=== PATIENT | male | born 1945 | race African-American/Black ===

== ENCOUNTER → 2017-11-24 12:41 | Outpatient (CLI) | payer MEDICARE, OTHER, SELFPAY ==
[2017-11-24 13:53] LABS: PSA,Total - Annual Screen 0.66 ng/mL (0.00-4.00)
== END ==
PROVIDERS: Family Provider Internal Medicine; PCP Internal Medicine; Visit Provider Urology
DX: Z12.5 Encounter for screening for malignant neoplasm of prostate (principal)
CPT/HCPCS: 36415; 84153; G0103

== ENCOUNTER → 2018-09-14 08:36 | Outpatient (CLI) | payer MEDICARE, OTHER, SELFPAY | PROVIDERS: Family Provider Internal Medicine; PCP Internal Medicine | DX: I12.9 Hypertensive chronic kidney disease with stage 1 through stage 4 chronic kidney disease, or unspecified chronic kidney disease (principal); N18.3 Chronic kidney disease, stage 3 (moderate); D63.1 Anemia in chronic kidney disease; R03.0 Elevated blood-pressure reading, without diagnosis of hypertension | CPT/HCPCS: 93788 ==

== ENCOUNTER → 2018-11-27 | Outpatient (CLI) | payer MEDICARE, OTHER, SELFPAY ==
[2018-04-05 08:04] VITALS: BMI 27.2
[2018-11-27 15:30] LABS: PSA,Total - Annual Screen 1.58 ng/mL (0.00-4.00)
== END | disposition home or self-care (01) ==
LOC: LAB 13:29
PROVIDERS: Family Provider Internal Medicine; PCP Internal Medicine; Referring Provider Urology; Visit Provider Urology
DX: Z12.5 Encounter for screening for malignant neoplasm of prostate (principal)
CPT/HCPCS: 36415; 84153; G0103

== ENCOUNTER → 2019-05-11 09:34 | Outpatient (CLI) | payer MEDICARE, OTHER, SELFPAY ==
[2019-04-26 16:10] VITALS: BMI 28.4
--- NOTE | 2019-05-11 09:36 | ECHOD_ITS ---
Reason For Study: THORACIC AORTIC ANEURYSM Procedure This was a 2D Doppler, Color Flow transthoracic echocardiogram. The study was technically difficult. Exam performed in department. Left Ventricle Normal LV size. Left ventricular systolic function is normal. The estimated ejection fraction is 65 %. No evidence for diastolic dysfunction. No regional wall motion abnormalities noted. Right Ventricle Normal RV size. Normal systolic function. Atria Normal left atrium. Normal right atrium. No doppler evidence for ASD. Mitral Valve There is no mitral annular calcification. Normal mitral valve. Trivial mitral valve insufficiency. Tricuspid Valve Normal tricuspid valve. Trivial tricuspid valve insufficiency. Unable to estimate RV systolic pressure/pulmonary artery pressure due to technically difficult study. Aortic Valve Trisinus/trileaflet aortic valve. Mild diffuse aortic valve thickening. Mild focal aortic valve calcification. Pulmonic Valve The pulmonic valve is not well visualized. Trivial pulmonic valve insufficiency. Great Vessels Normal sized aortic root. Pericardium/Pleural No pericardial effusion. MMode/2D Measurements & Calculations LVIDd: 4.7 cm IVSd: 0.93 cm Ao root diam: 3.6 cm LVIDs: 3.4 cm LVPWd: 0.98 cm RVDd: 2.7 cm FS: 26.9 % LAV(MOD-bp): 52.9 ml LA A4 area: 16.6 cm2 LA dimension(2D): 2.9 cm LAV(MOD-bp) Indexed: 25.4 ml/m2 LAV(MOD-sp2): 46.2 ml LAV(MOD-sp4): 47.5 ml RA A4 area: 14.1 cm2 Time Measurements MV dec time: 0.31 sec Doppler Measurements & Calculations MV E max satish: 60.4 cm/sec Lat Peak E' Satish: 9.6 cm/sec Med Peak E' Satish: 6.6 cm/sec MV A max satish: 88.7 cm/sec E/E' lat: 6.3 E/E' med: 9.1 MV E/A: 0.68 Ao V2 max: 112.5 cm/sec LV V1 max: 88.3 cm/sec PA V2 max: 91.8 cm/sec Ao max P.1 mmHg LV V1 max P.1 mmHg Interpretation Summary The study was technically difficult. Left ventricular systolic function is normal. The estimated ejection fraction is 65 %. Trivial mitral valve insufficiency. Mild diffuse aortic valve thickening. Mild focal aortic valve calcification. Trivial pulmonic valve insufficiency. Unable to estimate RV systolic pressure/pulmonary artery pressure due to technically difficult study. No evidence for diastolic dysfunction. Ordering Physician: Justin Bauman Referring Physician: Jesse Glover Performed By: Alee Almeida, AMBROSIOCS, RVT
--- NOTE | 2019-05-11 09:36 | ART_ITS ---
Reason For Study: Lower extremity numbness Procedure A bilateral lower extremity continuous wave Doppler with analog waveform analysis,segmental pressures,and ankle brachial indexes without exercise. Left Segmental Pressures Left brachial= 173mmHg. Left posterior tibial artery = 219mmHg. Left dorsalis pedis artery = 215mmHg. Left digit = 168 mmHg. The left dorsalis pedis waveforms are triphasic. The left posterior tibial artery waveforms are triphasic. Right Segmental Pressures Right brachial= 168mmHg. Right posterior tibial artery = 222mmHg. Right dorsalis pedis artery = 218mmHg. Right digit = 162 mmHg. The right dorsalis pedis waveforms are triphasic. The right posterior tibial artery waveforms are triphasic. Indices The right ankle brachial index by the dorsalis pedis is 1.26. The right ankle brachial index by the posterior tibial artery is 1.28. The right digital-brachial index is 0.94. The left ankle brachial index by the dorsalis pedis is 1.24. The left ankle brachial index by the posterior tibial artery is 1.27. The left digital-brachial index is 0.97. Interpretation Summary Resting ankle-brachial indices appear bilaterally normal. Normal bilateral lower extremity Doppler waveforms Normal bilateral lower extremity digital brachial indices Ordering Physician: Justin Bauman Referring Physician: Jesse Glover M.D. Performed By: Loly Reeves RVT
== END ==
PROVIDERS: Family Provider Internal Medicine; PCP Internal Medicine; Referring Provider Internal Medicine Cardiovascular Disease; Visit Provider Internal Medicine Cardiovascular Disease
DX: I71.2 Thoracic aortic aneurysm, without rupture (principal); R20.0 Anesthesia of skin; I08.3 Combined rheumatic disorders of mitral, aortic and tricuspid valves; I73.9 Peripheral vascular disease, unspecified
CPT/HCPCS: 93306; 93923

== ENCOUNTER → 2019-05-31 07:21 | Outpatient (CLI) | payer MEDICARE, OTHER, SELFPAY ==
[2019-04-26 16:10] VITALS: BMI 28.4
[2019-05-31 08:35] LABS: Anion Gap 3 (5-15); BUN 42 mg/dL (7-18); BUN/Creat Ratio 18.9 RATIO (10-20); Calcium,Total 9.2 mg/dL (8.5-10.1); Chloride 101 mmol/L (98-107); Creatinine, Serum 2.22 mg/dL (0.70-1.30); EST Glomerular Filtration Rate 31 mL/min (>60); Est Glom Filt Rate - Afr Amer 38 mL/min (>60); Glucose 417 mg/dL (74-106); Potassium 5.1 mmol/L (3.5-5.1); Sodium Level 134 mmol/L (136-145)
== END ==
PROVIDERS: Family Provider Internal Medicine; PCP Internal Medicine; Referring Provider Internal Medicine Cardiovascular Disease; Visit Provider Internal Medicine Cardiovascular Disease
DX: N18.3 Chronic kidney disease, stage 3 (moderate) (principal); I12.9 Hypertensive chronic kidney disease with stage 1 through stage 4 chronic kidney disease, or unspecified chronic kidney disease; I71.2 Thoracic aortic aneurysm, without rupture
CPT/HCPCS: 36415; 80048

== ENCOUNTER 2019-06-15 13:27 | Emergency (ER) | payer MEDICARE, OTHER, SELFPAY ==
[2019-04-26 16:10] VITALS: BMI 28.4
[2019-06-15 13:28] VITALS: BP 160/79; PULSE 66; RESP 17; TEMP 36.6; O2SAT 100; BMI 26.6
[2019-06-15 13:49] VITALS: BP 178/84; PULSE 64
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
--- NOTE | 2019-06-15 14:09 | EKG12_ITS ---
Test Reason : Blood Pressure : / mmHG Vent. Rate : 069 BPM Atrial Rate : 069 BPM P-R Int : 188 ms QRS Dur : 092 ms QT Int : 386 ms P-R-T Axes : 055 -38 019 degrees QTc Int : 413 ms Sinus rhythm with Premature atrial complexes Left axis deviation Minimal voltage criteria for LVH, may be normal variant Abnormal ECG Confirmed by MARIE VOSS, JIM ([id number]), videotape editor PA DODD ([id number]) on 06/18/2019 1:33:33 PM Referred By: FIFI Confirmed By:JIM SALAZAR MD
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
[2019-06-15] MEDS: Losartan Potassium 100 MG Tablet PO (14:51)
[2019-06-15 15:33] VITALS: BP 141/75; RESP 19
== END 2019-06-15 15:34 | disposition home or self-care (01) ==
PROVIDERS: Emergency Provider Emergency Medicine; Family Provider Internal Medicine; PCP Internal Medicine
DX: S44.92XA Injury of unspecified nerve at shoulder and upper arm level, left arm, initial encounter (principal); I12.9 Hypertensive chronic kidney disease with stage 1 through stage 4 chronic kidney disease, or unspecified chronic kidney disease; E11.22 Type 2 diabetes mellitus with diabetic chronic kidney disease; N18.3 Chronic kidney disease, stage 3 (moderate); K21.9 Gastro-esophageal reflux disease without esophagitis; V43.62XA Car passenger injured in collision with other type car in traffic accident, initial encounter; Y93.I9 Activity, other involving external motion; Y92.410 Unspecified street and highway as the place of occurrence of the external cause; Y99.8 Other external cause status
CPT/HCPCS: 71046; 72040; 93005; 99283

== ENCOUNTER → 2019-12-03 07:50 | Outpatient (CLI) | payer MEDICARE, OTHER, SELFPAY ==
[2019-11-08 13:14] VITALS: BMI 28.4
[2019-12-03 08:46] LABS: PSA,Total - Annual Screen 0.58 ng/mL (0.00-4.00)
--- OUTSIDE RECORDS SUMMARY | 2020-04-08 18:30 | XMS RPT_ITS | CCD ---
:1945 External Reference #:[id number] [facility] Care Team Providers Name Role Phone Jesse Glover Primary Care Provider JUAREZ, E Unavailable Unavailable JUAREZ, E Unavailable Unavailable JUAREZ Unavailable Unavailable JUAREZ Unavailable Unavailable Glover Unavailable Unavailable JUAREZ Unavailable Unavailable JUAREZ Unavailable Unavailable Adalberto Unavailable Unavailable Allergies Reported Allergen Reaction(s) Severity Date of Onset Location Cortisone Other: See Comments 05-09-2009 - [facility] CORTISONE, CORTISONE] ([id number] ) Lisinopril Intolerance 01-29-2009 - [facility] Transl[facility]: [facility] LISINOPRIL, ([id number]) LISINOPRIL] Medications Medication Name Sig Date Prescriber Location Aspirin aspirin(ECOTRIN LOW 03-07-2009 Jesse Glover [facility] STRENGTH 81 MG TAB) (15073) Indications: Type II or unspecified type diabetes mellitus without mention of complication, uncontrolled Take one(1) tablet daily. 0 03/07/2009 Active Comment: Take one(1) tablet daily. Blood-Glucose Meter Blood-Glucose Meter 12-25-2019 Jesse Vasquez [facility] monitoring kit monitoring kit Adalberto (26446) Indications: Type 2 DM with CKD stage 3 and hypertension (HCC) Glucose Meter of Choice - Kit - Dx: Type 2 DM - Uncontrolled E11.65 1 Each 0 12/25/2019 Active Blood-Glucose Meter monitoring 12-25-2019 Jesse velasco [facility] (44065) kit Indications: Type 2 DM with CKD stage 3 and hypertension (HCC) Glucose Meter of Choice - Kit - Dx: Type 2 DM - Uncontrolled E11.65 1 Each 0 12/25/2019 Active Blood-Glucose Meter monitoring 12-25-2019 Jesse velasco [facility] (32075) kit Indications: Type 2 DM with CKD stage 3 and hypertension (HCC) Glucose Meter of Choice - Kit - Dx: Type 2 DM - Uncontrolled E11.65 1 Each 0 12/25/2019 Active Blood-Glucose Meter monitoring 12-25-2019 Jesse Evanshomar [facility] (22459) kit Indications: Type 2 DM with CKD stage 3 and hypertension (HCC) Glucose Meter of Choice - Kit - Dx: Type 2 DM - Uncontrolled E11.65 1 Each 0 12/25/2019 Active Blood-Glucose Meter monitoring 12-25-2019 Jesse Evanshomar [facility] (58959) kit Indications: Type 2 DM with CKD stage 3 and hypertension (HCC) Glucose Meter of Choice - Kit - Dx: Type 2 DM - Uncontrolled E11.65 1 Each 0 12/25/2019 Active Blood-Glucose Meter monitoring 12-25-2019 Jesse Lara Rebecca [facility] (81733) kit Indications: Type 2 DM with CKD stage 3 and hypertension ([facility]) Glucose Meter of Choice - Kit - Dx: Type 2 DM - Uncontrolled E11.65 1 Each 0 12/25/2019 Active Blood-Glucose Meter monitoring 12-25-2019 Jesse Evanshomar [facility] (65696) kit Indications: Type 2 DM with CKD stage 3 and hypertension (HCC) Glucose Meter of Choice - Kit - Dx: Type 2 DM - Uncontrolled E11.65 1 Each 0 12/25/2019 Active Blood-Glucose Meter monitoring 12-25-2019 Jesse Fernandez [facility] (47970) kit Indications: Type 2 DM with CKD stage 3 and hypertension (HCC) Glucose Meter of Choice - Kit - Dx: Type 2 DM - Uncontrolled E11.65 1 Each 0 12/25/2019 Active Comment: Glucose Meter of Choice - Ki t - Dx: Type 2 DM - Uncontrolled E11.65 carvedilol carvedilol (COREG) 25 09-20-2019 - [facility] mg tablet Indications: 03-18-2020 Adalberto (4419 5) Screening for genitourinary condition , Hypertension goal BP (blood pressure) , CKD (chronic kidney disease) stage 3, GFR 30-59 ml/min Take 1.5 tablets by mouth twice daily with meals. 270 tablet 3 09/20/2019 Active Comment: Take 1.5 tablets by mouth tw ice daily with meals. Chlorthalidone chlorthalidone 09-20-2019 Jesse Glover [facility] (HYGROTON) 25 mg tablet (441 95) Indications: Screening for genitourinary condition , Hypertension goal BP (blood pressure) , CKD (chronic kidney disease) stage 3, GFR 30-59 ml/min Take 1 tablet by mouth once daily. 90 tablet 3 09/20/2019 Active Comment: Take 1 tablet by mouth once daily. Cholecalciferol cholecalciferol (VITAMIN 07-31-2018 Jaleesa (Fel) [facility] D) 1,000 unit tab tablet Kris (44 195) Indications: Screening for genitourinary condition , CKD (chronic kidney disease) stage 3, GFR 30-59 ml/min , Type 2 DM with CKD stage 3 and hypertension (HCC) , Hypertension goal BP (blood pressure) , Mixed hyperlipidemia , Type 2 diabetes, uncontrolled, with retinopathy (HCC) , Vitreous hemorrhage, unspecified laterality (HCC) , Other proteinuria , BPH with obstruction/lower urinary tract symptoms Take 1 tablet by mouth once daily. 30 tablet 3 07/31/2018 Active Comment: Take 1 tablet by mouth once daily. cloNIDine cloNIDine HCl 09-20-2019 - Jesse Lara [facility] (CATAPRES) 0.2 mg 03-18-2020 Adalberto (13396) tablet Indications: Hypertension goal BP (blood pressure) , Screening for genitourinary condition , CKD (chronic kidney disease) stage 3, GFR 30-59 ml/min Take 1 tablet by mouth twice daily. 180 tablet 3 09/20/2019 Active Comment: Take 1 tablet by mouth twice daily. Diclofenac diclofenac sodium 07-17-2019 Martinez (Pa) [facility] (VOLTAREN) 1 % topical Vetovitz (4419 5) gel Indications: Olecranon bursitis of left elbow Apply 2 g to affected area four times daily. 200 g 1 01/14/2020 Active Comment: Apply 2 g to affected area f our times daily. fluorescein-benoxinate fluorescein-benoxinate 03-06-2020 - Adia [facility] 0.25-0.4 % 1 Drop 0.25-0.4 % 1 Drop 03-06-2020 [facility] (FLURESS) (FLURESS) (96753) Furosemide furosemide (LASIX) 40 mg 12-27-2019 [place] (Phonograph Mechanic) [facility] tablet Take 1 tablet by [facility] mouth once daily. 90 (54870) tablet 3 12/27/2019 Active Comment: Take 1 tablet by mouth once daily. gabapentin gabapentin (NEURONTIN) 09-20-2019 Jesse Glover [facility] 100 mg capsule (39601) Indications: Diabetic polyneuropathy associated with diabetes mellitus due to underlying condition (HCC) Take 2 capsules by mouth daily at bedtime. From podiatry (Dr. Cordon) 0 09/20/2019 Active Comment: Take 2 capsules by mouth tamika ly at bedtime. From podiatry (Dr. Cordon) Insulin Lispro / insulin 75/25 lispro 10-12-2019 Chanda (Regulatory Analyst) [facility] Insulin, protamine/lispro [facility] (07516) Protamine Lispro, units/mL (HUMALOG MIX Human 75-25 KWIKPEN) 100 unit/mL (75-25) inpn Inject 20 units breakfast and 20 units dinner 15 mL 5 10/12/2019 Active Comment: Inject 20 units breakfast an d 20 units dinner latanoprost latanoprost (XALATAN) 05-29-2019 Trudy Wilson [facility] 0.005 % ophthalmic (81070) solution Use 1 Drop in both eyes daily at bedtime. 1 Bottle 1 05/29/2019 Active Comment: Use 1 Drop in both eyes trevin y at bedtime. Linagliptin linaGLIPtin 03-31-2017 - Chanda (Regulatory Analyst) [facility] (TRADJENTA) 5 mg tab 02-05-2020 [facility] (71119) Take 1 tablet by mouth once daily. 30 tablet 5 02/05/2020 Active Comment: Take 1 tablet by mouth once daily. Take 5 mg by mouth once trevin y. Losartan losartan (COZAAR) 100 mg 03-10-2020 Jesse Woodson [facility] tablet TAKE 1 TABLET (56931) EVERY DAY BY MOUTH 30 tablet 03/10/2020 Active losartan (COZAAR) 100 mg tablet 12-04-2018 [place] (Phonograph Mechanic) [facility] (41655) TAKE 1 TABLET EVERY DAY BY MOUTH 30 tablet 11 12/04/2018 Active Comment: TAKE 1 TABLET EVERY DAY BY M OUTH metFORMIN metFORMIN ER 10-12-2019 Chanda (Regulatory Analyst) [facility]UC[facility] 500 mg (4419 5) 24 hr tablet Take 1 tablet by mouth daily with breakfast. 90 tablet 1 10/12/2019 Active Comment: Take 1 tablet by mouth daily with breakfast. NIFEdipine NIFEdipine ER (PROCARDIA 09-20-2019 Jesse rodriguez [facility] XL) 90 mg 24 hr tablet (4419 5) Indications: Screening for genitourinary condition , CKD (chronic kidney disease) stage 3, GFR 30-59 ml/min , Type 2 DM with CKD stage 3 and hypertension (HCC) , Secondary hypertension due to renal disease , Mixed hyperlipidemia Take 1 tablet by mouth once daily. 90 tablet 3 09/20/2019 Active Comment: Take 1 tablet by mouth once daily. Phenylephrine PHENYLephrine 2.5 % 1 03-06-2020 - Adia Yip [facility] Drop (AK-DILATE, 03-06-2020 (23154) PATI-SYNEPHRINE) Pravastatin pravastatin (PRAVACHOL) 07-31-2019 [place] (Phonograph Mechanic) [facility] 80 mg tablet Take 1 Older (66512) tablet by mouth once daily. For cholesterol. 90 tablet 3 07/31/2019 Active Comment: Take 1 tablet by mouth once daily. For cholesterol. proparacaine proparacaine 0.5 % 1 03-06-2020 - Adia Yip [facility] Drop (ALCAINE) 03-06-2020 (54359) Timolol timoloL maleate 05-29-2019 - [facility] (TIMOPTIC) 0.5 % 03-05-2020 (84418) ophthalmic solution INSTILL 1 DROP IN BOTH EYES TWICE A DAY (USE AT 6 A.M. AND 6 P.M.) 25 mL 2 03/05/2020 Active Comment: Use 1 Drop in both eyes twic e daily. Use at 6 AM and 6 PM INSTILL 1 DROP IN BOTH EYES TWICE A DAY (USE AT 6 A.M. AND 6 P.M.) Tropicamide tropicamide 1 % 1 Drop 03-06-2020 - dAia Yip [facility] (MYDRIACYL) 03-06-2020 (22197) Vitamin B 12 cyanocobalamin 01-06-2018 [facility] (VITAMIN B-12) 1,000 [facility] (10607) mcg tab Indications: Diabetic polyneuropathy associated with diabetes mellitus due to underlying condition (HCC) Take 1 tablet by mouth once daily. 0 01/06/2018 Active Comment: Take 1 tablet by mouth once daily. Problems Active Problems Category Problem Name Status Date Location Cataract Bilateral pseudophakia Active 06-22-2019 - [facility] (80382) Deficiency and other Anemia of chronic disease Active [facility] anemia (26920) Diabetes mellitus with Diabetic polyneuropathy Active - [facility] complications (53660) Diabetes mellitus Type 2 diabetes mellitus Active 04-18-2017 - [facility] without complication (15369) Disorders of lipid Hyperlipidemia Active [facility] metabolism (65586) Essential hypertension Hypertensive disorder Active [facility] (40886) 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 - [facility] glaucoma, right eye, severe (63358) stage Hyperplasia of Benign prostatic Active 02-12-2009 - [facility] prostate hypertrophy with outflow (44 195) obstruction Hypertension with Renal hypertension Active 03-28-2018 - [facility] complications and (64190) secondary hypertension Inflammation; Punctate keratitis, Active 06-22-2019 - [facility] infection of eye bilateral (21418) (except that caused by tuberculosis or sexually transmitteddisease) Open wounds of Laceration without foreign Active [facility] extremities body, left lower leg, (95406 ) subsequent encounter Other connective Bursitis of olecranon of Active [facility] tissue disease left elbow (38772) Other diseases of 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 disorders (69037) Other and unspecified Tubular adenoma of Completed 08-10-2016 - [facility] benign neoplasm colon (49510) Unclassified Recheck 08-08-2017 - [facility] (57134) Results Result Name Value Range Unit Interpretation Flag Date Location No panel information on null [facility] (22069) progress on 2020-03 PROGRESS HNO ID: [id number] Normal 04-07-2020 [facility] Author: Michelle William ([place]) [place] Service: ? ([id number]) Author Type: Physician Cattle Sticker Type: Progress Notes Filed: 04/07/2020 10:10 AM Note Text: Michelle William PA-C Department of Orthopaedics Orthopaedics [address] [facility] [address] Dept: [phone] Dept April 07, 2020 CHIEF COMPLAINT: Follow Up of the Left Elbow and 8 weeks 6 d ays post visit olecranon bursitis left elbow Mr. Shirin West Sr. is a 75 year old male he presents with resolved left elbow swelling. Patient states that a few months ago his lef t elbow became very swollen, it was not painful but the swelling was bothersome to him. We had him try some topical tear and an apply a keyla melo sleeve to the elbow. We also discussed having him avoid resting the elbow on hard surfaces. Patient cannot tolerate NSAIDs secondary to c hronic kidney disease. He is a diabetic, his last hemoglobin A1c was 7.0 i n November. He is retired and enjoys being active. ASSESSMENT: M70.22 Olecranon bursitis of left elbow (primary encounter d iagnosis) PLAN: The swelling did resolve with conservative treatment. We discussed only trying the topical if he feels the swelling has returne d. We also discussed signs and symptoms of infection. Follow-up as need ed. Mr. Shirin West Sr. was advised as to contrast therapies an d/or to take analgesics/anti-inflammatories as needed and all contraindic ations were reviewed. OBJECTIVE: Mr. Shirin West Sr. is a pleasant 75 year old in no apparen t distress. Gen:There were no vitals taken for this visit. nl development, non obese, no deformities ENT: Normocephalic, normal hearing, moist mucosa CV: Pulses:Radial= 2+ and symmetric, capillary refill < 2 se cs, no peripheral edema/varicosities Skin: no rash, bruising or lesions. Good turgor. Psych: cooperative and appropriate, alert and oriented x 3, good mood and affect. Musculoskeletal: Left elbow with no swelling in the olecranon bursa. Elbow is nontender to the touch. Patient has full and active range of motion of th e elbow. Sensation is intact. Imaging: Deferred today Supporting Subjective Information Below: Past Surgical History: PAST SURGICAL HISTORY Procedure Laterality Date - AVASTIN (BEVACIZUMAB) 1.25MG INTRAVITREAL INJECTION OD (RI GHT EYE) Right 04/19/2018 LAST - COLONOS W/REM POLYP SNARE 08/04/2016 Repeat 07/2019 - COLONOSCOP W/ OR W/O BRSH SPEC Colonoscopy - COLONOSCOPY W/BX 07/25/13 Repeat due 2016 - EGD W/O OR W/BRUSH/WASH 2002 EGD - EYE SURGERY HX Right 05/02/2018 Pars plana vitrectomy, membrane peel, endolaser, and air flu id exchange right eye. - LAPAROSCOPIC CHOLEYCYSTECTOMY Cholecystectomy, lap - PANRETINAL PHOTOCOAGULATION (PRP) OD (RIGHT EYE) Right 10/2014 LAST ; PRP (Panretinal Photocoagulation) OD - PANRETINAL PHOTOCOAGULATION (PRP) OS (LEFT EYE) Left 07/12 #2 ; PRP (Panretinal Photocoagulation) OS - PROSTATECTOMY SUPRAPUBIC SUBTOTAL for BPH - REMV CATARACT EXTRACAP,INSERT LENS 02/07/2007 Cataract Removal right - REMV CATARACT EXTRACAP,INSERT LENS Left 11/16/2016 Cataract Extraction with PC IOL OS - REPAIR ROTATOR CUFF,ACUTE 2008 Rotator cuff repair, Right - VITRECTOMY,MECHANICAL Left 11/16/2016 PPV/MP/EL/AFX OS Medications: Current Outpatient Medications Medication Sig - losartan (COZAAR) 100 mg tablet TAKE 1 TABLET EVERY DAY BY MOUTH - timoloL maleate (TIMOPTIC) 0.5 % ophthalmic solution INSTI LL 1 DROP IN BOTH EYES TWICE A DAY (USE AT 6 A.M. AND 6 P.M.) - linaGLIPtin (TRADJENTA) 5 mg tab Take 1 tablet by mouth on ce daily. - diclofenac sodium (VOLTAREN) 1 % topical gel Apply 2 g to affected area four times daily. - furosemide (LASIX) 40 mg tablet Take 1 tablet by mouth onc e daily. - blood sugar diagnostic (BLOOD GLUCOSE TEST) test strip Mayela t blood sugar(s) 4 times daily. Dx: Type 2 DM - Uncontrolled Insulin: Yes - Lancets lancets Test blood sugar(s) 4 times daily. Dx: Typ e 2 DM - Uncontrolled Insulin: Yes - insulin 75/25 lispro protamine/lispro units/mL (HUMALOG GA X 75-25 KWIKPEN) 100 unit/mL (75-25) inpn Inject 20 units breakfast and 20 units dinner - metFORMIN ER (GLUCOPHAGE XR) 500 mg 24 hr tablet Take 1 ta blet by mouth daily with breakfast. - NIFEdipine ER (PROCARDIA XL) 90 mg 24 hr tablet Take 1 tab let by mouth once daily. - chlorthalidone (HYGROTON) 25 mg tablet Take 1 tablet by mo uth once daily. - carvedilol (COREG) 25 mg tablet Take 1.5 tablets by mouth twice daily with meals. - cloNIDine HCl (CATAPRES) 0.2 mg tablet Take 1 tablet by mo uth twice daily. - gabapentin (NEURONTIN) 100 mg capsule Take 2 capsules by m outh daily at bedtime. From podiatry (Dr. Cordon) - pravastatin (PRAVACHOL) 80 mg tablet Take 1 tablet by mout h once daily. For cholesterol. - diclofenac sodium (VOLTAREN) 1 % topical gel Apply 2 g to affected area four times daily. - latanoprost (XALATAN) 0.005 % ophthalmic solution Use 1 Dr op in both eyes daily at bedtime. - Insulin Broad Top, Disposable, (1ST TIER UNIFINE PENTIPS) 31 gauge x 3/16 ndle Use as directed 4 times a day. Dx: - cholecalciferol (VITAMIN D) 1,000 unit tab tablet Take 1 t ablet by mouth once daily. - BD INSULIN PEN NEEDLE UF 31 gauge x 5/16 ndle 1 Applicato r as directed. - cyanocobalamin (VITAMIN B-12) 1,000 mcg tab Take 1 tablet by mouth once daily. - aspirin(ECOTRIN LOW STRENGTH 81 MG TAB) Take one(1) tablet daily. - Blood-Glucose Meter monitoring kit Glucose Meter of Choice - Kit - Dx: Type 2 DM - Uncontrolled E11.65 No current facility-administered medications for this visit. Allergies: Cortisone and Zestril [Lisinopril] ROS: General (negative for fatigue, malaise, weight loss/gain) HEENT (negative for headache, earache, recent vision changes , sinus pain, sore throat) Respiratory (no recent shortness of breath, hem optysis) CV (negative for chest tightness, palpitations) Musculoskeletal (see HPI) Psych (no depression, anxiety) This note was partially generated using Virtual Call Center system, and there may be some incorrect words, spellings, and punctu ation that were not noted in checking the note before saving. Michelle William PA-C PROGRESS HNO ID: [id number] Normal 04-07-2020 [facility] Author: Rehana Gaona Ma [place] Service: ? ([id number]) Author Type: ? Type: Progress Notes Filed: 04/07/2020 10:10 AM Note Text: Patient presents with: Left Elbow - Follow Up 8 weeks 6 days post visit olecranon bursitis left elbow AMB ROOMING INTAKE FLOWSHEET DATA Risk Screening Do you have concerns about personal safety or safety in the home?: No Patient states his swelling is down. Has an dallin wrap to wrap his elbow. Has been applying Voltaren gel as needed. cnov on 2020-04-07 CNOV Office Visit (ORTHWS) Normal 04-07-[address] [place] [address] SHIRIN Whipple SR. ([id number]) 1945 M [place] Date Time Provider Department ([id number]) 04/07/20 9:30 AM MICHELLE WILLIAM) SARY During your visit today, we recorded the following informati on about you: Rehana Gaona Ma 04/07/2020 10:10 AM Signed Patient presents with: Left Elbow - Follow Up 8 weeks 6 days post visit olecranon bursitis left elbow AMB ROOMING INTAKE FLOWSHEET DATA Risk Screening Do you have concerns about personal safety or safety in the home?: No Patient states his swelling is down. Has an dallin wrap to wr ap his elbow. Has been applying Voltaren gel as needed. Michelle William PA-C 04/07/2020 10:10 AM Signed Michelle William PA-C Department of Orthopaedics Orthopaedics [address] [facility] [address] Dept: [phone] Dept April 07, 2020 CHIEF COMPLAINT: Follow Up of the Left Elbow and 8 weeks 6 d ays post visit olecranon bursitis left elbow Mr. Shirin West Sr. is a 75 year old male he presents with resolved left elbow swelling. Patient states that a few months ago his left elbo w became very swollen, it was not painful but the swel ling was bothersome to him. We had him try some topical tear and an apply a compression sleeve to the elbow. We also discussed having him avoid resting the elbow on hard surfaces. Patient cannot tolerate NSAIDs secondary to chronic kidney disease. He is a diabetic, his last hemoglobin A1c was 7.0 in November. He is retired and enj oys being active. ASSESSMENT: M70.22 Olecranon bursitis of left elbow (primary encounter d iagnosis) PLAN: The swelling did resolve with conservative treatment. We discussed only trying the topical if he feels the swelling has returned. We also discussed signs and symptoms of infection. Follow-up as needed. Mr. Shirin West Sr. was advised as to contrast therapies an d/or to take analgesics/anti-inflammatories as needed and all contraindic ations were reviewed. OBJECTIVE: Mr. Shirin West Sr. is a pleasant 75 year old in no apparen t distress. Gen:There were no vitals taken for this visit. nl development, non obese, no deformities ENT: Normocephalic, normal hearing, moist mucosa CV: Pulses:Radial= 2+ and symmetric, capillary r efill < 2 secs, no peripheral edema/varicosities Skin: no rash, bruising or lesions. Good turgor. Psych: cooperative and appropriate, alert and oriented x 3, good mood and affect. Musculoskeletal: Left elbow with no swelling in the olecranon bur sa. Elbow is nontender to the touch. Patient has full and active range of luis on of the elbow. Sensation is intact. Imaging: Deferred today Supporting Subjective Information Below: Past Surgical History: PAST SURGICAL HISTORY Procedure Laterality Date - AVASTIN (BEVACIZUMAB) 1.25MG INTRAVITREAL INJECTION OD (RI GHT EYE) Right 04/19/2018 LAST - COLONOS W/REM POLYP SNARE 08/04/2016 Repeat 07/2019 - COLONOSCOP W/ OR W/O BRSH SPEC Colonoscopy - COLONOSCOPY W/BX 07/25/13 Repeat due 2016 - EGD W/O OR W/BRUSH/WASH 2002 EGD - EYE SURGERY HX Right 05/02/2018 Pars plana vitrectomy, membrane peel, endolaser, and air fluid exchange right eye. - LAPAROSCOPIC CHOLEYCYSTECTOMY Cholecystectomy, lap - PANRETINAL PHOTOCOAGULATION (PRP) OD (RIGHT EYE) Right 10/2014 LAST ; PRP (Panretinal Photocoagulation) OD - PANRETINAL PHOTOCOAGULATION (PRP) OS (LEFT EYE) Left 07/12 #2 ; PRP (Panretinal Photocoagulation) OS - PROSTATECTOMY SUPRAPUBIC SUBTOTAL for BPH - REMV CATARACT EXTRACAP,INSERT LENS 02/07/2007 Cataract Removal right - REMV CATARACT EXTRACAP,INSERT LENS Left 11/16/2016 Cataract Extraction with PC IOL OS - REPAIR ROTATOR CUFF,ACUTE 2008 Rotator cuff repair, Right - VITRECTOMY,MECHANICAL Left 11/16/2016 PPV/MP/EL/AFX OS Medications: Current Outpatient Medications Medication Sig - losartan (COZAAR) 100 mg tablet TAKE 1 TABLET EVERY DAY BY MOUTH - timoloL maleate (TIMOPTIC) 0.5 % ophthalmic so lution INSTILL 1 DROP IN BOTH EYES TWICE A DAY (USE AT 6 A.M. AND 6 P.M.) - linaGLIPtin (TRADJENTA) 5 mg tab Take 1 tablet by mouth on ce daily. - diclofenac sodium (VOLTAREN) 1 % topic al gel Apply 2 g to affected area four times daily. - furosemide (LASIX) 40 mg tablet Take 1 tablet by mouth onc e daily. - blood sugar diagnostic (BLOOD GLUCOSE TEST) test strip Test blood sugar(s) 4 times daily. Dx: Type 2 DM - Uncontrolled Insulin: Ye s - Lancets lancets Test blood sugar(s) 4 times daily. Dx: Typ e 2 DM - Uncontrolled Insulin: Yes - insulin 75/25 lispro protamine/lispro units/mL (CRISTINA LOG MIX 75-25 KWIKPEN) 100 unit/mL (75-25) inpn Inject 20 units breakfast and 20 un its dinner - metFORMIN ER (GLUCOPHAGE X R) 500 mg 24 hr tablet Take 1 tablet by mouth daily with breakfast. - NIFEdipine ER (PROCARDIA XL) 90 mg 24 hr table t Take 1 tablet by mouth once daily. - chlorthalidone (HYGROTON) 25 mg tablet Take 1 tablet by mouth once daily. - carvedilol (COREG) 25 mg tablet Take 1.5 tablets by mouth twice daily with meals. - cloNIDine HCl (CATAPRES) 0.2 mg tablet Take 1 tablet by mouth twice daily. - gabapentin (NEURONTIN) 100 mg capsule Take 2 capsules by m outh daily at bedtime. From podiatry (Dr. Cordon) - pravastatin (PRAVACHOL) 80 mg tablet Take 1 ta blet by mouth once daily. For cholesterol. - diclofenac sodium (VOLTAREN) 1 % topic al gel Apply 2 g to affected area four times daily. - latanoprost (XALATAN) 0.005 % ophthalmic solution Use 1 Drop in both eyes daily at bedtime. - Insulin Broad Top, Disposabl e, (1ST TIER UNIFINE PENTIPS) 31 gauge x 3/16 ndle Use as directed 4 times a day. Dx: - cholecalciferol (VITAMIN D ) 1,000 unit tab tablet Take 1 tablet by mouth once daily. - BD INSULIN PEN NEEDLE UF 31 gauge x 5/16 ndle 1 Applicato r as directed. - cyanocobalamin (VITAMIN B-12) 1,000 mcg tab Take 1 tablet by mouth once daily. - aspirin(ECOTRIN LOW STRENGTH 81 MG TAB) Take one(1) tablet daily. - Blood-Glucose Meter monitoring kit Glucose Met er of Choice - Kit - Dx: Type 2 DM - Uncontrolled No current facility-administered medications for this visit. Allergies: Cortisone and Zestril [Lisinopril] ROS: General (negative for fatigue, malaise, weight loss/gain) HEENT (negative for headache, earache, r ecent vision changes, sinus pain, sore throat) Respiratory (no recent shortness of breath, hemoptys is) CV (negative for chest tightness, palpitations) Musculoskeletal (see HPI) Psych (no depression, anxiety) This note was partially generated using GenePeeksnition system, and there may be some incorrect words, spellings, and punctuat ion that were not noted in checking the note before saving. Michelle William PA-C Referring Provider: SELF [[id number]] Allergies As of Date: 04/07/2020 Noted Allergy Reaction CORTISONE 05/09/2009 14 - Other: See Comments Comments: [place] real hot, as if someone threw boiling water o n him ZESTRIL (LISINOPRIL) 01/29/2009 5 - Intolerance Comments: ARF, hypokalemia Date Reviewed: 04/07/2020 Reviewed by: Michelle William (Pa) - Fully Assessed Reason for Visit: 8 weeks 6 days post visit olecranon bursitis left elbow [Oth er] Follow Up [171] Primary Visit Diagnosis:Olecranon bursitis of left elbow [M7 0.22] Prescriptions as of 04/07/2020 Sig: LOSARTAN 100 MG TABLET TAKE 1 TABLET EVERY DAY BY MO* TIMOLOL MALEATE 0.5 % EYE PA* INSTILL 1 DROP IN BOTH EYES T * LINAGLIPTIN 5 MG TABLET Take 1 tablet by mouth once d* DICLOFENAC 1 % TOPICAL GEL Apply 2 g to affected area fo* FUROSEMIDE 40 MG TABLET Take 1 tablet by mouth once d* BLOOD GLUCOSE TEST STRIPS Test blood sugar(s) 4 times d* LANCETS Test blood sugar(s) 4 times d* HUMALOG MIX 75-25 KWIKPEN U-1* Inject 20 units breakfast and * METFORMIN ER 500 MG TABLET,EX* Take 1 tablet by mouth daily * NIFEDIPINE ER 90 MG TABLET,EX* Take 1 tablet by mouth once d * CHLORTHALIDONE 25 MG TABLET Take 1 tablet by mouth once d* CARVEDILOL 25 MG TABLET Take 1.5 tablets by mouth twi* CLONIDINE HCL 0.2 MG TABLET Take 1 tablet by mouth twice * GABAPENTIN 100 MG CAPSULE Take 2 capsules by mouth trevin* PRAVASTATIN 80 MG TABLET Take 1 tablet by mouth once d* DICLOFENAC 1 % TOPICAL GEL Apply 2 g to affected area fo* LATANOPROST 0.005 % EYE DROPS Use 1 Drop in both eyes daily* PEN NEEDLE, DIABETIC 31 GAUGE* Use as directed 4 times a day * CHOLECALCIFEROL (VITAMIN D3) * Take 1 tablet by mouth once d * BD ULTRA-FINE SHORT PEN NEEDL* 1 Applicator as directed. CYANOCOBALAMIN (VIT B-12) 1,0* Take 1 tablet by mouth once d * ECOTRIN LOW STRENGTH 81 MG TA* Take one(1) tablet daily. BLOOD-GLUCOSE METER KIT Glucose Meter of Choice - Kit* Problem List As Of Date 04/07/2020 Noted Resolved Asthma [J45.909] 07/07/2015 Anemia in stage 3 chronic kidney disease (HCC) * Hypertension goal BP (blood pressure) < 140/90 * Hyperlipidemia [E78.5] Polyneuropathy in diabetes ([facility]) [E11.42] 07/27/2005 DIABETES MELLITUS TYPE II UNCONTR UNCOMPL [IMO0*07/27/2005 0 08/09/2008 More... Erectile dysfunction associated with type 2 diaz*07/09/2008 Overweight [E66.3] 07/09/2008 Other specified gastritis without mention of he*09/18/2008 0 07/07/2015 BPH w/o urinary obs/LUTS [N40.0] 09/18/2008 09/08/2011 Background diabetic retinopathy(362.01) ([facility]) [*09/18/2008 0 06/30/2015 Shoulder pain [M25.519] 09/25/2008 03/09/2011 More... 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] 06/22/2019 Pseudophakia of both eyes [Z96.1] 06/22/2019 Type 2 diabetes mellitus with diabetic polyneur*10/11/2019 Type 2 diabetes mellitus with stage 3 chronic k*10/11/2019 Encounter Status:Closed by MICHELLE WILLIAM PA-C on 04/07/20 progress on 2020-03 PROGRESS HNO ID: [id number] Normal 04-01-2020 [facility] Author: Marisa (Network Navigator) Ele Vincent ([id number]) Service: ? Author Type: Insole Lip Turner Type: Progress Notes Filed: 04/01/2020 1:56 PM Note Text: POPULATION HEALTH NAVIGATION OUTREACH Action/FYI ACO Care Gap Outreach LMOVM Care Gaps needed are listed in below note. Encounter closed. Contact made with patient? NO Pt identified by name and : NO Outreach Outcome/Action Unable to reach patient: Left message Reason for Outreach Care Gap Payer: Payor: MEDICARE / Plan: MEDICARE A AND B / Product Type: Med icare / Care Gap Addressed: Controlling Blood Pressure Colorectal Cancer Screening HBA1C Reminder: Please only focus on orders for the HEDIS items ab ove Health Maintenance items due: ADVANCE DIRECTIVE DISCUSSION due on 02/07/2012 SHINGRIX VACCINE(2 of 3) due on 06/10/2014 COLONOSCOPY due on 08/04/2019 INFLUENZA(1) due on 02/26/2020 DIABETIC FOOT EXAM due on 04/28/2020 Referrals: N/A Message Sent to Practice: NO Navigation Signature: SIDNEY Schumacher April 01, 2020 1:53 PM progress on 2020-03 PROGRESS HNO ID: [id number] Normal 03-28-2020 [facility] Author: Marisa ByrneNetwork oRmaine) Ele [place] ([id number]) Service: ? Author Type: Insole Lip Turner Type: Progress Notes Filed: 04/01/2020 1:56 PM Note Text: POPULATION HEALTH NAVIGATION OUTREACH Action/ ACO Care Gap Outreach LMOVM Last PCP visit: 10/04/2019 BP: 156/69 Return visit recommended: 4 mos Next Scheduled PCP visit: 04/22/2020 Care Gaps needed are listed in below note. Contact made with patient? NO Pt identified by name and : NO Outreach Outcome/Action Unable to reach patient: Left message Reason for Outreach Care Gap Payer: Payor: MEDICARE / Plan: MEDICARE A AND B / Product Type: Med icare / Care Gap Addressed: Controlling Blood Pressure Colorectal Cancer Screening HBA1C Reminder: Please only focus on orders for the HEDIS items ab ove Health Maintenance items due: ADVANCE DIRECTIVE DISCUSSION due on 02/07/2012 SHINGRIX VACCINE(2 of 3) due on 06/10/2014 COLONOSCOPY due on 08/04/2019 INFLUENZA(1) due on 02/26/2020 DIABETIC FOOT EXAM due on 04/28/2020 Referrals: N/A Message Sent to Practice: NO Navigation Signature: SIDNEY Schumacher March 28, 2020 3:34 PM cnptoutreach on CNPTOUTREACH Patient Outreach (NETNAV) Normal 1 [place] SHIRIN Whipple SR. ([id number]) 1945 [facility] Date Time Provider Department ([id number]) 03/28/20 MARISA MARLOW)NETTYREL During your visit today, we recorded the following informati on about you: SIDNEY Schumacher 04/01/2020 1:56 PM Nicole d POPULATION HEALTH NAVIGATION OUTREACH Action/I ACO Care Gap Outreach LMOVM Last PCP visit: 10/04/2019 BP: 156/69 Return visit recommended: 4 mos Next Scheduled PCP visit: 04/22/2020 Care Gaps needed are listed in below note. Contact made with patient? NO Pt identified by name and : NO Outreach Outcome/Action Unable to reach patient: Left message Reason for Outreach Care Gap Payer: Payor: MEDICARE / Plan: MEDICARE A AND B / Product Type: Med icare / Care Gap Addressed: Controlling Blood Pressure Colorectal Cancer Screening HBA1C Reminder: Please only focus on orders for the HEDIS items ab ove Health Maintenance items due: ADVANCE DIRECTIVE DISCUSSION due on 02/07/2012 SHINGRIX VACCINE(2 of 3) due on 06/10/2014 COLONOSCOPY due on 08/04/2019 INFLUENZA(1) due on 02/26/2020 DIABETIC FOOT EXAM due on 04/28/2020 Referrals: N/A Message Sent to Practice: NO Navigation Signature: SIDNEY Schumacher March 28, 2020 3:34 PM SIDNEY Schumacher 04/01/2020 1:56 PM Nicole hart POPULATION HEALTH NAVIGATION OUTREACH Action/FYI ACO Care Gap Outreach LMOVM Care Gaps needed are listed in below note. Encounter closed. Contact made with patient? NO Pt identified by name and : NO Outreach Outcome/Action Unable to reach patient: Left message Reason for Outreach Care Gap Payer: Payor: MEDICARE / Plan: MEDICARE A AND B / Product Type: Med icare / Care Gap Addressed: Controlling Blood Pressure Colorectal Cancer Screening HBA1C Reminder: Please only focus on orders for the HEDIS items ab ove Health Maintenance items due: ADVANCE DIRECTIVE DISCUSSION due on 02/07/2012 SHINGRIX VACCINE(2 of 3) due on 06/10/2014 COLONOSCOPY due on 08/04/2019 INFLUENZA(1) due on 02/26/2020 DIABETIC FOOT EXAM due on 04/28/2020 Referrals: N/A Message Sent to Practice: NO Navigation Signature: SIDNEY Schumacher April 01, 2020 1:53 PM Allergies As of Date: 03/28/2020 Noted Allergy Reaction CORTISONE 05/09/2009 14 - Other: See Comments Comments: [place] real hot, as if someone threw boiling water o n him ZESTRIL (LISINOPRIL) 01/29/2009 5 - Intolerance Comments: ARF, hypokalemia Date Reviewed: 03/13/2020 Reviewed by: Semaj Benton Ma - Fully Assessed Reason for Visit: Population Health Navigation Outreach [[id number]] Cmt: VIVEK [place] Prescriptions as of 03/28/2020 Sig: LOSARTAN 100 MG TABLET TAKE 1 TABLET EVERY DAY BY MO* TIMOLOL MALEATE 0.5 % EYE PA* INSTILL 1 DROP IN BOTH EYES T * LINAGLIPTIN 5 MG TABLET Take 1 tablet by mouth once d* DICLOFENAC 1 % TOPICAL GEL Apply 2 g to affected area fo* FUROSEMIDE 40 MG TABLET Take 1 tablet by mouth once d* BLOOD GLUCOSE TEST STRIPS Test blood sugar(s) 4 times d* LANCETS Test blood sugar(s) 4 times d* HUMALOG MIX 75-25 KWIKPEN U-1* Inject 20 units breakfast and * METFORMIN ER 500 MG TABLET,EX* Take 1 tablet by mouth daily * NIFEDIPINE ER 90 MG TABLET,EX* Take 1 tablet by mouth once d * CHLORTHALIDONE 25 MG TABLET Take 1 tablet by mouth once d* GABAPENTIN 100 MG CAPSULE Take 2 capsules by mouth trevin* PRAVASTATIN 80 MG TABLET Take 1 tablet by mouth once d* DICLOFENAC 1 % TOPICAL GEL Apply 2 g to affected area fo* LATANOPROST 0.005 % EYE DROPS Use 1 Drop in both eyes daily* PEN NEEDLE, DIABETIC 31 GAUGE* Use as directed 4 times a day * CHOLECALCIFEROL (VITAMIN D3) * Take 1 tablet by mouth once d * BD ULTRA-FINE SHORT PEN NEEDL* 1 Applicator as directed. CYANOCOBALAMIN (VIT B-12) 1,0* Take 1 tablet by mouth once d * ECOTRIN LOW STRENGTH 81 MG TA* Take one(1) tablet daily. Problem List As Of Date 03/28/2020 Noted Resolved Asthma [J45.909] 07/07/2015 Anemia in stage 3 chronic kidney disease (HCC) * Hypertension goal BP (blood pressure) < 140/90 * Hyperlipidemia [E78.5] Polyneuropathy in diabetes (HCC) [E11.42] 07/27/2005 DIABETES MELLITUS TYPE II UNCONTR UNCOMPL [IMO0*07/27/2005 0 08/09/2008 More... Erectile dysfunction associated with type 2 diaz*07/09/2008 Overweight [E66.3] 07/09/2008 Other specified gastritis without mention of he*09/18/2008 0 07/07/2015 BPH w/o urinary obs/LUTS [N40.0] 09/18/2008 09/08/2011 Background diabetic retinopathy(362.01) (HCC) [*09/18/2008 0 06/30/2015 Shoulder pain [M25.519] 09/25/2008 03/09/2011 More... 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] 06/22/2019 Pseudophakia of both eyes [Z96.1] 06/22/2019 Type 2 diabetes mellitus with diabetic polyneur*10/11/2019 Type 2 diabetes mellitus with stage 3 chronic k*10/11/2019 Encounter Status:Closed by ELE NETWORK NAVIGATORLACIE on 04/01/20 trangn on [facility] Normal 03-17-2020 [place] SHIRIN Whipple SR. ([id number]) 1945 [facility] Date Time Provider Department ([id number]) 03/17/20 JESSE GLOVER During your visit today, we recorded the following informati on about you: Markus Chapito 03/17/2020 8:29 AM Signed Patient called regarding 03/18 appointment with [place]. Donna palma stated he had no knowledge of appointment being moved fro 03/26 with PCP. Patient stated he has an appointment conflict and needed to reschedule 03/18 office visit. This PSS scheduled patient next available with Rosalinda velasco for 04/22. Patient asked if there is any way he could be seen sooner by PCP as he was not informe d of original appointment change. Please advise patient. Roma Hawkins LPN 03/17/2020 3:20 PM Signed Left message for Patient to call office re: appt. Scheduled Patient for 04/12/2020. Roma Hawkins LPN 03/20/2020 4:00 PM Signed Patient has conflict and is not able to come , he has agreed to keep his appt. 04/22/2020. Roma Hawkins LPN Allergies As of Date: 03/17/2020 Noted Allergy Reaction CORTISONE 05/09/2009 14 - Other: See Comments Comments: [place] real hot, as if someone threw boiling water o n him ZESTRIL (LISINOPRIL) 01/29/2009 5 - Intolerance Comments: ARF, hypokalemia Date Reviewed: 03/13/2020 Reviewed by: Semaj Benton Ma - Fully Assessed Reason for Visit: Appointment [186] Prescriptions as of 03/17/2020 Sig: LOSARTAN 100 MG TABLET TAKE 1 TABLET EVERY DAY BY MO* TIMOLOL MALEATE 0.5 % EYE PA* INSTILL 1 DROP IN BOTH EYES T * LINAGLIPTIN 5 MG TABLET Take 1 tablet by mouth once d* DICLOFENAC 1 % TOPICAL GEL Apply 2 g to affected area fo* FUROSEMIDE 40 MG TABLET Take 1 tablet by mouth once d* BLOOD GLUCOSE TEST STRIPS Test blood sugar(s) 4 times d* LANCETS Test blood sugar(s) 4 times d* HUMALOG MIX 75-25 KWIKPEN U-1* Inject 20 units breakfast and * METFORMIN ER 500 MG TABLET,EX* Take 1 tablet by mouth daily * NIFEDIPINE ER 90 MG TABLET,EX* Take 1 tablet by mouth once d * CHLORTHALIDONE 25 MG TABLET Take 1 tablet by mouth once d* CARVEDILOL 25 MG TABLET Take 1.5 tablets by mouth twi* CLONIDINE HCL 0.2 MG TABLET Take 1 tablet by mouth twice * GABAPENTIN 100 MG CAPSULE Take 2 capsules by mouth trevin* PRAVASTATIN 80 MG TABLET Take 1 tablet by mouth once d* DICLOFENAC 1 % TOPICAL GEL Apply 2 g to affected area fo* LATANOPROST 0.005 % EYE DROPS Use 1 Drop in both eyes daily* PEN NEEDLE, DIABETIC 31 GAUGE* Use as directed 4 times a day * CHOLECALCIFEROL (VITAMIN D3) * Take 1 tablet by mouth once d * BD ULTRA-FINE SHORT PEN NEEDL* 1 Applicator as directed. CYANOCOBALAMIN (VIT B-12) 1,0* Take 1 tablet by mouth once d * ECOTRIN LOW STRENGTH 81 MG TA* Take one(1) tablet daily. Problem List As Of Date 03/17/2020 Noted Resolved Asthma [J45.909] 07/07/2015 Anemia in stage 3 chronic kidney disease ([facility]) * Hypertension goal BP (blood pressure) < 140/90 * Hyperlipidemia [E78.5] Polyneuropathy in diabetes ([facility]) [E11.42] 07/27/2005 DIABETES MELLITUS TYPE II UNCONTR UNCOMPL [IMO0*07/27/2005 0 08/09/2008 More... Erectile dysfunction associated with type 2 diaz*07/09/2008 Overweight [E66.3] 07/09/2008 Other specified gastritis without mention of he*09/18/2008 0 07/07/2015 BPH w/o urinary obs/LUTS [N40.0] 09/18/2008 09/08/2011 Background diabetic retinopathy(362.01) ([facility]) [*09/18/2008 0 06/30/2015 Shoulder pain [M25.519] 09/25/2008 03/09/2011 More... 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] 06/22/2019 Pseudophakia of both eyes [Z96.1] 06/22/2019 Type 2 diabetes mellitus with diabetic polyneur*10/11/2019 Type 2 diabetes mellitus with stage 3 chronic k*10/11/2019 Encounter Status:Closed by ROMA HAWKINS LPN on 03/20/20 progress on 2020-02 PROGRESS HNO ID: [id number] Normal 03-13-2020 [place] Author: Brigitte Parks [facility] Service: ? [place] Author Type: Nurse Practitioner ([id number]) Type: Progress Notes Filed: 03/14/2020 4:34 PM Note Text: VASCULAR SURGERY WOUND OSTOMY CONTINENCE CONSULTATION CHIEF COMPLAINT: Wound check and evaluation HISTORY OF PRESENT ILLNESS: LLE laceration PAST MEDICAL HISTORY Diagnosis Date - Anemia in stage 3 chronic kidney disease (HCC) - Background diabetic retinopathy(362.01) 09/18/2008 [facility] eye. - Cataract of left eye - Chronic kidney disease, unspecified - CKD (chronic kidney disease) stage 3, GFR 30-59 ml/min (HC C) 05/26/2017 - Coloboma of iris OD - Depressive disorder, not elsewhere classified - Erectile dysfunction associated with type 2 diabetes isai garcia ([facility]) 07/09/2008 - Esophageal reflux - Essential hypertension, benign - Hyperplasia of prostate - Macular edema dme od - Other and unspecified hyperlipidemia - Other specified anemias - Other specified gastritis without mention of hemorrhage - Personal history of colonic polyps 08/04/2016 - Primary open angle glaucoma OU - Proliferative diabetic retinopathy(362.02) - Pseudophakia of right eye - Shoulder pain 09/25/2008 Right. - Tubular adenoma of colon 08/10/2016 - Type II or unspecified type diabetes mellitus with ophthal bj manifestations, uncontrolled(250.52) 09/18/2008 iddm - Unspecified asthma(493.90) - Vitreous hemorrhage of left eye ([facility]) PAST SURGICAL HISTORY Procedure Laterality Date - AVASTIN (BEVACIZUMAB) 1.25MG INTRAVITREAL INJECTION OD (RI GHT EYE) Right 04/19/2018 LAST - COLONOS W/REM POLYP SNARE 08/04/2016 Repeat 07/2019 - COLONOSCOP W/ OR W/O BRSH SPEC Colonoscopy - COLONOSCOPY W/BX 07/25/13 Repeat due 2016 - EGD W/O OR W/BRUSH/WASH 2002 EGD - EYE SURGERY HX Right 05/02/2018 Pars plana vitrectomy, membrane peel, endolaser, and air flu id exchange right eye. - LAPAROSCOPIC CHOLEYCYSTECTOMY Cholecystectomy, lap - PANRETINAL PHOTOCOAGULATION (PRP) OD (RIGHT EYE) Right 10/2014 LAST ; PRP (Panretinal Photocoagulation) OD - PANRETINAL PHOTOCOAGULATION (PRP) OS (LEFT EYE) Left 07/12 #2 ; PRP (Panretinal Photocoagulation) OS - PROSTATECTOMY SUPRAPUBIC SUBTOTAL for BPH - REMV CATARACT EXTRACAP,INSERT LENS 02/07/2007 Cataract Removal right - REMV CATARACT EXTRACAP,INSERT LENS Left 11/16/2016 Cataract Extraction with PC IOL OS - REPAIR ROTATOR CUFF,ACUTE 2008 Rotator cuff repair, Right - VITRECTOMY,MECHANICAL Left 11/16/2016 PPV/MP/EL/AFX OS ALLERGIES Allergen Reactions - Cortisone Other: See Comments [place] real hot, as if someone threw boiling water on him - Zestril [Lisinopril] Intolerance ARF, hypokalemia Social History Tobacco Use - Smoking status: Former Smoker Types: Cigars - Smokeless tobacco: Never Used - Tobacco comment: quit 40 + years ago Substance Use Topics - Alcohol use: Yes Comment: rarely, 2-3 glasses red wine per month - Drug use: No FAMILY HISTORY Problem Relation Age of Onset - Breast Cancer Mother at age 55 - COPD Father Black lung - Breast Cancer Sister at age 54 - Diabetes Brother - No Ocular Disease No Family History nothing known of MEDICATIONS: losartan (COZAAR) 100 mg tablet TAKE 1 TABLET EVERY DAY BY M OUTH timoloL maleate (TIMOPTIC) 0.5 % ophthalmic solution INSTILL 1 DROP IN BOTH EYES TWICE A DAY (USE AT 6 A.M. AND 6 P.M.) linaGLIPtin (TRADJENTA) 5 mg tab Take 1 tablet by mouth once daily. diclofenac sodium (VOLTAREN) 1 % topical gel Apply 2 g to af fected area four times daily. furosemide (LASIX) 40 mg tablet Take 1 tablet by mouth once daily. blood sugar diagnostic (BLOOD GLUCOSE TEST) test strip Test blood sugar(s) 4 times daily. Dx: Type 2 DM - Uncontrolled E11.65 Insulin: Yes Lancets lancets Test blood sugar(s) 4 times daily. Dx: Type 2 DM - Uncontrolled E11.65 Insulin: Yes insulin 75/25 lispro protamine/lispro units/mL (HUMALOG MIX 75-25 KWIKPEN) 100 unit/mL (75-25) inpn Inject 20 units breakfast and 20 un its dinner metFORMIN ER (GLUCOPHAGE XR) 500 mg 24 hr tablet Take 1 tabl et by mouth daily with breakfast. NIFEdipine ER (PROCARDIA XL) 90 mg 24 hr tablet Take 1 table t by mouth once daily. chlorthalidone (HYGROTON) 25 mg tablet Take 1 tablet by mout h once daily. carvedilol (COREG) 25 mg tablet Take 1.5 tablets by mouth tw ice daily with meals. cloNIDine HCl (CATAPRES) 0.2 mg tablet Take 1 tablet by mout h twice daily. gabapentin (NEURONTIN) 100 mg capsule Take 2 capsules by laura th daily at bedtime. From podiatry (Dr. Cordon) pravastatin (PRAVACHOL) 80 mg tablet Take 1 tablet by mouth once daily. For cholesterol. diclofenac sodium (VOLTAREN) 1 % topical gel Apply 2 g to af fected area four times daily. latanoprost (XALATAN) 0.005 % ophthalmic solution Use 1 Drop in both eyes daily at bedtime. Insulin Broad Top, Disposable, (1ST TIER UNIFINE PENTIPS) 31 g auge x 3/16 ndle Use as directed 4 times a day. Dx: E11.65 cholecalciferol (VITAMIN D) 1,000 unit tab tablet Take 1 tab let by mouth once daily. BD INSULIN PEN NEEDLE UF 31 gauge x 16 ndle 1 Applicator as directed. cyanocobalamin (VITAMIN B-12) 1,000 mcg tab Take 1 tablet by mouth once daily. aspirin(ECOTRIN LOW STRENGTH 81 MG TAB) Take one(1) tablet d aily. Blood-Glucose Meter monitoring kit Glucose Meter of Choice - Kit - Dx: Type 2 DM - Uncontrolled REVIEW OF SYSTEMS 12 organ system review was performed with these findings: No change from prior assessment Exceptions: Integumentary: See below Nutritional Status Appetite: good Diet: Regular Albumin/Prealbumin levels: Lab Results Component Value Date ALB 3.8 (L) 12/19/2019 PHYSICAL EXAMINATION Constitutional: Appears about stated age, well nourished, no weight loss, no fevers and no chills. Psych: Alert and oriented to person, place and time. Intact memory. Normal limit affect, judgement and insight. Respiratory: Symmetrical expansion and effort. No cough, no shortness of breath. Cardiovascular: No chest pain. No edema. Neuro: Normal limit cranial nerves. Musculoskeletal: Normal limit gait. Normal limit symmetry. N ormal limit range of motion. Normal limit muscle strength. Normal limit tone of all extremities. Integumentary: Normal skin color, texture and turgor. No dry , scaly or cracked skin. No ecchymotic areas. No friable skin. No rash, lesions, excoriations or black. No diaphoresis. No jaundice, no ruddi ness, no skin pallor. LLE laceration - healed Eyes: Pupils are equal, round and reactive to light. Ears: Normal limit hearing. Nose/Mouth/Throat: Normal limit external ear canals and TM. Normal limit teeth, lips and gums. Neck: Normal limit appearance and movements. Trachea midline . Breast: Not assessed. Lymphatic: Not assessed. Abdominal: Not assessed. WOUND PAIN: No pain or discomfort DATA REVIEWED: Chart reviewed. ASSESSMENT/PLAN/TREATMENT RECOMMENDATIONS Apply AANDD ointment to scar tissue for protection daily Education provided Treatment demonstrated Questions answered I have spent 15 minutes with the patient for physical and wo und assessment, wound cleaning, dressing demonstration and answe ring questions. More than 50% of the time spent with the patient included education/counselling/coordination of care. Brigitte Parks, PhD, WOCN, CLINICAL NURSE MANAGER cnov on 2020-03-13 CNOV Office Visit (VASSWS) Normal 03-13-20 [place] SHIRIN Whipple SR. ([id number]) 1945 [facility] Date Time Provider Department ([id number]) 03/13/20 11:00 AM BRIGITTE PARKS VASSWS During your visit today, we recorded the following informati on about you: Brigitte Parks, PhD, C[employer]ER [employer]UTIONS SUPERVISOR.CLINICAL NURSE MANAGER 03/14/2020 4:34 PM Signed VASCULAR SURGERY WOUND OSTOMY CONTINENCE CONSULTATION CHIEF COMPLAINT: Wound check and evaluation HISTORY OF PRESENT ILLNESS: LLE laceration PAST MEDICAL HISTORY Diagnosis Date - Anemia in stage 3 chronic kidney disease (HCC) - Background diabetic retinopathy(362.01) 09/18/2008 [facility]. - Cataract of left eye - Chronic kidney disease, unspecified - CKD (chronic kidney disease) stage 3, GFR 30-59 ml/min (HC C) 05/26/2017 - Coloboma of iris OD - Depressive disorder, not elsewhere classified - Erectile dysfunction assoc iated with type 2 diabetes mellitus (HCC) 07/09/2008 - Esophageal reflux - Essential hypertension, benign - Hyperplasia of prostate - Macular edema dme od - Other and unspecified hyperlipidemia - Other specified anemias - Other specified gastritis without mention of hemorrhage - Personal history of colonic polyps 08/04/2016 - Primary open angle glaucoma OU - Proliferative diabetic retinopathy(362.02) - Pseudophakia of right eye - Shoulder pain 09/25/2008 Right. - Tubular adenoma of colon 08/10/2016 - Type II or unspecified typ e diabetes mellitus with ophthalmic manifestations, uncontrolled(250.52) 09/18/2008 [facility] - Unspecified asthma(493.90) - Vitreous hemorrhage of left eye (HCC) PAST SURGICAL HISTORY Procedure Laterality Date - AVASTIN (BEVACIZUMAB) 1.25MG INTRAVITREAL INJECTION OD (RI GHT EYE) Right 04/19/2018 LAST - COLONOS W/REM POLYP SNARE 08/04/2016 Repeat 07/2019 - COLONOSCOP W/ OR W/O BRSH SPEC Colonoscopy - COLONOSCOPY W/BX 07/25/13 Repeat due 2016 - EGD W/O OR W/BRUSH/WASH 2002 EGD - EYE SURGERY HX Right 05/02/2018 Pars plana vitrectomy, membrane peel, endolaser, and air fluid exchange right eye. - LAPAROSCOPIC CHOLEYCYSTECTOMY Cholecystectomy, lap - PANRETINAL PHOTOCOAGULATION (PRP) OD (RIGHT EYE) Right 10/2014 LAST ; PRP (Panretinal Photocoagulation) OD - PANRETINAL PHOTOCOAGULATION (PRP) OS (LEFT EYE) Left 07/12 #2 ; PRP (Panretinal Photocoagulation) OS - PROSTATECTOMY SUPRAPUBIC SUBTOTAL for BPH - REMV CATARACT EXTRACAP,INSERT LENS 02/07/2007 Cataract Removal right - REMV CATARACT EXTRACAP,INSERT LENS Left 11/16/2016 Cataract Extraction with PC IOL OS - REPAIR ROTATOR CUFF,ACUTE 2008 Rotator cuff repair, Right - VITRECTOMY,MECHANICAL Left 11/16/2016 PPV/MP/EL/AFX OS ALLERGIES Allergen Reactions - Cortisone Other: See Comments [place] real hot, as if someone threw boiling water on him - Zestril [Lisinopril] Intolerance ARF, hypokalemia Social History Tobacco Use - Smoking status: Former Smoker Types: Cigars - Smokeless tobacco: Never Used - Tobacco comment: quit 40 + years ago Substance Use Topics - Alcohol use: Yes Comment: rarely, 2-3 glasses red wine per month - Drug use: No FAMILY HISTORY Problem Relation Age of Onset - Breast Cancer Mother at age 55 - COPD Father Black lung - Breast Cancer Sister at age 54 - Diabetes Brother - No Ocular Disease No Family History nothing known of MEDICATIONS: losartan (COZAAR) 100 mg tablet TAKE 1 TABLET EVERY DAY BY M OUTH timoloL maleate (TIMOPTIC) 0.5 % ophthalmic solution INSTI LL 1 DROP IN BOTH EYES TWICE A DAY (USE AT 6 A.M. AND 6 P.M.) linaGLIPtin (TRADJENTA) 5 mg tab Take 1 tablet by mouth once daily. diclofenac sodium (VOLTAREN) 1 % topical gel Apply 2 g to affected area four times daily. furosemide (LASIX) 40 mg tablet Take 1 tablet by mouth once daily. blood sugar diagnostic (BLOOD GLUCOSE TEST) test strip Test blood sugar(s) 4 times daily. Dx: Type 2 DM - Uncontrolled E11.65 Insulin: Ye s Lancets lancets Test blood sugar(s) 4 times daily. Dx: Type 2 DM - Uncontrolled E11.65 Insulin: Yes insulin 75/25 lispro protamine/lispro un its/mL (HUMALOG MIX 75-25 KWIKPEN) 100 unit/mL (75-25) inpn Inject 20 units breakfast and 20 units dinner metFORMIN ER (GLUCOPHAGE XR) 500 mg 24 hr tablet Take 1 tablet by mouth daily with breakfast. NIFEdipine ER (PROCARDIA XL) 90 mg 24 hr tablet Take 1 tab let by mouth once daily. chlorthalidone (HYGROTON) 25 mg tablet Take 1 tablet by mout h once daily. carvedilol (COREG) 25 mg tablet Take 1.5 tablets by mouth tw ice daily with meals. cloNIDine HCl (CATAPRES) 0.2 mg tablet Take 1 tablet by mout h twice daily. gabapentin (NEURONTIN) 100 mg capsule Take 2 capsules by laura th daily at bedtime. From podiatry (Dr. Cordon) pravastatin (PRAVACHOL) 80 mg tablet Take 1 tablet by mout h once daily. For cholesterol. diclofenac sodium (VOLTAREN) 1 % topical gel Apply 2 g to affected area four times daily. latanoprost (XALATAN) 0.005 % ophthalmic solution Use 1 Drop in both eyes daily at bedtime. Insulin Broad Top, Disposable, (1ST TIER UNIFINE P ENTIPS) 31 gauge x 3/16 ndle Use as directed 4 times a day. Dx: E11.65 cholecalciferol (VITAMIN D) 1,000 unit tab table t Take 1 tablet by mouth once daily. BD INSULIN PEN NEEDLE UF 31 gauge x 5/16 ndle 1 Applicator as directed. cyanocobalamin (VITAMIN B-12) 1,000 mcg tab Take 1 tablet by mouth once daily. aspirin(ECOTRIN LOW STRENGTH 81 MG TAB) Take one(1) tablet d aily. Blood-Glucose Meter monitoring kit Glucose Meter of Choice - Kit - Dx: Type 2 DM - Uncontrolled E11.65 REVIEW OF SYSTEMS 12 organ system review was performed with these findings: No change from prior assessment Exceptions: Integumentary: See below Nutritional Status Appetite: good Diet: Regular Albumin/Prealbumin levels: Lab Results Component Value Date ALB 3.8 (L) 12/19/2019 PHYSICAL EXAMINATION Constitutional: Appears about stated age, well nourish ed, no weight loss, no fevers and no chills. Psych: Alert and oriented to person, place and time. Intact memory. Normal limit affect, judgement and insight. Respiratory: Symmetrical exp ansion and effort. No cough, no shortness of breath. Cardiovascular: No chest pain. No edema. Neuro: Normal limit cranial nerves. Musculoskeletal: Normal limit gait. Normal limit symmetry. Normal limit range of motion. Normal limit muscle strength. Normal limit tone of all extremities. Integumentary: Normal skin color, textur e and turgor. No dry, scaly or cracked skin. No ecchymotic areas. No friable skin. No r jesus, lesions, excoriations or black. No diaphoresis. No jaundice, no ruddiness, no skin pa llor. LLE laceration - healed Eyes: Pupils are equal, round and reactive to light. Ears: Normal limit hearing. Nose/Mouth/Throat: Normal li cyrus external ear canals and TM. Normal limit teeth, lips and gums. Neck: Normal limit appearance and movements. Trachea midline . Breast: Not assessed. Lymphatic: Not assessed. Abdominal: Not assessed. WOUND PAIN: No pain or discomfort DATA REVIEWED: Chart reviewed. ASSESSMENT/PLAN/TREATMENT RECOMMENDATIONS Apply AANDD ointment to scar tissue for protection daily Education provided Treatment demonstrated Questions answered I have spent 15 minutes with the patient for physical and wound assessment, wound cleaning, dressing demonstration and answe ring questions. More than 50% of the time spent with the patient inclu ded education/counselling/coordination of care. Brigitte Parks, PhD, WOCN, CLINICAL NURSE MANAGER Referring Provider: BRIGITTE PARKS [[id number]] Allergies As of Date: 03/13/2020 Noted Allergy Reaction CORTISONE 05/09/2009 14 - Other: See Comments Comments: [place] real hot, as if someone threw boiling water o n him ZESTRIL (LISINOPRIL) 01/29/2009 5 - Intolerance Comments: ARF, hypokalemia Date Reviewed: 03/13/2020 Reviewed by: Semaj Benton Ma - Fully Assessed Reason for Visit: Established Patient [175] Primary Visit Diagnosis:Laceration of left lower leg, subseq uent encounter [S81.812D] Prescriptions as of 03/13/2020 Sig: LOSARTAN 100 MG TABLET TAKE 1 TABLET EVERY DAY BY MO* TIMOLOL MALEATE 0.5 % EYE PA* INSTILL 1 DROP IN BOTH EYES T * LINAGLIPTIN 5 MG TABLET Take 1 tablet by mouth once d* DICLOFENAC 1 % TOPICAL GEL Apply 2 g to affected area fo* FUROSEMIDE 40 MG TABLET Take 1 tablet by mouth once d* BLOOD GLUCOSE TEST STRIPS Test blood sugar(s) 4 times d* LANCETS Test blood sugar(s) 4 times d* HUMALOG MIX 75-25 KWIKPEN U-1* Inject 20 units breakfast and * METFORMIN ER 500 MG TABLET,EX* Take 1 tablet by mouth daily * NIFEDIPINE ER 90 MG TABLET,EX* Take 1 tablet by mouth once d * CHLORTHALIDONE 25 MG TABLET Take 1 tablet by mouth once d* CARVEDILOL 25 MG TABLET Take 1.5 tablets by mouth twi* CLONIDINE HCL 0.2 MG TABLET Take 1 tablet by mouth twice * GABAPENTIN 100 MG CAPSULE Take 2 capsules by mouth trevin* PRAVASTATIN 80 MG TABLET Take 1 tablet by mouth once d* DICLOFENAC 1 % TOPICAL GEL Apply 2 g to affected area fo* LATANOPROST 0.005 % EYE DROPS Use 1 Drop in both eyes daily* PEN NEEDLE, DIABETIC 31 GAUGE* Use as directed 4 times a day * CHOLECALCIFEROL (VITAMIN D3) * Take 1 tablet by mouth once d * BD ULTRA-FINE SHORT PEN NEEDL* 1 Applicator as directed. CYANOCOBALAMIN (VIT B-12) 1,0* Take 1 tablet by mouth once d * ECOTRIN LOW STRENGTH 81 MG TA* Take one(1) tablet daily. BLOOD-GLUCOSE METER KIT Glucose Meter of Choice - Kit* Problem List As Of Date 03/13/2020 Noted Resolved Asthma [J45.909] 07/07/2015 Anemia in stage 3 chronic kidney disease (HCC) * Hypertension goal BP (blood pressure) < 140/90 * Hyperlipidemia [E78.5] Polyneuropathy in diabetes (HCC) [E11.42] 07/27/2005 DIABETES MELLITUS TYPE II UNCONTR UNCOMPL [IMO0*07/27/2005 0 08/09/2008 More... Erectile dysfunction associated with type 2 diaz*07/09/2008 Overweight [E66.3] 07/09/2008 Other specified gastritis without mention of he*09/18/2008 0 07/07/2015 BPH w/o urinary obs/LUTS [N40.0] 09/18/2008 09/08/2011 Background diabetic retinopathy(362.01) ([facility]) [*09/18/2008 0 06/30/2015 Shoulder pain [M25.519] 09/25/2008 03/09/2011 More... 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] 06/22/2019 Pseudophakia of both eyes [Z96.1] 06/22/2019 Type 2 diabetes mellitus with diabetic polyneur*10/11/2019 Type 2 diabetes mellitus with stage 3 chronic k*10/11/2019 Encounter Status:Closed by BRIGITTE PARKS CNP on 03/14/20 progress on 2020-02 PROGRESS HNO ID: [id number] Normal 03-06-2020 [place] Author: Adia Yip [facility] Service: ? [place] Author Type: Physician ([id number]) Type: Progress Notes Filed: 03/06/2020 11:37 AM Note Text: 1. Insulin dependent Diabetes Mellitus - Hba1c = Hemoglobin A1C (%) Date Value 12/19/2019 7.0 - Stressed blood pressure and blood sugar control and close follow-up with PCP/pointer helper 2. Q Proliferative diabetic retinopathy Both Eyes - RIGHT: - s/p Panretinal laser photocoagulation #5 (last 08/29/14, 06/10, 10/04/13, 07/05/13, 04/05/13) - s/p Avastin #3?(last 04/19/18, 03/23/18,?02/17/17) - s/p Pars plana vitrectomy/EL (05/02/18) - OCT: atrophy, non foveal edema - Observe - LEFT: - s/p Panretinal laser photocoagulation #2 (07/12/13, 03/29/13 ) - s/p?Phaco/PCIOL/PPV/MP/EL/FAx (11/16/16) - OCT with extrafoveal IRF and ERM - Plan = Observe 4. 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 Wilson, continue timolol and la de souza ------ I have confirmed and edited as necessary the relevant ophtha lmic history, ROS, and the clinical/neuro exam findings as obtained by oth ers. I have seen and examined this patient. I have discussed the case an d the management of this patient's care with the Resident/Fellow, if applicable. I also have reviewed and agree with the assessment and plan as stated above and agree with all of its relevant components on 2019 MD Aditya ByrdHarrington [facility] Hospitaled Chair of Ophthalmology Research Professor of Ophthalmology, [facility] Vitreoretinal Staff, [facility] obsolete on 2020-02 OBSOLETE Refill (OPHTSA) Normal 03-05-2020 Sb burroughs [facility] SHIRIN WEST SR. ([id number]) 1945 [facility] Time Provider Department ([id number]) 03/05/20 XIOMARA LEONARD During your visit today, we recorded the following informati on about you: Allergies As of Date: 03/05/2020 Noted Allergy Reaction CORTISONE 05/09/2009 14 - Other: See Comments Comments: [place] real hot, as if someone threw boiling water o n him ZESTRIL (LISINOPRIL) 01/29/2009 5 - Intolerance Comments: ARF, hypokalemia Date Reviewed: 02/28/2020 Reviewed by: Semaj Benton Ma - Fully Assessed Reason for Visit: Refill Request [94] Order(s):timoloL maleate (TIMOPTIC) 0.5 % ophthalmic solutionINSTILL 1 DROP IN BOTH EYES TWICE A DAY (USE AT 6 A.M. AND 6 P.M.)Disp: 25 mLR fl: 2 Prescriptions as of 03/05/2020 Sig: TIMOLOL MALEATE 0.5 % EYE PA* INSTILL 1 DROP IN BOTH EYES T * LINAGLIPTIN 5 MG TABLET Take 1 tablet by mouth once d* DICLOFENAC 1 % TOPICAL GEL Apply 2 g to affected area fo* FUROSEMIDE 40 MG TABLET Take 1 tablet by mouth once d* BLOOD-GLUCOSE METER KIT Glucose Meter of Choice - Kit* BLOOD GLUCOSE TEST STRIPS Test blood sugar(s) 4 times d* LANCETS Test blood sugar(s) 4 times d* HUMALOG MIX 75-25 KWIKPEN U-1* Inject 20 units breakfast and * METFORMIN ER 500 MG TABLET,EX* Take 1 tablet by mouth daily * NIFEDIPINE ER 90 MG TABLET,EX* Take 1 tablet by mouth once d * CHLORTHALIDONE 25 MG TABLET Take 1 tablet by mouth once d* CARVEDILOL 25 MG TABLET Take 1.5 tablets by mouth twi* CLONIDINE HCL 0.2 MG TABLET Take 1 tablet by mouth twice * GABAPENTIN 100 MG CAPSULE Take 2 capsules by mouth trevin* PRAVASTATIN 80 MG TABLET Take 1 tablet by mouth once d* DICLOFENAC 1 % TOPICAL GEL Apply 2 g to affected area fo* LATANOPROST 0.005 % EYE DROPS Use 1 Drop in both eyes daily* PEN NEEDLE, DIABETIC 31 GAUGE* Use as directed 4 times a day * LOSARTAN 100 MG TABLET TAKE 1 TABLET EVERY DAY BY MO* CHOLECALCIFEROL (VITAMIN D3) * Take 1 tablet by mouth once d * BD ULTRA-FINE SHORT PEN NEEDL* 1 Applicator as directed. CYANOCOBALAMIN (VIT B-12) 1,0* Take 1 tablet by mouth once d * ECOTRIN LOW STRENGTH 81 MG TA* Take one(1) tablet daily. Problem List As Of Date 03/05/2020 Noted Resolved Asthma [J45.909] 07/07/2015 Anemia in stage 3 chronic kidney disease ([facility]) * Hypertension goal BP (blood pressure) < 140/90 * Hyperlipidemia [E78.5] Polyneuropathy in diabetes ([facility]) [E11.42] 07/27/2005 DIABETES MELLITUS TYPE II UNCONTR UNCOMPL [IMO0*07/27/2005 0 08/09/2008 More... Erectile dysfunction associated with type 2 diaz*07/09/2008 Overweight [E66.3] 07/09/2008 Other specified gastritis without mention of he*09/18/2008 0 07/07/2015 BPH w/o urinary obs/LUTS [N40.0] 09/18/2008 09/08/2011 Background diabetic retinopathy(362.01) ([facility]) [*09/18/2008 0 06/30/2015 Shoulder pain [M25.519] 09/25/2008 03/09/2011 More... 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] 06/22/2019 Pseudophakia of both eyes [Z96.1] 06/22/2019 Type 2 diabetes mellitus with diabetic polyneur*10/11/2019 Type 2 diabetes mellitus with stage 3 chronic k*10/11/2019 Prescriptions ordered this encounter Disp Refills Start End TIMOLOL MALEATE 0.5 % EYE DROPS 25 mL 2 03/05/2020 Sig: INSTILL 1 DROP IN BOTH EYES TWICE A DAY (USE AT 6 A.M. AND 6 P.M.) Medications Discontinued During This Encounter Prescriptions - timolol maleate (TIMOPTIC) 0.5 % ophthalmic solution (Disc ontinued) Use 1 Drop in both eyes twice daily. Use at 6 AM and 6 PM Encounter Status:Closed by TRUDY WILSON MD on 03/05/20 progress on 2020-02 PROGRESS HNO ID: [id number] Normal 02-28-2020 [place] Author: Brigitte Parks [facility] Service: ? [place] Author Type: Nurse Practitioner ([id number]) Type: Progress Notes Filed: 02/29/2020 9:58 AM Note Text: VASCULAR SURGERY WOUND OSTOMY CONTINENCE CONSULTATION CHIEF COMPLAINT: Wound check and evaluation HISTORY OF PRESENT ILLNESS: LLE abrasion PAST MEDICAL HISTORY Diagnosis Date - Anemia in stage 3 chronic kidney disease (HCC) - Background diabetic retinopathy(362.01) 09/18/2008 [facility] eye. - Cataract of left eye - Chronic kidney disease, unspecified - CKD (chronic kidney disease) stage 3, GFR 30-59 ml/min (HC C) 05/26/2017 - Coloboma of iris OD - Depressive disorder, not elsewhere classified - Erectile dysfunction associated with type 2 diabetes isai garcia ([facility]) 07/09/2008 - Esophageal reflux - Essential hypertension, benign - Hyperplasia of prostate - Macular edema dme od - Other and unspecified hyperlipidemia - Other specified anemias - Other specified gastritis without mention of hemorrhage - Personal history of colonic polyps 08/04/2016 - Primary open angle glaucoma OU - Proliferative diabetic retinopathy(362.02) - Pseudophakia of right eye - Shoulder pain 09/25/2008 Right. - Tubular adenoma of colon 08/10/2016 - Type II or unspecified type diabetes mellitus with ophthal bj manifestations, uncontrolled(250.52) 09/18/2008 [facility] - Unspecified asthma(493.90) - Vitreous hemorrhage of left eye ([facility]) PAST SURGICAL HISTORY Procedure Laterality Date - AVASTIN (BEVACIZUMAB) 1.25MG INTRAVITREAL INJECTION OD (RI GHT EYE) Right 04/19/2018 LAST - COLONOS W/REM POLYP SNARE 08/04/2016 Repeat 07/2019 - COLONOSCOP W/ OR W/O BRSH SPEC Colonoscopy - COLONOSCOPY W/BX 07/25/13 Repeat due 2016 - EGD W/O OR W/BRUSH/WASH 2002 EGD - EYE SURGERY HX Right 05/02/2018 Pars plana vitrectomy, membrane peel, endolaser, and air flu id exchange right eye. - LAPAROSCOPIC CHOLEYCYSTECTOMY Oct.2002 Cholecystectomy, lap - PANRETINAL PHOTOCOAGULATION (PRP) OD (RIGHT EYE) Right 10/2014 LAST ; PRP (Panretinal Photocoagulation) OD - PANRETINAL PHOTOCOAGULATION (PRP) OS (LEFT EYE) Left 07/12 #2 ; PRP (Panretinal Photocoagulation) OS - PROSTATECTOMY SUPRAPUBIC SUBTOTAL for BPH - REMV CATARACT EXTRACAP,INSERT LENS 02/07/2007 Cataract Removal right - REMV CATARACT EXTRACAP,INSERT LENS Left 11/16/2016 Cataract Extraction with PC IOL OS - REPAIR ROTATOR CUFF,ACUTE 2008 Rotator cuff repair, Right - VITRECTOMY,MECHANICAL Left 11/16/2016 PPV/MP/EL/AFX OS ALLERGIES Allergen Reactions - Cortisone Other: See Comments [place] real hot, as if someone threw boiling water on him - Zestril [Lisinopril] Intolerance ARF, hypokalemia Social History Tobacco Use - Smoking status: Former Smoker Types: Cigars - Smokeless tobacco: Never Used - Tobacco comment: quit 40 + years ago Substance Use Topics - Alcohol use: Yes Comment: rarely, 2-3 glasses red wine per month - Drug use: No FAMILY HISTORY Problem Relation Age of Onset - Breast Cancer Mother at age 55 - COPD Father Black lung - Breast Cancer Sister at age 54 - Diabetes Brother - No Ocular Disease No Family History nothing known of MEDICATIONS: linaGLIPtin (TRADJENTA) 5 mg tab Take 1 tablet by mouth once daily. diclofenac sodium (VOLTAREN) 1 % topical gel Apply 2 g to af fected area four times daily. furosemide (LASIX) 40 mg tablet Take 1 tablet by mouth once daily. Blood-Glucose Meter monitoring kit Glucose Meter of Choice - Kit - Dx: Type 2 DM - Uncontrolled E11.65 blood sugar diagnostic (BLOOD GLUCOSE TEST) test strip Test blood sugar(s) 4 times daily. Dx: Type 2 DM - Uncontrolled E11.65 Insulin: Yes Lancets lancets Test blood sugar(s) 4 times daily. Dx: Type 2 DM - Uncontrolled E11.65 Insulin: Yes insulin 75/25 lispro protamine/lispro units/mL (HUMALOG MIX 75-25 KWIKPEN) 100 unit/mL (75-25) inpn Inject 20 units breakfast and 20 un its dinner metFORMIN ER (GLUCOPHAGE XR) 500 mg 24 hr tablet Take 1 tabl et by mouth daily with breakfast. NIFEdipine ER (PROCARDIA XL) 90 mg 24 hr tablet Take 1 table t by mouth once daily. chlorthalidone (HYGROTON) 25 mg tablet Take 1 tablet by mout h once daily. carvedilol (COREG) 25 mg tablet Take 1.5 tablets by mouth tw ice daily with meals. cloNIDine HCl (CATAPRES) 0.2 mg tablet Take 1 tablet by mout h twice daily. gabapentin (NEURONTIN) 100 mg capsule Take 2 capsules by laura th daily at bedtime. From podiatry (Dr. Cordon) pravastatin (PRAVACHOL) 80 mg tablet Take 1 tablet by mouth once daily. For cholesterol. diclofenac sodium (VOLTAREN) 1 % topical gel Apply 2 g to af fected area four times daily. timolol maleate (TIMOPTIC) 0.5 % ophthalmic solution Use 1 D rop in both eyes twice daily. Use at 6 AM and 6 PM latanoprost (XALATAN) 0.005 % ophthalmic solution Use 1 Drop in both eyes daily at bedtime. Insulin Broad Top, Disposable, (1ST TIER UNIFINE PENTIPS) 31 g auge x 3/16 ndle Use as directed 4 times a day. Dx: E11.65 losartan (COZAAR) 100 mg tablet TAKE 1 TABLET EVERY DAY BY M OUTH cholecalciferol (VITAMIN D) 1,000 unit tab tablet Take 1 tab let by mouth once daily. BD INSULIN PEN NEEDLE UF 31 gauge x 5/16 ndle 1 Applicator as directed. cyanocobalamin (VITAMIN B-12) 1,000 mcg tab Take 1 tablet by mouth once daily. aspirin(ECOTRIN LOW STRENGTH 81 MG TAB) Take one(1) tablet d aily. REVIEW OF SYSTEMS 12 organ system review was performed with these findings: No change from prior assessment Exceptions: Integumentary: See below Nutritional Status Appetite: fair Diet: Regular Albumin/Prealbumin levels: Lab Results Component Value Date ALB 3.8 (L) 12/19/2019 PHYSICAL EXAMINATION Constitutional: Appears about stated age, well nourished, no weight loss, no fevers and no chills. Psych: Alert and oriented to person, place and time. Intact memory. Normal limit affect, judgement and insight. Respiratory: Symmetrical expansion and effort. No cough, no shortness of breath. Cardiovascular: No chest pain. No edema. Neuro: Normal limit cranial nerves. Musculoskeletal: Normal limit gait. Normal limit symmetry. N ormal limit range of motion. Normal limit muscle strength. Normal limit tone of all extremities. Integumentary: Normal skin color, texture and turgor. No dry , scaly or cracked skin. No ecchymotic areas. No friable skin. No rash, lesions, excoriations or black. No diaphoresis. No jaundice, no ruddi ness, no skin pallor. LLE laceration; scar tissue except proximal = 0.2 cm x 0.2 c m x <0.25 cm yellow dry tissue, no odor or drainage, no s/s of infection Eyes: Pupils are equal, round and reactive to light. Ears: Normal limit hearing. Nose/Mouth/Throat: Normal limit external ear canals and TM. Normal limit teeth, lips and gums. Neck: Normal limit appearance and movements. Trachea midline . Breast: Not assessed. Lymphatic: Not assessed. Abdominal: Not assessed. WOUND PAIN: No pain or discomfort DATA REVIEWED: Chart reviewed. ASSESSMENT/PLAN/TREATMENT RECOMMENDATIONS Apply foam dressing to wound base. Change every 3-5 days. Education provided Treatment demonstrated Questions answered I have spent 15 minutes with the patient for physical and wo und assessment, wound cleaning, dressing demonstration and answe ring questions. More than 50% of the time spent with the patient included education/counselling/coordination of care. Brigitte Parks, PhD, WOCN, CLINICAL NURSE MANAGER cnov on 2020-02-28 CNOV Office Visit (VASSWS) Normal 02-28-[address] [place] [address] SHIRIN Whipple SR. ([id number]) 1945 [facility] Date Time Provider Department ([id number]) 02/28/20 8:30 AM BRIGITTE PARKS VASSWS During your visit today, we recorded the following informati on about you: Brigitte Parks, PhD, CUST[employer]ER [employer]UTIONS SUPERVISOR.CLINICAL NURSE MANAGER 02/29/2020 9:58 AM Signed VASCULAR SURGERY WOUND OSTOMY CONTINENCE CONSULTATION CHIEF COMPLAINT: Wound check and evaluation HISTORY OF PRESENT ILLNESS: LLE abrasion PAST MEDICAL HISTORY Diagnosis Date - Anemia in stage 3 chronic kidney disease (HCC) - Background diabetic retinopathy(362.01) 09/18/2008 [facility]. - Cataract of left eye - Chronic kidney disease, unspecified - CKD (chronic kidney disease) stage 3, GFR 30-59 ml/min (HC C) 05/26/2017 - Coloboma of iris OD - Depressive disorder, not elsewhere classified - Erectile dysfunction assoc iated with type 2 diabetes mellitus (HCC) 07/09/2008 - Esophageal reflux - Essential hypertension, benign - Hyperplasia of prostate - Macular edema dme od - Other and unspecified hyperlipidemia - Other specified anemias - Other specified gastritis without mention of hemorrhage - Personal history of colonic polyps 08/04/2016 - Primary open angle glaucoma OU - Proliferative diabetic retinopathy(362.02) - Pseudophakia of right eye - Shoulder pain 09/25/2008 Right. - Tubular adenoma of colon 08/10/2016 - Type II or unspecified typ e diabetes mellitus with ophthalmic manifestations, uncontrolled(250.52) 09/18/2008 [facility] - Unspecified asthma(493.90) - Vitreous hemorrhage of left eye ([facility]) PAST SURGICAL HISTORY Procedure Laterality Date - AVASTIN (BEVACIZUMAB) 1.25MG INTRAVITREAL INJECTION OD (RI GHT EYE) Right 04/19/2018 LAST - COLONOS W/REM POLYP SNARE 08/04/2016 Repeat 07/2019 - COLONOSCOP W/ OR W/O [facility] SPEC Colonoscopy - COLONOSCOPY W/BX 07/25/13 Repeat due 2016 - EGD W/O OR W/BRUSH/WASH 2002 EGD - EYE SURGERY HX Right 05/02/2018 Pars plana vitrectomy, membrane peel, endolaser, and air fluid exchange right eye. - LAPAROSCOPIC CHOLEYCYSTECTOMY Oct.2002 Cholecystectomy, lap - PANRETINAL PHOTOCOAGULATION (PRP) OD (RIGHT EYE) Right 10/2014 LAST ; PRP (Panretinal Photocoagulation) OD - PANRETINAL PHOTOCOAGULATION (PRP) OS (LEFT EYE) Left 07/12 #2 ; PRP (Panretinal Photocoagulation) OS - PROSTATECTOMY SUPRAPUBIC SUBTOTAL for BPH - REMV CATARACT EXTRACAP,INSERT LENS 02/07/2007 Cataract Removal right - REMV CATARACT EXTRACAP,INSERT LENS Left 11/16/2016 Cataract Extraction with PC IOL OS - REPAIR ROTATOR CUFF,ACUTE 2008 Rotator cuff repair, Right - VITRECTOMY,MECHANICAL Left 11/16/2016 PPV/MP/EL/AFX OS ALLERGIES Allergen Reactions - Cortisone Other: See Comments [place] real hot, as if someone threw boiling water on him - Zestril [Lisinopril] Intolerance ARF, hypokalemia Social History Tobacco Use - Smoking status: Former Smoker Types: Cigars - Smokeless tobacco: Never Used - Tobacco comment: quit 40 + years ago Substance Use Topics - Alcohol use: Yes Comment: rarely, 2-3 glasses red wine per month - Drug use: No FAMILY HISTORY Problem Relation Age of Onset - Breast Cancer Mother at age 55 - COPD Father Black lung - Breast Cancer Sister at age 54 - Diabetes Brother - No Ocular Disease No Family History nothing known of MEDICATIONS: linaGLIPtin (TRADJENTA) 5 mg tab Take 1 tablet by mouth once daily. diclofenac sodium (VOLTAREN) 1 % topical gel Apply 2 g to affected area four times daily. furosemide (LASIX) 40 mg tablet Take 1 tablet by mouth once daily. Blood-Glucose Meter monitoring kit Glucose Meter of Choice - Kit - Dx: Type 2 DM - Uncontrolled E11.65 blood sugar diagnostic (BLOOD GLUCOSE TEST) test strip Test blood sugar(s) 4 times daily. Dx: Type 2 DM - Uncontrolled E11.65 Insulin: Ye s Lancets lancets Test blood sugar(s) 4 times daily. Dx: Type 2 DM - Uncontrolled E11.65 Insulin: Yes insulin 75/25 lispro protamine/lispro un its/mL (HUMALOG MIX 75-25 KWIKPEN) 100 unit/mL (75-25) inpn Inject 20 units breakfast and 20 units dinner metFORMIN ER (GLUCOPHAGE XR) 500 mg 24 hr tablet Take 1 tablet by mouth daily with breakfast. NIFEdipine ER (PROCARDIA XL) 90 mg 24 hr tablet Take 1 tab let by mouth once daily. chlorthalidone (HYGROTON) 25 mg tablet Take 1 tablet by mout h once daily. carvedilol (COREG) 25 mg tablet Take 1.5 tablets by mouth tw ice daily with meals. cloNIDine HCl (CATAPRES) 0.2 mg tablet Take 1 tablet by mout h twice daily. gabapentin (NEURONTIN) 100 mg capsule Take 2 capsules by daily at bedtime. From podiatry (Dr. Cordon) pravastatin (PRAVACHOL) 80 mg tablet Take 1 tablet by mout h once daily. For cholesterol. diclofenac sodium (VOLTAREN) 1 % topical gel Apply 2 g to affected area four times daily. timolol maleate (TIMOPTIC) 0.5 % ophthalmic solution U se 1 Drop in both eyes twice daily. Use at 6 AM and 6 PM latanoprost (XALATAN) 0.005 % ophthalmic solution Use 1 Drop in both eyes daily at bedtime. Insulin Broad Top, Disposable, (1ST TIER UNIFINE P ENTIPS) 31 gauge x 3/16 ndle Use as directed 4 times a day. Dx: E11.65 losartan (COZAAR) 100 mg tablet TAKE 1 TABLET EVERY DAY BY M OUTH cholecalciferol (VITAMIN D) 1,000 unit tab table t Take 1 tablet by mouth once daily. BD INSULIN PEN NEEDLE UF 31 gauge x 5/16 ndle 1 Applicator as directed. cyanocobalamin (VITAMIN B-12) 1,000 mcg tab Take 1 tablet by mouth once daily. aspirin(ECOTRIN LOW STRENGTH 81 MG TAB) Take one(1) tablet d aily. REVIEW OF SYSTEMS 12 organ system review was performed with these findings: No change from prior assessment Exceptions: Integumentary: See below Nutritional Status Appetite: fair Diet: Regular Albumin/Prealbumin levels: Lab Results Component Value Date ALB 3.8 (L) 12/19/2019 PHYSICAL EXAMINATION Constitutional: Appears about stated age, well nourish ed, no weight loss, no fevers and no chills. Psych: Alert and oriented to person, place and time. Intact memory. Normal limit affect, judgement and insight. Respiratory: Symmetrical exp ansion and effort. No cough, no shortness of breath. Cardiovascular: No chest pain. No edema. Neuro: Normal limit cranial nerves. Musculoskeletal: Normal limit gait. Normal limit symmetry. Normal limit range of motion. Normal limit muscle strength. Normal limit tone of all extremities. Integumentary: Normal skin color, textur e and turgor. No dry, scaly or cracked skin. No ecchymotic areas. No friable skin. No r jesus, lesions, excoriations or black. No diaphoresis. No jaundice, no ruddiness, no skin pa llor. LLE laceration; scar tissue except proximal = 0.2 cm x 0.2 cm x <0.25 cm yellow dry tissue, no odor or drainage, no s/s of infection Eyes: Pupils are equal, round and reactive to light. Ears: Normal limit hearing. Nose/Mouth/Throat: Normal li cyrus external ear canals and TM. Normal limit teeth, lips and gums. Neck: Normal limit appearance and movements. Trachea midline . Breast: Not assessed. Lymphatic: Not assessed. Abdominal: Not assessed. WOUND PAIN: No pain or discomfort DATA REVIEWED: Chart reviewed. ASSESSMENT/PLAN/TREATMENT RECOMMENDATIONS Apply foam dressing to wound base. Change every 3-5 days. Education provided Treatment demonstrated Questions answered I have spent 15 minutes with the patient for physical and wound assessment, wound cleaning, dressing demonstration and answe ring questions. More than 50% of the time spent with the patient inclu ded education/counselling/coordination of care. Brigitte Parks, PhD, WOCN, CLINICAL NURSE MANAGER Referring Provider: BRIGITTE PARKS [[id number]] Allergies As of Date: 02/28/2020 Noted Allergy Reaction CORTISONE 05/09/2009 14 - Other: See Comments Comments: [place] real hot, as if someone threw boiling water o n him ZESTRIL (LISINOPRIL) 01/29/2009 5 - Intolerance Comments: ARF, hypokalemia Date Reviewed: 02/28/2020 Reviewed by: Semaj Benton Ma - Fully Assessed Reason for Visit: Established Patient [[id number]] Primary Visit Diagnosis:Laceration of left lower leg, subseq uent encounter [S85.761M] Prescriptions as of 02/28/2020 Sig: LINAGLIPTIN 5 MG TABLET Take 1 tablet by mouth once d* DICLOFENAC 1 % TOPICAL GEL Apply 2 g to affected area fo* FUROSEMIDE 40 MG TABLET Take 1 tablet by mouth once d* BLOOD-GLUCOSE METER KIT Glucose Meter of Choice - Kit* BLOOD GLUCOSE TEST STRIPS Test blood sugar(s) 4 times d* LANCETS Test blood sugar(s) 4 times d* HUMALOG MIX 75-25 KWIKPEN U-1* Inject 20 units breakfast and * METFORMIN ER 500 MG TABLET,EX* Take 1 tablet by mouth daily * NIFEDIPINE ER 90 MG TABLET,EX* Take 1 tablet by mouth once d * CHLORTHALIDONE 25 MG TABLET Take 1 tablet by mouth once d* CARVEDILOL 25 MG TABLET Take 1.5 tablets by mouth twi* CLONIDINE HCL 0.2 MG TABLET Take 1 tablet by mouth twice * GABAPENTIN 100 MG CAPSULE Take 2 capsules by mouth trevin* PRAVASTATIN 80 MG TABLET Take 1 tablet by mouth once d* DICLOFENAC 1 % TOPICAL GEL Apply 2 g to affected area fo* TIMOLOL MALEATE 0.5 % EYE PA* Use 1 Drop in both eyes twice * LATANOPROST 0.005 % EYE DROPS Use 1 Drop in both eyes daily* PEN NEEDLE, DIABETIC 31 GAUGE* Use as directed 4 times a day * LOSARTAN 100 MG TABLET TAKE 1 TABLET EVERY DAY BY MO* CHOLECALCIFEROL (VITAMIN D3) * Take 1 tablet by mouth once d * BD ULTRA-FINE SHORT PEN NEEDL* 1 Applicator as directed. CYANOCOBALAMIN (VIT B-12) 1,0* Take 1 tablet by mouth once d * ECOTRIN LOW STRENGTH 81 MG TA* Take one(1) tablet daily. Problem List As Of Date 02/28/2020 Noted Resolved Asthma [J45.909] 07/07/2015 Anemia in stage 3 chronic kidney disease ([facility]) * Hypertension goal BP (blood pressure) < 140/90 * Hyperlipidemia [E78.5] Polyneuropathy in diabetes ([facility]) [E11.42] 07/27/2005 DIABETES MELLITUS TYPE II UNCONTR UNCOMPL [IMO0*07/27/2005 0 08/09/2008 More... Erectile dysfunction associated with type 2 diaz*07/09/2008 Overweight [E66.3] 07/09/2008 Other specified gastritis without mention of he*09/18/2008 0 07/07/2015 BPH w/o urinary obs/LUTS [N40.0] 09/18/2008 09/08/2011 Background diabetic retinopathy(362.01) ([facility]) [*09/18/2008 0 06/30/2015 Shoulder pain [M25.519] 09/25/2008 03/09/2011 More... 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 [place] Author Type: Nurse Practitioner ([id number]) Type: Progress Notes Filed: 02/18/2020 5:50 AM Note Text: VASCULAR SURGERY WOUND OSTOMY CONTINENCE CONSULTATION CHIEF COMPLAINT: Wound check and evaluation HISTORY OF PRESENT ILLNESS: LLE laceration re evaluation PAST MEDICAL HISTORY Diagnosis Date - Anemia in stage 3 chronic kidney disease (HCC) - Background diabetic retinopathy(362.01) 09/18/2008 [facility] eye. - Cataract of left eye - Chronic kidney disease, unspecified - CKD (chronic kidney disease) stage 3, GFR 30-59 ml/min ( C) 05/26/2017 - [place]ob[place] of [place] OD - Depressive disorder, not elsewhere classified - Erectile dysfunction associated with type 2 diabetes isai garcia ([facility]) 07/09/2008 - Esophageal reflux - Essential hypertension, benign - Hyperplasia of prostate - Macular edema dme od - Other and unspecified hyperlipidemia - Other specified anemias - Other specified gastritis without mention of hemorrhage - Personal history of colonic polyps 08/04/2016 - Primary open angle glaucoma OU - Proliferative diabetic retinopathy(362.02) - Pseudophakia of right eye - Shoulder pain 09/25/2008 Right. - Tubular adenoma of colon 08/10/2016 - Type II or unspecified type diabetes mellitus with ophthal bj manifestations, uncontrolled(250.52) 09/18/2008 [facility] - Unspecified asthma(493.90) - Vitreous hemorrhage of left eye (HCC) PAST SURGICAL HISTORY Procedure Laterality Date - AVASTIN (BEVACIZUMAB) 1.25MG INTRAVITREAL INJECTION OD (RI GHT EYE) Right 04/19/2018 LAST - COLONOS W/REM POLYP SNARE 08/04/2016 Repeat 07/2019 - COLONOSCOP W/ OR W/O [facility] SPEC Colonoscopy - COLONOSCOPY W/BX 07/25/13 Repeat due 2016 - EGD W/O OR W/BRUSH/WASH 2002 EGD - EYE SURGERY HX Right 05/02/2018 Pars plana vitrectomy, membrane peel, endolaser, and air flu id exchange right eye. - LAPAROSCOPIC CHOLEYCYSTECTOMY Cholecystectomy, lap - PANRETINAL PHOTOCOAGULATION (PRP) OD (RIGHT EYE) Right 10/2014 LAST ; PRP (Panretinal Photocoagulation) OD - PANRETINAL PHOTOCOAGULATION (PRP) OS (LEFT EYE) Left 07/12 #2 ; PRP (Panretinal Photocoagulation) OS - PROSTATECTOMY SUPRAPUBIC SUBTOTAL for BPH - REMV CATARACT EXTRACAP,INSERT LENS 02/07/2007 Cataract Removal right - REMV CATARACT EXTRACAP,INSERT LENS Left 11/16/2016 Cataract Extraction with PC IOL OS - REPAIR ROTATOR CUFF,ACUTE 2008 Rotator cuff repair, Right - VITRECTOMY,MECHANICAL Left 11/16/2016 PPV/MP/EL/AFX OS ALLERGIES Allergen Reactions - Cortisone Other: See Comments [place] real hot, as if someone threw boiling water on him - Zestril [Lisinopril] Intolerance ARF, hypokalemia Social History Tobacco Use - Smoking status: Former Smoker Types: Cigars - Smokeless tobacco: Never Used - Tobacco comment: quit 40 + years ago Substance Use Topics - Alcohol use: Yes Comment: rarely, 2-3 glasses red wine per month - Drug use: No FAMILY HISTORY Problem Relation Age of Onset - Breast Cancer Mother at age 55 - COPD Father Black lung - Breast Cancer Sister at age 54 - Diabetes Brother - No Ocular Disease No Family History nothing known of MEDICATIONS: linaGLIPtin (TRADJENTA) 5 mg tab Take 1 tablet by mouth once daily. furosemide (LASIX) 40 mg tablet Take 1 tablet by mouth once daily. Blood-Glucose Meter monitoring kit Glucose Meter of Choice - Kit - Dx: Type 2 DM - Uncontrolled E11.65 blood sugar diagnostic (BLOOD GLUCOSE TEST) test strip Test blood sugar(s) 4 times daily. Dx: Type 2 DM - Uncontrolled E11.65 Insulin: Yes Lancets lancets Test blood sugar(s) 4 times daily. Dx: Type 2 DM - Uncontrolled E11. Insulin: Yes insulin 75/25 lispro protamine/lispro units/mL (HUMALOG MIX 75-25 KWIKPEN) 100 unit/mL (75-25) inpn Inject 20 units breakfast and 20 un its dinner metFORMIN ER (GLUCOPHAGE XR) 500 mg 24 hr tablet Take 1 tabl et by mouth daily with breakfast. NIFEdipine ER (PROCARDIA XL) 90 mg 24 hr tablet Take 1 table t by mouth once daily. chlorthalidone (HYGROTON) 25 mg tablet Take 1 tablet by mout h once daily. carvedilol (COREG) 25 mg tablet Take 1.5 tablets by mouth tw ice daily with meals. cloNIDine HCl (CATAPRES) 0.2 mg tablet Take 1 tablet by mout h twice daily. gabapentin (NEURONTIN) 100 mg capsule Take 2 capsules by laura th daily at bedtime. From podiatry (Dr. Cordon) pravastatin (PRAVACHOL) 80 mg tablet Take 1 tablet by mouth once daily. For cholesterol. diclofenac sodium (VOLTAREN) 1 % topical gel Apply 2 g to af fected area four times daily. timolol maleate (TIMOPTIC) 0.5 % ophthalmic solution Use 1 D rop in both eyes twice daily. Use at 6 AM and 6 PM latanoprost (XALATAN) 0.005 % ophthalmic solution Use 1 Drop in both eyes daily at bedtime. Insulin Broad Top, Disposable, (1ST TIER UNIFINE PENTIPS) 31 g auge x 3/16 ndle Use as directed 4 times a day. Dx: E11.65 losartan (COZAAR) 100 mg tablet TAKE 1 TABLET EVERY DAY BY M OUTH cholecalciferol (VITAMIN D) 1,000 unit tab tablet Take 1 tab let by mouth once daily. BD INSULIN PEN NEEDLE UF 31 gauge x 16 ndle 1 Applicator as directed. cyanocobalamin (VITAMIN B-12) 1,000 mcg tab Take 1 tablet by mouth once daily. aspirin(ECOTRIN LOW STRENGTH 81 MG TAB) Take one(1) tablet d aily. diclofenac sodium (VOLTAREN) 1 % topical gel Apply 2 g to af fected area four times daily. REVIEW OF SYSTEMS 12 organ system review was performed with these findings: No change from prior assessment Exceptions: Integumentary: See below Nutritional Status Appetite: good Diet: Regular Albumin/Prealbumin levels: Lab Results Component Value Date ALB 3.8 (L) 12/19/2019 PHYSICAL EXAMINATION Constitutional: Appears about stated age, well nourished, no weight loss, no fevers and no chills. Psych: Alert and oriented to person, place and time. Intact memory. Normal limit affect, judgement and insight. Respiratory: Symmetrical expansion and effort. No cough, no shortness of breath. Cardiovascular: No chest pain. No edema. Neuro: Normal limit cranial nerves. Musculoskeletal: Normal limit gait. Normal limit symmetry. N ormal limit range of motion. Normal limit muscle strength. Normal limit tone of all extremities. Integumentary: Normal skin color, texture and turgor. No dry , scaly or cracked skin. No ecchymotic areas. No friable skin. No rash, lesions, excoriations or black. No diaphoresis. No jaundice, no ruddi ness, no skin pallor. LLE laceration; scar tissue through center proximal = 0.2 cm x 0.3 cm x <0.25 cm yellow dry tissue and distal 0.2 cm x 0.1 cm x 0 cm red dry scab, no odor or drainage, no s/s of infection Eyes: Pupils are equal, round and reactive to light. Ears: Normal limit hearing. Nose/Mouth/Throat: Normal limit external ear canals and TM. Normal limit teeth, lips and gums. Neck: Normal limit appearance and movements. Trachea midline . Breast: Not assessed. Lymphatic: Not assessed. Abdominal: Not assessed. WOUND PAIN: No pain or discomfort DATA REVIEWED: Chart reviewed. ASSESSMENT/PLAN/TREATMENT RECOMMENDATIONS Apply foam dressing to wound base. Change every 3-5 days. Education provided Treatment demonstrated Questions answered I have spent 15 minutes with the patient for physical and wo und assessment, wound cleaning, dressing demonstration and answe ring questions. More than 50% of the time spent with the patient included education/counselling/coordination of care. Brigitte Parks, PhD, WOCN, CLINICAL NURSE MANAGER cnov on 2020-02-14 CNOV Office Visit (VASSWS) Normal 02-14-20 [place] SHIRIN Whipple SR. ([id number]) 1945 M [place] Date Time Provider Department ([id number]) 02/14/20 8:30 AM BRIGITTE PARKS VASSWS During your visit today, we recorded the following informati on about you: Brigitte Parks, PhD, CUSTOMER [employer]UTIONS SUPERVISOR.CLINICAL NURSE MANAGER 02/18/2020 5:50 AM Signed VASCULAR SURGERY WOUND OSTOMY CONTINENCE CONSULTATION CHIEF COMPLAINT: Wound check and evaluation HISTORY OF PRESENT ILLNESS: LLE laceration re evaluation PAST MEDICAL HISTORY Diagnosis Date - Anemia in stage 3 chronic kidney disease (HCC) - Background diabetic retinopathy(362.01) 09/18/2008 [facility] eye. - Cataract of left eye - Chronic kidney disease, unspecified - CKD (chronic kidney disease) stage 3, GFR 30-59 ml/min (HC C) 05/26/2017 - [place]oboma of [place] OD - Depressive disorder, not elsewhere classified - Erectile dysfunction assoc iated with type 2 diabetes mellitus (HCC) 07/09/2008 - Esophageal reflux - Essential hypertension, benign - Hyperplasia of prostate - Macular edema dme od - Other and unspecified hyperlipidemia - Other specified anemias - Other specified gastritis without mention of hemorrhage - Personal history of colonic polyps 08/04/2016 - Primary open angle glaucoma OU - Proliferative diabetic retinopathy(362.02) - Pseudophakia of right eye - Shoulder pain 09/25/2008 Right. - Tubular adenoma of colon 08/10/2016 - Type II or unspecified typ e diabetes mellitus with ophthalmic manifestations, uncontrolled(250.52) 09/18/2008 [facility] - Unspecified asthma(493.90) - Vitreous hemorrhage of left eye (HCC) PAST SURGICAL HISTORY Procedure Laterality Date - AVASTIN (BEVACIZUMAB) 1.25MG INTRAVITREAL INJECTION OD (RI GHT EYE) Right 04/19/2018 LAST - COLONOS W/REM POLYP SNARE 08/04/2016 Repeat 07/2019 - COLONOSCOP W/ OR W/O [facility] SPEC Colonoscopy - COLONOSCOPY W/BX 07/25/13 Repeat due 2016 - EGD W/O OR W/BRUSH/WASH 2002 EGD - EYE SURGERY HX Right 05/02/2018 Pars plana vitrectomy, membrane peel, endolaser, and air fluid exchange right eye. - LAPAROSCOPIC CHOLEYCYSTECTOMY Cholecystectomy, lap - PANRETINAL PHOTOCOAGULATION (PRP) OD (RIGHT EYE) Right 10/2014 LAST ; PRP (Panretinal Photocoagulation) OD - PANRETINAL PHOTOCOAGULATION (PRP) OS (LEFT EYE) Left 07/12 #2 ; PRP (Panretinal Photocoagulation) OS - PROSTATECTOMY SUPRAPUBIC SUBTOTAL for BPH - REMV CATARACT EXTRACAP,INSERT LENS 02/07/2007 Cataract Removal right - REMV CATARACT EXTRACAP,INSERT LENS Left 11/16/2016 Cataract Extraction with PC IOL OS - REPAIR ROTATOR CUFF,ACUTE 2008 Rotator cuff repair, Right - VITRECTOMY,MECHANICAL Left 11/16/2016 PPV/MP/EL/AFX OS ALLERGIES Allergen Reactions - Cortisone Other: See Comments [place] real hot, as if someone threw boiling water on him - Zestril [Lisinopril] Intolerance ARF, hypokalemia Social History Tobacco Use - Smoking status: Former Smoker Types: Cigars - Smokeless tobacco: Never Used - Tobacco comment: quit 40 + years ago Substance Use Topics - Alcohol use: Yes Comment: rarely, 2-3 glasses red wine per month - Drug use: No FAMILY HISTORY Problem Relation Age of Onset - Breast Cancer Mother at age 55 - COPD Father Black lung - Breast Cancer Sister at age 54 - Diabetes Brother - No Ocular Disease No Family History nothing known of MEDICATIONS: linaGLIPtin (TRADJENTA) 5 mg tab Take 1 tablet by mouth once daily. furosemide (LASIX) 40 mg tablet Take 1 tablet by mouth once daily. Blood-Glucose Meter monitoring kit Glucose Meter of Choice - Kit - Dx: Type 2 DM - Uncontrolled E11.65 blood sugar diagnostic (BLOOD GLUCOSE TEST) test strip Test blood sugar(s) 4 times daily. Dx: Type 2 DM - Uncontrolled E11.65 Insulin: Ye s Lancets lancets Test blood sugar(s) 4 times daily. Dx: Type 2 DM - Uncontrolled E11.65 Insulin: Yes insulin 75/25 lispro protamine/lispro un its/mL (HUMALOG MIX 75-25 KWIKPEN) 100 unit/mL (75-25) inpn Inject 20 units breakfast and 20 units dinner metFORMIN ER (GLUCOPHAGE XR) 500 mg 24 hr tablet Take 1 tablet by mouth daily with breakfast. NIFEdipine ER (PROCARDIA XL) 90 mg 24 hr tablet Take 1 tab let by mouth once daily. chlorthalidone (HYGROTON) 25 mg tablet Take 1 tablet by mout h once daily. carvedilol (COREG) 25 mg tablet Take 1.5 tablets by mouth tw ice daily with meals. cloNIDine HCl (CATAPRES) 0.2 mg tablet Take 1 tablet by mout h twice daily. gabapentin (NEURONTIN) 100 mg capsule Take 2 capsules by laura th daily at bedtime. From podiatry (Dr. Cordon) pravastatin (PRAVACHOL) 80 mg tablet Take 1 tablet by mout h once daily. For cholesterol. diclofenac sodium (VOLTAREN) 1 % topical gel Apply 2 g to affected area four times daily. timolol maleate (TIMOPTIC) 0.5 % ophthalmic solution U se 1 Drop in both eyes twice daily. Use at 6 AM and 6 PM latanoprost (XALATAN) 0.005 % ophthalmic solution Use 1 Drop in both eyes daily at bedtime. Insulin Broad Top, Disposable, (1ST TIER UNIFINE P ENTIPS) 31 gauge x 3/16 ndle Use as directed 4 times a day. Dx: E11.65 losartan (COZAAR) 100 mg tablet TAKE 1 TABLET EVERY DAY BY M OUTH cholecalciferol (VITAMIN D) 1,000 unit tab table t Take 1 tablet by mouth once daily. BD INSULIN PEN NEEDLE UF 31 gauge x 5/16 ndle 1 Applicator as directed. cyanocobalamin (VITAMIN B-12) 1,000 mcg tab Take 1 tablet by mouth once daily. aspirin(ECOTRIN LOW STRENGTH 81 MG TAB) Take one(1) tablet d aily. diclofenac sodium (VOLTAREN) 1 % topical gel Apply 2 g to affected area four times daily. REVIEW OF SYSTEMS 12 organ system review was performed with these findings: No change from prior assessment Exceptions: Integumentary: See below Nutritional Status Appetite: good Diet: Regular Albumin/Prealbumin levels: Lab Results Component Value Date ALB 3.8 (L) 12/19/2019 PHYSICAL EXAMINATION Constitutional: Appears about stated age, well nourish ed, no weight loss, no fevers and no chills. Psych: Alert and oriented to person, place and time. Intact memory. Normal limit affect, judgement and insight. Respiratory: Symmetrical exp ansion and effort. No cough, no shortness of breath. Cardiovascular: No chest pain. No edema. Neuro: Normal limit cranial nerves. Musculoskeletal: Normal limit gait. Normal limit symmetry. Normal limit range of motion. Normal limit muscle strength. Normal limit tone of all extremities. Integumentary: Normal skin color, textur e and turgor. No dry, scaly or cracked skin. No ecchymotic areas. No friable skin. No r jesus, lesions, excoriations or black. No diaphoresis. No jaundice, no ruddiness, no skin pa llor. LLE laceration; scar tissue through center proxi mal = 0.2 cm x 0.3 cm x <0.25 cm yellow dry tissue and dis jagjit 0.2 cm x 0.1 cm x 0 cm red dry scab, no odor or drainage, no s/s of infection Eyes: Pupils are equal, round and reactive to light. Ears: Normal limit hearing. Nose/Mouth/Throat: Normal li cyrus external ear canals and TM. Normal limit teeth, lips and gums. Neck: Normal limit appearance and movements. Trachea midline . Breast: Not assessed. Lymphatic: Not assessed. Abdominal: Not assessed. WOUND PAIN: No pain or discomfort DATA REVIEWED: Chart reviewed. ASSESSMENT/PLAN/TREATMENT RECOMMENDATIONS Apply foam dressing to wound base. Change every 3-5 days. Education provided Treatment demonstrated Questions answered I have spent 15 minutes with the patient for physical and wound assessment, wound cleaning, dressing demonstration and answe ring questions. More than 50% of the time spent with the patient inclu ded education/counselling/coordination of care. Brigitte Parks, PhD, WOCN, CLINICAL NURSE MANAGER Referring Provider: BRIGITTE PARKS [[id number]] Allergies As of Date: 02/14/2020 Noted Allergy Reaction CORTISONE 05/09/2009 14 - Other: See Comments Comments: [place] real hot, as if someone threw boiling water o n him ZESTRIL (LISINOPRIL) 01/29/2009 5 - Intolerance Comments: ARF, hypokalemia Date Reviewed: 02/14/2020 Reviewed by: Semaj Benton Ma - Fully Assessed Reason for Visit: Established Patient [175] Primary Visit Diagnosis:Laceration of left lower leg, subseq uent encounter [S82.753D] Prescriptions as of 02/14/2020 Sig: LINAGLIPTIN 5 MG TABLET Take 1 tablet by mouth once d* FUROSEMIDE 40 MG TABLET Take 1 tablet by mouth once d* BLOOD-GLUCOSE METER KIT Glucose Meter of Choice - Kit* BLOOD GLUCOSE TEST STRIPS Test blood sugar(s) 4 times d* LANCETS Test blood sugar(s) 4 times d* HUMALOG MIX 75-25 KWIKPEN U-1* Inject 20 units breakfast and * METFORMIN ER 500 MG TABLET,EX* Take 1 tablet by mouth daily * NIFEDIPINE ER 90 MG TABLET,EX* Take 1 tablet by mouth once d * CHLORTHALIDONE 25 MG TABLET Take 1 tablet by mouth once d* CARVEDILOL 25 MG TABLET Take 1.5 tablets by mouth twi* CLONIDINE HCL 0.2 MG TABLET Take 1 tablet by mouth twice * GABAPENTIN 100 MG CAPSULE Take 2 capsules by mouth trevin* PRAVASTATIN 80 MG TABLET Take 1 tablet by mouth once d* DICLOFENAC 1 % TOPICAL GEL Apply 2 g to affected area fo* TIMOLOL MALEATE 0.5 % EYE PA* Use 1 Drop in both eyes twice * LATANOPROST 0.005 % EYE DROPS Use 1 Drop in both eyes daily* PEN NEEDLE, DIABETIC 31 GAUGE* Use as directed 4 times a day * LOSARTAN 100 MG TABLET TAKE 1 TABLET EVERY DAY BY MO* CHOLECALCIFEROL (VITAMIN D3) * Take 1 tablet by mouth once d * BD ULTRA-FINE SHORT PEN NEEDL* 1 Applicator as directed. CYANOCOBALAMIN (VIT B-12) 1,0* Take 1 tablet by mouth once d * ECOTRIN LOW STRENGTH 81 MG TA* Take one(1) tablet daily. DICLOFENAC 1 % TOPICAL GEL Apply 2 g to affected area fo* Problem List As Of Date 02/14/2020 Noted Resolved Asthma [J45.909] 07/07/2015 Anemia in stage 3 chronic kidney disease (HCC) * Hypertension goal BP (blood pressure) < 140/90 * Hyperlipidemia [E78.5] Polyneuropathy in diabetes (HCC) [E11.42] 07/27/2005 DIABETES MELLITUS TYPE II UNCONTR UNCOMPL [IMO0*07/27/2005 0 08/09/2008 More... Erectile dysfunction associated with type 2 diaz*07/09/2008 Overweight [E66.3] 07/09/2008 Other specified gastritis without mention of he*09/18/2008 0 07/07/2015 BPH w/o urinary obs/LUTS [N40.0] 09/18/2008 09/08/2011 Background diabetic retinopathy(362.01) ([facility]) [*09/18/2008 0 06/30/2015 Shoulder pain [M25.519] 09/25/2008 03/09/2011 More... 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 [place] Author Type: Nurse Practitioner ([id number]) Type: Progress Notes Filed: 02/10/2020 9:08 PM Note Text: VASCULAR SURGERY WOUND OSTOMY CONTINENCE CONSULTATION CHIEF COMPLAINT: Wound check and evaluation HISTORY OF PRESENT ILLNESS: LLE laceration PAST MEDICAL HISTORY Diagnosis Date - Anemia in stage 3 chronic kidney disease (HCC) - Background diabetic retinopathy(362.01) 09/18/2008 [facility] eye. - Cataract of left eye - Chronic kidney disease, unspecified - CKD (chronic kidney disease) stage 3, GFR 30-59 ml/min (HC C) 05/26/2017 - Coloboma of iris OD - Depressive disorder, not elsewhere classified - Erectile dysfunction associated with type 2 diabetes isai garcia ([facility]) 07/09/2008 - Esophageal reflux - Essential hypertension, benign - Hyperplasia of prostate - Macular edema dme od - Other and unspecified hyperlipidemia - Other specified anemias - Other specified gastritis without mention of hemorrhage - Personal history of colonic polyps 08/04/2016 - Primary open angle glaucoma OU - Proliferative diabetic retinopathy(362.02) - Pseudophakia of right eye - Shoulder pain 09/25/2008 Right. - Tubular adenoma of colon 08/10/2016 - Type II or unspecified type diabetes mellitus with ophthal bj manifestations, uncontrolled(250.52) 09/18/2008 [facility] - Unspecified asthma(493.90) - Vitreous hemorrhage of left eye ([facility]) PAST SURGICAL HISTORY Procedure Laterality Date - AVASTIN (BEVACIZUMAB) 1.25MG INTRAVITREAL INJECTION OD (RI GHT EYE) Right 04/19/2018 LAST - COLONOS W/REM POLYP SNARE 08/04/2016 Repeat 07/2019 - COLONOSCOP W/ OR W/O BRSH SPEC Colonoscopy - COLONOSCOPY W/BX 07/25/13 Repeat due 2017 - EGD W/O OR W/BRUSH/WASH 2002 EGD - EYE SURGERY HX Right 05/02/2018 Pars plana vitrectomy, membrane peel, endolaser, and air flu id exchange right eye. - LAPAROSCOPIC CHOLEYCYSTECTOMY Cholecystectomy, lap - PANRETINAL PHOTOCOAGULATION (PRP) OD (RIGHT EYE) Right 10/2014 LAST ; PRP (Panretinal Photocoagulation) OD - PANRETINAL PHOTOCOAGULATION (PRP) OS (LEFT EYE) Left 07/12 #2 ; PRP (Panretinal Photocoagulation) OS - PROSTATECTOMY SUPRAPUBIC SUBTOTAL for BPH - REMV CATARACT EXTRACAP,INSERT LENS 02/07/2007 Cataract Removal right - REMV CATARACT EXTRACAP,INSERT LENS Left 11/16/2016 Cataract Extraction with PC IOL OS - REPAIR ROTATOR CUFF,ACUTE 2008 Rotator cuff repair, Right - VITRECTOMY,MECHANICAL Left 11/16/2016 PPV/MP/EL/AFX OS ALLERGIES Allergen Reactions - Cortisone Other: See Comments [place] real hot, as if someone threw boiling water on him - Zestril [Lisinopril] Intolerance ARF, hypokalemia Social History Tobacco Use - Smoking status: Former Smoker Types: Cigars - Smokeless tobacco: Never Used - Tobacco comment: quit 40 + years ago Substance Use Topics - Alcohol use: Yes Comment: rarely, 2-3 glasses red wine per month - Drug use: No FAMILY HISTORY Problem Relation Age of Onset - Breast Cancer Mother at age 55 - COPD Father Black lung - Breast Cancer Sister at age 54 - Diabetes Brother - No Ocular Disease No Family History nothing known of MEDICATIONS: linaGLIPtin (TRADJENTA) 5 mg tab Take 1 tablet by mouth once daily. diclofenac sodium (VOLTAREN) 1 % topical gel Apply 2 g to af fected area four times daily. furosemide (LASIX) 40 mg tablet Take 1 tablet by mouth once daily. Blood-Glucose Meter monitoring kit Glucose Meter of Choice - Kit - Dx: Type 2 DM - Uncontrolled E11.65 blood sugar diagnostic (BLOOD GLUCOSE TEST) test strip Test blood sugar(s) 4 times daily. Dx: Type 2 DM - Uncontrolled E11.65 Insulin: Yes Lancets lancets Test blood sugar(s) 4 times daily. Dx: Type 2 DM - Uncontrolled E11.65 Insulin: Yes insulin 75/25 lispro protamine/lispro units/mL (HUMALOG MIX 75-25 KWIKPEN) 100 unit/mL (75-25) inpn Inject 20 units breakfast and 20 un its dinner metFORMIN ER (GLUCOPHAGE XR) 500 mg 24 hr tablet Take 1 tabl et by mouth daily with breakfast. NIFEdipine ER (PROCARDIA XL) 90 mg 24 hr tablet Take 1 table t by mouth once daily. chlorthalidone (HYGROTON) 25 mg tablet Take 1 tablet by mout h once daily. carvedilol (COREG) 25 mg tablet Take 1.5 tablets by mouth tw ice daily with meals. cloNIDine HCl (CATAPRES) 0.2 mg tablet Take 1 tablet by mout h twice daily. gabapentin (NEURONTIN) 100 mg capsule Take 2 capsules by laura th daily at bedtime. From podiatry (Dr. Cordon) pravastatin (PRAVACHOL) 80 mg tablet Take 1 tablet by mouth once daily. For cholesterol. diclofenac sodium (VOLTAREN) 1 % topical gel Apply 2 g to af fected area four times daily. timolol maleate (TIMOPTIC) 0.5 % ophthalmic solution Use 1 D rop in both eyes twice daily. Use at 6 AM and 6 PM latanoprost (XALATAN) 0.005 % ophthalmic solution Use 1 Drop in both eyes daily at bedtime. Insulin Broad Top, Disposable, (1ST TIER UNIFINE PENTIPS) 31 g auge x 09/09 ndle Use as directed 4 times a day. Dx: E11.65 losartan (COZAAR) 100 mg tablet TAKE 1 TABLET EVERY DAY BY M OUTH cholecalciferol (VITAMIN D) 1,000 unit tab tablet Take 1 tab let by mouth once daily. BD INSULIN PEN NEEDLE UF 31 gauge x 11/09 ndle 1 Applicator as directed. cyanocobalamin (VITAMIN B-12) 1,000 mcg tab Take 1 tablet by mouth once daily. aspirin(ECOTRIN LOW STRENGTH 81 MG TAB) Take one(1) tablet d aily. REVIEW OF SYSTEMS 12 organ system review was performed with these findings: No change from prior assessment Exceptions: Integumentary: See below Nutritional Status Appetite: good Diet: Regular Albumin/Prealbumin levels: Lab Results Component Value Date ALB 3.8 (L) 12/19/2019 PHYSICAL EXAMINATION Constitutional: Appears about stated age, well nourished, no weight loss, no fevers and no chills. Psych: Alert and oriented to person, place and time. Intact memory. Normal limit affect, judgement and insight. Respiratory: Symmetrical expansion and effort. No cough, no shortness of breath. Cardiovascular: No chest pain. No edema. Neuro: Normal limit cranial nerves. Musculoskeletal: Normal limit gait. Normal limit symmetry. N ormal limit range of motion. Normal limit muscle strength. Normal limit tone of all extremities. Integumentary: Normal skin color, texture and turgor. No dry , scaly or cracked skin. No ecchymotic areas. No friable skin. No rash, lesions, excoriations or black. No diaphoresis. No jaundice, no ruddi ness, no skin pallor. LLE laceration now two due to scar tissue through center pro ximal = 0.4 cm x 0.4 cm x <0.25 cm pink shallow base no odor or drainage, n o s/s of infection Eyes: Pupils are equal, round and reactive to light. Ears: Normal limit hearing. Nose/Mouth/Throat: Normal limit external ear canals and TM. Normal limit teeth, lips and gums. Neck: Normal limit appearance and movements. Trachea midline . Breast: Not assessed. Lymphatic: Not assessed. Abdominal: Not assessed. WOUND PAIN: No pain or discomfort DATA REVIEWED: Chart reviewed. ASSESSMENT/PLAN/TREATMENT RECOMMENDATIONS Apply foam dressing to wound base. Change every 3-5 days. Education provided Treatment demonstrated Questions answered I have spent 15 minutes with the patient for physical and wo und assessment, wound cleaning, dressing demonstration and answe ring questions. More than 50% of the time spent with the patient included education/counselling/coordination of care. Brigitte Parks, PhD, WOCN, CLINICAL NURSE MANAGER cnov on 2020-02-07 CNOV Office Visit (VASSWS) Normal 02-07-20 20 [place] SHIRIN Whipple SR. ([id number]) 1945 M [place] Date Time Provider Department ([id number]) 02/07/20 8:30 AM BRIGITTE PARKS During your visit today, we recorded the following informati on about you: Brigitte Parks, PhD, [employer] SUPERVISOR.CLINICAL NURSE MANAGER 02/10/2020 9:08 PM Signed VASCULAR SURGERY WOUND OSTOMY CONTINENCE CONSULTATION CHIEF COMPLAINT: Wound check and evaluation HISTORY OF PRESENT ILLNESS: LLE laceration PAST MEDICAL HISTORY Diagnosis Date - Anemia in stage 3 chronic kidney disease (HCC) - Background diabetic retinopathy(362.01) 09/18/2008 [facility] eye. - Cataract of left eye - Chronic kidney disease, unspecified - CKD (chronic kidney disease) stage 3, GFR 30-59 ml/min (HC C) 05/26/2017 - [place]ob[place] of [place] OD - Depressive disorder, not elsewhere classified - Erectile dysfunction assoc iated with type 2 diabetes mellitus (HCC) 07/09/2008 - Esophageal reflux - Essential hypertension, benign - Hyperplasia of prostate - Macular edema dme od - Other and unspecified hyperlipidemia - Other specified anemias - Other specified gastritis without mention of hemorrhage - Personal history of colonic polyps 08/04/2016 - Primary open angle glaucoma OU - Proliferative diabetic retinopathy(362.02) - Pseudophakia of right eye - Shoulder pain 09/25/2008 Right. - Tubular adenoma of colon 08/10/2016 - Type II or unspecified typ e diabetes mellitus with ophthalmic manifestations, uncontrolled(250.52) 09/18/2008 [facility] - Unspecified asthma(493.90) - Vitreous hemorrhage of left eye ([facility]) PAST SURGICAL HISTORY Procedure Laterality Date - AVASTIN (BEVACIZUMAB) 1.25MG INTRAVITREAL INJECTION OD (RI GHT EYE) Right 04/19/2018 LAST - COLONOS W/REM POLYP SNARE 08/04/2016 Repeat 07/2019 - COLONOSCOP W/ OR W/O BRSH SPEC Colonoscopy - COLONOSCOPY W/BX 07/25/13 Repeat due 2016 - EGD W/O OR W/BRUSH/WASH 2002 EGD - EYE SURGERY HX Right 05/02/2018 Pars plana vitrectomy, membrane peel, endolaser, and air fluid exchange right eye. - LAPAROSCOPIC CHOLEYCYSTECTOMY Oct.2002 Cholecystectomy, lap - PANRETINAL PHOTOCOAGULATION (PRP) OD (RIGHT EYE) Right 10/2014 LAST ; PRP (Panretinal Photocoagulation) OD - PANRETINAL PHOTOCOAGULATION (PRP) OS (LEFT EYE) Left 07/12 #2 ; PRP (Panretinal Photocoagulation) OS - PROSTATECTOMY SUPRAPUBIC SUBTOTAL for BPH - REMV CATARACT EXTRACAP,INSERT LENS 02/07/2007 Cataract Removal right - REMV CATARACT EXTRACAP,INSERT LENS Left 11/16/2016 Cataract Extraction with PC IOL OS - REPAIR ROTATOR CUFF,ACUTE 2008 Rotator cuff repair, Right - VITRECTOMY,MECHANICAL Left 11/16/2016 PPV/MP/EL/AFX OS ALLERGIES Allergen Reactions - Cortisone Other: See Comments [place] real hot, as if someone threw boiling water on him - Zestril [Lisinopril] Intolerance ARF, hypokalemia Social History Tobacco Use - Smoking status: Former Smoker Types: Cigars - Smokeless tobacco: Never Used - Tobacco comment: quit 40 + years ago Substance Use Topics - Alcohol use: Yes Comment: rarely, 2-3 glasses red wine per month - Drug use: No FAMILY HISTORY Problem Relation Age of Onset - Breast Cancer Mother at age 55 - COPD Father Black lung - Breast Cancer Sister at age 54 - Diabetes Brother - No Ocular Disease No Family History nothing known of MEDICATIONS: linaGLIPtin (TRADJENTA) 5 mg tab Take 1 tablet by mouth once daily. diclofenac sodium (VOLTAREN) 1 % topical gel Apply 2 g to affected area four times daily. furosemide (LASIX) 40 mg tablet Take 1 tablet by mouth once daily. Blood-Glucose Meter monitoring kit Glucose Meter of Choice - Kit - Dx: Type 2 DM - Uncontrolled E11.65 blood sugar diagnostic (BLOOD GLUCOSE TEST) test strip Test blood sugar(s) 4 times daily. Dx: Type 2 DM - Uncontrolled E11.65 Insulin: Ye s Lancets lancets Test blood sugar(s) 4 times daily. Dx: Type 2 DM - Uncontrolled E11.65 Insulin: Yes insulin 75/25 lispro protamine/lispro un its/mL (HUMALOG MIX 75-25 KWIKPEN) 100 unit/mL (75-25) inpn Inject 20 units breakfast and 20 units dinner metFORMIN ER (GLUCOPHAGE XR) 500 mg 24 hr tablet Take 1 tablet by mouth daily with breakfast. NIFEdipine ER (PROCARDIA XL) 90 mg 24 hr tablet Take 1 tab let by mouth once daily. chlorthalidone (HYGROTON) 25 mg tablet Take 1 tablet by mout h once daily. carvedilol (COREG) 25 mg tablet Take 1.5 tablets by mouth tw ice daily with meals. cloNIDine HCl (CATAPRES) 0.2 mg tablet Take 1 tablet by mout h twice daily. gabapentin (NEURONTIN) 100 mg capsule Take 2 capsules by laura th daily at bedtime. From podiatry (Dr. Cordon) pravastatin (PRAVACHOL) 80 mg tablet Take 1 tablet by mout h once daily. For cholesterol. diclofenac sodium (VOLTAREN) 1 % topical gel Apply 2 g to affected area four times daily. timolol maleate (TIMOPTIC) 0.5 % ophthalmic solution U se 1 Drop in both eyes twice daily. Use at 6 AM and 6 PM latanoprost (XALATAN) 0.005 % ophthalmic solution Use 1 Drop in both eyes daily at bedtime. Insulin Broad Top, Disposable, (1ST TIER UNIFINE P ENTIPS) 31 gauge x 3/16 ndle Use as directed 4 times a day. Dx: E11.65 losartan (COZAAR) 100 mg tablet TAKE 1 TABLET EVERY DAY BY M OUTH cholecalciferol (VITAMIN D) 1,000 unit tab table t Take 1 tablet by mouth once daily. BD INSULIN PEN NEEDLE UF 31 gauge x 5/16 ndle 1 Applicator as directed. cyanocobalamin (VITAMIN B-12) 1,000 mcg tab Take 1 tablet by mouth once daily. aspirin(ECOTRIN LOW STRENGTH 81 MG TAB) Take one(1) tablet d aily. REVIEW OF SYSTEMS 12 organ system review was performed with these findings: No change from prior assessment Exceptions: Integumentary: See below Nutritional Status Appetite: good Diet: Regular Albumin/Prealbumin levels: Lab Results Component Value Date ALB 3.8 (L) 12/19/2019 PHYSICAL EXAMINATION Constitutional: Appears about stated age, well nourish ed, no weight loss, no fevers and no chills. Psych: Alert and oriented to person, place and time. Intact memory. Normal limit affect, judgement and insight. Respiratory: Symmetrical exp ansion and effort. No cough, no shortness of breath. Cardiovascular: No chest pain. No edema. Neuro: Normal limit cranial nerves. Musculoskeletal: Normal limit gait. Normal limit symmetry. Normal limit range of motion. Normal limit muscle strength. Normal limit tone of all extremities. Integumentary: Normal skin color, textur e and turgor. No dry, scaly or cracked skin. No ecchymotic areas. No friable skin. No r jesus, lesions, excoriations or black. No diaphoresis. No jaundice, no ruddiness, no skin pa llor. LLE laceration now two due to scar tissue through cent er proximal = 0.4 cm x 0.4 cm x <0.25 cm pink shallow base no odor or drainag e, no s/s of infection Eyes: Pupils are equal, round and reactive to light. Ears: Normal limit hearing. Nose/Mouth/Throat: Normal li cyrus external ear canals and TM. Normal limit teeth, lips and gums. Neck: Normal limit appearance and movements. Trachea midline . Breast: Not assessed. Lymphatic: Not assessed. Abdominal: Not assessed. WOUND PAIN: No pain or discomfort DATA REVIEWED: Chart reviewed. ASSESSMENT/PLAN/TREATMENT RECOMMENDATIONS Apply foam dressing to wound base. Change every 3-5 days. Education provided Treatment demonstrated Questions answered I have spent 15 minutes with the patient for physical and wound assessment, wound cleaning, dressing demonstration and answe ring questions. More than 50% of the time spent with the patient inclu ded education/counselling/coordination of care. Brigitte Parks, PhD, WOCN, CLINICAL NURSE MANAGER Referring Provider: BRIGITTE PARKS [[id number]] Allergies As of Date: 02/07/2020 Noted Allergy Reaction CORTISONE 05/09/2009 14 - Other: See Comments Comments: [place] real hot, as if someone threw boiling water o n him ZESTRIL (LISINOPRIL) 01/29/2009 5 - Intolerance Comments: ARF, hypokalemia Date Reviewed: 02/07/2020 Reviewed by: Semaj Benton Ma - Fully Assessed Reason for Visit: Established Patient [175] Primary Visit Diagnosis:Laceration of left lower leg, initia l encounter [S81.812A] Prescriptions as of 02/07/2020 Sig: LINAGLIPTIN 5 MG TABLET Take 1 tablet by mouth once d* DICLOFENAC 1 % TOPICAL GEL Apply 2 g to affected area fo* FUROSEMIDE 40 MG TABLET Take 1 tablet by mouth once d* BLOOD-GLUCOSE METER KIT Glucose Meter of Choice - Kit* BLOOD GLUCOSE TEST STRIPS Test blood sugar(s) 4 times d* LANCETS Test blood sugar(s) 4 times d* HUMALOG MIX 75-25 KWIKPEN U-1* Inject 20 units breakfast and * METFORMIN ER 500 MG TABLET,EX* Take 1 tablet by mouth daily * NIFEDIPINE ER 90 MG TABLET,EX* Take 1 tablet by mouth once d * CHLORTHALIDONE 25 MG TABLET Take 1 tablet by mouth once d* CARVEDILOL 25 MG TABLET Take 1.5 tablets by mouth twi* CLONIDINE HCL 0.2 MG TABLET Take 1 tablet by mouth twice * GABAPENTIN 100 MG CAPSULE Take 2 capsules by mouth trevin* PRAVASTATIN 80 MG TABLET Take 1 tablet by mouth once d* DICLOFENAC 1 % TOPICAL GEL Apply 2 g to affected area fo* TIMOLOL MALEATE 0.5 % EYE PA* Use 1 Drop in both eyes twice * LATANOPROST 0.005 % EYE DROPS Use 1 Drop in both eyes daily* PEN NEEDLE, DIABETIC 31 GAUGE* Use as directed 4 times a day * LOSARTAN 100 MG TABLET TAKE 1 TABLET EVERY DAY BY MO* CHOLECALCIFEROL (VITAMIN D3) * Take 1 tablet by mouth once d * BD ULTRA-FINE SHORT PEN NEEDL* 1 Applicator as directed. CYANOCOBALAMIN (VIT B-12) 1,0* Take 1 tablet by mouth once d * ECOTRIN LOW STRENGTH 81 MG TA* Take one(1) tablet daily. Problem List As Of Date 02/07/2020 Noted Resolved Asthma [J45.909] 07/07/2015 Anemia in stage 3 chronic kidney disease ([facility]) * Hypertension goal BP (blood pressure) < 140/90 * Hyperlipidemia [E78.5] Polyneuropathy in diabetes ([facility]) [E11.42] 07/27/2005 DIABETES MELLITUS TYPE II UNCONTR UNCOMPL [IMO0*07/27/2005 0 08/09/2008 More... Erectile dysfunction associated with type 2 diaz*07/09/2008 Overweight [E66.3] 07/09/2008 Other specified gastritis without mention of he*09/18/2008 0 07/07/2015 BPH w/o urinary obs/LUTS [N40.0] 09/18/2008 09/08/2011 Background diabetic retinopathy(362.01) ([facility]) [*09/18/2008 0 06/30/2015 Shoulder pain [M25.519] 09/25/2008 03/09/2011 More... 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] 06/22/2019 Pseudophakia of both eyes [Z96.1] 06/22/2019 Type 2 diabetes mellitus with diabetic polyneur*10/11/2019 Type 2 diabetes mellitus with stage 3 chronic k*10/11/2019 Encounter Status:Closed by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] 06/22/2019 Pseudophakia of both eyes [Z96.1] 06/22/2019 Type 2 diabetes mellitus with diabetic polyneur*10/11/2019 Type 2 diabetes mellitus with stage 3 chronic k*10/11/2019 Encounter Status:Closed by PIERRE RILEY MD on 02/05/20 CNOV Office Visit (ENDMED) Normal 02-05-20 [place] Leonid SHIRIN WEST ([id number]) 1945 M [place] Date Time Provider Department ([id number]) 02/05/20 1:00 PM CHANDA PHILLIPS (BECKIE) ENDMED During your visit today, we recorded the following informati on about you: Pulse Blood pressure Weight Height 66/minute 142/70 89.4 kg 1.778 m Chanda Phillips, [employer] SUPERVISOR.CLINICAL NURSE MANAGER 02/05/2020 1:25 PM Signed Reason for Consultation: DM Type 2 Referring Physician: Jesse Glover MD [id number] [facility] [id number] HISTORY OF PRESENT ILLNESS Mr. West is a 74 year old male presenting here today for a follow up of DM Type 2. As I recall, he was initially di agnosed with diabetes 1989.He has been on insulin since 2008 A1C 7.0 on 12/19/2019. Down from 8.9 in September 10/12/19--virtually Fhx of DM in mother, siblings, Maternal Aunt. Under the care of podiatry, nephrology LV with nephrology 12/20/19: mild anemia, secondary hyperpara thyroidism Seeing cardiology in [place].Denies hx of GA, CVA, stents, C ABG/CAD Feeling sluggish about noon. Concerned about taking in sulin and metformin at the same time and that it is contributing Seeing ortho for bursitis after our appointment ? Known complications include: hypertension, hyperlipidemia, retinopathy, peripheral neuropathy and CKD ? Exacerbating factors include: none ? Current diabetes regimen is as follows: 1. Humalog 75/25: 20 units breakfast and 20 units dinner 2. Metformin ER 500 mg at breakfast--reduced dos e secondary to renal function 3. linagliptin 5mg daily Previous DM medications: Glimepiride lantus he is checking his blood glucose 2 times daily. he does not bring a log book today for review. No meter or l og book today ? LDE Blood Sugar Frequency: FBS 110-130 acS 165-170 ? Hypoglycemia frequency: as low as 60 with yard work. ? Hypoglycemia awareness: Yes Regarding symptoms of hypogl ycemia, he is not experiencing any symptoms such as polyuria, polydipsia, nocturia or rapid weight loss or blurry vision, Overall, the patient has no acute complaints at this time. PAST MEDICAL HISTORY Diagnosis Date - Anemia in stage 3 chronic kidney disease (HCC) - Background diabetic retinopathy(362.01) 09/18/2008 [facility] eye. - Cataract of left eye - Chronic kidney disease, unspecified - CKD (chronic kidney disease) stage 3, GFR 30-59 ml/min (HC C) 05/26/2017 - Coloboma of iris OD - Depressive disorder, not elsewhere classified - Erectile dysfunction assoc iated with type 2 diabetes mellitus (HCC) 07/09/2008 - Esophageal reflux - Essential hypertension, benign - Hyperplasia of prostate - Macular edema dme od - Other and unspecified hyperlipidemia - Other specified anemias - Other specified gastritis without mention of hemorrhage - Personal history of colonic polyps 08/04/2016 - Primary open angle glaucoma OU - Proliferative diabetic retinopathy(362.02) - Pseudophakia of right eye - Shoulder pain 09/25/2008 Right. - Tubular adenoma of colon 08/10/2016 - Type II or unspecified typ e diabetes mellitus with ophthalmic manifestations, uncontrolled(250.52) 09/18/2008 iddm - Unspecified asthma(493.90) - Vitreous hemorrhage of left eye ([facility]) PAST SURGICAL HISTORY Procedure Laterality Date - AVASTIN (BEVACIZUMAB) 1.25MG INTRAVITREAL INJECTION OD (RI GHT EYE) Right 04/19/2018 LAST - COLONOS W/REM POLYP SNARE 08/04/2016 Repeat 07/2019 - COLONOSCOP W/ OR W/O BRSH SPEC Colonoscopy - COLONOSCOPY W/BX 07/25/13 Repeat due 2016 - EGD W/O OR W/BRUSH/WASH 2002 EGD - EYE SURGERY HX Right 05/02/2018 Pars plana vitrectomy, membrane peel, endolaser, and air fluid exchange right eye. - LAPAROSCOPIC CHOLEYCYSTECTOMY Oct.2002 Cholecystectomy, lap - PANRETINAL PHOTOCOAGULATION (PRP) OD (RIGHT EYE) Right 10/2014 LAST ; PRP (Panretinal Photocoagulation) OD - PANRETINAL PHOTOCOAGULATION (PRP) OS (LEFT EYE) Left 07/12 #2 ; PRP (Panretinal Photocoagulation) OS - PROSTATECTOMY SUPRAPUBIC SUBTOTAL for BPH - REMV CATARACT EXTRACAP,INSERT LENS 02/07/2007 Cataract Removal right - REMV CATARACT EXTRACAP,INSERT LENS Left 11/16/2016 Cataract Extraction with PC IOL OS - REPAIR ROTATOR CUFF,ACUTE 2008 Rotator cuff repair, Right - VITRECTOMY,MECHANICAL Left 11/16/2016 PPV/MP/EL/AFX OS FAMILY HISTORY Problem Relation Age of Onset - Breast Cancer Mother at age 55 - COPD Father Black lung - Breast Cancer Sister at age 54 - Diabetes Brother - No Ocular Disease No Family History nothing known of Social History Tobacco Use - Smoking status: Former Smoker Types: Cigars - Smokeless tobacco: Never Used - Tobacco comment: quit 40 + years ago Substance Use Topics - Alcohol use: Yes Comment: rarely, 2-3 glasses red wine per month - Drug use: No Allergies As of Date: 02/05/2020 Allergen Noted Reaction CORTISONE 05/09/2009 Other: See Comments ZESTRIL [LISINOPRIL] 01/29/2009 Intolerance Fully Assessed 02/05/2020 Current Outpatient Medications Medication Sig Dispense Refill - linaGLIPtin (TRADJENTA) 5 mg tab Take 1 tablet by mouth once daily. 30 tablet 5 - diclofenac sodium (VOLTAREN) 1 % topic al gel Apply 2 g to affected area four times daily. 200 g 1 - furosemide (LASIX) 40 mg tablet Take 1 tablet by mouth once daily. 90 tablet 3 - blood sugar diagnostic (BLOOD GLUCOSE TEST) test strip Test blood sugar(s) 4 times daily. Dx: Type 2 DM - Uncontrolled E11.65 Insulin: Ye s 200 Strip 11 - Lancets lancets Test blood sugar(s) 4 times daily. Dx: Typ e 2 DM - Uncontrolled E11.65 Insulin: Yes 400 Each 11 - insulin 75/25 lispro protamine/lispro units/mL (CRISTINA LOG MIX 75-25 KWIKPEN) 100 unit/mL (75-25) inpn Inject 20 units breakfast and 20 units dinner 15 mL 5 - metFORMIN ER (GLUCOPHAGE X R) 500 mg 24 hr tablet Take 1 tablet by mouth daily with breakfast. 90 tablet 1 - NIFEdipine ER (PROCARDIA XL) 90 mg 24 hr table t Take 1 tablet by mouth once daily. 90 tablet 3 - chlorthalidone (HYGROTON) 25 mg tablet Take 1 tablet by mouth once daily. 90 tablet 3 - carvedilol (COREG) 25 mg tablet Take 1.5 tablets by mouth twice daily with meals. 270 tablet 3 - cloNIDine HCl (CATAPRES) 0.2 mg tablet Take 1 tablet by mouth twice daily. 180 tablet 3 - gabapentin (NEURONTIN) 100 mg capsule Take 2 capsules by m outh daily at bedtime. From podiatry (Dr. Cordon) - pravastatin (PRAVACHOL) 80 mg tablet Take 1 ta blet by mouth once daily. For cholesterol. 90 tablet 3 - diclofenac sodium (VOLTAREN) 1 % topic al gel Apply 2 g to affected area four times daily. 100 g 0 - timolol maleate (TIMOPTIC) 0.5 % ophth almic solution Use 1 Drop in both eyes twice daily. Use at 6 AM and 6 PM 1 Bottle 1 - latanoprost (XALATAN) 0.005 % ophthalmic solution Use 1 Drop in both eyes daily at bedtime. 1 Bottle 1 - Insulin Broad Top, Disposabl e, (1ST TIER UNIFINE PENTIPS) 31 gauge x 3/16 ndle Use as directed 4 times a day. Dx: E11.65 400 Each 3 - losartan (COZAAR) 100 mg t ablet TAKE 1 TABLET EVERY DAY BY MOUTH 30 tablet 11 - cholecalciferol (VITAMIN D ) 1,000 unit tab tablet Take 1 tablet by mouth once daily. 30 tablet 3 - BD INSULIN PEN NEEDLE UF 31 gauge x 5/16 ndle 1 Berto licator as directed. 3 - cyanocobalamin (VITAMIN B-12) 1,000 mcg tab Take 1 tablet by mouth once daily. - aspirin(ECOTRIN LOW STRENGTH 81 MG TAB) Take one(1) tablet daily. 0 - Blood-Glucose Meter monitoring kit Glucose Met er of Choice - Kit - Dx: Type 2 DM - Uncontrolled E11.65 1 Each 0 No current facility-administered medications for this visit. REVIEW OF SYSTEMS Review of Systems Constitutional: Negative for fever and chills. Respiratory: Negative for cough and difficulty breathing. Cardiovascular: Negative for chest pain and palpitations. Gastrointestinal: Negative for nausea, vomiting, diarrhea and constipation. PHYSICAL EXAMINATION BP 142/70 (BP Site: Left Arm, BP Positio n: Sitting, BP Cuff Size: Large Adult) Pulse 66 Ht 177.8 cm (5' 10) Wt 89.4 kg (197 lb 3.2 oz) SpO 2 96% BMI 28.3 kg/m2 Physical Exam Constitutional: Appearance: Normal appearance. HENT: Head: Normocephalic and atraumatic. Cardiovascular: Rate and Rhythm: Normal rate and regular rhythm. Pulmonary: Effort: Pulmonary effort is normal. Breath sounds: Normal breath sounds. Skin: General: Skin is warm and dry. Neurological: Mental Status: He is alert and oriented to person, place, an d time. Psychiatric: Mood and Affect: Mood normal. Behavior: Behavior normal. DATA Creatinine Date Value Ref Range Status 12/19/2019 1.47 (H) 0.73 - 1.22 mg/dL Final Hemoglobin A1C (%) Date Value 12/19/2019 7.0 ) No components found for: URINEALBUMIN Cholesterol, Total (mg/dL) Date Value 12/19/2019 162 HDL Cholesterol (mg/dL) Date Value 12/19/2019 49 LDL Cholesterol (mg/dL) Date Value 12/19/2019 94 Triglyceride (mg/dL) Date Value 12/19/2019 95 IMPRESSION: Mr. West is a 74 year old m juju here for evaluation of DM Type 2 complicated by hypertension, hyperlipidemia, retinopathy, peripheral neurop athy and CKD RECOMMENDATIONS: (E11.3593, Z79.4) Type 2 diabetes mellitus with both eyes af fected by proliferative retinopathy without macula r edema, with long-term current use of insulin (HCC) (primary encounter diagnosis) Comment: Glycemic control has improved. I do not think the insulin along with metformin is causing him to feel sluggish. I sug gest checking his blood sugar at that time to ensure it is not low in which case the insul in dose can be modified. Plan: Continue the same diabetes medication. Follow up in 6 months with labs a week prior (E11.42, Z79.4) Type 2 diabetes mellitus with diabetic neel yneuropathy, with long-term current use of insulin (HCC) Comment: Glycemic control is improved Plan: Continue the same (E11.22, N18.3, Z79.4) Type 2 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 disease, with long-term current use of insulin (HCC) Comment: Glycemic control is improved. Plan: continue same Follow up with nephrology as planned (I10) Hypertension goal BP (blood pressure) < 140/90 Comment/Plan: Managed per PCP (E78.5) Hyperlipidemia, unspecified hyperlipidemia type Comment: taking pravastatin Plan: Lipid panel at follow up Chanda Phillips APRN, DEJON, [place] Endocrinology [facility]/[place] [id number] Fax: Chanda Phillips APRN.CLINICAL NURSE MANAGER 02/05/2020 1:17 PM Addendum 1. Continue the same diabetes medication. 2. Follow up in 6 months with labs a week prior Chanda Phillips APRN, DEJON, [place] Endocrinology [facility]/[place] [address] Fax: Referring Provider: JESSE GLOVER [[id number]] Allergies As of Date: 02/05/2020 Noted Allergy Reaction CORTISONE 05/09/2009 14 - Other: See Comments Comments: [place] real hot, as if someone threw boiling water o n him ZESTRIL (LISINOPRIL) 01/29/2009 5 - Intolerance Comments: ARF, hypokalemia Date Reviewed: 02/05/2020 Reviewed by: Chanda Phillips - Fully Assessed Reason for Visit: Diabetes [34] Primary Visit Diagnosis: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, with long-term current use of insulin ([facility]) [E11.3593, Z79.4] Other Visit Diagnoses:Type 2 diabetes mellitus with di abetic polyneuropathy, with long-term current use of insulin ([facility]) [E11.42, Z79.4] Type 2 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 disease, with long-term current use of insulin ([facility]) [E11.22, N18.3, Z79.4] Hypertension goal BP (blood pressure) < 140/90 [I10] Hyperlipidemia, unspecified hyperlipidemia type [E78.5] Order(s):linaGLIPtin (TRADJENTA) 5 mg tabTake 1 tablet by [facility] once daily.Disp: 30 tabletRfl: 5 COMP METABOLIC PANEL [SQCMP] Order #: [id number] FUTURE HGB A1C [ZNDIM2O] Order #: [id number] FUTURE LIPID PANEL BASIC [SQLIPB] Order #: [id number] FUTURE ALBUMIN/CREAT RATIO RND UR [SQUACR] Order #: [id number] FUTU RE Prescriptions as of 02/05/2020 Sig: LINAGLIPTIN 5 MG TABLET Take 1 tablet by mouth once d* DICLOFENAC 1 % TOPICAL GEL Apply 2 g to affected area fo* FUROSEMIDE 40 MG TABLET Take 1 tablet by mouth once d* BLOOD GLUCOSE TEST STRIPS Test blood sugar(s) 4 times d* LANCETS Test blood sugar(s) 4 times d* HUMALOG MIX 75-25 KWIKPEN U-1* Inject 20 units breakfast and * METFORMIN ER 500 MG TABLET,EX* Take 1 tablet by mouth daily * NIFEDIPINE ER 90 MG TABLET,EX* Take 1 tablet by mouth once d * CHLORTHALIDONE 25 MG TABLET Take 1 tablet by mouth once d* CARVEDILOL 25 MG TABLET Take 1.5 tablets by mouth twi* CLONIDINE HCL 0.2 MG TABLET Take 1 tablet by mouth twice * GABAPENTIN 100 MG CAPSULE Take 2 capsules by mouth trevin* PRAVASTATIN 80 MG TABLET Take 1 tablet by mouth once d* DICLOFENAC 1 % TOPICAL GEL Apply 2 g to affected area fo* TIMOLOL MALEATE 0.5 % EYE PA* Use 1 Drop in both eyes twice * LATANOPROST 0.005 % EYE DROPS Use 1 Drop in both eyes daily* PEN NEEDLE, DIABETIC 31 GAUGE* Use as directed 4 times a day * LOSARTAN 100 MG TABLET TAKE 1 TABLET EVERY DAY BY MO* CHOLECALCIFEROL (VITAMIN D3) * Take 1 tablet by mouth once d * BD ULTRA-FINE SHORT PEN NEEDL* 1 Applicator as directed. CYANOCOBALAMIN (VIT B-12) 1,0* Take 1 tablet by mouth once d * ECOTRIN LOW STRENGTH 81 MG TA* Take one(1) tablet daily. BLOOD-GLUCOSE METER KIT Glucose Meter of Choice - Kit* Problem List As Of Date 02/05/2020 Noted Resolved Asthma [J45.909] 07/07/2015 Anemia in stage 3 chronic kidney disease (HCC) * Hypertension goal BP (blood pressure) < 140/90 * Hyperlipidemia [E78.5] Polyneuropathy in diabetes (HCC) [E11.42] 07/27/2005 DIABETES MELLITUS TYPE II UNCONTR UNCOMPL [IMO0*07/27/2005 0 08/09/2008 More... Erectile dysfunction associated with type 2 diaz*07/09/2008 Overweight [E66.3] 07/09/2008 Other specified gastritis without mention of he*09/18/2008 0 07/07/2015 BPH w/o urinary obs/LUTS [N40.0] 09/18/2008 09/08/2011 Background diabetic retinopathy(362.01) (HCC) [*09/18/2008 0 06/30/2015 Shoulder pain [M25.519] 09/25/2008 03/09/2011 More... 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] 06/22/2019 Pseudophakia of both eyes [Z96.1] 06/22/2019 Type 2 diabetes mellitus with diabetic polyneur*10/11/2019 Type 2 diabetes mellitus with stage 3 chronic k*10/11/2019 Other instructions from your clinician: 1. Continue the same diabetes medication. 2. Follow up in 6 months with labs a week prior Chanda Phillips APRN, PATRICKC, CDE Endocrinology [facility] Medical Office [facility]/[address], [address] [place], [place] [address] Fax: Prescriptions ordered this encounter Disp Refills Start End LINAGLIPTIN 5 MG TABLET 30 t* 5 02/05/2020 Route: ORAL Sig: Take 1 tablet by mouth once daily. Medications Discontinued During This Encounter Prescriptions - linagliptin 5 mg tab (Discontinued) Take 5 mg by mouth once daily. Follow-up and Disposition History Recorded Encounter Status:Closed by CHANDA PHILLIPS on 02/05/20 progress on 2020-01 PROGRESS HNO ID: [id number] Normal 02-01-2020 [place] Author: Brigitte Parks [facility] Service: ? [place] Author Type: Nurse Practitioner ([id number]) Type: Progress Notes Filed: 02/04/2020 5:50 PM Note Text: VASCULAR SURGERY WOUND OSTOMY CONTINENCE CONSULTATION CHIEF COMPLAINT: Wound check and evaluation HISTORY OF PRESENT ILLNESS: LLE laceration from hitting leg against frame of bed PAST MEDICAL HISTORY Diagnosis Date - Anemia in stage 3 chronic kidney disease (HCC) - Background diabetic retinopathy(362.01) 09/18/2008 [facility] eye. - Cataract of left eye - Chronic kidney disease, unspecified - CKD (chronic kidney disease) stage 3, GFR 30-59 ml/min (HC C) 05/26/2017 - Coloboma of iris OD - Depressive disorder, not elsewhere classified - Erectile dysfunction associated with type 2 diabetes isai garcia ([facility]) 07/09/2008 - Esophageal reflux - Essential hypertension, benign - Hyperplasia of prostate - Macular edema dme od - Other and unspecified hyperlipidemia - Other specified anemias - Other specified gastritis without mention of hemorrhage - Personal history of colonic polyps 08/04/2016 - Primary open angle glaucoma OU - Proliferative diabetic retinopathy(362.02) - Pseudophakia of right eye - Shoulder pain 09/25/2008 Right. - Tubular adenoma of colon 08/10/2016 - Type II or unspecified type diabetes mellitus with ophthal bj manifestations, uncontrolled(250.52) 09/18/2008 iddm - Unspecified asthma(493.90) - Vitreous hemorrhage of left eye (HCC) PAST SURGICAL HISTORY Procedure Laterality Date - AVASTIN (BEVACIZUMAB) 1.25MG INTRAVITREAL INJECTION OD (RI GHT EYE) Right 04/19/2018 LAST - COLONOS W/REM POLYP SNARE 08/04/2016 Repeat 07/2019 - COLONOSCOP W/ OR W/O BRSH SPEC Colonoscopy - COLONOSCOPY W/BX 07/25/13 Repeat due 2016 - EGD W/O OR W/BRUSH/WASH 2002 EGD - EYE SURGERY HX Right 05/02/2018 Pars plana vitrectomy, membrane peel, endolaser, and air flu id exchange right eye. - LAPAROSCOPIC CHOLEYCYSTECTOMY Cholecystectomy, lap - PANRETINAL PHOTOCOAGULATION (PRP) OD (RIGHT EYE) Right 10/2014 LAST ; PRP (Panretinal Photocoagulation) OD - PANRETINAL PHOTOCOAGULATION (PRP) OS (LEFT EYE) Left 07/12 #2 ; PRP (Panretinal Photocoagulation) OS - PROSTATECTOMY SUPRAPUBIC SUBTOTAL for BPH - REMV CATARACT EXTRACAP,INSERT LENS 02/07/2007 Cataract Removal right - REMV CATARACT EXTRACAP,INSERT LENS Left 11/16/2016 Cataract Extraction with PC IOL OS - REPAIR ROTATOR CUFF,ACUTE 2008 Rotator cuff repair, Right - VITRECTOMY,MECHANICAL Left 11/16/2016 PPV/MP/EL/AFX OS ALLERGIES Allergen Reactions - Cortisone Other: See Comments [place] real hot, as if someone threw boiling water on him - Zestril [Lisinopril] Intolerance ARF, hypokalemia Social History Tobacco Use - Smoking status: Former Smoker Types: Cigars - Smokeless tobacco: Never Used - Tobacco comment: quit 40 + years ago Substance Use Topics - Alcohol use: Yes Comment: rarely, 2-3 glasses red wine per month - Drug use: No FAMILY HISTORY Problem Relation Age of Onset - Breast Cancer Mother at age 55 - COPD Father Black lung - Breast Cancer Sister at age 54 - Diabetes Brother - No Ocular Disease No Family History nothing known of MEDICATIONS: diclofenac sodium (VOLTAREN) 1 % topical gel Apply 2 g to af fected area four times daily. furosemide (LASIX) 40 mg tablet Take 1 tablet by mouth once daily. Blood-Glucose Meter monitoring kit Glucose Meter of Choice - Kit - Dx: Type 2 DM - Uncontrolled E11.65 blood sugar diagnostic (BLOOD GLUCOSE TEST) test strip Test blood sugar(s) 4 times daily. Dx: Type 2 DM - Uncontrolled E11. Insulin: Yes Lancets lancets Test blood sugar(s) 4 times daily. Dx: Type 2 DM - Uncontrolled E11.65 Insulin: Yes insulin 75/25 lispro protamine/lispro units/mL (HUMALOG MIX 75-25 KWIKPEN) 100 unit/mL (75-25) inpn Inject 20 units breakfast and 20 un its dinner metFORMIN ER (GLUCOPHAGE XR) 500 mg 24 hr tablet Take 1 tabl et by mouth daily with breakfast. NIFEdipine ER (PROCARDIA XL) 90 mg 24 hr tablet Take 1 table t by mouth once daily. chlorthalidone (HYGROTON) 25 mg tablet Take 1 tablet by mout h once daily. carvedilol (COREG) 25 mg tablet Take 1.5 tablets by mouth tw ice daily with meals. cloNIDine HCl (CATAPRES) 0.2 mg tablet Take 1 tablet by mout h twice daily. gabapentin (NEURONTIN) 100 mg capsule Take 2 capsules by laura th daily at bedtime. From podiatry (Dr. Cordon) pravastatin (PRAVACHOL) 80 mg tablet Take 1 tablet by mouth once daily. For cholesterol. diclofenac sodium (VOLTAREN) 1 % topical gel Apply 2 g to af fected area four times daily. timolol maleate (TIMOPTIC) 0.5 % ophthalmic solution Use 1 D rop in both eyes twice daily. Use at 6 AM and 6 PM latanoprost (XALATAN) 0.005 % ophthalmic solution Use 1 Drop in both eyes daily at bedtime. Insulin Broad Top, Disposable, (1ST TIER UNIFINE PENTIPS) 31 g auge x 09/09 ndle Use as directed 4 times a day. Dx: E11.65 losartan (COZAAR) 100 mg tablet TAKE 1 TABLET EVERY DAY BY M OUTH cholecalciferol (VITAMIN D) 1,000 unit tab tablet Take 1 tab let by mouth once daily. BD INSULIN PEN NEEDLE UF 31 gauge x 11/09 ndle 1 Applicator as directed. cyanocobalamin (VITAMIN B-12) 1,000 mcg tab Take 1 tablet by mouth once daily. linagliptin 5 mg tab Take 5 mg by mouth once daily. aspirin(ECOTRIN LOW STRENGTH 81 MG TAB) Take one(1) tablet d aily. REVIEW OF SYSTEMS 12 organ system review was performed with these findings: Constitutional: Within Normal Limits Eyes: Within Normal Limits Ears/Nose/Mouth/Throat: Within Normal Limits Respiratory: Within Normal Limits Cardiovascular: Within Normal Limits Gastrointestinal: Within Normal Limits Genitourinary: Within Normal Limits Musculoskeletal: Within Normal Limits Neurologic: Within Normal Limits Psychiatric: Within Normal Limits Endocrinological: Within Normal Limits Hematologic: Within Normal Limits Immunologic: Within Normal Limits Integumentary: See below Nutritional Status Appetite: fair Diet: Regular Albumin/Prealbumin levels: Lab Results Component Value Date ALB 3.8 (L) 12/19/2019 PHYSICAL EXAMINATION Constitutional: Appears about stated age, well nourished, no weight loss, no fevers and no chills. Psych: Alert and oriented to person, place and time. Intact memory. Normal limit affect, judgement and insight. Respiratory: Symmetrical expansion and effort. No cough, no shortness of breath. Cardiovascular: No chest pain. No edema. Neuro: Normal limit cranial nerves. Musculoskeletal: Normal limit gait. Normal limit symmetry. N ormal limit range of motion. Normal limit muscle strength. Normal limit tone of all extremities. Integumentary: Normal skin color, texture and turgor. No dry , scaly or cracked skin. No ecchymotic areas. No friable skin. No rash, lesions, excoriations or black. No diaphoresis. No jaundice, no ruddi ness, no skin pallor. LLE laceration with skin flap over most of wound base, pink shallow base no odor or drainage, no s/s of infection Eyes: Pupils are equal, round and reactive to light. Ears: Normal limit hearing. Nose/Mouth/Throat: Normal limit external ear canals and TM. Normal limit teeth, lips and gums. Neck: Normal limit appearance and movements. Trachea midline . Breast: Not assessed. Lymphatic: Not assessed. Abdominal: Not assessed. WOUND PAIN: No pain or discomfort DATA REVIEWED: Chart reviewed. ASSESSMENT/PLAN/TREATMENT RECOMMENDATIONS Apply Skin prep to wound base. Cover with gauze 4x4. Secure with paper tape. Change daily. Education provided Treatment demonstrated Questions answered I have spent 30 minutes with the patient for physical and wo und assessment, wound cleaning, dressing demonstration and answe ring questions. More than 50% of the time spent with the patient included education/counselling/coordination of care. Brigitte Parks, PhD, WOCN, CLINICAL NURSE MANAGER cnov on 2020-02-01 CNOV Office Visit (VASSWS) Normal 02-01-20 [place] SHIRIN Whipple SR. ([id number]) 1945 M [place] Date Time Provider Department ([id number]) 02/01/20 8:00 AM BRIGITTE PARKS VASSWS During your visit today, we recorded the following informati on about you: Brigitte Parks, PhD, C[employer]UT[employer] SUPERVISOR.CLINICAL NURSE MANAGER 02/04/2020 5:50 PM Signed VASCULAR SURGERY WOUND OSTOMY CONTINENCE CONSULTATION CHIEF COMPLAINT: Wound check and evaluation HISTORY OF PRESENT ILLNESS: LLE laceration from hitting leg against frame of bed PAST MEDICAL HISTORY Diagnosis Date - Anemia in stage 3 chronic kidney disease (HCC) - Background diabetic retinopathy(362.01) 09/18/2008 [facility] eye. - Cataract of left eye - Chronic kidney disease, unspecified - CKD (chronic kidney disease) stage 3, GFR 30-59 ml/min (HC C) 05/26/2017 - [place] of [place] OD - Depressive disorder, not elsewhere classified - Erectile dysfunction assoc iated with type 2 diabetes mellitus (HCC) 07/09/2008 - Esophageal reflux - Essential hypertension, benign - Hyperplasia of prostate - Macular edema dme od - Other and unspecified hyperlipidemia - Other specified anemias - Other specified gastritis without mention of hemorrhage - Personal history of colonic polyps 08/04/2016 - Primary open angle glaucoma OU - Proliferative diabetic retinopathy(362.02) - Pseudophakia of right eye - Shoulder pain 09/25/2008 Right. - Tubular adenoma of colon 08/10/2016 - Type II or unspecified typ e diabetes mellitus with ophthalmic manifestations, uncontrolled(250.52) 09/18/2008 [facility] - Unspecified asthma(493.90) - Vitreous hemorrhage of left eye (HCC) PAST SURGICAL HISTORY Procedure Laterality Date - AVASTIN (BEVACIZUMAB) 1.25MG INTRAVITREAL INJECTION OD (RI GHT EYE) Right 04/19/2018 LAST - COLONOS W/REM POLYP SNARE 08/04/2016 Repeat 07/2019 - COLONOSCOP W/ OR W/O BRSH SPEC Colonoscopy - COLONOSCOPY W/BX 07/25/13 Repeat due 2016 - EGD W/O OR W/BRUSH/WASH 2002 EGD - EYE SURGERY HX Right 05/02/2018 Pars plana vitrectomy, membrane peel, endolaser, and air fluid exchange right eye. - LAPAROSCOPIC CHOLEYCYSTECTOMY Cholecystectomy, lap - PANRETINAL PHOTOCOAGULATION (PRP) OD (RIGHT EYE) Right 10/2014 LAST ; PRP (Panretinal Photocoagulation) OD - PANRETINAL PHOTOCOAGULATION (PRP) OS (LEFT EYE) Left 07/12 #2 ; PRP (Panretinal Photocoagulation) OS - PROSTATECTOMY SUPRAPUBIC SUBTOTAL for BPH - REMV CATARACT EXTRACAP,INSERT LENS 02/07/2007 Cataract Removal right - REMV CATARACT EXTRACAP,INSERT LENS Left 11/16/2016 Cataract Extraction with PC IOL OS - REPAIR ROTATOR CUFF,ACUTE 2008 Rotator cuff repair, Right - VITRECTOMY,MECHANICAL Left 11/16/2016 PPV/MP/EL/AFX OS ALLERGIES Allergen Reactions - Cortisone Other: See Comments [place] real hot, as if someone threw boiling water on him - Zestril [Lisinopril] Intolerance ARF, hypokalemia Social History Tobacco Use - Smoking status: Former Smoker Types: Cigars - Smokeless tobacco: Never Used - Tobacco comment: quit 40 + years ago Substance Use Topics - Alcohol use: Yes Comment: rarely, 2-3 glasses red wine per month - Drug use: No FAMILY HISTORY Problem Relation Age of Onset - Breast Cancer Mother at age 55 - COPD Father Black lung - Breast Cancer Sister at age 54 - Diabetes Brother - No Ocular Disease No Family History nothing known of MEDICATIONS: diclofenac sodium (VOLTAREN) 1 % topical gel Apply 2 g to affected area four times daily. furosemide (LASIX) 40 mg tablet Take 1 tablet by mouth once daily. Blood-Glucose Meter monitoring kit Glucose Meter of Choice - Kit - Dx: Type 2 DM - Uncontrolled E11.65 blood sugar diagnostic (BLOOD GLUCOSE TEST) test strip Test blood sugar(s) 4 times daily. Dx: Type 2 DM - Uncontrolled E11.65 Insulin: Ye s Lancets lancets Test blood sugar(s) 4 times daily. Dx: Type 2 DM - Uncontrolled E11.65 Insulin: Yes insulin 75/25 lispro protamine/lispro un its/mL (HUMALOG MIX 75-25 KWIKPEN) 100 unit/mL (75-25) inpn Inject 20 units breakfast and 20 units dinner metFORMIN ER (GLUCOPHAGE XR) 500 mg 24 hr tablet Take 1 tablet by mouth daily with breakfast. NIFEdipine ER (PROCARDIA XL) 90 mg 24 hr tablet Take 1 tab let by mouth once daily. chlorthalidone (HYGROTON) 25 mg tablet Take 1 tablet by mout h once daily. carvedilol (COREG) 25 mg tablet Take 1.5 tablets by mouth tw ice daily with meals. cloNIDine HCl (CATAPRES) 0.2 mg tablet Take 1 tablet by mout h twice daily. gabapentin (NEURONTIN) 100 mg capsule Take 2 capsules by laura th daily at bedtime. From podiatry (Dr. Cordon) pravastatin (PRAVACHOL) 80 mg tablet Take 1 tablet by mout h once daily. For cholesterol. diclofenac sodium (VOLTAREN) 1 % topical gel Apply 2 g to affected area four times daily. timolol maleate (TIMOPTIC) 0.5 % ophthalmic solution U se 1 Drop in both eyes twice daily. Use at 6 AM and 6 PM latanoprost (XALATAN) 0.005 % ophthalmic solution Use 1 Drop in both eyes daily at bedtime. Insulin Broad Top, Disposable, (1ST TIER UNIFINE P ENTIPS) 31 gauge x 3/16 ndle Use as directed 4 times a day. Dx: E11.65 losartan (COZAAR) 100 mg tablet TAKE 1 TABLET EVERY DAY BY M OUTH cholecalciferol (VITAMIN D) 1,000 unit tab table t Take 1 tablet by mouth once daily. BD INSULIN PEN NEEDLE UF 31 gauge x 5/16 ndle 1 Applicator as directed. cyanocobalamin (VITAMIN B-12) 1,000 mcg tab Take 1 tablet by mouth once daily. linagliptin 5 mg tab Take 5 mg by mouth once daily. aspirin(ECOTRIN LOW STRENGTH 81 MG TAB) Take one(1) tablet d aily. REVIEW OF SYSTEMS 12 organ system review was performed with these findings: Constitutional: Within Normal Limits Eyes: Within Normal Limits Ears/Nose/Mouth/Throat: Within Normal Limits Respiratory: Within Normal Limits Cardiovascular: Within Normal Limits Gastrointestinal: Within Normal Limits Genitourinary: Within Normal Limits Musculoskeletal: Within Normal Limits Neurologic: Within Normal Limits Psychiatric: Within Normal Limits Endocrinological: Within Normal Limits Hematologic: Within Normal Limits Immunologic: Within Normal Limits Integumentary: See below Nutritional Status Appetite: fair Diet: Regular Albumin/Prealbumin levels: Lab Results Component Value Date ALB 3.8 (L) 12/19/2019 PHYSICAL EXAMINATION Constitutional: Appears about stated age, well nourish ed, no weight loss, no fevers and no chills. Psych: Alert and oriented to person, place and time. Intact memory. Normal limit affect, judgement and insight. Respiratory: Symmetrical exp ansion and effort. No cough, no shortness of breath. Cardiovascular: No chest pain. No edema. Neuro: Normal limit cranial nerves. Musculoskeletal: Normal limit gait. Normal limit symmetry. Normal limit range of motion. Normal limit muscle strength. Normal limit tone of all extremities. Integumentary: Normal skin color, textur e and turgor. No dry, scaly or cracked skin. No ecchymotic areas. No friable skin. No r jesus, lesions, excoriations or black. No diaphoresis. No jaundice, no ruddiness, no skin pa llor. LLE laceration with skin flap over most of wound base, pin k shallow base no odor or drainage, no s/s of infection Eyes: Pupils are equal, round and reactive to light. Ears: Normal limit hearing. Nose/Mouth/Throat: Normal li cyrus external ear canals and TM. Normal limit teeth, lips and gums. Neck: Normal limit appearance and movements. Trachea midline . Breast: Not assessed. Lymphatic: Not assessed. Abdominal: Not assessed. WOUND PAIN: No pain or discomfort DATA REVIEWED: Chart reviewed. ASSESSMENT/PLAN/TREATMENT RECOMMENDATIONS Apply Skin prep to wound base. Cover with gauze 4x4. S ecure with paper tape. Change daily. Education provided Treatment demonstrated Questions answered I have spent 30 minutes with the patient for physical and wound assessment, wound cleaning, dressing demonstration and answe ring questions. More than 50% of the time spent with the patient inclu ded education/counselling/coordination of care. Brigitte Parks, PhD, WOCN, CLINICAL NURSE MANAGER Referring Provider: JESSE GLOVER [[id number]] Allergies As of Date: 02/01/2020 Noted Allergy Reaction CORTISONE 05/09/2009 14 - Other: See Comments Comments: [place] real hot, as if someone threw boiling water o n him ZESTRIL (LISINOPRIL) 01/29/2009 5 - Intolerance Comments: ARF, hypokalemia Date Reviewed: 02/01/2020 Reviewed by: Semaj Benton Ma - Fully Assessed Reason for Visit: New Patient [172] Primary Visit Diagnosis:Laceration of left lower leg, initia l encounter [S81.812A] Prescriptions as of 02/01/2020 Sig: DICLOFENAC 1 % TOPICAL GEL Apply 2 g to affected area fo* FUROSEMIDE 40 MG TABLET Take 1 tablet by mouth once d* BLOOD-GLUCOSE METER KIT Glucose Meter of Choice - Kit* BLOOD GLUCOSE TEST STRIPS Test blood sugar(s) 4 times d* LANCETS Test blood sugar(s) 4 times d* HUMALOG MIX 75-25 KWIKPEN U-1* Inject 20 units breakfast and * METFORMIN ER 500 MG TABLET,EX* Take 1 tablet by mouth daily * NIFEDIPINE ER 90 MG TABLET,EX* Take 1 tablet by mouth once d * CHLORTHALIDONE 25 MG TABLET Take 1 tablet by mouth once d* CARVEDILOL 25 MG TABLET Take 1.5 tablets by mouth twi* CLONIDINE HCL 0.2 MG TABLET Take 1 tablet by mouth twice * GABAPENTIN 100 MG CAPSULE Take 2 capsules by mouth trevin* PRAVASTATIN 80 MG TABLET Take 1 tablet by mouth once d* DICLOFENAC 1 % TOPICAL GEL Apply 2 g to affected area fo* TIMOLOL MALEATE 0.5 % EYE PA* Use 1 Drop in both eyes twice * LATANOPROST 0.005 % EYE DROPS Use 1 Drop in both eyes daily* PEN NEEDLE, DIABETIC 31 GAUGE* Use as directed 4 times a day * LOSARTAN 100 MG TABLET TAKE 1 TABLET EVERY DAY BY MO* CHOLECALCIFEROL (VITAMIN D3) * Take 1 tablet by mouth once d * BD ULTRA-FINE SHORT PEN NEEDL* 1 Applicator as directed. CYANOCOBALAMIN (VIT B-12) 1,0* Take 1 tablet by mouth once d * LINAGLIPTIN 5 MG TABLET Take 5 mg by mouth once daily. ECOTRIN LOW STRENGTH 81 MG TA* Take one(1) tablet daily. Problem List As Of Date 02/01/2020 Noted Resolved Asthma [J45.909] 07/07/2015 Anemia in stage 3 chronic kidney disease (HCC) * Hypertension goal BP (blood pressure) < 140/90 * Hyperlipidemia [E78.5] Polyneuropathy in diabetes (HCC) [E11.42] 07/27/2005 DIABETES MELLITUS TYPE II UNCONTR UNCOMPL [IMO0*07/27/2005 0 08/09/2008 More... Erectile dysfunction associated with type 2 diaz*07/09/2008 Overweight [E66.3] 07/09/2008 Other specified gastritis without mention of he*09/18/2008 0 07/07/2015 BPH w/o urinary obs/LUTS [N40.0] 09/18/2008 09/08/2011 Background diabetic retinopathy(362.01) ([facility]) [*09/18/2008 0 06/30/2015 Shoulder pain [M25.519] 09/25/2008 03/09/2011 More... 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 Author Type: Physician Type: Progress Notes Filed: 01/30/2020 12:48 PM Note Text: This note was created using [employer]. Subjective Shirin Brett Olvera. is a 74 year old male here for a wound chec k. He vaguely recalled bumping his left leg 2 weeks ago. He went to [facility] ER January 19 where there was a history of a blister on his lef t leg that he popped open and obtained serous fluid. He was advised to berto ly bacitracin ointment. He went to [facility] ER January 22, where he w as advised to continue with wound care. He felt his wound was slow in heal ing over 2 weeks. He also had an olecranon effusion that was no improving with compression recommended by orthopedics. His hypertension continued to be resistant, and was managed by nephrology. Colonoscopy was due and Dr. Xiong was collaboration with h is raise driller of optimizing the prep for his Chronic kidney d isease. Review of Systems Constitutional: Negative. Respiratory: Negative. Cardiovascular: Negative. Gastrointestinal: Negative. Skin: Positive for wound. Objective BP (P) 156/69 (BP Site: Right Arm, BP Position: Sitting, BP Cuff Size: Large Adult) Pulse (P) 62 Temp 36.8 ?C (98.2 ?F) (Tempor al Artery) Resp 20 Wt 88.5 kg (195 lb) BMI 27.98 kg/m? Physical Exam Constitutional: General: He is not in acute distress. Musculoskeletal: Left elbow: He exhibits effusion. No tenderness found. Comments: Left olecranon bursa effusion. Skin: Comments: V shaped laceration of the left walter 1.5 x 1 cm, s kin flap of questionable viability, no discharge, no signs of infection. Neurological: Mental Status: He is alert. Assessment and Plan 1. Laceration of left lower extremity, initial encounter - I CD9: 894.0, ICD10: S81.812A (primary diagnosis) Delayed healing. Refer to Kenrick Parks CNP, wound care, vascula r surgery. - CONSULT TO SKIN CARE TEAM 2. Olecranon bursitis of left elbow - ICD9: 726.33, ICD10: M 70.22 He had orthopedic follow up. He was advised to discuss aspir ation of this bursa. Jesse Glover MD cnov on 2020-01-30 CNOV Office Visit (INTMWS) Normal 01-30-20 20 [place] SHIR[place] Whipple SR. ([id number]) 1945 [facility] Date Time Provider Department ([id number]) 01/30/20 11:40 AM JESSE GLOVER INTMWS During your visit today, we recorded the following informati on about you: Temperature Pulse Respiration Blood pressure 98.2 degrees 68/minute 20/minute 160/68 Weight 88.5 kg Jesse Glover MD 01/30/2020 12:48 PM Signed This note was created using [employer]. Subjective Shirin West Sr. is a 74 year old male here for a wound chec k. He vaguely recalled bumping his left leg 2 weeks ago. He went to [facility] ER January 19 where there was a history of a blister o n his left leg that he popped open and obtained serous fluid. He was advised to appl y bacitracin ointment. He went to [facility] ER January 22, where he was advised to continue with wound care. He felt his wound was slow in healing over 2 wee ks. He also had an olecranon effusion that was no improving with compression recommended by orthopedics. His hypertension continued to be resistant, and was managed by nephrology. Colonoscopy was due and Dr. Xiong was collaboration with his raise driller of optimizing the prep for his Chronic kidney disease. Review of Systems Constitutional: Negative. Respiratory: Negative. Cardiovascular: Negative. Gastrointestinal: Negative. Skin: Positive for wound. Objective BP (P) 156/69 (BP Site: Right Arm, BP Position: Sittin g, BP Cuff Size: Large Adult) Pulse (P) 62 Temp 36.8 ?C (98.2 ?F) (Temporal Art mari) Resp 20 Wt 88.5 kg (195 lb) BMI 27.98 kg/m? Physical Exam Constitutional: General: He is not in acute distress. Musculoskeletal: Left elbow: He exhibits effusion. No tenderness found. Comments: Left olecranon bursa effusion. Skin: Comments: V shaped laceration of the left walter 1.5 x 1 cm, s kin flap of questionable viability, no discharge, no signs of infection. Neurological: Mental Status: He is alert. Assessment and Plan 1. Laceration of left lower extremity, i nitial encounter - ICD9: 894.0, ICD10: S81.812A (primary diagnosis) Delayed healing. Refer to Kenrick Parks CNP, wound care, vascula r surgery. - CONSULT TO SKIN CARE TEAM 2. Olecranon bursitis of left elbow - ICD9: 726.33, ICD10: M 70.22 He had orthopedic follow up. He was advised to discuss aspir ation of this bursa. Jesse Glover MD Referring Provider: JESSE GLOVER [[id number]] Allergies As of Date: 01/30/2020 Noted Allergy Reaction CORTISONE 05/09/2009 14 - Other: See Comments Comments: [place] real hot, as if someone threw boiling water o n him ZESTRIL (LISINOPRIL) 01/29/2009 5 - Intolerance Comments: ARF, hypokalemia Date Reviewed: 01/30/2020 Reviewed by: Roma Hawkins LPN - Fully Assessed Reason for Visit: Wound Check [133] Primary Visit Diagnosis:Laceration of left lower extremity, initial encounter [S81.812A] Other Visit Diagnosis:Olecranon bursitis of left elbow [M70. 22] Order(s):CONSULT TO SKIN CARE TEAM [[id number]] Order #: [id number]: 1 Prescriptions as of 01/30/2020 Sig: DICLOFENAC 1 % TOPICAL GEL Apply 2 g to affected area fo* FUROSEMIDE 40 MG TABLET Take 1 tablet by mouth once d* BLOOD-GLUCOSE METER KIT Glucose Meter of Choice - Kit* BLOOD GLUCOSE TEST STRIPS Test blood sugar(s) 4 times d* LANCETS Test blood sugar(s) 4 times d* HUMALOG MIX 75-25 KWIKPEN U-1* Inject 20 units breakfast and * METFORMIN ER 500 MG TABLET,EX* Take 1 tablet by mouth daily * NIFEDIPINE ER 90 MG TABLET,EX* Take 1 tablet by mouth once d * CHLORTHALIDONE 25 MG TABLET Take 1 tablet by mouth once d* CARVEDILOL 25 MG TABLET Take 1.5 tablets by mouth twi* CLONIDINE HCL 0.2 MG TABLET Take 1 tablet by mouth twice * GABAPENTIN 100 MG CAPSULE Take 2 capsules by mouth trevin* PRAVASTATIN 80 MG TABLET Take 1 tablet by mouth once d* DICLOFENAC 1 % TOPICAL GEL Apply 2 g to affected area fo* TIMOLOL MALEATE 0.5 % EYE PA* Use 1 Drop in both eyes twice * LATANOPROST 0.005 % EYE DROPS Use 1 Drop in both eyes daily* PEN NEEDLE, DIABETIC 31 GAUGE* Use as directed 4 times a day * LOSARTAN 100 MG TABLET TAKE 1 TABLET EVERY DAY BY MO* CHOLECALCIFEROL (VITAMIN D3) * Take 1 tablet by mouth once d * BD ULTRA-FINE SHORT PEN NEEDL* 1 Applicator as directed. CYANOCOBALAMIN (VIT B-12) 1,0* Take 1 tablet by mouth once d * LINAGLIPTIN 5 MG TABLET Take 5 mg by mouth once daily. ECOTRIN LOW STRENGTH 81 MG TA* Take one(1) tablet daily. Problem List As Of Date 01/30/2020 Noted Resolved Asthma [J45.909] 07/07/2015 Anemia in stage 3 chronic kidney disease (HCC) * Hypertension goal BP (blood pressure) < 140/90 * Hyperlipidemia [E78.5] Polyneuropathy in diabetes (HCC) [E11.42] 07/27/2005 DIABETES MELLITUS TYPE II UNCONTR UNCOMPL [IMO0*07/27/2005 0 08/09/2008 More... Erectile dysfunction associated with type 2 diaz*07/09/2008 Overweight [E66.3] 07/09/2008 Other specified gastritis without mention of he*09/18/2008 0 07/07/2015 BPH w/o urinary obs/LUTS [N40.0] 09/18/2008 09/08/2011 Background diabetic retinopathy(362.01) (HCC) [*09/18/2008 0 06/30/2015 Shoulder pain [M25.519] 09/25/2008 03/09/2011 More... 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 Follow-up and Disposition History Recorded Encounter Status:Closed by JESSE GLOVER MD on 01/30/20 coding summary on Coding Summary CODING DATE: 01/25/2020 FINAL Gin arash 01-25-2020 [facility] (0 0000) DSCH STATUS: Home PAYOR: Medicare APC DESCRIPTION 5022 Level 2 Type A ED Visits ADMIT DX: REASON FOR VISIT DX: S81.812A Laceration without foreign body, left lower leg, initial encounter FINAL DX: PRINCIPAL: S81.812A Laceration without foreign body, left lower leg, initial encounter SECONDARY: E11.9 Type 2 diabetes mellitus without complications Z79.4 manager long term care (current) use of insulin PYMT PROC APC STAT DESCRIPTION DOCTOR NAME DATE NOTE: The code number assigned matches the documented diagno sis and / or procedure in the patient's chart. However, the narrati ve phrase printed from the coding software may appear abbreviated, or result in s lightly different terminology. Coded By: Breanna Sarkar Date Saved: 01/25/2020 03:23 pm Coding Summary CODING DATE: 01/25/2020 FINAL Gin l 01-25-2020 [facility] (0 0000) DSC STATUS: Home PAYOR: Medicare ADMIT DX: REASON FOR VISIT DX: S81.812A Laceration without foreign body, left lower leg, initial encounter FINAL DX: PRINCIPAL: S81.812A Laceration without foreign body, left lower leg, initial encounter SECONDARY: E11.9 Type 2 diabetes mellitus without complications Z79.4 manager long term care (current) use of insulin PYMT PROC APC STAT DESCRIPTION DOCTOR NAME DATE NOTE: The code number assigned matches the documented diagno sis and / or procedure in the patient's chart. However, the narrati ve phrase printed from the coding software may appear abbreviated, or result in s lightly different terminology. Coded By: Breanna Sarkar Date Saved: 01/25/2020 03:23 pm ed patient summary on 2020-01-20 ED Patient [facility] - Emergency Department Normal 01-20-2020 [facility] Summary [address] [place] [address] ([id number]) PATIENT DISCHARGE INSTRUCTIONS Patient Information Name: SHIRIN WEST Sr Age: 74 Years Date of : 1945 Reason For Visit: Wound repair; LOWER L LEG WOUND CHECK Arrival Time: 01/20/2020 08:07:00 Primary Care Physician: Provider, None Attending Physician: Brenton Echevarria MD Comment: Visit Diagnosis: Diagnoses This Visit Noninfected skin tear of left leg (S81.812A) Wound repair ([id number]) Prescription Information: If you have been given a prescription for narcotics, seek immediate medical attention if you have any difficulty breathing or any sudden status changes such as confusion and sleepiness. If you or anyone you know is experiencing suicidal thoughts, mental health, alcohol and/or drug addiction problems; contact the [facility] 17/01 Crisis Hotline -Text 4HBDG to 740731. If you received any narcotic s, sedation, or any other medication that causes drowsiness for the next 24 hours, unless otherwise directed: ? Do not drive a car. ? Do not operate machinery s uch as power tools, lawn mowers, drills, sewing machines, or stoves ? Avoid alcoholic beverages and drugs for allergies, nerves, or sleep ? Do not make important pers onal or business decisions or sign any legal documents With: Address: When: Follow up with primary care provider Within 10 to 12 days, o nly if needed Comments: Wash the skin area of the wo und and around the wound once a day with soap and water. Avoid using any chemicals nguyễn ch as hydroperoxide iodine or Betadine that might irritate the wound. After washing your wound, pat it dry. Apply bacitracin antibiotic ointment to the wound 2 times a day. Apply a clean dressing to th e area 2 or 3 times a day or as often to keep it clean and dry. Followup with your doctor or PCP for follow-up within the recommended time for a wound reevaluation. Return to ER if there is any worse problems such as increased swelling, redness, significant pain or purulent drainage from the wound. Medication Information: The exam and treatment you r eceived today in the [facility] Emergency Department were for an urgent problem and are not intended as complete care. It is important for you to follow up with a doctor, nurse practitioner, or physician? s librarian assistant for ongoing care. If your symptoms become worse or you do not improve as expected and you are unable to reach your usual health care provider, you should return t o the Emergency Department, we are available 24 hours a day. For those patients who have received Radiology results, the interpretation of your X-ray as given to you by our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 However, the narrati ve phrase printed from the coding software may appear abbreviated, or result in s lightly different terminology. Coded By: Дмитрий Sarkar' Date Saved: 01/05/2020 04:27 pm Coding Summary CODING DATE: 01/05/2020 FINAL Gin antoine 01-05-2020 [facility] (0 0000) [facility] STATUS: Home PAYOR: Medicare ADMIT DX: REASON FOR VISIT DX: M25.422 Effusion, left elbow FINAL DX: PRINCIPAL: M70.22 Olecranon bursitis, left elbow SECONDARY: E11.9 Type 2 diabetes mellitus without complications PYMT PROC APC STAT DESCRIPTION DOCTOR NAME DATE NOTE: The code number assigned matches the documented diagno sis and / or procedure in the patient's chart. However, the narrati ve phrase printed from the coding software may appear abbreviated, or result in s lightly different terminology. Coded By: Дмитрий Sarkar' Date Saved: 01/05/2020 04:27 pm ed patient summary on 2019-12-28 ED Patient [facility] - Emergency Department Normal 12-28-2019 [facility] Summary [address] [place] [address] ([id number]) PATIENT DISCHARGE INSTRUCTIONS Patient Information Name: SHIRIN WEST Sr Age: 74 Years Date of : 1945 Reason For Visit: Elbow pain-swelling; LUMP ON ELBOW Arrival Time: 12/28/2019 13:32:51 Primary Care Physician: Provider, None Attending Physician: Brenton Echevarria MD Comment: Visit Diagnosis: Diagnoses This Visit Elbow pain-swelling ([id number]) Olecranon bursitis, left elbow (M70.22) Prescription Information: If you have been given a prescription for narcotics, seek immediate medical attention if you have any difficulty breathing or any sudden status changes such as confusion and sleepiness. If you or anyone you know is experiencing suicidal thoughts, mental health, alcohol and/or drug addiction problems; contact the [facility] 17/01 Crisis Hotline -Text 4HOPE bh 232226. If you received any narcotic s, sedation, or any other medication that causes drowsiness for the next 24 hours, unless otherwise directed: ? Do not drive a car. ? Do not operate machinery s uch as power tools, lawn mowers, drills, sewing machines, or stoves ? Avoid alcoholic beverages and drugs for allergies, nerves, or sleep ? Do not make important pers onal or business decisions or sign any legal documents With: Address: When: Juan Aguilera [address] [facility], [address] [place], [place] Business (2) Within 3 to 5 days Comments: Diagnosis is left elbow righ t olecranon bursitis. From history, you have some swelling in the area the elbow, and is discussed the bursa itself is inflamed. This can come from trauma, or hitting it, elisabeth etimes it happens spontaneou sly. There is no sign of obvious infection, there is no area of redness in the forearm, or the olecranon process/elbow area. It is not painful. You can follow-up with your ow n primary care provider, or you may follow-up with the orthopedic surgeon promotion writer, Dr. Aguilera In the next 3 to 5 days. Return to the emergency department for worsening symptoms or concerns, area the elbow turns red, redness go ing up or down the arm, fevers, pain out of proportion, inability to flex elbow, any questions. With: Address: When: None Provider Within 3 to 5 days Medication Information: The exam and treatment you r eceived today in the [facility] Emergency Department were for an urgent problem and are not intended as complete care. It is important for you to follow up with a doctor, nurse practitioner, or physician? s librarian assistant for ongoing care. If your symptoms become worse or you do not improve as expected and you are unable to reach your usual health care provider, you should return t o the Emergency Department, we are available 24 hours a day. For those patients who have received Radiology results, the interpretation of your X-ray as given to you by our Emergency Department physician is only a preliminary report. The Radiologist will review y our films and if there is a change in the diagnosis you will be notified by phone. Please make sure you have provided a working phone number so we can reach you if necessary. In the event that you had a lab culture while you were a patient in the Emergency Department, you will be notified by phone if there is a need to change your antibiotic. Please make sure you have provid ed a working phone number so we can reach you if necessary. [facility] Emergency Department has provided you with a complete list of medications post discharge. Please inform your sizer hand/provider of your visit and for further instruction on these medications. Any specific q uestions regarding your chronic medications and dosages should be discussed with your primary care physician(s) and/or pharmacist. Visit Information Allergies: Substance Reaction Symptoms Type Comments cortisone Drug Vital Signs: Vitals and Measurements this Visit (last charted value for your 12/28/2019 visit) Vital Signs This Visit Temperature Oral: 36.8 DegC Peripheral Pulse Rate: 69 bpm Respiratory Rate: 17 br/min Systolic Blood Pressure: 174 mmHg Diastolic Blood Pressure: 74 mmHg SpO2: 95 % Oxygen Therapy: Room air Measurements This Visit Height/Length Dosin.340 cm Height/Length Estimated: 180.340 cm Weight Dosin.900 kg Weight Estimated: 88.900 kg Problems List: Problem Onset Comments No Problems found Patient Education Elbow Bursitis Bursitis is swelling and veronika n at the tip of the elbow. This happens when fluid builds up in a sac under the skin (bursa). This may also be called olecranon bursitis. What are the causes? Elbow bursitis may be caused by: ? Elbow injury, such as falling onto the elbow. ? Leaning on hard surfaces for long periods of time. ? Infection from an injury that breaks the skin near the elb ow. ? A bone growth (spur) that forms at the tip of the elbow. ? A medical condition that c auses inflammation, such as gout or rheumatoid arthritis. Sometimes the cause is not known. What are the signs or symptoms? The first sign of elbow burs itis is usually swelling at the tip of the elbow. This can grow to be about the size of a golf ball. Swelling may start suddenly or develop gradually. Other symptoms may include: ? Pain when bending or leaning on the elbow. ? Not being able to move the elbow normally. If bursitis is caused by an infection, you may have: ? Redness, warmth, and tenderness of the elbow. ? Drainage of pus from the s wollen area over the elbow, if the skin breaks open. How is this diagnosed? This condition may be diagnosed based on: ? Your symptoms and medical history. ? Any recent injuries you have had. ? A physical exam. ? X-rays to check for a bone spur or fracture. ? Draining fluid from the bursa to test it for infection. ? Blood tests to rule out gout or rheumatoid arthritis. How is this treated? Treatment for elbow bursitis depends on the cause. Treatment may include: ? Medicines. These may include: ? Yipr-dyh-cqeyizk medicines to relieve pain and inflammatio n. ? Antibiotic medicines. ? Injections of anti-inflammatory medicines (steroids). ? Draining fluid from the bursa. ? Wrapping your elbow with a bandage. ? Wearing elbow pads. If these treatments do not help, you may need surgery to rem ove the bursa. Follow these instructions at home: Medicines ? Take jfgv-sxj-hinqins and prescription medicines only as told by your health care provider. ? If you were prescribed an antibiotic medicine, take it as told by your health care provider. Do not stop taking the antibiotic even if you start to feel better. Managing pain, stiffness, and swelling ? If directed, put ice on your elbow: ? Put ice in a plastic bag. ? Place a towel between your skin and the bag. ? Leave the ice on for 20 minutes, 2?3 times a day. ? If your bursitis is caused by an injury, rest your elbow and wear your bandage as told by your health care provider. ? Use elbow pads or elbow wraps to cushion your elbow as nee ded. General instructions ? Avoid any activities that cause elbow pain. Ask your health care provider what activities are safe for you. ? Keep all follow-up visits as told by your health care provider. This is important. Contact a health care provider if you have: ? A fever. ? Symptoms that do not get better with treatment. ? Pain or swelling that: ? Gets worse. ? Goes away and then comes back. ? Pus draining from your elbow. Get help right away if you have: ? Trouble moving your arm, hand, or fingers. Summary ? Elbow bursitis is inflamma tion of the fluid-filled sac (bursa) between the tip of your elbow bone (olecranon) and your skin. ? Treatment for elbow bursit is depends on the cause. It may include medicines to relieve pain and inflammation, antibiotic medicines, and draining fluid from your elbow. ? Contact a health care prov ider if your symptoms do not get better with treatment, or if your symptoms go away and then come back. This information is not inte nded to replace advice given to you by your health care provider. Make sure you discuss any questions you have with your health care provider. Document Released: 8 Document Revised: 05/23/2018 Document Reviewed: 05/23/2018 [email or web address] Interactive Patient Education ? 2019 [email or web address] Viruses or Bacteria What?s got you sick? Antibiotics only treat bacte rial infections. Viral illnesses cannot be treated with antibiotics. When an antibiotic is not prescribed, ask your healthcare professional for tips on how to relieve symptoms and feel better. Usual Cause Illness Viruses Bacteria Antibiotic Needed Cold/Runny Nose NO Bronchitis/Chest Cold (in otherwise healthy children and lisa lts) NO Whooping Cough Yes Flu NO Strep Throat Yes Sore Throat (except strep) NO Fluid in the middle ear (otitis media with effusion) NO Urinary Tract Infection Yes Antibiotics Aren?t Always the Answer www.cdc.gov/getsmart GET SMART Know When Antibiotics Work U.S. Department of Health and Human Services Centers for Disease Control and Prevention February 2014 ed patient education note on 2019-12-28 ED Patient Education Materials Normal 0 [facility] Education Note Orthopedics (00 000) Elbow Bursitis Bursitis is swelling and veronika n at the tip of the elbow. This happens when fluid builds up in a sac under the skin (bursa). This may also be called olecranon bursitis. What are the causes? Elbow bursitis may be caused by: ? Elbow injury, such as falling onto the elbow. ? Leaning on hard surfaces for long periods of time. ? Infection from an injury that breaks the skin near the elb ow. ? A bone growth (spur) that forms at the tip of the elbow. ? A medical condition that c auses inflammation, such as gout or rheumatoid arthritis. Sometimes the cause is not known. What are the signs or symptoms? The first sign of elbow burs itis is usually swelling at the tip of the elbow. This can grow to be about the size of a golf ball. Swelling may start suddenly or develop gradually. Other symptoms may include: ? Pain when bending or leaning on the elbow. ? Not being able to move the elbow normally. If bursitis is caused by an infection, you may have: ? Redness, warmth, and tenderness of the elbow. ? Drainage of pus from the s wollen area over the elbow, if the skin breaks open. How is this diagnosed? This condition may be diagnosed based on: ? Your symptoms and medical history. ? Any recent injuries you have had. ? A physical exam. ? X-rays to check for a bone spur or fracture. ? Draining fluid from the bursa to test it for infection. ? Blood tests to rule out gout or rheumatoid arthritis. How is this treated? Treatment for elbow bursitis depends on the cause. Treatment may include: ? Medicines. These may include: ? Utvc-jnu-zjutbau medicines to relieve pain and inflammatio n. ? Antibiotic medicines. ? Injections of anti-inflammatory medicines (steroids). ? Draining fluid from the bursa. ? Wrapping your elbow with a bandage. ? Wearing elbow pads. If these treatments do not help, you may need surgery to rem ove the bursa. Follow these instructions at home: Medicines ? Take eztp-bqn-gwjfcek and prescription medicines only as told by your health care provider. ? If you were prescribed an antibiotic medicine, take it as told by your health care provider. Do not stop taking the antibiotic even if you start to feel better. Managing pain, stiffness, and swelling ? If directed, put ice on your elbow: ? Put ice in a plastic bag. ? Place a towel between your skin and the bag. ? Leave the ice on for 20 minutes, 2?3 times a day. ? If your bursitis is caused by an injury, rest your elbow and wear your bandage as told by your health care provider. ? Use elbow pads or elbow wraps to cushion your elbow as nee ded. General instructions ? Avoid any activities that cause elbow pain. Ask your health care provider what activities are safe for you. ? Keep all follow-up visits as told by your health care provider. This is important. Contact a health care provider if you have: ? A fever. ? Symptoms that do not get better with treatment. ? Pain or swelling that: ? Gets worse. ? Goes away and then comes back. ? Pus draining from your elbow. Get help right away if you have: ? Trouble moving your arm, hand, or fingers. Summary ? Elbow bursitis is inflamma tion of the fluid-filled sac (bursa) between the tip of your elbow bone (olecranon) and your skin. ? Treatment for elbow bursit is depends on the cause. It may include medicines to relieve pain and inflammation, antibiotic medicines, and draining fluid from your elbow. ? Contact a health care prov ider if your symptoms do not get better with treatment, or if your symptoms go away and then come back. This information is not inte nded to replace advice given to you by your health care provider. Make sure you discuss any questions you have with your health care provider. Document Released: 8 Document Revised: 05/23/2018 Document Reviewed: 05/23/2018 [email or web address] Interactive Patient Education ? 2019 [employer]. ed note-nursing on 2019-12-28 ED Note-Nursing Pt arrives to ED with Normal [facility] left elbow swelling. Pt ([id number]) states there is a bump on his left elbow and he is unsure what it is. Pt is able to move arm full ROM. Pt denies pain at this time ed note - physician on 2019-12-28 ED Note - Patient: BRETT CARPIO Normal 12-28-2019 [facility] Physician Age: 74 years Sex: MALE : 1945 Hospital Associated Diagnoses: Olecranon bursitis, left elbow ([id number]) Author: Marilee THOMPSON, Anuj Douglas Basic Information Time seen: Date & time 12/28/2019 13:38:00. History source: Patient. Arrival mode: Private vehicle. History limitation: None. History of Present Illness Patient is a 74-year-old rig ht-handed -[place] diabetic male who presents to the emergency department for evaluation of swelling of the left elbow without history of trauma, patient seen in room 8. Patient states that he n oticed the left elbow was started to get swollen, over the last couple of days. He is not sure if he hit it, as he does not really remember, but his noticed that is a li ttle bit bigger than the rig ht side. He got a mosquito bite on the left forearm, and just was concerned that these are related, and to make sure he does not have an infection. It does not hurt, he can m ove his arm through normal r june of motion, and he denies any fevers or chills. Patient denies any trauma, any redness in the forearm, shortness of breath, chest pain, abdominal pain, nausea or vomiting.. Review of Systems Constitutional symptoms: No fever, no chills. Skin symptoms: No rash, no abrasions. Eye symptoms: No discharge, no diplopia, no blurred vision. ENMT symptoms: Negative except as documented in HPI. Respiratory symptoms: No shortness of breath, Cardiovascular symptoms: No chest pain, Gastrointestinal symptoms: No abdominal pain, no nausea, no vomiting. Genitourinary symptoms: Negative except as documented in HPI . Musculoskeletal symptoms: Negative except as documented in H PI. Neurologic symptoms: Negative except as documented in HPI. Health Status Allergies: No allergies have been recorded.. Past Medical/ Family/ Social History Medical history: No active or resolved past m edical history items have been selected or recorded.. Surgical history: No active procedure history items have been selected or minoo rded.. Family history: No family history items have been selected or recorded.. Social history: Social & Psychosocial Habits No Data Available . Problem list: No qualifying data available . Physical Examination General: Alert, no acute distress. Vital Signs Skin: Warm, dry. Head: Normocephalic, atraumatic. Neck: Supple, trachea midline. Eye: Extraocular movements are intact, normal conjunctiva. Cardiovascular: +S1, S2 Regular. Respiratory: Lungs are clear to auscultation, respirations are non-labored, breath sounds are equal. Musculoskeletal: Patient's l eft elbow is examined, and the area of the left round process, the bursa itself is mildly swollen, there is no redness in any aspect of the left upper extremity, there is no pain with palpation of the b ursa itself, it is very supple. He can move his arm through range of motion without any inhibition. On the forearm, there is an area which could be an insect bite, it is like about 1 mm in diameter, the re is no redness associated with it, no excoriation, no signs of cellulitis.. Neurological: Alert and orie nted to person, place, time, and situation, No focal neurological deficit observed. Psychiatric: Cooperative. Medical Decision Making Differential Diagnosis: Insect bite, olecranon bursitis,. Reexamination/ Reevaluation Patient is a 74-year-old mal e who presents to the emergency department for evaluation of left elbow swelling consistent with olecranon bursitis. From history, patient denies any history of trauma or fal l, redness or swelling, or f derian. He reports he got bit by a mosquito he thinks are some insect on the forearm, couple days ago, but it can barely be seen, there is no redness associated with the insec t bite, there is no sign of infection. The area of the olecranon process has some slight swelling of the bursa, but is not appear septic, there is no pain with palpation. I do not feel x-ray would be be neficial at this time. We wi ll give him information to follow-up with orthopedic surgeon locally, he does live out of town but does come in on the weekends, he can follow-up at home with his primary car e provider when he returns. We discussed about reasons return he indicated verbal understanding agreement. Impression and Plan Diagnosis Olecranon bursitis, left elbow ([id number] M70.22, Discharge, Medical) Plan Condition: Improved, Stable. Disposition: Discharged: Time 12/28/2019 14:13:00, to home. Patient was given the follow ing educational materials: Elbow Bursitis, Elbow Bursitis. Follow up with: None Darline estrada Within 3 to 5 days; Juan Aguilera Within 3 to 5 days Diagnosis is left elbow right olecranon bursitis. From history, you have some swelling in the area the elbow, and is discussed the bursa itself is inflamed. This can come from trauma, or hitting it, sometimes it happens spontaneously. There is no sign of obvious infection, there is no area of redness in the forearm, or the olecranon process/elb ow area. It is not painful. You can follow-up with your own primary care provider, or you may follow-up with the orthopedic surgeon promotion writer, Dr. Aguilera In the next 3 to 5 days. Return to the emergen cy department for worsening symptoms or concerns, area the elbow turns red, redness going up or down the arm, fevers, pain out of proportion, inability to flex elbow, any questions.. Counseled: Patient, Family, Regarding diagnosis, Regarding diagnostic results, Regarding treatment plan, Regarding prescription, Patient indicated understanding of instructions. [Electronically Signed on: 12/28/2019 14:44 EDT] Anuj Evans [Verified on: 12/28/2019 14:44 EDT] Anuj Evans ed clinical summary on 2019-12-28 ED Clinical [facility] - Emergency Department Normal 12-28-2019 [facility] Summary [address] [place] [address] ([phone]) ED Clinical Summary PERSON INFORMATION Name: SHIRIN WEST Sr Age: 74 Years Sex: MALE : 1945 MRN: Acct#: Visit Reason: Elbow pain-swe lling; LUMP ON ELBOW Arrival: 12/28/2019 13:32:51 Discharge: 12/28/2019 14:20:00 LOS: 000 00:48 Check In: 12/28/2019 13:32:51 Checkout:12/28/2019 14:20:00 Address: [address] [place] [id number] PCP: Provider, None PROVIDER INFORMATION Provider Role Assigned Unassigned Anuj Evans ED PA 12/28/2019 13:35:44 Maritza RN, Kristina ED Nurse 12/28/2019 13:38:18 VITALS INFORMATION Vital Sign Triage Latest Temperature Tympanic Temperature Temporal Artery Pulse Rate 69 bpm 69 bpm O2 Sat 95 % 95 % Respiratory Rate 17 br/min 17 br/min Blood Pressure /74 mmHg /74 mmHg MEDICAL INFORMATION Medications Given: Allergy Information: cortisone PHYSICIAN DOCUMENTATION DISCHARGE INFORMATION: Discharge Disposition: Home Discharge Location: Home PATIENT EDUCATION INFORMATION Instructions: Elbow Bursitis Follow-Up: With: Address: When: Juan Aguilera [address] [place] [address], Suite [place], [place] Business (2) Within 3 to 5 days Comments: Diagnosis is left elbow righ t olecranon bursitis. From history, you have some swelling in the area the elbow, and is discussed the bursa itself is inflamed. This can come from trauma, or hitting it, elisabeth etimes it happens spontaneou sly. There is no sign of obvious infection, there is no area of redness in the forearm, or the olecranon process/elbow area. It is not painful. You can follow-up with your ow n primary care provider, or you may follow-up with the orthopedic surgeon promotion writer, Dr. Aguilera In the next 3 to 5 days. Return to the emergency department for worsening symptoms or concerns, area the elbow turns red, redness go ing up or down the arm, fevers, pain out of proportion, inability to flex elbow, any questions. With: Address: When: None Provider Within 3 to 5 days DIAGNOSIS: Olecranon bursitis, left elbow Patient Understands: Yes - P atient/family/caregiver verbalizes understanding of instructions given Comment: obsolete on 2019-12 OBSOLETE Refill (INTMWS) Normal 12-27-2019 Sb burroughs [facility] SHIRIN WEST SR. ([id number]) 1945 [facility] Date Time Provider Department ([id number]) 12/27/19 JESSE GLOVER INTMasterWS During your visit today, we recorded the following informati on about you: Angelica Lizeth [facility] 12/27/2019 12:15 PM Signed Patient has been identified by name and date of : Yes Last office visit in this department: 07/17/2019 RX INSTRUCTIONS: Patient aware RX will be sent to pharmacy. No need to notify patient. Patient phones requesting refills as follows: Pending Prescriptions Disp Refills FUROSEMIDE 40 MG TABLET Sig: Take 1 tablet by mouth once daily. CLARKE: No Please review and advise. Angelica Stanley [facility] Roma Hawkins LPN 12/27/2019 2:59 PM Signed Patient has been identified by name and date of : Yes Patient phones for refill(s): Pending Prescriptions Disp Refills FUROSEMIDE 40 MG TABLET Sig: Take 1 tablet by mouth once daily. CLARKE: No Date of last office visit in primary care: 10/04/2019 4 month follow-up: 02/08/2020 Last 2 Encounter Wt Readings: Date: Wt: 08/22/2019 88 kg (194 lb) 07/17/2019 89.8 kg (198 lb) Previous labs/tests for medication: Blood Pressure: BUN (mg/dL) Date Value 12/19/2019 23 Sodium (mmol/L) Date Value 12/19/2019 139 Last 1 Encounter BP Readings: Date: BP: 12/20/2019 130/62 Please advise. Thank you. Roma Hawkins LPN Allergies As of Date: 12/27/2019 Noted Allergy Reaction CORTISONE 05/09/2009 14 - Other: See Comments Comments: [place] real hot, as if someone threw boiling water o n him ZESTRIL (LISINOPRIL) 01/29/2009 5 - Intolerance Comments: ARF, hypokalemia Date Reviewed: 12/20/2019 Reviewed by: Madiha ByrneLaw[facility] HospitalShun Hamm - Fully Assessed Reason for Visit: Refill Request [94] Order(s):furosemide (LASIX) 40 mg tabletTake 1 tablet by laura once daily.Disp: 90 tabletRfl: 3 Prescriptions as of 12/27/2019 Sig: FUROSEMIDE 40 MG TABLET Take 1 tablet by mouth once d* BLOOD-GLUCOSE METER KIT Glucose Meter of Choice - Kit* BLOOD GLUCOSE TEST STRIPS Test blood sugar(s) 4 times d* LANCETS Test blood sugar(s) 4 times d* HUMALOG MIX 75-25 KWIKPEN U-1* Inject 20 units breakfast and * METFORMIN ER 500 MG TABLET,EX* Take 1 tablet by mouth daily * NIFEDIPINE ER 90 MG TABLET,EX* Take 1 tablet by mouth once d * CHLORTHALIDONE 25 MG TABLET Take 1 tablet by mouth once d* CARVEDILOL 25 MG TABLET Take 1.5 tablets by mouth twi* CLONIDINE HCL 0.2 MG TABLET Take 1 tablet by mouth twice * GABAPENTIN 100 MG CAPSULE Take 2 capsules by mouth trevin* PRAVASTATIN 80 MG TABLET Take 1 tablet by mouth once d* DICLOFENAC 1 % TOPICAL GEL Apply 2 g to affected area fo* TIMOLOL MALEATE 0.5 % EYE PA* Use 1 Drop in both eyes twice * LATANOPROST 0.005 % EYE DROPS Use 1 Drop in both eyes daily* PEN NEEDLE, DIABETIC 31 GAUGE* Use as directed 4 times a day * LOSARTAN 100 MG TABLET TAKE 1 TABLET EVERY DAY BY MO* CHOLECALCIFEROL (VITAMIN D3) * Take 1 tablet by mouth once d * BD ULTRA-FINE SHORT PEN NEEDL* 1 Applicator as directed. CYANOCOBALAMIN (VIT B-12) 1,0* Take 1 tablet by mouth once d * LINAGLIPTIN 5 MG TABLET Take 5 mg by mouth once daily. ECOTRIN LOW STRENGTH 81 MG TA* Take one(1) tablet daily. Problem List As Of Date 12/27/2019 Noted Resolved Asthma [J45.909] 07/07/2015 Anemia in stage 3 chronic kidney disease (HCC) * Hypertension goal BP (blood pressure) < 140/90 * Hyperlipidemia [E78.5] Polyneuropathy in diabetes ([facility]) [E11.42] 07/27/2005 DIABETES MELLITUS TYPE II UNCONTR UNCOMPL [IMO0*07/27/2005 0 08/09/2008 More... Erectile dysfunction associated with type 2 diaz*07/09/2008 Overweight [E66.3] 07/09/2008 Other specified gastritis without mention of he*09/18/2008 0 07/07/2015 BPH w/o urinary obs/LUTS [N40.0] 09/18/2008 09/08/2011 Background diabetic retinopathy(362.01) ([facility]) [*09/18/2008 0 06/30/2015 Shoulder pain [M25.519] 09/25/2008 03/09/2011 More... 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 Medications Discontinued During This Encounter furosemide (LASIX) 40 mg tablet 06/04/2019 12/27/2019 Class: Med Update Route: ORAL Sig: Take 1 tablet by mouth once daily. Disc: Reason for discontinue is not on file. Encounter Status:Closed by AMERICA MCGINNIS CNP on 12/27/19 cnpn on 2019-12-24 CNPN Telephone (FAMPWS) Normal 12-24-2019 [place] SHIRIN Whipple SRJi ([id number]) 1945 [facility] Date Time Provider Department ([id number]) 12/24/19 [facility] During your visit today, we recorded the following informati on about you: Neyda Bo FERNANDO 12/24/2019 9:05 AM Signed Pt calls to report he has swelling in both ankles. Pt report s swelling has been in the last week and is intermittent. Pt reports swel ling will go down some but then swell back up. Pt reports he saw the nephrolog ist in [place] 12/[address] Campbell the foot dr today. Dr. Kam hairston advised the pt that he may need water pill changed or increased. Pt is aski ng provider to review. Neyda Hongfellow FUEL QUALITY TECH Jesse Glover MD 12/24/2019 1:12 PM Signed I recommend he use compression stockings. He has hypertens ion that requires multiple medications that can cause swelling, and chronic ki dney disease. Changing medications can be risky. I do not recommend incr easing water pill due to CKD. I can send a prescription for compression stockings if nika ed. Rehana Crain LPN, FUEL QUALITY TECH 12/24/2019 1:20 PM Signed Left message to return call. Natalya Moulton, RN, RN 12/24/2019 4:30 PM Signed Pt returns call, message below given with suzan castro Pt asking for rx to go to [facility]. Pt also asking for rx for new glucose meter to [facility] as well. Order pended. Jesse Glover MD 12/25/2019 1:19 PM Signed Order printed. Roma Hawkins LPN 12/26/2019 8:20 AM Signed Order faxed to [facility]. Roma Hawkins LPN Allergies As of Date: 12/24/2019 Noted Allergy Reaction CORTISONE 05/09/2009 14 - Other: See Comments Comments: [place] real hot, as if someone threw boiling water o n him ZESTRIL (LISINOPRIL) 01/29/2009 5 - Intolerance Comments: ARF, hypokalemia Date Reviewed: 12/20/2019 Reviewed by: Madiha ByrnePhonograph MechanicShun Hamm - Fully Assessed Reason for Visit: Edema [39] Primary Visit Diagnosis:Edema of both legs [R60.0] Other Visit Diagnosis:Type 2 DM with CKD stage 3 and hyperte nsion (HCC) [E11.22, I12.9, N18.3] Order(s):Blood-Glucose Meter monitoring kitGlucose Meter of Choice - Kit - Dx: Type 2 DM - Uncontrolled E11.65Disp: 1 EachRfl: 0 blood sugar diagnostic (BLOOD GLUCOSE TEST) test stripTest b lood sugar(s) 4 times daily. Dx: Type 2 DM - Uncontrolled Insulin: YesDisp: 200 StripRfl: 11 Lancets lancetsTest blood sugar(s) 4 times daily. Dx: Type 2 DM - Uncontrolled . Insulin: YesDisp: 400 EachRfl: 11 COMPRESSION STOCKINGS [[id number]] Order #: [id number] Prescriptions as of 12/24/2019 Sig: BLOOD-GLUCOSE METER KIT Glucose Meter of Choice - Kit* BLOOD GLUCOSE TEST STRIPS Test blood sugar(s) 4 times d* LANCETS Test blood sugar(s) 4 times d* HUMALOG MIX 75-25 KWIKPEN U-1* Inject 20 units breakfast and * METFORMIN ER 500 MG TABLET,EX* Take 1 tablet by mouth daily * NIFEDIPINE ER 90 MG TABLET,EX* Take 1 tablet by mouth once d * CHLORTHALIDONE 25 MG TABLET Take 1 tablet by mouth once d* CARVEDILOL 25 MG TABLET Take 1.5 tablets by mouth twi* CLONIDINE HCL 0.2 MG TABLET Take 1 tablet by mouth twice * GABAPENTIN 100 MG CAPSULE Take 2 capsules by mouth trevin* PRAVASTATIN 80 MG TABLET Take 1 tablet by mouth once d* DICLOFENAC 1 % TOPICAL GEL Apply 2 g to affected area fo* FUROSEMIDE 40 MG TABLET Take 1 tablet by mouth once d* TIMOLOL MALEATE 0.5 % EYE PA* Use 1 Drop in both eyes twice * LATANOPROST 0.005 % EYE DROPS Use 1 Drop in both eyes daily* PEN NEEDLE, DIABETIC 31 GAUGE* Use as directed 4 times a day * LOSARTAN 100 MG TABLET TAKE 1 TABLET EVERY DAY BY MO* CHOLECALCIFEROL (VITAMIN D3) * Take 1 tablet by mouth once d * BD ULTRA-FINE SHORT PEN NEEDL* 1 Applicator as directed. CYANOCOBALAMIN (VIT B-12) 1,0* Take 1 tablet by mouth once d * LINAGLIPTIN 5 MG TABLET Take 5 mg by mouth once daily. ECOTRIN LOW STRENGTH 81 MG TA* Take one(1) tablet daily. Problem List As Of Date 12/24/2019 Noted Resolved Asthma [J45.909] 07/07/2015 Anemia in stage 3 chronic kidney disease (HCC) * Hypertension goal BP (blood pressure) < 140/90 * Hyperlipidemia [E78.5] Polyneuropathy in diabetes (HCC) [E11.42] 07/27/2005 DIABETES MELLITUS TYPE II UNCONTR UNCOMPL [IMO0*07/27/2005 0 08/09/2008 More... Erectile dysfunction associated with type 2 diaz*07/09/2008 Overweight [E66.3] 07/09/2008 Other specified gastritis without mention of he*09/18/2008 0 07/07/2015 BPH w/o urinary obs/LUTS [N40.0] 09/18/2008 09/08/2011 Background diabetic retinopathy(362.01) (HCC) [*09/18/2008 0 06/30/2015 Shoulder pain [M25.519] 09/25/2008 03/09/2011 More... 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] 06/22/2019 Pseudophakia of both eyes [Z96.1] 06/22/2019 Type 2 diabetes mellitus with diabetic polyneur*10/11/2019 Type 2 diabetes mellitus with stage 3 chronic k*10/11/2019 Prescriptions ordered this encounter Disp Refills Start End BLOOD-GLUCOSE METER KIT 1 Ea* 0 12/25/2019 12/25/2019 Sig: Glucose Meter of Choice - Kit - Dx: Type 2 DM - Uncontr olled E11.65 BLOOD GLUCOSE TEST STRIPS 200 * 11 12/25/2019 Sig: Test blood sugar(s) 4 times daily. Dx: Type 2 DM - Un controlled E11.65 Insulin: Yes LANCETS 400 * 11 12/25/2019 Sig: Test blood sugar(s) 4 times daily. Dx: Type 2 DM - Un controlled E11.65 Insulin: Yes Medications Discontinued During This Encounter blood sugar diagnostic (FREESTYLE LI* 100 * 2 04/18/201711/27 Sig: Use as instructed tests 3 times a day. Dx: DMII Disc: Duplicate Entry lancets(FREESTYLE LANCETS) 200 3 09/11/2007 12/25/2019 Class: Print RX Route: Miscell. (Med.Supl.;Non-Drugs) Sig: Test 2 times daily, 250.02, non insulin Disc: Duplicate Entry Encounter Status:Closed by ROMA HAWKINS LPN on 12/26/19 progress on 2019-11 PROGRESS HNO ID: [id number] Normal 12-20-2019 [facility] Author: Madiha (Phonograph Mechanic) Noris Vincent ([id number]) Service: ? Author Type: Nurse Practitioner Type: Progress Notes Filed: 12/20/2019 10:53 AM Note Text: [facility] NEPHROLOGY [facility] HYPERTENSION [facility] CHIEF COMPLAINT: Follow up for CKD. HPI: History copied from Dr. Marrero's previous note dated 07/29 12/14. My changes are made below. Shirin West Sr. is a 74 year old male with moderate CKD in the setting of type II DM and HTN -Cr has been abnormal since 2014. Other m edical problems include hyperlipidemia, BPH, erectile dysfunction, DJD, diabetic retinopathy and neuropathy. Baseline serum cr ranges from 1.7-1.9 mg/dl. He has nonnephrotic range proteinuria-on losartan Last seen Dr. Marrero on 08/22/19 Since last visit, pt feels pretty good. Had some recent adju stments with insulin. Home BPs Range 120-130s/60-70s with isolated 140-150. He was shocked at today's readings but took his BP meds prio r to his appt. Reports eating more salt then usual lately. Avoids NSAIDS PAST MEDICAL HISTORY Diagnosis Date - Anemia in stage 3 chronic kidney disease (HCC) - Background diabetic retinopathy(362.01) 09/18/2008 [facility] eye. - Cataract of left eye - Chronic kidney disease, unspecified - CKD (chronic kidney disease) stage 3, GFR 30-59 ml/min (HC C) 05/26/2017 - Coloboma of iris OD - Depressive disorder, not elsewhere classified - Erectile dysfunction associated with type 2 diabetes isai delatorrewilfred ([facility]) 07/09/2008 - Esophageal reflux - Essential hypertension, benign - Hyperplasia of prostate - Macular edema dme od - Other and unspecified hyperlipidemia - Other specified anemias - Other specified gastritis without mention of hemorrhage - Personal history of colonic polyps 08/04/2016 - Primary open angle glaucoma OU - Proliferative diabetic retinopathy(362.02) - Pseudophakia of right eye - Shoulder pain 09/25/2008 Right. - Tubular adenoma of colon 08/10/2016 - Type II or unspecified type diabetes mellitus with ophthal bj manifestations, uncontrolled(250.52) 09/18/2008 iddm - Unspecified asthma(493.90) - Vitreous hemorrhage of left eye ([facility]) Social History Tobacco Use - Smoking status: Former Smoker Types: Cigars - Smokeless tobacco: Never Used - Tobacco comment: quit 40 + years ago Substance Use Topics - Alcohol use: Yes Comment: rarely, 2-3 glasses red wine per month - Drug use: No Current Outpatient Medications on File Prior to Visit Medication Sig - insulin 75/25 lispro protamine/lispro units/mL (HUMALOG GA X 75-25 KWIKPEN) 100 unit/mL (75-25) inpn Inject 20 units breakfast and 20 units dinner - metFORMIN ER (GLUCOPHAGE XR) 500 mg 24 hr tablet Take 1 ta blet by mouth daily with breakfast. - NIFEdipine ER (PROCARDIA XL) 90 mg 24 hr tablet Take 1 tab let by mouth once daily. - chlorthalidone (HYGROTON) 25 mg tablet Take 1 tablet by mo uth once daily. - carvedilol (COREG) 25 mg tablet Take 1.5 tablets by mouth twice daily with meals. - cloNIDine HCl (CATAPRES) 0.2 mg tablet Take 1 tablet by mo uth twice daily. - gabapentin (NEURONTIN) 100 mg capsule Take 2 capsules by m outh daily at bedtime. From podiatry (Dr. Cordon) - pravastatin (PRAVACHOL) 80 mg tablet Take 1 tablet by mout h once daily. For cholesterol. - diclofenac sodium (VOLTAREN) 1 % topical gel Apply 2 g to affected area four times daily. - furosemide (LASIX) 40 mg tablet Take 1 tablet by mouth onc e daily. - timolol maleate (TIMOPTIC) 0.5 % ophthalmic solution Use 1 Drop in both eyes twice daily. Use at 6 AM and 6 PM - latanoprost (XALATAN) 0.005 % ophthalmic solution Use 1 Dr op in both eyes daily at bedtime. - Insulin Broad Top, Disposable, (1ST TIER UNIFINE PENTIPS) 31 gauge x 3/16 ndle Use as directed 4 times a day. Dx: E11.65 - losartan (COZAAR) 100 mg tablet TAKE 1 TABLET EVERY DAY BY MOUTH - cholecalciferol (VITAMIN D) 1,000 unit tab tablet Take 1 t ablet by mouth once daily. - BD INSULIN PEN NEEDLE UF 31 gauge x 5/16 ndle 1 Applicato r as directed. - cyanocobalamin (VITAMIN B-12) 1,000 mcg tab Take 1 tablet by mouth once daily. - blood sugar diagnostic (FREESTYLE LITE STRIPS) test strip Use as instructed tests 3 times a day. Dx: DMII - linagliptin 5 mg tab Take 5 mg by mouth once daily. - aspirin(ECOTRIN LOW STRENGTH 81 MG TAB) Take one(1) tablet daily. - lancets(FREESTYLE LANCETS) Test 2 times daily, 250.02, non insulin No current facility-administered medications on file prior t o visit. Current Medications Reviewed Problem List Reviewed REVIEW OF SYSTEMS: GENERAL: No weight loss, malaise or fevers RESPIRATORY: Denies SOB, cough CARDIOVASCULAR: Denies CP, palpitations, dizziness, (+)BLE s welling. GI: No nausea, vomiting, or diarrhea, denies constipation or melena : No history of dysuria, frequency or incontinence, denies hematuria or foamy urine. SKIN: Negative for lesions, rash, and itching PHYSICAL EXAM: Average BP (BpTru): 158/73 BpTRU BP #2 (BpTru): 168/73 Pulse #2 (BpTru): 65 beats/min BP #3 (BpTru): 162/78 Pulse #3 (BpTru): 64 beats/min BP #4 (BpTru): 157/72 Pulse #4 (BpTru): 64 beats/min BP #5 (BpTru): 150/73 Pulse #5 (BpTru): 64 beats/min BP #6 (BpTru): 153/71 Pulse #6 (BpTru): 66 beats/min Average BP (BpTru): 158/73 Average Pulse (BpTru): 65 beats/min BP manual 130/62 at end of visit General appearance: Well appearing, alert, in no acute distr ess, well-hydrated, well nourished. Skin: Skin color, texture, turgor normal, no suspicious rash es or lesions Neck: Supple; normal size, Lungs: Lungs clear to auscultation. No wheezing, rhonchi, ra les Heart: RRR without murmur, gallop, or rubs. Abdomen: Normal abdominal exam, Abdomen soft, non-tender. Haroldo wel sounds normal. No bruits. No masses, organomegaly Extremities: No deformities, (+) BL anklee ila. Good capill sheryl refill. LABS: Creatinine Date Value Ref Range Status 12/19/2019 1.47 (H) 0.73 - 1.22 mg/dL Final 10/09/2019 1.87 (H) 0.73 - 1.22 mg/dL Final 09/14/2019 1.97 (H) 0.73 - 1.22 mg/dL Final 06/01/2019 1.89 (H) 0.73 - 1.22 mg/dL Final ASSESSMENT CKD Stage 3 - In setting of DM/HTN -Creatinine improved -Proteinuria: mild and intermittent on ARB -Discussed need for good diabetes, blood pressure and choles terol control -Recommend HgbA1c of 7 or less as CKD goal. -Discussed importance of avoiding nephrotoxins such as NSAID s and IV iodinated contrast dye. BP/Volume: - Controlled manual BP on current regimen. -Volume: mild bilateral ankle edema- controlled -Recommend BP goal of 130/80 or less. -Low sodium diet discussed. -Increase activity as tolerated. Heme: -Hgb at CKD goal; mild anemia -continue to monitor along with iron stores to assess for ne ed of ANALISA. Secondary Hyperparathyroidism: -Phos and Ca+: at goal -Vitamin D: at goal- needs updated -PTH: mildly elevated- monitor for now Hyperlipidemia: -Recommend LDL goal of <100 -Currently on statin Proteinuria: -mild and intermittent- in setting of long-standing DM. -most likely has underlying diabetic nephropathy -negative paraproteinemia and collagen vascular disease work up -on losartan -Discussed role of strict BP control and low-protein diet in preventing progression. Hyperkalemia: -resolved DM: -controlled -goal hgba1c 7 or less- most recent 7.0 PLAN No changes FU in [address] Marrero. Sooner if needed. Madiha Hamm APRN. CNP cnov on 2019-12-20 CNOV Office Visit (NEPHST) Normal 12-20-19 [place] SHIRIN Whipple SRJi ([id number]) 1945 M [place] Date Time Provider Department ([id number]) 12/20/19 10:15 AM MADIHA HAMM (CLINICAL NURSE MANAGER) NEPHST During your visit today, we recorded the following informati on about you: Blood pressure 130/62 Madiha Hamm APRN.CLINICAL NURSE MANAGER 12/20/2019 10:53 AM Signed [facility] NEPHROLOGY [facility]ION [facility] CHIEF COMPLAINT: Follow up for CKD. HPI: History copied from Dr. Marrero's previous note verónica ed 08/22/19. My changes are made below. Shirin West Sr. is a 74 yea r old male with moderate CKD in the setting of type II DM and HTN -Cr has been abnormal [facility] e 2014. Other medical problems include hyperlipidemia, BPH, erectile dysfunction, DJD, diabetic ret inopathy and neuropathy. Baseline serum cr ranges from 1.7-1.9 mg/dl. He has nonnephrotic range proteinuria-on losartan Last seen Dr. Marrero on 08/22/19 Since last visit, pt feels pretty good. Had some recent adju stments with insulin. Home BPs Range 120-130s/60-70s with isolated 140-150. He was shocked at today's readings but took his BP meds prio r to his appt. Reports eating more salt then usual lately. Avoids NSAIDS PAST MEDICAL HISTORY Diagnosis Date - Anemia in stage 3 chronic kidney disease (HCC) - Background diabetic retinopathy(362.01) 09/18/2008 [facility] eye. - Cataract of left eye - Chronic kidney disease, unspecified - CKD (chronic kidney disease) stage 3, GFR 30-59 ml/min (HC C) 05/26/2017 - Coloboma of iris OD - Depressive disorder, not elsewhere classified - Erectile dysfunction assoc iated with type 2 diabetes mellitus (HCC) 07/09/2008 - Esophageal reflux - Essential hypertension, benign - Hyperplasia of prostate - Macular edema dme od - Other and unspecified hyperlipidemia - Other specified anemias - Other specified gastritis without mention of hemorrhage - Personal history of colonic polyps 08/04/2016 - Primary open angle glaucoma OU - Proliferative diabetic retinopathy(362.02) - Pseudophakia of right eye - Shoulder pain 09/25/2008 Right. - Tubular adenoma of colon 08/10/2016 - Type II or unspecified typ e diabetes mellitus with ophthalmic manifestations, uncontrolled(250.52) 09/18/2008 iddm - Unspecified asthma(493.90) - Vitreous hemorrhage of left eye ([facility]) Social History Tobacco Use - Smoking status: Former Smoker Types: Cigars - Smokeless tobacco: Never Used - Tobacco comment: quit 40 + years ago Substance Use Topics - Alcohol use: Yes Comment: rarely, 2-3 glasses red wine per month - Drug use: No Current Outpatient Medications on File Prior to Visit Medication Sig - insulin 75/25 lispro protamine/lispro units/mL (CRISTINA LOG MIX 75-25 KWIKPEN) 100 unit/mL (75-25) inpn Inject 20 units breakfast and 20 un its dinner - metFORMIN ER (GLUCOPHAGE X R) 500 mg 24 hr tablet Take 1 tablet by mouth daily with breakfast. - NIFEdipine ER (PROCARDIA XL) 90 mg 24 hr table t Take 1 tablet by mouth once daily. - chlorthalidone (HYGROTON) 25 mg tablet Take 1 tablet by mouth once daily. - carvedilol (COREG) 25 mg tablet Take 1.5 tablets by mouth twice daily with meals. - cloNIDine HCl (CATAPRES) 0.2 mg tablet Take 1 tablet by mouth twice daily. - gabapentin (NEURONTIN) 100 mg capsule Take 2 capsules by m outh daily at bedtime. From podiatry (Dr. Cordon) - pravastatin (PRAVACHOL) 80 mg tablet Take 1 ta blet by mouth once daily. For cholesterol. - diclofenac sodium (VOLTAREN) 1 % topic al gel Apply 2 g to affected area four times daily. - furosemide (LASIX) 40 mg tablet Take 1 tablet by mouth onc e daily. - timolol maleate (TIMOPTIC) 0.5 % ophth almic solution Use 1 Drop in both eyes twice daily. Use at 6 AM and 6 PM - latanoprost (XALATAN) 0.005 % ophthalmic solution Use 1 Drop in both eyes daily at bedtime. - Insulin Broad Top, Disposabl e, (1ST TIER UNIFINE PENTIPS) 31 gauge x 3/16 ndle Use as directed 4 times a day. Dx: E11.65 - losartan (COZAAR) 100 mg tablet TAKE 1 TABLET EVERY DAY BY MOUTH - cholecalciferol (VITAMIN D ) 1,000 unit tab tablet Take 1 tablet by mouth once daily. - BD INSULIN PEN NEEDLE UF 31 gauge x 5/16 ndle 1 Applicato r as directed. - cyanocobalamin (VITAMIN B-12) 1,000 mcg tab Take 1 tablet by mouth once daily. - blood sugar diagnostic (FREESTYLE LITE STRIPS) test strip Use as instructed tests 3 times a day. Dx: DMII - linagliptin 5 mg tab Take 5 mg by mouth once daily. - aspirin(ECOTRIN LOW STRENGTH 81 MG TAB) Take one(1) tablet daily. - lancets(FREESTYLE LANCETS) Test 2 times daily, 250.02, non insulin No current facility-administered medications on file prior t o visit. Current Medications Reviewed Problem List Reviewed REVIEW OF SYSTEMS: GENERAL: No weight loss, malaise or fevers RESPIRATORY: Denies SOB, cough CARDIOVASCULAR: Denies CP, palpitations, dizziness, (+)BLE s welling. GI: No nausea, vomiting, or diarrhea, denies constipation or melena : No history of dysuria, f requency or incontinence, denies hematuria or foamy urine. SKIN: Negative for lesions, rash, and itching PHYSICAL EXAM: Average BP (BpTru): 158/73 BpTRU BP #2 (BpTru): 168/73 Pulse #2 (BpTru): 65 beats/min BP #3 (BpTru): 162/78 Pulse #3 (BpTru): 64 beats/min BP #4 (BpTru): 157/72 Pulse #4 (BpTru): 64 beats/min BP #5 (BpTru): 150/73 Pulse #5 (BpTru): 64 beats/min BP #6 (BpTru): 153/71 Pulse #6 (BpTru): 66 beats/min Average BP (BpTru): 158/73 Average Pulse (BpTru): 65 beats/min BP manual 130/62 at end of visit General appearance: Well berto earing, alert, in no acute distress, well-hydrated, well nourished. Skin: Skin color, texture, turgor normal, no suspicious rash es or lesions Neck: Supple; normal size, Lungs: Lungs clear to auscultation. No wheezing, rhonchi, ra les Heart: RRR without murmur, gallop, or rubs. Abdomen: Normal abdominal exam, Abdomen soft, non-tender. Bowel sounds normal. No bruits. No masses, organomegaly Extremities: No deformities, (+) BL anklee ila. Good capill sheryl refill. LABS: Creatinine Date Value Ref Range Status 12/19/2019 1.47 (H) 0.73 - 1.22 mg/dL Final 10/09/2019 1.87 (H) 0.73 - 1.22 mg/dL Final 09/14/2019 1.97 (H) 0.73 - 1.22 mg/dL Final 06/01/2019 1.89 (H) 0.73 - 1.22 mg/dL Final ASSESSMENT CKD Stage 3 - In setting of DM/HTN -Creatinine improved -Proteinuria: mild and intermittent on ARB -Discussed need for good diabetes, blood pressure and choles terol control -Recommend HgbA1c of 7 or less as CKD goal. -Discussed importance of avoiding nephro toxins such as NSAIDs and IV iodinated contrast dye. BP/Volume: - Controlled manual BP on current regimen. -Volume: mild bilateral ankle edema- controlled -Recommend BP goal of 130/80 or less. -Low sodium diet discussed. -Increase activity as tolerated. Heme: -Hgb at CKD goal; mild anemia -continue to monitor along with iron stores to assess for ne ed of ANALISA. Secondary Hyperparathyroidism: -Phos and Ca+: at goal -Vitamin D: at goal- needs updated -PTH: mildly elevated- monitor for now Hyperlipidemia: -Recommend LDL goal of <100 -Currently on statin Proteinuria: -mild and intermittent- in setting of long-standing DM. -most likely has underlying diabetic nephropathy -negative paraproteinemia and collagen vascular disease work up -on losartan -Discussed role of strict BP control and low-protein diet in preventing progression. Hyperkalemia: -resolved DM: -controlled -goal hgba1c 7 or less- most recent 7.0 PLAN No changes FU in [address] Marrero. Sooner if needed. Madiha Hamm APRN. TRANG Hamm APRN.TRANG 12/20/2019 10:44 AM Addendum Avoid Advil ,Ibuprofen(Motrin),Aleve(Naproxen),Meloxicam and other pain/arthritis medications called NSAIDS. You can take Tylenol if necessary. Avoid intravenous contrast Follow up [address] Marrero. Non f asting labs prior to visit. Be sure to drink fluids prior to blood draw. 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) [E11.22, I12.9, N18.3] Other Visit Diagnoses:Other proteinuria [R80.8] Hyperkalemia [E87.5] Anemia in stage 3 chronic kidney disease (HCC) [N18.3, D63.1] Secondary renal hyperparathyroidism (HCC) [N25.81] Hyperlipidemia, unspecified hyperlipidemia type [E78.5] Order(s):CBC + DIFF [SQCBCDIF] Order #: [id number] FUTURE RENAL FUNCTION PANEL [SQRFP] Order #: [id number] FUTURE PTH INTACT BLD [SQPTHI] Order #: [id number] FUTURE VITAMIN D 25 HYDROXY [SQVITD] Order #: [id number] FUTURE URINALYSIS, WITH MICROSCOPIC [SQUAWMIC] Order #: [id number] FUTURE PROTEIN CREATININE RATIO [SQPRATIO] Order #: [id number] FUTU RE Prescriptions as of 12/20/2019 Sig: HUMALOG MIX 75-25 KWIKPEN U-1* Inject 20 units breakfast and * METFORMIN ER 500 MG TABLET,EX* Take 1 tablet by mouth daily * NIFEDIPINE ER 90 MG TABLET,EX* Take 1 tablet by mouth once d * CHLORTHALIDONE 25 MG TABLET Take 1 tablet by mouth once d* CARVEDILOL 25 MG TABLET Take 1.5 tablets by mouth twi* CLONIDINE HCL 0.2 MG TABLET Take 1 tablet by mouth twice * GABAPENTIN 100 MG CAPSULE Take 2 capsules by mouth trevin* PRAVASTATIN 80 MG TABLET Take 1 tablet by mouth once d* DICLOFENAC 1 % TOPICAL GEL Apply 2 g to affected area fo* FUROSEMIDE 40 MG TABLET Take 1 tablet by mouth once d* TIMOLOL MALEATE 0.5 % EYE PA* Use 1 Drop in both eyes twice * LATANOPROST 0.005 % EYE DROPS Use 1 Drop in both eyes daily* PEN NEEDLE, DIABETIC 31 GAUGE* Use as directed 4 times a day * LOSARTAN 100 MG TABLET TAKE 1 TABLET EVERY DAY BY MO* CHOLECALCIFEROL (VITAMIN D3) * Take 1 tablet by mouth once d * BD ULTRA-FINE SHORT PEN NEEDL* 1 Applicator as directed. CYANOCOBALAMIN (VIT B-12) 1,0* Take 1 tablet by mouth once d * BLOOD SUGAR DIAGNOSTIC STRIPS Use as instructed tests 3 myles* LINAGLIPTIN 5 MG TABLET Take 5 mg by mouth once daily. ECOTRIN LOW STRENGTH 81 MG TA* Take one(1) tablet daily. FREESTYLE LANCETS 28 GAUGE Test 2 times daily, 250.02, n* Problem List As Of Date 12/20/2019 Noted Resolved Asthma [J45.909] 07/07/2015 Anemia in stage 3 chronic kidney disease (HCC) * Hypertension goal BP (blood pressure) < 140/90 * Hyperlipidemia [E78.5] Polyneuropathy in diabetes (HCC) [E11.42] 07/27/2005 DIABETES MELLITUS TYPE II UNCONTR UNCOMPL [IMO0*07/27/2005 0 08/09/2008 More... Erectile dysfunction associated with type 2 diaz*07/09/2008 Overweight [E66.3] 07/09/2008 Other specified gastritis without mention of he*09/18/2008 0 07/07/2015 BPH w/o urinary obs/LUTS [N40.0] 09/18/2008 09/08/2011 Background diabetic retinopathy(362.01) (HCC) [*09/18/2008 0 06/30/2015 Shoulder pain [M25.519] 09/25/2008 03/09/2011 More... 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 You can take Tylen ol if necessary. Avoid intravenous contrast Follow up [address] Marrero. Non fasting labs prior to visit. Be sure to drink fluids prior to blood draw. Disposition: Return in about 6 months (around 06/20/2020) erika CORBIN with Dr. Marrero. Follow-up and Disposition History Recorded Encounter Status:Closed by MADIHA HAMM on 12/20/19 tsh on 2019-12-19 TSH Qn 2.540 0.270-4.200 uU/mL Normal 12-19-2019 [facility] ([id number]) Comment: Performed By: #### HBA1C, TS H, LIPB ####[place] [address] [phone] lipid panel, basic on 2019-12-19 Cholesterol [Mass/Vol] 162 <200 mg/dL Normal 020 [facility] ([address]) Comment: Result Comment: <200 mg/dL, Desirable 200-239 mg/dL, Borderline hi gh >239 mg/dL, High Performed By: #### HBA1C, TS H, LIPB ####[place] [id number] [place] [address] [phone] Cholesterol in HDL 49 >39 mg/dL Normal 12-19-2019 [facility] [Mass/Vol] (88390) Comment: Result Comment: 40-59 mg/dL, Acceptable >59 mg/dL, High: Negative ri sk factor for coronary heart disease <40 mg/dL, Low: Positive ris k factor for coronary heart disease Performed By: #### HBA1C, TS H, LIPB ####[place] [address] [phone] Cholesterol in LDL 94 <100 mg/dL Normal 12-19-2019 [facility] [Mass/Vol] [place] ([address]) Comment: Result Comment: <100 mg/dL, Optimal 100-129 mg/dL, Near optimal/ above optimal 130-159 mg/dL, Borderline hi gh 160-189 mg/dL, High >189 mg/dL, Very high Secondary prevention optimal LDL Cholesterol levels are recommended to be < 70 mg/dL Performed By: #### HBA1C, TS H, LIPB ####[facility] [place] [place] [address] [phone] Fasting Time 12 hrs Normal 12-19-2019 [facility] ([address]777) Comment: Performed By: #### HBA1C, TS H, LIPB ####[place] [id number] [place] [address] [phone] LDL:HDL Ratio 1.92 <2.54 Normal 12-19-2019 [facility] (94504) Comment: Result Comment: Reference: 1. National Cholesterol Educ ation Program ATP III Guideline At-A-Glance Quick Desk Reference: National Heart, Lung, and Blood [place]. National Institutes of Health. 2001: NIH Publication No. 01-3305. 2. An International Atherosc lerosis Society position paper: global recommendations for the management of dyslipidemia: executive summary, Atherosclerosis. 2014: 232(2):410-413. Performed By: #### HBA1C, TS H, LIPB ####[place] [id number] [place] [address] [phone] Non HDL Cholesterol 113 <130 mg/dL Normal 12-19-2019 [facility] (68[address]) Comment: Result Comment: <130 mg/dL, Optimal 130-159 mg/dL, Near optimal/ above optimal 160-189 mg/dL, Borderline hi gh 190-219 mg/dL, High >219 mg/dL, Very high Secondary prevention optimal non HDL Cholesterol levels are recommended to be < 100 mg/dL Performed By: #### HBA1C, TS H, LIPB ####[facility] [place] [address] [phone] TC:HDL Ratio 3.31 <5.10 Normal 12-19-2019 [facility] (20725) Comment: Performed By: #### HBA1C, TS H, LIPB ####[place] [id number] [place] [address] [phone] Triglyceride [Mass/Vol] 95 <150 mg/dL Normal 2019 [facility] ([address]) Comment: Result Comment: <150 mg/dL, Normal 150-199 mg/dL, Borderline hi gh 200-499 mg/dL, High >499 mg/dL, Very high Performed By: #### HBA1C, TS H, LIPB ####[facility] [place] [address] [phone] VLDL Cholesterol 19 <30 mg/dL Normal 12-19-2019 [facility] (39056) Comment: Performed By: #### HBA1C, TS H, LIPB ####[facility] [place] [address] [phone] hemoglobin a1c on 2 HbA1c (Bld) [Mass fraction] 154 mg/dL Normal [facility] (44382) Comment: Result Comment: eAG: (Estima violet average glucose) is a calculated value from HgbA1c and is product sales representative of the average blood glucose level in the last 2-3 month period. Performed By: #### HBA1C, TS H, LIPB ####[place] [id number] [place] [address] [phone] HbA1c (Bld) [Mass fraction] 7.0 4.3-5.6 % High [facility] (39[address]) Comment: Result Comment: [place] [employer] bet[employer] Association guidelines indicate that patients with HgbA1c in the range 5.7-6.4% are at increased risk for development of diabetes, and intervention by lifestyle modification may be beneficial. HgbA1c greater o r equal to 6.5% is considered diagnostic of diabetes. Performed By: #### HBA1C, TS H, LIPB ####[place] [address] [address] [place] [address] [phone] comp metabolic panel on 2019-12-19 Albumin [Mass/Vol] 3.8 3.9-4.9 g/dL Low 12-19-2019 [facility] ([id number]) ALP [Catalytic 47 38-113 U/L Normal 12-19-2019 [facility]Vol[facility]) ALT [Catalytic 8 10-54 U/L Low 12-19-2019 [facility] activity/Vol] [facility] and (19212) Anion gap [Moles/Vol] 8 9-18 mmol/L Low 12-19-19 20 [facility] (76141) AST [Catalytic 16 14-40 U/L Normal 12-19-2019 [facility] activity/Vol] [facility] and (75062) Bilirubin [Mass/Vol] 0.5 0.2-1.3 mg/dL Normal 0 [facility] (08080) Calcium [Mass/Vol] 9.0 8.5-10.2 mg/dL Normal 12-19-2019 [facility] (61839) Chloride [Moles/Vol] 107 97-105 mmol/L High 0 [facility] (84368) CO2 [Moles/Vol] 24 22-30 mmol/L Normal 12-19-2019 [facility] (99438) Creatinine [Mass/Vol] 1.47 0.73-1.22 mg/dL High 12-19-19 20 [facility] (66895) eGFR- Amer. 57 Normal 12-19-2019 [facility] (56405) GFR/1.73 sq M predicted 47 . Normal 2019 [facility] among non-blacks MDRD [place] (74106) (S/P/Bld) [Vol rate/Area] Comment: Result Comment: eGFR (Estima violet GFR) Units of measure: mL/min/1.73 meters squared eGFR is derived from the ree xpressed MDRD Study equation using the following parameters: serum creatinine, age, gender and race. The creatinine assay has been calibrated to be traceable to IDMS. An eGFR <60 mL/min/1.73m2 fo r >3 months is consistent with chronic kidney disease. Refer to KDOQI guidelines for clinical interpretation. In patients with unstable re nal function, e.g. those with acute kidney injury, the eGFR may not accurately reflect actual GFR. Glucose [Mass/Vol] 174 74-99 mg/dL High 12-19-2019 [facility] (72248) Comment: Result Comment: The [place] Diabetes Association (ADA) provides guidance for cutoff values for fasting glucose and random glucose. The ADA defines fasting as no caloric intake for at least 8 hours. Fas ting plasma glucose results between 100 to 125 mg/dL indicate increased risk for diabetes (prediabetes). Fasting plasma glucose resul ts greater than or equal to 126 mg/dL meet the criteria for diagnosis of diabetes. In the absence of unequivocal hyperglycemia, results should be confirmed by repeat testing. In a patient with classic s ymptoms of hyperglycemia or hyperglycemic crisis, random plasma glucose results greater than or equal to 200 mg/dL meet the criteria for diagnosis of diabetes. Reference: Standards of [facility] Care in Diabetes 2016, [place] Diabetes Association. Diabetes Care. 2016.39(Suppl 1). Potassium [Moles/Vol] 4.3 3.7-5.1 mmol/L Normal 12-18- 20 [facility] (46026) Protein [Mass/Vol] 6.7 6.3-8.0 g/dL Normal 12-19-2019 [facility] (81676) Sodium [Moles/Vol] 139 136-144 mmol/L Normal 12-19-2019 [facility] (27710) Urea nitrogen [Mass/Vol] 23 9-24 mg/dL Normal 12-18 [facility] (82362) albumin/creat ratio on 2019-12-19 Albumin Urine Random 146.7 mg/L Normal 0 [facility] (13934) Comment: Performed By: #### UACR #### [facility] [id number] [place], [place] [phone] Albumin/Creat Ratio 195 <30 mg/g High 12-19-2019 [facility] (58464) Comment: Result Comment: Adult Male a nd Female Nephrotic Criteria: <30 mg/g is considered gin l to mildly increased 30-300 mg/g is considered mo derately increased >300 mg/g is considered ryan rely increased KDIGO. (2013). KDIGO 2012 Cl inical Practice Guideline for the Evaluation and Management of Chronic Kidney Disease. Official Journal of the International Society of Nephrology, 3(1), 1-150. Performed By: #### UACR #### [facility] [id number] [place], [place] [phone] Creatinine,Urine,Ran 75.4 20-300 mg/dL Normal 0 [facility] (91570) Comment: Performed By: #### UACR #### [facility] [id number] [place], [place] [phone] progress on 2019-10 PROGRESS HNO ID: [id number] Normal 11-22-2019 [facility] Author: Pamela Guzman ([id number]) Service: ? Author Type: Registered Nurse Type: Progress Notes Filed: 11/22/2019 7:00 PM Note Text: HIGH RISK CHRONIC DISEASE MONITORING Provider Action/FYI: No answer x 3- call in 6 mo Contact made with patient: No - Unable to leave message - en tered next patient outreach date for the following week on the same in Track Pt. Outreach - End Outreach Outreach ended cnptoutreach on CNPTOUTREACH Patient Outreach (INTMWS) Normal 0 11-22-2019 [place] SHIRIN Whipple SR. ([id number]) 1945 [facility] Date Time Provider Department () 11/22/19 PAMELA MONACO During your visit today, we recorded the following informati on about you: Pamela Scherer RN 11/22/2019 7:00 PM Signed HIGH RISK CHRONIC DISEASE MONITORING Provider Action/FYI: No answer x 3- call in 6 mo Contact made with patient: No - Unable to leave message - en tered next patient outreach date for the following week on the same day in Track Pt. Outreach - End Outreach Outreach ended Allergies As of Date: 11/22/2019 Noted Allergy Reaction CORTISONE 05/09/2009 14 - Other: See Comments Comments: [place] real hot, as if someone threw boiling water o n him ZESTRIL (LISINOPRIL) 01/29/2009 5 - Intolerance Comments: ARF, hypokalemia Date Reviewed: 10/12/2019 Reviewed by: Chanda Phillips - Fully Assessed Reason for Visit: Community Monitoring Outreach [Other] Prescriptions as of 11/22/2019 Sig: HUMALOG MIX 75-25 KWIKPEN U-1* Inject 20 units breakfast and * METFORMIN ER 500 MG TABLET,EX* Take 1 tablet by mouth daily * NIFEDIPINE ER 90 MG TABLET,EX* Take 1 tablet by mouth once d * CHLORTHALIDONE 25 MG TABLET Take 1 tablet by mouth once d* CARVEDILOL 25 MG TABLET Take 1.5 tablets by mouth twi* CLONIDINE HCL 0.2 MG TABLET Take 1 tablet by mouth twice * GABAPENTIN 100 MG CAPSULE Take 2 capsules by mouth trevin* PRAVASTATIN 80 MG TABLET Take 1 tablet by mouth once d* DICLOFENAC 1 % TOPICAL GEL Apply 2 g to affected area fo* FUROSEMIDE 40 MG TABLET Take 1 tablet by mouth once d* TIMOLOL MALEATE 0.5 % EYE PA* Use 1 Drop in both eyes twice * LATANOPROST 0.005 % EYE DROPS Use 1 Drop in both eyes daily* PEN NEEDLE, DIABETIC 31 GAUGE* Use as directed 4 times a day * LOSARTAN 100 MG TABLET TAKE 1 TABLET EVERY DAY BY MO* CHOLECALCIFEROL (VITAMIN D3) * Take 1 tablet by mouth once d * BD ULTRA-FINE SHORT PEN NEEDL* 1 Applicator as directed. CYANOCOBALAMIN (VIT B-12) 1,0* Take 1 tablet by mouth once d * BLOOD SUGAR DIAGNOSTIC STRIPS Use as instructed tests 3 myles* LINAGLIPTIN 5 MG TABLET Take 5 mg by mouth once daily. ECOTRIN LOW STRENGTH 81 MG TA* Take one(1) tablet daily. FREESTYLE LANCETS 28 GAUGE Test 2 times daily, 250.02, n* Problem List As Of Date 11/22/2019 Noted Resolved Asthma [J45.909] 07/07/2015 Anemia in stage 3 chronic kidney disease (HCC) * Hypertension goal BP (blood pressure) < 140/90 * Hyperlipidemia [E78.5] Polyneuropathy in diabetes (HCC) [E11.42] 07/27/2005 DIABETES MELLITUS TYPE II UNCONTR UNCOMPL [IMO0*07/27/2005 0 08/09/2008 More... Erectile dysfunction associated with type 2 diaz*07/09/2008 Overweight [E66.3] 07/09/2008 Other specified gastritis without mention of he*09/18/2008 0 07/07/2015 BPH w/o urinary obs/LUTS [N40.0] 09/18/2008 09/08/2011 Background diabetic retinopathy(362.01) (HCC) [*09/18/2008 0 06/30/2015 Shoulder pain [M25.519] 09/25/2008 03/09/2011 More... 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 ([id number]) 1945 [facility] Date Time Provider Department ([id number]) 11/20/19 JESSE GLOVER INTMasterWS During your visit today, we recorded the following informati on about you: Penny Scott LPN 11/20/2019 11:50 AM Signed Patient calling for a letter to excuse him from jury duty du e to the medications he takes. Penny Scott LPN 11/20/2019 11:51 AM Signed He would like to pick it up. Please call [phone]. Penny Glover MD 11/21/2019 8:42 AM Signed Letter printed. Roma Hawkins LPN 11/21/2019 9:40 AM Signed Patient notified letter will be ready for pickup in Medical Records after 10 AM today. Roma Hawkins LPN Allergies As of Date: 11/20/2019 Noted Allergy Reaction CORTISONE 05/09/2009 14 - Other: See Comments Comments: [place] real hot, as if someone threw boiling water o n him ZESTRIL (LISINOPRIL) 01/29/2009 5 - Intolerance Comments: ARF, hypokalemia Date Reviewed: 10/12/2019 Reviewed by: Chanda Lofton) Sonam - Fully Assessed Reason for Visit: Letter [264] Cmt: to excuse from Jury Duty Prescriptions as of 11/20/2019 Sig: HUMALOG MIX 75-25 KWIKPEN U-1* Inject 20 units breakfast and * METFORMIN ER 500 MG TABLET,EX* Take 1 tablet by mouth daily * NIFEDIPINE ER 90 MG TABLET,EX* Take 1 tablet by mouth once d * CHLORTHALIDONE 25 MG TABLET Take 1 tablet by mouth once d* CARVEDILOL 25 MG TABLET Take 1.5 tablets by mouth twi* CLONIDINE HCL 0.2 MG TABLET Take 1 tablet by mouth twice * GABAPENTIN 100 MG CAPSULE Take 2 capsules by mouth trevin* PRAVASTATIN 80 MG TABLET Take 1 tablet by mouth once d* DICLOFENAC 1 % TOPICAL GEL Apply 2 g to affected area fo* FUROSEMIDE 40 MG TABLET Take 1 tablet by mouth once d* TIMOLOL MALEATE 0.5 % EYE PA* Use 1 Drop in both eyes twice * LATANOPROST 0.005 % EYE DROPS Use 1 Drop in both eyes daily* PEN NEEDLE, DIABETIC 31 GAUGE* Use as directed 4 times a day * LOSARTAN 100 MG TABLET TAKE 1 TABLET EVERY DAY BY MO* CHOLECALCIFEROL (VITAMIN D3) * Take 1 tablet by mouth once d * BD ULTRA-FINE SHORT PEN NEEDL* 1 Applicator as directed. CYANOCOBALAMIN (VIT B-12) 1,0* Take 1 tablet by mouth once d * BLOOD SUGAR DIAGNOSTIC STRIPS Use as instructed tests 3 myles* LINAGLIPTIN 5 MG TABLET Take 5 mg by mouth once daily. ECOTRIN LOW STRENGTH 81 MG TA* Take one(1) tablet daily. FREESTYLE LANCETS 28 GAUGE Test 2 times daily, 250.02, n* Problem List As Of Date 11/20/2019 Noted Resolved Asthma [J45.909] 07/07/2015 Anemia in stage 3 chronic kidney disease ([facility]) * Hypertension goal BP (blood pressure) < 140/90 * Hyperlipidemia [E78.5] Polyneuropathy in diabetes ([facility]) [E11.42] 07/27/2005 DIABETES MELLITUS TYPE II UNCONTR UNCOMPL [IMO0*07/27/2005 0 08/09/2008 More... Erectile dysfunction associated with type 2 diaz*07/09/2008 Overweight [E66.3] 07/09/2008 Other specified gastritis without mention of he*09/18/2008 0 07/07/2015 BPH w/o urinary obs/LUTS [N40.0] 09/18/2008 09/08/2011 Background diabetic retinopathy(362.01) ([facility]) [*09/18/2008 0 06/30/2015 Shoulder pain [M25.519] 09/25/2008 03/09/2011 More... 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] 06/22/2019 Pseudophakia of both eyes [Z96.1] 06/22/2019 Type 2 diabetes mellitus with diabetic polyneur*10/11/2019 Type 2 diabetes mellitus with stage 3 chronic k*10/11/2019 Letter Text Encounter Status:Closed by ROMA HAWKINS LPN on 11/21/19 progress on 2019-10 PROGRESS HNO ID: [id number] Normal 11-08-2019 [facility] Author: Gissell Hewitt LPN [place] ([id number]) Service: ? Author Type: ? Type: Progress Notes Filed: 11/08/2019 9:28 AM Note Text: HIGH RISK CHRONIC DISEASE MONITORING Provider Action/FYI: Contact made with patient: No - Left message - Hi my name is Gissell Hewitt LPN and I am calling from the [facility] on beh sanna of your PCP, Jesse Glover MD Because of the COVID-19 outbreak , we were calling to help make sure you are feeling well and have what you need to manage your well-being. If you'd like to call us back to [facility] in, you can reach us at during business hours Tuesday- Tuesday 8:00AM-4:30PM. If not, we will call you next week. If you hand ve an urgent need, please contact your PCP's office. Thank you. Entered n ext patient outreach date for the following week on the same business da y of the week using Track Pt Outreach. End outreach. Outreach ended cnptoutreach on CNPTOUTREACH Patient Outreach ([facility]) Normal 0 11-08-2019 [place] SHIRIN Whipple SR. ([id number]) 1945 [facility] Time Provider Department ([id number]) 11/08/19 JESSE GLOVERAnibal During your visit today, we recorded the following informati on about you: Gissell Hewitt LPN 11/08/2019 9:28 AM Signed HIGH RISK CHRONIC DISEASE MONITORING Provider Action/FYI: Contact made with patient: No - Left message - Hi my n savita is Gissell Hewitt LPN and I am calling from the [facility] on behalf of your PCP, Jesse Glover MD Because of the COVID-19 outbreak, we wer e calling to help make sure you are feeling well and have what you need to manage your well-being. If you'd like to call us back to check in, you can reach us at during business hours Tuesday-Tuesday 8:00AM-4:30PM. If not, we will call you next week. If you have an urgent need, please contact your P CP's office. Thank you. Entered next patient outreach date for the on the same business day of the week using Track Pt Outreach. End o utreach. Outreach ended Allergies As of Date: 11/08/2019 Noted Allergy Reaction CORTISONE 05/09/2009 14 - Other: See Comments Comments: [place] real hot, as if someone threw boiling water o n him ZESTRIL (LISINOPRIL) 01/29/2009 5 - Intolerance Comments: ARF, hypokalemia Date Reviewed: 10/12/2019 Reviewed by: Chanda Phillips - Fully Assessed Reason for Visit: community management outreach [Other] Prescriptions as of 11/08/2019 Sig: HUMALOG MIX 75-25 KWIKPEN U-1* Inject 20 units breakfast and * METFORMIN ER 500 MG TABLET,EX* Take 1 tablet by mouth daily * NIFEDIPINE ER 90 MG TABLET,EX* Take 1 tablet by mouth once d * CHLORTHALIDONE 25 MG TABLET Take 1 tablet by mouth once d* CARVEDILOL 25 MG TABLET Take 1.5 tablets by mouth twi* CLONIDINE HCL 0.2 MG TABLET Take 1 tablet by mouth twice * GABAPENTIN 100 MG CAPSULE Take 2 capsules by mouth trevin* PRAVASTATIN 80 MG TABLET Take 1 tablet by mouth once d* DICLOFENAC 1 % TOPICAL GEL Apply 2 g to affected area fo* FUROSEMIDE 40 MG TABLET Take 1 tablet by mouth once d* TIMOLOL MALEATE 0.5 % EYE PA* Use 1 Drop in both eyes twice * LATANOPROST 0.005 % EYE DROPS Use 1 Drop in both eyes daily* PEN NEEDLE, DIABETIC 31 GAUGE* Use as directed 4 times a day * LOSARTAN 100 MG TABLET TAKE 1 TABLET EVERY DAY BY MO* CHOLECALCIFEROL (VITAMIN D3) * Take 1 tablet by mouth once d * BD ULTRA-FINE SHORT PEN NEEDL* 1 Applicator as directed. CYANOCOBALAMIN (VIT B-12) 1,0* Take 1 tablet by mouth once d * BLOOD SUGAR DIAGNOSTIC STRIPS Use as instructed tests 3 myles* LINAGLIPTIN 5 MG TABLET Take 5 mg by mouth once daily. ECOTRIN LOW STRENGTH 81 MG TA* Take one(1) tablet daily. FREESTYLE LANCETS 28 GAUGE Test 2 times daily, 250.02, n* Problem List As Of Date 11/08/2019 Noted Resolved Asthma [J45.909] 07/07/2015 Anemia in stage 3 chronic kidney disease (HCC) * Hypertension goal BP (blood pressure) < 140/90 * Hyperlipidemia [E78.5] Polyneuropathy in diabetes (HCC) [E11.42] 07/27/2005 DIABETES MELLITUS TYPE II UNCONTR UNCOMPL [IMO0*07/27/2005 0 08/09/2008 More... Erectile dysfunction associated with type 2 diaz*07/09/2008 Overweight [E66.3] 07/09/2008 Other specified gastritis without mention of he*09/18/2008 0 07/07/2015 BPH w/o urinary obs/LUTS [N40.0] 09/18/2008 09/08/2011 Background diabetic retinopathy(362.01) (HCC) [*09/18/2008 0 06/30/2015 Shoulder pain [M25.519] 09/25/2008 03/09/2011 More... 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] 06/22/2019 Pseudophakia of both eyes [Z96.1] 06/22/2019 Type 2 diabetes mellitus with diabetic polyneur*10/11/2019 Type 2 diabetes mellitus with stage 3 chronic k*10/11/2019 Encounter Status:Closed by GISSELL HEWITT LPN on 11/08/19 progress on 2019-10 PROGRESS HNO ID: [id number] Normal 11-01-2019 [facility] Author: Gissell Hewitt FERNANDO [place] ([id number]) Service: ? Author Type: ? Type: Progress Notes Filed: 11/01/2019 8:40 AM Note Text: HIGH RISK CHRONIC DISEASE MONITORING Provider Action/FYI: Contact made with patient: No - Left message - Hi my name is Gissell Hewitt FERNANDO and I am calling from the [facility] on beh [facility] of your PCP, Jesse Glover MD Because of the COVID-19 outbreak , we were calling to help make sure you are feeling well and have what you need to manage your well-being. If you'd like to call us back to [facility] [employer] in, you can reach us at during business hours Tuesday- Tuesday 8:00AM-4:30PM. If not, we will call you next week. If you hand ve an urgent need, please contact your PCP's office. Thank you. Entered n ext patient outreach date for the following week on the same business da y of the week using Track Pt Outreach. End outreach. Outreach ended cnptoutreach on CNPTOUTREACH Patient Outreach ([facility]) Normal 0 11-01-2019 [place] SHIRIN Whipple SR. ([id number]) 1945 [facility] Date Time Provider Department ([id number]) 11/01/19 JESSE GLOVER During your visit today, we recorded the following informati on about you: Gissell Hewitt FERNANDO 11/01/2019 8:40 AM Signed HIGH RISK CHRONIC DISEASE MONITORING Provider Action/FYI: Contact made with patient: No - Left message - Hi my n savita is Gissell Ernestina KING and I am calling from the [facility] on behalf of your PCP, Jesse Glover MD Because of the COVID-19 outbreak, we angelica e calling to help make sure you are feeling well and have what you need to manage your well-being. If you'd like to call us back to check in, you can reach us at during business hours Tuesday-Tuesday 8:00AM-4:30PM. If not, we will call you next week. If you have an urgent need, please contact your P CP's office. Thank you. Entered next patient outreach date for the foll owing week on the same business day of the week using Track Pt Outreach. End o [facility]. 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 [Other] Cmt: Week 2 Reason For Visit History Recorded Prescriptions as of 11/01/2019 Sig: HUMALOG MIX 75-25 KWIKPEN U-1* Inject 20 units breakfast and * METFORMIN ER 500 MG TABLET,EX* Take 1 tablet by mouth daily * NIFEDIPINE ER 90 MG TABLET,EX* Take 1 tablet by mouth once d * CHLORTHALIDONE 25 MG TABLET Take 1 tablet by mouth once d* CARVEDILOL 25 MG TABLET Take 1.5 tablets by mouth twi* CLONIDINE HCL 0.2 MG TABLET Take 1 tablet by mouth twice * GABAPENTIN 100 MG CAPSULE Take 2 capsules by mouth trevin* PRAVASTATIN 80 MG TABLET Take 1 tablet by mouth once d* DICLOFENAC 1 % TOPICAL GEL Apply 2 g to affected area fo* FUROSEMIDE 40 MG TABLET Take 1 tablet by mouth once d* TIMOLOL MALEATE 0.5 % EYE PA* Use 1 Drop in both eyes twice * LATANOPROST 0.005 % EYE DROPS Use 1 Drop in both eyes daily* PEN NEEDLE, DIABETIC 31 GAUGE* Use as directed 4 times a day * LOSARTAN 100 MG TABLET TAKE 1 TABLET EVERY DAY BY MO* CHOLECALCIFEROL (VITAMIN D3) * Take 1 tablet by mouth once d * BD ULTRA-FINE SHORT PEN NEEDL* 1 Applicator as directed. CYANOCOBALAMIN (VIT B-12) 1,0* Take 1 tablet by mouth once d * BLOOD SUGAR DIAGNOSTIC STRIPS Use as instructed tests 3 myles* LINAGLIPTIN 5 MG TABLET Take 5 mg by mouth once daily. ECOTRIN LOW STRENGTH 81 MG TA* Take one(1) tablet daily. FREESTYLE LANCETS 28 GAUGE Test 2 times daily, 250.02, n* Problem List As Of Date 11/01/2019 Noted Resolved Asthma [J45.909] 07/07/2015 Anemia in stage 3 chronic kidney disease (HCC) * Hypertension goal BP (blood pressure) < 140/90 * Hyperlipidemia [E78.5] Polyneuropathy in diabetes (HCC) [E11.42] 07/27/2005 DIABETES MELLITUS TYPE II UNCONTR UNCOMPL [IMO0*07/27/2005 0 08/09/2008 More... Erectile dysfunction associated with type 2 diaz*07/09/2008 Overweight [E66.3] 07/09/2008 Other specified gastritis without mention of he*09/18/2008 0 07/07/2015 BPH w/o urinary obs/LUTS [N40.0] 09/18/2008 09/08/2011 Background diabetic retinopathy(362.01) ([facility]) [*09/18/2008 0 06/30/2015 Shoulder pain [M25.519] 09/25/2008 03/09/2011 More... 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] 06/22/2019 Pseudophakia of both eyes [Z96.1] 06/22/2019 Type 2 diabetes mellitus with diabetic polyneur*10/11/2019 Type 2 diabetes mellitus with stage 3 chronic k*10/11/2019 Encounter Status:Closed by GISSELL HEWITT LPN on 11/01/19 progress on 2019-09 PROGRESS HNO ID: [id number] Normal 10-25-2019 [facility] Author: Juana ByrneNetwork Navigator) [place] ([id number]) Service: ? Author Type: Insole Lip Turner Type: Progress Notes Filed: 10/25/2019 1:16 PM Note Text: HIGH RISK CHRONIC DISEASE MONITORING Provider Action/FYI: . Call in 1 week Contact made with patient: No - Unable to leave message - en tered next patient outreach date for the following week on the same in Track Pt. Outreach - End Outreach Outreach ended cnptoutreach on CNPTOUTREACH Patient Outreach ([facility]) Normal 0 10-25-2019 [place] SHIRIN Whipple SR. ([id number]) 1945 [facility] Date Time Provider Department ([id number]) 10/25/19 JUANA CARDOZANETWORK NAVIGATOR)[facility] During your visit today, we recorded the following informati on about you: SIDNEY Fam 10/25/2019 1:16 PM Nicole hart HIGH RISK CHRONIC DISEASE MONITORING Provider Action/FYI: . Call in 1 week Contact made with patient: No - Unable to leave message - joanne sinclair next patient outreach date for the following week on the same business day in Track Pt. Outreach - End Outreach Outreach ended Allergies As of Date: 10/25/2019 Noted Allergy Reaction CORTISONE 05/09/2009 14 - Other: See Comments Comments: [place] real hot, as if someone threw boiling water o n him ZESTRIL (LISINOPRIL) 01/29/2009 5 - Intolerance Comments: ARF, hypokalemia Date Reviewed: 10/12/2019 Reviewed by: Chanda (Beckie) Sonam - Fully Assessed Reason for Visit: community monitoring outeach [Other] Cmt: week 1 Prescriptions as of 10/25/2019 Sig: HUMALOG MIX 75-25 KWIKPEN U-1* Inject 20 units breakfast and * METFORMIN ER 500 MG TABLET,EX* Take 1 tablet by mouth daily * NIFEDIPINE ER 90 MG TABLET,EX* Take 1 tablet by mouth once d * CHLORTHALIDONE 25 MG TABLET Take 1 tablet by mouth once d* CARVEDILOL 25 MG TABLET Take 1.5 tablets by mouth twi* CLONIDINE HCL 0.2 MG TABLET Take 1 tablet by mouth twice * GABAPENTIN 100 MG CAPSULE Take 2 capsules by mouth trevin* PRAVASTATIN 80 MG TABLET Take 1 tablet by mouth once d* DICLOFENAC 1 % TOPICAL GEL Apply 2 g to affected area fo* FUROSEMIDE 40 MG TABLET Take 1 tablet by mouth once d* TIMOLOL MALEATE 0.5 % EYE PA* Use 1 Drop in both eyes twice * LATANOPROST 0.005 % EYE DROPS Use 1 Drop in both eyes daily* PEN NEEDLE, DIABETIC 31 GAUGE* Use as directed 4 times a day * LOSARTAN 100 MG TABLET TAKE 1 TABLET EVERY DAY BY MO* CHOLECALCIFEROL (VITAMIN D3) * Take 1 tablet by mouth once d * BD ULTRA-FINE SHORT PEN NEEDL* 1 Applicator as directed. CYANOCOBALAMIN (VIT B-12) 1,0* Take 1 tablet by mouth once d * BLOOD SUGAR DIAGNOSTIC STRIPS Use as instructed tests 3 myles* LINAGLIPTIN 5 MG TABLET Take 5 mg by mouth once daily. ECOTRIN LOW STRENGTH 81 MG TA* Take one(1) tablet daily. FREESTYLE LANCETS 28 GAUGE Test 2 times daily, 250.02, n* Problem List As Of Date 10/25/2019 Noted Resolved Asthma [J45.909] 07/07/2015 Anemia in stage 3 chronic kidney disease ([facility]) * Hypertension goal BP (blood pressure) < 140/90 * Hyperlipidemia [E78.5] Polyneuropathy in diabetes (HCC) [E11.42] 07/27/2005 DIABETES MELLITUS TYPE II UNCONTR UNCOMPL [IMO0*07/27/2005 0 08/09/2008 More... Erectile dysfunction associated with type 2 diaz*07/09/2008 Overweight [E66.3] 07/09/2008 Other specified gastritis without mention of he*09/18/2008 0 07/07/2015 BPH w/o urinary obs/LUTS [N40.0] 09/18/2008 09/08/2011 Background diabetic retinopathy(362.01) ([facility]) [*09/18/2008 0 06/30/2015 Shoulder pain [M25.519] 09/25/2008 03/09/2011 More... 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] 06/22/2019 Pseudophakia of both eyes [Z96.1] 06/22/2019 Type 2 diabetes mellitus with diabetic polyneur*10/11/2019 Type 2 diabetes mellitus with stage 3 chronic k*10/11/2019 Encounter Status:Closed by [employer] NETWORK NAVIGATOR, MARIANA Antoine on 10/25/19 progress on 2019-09 PROGRESS HNO ID: [id number] Normal 10-12-2019 [facility] Author: Chanda (Beckie) Sonam [place] ([id number]) Service: ? Author Type: Nurse Practitioner Type: Progress Notes Filed: 10/12/2019 8:51 AM Note Text: Reason for Consultation: DM Type 2 Referring Physician: Jesse Glover MD [id number] [facility] [id number] HISTORY OF PRESENT ILLNESS Mr. West is a 74 year old male presenting here today for a follow up of DM Type 2. As I recall, he was initially diagnosed with diab etes 1989.He has been on insulin since 2008 *visit is being conducted via phone today with patient deeptiadrienne nt. Carpio and I are the only two in the visit. He was previously seen by Dr. Root: [facility] 03/31/2017. A1C of 8.9 on 10/09/19 Has seen RECREATION ATTENDANT LISA Nash --[facility] 2 wks ago. States she wanted him to increase lantus but he waited until our visit today. He is trying to have all providers within [facility]. BG levels higher since reducing metformin secondary to kidne y disease. Fhx of DM in mother, siblings, Maternal Aunt. Under the care of podiatry, nephrology Seeing cardiology in [place].Denies hx of GA, CVA, stents, C ABG/CAD ? Known complications include: hypertension, hyperlipidemia, retinopathy, peripheral neuropathy and CKD ? Exacerbating factors include: none ? Current diabetes regimen is as follows: 1. lantus 20 units AM and 15 units HS 2. Metformin ER 500 mg at breakfast--dose reduced a year ago 3. linagliptin 5mg daily Previous DM medications: Glimepiride he is checking his blood glucose 2 times daily. he does bring a log book today for review. ? LDE Blood Sugar Frequency: FBS 120-130 acL 170-180 ? Hypoglycemia frequency: rare ;symptoms if under 80 ? Hypoglycemia awareness: Yes Regarding symptoms of hypoglycemia, he is is not experiencin g any symptoms such as polyuria, polydipsia, nocturia or rapid weight loss or blurry vision, Overall, the patient has no acute complaints at this time. PAST MEDICAL HISTORY Diagnosis Date - Anemia in stage 3 chronic kidney disease (HCC) - Background diabetic retinopathy(362.01) 09/18/2008 [facility] eye. - Cataract of left eye - Chronic kidney disease, unspecified - CKD (chronic kidney disease) stage 3, GFR 30-59 ml/min (HC C) 05/26/2017 - Coloboma of iris OD - Depressive disorder, not elsewhere classified - Erectile dysfunction associated with type 2 diabetes edsoni tuwilfred ([facility]) 07/09/2008 - Esophageal reflux - Essential hypertension, benign - Hyperplasia of prostate - Macular edema dme od - Other and unspecified hyperlipidemia - Other specified anemias - Other specified gastritis without mention of hemorrhage - Personal history of colonic polyps 08/04/2016 - Primary open angle glaucoma OU - Proliferative diabetic retinopathy(362.02) - Pseudophakia of right eye - Shoulder pain 09/25/2008 Right. - Tubular adenoma of colon 08/10/2016 - Type II or unspecified type diabetes mellitus with ophthal bj manifestations, uncontrolled(250.52) 09/18/2008 [facility] - Unspecified asthma(493.90) - Vitreous hemorrhage of left eye ([facility]) PAST SURGICAL HISTORY Procedure Laterality Date - AVASTIN (BEVACIZUMAB) 1.25MG INTRAVITREAL INJECTION OD (RI GHT EYE) Right 04/19/2018 LAST - COLONOS W/REM POLYP SNARE 08/04/2016 Repeat 07/2019 - [facility] - COLONOSCOPY W/BX 07/25/13 Repeat due 2016 - EGD W/O OR W/BRUSH/WASH 2002 EGD - EYE SURGERY HX Right 05/02/2018 Pars plana vitrectomy, membrane peel, endolaser, and air flu id exchange right eye. - LAPAROSCOPIC CHOLEYCYSTECTOMY Mar.2002 Cholecystectomy, lap - PANRETINAL PHOTOCOAGULATION (PRP) OD (RIGHT EYE) Right 10/2014 LAST ; PRP (Panretinal Photocoagulation) OD - PANRETINAL PHOTOCOAGULATION (PRP) OS (LEFT EYE) Left 07/12 #2 ; PRP (Panretinal Photocoagulation) OS - PROSTATECTOMY SUPRAPUBIC SUBTOTAL for BPH - REMV CATARACT EXTRACAP,INSERT LENS 02/07/2007 Cataract Removal right - REMV CATARACT EXTRACAP,INSERT LENS Left 11/16/2016 Cataract Extraction with PC IOL OS - REPAIR ROTATOR CUFF,ACUTE 2008 Rotator cuff repair, Right - VITRECTOMY,MECHANICAL Left 11/16/2016 PPV/MP/EL/AFX OS FAMILY HISTORY Problem Relation Age of Onset - Breast Cancer Mother at age 55 - COPD Father Black lung - Breast Cancer Sister at age 54 - Diabetes Brother - No Ocular Disease No Family History nothing known of Social History Tobacco Use - Smoking status: Former Smoker Types: Cigars - Smokeless tobacco: Never Used - Tobacco comment: quit 40 + years ago Substance Use Topics - Alcohol use: Yes Comment: rarely, 2-3 glasses red wine per month - Drug use: No Allergies As of Date: 10/12/2019 Allergen Noted Reaction CORTISONE 05/09/2009 Other: See Comments ZESTRIL [LISINOPRIL] 01/29/2009 Intolerance Fully Assessed 08/28/2019 Current Outpatient Medications Medication Sig Dispense Refill - NIFEdipine ER (PROCARDIA XL) 90 mg 24 hr tablet Take 1 tab let by mouth once daily. 90 tablet 3 - chlorthalidone (HYGROTON) 25 mg tablet Take 1 tablet by mo uth once daily. 90 tablet 3 - carvedilol (COREG) 25 mg tablet Take 1.5 tablets by mouth twice daily with meals. 270 tablet 3 - cloNIDine HCl (CATAPRES) 0.2 mg tablet Take 1 tablet by mo uth twice daily. 180 tablet 3 - insulin glargine (LANTUS SOLOSTAR U-100 INSULIN) 100 unit/ mL (3 mL) Take twenty (20) units in the AM and fifteen (15) units at bed ti me - gabapentin (NEURONTIN) 100 mg capsule Take 2 capsules by m outh daily at bedtime. From podiatry (Dr. Cordon) - metFORMIN ER (GLUCOPHAGE XR) 500 mg 24 hr tablet Take 1 ta blet by mouth daily with breakfast. 90 tablet 1 - pravastatin (PRAVACHOL) 80 mg tablet Take 1 tablet by mout h once daily. For cholesterol. 90 tablet 3 - diclofenac sodium (VOLTAREN) 1 % topical gel Apply 2 g to affected area four times daily. 100 g 0 - furosemide (LASIX) 40 mg tablet Take 1 tablet by mouth onc e daily. - timolol maleate (TIMOPTIC) 0.5 % ophthalmic solution Use 1 Drop in both eyes twice daily. Use at 6 AM and 6 PM 1 Bottle 1 - latanoprost (XALATAN) 0.005 % ophthalmic solution Use 1 Dr op in both eyes daily at bedtime. 1 Bottle 1 - Insulin Broad Top, Disposable, (1ST TIER UNIFINE PENTIPS) 31 gauge x 3/16 ndle Use as directed 4 times a day. Dx: E11.65 400 Each 3 - losartan (COZAAR) 100 mg tablet TAKE 1 TABLET EVERY DAY BY MOUTH 30 tablet 11 - cholecalciferol (VITAMIN D) 1,000 unit tab tablet Take 1 t ablet by mouth once daily. 30 tablet 3 - BD INSULIN PEN NEEDLE UF 31 gauge x 5/16 ndle 1 Applicato r as directed. 3 - cyanocobalamin (VITAMIN B-12) 1,000 mcg tab Take 1 tablet by mouth once daily. - blood sugar diagnostic (FREESTYLE LITE STRIPS) test strip Use as instructed tests 3 times a day. Dx: DMII 100 Strip 2 - linagliptin 5 mg tab Take 5 mg by mouth once daily. 30 tab let 5 - aspirin(ECOTRIN LOW STRENGTH 81 MG TAB) Take one(1) tablet daily. 0 - lancets(FREESTYLE LANCETS) Test 2 times daily, 250.02, non insulin 200 3 No current facility-administered medications for this visit. REVIEW OF SYSTEMS General: no fever and no chills Skin: no rashes, pruritis or dry skin Cardiac: denies chest pain, heart palpitations or orthopnea Pulmonary: denies wheezing, productive cough or exertional d yspnea PHYSICAL EXAMINATION There were no vitals taken for this visit. *phone visit DATA Creatinine Date Value Ref Range Status 10/09/2019 1.87 (H) 0.73 - 1.22 mg/dL Final Hemoglobin A1C (%) Date Value 10/09/2019 8.9 ) No components found for: URINEALBUMIN Cholesterol, Total (mg/dL) Date Value 04/16/2019 147 HDL Cholesterol (mg/dL) Date Value 04/16/2019 52 LDL Cholesterol (mg/dL) Date Value 04/16/2019 73 Triglyceride (mg/dL) Date Value 04/16/2019 108 IMPRESSION: Mr. West is a 74 year old male here for evaluation of DM Ty pe 2 complicated by hypertension, hyperlipidemia, retinopathy, pe ripheral neuropathy and CKD RECOMMENDATIONS: (E11.3593, Z79.4) Type 2 diabetes mellitus with both eyes af fected by proliferative retinopathy without macular edema, with long-t erm current use of insulin (HCC) (primary encounter diagnosis) Comment: Glycemic control is above goal. Options discussed a nd will change to mixed insulin. Plan: Stop lantus Start humalog 75/25--take at the start of the meal. Breakfast 20 units Dinner 20 units Check sugars before breakfast and dinner and before bedtime a few days per week. Send them to me in 1-2 wks. Continue metformin and tradjenta. 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 Plan: See above Taking gabapentin per podiatry (E11.22, N18.3, Z79.4) Type 2 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 disease, with long-term current use of insulin (HCC) Comment: He is on low dose metformin secondary to renal dise ase Plan: Continue to follow up with nephrology (I10) Hypertension goal BP (blood pressure) < 140/90 Comment/Plan: managed per cardiology (E78.5) Hyperlipidemia, unspecified hyperlipidemia type Comment: taking pravastatin Plan: Managed per cardiology This Team Access Model visit is a phone encounter. It requir ed patient-provider interaction for the medical decision making as documented below. 21 minutes spent on the phone with patient. Chanda Phillips APRN, RECREATION ATTENDANT-C, CDE Endocrinology [facility] Medical Office Building/[address] [place], [place] [address] Fax: urinalysis with microscopic on 2019-10-09 Bilirubin, Urine Negative Negative Normal 10-09-2019 [facility] ([id number]) Comment: Performed By: #### Van WISE AWMIC #### [facility] [address] [place], [place] [address] Clarity (U) Clear Clear Normal 10-09-2019 [facility] ([id number]) Comment: Performed By: #### BILLIE U AWMIC #### [facility] [address] [place] [id number] Color (U) Light Yellow Yellow Critically abnormal 020 [facility] ([id number]) Comment: Performed By: #### BILLIE U AWMIC #### [facility] [address] [place] [address] Comments SEE COMMENT Normal 10-09-2019 [facility] (04034) Comment: Result Comment: N/A Performed By: #### BILLIE U AWMIC #### [facility] [address] [place] [phone] Glucose Ql (U) 1+ Negative mg/dL Critically abnormal 10-08 [facility] (03338) Comment: Performed By: #### BILLIE U AWMIC #### [facility] [address] [place] [address] Hemoglobin/Blood,Ur Negative Negative Normal 10-09-2019 [facility] (78036) Comment: Performed By: #### BILLIE U AWMIC #### [facility] [address] [place] [address] Ketones Ql (U) Negative Negative Normal 10-09-2019 [facility] ([id number]) Comment: Performed By: #### BILLIE U AWMIC #### [facility] [address] [place] [address] Leukest Trace Negative Critically abnormal 10-09-2019 [facility] ([id number]) Comment: Performed By: #### BILLIE U AWMIC #### [facility] [address] [place] [address] Nitrite Ql (U) Negative Negative Normal 10-09-2019 [facility] (07852) Comment: Performed By: #### BILLIE U AWMIC #### [facility] [address] [place] [address] pH (Bld) 5.0 5.0-8.0 Normal 10-09-2019 [facility] ([id number]) Comment: Performed By: #### BILLIE U AWMIC #### [facility] [address] [place] [phone] Protein (U) 2+ Negative mg/dL Critically abnormal 10-09-19 20 [facility] [Mass/Vol] [place] ([id number]) Comment: Performed By: #### BILLIE U AWMIC #### [facility] [address] [place] [phone] RBC (U) [#/Vol] 0-3 0-3 Normal 10-09-2019 [facility] (21228) Comment: Performed By: #### BILLIE U AWMIC #### [facility] [address] [place] [phone] Specific [place], Ur 1.017 1.005-1.030 Normal 020 [facility] (41976) Comment: Performed By: #### BILLIE U AWMIC #### [facility] [address] [place] [phone] Urine Bj Comment SEE COMMENT Normal 10-09-2019 [facility] (62831) Comment: Result Comment: N/A Performed By: #### BILLIE U AWMIC #### [facility] [address] [place] [phone] Urobilinogen Qn (U) Negative Negative Normal 10-09-2019 [facility] (32347) Comment: Performed By: #### BILLIE U AWMIC #### [facility] [address] [place], [place] [address] WBC (Bld) [#/Vol] 0-5 0-5 Normal 10-09-2019 [facility] ([id number]) Comment: Performed By: #### Van WISE AWMIC #### [facility] [address] [place], [place] [address] hemoglobin on 10-08 Hemoglobin (Bld) 11.3 13.0-17.0 g/dL Low 10-09-2019 [facility] [Mass/Vol] [place] ([address]783) hemoglobin a1c on 2 HbA1c (Bld) [Mass fraction] 8.9 4.3-5.6 % High [facility] (80042) Comment: Result Comment: [place] [employer] guidelines indicate that patients with HgbA1c in the range 5.7-6.4% are at increased risk for development of diabetes, and intervention by lifestyle modification may be beneficial. HgbA1c greater o r equal to 6.5% is considered diagnostic of diabetes. Performed By: #### HBA1C ### #[facility] [id number] [place], [place] [phone] HbA1c (Bld) [Mass fraction] 209 mg/dL Normal [facility] (48546) Comment: Result Comment: eAG: (Estima violet average glucose) is a calculated value from HgbA1c and is product sales representative of the average blood glucose level in the last 2-3 month period. Performed By: #### HBA1C ### #[facility] [id number] [place], [place] [phone] hematocrit on 10-08 Hematocrit (Bld) [Volume 35.1 39.0-51.0 % Low 10-08 [facility] fraction] (49150) basic metabolic panl on 2019-10-09 Anion gap [Moles/Vol] 9 9-18 mmol/L Normal 10-09-19 20 [facility] (87400) Calcium [Mass/Vol] 9.2 8.5-10.2 mg/dL Normal 10-09-2019 [facility] (46307) Chloride [Moles/Vol] 100 97-105 mmol/L Normal 0 [facility] (28289) CO2 [Moles/Vol] 26 22-30 mmol/L Normal 10-09-2019 [facility] (35537) Creatinine [Mass/Vol] 1.87 0.73-1.22 mg/dL High 10-09-19 20 [facility] (47876) eGFR- Amer. 43 Normal 10-09-2019 [facility] (61285) GFR/1.73 sq M predicted 36 . Normal 2019 [facility] among non-blacks MDRD [place] (04866) (S/P/Bld) [Vol rate/Area] Comment: Result Comment: eGFR (Estima violet GFR) Units of measure: mL/min/1.73 meters squared eGFR is derived from the ree xpressed MDRD Study equation using the following parameters: serum creatinine, age, gender and race. The creatinine assay has been calibrated to be traceable to IDMS. An eGFR <60 mL/min/1.73m2 fo r >3 months is consistent with chronic kidney disease. Refer to KDOQI guidelines for clinical interpretation. In patients with unstable re nal function, e.g. those with acute kidney injury, the eGFR may not accurately reflect actual GFR. Glucose [Mass/Vol] 278 74-99 mg/dL High 10-09-2019 [facility] (60754) Comment: Result Comment: The [place] Diabetes Association (ADA) provides guidance for cutoff values for fasting glucose and random glucose. The ADA defines fasting as no caloric intake for at least 8 hours. Fas ting plasma glucose results between 100 to 125 mg/dL indicate increased risk for diabetes (prediabetes). Fasting plasma glucose resul ts greater than or equal to 126 mg/dL meet the criteria for diagnosis of diabetes. In the absence of unequivocal hyperglycemia, results should be confirmed by repeat testing. In a patient with classic s ymptoms of hyperglycemia or hyperglycemic crisis, random plasma glucose results greater than or equal to 200 mg/dL meet the criteria for diagnosis of diabetes. Reference: Standards of [facility] Care in Diabetes 2016, [place] Diabetes Association. Diabetes Care. 2016.39(Suppl 1). Potassium [Moles/Vol] 4.2 3.7-5.1 mmol/L Normal 10-09-19 20 [facility] (69533) Sodium [Moles/Vol] 135 136-144 mmol/L Low 10-09-2019 [facility] (24992) Urea nitrogen [Mass/Vol] 37 9-24 mg/dL High 10-08 [facility] (13537) progress on 2019-09 PROGRESS HNO ID: [id number] Normal 10-04-2019 [facility] Author: Jesse Glover [place] ([id number]) Service: ? Author Type: Physician Type: Progress Notes Filed: 10/04/2019 9:05 AM Note Text: This note was created using The [employer]. Subjective This Team Access Model visit is a phone encounter. It requir ed patient-provider interaction for the medical decision making as documented below. Patient presents with: F/U HTN 6 Month F/U Diabetes 3 Month Shirin West Sr. Was here for above. He followed with LISA lawson CNP for diabetes mellitus but her records are difficult to obtain. Marco deleon mentioned being taken off glimepiride months ago. His diabetes mellitu s was historically labile. Metformin was reduced due to kidney dis ease, and he mentioned glucoses in the 150-160 range after lunch. His kid clemente function was being closely monitored. His hypertension was better con trolled. Review of Systems Constitutional: Negative for fever. HENT: Negative. Respiratory: Negative. Cardiovascular: Negative. Gastrointestinal: Negative. Neurological: Negative. 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 Adenoma of Colon Type 2 Dm With Ckd Stage 3 and Hypertension (Hcc) Secondary Hypertension Due to Renal Disease Vitreous Hemorrhage (Hcc) Optic Cupping of Both Eyes Visual Field Loss Primary Open Angle Glaucoma (Poag) of Right Eye, Severe Stag e Primary Open Angle Glaucoma (Poag) of Left Eye, Mild Stage Secondary Renal Hyperparathyroidism (Hcc) Hyperkalemia 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 - chlorthalidone (HYGROTON) 25 mg tablet Take 1 tablet by mo uth once daily. - carvedilol (COREG) 25 mg tablet Take 1.5 tablets by mouth twice daily with meals. - cloNIDine HCl (CATAPRES) 0.2 mg tablet Take 1 tablet by mo uth twice daily. - insulin glargine (LANTUS SOLOSTAR U-100 INSULIN) 100 unit/ mL (3 mL) Take twenty (20) units in the AM and fifteen (15) units at bed ti me - gabapentin (NEURONTIN) 100 mg capsule Take 2 capsules by m outh daily at bedtime. From podiatry (Dr. Cordon) - metFORMIN ER (GLUCOPHAGE XR) 500 mg 24 hr tablet Take 1 ta blet by mouth daily with breakfast. - pravastatin (PRAVACHOL) 80 mg tablet Take 1 tablet by mout h once daily. For cholesterol. - diclofenac sodium (VOLTAREN) 1 % topical gel Apply 2 g to affected area four times daily. - furosemide (LASIX) 40 mg tablet Take 1 tablet by mouth onc e daily. - timolol maleate (TIMOPTIC) 0.5 % ophthalmic solution Use 1 Drop in both eyes twice daily. Use at 6 AM and 6 PM - latanoprost (XALATAN) 0.005 % ophthalmic solution Use 1 Dr op in both eyes daily at bedtime. - Insulin Broad Top, Disposable, (1ST TIER UNIFINE PENTIPS) 31 gauge x 3/16 ndle Use as directed 4 times a day. Dx: E11.65 - losartan (COZAAR) 100 mg tablet TAKE 1 TABLET EVERY DAY BY MOUTH - cholecalciferol (VITAMIN D) 1,000 unit tab tablet Take 1 t ablet by mouth once daily. - BD INSULIN PEN NEEDLE UF 31 gauge x 5/16 ndle 1 Applicato r as directed. - cyanocobalamin (VITAMIN B-12) 1,000 mcg tab Take 1 tablet by mouth once daily. - blood sugar diagnostic (FREESTYLE LITE STRIPS) test strip Use as instructed tests 3 times a day. Dx: DMII - linagliptin 5 mg tab Take 5 mg by mouth once daily. - aspirin(ECOTRIN LOW STRENGTH 81 MG TAB) Take one(1) tablet daily. - lancets(FREESTYLE LANCETS) Test 2 times daily, 250.02, non insulin No current facility-administered medications for this visit. Objective There were no vitals taken for this visit. He sounded well, no cough or dyspnea on conversing, good moo d. Home BP readings from September 17-October 02, range 123/77-147/73, pulse 62-68. Most SBP ~130 or less. Assessment and Plan 1. Hypertension goal BP (blood pressure) < 140/90 - ICD9: 40 1.9, ICD10: I10 (primary diagnosis) - good control - Continue current medication(s) 2. Secondary hypertension due to renal disease - ICD9: 405.9 9, ICD10: I15.1 - good control - Continue current medication(s) 3. Type 2 DM with CKD stage 3 and hypertension (HCC) - ICD9: 250.40, 403.90, 585.3, ICD10: E11.22, I12.9, N18.3 Do BMP for nephrology. Add A1C. We agreed to consolidate his care for diabetes mellitus with in the [facility] system. - HGB A1C - CONSULT TO ENDOCRINOLOGY I spent 20 minutes all for discussion. Medicare Wellness and follow up in 4 months. Jesse Glover MD [facility] 2019-10-04 CNPN Telephone (INTMWS) Normal 10-04-2019 [place] SHIRIN Whipple SR. ([id number]) 1945 [facility] Date Time Provider Department ([id number]) 10/04/19 JESSE GLOVER INTMWS During your visit today, we recorded the following informati on about you: Katie Mckeon Import Customer Service Manager 10/04/2019 2:28 PM Signed PSS can you please assist wi th scheduling consult to [facility] and Medicare Wellness around 02/03/2020. Thank you. Carolyn Riley Pss 10/05/2019 8:33 AM Signed 1st attempt to reach patient. Left message for patient to [facility] office to schedule consult in [facility] and Medicare Wellness in 02/02 per PATITO Cortez Pss 10/06/2019 9:12 AM Signed Appointments scheduled. Allergies As of Date: 10/04/2019 Noted Allergy Reaction CORTISONE 05/09/2009 14 - Other: See Comments Comments: [place] real hot, as if someone threw boiling water o n him ZESTRIL (LISINOPRIL) 01/29/2009 5 - Intolerance Comments: ARF, hypokalemia Date Reviewed: 08/28/2019 Reviewed by: Trudy Wilson - Fully Assessed Reason for Visit: Appointment [186] Prescriptions as of 10/04/2019 Sig: NIFEDIPINE ER 90 MG TABLET,EX* Take 1 tablet by mouth once d * CHLORTHALIDONE 25 MG TABLET Take 1 tablet by mouth once d* CARVEDILOL 25 MG TABLET Take 1.5 tablets by mouth twi* CLONIDINE HCL 0.2 MG TABLET Take 1 tablet by mouth twice * LANTUS SOLOSTAR U-100 INSULIN* Take twenty (20) units in the * GABAPENTIN 100 MG CAPSULE Take 2 capsules by mouth trevin* METFORMIN ER 500 MG TABLET,EX* Take 1 tablet by mouth daily * PRAVASTATIN 80 MG TABLET Take 1 tablet by mouth once d* DICLOFENAC 1 % TOPICAL GEL Apply 2 g to affected area fo* FUROSEMIDE 40 MG TABLET Take 1 tablet by mouth once d* TIMOLOL MALEATE 0.5 % EYE PA* Use 1 Drop in both eyes twice * LATANOPROST 0.005 % EYE DROPS Use 1 Drop in both eyes daily* PEN NEEDLE, DIABETIC 31 GAUGE* Use as directed 4 times a day * LOSARTAN 100 MG TABLET TAKE 1 TABLET EVERY DAY BY MO* CHOLECALCIFEROL (VITAMIN D3) * Take 1 tablet by mouth once d * BD ULTRA-FINE SHORT PEN NEEDL* 1 Applicator as directed. CYANOCOBALAMIN (VIT B-12) 1,0* Take 1 tablet by mouth once d * BLOOD SUGAR DIAGNOSTIC STRIPS Use as instructed tests 3 myles* LINAGLIPTIN 5 MG TABLET Take 5 mg by mouth once daily. ECOTRIN LOW STRENGTH 81 MG TA* Take one(1) tablet daily. FREESTYLE LANCETS 28 GAUGE Test 2 times daily, 250.02, n* Problem List As Of Date 10/04/2019 Noted Resolved Asthma [J45.909] 07/07/2015 Anemia in stage 3 chronic kidney disease (HCC) * Hypertension goal BP (blood pressure) < 140/90 * Hyperlipidemia [E78.5] Polyneuropathy in diabetes ([facility]) [E11.42] 07/27/2005 DIABETES MELLITUS TYPE II UNCONTR UNCOMPL [IMO0*07/27/2005 0 08/09/2008 More... PROTEINURIA [R80.9] 08/11/2007 Erectile dysfunction associated with type 2 diaz*07/09/2008 Overweight [E66.3] 07/09/2008 Diabetes mellitus type 2, uncontrolled, with co*09/18/2008 Other specified gastritis without mention of he*09/18/2008 0 07/07/2015 BPH w/o urinary obs/LUTS [N40.0] 09/18/2008 09/08/2011 Background diabetic retinopathy(362.01) ([facility]) [*09/18/2008 0 06/30/2015 Shoulder pain [M25.519] 09/25/2008 03/09/2011 More... 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] 06/22/2019 Pseudophakia of both eyes [Z96.1] 06/22/2019 Encounter Status:Closed by ROSE JUAREZ on 10/06/19 cnpn on 2019-09-28 CNPN Telephone (OPHTMN) Normal 09-28-2019 [place] SHIRIN Whipple SR. ([id number]) 1945 [facility] Date Time Provider Department ([id number]) 09/28/19 ADIA FINNEGAN OPHTMN During your visit today, we recorded the following informati on about you: Shruthi Vargas 09/28/2019 8:43 AM Signed Patient called [phone] He was seen by Dr. Mcdonnell for a pressure check last w [place]. wanted to let you know he has been having inte rmittent eye pain in OU but more frequent in the OS Please advise ? FV 11/21/19 ? Adia Finnegan at 03/15/2019 10:15 AM ? Status: Signed 1. Insulin dependent Diabetes Mellitus ? ? Hemoglobin A1C (%) Date Value 10/18/2017 9.9 05/25/2017 7.9 ) - Stressed blood pressure and blood sugar control and close follow-up with PCP/pointer helper - Working on adjusting insulin 2. Q Proliferative diabetic retinopathy Both Eyes - RIGHT: - s/p Panretinal laser photocoagulation #5 (last 08/29/14, 08/08/14, 10/04/13, 07/05/13, 04/05/13) - s/p Avastin #3?(last 04/19/18,?03/23/18,?02/17/17) - s/p Pars plana vitrectomy/EL (05/02/18) -?OCT: atrophy, non foveal edema - Observe ? - LEFT: - s/p Panretinal laser photocoagulation #2 (07/12/13, 03/29/13 ) - s/p?Phaco/PCIOL/PPV/MP/EL/FAx (11/16/16) - OCT with extrafoveal IRF and ERM - Plan= Observe 4. 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 Wilson, continue timolol and la de souza ------ I have confirmed and edited as necessary the relevant ophthalmic history, ROS, and the clinical/neuro exam findings as obtained by others . I have seen and examined this patient. I have discussed the case and the m anagement of this patient's care with the Resident/Fellow, if applicable . I also have reviewed and agree with the assessment and plan as stated above and agree with all of its relevant components on?03/15/2019 ? ? Adia Finnegan MD [facility] Chair of Ophthalmology Research Professor of Ophthalmology, [facility]reoretinal Staff, [facility] ? ? ? Roma Hawkins LPN 10/10/2019 4:12 PM Signed ----- Message from Jesse Glover sent at 10/10/2019 3:56 PM EDT ----- DM worsening. Schedule endocrinology consult that was orde red at the recent visit. Roma Hawkins LPN 10/10/2019 4:14 PM Signed Patient notified of below results/recommendation . PSR please help Patient get scheduled w/Endo. Roma Uriarte 10/11/2019 1:52 PM Signed Spoke with patient and scheduled for 10/11. Allergies As of Date: 09/28/2019 Noted Allergy Reaction CORTISONE 05/09/2009 14 - Other: See Comments Comments: [place] real hot, as if someone threw boiling water o n him ZESTRIL (LISINOPRIL) 01/29/2009 5 - Intolerance Comments: ARF, hypokalemia Date Reviewed: 08/28/2019 Reviewed by: Trudy Wilson - Fully Assessed Reason for Visit: Patient Update [1234] Prescriptions as of 09/28/2019 Sig: NIFEDIPINE ER 90 MG TABLET,EX* Take 1 tablet by mouth once d * CHLORTHALIDONE 25 MG TABLET Take 1 tablet by mouth once d* CARVEDILOL 25 MG TABLET Take 1.5 tablets by mouth twi* CLONIDINE HCL 0.2 MG TABLET Take 1 tablet by mouth twice * LANTUS SOLOSTAR U-100 INSULIN* Take twenty (20) units in the * GABAPENTIN 100 MG CAPSULE Take 2 capsules by mouth trevin* METFORMIN ER 500 MG TABLET,EX* Take 1 tablet by mouth daily * PRAVASTATIN 80 MG TABLET Take 1 tablet by mouth once d* DICLOFENAC 1 % TOPICAL GEL Apply 2 g to affected area fo* FUROSEMIDE 40 MG TABLET Take 1 tablet by mouth once d* TIMOLOL MALEATE 0.5 % EYE PA* Use 1 Drop in both eyes twice * LATANOPROST 0.005 % EYE DROPS Use 1 Drop in both eyes daily* PEN NEEDLE, DIABETIC 31 GAUGE* Use as directed 4 times a day * LOSARTAN 100 MG TABLET TAKE 1 TABLET EVERY DAY BY MO* CHOLECALCIFEROL (VITAMIN D3) * Take 1 tablet by mouth once d * X GLIMEPIRIDE 2 MG TABLET Take 1 tablet by mouth daily * BD ULTRA-FINE SHORT PEN NEEDL* 1 Applicator as directed. CYANOCOBALAMIN (VIT B-12) 1,0* Take 1 tablet by mouth once d * BLOOD SUGAR DIAGNOSTIC STRIPS Use as instructed tests 3 myles* LINAGLIPTIN 5 MG TABLET Take 5 mg by mouth once daily. ECOTRIN LOW STRENGTH 81 MG TA* Take one(1) tablet daily. FREESTYLE LANCETS 28 GAUGE Test 2 times daily, 250.02, n* Problem List As Of Date 09/28/2019 Noted Resolved Asthma [J45.909] 07/07/2015 Anemia in stage 3 chronic kidney disease (HCC) * Hypertension goal BP (blood pressure) < 140/90 * Hyperlipidemia [E78.5] Polyneuropathy in diabetes (HCC) [E11.42] 07/27/2005 DIABETES MELLITUS TYPE II UNCONTR UNCOMPL [IMO0*07/27/2005 0 08/09/2008 More... PROTEINURIA [R80.9] 08/11/2007 Erectile dysfunction associated with type 2 diaz*07/09/2008 Overweight [E66.3] 07/09/2008 Diabetes mellitus type 2, uncontrolled, with co*09/18/2008 Other specified gastritis without mention of he*09/18/2008 0 07/07/2015 BPH w/o urinary obs/LUTS [N40.0] 09/18/2008 09/08/2011 Background diabetic retinopathy(362.01) ([facility]) [*09/18/2008 0 06/30/2015 Shoulder pain [M25.519] 09/25/2008 03/09/2011 More... 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] 06/22/2019 Pseudophakia of both eyes [Z96.1] 06/22/2019 Encounter Status:Closed by MARKUS URIARTE on 10/11/19 cnpn on 2019-09-19 CNPN Telephone (INTMWS) Normal 09-19-2019 [place] SHIRIN Whipple SR. ([id number]) 1945 M [place] Date Time Provider Department ([id number]) 09/19/19 JESSE GLOVER INTMWS During your visit today, we recorded the following informati on about you: Amanuel Whitaker 09/19/2019 12:35 PM Signed Patient calls with concern that his kidney function hand s worsened. States his afternoon blood sugars have been elevated to su und 270 approximately 2 hours after he eats lunch. FBS this am was 135 ; concerned more with the afternoon BS causing worse kidney functio n. He is taking Lantus 20 units am; 15 units HS and metformin 500 mg per day per LISA Nash RECREATION ATTENDANT; last visit with her was about a month ago. States glimepiride has been discontinued. Due to get re peat labs per nephrology in 2 weeks. appt with pcp 10/04/19. Also requesting refills of pended medications to [facility]. Jesse Glover MD 09/20/2019 9:38 AM Signed Patient's request for medication is as follows Signed Prescriptions Disp Refills NIFEdipine ER (PROCARDIA XL) 90 mg 24 hr tablet 90 tablet 3 Sig: Take 1 tablet by mouth once daily. CLARKE: No Authorizing Provider: JESSE GLOVER chlorthalidone (HYGROTON) 25 mg tablet 90 tablet 3 Sig: Take 1 tablet by mouth once daily. CLARKE: No Authorizing Provider: JESSE GLOVER carvedilol (COREG) 25 mg tablet 270 tablet 3 Sig: Take 1.5 tablets by mouth twice daily with meals. CLARKE: No Authorizing Provider: JESSE GLOVER cloNIDine HCl (CATAPRES) 0.2 mg tablet 180 tablet 3 Sig: Take 1 tablet by mouth twice daily. CLARKE: No Authorizing Provider: JESSE GLOVER insulin glargine (LANTUS SOLOSTAR U-100 INSULIN) 100 unit/mL (3 mL) Sig: Take twenty (20) units in the AM and fifteen (15) units at bed time CLARKE: No Authorizing Provider: JESSE GLOVER Refused Prescriptions Disp Refills metFORMIN ER (GLUCOPHAGE XR) 500 mg 24 hr tablet 90 tablet 1 Sig: Take 1 tablet by mouth daily with breakfast. CLARKE: No Refused By: JESSE GLOVER MD Reason for Refusal: Request already responded to by other me ans (for example, phone, fax) Reason for Refusal Comment: this is current. Medication list updated. Follow recommendations from nephrol ogy and endocrinology. Have home BP readings and glucose readings for follow up visit. MD Roz Godinez LPN 09/20/2019 10:44 AM Signed Patient notified of results and provider's instructions. P atient verbalizes understanding. Roz Levi LPN Allergies As of Date: 09/19/2019 Noted Allergy Reaction CORTISONE 05/09/2009 14 - Other: See Comments Comments: [place] real hot, as if someone threw boiling water o n him ZESTRIL (LISINOPRIL) 01/29/2009 5 - Intolerance Comments: ARF, hypokalemia Date Reviewed: 08/28/2019 Reviewed by: Trudy Wilson - Fully Assessed Reason for Visit: kidney function [Other] Visit Diagnoses:Screening for genitourinary condition [Z13.8 9] CKD (chronic kidney disease) stage 3, GFR 30-59 ml/min ([facility]) [N18.3] Type 2 DM with CKD stage 3 and hypertension ([facility]) [E11.22, I12.9, N18.3] 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] Mixed hyperlipidemia [E78.2] Hypertension goal BP (blood pressure) < 140/90 [I10] Uncontrolled type 2 diabetes mellitus with complication, wit h long-term current use of insulin ([facility]) [E11.8, E11.65, Z79.4 ] Diabetic polyneuropathy associated with diabetes mellitus du e to underlying condition ([facility]) [E08.42] Order(s):NIFEdipine ER (PROCARDIA XL) 90 mg 24 hr tabletTake 1 tablet by mouth once daily.Disp: 90 tabletRfl: 3 chlorthalidone (HYGROTON) 25 mg tabletTake 1 tablet by mouth once daily.Disp: 90 tabletRfl: 3 carvedilol (COREG) 25 mg tabletTake 1.5 tablets by mouth twi ce daily with meals.Disp: 270 tabletRfl: 3 cloNIDine HCl (CATAPRES) 0.2 mg tabletTake 1 tablet by mouth twice daily.Disp: 180 tabletRfl: 3 insulin glargine (LANTUS SOLOSTAR U-100 INSULIN) 100 unit/mL (3 mL)Take twenty (20) units in the AM and fifteen (15) units a t bed timeDisp: Rfl: Prescriptions as of 09/19/2019 Sig: NIFEDIPINE ER 90 MG TABLET,EX* Take 1 tablet by mouth once d * CHLORTHALIDONE 25 MG TABLET Take 1 tablet by mouth once d* CARVEDILOL 25 MG TABLET Take 1.5 tablets by mouth twi* CLONIDINE HCL 0.2 MG TABLET Take 1 tablet by mouth twice * LANTUS SOLOSTAR U-100 INSULIN* Take twenty (20) units in the * GABAPENTIN 100 MG CAPSULE Take 2 capsules by mouth trevin* METFORMIN ER 500 MG TABLET,EX* Take 1 tablet by mouth daily * PRAVASTATIN 80 MG TABLET Take 1 tablet by mouth once d* DICLOFENAC 1 % TOPICAL GEL Apply 2 g to affected area fo* FUROSEMIDE 40 MG TABLET Take 1 tablet by mouth once d* TIMOLOL MALEATE 0.5 % EYE PA* Use 1 Drop in both eyes twice * LATANOPROST 0.005 % EYE DROPS Use 1 Drop in both eyes daily* PEN NEEDLE, DIABETIC 31 GAUGE* Use as directed 4 times a day * LOSARTAN 100 MG TABLET TAKE 1 TABLET EVERY DAY BY MO* CHOLECALCIFEROL (VITAMIN D3) * Take 1 tablet by mouth once d * GLIMEPIRIDE 2 MG TABLET Take 1 tablet by mouth daily * BD ULTRA-FINE SHORT PEN NEEDL* 1 Applicator as directed. CYANOCOBALAMIN (VIT B-12) 1,0* Take 1 tablet by mouth once d * BLOOD SUGAR DIAGNOSTIC STRIPS Use as instructed tests 3 myles* LINAGLIPTIN 5 MG TABLET Take 5 mg by mouth once daily. ECOTRIN LOW STRENGTH 81 MG TA* Take one(1) tablet daily. FREESTYLE LANCETS 28 GAUGE Test 2 times daily, 250.02, n* Problem List As Of Date 09/19/2019 Noted Resolved Asthma [J45.909] 07/07/2015 Anemia in stage 3 chronic kidney disease (HCC) * Hypertension goal BP (blood pressure) < 140/90 * Hyperlipidemia [E78.5] Polyneuropathy in diabetes (HCC) [E11.42] 07/27/2005 DIABETES MELLITUS TYPE II UNCONTR UNCOMPL [IMO0*07/27/2005 0 08/09/2008 More... PROTEINURIA [R80.9] 08/11/2007 Erectile dysfunction associated with type 2 diaz*07/09/2008 Overweight [E66.3] 07/09/2008 Diabetes mellitus type 2, uncontrolled, with co*09/18/2008 Other specified gastritis without mention of he*09/18/2008 0 07/07/2015 BPH w/o urinary obs/LUTS [N40.0] 09/18/2008 09/08/2011 Background diabetic retinopathy(362.01) ([facility]) [*09/18/2008 0 06/30/2015 Shoulder pain [M25.519] 09/25/2008 03/09/2011 More... 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 CHLORTHALIDONE 25 MG TABLET 90 t* 3 09/20/2019 Route: ORAL Sig: Take 1 tablet by mouth once daily. CARVEDILOL 25 MG TABLET 270 * 3 09/20/2019 03/18/2020 Route: ORAL Sig: Take 1.5 tablets by mouth twice daily with meals. CLONIDINE HCL 0.2 MG TABLET 180 * 3 09/20/2019 03/18/2020 Route: ORAL Sig: Take 1 tablet by mouth twice daily. LANTUS SOLOSTAR U-100 INSULIN 100 UN* 09/20/2019 Class: Med Update Sig: Take twenty (20) units in the AM and fifteen (15) units at bed time Medications Discontinued During This Encounter NIFEdipine ER (PROCARDIA XL) 90 mg 2* 90 t* 3 09/12/201809/19 Route: ORAL Sig: Take 1 tablet by mouth once daily. Disc: Reason for discontinue is not on file. chlorthalidone (HYGROTON) 25 mg tabl* 60 t* 3 09/12/201809/19 Route: ORAL Sig: Take 1 tablet by mouth once daily. Disc: Reason for discontinue is not on file. carvedilol (COREG) 25 mg tablet 270 * 3 09/12/2018 09/20/2019 Route: ORAL Sig: Take 1.5 tablets by mouth twice daily with meals. Disc: Reason for discontinue is not on file. cloNIDine HCl (CATAPRES) 0.2 mg tabl* 180 * 3 09/12/201809/19 Route: ORAL Sig: Take 1 tablet by mouth twice daily. Disc: Reason for discontinue is not on file. insulin glargine (LANTUS SOLOSTAR U-* 5 Pen 5 05/01/201909/19 Class: [facility] Sig: Take ten (10) units in the AM and fifteen (15) units at bed time Disc: Reason for discontinue is not on file. Blood Pressure Monitor (BLOOD PRESSU* 1 Kit 0 09/13/201809/19 Sig: Dx: Uncontrolled hypertension I10 Disc: Reason for discontinue is not on file. gabapentin (NEURONTIN) 100 mg capsule 60 c* 5 01/06/201809/19 Route: ORAL Sig: Take 2 capsules by mouth daily at bedtime for 180 days. Disc: Reason for discontinue is not on file. Encounter Status:Closed by ROZ LEVI LPN on 09/20/19 cnpn on 2019-09-17 CNPN Telephone (NEPHST) Normal 09-17-2019 [place] SHIRIN Whipple SR. ([id number]) 1945 [facility] Date Time Provider Department ([id number]) 09/17/19 TERESSA MARRERO NEPH During your visit today, we recorded the following informati on about you: Teressa Marrero MD 09/17/2019 12:23 PM Signed Kidney function is slightly worse than b efore-need to check trend and rule out reversible factors.Please notify patient to repeat ordered labs in 2 weeks. Rebekah French Ma 09/18/2019 10:10 AM Signed Left a message on voice to call office back. Please see mess age below. Makenna Wallace 09/18/2019 10:21 AM Signed Patient called into the office. Given message as below, voices understanding. 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 (HCC) [E11.22, I12.9, N18.3] Order(s):BASIC METABOLIC PNL [SQBMP] Order #: [id number] FUT URE Prescriptions as of 09/17/2019 Sig: METFORMIN ER 500 MG TABLET,EX* Take 1 tablet by mouth daily * PRAVASTATIN 80 MG TABLET Take 1 tablet by mouth once d* DICLOFENAC 1 % TOPICAL GEL Apply 2 g to affected area fo* FUROSEMIDE 40 MG TABLET Take 1 tablet by mouth once d* TIMOLOL MALEATE 0.5 % EYE PA* Use 1 Drop in both eyes twice * LATANOPROST 0.005 % EYE DROPS Use 1 Drop in both eyes daily* INSULIN GLARGINE (U-100) 100 * Take ten (10) units in the AM * PEN NEEDLE, DIABETIC 31 GAUGE* Use as directed 4 times a day * LOSARTAN 100 MG TABLET TAKE 1 TABLET EVERY DAY BY MO* BLOOD PRESSURE MONITOR KIT Dx: Uncontrolled hypertension* NIFEDIPINE ER 90 MG TABLET,EX* Take 1 tablet by mouth once d * CHLORTHALIDONE 25 MG TABLET Take 1 tablet by mouth once d* CARVEDILOL 25 MG TABLET Take 1.5 tablets by mouth twi* CLONIDINE HCL 0.2 MG TABLET Take 1 tablet by mouth twice * CHOLECALCIFEROL (VITAMIN D3) * Take 1 tablet by mouth once d * GLIMEPIRIDE 2 MG TABLET Take 1 tablet by mouth daily * BD ULTRA-FINE SHORT PEN NEEDL* 1 Applicator as directed. CYANOCOBALAMIN (VIT B-12) 1,0* Take 1 tablet by mouth once d * GABAPENTIN 100 MG CAPSULE Take 2 capsules by mouth trevin* BLOOD SUGAR DIAGNOSTIC STRIPS Use as instructed tests 3 myles* LINAGLIPTIN 5 MG TABLET Take 5 mg by mouth once daily. ECOTRIN LOW STRENGTH 81 MG TA* Take one(1) tablet daily. FREESTYLE LANCETS 28 GAUGE Test 2 times daily, 250.02, n* Problem List As Of Date 09/17/2019 Noted Resolved Asthma [J45.909] 07/07/2015 Anemia in stage 3 chronic kidney disease (HCC) * Hypertension goal BP (blood pressure) < 140/90 * Hyperlipidemia [E78.5] Polyneuropathy in diabetes (HCC) [E11.42] 07/27/2005 DIABETES MELLITUS TYPE II UNCONTR UNCOMPL [IMO0*07/27/2005 0 08/09/2008 More... PROTEINURIA [R80.9] 08/11/2007 Erectile dysfunction associated with type 2 diaz*07/09/2008 Overweight [E66.3] 07/09/2008 Diabetes mellitus type 2, uncontrolled, with co*09/18/2008 Other specified gastritis without mention of he*09/18/2008 0 07/07/2015 BPH w/o urinary obs/LUTS [N40.0] 09/18/2008 09/08/2011 Background diabetic retinopathy(362.01) (HCC) [*09/18/2008 0 06/30/2015 Shoulder pain [M25.519] 09/25/2008 03/09/2011 More... 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 [place] [address] Color (U) Light Yellow Yellow Critically abnormal 020 [facility] ([id number]) Comment: Performed By: #### UAWMIC ## ## [facility] [address] [place] [address] Comments SEE COMMENT Normal 09-14-2019 [facility] ([id number]) Comment: Result Comment: N/A Performed By: #### UAWMIC ## ## [facility] [address] [place] [phone] Glucose Ql (U) Negative Negative Normal 09-14-2019 [facility] ([id number]) Comment: Performed By: #### UAWMIC ## ## [facility] [address] [place] [phone] Hemoglobin/Blood,Ur Negative Negative Normal 09-14-2019 [facility] ([id number]) Comment: Performed By: #### UAWMIC ## ## [facility] [place] [phone] Ketones Ql (U) Negative Negative Normal 09-14-2019 [facility] ([id number]) Comment: Performed By: #### UAWMIC ## ## [facility] [place] [phone] Leukest Negative Negative Normal 09-14-2019 [facility] ([id number]) Comment: Performed By: #### UAWMIC ## ## [facility] [address] [place] [address] Nitrite Ql (U) Negative Negative Normal 09-14-2019 [facility] ([id number]) Comment: Performed By: #### UAWMIC ## ## [facility] [address] [place], [place] [address] pH (Bld) 6.0 5.0-8.0 Normal 09-14-2019 [facility] ([id number]) Comment: Performed By: #### UAWMIC ## ## [facility] [place] [address] Protein (U) 1+ Negative mg/dL Critically abnormal 09-14-19 [facility] [Mass/Vol] [place] ([id number]) Comment: Performed By: #### UAWMIC ## ## [place] [address] RBC (U) [#/Vol] 0-3 0-3 Normal 09-14-2019 [facility] ([id number]) Comment: Performed By: #### UAWMIC ## ## [place] [address] [place], [place] [address] Specific [place], Ur 1.017 1.005-1.030 Normal 020 [facility] ([id number]) Comment: Performed By: #### UAWMIC ## ## [place] [address] [place] [address] Urine Bj Comment SEE COMMENT Normal 09-14-2019 [facility] ([id number]) Comment: Result Comment: N/A Performed By: #### UAWMIC ## ## [facility] [place] [id number] Urobilinogen Qn (U) 1+ Negative E.U./dL Critically 0 [facility] (70979) Comment: Performed By: #### UAWMIC ## ## [facility] [address] [address] WBC (Bld) [#/Vol] 0-5 0-5 Normal 09-14-2019 [facility] ([id number]) Comment: Performed By: #### UAWMIC ## ## [facility] [address] [place], [place] [address] uric acid on 20 Urate [Mass/Vol] 8.1 4.0-8.1 mg/dL Normal 09-14-2019 [facility] ([id number]) renal function panel on 2019-09-14 Albumin [Mass/Vol] 4.1 3.9-4.9 g/dL Normal 09-14-2019 [facility] (68766) Comment: Performed By: #### PTHI, RFP ####[place] [address] [address] [place], [place] [phone] Anion gap [Moles/Vol] 11 9-18 mmol/L Normal 09-14-19 [facility] (59097) Comment: Performed By: #### PTHI, RFP ####[place] [address] [address] [place], [place] [phone]- [phone] Calcium [Mass/Vol] 9.2 8.5-10.2 mg/dL Normal 09-14-2019 [facility] (44616) Comment: Performed By: #### PTHI, RFP ####[facility] [place] [place], [place] [phone] Chloride [Moles/Vol] 103 97-105 mmol/L Normal 0 [facility] (10617) Comment: Performed By: #### PTHI, RFP ####[facility] [place], [place] [phone] CO2 [Moles/Vol] 25 22-30 mmol/L Normal 09-14-2019 [facility] (05462) Comment: Performed By: #### PTHI, RFP ####[facility], [place] [phone] Creatinine [Mass/Vol] 1.97 0.73-1.22 mg/dL High 09-14-19 [facility] (43592) Comment: Performed By: #### PTHI, RFP ####[facility] [address] [place], [place] [phone]- [phone] eGFR- Amer. 41 Normal 09-14-2019 [facility] (35685) Comment: Performed By: #### PTHI, RFP ####[facility] [address] [place], [place] [phone] GFR/1.73 sq M predicted among 34 . Normal 09-14-2019 [facility] non-blacks MDRD (S/P/Bld) [Vol (51917) rate/Area] Comment: Result Comment: eGFR (Estima violet GFR) Units of measure: mL/min/1.73 meters squared eGFR is derived from the ree xpressed MDRD Study equation using the following parameters: serum creatinine, age, gender and race. The creatinine assay has been calibrated to be traceable to IDMS. An eGFR <60 mL/min/1.73m2 fo r >3 months is consistent with chronic kidney disease. Refer to KDOQI guidelines for clinical interpretation. In patients with unstable re nal function, e.g. those with acute kidney injury, the eGFR may not accurately reflect actual GFR. Performed By: #### PTHI, RFP ####[facility] [address] [place], [place] [phone] Glucose [Mass/Vol] 147 74-99 mg/dL High 09-14-2019 [facility] (22020) Comment: Result Comment: The [place] [employer] (ADA) provides guidance for cutoff values for fasting glucose and random glucose. The ADA defines fasting as no caloric intake for at least 8 hours. Fas ting plasma glucose results between 100 to 125 mg/dL indicate increased risk for diabetes (prediabetes). Fasting plasma glucose resul ts greater than or equal to 126 mg/dL meet the criteria for diagnosis of diabetes. In the absence of unequivocal hyperglycemia, results should be confirmed by repeat testing. In a patient with classic s ymptoms of hyperglycemia or hyperglycemic crisis, random plasma glucose results greater than or equal to 200 mg/dL meet the criteria for diagnosis of diabetes. Reference: Standards of [facility] Care in Diabetes 2016, [place] [employer]. Diabetes Care. 2016.39(Suppl 1). Performed By: #### PTHI, RFP ####[place] [address] [address] [place], [place] [phone] Phosphate [Mass/Vol] 4.2 2.7-4.8 mg/dL Normal 0 [facility] ([id number]) Comment: Performed By: #### PTHI, RFP ####[place] [address] [address] [place], [place] [phone] Potassium [Moles/Vol] 4.4 3.7-5.1 mmol/L Normal 09-14-19 20 [facility] (63928) Comment: Performed By: #### PTHI, RFP ####[address], [place] [phone]- [phone] Sodium [Moles/Vol] 139 136-144 mmol/L Normal 09-14-2019 [facility] (01746) Comment: Performed By: #### PTHI, RFP ####[place] [address] [address], [place] [phone] Urea nitrogen [Mass/Vol] 34 9-24 mg/dL High 09-13 [facility] (08764) Comment: Performed By: #### PTHI, RFP ####[place] [address] [address] [place], [place] [phone]- [phone] pth, intact on 2019 PTH, Intact 91 15-65 pg/mL High 09-14-2019 [facility] (99011) Comment: Performed By: #### PTHI, RFP ####[place] [address] [address] [place], [place] [phone]- [phone] protein/creatinine ratio on 2019-09-14 Creatinine,Urine,Ran 148.5 20-300 mg/dL Normal 0 [facility] (30651) Comment: Performed By: #### PRATIO ## ##[facility] [id number] [place], [place] [phone] Protein (U) [Mass/Vol] 20 0-20 mg/dL Normal 09-13- 020 [facility] ([id number]) Comment: Performed By: #### PRATIO ## ##[facility] [id number] [place], [place] [phone] Protein/Creatinine Ratio 0.1 <0.2 Normal 09-13 [facility] ([id number]) Comment: Performed By: #### PRATIO ## ##[facility] [id number] [place], [place] [phone] hemoglobin on 09-13 Hemoglobin (Bld) 10.9 13.0-17.0 g/dL Low 09-14-2019 [facility] [Mass/Vol] [place] ([id number]) hematocrit on 09-13 Hematocrit (Bld) [Volume 34.9 39.0-51.0 % Low 09-13 [facility] fraction] ([id number]) cnpn on 2019-09-07 CNPN Telephone (OPHTMN) Normal 09-07-2019 [place] [facility] SHIRIN WEST SRJi ([id number]) 1945 [facility] Date Time Provider Department ([id number]) 09/07/19 ADIA FINNEGAN OPHULISES During your visit today, we recorded the following informati on about you: Fangmarieadrienne Mingo 09/07/2019 2:36 PM Signed Patient has an appt next dima yip on 09/12. Just saw Dr. Wilson on 08/27. Wants to know if you can review Dr. Wilson's note and let him know if he really needs to be seen nor not. He would rather not come d uring the virus outbreak but will come if needed. Please advise [phone] (home) Adia Finnegan at 03/15/2019 10:15 AM Status: Signed 1. Insulin dependent Diabetes Mellitus ? ? Hemoglobin A1C (%) Date Value 10/18/2017 9.9 05/25/2017 7.9 ) - Stressed blood pressure and blood sugar control and close follow-up with PCP/pointer helper - Working on adjusting insulin 2. Q Proliferative diabetic retinopathy Both Eyes - RIGHT: - s/p Panretinal laser photocoagulation #5 (last 08/29/14, 08/08/14, 10/04/13, 07/05/13, 04/05/13) - s/p Avastin #3?(last 04/19/18, 03/23/18,?02/17/17) - s/p Pars plana vitrectomy/EL (05/02/18) - OCT: atrophy, non foveal edema - Observe ? - LEFT: - s/p Panretinal laser photocoagulation #2 (07/12/13, 03/29/13 ) - s/p?Phaco/PCIOL/PPV/MP/EL/FAx (11/16/16) - OCT with extrafoveal IRF and ERM - Plan= Observe 4. 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 Wilson, continue timolol and la de souza ------ I have confirmed and edited as necessary the relevant ophthalmic history, ROS, and the clinical/neuro exam findings as obtained by others . I have seen and examined this patient. I have discussed the case and the master caballerogement of this patient's care with the Resident/Fellow, if applicable . I also have reviewed and agree with the assessment and plan as stated above and agree with all of its relevant components on 03/15/2019 ? ? Adia Finnegan MD [facility] Chair of Ophthalmology Research Professor of Ophthalmology, [facility] Vitreoretinal Staff, [facility] ? Lazarus Delaney 09/07/2019 2:39 PM Signed Notified. Elisha From: Jose Finnegan, Adia Hanson Sent: Saturday, September 07, 2019 2:37 PM To: Lazarus Delaney Cc: Shruthi Vargas ; Karthik Vera Subject: Re: Shirin West Appt question Ok to move till 3 months from now Sent from my [employer] Allergies As of Date: 09/07/2019 Noted Allergy Reaction CORTISONE 05/09/2009 14 - Other: See Comments Comments: [place] real hot, as if someone threw boiling water o n him ZESTRIL (LISINOPRIL) 01/29/2009 5 - Intolerance Comments: ARF, hypokalemia Date Reviewed: 08/28/2019 Reviewed by: Trudy Wilson - Fully Assessed Reason for Visit: Future Appointment [[id number]] Prescriptions as of 09/07/2019 Sig: METFORMIN ER 500 MG TABLET,EX* Take 1 tablet by mouth daily * PRAVASTATIN 80 MG TABLET Take 1 tablet by mouth once d* DICLOFENAC 1 % TOPICAL GEL Apply 2 g to affected area fo* FUROSEMIDE 40 MG TABLET Take 1 tablet by mouth once d* TIMOLOL MALEATE 0.5 % EYE PA* Use 1 Drop in both eyes twice * LATANOPROST 0.005 % EYE DROPS Use 1 Drop in both eyes daily* INSULIN GLARGINE (U-100) 100 * Take ten (10) units in the AM * PEN NEEDLE, DIABETIC 31 GAUGE* Use as directed 4 times a day * LOSARTAN 100 MG TABLET TAKE 1 TABLET EVERY DAY BY MO* BLOOD PRESSURE MONITOR KIT Dx: Uncontrolled hypertension* NIFEDIPINE ER 90 MG TABLET,EX* Take 1 tablet by mouth once d * CHLORTHALIDONE 25 MG TABLET Take 1 tablet by mouth once d* CARVEDILOL 25 MG TABLET Take 1.5 tablets by mouth twi* CLONIDINE HCL 0.2 MG TABLET Take 1 tablet by mouth twice * CHOLECALCIFEROL (VITAMIN D3) * Take 1 tablet by mouth once d * GLIMEPIRIDE 2 MG TABLET Take 1 tablet by mouth daily * BD ULTRA-FINE SHORT PEN NEEDL* 1 Applicator as directed. CYANOCOBALAMIN (VIT B-12) 1,0* Take 1 tablet by mouth once d * GABAPENTIN 100 MG CAPSULE Take 2 capsules by mouth trevin* BLOOD SUGAR DIAGNOSTIC STRIPS Use as instructed tests 3 myles* LINAGLIPTIN 5 MG TABLET Take 5 mg by mouth once daily. ECOTRIN LOW STRENGTH 81 MG TA* Take one(1) tablet daily. FREESTYLE LANCETS 28 GAUGE Test 2 times daily, 250.02, n* Problem List As Of Date 09/07/2019 Noted Resolved Asthma [J45.909] 07/07/2015 Anemia in stage 3 chronic kidney disease ([facility]) * Hypertension goal BP (blood pressure) < 140/90 * Hyperlipidemia [E78.5] Polyneuropathy in diabetes ([facility]) [E11.42] 07/27/2005 DIABETES MELLITUS TYPE II UNCONTR UNCOMPL [IMO0*07/27/2005 0 08/09/2008 More... PROTEINURIA [R80.9] 08/11/2007 Erectile dysfunction associated with type 2 diaz*07/09/2008 Overweight [E66.3] 07/09/2008 Diabetes mellitus type 2, uncontrolled, with co*09/18/2008 Other specified gastritis without mention of he*09/18/2008 0 07/07/2015 BPH w/o urinary obs/LUTS [N40.0] 09/18/2008 09/08/2011 Background diabetic retinopathy(362.01) ([facility]) [*09/18/2008 0 06/30/2015 Shoulder pain [M25.519] 09/25/2008 03/09/2011 More... 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 Author Type: Physician Type: Progress Notes Filed: 08/28/2019 3:13 PM Note Text: ASSESSMENT/PLAN: 1. Primary open angle glaucoma (POAG) of right eye, severe s tage - ICD9: 365.11, 365.73, ICD10: H40.1113 (primary diagnosis) 2. Primary open angle glaucoma (POAG) of left eye, mild stag e - ICD9: 365.11, 365.71, ICD10: H40.1121 - The nature of glaucoma was discussed, with emphasis on the non-reversible damage to the optic nerve. Treatment options and the importance of regular examinations and testing were covered in detail, as well as the consequences of non-compliance. The patient was given the opportunity to ask questions. Current Ophthalmic Meds timolol maleate (TIMOPTIC) 0.5 % ophthalmic solution (Taking ) Use 1 Drop in both eyes twice daily. Use at 6 AM and 6 PM latanoprost (XALATAN) 0.005 % ophthalmic solution (Taking) U se 1 Drop in both eyes daily at bedtime. 3. 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 - Continue care with Dr. Finnegan Retina. 4. Punctate keratitis, bilateral - ICD9: 370.21, ICD10: H16. 143 Continue Systane Complete Artificial Tears - Use 1 Drop into both eyes three times a day. Trudy Wilson MD I have confirmed and edited as necessary the relevant ophtha lmic history, review of systems, surgical history, and ophthalmological ex amination findings as obtained by the ophthalmic technical staff. I hand ve seen and examined Shirin eWst Sr.. I have discussed the examination findings, diagnosis, and treatment options with Shirin West Sr. and/o r his family. I have also reviewed and agree with the assessment and plan as stated above and agree with all its relevant components. I gave the patient the opportunity to ask questions about the findings, diagnosis, and treatment options. The documentation for this note was completed by ALEJANDRINA Wellington, acting as a scribe for Trudy Wilson MD. 08/28/2019 3:12 PM. progress on 2019-07 PROGRESS HNO ID: [id number] Normal 08-22-2019 [place] Author: [facility]ressa [facility] Service: ? [place] Author Type: Physician ([id number]) Type: Progress Notes Filed: 08/22/2019 1:05 PM Note Text: [facility] NEPHROLOGY AND [facility]YPERTENSION [facility] NEPHROLOGY: Name:Shirin West Sr. The patient, Shirin West Sr., identity was verified by name and MRN. CHIEF COMPLAINT: F/U for DM2 with diabetic CKD stage 3 w/HTN Initial visit with me today-patient was followed by [facility] neph rology at [facility]-last seen by Dr. Ponce and Dr. Armando Raymond on 11/13 Subjective/interval history: Shirin West Sr. is a 74 year o ld male with moderate CKD in the setting of type II DM and HTN -Cr has be en abnormal since 2014. Baseline serum cr ranges from 1.7-1.9 mg/dl. He has nonnephrotic range proteinuria-on losartan Other medical problems include hyperlipidemia, BPH, erectile dysfunction, DJD, diabetic retinopathy and neuropathy. Kidney ultrasound done on 03/28/2017 showed right kidney 11.2 cm; left kidney 12 cm-no stones or hydronephrosis Renal artery duplex done in 2016 did not show renal artery s tenosis Noted to have worsening renal function in May 2019-when BS w as noted to be ~400 and cr 2.2mg/dl(outside lab -05/31/19)-Cr from 06/01/19 w as 1.89mg/dl Follows with a non-[facility] classroom teacher-has appt with him today Patient denies CP, SOB, orthopnea or PND. Denies progressive leg edema No nausea, emesis,abdominal pain or diarrhea No dysuria, gross hematuria or new flank pain. No fever or chills. No dizziness,HAND or focal numbness or weakness. Wt is stable Current Outpatient Medications Medication Sig - metFORMIN ER (GLUCOPHAGE XR) 500 mg 24 hr tablet Take 1 ta blet by mouth daily with breakfast. - pravastatin (PRAVACHOL) 80 mg tablet Take 1 tablet by mout h once daily. For cholesterol. - diclofenac sodium (VOLTAREN) 1 % topical gel Apply 2 g to affected area four times daily. - furosemide (LASIX) 40 mg tablet Take 1 tablet by mouth onc e daily. - timolol maleate (TIMOPTIC) 0.5 % ophthalmic solution Use 1 Drop in both eyes twice daily. Use at 6 AM and 6 PM - latanoprost (XALATAN) 0.005 % ophthalmic solution Use 1 Dr op in both eyes daily at bedtime. - insulin glargine (LANTUS SOLOSTAR U-100 INSULIN) 100 unit/ mL (3 mL) inpn Take ten (10) units in the AM and fifteen (15) units at bed time - Insulin Broad Top, Disposable, (1ST TIER UNIFINE PENTIPS) 31 gauge x 3/16 ndle Use as directed 4 times a day. Dx: E11.65 - losartan (COZAAR) 100 mg tablet TAKE 1 TABLET EVERY DAY BY MOUTH - Blood Pressure Monitor (BLOOD PRESSURE KIT) kit Dx: Uncont rolled hypertension I10 - NIFEdipine ER (PROCARDIA XL) 90 mg 24 hr tablet Take 1 tab let by mouth once daily. - chlorthalidone (HYGROTON) 25 mg tablet Take 1 tablet by mo uth once daily. - carvedilol (COREG) 25 mg tablet Take 1.5 tablets by mouth twice daily with meals. - cloNIDine HCl (CATAPRES) 0.2 mg tablet Take 1 tablet by mo uth twice daily. - cholecalciferol (VITAMIN D) 1,000 unit tab tablet Take 1 t ablet by mouth once daily. - glimepiride (AMARYL) 2 mg tablet Take 1 tablet by mouth da dorothy with breakfast. - BD INSULIN PEN NEEDLE UF 31 gauge x 5/16 ndle 1 Applicato r as directed. - cyanocobalamin (VITAMIN B-12) 1,000 mcg tab Take 1 tablet by mouth once daily. - blood sugar diagnostic (FREESTYLE LITE STRIPS) test strip Use as instructed tests 3 times a day. Dx: DMII - linagliptin 5 mg tab Take 5 mg by mouth once daily. - aspirin(ECOTRIN LOW STRENGTH 81 MG TAB) Take one(1) tablet daily. - lancets(FREESTYLE LANCETS) Test 2 times daily, 250.02, non insulin - gabapentin (NEURONTIN) 100 mg capsule Take 2 capsules by m outh daily at bedtime for 180 days. No current facility-administered medications for this visit. PAST MEDICAL HISTORY Diagnosis Date - Background diabetic retinopathy(362.01) 09/18/2008 [facility]. - Cataract of left eye - Chronic kidney disease, unspecified - CKD (chronic kidney disease) stage 3, GFR 30-59 ml/min (HC C) 05/26/2017 - Coloboma of iris OD - Depressive disorder, not elsewhere classified - Erectile dysfunction associated with type 2 diabetes isai garcia ([facility]) 07/09/2008 - Esophageal reflux - Essential hypertension, benign - Hyperplasia of prostate - Macular edema dme od - Other and unspecified hyperlipidemia - Other specified anemias - Other specified gastritis without mention of hemorrhage - Personal history of colonic polyps 08/04/2016 - Primary open angle glaucoma OU - Proliferative diabetic retinopathy(362.02) - Pseudophakia of right eye - Shoulder pain 09/25/2008 Right. - Tubular adenoma of colon 08/10/2016 - Type II or unspecified type diabetes mellitus with ophthal bj manifestations, uncontrolled(250.52) 09/18/2008 [facility] - Unspecified asthma(493.90) - Vitreous hemorrhage of left eye (HCC) Social History Tobacco Use - Smoking status: Former Smoker Types: Cigars - Smokeless tobacco: Never Used - Tobacco comment: quit 40 + years ago Substance Use Topics - Alcohol use: Yes Comment: rarely, 2-3 glasses red wine per month - Drug use: No FAMILY HISTORY Problem Relation Age of Onset - Breast Cancer Mother at age 55 - COPD Father Black lung - Breast Cancer Sister at age 54 - Diabetes Brother - No Ocular Disease No Family History nothing known of REVIEW OF SYSTEMS: Pertinent positives and negatives in HPI. All other systems reviewed and negative PHYSICAL EXAM: Last 3 Encounter BP Readings: Date: BP: 11/30/2018 156/84 11/13/2018 162/85 10/09/2018 175/82 Last 3 Encounter Wt Readings: Date: Wt: 11/30/2018 88.5 kg (195 lb) 11/13/2018 89.4 kg (197 lb 3.2 oz) 10/09/2018 88.5 kg (195 lb) O: BP 162/85 Pulse 76 Ht 177.8 cm (5' 10) Wt 88 kg (1 94 lb) SpO2 99% BMI 27.84 kg/m? GENERAL: alert, well appearing, in no acute distress. HEENT:EOMI intact.Nonicteric sclera NECK: supple;No carotid bruit, JVD or lymphadenopathy LUNGS: clear to auscultation;Normal respiratory effort CVS:RRR; S1 S2 normal. NO S3 OR S4. No murmurs ABD: soft, nontender; organomegaly could not be excluded : B S positive EXT: No leg edema ; no cyanosis. SKIN: no generalized skin rash or ulcers. NEURO:Alert;No focal deficit on limited exam PSYCHIATRY: Appropriate mood and affect. LABS: Following labs were reviewed in today's visit. CKD LAB FLOWSHEET Latest Ref Rng AND Units 09/07/2018 11/14/1904/16/2019 04/18/2019 06/01/2019 EGFR- - 43 46 46 - 43 EGFR-ALL OTHER RACES . 36 38 38 - 35 CREATININE 0.73 - 1.22 mg/dL 1.88(H) 1.76(H) 1.78(H) - 1.89( H) BUN 9 - 24 mg/dL 36(H) 26(H) 33(H) - 42(H) SODIUM 136 - 144 mmol/L 134(L) 135(L) 138 - 133(L) POTASSIUM 3.7 - 5.1 mmol/L 4.9 4.7 5.3(H) - 4.8 CHLORIDE 97 - 105 mmol/L 99 102 102 - 96(L) CO2 22 - 30 mmol/L 22 23 22 - 23 GLUCOSE 74 - 99 mg/dL 353(H) 173(H) 239(H) - 318(H) CALCIUM 8.5 - 10.2 mg/dL 9.3 9.4 9.3 - 9.6 PHOSPHORUS 2.7 - 4.8 mg/dL 4.1 3.6 3.3 - 3.6 ALBUMIN 3.9 - 4.9 g/dL 4.2 4.4 4.4 - 4.4 WBC 3.70 - 11.00 k/uL - - 3.86 - - HEMOGLOBIN 13.0 - 17.0 g/dL - - 11.4(L) - - PLATELET COUNT 150 - 400 k/uL - - 327 - - IRON 41 - 186 ug/dL - 92 - - - TRANSFERRIN SATURATION 15 - 57 % - 29 - - - FERRITIN 30.3 - 565.7 ng/mL - 122.3 - - - TIBC 232 - 386 ug/dL - 312 - - - VITAMIN D 25 HYDROXY 31.0 - 80.0 ng/mL - 29.9(L) - - 39.1 PTH, INTACT 15 - 65 pg/mL - - - - 63 PROTEIN, URINE RANDOM 0 - 20 mg/dL - 36(H) - 77(H) - CREATININE, UR RANDOM (UCRR) 20 - 300 mg/dL - 131.6 290.4 17 5.4 - PROTEIN/CREATININE RATIO <0.2 - 0.3(H) - 0.4(H) - CHOLESTEROL, TOTAL <200 mg/dL - - 147 - - TRIGLYCERIDE <150 mg/dL - - 108 - - HDL CHOLESTEROL >39 mg/dL - - 52 - - LDL CHOLESTEROL <100 mg/dL - - 73 - - Some recent data might be hidden ] ASSESSMENT: 1. Type 2 DM with CKD stage 3 and hypertension (HCC) (primar y encounter diagnosis): CKD in the setting of type II DM and HTN. Serum creatinine h as been abnormal since 2014. Baseline serum creatinine has ranged between 1.7-1.9 mg/dL Last creatinine level from 06/01/19 was within baseline. Suboptimal BP control-Pt states home BP at target but does n ot know his meds-we will adjust medications with monitoring to achieve t arget of 130/80 or less Suboptimal diabetic control-last hemoglobin A1c from 9 was higher than target. Discussed need to manage risk factors and avoid NSAIDs, IV c ontrast and other nephrotoxins 2. Persistent proteinuria: Mild proteinuria in the setting o f long-standing DM. He most likely has underlying diabetic nephropathy-negative paraproteinemia and collagen vascular d isease workup. Patient is already on losartan Discussed role of strict BP control and low-protein diet in preventing progression. 3. Anemia in stage 3 chronic kidney disease (HCC): Denies an y overt losses. Hemoglobin was stable on last check; will continue t o check periodically to assess need for iron/ANALISA. 4. Hyperkalemia: In the setting of CKD and losartan-improved on low potassium diet 5. Secondary renal hyperparathyroidism: Noted to have low vi tamin D-received supplements. We will update labs periodically to assess need for Rocaltrol/phosphate binders. 6. Hyperlipidemia, unspecified hyperlipidemia type:On statin s-Recommend LDL goal of <100 to prevent progression of CKD. PLAN: Avoid Advil ,Ibuprofen(Motrin),Aleve(Naproxen),Meloxicam and other pain/arthritis medications called NSAIDS. You can take Tylen ol if necessary. Avoid IV contrast Follow low salt , low potassium and low protein diet. Pt has seen physician credentialing specialist Check BP at home everyday at 10 am and 7pm for next two week s and bring this record along with your BP machine to nurse-clinic visit . Hold BP meds for SBP less than 100 and call advice nurse BP check in 2 weeks Labs today and in 3 months Reinforced compliance with prescribed regimen and dietary re strictions FOLLOW-UP: In 3 months with Madiha Hamm SIGNATURE:Teressa Marrero MD Staff Data Capture Clerk DATE:Jul TIME: 12:58 PM cnov on 2019-08-22 CNOV Office Visit (NEPHST) Normal 08-22-19 20 [place] SHIRIN Whipple SR. ([id number]) 1945 M [place] Date Time Provider Department ([id number]) 08/22/19 11:55 AM TERESSA MARRERO NEPH During your visit today, we recorded the following informati on about you: Pulse Blood pressure Weight Height 76/minute 162/85 88 kg 1.778 m Teressa Marrero MD 08/22/2019 1:05 PM Signed [facility] NEPHROLOG[facility]ION [facility] NEPHROLOGY: Name:Shirin West Sr. The patient, Shirin West Sr., identity was verified by name and MRN. CHIEF COMPLAINT: F/U for DM2 with diabetic CKD stage 3 w/HTN Initial visit with me today-patient was followed by [facility] rology at [facility]-last seen by Dr. Ponce and Dr. Armando Raymond on 11/13 Subjective/interval history: Shirin West Sr. is a 74 year o ld male with moderate CKD in the setting of type II DM and HT N -Cr has been abnormal since 2014. Baseline serum cr ranges from 1.7-1.9 mg/dl. He has nonnephrotic range proteinuria-on losartan Other medical problems include hyperlipi demia, BPH, erectile dysfunction, DJD, diabetic retinopathy and neuropathy. Kidney ultrasound done on showed right kidney 11.2 cm; left kidney 12 cm-no stones or hydronephrosis Renal artery duplex done in 2016 did not show renal artery s tenosis Noted to have worsening angel l function in May 2019-when BS was noted to be ~400 and cr 2.2mg/dl(outside lab -05/31/19)-Cr from 06/01/19 was 1. 89mg/dl Follows with a non-[facility] classroom teacher-has appt with him today Patient denies CP, SOB, orthopnea or PND. Denies progressive leg edema No nausea, emesis,abdominal pain or diarrhea No dysuria, gross hematuria or new flank pain. No fever or chills. No dizziness,HAND or focal numbness or weakness. Wt is stable Current Outpatient Medications Medication Sig - metFORMIN ER (GLUCOPHAGE X R) 500 mg 24 hr tablet Take 1 tablet by mouth daily with breakfast. - pravastatin (PRAVACHOL) 80 mg tablet Take 1 ta blet by mouth once daily. For cholesterol. - diclofenac sodium (VOLTAREN) 1 % topic al gel Apply 2 g to affected area four times daily. - furosemide (LASIX) 40 mg tablet Take 1 tablet by mouth onc e daily. - timolol maleate (TIMOPTIC) 0.5 % ophth almic solution Use 1 Drop in both eyes twice daily. Use at 6 AM and 6 PM - latanoprost (XALATAN) 0.005 % ophthalmic solution Use 1 Drop in both eyes daily at bedtime. - insulin glargine (LANTUS S OLOSTAR U-100 INSULIN) 100 unit/mL (3 mL) inpn Take ten (10) units in the AM and fifteen (15) units at bed time - Insulin Broad Top, Disposabl e, (1ST TIER UNIFINE PENTIPS) 31 gauge x 3/16 ndle Use as directed 4 times a day. Dx: E11.65 - losartan (COZAAR) 100 mg tablet TAKE 1 TABLET EVERY DAY BY MOUTH - Blood Pressure Monitor (BL OOD PRESSURE KIT) kit Dx: Uncontrolled hypertension I10 - NIFEdipine ER (PROCARDIA XL) 90 mg 24 hr table t Take 1 tablet by mouth once daily. - chlorthalidone (HYGROTON) 25 mg tablet Take 1 tablet by mouth once daily. - carvedilol (COREG) 25 mg tablet Take 1.5 tablets by mouth twice daily with meals. - cloNIDine HCl (CATAPRES) 0.2 mg tablet Take 1 tablet by mouth twice daily. - cholecalciferol (VITAMIN D ) 1,000 unit tab tablet Take 1 tablet by mouth once daily. - glimepiride (AMARYL) 2 mg tablet Take 1 tablet by mouth daily with breakfast. - BD INSULIN PEN NEEDLE UF 31 gauge x 5/16 ndle 1 Applicato r as directed. - cyanocobalamin (VITAMIN B-12) 1,000 mcg tab Take 1 tablet by mouth once daily. - blood sugar diagnostic (FREESTYLE LITE STRIPS) test strip Use as instructed tests 3 times a day. Dx: DMII - linagliptin 5 mg tab Take 5 mg by mouth once daily. - aspirin(ECOTRIN LOW STRENGTH 81 MG TAB) Take one(1) tablet daily. - lancets(FREESTYLE LANCETS) Test 2 times daily, 250.02, non insulin - gabapentin (NEURONTIN) 100 mg capsule Take 2 capsules by m outh daily at bedtime for 180 days. No current facility-administered medications for this visit. PAST MEDICAL HISTORY Diagnosis Date - Background diabetic retinopathy(362.01) 09/18/2008 [facility] eye. - Cataract of left eye - Chronic kidney disease, unspecified - CKD (chronic kidney disease) stage 3, GFR 30-59 ml/min (HC C) 05/26/2017 - Coloboma of iris OD - Depressive disorder, not elsewhere classified - Erectile dysfunction assoc iated with type 2 diabetes mellitus (HCC) 07/09/2008 - Esophageal reflux - Essential hypertension, benign - Hyperplasia of prostate - Macular edema dme od - Other and unspecified hyperlipidemia - Other specified anemias - Other specified gastritis without mention of hemorrhage - Personal history of colonic polyps 08/04/2016 - Primary open angle glaucoma OU - Proliferative diabetic retinopathy(362.02) - Pseudophakia of right eye - Shoulder pain 09/25/2008 Right. - Tubular adenoma of colon 08/10/2016 - Type II or unspecified typ e diabetes mellitus with ophthalmic manifestations, uncontrolled(250.52) 09/18/2008 iddm - Unspecified asthma(493.90) - Vitreous hemorrhage of left eye (HCC) Social History Tobacco Use - Smoking status: Former Smoker Types: Cigars - Smokeless tobacco: Never Used - Tobacco comment: quit 40 + years ago Substance Use Topics - Alcohol use: Yes Comment: rarely, 2-3 glasses red wine per month - Drug use: No FAMILY HISTORY Problem Relation Age of Onset - Breast Cancer Mother at age 55 - COPD Father Black lung - Breast Cancer Sister at age 54 - Diabetes Brother - No Ocular Disease No Family History nothing known of REVIEW OF SYSTEMS: Pertinent positives and negatives in HPI. All other systems reviewed and negative PHYSICAL EXAM: Last 3 Encounter BP Readings: Date: BP: 11/30/2018 156/84 11/13/2018 162/85 10/09/2018 175/82 Last 3 Encounter Wt Readings: Date: Wt: 11/30/2018 88.5 kg (195 lb) 11/13/2018 89.4 kg (197 lb 3.2 oz) 10/09/2018 88.5 kg (195 lb) O: BP 162/85 Pulse 76 Ht 177.8 cm (5' 10) Wt 88 kg (1 94 lb) SpO2 99% BMI 27.84 kg/m? GENERAL: alert, well appearing, in no acute distress. HEENT:EOMI intact.Nonicteric sclera NECK: supple;No carotid bruit, JVD or lymphadenopathy LUNGS: clear to auscultation;Normal respiratory effort CVS:RRR; S1 S2 normal. NO S3 OR S4. No murmurs ABD: soft, nontender; organomegaly could not be excluded : B S positive EXT: No leg edema ; no cyanosis. SKIN: no generalized skin rash or ulcers. NEURO:Alert;No focal deficit on limited exam PSYCHIATRY: Appropriate mood and affect. LABS: Following labs were reviewed in today's visit. CKD LAB FLOWSHEET Latest Ref Rng AND Units 09/07/2018 11/14/1904/16/2019 04/18/2019 06/01/2019 EGFR- - 43 46 46 - 43 EGFR-ALL OTHER RACES . 36 38 38 - 35 CREATININE 0.73 - 1.22 mg/dL 1.88(H) 1.76(H) 1.78(H) - 1.89( H) BUN 9 - 24 mg/dL 36(H) 26(H) 33(H) - 42(H) SODIUM 136 - 144 mmol/L 134(L) 135(L) 138 - 133(L) POTASSIUM 3.7 - 5.1 mmol/L 4.9 4.7 5.3(H) - 4.8 CHLORIDE 97 - 105 mmol/L 99 102 102 - 96(L) CO2 22 - 30 mmol/L 22 23 22 - 23 GLUCOSE 74 - 99 mg/dL 353(H) 173(H) 239(H) - 318(H) CALCIUM 8.5 - 10.2 mg/dL 9.3 9.4 9.3 - 9.6 PHOSPHORUS 2.7 - 4.8 mg/dL 4.1 3.6 3.3 - 3.6 ALBUMIN 3.9 - 4.9 g/dL 4.2 4.4 4.4 - 4.4 WBC 3.70 - 11.00 k/uL - - 3.86 - - HEMOGLOBIN 13.0 - 17.0 g/dL - - 11.4(L) - - PLATELET COUNT 150 - 400 k/uL - - 327 - - IRON 41 - 186 ug/dL - 92 - - - TRANSFERRIN SATURATION 15 - 57 % - 29 - - - FERRITIN 30.3 - 565.7 ng/mL - 122.3 - - - TIBC 232 - 386 ug/dL - 312 - - - VITAMIN D 25 HYDROXY 31.0 - 80.0 ng/mL - 29.9(L) - - 39.1 PTH, INTACT 15 - 65 pg/mL - - - - 63 PROTEIN, URINE RANDOM 0 - 20 mg/dL - 36(H) - 77(H) - CREATININE, UR RANDOM (UCRR) 20 - 300 mg/dL - 131.6 290.4 17 5.4 - PROTEIN/CREATININE RATIO <0.2 - 0.3(H) - 0.4(H) - CHOLESTEROL, TOTAL <200 mg/dL - - 147 - - TRIGLYCERIDE <150 mg/dL - - 108 - - HDL CHOLESTEROL >39 mg/dL - - 52 - - LDL CHOLESTEROL <100 mg/dL - - 73 - - Some recent data might be hidden ] ASSESSMENT: 1. Type 2 DM with CKD stage 3 and hypertension (HCC) (primar y encounter diagnosis): CKD in the setting of type II DM and HTN. Serum creati nine has been abnormal since 2014. Baseline serum creatinine has ranged between 1.7-1.9 mg/dL Last creatinine level from 06/01/19 was within baseline. Suboptimal BP control-Pt sta mayela home BP at target but does not know his meds-we will adjust medications with monitoring to achieve target of 130/80 or less Suboptimal diabetic control-last hemoglobin A1c from 04/16/19 was higher than target. Discussed need to manage risk factors and avoid NSAIDs, IV contrast and other nephrotoxins 2. Persistent proteinuria: Mild proteinuria in the setting of long-standing DM. He most likely has under lying diabetic nephropathy-negative paraproteinemia and collagen vascular disease workup. Patient is already on losartan Discussed role of strict BP control and low-protein diet in preventing progression. 3. Anemia in stage 3 chronic kidney disease (HCC): Denies any overt losses. Hemoglobin was stable on last check; will continue to chec k periodically to assess need for iron/ANALISA. 4. Hyperkalemia: In the setting of CKD and losar de souza-improved on low potassium diet 5. Secondary renal hyperparathyroidism: Noted to have low vitamin D-received supplements. We will update labs periodically to assess need for Rocaltrol/phosphate binders. 6. Hyperlipidemia, unspecified hyperlipidemia type:On stat ins-Recommend LDL goal of <100 to prevent progression of CKD. PLAN: Avoid Advil ,Ibuprofen(Motrin),Aleve(Naproxen),Meloxicam and other pain/arthritis medications called NSAIDS. You can take Tylenol if necessary. Avoid IV contrast Follow low salt , low potassium and low protein diet. Pt has seen physician credentialing specialist Check BP at home everyday at 10 am and 7pm for next tw o weeks and bring this record along with your BP machine to nurse-clinic visit. Hold BP meds for SBP less than 100 and call advice nurse BP check in 2 weeks Labs today and in 3 months Reinforced compliance with prescribed regimen and dietary re strictions FOLLOW-UP: In 3 months with Madiha Hamm SIGNATURE:Teressa Marrero MD Staff Data Capture Clerk DATE:Jul TIME: 12:58 PM Teressa Marrero MD 08/22/2019 12:16 PM Addendum Avoid Advil ,Ibuprofen(Motrin),Aleve(Naproxen),Meloxicam and other pain/arthritis medications called NSAIDS. You can take Tylenol if necessary. Avoid intravenous contrast with imaging studies if possible. If this is needed, please have the ordering provider contact nephrology Follow low salt diet and avoid high protein diets. Check BP at home everyday at noon and 7pm for next two wee ks and bring this record along with your BP machine to nurse-clinic visit. BP check in 2 weeks Please stop by the lab today to have blood work drawn. Have blood work done in 3 months . Follow up with Madiha Hamm in 3 months. Please have you lab work done one week prior to your appoint ment. Please bring a complete list of your medications , the dosage and times taken- to every visit. We want to know that ALL of your concerns/needs releva nt to this visit- were met today and that we have hopefully exceeded your expectati ons. If not-please let us know how we can improve our service to you by calling [phone] You may be receiving a survey regarding your care today. If you do, please take a few minutes to fill it out and send it back. It would be greatly appreciated. Referring Provider: SELF [[id number]] Allergies As of Date: 08/22/2019 Noted Allergy Reaction CORTISONE 05/09/2009 14 - Other: See Comments Comments: [place] real hot, as if someone threw boiling water o n him ZESTRIL (LISINOPRIL) 01/29/2009 5 - Intolerance Comments: ARF, hypokalemia Date Reviewed: 08/22/2019 Reviewed by: Bharat Kothari - Fully Assessed Reason for Visit: Recheck [92] Primary Visit Diagnosis:Type 2 DM with CKD stage 3 and hyper tension (HCC) [E11.22, I12.9, N18.3] Other Visit Diagnoses:Persistent proteinuria [R80.1] Anemia in stage 3 chronic kidney disease (HCC) [N18.3, D63.1] Hyperkalemia [E87.5] Secondary renal hyperparathyroidism (HCC) [N25.81] Hyperlipidemia, unspecified hyperlipidemia type [E78.5] Order(s):RENAL FUNCTION PANEL [SQRFP] Order #: [id number] PTH INTACT BLD [SQPTHI] Order #: [id number] URIC ACID BLOOD [SQURIC] Order #: [id number] PROTEIN CREATININE RATIO [SQPRATIO] Order #: [id number] URINALYSIS WITH MICROSCOPIC [SQUAWMIC] Order #: [id number] F UTURE HEMATOCRIT (HCT) [SQHCT] Order #: [id number] FUTURE HEMOGLOBIN (HGB) [SQHGB] Order #: [id number] FUTURE Prescriptions as of 08/22/2019 Sig: METFORMIN ER 500 MG TABLET,EX* Take 1 tablet by mouth daily * PRAVASTATIN 80 MG TABLET Take 1 tablet by mouth once d* DICLOFENAC 1 % TOPICAL GEL Apply 2 g to affected area fo* FUROSEMIDE 40 MG TABLET Take 1 tablet by mouth once d* TIMOLOL MALEATE 0.5 % EYE PA* Use 1 Drop in both eyes twice * LATANOPROST 0.005 % EYE DROPS Use 1 Drop in both eyes daily* INSULIN GLARGINE (U-100) 100 * Take ten (10) units in the AM * PEN NEEDLE, DIABETIC 31 GAUGE* Use as directed 4 times a day * LOSARTAN 100 MG TABLET TAKE 1 TABLET EVERY DAY BY MO* BLOOD PRESSURE MONITOR KIT Dx: Uncontrolled hypertension* NIFEDIPINE ER 90 MG TABLET,EX* Take 1 tablet by mouth once d * CHLORTHALIDONE 25 MG TABLET Take 1 tablet by mouth once d* CARVEDILOL 25 MG TABLET Take 1.5 tablets by mouth twi* CLONIDINE HCL 0.2 MG TABLET Take 1 tablet by mouth twice * CHOLECALCIFEROL (VITAMIN D3) * Take 1 tablet by mouth once d * GLIMEPIRIDE 2 MG TABLET Take 1 tablet by mouth daily * BD ULTRA-FINE SHORT PEN NEEDL* 1 Applicator as directed. CYANOCOBALAMIN (VIT B-12) 1,0* Take 1 tablet by mouth once d * BLOOD SUGAR DIAGNOSTIC STRIPS Use as instructed tests 3 myles* LINAGLIPTIN 5 MG TABLET Take 5 mg by mouth once daily. ECOTRIN LOW STRENGTH 81 MG TA* Take one(1) tablet daily. FREESTYLE LANCETS 28 GAUGE Test 2 times daily, 250.02, n* GABAPENTIN 100 MG CAPSULE Take 2 capsules by mouth trevin* Problem List As Of Date 08/22/2019 Noted Resolved Asthma [J45.909] 07/07/2015 Anemia in stage 3 chronic kidney disease ([facility]) * Hypertension goal BP (blood pressure) < 140/90 * Hyperlipidemia [E78.5] Polyneuropathy in diabetes ([facility]) [E11.42] 07/27/2005 DIABETES MELLITUS TYPE II UNCONTR UNCOMPL [E11.*07/27/2005 0 08/09/2008 More... PROTEINURIA [R80.9] 08/11/2007 Erectile dysfunction associated with type 2 diaz*07/09/2008 Overweight [E66.3] 07/09/2008 Diabetes mellitus type 2, uncontrolled, with co*09/18/2008 Other specified gastritis without mention of he*09/18/2008 0 07/07/2015 BPH w/o urinary obs/LUTS [N40.0] 09/18/2008 09/08/2011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 Bauman . Echocardiogram and peripheral arterial studies completed as ordered by classroom teacher, patient has results with him today and were no rmal. Also seeing raise driller, Lasix decreased to 40 mg daily. BP has been well controlled, home average 120's/60's. Checking blood sugars d aily, average between 110-120. Denies low blood sugars. Rn Recruitment is Dr. Cordon, had appointment last week. REVIEW OF SYSTEMS General: no fevers, no chills, no night sweats, no recurrent infections, no change in appetite, no change in energy and no significan t changes in weight Respiratory: no cough, no wheezing, no shortness of breath, no hemoptysis Cardiovascular: no chest pain, no chest pressure, no palpita tions and no swelling PAST MEDICAL HISTORY Diagnosis Date - Background diabetic retinopathy(362.01) 09/18/2008 [facility]. - Cataract of left eye - Chronic kidney disease, unspecified - CKD (chronic kidney disease) stage 3, GFR 30-59 ml/min (HC C) 05/26/2017 - Coloboma of iris OD - Depressive disorder, not elsewhere classified - Erectile dysfunction associated with type 2 diabetes edsoni tuwilfred ([facility]) 07/09/2008 - Esophageal reflux - Essential hypertension, benign - Hyperplasia of prostate - Macular edema dme od - Other and unspecified hyperlipidemia - Other specified anemias - Other specified gastritis without mention of hemorrhage - Personal history of colonic polyps 08/04/2016 - Primary open angle glaucoma OU - Proliferative diabetic retinopathy(362.02) - Pseudophakia of right eye - Shoulder pain 09/25/2008 Right. - Tubular adenoma of colon 08/10/2016 - Type II or unspecified type diabetes mellitus with ophthal bj manifestations, uncontrolled(250.52) 09/18/2008 iddm - Unspecified asthma(493.90) - Vitreous hemorrhage of left eye ([facility]) PAST SURGICAL HISTORY Procedure Laterality Date - AVASTIN (BEVACIZUMAB) 1.25MG INTRAVITREAL INJECTION OD (RI GHT EYE) Right 04/19/2018 LAST - COLONOS W/REM POLYP SNARE 08/04/2016 Repeat 07/2019 - [facility] - COLONOSCOPY W/BX 07/25/13 Repeat due 2016 - EGD W/O OR W/BRUSH/WASH 2002 EGD - EYE SURGERY HX Right 05/02/2018 Pars plana vitrectomy, membrane peel, endolaser, and air flu id exchange right eye. - LAPAROSCOPIC CHOLEYCYSTECTOMY Mar.2002 Cholecystectomy, lap - PANRETINAL PHOTOCOAGULATION (PRP) OD (RIGHT EYE) Right 10/2014 LAST ; PRP (Panretinal Photocoagulation) OD - PANRETINAL PHOTOCOAGULATION (PRP) OS (LEFT EYE) Left 07/12 #2 ; PRP (Panretinal Photocoagulation) OS - PROSTATECTOMY SUPRAPUBIC SUBTOTAL for BPH - REMV CATARACT EXTRACAP,INSERT LENS 02/07/2007 Cataract Removal right - REMV CATARACT EXTRACAP,INSERT LENS Left 11/16/2016 Cataract Extraction with PC IOL OS - REPAIR ROTATOR CUFF,ACUTE 2008 Rotator cuff repair, Right - VITRECTOMY,MECHANICAL Left 11/16/2016 PPV/MP/EL/AFX OS ALLERGIES Cortisone; Zestril [Lisinopril] MEDICATIONS timolol maleate (TIMOPTIC) 0.5 % ophthalmic solution Use 1 D rop in both eyes twice daily. Use at 6 AM and 6 PM latanoprost (XALATAN) 0.005 % ophthalmic solution Use 1 Drop in both eyes daily at bedtime. insulin glargine (LANTUS SOLOSTAR U-100 INSULIN) 100 unit/mL (3 mL) inpn Take ten (10) units in the AM and fifteen (15) units at bed time Insulin Broad Top, Disposable, (1ST TIER UNIFINE PENTIPS) 31 g auge x 09/09 ndle Use as directed 4 times a day. Dx: E11.65 metFORMIN ER (GLUCOPHAGE XR) 500 mg 24 hr tablet Take 1 tabl et by mouth daily with breakfast. losartan (COZAAR) 100 mg tablet TAKE 1 TABLET EVERY DAY BY OUT Blood Pressure Monitor (BLOOD PRESSURE KIT) kit Dx: Uncontro lled hypertension I10 NIFEdipine ER (PROCARDIA XL) 90 mg 24 hr tablet Take 1 table t by mouth once daily. chlorthalidone (HYGROTON) 25 mg tablet Take 1 tablet by mout h once daily. furosemide (LASIX) 40 mg tablet Take 1 tablet by mouth twice daily. cholecalciferol (VITAMIN D) 1,000 unit tab tablet Take 1 tab let by mouth once daily. pravastatin (PRAVACHOL) 80 mg tablet Take 1 tablet by mouth once daily. For cholesterol. glimepiride (AMARYL) 2 mg tablet Take 1 tablet by mouth trevin y with breakfast. BD INSULIN PEN NEEDLE UF 31 gauge x 11/09 ndle 1 Applicator as directed. cyanocobalamin (VITAMIN B-12) 1,000 mcg tab Take 1 tablet by mouth once daily. blood sugar diagnostic (FREESTYLE LITE STRIPS) test strip Us e as instructed tests 3 times a day. Dx: DMII aspirin(ECOTRIN LOW STRENGTH 81 MG TAB) Take one(1) tablet d aily. lancets(FREESTYLE LANCETS) Test 2 times daily, 250.02, non i nsulin perflutren lipid microspheres (DEFINITY) 1.1 mg/mL injection (to be provided with echo procedure) Inject 1.3 mL intravenously as directed. carvedilol (COREG) 25 mg tablet Take 1.5 tablets by mouth tw ice daily with meals. cloNIDine HCl (CATAPRES) 0.2 mg tablet Take 1 tablet by mout h twice daily. gabapentin (NEURONTIN) 100 mg capsule Take 2 capsules by laura th daily at bedtime for 180 days. linagliptin 5 mg tab Take 5 mg by mouth once daily. FAMILY HISTORY Problem Relation Age of Onset - Breast Cancer Mother at age 55 - COPD Father Black lung - Breast Cancer Sister at age 54 - Diabetes Brother - No Ocular Disease No Family History nothing known of Social History Tobacco Use - Smoking status: Former Smoker Types: Cigars - Smokeless tobacco: Never Used - Tobacco comment: quit 40 + years ago Substance Use Topics - Alcohol use: Yes Comment: rarely, 2-3 glasses red wine per month - Drug use: No PHYSICAL EXAM BP 110/60 Pulse 72 Wt 86.6 kg (191 lb) BMI 27.41 kg/m? General Appearance: well appearing, in no acute distress, al ert Lungs: lungs clear to auscultation. No wheezing, rhonchi, ra les Heart: RRR without murmur, gallop, or rubs. No ectopy BP CONTROLLED (<130/80) due on 1965 INFLUENZA(1) due on 02/25/2019 DIABETIC FOOT EXAM due on 06/06/2019 HBA1C due on 07/17/2019 COLORECTAL CANCER SCREENING,SEE MODIFIER due on 08/04/2019 ANNUAL PCP TEAM CHRONIC DISEASE VISIT due on 12/01/2019 URINE ALBUMIN:CREATININE RATIO due on 04/16/2020 LDL CHOLESTEROL due on 04/16/2020 HEMOGLOBIN/HEMATOCRIT due on 04/16/2020 DILATED RETINAL EXAM due on 05/29/2020 SERUM CREATININE due on 06/01/2020 DTAP,TDAP,TD(2 - Td) due on 01/13/2028 ABDOMINAL AORTIC ANEURYSM SCREENING Completed ADULT PREVNAR-13 Completed HEPATITIS C SCREENING Completed PNEUMOVAX AGE 65 AND OVER WITH 5YR LOOKBACK Completed ASSESSMENT/PLAN: 1. Essential hypertension - ICD9: 401.9, ICD10: I10 (primary diagnosis) - good control - Continue current medication(s) - Recommend home blood pressure monitoring, to bring results in on next visit - Recheck in 4 months, sooner should new symptoms or problem s arise. - Goal of BP <130/80 2. 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 - Continue current medications 3. CKD (chronic kidney disease) stage 3, GFR 30-59 ml/min (H CC) - ICD9: 585.3, ICD10: N18.3 stable 4. Need for vaccination - ICD9: V05.9, ICD10: Z23 - INFLUENZA SEASONAL HIGH DOSE AGE 65+ Prescription instructions reviewed with patient as applicabl e. Potential red flag symptoms discussed with the patient. Reviewed appro priate action plan to take if red flag symptoms occur. Patient agreeable t o treatment plan. ARTEI Arce on 2019-06-04 CNOV Office Visit (INTMWS) Normal 06-04-20 19 [place] SHIRIN Whipple SR. ([id number]) 1945 M [place] Date Time Provider Department ([id number]) 06/04/19 9:00 AM AMERICA MCGINNIS (TRANG) INTMWS During your visit today, we recorded the following informati on about you: Pulse Blood pressure Weight 72/minute 110/60 86.6 kg America Mcginnis APRN.CNP 06/04/2019 9:34 AM Signed CC: Patient presents with: Follow Up HPI Shirin West Sr. is a 74 year old male who prese [facility] today for above. Recently transferred care to new classroom teacher- Dr. Bauman. Echocar diogram and peripheral arterial studies completed as ordered by classroom teacher, patient has results with him today and were normal. Also seeing nephrolo gist, Lasix decreased to 40 mg daily. BP has been well controlled, home average 120's/60's. Checking blood sugars daily, average bet ween 110-120. Denies low blood sugars. Rn Recruitment is Dr. Cordon, had appointment last week. REVIEW OF SYSTEMS General: no fevers, no chills, no night sweats, no recurre nt infections, no change in appetite, no change in energy and no signifi cant changes in weight Respiratory: no cough, no wheezing, no shortness of breath, no hemoptysis Cardiovascular: no chest pain, no chest pressure, no palpita tions and no swelling PAST MEDICAL HISTORY Diagnosis Date - Background diabetic retinopathy(362.01) 09/18/2008 [facility]. - Cataract of left eye - Chronic kidney disease, unspecified - CKD (chronic kidney disease) stage 3, GFR 30-59 ml/min (HC C) 05/26/2017 - Coloboma of iris OD - Depressive disorder, not elsewhere classified - Erectile dysfunction assoc iated with type 2 diabetes mellitus (HCC) 07/09/2008 - Esophageal reflux - Essential hypertension, benign - Hyperplasia of prostate - Macular edema dme od - Other and unspecified hyperlipidemia - Other specified anemias - Other specified gastritis without mention of hemorrhage - Personal history of colonic polyps 08/04/2016 - Primary open angle glaucoma OU - Proliferative diabetic retinopathy(362.02) - Pseudophakia of right eye - Shoulder pain 09/25/2008 Right. - Tubular adenoma of colon 08/10/2016 - Type II or unspecified typ e diabetes mellitus with ophthalmic manifestations, uncontrolled(250.52) 09/18/2008 iddm - Unspecified asthma(493.90) - Vitreous hemorrhage of left eye (HCC) PAST SURGICAL HISTORY Procedure Laterality Date - AVASTIN (BEVACIZUMAB) 1.25MG INTRAVITREAL INJECTION OD (RI GHT EYE) Right 04/19/2018 LAST - COLONOS W/REM POLYP SNARE 08/04/2016 Repeat 07/2019 - COLONOSCOP W/ OR W/O [facility] SPEC Colonoscopy - COLONOSCOPY W/BX 07/25/13 Repeat due 2016 - EGD W/O OR W/BRUSH/WASH 2002 EGD - EYE SURGERY HX Right 05/02/2018 Pars plana vitrectomy, membrane peel, endolaser, and air fluid exchange right eye. - LAPAROSCOPIC CHOLEYCYSTECTOMY Oct.2002 Cholecystectomy, lap - PANRETINAL PHOTOCOAGULATION (PRP) OD (RIGHT EYE) Right 10/2014 LAST ; PRP (Panretinal Photocoagulation) OD - PANRETINAL PHOTOCOAGULATION (PRP) OS (LEFT EYE) Left 07/12 #2 ; PRP (Panretinal Photocoagulation) OS - PROSTATECTOMY SUPRAPUBIC SUBTOTAL for BPH - REMV CATARACT EXTRACAP,INSERT LENS 02/07/2007 Cataract Removal right - REMV CATARACT EXTRACAP,INSERT LENS Left 11/16/2016 Cataract Extraction with PC IOL OS - REPAIR ROTATOR CUFF,ACUTE 2008 Rotator cuff repair, Right - VITRECTOMY,MECHANICAL Left 11/16/2016 PPV/MP/EL/AFX OS ALLERGIES Cortisone; Zestril [Lisinopril] MEDICATIONS timolol maleate (TIMOPTIC) 0.5 % ophthalmic solution U se 1 Drop in both eyes twice daily. Use at 6 AM and 6 PM latanoprost (XALATAN) 0.005 % ophthalmic solution Use 1 Drop in both eyes daily at bedtime. insulin glargine (LANTUS SOLOSTAR U-100 INSULIN) 100 unit/mL (3 mL) inpn Take ten (10) units in the AM and fifteen (15) units at bed time Insulin Broad Top, Disposable, (1ST TIER UNIFINE P ENTIPS) 31 gauge x 3/16 ndle Use as directed 4 times a day. Dx: E11.65 metFORMIN ER (GLUCOPHAGE XR) 500 mg 24 hr tablet Take 1 tablet by mouth daily with breakfast. losartan (COZAAR) 100 mg tablet TAKE 1 TABLET EVERY DAY BY OUT Blood Pressure Monitor (BLOOD PRESSURE KIT) kit Dx: Uncontrolled hypertension I10 NIFEdipine ER (PROCARDIA XL) 90 mg 24 hr tablet Take 1 tab let by mouth once daily. chlorthalidone (HYGROTON) 25 mg tablet Take 1 tablet by mout h once daily. furosemide (LASIX) 40 mg tablet Take 1 tablet by mouth twice daily. cholecalciferol (VITAMIN D) 1,000 unit tab table t Take 1 tablet by mouth once daily. pravastatin (PRAVACHOL) 80 mg tablet Take 1 tablet by mout h once daily. For cholesterol. glimepiride (AMARYL) 2 mg tablet Take 1 tablet b y mouth daily with breakfast. BD INSULIN PEN NEEDLE UF 31 gauge x 5/16 ndle 1 Applicator as directed. cyanocobalamin (VITAMIN B-12) 1,000 mcg tab Take 1 tablet by mouth once daily. blood sugar diagnostic (FREESTYLE LITE STRIPS) test strip Use as instructed tests 3 times a day. Dx: DMII aspirin(ECOTRIN LOW STRENGTH 81 MG TAB) Take one(1) tablet d aily. lancets(FREESTYLE LANCETS) Test 2 times daily, 250.02, non i nsulin perflutren lipid microspheres (DEFINITY) 1.1 mg/mL inj ection (to be provided with echo procedure) Inject 1.3 mL intravenously as directed . carvedilol (COREG) 25 mg tablet Take 1.5 tablets by mouth tw ice daily with meals. cloNIDine HCl (CATAPRES) 0.2 mg tablet Take 1 tablet by mout h twice daily. gabapentin (NEURONTIN) 100 m g capsule Take 2 capsules by mouth daily at bedtime for 180 days. linagliptin 5 mg tab Take 5 mg by mouth once daily. FAMILY HISTORY Problem Relation Age of Onset - Breast Cancer Mother at age 55 - COPD Father Black lung - Breast Cancer Sister at age 54 - Diabetes Brother - No Ocular Disease No Family History nothing known of Social History Tobacco Use - Smoking status: Former Smoker Types: Cigars - Smokeless tobacco: Never Used - Tobacco comment: quit 40 + years ago Substance Use Topics - Alcohol use: Yes Comment: rarely, 2-3 glasses red wine per month - Drug use: No PHYSICAL EXAM BP 110/60 Pulse 72 Wt 86.6 kg (191 lb) BMI 27.41 kg/m? General Appearance: well appearing, in no acute distress, al ert Lungs: lungs clear to auscultation. No wheezing, rhonchi, ra les Heart: RRR without murmur, gallop, or rubs. No ectopy BP CONTROLLED (<130/80) due on 1965 INFLUENZA(1) due on 02/25/2019 DIABETIC FOOT EXAM due on 06/06/2019 HBA1C due on 07/17/2019 COLORECTAL CANCER SCREENING,SEE MODIFIER due on 08/04/2019 ANNUAL PCP TEAM CHRONIC DISEASE VISIT due on 12/01/2019 URINE ALBUMIN:CREATININE RATIO due on 04/16/2020 LDL CHOLESTEROL due on 04/16/2020 HEMOGLOBIN/HEMATOCRIT due on 04/16/2020 DILATED RETINAL EXAM due on 05/29/2020 SERUM CREATININE due on 06/01/2020 DTAP,TDAP,TD(2 - Td) due on 01/13/2028 ABDOMINAL AORTIC ANEURYSM SCREENING Completed ADULT PREVNAR-13 Completed HEPATITIS C SCREENING Completed PNEUMOVAX AGE 65 AND OVER WITH 5YR LOOKBACK Completed ASSESSMENT/PLAN: 1. Essential hypertension - ICD9: 401.9, ICD10: I10 (primary diagnosis) - good control - Continue current medication(s) - Recommend home blood pressure monitoring, to b ring results in on next visit - Recheck in 4 months, sooner should new symptoms or problem s arise. - Goal of BP <130/80 2. 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 - Continue current medications 3. CKD (chronic kidney disease) stage 3, GFR 30-59 ml/min (HCC) - ICD9: 585.3, ICD10: N18.3 stable 4. Need for vaccination - ICD9: V05.9, ICD10: Z23 - INFLUENZA SEASONAL HIGH DOSE AGE 65+ Prescription instructions reviewed with patient as berto licable. Potential red flag symptoms discussed with the patient. Review ed appropriate action plan to take if red flag symptoms occur. Patient agreeable to treatm ent plan. ARTIE Arce APRN.CNP 06/04/2019 9:20 AM Addendum You are due for the Shingles vaccination, this i s covered by medicare at your local pharmacy Referring Provider: JESSE GLOVER [[id number]] Allergies As of Date: 06/04/2019 Noted Allergy Reaction CORTISONE 05/09/2009 14 - Other: See Comments Comments: [place] real hot, as if someone threw boiling water o n him ZESTRIL (LISINOPRIL) 01/29/2009 5 - Intolerance Comments: ARF, hypokalemia Date Reviewed: 06/04/2019 Reviewed by: Katelin Morales LPN - Fully Assessed Reason for Visit: Follow Up [171] Imm/Inj [58] Cmt: Flu Vaccine Reason For Visit History Recorded Primary Visit Diagnosis:Essential hypertension [I10] Other Visit Diagnoses:Type 2 diabetes mellitus with both eye s affected by proliferative retinopathy without macular edema, with long-term current use of insulin (HCC) [E11.3593, Z79.4] CKD (chronic kidney disease) stage 3, GFR 30-59 ml/min ([facility]) [N18.3] Need for vaccination [Z23] Order(s):furosemide (LASIX) 40 mg tabletTake 1 tablet by laura th once daily.Disp: Rfl: INFLUENZA SEASONAL HIGH DOSE AGE 65+ [[id number]] Order #: [id number] Prescriptions as of 06/04/2019 Sig: FUROSEMIDE 40 MG TABLET Take 1 tablet by mouth once d* TIMOLOL MALEATE 0.5 % EYE PA* Use 1 Drop in both eyes twice * LATANOPROST 0.005 % EYE DROPS Use 1 Drop in both eyes daily* INSULIN GLARGINE (U-100) 100 * Take ten (10) units in the AM * PEN NEEDLE, DIABETIC 31 GAUGE* Use as directed 4 times a day * METFORMIN ER 500 MG TABLET,EX* Take 1 tablet by mouth daily * LOSARTAN 100 MG TABLET TAKE 1 TABLET EVERY DAY BY MO* BLOOD PRESSURE MONITOR KIT Dx: Uncontrolled hypertension* NIFEDIPINE ER 90 MG TABLET,EX* Take 1 tablet by mouth once d * CHLORTHALIDONE 25 MG TABLET Take 1 tablet by mouth once d* CARVEDILOL 25 MG TABLET Take 1.5 tablets by mouth twi* CLONIDINE HCL 0.2 MG TABLET Take 1 tablet by mouth twice * CHOLECALCIFEROL (VITAMIN D3) * Take 1 tablet by mouth once d * PRAVASTATIN 80 MG TABLET Take 1 tablet by mouth once d* GLIMEPIRIDE 2 MG TABLET Take 1 tablet by mouth daily * BD ULTRA-FINE SHORT PEN NEEDL* 1 Applicator as directed. CYANOCOBALAMIN (VIT B-12) 1,0* Take 1 tablet by mouth once d * GABAPENTIN 100 MG CAPSULE Take 2 capsules by mouth trevin* BLOOD SUGAR DIAGNOSTIC STRIPS Use as instructed tests 3 myles* ECOTRIN LOW STRENGTH 81 MG TA* Take one(1) tablet daily. FREESTYLE LANCETS 28 GAUGE Test 2 times daily, 250.02, n* LINAGLIPTIN 5 MG TABLET Take 5 mg by mouth once daily. Problem List As Of Date 06/04/2019 Noted Resolved Asthma [J45.909] 07/07/2015 Anemia in stage 3 chronic kidney disease ([facility]) * Hypertension goal BP (blood pressure) < 140/90 * Hyperlipidemia [E78.5] Polyneuropathy in diabetes ([facility]) [E11.42] 07/27/2005 DIABETES MELLITUS TYPE II UNCONTR UNCOMPL [E11.*07/27/2005 0 08/09/2008 More... PROTEINURIA [R80.9] 08/11/2007 Erectile dysfunction associated with type 2 diaz*07/09/2008 Overweight [E66.3] 07/09/2008 Diabetes mellitus type 2, uncontrolled, with co*09/18/2008 Other specified gastritis without mention of he*09/18/2008 0 07/07/2015 BPH w/o urinary obs/LUTS [N40.0] 09/18/2008 09/08/2011 Background diabetic retinopathy(362.01) ([facility]) [*09/18/2008 0 06/30/2015 Shoulder pain [M25.519] 09/25/2008 03/09/2011 More... 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] 09/19/2018 Visual field loss [H53.40] 09/19/2018 Primary open angle glaucoma (POAG) of right eye*09/19/2018 Primary open angle glaucoma (POAG) of left eye,*01/09/2019 Secondary renal hyperparathyroidism (HCC) [N25.*04/18/2019 Hyperkalemia [E87.5] 04/18/2019 Type 2 diabetes mellitus with both eyes affecte*05/29/2019 Other instructions from your clinician: You are due for the Shingles vaccination, this is covered by medicare at your local pharmacy Prescriptions ordered this encounter Disp Refills Start End FUROSEMIDE 40 MG TABLET 06/04/2019 Class: Med Update Route: ORAL Sig: Take 1 tablet by mouth once daily. Medications Discontinued During This Encounter perflutren lipid microspheres (DEFIN* 1.3 * 0 10/09/201806/04 Class: In Office Route: INTRAVENOUS Sig: Inject 1.3 mL intravenously as directed. Disc: Course of therapy completed furosemide (LASIX) 40 mg tablet 30 t* 3 09/11/2018 06/04/2019 Route: ORAL Sig: Take 1 tablet by mouth twice daily. Disc: Reason for discontinue is not on file. Encounter Status:Closed by AMERICA MCGINNIS CLINICAL NURSE MANAGER on 06/04/19 vitamin d 25 hydroxy on 2019-06-01 Vitamin D 25 Hydroxy 39.1 31.0-80.0 ng/mL Normal [address] [place] [address] ([id number]) Comment: Result Comment: Classificati on of 25 [place] Vitamin D status: Insufficiency/Moderate Defic iency: < or = 30 ng/mL Sufficiency/Optimal Levels: 31 to 80 ng/mL Toxicity: > 100 ng/mL Test performed by chemilumin escent immunoassay. Performed By: #### VITD, RFP , WSR, HACRNA, PTHI, C4COMP, C3COMP ####[facility] [id number] [place] [phone] urinalysis with microscopic on 2019-06-01 Bilirubin, Urine Negative Negative Normal 06-01-2019 [facility] (21320) Comment: Performed By: #### UAWMIC ## ##[facility] [id number] [place], [place] [phone] Clarity (U) Clear Clear Normal 06-01-2019 [facility] (02182) Comment: Performed By: #### UAWMIC ## ##[facility] [place], [place] [phone] Color (U) Yellow Yellow Normal 06-01-2019 [facility] (65482) Comment: Performed By: #### UAWMIC ## ##[facility] [place], [place] [phone] Comments SEE COMMENT Normal 06-01-2019 [facility] (70048) Comment: Result Comment: N/A Performed By: #### UAWMIC ## ##[address] [phone] Glucose Ql (U) >=500 Negative Critically abnormal 06-01 [facility] (37667) Comment: Performed By: #### UAWMIC ## ##[place] [phone] Hemoglobin/Blood,Ur Negative Negative Normal 06-01-2019 [facility] (15890) Comment: Performed By: #### UAWMIC ## ##[address] [phone] Ketones Ql (U) Negative Negative Normal 06-01-2019 [facility] (54671) Comment: Performed By: #### UAWMIC ## ##[address] [phone]- [phone] Leukest 1+ Negative Critically abnormal 06-01-2019 [facility] (58642) Comment: Performed By: #### UAWMIC ## ##[address] [phone]- [phone] Nitrite Ql (U) Negative Negative Normal 06-01-2019 [facility] (53136) Comment: Performed By: #### UAWMIC ## ##[address] [phone] pH (Bld) 6.0 4.5-8.0 Normal 06-01-2019 [facility] (44677) Comment: Performed By: #### UAWMIC ## ##[address] [phone]- [phone] Protein (U) 30 Negative mg/dL Critically abnormal 06-01-20 19 [facility] [Mass/Vol] [place] (47204) Comment: Performed By: #### UAWMIC ## ##[facility] [place], [place] [phone] RBC (U) [#/Vol] 0-3 0-3 Normal 06-01-2019 [facility] (27746) Comment: Performed By: #### UAWMIC ## ##[facility] [place] [place] [phone] Specific [place], Ur 1.015 1.005-1.030 Normal 019 [facility] (41024) Comment: Performed By: #### UAWMIC ## ##[place] [address] [address] [phone] Urine Bj Comment SEE COMMENT Normal 06-01-2019 [facility] (21751) Comment: Result Comment: N/A Performed By: #### UAWMIC ## ##[place] [address] [address] [phone] Urobilinogen Qn (U) Normal Normal Normal 06-01-2019 [facility] (61829) Comment: Performed By: #### UAWMIC ## ##[place] [id number] [place] [phone] WBC (Bld) [#/Vol] 0-5 0-5 Normal 06-01-2019 [facility] (92272) Comment: Performed By: #### UAWMIC ## ##[facility] [place] [phone] sed rate westergren on 2019-06-01 Sed Rate Westergren 22 0-15 mm/hr High 06-01-2019 [facility] (59528) Comment: Performed By: #### VITD, RFP , WSR, HACRNA, PTHI, C4COMP, C3COMP ####[facility] [id number] [phone] renal function panel on 2019-06-01 Albumin [Mass/Vol] 4.4 3.9-4.9 g/dL Normal 06-01-2019 [facility] (31350) Comment: Performed By: #### VITD, RFP , WSR, HACRNA, PTHI, C4COMP, C3COMP ####[facility] [id number], [place] [phone] Anion gap [Moles/Vol] 14 9-18 mmol/L Normal 06-01-20 [facility] (36331) Comment: Performed By: #### VITD, RFP , WSR, HACRNA, PTHI, C4COMP, C3COMP ####[facility] [id number], [place] [phone] Calcium [Mass/Vol] 9.6 8.5-10.2 mg/dL Normal 06-01-2019 [facility] (55211) Comment: Performed By: #### VITD, RFP , WSR, HACRNA, PTHI, C4COMP, C3COMP ####[facility] [id number], [place] [phone] Chloride [Moles/Vol] 96 97-105 mmol/L Low [facility] (72300) Comment: Performed By: #### VITD, RFP , WSR, HACRNA, PTHI, C4COMP, C3COMP ####[facility] [id number], [place] [phone] CO2 [Moles/Vol] 23 22-30 mmol/L Normal 06-01-2019 [facility] (90291) Comment: Performed By: #### VITD, RFP , WSR, HACRNA, PTHI, C4COMP, C3COMP ####[facility] [id number], [place] [phone] Creatinine [Mass/Vol] 1.89 0.73-1.22 mg/dL High 06-01-20 [facility] (74064) Comment: Performed By: #### VITD, RFP , WSR, HACRNA, PTHI, C4COMP, C3COMP ####[facility] [id number], [place] [phone] eGFR- Amer. 43 Normal 06-01-2019 [facility] (15285) Comment: Performed By: #### VITD, RFP , WSR, HACRNA, PTHI, C4COMP, C3COMP ####[facility] [id number], [place] [phone] GFR/1.73 sq M predicted among 35 . Normal 06-01-2019 [facility] non-blacks MDRD (S/P/Bld) [Vol (39275) rate/Area] Comment: Result Comment: eGFR (Estima violet GFR) Units of measure: mL/min/1.73 meters squared eGFR is derived from the ree xpressed MDRD Study equation using the following parameters: serum creatinine, age, gender and race. The creatinine assay has been calibrated to be traceable to IDMS. An eGFR <60 mL/min/1.73m2 fo r >3 months is consistent with chronic kidney disease. Refer to KDOQI guidelines for clinical interpretation. In patients with unstable re nal function, e.g. those with acute kidney injury, the eGFR may not accurately reflect actual GFR. Performed By: #### VITD, RFP , WSR, HACRNA, PTHI, C4COMP, C3COMP ####[facility] [id number] [place], [place] [phone] Glucose [Mass/Vol] 318 74-99 mg/dL High 06-01-2019 [facility] (17335) Comment: Result Comment: The [place] [employer] (ADA) provides guidance for cutoff values for fasting glucose and random glucose. The ADA defines fasting as no caloric intake for at least 8 hours. Fas ting plasma glucose results between 100 to 125 mg/dL indicate increased risk for diabetes (prediabetes). Fasting plasma glucose resul ts greater than or equal to 126 mg/dL meet the criteria for diagnosis of diabetes. In the absence of unequivocal hyperglycemia, results should be confirmed by repeat testing. In a patient with classic s ymptoms of hyperglycemia or hyperglycemic crisis, random plasma glucose results greater than or equal to 200 mg/dL meet the criteria for diagnosis of diabetes. Reference: Standards of [facility] Care in Diabetes 2016, [place] [employer]. Diabetes Care. 2016.39(Suppl 1). Performed By: #### VITD, RFP , WSR, HACRNA, PTHI, C4COMP, C3COMP ####[facility] [id number], [place] [phone] Phosphate [Mass/Vol] 3.6 2.7-4.8 mg/dL Normal 9 [facility] (23282) Comment: Performed By: #### VITD, RFP , WSR, HACRNA, PTHI, C4COMP, C3COMP ####[facility] [id number], [place] [phone] Potassium [Moles/Vol] 4.8 3.7-5.1 mmol/L Normal 06-01-20 19 [facility] (86680) Comment: Performed By: #### VITD, RFP , WSR, HACRNA, PTHI, C4COMP, C3COMP ####[facility] [id number], [place] [phone] Sodium [Moles/Vol] 133 136-144 mmol/L Low 06-01-2019 [facility] (74919) Comment: Performed By: #### VITD, RFP , WSR, HACRNA, PTHI, C4COMP, C3COMP ####[facility] [id number], [place] [phone] Urea nitrogen [Mass/Vol] 42 9-24 mg/dL High 06-01 [facility] (75265) Comment: Performed By: #### VITD, RFP , WSR, HACRNA, PTHI, C4COMP, C3COMP ####[facility] [id number] [place] [phone] pth, intact on 2018 PTH, Intact 63 15-65 pg/mL Normal 06-01-2019 [facility] (75964) Comment: Performed By: #### VITD, RFP , WSR, HACRNA, PTHI, C4COMP, C3COMP ####[facility] [id number] [phone] hepatitis acute rna on 2019-06-01 HBsAg Negative Negative Normal 06-01-2019 [facility] (41130) Comment: Performed By: #### VITD, RFP , WSR, HACRNA, PTHI, C4COMP, C3COMP ####[facility] [id number] [phone] Hep B Core Ab, IgM Negative Negative Normal 06-01-2019 [facility] (40461) Comment: Performed By: #### VITD, RFP , WSR, HACRNA, PTHI, C4COMP, C3COMP ####[facility] [id number] [phone] Hepatitis A Ab IgM Negative Negative Normal 06-01-2019 [facility] (46874) Comment: Performed By: #### VITD, RFP , WSR, HACRNA, PTHI, C4COMP, C3COMP ####[facility] [id number] [phone] Hepatitis C RNA HCV RNA not detected by Normal 06-01-2019 [facility] (34342) Comment: Result Comment: Reference Ra nge: Negative for HCV RNA The Linear Range of this ass ay is 15 IU/mL to 100,000,000 IU/mL. Performed By: #### VITD, RFP , WSR, HACRNA, PTHI, C4COMP, C3COMP ####[facility] [id number] [phone] c4 complement on 14-06-06 C4 Complement 35 13-46 mg/dL Normal 06-01-2019 [facility] (69607) Comment: Performed By: #### VITD, RFP , WSR, HACRNA, PTHI, C4COMP, C3COMP ####[facility] [id number] [place], [place] [phone] c3 complement on 14-06-06 C3 Complement 122 86-166 mg/dL Normal 06-01-2019 [facility] (09833) Comment: Performed By: #### VITD, RFP , WSR, HACRNA, PTHI, C4COMP, C3COMP ####[facility] [id number], [place] [phone] progress on 2019-05 PROGRESS HNO ID: [id number] Normal 05-29-2019 [facility] Author: Trudy Wilson [place] ([id number]) Service: ? Author Type: Physician Type: Progress Notes Filed: 05/29/2019 4:31 PM Note Text: ASSESSMENT/PLAN: 1. Primary open angle glaucoma (POAG) of right eye, severe s tage - ICD9: 365.11, 365.73, ICD10: H40.1113 (primary diagnosis) 2. Primary open angle glaucoma (POAG) of left eye, mild stag e - ICD9: 365.11, 365.71, ICD10: H40.1121 The nature of glaucoma was discussed, with emphasis on the n on-reversible damage to the optic nerve. Treatment options and the importa nce of regular examinations and testing were covered in detail, as well as the consequences of non-compliance. The patient was given the op portunity to ask questions. Continue: Current Ophthalmic Meds timolol maleate (TIMOPTIC) 0.5 % ophthalmic solution (Taking ) Use 1 Drop in both eyes twice daily. Use at 6 AM and 6 PM latanoprost (XALATAN) 0.005 % ophthalmic solution (Taking) U se 1 Drop in both eyes daily at bedtime. 3. 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 Trudy Wilson MD I have confirmed and edited as necessary the relevant ophtha [facility] history, review of systems, surgical history, and ophthalmological ex amination findings as obtained by the ophthalmic technical staff. I hand ve seen and examined Shirin West Sr.. I have discussed the examination findings, diagnosis, and treatment options with Shirin West Sr. and/o r his family. I have also reviewed and agree with the assessment and plan as stated above and agree with all its relevant components. I gave the patient the opportunity to ask questions about the findings, diagnosis, and treatment options. obsolete on 2019-04 OBSOLETE Refill (INTMWS) Normal 05-01-2019 [facility] SHIRIN Whipple SR. ([id number]) 1945 [facility] Date Time Provider Department ([id number]) 05/01/19 JESSE GLOVER INTMWS During your visit today, we recorded the following informati on about you: Master Palacios RN 05/01/2019 1:49 PM Signed Patient reports the pended Rx's were sent to [facility] [place], and they should have been sent to [facility]. Cancelled Rx's at [facility]. Spoke with Keanu. Allergies As of Date: 05/01/2019 Noted Allergy Reaction CORTISONE 05/09/2009 14 - Other: See Comments Comments: [place] real hot, as if someone threw boiling water o n him ZESTRIL (LISINOPRIL) 01/29/2009 5 - Intolerance Comments: ARF, hypokalemia Date Reviewed: 04/18/2019 Reviewed by: Teressa Marrero - Fully Assessed Reason for Visit: Refill Request [94] Visit Diagnosis:Uncontrolled type 2 diabetes amadou litus with complication, with long-term current use of insulin ([facility]) [E11.8, E11.65, Z79.4 ] Order(s):insulin glargine (LANTUS SOLOSTAR U-100 INSUL IN) 100 unit/mL (3 mL) inpnTake ten (10) units in the AM and fifteen (15) units at bed timeDisp: 5 PenRfl: 5 Insulin Broad Top, Disposable, (1ST TIER UNIFINE PENTIPS) 31 g auge x 09/09 ndleUse as directed 4 times a day. Dx: E11.65Disp: 400 EachRfl: 3 Prescriptions as of 05/01/2019 Sig: INSULIN GLARGINE (U-100) 100 * Take ten (10) units in the AM * PEN NEEDLE, DIABETIC 31 GAUGE* Use as directed 4 times a day * TIMOLOL MALEATE 0.5 % EYE PA* Use 1 Drop in both eyes twice * LATANOPROST 0.005 % EYE DROPS Use 1 Drop in both eyes daily* METFORMIN ER 500 MG TABLET,EX* Take 1 tablet by mouth daily * LOSARTAN 100 MG TABLET TAKE 1 TABLET EVERY DAY BY MO* PERFLUTREN LIPID MICROSPHERES* Inject 1.3 mL intravenously a * BLOOD PRESSURE MONITOR KIT Dx: Uncontrolled hypertension* NIFEDIPINE ER 90 MG TABLET,EX* Take 1 tablet by mouth once d * CHLORTHALIDONE 25 MG TABLET Take 1 tablet by mouth once d* CARVEDILOL 25 MG TABLET Take 1.5 tablets by mouth twi* CLONIDINE HCL 0.2 MG TABLET Take 1 tablet by mouth twice * FUROSEMIDE 40 MG TABLET Take 1 tablet by mouth twice * CHOLECALCIFEROL (VITAMIN D3) * Take 1 tablet by mouth once d * PRAVASTATIN 80 MG TABLET Take 1 tablet by mouth once d* GLIMEPIRIDE 2 MG TABLET Take 1 tablet by mouth daily * BD ULTRA-FINE SHORT PEN NEEDL* 1 Applicator as directed. CYANOCOBALAMIN (VIT B-12) 1,0* Take 1 tablet by mouth once d * GABAPENTIN 100 MG CAPSULE Take 2 capsules by mouth trevin* BLOOD SUGAR DIAGNOSTIC STRIPS Use as instructed tests 3 myles* LINAGLIPTIN 5 MG TABLET Take 5 mg by mouth once daily. ECOTRIN LOW STRENGTH 81 MG TA* Take one(1) tablet daily. FREESTYLE LANCETS 28 GAUGE Test 2 times daily, 250.02, n* Problem List As Of Date 05/01/2019 Noted Resolved Asthma [J45.909] 07/07/2015 Anemia in stage 3 chronic kidney disease (HCC) * Hypertension goal BP (blood pressure) < 140/90 * Hyperlipidemia [E78.5] Polyneuropathy in diabetes (HCC) [E11.42] INVALID FOR* DIABETES MELLITUS TYPE II UNCONTR UNCOMPL [E11.*INVALID FOR* 08/09/2008 More... PROTEINURIA [R80.9] INVALID FOR* Erectile dysfunction associated with type 2 diaz*INVALID FOR* Overweight [E66.3] INVALID FOR* Diabetes mellitus type 2, uncontrolled, with co*INVALID FOR* Other specified gastritis without mention of he*INVALID FOR* 07/07/2015 BPH w/o urinary obs/LUTS [N40.0] INVALID FOR*09/08/2011 Background diabetic retinopathy(362.01) ([facility]) [*INVALID FOR* 06/30/2015 Shoulder pain [M25.519] INVALID FOR*03/09/2011 More... 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 Dx: E11.65 Medications Discontinued During This Encounter insulin glargine (LANTUS SOLOSTAR U-* 5 Pen 5 04/25/201905/01/2019 Sig: Take ten (10) units in the AM and fifteen (15) units at bed time Disc: Reason for discontinue is not on file. Insulin Broad Top, Disposable, (1ST TI* 400 * 3 04/25/201905/01/2019 Sig: Use as directed 4 times a day. Dx: E11.65 Disc: Reason for discontinue is not on file. Encounter Status:Closed by AMERICA MCGINNIS CNP on 05/01/19 obsolete on 2019-03 OBSOLETE Refill (OPHTSA) Normal 04-25-2019 [facility] SHIRIN Whipple SR. ([id number]) 1945 [facility] Date Time Provider Department ([id number]) 04/25/19 TRUDY WILSON OPHTSA During your visit today, we recorded the following informati on about you: Niya Calix [facility] 04/25/2019 9:55 AM Signed Patient has been identified by name and date of : Yes Pending Prescriptions Disp Refills TIMOLOL MALEATE 0.5 % EYE DROPS Sig: Use 1 Drop in both eyes twice daily. Use at 6 AM and 6 PM CLARKE: No LATANOPROST 0.005 % EYE DROPS Sig: Use 1 Drop in both eyes daily at bedtime. CALRKE: No RX INSTRUCTIONS: Patient aware RX will be sent to pharmacy. No need to notify patient. Niya Calix Pss Allergies As of Date: 04/25/2019 Noted Allergy Reaction CORTISONE 05/09/2009 14 - Other: See Comments Comments: [place] real hot, as if someone threw boiling water o n him ZESTRIL (LISINOPRIL) 01/29/2009 5 - Intolerance Comments: ARF, hypokalemia Date Reviewed: 04/18/2019 Reviewed by: Teressa Marrero - Fully Assessed Reason for Visit: Refill Request [94] Order(s):timolol maleate (TIMOPTIC) 0.5 % ophthalmic solutio nUse 1 Drop in both eyes twice daily. Use at 6 AM and 6 PMDisp: 1 BottleRfl : 1 latanoprost (XALATAN) 0.005 % ophthalmic solutionUse 1 Drop in both eyes daily at bedtime.Disp: 1 BottleRfl: 1 Prescriptions as of 04/25/2019 Sig: TIMOLOL MALEATE 0.5 % EYE PA* Use 1 Drop in both eyes twice * LATANOPROST 0.005 % EYE DROPS Use 1 Drop in both eyes daily* METFORMIN ER 500 MG TABLET,EX* Take 1 tablet by mouth daily * LOSARTAN 100 MG TABLET TAKE 1 TABLET EVERY DAY BY MO* PERFLUTREN LIPID MICROSPHERES* Inject 1.3 mL intravenously a * BLOOD PRESSURE MONITOR KIT Dx: Uncontrolled hypertension* INSULIN GLARGINE (U-100) 100 * Take ten (10) units in the AM * NIFEDIPINE ER 90 MG TABLET,EX* Take 1 tablet by mouth once d * CHLORTHALIDONE 25 MG TABLET Take 1 tablet by mouth once d* CARVEDILOL 25 MG TABLET Take 1.5 tablets by mouth twi* CLONIDINE HCL 0.2 MG TABLET Take 1 tablet by mouth twice * FUROSEMIDE 40 MG TABLET Take 1 tablet by mouth twice * CHOLECALCIFEROL (VITAMIN D3) * Take 1 tablet by mouth once d * PRAVASTATIN 80 MG TABLET Take 1 tablet by mouth once d* GLIMEPIRIDE 2 MG TABLET Take 1 tablet by mouth daily * PEN NEEDLE, DIABETIC 31 GAUGE* Use as directed 4 times a day * BD ULTRA-FINE SHORT PEN NEEDL* 1 Applicator as directed. CYANOCOBALAMIN (VIT B-12) 1,0* Take 1 tablet by mouth once d * GABAPENTIN 100 MG CAPSULE Take 2 capsules by mouth trevin* BLOOD SUGAR DIAGNOSTIC STRIPS Use as instructed tests 3 myles* LINAGLIPTIN 5 MG TABLET Take 5 mg by mouth once daily. ECOTRIN LOW STRENGTH 81 MG TA* Take one(1) tablet daily. FREESTYLE LANCETS 28 GAUGE Test 2 times daily, 250.02, n* Problem List As Of Date 04/25/2019 Noted Resolved Asthma [J45.909] 07/07/2015 Anemia in stage 3 chronic kidney disease ([facility]) * Hypertension goal BP (blood pressure) < 140/90 * Hyperlipidemia [E78.5] Polyneuropathy in diabetes (HCC) [E11.42] INVALID FOR* DIABETES MELLITUS TYPE II UNCONTR UNCOMPL [E11.*INVALID FOR* 08/09/2008 More... PROTEINURIA [R80.9] INVALID FOR* Erectile dysfunction associated with type 2 diaz*INVALID FOR* Overweight [E66.3] INVALID FOR* Diabetes mellitus type 2, uncontrolled, with co*INVALID FOR* Other specified gastritis without mention of he*INVALID FOR* 07/07/2015 BPH w/o urinary obs/LUTS [N40.0] INVALID FOR*09/08/2011 Background diabetic retinopathy(362.01) ([facility]) [*INVALID FOR* 06/30/2015 Shoulder pain [M25.519] INVALID FOR*03/09/2011 More... 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 Use at 6 AM and 6 PM LATANOPROST 0.005 % EYE DROPS 1 Haroldo* 1 04/25/2019 Route: BOTH EYES Sig: Use 1 Drop in both eyes daily at bedtime. Medications Discontinued During This Encounter timolol maleate (TIMOPTIC) 0.5 % oph* 01/09/2019 04/25/2019 Class: Med Update Route: BOTH EYES Sig: Use 1 Drop in both eyes twice daily. Use at 6 AM and 6 PM Disc: Reason for discontinue is not on file. latanoprost (XALATAN) 0.005 % ophtha* 03/14/2018 04/25/2019 Class: Historical Med Route: BOTH EYES Sig: Use 1 Drop in both eyes daily at bedtime. Disc: Reason for discontinue is not on file. Encounter Status:Closed by TRUDY WILSON MD on 04/25/19 OBSOLETE Refill (INTMWS) Normal 04-25-2019 [facility] SHIRIN Whipple SR. ([id number]) 1945 [facility] Date Time Provider Department ([id number]) 04/25/19 JESSE GLOVER INTMWS During your visit today, we recorded the following informati on about you: Johana Fajardo 04/25/2019 9:35 AM Signed Patient has been identified by name and date of : Yes Pending Prescriptions Disp Refills INSULIN GLARGINE (U-100) 100 UNIT/ML (3 ML) SUBCUTANEOUS PEN 5 Pen 5 Sig: Take ten (10) units in the AM and fifteen (15) units at bed time CLARKE: No PEN NEEDLE, DIABETIC 31 GAUGE X /16 400 Each 3 Sig: Use as directed 4 times a day. Dx: E11.65 CLARKE: No RX INSTRUCTIONS: Patient aware RX escripted to mail away pharmacy. No n eed to notify patient. Johana Hawkins LPN 04/25/2019 10:42 AM Signed Patient has been identified by name and date of : Yes Patient phones for refill(s): Pending Prescriptions Disp Refills INSULIN GLARGINE (U-100) 100 UNIT/ML (3 ML) SUBCUTANEOUS PEN 5 Pen 5 Sig: Take ten (10) units in the AM and fifteen (15) units at bed time CLARKE: No PEN NEEDLE, DIABETIC 31 GAUGE X /16 400 Each 3 Sig: Use as directed 4 times a day. Dx: E11.65 CLARKE: No Date of last office visit in primary care: 11/30/2018 4 month follow-up scheduled w/PCP: 05/25/2019 Roma Hawkins LPN Allergies As of Date: 04/25/2019 Noted Allergy Reaction CORTISONE 05/09/2009 14 - Other: See Comments Comments: [place] real hot, as if someone threw boiling water o n him ZESTRIL (LISINOPRIL) 01/29/2009 5 - Intolerance Comments: ARF, hypokalemia Date Reviewed: 04/18/2019 Reviewed by: Teressa Marrero - Fully Assessed Reason for Visit: Refill Request [94] Visit Diagnosis:Uncontrolled type 2 diabetes amadou litus with complication, with long-term current use of insulin (HCC) [E11.8, E11.65, Z79.4 ] Order(s):insulin glargine (LANTUS SOLOSTAR U-100 INSUL IN) 100 unit/mL (3 mL) inpnTake ten (10) units in the AM and fifteen (15) units at bed timeDisp: 5 PenRfl: 5 Insulin Broad Top, Disposable, (1ST TIER UNIFINE PENTIPS) 31 g auge x 09/09 ndleUse as directed 4 times a day. Dx: E11.65Disp: 400 EachRfl: 3 Prescriptions as of 04/25/2019 Sig: INSULIN GLARGINE (U-100) 100 * Take ten (10) units in the AM * PEN NEEDLE, DIABETIC 31 GAUGE* Use as directed 4 times a day * METFORMIN ER 500 MG TABLET,EX* Take 1 tablet by mouth daily * X TIMOLOL MALEATE 0.5 % EYE PA* Use 1 Drop in both eyes twi ce* LOSARTAN 100 MG TABLET TAKE 1 TABLET EVERY DAY BY MO* PERFLUTREN LIPID MICROSPHERES* Inject 1.3 mL intravenously a * BLOOD PRESSURE MONITOR KIT Dx: Uncontrolled hypertension* NIFEDIPINE ER 90 MG TABLET,EX* Take 1 tablet by mouth once d * CHLORTHALIDONE 25 MG TABLET Take 1 tablet by mouth once d* CARVEDILOL 25 MG TABLET Take 1.5 tablets by mouth twi* CLONIDINE HCL 0.2 MG TABLET Take 1 tablet by mouth twice * FUROSEMIDE 40 MG TABLET Take 1 tablet by mouth twice * CHOLECALCIFEROL (VITAMIN D3) * Take 1 tablet by mouth once d * PRAVASTATIN 80 MG TABLET Take 1 tablet by mouth once d* GLIMEPIRIDE 2 MG TABLET Take 1 tablet by mouth daily * BD ULTRA-FINE SHORT PEN NEEDL* 1 Applicator as directed. X LATANOPROST 0.005 % EYE DROPS Use 1 Drop in both eyes trevin y* CYANOCOBALAMIN (VIT B-12) 1,0* Take 1 tablet by mouth once d * GABAPENTIN 100 MG CAPSULE Take 2 capsules by mouth trevin* BLOOD SUGAR DIAGNOSTIC STRIPS Use as instructed tests 3 myles* LINAGLIPTIN 5 MG TABLET Take 5 mg by mouth once daily. ECOTRIN LOW STRENGTH 81 MG TA* Take one(1) tablet daily. FREESTYLE LANCETS 28 GAUGE Test 2 times daily, 250.02, n* Problem List As Of Date 04/25/2019 Noted Resolved Asthma [J45.909] 07/07/2015 Anemia in stage 3 chronic kidney disease ([facility]) * Hypertension goal BP (blood pressure) < 140/90 * Hyperlipidemia [E78.5] Polyneuropathy in diabetes ([facility]) [E11.42] INVALID FOR* DIABETES MELLITUS TYPE II UNCONTR UNCOMPL [E11.*INVALID FOR* 08/09/2008 More... PROTEINURIA [R80.9] INVALID FOR* Erectile dysfunction associated with type 2 diaz*INVALID FOR* Overweight [E66.3] INVALID FOR* Diabetes mellitus type 2, uncontrolled, with co*INVALID FOR* Other specified gastritis without mention of he*INVALID FOR* 07/07/2015 BPH w/o urinary obs/LUTS [N40.0] INVALID FOR*09/08/2011 Background diabetic retinopathy(362.01) ([facility]) [*INVALID FOR* 06/30/2015 Shoulder pain [M25.519] INVALID FOR*03/09/2011 More... 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 Dx: E11.65 Medications Discontinued During This Encounter insulin glargine (LANTUS SOLOSTAR U-* 5 Pen 5 09/12/201803/29 Sig: Take ten (10) units in the AM and fifteen (15) units at bed time Disc: Reason for discontinue is not on file. Insulin Broad Top, Disposable, (1ST TI* 400 * 3 04/26/2018 Sig: Use as directed 4 times a day. Dx: E11.65 Disc: Reason for discontinue is not on file. Encounter Status:Closed by AMERICA MCGINNIS CLINICAL NURSE MANAGER on 04/25/19 urinalysis with microscopic on 2019-04-18 Bilirubin, Urine Negative Negative Normal 04-18-2019 Cl [facility] ([id number]) Comment: Performed By: #### Van WISE #### [facility] [address] [place] [id number] Cast SEE COMMENT 0 Critically abnormal 04-18-20 19 [facility] ([id number]) Comment: Result Comment: 4-10 Hyaline Cast Performed By: #### Van WISE AWMIC #### [facility] [address] [place] [address] Clarity (U) Clear Clear Normal 04-18-2019 [facility] ([id number]) Comment: Performed By: #### Van WISE AWMIC #### [facility] [address] [place] [address] Color (U) Yellow Yellow Normal 04-18-2019 [facility] ([id number]) Comment: Performed By: #### Van WISE AWMIC #### [facility] [address] [place] [address] Comments SEE COMMENT Normal 04-18-2019 [facility] ([id number]) Comment: Result Comment: N/A Performed By: #### Van WISE AWMIC #### [facility] [address] [place] [address] Epithelial cells LM.HPF SEE COMMENT Normal 03-28 [facility] (Urine sed) [#/Area] [place] ([id number]) Comment: Result Comment: Few Squamous Epithelial Cells Few Non-Squamous Epithelial Cell s Performed By: #### Van WISE AWMIC #### [facility] [address] [place] [phone] Glucose Ql (U) >=500 Negative Critically abnormal 04-18 [facility] ([id number]) Comment: Performed By: #### Van WISE AWMIC #### [facility] [address] [place] [address] Hemoglobin/Blood,Ur Negative Negative Normal 04-18-2019 [facility] ([id number]) Comment: Performed By: #### Van WISE AWMIC #### [facility] [address] [place] [address] Ketones Ql (U) Negative Negative Normal 04-18-2019 [facility] ([id number]) Comment: Performed By: #### BILLIE U AWMIC #### [facility] [address] [place], [place] [address] Leukest Negative Negative Normal 04-18-2019 [facility] ([id number]) Comment: Performed By: #### BILLIE U AWMIC #### [facility] [address] [place] [place] [address] Nitrite Ql (U) Negative Negative Normal 04-18-2019 [facility] ([id number]) Comment: Performed By: #### BILLIE U AWMIC #### [facility] [address] [address] pH (Bld) 5.0 4.5-8.0 Normal 04-18-2019 [facility] ([id number]) Comment: Performed By: #### BILLIE U AWMIC #### [facility] [address] [place] [address] Protein (U) 100 Negative mg/dL Critically abnormal 04-18-20 19 [facility] [Mass/Vol] [place] ([id number]) Comment: Performed By: #### BILLIE U AWMIC #### [facility] [address] [place] [address] RBC (U) [#/Vol] 0-3 0-3 Normal 04-18-2019 [facility] ([id number]) Comment: Performed By: #### BILLIE U AWMIC #### [facility] [address] [place] [address] Specific [place], Ur 1.017 1.005-1.030 Normal 019 [facility] ([id number]) Comment: Performed By: #### BILLIE U AWMIC #### [facility] [address] [place], [place] [address] Urine Bj Comment SEE COMMENT Normal 04-18-2019 [facility] ([id number]) Comment: Result Comment: Urine receiv ed in non-preservative tube. Interpret results with caution. To ensure opti mal and accurate results, transfer urine to the BD Vacutainer Plus urine pre servative tube. Performed By: #### Van WISE AWMIC #### [facility] [address] [place], [place] [address] Urobilinogen Qn (U) Normal Normal Normal 04-18-2019 [facility] ([id number]) Comment: Performed By: #### Van WISE AWMIC #### [facility] [address] [place], [place] [address] WBC (Bld) [#/Vol] 0-5 0-5 Normal 04-18-2019 [facility] ([id number]) Comment: Performed By: #### Van WISE AWMIC #### [facility] [address] [place], [place] [address] protein/creatinine ratio on 2019-04-18 Creatinine,Urine,Ran 175.4 20-300 mg/dL Normal 201 9 [facility] ([id number]) Comment: Performed By: #### Van WISE AWMIC #### [facility] [address] [place], [place] [address] Protein (U) [Mass/Vol] 77 0-20 mg/dL High 04-18-2 019 [facility] ([id number]) Comment: Performed By: #### Van WISE AWMIC #### [facility] [address] [place], [place] [address] Protein/Creatinine Ratio 0.4 <0.2 High 04-18 [facility] ([id number]) Comment: Performed By: #### Van WISE AWMIC #### [facility] [address] [place], [place] [address] progress on 2019-03 PROGRESS HNO ID: [id number] Normal 04-18-2019 [place] Author: Teressa Marrero [facility] Service: ? [place] Author Type: Physician ([id number]) Type: Progress Notes Filed: 04/18/2019 10:38 AM Note Text: [facility] NEPHROLOGY AND HYPERTENSION [facility] NEPHROLOGY: Name:Shirin West Sr. The patient, Shirin West Sr., identity was verified by name and MRN. CHIEF COMPLAINT: F/U for DM2 with diabetic CKD stage 3 w/HTN Initial visit with me today-patient was followed by [facility] neph rology at [facility]-last seen by Dr. Ponce and Dr. Armando Raymond on 11/13 Subjective/interval history: Shirin West Sr. is a 74 year o ld male with moderate CKD in the setting of type II DM and HTN -Cr has be en abnormal since 2014. Baseline serum cr ranges from 1.7-1.9 mg/dl. He has nonnephrotic range proteinuria-on losartan Other medical problems include hyperlipidemia, BPH, erectile dysfunction, DJD, diabetic retinopathy and neuropathy. Kidney ultrasound done on 03/28/2017 showed right kidney 11.2 cm; left kidney 12 cm-no stones or hydronephrosis Renal artery duplex done in 2016 did not show renal artery s tenosis Patient denies CP, SOB, orthopnea or PND. Denies progressive leg edema No nausea, emesis,abdominal pain or diarrhea No dysuria, gross hematuria or new flank pain. No fever or chills. No dizziness,HAND or focal numbness or weakness. Wt is stable Current Outpatient Medications: metFORMIN ER (GLUCOPHAGE XR) 500 mg 24 hr tablet Take 1 tabl et by mouth daily with breakfast. timolol maleate (TIMOPTIC) 0.5 % ophthalmic solution Use 1 D rop in both eyes twice daily. Use at 6 AM and 6 PM losartan (COZAAR) 100 mg tablet TAKE 1 TABLET EVERY DAY BY M OUTH perflutren lipid microspheres (DEFINITY) 1.1 mg/mL injection (to be provided with echo procedure) Inject 1.3 mL intravenously as directed. Blood Pressure Monitor (BLOOD PRESSURE KIT) kit Dx: Uncontro lled hypertension I10 insulin glargine (LANTUS SOLOSTAR U-100 INSULIN) 100 unit/mL (3 mL) inpn Take ten (10) units in the AM and fifteen (15) units at bed time NIFEdipine ER (PROCARDIA XL) 90 mg 24 hr tablet Take 1 table t by mouth once daily. chlorthalidone (HYGROTON) 25 mg tablet Take 1 tablet by mout h once daily. carvedilol (COREG) 25 mg tablet Take 1.5 tablets by mouth tw ice daily with meals. cloNIDine HCl (CATAPRES) 0.2 mg tablet Take 1 tablet by mout h twice daily. furosemide (LASIX) 40 mg tablet Take 1 tablet by mouth twice daily. cholecalciferol (VITAMIN D) 1,000 unit tab tablet Take 1 tab let by mouth once daily. pravastatin (PRAVACHOL) 80 mg tablet Take 1 tablet by mouth once daily. For cholesterol. glimepiride (AMARYL) 2 mg tablet Take 1 tablet by mouth trevin y with breakfast. Insulin Broad Top, Disposable, (1ST TIER UNIFINE PENTIPS) 31 g auge x 3/16 ndle Use as directed 4 times a day. Dx: E11.65 BD INSULIN PEN NEEDLE UF 31 gauge x /16 ndle 1 Applicator as directed. latanoprost (XALATAN) 0.005 % ophthalmic solution Use 1 Drop in both eyes daily at bedtime. cyanocobalamin (VITAMIN B-12) 1,000 mcg tab Take 1 tablet by mouth once daily. gabapentin (NEURONTIN) 100 mg capsule Take 2 capsules by laura th daily at bedtime for 180 days. blood sugar diagnostic (FREESTYLE LITE STRIPS) test strip Us e as instructed tests 3 times a day. Dx: DMII linagliptin 5 mg tab Take 5 mg by mouth once daily. aspirin(ECOTRIN LOW STRENGTH 81 MG TAB) Take one(1) tablet d aily. lancets(FREESTYLE LANCETS) Test 2 times daily, 250.02, non i nsulin No current facility-administered medications for this visit. PAST MEDICAL HISTORY Diagnosis Date - Background diabetic retinopathy(362.01) 09/18/2008 [facility] eye. - Cataract of left eye - Chronic kidney disease, unspecified - CKD (chronic kidney disease) stage 3, GFR 30-59 ml/min (HC C) 05/26/2017 - Coloboma of iris OD - Depressive disorder, not elsewhere classified - Erectile dysfunction associated with type 2 diabetes isai garcia ([facility]) 07/09/2008 - Esophageal reflux - Essential hypertension, benign - Hyperplasia of prostate - Macular edema dme od - Other and unspecified hyperlipidemia - Other specified anemias - Other specified gastritis without mention of hemorrhage - Personal history of colonic polyps 08/04/2016 - Primary open angle glaucoma OU - Proliferative diabetic retinopathy(362.02) - Pseudophakia of right eye - Shoulder pain 09/25/2008 Right. - Tubular adenoma of colon 08/10/2016 - Type II or unspecified type diabetes mellitus with ophthal bj manifestations, uncontrolled(250.52) 09/18/2008 [facility] - Unspecified asthma(493.90) - Vitreous hemorrhage of left eye ([facility]) Social History Tobacco Use - Smoking status: Former Smoker Types: Cigars - Smokeless tobacco: Never Used - Tobacco comment: quit 40 + years ago Substance Use Topics - Alcohol use: Yes Comment: rarely, 2-3 glasses red wine per month - Drug use: No FAMILY HISTORY Problem Relation Age of Onset - Breast Cancer Mother at age 55 - COPD Father Black lung - Breast Cancer Sister at age 54 - Diabetes Brother - No Ocular Disease No Family History nothing known of REVIEW OF SYSTEMS: Pertinent positives and negatives in HPI. All other systems reviewed and negative PHYSICAL EXAM: Last 3 Encounter BP Readings: Date: BP: 11/30/2018 156/84 11/13/2018 162/85 10/09/2018 175/82 Last 3 Encounter Wt Readings: Date: Wt: 11/30/2018 88.5 kg (195 lb) 11/13/2018 89.4 kg (197 lb 3.2 oz) 10/09/2018 88.5 kg (195 lb) O: BP 161/80 Pulse 72 Temp 36.7 ?C (98 ?F) (Oral) Ht 1 77.8 cm (5' 10) Wt 86.2 kg (190 lb) BMI 27.26 kg/m? GENERAL: alert, well appearing, in no acute distress. HEENT:EOMI intact.Nonicteric sclera NECK: supple;No carotid bruit, JVD or lymphadenopathy LUNGS: clear to auscultation;Normal respiratory effort CVS:RRR; S1 S2 normal. NO S3 OR S4. No murmurs ABD: soft, nontender; organomegaly could not be excluded : B S positive EXT: No leg edema ; no cyanosis. SKIN: no generalized skin rash or ulcers. NEURO:Alert;No focal deficit on limited exam PSYCHIATRY: Appropriate mood and affect. LABS: Following labs were reviewed in today's visit. CKD LAB FLOWSHEET Latest Ref Rng AND Units 04/27/2018 04/27/20 18 05/03/2018 09/07/2018 11/13/2018 04/16/2019 EGFR- - 47 48 50 43 46 46 EGFR-ALL OTHER RACES . 39 39 41 36 38 38 CREATININE 0.73 - 1.22 mg/dL 1.75(H) 1.72(H) 1.66(H) 1.88(H) 1.76(H) 1.78(H) BUN 9 - 24 mg/dL 26(H) 26(H) 25(H) 36(H) 26(H) 33(H) SODIUM 136 - 144 mmol/L 136 135(L) 137 134(L) 135(L) 138 POTASSIUM 3.7 - 5.1 mmol/L 5.5(H) 5.6(H) 4.3 4.9 4.7 5.3(H) CHLORIDE 97 - 105 mmol/L 101 101 103 99 102 102 CO2 22 - 30 mmol/L 22 21(L) 19(L) 22 23 22 GLUCOSE 74 - 99 mg/dL 275(H) 276(H) 371(H) 353(H) 173(H) 239 (H) CALCIUM 8.5 - 10.2 mg/dL 9.3 9.4 9.7 9.3 9.4 9.3 PHOSPHORUS 2.7 - 4.8 mg/dL - - 2.9 4.1 3.6 3.3 ALBUMIN 3.9 - 4.9 g/dL 4.3 4.2 4.3 4.2 4.4 4.4 ALT 10 - 54 U/L 7(L) 8(L) - - - - WBC 3.70 - 11.00 k/uL 4.29 - - - - 3.86 HEMOGLOBIN 13.0 - 17.0 g/dL 10.7(L) - - - - 11.4(L) PLATELET COUNT 150 - 400 k/uL 281 - - - - 327 IRON 41 - 186 ug/dL - - - - 92 - TRANSFERRIN SATURATION 15 - 57 % - - - - 29 - FERRITIN 30.3 - 565.7 ng/mL - - - - 122.3 - TIBC 232 - 386 ug/dL - - - - 312 - VITAMIN D 25 HYDROXY 31.0 - 80.0 ng/mL 16.0(L) - - - 29.9(L) - PTH, INTACT 15 - 65 pg/mL 48 - - - - - PROTEIN, URINE RANDOM 0 - 20 mg/dL - - - - 36(H) - CREATININE, UR RANDOM (UCRR) 20 - 300 mg/dL 276.1 - - - 131. 6 290.4 PROTEIN/CREATININE RATIO <0.2 - - - - 0.3(H) - CHOLESTEROL, TOTAL <200 mg/dL 155 - - - - 147 TRIGLYCERIDE <150 mg/dL 147 - - - - 108 HDL CHOLESTEROL >39 mg/dL 48 - - - - 52 LDL CHOLESTEROL <100 mg/dL 78 - - - - 73 URIC ACID 4.0 - 8.1 mg/dL 5.9 - - - - - Some recent data might be hidden ] ASSESSMENT: 1. Type 2 DM with CKD stage 3 and hypertension (HCC) (primar y encounter diagnosis): CKD in the setting of type II DM and HTN. Serum creatinine h as been abnormal since 2014. Baseline serum creatinine has ranged between 1.7-1.9 mg/dL Last creatinine level from 04/16/19 was within baseline. Suboptimal BP control-we will adjust medications with monito ring to achieve target of 130/80 or less Suboptimal diabetic control-last hemoglobin A1c from 9 was higher than target. Discussed need to manage risk factors and avoid NSAIDs, IV c ontrast and other nephrotoxins 2. Persistent proteinuria: Mild proteinuria in the setting o f long-standing DM. He most likely has underlying diabetic nephropathy-negative paraproteinemia workup. Patient is alre osman on losartan Discussed role of strict BP control and low-protein diet in preventing progression. 3. Anemia in stage 3 chronic kidney disease (HCC): Denies an y overt losses. Hemoglobin was stable on last check; will continue t o check periodically to assess need for iron/ANALISA. 4. Hyperkalemia: In the setting of CKD and losartan-discusse d low potassium diet 5. Secondary renal hyperparathyroidism: Noted to have low vi tamin D-received supplements. We will update labs to assess need f or Rocaltrol/phosphate binders. 6. Hyperlipidemia, unspecified hyperlipidemia type:On statin s-Recommend LDL goal of <100 to prevent progression of CKD. PLAN: Avoid Advil ,Ibuprofen(Motrin),Aleve(Naproxen),Meloxicam and other pain/arthritis medications called NSAIDS. You can take Tylen ol if necessary. Avoid IV contrast Follow low salt , low potassium and low protein diet. Take Vitamin D3 2000 units daily Written instructions for BP meds given: He is to take losartan, Coreg and chlorthalidone in a.m.-Las ix and clonidine 0.2 mg at 2 PM-Coreg, clonidine and nifedipine at bedtime Check BP at home everyday at 10 am and 7pm for next two week s and bring this record along with your BP machine to nurse-clinic visit . Hold BP meds for SBP less than 100 and call advice nurse BP check in 2 weeks Office Visit on 04/18/19 - UA DIP, URINE (POC) Do today: - PROTEIN CREATININE RATIO - URINALYSIS WITH MICROSCOPIC - - BMP,C3,C4,HEP profile and ESR in 2 weeks - Do in 4 months: - RENAL FUNCTION PANEL - VITAMIN D 25 HYDROXY - PTH INTACT BLD FOLLOW-UP: In 4 months with Madiha Hamm SIGNATURE:Teressa Marrero MD Staff Data Capture Clerk DATE:April 18, 2019 TIME: 10:35 AM cnov on 2019-04-18 CNOV Office Visit (NEPHST) Normal 04-18-20 [place] SHIRIN Whipple SR. ([id number]) 1945 [facility] Date Time Provider Department ([id number]) 04/18/19 9:25 AM TERESSA MARRERO NEPHST During your visit today, we recorded the following informati on about you: Temperature Pulse Blood pressure Weight 98 degrees 72/minute 161/80 86.2 kg Height 1.778 m Teressa Marrero MD 04/18/2019 10:38 AM Signed [facility] NEPHROLOGY AND HYPERTENSION [facility] NEPHROLOGY: Name:Shirin West Sr. The patient, Shirin West Sr., identity was verified by name and MRN. CHIEF COMPLAINT: F/U for DM2 with diabetic CKD stage 3 w/HTN Initial visit with me today-patient was followed by [facility] neph rology at [facility]-last seen by Dr. Ponce and Dr. Armando Raymond on 11/13 Subjective/interval history: Shirin West Sr. is a 74 year o ld male with moderate CKD in the setting of type II DM and HT N -Cr has been abnormal since 2014. Baseline serum cr ranges from 1.7-1.9 mg/dl. He has nonnephrotic range proteinuria-on losartan Other medical problems include hyperlipi demia, BPH, erectile dysfunction, DJD, diabetic retinopathy and neuropathy. Kidney ultrasound done on showed right kidney 11.2 cm; left kidney 12 cm-no stones or hydronephrosis Renal artery duplex done in 2017 did not show renal artery s tenosis Patient denies CP, SOB, orthopnea or PND. Denies progressive leg edema No nausea, emesis,abdominal pain or diarrhea No dysuria, gross hematuria or new flank pain. No fever or chills. No dizziness,HAND or focal numbness or weakness. Wt is stable Current Outpatient Medications: metFORMIN ER (GLUCOPHAGE XR) 500 mg 24 hr tablet Take 1 tablet by mouth daily with breakfast. timolol maleate (TIMOPTIC) 0.5 % ophthalmic solution U se 1 Drop in both eyes twice daily. Use at 6 AM and 6 PM losartan (COZAAR) 100 mg tablet TAKE 1 TABLET EVERY DAY BY M OUTH perflutren lipid microspheres (DEFINITY) 1.1 mg/mL inj ection (to be provided with echo procedure) Inject 1.3 mL intravenously as directed . Blood Pressure Monitor (BLOOD PRESSURE KIT) kit Dx: Uncontrolled hypertension I10 insulin glargine (LANTUS SOLOSTAR U-100 INSULIN) 100 unit/mL (3 mL) inpn Take ten (10) units in the AM and fifteen (15) units at bed time NIFEdipine ER (PROCARDIA XL) 90 mg 24 hr tablet Take 1 tab let by mouth once daily. chlorthalidone (HYGROTON) 25 mg tablet Take 1 tablet by mout h once daily. carvedilol (COREG) 25 mg tablet Take 1.5 tablets by mouth tw ice daily with meals. cloNIDine HCl (CATAPRES) 0.2 mg tablet Take 1 tablet by mout h twice daily. furosemide (LASIX) 40 mg tablet Take 1 tablet by mouth twice daily. cholecalciferol (VITAMIN D) 1,000 unit tab table t Take 1 tablet by mouth once daily. pravastatin (PRAVACHOL) 80 mg tablet Take 1 tablet by mout h once daily. For cholesterol. glimepiride (AMARYL) 2 mg tablet Take 1 tablet b y mouth daily with breakfast. Insulin Broad Top, Disposable, (1ST TIER UNIFINE P ENTIPS) 31 gauge x 3/16 ndle Use as directed 4 times a day. Dx: E11.65 BD INSULIN PEN NEEDLE UF 31 gauge x 5/16 ndle 1 Applicator as directed. latanoprost (XALATAN) 0.005 % ophthalmic solution Use 1 Drop in both eyes daily at bedtime. cyanocobalamin (VITAMIN B-12) 1,000 mcg tab Take 1 tablet by mouth once daily. gabapentin (NEURONTIN) 100 m g capsule Take 2 capsules by mouth daily at bedtime for 180 days. blood sugar diagnostic (FREESTYLE LITE STRIPS) test strip Use as instructed tests 3 times a day. Dx: DMII linagliptin 5 mg tab Take 5 mg by mouth once daily. aspirin(ECOTRIN LOW STRENGTH 81 MG TAB) Take one(1) tablet d aily. lancets(FREESTYLE LANCETS) Test 2 times daily, 250.02, non i nsulin No current facility-administered medications for this visit. PAST MEDICAL HISTORY Diagnosis Date - Background diabetic retinopathy(362.01) 09/18/2008 [facility] eye. - Cataract of left eye - Chronic kidney disease, unspecified - CKD (chronic kidney disease) stage 3, GFR 30-59 ml/min (HC C) 05/26/2017 - Coloboma of iris OD - Depressive disorder, not elsewhere classified - Erectile dysfunction assoc iated with type 2 diabetes mellitus (HCC) 07/09/2008 - Esophageal reflux - Essential hypertension, benign - Hyperplasia of prostate - Macular edema dme od - Other and unspecified hyperlipidemia - Other specified anemias - Other specified gastritis without mention of hemorrhage - Personal history of colonic polyps 08/04/2016 - Primary open angle glaucoma OU - Proliferative diabetic retinopathy(362.02) - Pseudophakia of right eye - Shoulder pain 09/25/2008 Right. - Tubular adenoma of colon 08/10/2016 - Type II or unspecified typ e diabetes mellitus with ophthalmic manifestations, uncontrolled(250.52) 09/18/2008 [facility] - Unspecified asthma(493.90) - Vitreous hemorrhage of left eye (HCC) Social History Tobacco Use - Smoking status: Former Smoker Types: Cigars - Smokeless tobacco: Never Used - Tobacco comment: quit 40 + years ago Substance Use Topics - Alcohol use: Yes Comment: rarely, 2-3 glasses red wine per month - Drug use: No FAMILY HISTORY Problem Relation Age of Onset - Breast Cancer Mother at age 55 - COPD Father Black lung - Breast Cancer Sister at age 54 - Diabetes Brother - No Ocular Disease No Family History nothing known of REVIEW OF SYSTEMS: Pertinent positives and negatives in HPI. All other systems reviewed and negative PHYSICAL EXAM: Last 3 Encounter BP Readings: Date: BP: 11/30/2018 156/84 11/13/2018 162/85 10/09/2018 175/82 Last 3 Encounter Wt Readings: Date: Wt: 11/30/2018 88.5 kg (195 lb) 11/13/2018 89.4 kg (197 lb 3.2 oz) 10/09/2018 88.5 kg (195 lb) O: BP 161/80 Pulse 72 Temp 36.7 ?C (98 ?F) (Oral) Ht 177.8 cm (5' 10) Wt 86.2 kg (190 lb) BMI 27.26 kg/m? GENERAL: alert, well appearing, in no acute distress. HEENT:EOMI intact.Nonicteric sclera NECK: supple;No carotid bruit, JVD or lymphadenopathy LUNGS: clear to auscultation;Normal respiratory effort CVS:RRR; S1 S2 normal. NO S3 OR S4. No murmurs ABD: soft, nontender; organomegaly could not be excluded : B S positive EXT: No leg edema ; no cyanosis. SKIN: no generalized skin rash or ulcers. NEURO:Alert;No focal deficit on limited exam PSYCHIATRY: Appropriate mood and affect. LABS: Following labs were reviewed in today's visit. CKD LAB FLOWSHEET Latest Ref Rng AND Units 04/27/2018 04/27/20 18 05/03/2018 09/07/2018 11/13/2018 04/16/2019 EGFR- - 47 48 50 43 46 46 EGFR-ALL OTHER RACES . 39 39 41 36 38 38 CREATININE 0.73 - 1.22 mg/dL 1.75(H) 1.72(H) 1.66(H) 1 .88(H) 1.76(H) 1.78(H) BUN 9 - 24 mg/dL 26(H) 26(H) 25(H) 36(H) 26(H) 33(H) SODIUM 136 - 144 mmol/L 136 135(L) 137 134(L) 135(L) 138 POTASSIUM 3.7 - 5.1 mmol/L 5.5(H) 5.6(H) 4.3 4.9 4.7 5.3(H) CHLORIDE 97 - 105 mmol/L 101 101 103 99 102 102 CO2 22 - 30 mmol/L 22 21(L) 19(L) 22 23 22 GLUCOSE 74 - 99 mg/dL 275(H) 276(H) 371(H) 353(H) 173(H) 239 (H) CALCIUM 8.5 - 10.2 mg/dL 9.3 9.4 9.7 9.3 9.4 9.3 PHOSPHORUS 2.7 - 4.8 mg/dL - - 2.9 4.1 3.6 3.3 ALBUMIN 3.9 - 4.9 g/dL 4.3 4.2 4.3 4.2 4.4 4.4 ALT 10 - 54 U/L 7(L) 8(L) - - - - WBC 3.70 - 11.00 k/uL 4.29 - - - - 3.86 HEMOGLOBIN 13.0 - 17.0 g/dL 10.7(L) - - - - 11.4(L) PLATELET COUNT 150 - 400 k/uL 281 - - - - 327 IRON 41 - 186 ug/dL - - - - 92 - TRANSFERRIN SATURATION 15 - 57 % - - - - 29 - FERRITIN 30.3 - 565.7 ng/mL - - - - 122.3 - TIBC 232 - 386 ug/dL - - - - 312 - VITAMIN D 25 HYDROXY 31.0 - 80.0 ng/mL 16.0(L) - - - 29.9(L) - PTH, INTACT 15 - 65 pg/mL 48 - - - - - PROTEIN, URINE RANDOM 0 - 20 mg/dL - - - - 36(H) - CREATININE, UR RANDOM (UCRR) 20 - 300 mg/dL 276.1 - - - 131. 6 290.4 PROTEIN/CREATININE RATIO <0.2 - - - - 0.3(H) - CHOLESTEROL, TOTAL <200 mg/dL 155 - - - - 147 TRIGLYCERIDE <150 mg/dL 147 - - - - 108 HDL CHOLESTEROL >39 mg/dL 48 - - - - 52 LDL CHOLESTEROL <100 mg/dL 78 - - - - 73 URIC ACID 4.0 - 8.1 mg/dL 5.9 - - - - - Some recent data might be hidden ] ASSESSMENT: 1. Type 2 DM with CKD stage 3 and hypertension (HCC) (primar y encounter diagnosis): CKD in the setting of type II DM and HTN. Serum creati nine has been abnormal since 2014. Baseline serum creatinine has ranged between 1.7-1.9 mg/dL Last creatinine level from 04/16/19 was within baseline. Suboptimal BP control-we will adjust medications with eladio douglas to achieve target of 130/80 or less Suboptimal diabetic control-last hemoglobin A1c from 04/16/19 was higher than target. Discussed need to manage risk factors and avoid NSAIDs, IV contrast and other nephrotoxins 2. Persistent proteinuria: Mild proteinuria in the setting of long-standing DM. He most likely has under lying diabetic nephropathy-negative paraproteinemia workup. Patient is already on losartan Discussed role of strict BP control and low-protein diet in preventing progression. 3. Anemia in stage 3 chronic kidney disease (HCC): Denies any overt losses. Hemoglobin was stable on last check; will continue to chec k periodically to assess need for iron/ANALISA. 4. Hyperkalemia: In the setting of CKD and losartan-discus sed low potassium diet 5. Secondary renal hyperparathyroidism: Noted to have low vitamin D-received supplements. We will update labs to assess need for Rocaltro l/phosphate binders. 6. Hyperlipidemia, unspecified hyperlipidemia type:On stat ins-Recommend LDL goal of <100 to prevent progression of CKD. PLAN: Avoid Advil ,Ibuprofen(Motrin),Aleve(Naproxen),Meloxicam and other pain/arthritis medications called NSAIDS. You can take Tylenol if necessary. Avoid IV contrast Follow low salt , low potassium and low protein diet. Take Vitamin D3 2000 units daily Written instructions for BP meds given: He is to take losartan, Coreg and chlorthalidone in a. m.-Lasix and clonidine 0.2 mg at 2 PM-Coreg, clonidine and nifedipine at bedtime Check BP at home everyday at 10 am and 7pm for next tw o weeks and bring this record along with your BP machine to nurse-clinic visit. Hold BP meds for SBP less than 100 and call advice nurse BP check in 2 weeks Office Visit on 04/18/19 - UA DIP, URINE (POC) Do today: - PROTEIN CREATININE RATIO - URINALYSIS WITH MICROSCOPIC - - BMP,C3,C4,HEP profile and ESR in 2 weeks - Do in 4 months: - RENAL FUNCTION PANEL - VITAMIN D 25 HYDROXY - PTH INTACT BLD FOLLOW-UP: In 4 months with Madiha Hamm SIGNATURE:Teressa Marrero MD Staff Data Capture Clerk DATE:April 18, 2019 TIME: 10:35 AM Teressa Marrero MD 04/18/2019 10:35 AM Addendum Avoid Advil ,Ibuprofen(Motrin),Aleve(Naproxen),Meloxicam and other pain/arthritis medications called NSAIDS. You can take Tylenol if necessary. Avoid intravenous contrast with imaging studies if possible. If this is needed, please have the ordering provider contact nephrology Follow low salt and low potassium diet. Take Vitamin D3 2000 units daily Written instructions for BP meds given He is to take losartan, Coreg and chlorthalidone in a. m.-Lasix and clonidine 0.2 mg at 2 PM-Coreg, clonidine and nifedipine at bedtime Check BP at home everyday at 10 am and 7pm for next tw o weeks and bring this record along with your BP machine to nurse-clinic visit. Hold BP meds for SBP less than 100 and call advice nurse BP check in 2 weeks Have blood work done in 2 weeks and 4 months . Follow up with Dr Marrero in 4 months. Please have you lab work done one week prior to your appoint ment. Please bring a complete list of your medications , the dosage and times taken- to every visit. We want to know that ALL of your concerns/needs releva nt to this visit- were met today and that we have hopefully exceeded your expectati ons. If not-please let us know how we can improve our service to you by calling [phone] You may be receiving a survey regarding your care today. If you do, please take a few minutes to fill it out and send it back. It would be greatly appreciated. 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 #:[id number] RENAL FUNCTION PANEL [SQRFP] Order #: [id number] FUTURE PTH INTACT BLD [SQPTHI] Order #: [id number] FUTURE PROTEIN CREATININE RATIO [SQPRATIO] Order #: [id number] FUTU RE URINALYSIS WITH MICROSCOPIC [SQUAWMIC] Order #: [id number] F UTURE URIC ACID BLOOD [SQURIC] Order #: [id number] FUTURE HEMOGLOBIN (HGB) [SQHGB] Order #: [id number] FUTURE HEMATOCRIT (HCT) [SQHCT] Order #: [id number] FUTURE RENAL FUNCTION PANEL [SQRFP] Order #: [id number] FUTURE VITAMIN D 25 HYDROXY [SQVITD] Order #: [id number] FUTURE PTH INTACT BLD [SQPTHI] Order #: [id number] FUTURE URINALYSIS WITH MICROSCOPIC [SQUAWMIC] Order #: [id number] F UTURE PROTEIN CREATININE RATIO [SQPRATIO] Order #: [id number] C3 COMPLEMENT BLD [[id number]] Order #: [id number] FUTURE C4 COMPLEMENT BLD [LEO8MQBJ] Order #: [id number] FUTURE HEP ACUTE PANEL/RNA [SQHACRNA] Order #: [id number] FUTURE SED RATE WESTERGREN [SQWSR] Order #: [id number] FUTURE Prescriptions as of 04/18/2019 Sig: METFORMIN ER 500 MG TABLET,EX* Take 1 tablet by mouth daily * TIMOLOL MALEATE 0.5 % EYE PA* Use 1 Drop in both eyes twice * LOSARTAN 100 MG TABLET TAKE 1 TABLET EVERY DAY BY MO* PERFLUTREN LIPID MICROSPHERES* Inject 1.3 mL intravenously a * BLOOD PRESSURE MONITOR KIT Dx: Uncontrolled hypertension* INSULIN GLARGINE (U-100) 100 * Take ten (10) units in the AM * NIFEDIPINE ER 90 MG TABLET,EX* Take 1 tablet by mouth once d * CHLORTHALIDONE 25 MG TABLET Take 1 tablet by mouth once d* CARVEDILOL 25 MG TABLET Take 1.5 tablets by mouth twi* CLONIDINE HCL 0.2 MG TABLET Take 1 tablet by mouth twice * FUROSEMIDE 40 MG TABLET Take 1 tablet by mouth twice * CHOLECALCIFEROL (VITAMIN D3) * Take 1 tablet by mouth once d * PRAVASTATIN 80 MG TABLET Take 1 tablet by mouth once d* GLIMEPIRIDE 2 MG TABLET Take 1 tablet by mouth daily * PEN NEEDLE, DIABETIC 31 GAUGE* Use as directed 4 times a day * BD ULTRA-FINE SHORT PEN NEEDL* 1 Applicator as directed. LATANOPROST 0.005 % EYE DROPS Use 1 Drop in both eyes daily* CYANOCOBALAMIN (VIT B-12) 1,0* Take 1 tablet by mouth once d * GABAPENTIN 100 MG CAPSULE Take 2 capsules by mouth trevin* BLOOD SUGAR DIAGNOSTIC STRIPS Use as instructed tests 3 myles* LINAGLIPTIN 5 MG TABLET Take 5 mg by mouth once daily. ECOTRIN LOW STRENGTH 81 MG TA* Take one(1) tablet daily. FREESTYLE LANCETS 28 GAUGE Test 2 times daily, 250.02, n* Problem List As Of Date 04/18/2019 Noted Resolved Asthma [J45.909] 07/07/2015 Anemia in stage 3 chronic kidney disease (HCC) * Hypertension goal BP (blood pressure) < 140/90 * Hyperlipidemia [E78.5] Polyneuropathy in diabetes (HCC) [E11.42] INVALID FOR* DIABETES MELLITUS TYPE II UNCONTR UNCOMPL [E11.*INVALID FOR* 08/09/2008 More... PROTEINURIA [R80.9] INVALID FOR* Erectile dysfunction associated with type 2 diaz*INVALID FOR* Overweight [E66.3] INVALID FOR* Diabetes mellitus type 2, uncontrolled, with co*INVALID FOR* Other specified gastritis without mention of he*INVALID FOR* 07/07/2015 BPH w/o urinary obs/LUTS [N40.0] INVALID FOR*09/08/2011 Background diabetic retinopathy(362.01) ([facility]) [*INVALID FOR* 06/30/2015 Shoulder pain [M25.519] INVALID FOR*03/09/2011 More... 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 You can take Tylen ol if necessary. Avoid intravenous contrast with imaging studies if possible. If this is needed, please have the ordering provider contact nephrology Follow low salt and low potassium diet. Take Vitamin D3 2000 units daily Written instructions for BP meds given He is to take losartan, Coreg and chlorthalidone in a.m.-Las ix and clonidine 0.2 mg at 2 PM-Coreg, clonidine and nifedipine at bedtime Check BP at home everyday at 10 am and 7pm for next two week s and bring this record along with your BP machine to nurse-clinic visit . Hold BP meds for SBP less than 100 and call advice nurse BP check in 2 weeks Have blood work done in 2 weeks and 4 months . Follow up with Dr Marrero in 4 months. Please have you lab work done one week prior to your appoint ment. Please bring a complete list of your medications, the dosage and times taken- to every visit. We want to know that ALL of your concerns/needs relevant to this visit- were met today and that we have hopefully exceeded your expe ctations. If not-please let us know how we can improve our service to you by calling [phone] You may be receiving a survey regarding your care today. If you do, please take a few minutes to fill it out and send it back. I t would be greatly appreciated. Disposition: Return in about 4 months (around 08/19/2019). Follow-up and Disposition History Recorded Encounter Status:Closed by TERESSA MARRERO on 04/18/19 renal function panel on 2019-04-16 Albumin [Mass/Vol] 4.4 3.9-4.9 g/dL Normal 04-16-2019 [facility] ([id number]) Comment: Performed By: #### RFP ####C [facility] [id number] [place], [place] [phone] Anion gap [Moles/Vol] 14 9-18 mmol/L Normal 04-16-20 [facility] ([id number]) Comment: Performed By: #### RFP ####C [facility] [id number] [place], [place] [phone] Calcium [Mass/Vol] 9.3 8.5-10.2 mg/dL Normal 04-16-2019 [facility] ([id number]) Comment: Performed By: #### RFP ####C [facility] [id number] [place], [place] [phone] Chloride [Moles/Vol] 102 97-105 mmol/L Normal 9 [facility] ([id number]) Comment: Performed By: #### RFP ####C [facility] [place], [place] [phone] CO2 [Moles/Vol] 22 22-30 mmol/L Normal 04-16-2019 [facility] ([id number]) Comment: Performed By: #### RFP ####C [address] [phone] Creatinine [Mass/Vol] 1.78 0.73-1.22 mg/dL High 04-16-20 19 [facility] ([id number]) Comment: Performed By: #### RFP ####C [facility] [place] [address] [phone] eGFR- Amer. 46 Normal 04-16-2019 [facility] ([id number]) Comment: Performed By: #### RFP ####C [address] [phone] GFR/1.73 sq M predicted among 38 . Normal 04-16-2019 [facility] non-blacks MDRD (S/P/Bld) [Vol (08195) rate/Area] Comment: Result Comment: eGFR (Estima violet GFR) Units of measure: mL/min/1.73 meters squared eGFR is derived from the ree xpressed MDRD Study equation using the following parameters: serum creatinine, age, gender and race. The creatinine assay has been calibrated to be traceable to [employer]. An eGFR <60 mL/min/1.73m2 fo r >3 months is consistent with chronic kidney disease. Refer to KDOQI guidelines for clinical interpretation. In patients with unstable re nal function, e.g. those with acute kidney injury, the eGFR may not accurately reflect actual GFR. Performed By: #### RFP ####C [facility] [place], [place] [phone] Glucose [Mass/Vol] 239 74-99 mg/dL High 04-16-2019 [facility] ([id number]) Comment: Result Comment: The [place] [employer] (ADA) provides guidance for cutoff values for fasting glucose and random glucose. The ADA defines fasting as no caloric intake for at least 8 hours. Fas ting plasma glucose results between 100 to 125 mg/dL indicate increased risk for diabetes (prediabetes). Fasting plasma glucose resul ts greater than or equal to 126 mg/dL meet the criteria for diagnosis of diabetes. In the absence of unequivocal hyperglycemia, results should be confirmed by repeat testing. In a patient with classic s ymptoms of hyperglycemia or hyperglycemic crisis, random plasma glucose results greater than or equal to 200 mg/dL meet the criteria for diagnosis of diabetes. Reference: Standards of [facility] Care in Diabetes 2016, [place] [employer]. Diabetes Care. 2016.39(Suppl 1). Performed By: #### RFP ####C [facility] [place] [address] [phone] Phosphate [Mass/Vol] 3.3 2.7-4.8 mg/dL Normal 9 [facility] ([id number]) Comment: Performed By: #### RFP ####C [address] [phone] Potassium [Moles/Vol] 5.3 3.7-5.1 mmol/L High 04-16-20 19 [facility] ([id number]) Comment: Performed By: #### RFP ####C [facility] [place], [place] [id number] [phone] Sodium [Moles/Vol] 138 136-144 mmol/L Normal 04-16-2019 [facility] (99477) Comment: Performed By: #### RFP ####C [facility] [place] [address] [phone] Urea nitrogen [Mass/Vol] 33 9-24 mg/dL High 04-16 [facility] ([id number]) Comment: Performed By: #### RFP ####C [facility] [place] [address] [phone] lipid panel, basic on 2019-04-16 Cholesterol [Mass/Vol] 147 <200 mg/dL Normal 04-16- 019 [facility] ([id number]) Comment: Result Comment: <200 mg/dL, Desirable 200-239 mg/dL, Borderline hi gh >239 mg/dL, High Performed By: #### LIPB, HBA 1C ####[facility] [place], [place] [phone] Cholesterol in HDL 52 >39 mg/dL Normal 04-16-2019 [facility] [Mass/Vol] ([id number]) Comment: Result Comment: 40-59 mg/dL, Acceptable >59 mg/dL, High: Negative ri sk factor for coronary heart disease <40 mg/dL, Low: Positive ris k factor for coronary heart disease Performed By: #### LIPB, HBA 1C ####[address] [phone] Cholesterol in LDL 73 <100 mg/dL Normal 04-16-2019 [facility] [Mass/Vol] [place] ([id number]) Comment: Result Comment: <100 mg/dL, Optimal 100-129 mg/dL, Near optimal/ above optimal 130-159 mg/dL, Borderline hi gh 160-189 mg/dL, High >189 mg/dL, Very high Secondary prevention optimal LDL Cholesterol levels are recommended to be < 70 mg/dL Performed By: #### LIPB, HBA 1C ####[place] [id number] [place], [place] [phone] Fasting Time 12 hrs Normal 04-16-2019 [facility] ([id number]) Comment: Performed By: #### LIPB, HBA 1C ####[address] [phone] LDL:HDL Ratio 1.40 <2.54 Normal 04-16-2019 [facility] (65547) Comment: Result Comment: Reference: 1. National Cholesterol Educ ation Program ATP III Guideline At-A-Glance Quick Desk Reference: National Heart, Lung, and Blood [place]. National Institutes of Health. 2001: NIH Publication No. 01-3305. 2. An International Atherosc lerosis Society position paper: global recommendations for the management of dyslipidemia: executive summary, Atherosclerosis. 2014: 232(2):410-413. Performed By: #### LIPB, HBA 1C ####[facility], [place] [phone]- [phone] Non HDL Cholesterol 95 <130 mg/dL Normal 04-16-2019 [facility] ([id number]) Comment: Result Comment: <130 mg/dL, Optimal 130-159 mg/dL, Near optimal/ above optimal 160-189 mg/dL, Borderline hi gh 190-219 mg/dL, High >219 mg/dL, Very high Secondary prevention optimal non HDL Cholesterol levels are recommended to be < 100 mg/dL Performed By: #### LIPB, HBA 1C ####[place] [address] [address] [place] [phone] TC:HDL Ratio 2.83 <5.10 Normal 04-16-2019 [facility] ([id number]) Comment: Performed By: #### LIPB, HBA 1C ####[place] [address] [address] [place] [phone] Triglyceride [Mass/Vol] 108 <150 mg/dL Normal 2018 [facility] (07294) Comment: Result Comment: <150 mg/dL, Normal 150-199 mg/dL, Borderline hi gh 200-499 mg/dL, High >499 mg/dL, Very high Performed By: #### LIPB, HBA 1C ####[place] [address] [address] [place] [phone] VLDL Cholesterol 22 <30 mg/dL Normal 04-16-2019 [facility] ([id number]) Comment: Performed By: #### LIPB, HBA 1C ####[place] [address] [address], [place] [phone] hemoglobin a1c on 2 HbA1c (Bld) [Mass fraction] 8.5 4.3-5.6 % High [facility] (63546) Comment: Result Comment: [place] [employer] Association guidelines indicate that patients with HgbA1c in the range 5.7-6.4% are at increased risk for development of diabetes, and intervention by lifestyle modification may be beneficial. HgbA1c greater o r equal to 6.5% is considered diagnostic of diabetes. Performed By: #### LIPB, HBA 1C ####[address] [phone] HbA1c (Bld) [Mass fraction] 197 mg/dL Normal [facility] (72449) Comment: Result Comment: eAG: (Estima violet average glucose) is a calculated value from HgbA1c and is product sales representative of the average blood glucose level in the last 2-3 month period. Performed By: #### LIPB, HBA 1C ####[address] [phone] albumin/creat ratio on 2019-04-16 Albumin Urine Random 649.0 mg/L Normal 9 [facility] ([id number]) Comment: Performed By: #### UACR #### [address] [phone] Albumin/Creat Ratio 223 <30 mg/g High 04-16-2019 [facility] (62899) Comment: Result Comment: Adult Male a nd Female Nephrotic Criteria: <30 mg/g is considered gin l to mildly increased 30-300 mg/g is considered mo derately increased >300 mg/g is considered ryan rely increased KDIGO. (2013). KDIGO 2012 Cl inical Practice Guideline for the Evaluation and Management of Chronic Kidney Disease. Official Journal of the International Society of Nephrology, 3(1), 1-150. Performed By: #### UACR #### [address] [phone] Creatinine,Urine,Ran 290.4 20-300 mg/dL Normal 9 [facility] ([id number]) Comment: Performed By: #### UACR #### [facility] [id number] [place], [place] [phone] obsolete on 2017-07 OBSOLETE Refill Normal 08-22-2017 [place] (AGCARDWST) SHIRIN [facility] SRJi ([id number]) 1945 MDate Time Provider Department08/22/17 RASHAAD PIZARRO During M edical your visit today, we recorde d the following information about you:Carolyn Riley Psr 08/22/2017 3:13 PM Center SignedPatient has been ident ified by name and date of : YesLast office visit in this department: (0 0000) 08/08/2017RX INSTRUCTIONS:[facility]. No need to notify patient.Patient phones requesting refills as follow s:Pending Prescriptions Disp Refills CARVEDILOL 25 MG TABLET 270 tablet 3 Sig: Take 1.5 tablets by laura twice daily with meals. CLARKE: No Please review and advise.Carolyn Pizarro MD 07/29 4:46 PM SignedNoted and agree.Katerina Grimes, RN, RN 08/24/2017 1:43 PM Signede script confirmedAllergies As of Date: 08/22/2017 Noted Allergy ReactionCORTISONE 05/09/2009 14 - Other: See Comments Comments: [place] real hot, as if someone threw boiling water on himZESTRIL (LISINOPRIL) 01/29/2009 5 - Intolerance Comments: ARF, hypokalemiaDate Reviewed: 08/08/2017Reviewed by: Ivett Wilkinson - Fully AssessedReason for Visit: Refill Request [94]Visit Diagnosis:BENIGN H YPERTENSION [I10]Order(s):carvedilol (COREG) 25 mg tabletTake 1.5 tablets by mouth twice daily with meals .Disp: 270 tabletRfl: 3Prescriptions as of 08/22/2017 Sig: CARVEDILOL 25 MG TABLET Take 1.5 tablets by m outh twi* METFORMIN ER 500 MG TABLET,EX* Take 1 tablet by mouth daily * BRIMONIDINE 0.15 % EYE DROPS Instill one drop in each eye * LOSARTAN 100 MG TABLET Take 1 tablet by mouth once d* PEN NEEDLE, DI ABETIC 31 GAUGE* Use as directed 4 times a day* BLOOD SUGAR DIAGNOSTIC STRIPS Use as instructed mayela ts 3 myles* LINAGLIPTIN 5 MG TABLET Take 5 mg by mouth once daily. INSULIN GLARGINE (U-100) 100 * Take 14 units in the AM and 1* GABAPENTIN 100 MG CAPSULE Take 1 capsule by mouth daily* CHLORTHALIDONE 25 MG TABLET Take 1 tablet by mouth once d* PRAVASTATIN 80 MG TABLET Take 1 tablet by mouth once d* CLONIDINE H CL 0.2 MG TABLET Take 1 tablet by mouth twice * AMLODIPINE 10 MG TABLET Take 1 tablet by mouth once d* GL IMEPIRIDE 2 MG TABLET Take 1 tablet by mouth daily * ECOTRIN LOW STRENGTH 81 MG TA* Take one(1) tablet da dorothy. FREESTYLE LANCETS 28 GAUGE Test 2 times daily, 250.02, n*Problem List As Of Date 08/22/2017 Noted Resolved Asthma [J45.909] 07/07/2015 Other specified anemias [D64.89] 03/09/2011 Hypertension goal BP (blood pressure) < 140/90 * More... Hyperlipidemia [E78.5] More... Polyneuropathy in diabetes ( [facility]) [E11.42] INVALID FOR* DIABETES MELLITUS TYPE II UNCONTR UNCOMPL [E11.*INVALID FOR*08/09/2008 More... PROTEINURIA [R80.9] INVALID FOR* Erectile dysfunction associated with type 2 diaz*INVALID FOR* Overweight [E66.3] INVALID FOR* Type 2 diabetes, uncontrolled, with retinopathy*INVALID FOR* Oth er specified gastritis without mention of he*INVALID FOR*07/07/2015 BPH w/o urinary obs/LUTS [N40.0] INV ALID FOR*09/08/2011 Background diabetic retinopathy(362.01) ([facility]) [*INVALID FOR*06/30/2015 Shoulder pain [M25.519] INVALID FOR*03/09/2011 More... BPH with obstruction/lower urinary tract sympto*INVALID FOR* De rmatophytosis of nail [B35.1] INVALID FOR*03/09/2011 Ulcer of other part of foot [L97.509] INVALID FOR*0 03/09/2011 DM neuro manif type II, uncontrolled [E11.49] INVALID FOR*03/09/2011 CKD (chronic kidney disease) stage 3, GFR 30-59*INVALID FOR* Tubular adenoma of colon [D12.6] INVALID FOR* Uncontr olled type 2 diabetes mellitus with both*INVALID FOR*Prescriptions ordered this encounter Disp Refills Start End CARVEDILOL 25 MG TABLET 270 * 3 08/22/2017 Route: ORAL Sig: Take 1.5 tablets by mouth twice d aily with meals.Medications Discontinued During This Encounter carvedilol (COREG) 25 mg tablet 270 * 3 07/07/2016 08/22/2017 Route: ORAL Sig: Take 1.5 tablets by mouth twice daily with meals. Disc: Reason for discontinue is not on file. Status:Closed by ILIR TRAN on 08/24/17 progress on 2017-07 PROGRESS HNO ID: [id number]: Rashaad crowley 08-08-2017 Chong Canales: (none)Author Type: General PhysicianType: Progress NotesFiled: Medical 08/08/2017 3:15 PMNote Text:PERTINENT Center CARDIAC HISTORYHTNHLDMADHERENCE TO ([id number]) GUIDELINESACE-I or ARB for HF with prior LVEF<40 (NQF 0081) - N/AASA or Plavix for ASHD (NQF 0067) - metBeta tejas for ASHD with prior GA or prior LVEF<40 (NQF 0070) - N/ABeta tejas for HF with prior LVEF<40 (NQF 0083) - N/AACE-I or ARB for ASHD with DM or prior LVEF<40 (NQF 0066) - N/AStatin therapy for ASHD or FHL or DM - metBMI documented and plan if >25 (NQF 0421) - lifestyle recommendation formTobacco use screening and referral (NQF 0028) - lifestyle recommendationformRecommendation for whole food, plant based diet - lifestyle recommendationformCLINICAL IMPRESSION/PLAN:Shirin West Sr. has stable exercise tolerance. His blood pressure controlis suboptimal. I asked him to check this daily for the next week andcontact me. We will consider adding hydralazine as he is currently on nodirect vasodilators .For the time being, he will continue his current medication . There is noevidence of renovascular hypertensionI will see him in 8 months or as needed. If there is increased chest painor shortness of breath, he has been urged to contact me.Written and verbal health teaching given to patient, patient verbalizesunderstanding and agrees with treatment plan.This note was generated using [employer] voice recognition system, and theremay be some incorrect words, spellings, and punctuation that were notnoted in checking the note before saving.DIAGNOSIS FOR VISIT:HypertensionHyperlipidemiaHISTORY OF PRESENT ILLNESSCufinn West Sr. returns for follow-up of his hypertension.He reports blood pressures have been in the 150 systolic range, whenchecked. He's had no recent chest discomfort. He denies orthopnea.Exercise tolerance has been stable. He's had minimal edema. He deniessyncope, palpitations, TIAs, amaurosis and claudication.He is now followed in nephrology clinic. [facility]ALLERGIES:ALLERGIESAllergen Reactions- Cortisone Other: See Comments [place] real hot, as if someone threw boiling water on him- Zestril [Lisinopril] Intolerance ARF, hypokalemiaCURRENT OUTPATIENT MEDICATIONS:metFORMIN ER (GLUCOPHAGE XR) 500 mg 24 hr tablet Take 1 tablet by mouthdaily with breakfast.brimonidine (ALPHAGAN P) 0.15 % ophthalmic solution Instill one drop ineach eye 2 times dailylosartan (COZAAR) 100 mg tablet Take 1 tablet by mouth once daily.Insulin Broad Top, Disposable, (1ST TIER UNIFINE PENTIPS) 31 gauge x 3/16ndle Use as directed 4 times a day. Dx: E11.65blood sugar diagnostic (FREESTYLE LITE STRIPS) test strip Use asinstructed tests 3 times a day. Dx: DMIIlinagliptin 5 mg tab Take 5 mg by mouth once daily.insulin glargine (LANTUS SOLOSTAR) 100 unit/mL (3 mL) inpn Take 14 unitsin the AM and 14 units at bed timegabapentin (NEURONTIN) 100 mg capsule Take 1 capsule by mouth daily atbedtime.chlorthalidone (HYGROTON) 25 mg tablet Take 1 tablet by mouth once daily.pravastatin (PRAVACHOL) 80 mg tablet Take 1 tablet by mouth once daily.For cholesterol.cloNIDine HCl (CATAPRES) 0.2 mg tablet Take 1 tablet by mouth twice daily.amLODIPine (NORVASC) 10 mg tablet Take 1 tablet by mouth once daily.carvedilol (COREG) 25 mg tablet Take 1.5 tablets by mouth twice daily withmeals.glimepiride (AMARYL) 2 mg tablet Take 1 tablet by mouth daily withbreakfast.aspirin(ECOTRIN LOW STRENGTH 81 MG TAB) Take one(1) tablet daily.lancets(FREESTYLE LANCETS) Test 2 times daily, 250.02, non insulinPHYSICAL EXAMINATION:VITAL SIGNS: BP 153/75 Pulse 62 Wt 206 lb 11.2 oz (93.8kg)Chest: Clear to percussion and auscultation. Trachea is midline. Airentry is equal. Cardiac: Regular rhythm. S1 and S2 are normal. PMI isnondisplaced. There is a soft systolic ejection murmur. Carotids arebrisk without bruits. JVP is less than 10 cm. Abdomen: Soft andnontender. There are no pulsatile masses or bruits. No liverenlargement. Bowel sounds are active. Extremities: No edema. Pulses areintact and symmetrical.Recent labs were reviewed. Renal function is moderately impaired, butstable. LDL was 93Electronically Signed:Rashaad Pizarro MDFebruary 2017 1:38 [facility]: Jesse Glover MD cnov on 2017-08-08 CNOV Office Visit Normal 08-08-2017 [place] (AGCARDWST) [facility] [place] [facility] SR. ([id number]) 1945 MDate Time Provider Department08/08/17 1:30 PM RASHAAD PIZARRO During your visit today, we recorded the following information about you: Pulse Blood pressure Weight Cente r 62/minute 153/75 93.8 kgKenn kimber Pizarro MD 08/08/2017 3:15 PM SignedPERTINENT CARDIAC ([id number]) HISTORYHTNHLDMADHERENCE TO G UIDELINESACE-I or ARB for HF with prior LVEFANDlt;40 (NQF 0081) - N/AASA or Plavix for ASHD (NQF 0067) - metBeta tejas for ASHD with prior GA or prior LVEFANDlt;40 (NQF 0070) - N/ABeta tejas for HF with prior LVEFANDlt;40 (NQF 0083) - N/AACE-I or ARB for ASHD with DM or prior LVEFANDlt;40 (NQF 0066) - N/ AStatin therapy for ASHD or FHL or DM - metBMI documented and plan if ANDgt;25 (NQF 0421) - lifest yle recommendation formTobacco use screening and referral (NQF 0028) - lifestyle recommendation for mRecommendation for whole food, plant based diet - lifestyle recommendation formCLINICAL IMPRESSION/PLAN :Shirin West Sr. has stable exercise tolerance. His blood pressure control issuboptimal. I asked him to check this daily for the next week and contact me.We will consider adding hydralazine as he is current ly on no directvasodilators .For the time being, he will continue his current medication . There i s noevidence of renovascular hypertensionI will see him in 8 months or as needed. If there is increase d chest pain orshortness of breath, he has been urged to contact me.Written and verbal health teaching anibal contreras to patient, patient verbalizesunderstanding and agrees with treatment plan.This note was generated using [employer] recognition system, and there may besome incorrect words, spellings, and punctu ation that were not noted inchecking the note before saving.DIAGNOSIS FOR VISIT:HypertensionHyperlipid emiaHISTORY OF PRESENT ILLNESSCufinn West Sr. returns for follow-up of his hypertension.He reports bloo d pressures have been in the 150 systolic range, when checked.He's had no recent chest discomfort. He denies orthopnea. Exercise tolerancehas been stable. He's had minimal edema. He denies syncope, palpitati ons, TIAs,amaurosis and claudication.He is now followed in nephrology clinic. [facility].ALLERGIES:ALLERGIESAllergen Reactions- Cortisone Other: See Comments [place] real hot, as if someone threw boiling water on him- Zestril [Lisinopril] Intolerance ARF, hypokalemiaCURRENT OUTP ATIENT MEDICATIONS:metFORMIN ER (GLUCOPHAGE XR) 500 mg 24 hr tablet Take 1 tablet by mouth dailywith br eakfast.brimonidine (ALPHAGAN P) 0.15 % ophthalmic solution Instill one drop in eacheye 2 times dailylosa rtan (COZAAR) 100 mg tablet Take 1 tablet by mouth once daily.Insulin Broad Top, Disposable, (1ST TI ER UNIFINE PENTIPS) 31 gauge x 3/16ANDquot;ndle Use as directed 4 times a day. Dx: E11.65blood sugar d iagnostic (FREESTYLE LITE STRIPS) test strip Use as instructedtests 3 times a day. Dx: DMIIlinagliptin 5 mg tab Take 5 mg by mouth once daily.insulin glargine (LANTUS SOLOSTAR) 100 unit/mL (3 mL) inpn Take 14 units in theAM and 14 units at bed timegabapentin (NEURONTIN) 100 mg capsule Take 1 capsule by mouth trevin y at bedtime.chlorthalidone (HYGROTON) 25 mg tablet Take 1 tablet by mouth once daily.pravastatin (PRAV ACHOL) 80 mg tablet Take 1 tablet by mouth once daily. Forcholesterol.cloNIDine HCl (CATAPRES) 0.2 mg tablet Take 1 tablet by mouth twice daily.amLODIPine (NORVASC) 10 mg tablet Take 1 tablet by mouth once daily.carvedilol (COREG) 25 mg tablet Take 1.5 tablets by mouth twice daily withmeals.glimepiride (AMARYL) 2 mg tablet Take 1 tablet by mouth daily with breakfast.aspirin(ECOTR IN LOW STRENGTH 81 MG TAB) Take one(1) tablet daily.lancets(FREESTYLE LANCETS) Test 2 times daily, 250.02, non insulinPHYSICAL EXAMINATION:VITAL SIGNS: BP 153/75 Pulse 62 Wt 206 lb 11.2 oz (93.8kg)Ch est: Clear to percussion and auscultation. Trachea is midline. Air entry isequal. Cardiac: Regular rh ythm. S1 and S2 are normal. PMI is nondisplaced.There is a soft systolic ejection murmur. Carotids ar e brisk without bruits.JVP is less than 10 cm. Abdomen: Soft and nontender. There are no pulsatilemasses or bruits. No liver enlargement. Bowel sounds are active.Extremities: No edema. Pulses are intact and symmetrical.Recent labs were reviewed. Renal function is moderately impaired, but stable.LDL was 93Electronically Signed:Rashaad Pizarro MDDignity Health St. [facility] Centeruary 2017 1:38 PMCC: Saji Godinez MD 08/08/2017 1:39 PM SignedLIFESTYLE CHANGEA healthy lifestyle is the most important compon ent of your overall treatmentplan. Please give serious thought to the following areas and commit t o makinglong term changes.EAT A WHOLE FOOD, PLANT BASED DIETThe nutrition your body gets is more impor tant than the medicine you take.What matters most is the overall way you eat. We encourage you to min imize theuse of animal products (which include dairy and all meats except fatty fish)and use whole, un processed plant foods to provide your protein, vitamins andother nutrients. We have a lot of information to share with you on this topic. We also hold Shared Medical Appointments, where you can come visit bettie Mckinney in the company of other patients and spend over an hour talking aboutthe challenges of robledo ing the way you eat. This is not a ANDquot;dietANDquot;.It is a way of life that you will keep with you. EXERCISE REGULARLYIt is not important to spend hours in the gym, lifting weights and perspiringheavil y. A total of 2-3 hours per week of aerobic (causing you to bemoderately short of breath) exercise is sufficient to improve your health.Talk to us before you begin a new exercise program, if you hav e heart diseaseor experience shortness of breath or chest pain.REDUCE STRESSChronic emotional and physical stress leads to disease. Ways of reducingstress include meditation, visualization, prayer, yoga and other forms ofrelaxation therapy. Consistency is the seo. Find a technique that works foryou and do it every day.CULTIVATE RELATIONSHIPSLoneliness and isolation have a major negative impact on hea lth. Seek outothers who can love, care for and nurture you. Avoid hurtful relationships.MAINTAIN IDEAL BODY WEIGHTThe best way to do this is to do all the things above. Our bodies naturallyfind the rig ht weight if we keep moving and feed ourselves the right food. Ifyour BMI is greater than 25, we strongly recommend a referral to a weightmanagement program. Please speak to us or your family physician abouta vailable programs.AVOID NICOTINE IN ALL FORMSThis includes all tobacco products, whether chewed, sm oked, vaped, or rubbed onthe skin. Smoking cessation programs, which can make use of tobaccosubstitut es, medications to suppress cravings and behavior management, areavailable. Please contact your family p hysician about programs in your area.Referring Provider: RASHAAD PIZARRO [[id number]]Allergies As of Date: 08/08/2017 Noted Allergy ReactionCORTISONE 05/09/2009 14 - Other: See Comments Comments: [place] real hot, as if someone threw boiling water on himZESTRIL (LISINOPRIL) 01/29/2009 5 - Intolerance C omments: ARF, hypokalemiaDate Reviewed: 08/08/2017Reviewed by: Ivett Richardson) Jaja - Fully AssessedReason for Visit: Recheck [92]Primary Visit Diagnosis:Hypertension, essential [I10]Prescriptions as of 05/2018 Sig: METFORMIN ER 500 MG TABLET,EX* Take 1 tablet by mouth daily * BRIMONIDINE 0.15 % EYE DROPS Instill one drop in each eye * LOSARTAN 100 MG TABLET Take 1 tablet by mouth once d* PEN NEEDLE, DI ABETIC 31 GAUGE* Use as directed 4 times a day* BLOOD SUGAR DIAGNOSTIC STRIPS Use as instructed mayela ts 3 myles* LINAGLIPTIN 5 MG TABLET Take 5 mg by mouth once daily. INSULIN GLARGINE 100 UNIT/ML * Take 14 units in the AM and 1* GABAPENTIN 100 MG CAPSULE Take 1 capsule by mouth daily* CHLORTHALIDONE 25 MG TABLET Take 1 tablet by mouth once d* PRAVASTATIN 80 MG TABLET Take 1 tablet by mouth once d* CLONIDINE H CL 0.2 MG TABLET Take 1 tablet by mouth twice * AMLODIPINE 10 MG TABLET Take 1 tablet by mouth once d* CA RVEDILOL 25 MG TABLET Take 1.5 tablets by mouth twi* GLIMEPIRIDE 2 MG TABLET Take 1 tablet by mouth daily * ECOTRIN LOW STRENGTH 81 MG TA* Take one(1) tablet daily. FREESTYLE LANCETS 28 GAUGE Test 2 time s daily, 250.02, n*Problem List As Of Date 08/08/2017 Noted Resolved Asthma [J45.909] 07/07/2015 Other s pecified anemias [D64.89] 03/09/2011 Hypertension goal BP (blood pressure) < 140/90 * More... Hyperlipide yung [E78.5] More... Polyneuropathy in diabetes ([facility]) [E11.42] INVALID FOR* DIABETES MELLITUS TYPE II UN CONTR UNCOMPL [E11.*INVALID FOR*08/09/2008 More... PROTEINURIA [R80.9] INVALID FOR* Erectile dysfun ction associated with type 2 diaz*INVALID FOR* Overweight [E66.3] INVALID FOR* Type 2 diabetes, uncont rolled, with retinopathy*INVALID FOR* Other specified gastritis without mention of he*INVALID FOR* BPH w/o urinary obs/LUTS [N40.0] INVALID FOR*09/08/2011 Background diabetic retinopathy(362.01) ([facility]) [*INVALID FOR*06/30/2015 Shoulder pain [M25.519] INVALID FOR*03/09/2011 More... BPH w ith obstruction/lower urinary tract sympto*INVALID FOR* Dermatophytosis of nail [B35.1] INVALID FOR* Ulcer of other part of foot [L97.509] INVALID FOR*03/09/2011 DM neuro manif type II, uncontr olled [E11.49] INVALID FOR*03/09/2011 CKD (chronic kidney disease) stage 3, GFR 30-59*INVALID FOR* Tubul ar adenoma of colon [D12.6] INVALID FOR* Uncontrolled type 2 diabetes mellitus with both*INVALID F OR* Other instructions from your clinician: LIFESTYLE CHANGE A healthy lifestyle is the most import ant component of your overall treatment plan. Please give serious thought to the following areas and comm it to making manager terminal changes. EAT A WHOLE FOOD, PLANT BASED DIET The nutrition your body gets is more important than the medicine you take. What matters most is the overall way you eat. We encourage yo u to minimize the use of animal products (which include dairy and all meats except fatty fish) and use w hole, unprocessed plant foods to provide your protein, vitamins and other nutrients. We have a lot of information to share with you on this topic. We also hold Shared Medical Appointments, where you can come visit with Dr. Pizarro in the company of other patients and spend over an hour talking about the ch allenges of changing the way you eat. This is not a diet. It is a way of life that you will keep with you. EXERCISE REGULARLY It is not important to spend hours in the gym, lifting weights and perspiri ng heavily. A total of 2-3 hours per week of aerobic (causing you to be moderately short of breath) exercise is sufficient to improve your health. Talk to us before you begin a new exercise program, if you have heart disease or experience shortness of breath or chest pain. REDUCE STRESS Chronic emotional and physical stress leads to disease. Ways of reducing stress include meditation, visualization, p rayer, yoga and other forms of relaxation therapy. Consistency is the seo. Find a technique that works for you and do it every day. CULTIVATE RELATIONSHIPS Loneliness and isolation have a major negat shereen impact on health. Seek out others who can love, care for and nurture you. Avoid hurtful relations hips. MAINTAIN IDEAL BODY WEIGHT The best way to do this is to do all the things above. Our bodies verenice urally find the right weight if we keep moving and feed ourselves the right food. If your BMI is greater than 25, we strongly recommend a referral to a weight management program. Please speak to us or your community [facility] physician about available programs. AVOID NICOTINE IN ALL FORMS This includes all tobacco product s, whether chewed, smoked, vaped, or rubbed on the skin. Smoking cessation programs, which can make use of tobacco substitutes, medications to suppress cravings and behavior management, are available. Nael mcdonald contact your family physician about programs in your area. Status:Closed by RASHAAD PIZARRO MD on 08/08/17 Vital Signs Vital Sign Description Value / Unit Date Location The following section is limited to 5 en tries per type and includes entries from the following time range: 20200205 - [id number] 1. Body weight 89.45 kg 02-05-2020 [facility] ([id number]) BP Diastolic 70 mm[Hg] 02-05-2020 [facility] ([id number]) BP Systolic 142 mm[Hg] 02-05-2020 [facility] ([id number]) Height 177.8 cm 02-05-2020 [facility] ([id number]) Pulse (Heart Rate) 66 /min 02-05-2020 [facility] ([id number]) Pulse Oximetry 96 % 02-05-2020 [facility] ([id number]) Encounters Date Type Reason Provider Location 04-07-2018 Ambulatory RASHAAD PIZARRO Facility:[facility] 08-08-2017 - Ambulatory [facility] 08-[facility]2017 RASHAAD PIZARRO [facility] RASHAAD PIZARRO ([id number]) [facility] Bursitis of [place] ([place]) Orthopaedi cs 04-07-2020 procedure olecranon of left [place]et[place]itz elbow Comment: Olecranon bursitis of left e lbow (Primary Dx) 03-28-2020 - Patient encounter [facility] 03-28-2020 procedure Navigator) Ele Hyman se Comment: Population Health Navigation Outreach ([facility] Outreach) 03-13-2020 - Patient encounter Laceration without Brigitte Brace Vas cular Surgery 03-13-2020 procedure foreign body, left lower leg, subsequent encounter Comment: Laceration of left lower leg , subsequent encounter (Primary Dx) 03-06-2020 - Patient encounter Retinal edema Adia Finnegan [facility] 03-06-2020 procedure Comment: Retinal edema 02-28-2020 - Patient encounter Laceration without Brigitte Brace Vas cular Surgery 02-28-2020 procedure foreign body, left lower leg, subsequent encounter Comment: Laceration of left lower leg , subsequent encounter (Primary Dx) 02-18-2020 - Patient encounter External [facility] 02-18-2020 procedure Provider 02-14-2020 - Patient encounter Laceration without Brigitte Brace Vas cular Surgery 02-14-2020 procedure foreign body, left lower leg, subsequent encounter Comment: Laceration of left lower leg , subsequent encounter (Primary Dx) 02-05-2020 - Patient encounter Type 2 diabetes Chanda (Regulatory Analyst) Endocr inology 02-05-2020 procedure mellitus Kup[place]c Comment: Type 2 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, with long-term current use of insulin (HCC) (Primary Dx); Type 2 diabetes mellitus wit h diabetic polyneuropathy, with long-term current use of insulin (HCC); Type 2 diabetes mellitus wit h stage 3 chronic kidney disease, with long-term current use of insulin (HCC); Hypertension goal BP (blood pressure) < 140/90; Hyperlipidemia, unspecified hyperlipidemia type 03-05-2020 - 03-05-2020 Refill Xiomara Leonard Opht halmology Comment: Refill Request 02-18-2020 Results Only External Provider [facility] 03-17-2020 - Telephone encounter Jesse Glover [facility] [place] 03-17-2020 Comment: Appointment Procedures Procedure Name Date Provider Location Computerized ophthalmic 03-06-2020 Adia Finnegan [facility] imaging retina ([id number]) EXTERNAL LAB 02-18-2020 External Provider [facility] ([id number]) Colonoscopy 08-04-2016 - [facility] 08-04-2016 ([id number]) Plan of Treatment Plan Description Date Location DTAP,TDAP,TD (2 - Td) DTAP,TDAP,TD (2 - Td) 01-13-2028 - [facility] 01-13-2028 ([id number]) DILATED RETINAL EXAM DILATED RETINAL EXAM 03-06-2021 - [facility] 03-06-2021 ([id number]) ANNUAL PCP TEAM CHRONIC ANNUAL PCP TEAM CHRONIC 01-29-2021 - [facility] DISEASE VISIT DISEASE VISIT 01-29-2021 ([id number]) URINE ALBUMIN:CREATININE URINE ALBUMIN:CREATININE 12-18-2020 - [facility] RATIO RATIO 12-18-2020 ([id number]) LDL CHOLESTEROL LDL CHOLESTEROL 12-18-2020 - [facility] 12-18-2020 ([id number]) SERUM CREATININE SERUM CREATININE 12-18-2020 - [facility] 12-18-2020 ([id number]) HEMOGLOBIN/HEMATOCRIT HEMOGLOBIN/HEMATOCRIT 10-08-2020 - [facility] 10-08-2020 ([id number]) ALBUMIN/CREAT RATIO RND ALBUMIN/CREAT RATIO RND 07-29-2020 - [facility] UR UR Lab Routine Expected: 02-04-2021 ([id number]) 07/29/2020, Expires: 02/04/2021 Comment: Expected: 07/29/2020, s: 02/04/2021 COMP METABOLIC PANEL COMP METABOLIC PANEL 07-29-2020 - [facility] Lab Routine Expected: 02-04-2021 ([id number]) 07/29/2020, Expires: 02/04/2021 Comment: Expected: 07/29/2020, s: 02/04/2021 HGB A1C HGB A1C Lab Routine 07-29-2020 - 02-04-2021 [facility] ([id number]) Expected: 07/29/2020, Expires: 02/04/2021 Comment: Expected: 07/29/2020, s: 02/04/2021 LIPID PANEL BASIC LIPID PANEL BASIC Lab 07-29-2020 - [facility] Routine Expected: 02-04-2021 ([id number]) 07/29/2020, Expires: 02/04/2021 Comment: Expected: 07/29/2020, s: 02/04/2021 DILATED RETINAL EXAM DILATED RETINAL EXAM 06-22-2020 - [facility] 06-22-2020 ([id number]) HBA1C HBA1C 06-19-2020 - [facility] 06-19-2020 ([id number]) BP CONTROLLED BP CONTROLLED 06-04-2020 - [facility] (<130/80) (<130/80) 06-04-2020 ([id number]) DIABETIC FOOT EXAM DIABETIC FOOT EXAM 04-28-2020 - [facility] 04-28-2020 ([id number]) INFLUENZA (#1) INFLUENZA (#1) 2020 - [facility] 02-26-2020 ([id number]) COLONOSCOPY COLONOSCOPY 08-04-2019 - [facility] 08-04-2019 ([id number]) COLORECTAL CANCER COLORECTAL CANCER 08-04-2019 [facility] inic SCREENING,SEE MODIFIER SCREENING,SEE MODIFIER (3 8587) SHINGRIX VACCINE (2 of SHINGRIX VACCINE (2 of 12-15-2014 - [facility] 3) 3) 06-10-2014 ([id number]) ADVANCE DIRECTIVE ADVANCE DIRECTIVE 02-07-2012 - [facility] DISCUSSION DISCUSSION 02-07-2012 ([id number]) no information [facility] (28492) Immunizations Vaccine Notes Status Date Location Influenza Vaccine, influenza virus (completed) 07-14-2012 - [facility] Split-Non Spec vaccine, unspecified 07-14-2012 (4419 5) formulation Influenza Seasonal influenza, high dose (completed) 06-04-2019 - [facility] - High Dose - Age seasonal, 06-04-2019 ([id number]) 65+ preservative-free Influenza Seasonal influenza, high dose (completed) 05-26-2017 - [facility] - High Dose - Age seasonal, 05-26-2017 ([id number]) 65+ preservative-free Influenza Seasonal influenza, high dose (completed) 03-16-2016 - [facility] - High Dose - Age seasonal, 03-16-2016 (04039) 65+ preservative-free Influenza Seasonal influenza, high dose (completed) 04-15-2014 - [facility] - High Dose - Age seasonal, 04-15-2014 (70983) 65+ preservative-free Influenza Seasonal influenza, seasonal, (completed) 06-02-2015 - [facility] Inj Age 3+ injectable 06-02-2015 ([id number]) Pneumococcal-13 Vac pneumococcal conjugate (completed) 03-10-2015 - [facility] Conjugate vaccine, 13 valent 03-10-2015 ([id number]) Pneumovax pneumococcal (completed) 03-20-2014 - [facility] polysaccharide vaccine, 03-20-2014 (441 95) 23 valent Pneumovax pneumococcal (completed) 07-31-2007 - [facility] polysaccharide vaccine, 07-31-2007 (441 95) 23 valent TD Adult tetanus and diphtheria (completed) 07-31-2007 - [facility] toxoids, adsorbed, 07-31-2007 (07297) preservative free, for adult use (2 Lf of tetanus toxoid and 2 Lf of diphtheria toxoid) Tdap (Age 7+) tetanus toxoid, reduced (completed) 01-12-2018 - [facility] diphtheria toxoid, and 01-12-2018 (4419 5) acellular pertussis vaccine, adsorbed Zostavax zoster vaccine, live (completed) 04-15-2014 - [facility] 04-15-2014 ([id number]) Payers Payer Name Policy Number Location HOSPITAL/MEDICAL GENERIC [id number] [facility] ([id number]) MEDICARE [id number] [facility] (44 195) MEDICARE A AND B [id number] [facility] ([id number]) MEDPAY [id number] [facility] (44 195) The following information is from the original human readable contentNo Payer Records FoundNo Payer Records FoundNo Payer Records FoundNo Payer Records FoundNo Payer Records Found Social History Type Social History Date Location Description Tobacco smoking status Former smoker 02-28-2020 - [facility] NHIS 04-07-2020 ([id number]) History of tobacco use Cigar Smoker [facility] (93259) Tobacco use and Never used 02-28-2020 - [facility] exposure 04-07-2020 ([id number]) Alcohol intake [facility] 04-07-2020 (76214) Tobacco Comment quit 40 + years ago 06-02-2017 - [facility] 06-02-2017 (65501) Alcohol Comment rarely, 2-3 glasses red 08-04-2016 - [facility] wine per month 08-04-2016 (75794) Sex Assigned At Not on file [facility] (45912) Exposure to SARS-CoV-2 Not sure [facility] (event) (65485) Exposure to SARS-CoV-2 Unable to assess [facility] (event) (99142) The following information is from the original human readable contentNo Social History Records FoundNo Social History Records FoundNo Social History Records FoundNo Social History Records FoundNo Social History Records FoundNo Social History Records FoundNo Social History Records Found Medical Equipment Equipment Code (if Equipment Original Equipment Procedure Code D ates provided) Text (if provided) Identifier (if (if provided) provided) 1 Applicator as 04-08-2018 directed. Test blood sugar(s) 4 2019 times daily. Dx: Type 2 DM - Uncontrolled E11.65 Insulin: Yes Test blood sugar(s) 4 -2019 times daily. Dx: Type 2 DM - Uncontrolled E11.65 Insulin: Yes Use as directed 4 05-01-2019 times a day. Dx: E11.65 Test blood sugar(s) 4 2019 times daily. Dx: Type 2 DM - Uncontrolled E11.65 Insulin: Yes 1 Applicator as 04-08-2018 directed. Test blood sugar(s) 4 2019 times daily. Dx: Type 2 DM - Uncontrolled E11.65 Insulin: Yes Use as directed 05-01-2019 times a day. Dx: E11.65 Test blood sugar(s) 4 2019 times daily. Dx: Type 2 DM - Uncontrolled E11.65 Insulin: Yes 1 Applicator as 04-08-2018 directed. Test blood sugar(s) 4 2019 times daily. Dx: Type 2 DM - Uncontrolled E11.65 Insulin: Yes Use as directed 05-01-2019 times a day. Dx: E11.65 Test blood sugar(s) 4 2019 times daily. Dx: Type 2 DM - Uncontrolled E11.65 Insulin: Yes 1 Applicator as 04-08-2018 directed. Test blood sugar(s) 4 2019 times daily. Dx: Type 2 DM - Uncontrolled E11.65 Insulin: Yes Use as directed 05-01-2019 times a day. Dx: E11.65 Test blood sugar(s) 4 2019 times daily. Dx: Type 2 DM - Uncontrolled E11.65 Insulin: Yes 1 Applicator as 04-08-2018 directed. Test blood sugar(s) 4 2019 times daily. Dx: Type 2 DM - Uncontrolled E11.65 Insulin: Yes Use as directed 05-01-2019 times a day. Dx: E11.65 Test blood sugar(s) 4 2020 times daily. Dx: Type 2 DM - Uncontrolled E11.65 Insulin: Yes 1 Applicator as 04-08-2018 directed. Lens Iol Ultrasert 24 [id number] 2016 - [id number] Use as directed 05-01-2019 times a day. Dx: E11.65 Test blood sugar(s) 4 2019 times daily. Dx: Type 2 DM - Uncontrolled E11.65 Insulin: Yes 1 Applicator as 04-08-2018 directed. Test blood sugar(s) 4 2019 times daily. Dx: Type 2 DM - Uncontrolled E11.65 Insulin: Yes Use as directed 05-01-2019 times a day. Dx: E11.65 Test blood sugar(s) 4 2019 times daily. Dx: Type 2 DM - Uncontrolled E11.65 Insulin: Yes 1 Applicator as 04-08-2018 directed. Test blood sugar(s) 4 2019 times daily. Dx: Type 2 DM - Uncontrolled E11.65 Insulin: Yes Use as directed 05-01-2019 times a day. Dx: E11.65 Test blood sugar(s) 4 2019 times daily. Dx: Type 2 DM - Uncontrolled E11.65 Insulin: Yes 1 Applicator as 04-08-2018 directed. Test blood sugar(s) 4 2019 times daily. Dx: Type 2 DM - Uncontrolled E11.65 Insulin: Yes Use as directed 05-01-2019 times a day. Dx: E11.65 Test blood sugar(s) 4 2019 times daily. Dx: Type 2 DM - Uncontrolled E11.65 Insulin: Yes 1 Applicator as 04-08-2018 directed. Test blood sugar(s) 4 2019 times daily. Dx: Type 2 DM - Uncontrolled E11.65 Insulin: Yes Use as directed 05-01-2019 times a day. Dx: E11.65 Test blood sugar(s) 4 2019 times daily. Dx: Type 2 DM - Uncontrolled E11.65 Insulin: Yes 1 Applicator as 04-08-2018 directed. Test blood sugar(s) 4 2019 times daily. Dx: Type 2 DM - Uncontrolled E11.65 Insulin: Yes Use as directed 05-01-2019 times a day. Dx: E11.65 Test blood sugar(s) 4 2019 times daily. Dx: Type 2 DM - Uncontrolled E11.65 Insulin: Yes History of Past Illness Problem Noted Date Resolved Date CKD (chronic kidney disease) stage 3, GFR 30-59 ml/min 05/2610/04/2019 Type II or unspecified type diabetes mellitus with 0 03/09/2011 neurological manifestations, uncontrolled(250.62) Ulcer of other part of foot 06/30/2009 03/09/2011 Dermatophytosis of nail 04/22/2009 03/09/2011 Shoulder pain 09/25/2008 03/09/2011 Overview: Right. Other specified gastritis without mention of hemorrhage 08/2607/07/2015 Hypertrophy of prostate without urinary obstruction and othe r 09/18/2008 09/08/2011 lower urinary tract symptoms (LUTS) Background diabetic retinopathy(362.01) 09/18/2008 06/30/2015 Type II or unspecified type diabetes mellitus without mentio n 07/27/2005 08/09/2008 of complication, uncontrolled Overview: Alb/Creat 10 in 7-08 A1C 7.9% in 01-01, 11.8% in 07-05 Creat 1.4 in 07-05 Asthma 07/07/2015 Problem Noted Date Resolved Date CKD (chronic kidney disease) stage 3, GFR 30-59 ml/min 05/2610/04/2019 Type II or unspecified type diabetes mellitus with 0 03/09/2011 neurological manifestations, uncontrolled(250.62) Ulcer of other part of foot 06/30/2009 03/09/2011 Dermatophytosis of nail 04/22/2009 03/09/2011 Shoulder pain 09/25/2008 03/09/2011 Overview: Right. Other specified gastritis without mention of hemorrhage 08/2607/07/2015 Hypertrophy of prostate without urinary obstruction and othe r 09/18/2008 09/08/2011 lower urinary tract symptoms (LUTS) Background diabetic retinopathy(362.01) 09/18/2008 06/30/2015 Type II or unspecified type diabetes mellitus without mentio n 07/27/2005 08/09/2008 of complication, uncontrolled Overview: Alb/Creat 10 in -08 A1C 7.9% in 01-01, 11.8% in 07-05 Creat 1.4 in 07-05 Asthma 07/07/2015 Problem Noted Date Resolved Date CKD (chronic kidney disease) stage 3, GFR 30-59 ml/min 05/2610/04/2019 Type II or unspecified type diabetes mellitus with 0 03/09/2011 neurological manifestations, uncontrolled(250.62) Ulcer of other part of foot 06/30/2009 03/09/2011 Dermatophytosis of nail 04/22/2009 03/09/2011 Shoulder pain 09/25/2008 03/09/2011 Overview: Right. Other specified gastritis without mention of hemorrhage 08/2607/07/2015 Hypertrophy of prostate without urinary obstruction and othe r 09/18/2008 09/08/2011 lower urinary tract symptoms (LUTS) Background diabetic retinopathy(362.01) 09/18/2008 06/30/2015 Type II or unspecified type diabetes mellitus without mentio n 07/27/2005 08/09/2008 of complication, uncontrolled Overview: Alb/Creat 10 in 7-08 A1C 7.9% in 7-08, 11.8% in 1-09 Creat 1.4 in 1-09 Asthma 07/07/2015 Problem Noted Date Resolved Date CKD (chronic kidney disease) stage 3, GFR 30-59 ml/min 05/2610/04/2019 Type II or unspecified type diabetes mellitus with 0 03/09/2011 neurological manifestations, uncontrolled(250.62) Ulcer of other part of foot 06/30/2009 03/09/2011 Dermatophytosis of nail 04/22/2009 03/09/2011 Shoulder pain 09/25/2008 03/09/2011 Overview: Right. Other specified gastritis without mention of hemorrhage 08/2607/07/2015 Hypertrophy of prostate without urinary obstruction and othe r 09/18/2008 09/08/2011 lower urinary tract symptoms (LUTS) Background diabetic retinopathy(362.01) 09/18/2008 06/30/2015 Type II or unspecified type diabetes mellitus without mentio n 07/27/2005 08/09/2008 of complication, uncontrolled Overview: Alb/Creat 10 in 7-08 A1C 7.9% in 7-08, 11.8% in - Creat 1.4 in 1- Asthma 07/07/2015 Problem Noted Date Resolved Date CKD (chronic kidney disease) stage 3, GFR 30-59 ml/min 05/2610/04/2019 Type II or unspecified type diabetes mellitus with 0 03/09/2011 neurological manifestations, uncontrolled(250.62) Ulcer of other part of foot 06/30/2009 03/09/2011 Dermatophytosis of nail 04/22/2009 03/09/2011 Shoulder pain 09/25/2008 03/09/2011 Overview: Right. Other specified gastritis without mention of hemorrhage 08/2607/07/2015 Hypertrophy of prostate without urinary obstruction and othe r 09/18/2008 09/08/2011 lower urinary tract symptoms (LUTS) Background diabetic retinopathy(362.01) 09/18/2008 06/30/2015 Type II or unspecified type diabetes mellitus without mentio n 07/27/2005 08/09/2008 of complication, uncontrolled Overview: Alb/Creat 10 in 7-08 A1C 7.9% in 7-08, 11.8% in 1-09 Creat 1.4 in 1-09 Asthma 07/07/2015 Problem Noted Date Resolved Date CKD (chronic kidney disease) stage 3, GFR 30-59 ml/min 05/2610/04/2019 Type II or unspecified type diabetes mellitus with 0 03/09/2011 neurological manifestations, uncontrolled(250.62) Ulcer of other part of foot 06/30/2009 03/09/2011 Dermatophytosis of nail 04/22/2009 03/09/2011 Shoulder pain 09/25/2008 03/09/2011 Overview: Right. Other specified gastritis without mention of hemorrhage 08/2607/07/2015 Hypertrophy of prostate without urinary obstruction and othe r 09/18/2008 09/08/2011 lower urinary tract symptoms (LUTS) Background diabetic retinopathy(362.01) 09/18/2008 06/30/2015 Type II or unspecified type diabetes mellitus without mentio n 07/27/2005 08/09/2008 of complication, uncontrolled Overview: Alb/Creat 10 in 7-08 A1C 7.9% in 7-08, 11.8% in -09 Creat 1.4 in -09 Asthma 07/07/2015 History of Present Illness Brigitte Parks 02/28/2020 9:55 AM EDT VASCULAR SURGERY WOUND OSTOMY CONTINENCE CONSULTATION CHIEF COMPLAINT: Wound check and evaluation HISTORY OF PRESENT ILLNESS: LLE abrasion PAST MEDICAL HISTORY Diagnosis Date ? Anemia in stage 3 chronic kidney disease (HCC) ? Background diabetic retinopathy(362.01) 09/18/2008 Rig eye. ? Cataract of left eye ? Chronic kidney disease, unspecified ? CKD (chronic kidney disease) stage 3, GFR 30-59 ml/min (HCC) 05/26/2017 ? Coloboma of iris OD ? Depressive disorder, not elsewhere classified ? Erectile dysfunction associated with type 2 diabetes mellitus (HCC) 07/09/2008 ? Esophageal reflux ? Essential hypertension, benign ? Hyperplasia of prostate ? Macular edema dme od ? Other and unspecified hyperlipidemia ? Other specified anemias ? Other specified gastritis without mention of hemorrhage 09/18/2008 ? Personal history of colonic polyps 08/04/2016 ? Primary open angle glaucoma OU ? Proliferative diabetic retinopathy(362.02) ? Pseudophakia of right eye ? Shoulder pain 09/25/2008 Right. ? Tubular adenoma of colon 08/10/2016 ? Type II or unspecified type diabetes mellitus with ophthalmic manifestations, uncontrolled(250.52)09/18/2008 iddm ? Unspecified asthma(493.90) ? Vitreous hemorrhage of left eye (HCC) PAST SURGICAL HISTORY Procedure Laterality Date ? AVASTIN (BEVACIZUMAB) 1.25MG INTRAVITREAL INJECTION OD (RIGHT EYE) Right 04/19/2018 LAST ? COLONOS W/REM POLYP SNARE 08/04/2016 Repeat 07/2019 ? COLONOSCOP W/ OR W/O BRSH SPEC Colonoscopy ? COLONOSCOPY W/BX 07/25/13 Repeat due 2016 ? EGD W/O OR W/BRUSH/WASH 2002 EGD ? EYE SURGERY HX Right 05/02/2018 Pars plana vitrectomy, membrane peel, endolaser, and air fluid exchange right eye. ? LAPAROSCOPIC CHOLEYCYSTECTOMY Cholecystectomy, lap ? PANRETINAL PHOTOCOAGULATION (PRP) OD (RIGHT EYE) Right 08/29/2014 LAST ; PRP (Panretinal Photocoagulation) OD ? PANRETINAL PHOTOCOAGULATION (PRP) OS (LEFT EYE) Left 07/12/2013 #2 ; PRP (Panretinal Photocoagulation) OS ? PROSTATECTOMY SUPRAPUBIC SUBTOTAL for BPH ? REMV CATARACT EXTRACAP,INSERT LENS 02/07/2007 Cataract Removal right ? REMV CATARACT EXTRACAP,INSERT LENS Left 11/16/2016 Cataract Extraction with PC IOL OS ? REPAIR ROTATOR CUFF,ACUTE 2008 Rotator cuff repair, Right ? VITRECTOMY,MECHANICAL Left 11/16/2016 PPV/MP/EL/AFX OS ALLERGIES Allergen Reactions ? Cortisone Other: See Comments [place] real hot, as if someone threw boiling water on him ? Zestril [Lisinopril] Intolerance ARF, hypokalemia Social History Tobacco Use ? Smoking status: Former Smoker Types: Cigars ? Smokeless tobacco: Never Used ? Tobacco comment: quit 40 + years ago Substance Use Topics ? Alcohol use: Yes Comment: rarely, 2-3 glasses red wine per month ? Drug use: No FAMILY HISTORY Problem Relation Age of Onset ? Breast Cancer Mother at age 55 ? COPD Father Black lung ? Breast Cancer Sister at age 54 ? Diabetes Brother ? No Ocular Disease No Family History nothing known of MEDICATIONS: linaGLIPtin (TRADJENTA) 5 mg tab Take 1 tablet by mouth once daily. diclofenac sodium (VOLTAREN) 1 % topical gel Apply 2 g to affected area four times daily. furosemide (LASIX) 40 mg tablet Take 1 tablet by mouth once daily. Blood-Glucose Meter monitoring kit Glucose Meter of Choice - Kit - Dx: Type 2 DM - Uncontrolled E11.65 blood sugar diagnostic (BLOOD GLUCOSE TEST) test strip Test blood sugar(s) 4 times daily. Dx: Type 2DM - Uncontrolled E11.65 Insulin: Yes Lancets lancets Test blood sugar(s) 4 times daily. Dx: Type 2 DM - Uncontrolled E11.65 Insulin: Yes insulin 75/25 lispro protamine/lispro units/mL (HUMALOG MIX 75-25 KWIKPEN) 100 unit/mL (75-25) inpn Inject 20 units breakfast and 20 units dinner metFORMIN ER (GLUCOPHAGE XR) 500 mg 24 hr tablet Take 1 tablet by mouth daily with breakfast. NIFEdipine ER (PROCARDIA XL) 90 mg 24 hr tablet Take 1 tablet by mouth once daily. chlorthalidone (HYGROTON) 25 mg tablet Take 1 tablet by mouth once daily. carvedilol (COREG) 25 mg tablet Take 1.5 tablets by mouth twice daily with meals. cloNIDine HCl (CATAPRES) 0.2 mg tablet Take 1 tablet by mouth twice daily. gabapentin (NEURONTIN) 100 mg capsule Take 2 capsules by mouth daily at bedtime. From podiatry (Dr. Cordon) pravastatin (PRAVACHOL) 80 mg tablet Take 1 tablet by mouth once daily. For cholesterol. diclofenac sodium (VOLTAREN) 1 % topical gel Apply 2 g to affected area four times daily. timolol maleate (TIMOPTIC) 0.5 % ophthalmic solution Use 1 Drop in both eyes twice daily. Use at 6 AM and 6 PM latanoprost (XALATAN) 0.005 % ophthalmic solution Use 1 Drop in both eyes daily at bedtime. Insulin Broad Top, Disposable, (1ST TIER UNIFINE PENTIPS) 31 gauge x 3/16 ndle Use as directed 4 times a day. Dx: E11.65 losartan (COZAAR) 100 mg tablet TAKE 1 TABLET EVERY DAY BY MOUTH cholecalciferol (VITAMIN D) 1,000 unit tab tablet Take 1 tablet by mouth once daily. BD INSULIN PEN NEEDLE UF 31 gauge x 5/16 ndle 1 Applicator as directed. cyanocobalamin (VITAMIN B-12) 1,000 mcg tab Take 1 tablet by mouth once daily. aspirin(ECOTRIN LOW STRENGTH 81 MG TAB) Take one(1) tablet daily. REVIEW OF SYSTEMS 12 organ system review was performed with these findings: No change from prior assessment Exceptions: Integumentary: See below Nutritional Status Appetite: fair Diet: Regular Albumin/Prealbumin levels: Lab Results Component Value Date ALB 3.8 (L) 12/19/2019 PHYSICAL EXAMINATION Constitutional: Appears about stated age, well nourished, no weight loss, no fevers and no chills. Psych: Alert and oriented to person, place and time. Intact memory. Normal limit affect, judgement and insight. Respiratory: Symmetrical expansion and effort. No cough, no shortness of breath. Cardiovascular: No chest pain. No edema. Neuro: Normal limit cranial nerves. Musculoskeletal: Normal limit gait. Normal limit symmetry. Normal limit range of motion. Normal limit muscle strength. Normal limit tone of all extremities. Integumentary: Normal skin color, texture and turgor. No dry, scaly or cracked skin. No ecchymotic areas. No friable skin. No rash, lesions, excoriations or black. No diaphoresis. No jaundice, no ruddiness, no skin pallor. LLE laceration; scar tissue except proximal = 0.2 cm x 0.2 cm x <0.25 cm yellow dry tissue, no odor or drainage, no s/s of infection Eyes: Pupils are equal, round and reactive to light. Ears: Normal limit hearing. Nose/Mouth/Throat: Normal limit external ear canals and TM. Normal limit teeth, lips and gums. Neck: Normal limit appearance and movements. Trachea midline. Breast: Not assessed. Lymphatic: Not assessed. Abdominal: Not assessed. WOUND PAIN: No pain or discomfort DATA REVIEWED: Chart reviewed. ASSESSMENT/PLAN/TREATMENT RECOMMENDATIONS Apply foam dressing to wound base. Change every 3-5 days. Education provided Treatment demonstrated Questions answered I have spent 15 minutes with the patient for physical and wound assessment, wound cleaning, dressingdemonstration and answering questions. More than 50% of the time spent with the patient included education/counselling/coordination of care. Brigitte Parks, PhD, WOCN, CNP documented in this encounterChanda Phillips (Regulatory Analyst) - 02/05/2020 1:00 PM EDT Reason for Consultation: DM Type 2 Referring Physician: Jesse Glover MD [id number] [facility] [id number] HISTORY OF PRESENT ILLNESS Mr. West is a 74 year old male presenting here today for a follow up of DM Type 2. As I recall, he was initially diagnosed with diabetes 1989.He has been on insulin since 2008 A1C 7.0 on 12/19/2019. Down from 8.9 in September LV 10/12/19--virtually Fhx of DM in mother, siblings, Maternal Aunt. Under the care of podiatry, nephrology LV with nephrology 12/20/19: mild anemia, secondary hyperparathyroidism Seeing cardiology in [place].Denies hx of GA, CVA, stents, CABG/CAD Feeling sluggish about noon. Concerned about taking insulin and metformin at the same time and that it is contributing Seeing ortho for bursitis after our appointment ? Known complications include: hypertension, hyperlipidemia, retinopathy, peripheral neuropathy and CKD ? Exacerbating factors include: none ? Current diabetes regimen is as follows: 1. Humalog 75/25: 20 units breakfast and 20 units dinner 2. Metformin ER 500 mg at breakfast--reduced dose secondary to renal function 3. linagliptin 5mg daily Previous DM medications: Glimepiride lantus he is checking his blood glucose 2 times daily. he does not bring a log book today for review. No meter or log book today ? LDE Blood Sugar Frequency: FBS 110-130 acS 165-170 ? Hypoglycemia frequency: as low as 60 with yard work. ? Hypoglycemia awareness: Yes Regarding symptoms of hypoglycemia, he is not experiencing any symptoms such as polyuria, polydipsia, nocturia or rapid weight loss or blurry vision, Overall, the patient has no acute complaints at this time. PAST MEDICAL HISTORY Diagnosis Date ? Anemia in stage 3 chronic kidney disease (HCC) ? Background diabetic retinopathy(362.01) 09/18/2008 [facility]. ? Cataract of left eye ? Chronic kidney disease, unspecified ? CKD (chronic kidney disease) stage 3, GFR 30-59 ml/min ([facility]) 05/26/2017 ? Coloboma of iris OD ? Depressive disorder, not elsewhere classified ? Erectile dysfunction associated with type 2 diabetes mellitus (HCC) 07/09/2008 ? Esophageal reflux ? Essential hypertension, benign ? Hyperplasia of prostate ? Macular edema dme od ? Other and unspecified hyperlipidemia ? Other specified anemias ? Other specified gastritis without mention of hemorrhage 09/18/2008 ? Personal history of colonic polyps 08/04/2016 ? Primary open angle glaucoma OU ? Proliferative diabetic retinopathy(362.02) ? Pseudophakia of right eye ? Shoulder pain 09/25/2008 Right. ? Tubular adenoma of colon 08/10/2016 ? Type II or unspecified type diabetes mellitus with ophthalmic manifestations, uncontrolled(250.52)09/18/2008 [facility] ? Unspecified asthma(493.90) ? Vitreous hemorrhage of left eye ([facility]) PAST SURGICAL HISTORY Procedure Laterality Date ? AVASTIN (BEVACIZUMAB) 1.25MG INTRAVITREAL INJECTION OD (RIGHT EYE) Right 04/19/2018 LAST ? COLONOS W/REM POLYP SNARE 08/04/2016 Repeat 07/2019 ? COLONOSCOP W/ OR W/O [facility] SPEC Colonoscopy ? COLONOSCOPY W/BX 07/25/13 Repeat due 2016 ? EGD W/O OR W/BRUSH/WASH 2002 EGD ? EYE SURGERY HX Right 05/02/2018 Pars plana vitrectomy, membrane peel, endolaser, and air fluid exchange right eye. ? LAPAROSCOPIC CHOLEYCYSTECTOMY Oct.2002 Cholecystectomy, lap ? PANRETINAL PHOTOCOAGULATION (PRP) OD (RIGHT EYE) Right 08/29/2014 LAST ; PRP (Panretinal Photocoagulation) OD ? PANRETINAL PHOTOCOAGULATION (PRP) OS (LEFT EYE) Left 07/12/2013 #2 ; PRP (Panretinal Photocoagulation) OS ? PROSTATECTOMY SUPRAPUBIC SUBTOTAL for BPH ? REMV CATARACT EXTRACAP,INSERT LENS 02/07/2007 Cataract Removal right ? REMV CATARACT EXTRACAP,INSERT LENS Left 11/16/2016 Cataract Extraction with PC IOL OS ? REPAIR ROTATOR CUFF,ACUTE 2008 Rotator cuff repair, Right ? VITRECTOMY,MECHANICAL Left 11/16/2016 PPV/MP/EL/AFX OS FAMILY HISTORY Problem Relation Age of Onset ? Breast Cancer Mother at age 55 ? COPD Father Black lung ? Breast Cancer Sister at age 54 ? Diabetes Brother ? No Ocular Disease No Family History nothing known of Social History Tobacco Use ? Smoking status: Former Smoker Types: Cigars ? Smokeless tobacco: Never Used ? Tobacco comment: quit 40 + years ago Substance Use Topics ? Alcohol use: Yes Comment: rarely, 2-3 glasses red wine per month ? Drug use: No Allergies As of Date: 02/05/2020 Allergen Noted Reaction CORTISONE 05/09/2009 Other: See Comments ZESTRIL [LISINOPRIL] 01/29/2009 Intolerance Fully Assessed 02/05/2020 Current Outpatient Medications Medication Sig Dispense Refill ? linaGLIPtin (TRADJENTA) 5 mg tab Take 1 tablet by mouth once daily. 30 tablet 5 ? diclofenac sodium (VOLTAREN) 1 % topical gel Apply 2 g to affected area four times daily. 200 g 1 ? furosemide (LASIX) 40 mg tablet Take 1 tablet by mouth once daily. 90 tablet 3 ? blood sugar diagnostic (BLOOD GLUCOSE TEST) test strip Test blood sugar(s) 4 times daily. Dx: Type2 DM - Uncontrolled E11.65 Insulin: Yes 200 Strip 11 ? Lancets lancets Test blood sugar(s) 4 times daily. Dx: Type 2 DM - Uncontrolled E11.65 Insulin: Yes 400 Each 11 ? insulin 75/25 lispro protamine/lispro units/mL (HUMALOG MIX 75-25 KWIKPEN) 100 unit/mL (75-25) inpn Inject 20 units breakfast and 20 units dinner 15 mL 5 ? metFORMIN ER (GLUCOPHAGE XR) 500 mg 24 hr tablet Take 1 tablet by mouth daily with breakfast. 90 tablet 1 ? NIFEdipine ER (PROCARDIA XL) 90 mg 24 hr tablet Take 1 tablet by mouth once daily. 90 tablet 3 ? chlorthalidone (HYGROTON) 25 mg tablet Take 1 tablet by mouth once daily. 90 tablet 3 ? carvedilol (COREG) 25 mg tablet Take 1.5 tablets by mouth twice daily with meals. 270 tablet 3 ? cloNIDine HCl (CATAPRES) 0.2 mg tablet Take 1 tablet by mouth twice daily. 180 tablet 3 ? gabapentin (NEURONTIN) 100 mg capsule Take 2 capsules by mouth daily at bedtime. From podiatry (Dr. Cordon) ? pravastatin (PRAVACHOL) 80 mg tablet Take 1 tablet by mouth once daily. For cholesterol. 90 tablet3 ? diclofenac sodium (VOLTAREN) 1 % topical gel Apply 2 g to affected area four times daily. 100 g 0 ? timolol maleate (TIMOPTIC) 0.5 % ophthalmic solution Use 1 Drop in both eyes twice daily. Use at 6AM and 6 PM 1 Bottle 1 ? latanoprost (XALATAN) 0.005 % ophthalmic solution Use 1 Drop in both eyes daily at bedtime. 1 Bottle 1 ? Insulin Broad Top, Disposable, (1ST TIER UNIFINE PENTIPS) 31 gauge x 3/16 ndle Use as directed 4 times a day. Dx: E11.65 400 Each 3 ? losartan (COZAAR) 100 mg tablet TAKE 1 TABLET EVERY DAY BY MOUTH 30 tablet 11 ? cholecalciferol (VITAMIN D) 1,000 unit tab tablet Take 1 tablet by mouth once daily. 30 tablet 3 ? BD INSULIN PEN NEEDLE UF 31 gauge x 5/16 ndle 1 Applicator as directed. 3 ? cyanocobalamin (VITAMIN B-12) 1,000 mcg tab Take 1 tablet by mouth once daily. ? aspirin(ECOTRIN LOW STRENGTH 81 MG TAB) Take one(1) tablet daily. 0 ? Blood-Glucose Meter monitoring kit Glucose Meter of Choice - Kit - Dx: Type 2 DM - Uncontrolled E11.65 1 Each 0 No current facility-administered medications for this visit. REVIEW OF SYSTEMS Review of Systems Constitutional: Negative for fever and chills. Respiratory: Negative for cough and difficulty breathing. Cardiovascular: Negative for chest pain and palpitations. Gastrointestinal: Negative for nausea, vomiting, diarrhea and constipation. PHYSICAL EXAMINATION BP 142/70 (BP Site: Left Arm, BP Position: Sitting, BP Cuff Size: Large Adult) Pulse 66 Ht 177.8 cm (5' 10) Wt 89.4 kg (197 lb 3.2 oz) SpO2 96% BMI 28.3 kg/m2 Physical Exam Constitutional: Appearance: Normal appearance. HENT: Head: Normocephalic and atraumatic. Cardiovascular: Rate and Rhythm: Normal rate and regular rhythm. Pulmonary: Effort: Pulmonary effort is normal. Breath sounds: Normal breath sounds. Skin: General: Skin is warm and dry. Neurological: Mental Status: He is alert and oriented to person, place, and time. Psychiatric: Mood and Affect: Mood normal. Behavior: Behavior normal. DATA Creatinine Date Value Ref Range Status 12/19/2019 1.47 (H) 0.73 - 1.22 mg/dL Final Hemoglobin A1C (%) Date Value 12/19/2019 7.0 ) No components found for: URINEALBUMIN Cholesterol, Total (mg/dL) Date Value 12/19/2019 162 HDL Cholesterol (mg/dL) Date Value 12/19/2019 49 LDL Cholesterol (mg/dL) Date Value 12/19/2019 94 Triglyceride (mg/dL) Date Value 12/19/2019 95 IMPRESSION: Mr. 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 I do not think the insulin along with metformin is causing him to feel sluggish. I suggest checking his blood sugar at that time to ensure it is not low in whichcase the insulin dose can be modified. Plan: Continue the same diabetes medication. Follow up in 6 months with labs a week prior (E11.42, Z79.4) Type 2 diabetes mellitus with diabetic polyneuropathy, with long-term current use ofinsulin ([facility]) Comment: Glycemic control is improved Plan: Continue the same (E11.22, N18.3, Z79.4) Type 2 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 disease, with long-term current use of insulin ([facility]) Comment: Glycemic control is improved. Plan: continue same Follow up with nephrology as planned (I10) Hypertension goal BP (blood pressure) < 140/90 Comment/Plan: Managed per PCP (E78.5) Hyperlipidemia, unspecified hyperlipidemia type Comment: taking pravastatin Plan: Lipid panel at follow up Chanda Phillips APRN, RECREATION ATTENDANTKacieC, CDE Endocrinology [facility] Medical Office [facility]/[place] [id number] Fax: documented in this encounterBrigitte Parks - 02/14/2020 5:49 AM EDT VASCULAR SURGERY WOUND OSTOMY CONTINENCE CONSULTATION CHIEF COMPLAINT: Wound check and evaluation HISTORY OF PRESENT ILLNESS: LLE laceration re evaluation PAST MEDICAL HISTORY Diagnosis Date ? Anemia in stage 3 chronic kidney disease (HCC) ? Background diabetic retinopathy(362.01) 09/18/2008 [facility]. ? Cataract of left eye ? Chronic kidney disease, unspecified ? CKD (chronic kidney disease) stage 3, GFR 30-59 ml/min ([facility]) 05/26/2017 ? [place]ob[place] of [place] OD ? Depressive disorder, not elsewhere classified ? Erectile dysfunction associated with type 2 diabetes mellitus (HCC) 07/09/2008 ? Esophageal reflux ? Essential hypertension, benign ? Hyperplasia of prostate ? Macular edema dme od ? Other and unspecified hyperlipidemia ? Other specified anemias ? Other specified gastritis without mention of hemorrhage 09/18/2008 ? Personal history of colonic polyps 08/04/2016 ? Primary open angle glaucoma OU ? Proliferative diabetic retinopathy(362.02) ? Pseudophakia of right eye ? Shoulder pain 09/25/2008 Right. ? Tubular adenoma of colon 08/10/2016 ? Type II or unspecified type diabetes mellitus with ophthalmic manifestations, uncontrolled(250.52)09/18/2008 [facility] ? Unspecified asthma(493.90) ? Vitreous hemorrhage of left eye (HCC) PAST SURGICAL HISTORY Procedure Laterality Date ? AVASTIN (BEVACIZUMAB) 1.25MG INTRAVITREAL INJECTION OD (RIGHT EYE) Right 04/19/2018 LAST ? COLONOS W/REM POLYP SNARE 08/04/2016 Repeat 07/2019 ? COLONOSCOP W/ OR W/O [facility] SPEC Colonoscopy ? COLONOSCOPY W/BX 07/25/13 Repeat due 2016 ? EGD W/O OR W/BRUSH/WASH 2002 EGD ? EYE SURGERY HX Right 05/02/2018 Pars plana vitrectomy, membrane peel, endolaser, and air fluid exchange right eye. ? LAPAROSCOPIC CHOLEYCYSTECTOMY Oct.2002 Cholecystectomy, lap ? PANRETINAL PHOTOCOAGULATION (PRP) OD (RIGHT EYE) Right 08/29/2014 LAST ; PRP (Panretinal Photocoagulation) OD ? PANRETINAL PHOTOCOAGULATION (PRP) OS (LEFT EYE) Left 07/12/2013 #2 ; PRP (Panretinal Photocoagulation) OS ? PROSTATECTOMY SUPRAPUBIC SUBTOTAL for BPH ? REMV CATARACT EXTRACAP,INSERT LENS 02/07/2007 Cataract Removal right ? REMV CATARACT EXTRACAP,INSERT LENS Left 11/16/2016 Cataract Extraction with PC IOL OS ? REPAIR ROTATOR CUFF,ACUTE 2008 Rotator cuff repair, Right ? VITRECTOMY,MECHANICAL Left 11/16/2016 PPV/MP/EL/AFX OS ALLERGIES Allergen Reactions ? Cortisone Other: See Comments [place] real hot, as if someone threw boiling water on him ? Zestril [Lisinopril] Intolerance ARF, hypokalemia Social History Tobacco Use ? Smoking status: Former Smoker Types: Cigars ? Smokeless tobacco: Never Used ? Tobacco comment: quit 40 + years ago Substance Use Topics ? Alcohol use: Yes Comment: rarely, 2-3 glasses red wine per month ? Drug use: No FAMILY HISTORY Problem Relation Age of Onset ? Breast Cancer Mother at age 55 ? COPD Father Black lung ? Breast Cancer Sister at age 54 ? Diabetes Brother ? No Ocular Disease No Family History nothing known of MEDICATIONS: linaGLIPtin (TRADJENTA) 5 mg tab Take 1 tablet by mouth once daily. furosemide (LASIX) 40 mg tablet Take 1 tablet by mouth once daily. Blood-Glucose Meter monitoring kit Glucose Meter of Choice - Kit - Dx: Type 2 DM - Uncontrolled E11.65 blood sugar diagnostic (BLOOD GLUCOSE TEST) test strip Test blood sugar(s) 4 times daily. Dx: Type 2DM - Uncontrolled E11.65 Insulin: Yes Lancets lancets Test blood sugar(s) 4 times daily. Dx: Type 2 DM - Uncontrolled E11.65 Insulin: Yes insulin 75/25 lispro protamine/lispro units/mL (HUMALOG MIX 75-25 KWIKPEN) 100 unit/mL (75-25) inpn Inject 20 units breakfast and 20 units dinner metFORMIN ER (GLUCOPHAGE XR) 500 mg 24 hr tablet Take 1 tablet by mouth daily with breakfast. NIFEdipine ER (PROCARDIA XL) 90 mg 24 hr tablet Take 1 tablet by mouth once daily. chlorthalidone (HYGROTON) 25 mg tablet Take 1 tablet by mouth once daily. carvedilol (COREG) 25 mg tablet Take 1.5 tablets by mouth twice daily with meals. cloNIDine HCl (CATAPRES) 0.2 mg tablet Take 1 tablet by mouth twice daily. gabapentin (NEURONTIN) 100 mg capsule Take 2 capsules by mouth daily at bedtime. From podiatry (Dr. Cordon) pravastatin (PRAVACHOL) 80 mg tablet Take 1 tablet by mouth once daily. For cholesterol. diclofenac sodium (VOLTAREN) 1 % topical gel Apply 2 g to affected area four times daily. timolol maleate (TIMOPTIC) 0.5 % ophthalmic solution Use 1 Drop in both eyes twice daily. Use at 6 AM and 6 PM latanoprost (XALATAN) 0.005 % ophthalmic solution Use 1 Drop in both eyes daily at bedtime. Insulin Broad Top, Disposable, (1ST TIER UNIFINE PENTIPS) 31 gauge x 3/16 ndle Use as directed 4 times a day. Dx: E11.65 losartan (COZAAR) 100 mg tablet TAKE 1 TABLET EVERY DAY BY MOUTH cholecalciferol (VITAMIN D) 1,000 unit tab tablet Take 1 tablet by mouth once daily. BD INSULIN PEN NEEDLE UF 31 gauge x 5/16 ndle 1 Applicator as directed. cyanocobalamin (VITAMIN B-12) 1,000 mcg tab Take 1 tablet by mouth once daily. aspirin(ECOTRIN LOW STRENGTH 81 MG TAB) Take one(1) tablet daily. diclofenac sodium (VOLTAREN) 1 % topical gel Apply 2 g to affected area four times daily. REVIEW OF SYSTEMS 12 organ system review was performed with these findings: No change from prior assessment Exceptions: Integumentary: See below Nutritional Status Appetite: good Diet: Regular Albumin/Prealbumin levels: Lab Results Component Value Date ALB 3.8 (L) 12/19/2019 PHYSICAL EXAMINATION Constitutional: Appears about stated age, well nourished, no weight loss, no fevers and no chills. Psych: Alert and oriented to person, place and time. Intact memory. Normal limit affect, judgement and insight. Respiratory: Symmetrical expansion and effort. No cough, no shortness of breath. Cardiovascular: No chest pain. No edema. Neuro: Normal limit cranial nerves. Musculoskeletal: Normal limit gait. Normal limit symmetry. Normal limit range of motion. Normal limit muscle strength. Normal limit tone of all extremities. Integumentary: Normal skin color, texture and turgor. No dry, scaly or cracked skin. No ecchymotic areas. No friable skin. No rash, lesions, excoriations or black. No diaphoresis. No jaundice, no ruddiness, no skin pallor. LLE laceration; scar tissue through center proximal = 0.2 cm x 0.3 cm x <0.25 cm yellow dry tissue and distal 0.2 cm x 0.1 cm x 0 cm red dry scab, no odor or drainage, no s/s of infection Eyes: Pupils are equal, round and reactive to light. Ears: Normal limit hearing. Nose/Mouth/Throat: Normal limit external ear canals and TM. Normal limit teeth, lips and gums. Neck: Normal limit appearance and movements. Trachea midline. Breast: Not assessed. Lymphatic: Not assessed. Abdominal: Not assessed. WOUND PAIN: No pain or discomfort DATA REVIEWED: Chart reviewed. ASSESSMENT/PLAN/TREATMENT RECOMMENDATIONS Apply foam dressing to wound base. Change every 3-5 days. Education provided Treatment demonstrated Questions answered I have spent 15 minutes with the patient for physical and wound assessment, wound cleaning, dressingdemonstration and answering questions. More than 50% of the time spent with the patient included education/counselling/coordination of care. Brigitte Parks, PhD, WOCN, CNP documented in this encounterBrigitte Parks - 02/14/2020 5:49 AM EDT VASCULAR SURGERY WOUND OSTOMY CONTINENCE CONSULTATION CHIEF COMPLAINT: Wound check and evaluation HISTORY OF PRESENT ILLNESS: LLE laceration re evaluation PAST MEDICAL HISTORY Diagnosis Date ? Anemia in stage 3 chronic kidney disease (HCC) ? Background diabetic retinopathy(362.01) 09/18/2008 [facility] eye. ? Cataract of left eye ? Chronic kidney disease, unspecified ? CKD (chronic kidney disease) stage 3, GFR 30-59 ml/min ([facility]) 05/26/2017 ? [place]ob[place] of [place] OD ? Depressive disorder, not elsewhere classified ? Erectile dysfunction associated with type 2 diabetes mellitus (HCC) 07/09/2008 ? Esophageal reflux ? Essential hypertension, benign ? Hyperplasia of prostate ? Macular edema dme od ? Other and unspecified hyperlipidemia ? Other specified anemias ? Other specified gastritis without mention of hemorrhage 09/18/2008 ? Personal history of colonic polyps 08/04/2016 ? Primary open angle glaucoma OU ? Proliferative diabetic retinopathy(362.02) ? Pseudophakia of right eye ? Shoulder pain 09/25/2008 Right. ? Tubular adenoma of colon 08/10/2016 ? Type II or unspecified type diabetes mellitus with ophthalmic manifestations, uncontrolled(250.52)09/18/2008 [facility] ? Unspecified asthma(493.90) ? Vitreous hemorrhage of left eye (HCC) PAST SURGICAL HISTORY Procedure Laterality Date ? AVASTIN (BEVACIZUMAB) 1.25MG INTRAVITREAL INJECTION OD (RIGHT EYE) Right 04/19/2018 LAST ? COLONOS W/REM POLYP SNARE 08/04/2016 Repeat 07/2019 ? COLONOSCOP W/ OR W/O [facility] SPEC Colonoscopy ? COLONOSCOPY W/BX 07/25/13 Repeat due 2016 ? EGD W/O OR W/BRUSH/WASH 2002 EGD ? EYE SURGERY HX Right 05/02/2018 Pars plana vitrectomy, membrane peel, endolaser, and air fluid exchange right eye. ? LAPAROSCOPIC CHOLEYCYSTECTOMY Oct Cholecystectomy, lap ? PANRETINAL PHOTOCOAGULATION (PRP) OD (RIGHT EYE) Right 08/29/2014 LAST ; PRP (Panretinal Photocoagulation) OD ? PANRETINAL PHOTOCOAGULATION (PRP) OS (LEFT EYE) Left 07/12/2013 #2 ; PRP (Panretinal Photocoagulation) OS ? PROSTATECTOMY SUPRAPUBIC SUBTOTAL for BPH ? REMV CATARACT EXTRACAP,INSERT LENS 02/07/2007 Cataract Removal right ? REMV CATARACT EXTRACAP,INSERT LENS Left 11/16/2016 Cataract Extraction with PC IOL OS ? REPAIR ROTATOR CUFF,ACUTE 2008 Rotator cuff repair, Right ? VITRECTOMY,MECHANICAL Left 11/16/2016 PPV/MP/EL/AFX OS ALLERGIES Allergen Reactions ? Cortisone Other: See Comments [place] real hot, as if someone threw boiling water on him ? Zestril [Lisinopril] Intolerance ARF, hypokalemia Social History Tobacco Use ? Smoking status: Former Smoker Types: Cigars ? Smokeless tobacco: Never Used ? Tobacco comment: quit 40 + years ago Substance Use Topics ? Alcohol use: Yes Comment: rarely, 2-3 glasses red wine per month ? Drug use: No FAMILY HISTORY Problem Relation Age of Onset ? Breast Cancer Mother at age 55 ? COPD Father Black lung ? Breast Cancer Sister at age 54 ? Diabetes Brother ? No Ocular Disease No Family History nothing known of MEDICATIONS: linaGLIPtin (TRADJENTA) 5 mg tab Take 1 tablet by mouth once daily. furosemide (LASIX) 40 mg tablet Take 1 tablet by mouth once daily. Blood-Glucose Meter monitoring kit Glucose Meter of Choice - Kit - Dx: Type 2 DM - Uncontrolled blood sugar diagnostic (BLOOD GLUCOSE TEST) test strip Test blood sugar(s) 4 times daily. Dx: Type 2DM - Uncontrolled . Insulin: Yes Lancets lancets Test blood sugar(s) 4 times daily. Dx: Type 2 DM - Uncontrolled . Insulin: Yes insulin 75/25 lispro protamine/lispro units/mL (HUMALOG MIX 75-25 KWIKPEN) 100 unit/mL (75-25) inpn Inject 20 units breakfast and 20 units dinner metFORMIN ER (GLUCOPHAGE XR) 500 mg 24 hr tablet Take 1 tablet by mouth daily with breakfast. NIFEdipine ER (PROCARDIA XL) 90 mg 24 hr tablet Take 1 tablet by mouth once daily. chlorthalidone (HYGROTON) 25 mg tablet Take 1 tablet by mouth once daily. carvedilol (COREG) 25 mg tablet Take 1.5 tablets by mouth twice daily with meals. cloNIDine HCl (CATAPRES) 0.2 mg tablet Take 1 tablet by mouth twice daily. gabapentin (NEURONTIN) 100 mg capsule Take 2 capsules by mouth daily at bedtime. From podiatry (Dr. Cordon) pravastatin (PRAVACHOL) 80 mg tablet Take 1 tablet by mouth once daily. For cholesterol. diclofenac sodium (VOLTAREN) 1 % topical gel Apply 2 g to affected area four times daily. timolol maleate (TIMOPTIC) 0.5 % ophthalmic solution Use 1 Drop in both eyes twice daily. Use at 6 AM and 6 PM latanoprost (XALATAN) 0.005 % ophthalmic solution Use 1 Drop in both eyes daily at bedtime. Insulin Broad Top, Disposable, (1ST TIER UNIFINE PENTIPS) 31 gauge x 3/16 ndle Use as directed 4 times a day. Dx: E11.65 losartan (COZAAR) 100 mg tablet TAKE 1 TABLET EVERY DAY BY MOUTH cholecalciferol (VITAMIN D) 1,000 unit tab tablet Take 1 tablet by mouth once daily. BD INSULIN PEN NEEDLE UF 31 gauge x 5/16 ndle 1 Applicator as directed. cyanocobalamin (VITAMIN B-12) 1,000 mcg tab Take 1 tablet by mouth once daily. aspirin(ECOTRIN LOW STRENGTH 81 MG TAB) Take one(1) tablet daily. diclofenac sodium (VOLTAREN) 1 % topical gel Apply 2 g to affected area four times daily. REVIEW OF SYSTEMS 12 organ system review was performed with these findings: No change from prior assessment Exceptions: Integumentary: See below Nutritional Status Appetite: good Diet: Regular Albumin/Prealbumin levels: Lab Results Component Value Date ALB 3.8 (L) 12/19/2019 PHYSICAL EXAMINATION Constitutional: Appears about stated age, well nourished, no weight loss, no fevers and no chills. Psych: Alert and oriented to person, place and time. Intact memory. Normal limit affect, judgement and insight. Respiratory: Symmetrical expansion and effort. No cough, no shortness of breath. Cardiovascular: No chest pain. No edema. Neuro: Normal limit cranial nerves. Musculoskeletal: Normal limit gait. Normal limit symmetry. Normal limit range of motion. Normal limit muscle strength. Normal limit tone of all extremities. Integumentary: Normal skin color, texture and turgor. No dry, scaly or cracked skin. No ecchymotic areas. No friable skin. No rash, lesions, excoriations or black. No diaphoresis. No jaundice, no ruddiness, no skin pallor. LLE laceration; scar tissue through center proximal = 0.2 cm x 0.3 cm x <0.25 cm yellow dry tissue and distal 0.2 cm x 0.1 cm x 0 cm red dry scab, no odor or drainage, no s/s of infection Eyes: Pupils are equal, round and reactive to light. Ears: Normal limit hearing. Nose/Mouth/Throat: Normal limit external ear canals and TM. Normal limit teeth, lips and gums. Neck: Normal limit appearance and movements. Trachea midline. Breast: Not assessed. Lymphatic: Not assessed. Abdominal: Not assessed. WOUND PAIN: No pain or discomfort DATA REVIEWED: Chart reviewed. ASSESSMENT/PLAN/TREATMENT RECOMMENDATIONS Apply foam dressing to wound base. Change every 3-5 days. Education provided Treatment demonstrated Questions answered I have spent 15 minutes with the patient for physical and wound assessment, wound cleaning, dressingdemonstration and answering questions. More than 50% of the time spent with the patient included education/counselling/coordination of care. Brigitte Parks, PhD, WOCN, CNP documented in this encounterAdia Finnegan - 03/06/2020 11:27 AM EDT 1. Insulin dependent Diabetes Mellitus - Hba1c = Hemoglobin A1C (%) Date Value 12/19/2019 7.0 - Stressed blood pressure and blood sugar control and close follow-up with PCP/pointer helper 2. Q Proliferative diabetic retinopathy Both Eyes - RIGHT: - s/p Panretinal laser photocoagulation #5 (last 08/29/14, 08/08/14, 10/04/13, 07/05/13, 04/05/13) - s/p Avastin #3?(last 04/19/18, 03/23/18,?02/17/17) - s/p Pars plana vitrectomy/EL (05/02/18) - OCT: atrophy, non foveal edema - Observe - LEFT: - s/p Panretinal laser photocoagulation #2 (07/12/13, 03/29/13) - s/p?Phaco/PCIOL/PPV/MP/EL/FAx (11/16/16) - OCT with extrafoveal IRF and ERM - Plan = Observe 4. 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 Wilson, continue timolol and latan I have confirmed and edited as necessary the relevant ophthalmic history, ROS, and the clinical/neuro exam findings as obtained by others. I have seen and examined this patient. I have discussed the case and the management of this patient's care with the Resident/Fellow, if applicable. I also have reviewed and agree with the assessment and plan as stated above and agree with all of its relevant components on 03/06/2020 Adia Finnegan MD [facility] Cent[facility] Chair of Ophthalmology Research Professor of Ophthalmology, [facility], [facility] documented in this encounterBraceBrigitte - 03/13/2020 4:32 PM EDT VASCULAR SURGERY WOUND OSTOMY CONTINENCE CONSULTATION CHIEF COMPLAINT: Wound check and evaluation HISTORY OF PRESENT ILLNESS: LLE laceration PAST MEDICAL HISTORY Diagnosis Date ? Anemia in stage 3 chronic kidney disease (HCC) ? Background diabetic retinopathy(362.01) 09/18/2008 [facility] eye. ? Cataract of left eye ? Chronic kidney disease, unspecified ? CKD (chronic kidney disease) stage 3, GFR 30-59 ml/min ([facility]) 05/26/2017 ? Coloboma of iris OD ? Depressive disorder, not elsewhere classified ? Erectile dysfunction associated with type 2 diabetes mellitus (HCC) 07/09/2008 ? Esophageal reflux ? Essential hypertension, benign ? Hyperplasia of prostate ? Macular edema dme od ? Other and unspecified hyperlipidemia ? Other specified anemias ? Other specified gastritis without mention of hemorrhage 09/18/2008 ? Personal history of colonic polyps 08/04/2016 ? Primary open angle glaucoma OU ? Proliferative diabetic retinopathy(362.02) ? Pseudophakia of right eye ? Shoulder pain 09/25/2008 Right. ? Tubular adenoma of colon 08/10/2016 ? Type II or unspecified type diabetes mellitus with ophthalmic manifestations, uncontrolled(250.52)09/18/2008 [facility] ? Unspecified asthma(493.90) ? Vitreous hemorrhage of left eye (HCC) PAST SURGICAL HISTORY Procedure Laterality Date ? AVASTIN (BEVACIZUMAB) 1.25MG INTRAVITREAL INJECTION OD (RIGHT EYE) Right 04/19/2018 LAST ? COLONOS W/REM POLYP SNARE 08/04/2016 Repeat 07/2019 ? COLONOSCOP W/ OR W/O [facility] SPEC Colonoscopy ? COLONOSCOPY W/BX 07/25/13 Repeat due 2016 ? EGD W/O OR W/BRUSH/WASH 2002 EGD ? EYE SURGERY HX Right 05/02/2018 Pars plana vitrectomy, membrane peel, endolaser, and air fluid exchange right eye. ? LAPAROSCOPIC CHOLEYCYSTECTOMY Cholecystectomy, lap ? PANRETINAL PHOTOCOAGULATION (PRP) OD (RIGHT EYE) Right 08/29/2014 LAST ; PRP (Panretinal Photocoagulation) OD ? PANRETINAL PHOTOCOAGULATION (PRP) OS (LEFT EYE) Left 07/12/2013 #2 ; PRP (Panretinal Photocoagulation) OS ? PROSTATECTOMY SUPRAPUBIC SUBTOTAL for BPH ? REMV CATARACT EXTRACAP,INSERT LENS 02/07/2007 Cataract Removal right ? REMV CATARACT EXTRACAP,INSERT LENS Left 11/16/2016 Cataract Extraction with PC IOL OS ? REPAIR ROTATOR CUFF,ACUTE 2008 Rotator cuff repair, Right ? VITRECTOMY,MECHANICAL Left 11/16/2016 PPV/MP/EL/AFX OS ALLERGIES Allergen Reactions ? Cortisone Other: See Comments [place] real hot, as if someone threw boiling water on him ? Zestril [Lisinopril] Intolerance ARF, hypokalemia Social History Tobacco Use ? Smoking status: Former Smoker Types: Cigars ? Smokeless tobacco: Never Used ? Tobacco comment: quit 40 + years ago Substance Use Topics ? Alcohol use: Yes Comment: rarely, 2-3 glasses red wine per month ? Drug use: No FAMILY HISTORY Problem Relation Age of Onset ? Breast Cancer Mother at age 55 ? COPD Father Black lung ? Breast Cancer Sister at age 54 ? Diabetes Brother ? No Ocular Disease No Family History nothing known of MEDICATIONS: losartan (COZAAR) 100 mg tablet TAKE 1 TABLET EVERY DAY BY MOUTH timoloL maleate (TIMOPTIC) 0.5 % ophthalmic solution INSTILL 1 DROP IN BOTH EYES TWICE A DAY (USE AT6 A.M. AND 6 P.M.) linaGLIPtin (TRADJENTA) 5 mg tab Take 1 tablet by mouth once daily. diclofenac sodium (VOLTAREN) 1 % topical gel Apply 2 g to affected area four times daily. furosemide (LASIX) 40 mg tablet Take 1 tablet by mouth once daily. blood sugar diagnostic (BLOOD GLUCOSE TEST) test strip Test blood sugar(s) 4 times daily. Dx: Type 2DM - Uncontrolled E11.65 Insulin: Yes Lancets lancets Test blood sugar(s) 4 times daily. Dx: Type 2 DM - Uncontrolled Insulin: Yes insulin 75/25 lispro protamine/lispro units/mL (HUMALOG MIX 75-25 KWIKPEN) 100 unit/mL (75-25) inpn Inject 20 units breakfast and 20 units dinner metFORMIN ER (GLUCOPHAGE XR) 500 mg 24 hr tablet Take 1 tablet by mouth daily with breakfast. NIFEdipine ER (PROCARDIA XL) 90 mg 24 hr tablet Take 1 tablet by mouth once daily. chlorthalidone (HYGROTON) 25 mg tablet Take 1 tablet by mouth once daily. carvedilol (COREG) 25 mg tablet Take 1.5 tablets by mouth twice daily with meals. cloNIDine HCl (CATAPRES) 0.2 mg tablet Take 1 tablet by mouth twice daily. gabapentin (NEURONTIN) 100 mg capsule Take 2 capsules by mouth daily at bedtime. From podiatry (Dr. Cordon) pravastatin (PRAVACHOL) 80 mg tablet Take 1 tablet by mouth once daily. For cholesterol. diclofenac sodium (VOLTAREN) 1 % topical gel Apply 2 g to affected area four times daily. latanoprost (XALATAN) 0.005 % ophthalmic solution Use 1 Drop in both eyes daily at bedtime. Insulin Broad Top, Disposable, (1ST TIER UNIFINE PENTIPS) 31 gauge x 3/16 ndle Use as directed 4 times a day. Dx: cholecalciferol (VITAMIN D) 1,000 unit tab tablet Take 1 tablet by mouth once daily. BD INSULIN PEN NEEDLE UF 31 gauge x 5/16 ndle 1 Applicator as directed. cyanocobalamin (VITAMIN B-12) 1,000 mcg tab Take 1 tablet by mouth once daily. aspirin(ECOTRIN LOW STRENGTH 81 MG TAB) Take one(1) tablet daily. Blood-Glucose Meter monitoring kit Glucose Meter of Choice - Kit - Dx: Type 2 DM - Uncontrolled REVIEW OF SYSTEMS 12 organ system review was performed with these findings: No change from prior assessment Exceptions: Integumentary: See below Nutritional Status Appetite: good Diet: Regular Albumin/Prealbumin levels: Lab Results Component Value Date ALB 3.8 (L) 12/19/2019 PHYSICAL EXAMINATION Constitutional: Appears about stated age, well nourished, no weight loss, no fevers and no chills. Psych: Alert and oriented to person, place and time. Intact memory. Normal limit affect, judgement and insight. Respiratory: Symmetrical expansion and effort. No cough, no shortness of breath. Cardiovascular: No chest pain. No edema. Neuro: Normal limit cranial nerves. Musculoskeletal: Normal limit gait. Normal limit symmetry. Normal limit range of motion. Normal limit muscle strength. Normal limit tone of all extremities. Integumentary: Normal skin color, texture and turgor. No dry, scaly or cracked skin. No ecchymotic areas. No friable skin. No rash, lesions, excoriations or black. No diaphoresis. No jaundice, no ruddiness, no skin pallor. LLE laceration - healed Eyes: Pupils are equal, round and reactive to light. Ears: Normal limit hearing. Nose/Mouth/Throat: Normal limit external ear canals and TM. Normal limit teeth, lips and gums. Neck: Normal limit appearance and movements. Trachea midline. Breast: Not assessed. Lymphatic: Not assessed. Abdominal: Not assessed. WOUND PAIN: No pain or discomfort DATA REVIEWED: Chart reviewed. ASSESSMENT/PLAN/TREATMENT RECOMMENDATIONS Apply A&D ointment to scar tissue for protection daily Education provided Treatment demonstrated Questions answered I have spent 15 minutes with the patient for physical and wound assessment, wound cleaning, dressingdemonstration and answering questions. More than 50% of the time spent with the patient included education/counselling/coordination of care. Brigitte Parks, PhD, WOCN, CNP documented in this encounterMarisa Marlow (Network Navigator) - 04/01/2020 1:53 PM EDT POPULATION HEALTH NAVIGATION OUTREACH Action/FYI ACO Care Gap Outreach LMOVM Care Gaps needed are listed in below note. Encounter closed. Contact made with patient? NO Pt identified by name and : NO Outreach Outcome/Action Unable to reach patient: Left message Reason for Outreach Care Gap Payer: Payor: MEDICARE / Plan: MEDICARE A AND B / Product Type: Medicare / Care Gap Addressed: Controlling Blood Pressure Colorectal Cancer Screening HBA1C Reminder: Please only focus on orders for the HEDIS items above Health Maintenance items due: ADVANCE DIRECTIVE DISCUSSION due on 02/07/2012 SHINGRIX VACCINE(2 of 3) due on 06/10/2014 COLONOSCOPY due on 08/04/2019 INFLUENZA(1) due on 02/26/2020 DIABETIC FOOT EXAM due on 04/28/2020 Referrals: N/A Message Sent to Practice: NO Navigation Signature: SIDNEY Schumacher April 01, 2020 1:53 PM Marisa Santosator) - 03/28/2020 3:34 PM EDT POPULATION HEALTH NAVIGATION OUTREACH Action/FYI ACO Care Gap Outreach LMOVM Last PCP visit: 10/04/2019 BP: 156/69 Return visit recommended: 4 mos Next Scheduled PCP visit: 04/22/2020 Care Gaps needed are listed in below note. Contact made with patient? NO Pt identified by name and : NO Outreach Outcome/Action Unable to reach patient: Left message Reason for Outreach Care Gap Payer: Payor: MEDICARE / Plan: MEDICARE A AND B / Product Type: Medicare / Care Gap Addressed: Controlling Blood Pressure Colorectal Cancer Screening HBA1C Reminder: Please only focus on orders for the HEDIS items above Health Maintenance items due: ADVANCE DIRECTIVE DISCUSSION due on 02/07/2012 SHINGRIX VACCINE(2 of 3) due on 06/10/2014 COLONOSCOPY due on 08/04/2019 INFLUENZA(1) due on 02/26/2020 DIABETIC FOOT EXAM due on 04/28/2020 Referrals: N/A Message Sent to Practice: NO Navigation Signature: SIDNEY Schumacher March 28, 2020 3:34 PM documented in this encounterMichelle William) - 04/07/2020 10:07 AM EDT Michelle William PA-C Department of Orthopaedics Orthopaedics [address] [facility] [address] Dept: [phone] Dept April 07, 2020 CHIEF COMPLAINT: Follow Up of the Left Elbow and 8 weeks 6 days post visit david bursitis left elbow Mr. Shirin West Sr. is a 75 year old male he presents with resolved left elbow swelling. Patient states that a few months ago his left elbow became very swollen, it was not painful but the swelling was bothersome to him. We had him try some topical tear and an apply a compression sleeve to the elbow.We also discussed having him avoid resting the elbow on hard surfaces. Patient cannot tolerate NSAIDs secondary to chronic kidney disease. He is a diabetic, his last hemoglobin A1c was 7.0 in November. He is retired and enjoys being active. ASSESSMENT: M70.22 Olecranon bursitis of left elbow (primary encounter diagnosis) PLAN: The swelling did resolve with conservative treatment. We discussed only trying the topical if he feels the swelling has returned. We also discussed signs and symptoms of infection. Follow-up as needed. Mr. Shirin West Sr. was advised as to contrast therapies and/or to take analgesics/anti-inflammatories as needed and all contraindications were reviewed. OBJECTIVE: Mr. Shirin West Sr. is a pleasant 75 year old in no apparent distress. Gen:There were no vitals taken for this visit. nl development, non obese, no deformities ENT: Normocephalic, normal hearing, moist mucosa CV: Pulses:Radial= 2+ and symmetric, capillary refill < 2 secs, no peripheral edema/varicosities Skin: no rash, bruising or lesions. Good turgor. Psych: cooperative and appropriate, alert and oriented x 3, good mood and affect. Musculoskeletal: Left elbow with no swelling in the olecranon bursa. Elbow is nontender to the touch. Patient has full and active range of motion of the elbow. Sensation is intact. Imaging: Deferred today Supporting Subjective Information Below: Past Surgical History: PAST SURGICAL HISTORY Procedure Laterality Date ? AVASTIN (BEVACIZUMAB) 1.25MG INTRAVITREAL INJECTION OD (RIGHT EYE) Right 04/19/2018 LAST ? COLONOS W/REM POLYP SNARE 08/04/2016 Repeat 07/2019 ? COLONOSCOP W/ OR W/O [facility] SPEC Colonoscopy ? COLONOSCOPY W/BX 07/25/13 Repeat due 2016 ? EGD W/O OR W/BRUSH/WASH 2002 EGD ? EYE SURGERY HX Right 05/02/2018 Pars plana vitrectomy, membrane peel, endolaser, and air fluid exchange right eye. ? LAPAROSCOPIC CHOLEYCYSTECTOMY Oct.2002 Cholecystectomy, lap ? PANRETINAL PHOTOCOAGULATION (PRP) OD (RIGHT EYE) Right 08/29/2014 LAST ; PRP (Panretinal Photocoagulation) OD ? PANRETINAL PHOTOCOAGULATION (PRP) OS (LEFT EYE) Left 07/12/2013 #2 ; PRP (Panretinal Photocoagulation) OS ? PROSTATECTOMY SUPRAPUBIC SUBTOTAL for BPH ? REMV CATARACT EXTRACAP,INSERT LENS 02/07/2007 Cataract Removal right ? REMV CATARACT EXTRACAP,INSERT LENS Left 11/16/2016 Cataract Extraction with PC IOL OS ? REPAIR ROTATOR CUFF,ACUTE 2008 Rotator cuff repair, Right ? VITRECTOMY,MECHANICAL Left 11/16/2016 PPV/MP/EL/AFX OS Medications: Current Outpatient Medications Medication Sig ? losartan (COZAAR) 100 mg tablet TAKE 1 TABLET EVERY DAY BY MOUTH ? timoloL maleate (TIMOPTIC) 0.5 % ophthalmic solution INSTILL 1 DROP IN BOTH EYES TWICE A DAY (USE AT 6 A.M. AND 6 P.M.) ? linaGLIPtin (TRADJENTA) 5 mg tab Take 1 tablet by mouth once daily. ? diclofenac sodium (VOLTAREN) 1 % topical gel Apply 2 g to affected area four times daily. ? furosemide (LASIX) 40 mg tablet Take 1 tablet by mouth once daily. ? blood sugar diagnostic (BLOOD GLUCOSE TEST) test strip Test blood sugar(s) 4 times daily. Dx: Type2 DM - Uncontrolled E11.65 Insulin: Yes ? Lancets lancets Test blood sugar(s) 4 times daily. Dx: Type 2 DM - Uncontrolled E11.65 Insulin: Yes ? insulin 75/25 lispro protamine/lispro units/mL (HUMALOG MIX 75-25 KWIKPEN) 100 unit/mL (75-25) inpn Inject 20 units breakfast and 20 units dinner ? metFORMIN ER (GLUCOPHAGE XR) 500 mg 24 hr tablet Take 1 tablet by mouth daily with breakfast. ? NIFEdipine ER (PROCARDIA XL) 90 mg 24 hr tablet Take 1 tablet by mouth once daily. ? chlorthalidone (HYGROTON) 25 mg tablet Take 1 tablet by mouth once daily. ? carvedilol (COREG) 25 mg tablet Take 1.5 tablets by mouth twice daily with meals. ? cloNIDine HCl (CATAPRES) 0.2 mg tablet Take 1 tablet by mouth twice daily. ? gabapentin (NEURONTIN) 100 mg capsule Take 2 capsules by mouth daily at bedtime. From podiatry (Dr. Cordon) ? pravastatin (PRAVACHOL) 80 mg tablet Take 1 tablet by mouth once daily. For cholesterol. ? diclofenac sodium (VOLTAREN) 1 % topical gel Apply 2 g to affected area four times daily. ? latanoprost (XALATAN) 0.005 % ophthalmic solution Use 1 Drop in both eyes daily at bedtime. ? Insulin Broad Top, Disposable, (1ST TIER UNIFINE PENTIPS) 31 gauge x 3/16 ndle Use as directed 4 times a day. Dx: E11.65 ? cholecalciferol (VITAMIN D) 1,000 unit tab tablet Take 1 tablet by mouth once daily. ? BD INSULIN PEN NEEDLE UF 31 gauge x 5/16 ndle 1 Applicator as directed. ? cyanocobalamin (VITAMIN B-12) 1,000 mcg tab Take 1 tablet by mouth once daily. ? aspirin(ECOTRIN LOW STRENGTH 81 MG TAB) Take one(1) tablet daily. ? Blood-Glucose Meter monitoring kit Glucose Meter of Choice - Kit - Dx: Type 2 DM - Uncontrolled E11.65 No current facility-administered medications for this visit. Allergies: Cortisone and Zestril [Lisinopril] ROS: General (negative for fatigue, malaise, weight loss/gain) HEENT (negative for headache, earache, recent vision changes, sinus pain, sore throat) Respiratory (no recent shortness of breath, hemoptysis) CV (negative for chest tightness, palpitations) Musculoskeletal (see HPI) Psych (no depression, anxiety) This note was partially generated using [employer] voice recognition system, and there may be some incorrect words, spellings, and punctuation that were not noted in checking the note before saving. 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 Has an dallin wrap to wrap his elbow. Has been applying Voltaren gel as needed. 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, with long-term current use of insulin ([facility]) Hypertension goal BP (blood pressure) < 140/90 Unspecified essential hypertension Hyperlipidemia, unspecified hyperlipidem ia type Diagnosis Retinal edema Diagnosis Olecranon bursitis of left elbow - Prima ry Olecranon bursitis Advance Directives No Advanced Directives Records Found Documents on File Type Date Recorded 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 Continue the same diabetes medication. 2. Follow up in 6 months with labs a week prior Chanda Phillips APRN, NP-C, CDE Endocrinology [facility] Medical Office [facility]/[place] [address] Fax: documented in this encounter Medications Administered Section Active Administered Medications - up to 3 most recent administrations Medication Order MAR Action Action Date Dose Rate Site PHENYLephrine 2.5 % 1 Drop Given 03/06/2020 10:00 AM EDT 1 Drop (AK-DILATE, PATI-SYNEPHRINE) 1 Drop, BOTH EYES, DIRECTED, Starting Juanita 03/06/20 at 1000, Until Juanita 03/06/20 at 2159, Administer for dilation PROTECT FROM LIGHT, [facility] MED ORDERS proparacaine 0.5 % 1 Drop (ALCAINE) Given 03/06/2020 10:00 AM EDT 1 Drop 1 Drop, BOTH EYES, DIRECTED, Starting Juanita 03/06/20 at 1000, Until Juanita 03/06/20 at 2159, Administer for pneumo tonometry, tonopen tonometry, or pachymetry. In the event of a proparacaine shortage, administer 1 drop of tetracaine 0.5% ophthalmic drops into both eyes as directed for pneumo tonometry, tonopen tonometry, or pachymetry, [facility] MED ORDERS tropicamide 1 % 1 Drop (MYDRIACYL) Given 03/06/2020 10:00 AM EDT 1 Drop 1 Drop, BOTH EYES, DIRECTED, Starting Juanita 03/06/20 at 1000, Until Juanita 03/06/20 at 2159, Administer for dilation, [facility] MED ORDERS Additional Source Comments FOR RECORDS PERTAINING TO PATIENTS WHO ARE OR HAVE BEEN ENROLLED IN A CHEMICAL DEPENDENCY/SUBSTANCE ABUSE PROGRAM, SOME INFORMATION MAY BE OMITTED. This clinical summary was aggregated from multiple sources. Caution should be exercised in using it in the provision of clinical care. This summary normalizes information from multiple sources, and as a consequence, information in this document may materially changethe coding, format and clinical context of patient data. In addition, data may be omittedin some cases. CLINICAL DECISIONS SHOULD BE BASED ON THE PRIMARY CLINICAL RECORDS. [facility] provides no warranty or guarantee of the accuracy or completeness of information in this document. UNRECOGNIZED CONTENT PROVIDED BELOW FOR UNRECOGNIZED SECTION Source Comments In the event this information is protected by the Federal Confidentiality of Alcohol and Drug Abuse Patient Records regulations: The Federal rules restrict any use of the information to criminally investigate or prosecute any alcohol or drug abuse patient.[facility] SystemIn the event this information is protected by the Federal Confidentiality of Alcohol and Drug Abuse Patient Records regulations: The Federal rules restrict any use of the information to criminally investigate or prosecute any alcohol or drug abuse patient.[facility] SystemIn the event this information is protected by the Federal Confidentiality of Alcohol and Drug Abuse Patient Records regulations: The Federal rules restrict any use of the information to criminally investigate or prosecute any alcohol or drug abuse patient.[facility] SystemIn the event this information is protected by the Federal Confidentiality of Alcohol and Drug Abuse Patient Records regulations: The Federal rules restrict any use of the information to criminally investigate or prosecute any alcohol or drug abuse patient.[facility] SystemIn the event this information is protected by the Federal Confidentiality of Alcohol and Drug Abuse Patient Records regulations: The Federal rules restrict any use of the information to criminally investigate or prosecute any alcohol or drug abuse patient.[facility] SystemIn the event this information is protected by the Federal Confidentiality of Alcohol and Drug Abuse Patient Records regulations: The Federal rules restrict any use of the information to criminally investigate or prosecute any alcohol or drug abuse patient.[facility] SystemIn the event this information is protected by the Federal Confidentiality of Alcohol and Drug Abuse Patient Records regulations: The Federal rules restrict any use of the information to criminally investigate or prosecute any alcohol or drug abuse patient.[facility] SystemIn the event this information is protected by the Federal Confidentiality of Alcohol and Drug Abuse Patient Records regulations: The Federal rules restrict any use of the information to criminally investigate or prosecute any alcohol or drug abuse patient.[facility] SystemIn the event this information is protected by the Federal Confidentiality of Alcohol and Drug Abuse Patient Records regulations: The Federal rules restrict any use of the information to criminally investigate or prosecute any alcohol or drug abuse patient.[facility] SystemIn the event this information is protected by the Federal Confidentiality of Alcohol and Drug Abuse Patient Records regulations: The Federal rules restrict any use of the information to criminally investigate or prosecute any alcohol or drug abuse patient.[facility] SystemIn the event this information is protected by the Federal Confidentiality of Alcohol and Drug Abuse Patient Records regulations: The Federal rules restrict any use of the information to criminally investigate or prosecute any alcohol or drug abuse patient.[facility] UNRECOGNIZED CONTENT PROVIDED BELOW FOR UNRECOGNIZED SECTION Reason for Visit Reason Comments Established Patient Reason Comments Diabetes Reason Comments Refill Request Reason Comments Diabetic Eye Exam Reason Onset Date Comments Appointment 03/17/2020 Reason Onset Date Comments Population Health Navigation Outreach 03/28/2020 [facility] Outreach Reason Comments 8 weeks 6 days post visit olecranon bursitis left elbo w Follow Up UNRECOGNIZED CONTENT PROVIDED BELOW FOR UNRECOGNIZED SECTION No Status Records FoundNo Status Records FoundNo Status Records FoundNo Status Records Found UNRECOGNIZED CONTENT PROVIDED BELOW FOR UNRECOGNIZED SECTION INFORMATION SOURCE DATE CREATED AUTHOR AUTHOR'S ORGANIZATIO N 12/16/2017 [facility] DATE CREATED AUTHOR AUTHOR'S ORGANIZATIO N 01/26/2020 [facility] DATE CREATED AUTHOR AUTHOR'S ORGANIZATIO N 12/19/2017 [facility] DATE CREATED AUTHOR AUTHOR'S ORGANIZATIO N 04/07/2020 [facility] UNRECOGNIZED CONTENT PROVIDED BELOW FOR UNRECOGNIZED SECTION Miscellaneous Notes Telephone Encounter - Roma Hawkins LPN - 03/20/2020 3:59 PM EDTPatient has conflict and is not able to come 04/12, he has agreed to keep his appt. 04/22/2020. Roma Hawkins LPN Telephone Encounter - Roma Hawkins LPN - 03/17/2020 3:19 PM EDTLeft message for Patient to call office re: appt. Scheduled Patient for 04/12/2020. Roma Hawkins LPN Telephone Encounter - Markus Uriarte - 03/17/2020 8:26 AM EDTPatient called regarding 03/18 appointment with [facility]. Patient stated he had no knowledge of appointment being moved from 03/26 with PCP. Patient stated he has an appointment conflict and needed to reschedule 03/18 office visit. This PSS scheduled patient next available with [facility] for 04/22. Patient asked ifthere is any way he could be seen sooner by PCP as he was not informed of original appointment change. Please advise patient. documented in this encounter
--- OUTSIDE RECORDS SUMMARY | 2020-04-13 09:23 | XMS RPT_ITS | CCD ---
:1945 External Reference #:[id number] Author Organization [facility] Care Team Providers Name Role Phone Jesse Glover Primary Care Provider JUAREZ, E Unavailable Unavailable JUAREZ, E Unavailable Unavailable JUAREZ Unavailable Unavailable JUAREZ Unavailable Unavailable Glover Unavailable Unavailable JUAREZ Unavailable Unavailable JUAREZ Unavailable Unavailable Adalberto Unavailable Unavailable Allergies Reported Allergen Reaction(s) Severity Date of Onset Location Cortisone Other: See Comments 05-09-2009 - [facility]: [facility] CORTISONE, CORTISONE] (22387 ) Lisinopril Intolerance 01-29-2009 - [facility] Translations: [ [facility] LISINOPRIL, ([id number]) LISINOPRIL] Medications Medication Name Sig Date Prescriber Location Aspirin aspirin(ECOTRIN LOW 03-07-2009 Jesse Glover [facility] STRENGTH 81 MG TAB) (22272) Indications: Type II or unspecified type diabetes mellitus without mention of complication, uncontrolled Take one(1) tablet daily. 0 03/07/2009 Active Comment: Take one(1) tablet daily. Blood-Glucose Meter Blood-Glucose Meter 12-25-2019 Jesse Vasquez [facility] monitoring kit monitoring kit Adalberto (49923) Indications: Type 2 DM with CKD stage 3 and hypertension (HCC) Glucose Meter of Choice - Kit - Dx: Type 2 DM - Uncontrolled E11.65 1 Each 0 12/25/2019 Active Blood-Glucose Meter monitoring 12-25-2019 Jesse velasco [facility] (73468) kit Indications: Type 2 DM with CKD stage 3 and hypertension (HCC) Glucose Meter of Choice - Kit - Dx: Type 2 DM - Uncontrolled E11.65 1 Each 0 12/25/2019 Active Blood-Glucose Meter monitoring 12-25-2019 Jesse velasco [facility] (04259) kit Indications: Type 2 DM with CKD stage 3 and hypertension (HCC) Glucose Meter of Choice - Kit - Dx: Type 2 DM - Uncontrolled E11.65 1 Each 0 12/25/2019 Active Blood-Glucose Meter monitoring 12-25-2019 Jesse Evanshomar [facility] (55383) kit Indications: Type 2 DM with CKD stage 3 and hypertension (HCC) Glucose Meter of Choice - Kit - Dx: Type 2 DM - Uncontrolled E11.65 1 Each 0 12/25/2019 Active Blood-Glucose Meter monitoring 12-25-2019 Jesse Evanshomar [facility] (47865) kit Indications: Type 2 DM with CKD stage 3 and hypertension (HCC) Glucose Meter of Choice - Kit - Dx: Type 2 DM - Uncontrolled E11.65 1 Each 0 12/25/2019 Active Blood-Glucose Meter monitoring 12-25-2019 Jesse Lara Rebecca [facility] (78095) kit Indications: Type 2 DM with CKD stage 3 and hypertension ([facility]) Glucose Meter of Choice - Kit - Dx: Type 2 DM - Uncontrolled E11.65 1 Each 0 12/25/2019 Active Blood-Glucose Meter monitoring 12-25-2019 Jesse Evanshomar [facility] (64768) kit Indications: Type 2 DM with CKD stage 3 and hypertension (HCC) Glucose Meter of Choice - Kit - Dx: Type 2 DM - Uncontrolled E11.65 1 Each 0 12/25/2019 Active Blood-Glucose Meter monitoring 12-25-2019 Jesse Fernandez [facility] (71179) kit Indications: Type 2 DM with CKD [...] with meals. Chlorthalidone chlorthalidone 09-20-2019 Jesse Glover [facility] (HYGROTON) 25 mg tablet (441 95) Indications: Screening for genitourinary condition , Hypertension goal BP (blood pressure) , CKD (chronic kidney disease) stage 3, GFR 30-59 ml/min Take 1 tablet by mouth once daily. 90 tablet 3 09/20/2019 Active Comment: Take 1 tablet by mouth once daily. Cholecalciferol cholecalciferol (VITAMIN 07-31-2018 Jaleesa (Fel) [facility] D) 1,000 unit tab tablet Kris (44 [...] cloNIDine cloNIDine HCl 09-20-2019 - Jesse Lara [facility] (CATAPRES) 0.2 mg 03-18-2020 Adalberto (52328) tablet Indications: Hypertension goal BP (blood pressure) , Screening for genitourinary condition , CKD (chronic kidney disease) stage 3, GFR 30-59 ml/min Take 1 tablet by mouth twice daily. 180 tablet 3 09/20/2019 Active Comment: Take 1 tablet by mouth twice daily. Diclofenac diclofenac sodium 07-17-2019 Martinez (Pa) [facility] (VOLTAREN) 1 % topical Vetovitz (4419 5) gel Indications: Olecranon bursitis of left elbow Apply 2 g to affected area four times daily. 200 g 1 01/14/2020 Active Comment: Apply 2 g to affected area f our times daily. fluorescein-benoxinate fluorescein-benoxinate 03-06-2020 - Adia Vincent 0.25-0.4 % 1 Drop 0.25-0.4 % 1 Drop 03-06-2020 [facility] (FLURESS) (FLURESS) (60705) Furosemide furosemide (LASIX) 40 mg 12-27-2019 [place] (Textile Machinery Instructor) [facility] bur[facility]s tablet Take 1 tablet by [facility]er Clin ic mouth once daily. 90 (35501) tablet 3 12/27/2019 Active Comment: Take 1 tablet by mouth once daily. gabapentin gabapentin (NEURONTIN) 09-20-2019 Jesse Glover [facility] 100 mg capsule (47793) Indications: Diabetic polyneuropathy associated with diabetes mellitus due to underlying condition (HCC) Take 2 capsules by mouth daily at bedtime. From podiatry (Dr. Cordon) 0 09/20/2019 Active Comment: Take 2 capsules by mouth tamika ly at bedtime. From podiatry (Dr. Cordon) Insulin Lispro / insulin 75/25 lispro 10-12-2019 Chanda (Customer Acquisition Specialist) [facility] Insulin, protamine/lispro [facility] (84254) Protamine Lispro, units/mL (HUMALOG MIX Human 75-25 KWIKPEN) 100 unit/mL (75-25) inpn Inject 20 units breakfast and 20 units dinner 15 mL 5 10/12/2019 Active Comment: Inject 20 units breakfast an d 20 units dinner latanoprost latanoprost (XALATAN) 05-29-2019 Trudy Wilson [facility] 0.005 % ophthalmic (92767) solution Use 1 Drop in both eyes daily at bedtime. 1 Bottle 1 05/29/2019 Active Comment: Use 1 Drop in both eyes trevin y at bedtime. Linagliptin linaGLIPtin 03-31-2017 - Chanda (Customer Acquisition Specialist) [facility] (TRADJENTA) 5 mg tab 02-05-2020 [facility] (13182) Take 1 tablet by mouth once daily. 30 tablet 5 02/05/2020 Active Comment: Take 1 tablet by mouth once daily. Take 5 mg by mouth once trevin y. Losartan losartan (COZAAR) 100 mg 03-10-2020 Jesse Woodson [facility] tablet TAKE 1 TABLET (64709) EVERY DAY BY MOUTH 30 tablet 03/10/2020 Active losartan (COZAAR) 100 mg tablet 12-04-2018 [place] (Textile Machinery Instructor) [facility] (00351) TAKE 1 TABLET EVERY DAY BY MOUTH 30 tablet 11 12/04/2018 Active Comment: TAKE 1 TABLET EVERY DAY BY M OUTH metFORMIN metFORMIN ER 10-12-2019 Chanda (Customer Acquisition Specialist) [facility] (GLUC[facility]AGE [facility]R) 500 mg (4419 5) 24 hr tablet Take 1 tablet by mouth daily with breakfast. 90 tablet 1 10/12/2019 Active Comment: Take 1 tablet by mouth daily with breakfast. NIFEdipine NIFEdipine ER (PROCARDIA 09-20-2019 Jesse rodriguez [facility] XL) 90 mg 24 hr tablet (4419 [...] 2.5 % 1 03-06-2020 - Adia Yip [facility] Drop (AK-DILATE, 03-06-2020 (57044) PATI-SYNEPHRINE) Pravastatin pravastatin (PRAVACHOL) 07-31-2019 [place] (Textile Machinery Instructor) [facility] 80 mg tablet Take 1 Older (03468) tablet by mouth once daily. For cholesterol. 90 tablet 3 07/31/2019 Active Comment: Take 1 tablet by mouth once daily. For cholesterol. proparacaine proparacaine 0.5 % 1 03-06-2020 - Adia Yip [facility] Drop (ALCAINE) 03-06-2020 (88846) Timolol timoloL maleate 05-29-2019 - [facility] (TIMOPTIC) 0.5 % 03-05-2020 (95340) ophthalmic solution INSTILL 1 DROP IN BOTH [...] tropicamide 1 % 1 Drop 03-06-2020 - Adia Yip [facility] (MYDRIACYL) 03-06-2020 (72571) Vitamin B 12 cyanocobalamin 01-06-2018 Jesse Vincent [facility] (VITAMIN B-12) 1,000 Glover (19483) mcg tab Indications: Diabetic polyneuropathy associated with diabetes mellitus due to underlying condition (HCC) Take 1 tablet by mouth once daily. 0 01/06/2018 Active Comment: Take 1 tablet by mouth once daily. Problems Active Problems Category Problem Name Status Date Location Cataract Bilateral pseudophakia Active 06-22-2019 - [facility] (72236) Deficiency and other Anemia of chronic disease Active [facility] anemia (59456) Diabetes mellitus with Diabetic polyneuropathy Active - [facility] complications (93363) Diabetes mellitus Type 2 diabetes mellitus Active 04-18-2017 - [facility] without complication (35629) Disorders of lipid Hyperlipidemia Active [facility] metabolism (73527) Essential hypertension Hypertensive disorder Active [facility] (81795) 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 - [facility] glaucoma, right eye, severe (54456) stage Hyperplasia of Benign prostatic Active 02-12-2009 - [facility] prostate hypertrophy with outflow (44 195) obstruction Hypertension with Renal hypertension Active 03-28-2018 - [facility] complications and (58172) secondary hypertension Inflammation; Punctate keratitis, Active 06-22-2019 - [facility] infection of eye bilateral (89392) (except that caused by tuberculosis or sexually transmitteddisease) Open wounds of Laceration without foreign Active [facility] extremities body, left lower leg, (25794 ) subsequent encounter Other connective Bursitis of olecranon of Active [facility] tissue disease left elbow (00213) Other diseases of 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 - [facility] kidney and ureters renal insufficiency (4 4195) Other eye disorders Optic cupping Active 09-19-2018 - [facility] (80617) Other eye disorders Vitreous hemorrhage Active 04-19-2018 - [facility] (38668) 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 Active 07-09-2008 - [facility] disorders (12844) Other nutritional; Overweight Active 07-09-2008 - [facility] endocrine; and (46108) metabolic disorders Retinal detachments; Retinal edema Active [facility] defects; vascular (90614) occlusion; and retinopathy Unclassified Unknown / UNK(Unknown) Active 08-08-2017 - [facility] (92871) Past or Other Problems Category Problem Name Status Date Location Blindness and vision Visual field defect Completed 09-19-2018 - [facility] defects (97849) Fluid and electrolyte Hyperkalemia Completed 04-18-2019 - [facility] disorders (72198) Other and unspecified Tubular adenoma of Completed 08-10-2016 - [facility] benign neoplasm colon (02249) Unclassified Recheck 08-08-2017 - [facility] (32184) Results Result Name Value Range Unit Interpretation Flag Date Location No panel information on null [facility] (59007) progress on 2020-03 PROGRESS HNO ID: [id number] Normal 04-07-2020 [facility] Author: Michelle William ([place]) [place] Service: ? ([id number]) Author Type: Physician Director Of Capital Giving Type: Progress Notes Filed: 04/07/2020 10:10 AM Note Text: Michelle William PA-C Department of Orthopaedics Orthopaedics [address] [facility] [address] Dept: [phone] Dept April 07, 2020 CHIEF COMPLAINT: Follow [...] - insulin 75/25 lispro protamine/lispro units/mL (HUMALOG TX X 75-25 KWIKPEN) 100 unit/mL (75-25) inpn [...] both eyes daily at bedtime. - Insulin Newton, Disposable, (1ST TIER UNIFINE PENTIPS) 31 gauge [...] anxiety) This note was partially generated using Snagsta system, and there may be some incorrect words, spellings, and punctu ation that were not noted in checking the note before saving. Michelle William PA-C PROGRESS HNO ID: [id number] Normal 04-07-2020 [facility] Author: Rehana Gaona Ma [place] Service: ? ([id number]) Author Type: ? Type: Progress Notes Filed: [...] 2020-04-07 CNOV Office Visit (ORTHWS) Normal 04-07-[address] [place] [address] SHIRIN Whipple SR. ([id number]) 1945 M [place] Date Time Provider Department ([id number]) 04/07/20 9:30 AM MICHELLE WILLIAM) SARY During [...] PA-C Department of Orthopaedics Orthopaedics [address] [facility] [address] Dept: [phone] Dept April 07, 2020 CHIEF COMPLAINT: Follow [...] both eyes daily at bedtime. - Insulin Newton, Disposabl e, (1ST TIER UNIFINE PENTIPS) 31 [...] anxiety) This note was partially generated using SnapLayoutnition system, and there may be some incorrect words, spellings, and punctuat ion that were not noted in checking the note before saving. Michelle William PA-C Referring Provider: SELF [[id number]] Allergies As of Date: 04/07/2020 Noted Allergy Reaction CORTISONE 05/09/2009 14 - Other: See Comments Comments: [place] real hot, as if someone threw boiling [...] * Hyperlipidemia [E78.5] Polyneuropathy in diabetes ([facility]) [E11.42] 07/27/2005 DIABETES MELLITUS TYPE II UNCONTR UNCOMPL [IMO0*07/27/2005 0 08/09/2008 More... Erectile dysfunction associated with type 2 diaz*07/09/2008 Overweight [E66.3] 07/09/2008 Other specified gastritis without mention of he*09/18/2008 0 07/07/2015 BPH w/o urinary obs/LUTS [N40.0] 09/18/2008 09/08/2011 Background diabetic retinopathy(362.01) ([facility]) [*09/18/2008 0 06/30/2015 Shoulder pain [M25.519] 09/25/2008 [...] 04/07/20 progress on 2020-03 PROGRESS HNO ID: [id number] Normal 04-01-2020 [facility] Author: Marisa (Network Navigator) Ele Vincent ([id number]) Service: ? Author Type: Vehicle Modification Technician Type: Progress Notes Filed: 04/01/2020 1:56 PM [...] PM progress on 2020-03 PROGRESS HNO ID: [id number] Normal 03-28-2020 [facility] Author: Marisa ByrneNetwork Romaine) Ele [place] ([id number]) Service: ? Author Type: Vehicle Modification Technician Type: Progress Notes Filed: 04/01/2020 1:56 PM [...] on CNPTOUTREACH Patient Outreach (NETNAV) Normal 1 [place] SHIRIN Whipple SR. ([id number]) 1945 [facility] Date Time Provider Department ([id number]) 03/28/20 MARISA MARLOW)NETTYREL During your visit today, [...] 05/09/2009 14 - Other: See Comments Comments: [place] real hot, as if someone threw boiling [...] NETWORK NAVIGATORLACIE on 04/01/20 trangn on 2020-03-17 [facility]) Normal 03-17-2020 Vincent SHIRIN Whipple SR. ([id number]) 1945 [facility] Date Time Provider Department ([id number]) 03/17/20 JESSE GLOVER During your visit today, [...] This PSS scheduled patient next available with Rosailnda velasco for 04/22. Patient asked if there [...] 05/09/2009 14 - Other: See Comments Comments: [place] real hot, as if someone threw boiling [...] in stage 3 chronic kidney disease ([facility]) * Hypertension goal BP (blood pressure) < 140/90 * Hyperlipidemia [E78.5] Polyneuropathy in diabetes ([facility]) [E11.42] 07/27/2005 DIABETES MELLITUS TYPE II UNCONTR UNCOMPL [IMO0*07/27/2005 0 08/09/2008 More... Erectile dysfunction associated with type 2 diaz*07/09/2008 Overweight [E66.3] 07/09/2008 Other specified gastritis without mention of he*09/18/2008 0 07/07/2015 BPH w/o urinary obs/LUTS [N40.0] 09/18/2008 09/08/2011 Background diabetic retinopathy(362.01) ([facility]) [*09/18/2008 0 06/30/2015 Shoulder pain [M25.519] 09/25/2008 [...] 03/20/20 progress on 2020-02 PROGRESS HNO ID: [id number] Normal 03-13-2020 [place] Author: Brigitte Parks [facility] Service: ? [place] Author Type: Nurse Practitioner ([id number]) Type: Progress Notes Filed: 03/14/2020 4:34 PM Note Text: VASCULAR SURGERY WOUND OSTOMY CONTINENCE CONSULTATION CHIEF COMPLAINT: Wound check and evaluation HISTORY OF PRESENT ILLNESS: LLE laceration PAST MEDICAL HISTORY Diagnosis Date - Anemia in stage 3 chronic kidney disease (HCC) - Background diabetic retinopathy(362.01) 09/18/2008 [facility] eye. - Cataract of left eye - Chronic kidney disease, unspecified - CKD (chronic kidney disease) stage 3, GFR 30-59 ml/min (HC C) 05/26/2017 - [facility] OD - Depressive disorder, not elsewhere classified - Erectile dysfunction associated with type 2 diabetes isai garcia ([facility]) 07/09/2008 - Esophageal reflux - Essential hypertension, [...] - Vitreous hemorrhage of left eye ([facility]) PAST SURGICAL HISTORY Procedure Laterality Date - [...] Allergen Reactions - Cortisone Other: See Comments [place] real hot, as if someone threw boiling [...] in both eyes daily at bedtime. Insulin Newton, Disposable, (1ST TIER UNIFINE PENTIPS) 31 g [...] education/counselling/coordination of care. Brigitte Parks, PhD, WOCN, OUTSIDE SALES MANAGER cnov on 2020-03-13 CNOV Office Visit (VASSWS) Normal 03-13-20 [place] SHIRIN Whipple SR. ([id number]) 1945 [facility] Date Time Provider Department ([id number]) 03/13/20 11:00 AM BRIGITTE PARKS VASSWS During your visit today, we recorded the following informati on about you: Brigitte Parks, PhD, RETAIL KEY HOLDER.OUTSIDE SALES MANAGER 03/14/2020 4:34 PM Signed VASCULAR SURGERY WOUND OSTOMY CONTINENCE CONSULTATION CHIEF COMPLAINT: Wound check and evaluation HISTORY OF PRESENT ILLNESS: LLE laceration PAST MEDICAL HISTORY Diagnosis Date - Anemia in stage 3 chronic kidney disease (HCC) - Background diabetic retinopathy(362.01) 09/18/2008 [facility]. - Cataract of left eye - Chronic [...] Allergen Reactions - Cortisone Other: See Comments [place] real hot, as if someone threw boiling [...] in both eyes daily at bedtime. Insulin Newton, Disposable, (1ST TIER UNIFINE P ENTIPS) 31 [...] education/counselling/coordination of care. Brigitte Parks, PhD, WOCN, OUTSIDE SALES MANAGER Referring Provider: BRIGITTE PARKS [[id number]] Allergies As of Date: 03/13/2020 Noted Allergy Reaction CORTISONE 05/09/2009 14 - Other: See Comments Comments: [place] real hot, as if someone threw boiling [...] [N40.0] 09/18/2008 09/08/2011 Background diabetic retinopathy(362.01) ([facility]) [*09/18/2008 0 06/30/2015 Shoulder pain [M25.519] 09/25/2008 [...] 03/14/20 progress on 2020-02 PROGRESS HNO ID: [id number] Normal 03-06-2020 [place] Author: Adia Yip [facility] Service: ? [place] Author Type: Physician ([id number]) Type: Progress Notes Filed: 03/06/2020 11:37 AM Note Text: 1. Insulin dependent Diabetes Mellitus - Hba1c = Hemoglobin A1C (%) Date Value 12/19/2019 7.0 - Stressed blood pressure and blood sugar control and close follow-up with PCP/motor coach chauffeur 2. Q Proliferative diabetic retinopathy Both Eyes [...] its relevant components on 2019 MD Aditya [facility] Chair of Ophthalmology Research Professor of Ophthalmology, [facility] Vitreoretinal Staff, [facility] obsolete on 2020-02 OBSOLETE Refill (OPHTSA) Normal 03-05-2020 Sb burroughs [facility] SHIRIN WEST SR. ([id number]) 1945 [facility] Time Provider Department ([id number]) 03/05/20 XIOMARA LEONARD During your visit today, we recorded the following informati on about you: Allergies As of Date: 03/05/2020 Noted Allergy Reaction CORTISONE 05/09/2009 14 - Other: See Comments Comments: [place] real hot, as if someone threw boiling water o n him ZESTRIL (LISINOPRIL) 01/29/2009 5 - Intolerance Comments: ARF, hypokalemia Date Reviewed: 02/28/2020 Reviewed by: Semaj eBnton Ma - Fully Assessed Reason for Visit: [...] in stage 3 chronic kidney disease ([facility]) * Hypertension goal BP (blood pressure) < 140/90 * Hyperlipidemia [E78.5] Polyneuropathy in diabetes ([facility]) [E11.42] 07/27/2005 DIABETES MELLITUS TYPE II UNCONTR UNCOMPL [IMO0*07/27/2005 0 08/09/2008 More... Erectile dysfunction associated with type 2 diaz*07/09/2008 Overweight [E66.3] 07/09/2008 Other specified gastritis without mention of he*09/18/2008 0 07/07/2015 BPH w/o urinary obs/LUTS [N40.0] 09/18/2008 09/08/2011 Background diabetic retinopathy(362.01) ([facility]) [*09/18/2008 0 06/30/2015 Shoulder pain [M25.519] 09/25/2008 [...] 03/05/20 progress on 2020-02 PROGRESS HNO ID: [id number] Normal 02-28-2020 [place] Author: Brigitte Parks [facility] Service: ? [place] Author Type: Nurse Practitioner ([id number]) Type: Progress Notes Filed: 02/29/2020 9:58 AM Note Text: VASCULAR SURGERY WOUND OSTOMY CONTINENCE CONSULTATION CHIEF COMPLAINT: Wound check and evaluation HISTORY OF PRESENT ILLNESS: LLE abrasion PAST MEDICAL HISTORY Diagnosis Date - Anemia in stage 3 chronic kidney disease (HCC) - Background diabetic retinopathy(362.01) 09/18/2008 [facility] eye. - Cataract of left eye - Chronic kidney disease, unspecified - CKD (chronic kidney disease) stage 3, GFR 30-59 ml/min (HC C) 05/26/2017 - [facility] OD - Depressive disorder, not elsewhere classified - Erectile dysfunction associated with type 2 diabetes isai garcia ([facility]) 07/09/2008 - Esophageal reflux - Essential hypertension, [...] - Vitreous hemorrhage of left eye ([facility]) PAST SURGICAL HISTORY Procedure Laterality Date - [...] Allergen Reactions - Cortisone Other: See Comments [place] real hot, as if someone threw boiling [...] in both eyes daily at bedtime. Insulin Newton, Disposable, (1ST TIER UNIFINE PENTIPS) 31 g [...] education/counselling/coordination of care. Brigitte Parks, PhD, WOCN, OUTSIDE SALES MANAGER cnov on 2020-02-28 CNOV Office Visit (VASSWS) Normal 02-28-[address] [place] [address] SHIRIN Whipple SR. ([id number]) 1945 [facility] Date Time Provider Department ([id number]) 02/28/20 8:30 AM BRIGITTE PARKS VASSWS During your visit today, we recorded the following informati on about you: Brigitte Parks, PhD, RETAIL KEY HOLDER.OUTSIDE SALES MANAGER 02/29/2020 9:58 AM Signed VASCULAR SURGERY [...] - Vitreous hemorrhage of left eye ([facility]) PAST SURGICAL HISTORY Procedure Laterality Date - AVASTIN (BEVACIZUMAB) 1.25MG INTRAVITREAL INJECTION OD (RI GHT EYE) Right 04/19/2018 LAST - COLONOS W/REM POLYP SNARE 08/04/2016 Repeat 07/2019 - COLONOSCOP W/ OR W/O [facility] SPEC Colonoscopy - COLONOSCOPY W/BX 07/25/13 Repeat [...] Allergen Reactions - Cortisone Other: See Comments [place] real hot, as if someone threw boiling [...] in both eyes daily at bedtime. Insulin [place], Disposable, (1ST TIER UNIFINE P ENTIPS) 31 [...] education/counselling/coordination of care. Brigitte Parks, PhD, WOCN, OUTSIDE SALES MANAGER Referring Provider: BRIGITTE PARKS [[id number]] Allergies As of Date: 02/28/2020 Noted Allergy Reaction CORTISONE 05/09/2009 14 - Other: See Comments Comments: [place] real hot, as if someone threw boiling water o n him ZESTRIL (LISINOPRIL) 01/29/2009 5 - Intolerance Comments: ARF, hypokalemia Date Reviewed: 02/28/2020 Reviewed by: Semaj Benton Ma - Fully Assessed Reason for Visit: Established Patient [175] Primary Visit Diagnosis:Laceration of left lower leg, subseq uent encounter [S89.371B] Prescriptions as of 02/28/2020 Sig: LINAGLIPTIN 5 [...] in stage 3 chronic kidney disease ([facility]) * Hypertension goal BP (blood pressure) < 140/90 * Hyperlipidemia [E78.5] Polyneuropathy in diabetes ([facility]) [E11.42] 07/27/2005 DIABETES MELLITUS TYPE II UNCONTR UNCOMPL [IMO0*07/27/2005 0 08/09/2008 More... Erectile dysfunction associated with type 2 diaz*07/09/2008 Overweight [E66.3] 07/09/2008 Other specified gastritis without mention of he*09/18/2008 0 07/07/2015 BPH w/o urinary obs/LUTS [N40.0] 09/18/2008 09/08/2011 Background diabetic retinopathy(362.01) ([facility]) [*09/18/2008 0 06/30/2015 Shoulder pain [M25.519] 09/25/2008 [...] chronic k*10/11/2019 Encounter Status:Closed by BRIGITTE PARKS OUTSIDE SALES MANAGER on 02/29/20 progress on 2020-01 PROGRESS HNO ID: [id number] [place] 02-14-2020 [place] Author: Brigitte Parks [facility] Service: ? [place] Author Type: Nurse Practitioner ([id number]) Type: Progress Notes Filed: 02/18/2020 5:50 AM Note Text: VASCULAR SURGERY WOUND OSTOMY CONTINENCE CONSULTATION CHIEF COMPLAINT: Wound check and evaluation HISTORY OF PRESENT ILLNESS: LLE laceration re evaluation PAST MEDICAL HISTORY Diagnosis Date - Anemia in stage 3 chronic kidney disease (HCC) - Background diabetic retinopathy(362.01) 09/18/2008 [facility] eye. - Cataract of left eye - Chronic kidney disease, unspecified - CKD (chronic kidney disease) stage 3, GFR 30-59 ml/min ( C) 05/26/2017 - [place] of [place] OD - Depressive disorder, not elsewhere classified - Erectile dysfunction associated with type 2 diabetes isai garcia ([facility]) 07/09/2008 - Esophageal reflux - Essential hypertension, [...] Allergen Reactions - Cortisone Other: See Comments [place] real hot, as if someone threw boiling [...] in both eyes daily at bedtime. Insulin Newton, Disposable, (1ST TIER UNIFINE PENTIPS) 31 g [...] education/counselling/coordination of care. Brigitte Parks, PhD, WOCN, OUTSIDE SALES MANAGER cnov on 2020-02-14 CNOV Office Visit (VASSWS) Normal 02-14-20 [place] SHIRIN Whipple SR. ([id number]) 1945 M [place] Date Time Provider Department ([id number]) 02/14/20 8:30 AM BRIGITTE PARKS VASSWS During your visit today, we recorded the following informati on about you: Brigitte Parks, PhD, RETAIL KEY HOLDER.OUTSIDE SALES MANAGER 02/18/2020 5:50 AM Signed VASCULAR SURGERY WOUND OSTOMY CONTINENCE CONSULTATION CHIEF COMPLAINT: Wound check and evaluation HISTORY OF PRESENT ILLNESS: LLE laceration re evaluation PAST MEDICAL HISTORY Diagnosis Date - Anemia in stage 3 chronic kidney disease (HCC) - Background diabetic retinopathy(362.01) 09/18/2008 [facility] eye. - Cataract of left eye [...] Allergen Reactions - Cortisone Other: See Comments [place] real hot, as if someone threw boiling [...] in both eyes daily at bedtime. Insulin [place], Disposable, (1ST TIER UNIFINE P ENTIPS) 31 [...] education/counselling/coordination of care. Brigitte Parks, PhD, WOCN, OUTSIDE SALES MANAGER Referring Provider: BRIGITTE PARKS [[id number]] Allergies As of Date: 02/14/2020 Noted Allergy Reaction CORTISONE 05/09/2009 14 - Other: See Comments Comments: [place] real hot, as if someone threw boiling water o n him ZESTRIL (LISINOPRIL) 01/29/2009 5 - Intolerance Comments: ARF, hypokalemia Date Reviewed: 02/14/2020 Reviewed by: Semaj Benton Ma - Fully Assessed Reason for Visit: Established Patient [175] Primary Visit Diagnosis:Laceration of left lower leg, subseq uent encounter [S87.955X] Prescriptions as of 02/14/2020 Sig: LINAGLIPTIN 5 [...] [N40.0] 09/18/2008 09/08/2011 Background diabetic retinopathy(362.01) ([facility]) [*09/18/2008 0 06/30/2015 Shoulder pain [M25.519] 09/25/2008 [...] 02/18/20 progress on 2020-01 PROGRESS HNO ID: [id number] [place] 02-07-2020 [place] Author: Brigitte Parks [facility] Service: ? [place] Author Type: Nurse Practitioner ([id number]) Type: Progress Notes Filed: 02/10/2020 9:08 PM Note Text: VASCULAR SURGERY WOUND OSTOMY CONTINENCE CONSULTATION CHIEF COMPLAINT: Wound check and evaluation HISTORY OF PRESENT ILLNESS: LLE laceration PAST MEDICAL HISTORY Diagnosis Date - Anemia in stage 3 chronic kidney disease (HCC) - Background diabetic retinopathy(362.01) 09/18/2008 [facility] eye. - Cataract of left eye - Chronic kidney disease, unspecified - CKD (chronic kidney disease) stage 3, GFR 30-59 ml/min (HC C) 05/26/2017 - [place] OD - Depressive disorder, not elsewhere classified - Erectile dysfunction associated with type 2 diabetes isai garcia ([facility]) 07/09/2008 - Esophageal reflux - Essential hypertension, [...] - Vitreous hemorrhage of left eye ([facility]) PAST SURGICAL HISTORY Procedure Laterality Date - [...] Allergen Reactions - Cortisone Other: See Comments [place] real hot, as if someone threw boiling [...] in both eyes daily at bedtime. Insulin [place], Disposable, (1ST TIER UNIFINE PENTIPS) 31 g [...] education/counselling/coordination of care. Brigitte Parks, PhD, WOCN, OUTSIDE SALES MANAGER cnov on 2020-02-07 CNOV Office Visit (VASSWS) Normal 02-07-20 20 [place] SHIRIN Whipple SR. ([id number]) 1945 M [place] Date Time Provider Department ([id number]) 02/07/20 8:30 AM BRIGITTE PARKS During your visit today, we recorded the following informati on about you: Brigitte Parks, PhD, RETAIL KEY HOLDER.OUTSIDE SALES MANAGER 02/10/2020 9:08 PM Signed VASCULAR SURGERY WOUND OSTOMY CONTINENCE CONSULTATION CHIEF COMPLAINT: Wound check and evaluation HISTORY OF PRESENT ILLNESS: LLE laceration PAST MEDICAL HISTORY Diagnosis Date - Anemia in stage 3 chronic kidney disease (HCC) - Background diabetic retinopathy(362.01) 09/18/2008 [facility] eye. - Cataract of left eye [...] - Vitreous hemorrhage of left eye ([facility]) PAST SURGICAL HISTORY Procedure Laterality Date - [...] Allergen Reactions - Cortisone Other: See Comments [place] real hot, as if someone threw boiling [...] in both eyes daily at bedtime. Insulin [place], Disposable, (1ST TIER UNIFINE P ENTIPS) 31 [...] education/counselling/coordination of care. Brigitte Parks, PhD, WOCN, OUTSIDE SALES MANAGER Referring Provider: BRIGITTE PARKS [[id number]] Allergies As of Date: 02/07/2020 Noted Allergy Reaction CORTISONE 05/09/2009 14 - Other: See Comments Comments: [place] real hot, as if someone threw boiling [...] in stage 3 chronic kidney disease ([facility]) * Hypertension goal BP (blood pressure) < 140/90 * Hyperlipidemia [E78.5] Polyneuropathy in diabetes ([facility]) [E11.42] 07/27/2005 DIABETES MELLITUS TYPE II UNCONTR UNCOMPL [IMO0*07/27/2005 0 08/09/2008 More... Erectile dysfunction associated with type 2 diaz*07/09/2008 Overweight [E66.3] 07/09/2008 Other specified gastritis without mention of he*09/18/2008 0 07/07/2015 BPH w/o urinary obs/LUTS [N40.0] 09/18/2008 09/08/2011 Background diabetic retinopathy(362.01) ([facility]) [*09/18/2008 0 06/30/2015 Shoulder pain [M25.519] 09/25/2008 [...] 02/10/20 progress on 2020-01 PROGRESS HNO ID: [id number] Normal 02-05-2020 [facility] Author: Pierre Riley [place] Service: ? ([id number]) Author Type: Physician Type: Progress Notes Filed: 02/05/2020 3:08 PM Note Text: Pierre Riley MD Department of Orthopaedics Orthopaedics [address] [address] Dept: [phone] February 05, 2020 CHIEF COMPLAINT: Established Patient [...] eks he will see us in our [place] office for aspiration Exam: Mild bogginess. No tenderness. No redness. Imaging: IMPRESSION: Radiographic findings present which can be seen in associati on with olecranon bursitis. ?There also may be a tiny avulsion fract ure fragment off of the olecranon process enthesophyte. Scrap Carrier: DEANNA ? Transcribe Date/Time: Jan 14 2020 ?2:42P Dictated by : MADIHA GRIMALDO MD This examination was interpreted and the report reviewed and electronically signed by: MADIHA GRIMALDO MD on Jan 14 2020 ?2:44PM ?EST Results-Findings * * *Final Report* * * DATE OF EXAM: Jan 14 2020 ?2:01PM ? WRX ? 5324 ?- ?XR ELBOW 3V AP/LAT/OTHER LT ?/ [id number] PROCEDURE REASON: Pain ?? ? * * [...] - insulin 75/25 lispro protamine/lispro units/mL (HUMALOG TX X 75-25 KWIKPEN) 100 unit/mL (75-25) inpn [...] both eyes daily at bedtime. - Insulin [place], Disposable, (1ST TIER UNIFINE PENTIPS) 31 gauge [...] [Lisinopril] This note was partially generated using iWantooi Affinityon system, and there may be some incorrect words, spellings, and punctu ation that were not noted in checking the note before saving. Pierre Riley MD PROGRESS HNO ID: [id number] Normal 02-05-2020 [facility] Author: Adeola Cat RN [place] Service: ? ([id number]) Author Type: ? Type: Progress Notes Filed: 02/05/2020 3:08 PM Note Text: 4 inch DALLIN wrap applied to left elbow. PROGRESS HNO ID: [id number] Normal 02-05-2020 [facility] Author: Hillary Arzate Ma [place] Service: ? ([id number]) Author Type: ? Type: Progress Notes Filed: 02/05/2020 3:08 PM Note Text: AMB ROOMING INTAKE FLOWSHEET DATA Risk Screening Do you have concerns about personal safety or safety in the home?: No Patient here today for 3 week 1 day post visit with Michelle olivier olecranon bursitis. He wants to get elbow drained. PROGRESS HNO ID: [id number] Normal 02-05-2020 [facility] Author: Chanda Lofton) Sonam [place] Service: ? ([id number]) Author Type: Nurse Practitioner Type: Progress Notes Filed: 02/05/2020 1:25 PM Note Text: Reason for Consultation: DM Type 2 Referring Physician: Jesse Glover MD [id number] [facility] [address] HISTORY OF PRESENT ILLNESS Mr. West is [...] anemia, secondary hyperpara thyroidism Seeing cardiology in [place].Denies hx of [place], CVA, stents, C ABG/CAD Feeling sluggish about [...] disease (HCC) - Background diabetic retinopathy(362.01) 09/18/2008 [facility] eye. - Cataract of left eye - Chronic kidney disease, unspecified - CKD (chronic kidney disease) stage 3, GFR 30-59 ml/min ( C) 05/26/2017 - [place] OD - Depressive disorder, not elsewhere classified - Erectile dysfunction associated with type 2 diabetes isai garcia ([facility]) 07/09/2008 - Esophageal reflux - Essential hypertension, [...] - insulin 75/25 lispro protamine/lispro units/mL (HUMALOG TX X 75-25 KWIKPEN) 100 unit/mL (75-25) inpn [...] at bedtime. 1 Bottle 1 - Insulin [place], Disposable, (1ST TIER UNIFINE PENTIPS) 31 gauge [...] panel at follow up Chanda Phillips APRN, BLAST FURNACE KEEPER-C, CDE Endocrinology [facility] [address] Fax: aniaov on 2020-02-05 CNOV Office Visit (ORMDNA) Normal 02-05-20 [place] SHIRIN Whipple SR. ([id number]) 1945 [facility] Date Time Provider Department ([id number]) 02/05/20 1:40 PM PIERRE RILEY During your [...] Pierre Riley MD Department of Orthopaedics Orthopaedics [address] [place] [address] Dept: [phone] February 05, 2020 CHIEF COMPLAINT: Established Patient [...] weeks he will see us in our [place] office for aspiration Exam: Mild bogginess. No tenderness. No redness. Imaging: IMPRESSION: Radiographic findings present which can be seen in associati on with olecranon bursitis. ?There also may be a tiny avulsion fract ure fragment off of the olecranon process enthesophyte. Scrap Carrier: PSCB ? Transcribe Date/Time: Jan 14 2020 ?2:42P Dictated by : MADIHA GRIMALDO MD This examination was interpreted and the report reviewed and electronically signed by: MADIHA GRIMALDO MD on Jan 14 2020 ?2:44PM ?EST Results-Findings * * *Final Report* * * DATE OF EXAM: Jan 14 2020 ?2:01PM ? WRX ? 5324 ?- ?XR ELBOW 3V AP/LAT/OTHER LT ?/ [id number] PROCEDURE REASON: Pain ?? ? * * [...] both eyes daily at bedtime. - Insulin [place], Disposabl e, (1ST TIER UNIFINE PENTIPS) 31 [...] [Lisinopril] This note was partially generated using Short Fuze r BeiZ system, and there may be some incorrect words, spellings, and punctuat ion that were not noted in checking the note before saving. Pierre Riley MD Referring Provider: PIERRE RILEY [[id number]] Allergies As of Date: 02/05/2020 Noted Allergy Reaction CORTISONE 05/09/2009 14 - Other: See Comments Comments: [place] real hot, as if someone threw boiling [...] 02/05/20 CNOV Office Visit (ENDMED) Normal 02-05-20 [place] Leonid SHIRIN WEST ([id number]) 1945 M [place] Date Time Provider Department ([id number]) 02/05/20 1:00 PM CHANDA PHILLIPS (BECKIE) ENDMED During your visit today, we recorded the following informati on about you: Pulse Blood pressure Weight Height 66/minute 142/70 89.4 kg 1.778 m Chanda Phillips, RETAIL KEY HOLDER.OUTSIDE SALES MANAGER 02/05/2020 1:25 PM Signed Reason for Consultation: DM Type 2 Referring Physician: Jesse Glover MD [id number] [facility] [address] HISTORY OF PRESENT ILLNESS Mr. West is [...] anemia, secondary hyperpara thyroidism Seeing cardiology in [place].Denies hx of [place], CVA, stents, C ABG/CAD Feeling sluggish about [...] disease (HCC) - Background diabetic retinopathy(362.01) 09/18/2008 [facility] eye. - Cataract of left eye [...] - Vitreous hemorrhage of left eye ([facility]) PAST SURGICAL HISTORY Procedure Laterality Date - [...] at bedtime. 1 Bottle 1 - Insulin [place], Disposabl e, (1ST TIER UNIFINE PENTIPS) 31 [...] up Chanda Phillips APRN, DEJON, HERNESTOE Endocrinology [facility]/[place] [address] Fax: Chanda Phillips APRN.OUTSIDE SALES MANAGER 02/05/2020 1:17 PM Addendum 1. Continue the same diabetes medication. 2. 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, with long-term current use of insulin ([facility]) [E11.3593, Z79.4] Other Visit Diagnoses:Type 2 diabetes mellitus with di abetic polyneuropathy, with long-term current use of insulin ([facility]) [E11.42, Z79.4] Type 2 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 disease, with long-term current use of insulin ([facility]) [E11.22, N18.3, Z79.4] Hypertension goal BP (blood pressure) < 140/90 [I10] Hyperlipidemia, unspecified hyperlipidemia type [E78.5] Order(s):linaGLIPtin (TRADJENTA) 5 mg tabTake [facility].Disp: 30 tabletRfl: 5 COMP METABOLIC PANEL [SQCMP] Order #: [id number] FUTURE HGB A1C [EUDRC3Y] Order #: [id number] FUTURE LIPID PANEL BASIC [SQLIPB] Order #: [id number] FUTURE ALBUMIN/CREAT RATIO RND UR [SQUACR] Order #: [id number] FUTU RE Prescriptions as of 02/05/2020 Sig: [...] prior Chanda Phillips APRN, PATRICKC, CDE Endocrinology [facility] Office [facility]/[address], [address] [place], [place] [address] Fax: Prescriptions ordered this encounter Disp Refills [...] 02/05/20 progress on 2020-01 PROGRESS HNO ID: [id number] Normal 02-01-2020 [place] Author: Brigitte Parks [facility] Service: ? [place] Author Type: Nurse Practitioner ([id number]) Type: Progress Notes Filed: 02/04/2020 5:50 PM Note Text: VASCULAR SURGERY WOUND OSTOMY CONTINENCE CONSULTATION CHIEF COMPLAINT: Wound check and evaluation HISTORY OF PRESENT ILLNESS: LLE laceration from hitting leg against frame of bed PAST MEDICAL HISTORY Diagnosis Date - Anemia in stage 3 chronic kidney disease (HCC) - Background diabetic retinopathy(362.01) 09/18/2008 [facility] eye. - Cataract of left eye - Chronic kidney disease, unspecified - CKD (chronic kidney disease) stage 3, GFR 30-59 ml/min (HC C) 05/26/2017 - [place] OD - Depressive disorder, not elsewhere classified - Erectile dysfunction associated with type 2 diabetes isai garcia ([facility]) 07/09/2008 - Esophageal reflux - Essential hypertension, [...] Allergen Reactions - Cortisone Other: See Comments [place] real hot, as if someone threw boiling [...] in both eyes daily at bedtime. Insulin [place], Disposable, (1ST TIER UNIFINE PENTIPS) 31 g [...] education/counselling/coordination of care. Brigitte Parks, PhD, WOCN, OUTSIDE SALES MANAGER cnov on 2020-02-01 CNOV Office Visit (VASSWS) Normal 02-01-20 [place] SHIRIN Whipple SR. ([id number]) 1945 M [place] Date Time Provider Department ([id number]) 02/01/20 8:00 AM BRIGITTE PARKS VASSWS During your visit today, we recorded the following informati on about you: Brigitte Parks, PhD, RETAIL KEY HOLDER.OUTSIDE SALES MANAGER 02/04/2020 5:50 PM Signed VASCULAR SURGERY WOUND OSTOMY CONTINENCE CONSULTATION CHIEF COMPLAINT: Wound check and evaluation HISTORY OF PRESENT ILLNESS: LLE laceration from hitting leg against frame of bed PAST MEDICAL HISTORY Diagnosis Date - Anemia in stage 3 chronic kidney disease (HCC) - Background diabetic retinopathy(362.01) 09/18/2008 [facility] eye. - Cataract of left eye [...] Allergen Reactions - Cortisone Other: See Comments [place] real hot, as if someone threw boiling [...] in both eyes daily at bedtime. Insulin [place], Disposable, (1ST TIER UNIFINE P ENTIPS) 31 [...] education/counselling/coordination of care. Brigitte Parks, PhD, WOCN, OUTSIDE SALES MANAGER Referring Provider: JESSE GLOVER [[id number]] Allergies As of Date: 02/01/2020 Noted Allergy Reaction CORTISONE 05/09/2009 14 - Other: See Comments Comments: [place] real hot, as if someone threw boiling [...] [N40.0] 09/18/2008 09/08/2011 Background diabetic retinopathy(362.01) ([facility]) [*09/18/2008 0 06/30/2015 Shoulder pain [M25.519] 09/25/2008 [...] 02/04/20 progress on 2020-01 PROGRESS HNO ID: [id number] Normal 01-30-2020 [facility] Author: Jesse Glover [place] ([id number]) Service: ? Author Type: Physician Type: Progress Notes Filed: 01/30/2020 12:48 PM Note Text: This note was created using Brandma.coriter. Subjective Shirin Brett Olvera. is a 74 year old male here for a wound chec k. He vaguely recalled bumping his left leg 2 weeks ago. He went to [facility] ER January 19 where there was a history of a blister on his lef t leg that he popped open and obtained serous fluid. He was advised to berto ly bacitracin ointment. He went to [facility] ER January 22, where he w as advised to continue with wound care. He felt his wound was slow in heal ing over 2 weeks. He also had an olecranon effusion that was no improving with compression recommended by orthopedics. His hypertension continued to be resistant, and was managed by nephrology. Colonoscopy was due and Dr. Xiong was collaboration with h is salt machine operator of optimizing the prep for his Chronic [...] CNOV Office Visit (INTMWS) Normal 01-30-20 20 [place] SHIRIN Whipple SR. ([id number]) 1945 [facility] Date Time Provider Department ([id number]) 01/30/20 11:40 AM JESSE GLOVER INTMWS During [...] leg 2 weeks ago. He went to [facility] ER January 19 where there was a history of a blister o n his left leg that he popped open and obtained serous fluid. He was advised to appl y bacitracin ointment. He went to [facility] ER January 22, where he was advised to continue with wound care. He felt his wound was slow in healing over 2 wee ks. He also had an olecranon effusion that was no improving with compression recommended by orthopedics. His hypertension continued to be resistant, and was managed by nephrology. Colonoscopy was due and Dr. Xiong was collaboration with his salt machine operator of optimizing the prep for his Chronic [...] Jesse Glover MD Referring Provider: JESSE GLOVER [[id number]] Allergies As of Date: 01/30/2020 Noted Allergy Reaction CORTISONE 05/09/2009 14 - Other: See Comments Comments: [place] real hot, as if someone threw boiling water o n him ZESTRIL (LISINOPRIL) 01/29/2009 5 - Intolerance Comments: ARF, hypokalemia Date Reviewed: 01/30/2020 Reviewed by: Roma Hawkins LPN - Fully Assessed Reason for Visit: Wound Check [133] Primary Visit Diagnosis:Laceration of left lower extremity, initial encounter [S81.812A] Other Visit Diagnosis:Olecranon bursitis of left elbow [M70. 22] Order(s):CONSULT TO SKIN CARE TEAM [[id number]] Order #: [id number]: 1 Prescriptions as of 01/30/2020 Sig: [...] CODING DATE: 01/25/2020 FINAL Gin arash 01-25-2020 [facility] (0 0000) DSCH STATUS: Home PAYOR: Medicare APC DESCRIPTION 5022 Level 2 Type A ED Visits ADMIT DX: REASON FOR VISIT DX: S81.812A Laceration without foreign body, left lower leg, initial encounter FINAL DX: PRINCIPAL: S81.812A Laceration without foreign body, left lower leg, initial encounter SECONDARY: E11.9 Type 2 diabetes mellitus without complications Z79.4 rn long term care (current) use of insulin [...] CODING DATE: 01/25/2020 FINAL Gin l 01-25-2020 [facility] (0 0000) DSC STATUS: Home PAYOR: Medicare ADMIT DX: REASON FOR VISIT DX: S81.812A Laceration without foreign body, left lower leg, initial encounter FINAL DX: PRINCIPAL: S81.812A Laceration without foreign body, left lower leg, initial encounter SECONDARY: E11.9 Type 2 diabetes mellitus without complications Z79.4 rn long term care (current) use of insulin [...] ed patient summary on 2020-01-20 ED Patient [facility] - Emergency Department Normal 01-20-2020 [facility] Summary [address] [place] [address] ([id number]) PATIENT DISCHARGE INSTRUCTIONS Patient Information Name: SHIRIN WEST Sr Age: 74 Years Date of : 1945 Reason For Visit: Wound repair; LOWER L LEG WOUND CHECK Arrival Time: 01/20/2020 08:07:00 Primary Care Physician: Provider, None Attending Physician: Brenton Echevarria MD Comment: Visit Diagnosis: Diagnoses This Visit Noninfected skin tear of left leg (S81.812A) Wound repair ([id number]) Prescription Information: If you have been given a prescription for narcotics, seek immediate medical attention if you have any difficulty breathing or any sudden status changes such as confusion and sleepiness. If you or anyone you know is experiencing suicidal thoughts, mental health, alcohol and/or drug addiction problems; contact the [facility] 17/01 Crisis Hotline -Text 4HEVG to 401113. If you received any narcotic s, sedation, [...] treatment you r eceived today in the [facility] Emergency Department were for an urgent problem and are not intended as complete care. It is important for you to follow up with a doctor, nurse practitioner, or physician? s enrichment assistant for ongoing care. If your symptoms [...] so we can reach you if necessary. [facility] Emergency Department has provided you with a complete list of medications post discharge. Please inform your customer success specialist/provider of your visit and for further instruction [...] or a bad smell. Medicines ? Take miim-vdf-hzhnkwe and prescription medicines only as told by [...] 9 Document Revised: 2017 Document Reviewed: 05/03/2016 [employer] Interactive Patient Education ? 2018 [employer]. Viruses or Bacteria What?s got you sick? [...] 2020-01-20 ED Patient Education Materials Normal 0 [facility] Education Note Dermatology (00 000) Skin Tear [...] or a bad smell. Medicines ? Take irng-dtr-dwmjsts and prescription medicines only as told by [...] 9 Document Revised: 2017 Document Reviewed: 05/03/2016 [employer] Interactive Patient Education ? 2019 Wh[employer]Talk. ed note-nursing on 2020-01-20 ED Note-Nursing Ambulates to room 8 with Normal 01-20-2020 [facility] steady gait. AAO X3. CRAWFORD. ([id number]) Skin warm, dry , even. REspirations regular, [...] - Patient: SHIRIN WEST Sr Normal 01-20-2020 [facility] Physician Age: 74 years Sex: MALE : 1945 Hospital Associated Diagnoses: Noninfected skin tear of left leg (00426) Author: Brenton Echevarria MD Basic Information Time [...] Diagnosis Noninfected skin tear of left leg ([id number] S81.812A, Discha brodie, Medical) Plan Condition: Stable. Disposition: Discharged: Time 01/20/2020 08:40:00, to home. Prescriptions: [facility] prescriptions Pharmacy: bacitracin 500 units/g topic al ointment (Prescribe): 1 berto, TOP, BID, for 7 day(s), 30 gm, 0 Refill(s). Patient was given the follow ing educational materials: Skin Tear Care, Onxh-hs-Gqlg, Skin Tear Care, Ptss-oo-Mdzr, Skin Tear Care, Cfda-jn-Pkni. Follow up with: ; Follow up with [...] ed clinical summary on 2020-01-20 ED Clinical [facility] - Emergency Department Normal 01-20-2020 [facility] Summary [address] [place] [address] (00000) ED Clinical Summary PERSON INFORMATION Name: SHIRIN WEST Sr Age: 74 Years Sex: MALE : 1945 MRN: Acct#: Visit Reason: Wound repair; LOWER L LEG WOUND CHECK Arrival: 01/20/2020 08:07:00 Discharge: 01/20/2020 09:24:00 LOS: 000 01:17 Check In: 01/20/2020 08:07:00 Checkout:01/20/20 09:24:00 Address: [facility] [address] PCP: Provider, None PROVIDER INFORMATION Provider Role [...] PATIENT EDUCATION INFORMATION Instructions: Skin Tear Care, Gqry-eg-Scuh Follow-Up: With: Address: When: Follow up with [...] * *Final Report* * * Normal 01-13 [place] AP/LAT/OTHER LT DATE OF EXAM: Jan 14 2020 2:01PM Clinic WRX 5324 - XR ELBOW 3V AP/LAT/OTHER LT / 83 Vincent PROCEDURE REASON: Pain (71542) * * * * Physician Interpretation * [...] fragment off of the olecranon process enthesophyte. Scrap Carrier: DEANNA Transcribe Date/Time: Jan 14 2020 2:42P Dictated by : MADIHA GRIMALDO MD This examination was interpreted and the report reviewed and electronically signed by: MADIHA GRIMALDO MD on Jan 14 2020 2:44PM EST [id number] progress on 2019-12 PROGRESS HNO ID: [id number] Normal 01-14-2020 [facility] Author: Michelle William (Pa) [place] Service: ? ([id number]) Author Type: Physician Director Of Capital Giving Type: Progress Notes Filed: 01/14/2020 3:33 PM Note Text: Michelle William PA-C Department of Orthopaedics Orthopaedics [facility] [place] [facility] [address] Dept: [phone] Dept January 14, 2020 CHIEF COMPLAINT: Established [...] on was 7.0. Denies injury. Patient is fwzae-sgeq-vhkramrd. He is re tired and enjoys going [...] fragment off of the olecranon process enthesophyte. Scrap Carrier: DEANNA ? Transcribe Date/Time: Jan 14 2020 ?2:42P Dictated by : MADIHA GRIMALDO MD This examination was interpreted and the report reviewed and electronically signed by: MADIHA GRIMALDO MD on Jan 14 2020 ?2:44PM ?EST Results-Findings * * *Final Report* * * DATE OF EXAM: Jan 14 2020 ?2:01PM ? WRX ? 5324 ?- ?XR ELBOW 3V AP/LAT/OTHER LT ?/ [id number] PROCEDURE REASON: Pain ?? ? * * [...] disease (HCC) - Background diabetic retinopathy(362.01) 09/18/2008 [facility] eye. - Cataract of left eye - Chronic kidney disease, unspecified - CKD (chronic kidney disease) stage 3, GFR 30-59 ml/min (HC C) 05/26/2017 - Coloboma of iris OD - Depressive disorder, not elsewhere classified - Erectile dysfunction associated with type 2 diabetes isai garcia ([facility]) 07/09/2008 - Esophageal reflux - Essential hypertension, [...] - insulin 75/25 lispro protamine/lispro units/mL (HUMALOG TX X 75-25 KWIKPEN) 100 unit/mL (75-25) inpn [...] both eyes daily at bedtime. - Insulin Newton, Disposable, (1ST TIER UNIFINE PENTIPS) 31 gauge [...] electronic medical record. SELF Jesse Glover MD [address] [id number] This note was partially generated using [employer] t[employer] system, and there may be some incorrect words, spellings, and punctu ation that were not noted in checking the note before saving. Michelle William PA-C PROGRESS HNO ID: [id number] Normal 01-14-2020 [facility] Author: Shon Fried (Rt) [place] Service: ? ([id number]) Author Type: Veterans' Coordinator Type: Progress Notes Filed: 01/14/2020 2:13 PM [...] 14, 2020 2:12 PM PROGRESS HNO ID: [id number] Normal 01-14-2020 [facility] Author: Hillary Arzate Ma [place] Service: ? ([id number]) Author Type: ? Type: Progress Notes Filed: [...] 2020-01-14 CNOV Office Visit (ORTHWS) Normal 01-14-20 [place] [facility] SHIRIN WEST SR. ([id number]) 1945 [facility] Date Time Provider Department ([id number]) 01/14/20 2:00 PM MICHELLE WILLIAM (PA) During [...] Michelle William PA-C Department of Orthopaedics Orthopaedics [address] [place] [address] Dept: [phone] Dept January 14, 2020 CHIEF COMPLAINT: Established [...] wa s 7.0. Denies injury. Patient is ixggp-igda-knlwxidl. He is retired and en joys going [...] compression. FOLLOW UP INSTRUCTIONS: As needed. Mr. Shiirn West Sr. was advised as to contrast [...] fragment off of the olecranon process enthesophyte. Scrap Carrier: PSCB ? Transcribe Date/Time: Jan 14 2020 ?2:42P Dictated by : MADIHA GRIMALDO MD This examination was interpreted and the report reviewed and electronically signed by: MADIHA GRIMALDO MD on Jan 14 2020 ?2:44PM ?EST Results-Findings * * *Final Report* * * DATE OF EXAM: Jan 14 2020 ?2:01PM ? WRX ? 5324 ?- ?XR ELBOW 3V AP/LAT/OTHER LT ?/ [id number] PROCEDURE REASON: Pain ?? ? * * [...] disease (HCC) - Background diabetic retinopathy(362.01) 09/18/2008 [facility] eye. - Cataract of left eye [...] Repeat 07/2019 - COLONOSCOP W/ OR W/O [facility] SPEC Colonoscopy - COLONOSCOPY W/BX 07/25/13 Repeat [...] both eyes daily at bedtime. - Insulin Newton, Disposabl e, (1ST TIER UNIFINE PENTIPS) 31 [...] medical rec ord. SELF Jesse Glover MD [address] [facility] [address] This note was partially generated using [employer] system, and there may be some incorrect words, spellings, and punctuat ion that were not noted in checking the note before saving. Michelle William PA-C Referring Provider: SELF [[id number]] Allergies As of Date: 01/14/2020 Noted Allergy Reaction CORTISONE 05/09/2009 14 - Other: See Comments Comments: [place] real hot, as if someone threw boiling [...] WILLIAM PA-C on 01/14/20 [place] [facility] 2020[facility]) Normal 01-08-2020 [place] SHIRIN Whipple SR. ([id number]) 1945 [facility] Date Time Provider Department ([id number]) 01/08/20 PIERRE RILEY During your visit today, we recorded the following informati on about you: Adeola Cat RN 01/08/2020 8:47 AM Signed Pt. called requesting sooner appointment with Dr Ji Riley. He was seen in [facility] 12-28-2019 for left elbow bursitis and still painfu l. Pt. given sooner appointment. Allergies As of Date: 01/08/2020 Noted Allergy Reaction CORTISONE 05/09/2009 14 - Other: See Comments Comments: [place] real hot, as if someone threw boiling water o n him ZESTRIL (LISINOPRIL) 01/29/2009 5 - Intolerance Comments: ARF, hypokalemia Date Reviewed: 12/20/2019 Reviewed by: Madiha ByrneWhitinsville HospitalShun Hamm - Fully Assessed Reason for [...] in stage 3 chronic kidney disease ([facility]) * Hypertension goal BP (blood pressure) < 140/90 * Hyperlipidemia [E78.5] Polyneuropathy in diabetes ([facility]) [E11.42] 07/27/2005 DIABETES MELLITUS TYPE II UNCONTR UNCOMPL [IMO0*07/27/2005 0 08/09/2008 More... Erectile dysfunction associated with type 2 diaz*07/09/2008 Overweight [E66.3] 07/09/2008 Other specified gastritis without mention of he*09/18/2008 0 07/07/2015 BPH w/o urinary obs/LUTS [N40.0] 09/18/2008 09/08/2011 Background diabetic retinopathy(362.01) ([facility]) [*09/18/2008 0 06/30/2015 Shoulder pain [M25.519] 09/25/2008 [...] CODING DATE: 01/05/2020 FINAL Gin antoine 01-05-2020 [facility] (0 0000) [facility] STATUS: Home PAYOR: Medicare APC DESCRIPTION 5022 [...] CODING DATE: 01/05/2020 FINAL Gin antoine 01-05-2020 [facility] (0 0000) [facility] STATUS: Home PAYOR: Medicare ADMIT DX: REASON [...] ed patient summary on 2019-12-28 ED Patient [facility] - Emergency Department Normal 12-28-2019 [facility] Summary [address] [place] [address] ([address]) PATIENT DISCHARGE INSTRUCTIONS Patient Information Name: SHIRIN WEST Sr Age: 74 Years Date of : 1945 Reason For Visit: Elbow pain-swelling; LUMP ON ELBOW Arrival Time: 12/28/2019 13:32:51 Primary Care Physician: Provider, None Attending Physician: Brenton Echevarria MD Comment: Visit Diagnosis: Diagnoses This Visit Elbow pain-swelling ([id number]) Olecranon bursitis, left elbow (M70.22) Prescription Information: If you have been given a prescription for narcotics, seek immediate medical attention if you have any difficulty breathing or any sudden status changes such as confusion and sleepiness. If you or anyone you know is experiencing suicidal thoughts, mental health, alcohol and/or drug addiction problems; contact the [facility] 17/01 Crisis Hotline -Text 4HOPE yy 077721. If you received any narcotic s, sedation, [...] documents With: Address: When: Juan Aguilera [address] [facility], [address] [place], [place] Business (2) Within 3 to 5 [...] you may follow-up with the orthopedic surgeon astronautical engineer, Dr. Aguilera In the next 3 to [...] treatment you r eceived today in the [facility] Emergency Department were for an urgent problem and are not intended as complete care. It is important for you to follow up with a doctor, nurse practitioner, or physician? s enrichment assistant for ongoing care. If your symptoms [...] so we can reach you if necessary. [facility] Emergency Department has provided you with a complete list of medications post discharge. Please inform your customer success specialist/provider of your visit and for further instruction [...] include: ? Medicines. These may include: ? Gxox-jno-iosgvdq medicines to relieve pain and inflammatio n. ? Antibiotic medicines. ? Injections of anti-inflammatory medicines (steroids). ? Draining fluid from the bursa. ? Wrapping your elbow with a bandage. ? Wearing elbow pads. If these treatments do not help, you may need surgery to rem ove the bursa. Follow these instructions at home: Medicines ? Take kafj-phh-ejtkqog and prescription medicines only as told by [...] 8 Document Revised: 05/23/2018 Document Reviewed: 05/23/2018 [employer] Interactive Patient Education ? 2019 [employer] Viruses or Bacteria What?s got you [...] 2019-12-28 ED Patient Education Materials Normal 0 [facility] Education Note Orthopedics (00 000) Elbow Bursitis [...] include: ? Medicines. These may include: ? Mjeo-iqh-sutjser medicines to relieve pain and inflammatio n. ? Antibiotic medicines. ? Injections of anti-inflammatory medicines (steroids). ? Draining fluid from the bursa. ? Wrapping your elbow with a bandage. ? Wearing elbow pads. If these treatments do not help, you may need surgery to rem ove the bursa. Follow these instructions at home: Medicines ? Take qhge-ucl-ridebqu and prescription medicines only as told by [...] 8 Document Revised: 05/23/2018 Document Reviewed: 05/23/2018 [employer] Interactive Patient Education ? 2019 [employer]. ed note-nursing on 2019-12-28 ED Note-Nursing Pt arrives to ED with Normal [facility] left elbow swelling. Pt ([id number]) states there is a bump on his left elbow and he is unsure what it is. Pt is able to move arm full ROM. Pt denies pain at this time ed note - physician on 2019-12-28 ED Note - Patient: BRETT CARPIO Normal 12-28-2019 [facility] Physician Age: 74 years Sex: MALE : 1945 Hospital Associated Diagnoses: Olecranon bursitis, left elbow (74797) Author: Marilee THOMPSON, Anuj Douglas Basic Information Time seen: Date & time 12/28/2019 13:38:00. History source: Patient. Arrival mode: Private vehicle. History limitation: None. History of Present Illness Patient is a 74-year-old rig ht-handed -Micronesian diabetic male who presents to the emergency [...] and Plan Diagnosis Olecranon bursitis, left elbow ([id number] M70.22, Discharge, Medical) Plan Condition: Improved, Stable. [...] you may follow-up with the orthopedic surgeon astronautical engineer, Dr. Aguilera In the next 3 to [...] ed clinical summary on 2019-12-28 ED Clinical [facility] - Emergency Department Normal 12-28-2019 [facility] Summary [address] [place] [address] (00000) ED Clinical Summary PERSON INFORMATION Name: SHIRIN WEST Sr Age: 74 Years Sex: MALE : 1945 MRN: Acct#: Visit Reason: Elbow pain-swe lling; LUMP ON ELBOW Arrival: 12/28/2019 13:32:51 Discharge: 12/28/2019 14:20:00 LOS: 000 00:48 Check In: 12/28/2019 13:32:51 Checkout:12/28/2019 14:20:00 Address: [address] [place] [address] PCP: Provider, None PROVIDER INFORMATION Provider Role [...] Bursitis Follow-Up: With: Address: When: Juan Aguilera [address] [place] [address], Suite [place], [place] Business (2) Within 3 to 5 [...] you may follow-up with the orthopedic surgeon astronautical engineer, Dr. Aguilera In the next 3 to [...] OBSOLETE Refill (INTMWS) Normal 12-27-2019 [facility] SHIRIN WEST SR. ([id number]) 1945 [facility] Date Time Provider Department ([id number]) 12/27/19 JESSE GLOVER INTMasterWS During your visit today, we recorded the following informati on about you: Angelica Lizeth [facility] 12/27/2019 12:15 PM Signed Patient has been [...] No Please review and advise. Angelica Stanley [facility] Roma Hawkins LPN 12/27/2019 2:59 PM Signed [...] 05/09/2009 14 - Other: See Comments Comments: [place] real hot, as if someone threw boiling water o n him ZESTRIL (LISINOPRIL) 01/29/2009 5 - Intolerance Comments: ARF, hypokalemia Date Reviewed: 12/20/2019 Reviewed by: Madiha ByrneWhitinsville HospitalShun Hamm - Fully Assessed Reason for [...] * Hyperlipidemia [E78.5] Polyneuropathy in diabetes ([facility]) [E11.42] 07/27/2005 DIABETES MELLITUS TYPE II UNCONTR UNCOMPL [IMO0*07/27/2005 0 08/09/2008 More... Erectile dysfunction associated with type 2 diaz*07/09/2008 Overweight [E66.3] 07/09/2008 Other specified gastritis without mention of he*09/18/2008 0 07/07/2015 BPH w/o urinary obs/LUTS [N40.0] 09/18/2008 09/08/2011 Background diabetic retinopathy(362.01) ([facility]) [*09/18/2008 0 06/30/2015 Shoulder pain [M25.519] 09/25/2008 [...] on 2019-12-24 CNPN Telephone (FAMPWS) Normal 12-24-2019 [place] SHIRIN Whipple SRJi ([id number]) 1945 [facility] Date Time Provider Department ([id number]) 12/24/19 [facility] During your visit today, we recorded the following informati on about you: Neyda Bo FERNANDO 12/24/2019 9:05 AM Signed Pt calls to report he has swelling in both ankles. Pt report s swelling has been in the last week and is intermittent. Pt reports swel ling will go down some but then swell back up. Pt reports he saw the nephrolog ist in [place] 12/[address] Campbell the foot dr today. Dr. Kam hairston advised the pt that he may need water pill changed or increased. Pt is aski ng provider to review. Neyda Hongfellow ROAD CONSULTANT Jesse Glover MD 12/24/2019 1:12 PM Signed I recommend he use compression stockings. He has hypertens ion that requires multiple medications that can cause swelling, and chronic ki dney disease. Changing medications can be risky. I do not recommend incr easing water pill due to CKD. I can send a prescription for compression stockings if nika ed. Rehana Crain LPN, ROAD CONSULTANT 12/24/2019 1:20 PM Signed Left message to return call. Natalya Moulton, RN, RN 12/24/2019 4:30 PM Signed Pt returns call, message below given with suzan castro Pt asking for rx to go to [facility]. Pt also asking for rx for new glucose meter to [facility] as well. Order pended. Jesse Glover MD 12/25/2019 1:19 PM Signed Order printed. Roma Hawkins LPN 12/26/2019 8:20 AM Signed Order faxed to [facility]. Roma Hawkins LPN Allergies As of Date: 12/24/2019 Noted Allergy Reaction CORTISONE 05/09/2009 14 - Other: See Comments Comments: [place] real hot, as if someone threw boiling water o n him ZESTRIL (LISINOPRIL) 01/29/2009 5 - Intolerance Comments: ARF, hypokalemia Date Reviewed: 12/20/2019 Reviewed by: Madiha ByrneTextile Machinery InstructorShun Hamm - Fully Assessed Reason for Visit: [...] Insulin: YesDisp: 400 EachRfl: 11 COMPRESSION STOCKINGS [[id number]] Order #: [id number] Prescriptions as of 12/24/2019 Sig: BLOOD-GLUCOSE METER [...] 12/26/19 progress on 2019-11 PROGRESS HNO ID: [id number] Normal 12-20-2019 [facility] Author: Madiha (Textile Machinery Instructor) Noris Vincent ([id number]) Service: ? Author Type: Nurse Practitioner Type: Progress Notes Filed: 12/20/2019 10:53 AM Note Text: [facility] NEPHROLOGY AND HYPERTENSION [facility] CHIEF COMPLAINT: Follow [...] disease (HCC) - Background diabetic retinopathy(362.01) 09/18/2008 [facility] eye. - Cataract of left eye - Chronic kidney disease, unspecified - CKD (chronic kidney disease) stage 3, GFR 30-59 ml/min (HC C) 05/26/2017 - Coloboma of iris OD - Depressive disorder, not elsewhere classified - Erectile dysfunction associated with type 2 diabetes isai delatorrewilfred ([facility]) 07/09/2008 - Esophageal reflux - Essential hypertension, [...] - Vitreous hemorrhage of left eye ([facility]) Social History Tobacco Use - Smoking status: Former Smoker Types: Cigars - Smokeless tobacco: Never Used - Tobacco comment: quit 40 + years ago Substance Use Topics - Alcohol use: Yes Comment: rarely, 2-3 glasses red wine per month - Drug use: No Current Outpatient Medications on File Prior to Visit Medication Sig - insulin 75/25 lispro protamine/lispro units/mL (HUMALOG TX X 75-25 KWIKPEN) 100 unit/mL (75-25) inpn [...] both eyes daily at bedtime. - Insulin Newton, Disposable, (1ST TIER UNIFINE PENTIPS) 31 gauge [...] 2019-12-20 CNOV Office Visit (NEPHST) Normal 12-20-19 [place] SHIRIN Whipple SRJi ([id number]) 1945 M [place] Date Time Provider Department ([id number]) 12/20/19 10:15 AM MADIHA HAMM (OUTSIDE SALES MANAGER) NEPHST During your visit today, we recorded the following informati on about you: Blood pressure 130/62 Madiha Hamm APRN.OUTSIDE SALES MANAGER 12/20/2019 10:53 AM Signed [facility] NEPHROLOGY AND HYPERTENSION [facility] CHIEF COMPLAINT: Follow up for CKD. HPI: History copied from Dr. Marrero's previous note verónica ed 08/22/19. My changes are made below. Shirin West Sr. is a 74 yea r old male with moderate CKD in the setting of type II DM and HTN -Cr has been abnormal [facility] e 2014. Other medical problems include [...] disease (HCC) - Background diabetic retinopathy(362.01) 09/18/2008 [facility] eye. - Cataract of left eye [...] - Vitreous hemorrhage of left eye ([facility]) Social History Tobacco Use - Smoking status: [...] both eyes daily at bedtime. - Insulin Newton, Disposabl e, (1ST TIER UNIFINE PENTIPS) 31 [...] 05/09/2009 14 - Other: See Comments Comments: [place] real hot, as if someone threw boiling [...] [E78.5] Order(s):CBC + DIFF [SQCBCDIF] Order #: [id number] FUTURE RENAL FUNCTION PANEL [SQRFP] Order #: [id number] FUTURE PTH INTACT BLD [SQPTHI] Order #: [id number] FUTURE VITAMIN D 25 HYDROXY [SQVITD] Order #: [id number] FUTURE URINALYSIS, WITH MICROSCOPIC [SQUAWMIC] Order #: [id number] FUTURE PROTEIN CREATININE RATIO [SQPRATIO] Order #: [id number] FUTU RE Prescriptions as of 12/20/2019 Sig: [...] TSH Qn 2.540 0.270-4.200 uU/mL Normal 12-19-2019 [facility] (90682) Comment: Performed By: #### HBA1C, TS H, LIPB ####[place] [address] [phone] lipid panel, basic on 2019-12-19 Cholesterol [Mass/Vol] 162 <200 mg/dL Normal 020 [facility] (47052) Comment: Result Comment: <200 mg/dL, Desirable 200-239 mg/dL, Borderline hi gh >239 mg/dL, High Performed By: #### HBA1C, TS H, LIPB ####[place] [address] [place] [address] [phone] Cholesterol in HDL 49 >39 mg/dL Normal 12-19-2019 [facility] [Mass/Vol] (54850) Comment: Result Comment: 40-59 mg/dL, Acceptable >59 mg/dL, High: Negative ri sk factor for coronary heart disease <40 mg/dL, Low: Positive ris k factor for coronary heart disease Performed By: #### HBA1C, TS H, LIPB ####[place] [address] [phone] Cholesterol in LDL 94 <100 mg/dL Normal 12-19-2019 [facility] [Mass/Vol] [place] ([address]69) Comment: Result Comment: <100 mg/dL, Optimal 100-129 mg/dL, Near optimal/ above optimal 130-159 mg/dL, Borderline hi gh 160-189 mg/dL, High >189 mg/dL, Very high Secondary prevention optimal LDL Cholesterol levels are recommended to be < 70 mg/dL Performed By: #### HBA1C, TS H, LIPB ####[facility] [place] [address] [phone] Fasting Time 12 hrs Normal 12-19-2019 [facility] ([address]23) Comment: Performed By: #### HBA1C, TS H, LIPB ####[place] [address] [place] [address] [phone] LDL:HDL Ratio 1.92 <2.54 Normal 12-19-[address] [facility] (27043) Comment: Result Comment: Reference: 1. National Cholesterol Educ ation Program ATP III Guideline At-A-Glance Quick Desk Reference: National Heart, Lung, and Blood [place]. National Institutes of Health. 2001: NIH Publication No. 01-3305. 2. An International Atherosc lerosis Society position paper: global recommendations for the management of dyslipidemia: executive summary, Atherosclerosis. 2014: 232(2):410-413. Performed By: #### HBA1C, TS H, LIPB ####[place] [address] [place] [address] [phone] Non HDL Cholesterol 113 <130 mg/dL Normal 12-19-2019 [facility] (30068) Comment: Result Comment: <130 mg/dL, Optimal 130-159 mg/dL, Near optimal/ above optimal 160-189 mg/dL, Borderline hi gh 190-219 mg/dL, High >219 mg/dL, Very high Secondary prevention optimal non HDL Cholesterol levels are recommended to be < 100 mg/dL Performed By: #### HBA1C, TS H, LIPB ####[facility] [place] [address] [phone] TC:HDL Ratio 3.31 <5.10 Normal 12-19-2019 [facility] (93380) Comment: Performed By: #### HBA1C, TS H, LIPB ####[place] [address] [place] [address] [phone] Triglyceride [Mass/Vol] 95 <150 mg/dL Normal 2019 [facility] (28280) Comment: Result Comment: <150 mg/dL, Normal 150-199 mg/dL, Borderline hi gh 200-499 mg/dL, High >499 mg/dL, Very high Performed By: #### HBA1C, TS H, LIPB ####[facility] [place] [place] [address] [phone] VLDL Cholesterol 19 <30 mg/dL Normal 12-19-2019 [facility] (22805) Comment: Performed By: #### HBA1C, TS H, LIPB ####[facility] [place] [address] [phone] hemoglobin a1c on 2 HbA1c (Bld) [Mass fraction] 154 mg/dL Normal [facility] (23069) Comment: Result Comment: eAG: (Estima violet average glucose) is a calculated value from HgbA1c and is representative government relations of the average blood glucose level in the last 2-3 month period. Performed By: #### HBA1C, TS H, LIPB ####[place] [address] [place] [address] [phone] HbA1c (Bld) [Mass fraction] 7.0 4.3-5.6 % High [facility] (25039) Comment: Result Comment: Micronesian Diaz betes Association guidelines indicate that patients with HgbA1c in the range 5.7-6.4% are at increased risk for development of diabetes, and intervention by lifestyle modification may be beneficial. HgbA1c greater o r equal to 6.5% is considered diagnostic of diabetes. Performed By: #### HBA1C, TS H, LIPB ####[place] [address] [address] [place] [address] [phone] comp metabolic panel on 2019-12-19 Albumin [Mass/Vol] 3.8 3.9-4.9 g/dL Low 12-19-2019 [facility] (63955) ALP [Catalytic 47 38-113 U/L Normal 12-19-2019 [facility] activity[facility]Vol] [facility] (01923) ALT [Catalytic 8 10-54 U/L Low 12-19-2019 [facility] activity/Vol] [facility] and (81397) Anion gap [Moles/Vol] 8 9-18 mmol/L Low 12-19-19 20 [facility] (05312) AST [Catalytic 16 14-40 U/L Normal 12-19-2019 [facility] activity/Vol] [facility] and ([id number]) Bilirubin [Mass/Vol] 0.5 0.2-1.3 mg/dL Normal 0 [facility] (43047) Calcium [Mass/Vol] 9.0 8.5-10.2 mg/dL Normal 12-19-2019 [facility] (18902) Chloride [Moles/Vol] 107 97-105 mmol/L High 0 [facility] (79303) CO2 [Moles/Vol] 24 22-30 mmol/L Normal 12-19-2019 [facility] (74112) Creatinine [Mass/Vol] 1.47 0.73-1.22 mg/dL High 12-19-19 20 [facility] (28107) eGFR- Amer. 57 Normal 12-19-2019 [facility] (21758) GFR/1.73 sq M predicted 47 . Normal 2019 [facility] among non-blacks MDRD [place] ([id number]) (S/P/Bld) [Vol rate/Area] Comment: Result Comment: eGFR [...] Glucose [Mass/Vol] 174 74-99 mg/dL High 12-19-2019 [facility] (57871) Comment: Result Comment: The [place] Diabetes Association (ADA) provides guidance for cutoff [...] for diagnosis of diabetes. Reference: Standards of [facility] Care in Diabetes 2016, [place] Diabetes Association. Diabetes Care. 2016.39(Suppl 1). Potassium [Moles/Vol] 4.3 3.7-5.1 mmol/L Normal 12-18- 20 [facility] (18315) Protein [Mass/Vol] 6.7 6.3-8.0 g/dL Normal 12-19-2019 [facility] (74686) Sodium [Moles/Vol] 139 136-144 mmol/L Normal 12-19-2019 [facility] (38896) Urea nitrogen [Mass/Vol] 23 9-24 mg/dL Normal 12-18 [facility] (90710) albumin/creat ratio on 2019-12-19 Albumin Urine Random 146.7 mg/L Normal 0 [facility] (48481) Comment: Performed By: #### UACR #### [facility] [address] [place], [place] [phone] Albumin/Creat Ratio 195 <30 mg/g High 12-19-2019 [facility] (27185) Comment: Result Comment: Adult Male a nd [...] 3(1), 1-150. Performed By: #### UACR #### [facility] [address] [place], [place] [phone] Creatinine,Urine,Ran 75.4 20-300 mg/dL Normal 0 [facility] (73266) Comment: Performed By: #### UACR #### [facility] [address] [place], [place] [phone] progress on 2019-10 PROGRESS HNO ID: [id number] Normal 11-22-2019 [facility] Author: Pamela Guzman ([id number]) Service: ? Author Type: Registered Nurse Type: [...] CNPTOUTREACH Patient Outreach (INTMWS) Normal 0 11-22-2019 [place] SHIRIN Whipple SR. ([id number]) 1945 [facility] Date Time Provider Department () 11/22/19 PAMELA [...] 05/09/2009 14 - Other: See Comments Comments: [place] real hot, as if someone threw boiling [...] on 2019-11-20 CNPN Telephone (INTMWS) Normal 11-20-2019 [place] SHIRIN Whipple SR. ([id number]) 1945 [facility] Date Time Provider Department ([id number]) 11/20/19 JESSE GLOVER INTMasterWS During your visit today, we recorded the following informati on about you: Penny Scott LPN 11/20/2019 11:50 AM Signed Patient calling for a letter to excuse him from jury duty du e to the medications he takes. Penny Scott LPN 11/20/2019 11:51 AM Signed He would like to pick it up. Please call [phone]. Penny Glover MD 11/21/2019 8:42 AM Signed Letter printed. Roma Hawkins LPN 11/21/2019 9:40 AM Signed Patient notified letter will be ready for pickup in Medical Records after 10 AM today. Roma Hawkins LPN Allergies As of Date: 11/20/2019 Noted Allergy Reaction CORTISONE 05/09/2009 14 - Other: See Comments Comments: [place] real hot, as if someone threw boiling [...] in stage 3 chronic kidney disease ([facility]) * Hypertension goal BP (blood pressure) < 140/90 * Hyperlipidemia [E78.5] Polyneuropathy in diabetes ([facility]) [E11.42] 07/27/2005 DIABETES MELLITUS TYPE II UNCONTR UNCOMPL [IMO0*07/27/2005 0 08/09/2008 More... Erectile dysfunction associated with type 2 diaz*07/09/2008 Overweight [E66.3] 07/09/2008 Other specified gastritis without mention of he*09/18/2008 0 07/07/2015 BPH w/o urinary obs/LUTS [N40.0] 09/18/2008 09/08/2011 Background diabetic retinopathy(362.01) ([facility]) [*09/18/2008 0 06/30/2015 Shoulder pain [M25.519] 09/25/2008 [...] 11/21/19 progress on 2019-10 PROGRESS HNO ID: [id number] Normal 11-08-2019 [facility] Author: Gissell Hewitt LPN [place] ([id number]) Service: ? Author Type: ? Type: Progress Notes Filed: 11/08/2019 9:28 AM Note Text: HIGH RISK CHRONIC DISEASE MONITORING Provider Action/FYI: Contact made with patient: No - Left message - Hi my name is Gissell Hewitt LPN and I am calling from the [facility] on beh sanna of your PCP, Jesse [...] CNPTOUTREACH Patient Outreach (AMBCMG) Normal 0 11-08-2019 [place] SHIRIN Whipple SR. ([id number]) 1945 [facility] Time Provider Department ([id number]) 11/08/19 JESSE GLOVERAnibal During your visit today, we recorded the following informati on about you: Gissell Hewitt LPN 11/08/2019 9:28 AM Signed HIGH RISK CHRONIC DISEASE MONITORING Provider Action/FYI: Contact made with patient: No - Left message - Hi my n savita is Gissell Hewitt LPN and I am calling from the [facility] on behalf of your PCP, Jesse Glover [...] 05/09/2009 14 - Other: See Comments Comments: [place] real hot, as if someone threw boiling [...] 11/08/19 progress on 2019-10 PROGRESS HNO ID: [id number] Normal 11-01-2019 [facility] Author: Gissell Hewitt FERNANDO [place] ([id number]) Service: ? Author Type: ? Type: Progress Notes Filed: 11/01/2019 8:40 AM Note Text: HIGH RISK CHRONIC DISEASE MONITORING Provider Action/FYI: Contact made with patient: No - Left message - Hi my name is Gissell Hewitt FERNANDO and I am calling from the [facility] on beh assisted of your PCP, Jesse Glover MD Because of the COVID-19 outbreak , we were calling to help make sure you are feeling well and have what you need to manage your well-being. If you'd like to call us back to [facility] [employer] in, you can reach us at during [...] CNPTOUTREACH Patient Outreach (AMBCMG) Normal 0 11-01-2019 [place] SHIRIN Whipple SR. ([id number]) 1945 [facility] Date Time Provider Department ([id number]) 11/01/19 JESSE GLOVER During your visit today, we recorded the following informati on about you: Gissell Hewitt FERNANDO 11/01/2019 8:40 AM Signed HIGH RISK CHRONIC DISEASE MONITORING Provider Action/FYI: Contact made with patient: No - Left message - Hi my n savita is Gissell Ernestina KING and I am calling from the [facility] on behalf of your PCP, Jesse Glover [...] week using Track Pt Outreach. End o [facility]. 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 Author Type: Vehicle Modification Technician Type: Progress Notes Filed: 10/25/2019 1:16 PM Note Text: HIGH RISK CHRONIC DISEASE MONITORING Provider Action/FYI: . Call in 1 week Contact made with patient: No - Unable to leave message - en tered next patient outreach date for the following week on the same in Track Pt. Outreach - End Outreach Outreach ended cnptoutreach on CNPTOUTREACH Patient Outreach (INTMWS) Normal 0 10-25-2019 [place] SHIRIN Whipple SR. ([id number]) 1945 [facility] Date Time Provider Department ([id number]) 10/25/19 JUANA CARDOZANETWORK NAVIGATOR)INTMWS During your visit [...] 05/09/2009 14 - Other: See Comments Comments: [place] real hot, as if someone threw boiling [...] in stage 3 chronic kidney disease ([facility]) * Hypertension goal BP (blood pressure) < 140/90 * Hyperlipidemia [E78.5] Polyneuropathy in diabetes (HCC) [E11.42] 07/27/2005 DIABETES MELLITUS TYPE II UNCONTR UNCOMPL [IMO0*07/27/2005 0 08/09/2008 More... Erectile dysfunction associated with type 2 diaz*07/09/2008 Overweight [E66.3] 07/09/2008 Other specified gastritis without mention of he*09/18/2008 0 07/07/2015 BPH w/o urinary obs/LUTS [N40.0] 09/18/2008 09/08/2011 Background diabetic retinopathy(362.01) ([facility]) [*09/18/2008 0 06/30/2015 Shoulder pain [M25.519] 09/25/2008 [...] stage 3 chronic k*10/11/2019 Encounter Status:Closed by [employer] NETWORK NAVIGATOR, MARIANA Antoine on 10/25/19 progress on 2019-09 PROGRESS HNO ID: [id number] Normal 10-12-2019 [facility] Author: Chanda (Beckie) Sonam [place] ([id number]) Service: ? Author Type: Nurse Practitioner Type: Progress Notes Filed: 10/12/2019 8:51 AM Note Text: Reason for Consultation: DM Type 2 Referring Physician: Jesse Glover MD [id number] [facility] [address] HISTORY OF PRESENT ILLNESS Mr. West is [...] A1C of 8.9 on 10/09/19 Has seen BLAST FURNACE KEEPER LISA Nash --AMOR 2 wks ago. States she wanted him to increase lantus but he waited until our visit today. He is trying to have all providers within [facility]. BG levels higher since reducing metformin secondary to kidne y disease. Fhx of DM in mother, siblings, Maternal Aunt. Under the care of podiatry, nephrology Seeing cardiology in [place].Denies hx of [place], CVA, stents, C ABG/CAD ? Known complications [...] disease (HCC) - Background diabetic retinopathy(362.01) 09/18/2008 [facility] eye. - Cataract of left eye - Chronic kidney disease, unspecified - CKD (chronic kidney disease) stage 3, GFR 30-59 ml/min (HC C) 05/26/2017 - [place] OD - Depressive disorder, not elsewhere classified - Erectile dysfunction associated with type 2 diabetes edsoni tuwilfred ([facility]) 07/09/2008 - Esophageal reflux - Essential hypertension, [...] - Vitreous hemorrhage of left eye ([facility]) PAST SURGICAL HISTORY Procedure Laterality Date - AVASTIN (BEVACIZUMAB) 1.25MG INTRAVITREAL INJECTION OD (RI GHT EYE) Right 04/19/2018 LAST - COLONOS W/REM POLYP SNARE 08/04/2016 Repeat 07/2019 [facility] Colonoscopy - COLONOSCOPY W/BX 07/25/13 Repeat [...] at bedtime. 1 Bottle 1 - Insulin [place], Disposable, (1ST TIER UNIFINE PENTIPS) 31 gauge [...] the phone with patient. Chanda Phillips APRN, BLAST FURNACE KEEPER-C, CDE Endocrinology [facility]/[address] [place], [place] [address] Fax: urinalysis with microscopic on 2019-10-09 Bilirubin, Urine Negative Negative Normal 10-09-2019 Cl [facility] (51418) Comment: Performed By: #### Van WISE AWMIC #### [facility] [address] [place], [place] [address] Clarity (U) Clear Clear Normal 10-09-2019 [facility] (35552) Comment: Performed By: #### BILLIE U AWMIC #### [facility] [address] [place] [phone] Color (U) Light Yellow Yellow Critically abnormal 020 [facility] (99323) Comment: Performed By: #### BILLIE U AWMIC #### [facility] [address] [place] [address] Comments SEE COMMENT Normal 10-09-2019 [facility] (79772) Comment: Result Comment: N/A Performed By: #### BILLIE U AWMIC #### [facility] [address] [place] [phone] Glucose Ql (U) 1+ Negative mg/dL Critically abnormal 10-08 [facility] (64660) Comment: Performed By: #### BILLIE U AWMIC #### [facility] [address] [place] [address] Hemoglobin/Blood,Ur Negative Negative Normal 10-09-2019 [facility] (43902) Comment: Performed By: #### BILLIE U AWMIC #### [facility] [address] [place] [address] Ketones Ql (U) Negative Negative Normal 10-09-2019 [facility] (16783) Comment: Performed By: #### BILLIE U AWMIC #### [facility] [address] [place] [address] Leukest Trace Negative Critically abnormal 10-09-2019 [facility] (80083) Comment: Performed By: #### BILLIE U AWMIC #### [facility] [address] [place] [address] Nitrite Ql (U) Negative Negative Normal 10-09-2019 [facility] (62540) Comment: Performed By: #### BILLIE U AWMIC #### [facility] [address] [place] [address] pH (Bld) 5.0 5.0-8.0 Normal 10-09-2019 [facility] (28811) Comment: Performed By: #### BILLIE U AWMIC #### [facility] [address] [place] [phone] Protein (U) 2+ Negative mg/dL Critically abnormal 10-09-19 20 [facility] [Mass/Vol] [place] (78985) Comment: Performed By: #### BILLIE U AWMIC #### [facility] [address] [place] [phone] RBC (U) [#/Vol] 0-3 0-3 Normal 10-09-2019 [facility] (61264) Comment: Performed By: #### BILLIE U AWMIC #### [facility] [address] [place] [phone] Specific [place], Ur 1.017 1.005-1.030 Normal 020 [facility] (11106) Comment: Performed By: #### BILLIE U AWMIC #### [facility] [address] [place] [phone] Urine Bj Comment SEE COMMENT Normal 10-09-2019 [facility] (60327) Comment: Result Comment: N/A Performed By: #### BILLIE U AWMIC #### [facility] [address] [place] [phone] Urobilinogen Qn (U) Negative Negative Normal 10-09-2019 [facility] (55779) Comment: Performed By: #### BILLIE U AWMIC #### [facility] [address] [place], [place] [address] WBC (Bld) [#/Vol] 0-5 0-5 Normal 10-09-2019 C [facility] (46754) Comment: Performed By: #### Van WISE AWMIC #### [facility] [address] [place], [place] [address] hemoglobin on 10-08 Hemoglobin (Bld) 11.3 13.0-17.0 g/dL Low 10-09-2019 [facility] [place] [Mass/Vol] [place] (02564) hemoglobin a1c on 2 HbA1c (Bld) [Mass fraction] 8.9 4.3-5.6 % High [facility] (80767) Comment: Result Comment: [place] Diaz betes Association guidelines indicate that patients with HgbA1c in the range 5.7-6.4% are at increased risk for development of diabetes, and intervention by lifestyle modification may be beneficial. HgbA1c greater o r equal to 6.5% is considered diagnostic of diabetes. Performed By: #### HBA1C ### #[facility] [address] [place], [place] [phone] HbA1c (Bld) [Mass fraction] 209 mg/dL Normal [facility] (15959) Comment: Result Comment: eAG: (Estima violet average glucose) is a calculated value from HgbA1c and is representative government relations of the average blood glucose level in the last 2-3 month period. Performed By: #### HBA1C ### #[facility] [address] [place], [place] [phone] hematocrit on 10-08 Hematocrit (Bld) [Volume 35.1 39.0-51.0 % Low 10-08 [facility] fraction] (33855) basic metabolic panl on 2019-10-09 Anion gap [Moles/Vol] 9 9-18 mmol/L Normal 10-09-19 20 [facility] (71426) Calcium [Mass/Vol] 9.2 8.5-10.2 mg/dL Normal 10-09-2019 [facility] (10767) Chloride [Moles/Vol] 100 97-105 mmol/L Normal 0 [facility] (32201) CO2 [Moles/Vol] 26 22-30 mmol/L Normal 10-09-2019 [facility] (13802) Creatinine [Mass/Vol] 1.87 0.73-1.22 mg/dL High 10-09-19 20 [facility] (72109) eGFR- Amer. 43 Normal 10-09-2019 [facility] (29741) GFR/1.73 sq M predicted 36 . Normal 2019 [facility] among non-blacks MDRD [place] ([id number]) (S/P/Bld) [Vol rate/Area] Comment: Result Comment: eGFR [...] Glucose [Mass/Vol] 278 74-99 mg/dL High 10-09-2019 [facility] (59669) Comment: Result Comment: The [place] Diabetes Association (ADA) provides guidance for cutoff [...] for diagnosis of diabetes. Reference: Standards of [facility] Care in Diabetes 2016, [place] Diabetes Association. Diabetes Care. 2016.39(Suppl 1). Potassium [Moles/Vol] 4.2 3.7-5.1 mmol/L Normal 10-09-19 20 [facility] (62205) Sodium [Moles/Vol] 135 136-144 mmol/L Low 10-09-2019 [facility] (19985) Urea nitrogen [Mass/Vol] 37 9-24 mg/dL High 10-08 [facility] (56596) progress on 2019-09 PROGRESS HNO ID: [id number] Normal 10-04-2019 [facility] Author: Jesse Glover [place] ([id number]) Service: ? Author Type: Physician Type: Progress Notes Filed: 10/04/2019 9:05 AM Note Text: This note was created using 1000jobboersen.de. Subjective This Team Access Model visit is [...] both eyes daily at bedtime. - Insulin [place], Disposable, (1ST TIER UNIFINE PENTIPS) 31 gauge [...] up in 4 months. [facility] 2019-[facility] CNPN Telephone (INTMWS) Normal 10-04-2019 [place] SHIRIN Whipple SR. ([id number]) 1945 [facility] Date Time Provider Department ([id number]) 10/04/19 JESSE GLOVER INTMWS During your visit today, we recorded the following informati on about you: Katie Mckeon Kiln Remover 10/04/2019 2:28 PM Signed PSS can you please assist wi th scheduling consult to [facility] and Medicare Wellness around 02/03/2020. Thank you. Carolyn Riley Pss 10/05/2019 8:33 AM Signed 1st attempt to reach patient. Left message for patient to [facility] office to schedule consult in [facility] and Medicare Wellness in 02/02 per PATITO Cortez Pss 10/06/2019 9:12 AM Signed Appointments scheduled. Allergies As of Date: 10/04/2019 Noted Allergy Reaction CORTISONE 05/09/2009 14 - Other: See Comments Comments: [place] real hot, as if someone threw boiling [...] * Hyperlipidemia [E78.5] Polyneuropathy in diabetes ([facility]) [E11.42] 07/27/2005 DIABETES MELLITUS TYPE II UNCONTR UNCOMPL [IMO0*07/27/2005 0 08/09/2008 More... PROTEINURIA [R80.9] 08/11/2007 Erectile dysfunction associated with type 2 diaz*07/09/2008 Overweight [E66.3] 07/09/2008 Diabetes mellitus type 2, uncontrolled, with co*09/18/2008 Other specified gastritis without mention of he*09/18/2008 0 07/07/2015 BPH w/o urinary obs/LUTS [N40.0] 09/18/2008 09/08/2011 Background diabetic retinopathy(362.01) ([facility]) [*09/18/2008 0 06/30/2015 Shoulder pain [M25.519] 09/25/2008 [...] on 2019-09-28 CNPN Telephone (OPHTMN) Normal 09-28-2019 [place] SHIRIN Whipple SR. ([id number]) 1945 [facility] Date Time Provider Department ([id number]) 09/28/19 ADIA FINNEGAN OPHTMN During your visit today, we recorded the following informati on about you: Shruthi Vargas 09/28/2019 8:43 AM Signed Patient called [phone] He was seen by Dr. Mcdonnell for a pressure check last w [place]. wanted to let you know he has [...] blood sugar control and close follow-up with PCP/motor coach chauffeur - Working on adjusting insulin 2. Q [...] components on?03/15/2019 ? ? Adia Finnegan MD [facility] Chair of Ophthalmology Research Professor of Ophthalmology, [facility] Vitreoretinal Staff, [facility] ? ? ? Roma Hawkins LPN 10/10/2019 [...] 05/09/2009 14 - Other: See Comments Comments: [place] real hot, as if someone threw boiling [...] [N40.0] 09/18/2008 09/08/2011 Background diabetic retinopathy(362.01) ([facility]) [*09/18/2008 0 06/30/2015 Shoulder pain [M25.519] 09/25/2008 [...] on 2019-09-19 CNPN Telephone (INTMWS) Normal 09-19-2019 [place] SHIRIN Whipple SR. ([id number]) 1945 M [place] Date Time Provider Department ([id number]) 09/19/19 JESSE GLOVER INTMWS During your visit [...] 500 mg per day per LISA Nash BLAST FURNACE KEEPER; last visit with her was about a [...] 05/09/2009 14 - Other: See Comments Comments: [place] real hot, as if someone threw boiling water o n him ZESTRIL (LISINOPRIL) 01/29/2009 5 - Intolerance Comments: ARF, hypokalemia Date Reviewed: 08/28/2019 Reviewed by: Trudy Wilson - Fully Assessed Reason for Visit: kidney function [Other] Visit Diagnoses:Screening for genitourinary condition [Z13.8 9] CKD (chronic kidney disease) stage 3, GFR 30-59 ml/min ([facility]) [N18.3] Type 2 DM with CKD stage 3 and hypertension ([facility]) [E11.22, I12.9, N18.3] 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] Mixed hyperlipidemia [E78.2] Hypertension goal BP (blood pressure) < 140/90 [I10] Uncontrolled type 2 diabetes mellitus with complication, wit h long-term current use of insulin ([facility]) [E11.8, E11.65, Z79.4 ] Diabetic polyneuropathy associated with diabetes mellitus du e to underlying condition ([facility]) [E08.42] Order(s):NIFEdipine ER (PROCARDIA XL) 90 mg [...] [N40.0] 09/18/2008 09/08/2011 Background diabetic retinopathy(362.01) ([facility]) [*09/18/2008 0 06/30/2015 Shoulder pain [M25.519] 09/25/2008 [...] on 2019-09-17 CNPN Telephone (NEPHST) Normal 09-17-2019 [place] SHIRIN Whipple SR. ([id number]) 1945 [facility] Date Time Provider Department ([id number]) 09/17/19 TERESSA MARRERO NEPH During your visit [...] 05/09/2009 14 - Other: See Comments Comments: [place] real hot, as if someone threw boiling water o n him ZESTRIL (LISINOPRIL) 01/29/2009 5 - Intolerance Comments: ARF, hypokalemia Date Reviewed: 08/28/2019 Reviewed by: Trudy Wilson - Fully Assessed Reason for Visit: Abnormal Kidney Tests [359] Primary Visit Diagnosis:Type 2 DM with CKD stage 3 and hyper tension (HCC) [E11.22, I12.9, N18.3] Order(s):BASIC METABOLIC PNL [SQBMP] Order #: [id number] FUT URE Prescriptions as of 09/17/2019 Sig: [...] Bilirubin, Urine Negative Negative Normal 09-14-2019 Cl [facility] (16723) Comment: Performed By: #### UAWMIC ## ## [facility] [address] [place] [address] Clarity (U) Clear Clear Normal 09-14-2019 [facility] (32121) Comment: Performed By: #### UAWMIC ## ## [facility] [place] [address] Color (U) Light Yellow Yellow Critically abnormal 020 [facility] (64824) Comment: Performed By: #### UAWMIC ## ## [facility] [address] [place] [address] Comments SEE COMMENT Normal 09-14-2019 [facility] (71914) Comment: Result Comment: N/A Performed By: #### UAWMIC ## ## [facility] [address] [place] [phone] Glucose Ql (U) Negative Negative Normal 09-14-2019 [facility] (26577) Comment: Performed By: #### UAWMIC ## ## [facility] [address] [place] [phone] Hemoglobin/Blood,Ur Negative Negative Normal 09-14-2019 [facility] (77974) Comment: Performed By: #### UAWMIC ## ## [facility] [place] [phone] Ketones Ql (U) Negative Negative Normal 09-14-2019 [facility] (20205) Comment: Performed By: #### UAWMIC ## ## [facility] [place] [phone] Leukest Negative Negative Normal 09-14-2019 [facility] (47322) Comment: Performed By: #### UAWMIC ## ## [facility] [address] [place] [address] Nitrite Ql (U) Negative Negative Normal 09-14-2019 [facility] (29656) Comment: Performed By: #### UAWMIC ## ## [facility] [address] [place], [place] [address] pH (Bld) 6.0 5.0-8.0 Normal 09-14-2019 [facility] (11930) Comment: Performed By: #### UAWMIC ## ## [facility] [place] [address] Protein (U) 1+ Negative mg/dL Critically abnormal 09-14-19 [facility] [Mass/Vol] [place] (85824) Comment: Performed By: #### UAWMIC ## ## [place] [address] RBC (U) [#/Vol] 0-3 0-3 Normal 09-14-2019 [facility] (35823) Comment: Performed By: #### UAWMIC ## ## Danielle [address] [address] [place], [place] [address] Specific [place], Ur 1.017 1.005-1.030 Normal 020 [facility] (01581) Comment: Performed By: #### UAWMIC ## ## [place] [address] [place] [address] Urine Bj Comment SEE COMMENT Normal 09-14-2019 [facility] (80364) Comment: Result Comment: N/A Performed By: #### UAWMIC ## ## [facility]0 [place] [id number] Urobilinogen Qn (U) 1+ Negative E.U./dL Critically 0 [facility] (74158) Comment: Performed By: #### UAWMIC ## ## [facility] [address] [address] WBC (Bld) [#/Vol] 0-5 0-5 Normal 09-14-2019 [facility] (41692) Comment: Performed By: #### UAWMIC ## ## [facility] [address] [place], [place] [address] uric acid on 20 Urate [Mass/Vol] 8.1 4.0-8.1 mg/dL Normal 09-14-2019 [facility] (45836) renal function panel on 2019-09-14 Albumin [Mass/Vol] 4.1 3.9-4.9 g/dL Normal 09-14-2019 [facility] (12082) Comment: Performed By: #### PTHI, RFP ####[place] [address] [place], [place] [phone]- [phone] Anion gap [Moles/Vol] 11 9-18 mmol/L Normal 09-14-19 [facility] (05447) Comment: Performed By: #### PTHI, RFP ####[place] [address] [place], [place] [phone]- [phone] Calcium [Mass/Vol] 9.2 8.5-10.2 mg/dL Normal 09-14-2019 [facility] (12788) Comment: Performed By: #### PTHI, RFP ####[facility] [place], [place] [phone] Chloride [Moles/Vol] 103 97-105 mmol/L Normal 0 [facility] (80084) Comment: Performed By: #### PTHI, RFP ####[facility], [place] [phone]- [phone] CO2 [Moles/Vol] 25 22-30 mmol/L Normal 09-14-2019 [facility] (76117) Comment: Performed By: #### PTHI, RFP ####[facility], [place] [phone] Creatinine [Mass/Vol] 1.97 0.73-1.22 mg/dL High 09-14-19 [facility] (00097) Comment: Performed By: #### PTHI, RFP ####[facility] [address] [place], [place] [phone] eGFR- Amer. 41 Normal 09-14-2019 [facility] (75981) Comment: Performed By: #### PTHI, RFP ####[facility] [address] [place], [place] [phone]- [phone] GFR/1.73 sq M predicted among 34 . Normal 09-14-2019 [facility] non-blacks MDRD (S/P/Bld) [Vol (46487) rate/Area] Comment: Result Comment: eGFR (Estima violet [...] actual GFR. Performed By: #### PTHI, RFP ####[facility] [address] [place], [place] [phone] Glucose [Mass/Vol] 147 74-99 mg/dL High 09-14-2019 [facility] (22324) Comment: Result Comment: The [place] Diabetes Association (ADA) provides guidance for cutoff [...] for diagnosis of diabetes. Reference: Standards of [facility] Care in Diabetes 2016, [place] Diabetes Association. Diabetes Care. 2016.39(Suppl 1). Performed By: #### PTHI, RFP ####[place] [address] [place], [place] [phone] Phosphate [Mass/Vol] 4.2 2.7-4.8 mg/dL Normal 0 [facility] (04875) Comment: Performed By: #### PTHI, RFP ####[place] [address] [place], [place] [phone]- [phone] Potassium [Moles/Vol] 4.4 3.7-5.1 mmol/L Normal 09-14-19 20 [facility] (35307) Comment: Performed By: #### PTHI, RFP ####[address] [place], [place] [phone]- [phone] Sodium [Moles/Vol] 139 136-144 mmol/L Normal 09-14-2019 [facility] (64399) Comment: Performed By: #### PTHI, RFP ####[place] [address] [place], [place] [phone] Urea nitrogen [Mass/Vol] 34 9-24 mg/dL High 09-13 [facility] (94354) Comment: Performed By: #### PTHI, RFP ####[place] [address] [place], [place] [phone]- [phone] pth, intact on 2019 PTH, Intact 91 15-65 pg/mL High 09-14-2019 [facility] (35113) Comment: Performed By: #### PTHI, RFP ####[place] [address] [place], [place] [phone]- [phone] protein/creatinine ratio on 2019-09-14 Creatinine,Urine,Ran 148.5 20-300 mg/dL Normal 0 [facility] (77187) Comment: Performed By: #### PRATIO ## ##[facility] [address] [place], [place] [phone] Protein (U) [Mass/Vol] 20 0-20 mg/dL Normal 09-13- 020 [facility] (20258) Comment: Performed By: #### PRATIO ## ##[facility] [address] [place], [place] [phone] Protein/Creatinine Ratio 0.1 <0.2 Normal 09-13 [facility] (63159) Comment: Performed By: #### PRATIO ## ##[facility] [address] [place], [place] [phone] hemoglobin on 09-13 Hemoglobin (Bld) 10.9 13.0-17.0 g/dL Low 09-14-2019 [facility] [place] [Mass/Vol] [place] ([address]) hematocrit on 09-13 Hematocrit (Bld) [Volume 34.9 39.0-51.0 % Low 09-13 [facility] fraction] (30513) cnpn on 2019-09-07 CNPN Telephone (OPHTMN) Normal 09-07-2019 [place] [facility] SHIRIN WEST SRJi ([id number]) 1945 [facility] Date Time Provider Department ([id number]) 09/07/19 ADIA FINNEGAN OPHULISES During your visit [...] but will come if needed. Please advise [phone] (home) Adia Finnegan at 03/15/2019 10:15 AM Status: Signed 1. Insulin dependent Diabetes Mellitus ? ? Hemoglobin A1C (%) Date Value 10/18/2017 9.9 05/25/2017 7.9 ) - Stressed blood pressure and blood sugar control and close follow-up with PCP/motor coach chauffeur - Working on adjusting insulin 2. Q [...] have discussed the case and the master caabllerogement of this patient's care with the Resident/Fellow, if applicable . I also have reviewed and agree with the assessment and plan as stated above and agree with all of its relevant components on 03/15/2019 ? ? Adia Finnegan MD [facility] Chair of Ophthalmology Research Professor of Ophthalmology, [facility] Vitreoretinal Staff, [facility] ? Lazarus Delaney 09/07/2019 2:39 PM Signed Notified. Elisha From: Jose Finnegan, Adia Hanson Sent: Saturday, September 07, 2019 2:37 PM To: Lazarus Delaney Cc: Shruthi Vargas ; Karthik Vera Subject: Re: Shirin West Appt question Ok to move till 3 months from now Sent from my Kijamii [place]ag[place] Allergies As of Date: 09/07/2019 Noted Allergy Reaction CORTISONE 05/09/2009 14 - Other: See Comments Comments: [place] real hot, as if someone threw boiling [...] in stage 3 chronic kidney disease ([facility]) * Hypertension goal BP (blood pressure) < 140/90 * Hyperlipidemia [E78.5] Polyneuropathy in diabetes ([facility]) [E11.42] 07/27/2005 DIABETES MELLITUS TYPE II UNCONTR UNCOMPL [IMO0*07/27/2005 0 08/09/2008 More... PROTEINURIA [R80.9] 08/11/2007 Erectile dysfunction associated with type 2 diaz*07/09/2008 Overweight [E66.3] 07/09/2008 Diabetes mellitus type 2, uncontrolled, with co*09/18/2008 Other specified gastritis without mention of he*09/18/2008 0 07/07/2015 BPH w/o urinary obs/LUTS [N40.0] 09/18/2008 09/08/2011 Background diabetic retinopathy(362.01) ([facility]) [*09/18/2008 0 06/30/2015 Shoulder pain [M25.519] 09/25/2008 [...] 09/07/19 progress on 2019-08 PROGRESS HNO ID: [id number] Normal 08-28-2019 [facility] Author: Trudy Wilson [place] ([id number]) Service: ? Author Type: Physician Type: Progress [...] PM. progress on 2019-07 PROGRESS HNO ID: [id number] Normal 08-22-2019 [place] Author: Teressa [facility] Service: ? [place] Author Type: Physician ([id number]) Type: Progress Notes Filed: 08/22/2019 1:05 PM Note Text: [facility] NEPHROLOGY AND HYPERTENSION [facility] NEPHROLOGY: Name:Shirin West Sr. The patient, Shirin West Sr., identity was verified by name and MRN. CHIEF COMPLAINT: F/U for DM2 with diabetic CKD stage 3 w/HTN Initial visit with me today-patient was followed by [facility] neph rology at [facility]-last seen by Dr. Ponce and [...] w as 1.89mg/dl Follows with a non-[facility] spinning frame changer-has appt with him today Patient denies CP, [...] (15) units at bed time - Insulin Newton, Disposable, (1ST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 [facility] history, review of systems, surgical history, and [...] Normal 05-01-2019 [facility] SHIRIN Whipple SR. ([id number]) 1945 [facility] Date Time Provider Department ([id number]) 05/01/19 JESSE GLOVER INTMWS During your visit today, we recorded the following informati on about you: Master Palacios RN 05/01/2019 1:49 PM Signed Patient reports the pended Rx's were sent to [facility], and they should have been sent to [facility]. Cancelled Rx's at [facility]. Spoke with Keanu. Allergies As of Date: 05/01/2019 Noted Allergy Reaction CORTISONE 05/09/2009 14 - Other: See Comments Comments: [place] real hot, as if someone threw boiling water o n him ZESTRIL (LISINOPRIL) 01/29/2009 5 - Intolerance Comments: ARF, hypokalemia Date Reviewed: 04/18/2019 Reviewed by: Teressa Marrero - Fully Assessed Reason for Visit: Refill Request [94] Visit Diagnosis:Uncontrolled type 2 diabetes amadou litus with complication, with long-term current use of insulin ([facility]) [E11.8, E11.65, Z79.4 ] Order(s):insulin glargine (LANTUS SOLOSTAR U-100 INSUL IN) 100 unit/mL (3 mL) inpnTake ten (10) units in the AM and fifteen (15) units at bed timeDisp: 5 PenRfl: 5 Insulin Newton, Disposable, (1ST TIER UNIFINE PENTIPS) 31 g [...] [N40.0] INVALID FOR*09/08/2011 Background diabetic retinopathy(362.01) ([facility]) [*INVALID FOR* 06/30/2015 Shoulder pain [M25.519] INVALID [...] for discontinue is not on file. Insulin Newton, Disposable, (1ST TI* 400 * 3 04/25/201905/01/2019 Sig: Use as directed 4 times a day. Dx: E11.65 Disc: Reason for discontinue is not on file. Encounter Status:Closed by AMERICA MCGINNIS CNP on 05/01/19 obsolete on 2019-03 OBSOLETE Refill (OPHTSA) Normal 04-25-2019 [facility] SHIRIN Whipple SR. ([id number]) 1945 [facility] Date Time Provider Department ([id number]) 04/25/19 TRUDY WILSON OPHTSA During your visit today, we recorded the following informati on about you: Niya Calix [facility] 04/25/2019 9:55 AM Signed Patient has been identified by name and date of : Yes Pending Prescriptions Disp Refills TIMOLOL MALEATE 0.5 % EYE DROPS Sig: Use 1 Drop in both eyes twice daily. Use at 6 AM and 6 PM CLARKE: No LATANOPROST 0.005 % EYE DROPS Sig: Use 1 Drop in both eyes daily at bedtime. CLARKE: No RX INSTRUCTIONS: Patient aware RX will be sent to pharmacy. No need to notify patient. Niya Calix Pss Allergies As of Date: 04/25/2019 Noted Allergy Reaction CORTISONE 05/09/2009 14 - Other: See Comments Comments: [place] real hot, as if someone threw boiling [...] in stage 3 chronic kidney disease ([facility]) * Hypertension goal BP (blood pressure) < [...] [N40.0] INVALID FOR*09/08/2011 Background diabetic retinopathy(362.01) ([facility]) [*INVALID FOR* 06/30/2015 Shoulder pain [M25.519] INVALID [...] on 04/25/19 OBSOLETE Refill (INTMWS) Normal 04-25-2019 [facility] SHIRIN Whipple SR. ([id number]) 1945 [facility] Date Time Provider Department ([id number]) 04/25/19 JESSE GLOVER INTMWS During your visit [...] directed 4 times a day. Dx: E11.65 LCARKE: No Date of last office visit in primary care: 11/30/2018 4 month follow-up scheduled w/PCP: 05/25/2019 Roma Hawkins LPN Allergies As of Date: 04/25/2019 Noted Allergy Reaction CORTISONE 05/09/2009 14 - Other: See Comments Comments: [place] real hot, as if someone threw boiling [...] at bed timeDisp: 5 PenRfl: 5 Insulin Newton, Disposable, (1ST TIER UNIFINE PENTIPS) 31 g [...] in stage 3 chronic kidney disease ([facility]) * Hypertension goal BP (blood pressure) < 140/90 * Hyperlipidemia [E78.5] Polyneuropathy in diabetes ([facility]) [E11.42] INVALID FOR* DIABETES MELLITUS TYPE II UNCONTR UNCOMPL [E11.*INVALID FOR* 08/09/2008 More... PROTEINURIA [R80.9] INVALID FOR* Erectile dysfunction associated with type 2 diaz*INVALID FOR* Overweight [E66.3] INVALID FOR* Diabetes mellitus type 2, uncontrolled, with co*INVALID FOR* Other specified gastritis without mention of he*INVALID FOR* 07/07/2015 BPH w/o urinary obs/LUTS [N40.0] INVALID FOR*09/08/2011 Background diabetic retinopathy(362.01) ([facility]) [*INVALID FOR* 06/30/2015 Shoulder pain [M25.519] INVALID [...] for discontinue is not on file. Insulin Newton, Disposable, (1ST TI* 400 * 3 04/26/2018 Sig: Use as directed 4 times a day. Dx: E11.65 Disc: Reason for discontinue is not on file. Encounter Status:Closed by AMERICA MCGINNIS OUTSIDE SALES MANAGER on 04/25/19 urinalysis with microscopic on 2019-04-18 Bilirubin, Urine Negative Negative Normal 04-18-2019 Cl [facility] (07393) Comment: Performed By: #### Van WISE #### [facility] [address] [place] [id number] Cast SEE COMMENT 0 Critically abnormal 04-18-20 19 [facility] (25814) Comment: Result Comment: 4-10 Hyaline Cast Performed By: #### Van WISE AWMIC #### [facility] [address] [place] [address] Clarity (U) Clear Clear Normal 04-18-2019 [facility] (97574) Comment: Performed By: #### Van WISE AWMIC #### [facility] [address] [place] [address] Color (U) Yellow Yellow Normal 04-18-2019 [facility] (80885) Comment: Performed By: #### Van WISE AWMIC #### [facility] [address] [place] [address] Comments SEE COMMENT Normal 04-18-2019 [facility] (74912) Comment: Result Comment: N/A Performed By: #### Van WISE AWMIC #### [facility] [address] [place] [address] Epithelial cells LM.HPF SEE COMMENT Normal 03-28 [facility] (Urine sed) [#/Area] [place] (19769) Comment: Result Comment: Few Squamous Epithelial Cells Few Non-Squamous Epithelial Cell s Performed By: #### Van WISE AWMIC #### [facility] [address] [place] [phone] Glucose Ql (U) >=500 Negative Critically abnormal 04-18 [facility] (92224) Comment: Performed By: #### Van WISE AWMIC #### [facility] [address] [place] [address] Hemoglobin/Blood,Ur Negative Negative Normal 04-18-2019 [facility] (95685) Comment: Performed By: #### Van WISE AWMIC #### [facility] [address] [place] [address] Ketones Ql (U) Negative Negative Normal 04-18-2019 [facility] (70878) Comment: Performed By: #### BILLIE U AWMIC #### [facility] [address] [place], [place] [address] Leukest Negative Negative Normal 04-18-2019 [facility] (37433) Comment: Performed By: #### BILLIE U AWMIC #### [facility] [address] [place] [address] Nitrite Ql (U) Negative Negative Normal 04-18-2019 [facility] (31177) Comment: Performed By: #### BILLIE U AWMIC #### [facility] [address] [place] [address] pH (Bld) 5.0 4.5-8.0 Normal 04-18-2019 [facility] (41351) Comment: Performed By: #### BILLIE U AWMIC #### [facility] [address] [place] [address] Protein (U) 100 Negative mg/dL Critically abnormal 04-18-20 19 [facility] [Mass/Vol] [place] (56387) Comment: Performed By: #### BILLIE U AWMIC #### [facility] [address] [place] [address] RBC (U) [#/Vol] 0-3 0-3 Normal 04-18-2019 [facility] (99295) Comment: Performed By: #### BILLIE U AWMIC #### [facility] [address] [place] [address] Specific [place], [place] 1.017 1.005-1.030 Normal 019 [facility] (94763) Comment: Performed By: #### BILLIE U AWMIC #### [facility] [address] [place], [place] [address] Urine Bj Comment SEE COMMENT Normal 04-18-2019 [facility] (52790) Comment: Result Comment: Urine receiv ed in non-preservative tube. Interpret results with caution. To ensure opti mal and accurate results, transfer urine to the BD Vacutainer Plus urine pre servative tube. Performed By: #### Van WISE AWMIC #### [facility] [address] [place], [place] [address] Urobilinogen Qn (U) Normal Normal Normal 04-18-2019 [facility] (91328) Comment: Performed By: #### Van WISE AWMIC #### [facility] [address] [place], [place] [address] WBC (Bld) [#/Vol] 0-5 0-5 Normal 04-18-2019 C [facility] (22577) Comment: Performed By: #### Van WISE AWMIC #### [facility] [address] [place], [place] [address] protein/creatinine ratio on 2019-04-18 Creatinine,Urine,Ran 175.4 20-300 mg/dL Normal 201 9 [facility] (12107) Comment: Performed By: #### Van WISE AWMIC #### [facility] [address] [place], [place] [address] Protein (U) [Mass/Vol] 77 0-20 mg/dL High 04-18-2 019 [facility] (26604) Comment: Performed By: #### Van WISE AWMIC #### [facility] [address] [place], [place] [address] Protein/Creatinine Ratio 0.4 <0.2 High 04-18 [facility] (95299) Comment: Performed By: #### Van WISE AWMIC #### [facility] [address] [place], [place] [address] progress on 2019-03 PROGRESS HNO ID: [id number] Normal 04-18-2019 [place] Author: Teressa Marrero [facility] Service: ? [place] Author Type: Physician ([id number]) Type: Progress Notes Filed: 04/18/2019 10:38 AM Note Text: [facility] NEPHROLOGY AND HYPERTENSION [facility] NEPHROLOGY: Name:Shirin West Sr. The patient, Shirin West Sr., identity was verified by name and MRN. CHIEF COMPLAINT: F/U for DM2 with diabetic CKD stage 3 w/HTN Initial visit with me today-patient was followed by [facility] rology at [facility]-last seen by Dr. Ponce and [...] by mouth trevin y with breakfast. Insulin Newton, Disposable, (1ST TIER UNIFINE PENTIPS) 31 g [...] Diagnosis Date - Background diabetic retinopathy(362.01) 09/18/2008 [facility] eye. - Cataract of left eye - Chronic kidney disease, unspecified - CKD (chronic kidney disease) stage 3, GFR 30-59 ml/min (HC C) 05/26/2017 - Coloboma of iris OD - Depressive disorder, not elsewhere classified - Erectile dysfunction associated with type 2 diabetes isai garcia ([facility]) 07/09/2008 - Esophageal reflux - Essential hypertension, [...] - Vitreous hemorrhage of left eye ([facility]) Social History Tobacco Use - Smoking status: [...] with Madiha Hamm SIGNATURE:Teressa Marrero MD Staff Gaggerman DATE:April 18, 2019 TIME: 10:35 AM cnov on 2019-04-18 CNOV Office Visit (NEPHST) Normal 04-18-20 [place] SHIRIN Whipple SR. ([id number]) 1945 [facility] Date Time Provider Department ([id number]) 04/18/19 9:25 AM TERESSA MARRERO NEPHST During your visit today, we recorded the following informati on about you: Temperature Pulse Blood pressure Weight 98 degrees 72/minute 161/80 86.2 kg Height 1.778 m Teressa Marrero MD 04/18/2019 10:38 AM Signed [facility] NEPHROLOGY AND HYPERTENSION [facility] NEPHROLOGY: Name:Shirin West Sr. The patient, Shirin West Sr., identity was verified by name and MRN. CHIEF COMPLAINT: F/U for DM2 with diabetic CKD stage 3 w/HTN Initial visit with me today-patient was followed by [facility]y at [facility]-last seen by Dr. Ponce and [...] b y mouth daily with breakfast. Insulin Newton, Disposable, (1ST TIER UNIFINE P ENTIPS) 31 [...] Diagnosis Date - Background diabetic retinopathy(362.01) 09/18/2008 [facility] eye. - Cataract of left eye [...] with Madiha Hamm SIGNATURE:Teressa Marrero MD Staff Gaggerman DATE:April 18, 2019 TIME: 10:35 AM Teressa [...] improve our service to you by calling [phone] You may be receiving a survey regarding your care today. If you do, please take a few minutes to fill it out and send it back. It would be greatly appreciated. Referring Provider: SELF [[id number]] Allergies As of Date: 04/18/2019 Noted Allergy Reaction CORTISONE 05/09/2009 14 - Other: See Comments Comments: [place] real hot, as if someone threw boiling [...] hyperlipidemia type [E78.5] Order(s):UA DIP, URINE (POC) [[id number]] Order #: [id number] ec. #:[id number] RENAL FUNCTION PANEL [SQRFP] Order #: [id number] FUTURE PTH INTACT BLD [SQPTHI] Order #: [id number] FUTURE PROTEIN CREATININE RATIO [SQPRATIO] Order #: [id number] FUTU RE URINALYSIS WITH MICROSCOPIC [SQUAWMIC] Order #: [id number] F UTURE URIC ACID BLOOD [SQURIC] Order #: [id number] FUTURE HEMOGLOBIN (HGB) [SQHGB] Order #: [id number] FUTURE HEMATOCRIT (HCT) [SQHCT] Order #: [id number] FUTURE RENAL FUNCTION PANEL [SQRFP] Order #: [id number] FUTURE VITAMIN D 25 HYDROXY [SQVITD] Order #: [id number] FUTURE PTH INTACT BLD [SQPTHI] Order #: [id number] FUTURE URINALYSIS WITH MICROSCOPIC [SQUAWMIC] Order #: [id number] F UTURE PROTEIN CREATININE RATIO [SQPRATIO] Order #: [id number] C3 COMPLEMENT BLD [[id number]] Order #: [id number] FUTURE C4 COMPLEMENT BLD [[id number]] Order #: [id number] FUTURE HEP ACUTE PANEL/RNA [SQHACRNA] Order #: [id number] FUTURE SED RATE WESTERGREN [SQWSR] Order #: [id number] FUTURE Prescriptions as of 04/18/2019 Sig: METFORMIN [...] [N40.0] INVALID FOR*09/08/2011 Background diabetic retinopathy(362.01) ([facility]) [*INVALID FOR* 06/30/2015 Shoulder pain [M25.519] INVALID [...] improve our service to you by calling [phone] You may be receiving a survey regarding [...] Albumin [Mass/Vol] 4.4 3.9-4.9 g/dL Normal 04-16-2019 [facility] (76971) Comment: Performed By: #### RFP ####C [facility] [address] [place], [place] [phone] Anion gap [Moles/Vol] 14 9-18 mmol/L Normal 04-16-20 [facility] (06252) Comment: Performed By: #### RFP ####C [facility] [address] [place], [place] [phone]- [phone] Calcium [Mass/Vol] 9.3 8.5-10.2 mg/dL Normal 04-16-2019 [facility] (39963) Comment: Performed By: #### RFP ####C [facility] [address] [place], [place] [phone] Chloride [Moles/Vol] 102 97-105 mmol/L Normal 9 [facility] (68690) Comment: Performed By: #### RFP ####C [facility] [place], [place] [phone] CO2 [Moles/Vol] 22 22-30 mmol/L Normal 04-16-2019 [facility] (48990) Comment: Performed By: #### RFP ####C [address] [phone] Creatinine [Mass/Vol] 1.78 0.73-1.22 mg/dL High 04-16-20 19 [facility] (04196) Comment: Performed By: #### RFP ####C [facility] [place] [address] [phone] eGFR- Amer. 46 Normal 04-16-2019 [facility] (86482) Comment: Performed By: #### RFP ####C [address] [phone] GFR/1.73 sq M predicted among 38 . Normal 04-16-2019 [facility] non-blacks MDRD (S/P/Bld) [Vol (33806) rate/Area] Comment: Result Comment: eGFR (Estima violet GFR) Units of measure: mL/min/1.73 meters squared eGFR is derived from the ree xpressed MDRD Study equation using the following parameters: serum creatinine, age, gender and race. The creatinine assay has been calibrated to be traceable to [employer]. An eGFR <60 mL/min/1.73m2 fo r >3 months is consistent with chronic kidney disease. Refer to KDOQI guidelines for clinical interpretation. In patients with unstable re nal function, e.g. those with acute kidney injury, the eGFR may not accurately reflect actual GFR. Performed By: #### RFP ####C [facility] [place], [place] [phone] Glucose [Mass/Vol] 239 74-99 mg/dL High 04-16-2019 [facility] (07042) Comment: Result Comment: The Micronesian Diabetes Association (ADA) provides guidance for cutoff [...] for diagnosis of diabetes. Reference: Standards of [facility] Care in Diabetes 2016, Micronesian Diabetes Association. Diabetes Care. 2016.39(Suppl 1). Performed By: #### RFP ####C [facility] [place] [address] [phone] Phosphate [Mass/Vol] 3.3 2.7-4.8 mg/dL Normal 9 [facility] (80459) Comment: Performed By: #### RFP ####C [address] [phone] Potassium [Moles/Vol] 5.3 3.7-5.1 mmol/L High 04-16-20 19 [facility] (24155) Comment: Performed By: #### RFP ####C [facility] [place], [place] [phone] Sodium [Moles/Vol] 138 136-144 mmol/L Normal 04-16-2019 [facility] (57863) Comment: Performed By: #### RFP ####C [facility] [place] [address] [phone] Urea nitrogen [Mass/Vol] 33 9-24 mg/dL High 04-16 [facility] (41067) Comment: Performed By: #### RFP ####C [facility] [place] [address] [phone] lipid panel, basic on 2019-04-16 Cholesterol [Mass/Vol] 147 <200 mg/dL Normal 04-16- 019 [facility] (59804) Comment: Result Comment: <200 mg/dL, Desirable 200-239 mg/dL, Borderline hi gh >239 mg/dL, High Performed By: #### LIPB, HBA 1C ####[facility] [place], [place] [phone] Cholesterol in HDL 52 >39 mg/dL Normal 04-16-2019 [facility] [Mass/Vol] (96101) Comment: Result Comment: 40-59 mg/dL, Acceptable >59 mg/dL, High: Negative ri sk factor for coronary heart disease <40 mg/dL, Low: Positive ris k factor for coronary heart disease Performed By: #### LIPB, HBA 1C ####[address] [phone] Cholesterol in LDL 73 <100 mg/dL Normal 04-16-2019 [facility] [Mass/Vol] [place] (61898) Comment: Result Comment: <100 mg/dL, Optimal 100-129 mg/dL, Near optimal/ above optimal 130-159 mg/dL, Borderline hi gh 160-189 mg/dL, High >189 mg/dL, Very high Secondary prevention optimal LDL Cholesterol levels are recommended to be < 70 mg/dL Performed By: #### LIPB, HBA 1C ####[place] [id number] [place], [place] [phone] Fasting Time 12 hrs Normal 04-16-2019 [facility] (34552) Comment: Performed By: #### LIPB, HBA 1C ####[address] [phone] LDL:HDL Ratio 1.40 <2.54 Normal 04-16-[address] [facility] (21962) Comment: Result Comment: Reference: 1. National Cholesterol Educ ation Program ATP III Guideline At-A-Glance Quick Desk Reference: National Heart, Lung, and Blood [place]. National Institutes of Health. 2001: NIH Publication No. 01-3305. 2. An International Atherosc lerosis Society position paper: global recommendations for the management of dyslipidemia: executive summary, Atherosclerosis. 2014: 232(2):410-413. Performed By: #### LIPB, HBA 1C ####[facility] [place], [place] [phone]- [phone] Non HDL Cholesterol 95 <130 mg/dL Normal 04-16-2019 [facility] (94409) Comment: Result Comment: <130 mg/dL, Optimal 130-159 mg/dL, Near optimal/ above optimal 160-189 mg/dL, Borderline hi gh 190-219 mg/dL, High >219 mg/dL, Very high Secondary prevention optimal non HDL Cholesterol levels are recommended to be < 100 mg/dL Performed By: #### LIPB, HBA 1C ####[place] [address] [phone] TC:HDL Ratio 2.83 <5.10 Normal 04-16-2019 [facility] (65795) Comment: Performed By: #### LIPB, HBA 1C ####[place] [address] [place] [phone] Triglyceride [Mass/Vol] 108 <150 mg/dL Normal 2018 [facility] (33665) Comment: Result Comment: <150 mg/dL, Normal 150-199 mg/dL, Borderline hi gh 200-499 mg/dL, High >499 mg/dL, Very high Performed By: #### LIPB, HBA 1C ####[place] [address] [place] [phone] VLDL Cholesterol 22 <30 mg/dL Normal 04-16-2019 [facility] (25365) Comment: Performed By: #### LIPB, HBA 1C ####[place] [address] [place], [place] [phone] hemoglobin a1c on 2 HbA1c (Bld) [Mass fraction] 8.5 4.3-5.6 % High [facility] (09114) Comment: Result Comment: Micronesian Diaz betes Association guidelines indicate that patients with HgbA1c in the range 5.7-6.4% are at increased risk for development of diabetes, and intervention by lifestyle modification may be beneficial. HgbA1c greater o r equal to 6.5% is considered diagnostic of diabetes. Performed By: #### LIPB, HBA 1C ####[address] [phone] HbA1c (Bld) [Mass fraction] 197 mg/dL Normal [facility] (64902) Comment: Result Comment: eAG: (Estima violet average glucose) is a calculated value from HgbA1c and is representative government relations of the average blood glucose level in the last 2-3 month period. Performed By: #### LIPB, HBA 1C ####[address] [phone] albumin/creat ratio on 2019-04-16 Albumin Urine Random 649.0 mg/L Normal 9 [facility] (36121) Comment: Performed By: #### UACR #### [address] [phone] Albumin/Creat Ratio 223 <30 mg/g High 04-16-2019 [facility] (44284) Comment: Result Comment: Adult Male a nd [...] 3(1), 1-150. Performed By: #### UACR #### [address] [phone] Creatinine,Urine,Ran 290.4 20-300 mg/dL Normal 9 [facility] (91691) Comment: Performed By: #### UACR #### [facility] [address] [place], [place] [phone] obsolete on 2017-07 OBSOLETE Refill Normal 08-22-2017 [place] (AGCARDWST) SHIRIN WEST [facility] SRJi ([id number]) 1945 MDate Time Provider Department08/22/17 RASHAAD PIZARRO During M edical your visit today, we recorde d the following information about you:Carolyn Riley Psr 08/22/2017 3:13 PM Center SignedPatient has been ident ified by name and date of : YesLast office visit in this department: (0 0000) 08/08/2017RX INSTRUCTIONS:[facility]. No need to notify patient.Patient phones requesting refills as follow s:Pending Prescriptions Disp Refills CARVEDILOL 25 MG TABLET 270 tablet 3 Sig: Take 1.5 tablets by laura twice daily with meals. LCARKE: No Please review and advise.Carolyn Pizarro MD 07/29 4:46 PM SignedNoted and agree.Katerina Grimes, RN, RN 08/24/2017 1:43 PM Signede script confirmedAllergies As of Date: 08/22/2017 Noted Allergy ReactionCORTISONE 05/09/2009 14 - Other: See Comments Comments: [place] real hot, as if someone threw boiling [...] [E78.5] More... Polyneuropathy in diabetes ( [facility]) [E11.42] INVALID FOR* DIABETES MELLITUS TYPE II UNCONTR UNCOMPL [E11.*INVALID FOR*08/09/2008 More... PROTEINURIA [R80.9] INVALID FOR* Erectile dysfunction associated with type 2 diaz*INVALID FOR* Overweight [E66.3] INVALID FOR* Type 2 diabetes, uncontrolled, with retinopathy*INVALID FOR* Oth er specified gastritis without mention of he*INVALID FOR*07/07/2015 BPH w/o urinary obs/LUTS [N40.0] INV ALID FOR*09/08/2011 Background diabetic retinopathy(362.01) ([facility]) [*INVALID FOR*06/30/2015 Shoulder pain [M25.519] INVALID FOR*03/09/2011 [...] 08/24/17 progress on 2017-07 PROGRESS HNO ID: [id number]: Rashaad crowley 08-08-2017 Chong Canales: (none)Author Type: General PhysicianType: Progress NotesFiled: Medical 08/08/2017 3:15 PMNote Text:PERTINENT Center CARDIAC HISTORYHTNHLDMADHERENCE TO (60724) GUIDELINESACE-I or ARB for HF with prior LVEF<40 (NQF 0081) - N/AASA or Plavix for ASHD (NQF 0067) - metBeta tejas for ASHD with prior TX or prior LVEF<40 (NQF 0070) - N/ABeta [...] with treatment plan.This note was generated using OneClass voice recognition system, and theremay be some [...] clinic. [facility]ALLERGIES:ALLERGIESAllergen Reactions- Cortisone Other: See Comments [place] real hot, as if someone threw boiling water on him- Zestril [Lisinopril] Intolerance ARF, hypokalemiaCURRENT OUTPATIENT MEDICATIONS:metFORMIN ER (GLUCOPHAGE XR) 500 mg 24 hr tablet Take 1 tablet by mouthdaily with breakfast.brimonidine (ALPHAGAN P) 0.15 % ophthalmic solution Instill one drop ineach eye 2 times dailylosartan (COZAAR) 100 mg tablet Take 1 tablet by mouth once daily.Insulin Newton, Disposable, (1ST TIER UNIFINE PENTIPS) 31 gauge [...] was 93Electronically Signed:Rashaad Pizarro MDFebruary 2017 1:38 [facility]: Jesse Glover MD cnov on 2017-08-08 CNOV Office Visit Normal 08-08-2017 [place] (AGCARDWST) BRETTSHIRIN [facility] SR. ([id number]) 1945 MDate Time Provider Department08/08/17 1:30 PM RASHAAD PIZARRO During your visit today, we recorded the following information about you: Pulse Blood pressure Weight Cente r 62/minute 153/75 93.8 kgKenn kimber Pizarro MD 08/08/2017 3:15 PM SignedPERTINENT CARDIAC (71172) HISTORYHTNHLDMADHERENCE TO G UIDELINESACE-I or ARB for HF with prior LVEFANDlt;40 (NQF 0081) - N/AASA or Plavix for ASHD (NQF 0067) - metBeta tejas for ASHD with prior TX or prior LVEFANDlt;40 (NQF 0070) - N/ABeta [...] with treatment plan.This note was generated using Short [employer] recognition system, and there may besome incorrect [...] [facility]ALLERGIES:ALLERGIESAllergen Reactions- Cortisone Other: See Comments [place] real hot, as if someone threw boiling water on him- Zestril [Lisinopril] Intolerance ARF, hypokalemiaCURRENT OUTP ATIENT MEDICATIONS:metFORMIN ER (GLUCOPHAGE XR) 500 mg 24 hr tablet Take 1 tablet by mouth dailywith br eakfast.brimonidine (ALPHAGAN P) 0.15 % ophthalmic solution Instill one drop in eacheye 2 times dailylosa rtan (COZAAR) 100 mg tablet Take 1 tablet by mouth once daily.Insulin Newton, Disposable, (1ST TI ER UNIFINE PENTIPS) 31 [...] impaired, but stable.LDL was 93Electronically Signed:Rashaad Pizarro MDVeterans Health Administration [facility] [place] 2017 1:38 PMCC: Saji Godinez MD 08/08/2017 [...] over an hour talking aboutthe challenges of orbledo ing the way you eat. This is [...] programs in your area.Referring Provider: RASHAAD PIZARRO [[id number]]Allergies As of Date: 08/08/2017 Noted Allergy ReactionCORTISONE 05/09/2009 14 - Other: See Comments Comments: [place] real hot, as if someone threw boiling [...] yung [E78.5] More... Polyneuropathy in diabetes ([facility]) [E11.42] INVALID FOR* DIABETES MELLITUS TYPE II UN CONTR UNCOMPL [E11.*INVALID FOR*08/09/2008 More... PROTEINURIA [R80.9] INVALID FOR* Erectile dysfun ction associated with type 2 diaz*INVALID FOR* Overweight [E66.3] INVALID FOR* Type 2 diabetes, uncont rolled, with retinopathy*INVALID FOR* Other specified gastritis without mention of he*INVALID FOR* BPH w/o urinary obs/LUTS [N40.0] INVALID FOR*09/08/2011 Background diabetic retinopathy(362.01) ([facility]) [*INVALID FOR*06/30/2015 Shoulder pain [M25.519] INVALID FOR*03/09/2011 [...] following areas and comm it to making moth exterminator changes. EAT A WHOLE FOOD, PLANT BASED [...] program. Please speak to us or your [facility] physician about available programs. AVOID NICOTINE IN [...] [id number] 1. Body weight 89.45 kg 02-05-2020 [facility] (70068) BP Diastolic 70 mm[Hg] 02-05-2020 [facility] (49724) BP Systolic 142 mm[Hg] 02-05-2020 [facility] (49382) Height 177.8 cm 02-05-2020 [facility] (63967) Pulse (Heart Rate) 66 /min 02-05-2020 [place] [facility] jimbo (67187) Pulse Oximetry 96 % 02-05-2020 [facility] (66112) Encounters Date Type Reason Provider Location 04-07-2018 Ambulatory RASHAAD PIZARRO Facility:VIVEK PIZARRO [facility] 08-08-2017 - Ambulatory RASHAAD PIZARRO [facility] 08-08-2017 RASHAAD PIZARRO Medical [facility] RASHAAD PIZARRO ([id number]) [facility] Patient encounter Bursitis of Michelle [...] - Patient encounter Retinal edema Adia Finnegan [facility] 03-06-2020 procedure Comment: Retinal edema 02-28-2020 - Patient encounter Laceration without Brigitte Brace Vas cular Surgery 02-28-2020 procedure foreign body, left lower leg, subsequent encounter Comment: Laceration of left lower leg , subsequent encounter (Primary Dx) 02-18-2020 - Patient encounter External [facility] 02-18-2020 procedure Provider 02-14-2020 - Patient encounter Laceration without Brigitte Brace Vas cular Surgery 02-14-2020 procedure foreign body, left lower leg, subsequent encounter Comment: Laceration of left lower leg , subsequent encounter (Primary Dx) 02-05-2020 - Patient encounter Type 2 diabetes Chanda (Customer Acquisition Specialist) Endocr inology 02-05-2020 procedure mellitus [place] Comment: [...] Telephone encounter Jesse Glover In ternal Medicine [place] 03-17-2020 Comment: Appointment Procedures Procedure Name Date Provider Location Computerized ophthalmic 03-06-2020 Adia Finnegan [facility] imaging retina (08831) EXTERNAL LAB 02-18-2020 External Provider [facility] (91373) Colonoscopy 08-04-2016 - [facility] 08-04-2016 (26543) Plan of Treatment Plan Description Date Location DTAP,TDAP,TD (2 - Td) DTAP,TDAP,TD (2 - Td) 01-13-2028 - [facility] 01-13-2028 (29881) DILATED RETINAL EXAM DILATED RETINAL EXAM 03-06-2021 - [facility] 03-06-2021 ([id number]) ANNUAL PCP TEAM CHRONIC ANNUAL PCP TEAM CHRONIC 01-29-2021 - [facility] DISEASE VISIT DISEASE VISIT 01-29-2021 (89959) URINE ALBUMIN:CREATININE URINE ALBUMIN:CREATININE 12-18-2020 - [facility] RATIO RATIO 12-18-2020 (44486) LDL CHOLESTEROL LDL CHOLESTEROL 12-18-2020 - [facility] 12-18-2020 (28802) SERUM CREATININE SERUM CREATININE 12-18-2020 - [facility] 12-18-2020 (69339) HEMOGLOBIN/HEMATOCRIT HEMOGLOBIN/HEMATOCRIT 10-08-2020 - [facility] 10-08-2020 (75740) ALBUMIN/CREAT RATIO RND ALBUMIN/CREAT RATIO RND 07-29-2020 - [facility] UR UR Lab Routine Expected: 02-04-2021 (47055) 07/29/2020, Expires: 02/04/2021 Comment: Expected: 07/29/2020, s: 02/04/2021 COMP METABOLIC PANEL COMP METABOLIC PANEL 07-29-2020 - [facility] Lab Routine Expected: 02-04-2021 ([id number]) 07/29/2020, Expires: 02/04/2021 Comment: Expected: 07/29/2020, s: 02/04/2021 HGB A1C HGB A1C Lab Routine 07-29-2020 - 02-04-2021 [facility] ([id number]) Expected: 07/29/2020, Expires: 02/04/2021 Comment: Expected: 07/29/2020, s: 02/04/2021 LIPID PANEL BASIC LIPID PANEL BASIC Lab 07-29-2020 - [facility] Routine Expected: 02-04-2021 ([id number]) 07/29/2020, Expires: 02/04/2021 Comment: Expected: 07/29/2020, s: 02/04/2021 DILATED RETINAL EXAM DILATED RETINAL EXAM 06-22-2020 - [facility] 06-22-2020 ([id number]) HBA1C HBA1C 06-19-2020 - [facility] 06-19-2020 (49510) BP CONTROLLED BP CONTROLLED 06-04-2020 - [facility] (<130/80) (<130/80) 06-04-2020 (77094) DIABETIC FOOT EXAM DIABETIC FOOT EXAM 04-28-2020 - [facility] 04-28-2020 (68682) INFLUENZA (#1) INFLUENZA (#1) 2020 - [facility] 02-26-2020 (44343) COLONOSCOPY COLONOSCOPY 08-04-2019 - [facility] 08-04-2019 ([id number]) COLORECTAL CANCER COLORECTAL CANCER 08-04-2019 [facility] inic SCREENING,SEE MODIFIER SCREENING,SEE MODIFIER (4 5436) SHINGRIX VACCINE (2 of SHINGRIX VACCINE (2 of 12-15-2014 - [facility] [place] 3) 3) 06-10-2014 (41831) ADVANCE DIRECTIVE ADVANCE DIRECTIVE 02-07-2012 - [facility] DISCUSSION DISCUSSION 02-07-2012 (66011) no information [facility] (01412) Immunizations Vaccine Notes Status Date Location Influenza Vaccine, influenza virus (completed) 07-14-2012 - [facility] Split-Non Spec vaccine, unspecified 07-14-2012 (4419 5) formulation Influenza Seasonal influenza, high dose (completed) 06-04-2019 - [facility] - High Dose - Age seasonal, 06-04-2019 (95644) 65+ preservative-free Influenza Seasonal influenza, high dose (completed) 05-26-2017 - [facility] - High Dose - Age seasonal, 05-26-2017 (59960) 65+ preservative-free Influenza Seasonal influenza, high dose (completed) 03-16-2016 - [facility] - High Dose - Age seasonal, 03-16-2016 (02142) 65+ preservative-free Influenza Seasonal influenza, high dose (completed) 04-15-2014 - [facility] - High Dose - Age seasonal, 04-15-2014 (97963) 65+ preservative-free Influenza Seasonal influenza, seasonal, (completed) 06-02-2015 - [facility] Inj Age 3+ injectable 06-02-2015 (06240) Pneumococcal-13 Vac pneumococcal conjugate (completed) 03-10-2015 - [facility] Conjugate vaccine, 13 valent 03-10-2015 (43688) Pneumovax pneumococcal (completed) 03-20-2014 - [facility] polysaccharide vaccine, 03-20-2014 (441 95) 23 valent Pneumovax pneumococcal (completed) 07-31-2007 - [facility] polysaccharide vaccine, 07-31-2007 (441 95) 23 valent TD Adult tetanus and diphtheria (completed) 07-31-2007 - [facility] toxoids, adsorbed, 07-31-2007 (50734) preservative free, for adult use (2 Lf of tetanus toxoid and 2 Lf of diphtheria toxoid) Tdap (Age 7+) tetanus toxoid, reduced (completed) 01-12-2018 - [facility] diphtheria toxoid, and 01-12-2018 (4419 5) acellular pertussis vaccine, adsorbed Zostavax zoster vaccine, live (completed) 04-15-2014 - [facility] 04-15-2014 (99999) Payers Payer Name Policy Number Location HOSPITAL/MEDICAL GENERIC [id number] [facility] ([id number]) MEDICARE [id number] [facility] (44 195) MEDICARE A AND B [id number] [facility] (66363) MEDPAY [id number] [facility] (44 195) The following information is from the original human readable contentNo Payer Records FoundNo Payer Records FoundNo Payer Records FoundNo Payer Records FoundNo Payer Records Found Social History Type Social History Date Location Description Tobacco smoking status Former smoker 02-28-2020 - [facility] NHIS 04-07-2020 (14571) History of tobacco use Cigar Smoker [facility] (58389) Tobacco use and Never used 02-28-2020 - [facility] exposure 04-07-2020 (62548) Alcohol intake Current drinker of 02-28-2020 - [facility]finding[facility] 04-07-2020 (93419) Tobacco Comment quit 40 + years ago 06-02-2017 - [facility] 06-02-2017 (58790) Alcohol Comment rarely, 2-3 glasses red 08-04-2016 - [facility] wine per month 08-04-2016 (35470) Sex Assigned At Not on file [facility] (39983) Exposure to SARS-CoV-2 Not sure [facility] (event) (46249) Exposure to SARS-CoV-2 Unable to assess [facility] (event) (40487) The following information is from the original [...] as 04-08-2018 directed. Lens Iol Ultrasert 24 [id number]_[facility] 2016 - [id number] Use as directed 05-01-2019 times a day. [...] Allergen Reactions ? Cortisone Other: See Comments [place] real hot, as if someone threw boiling [...] in both eyes daily at bedtime. Insulin Newton, Disposable, (1ST TIER UNIFINE PENTIPS) 31 gauge [...] WOCN, CNP documented in this encounterChanda Phillips (Customer Acquisition Specialist) - 02/05/2020 1:00 PM EDT Reason for Consultation: DM Type 2 Referring Physician: Jesse Glover MD [address] [facility] [address] HISTORY OF PRESENT ILLNESS Mr. West is [...] mild anemia, secondary hyperparathyroidism Seeing cardiology in [place].Denies hx of [place], CVA, stents, CABG/CAD Feeling sluggish about noon. [...] disease) stage 3, GFR 30-59 ml/min ([facility]) 05/26/2017 ? Coloboma of iris OD ? [...] ? Vitreous hemorrhage of left eye ([facility]) PAST SURGICAL HISTORY Procedure Laterality Date ? AVASTIN (BEVACIZUMAB) 1.25MG INTRAVITREAL INJECTION OD (RIGHT EYE) Right 04/19/2018 LAST ? COLONOS W/REM POLYP SNARE 08/04/2016 Repeat 07/2019 ? COLONOSCOP W/ OR W/O [facility] SPEC Colonoscopy ? COLONOSCOPY W/BX 07/25/13 Repeat [...] at bedtime. 1 Bottle 1 ? Insulin Newton, Disposable, (1ST TIER UNIFINE PENTIPS) 31 gauge [...] with long-term current use of insulin ([facility]) (primary encounter diagnosis) Comment: Glycemic control has [...] polyneuropathy, with long-term current use ofinsulin ([facility]) Comment: Glycemic control is improved Plan: Continue the same (E11.22, N18.3, Z79.4) Type 2 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 disease, with long-term current use of insulin ([facility]) Comment: Glycemic control is improved. Plan: continue same Follow up with nephrology as planned (I10) Hypertension goal BP (blood pressure) < 140/90 Comment/Plan: Managed per PCP (E78.5) Hyperlipidemia, unspecified hyperlipidemia type Comment: taking pravastatin Plan: Lipid panel at follow up Chanda Phillips APRN, BLAST FURNACE KEEPERKacieC, CDE Endocrinology [facility] Medical Office [facility]/[place] [address] Fax: documented in this encounterBrigitte Parks - [...] disease) stage 3, GFR 30-59 ml/min ([facility]) 05/26/2017 ? Coloboma of iris OD ? [...] Allergen Reactions ? Cortisone Other: See Comments [place] real hot, as if someone threw boiling [...] in both eyes daily at bedtime. Insulin [place], Disposable, (1ST TIER UNIFINE PENTIPS) 31 gauge [...] Parks, PhD, WOCN, CNP documented in this encounterBrigtite Parks - 02/14/2020 5:49 AM EDT VASCULAR SURGERY WOUND OSTOMY CONTINENCE CONSULTATION CHIEF COMPLAINT: Wound check and evaluation HISTORY OF PRESENT ILLNESS: LLE laceration re evaluation PAST MEDICAL HISTORY Diagnosis Date ? Anemia in stage 3 chronic kidney disease (HCC) ? Background diabetic retinopathy(362.01) 09/18/2008 [facility] eye. ? Cataract of left eye ? Chronic kidney disease, unspecified ? CKD (chronic kidney disease) stage 3, GFR 30-59 ml/min ([facility]) 05/26/2017 ? Coloboma of iris OD ? [...] Allergen Reactions ? Cortisone Other: See Comments [place] real hot, as if someone threw boiling [...] in both eyes daily at bedtime. Insulin [place], Disposable, (1ST TIER UNIFINE PENTIPS) 31 gauge [...] blood sugar control and close follow-up with PCP/motor coach chauffeur 2. Q Proliferative diabetic retinopathy Both Eyes [...] relevant components on 03/06/2020 Adia Finnegan MD [facility] Chair of Ophthalmology Research Professor of Ophthalmology, [facility], [facility] documented in this encounterBraceBrigitte - 03/13/2020 4:32 PM EDT VASCULAR SURGERY WOUND OSTOMY CONTINENCE CONSULTATION CHIEF COMPLAINT: Wound check and evaluation HISTORY OF PRESENT ILLNESS: LLE laceration PAST MEDICAL HISTORY Diagnosis Date ? Anemia in stage 3 chronic kidney disease (HCC) ? Background diabetic retinopathy(362.01) 09/18/2008 [facility] eye. ? Cataract of left eye ? Chronic kidney disease, unspecified ? CKD (chronic kidney disease) stage 3, GFR 30-59 ml/min ([facility]) 05/26/2017 ? Coloboma of ir[place] OD ? [...] Repeat 07/2019 ? COLONOSCOP W/ OR W/O [facility] SPEC Colonoscopy ? COLONOSCOPY W/BX 07/25/13 Repeat [...] Allergen Reactions ? Cortisone Other: See Comments [place] real hot, as if someone threw boiling [...] in both eyes daily at bedtime. Insulin [place], Disposable, (1ST TIER UNIFINE PENTIPS) 31 gauge [...] PA-C Department of Orthopaedics Orthopaedics [address] [facility] [address] Dept: [phone] Dept April 07, 2020 CHIEF COMPLAINT: Follow [...] all contraindications were reviewed. OBJECTIVE: Mr. Shirin Wets Sr. is a pleasant 75 year old [...] Repeat 07/2019 ? COLONOSCOP W/ OR W/O [facility] SPEC Colonoscopy ? COLONOSCOPY W/BX 07/25/13 Repeat [...] both eyes daily at bedtime. ? Insulin [place], Disposable, (1ST TIER UNIFINE PENTIPS) 31 gauge [...] anxiety) This note was partially generated using OneClass voice recognition system, and there may be [...] long-term current us e of insulin ([facility]) - Primary Type 2 diabetes mellitus with diabetic p olyneuropathy, with long-term current use of insulin ([facility]) Type 2 diabetes mellitus with stage 3 ch ronic kidney disease, with long-term current use of insulin ([facility]) Hypertension goal BP (blood pressure) < 140/90 Unspecified essential hypertension Hyperlipidemia, unspecified hyperlipidem ia type Diagnosis Retinal edema Diagnosis Olecranon bursitis of left elbow - Prima ry Olecranon bursitis Advance Directives No Advanced Directives Records Found Documents on File Type Date Recorded Patient Learning Support Assistant Explanati on Advance Directive(s) 07/30/2016 10:37 AM [...] prior Chanda Phillips APRN, NP-C, CDE Endocrinology [facility] Medical Office [facility]/[place] [address] Fax: documented in this encounter Medications Administered [...] BE BASED ON THE PRIMARY CLINICAL RECORDS. [facility] provides no warranty or guarantee of the accuracy or completeness of information in this document. UNRECOGNIZED CONTENT PROVIDED BELOW FOR UNRECOGNIZED SECTION Source Comments In the event this information is protected by the Federal Confidentiality of Alcohol and Drug Abuse Patient Records regulations: The Federal rules restrict any use of the information to criminally investigate or prosecute any alcohol or drug abuse patient.[facility] the event this information is protected by the Federal Confidentiality of Alcohol and Drug Abuse Patient Records regulations: The Federal rules restrict any use of the information to criminally investigate or prosecute any alcohol or drug abuse patient.[facility] HamiltonIn the event this information is protected by the Federal Confidentiality of Alcohol and Drug Abuse Patient Records regulations: The Federal rules restrict any use of the information to criminally investigate or prosecute any alcohol or drug abuse patient.[facility] HamiltonIn the event this information is protected by the Federal Confidentiality of Alcohol and Drug Abuse Patient Records regulations: The Federal rules restrict any use of the information to criminally investigate or prosecute any alcohol or drug abuse patient.[facility] HamiltonIn the event this information is protected by the Federal Confidentiality of Alcohol and Drug Abuse Patient Records regulations: The Federal rules restrict any use of the information to criminally investigate or prosecute any alcohol or drug abuse patient.[facility] Hamilton[facility] the event this information is protected by the Federal Confidentiality of Alcohol and Drug Abuse Patient Records regulations: The Federal rules restrict any use of the information to criminally investigate or prosecute any alcohol or drug abuse patient.[facility] HamiltonIn the event this information is protected by the Federal Confidentiality of Alcohol and Drug Abuse Patient Records regulations: The Federal rules restrict any use of the information to criminally investigate or prosecute any alcohol or drug abuse patient.[facility] Hamilton[facility] the event this information is protected by the Federal Confidentiality of Alcohol and Drug Abuse Patient Records regulations: The Federal rules restrict any use of the information to criminally investigate or prosecute any alcohol or drug abuse patient.[facility] HamiltonIn the event this information is protected by the Federal Confidentiality of Alcohol and Drug Abuse Patient Records regulations: The Federal rules restrict any use of the information to criminally investigate or prosecute any alcohol or drug abuse patient.[facility] HamiltonIn the event this information is protected by the Federal Confidentiality of Alcohol and Drug Abuse Patient Records regulations: The Federal rules restrict any use of the information to criminally investigate or prosecute any alcohol or drug abuse patient.[facility] HamiltonIn the event this information is protected by the Federal Confidentiality of Alcohol and Drug Abuse Patient Records regulations: The Federal rules restrict any use of the information to criminally investigate or prosecute any alcohol or drug abuse patient.[facility] UNRECOGNIZED CONTENT PROVIDED BELOW FOR UNRECOGNIZED SECTION [...] DATE CREATED AUTHOR AUTHOR'S ORGANIZATIO N 12/16/2017 [facility] DATE CREATED AUTHOR AUTHOR'S ORGANIZATIO N 01/26/2020 [facility] DATE CREATED AUTHOR AUTHOR'S ORGANIZATIO N 12/19/2017 [facility] DATE CREATED AUTHOR AUTHOR'S ORGANIZATIO N 04/07/2020 [facility] UNRECOGNIZED CONTENT PROVIDED BELOW FOR [...]
== END ==
PROVIDERS: PCP Internal Medicine; Referring Provider Urology; Visit Provider Urology
DX: Z12.5 Encounter for screening for malignant neoplasm of prostate (principal)
CPT/HCPCS: 36415; 84153; G0103

== ENCOUNTER 2020-01-23 06:02 | Emergency (ER) | payer MEDICARE, OTHER, SELFPAY ==
[2019-11-08 13:14] VITALS: BMI 28.4
[2020-01-23 06:03] VITALS: BP 163/73; PULSE 74; RESP 18; TEMP 36.6; O2SAT 100; BMI 28.2
--- NOTE | 2020-01-23 06:29 | ED.DCSUM_ITS ---
History of Present Illness Chief Complaint: Wound Check Informant: Patient Occurred: Days - 3 Mechanism/Context: - - Unsure, think I may have bumped it Timing: Continuous Quality of Pain: - - warm Location: left walter Current Severity: Gone Maximum Severity: no pain Worsened by: nothing Relieved by: n/a Associated Symptoms: Negative for: Parasthesia, Weakness, Loss of Funtion Narrative: Patient sustained a skin tear recently, he is not sure how. He was seen at an outside hospital emergency department where he received care. He has been keeping it covered. This morning he noticed that it felt a little warm. He was not concerned about the look of it, and he had no pain or discharge. He presents saying that he is nervous and wants to make sure he does not have any signs of infection or need antibiotics. He is a type II diabetic, he states his sugars stay fairly well controlled and this morning it was in the 140 range. No recent illnesses, no fevers or chills. No swelling at the area of the tear. - Past Medical History (1) CKD (chronic kidney disease) stage 3, GFR 30-59 ml/min Status: Chronic (2) Essential hypertension Status: Chronic (3) GERD (gastroesophageal reflux disease) Status: Chronic (4) Hyperlipidemia Status: Chronic (5) Thoracic aortic aneurysm without rupture Status: Chronic (6) Type 2 diabetes mellitus Status: Chronic Past Medical History - Allergies and Home Meds Allergies/Adverse Reactions: Allergies cortisone Allergy (Verified 11/07/19 15:16) hyperglycemia Primary Care Physician: Jesse Glover MD [Primary Care Provider] - Surgical History: cholecystectomy, - - eye surgery, prostates surgery. Lives: Spouse/ Significant Other Smoking Status: Never smoker - Family History Maternal Family History: Family History (Last Reviewed 11/07/19 @ 15:19 by DONNA Coronel) Other Diabetes Heart disease Hypertension Kidney disease Family History: Reports: Cancer Paternal Family History: Family History (Last Reviewed 11/07/19 @ 15:19 by DONNA Coronel) Other Diabetes Heart disease Hypertension Kidney disease Family History: Reports: - - black lung Review of Systems General: Denies: Chills, Fever, Malaise, Sweats Musculoskeletal: Reports: Swelling - Both feet. Denies: Extremity Pain Skin: Reports: Wounds. Denies: Abscess Physical Exam Vital Signs/Narrative: Vital Signs Temp Pulse Resp BP Pulse Ox 01/23/20 06:03 98 F 74 18 163/73 H 100 Inital Vital Signs reviewed: Yes - Extremity Exam Left Tib Fib: Abrasion - Superficial skin tear, V-shaped along with a very small nontender blister just distal to it. All nontender. No sign of infection, local swelling, discharge, or excessive warmth., - - No calf tenderness. No pedal edema although the foot is mildly edematous, left greater than right. General: Well nourished, Well developed, - - Well-appearing, no distress Head: Normocephalic, Atraumatic Skin: Normal color, No rash, Trauma - See above. No sign of infection skin tear left lower walter. No lymphangitis or erythema. Neurological: Alert, Oriented x3, Cranial nerves II-XII grossly intact, Normal Strength, Normal Sensation, Normal Gait Diagnostic/Tx/Re-eval - Medical Decision Making I reassured the patient there is no sign of infection. We placed a fresh dressing on it, bacitracin with gauze on top. Given appropriate wound care instructions, he asked to following up with the wound care clinic would be oscar henriqueed, I said no and less he has no signs of any healing after at least a week, or if he has any signs of infection, and he is also welcome to come back here if he sees any of that as well, which we discussed. No sign of a DVT, if he gets worsening swelling he should follow-up with his doctor or return. He is comfortable with that plan. ED Disposition - Plan for ED Patient: Disposition: Home or Assisted Living Diagnosis: Visit for wound check Instructions: ED AVULSION LACERATION Referrals: Jesse Glover MD [Primary Care Provider] - As Needed Additional Instructions: Replace dressing at least once daily with a thin layer of antibiotic ointment.
== END 2020-01-23 07:13 | disposition home or self-care (01) ==
PROVIDERS: Emergency Provider Emergency Medicine; PCP Internal Medicine
DX: S81.812D Laceration without foreign body, left lower leg, subsequent encounter (principal); Z48.00 Encounter for change or removal of nonsurgical wound dressing; I12.9 Hypertensive chronic kidney disease with stage 1 through stage 4 chronic kidney disease, or unspecified chronic kidney disease; N18.3 Chronic kidney disease, stage 3 (moderate); E11.22 Type 2 diabetes mellitus with diabetic chronic kidney disease; K21.9 Gastro-esophageal reflux disease without esophagitis; E78.5 Hyperlipidemia, unspecified; Z79.4 Long term (current) use of insulin; Z79.899 Other long term (current) drug therapy; X58.XXXD Exposure to other specified factors, subsequent encounter
CPT/HCPCS: 99282

== ENCOUNTER → 2020-02-12 | Outpatient (CLI) | payer MEDICARE, OTHER, SELFPAY ==
[2020-01-23 06:03] VITALS: BMI 28.2
--- NOTE | 2020-02-12 16:58 | MRI_ITS ---
STUDY: MRI BRAIN WITHOUT CONTRAST (ATTENTION INTERNAL AUDITORY CANALS - I.A.C.''s) REASON FOR EXAM: Male, 75 years old. dizziness, hearing loss, tinnitus TECHNIQUE: Standardized multiplanar fat and water weighted pulse sequences were obtained. COMPARISON: CT 02/10/2017 FINDINGS: Normal bilateral internal auditory canals. There is no demonstrated intracanalicular or cisternal vestibular schwannoma (acoustic neuroma) on this unenhanced examination. Normal visualized bilateral cochlea, vestibules and semicircular canals. Normal bilateral mastoid air cells. Normal midbrain, jennifer and medulla. Normal cerebellum. Normal basal cisterns. Normal size of the ventricles and extra-axial spaces for the patient''s age. Normal white matter tracts of the supratentorial brain. Normal bilateral basal ganglia. Normal thalami. There is no extra-axial fluid accumulation. Normal flow voids within the major intracranial circulation suggesting patency by spin echo criteria. Normal sella turcica, pituitary gland, infundibular stalk, optic chiasm and hypothalamus. Normal tectal plate and pineal gland. There are bilateral ocular lens implants with otherwise normal intraorbital contents. Normal visualized paranasal sinuses. Normal calvarium and skull base. Normal visualized soft tissue structures. MRI/Brain without Contrast IMPRESSION: Normal unenhanced MRI of the bilateral internal auditory canals (I.A.C''s). No evidence of acute infarct or hemorrhage. Electronically Signed: Jas Mae MD at 18:06 EDT Tel , Service support ,
[2020-02-12 17:41] LABS: CREATININE FINGERSTICK 2.1 mg/dL (0.70-1.30)
== END | disposition home or self-care (01) ==
LOC: MRI 16:56
PROVIDERS: PCP Internal Medicine; Referring Provider Otolaryngology; Visit Provider Otolaryngology
DX: H91.90 Unspecified hearing loss, unspecified ear (principal); R42 Dizziness and giddiness
CPT/HCPCS: 70551

== ENCOUNTER 2020-09-13 16:17 | Observation (INO) | payer MEDICARE, OTHER, SELFPAY ==
[2020-09-13 16:18] VITALS: BP 182/88; PULSE 102; RESP 14; TEMP 36.5; O2SAT 99; BMI 26.7
[2020-09-13 16:31] LABS: Bedside Glucose > 500 mg/dL (70-110)
--- NOTE | 2020-09-13 16:57 | EKG12_ITS ---
Test Reason : Blood Pressure : / mmHG Vent. Rate : 090 BPM Atrial Rate : 090 BPM P-R Int : 194 ms QRS Dur : 094 ms QT Int : 364 ms P-R-T Axes : 057 -46 056 degrees QTc Int : 445 ms Normal sinus rhythm Left anterior fascicular block Moderate voltage criteria for LVH, may be normal variant Abnormal ECG Confirmed by MARIE VOSS, JIM ([id number]), visual effects editor DAMIEN WICK ([id number]) on 09/16/2020 8:54:30 AM Referred By: TAURUS Confirmed By:JIM SALAZAR MD
[2020-09-13 17:03] LABS: Absolute Lymphocyte Count 1.92 X10^3/uL (0.83-4.51); Absolute Neutrophil Count 2.5 X10^3/uL (2.0-7.7); Basophil# 0.03 X10^3/uL; Basophil% 0.6 % (0-1); Eosinophil# 0.05 X10^3/uL; Eosinophils% 0.9 % (0-5); Hematocrit 33.7 % (40-54); Hemoglobin 10.7 g/dL (13.0-16.5); Lymphocyte # 1.92 X10^3/ul (4.0); Lymphocyte % 35.4 % (19-41); Mean Corp Hgb Conc 31.8 g/dL (32-36); Mean Corpuscular Hgb 28.9 pg (27.0-32.0); Mean Corpuscular Volume 91.1 fL (80-94); Mean Platelet Vol. 11.4 fl (6.2-12.0); Monocyte# 0.92 X10^3/uL; NRBC Flagged by Analyzer 0 % (0-5); Neutrophil # 2.48 X10^3/uL (2.7-7.7); Neutrophil % 45.7 % (47-70); Platelet Count 276 K/mm3 (150-450); RBC Distribution Width CV 12.2 % (11.6-14.6); RBC Distribution Width SD 40.7 fl (35.1-43.9); White Blood Count 5.4 K/mm3 (4.4-11.0)
--- NOTE | 2020-09-13 17:10 | ED.VISSUMM ---
- ER Visit Summary Date of Service: 09/13/20 Chief Complaint: Elevated blood sugar History of Present Illness: The patient is a 75 M presenting with elevated blood sugar. Patient states that he was not feeling well. was feeling dizzy and checked his blood sugar. He states it was over 400. He recently had his medications changed and his Metformin was stopped on September 05. He takes lispro 24 units in the morning and 20 units at night. He has had polyuria, polydipsia. He denies fever. Denies chest pain or shortness of breath. Denies nausea or vomiting. He had second Covid vaccine 3 days ago. He took an extra 20 units insulin prior to arrival. Physical Examination: Vitals are stable. Patient is afebrile. Alert no acute distress. HEENT exam is unremarkable. Neck is supple. Lungs are clear and equal bilaterally. Heart is regular rate and rhythm. Abdomen is soft nontender nondistended. Extremities are unremarkable. Skin is warm and dry. No focal neurologic deficit. Remainder of exam is unremarkable. Emergency Department Course and Treatment: Patient given IV fluids. EKG is sinus rhythm rate of 90 with no acute ischemic changes. CBC shows hemoglobin 10.7. Chemistries show sodium 131, glucose 584, BUN 37, creatinine 2.43. Urinalysis shows 0 white blood cells, 0 red blood cells, positive glucose. Troponin is negative. Ketones negative. Patient was given insulin subcutaneously. Will discuss with hospitalist for observation. Disposition: Observation Impression: Hyperglycemia This note was generated with [email or web address] dictation software. It may contain incorrect words, spelling, and punctuation that were not noted in review of the chart prior to signing ED Disposition - Plan for ED Patient:
[2020-09-13] MEDS: 0.9% Normal Saline 1,000 ML 1000 ML IV (17:14)
[2020-09-13 17:25] LABS: Bacteria 0 SEEN /hpf (None Seen); Mucous, Urine 0 SEEN /hpf (<or=2+); Red Blood Cells-Urine 0 SEEN /hpf (0-5); Squamous Epithelial Cells - UA 0 SEEN /hpf (0-5); White Blood Cells 0 SEEN /hpf (0-5)
[2020-09-13 17:26] LABS: Color, Urine Yellow (Yellow); Glucose, Dipstick 1000 mg/dl (Normal); Ketone-Dipstick Negative (Negative); Leukocyte Esterase-Dipstick Negative /ul (Negative); Nitrite-Dipstick Negative (Negative); Occult Blood-Urine Negative /ul (Negative); Protein-Dipstick 30 mg/dl (Negative); Specific Gravity, Urine 1.005 (1.002-1.030); Urine Bilirubin Dipstick Negative (Negative); Urine Clarity Clear (Clear); Urine Urobilinogen 1 mg/dl (Normal)
[2020-09-13 17:32] LABS: Anion Gap 7 (5-15); BUN 37 mg/dL (7-18); BUN/Creat Ratio 15.2 RATIO (10-20); Calcium,Total 9.1 mg/dL (8.5-10.1); Chloride 97 mmol/L (98-107); Creatinine, Serum 2.43 mg/dL (0.70-1.30); EST Glomerular Filtration Rate 28 mL/min (>60); Est Glom Filt Rate - Afr Amer 34 mL/min (>60); Estimated Creatinine Clearance 28.84 ml/min; Glucose 584 mg/dL (74-106); Potassium 4.8 mmol/L (3.5-5.1); Sodium Level 131 mmol/L (136-145)
[2020-09-13] MEDS: Insulin Lispro 100 UNIT/ML INSULN.PEN 10 UNIT SC (18:08)
[2020-09-13 18:11] VITALS: BP 188/76; PULSE 94; RESP 16; TEMP 36.8; O2SAT 96
--- NOTE | 2020-09-13 18:18 | PCM.HP.STD ---
Problem List (1) GERD (gastroesophageal reflux disease) Status: Chronic (2) Thoracic aortic aneurysm without rupture Status: Chronic (3) CKD (chronic kidney disease) stage 3, GFR 30-59 ml/min Status: Chronic (4) Type 2 diabetes mellitus Status: Chronic (5) Essential hypertension Status: Chronic (6) Hyperlipidemia Status: Chronic Qualifiers: History of Present Illness Date of Admission: 09/13/20 Chief Complaint: Elevated blood glucose. The patient is a 75 year old M with past medical history as mentioned above presented to the emergency room because of elevated blood sugar. Patient stated that he was not feeling well this afternoon, felt dizzy and he is checked his blood sugar. His blood sugar was 400 mg/dL. He mentioned that around 1 week ago, he was taken off Metformin because of chronic kidney disease and dose of insulin lispro was increased. He took 20 units of insulin lispro before he came to the emergency department. He takes 24 units of lispro in the morning and 20 units at night. He received COVID-19 vaccine yesterday and he thinks after he took the vaccine, he did not feel well and his sugar started to go up. He mentioned that his sugar has been okay after they stopped the Metformin and increase lispro dosage. He denied any fever or chills. He denied chest pain or shortness of breath. He had a history of hypertension and he has been on multiple antihypertensive medications including chlorthalidone, Catapres, losartan and nifedipine. His blood pressure in the ED was elevated. He had a history of stage stage IIIb chronic kidney disease, baseline creatinine has been around anyone between 1.5-2.2, admission creatinine is 2.43 which is slightly up from his baseline. He had a history of hyperlipidemia and he has been on statins. In the emergency department, he was afebrile, blood pressure was elevated, pulse ox was 96% on room air. Routine blood work was remarkable for chronic anemia, sodium of 131, BUN of 37, creatinine is 2.43. Blood glucose was 584. EKG revealed normal sinus rhythm without evidence of acute ischemic changes. Troponin was negative. Acetone level was negative. Urinalysis showed no evidence of infection. Patient is being admitted for observation for hyperglycemia without evidence of DKA as well as elevated blood pressure. Past Medical History Past Medical History (Chronic Problems): Chronic Problems (Last Updated 03/20/21 @ 18:[address] Yon Rogel MD) Claudication (Chronic) GERD (gastroesophageal reflux disease) (Chronic) Thoracic aortic aneurysm without rupture (Chronic) CKD (chronic kidney disease) stage 3, GFR 30-59 ml/min (Chronic) Type 2 diabetes mellitus (Chronic) Essential hypertension (Chronic) Hyperlipidemia (Chronic) Medical History: Medical History (Last Updated 09/13/20 @ 18:[address] 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 Glaucoma H40.9 Macular edema H35.81 Neuropathy G62.9 Vision problems H54.7 Proliferative diabetic retinopathy E11.3599 Allergies cortisone Allergy (Verified 09/13/20 16:19) hyperglycemia Home Medications: Ambulatory Orders Medication Instructions Recorded Aspirin [Aspir-Low] 81 mg PO DAILY 01/21/17 Pravastatin [Pravachol] 80 mg PO DAILY 01/21/17 chlorthalidone 25 mg tablet 25 mg PO DAILY 04/05/18 latanoprost 0.005 % eye drops 1 drp OPHTHALMIC QPM 04/05/18 nifedipine 90 mg tablet,extended 90 mg PO .q hs tab 04/05/18 release timolol maleate 0.5 % eye drops 1 drp OPHTHALMIC .q am ml 04/05/18 cholecalciferol (vitamin D3) 25 1,000 unit PO DAILY 04/26/19 mcg (1,000 unit) capsule furosemide 40 mg tablet 40 mg PO DAILY tab 04/26/19 losartan 100 mg tablet 100 mg PO DAILY tab 04/26/19 insulin lispro protamine-lispro 15 unit SC BID 11/07/19 100 unit/mL (75-25) subcutaneous susp Clonidine HCl [Catapres] 0.2 mg PO BID 09/13/20 Cyanocobalamin (Vitamin B-12) 1,000 mcg PO DAILY 09/13/20 [Vitamin B-12] Diclofenac Sodium [Voltaren] 0 gm TOPICAL DAILY 09/13/20 Gabapentin [Neurontin] 100 mg PO BID 09/13/20 Surgical History: Surgical History (Last Reviewed 07/07/20 @ 13:54 by Alee Ochoa) History of colonoscopy Onset Date: ~2015 Z98.890 H/O eye surgery Z98.890 History of bilateral cataract extraction Z98.41, Z98.42 History of cholecystectomy Z90.49 History of prostatectomy Z90.79 History of repair of rotator cuff Z98.890 RT History of vitrectomy Z98.890 Surgical History: cholecystectomy, TURP, - - eye surgery. Lives: Spouse/ Significant Other Smoking Status: Never smoker Alcohol: None Drugs: None - *Family History Maternal Family History: Family History (Last Reviewed 07/07/20 @ 13:54 by Alee Ochoa) Other Diabetes Heart disease Hypertension Kidney disease History Items: Cancer Paternal Family History: Family History (Last Reviewed 07/07/20 @ 13:54 by Alee Ochoa) Other Diabetes Heart disease Hypertension Kidney disease History Items: - - black lung Review of Systems Constitutional: Reports: Malaise, Fatigue. Denies: Anorexia, Chills, Fever, Weakness Eyes: Denies: Blurred vision, Double vision, Drainage, Redness HEENT: Denies: Difficulty Hearing, Ear Pain, Eye Pain, Nasal Congestion, Sore Throat Cardiovascular: Denies: Chest Pain, Chest Pressure, Edema, Heaviness, Light Headedness, Palpitations, Syncope Respiratory: Denies: Cough, Pleuritic Pain, Shortness of Breath, Sputum production, Wheezing Gastrointestinal: Denies: Abdominal Pain, Constipation, Diarrhea, Nausea, Vomiting Genitourinary: Denies: Dysuria, Frequency, Hematuria Musculoskeletal: Denies: Arm Pain, Back Pain, Foot Pain Skin: Denies: Dryness, Rash Neurological: Denies: Balance problems, Double vision, Change in Speech, Slurred speech, Confusion, Headaches, Incoordination Psychiatric: Denies: Anxiety, Depression Endocrine: Reports: Polydipsia, Polyuria. Denies: Change in Body Habitus VTE Information - Inpt Only VTE Present on Admission: No VTE Mechan Device Prophylaxis: None VTE Pharm Prophylaxis ordered?: Yes - Physical Exam Vitals/I&O's: Vital Signs Temp Pulse Resp BP Pulse Ox 98.3 F 94 16 188/76 H 96 09/13/20 18:11 09/13/20 18:11 09/13/20 18:11 09/13/20 18:11 09/13/20 18:11 Oxygen Delivery Method Room Air Weight: 191 lb 12.835 oz Body Mass Index (BMI) 26.7 Finger Stick Blood Glucose 541 General: Alert, Oriented x3, Cooperative, No apparent distress HEENT: Atraumatic, PERRLA, EOMI, Normocephalic Oral: Moist Mucosa, No Gingival or Mucosal Lesions/ Ulcerations Neck: Supple, No JVD, Negative Carotid Bruits, Trachea Midline, Thyroid Normal Size and Texture Lungs: Clear to auscultation, Normal air movement, No rhonchi, No wheeze, No rales Cardiovascular: Regular rate, Regular Rhythm, Normal S1, Normal S2 Abdomen: Bowel Sounds Present, Soft, Non Tender, Non-Distended, No Hepato-splenomegaly Extremities: No clubbing, No cyanosis, No edema Skin: No rashes, No breakdown Lymphatic: No Cervical, Supraclavicular, or Inguinal Adenopathy Neurological: Cranial nerves II-XII grossly intact, Motor Exam 5/5 strength throughout Psych/Mental Status: Normal Affect, Appropriate, Alert and oriented to time, place, person, mood and affect Laboratory Results 09/13/20 16:24: POC Glucose > 500 H* 09/13/20 16:55: WBC 5.4, RBC 3.70 L, Hgb 10.7 L, Hct 33.7 L, MCV 91.1, MCH 28.9, MCHC 31.8 L, RDW Std Deviation 40.7, RDW Coeff of [place] 12.2, Plt Count 276, MPV 11.4, Immature Gran % (Auto) 0.400, Neut % (Auto) 45.7 L, Lymph % (Auto) 35.4, [place] % (Auto) 17.0 H, Eos % (Auto) 0.9, Baso % (Auto) 0.6, Absolute Neuts (auto) 2.5, Absolute Lymphs (auto) 1.92, Nucleated RBC % 0 09/13/20 16:55: Sodium 131 L, Potassium 4.8, Chloride 97 L, Carbon Dioxide 27.0, Anion Gap 7, BUN 37 H, Creatinine 2.43 H, Estim Creat Clear Calc 28.84, Est GFR (MDRD) Af Amer 34 L, Est GFR (MDRD) Non-Af 28 L, BUN/Creatinine Ratio 15.2, Glucose 584 H*, Calcium 9.1, Troponin I < 0.015 09/13/20 16:55: Acetone Level NEGATIVE 09/13/20 17:18: Urine Color Yellow, Urine Clarity Clear, Urine pH 7.0, Ur Specific [place] 1.005, Urine Protein 30 H, Urine Glucose (UA) 1000 H, Urine Ketones Negative, Urine Occult Blood Negative, Urine Nitrite Negative, Urine Bilirubin Negative, Urine Urobilinogen 1 H, Ur Leukocyte Esterase Negative, Urine RBC 0 SEEN, Urine WBC 0 SEEN, Ur Squamous Epith Cells 0 SEEN, Urine Bacteria 0 SEEN, Urine Mucus 0 SEEN Assessment/Plan This is a 75 years old male patient presented to the emergency room because of elevated blood glucose, not feeling well with polyuria and poor safety, found to have blood sugar of 584 mg/dL without evidence of DKA and also found to have elevated blood blood pressure and he is being admitted for observation. #1 hyperglycemia: Patient stated that sugar has been usually under control but he thinks that his sugar started to go up today because of the COVID-19 vaccine that he did yesterday. No evidence of DKA. Patient took 20 units of lispro at home and his sugar still at 584 mg/dL. Plan: Admit to PCU for observation, cardiac monitoring, IV fluids, Accu-Cheks every 4 hours, high-dose insulin sliding scale, start Lantus 25 units twice daily, check hemoglobin A1c, Tylenol as needed, Zofran as needed, repeat CBC and BMP tomorrow morning. #2 elevated blood pressure: In the ED, blood pressure was 182/88. Patient has been on different antihypertensive medications. Continue Catapres, losartan and nifedipine, hold chlorthalidone and Lasix, start IV Thorazine as needed. #3 hyponatremia: This is probably due to pseudohyponatremia secondary to hyperglycemia. Expect serum sodium to improve with correction of blood glucose. #4 stage IIIb chronic kidney disease: Baseline creatinine has been around 1.5 to 2.2 mg/dL. Admission creatinine is 2.43, slightly above baseline. Plan for IV fluids as above, input output chart, hold Lasix and chlorthalidone, repeat BMP tomorrow morning. #5 hypertension: Blood pressures elevated, plan as above. #6 hyperlipidemia: Continue statins. #7 DVT prophylaxis: Subcu heparin. This note was generated with [employer] software. It may contain incorrect words, spelling, and punctuation that were not noted in checking the note before signing. OBSV E&M: [id number] Initial observation care L3
[2020-09-13 19:20] VITALS: BP 158/82; PULSE 81; RESP 16; TEMP 36.8; O2SAT 99; BMI 26.8
[2020-09-13 19:41] LABS: Bedside Glucose 383 mg/dL (70-110)
[2020-09-13] MEDS: 0.9% Normal Saline 1,000 ML 100 ML IV (19:43)
[2020-09-13 19:44] LABS: Hemoglobin A1c 9.8 % (3.8-5.6)
[2020-09-13 20:10] VITALS: PULSE 82
[2020-09-13 21:36] VITALS: BP 170/33; PULSE 81; RESP 16; TEMP 36.8; O2SAT 100
[2020-09-13] MEDS: cloNIDine HCl 0.2 MG Tablet PO (21:41)
[2020-09-13] MEDS: Heparin Injection (Vial) 5,000 UNIT/ML VIAL 5000 UNIT SC (21:41)
[2020-09-13] MEDS: NIFEdipine 90 MG Tablet PO (21:41)
[2020-09-13] MEDS: Latanoprost 0.005% 1 Bottle 1 DRP OPHTHALMIC (21:41)
[2020-09-13] MEDS: Pravastatin 80 MG Tablet PO (21:41)
[2020-09-13] MEDS: Insulin Lispro 100 UNIT/ML INSULN.PEN SC (21:42)
[2020-09-13 22:00] LABS: Bedside Glucose 333 mg/dL (70-110)
[2020-09-14] MEDS: Insulin Lispro 100 UNIT/ML INSULN.PEN SC (02:12)
[2020-09-14 02:21] LABS: Bedside Glucose 158 mg/dL (70-110)
[2020-09-14 02:59] VITALS: PULSE 67
[2020-09-14 03:34] VITALS: BP 141/74; PULSE 74; RESP 16; TEMP 37.1; O2SAT 100
[2020-09-14 06:01] LABS: Bedside Glucose 110 mg/dL (70-110)
[2020-09-14] MEDS: 0.9% Normal Saline 1,000 ML 100 ML IV (06:15)
[2020-09-14] MEDS: Heparin Injection (Vial) 5,000 UNIT/ML VIAL 5000 UNIT SC (06:16)
[2020-09-14 06:24] LABS: Absolute Lymphocyte Count 1.41 X10^3/uL (0.83-4.51); Absolute Neutrophil Count 1.6 X10^3/uL (2.0-7.7); Basophil# 0.01 X10^3/uL; Basophil% 0.3 % (0-1); Eosinophil# 0.09 X10^3/uL; Eosinophils% 2.3 % (0-5); Hematocrit 30.2 % (40-54); Hemoglobin 9.5 g/dL (13.0-16.5); Lymphocyte # 1.41 X10^3/ul (4.0); Lymphocyte % 36.2 % (19-41); Mean Corp Hgb Conc 31.5 g/dL (32-36); Mean Corpuscular Hgb 28.4 pg (27.0-32.0); Mean Corpuscular Volume 90.4 fL (80-94); Mean Platelet Vol. 11.3 fl (6.2-12.0); Monocyte# 0.78 X10^3/uL; NRBC Flagged by Analyzer 0 % (0-5); Neutrophil % 40.9 % (47-70); Platelet Count 252 K/mm3 (150-450); RBC Distribution Width CV 12.4 % (11.6-14.6); RBC Distribution Width SD 40.9 fl (35.1-43.9); Red Blood Count 3.34 M/mm3 (4.6-6.2); White Blood Count 3.9 K/mm3 (4.4-11.0)
[2020-09-14 06:55] LABS: Anion Gap 5 (5-15); BUN 29 mg/dL (7-18); Calcium,Total 8.6 mg/dL (8.5-10.1); Chloride 107 mmol/L (98-107); Creatinine, Serum 1.71 mg/dL (0.70-1.30); EST Glomerular Filtration Rate 42 mL/min (>60); Est Glom Filt Rate - Afr Amer 51 mL/min (>60); Estimated Creatinine Clearance 40.98 ml/min; Glucose 110 mg/dL (74-106); Potassium 4.3 mmol/L (3.5-5.1); Sodium Level 139 mmol/L (136-145)
[2020-09-14 06:59] VITALS: PULSE 66
[2020-09-14 08:00] VITALS: O2SAT 98
[2020-09-14] MEDS: Timolol 0.5% 5ML OPTH.BTL 1 DRP OPHTHALMIC (08:04)
[2020-09-14] MEDS: Gabapentin 100 MG Capsule 200 MG PO (08:05)
[2020-09-14] MEDS: Aspirin E.C. 81 MG Tablet PO (08:06)
[2020-09-14] MEDS: cloNIDine HCl 0.2 MG Tablet PO (08:06)
[2020-09-14] MEDS: Losartan Potassium 100 MG Tablet PO (08:06)
[2020-09-14 08:09] VITALS: BP 141/69; PULSE 70; RESP 18; TEMP 36.7; O2SAT 98
--- NOTE | 2020-09-14 08:27 | PCM.DC ---
- Discharge Diagnoses Current Active Problems: Current Active and Chronic Problems (Last Updated 09/13/20 @ 18:[address] Yon Rogel MD) GERD (gastroesophageal reflux disease) (Chronic) Thoracic aortic aneurysm without rupture (Chronic) CKD (chronic kidney disease) stage 3, GFR 30-59 ml/min (Chronic) Type 2 diabetes mellitus (Chronic) Essential hypertension (Chronic) Hyperlipidemia (Chronic) You will use the following diet at home:: Calorie/Carbohydrate Controlled (specify 1200, 1400, etc) - 1800 micky., Cardiac Your food should be the consistency of: Regular Discharge Activity: Return to Normal Activity Weight Bearing Status: Weight bearing as tolerated Call your doctor if you observe: Fever of 101 or Higher, Shortness of breath, Dizziness, Fainting spells, Chest pain, Increased palpitations (irregular heartbeat), Uncontrolled pain Instructions: Using a Blood Sugar Log, How to Check Your Blood Sugar, Controlling High Blood Pressure, Taking Blood Pressure Medications, Taking Your Blood Pressure Allergies/Adverse Reactions: Allergies cortisone Allergy (Verified 09/13/20 16:19) hyperglycemia Medications to take at Discharge Aspirin [Aspir-Low] 81 mg PO DAILY 01/21/17 Pravastatin [Pravachol] 80 mg PO DAILY 01/21/17 latanoprost 0.005 % eye drops 1 drp OPHTHALMIC QPM 04/05/18 timolol maleate 0.5 % eye drops 1 drp OPHTHALMIC .q am ml 04/05/18 cholecalciferol (vitamin D3) 25 mcg (1,000 unit) capsule 1,000 unit PO DAILY 04/26/19 furosemide 40 mg tablet 40 mg PO DAILY tab 04/26/19 Clonidine HCl [Catapres] 0.2 mg PO BID 09/13/20 Cyanocobalamin (Vitamin B-12) [Vitamin B-12] 1,000 mcg PO DAILY 09/13/20 Diclofenac Sodium [Voltaren] 0 gm TOPICAL DAILY 09/13/20 Chlorthalidone 25 mg PO DAILY #0 09/14/20 Gabapentin 300 mg PO TID #90 capsule 09/14/20 Insulin Glargine [Lantus SoloStar Pen] 20 units SC BID #1 each 09/14/20 Losartan Potassium 100 mg PO DAILY #0 tablet 09/14/20 Nifedipine [Nifedipine ER] 90 mg PO .q hs #0 tablet 09/14/20 Pen Needle, Diabetic [Pen [place]] 1 each MC BID #120 dis.needle 09/14/20 The following prescriptions were given: Gabapentin 300 mg PO TID #90 capsule Transmission Status: Pending to [facility] Insulin Glargine [Lantus SoloStar Pen] 20 units SC BID #1 each Transmission Status: Pending to [facility] Pen Needle, Diabetic [Pen [place]] 1 each MC BID #120 dis.needle Transmission Status: Pending to [facility] #[facility] Primary Care Physician: Jeses Glover MD [Primary Care Provider] - Please follow up with your Primary Care Physician in: 1 week. Test Results: Test results from this visit will be discussed in further detail at your follow-up appointment, if applicable.
--- NOTE | 2020-09-14 10:32 | DS.PCM_ITS ---
Discharge Date and Diagnosis Date of Admission: 09/13/20 Date of Discharge: 09/14/20 - Primary Discharge Diagnosis Acute Problems: #1 hyperglycemia without evidence of DKA. #3 elevated blood pressure, improved. #3 pseudohyponatremia. - Secondary Discharge Diagnosis Chronic Problems: Chronic Problems (Last Updated 09/13/20 @ 18:[address] Yon Rogel MD) Claudication (Chronic) GERD (gastroesophageal reflux disease) (Chronic) Thoracic aortic aneurysm without rupture (Chronic) CKD (chronic kidney disease) stage 3, GFR 30-59 ml/min (Chronic) Type 2 diabetes mellitus (Chronic) Essential hypertension (Chronic) Hyperlipidemia (Chronic) Hospital Course and Treatment Operations: None Procedures: None Summary of Care Provided: Patient seen and examined on day of discharge and appeared to be stable to be discharged home. He feels better. No complaints. His vital signs are stable. The patient is a 75 year old M presented to the emergency room because of elevated blood glucose and he was found to have blood glucose of 584 mg/dL. On the day of admission, patient failed and will after he received COVID-19 vaccine the day before and he checked his blood glucose and it was 400 mg/dL. He took 20 units of insulin lispro and he came to the emergency department. His blood glucose in the ED was 584. There was no evidence of DKA. There was no evidence of infection. Apparently, patient was given insulin lispro 24 units breakfast and 22 units at dinner. He mentioned that his blood glucose tends to go up as the day goes. He was admitted to the floor for observation, started on Lantus subcu 25 units twice daily along with sliding scale and Accu-Cheks. He was started on IV fluids with normal saline. He was found to have pseudohyponatremia secondary to hyperglycemia and a sodium level returned back to normal with correction of blood glucose. With Lantus and sliding scale, blood glucose significantly improved and it came down to 110 mg/dL on the day of discharge. Hemoglobin A1c was 9.8%. Urinalysis showed no evidence of UTI. Patient complained of numbness and tingling as well as tightness of both legs se condary to neuropathy. He has been only on 100 mg p.o. twice daily of gabapentin. I discussed the options of changing him back to Lantus insulin as patient has been on Lantus before and he mentioned that his blood glucose was under better control with Lantus. Patient agreed to change the insulin lispro to Lantus. Lantus is a long-acting insulin. Patient discharged home in a stable medical condition, discharged on Lantus 20 units subcu twice daily, I increase the dosage of gabapentin to 300 mg p.o. 3 times daily for neuropathy, instructed to take chlorthalidone, Lasix and losartan in the morning and to take nifedipine at night as well as Catapres twice daily and those are his chronic home medications without any changes, he was instructed to check his blood sugar at least 4 times a day and recommended from with PCP in 1 week. - Physical Exam Vitals/I&O's: Vital Signs Temp Pulse Resp BP Pulse Ox 98.1 F 70 18 141/69 H 98 09/14/20 08:09 09/14/20 08:09 09/14/20 08:09 09/14/20 08:09 09/14/20 08:09 Oxygen Delivery Method Room Air Weight: 192 lb 7.417 oz Body Mass Index (BMI) 26.8 Finger Stick Blood Glucose 541 Intake and Output for Last 24 Hours 09/12/20 09/13/20 09/14/20 23:59 23:59 23:59 Intake Total 1360 / 1360 1000 / 1000 Output Total 375 / 375 425 / 425 Balance 985 / 985 575 / 575 General: Alert, Oriented x3, Cooperative, No apparent distress HEENT: Atraumatic, PERRLA, EOMI, Normocephalic Oral: Moist Mucosa, No Gingival or Mucosal Lesions/ Ulcerations Neck: Supple, No JVD, Negative Carotid Bruits, Trachea Midline, Thyroid Normal Size and Texture Lungs: Clear to auscultation, Normal air movement, No rhonchi, No wheeze, No rales Cardiovascular: Regular rate, Regular Rhythm, Normal S1, Normal S2, PMI Normal Abdomen: Bowel Sounds Present, Soft, Non Tender, Non-Distended, No Hepato- splenomegaly Extremities: No clubbing, No cyanosis, No edema Skin: No rashes, No breakdown Musculoskeletal: No Tenderness to Palpation of Joints or Extremities Lymphatic: No Cervical, Supraclavicular, or Inguinal Adenopathy Neurological: Cranial nerves II-XII grossly intact, Neuro grossly intact Psych/Mental Status: Normal Affect, Appropriate Laboratory Results 09/13/20 16:24: POC Glucose > 500 H* 09/13/20 16:55: WBC 5.4, RBC 3.70 L, Hgb 10.7 L, Hct 33.7 L, MCV 91.1, MCH 28.9, MCHC 31.8 L, RDW Std Deviation 40.7, RDW Coeff of [place] 12.2, Plt Count 276, MPV 11.4, Immature Gran % (Auto) 0.400, Neut % (Auto) 45.7 L, Lymph % (Auto) 35.4, [place] % (Auto) 17.0 H, Eos % (Auto) 0.9, Baso % (Auto) 0.6, Absolute Neuts (auto) 2.5, Absolute Lymphs (auto) 1.92, Nucleated RBC % 0 09/13/20 16:55: Sodium 131 L, Potassium 4.8, Chloride 97 L, Carbon Dioxide 27.0, Anion Gap 7, BUN 37 H, Creatinine 2.43 H, Estim Creat Clear Calc 28.84, Est GFR (MDRD) Af Amer 34 L, Est GFR (MDRD) Non-Af 28 L, BUN/Creatinine Ratio 15.2, Glu cose 584 H*, Calcium 9.1, Troponin I < 0.015 09/13/20 16:55: Acetone Level NEGATIVE 09/13/20 16:55: Hemoglobin A1c 9.8 H 09/13/20 17:18: Urine Color Yellow, Urine Clarity Clear, Urine pH 7.0, Ur Specific [place] 1.005, Urine Protein 30 H, Urine Glucose (UA) 1000 H, Urine Ketones Negative, Urine Occult Blood Negative, Urine Nitrite Negative, Urine Bilirubin Negative, Urine Urobilinogen 1 H, Ur Leukocyte Esterase Negative, Urine RBC 0 SEEN, Urine WBC 0 SEEN, Ur Squamous Epith Cells 0 SEEN, Urine Bacteria 0 SEEN, Urine Mucus 0 SEEN 09/13/20 19:20: POC Glucose 383 H 09/13/20 21:38: POC Glucose 333 H 09/14/20 02:08: POC Glucose 158 H 09/14/20 05:10: WBC 3.9 L, RBC 3.34 L, Hgb 9.5 L, Hct 30.2 L, MCV 90.4, MCH 28.4, MCHC 31.5 L, RDW Std Deviation 40.9, RDW Coeff of [place] 12.4, Plt Count 252, MPV 11.3, Immature Gran % (Auto) 0.300, Neut % (Auto) 40.9 L, Lymph % (Auto) 36.2, Butler % (Auto) 20.0 H, Eos % (Auto) 2.3, Baso % (Auto) 0.3, Absolute Neuts (auto) 1.6 L, Absolute Lymphs (auto) 1.41, Nucleated RBC % 0 09/14/20 05:10: Sodium 139, Potassium 4.3, Chloride 107, Carbon Dioxide 27.0, Anion Gap 5, BUN 29 H, Creatinine 1.71 H, Estim Creat Clear Calc 40.98, Est GFR (MDRD) Af Amer 51 L, Est GFR (MDRD) Non-Af 42 L, BUN/Creatinine Ratio 17.0, Glucose 110 H, Calcium 8.6 09/14/20 05:45: POC Glucose 110 Current Medications Acetaminophen (Acetaminophen 325 Mg Tablet) 650 mg PO Q6H PRN PRN PRN Reason: Pain Score 1-10/Temp > 100.7 F Aspirin (Aspirin E.C. 81 Mg Tablet) 81 mg PO DAILYCM [facility] Last Admin: 09/14/20 08:06 Dose: 81 mg Documented by: Clonidine (Clonidine Hcl 0.2 Mg Tablet) 0.2 mg PO BID [facility] Last Admin: 09/14/20 08:06 Dose: 0.2 mg Documented by: Gabapentin (Gabapentin 100 Mg Capsule) 200 mg PO TIDCM [facility] Last Admin: 09/14/20 08:05 Dose: 200 mg Documented by: Heparin Sodium (Porcine) (Heparin Injection (Vial) 5,000 Unit/Ml Vial) 5,000 unit SC Q8 [facility] Last Admin: 09/14/20 06:16 Dose: 5,000 unit Documented by: Hydralazine HCl (Hydralazine 20 Mg/Ml Vial) 10 mg IV Q6H PRN PRN PRN Reason: for SBP>160 Sodium Chloride () 1,000 mls @ 100 mls/hr IV .Q10H [facility] Stop: 09/14/20 15:17 Last Admin: 09/14/20 06:15 Dose: 100 mls/hr Documented by: Insulin Glargine (Insulin Glargine 100 Units/Ml Pen) 25 units SC BID [facility] Last Admin: 09/13/20 21:41 Dose: 25 units Documented by: Insulin Human Lispro (Insulin Lispro 100 Unit/Ml Insuln.Pen) 0 unit SC Q4 [facility]; Protocol Last Admin: 09/14/20 06:15 Dose: Not Given Documented by: Latanoprost (Latanoprost 0.005% 1 Bottle) 1 drop OPHTHALMIC QHS [facility] Last Admin: 09/13/20 21:41 Dose: 1 drop Documented by: Losartan Potassium (Losartan Potassium 100 Mg Tablet) 100 mg PO DAILY [facility] Last Admin: 09/14/20 08:06 Dose: 100 mg Documented by: Nifedipine (Nifedipine 90 Mg Tablet) 90 mg PO QHS [facility] Last Admin: 09/13/20 21:41 Dose: 90 mg Documented by: Ondansetron HCl (Ondansetron 4 Mg/2 Ml Vial) 4 mg IV Q8H PRN PRN PRN Reason: NAUSEA/VOMITING Pravastatin Sodium (Pravastatin 80 Mg Tablet) 80 mg PO DAILY@2200 [facility] Last Admin: 09/13/20 21:41 Dose: 80 mg Documented by: Timolol Maleate (Timolol 0.5% 5ml Opth.Btl) [facility] Admin: 09/14/20 08:04 Dose: 1 drop Documented by: Discharge Activity: Return to Normal Activity Weight Bearing Status: Weight bearing as tolerated Call your doctor if you observe: Fever of 101 or Higher, Shortness of breath, Dizziness, Fainting spells, Chest pain, Increased palpitations (irregular heartbeat), Uncontrolled pain Home Medications: Medications to take at Discharge Aspirin [Aspir-Low] 81 mg PO DAILY 01/21/17 Pravastatin [Pravachol] 80 mg PO DAILY 01/21/17 latanoprost 0.005 % eye drops 1 drp OPHTHALMIC QPM 04/05/18 timolol maleate 0.5 % eye drops 1 drp OPHTHALMIC .q am ml 04/05/18 cholecalciferol (vitamin D3) 25 mcg (1,000 unit) capsule 1,000 unit PO DAILY 04/26/19 furosemide 40 mg tablet 40 mg PO DAILY tab 04/26/19 Clonidine HCl [Catapres] 0.2 mg PO BID 09/13/20 Cyanocobalamin (Vitamin B-12) [Vitamin B-12] 1,000 mcg PO DAILY 09/13/20 Diclofenac Sodium [Voltaren] 0 gm TOPICAL DAILY 09/13/20 Chlorthalidone 25 mg PO DAILY #0 09/14/20 Gabapentin 300 mg PO TID #90 capsule 09/14/20 Insulin Glargine [Lantus SoloStar Pen] 20 units SC BID #1 each 09/14/20 Losartan Potassium 100 mg PO DAILY #0 tablet 09/14/20 Nifedipine [Nifedipine ER] 90 mg PO .q hs #0 tablet 09/14/20 Pen Needle, Diabetic [Pen [place]] 1 each MC BID #120 dis.needle 09/14/20 Following Prescriptions Were Given to Patient: Gabapentin 300 mg PO TID #90 capsule Transmission Status: Received by [facility] Insulin Glargine [Lantus SoloStar Pen] 20 units SC BID #1 each Transmission Status: Received by [facility] Pen Needle, Diabetic [Pen [place]] 1 each MC BID #120 dis.needle Transmission Status: Received by [facility] Primary Care Physician: Jesse Glover MD [Primary Care Provider] - Please follow up with your Primary Care Physician in: 1 week. Patient Instructions: Using a Blood Sugar Log, Controlling High Blood Pressure, How to Check Your Blood Sugar, Taking Blood Pressure Medications, Taking Your Blood Pressure Disposition: Home Minutes spent on discharge:: 28 Patient Condition:: Stable Medical Necessity - Tobacco Use Smoking Status: Never smoker Meaningful Use Info Meaningful Use Diagnoses (Choose all that apply): None applicable OBSV E&M: 71692 Observation care discharge
== END 2020-09-14 08:29 | disposition home or self-care (01) ==
LOC: ED 17:06 → PCU 18:28
PROVIDERS: Admitting Provider Hospitalist; Emergency Provider Emergency Medicine; PCP Internal Medicine; Visit Provider Hospitalist
DX: E11.65 Type 2 diabetes mellitus with hyperglycemia (principal); K21.9 Gastro-esophageal reflux disease without esophagitis; I12.9 Hypertensive chronic kidney disease with stage 1 through stage 4 chronic kidney disease, or unspecified chronic kidney disease; E11.22 Type 2 diabetes mellitus with diabetic chronic kidney disease; E78.5 Hyperlipidemia, unspecified; N18.32 Chronic kidney disease, stage 3b; M19.90 Unspecified osteoarthritis, unspecified site; E11.51 Type 2 diabetes mellitus with diabetic peripheral angiopathy without gangrene; E11.40 Type 2 diabetes mellitus with diabetic neuropathy, unspecified; E87.1 Hypo-osmolality and hyponatremia; Z79.899 Other long term (current) drug therapy; Z79.4 Long term (current) use of insulin; Z79.82 Long term (current) use of aspirin
CPT/HCPCS: 36415; 80048; 81001; 82009; 82962; 83036; 84484; 85025; 93005; 96360; 96361; 96372; 99218; 99285; J7030; A4216; G0378

== ENCOUNTER 2020-10-01 16:36 | Observation (INO) | payer MEDICARE, OTHER, SELFPAY ==
[2020-09-13 19:20] VITALS: BMI 26.8
[2020-10-01 16:37] VITALS: BP 157/98; PULSE 66; RESP 16; TEMP 36.3; O2SAT 100; BMI 26.3
[2020-10-01 16:50] VITALS: BP 168/79; PULSE 69; RESP 12; O2SAT 100
--- NOTE | 2020-10-01 16:55 | EKG12_ITS ---
Test Reason : DIZZINESS Blood Pressure : / mmHG Vent. Rate : 064 BPM Atrial Rate : 064 BPM P-R Int : 216 ms QRS Dur : 102 ms QT Int : 404 ms P-R-T Axes : 027 -44 026 degrees QTc Int : 416 ms Sinus rhythm with 1st degree A-V block with Premature atrial complexes Left axis deviation Moderate voltage criteria for LVH, may be normal variant Abnormal ECG Confirmed by JORDAN VOSS, DAVID ([id number]), online content editor LEEANN FLEMING ([id number]) on 10/03/2020 2:43:13 PM Referred By: FRANNY Confirmed By:THADDEUS ORTEGA MD
--- NOTE | 2020-10-01 16:55 | CT_ITS ---
STUDY: CT BRAIN WITHOUT CONTRAST REASON FOR EXAM: Male, 75 years old. dizziness RADIATION DOSAGE (If Supplied By Facility): CTDIvol = ( 44.99 ) mGy, DLP = ( 745.49 ) mGycm TECHNIQUE: Transaxial CT imaging of the brain was performed without administration of intravenous contrast material. Individualized dose optimization techniques were used for this CT. COMPARISON: 02/10/2017 FINDINGS: Normal soft tissue structures. Normal calvarium. Normal size ventricles and extra-axial spaces for the patient''s age. Normal white matter tracts of the cerebral hemispheres. Normal basal ganglia and thalami. Normal brainstem. Normal cerebellum. There is no intracranial hemorrhage. There are no findings of an acute ischemic infarction. Normal visualized paranasal sinuses. CT/Brain/Head without Contrast IMPRESSION: Normal unenhanced CT scan of the brain. Electronically Signed: Edson Stanley MD at 17:31 EDT , Service support ,
--- NOTE | 2020-10-01 16:59 | ED.VISSUMM ---
- ER Visit Summary Date of Service: 10/01/20 Chief Complaint: Dizziness History of Present Illness: The patient is a 75 M presenting with dizziness. Patient states this has been ongoing for the past 3 days. It is worse with standing. He has unsteady gait. He states he has felt he was going to fall but has not fallen. He denies loss of consciousness. States he occasionally has bilateral hand tingling. Denies weakness. Denies headache. Denies fever or cough. He has mild nausea with no vomiting. Denies chest pain or shortness of breath. Denies other complaints. Physical Examination: Vitals are stable. Patient is afebrile. Alert no acute distress. HEENT exam is unremarkable. Neck is supple. Lungs are clear and equal bilaterally. Heart is regular rate and rhythm. Abdomen is soft nontender nondistended. Extremities are unremarkable. Skin is warm and dry. No focal neurologic deficit. Normal strength and sensation Remainder of exam is unremarkable. Emergency Department Course and Treatment: CBC unremarkable other than hemoglobin 11.0. Chemistries show sodium 132, BUN 40, creatinine 2.39. Previous creatinine 1.71. Troponin is negative. CT head shows normal unenhanced CT scan of the brain. Chest x-ray read by myself and radiology shows no acute process. Patient states when he tries to ambulate he has unsteady gait and feels that he is falling over. Discussed with the hospitalist for observation. Disposition: Admission Impression: RONIT, vertigo This note was generated with [employer] dictation software. It may contain incorrect words, spelling, and punctuation that were not noted in review of the chart prior to signing ED Disposition - Plan for ED Patient: Referrals: Jesse Glover MD [Primary Care Provider] -
[2020-10-01] MEDS: 0.9% Normal Saline 1,000 ML 1000 ML IV (17:04)
[2020-10-01 17:07] VITALS: BP 153/69; BP 175/73; BP 176/72; PULSE 63; PULSE 66; PULSE 68
--- NOTE | 2020-10-01 17:22 | RAD_ITS ---
STUDY: X-RAY CHEST REASON FOR EXAM: Male, 75 years old. sob TECHNIQUE: Single AP portable view of the chest. COMPARISON: 06/15/2019 FINDINGS: The lungs are clear and expanded. There is no demonstrated pleural abnormality. Normal size heart. Normal mediastinum and amarjit. Normal visualized pulmonary arteries. Normal visualized aortic arch and descending thoracic aorta. There are diffuse degenerative changes of the visualized thoracic spine. There is degenerative osteoarthritis of the bilateral shoulders. There is no demonstrated abnormality of the visualized soft tissue structures of the upper abdomen. RAD/Chest 1 View (Portable) IMPRESSION: No definite acute or significant abnormality seen. Electronically Signed: Edson Stanley MD at 17:35 EDT , Service support ,
[2020-10-01 17:24] LABS: Absolute Lymphocyte Count 1.97 X10^3/uL (0.83-4.51); Absolute Neutrophil Count 2.2 X10^3/uL (2.0-7.7); Basophil# 0.02 X10^3/uL; Basophil% 0.4 % (0-1); Eosinophil# 0.02 X10^3/uL; Eosinophils% 0.4 % (0-5); Hematocrit 35.2 % (40-54); Lymphocyte # 1.97 X10^3/ul (4.0); Mean Corp Hgb Conc 31.3 g/dL (32-36); Mean Corpuscular Hgb 29.2 pg (27.0-32.0); Mean Corpuscular Volume 93.4 fL (80-94); Mean Platelet Vol. 10.6 fl (6.2-12.0); Monocyte# 0.51 X10^3/uL; Monocyte% 10.9 % (0-10); NRBC Flagged by Analyzer 0 % (0-5); Neutrophil # 2.15 X10^3/uL (2.7-7.7); Neutrophil % 45.9 % (47-70); Platelet Count 382 K/mm3 (150-450); RBC Distribution Width CV 12.9 % (11.6-14.6); RBC Distribution Width SD 44.3 fl (35.1-43.9); Red Blood Count 3.77 M/mm3 (4.6-6.2); White Blood Count 4.7 K/mm3 (4.4-11.0)
[2020-10-01 17:44] LABS: Anion Gap 4 (5-15); BUN 40 mg/dL (7-18); BUN/Creat Ratio 16.7 RATIO (10-20); Calcium,Total 9.6 mg/dL (8.5-10.1); Chloride 103 mmol/L (98-107); Creatinine, Serum 2.39 mg/dL (0.70-1.30); EST Glomerular Filtration Rate 28 mL/min (>60); Est Glom Filt Rate - Afr Amer 34 mL/min (>60); Estimated Creatinine Clearance 29.32 ml/min; Glucose 133 mg/dL (74-106); Potassium 4.8 mmol/L (3.5-5.1); Sodium Level 132 mmol/L (136-145)
--- NOTE | 2020-10-01 18:05 | PCM.HP.STD ---
Problem List (1) Near syncope Status: Acute (2) Vertigo Status: Acute (3) RONIT (acute kidney injury) Status: Acute (4) GERD (gastroesophageal reflux disease) Status: Chronic Qualifiers: Esophagitis presence: esophagitis presence not specified Qualified Code(s): K21.9 - Gastro-esophageal reflux disease without esophagitis (5) Thoracic aortic aneurysm without rupture Status: Chronic (6) CKD (chronic kidney disease) stage 3, GFR 30-59 ml/min Status: Chronic Qualifiers: Chronic kidney disease stage 3 subtype: unspecified whether 3a or 3b Qualified Code(s): N18.30 - Chronic kidney disease, stage 3 unspecified (7) Type 2 diabetes mellitus Status: Chronic Qualifiers: Diabetes mellitus rat exterminator insulin use: with usp use Diabetes mellitus complication status: with other specified complication Qualified Code(s): E11.69 - Type 2 diabetes mellitus with other specified complication; Z79.4 - terminal 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 The patient is a 75 y/o M w/ PMHx: CKD stage III, OA, Diabetes mellitus type II w/ neuropathy, GERD, HTN, HLD, Known Thoracic aortic aneurysm who presents to the [facility] ED on 10/01/20 with history of going dizziness over the last 3 days, worse with ambulation attempts with unsteady gait with sensation of potentially falling over with no LOC with mild nausea without emesis prompting eventual ED presentation. He does describe mild room spinning sensation also and has been seeing ENT outpatient for BL ear ringing and vertigo. He denies any associated chest pain, palpitations, chest heaviness. He does note that he is received both Covid vaccinations, the last one approximately 4 weeks prior to current presentation. He does report that at that time he had issues with hyperglycemia and did require admission but since then has been doing well into the last 3 days. In the ED he notes feeling improved but again states that he only has unsteady gait sensation and dizziness as well as vertiginous symptoms when he is up and moving. Work-up in the ED included T 97.4, heart rate 66, BP 157/98, respiratory rate 16, other percent on room air, negative orthostatic vital signs, CBC with WC 4.7, hemoglobin, platelet 382 without marked shift, BMP with sodium 132, BUN/creatinine 40/2.39, glucose 133, troponin less than 0.015, chest x-ray with no acute cardiopulmonary findings, CT the brain with no acute intracranial findings, EKG with sinus rhythm with nonspecific changes with no acute evidence of ischemia. In the ED patient administered normal saline. Past Medical History Past Medical History (Chronic Problems): Chronic Problems (Last Updated 09/13/20 @ 18:[address] Yon Rogel MD) Claudication (Chronic) GERD (gastroesophageal reflux disease) (Chronic) Thoracic aortic aneurysm without rupture (Chronic) CKD (chronic kidney disease) stage 3, GFR 30-59 ml/min (Chronic) Type 2 diabetes mellitus (Chronic) Essential hypertension (Chronic) Hyperlipidemia (Chronic) Medical History: Medical History (Last Updated 09/13/20 @ 18:[address] 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 Glaucoma H40.9 Macular edema H35.81 Neuropathy G62.9 Vision problems H54.7 Proliferative diabetic retinopathy E11.3599 Allergies cortisone Allergy (Verified 10/01/20 16:42) hyperglycemia Home Medications: Ambulatory Orders Medication Instructions Recorded Aspirin [Aspir-Low] 81 mg PO DAILY 01/21/17 Pravastatin [Pravachol] 80 mg PO DAILY 01/21/17 latanoprost 0.005 % eye drops 1 drp OPHTHALMIC QPM 04/05/18 timolol maleate 0.5 % eye drops 1 drp OPHTHALMIC .q am ml 04/05/18 cholecalciferol (vitamin D3) 25 1,000 unit PO DAILY 04/26/19 mcg (1,000 unit) capsule furosemide 40 mg tablet 40 mg PO DAILY tab 04/26/19 Clonidine HCl [Catapres] 0.2 mg PO BID 09/13/20 Cyanocobalamin (Vitamin B-12) 1,000 mcg PO DAILY 09/13/20 [Vitamin B-12] Diclofenac Sodium [Voltaren] 0 gm TOPICAL DAILY 09/13/20 Chlorthalidone 25 mg PO DAILY #0 09/14/20 Gabapentin 300 mg PO TID #90 capsule 09/14/20 Insulin Glargine [Lantus SoloStar 20 units SC BID #1 each 09/14/20 Pen] Losartan Potassium 100 mg PO DAILY #0 tablet 09/14/20 Nifedipine [Nifedipine ER] 90 mg PO .q hs #0 tablet 09/14/20 Pen Needle, Diabetic [Pen [place]] 1 each MC BID #120 dis.needle 09/14/20 Surgical History: Surgical History (Last Reviewed 07/07/20 @ 13:54 by Alee Ochoa) History of colonoscopy Onset Date: ~2015 Z98.890 H/O eye surgery Z98.890 History of bilateral cataract extraction Z98.41, Z98.42 History of cholecystectomy Z90.49 History of prostatectomy Z90.79 History of repair of rotator cuff Z98.890 RT History of vitrectomy Z98.890 Surgical History: cholecystectomy, TURP, - - Prostatectomy, right rotator cuff surgery, bilateral cataract surgery, eye surgery, cholecystectomy. Psychiatric History: No pertinent psych hx Lives: Spouse/ Significant Other Smoking Status: Never smoker Tobacco Use: Non-smoker Alcohol: Occasional Drugs: None - *Family History Maternal Family History: Family History (Last Reviewed 07/07/20 @ 13:54 by Alee Ochoa) Other Diabetes Heart disease Hypertension Kidney disease History Items: Cancer - Other with a history of breast cancer. Paternal Family History: Family History (Last Reviewed 07/07/20 @ 13:54 by Alee Ochoa) Other Diabetes Heart disease Hypertension Kidney disease History Items: - - Father with a history of black lung disease secondary to coal mining work. Patient denies any paternal history of heart disease, diabetes or cancer. Review of Systems Constitutional: Reports: Fatigue. Denies: Anorexia, Chills, Fever, Malaise, Weakness, Weight Change HEENT: Reports: - - Chronic intermittent ringing in his ears., - - Vertiginous symptoms with lightheadedness, dizziness.. Denies: Head Aches, Sinus Congestion, Sinus Drainage Cardiovascular: Reports: Light Headedness. Denies: Chest Pain, Chest Pressure, Chest Tightness, Palpitations Respiratory: Denies: Cough, Shortness of Breath, Shortness of breath at rest, Shortness of breath upon exertion, Sputum production Gastrointestinal: Reports: Nausea. Denies: Abdominal Pain, Vomiting Genitourinary: Denies: Dysuria Musculoskeletal: Reports: Joint Pain. Denies: Joint Tenderness Skin: Denies: Rash, Wounds Neurological: Reports: - - Vertigo, dizziness, difficulty with gait secondary to dizziness, no specific focal deficits associated.. Denies: Focal weakness, Numbness, Tingling Psychiatric: Denies: Anxiety, Depression, Homicidal Ideations, Suicidal Ideations Hematologic/ Lymphatic: Denies: Easy Bruising, Easy Bleeding VTE Information - Inpt Only VTE Present on Admission: No VTE Mechan Device Prophylaxis: SCD's VTE Pharm Prophylaxis ordered?: Yes Subjective: Patient seated upright in ED bed, notes feeling improved, no acute complaints at this time. Objective: Physical Examination: General: awake, alert, oriented x 3 and cooperative, seated upright in the ED bed in no apparent distress. Skin: normal color, turgor, no icterus, cyanosis. HEENT: AT/NC, EOMI, PERRLA, moderately dry MM, no carotid bruits or JVD noted. Lungs: Diminished breath sounds, greater bases, appropriate effort, no rales, ronchi or wheezing. Heart: Regular rate and rhythm; no gallop, rub audible. Abdomen: soft, NTTP, ND, normal BS, no HSM. Extremities: no cyanosis, clubbing, or edema. Neurological: patient awake, alert, oriented as noted; cognitive function intact; pupils equally reactive to light and accomodation; cranial nerves II-XII grossly normal, moving all 4 extremities, no focal deficits, strength preserved, unable to reproduce any nystagmus. Psychiatric: affect appears mildly fatigued otherwise normal, no acute evidence of depressive or anxiety feelings. - Physical Exam Vitals/I&O's: Vital Signs Temp Pulse Resp BP Pulse Ox 97.4 F L 66 12 175/73 H 100 10/01/20 16:37 10/01/20 17:07 10/01/20 16:50 10/01/20 17:07 10/01/20 16:50 Oxygen Delivery Method Room Air Weight: 189 lb Body Mass Index (BMI) 26.3 Finger Stick Blood Glucose 541 Laboratory Results 10/01/20 17:03: WBC 4.7, RBC 3.77 L, Hgb 11.0 L, Hct 35.2 L, MCV 93.4, MCH 29.2, MCHC 31.3 L, RDW Std Deviation 44.3 H, RDW Coeff of [place] 12.9, Plt Count 382, MPV 10.6, Immature Gran % (Auto) 0.400, Neut % (Auto) 45.9 L, Lymph % (Auto) 42.0 H, [place] % (Auto) 10.9 H, Eos % (Auto) 0.4, Baso % (Auto) 0.4, Absolute Neuts (auto) 2.2, Absolute Lymphs (auto) 1.97, Nucleated RBC % 0 10/01/20 17:03: Sodium 132 L, Potassium 4.8, Chloride 103, Carbon Dioxide 25.0, Anion Gap 4 L, BUN 40 H, Creatinine 2.39 H, Estim Creat Clear Calc 29.32, Est GFR (MDRD) Af Amer 34 L, Est GFR (MDRD) Non-Af 28 L, BUN/Creatinine Ratio 16.7, Glucose 133 H, Calcium 9.6, Troponin I < 0.015 Assessment/Plan All Active Problems (Last Updated 09/13/20 @ 18:[address] Yon Rogel MD) Near syncope (Acute) Vertigo (Acute) RONIT (acute kidney injury) (Acute) The patient is a 75 y/o M w/ PMHx: CKD stage III, OA, Diabetes mellitus type II w/ neuropathy, GERD, HTN, HLD, Known Thoracic aortic aneurysm who presents to the [facility] ED on 10/01/20 with history of going dizziness over the last 3 days, worse with ambulation attempts with unsteady gait with sensation of potentially falling over with no LOC with mild nausea without emesis prompting eventual ED presentation. 1. Lightheadedness, near syncope sensation, ? BPPV: Unclear etiololgy but ED with orthostatic vital signs mildly notable, EKG in ED w/ sinus rhythm without evidence of acute ischemia, CXR w/ no acute cardiopulmonary findings, initial trop normal, CT head with no acute intracranial findings. Will admit to PCU, place on a monitored bed to assure no acute myocardial infarction with serial cardiac enzymes and EKGs. Will maintain on fall precautions, obtain repeat AM orthostatic VS following overnight judicious hydration. Most recent echocardiogram 05/11/2019 with normal LV systolic function, EF 65%, trivial MVI, mild diffuse AV thickening, mild focal AV calcification, trivial PVI, no evidence of diastolic dysfunction therefore will repeat. Will maintain on meclizine given vertigo symptoms concurrently. PT/OT consultation to ascertain stability and discharge needs. Given timeline will also obtain MRI brain to be cautious in case of posterior CVA. Patient does report that chronic intermittent ringing in his ears is unchanged from his ongoing. 2. Acute kidney injury on CKD stage III: Secondary to suspected mild hypovolemia especially with #1 presentation. Admission BUN/Cr 40/2.39, prior baseline creatinine noted to be 1.5-1.8. Will hydrate, hold nephrotoxic medications and repeat chemistry in AM. If no improvement would plan FeNa assessment. 3. Hypertension: Continue home regimen including clonidine, nifedipine, holding patient chlorthalidone, Lasix as well as losartan given mild RONIT, resume once appropriate, PRN hydralazine. 4. Hyperlipidemia: Continue home statin regimen. 5. Diabetes mellitus type II with neuropathy: Hold oral home regimen, continue home insulin regimen, ADA diet, accu checks w/ ISS, continue gabapentin unless renal function worsens further. 6. Chronic normocytic anemia: Admission hemoglobin 11, prior appears 10-11, stable, trend. 7. Known thoracic aortic aneurysm: No recently noted chest imaging, will encourage continued outpatient follow-up with his vascular surgeon, if any concerning symptoms may consider further imaging. 8. GERD: We will maintain on PPI. 9. DVT prophylaxis: SCDs, Lovenox. 10. CODE status: Patient JENNIFER is his and living will is currently in place. Discussed CODE status at length including difference between FULL code, DNR-CCA and DNR-CC status. Following discussions about the differences in these status, requested DNR-CCA, no intubation status. Advanced Care Planning Face to Face Time: 16 minutes. OBSV E&M: 95492 Initial observation care L3 Procedures: 53302 Advncd Care Plan 30 Min
--- NOTE | 2020-10-01 18:18 | NURSING ---
PCU WHITE VERTIGO, RONIT
--- NOTE | 2020-10-01 18:40 | ECHOD_ITS ---
Reason For Study: syncope/near syncope Procedure This was a 2D Doppler, Color Flow transthoracic echocardiogram. The study was technically difficult. Exam performed portable in patient room. Left Ventricle Normal LV size. Moderate concentric left ventricular hypertrophy. Left ventricular systolic function is normal. The estimated ejection fraction is 65 %. No evidence for diastolic dysfunction. No regional wall motion abnormalities noted. Right Ventricle Normal RV size. Normal systolic function. Atria Normal left atrium. Normal right atrium. No doppler evidence for ASD. Mitral Valve There is no mitral annular calcification. Anterior leaflet diffuse mitral valve thickening. Trivial mitral valve insufficiency. Tricuspid Valve Normal tricuspid valve. Trivial tricuspid valve insufficiency. Unable to estimate RV systolic pressure/pulmonary artery pressure due to technically difficult study. Aortic Valve Trisinus/trileaflet aortic valve. Mild focal aortic valve thickening. Mild focal aortic valve calcification. Pulmonic Valve The pulmonic valve is not well visualized. Great Vessels Normal sized aortic root. Pericardium/Pleural No pericardial effusion. MMode/2D Measurements & Calculations LVIDd: 4.6 cm IVSd: 1.8 cm Ao root diam: 3.2 cm LVIDs: 3.2 cm LVPWd: 1.6 cm FS: 30.4 % LAV(MOD-bp): 41.5 ml LA A4 area: 15.0 cm2 LA dimension(2D): 3.0 cm LAV(MOD-bp) Indexed: 20.0 ml/m2 LAV(MOD-sp2): 40.5 ml LAV(MOD-sp4): 36.7 ml Time Measurements MV dec time: 0.28 sec Doppler Measurements & Calculations MV E max satish: 56.2 cm/sec Lat A' satish: 9.5 cm/sec Med Peak E' Satish: 4.5 cm/sec MV A max satish: 77.3 cm/sec E/E' med: 12.6 MV E/A: 0.73 Ao V2 max: 93.1 cm/sec PA V2 max: 84.6 cm/sec Ao max P.5 mmHg ECHO/Echo Complete Interpretation Summary The study was technically difficult. Left ventricular systolic function is normal. The estimated ejection fraction is 65 %. Moderate concentric left ventricular hypertrophy. Anterior leaflet diffuse mitral valve thickening. Trivial mitral valve insufficiency. Trivial tricuspid valve insufficiency. Mild focal aortic valve thickening. Mild focal aortic valve calcification. Unable to estimate RV systolic pressure/pulmonary artery pressure due to techni mary ann difficult study. No evidence for diastolic dysfunction. Ordering Physician: Ayala Barron Referring Physician: Jesse Glover Performed By: Alee Almeida RDCS, RVT
[2020-10-01 18:45] VITALS: BP 159/61; PULSE 63; RESP 16; TEMP 36.6; O2SAT 98
[2020-10-01 19:04] VITALS: BMI 27.1
[2020-10-01 19:10] VITALS: BMI 27.2
[2020-10-01 19:12] LABS: Magnesium 2.4 mg/dL (1.6-2.6)
[2020-10-01 19:38] VITALS: PULSE 74
[2020-10-01] MEDS: Latanoprost 0.005% 1 Bottle 1 DRP OPHTHALMIC (20:07)
[2020-10-01] MEDS: Meclizine 12.5 MG Tablet PO (20:08)
[2020-10-01] MEDS: cloNIDine HCl 0.2 MG Tablet PO (20:08)
[2020-10-01] MEDS: Gabapentin 300 MG Capsule PO (20:09)
[2020-10-01] MEDS: Pravastatin 80 MG Tablet PO (20:09)
[2020-10-01] MEDS: NIFEdipine 90 MG Tablet PO (20:10)
[2020-10-01] MEDS: 0.9% Normal Saline 1,000 ML 100 ML IV (20:10)
[2020-10-01] MEDS: Acetaminophen 325 MG Tablet 650 MG PO (20:13)
[2020-10-01 21:13] VITALS: O2SAT 97
[2020-10-01 22:21] LABS: Bedside Glucose 150 mg/dL (70-110)
[2020-10-02] VITALS (9 sets, daily range): BP systolic 102–151; BP diastolic 61–72; PULSE 58–98; RESP 12–18; TEMP 37–37.1; O2SAT 94–100
[2020-10-02] MEDS: Meclizine 12.5 MG Tablet PO ×2 (00:50→06:25)
[2020-10-02] MEDS: 0.9% Normal Saline 1,000 ML 100 ML IV (04:09)
--- NOTE | 2020-10-02 05:55 | EKG12_ITS ---
Test Reason : AM EKG Blood Pressure : / mmHG Vent. Rate : 064 BPM Atrial Rate : 064 BPM P-R Int : 224 ms QRS Dur : 094 ms QT Int : 390 ms P-R-T Axes : 029 -42 011 degrees QTc Int : 402 ms Sinus rhythm with sinus arrhythmia with 1st degree A-V block Left axis deviation Abnormal ECG When compared with ECG of 01-OCT-2020 17:06, MANUAL COMPARISON REQUIRED, DATA IS UNCONFIRMED Confirmed by MARIE VOSS, JIM ([id number]), make up editor DAMIEN WICK ([id number]) on 10/08/2020 1:11:34 PM Referred By: DR LEPE Confirmed By:JIM SALAZAR MD
--- NOTE | 2020-10-02 05:55 | MRI_ITS ---
STUDY: MRI BRAIN WITHOUT CONTRAST REASON FOR EXAM: Male, 75 years old. Vertigo, unsteady gait. TECHNIQUE: Standardized multiplanar fat and water weighted pulse sequences were obtained. COMPARISON: CT October 01, 2020. MRI February 12, 2020 FINDINGS: Normal size of the ventricles and extra-axial spaces for the patient''s age. Normal white matter tracts of the supratentorial brain. Normal bilateral basal ganglia. Normal thalami. There is no extra-axial fluid accumulation. Normal flow voids within the major intracranial circulation suggesting patency by spin echo criteria. Normal sella turcica, pituitary gland, infundibular stalk, optic chiasm and hypothalamus. Normal tectal plate and pineal gland. Normal midbrain, jennifer and medulla. Normal cerebellum. Normal basal cisterns. Normal bilateral temporal bones. Normal bilateral internal auditory canals. There are bilateral ocular lens implants with otherwise normal intraorbital contents. Normal visualized paranasal sinuses. Normal calvarium and skull base. Normal visualized soft tissue structures. Normal visualized upper cervical spine. MRI/Brain without Contrast IMPRESSION: Normal unenhanced MRI of the brain. Electronically Signed: Pierre Savage MD at 10:34 EDT , Service support ,
[2020-10-02] MEDS: Gabapentin 300 MG Capsule PO (06:25)
[2020-10-02 06:41] LABS: Bedside Glucose 117 mg/dL (70-110)
[2020-10-02 07:04] LABS: Absolute Lymphocyte Count 1.52 X10^3/uL (0.83-4.51); Absolute Neutrophil Count 1.4 X10^3/uL (2.0-7.7); Basophil# 0.02 X10^3/uL; Basophil% 0.6 % (0-1); Eosinophil# 0.03 X10^3/uL; Eosinophils% 0.8 % (0-5); Hematocrit 29.7 % (40-54); Lymphocyte # 1.52 X10^3/ul (4.0); Lymphocyte % 43.1 % (19-41); Mean Corp Hgb Conc 30.3 g/dL (32-36); Mean Corpuscular Hgb 28.8 pg (27.0-32.0); Mean Corpuscular Volume 95.2 fL (80-94); Mean Platelet Vol. 10.7 fl (6.2-12.0); Monocyte# 0.54 X10^3/uL; Monocyte% 15.3 % (0-10); NRBC Flagged by Analyzer 0 % (0-5); Neutrophil # 1.41 X10^3/uL (2.7-7.7); Neutrophil % 39.9 % (47-70); Platelet Count 306 K/mm3 (150-450); RBC Distribution Width CV 13.1 % (11.6-14.6); RBC Distribution Width SD 45.4 fl (35.1-43.9); Red Blood Count 3.12 M/mm3 (4.6-6.2); White Blood Count 3.5 K/mm3 (4.4-11.0)
[2020-10-02 07:39] LABS: ALB/GLOB Ratio 0.9 RATIO (0.9-2.4); AST(SGOT) 14 U/L (15-37); Alanine Aminotransfer ALT/SGPT 13 U/L (16-61); Albumin, Serum 3.1 g/dL (3.2-5.0); Alkaline Phosphatase 44 U/L (45-117); Anion Gap 6 (5-15); BUN 34 mg/dL (7-18); BUN/Creat Ratio 18.3 RATIO (10-20); Calcium,Total 8.4 mg/dL (8.5-10.1); Chloride 109 mmol/L (98-107); Cholesterol 165 mg/dL (200); Creatinine, Serum 1.86 mg/dL (0.70-1.30); EST Glomerular Filtration Rate 38 mL/min (>60); Est Glom Filt Rate - Afr Amer 46 mL/min (>60); Estimated Creatinine Clearance 37.67 ml/min; Globulin 3.5 g/dL (2.2-4.2); Glucose 120 mg/dL (74-106); High Density Lipoprotein 48 mg/dL; Potassium 4.5 mmol/L (3.5-5.1); Protein, Total 6.6 g/dL (6.4-8.2); Sodium Level 137 mmol/L (136-145); Triglycerides 126 mg/dL; Very Low Density Lipoprotein 25 mg/dL (5-40)
[2020-10-02] MEDS: Acetaminophen 325 MG Tablet 650 MG PO (07:41)
[2020-10-02] MEDS: Aspirin E.C. 81 MG Tablet PO (07:42)
[2020-10-02] MEDS: LORazepam 2 MG/ML Syringe 1 MG IV (09:07)
[2020-10-02] MEDS: 0.9% Saline Lock 10 ML Syringe IV (09:08)
[2020-10-02] MEDS: Famotidine 20 MG Tablet PO (10:53)
[2020-10-02] MEDS: cloNIDine HCl 0.2 MG Tablet PO (10:53)
[2020-10-02] MEDS: Enoxaparin 30 MG/0.3 ML Syringe SC (10:54)
[2020-10-02] MEDS: Timolol 0.5% 5ML OPTH.BTL 1 DRP OPHTHALMIC (10:54)
[2020-10-02 11:10] LABS: Bedside Glucose 160 mg/dL (70-110)
--- NOTE | 2020-10-02 11:26 | DCINST_ITS ---
- Discharge Diagnoses Current Active Problems: Current Active and Chronic Problems (Last Updated 09/13/20 @ 18:[address] Yon Rogel MD) Near syncope (Acute) Vertigo (Acute) RONIT (acute kidney injury) (Acute) GERD (gastroesophageal reflux disease) (Chronic) Thoracic aortic aneurysm without rupture (Chronic) CKD (chronic kidney disease) stage 3, GFR 30-59 ml/min (Chronic) Type 2 diabetes mellitus (Chronic) Essential hypertension (Chronic) Hyperlipidemia (Chronic) You will use the following diet at home:: Calorie/Carbohydrate Controlled (specify 1200, 1400, etc) - 1800 micky Your food should be the consistency of: Regular Your liquids should be the consistency of: Regular/Thin Discharge Activity: Return to Normal Activity Weight Bearing Status: Full weight bearing Allergies/Adverse Reactions: Allergies cortisone Adverse Reaction (Verified 10/01/20 19:04) hyperglycemia Medications to take at Discharge Aspirin [Aspir-Low] 81 mg PO DAILY 01/21/17 Pravastatin [Pravachol] 80 mg PO DAILY 01/21/17 latanoprost 0.005 % eye drops 1 drp EACH EYE QPM 04/05/18 cholecalciferol (vitamin D3) 25 mcg (1,000 unit) capsule 1,000 unit PO DAILY 04/26/19 furosemide 40 mg tablet 40 mg PO DAILY tab 04/26/19 Clonidine HCl [Catapres] 0.2 mg PO BID 09/13/20 Cyanocobalamin (Vitamin B-12) [Vitamin B-12] 1,000 mcg PO DAILY 09/13/20 Chlorthalidone 25 mg PO DAILY #0 09/14/20 Gabapentin 300 mg PO TID #90 capsule 09/14/20 Insulin Glargine [Lantus SoloStar Pen] 20 units SC BID #1 each 09/14/20 Losartan Potassium 100 mg PO DAILY #0 tablet 09/14/20 Nifedipine [Nifedipine ER] 90 mg PO .q hs #0 tablet 09/14/20 Pen Needle, Diabetic [Pen [place]] 1 each MC BID #120 dis.needle 09/14/20 Diclofenac Sodium 1 applic TOPICAL 4X/DAY PRN PRN 10/01/20 Insulin Lispro [Humalog KwikPen] 6 units SC TIDCM 10/01/20 Timolol 0.5% [Timoptic] 1 drp EACH EYE BID 10/01/20 Diazepam [Valium] 5 mg PO UD #15 tablet 10/02/20 Famotidine [Pepcid] 20 mg PO DAILY tablet 10/02/20 The following prescriptions were given: Diazepam [Valium] 5 mg PO UD #15 tablet Transmission Status: Sent to [facility]30 Primary Care Physician: Jesse Glover MD [Primary Care Provider] - Please follow up with your Primary Care Physician in: in 7 days Test Results: Test results from this visit will be discussed in further detail at your follow- up appointment, if applicable.
--- NOTE | 2020-10-02 11:51 | CASEMGMT ---
[facility] NOTE: PT/OT has seen pt and Vestibular therapy is recommended. Pt goes to OP therapy @ [facility] and would like to continue to go there for vestibular therapy. Call placed to [facility] OP therapy and they do not have therapist @ [facility] location that can do vestibular therapy. Per Dr Romero, he does not feel pt needs vestibular therapy at this time. Pt/ aware. Therapy did recommend [facility] and pt is agreeable. Pt/ provided w/list of local DME co's and they prefer [employer]. Script received from Dr Romero and faxed to [facility] at this time. Call placed to [facility] and they will deliver walker to pt's room today. Pt/ deny having any other d/c needs. Pt plans to continue OP therapy @ [facility] for his shoulder. Patricia BOND RN, CM
--- NOTE | 2020-10-03 18:25 | PCM.DC.SUM ---
Discharge Date and Diagnosis - Problem List Patient Problems: Active and Suspected Problems (Last Updated 09/13/20 @ 18:[address] Yon Rogel MD) Near syncope (Acute) Vertigo (Acute) RONIT (acute kidney injury) (Acute) Date of Admission: 10/01/20 Date of Discharge: 10/02/20 - Primary Discharge Diagnosis Acute Problems: Active Problems (Last Updated 09/13/20 @ 18:[address] Yon Rogel MD) #1 near syncope-secondary to orthostatic hypotension from diuretic usage #2 acute kidney injury secondary to diuretic usage #3 chronic kidney disease stage IIIb secondary to type 2 diabetes #4 essential hypertension #5 type 2 diabetes Vertigo was ruled out - Secondary Discharge Diagnosis Chronic Problems: Chronic Problems (Last Updated 09/13/20 @ 18:[address] Yon Rogel MD) Claudication (Chronic) GERD (gastroesophageal reflux disease) (Chronic) Thoracic aortic aneurysm without rupture (Chronic) CKD (chronic kidney disease) stage 3, GFR 30-59 ml/min (Chronic) Type 2 diabetes mellitus (Chronic) Essential hypertension (Chronic) Hyperlipidemia (Chronic) Hospital Course and Treatment Operations: None Procedures: 2-D Echocardiogram Summary of Care Provided: The patient is a 75 year old M who was seen in the emergency room at [facility] with chief complaint of dizziness/lightheadedness. Patient states that he felt he was going to pass out when standing up but did not. Patient denied any symptoms while seated. Work-up in the emergency room included labs which showed an elevated BUN of 40 and a creatinine of 2.39, sodium was 132, CBC was unremarkable, CT of the head shows no acute process. Patient was placed in observation status on PCU for acute kidney injury and possible vertigo, he was noted to be orthostatically hypotensive at times, patient an echocardiogram performed which was unremarkable. This examiner felt that the patient had presyncope secondary to orthostatic hypotension from diuretic usage. MRI of the brain was normal. On examination he appeared in good health and spirits. Vital signs as documented. Skin warm and dry and without overt rashes. Neck without JVD, neck was supple, trachea midline, thyroid was normal. Lungs clear bilaterally, normal air movement was noted. Heart exam notable for regular rhythm, normal sounds and absence of murmurs, rubs or gallops. Abdomen unremarkable and without evidence of organomegaly, masses, or abdominal aortic enlargement. Bowel sounds are present, abdomen is not distended. Extremities nonedematous, no cyanosis was noted, no clubbing was noted. Neuro: Cranial nerves II through XII are grossly intact, no focal motor deficits were noted, sensation to light touch and pinprick intact, motor exam 5/5 throughout. Psych: Patient is alert and oriented x3, he does not appear anxious or depressed, he does not appear agitated. Patient appears stable for discharge on 10/02/2020, he was instructed on discharge to stop one of his diuretics and follow-up with his PCP and search advertising strategist. Did not feel the patient had vertigo. Patient Problems: Active and Suspected Problems (Last Updated 09/13/20 @ 18:[address] Yon Rogel MD) Near syncope (Acute) Vertigo (Acute) RONIT (acute kidney injury) (Acute) - Physical Exam Vitals/I&O's: Vital Signs Temp Pulse Resp BP Pulse Ox 98.6 F 98 12 137/70 H 98 10/02/20 11:06 10/02/20 11:06 10/02/20 11:06 10/02/20 11:06 10/02/20 11:06 Oxygen Delivery Method Room Air Weight: 88.4 kg Body Mass Index (BMI) 27.1 Finger Stick Blood Glucose 541 Intake and Output for Last 24 Hours 10/01/20 10/02/20 10/03/20 23:59 23:59 23:59 Intake Total 1440 / 1440 1648.33 / 1648.33 Output Total 900 / 900 500 / 500 Balance 540 / 540 1148.33 / 1148.33 Discharge Activity: Return to Normal Activity Weight Bearing Status: Full weight bearing Home Medications: Medications to take at Discharge Aspirin [Aspir-Low] 81 mg PO DAILY 01/21/17 Pravastatin [Pravachol] 80 mg PO DAILY 01/21/17 latanoprost 0.005 % eye drops 1 drp EACH EYE QPM 04/05/18 cholecalciferol (vitamin D3) 25 mcg (1,000 unit) capsule 1,000 unit PO DAILY 04/26/19 furosemide 40 mg tablet 40 mg PO DAILY tab 04/26/19 Clonidine HCl [Catapres] 0.2 mg PO BID 09/13/20 Cyanocobalamin (Vitamin B-12) [Vitamin B-12] 1,000 mcg PO DAILY 09/13/20 Gabapentin 300 mg PO TID #90 capsule 09/14/20 Insulin Glargine [Lantus SoloStar Pen] 20 units SC BID #1 each 09/14/20 Losartan Potassium 100 mg PO DAILY #0 tablet 09/14/20 Nifedipine [Nifedipine ER] 90 mg PO .q hs #0 tablet 09/14/20 Pen Needle, Diabetic [Pen [place]] 1 each MC BID #120 dis.needle 09/14/20 Diclofenac Sodium 1 applic TOPICAL 4X/DAY PRN PRN 10/01/20 Insulin Lispro [Humalog KwikPen] 6 units SC TIDCM 10/01/20 Timolol 0.5% [Timoptic] 1 drp EACH EYE BID 10/01/20 Diazepam [Valium] 5 mg PO UD #15 tablet 10/02/20 Famotidine [Pepcid] 20 mg PO DAILY tablet 10/02/20 Following Prescriptions Were Given to Patient: Diazepam [Valium] 5 mg PO UD #15 tablet Transmission Status: Received by [email or web address] Primary Care Physician: Jesse Glover MD [Primary Care Provider] - Please follow up with your Primary Care Physician in: in 7 days Disposition: Home Minutes spent on discharge:: 30 Patient Condition:: Stable Medical Necessity - Tobacco Use Smoking Status: Never smoker Tobacco Use: Non-smoker Meaningful Use Info Meaningful Use Diagnoses (Choose all that apply): None applicable OBSV E&M: 51821 Observation care discharge
== END 2020-10-02 11:27 | disposition home or self-care (01) ==
LOC: ED 18:19 → PCU 18:33
PROVIDERS: Admitting Provider Family Medicine; Emergency Provider Emergency Medicine; PCP Internal Medicine; Visit Provider Internal Medicine
DX: I95.1 Orthostatic hypotension (principal); N17.9 Acute kidney failure, unspecified; N18.32 Chronic kidney disease, stage 3b; E11.22 Type 2 diabetes mellitus with diabetic chronic kidney disease; E11.51 Type 2 diabetes mellitus with diabetic peripheral angiopathy without gangrene; I12.9 Hypertensive chronic kidney disease with stage 1 through stage 4 chronic kidney disease, or unspecified chronic kidney disease; T50.2X5A Adverse effect of carbonic-anhydrase inhibitors, benzothiadiazides and other diuretics, initial encounter; K21.9 Gastro-esophageal reflux disease without esophagitis; E78.5 Hyperlipidemia, unspecified; Z79.899 Other long term (current) drug therapy; Z79.82 Long term (current) use of aspirin; Z79.4 Long term (current) use of insulin; M19.90 Unspecified osteoarthritis, unspecified site; E11.3599 Type 2 diabetes mellitus with proliferative diabetic retinopathy without macular edema, unspecified eye; E11.40 Type 2 diabetes mellitus with diabetic neuropathy, unspecified; D64.9 Anemia, unspecified
CPT/HCPCS: 36415; 70450; 70551; 71045; 80048; 80053; 80061; 82962; 83735; 84484; 85025; 93005; 93306; 96361; 96372; 96374; 97162; 97166; 99218; 99251; 99283; J7030; Q9957; A4216; G0378; G0463

== ENCOUNTER → 2021-03-19 13:23 | Outpatient (CLI) | payer MEDICARE, OTHER, SELFPAY ==
[2021-03-19 14:06] LABS: PSA,Total- Diagnostic 1.06 ng/mL (0.0-4.0)
== END ==
PROVIDERS: PCP Internal Medicine; Referring Provider Urology; Visit Provider Urology
DX: N40.1 Benign prostatic hyperplasia with lower urinary tract symptoms (principal)
CPT/HCPCS: 36415; 84153

== ENCOUNTER 2021-08-07 19:19 | Emergency (ER) | payer MEDICARE, OTHER, SELFPAY ==
[2021-08-07 19:20] VITALS: PULSE 82; RESP 18; TEMP 36.6; O2SAT 98; BMI 29.2
--- NOTE | 2021-08-07 19:26 | EKG12_ITS ---
Test Reason : DIZZY Blood Pressure : / mmHG Vent. Rate : 082 BPM Atrial Rate : 082 BPM P-R Int : 242 ms QRS Dur : 102 ms QT Int : 398 ms P-R-T Axes : 041 -38 053 degrees QTc Int : 464 ms Sinus rhythm with 1st degree A-V block with Premature atrial complexes Left axis deviation Voltage criteria for left ventricular hypertrophy Poor R wave progression Abnormal ECG Confirmed by RUSS VOSS, JAYE ([id number]), market editor DAMIEN WICK ([id number]) on 08/11/2021 9:41:04 AM Referred By: ESA Confirmed By:JAYE SOLANO MD
--- NOTE | 2021-08-07 20:10 | EX.ED.DYSGE1 ---
HPI History of Present Illness Chief Complaint: Dizziness Narrative Narrative: 76-year-old male presenting with hypoglycemic episode. Patient states that he was doing well today. He took his normal long-acting insulin this morning. He takes sliding scale through the day. He states he ate meals and describes eating breakfast and chicken wings for lunch and dinner. He states that he walked out to the garage and felt like his blood sugar was dropping and called for his . His blood sugar was 66. He states he would normally be symptomatic at this level. Patient had some orange juice but states that when his blood sugar dropped he felt like he was having vertiginous symptoms. He has a history of vertigo and it feels similar. He states he did not take anything for vertigo because he was nauseous. He did not have any facial droop, slurred speech, weakness of the unilateral extremity. He does not have any headache. He denies chest pain or shortness of breath. PFSH PFS Medical History Arthritis CKD (chronic kidney disease) stage 3, GFR 30-59 ml/min Claudication Essential hypertension Family history of prostate problems Gallbladder anomaly GERD (gastroesophageal reflux disease) Glaucoma Hyperlipidemia Macular edema Neuropathy Proliferative diabetic retinopathy Thoracic aortic aneurysm without rupture Type 2 diabetes mellitus Vision problems Home Medications aspirin 81 mg PO DAILY 01/21/17 [History Last Taken 10/01/20] pravastatin 80 mg PO DAILY 01/21/17 [History Last Taken 10/01/20] latanoprost 0.005 % eye drops 1 drp EACH EYE QPM 04/05/18 [History Last Taken 09/30/20] cholecalciferol (vitamin D3) 25 mcg (1,000 unit) capsule 1,000 unit PO DAILY 04/26/19 [History Last Taken 10/01/20] furosemide 40 mg tablet 40 mg PO DAILY tab 04/26/19 [History Last Taken 10/01/20] clonidine HCl 0.2 mg PO BID 09/13/20 [History Last Taken 10/01/20] cyanocobalamin (vitamin B-12) 1,000 mcg PO DAILY 09/13/20 [History Last Taken Unknown] gabapentin 300 mg PO TID #90 capsule 09/14/20 [Rx Last Taken 10/01/20 13:00] insulin glargine 20 units SC BID #1 each 09/14/20 [Rx Last Taken 10/01/20 10:00 20 units] losartan 100 mg PO DAILY #0 tablet 09/14/20 [Rx Last Taken 10/01/20] nifedipine 90 mg PO .q hs #0 tablet 09/14/20 [Rx Last Taken 09/30/20] pen needle, diabetic #120 dis.needle 09/14/20 [Rx Last Taken Unknown] diclofenac sodium 1 applic TOPICAL 4X/DAY PRN PRN 10/01/20 [History Last Taken 10/01/20] insulin lispro 6 units SC TIDCM 10/01/20 [History Last Taken 10/01/20 08:00 6 units] timolol maleate 1 drp EACH EYE BID 10/01/20 [History Last Taken 10/01/20] diazepam 5 mg PO UD #15 tablet 10/02/20 [Rx Last Taken Unknown] famotidine 20 mg PO DAILY tablet 10/02/20 [Rx Last Taken Unknown] meclizine 25 mg PO TID PRN #30 tab 08/07/21 [Rx Last Taken Unknown] promethazine 25 mg PO TID PRN #30 tab 08/07/21 [Rx Last Taken Unknown] Allergy/AdvReac Type Severity Reaction Status Date / Time cortisone AdvReac hyperglycem Verified 08/07/21 19:24 ia Family History (Updated 08/07/21 @ 20:[address] Ayala Barron MD) Mother Diabetes Endometriosis Hypertension Heart disease Kidney disease Cancer Breast CA. Father Black lung disease Hx black lung with coal mining as exposure. Surgical History (Updated 08/07/21 @ 20:[address] Ayala Barron MD) H/O eye surgery History of bilateral cataract extraction History of cholecystectomy History of colonoscopy (~2015) History of prostatectomy History of repair of rotator cuff History of vitrectomy Hx of prostatectomy S/P TURP Social History (Updated 08/07/21 @ 20:[address] Ayala Barron MD) household members: spouse Smoking Status: Never smoker alcohol intake: current alcohol intake frequency: a few times a month details: Rare substance use type: does not use caffeine: Yes Type: coffee Number of servings: 1 ROS ROS ED Constitutional Constitutional ED: Denies chills or fever(s) Eyes Eyes: Denies blurry vision or diplopia ENT ENT ED: Denies rhinorrhea or sore throat Cardiovascular Cardiovascular: Denies chest pain or palpitations Respiratory/Chest Respiratory/Chest: Denies cough or dyspnea Gastrointestinal Gastrointestinal: Reports nausea; Denies abdominal pain, diarrhea or vomiting Genitourinary Genitourinary ED: Denies dysuria or hematuria Musculoskeletal Musculoskeletal: Denies arthralgias or myalgias Integumentary Denies rash Neurologic Neurologic: Denies headache(s), paresthesias or weakness EXAM Physical Exam Const Vital Signs: 08/07/21 19:20 08/07/21 19:24 08/07/21 20:22 Temperature 97.8 F Temperature Source Temporal Pulse Rate 82 Respiratory Rate 18 Respiratory Effort Normal Non-Labored Blood Pressure Blood Pressure Mean Pulse Ox 98 Oxygen Delivery Method Room Air Room Air 08/07/21 21:54 08/07/21 22:49 Temperature Temperature Source Pulse Rate 90 89 Respiratory Rate 14 16 Respiratory Effort Blood Pressure 163/77 H 156/68 H Blood Pressure Mean 105 Pulse Ox 98 97 Oxygen Delivery Method Positive well nourished General Appearance ED: NAD; Negative for pallor HEENT Reports moist mucous membranes Negative for trauma Eyes PERRL and EOMs intact bilaterally Eyes Narrative: Nystagmus with modified Melvin-Hallpike maneuver. Reproducible vertiginous dizziness. Neck no lymphadenopathy and supple Resp normal respiratory effort and clear to auscultation bilaterally Cardio regular rate and regular rhythm Neuro oriented x3, CN's II-XII intact bilaterally and no sensory deficits noted Sensorium / Orientation: alert Motor Exam: strength 5/5 throughout Psych mental status grossly normal Skin General Skin Exam: Negative for jaundice or pallor MDM MDM MDM Narrative Medical decision making narrative: Patient seen and evaluated on arrival. He has symptoms of vertigo and hyperglycemia. He was given orange juice prior to arrival but is still having vertiginous symptoms. He is given meclizine and Phenergan and blood work is obtained. CBC is within normal limits. BMP shows creatinine at 2.17 which is near baseline. Potassium slightly low at 3.3. High-sensitivity troponin is 11. EKG is sinus rhythm with a ventricular rate of 82 bpm with first-degree AV block and PACs on my interpretation. Chest x-ray on my interpretation is no acute cardiopulmonary process and the radiologist does agree. On reevaluation at 2300 patient's dizziness has improved significantly. He is currently eating at this point feels comfortable being discharged home. He is given a prescription for meclizine and Phenergan for home. Will monitor his blood sugars. If he has any new or worsening symptoms to return to ED. Impression: 1. Benign positional vertigo. 2. Hypoglycemia resolved Lab Data Attestation: I reviewed the patient's lab results. Labs: Laboratory Results - last 24 hr 08/07/21 08/07/21 19:22 19:22 WBC 7.9 RBC 4.04 L Hgb 12.0 L Hct 37.6 L MCV 93.1 MCH 29.7 MCHC 31.9 L RDW Std Deviation 41.6 RDW Coeff of [place] 12.2 Plt Count 342 MPV 10.8 Immature Gran % (Auto) 0.300 Neut % (Auto) 32.8 L Lymph % (Auto) 53.6 H [place] % (Auto) 11.4 H Eos % (Auto) 1.4 Baso % (Auto) 0.5 Absolute Neuts (auto) 2.6 Absolute Lymphs (auto) 4.23 Nucleated RBC % 0 Sodium 143 Potassium 3.3 L Chloride 110 H Carbon Dioxide 24.0 Anion Gap 9 BUN 34 H Creatinine 2.17 H Estim Creat Clear Calc 30.84 Est GFR (MDRD) Af Amer 38 L Est GFR (MDRD) Non-Af 32 L BUN/Creatinine Ratio 15.7 Glucose 122 H Calcium 8.7 Troponin I High Sens 11 Radiography Diagnostic Testing: Clinical Impression(s) from Imaging Studies Chest X-Ray 08/07/21 20:49 IMPRESSION: No acute findings in the chest. Electronically Signed: Stone Brenner MD at 21:11 EST , Discharge Plan Triage Chief Complaint: Dizziness ED Provider: Edmund Palomino Dx/Rx/DC Orders Instructions: ED BPV Vertigo, ED Diabetic Insulin Reaction Prescriptions: New meclizine 25 mg tablet 25 mg PO TID PRN (Reason: dizziness) Qty: 30 RF: 0 promethazine 25 mg tablet 25 mg PO TID PRN (Reason: nausea and vomiting) Qty: 30 RF: 0 No Action latanoprost 0.005 % drops 1 drp EACH EYE QPM RF: 0 cholecalciferol (vitamin D3) 1,000 unit capsule 1,000 unit PO DAILY RF: 0 furosemide 40 mg tablet 40 mg PO DAILY RF: 0 aspirin 81 MG tablet,delayed release (DR/EC) 81 mg PO DAILY RF: 0 pravastatin 80 MG tablet 80 mg PO DAILY RF: 0 clonidine HCl 0.2 MG tablet 0.2 mg PO BID RF: 0 cyanocobalamin (vitamin B-12) 1,000 MCG capsule 1,000 mcg PO DAILY RF: 0 insulin glargine 100 UNITS/ML insulin pen 20 units SC BID Qty: 1 RF: 0 gabapentin 300 MG capsule 300 mg PO TID Qty: 90 RF: 0 (DME) pen needle, diabetic 1 EACH needle 1 each MC BID Qty: 120 RF: 0 nifedipine 90 mg tablet extended release 90 mg PO .q hs Qty: 0 RF: 0 losartan 100 mg tablet 100 mg PO DAILY Qty: 0 RF: 0 timolol maleate 1 DRP drops 1 drp EACH EYE BID RF: 0 insulin lispro 100 UNIT/ML insulin pen 6 units SC TIDCM RF: 0 diclofenac sodium 100 GM gel 1 applic TOPICAL 4X/DAY PRN PRN (Reason: shoulder pain) RF: 0 famotidine 20 MG tablet 20 mg PO DAILY RF: 0 diazepam 5 MG tablet 5 mg PO UD Qty: 15 RF: 0 Primary Care Provider: Jesse Glover Referrals: Jesse Glover MD [Primary Care Provider] - Disposition Disposition: Home, Self Care
[2021-08-07 20:16] LABS: Absolute Lymphocyte Count 4.23 X10^3/uL (0.83-4.51); Absolute Neutrophil Count 2.6 X10^3/uL (2.0-7.7); Basophil# 0.04 X10^3/uL; Basophil% 0.5 % (0-1); Eosinophil# 0.11 X10^3/uL; Eosinophils% 1.4 % (0-5); Hematocrit 37.6 % (40-54); Lymphocyte # 4.23 X10^3/ul (0.83-4.51); Lymphocyte % 53.6 % (19-41); Mean Corp Hgb Conc 31.9 g/dL (32-36); Mean Corpuscular Hgb 29.7 pg (27.0-32.0); Mean Corpuscular Volume 93.1 fL (80-94); Mean Platelet Vol. 10.8 fl (6.2-12.0); Monocyte% 11.4 % (0-10); NRBC Flagged by Analyzer 0 % (0-5); Neutrophil # 2.59 X10^3/uL (2.7-7.7); Neutrophil % 32.8 % (47-70); Platelet Count 342 K/mm3 (150-450); RBC Distribution Width CV 12.2 % (11.6-14.6); RBC Distribution Width SD 41.6 fl (35.1-43.9); Red Blood Count 4.04 M/mm3 (4.6-6.2); White Blood Count 7.9 K/mm3 (4.4-11.0)
[2021-08-07] MEDS: Meclizine 12.5 MG Tablet PO (20:24)
[2021-08-07] MEDS: proMETHazine 25 MG/ML Syringe 12.5 MG IM (20:24)
[2021-08-07 20:33] LABS: Anion Gap 9 (5-15); BUN 34 mg/dL (7-18); BUN/Creat Ratio 15.7 RATIO (10-20); Calcium,Total 8.7 mg/dL (8.5-10.1); Chloride 110 mmol/L (98-107); Creatinine, Serum 2.17 mg/dL (0.70-1.30); EST Glomerular Filtration Rate 32 mL/min (>60); Est Glom Filt Rate - Afr Amer 38 mL/min (>60); Estimated Creatinine Clearance 30.84 ml/min; Glucose 122 mg/dL (74-106); Potassium 3.3 mmol/L (3.5-5.1); Sodium Level 143 mmol/L (136-145); Troponin-I HS 11 pg/mL (3.0-78.0)
--- NOTE | 2021-08-07 20:49 | RAD_ITS ---
EXAM: XR CHEST, 1 VIEW CLINICAL INDICATION: near syncope TECHNIQUE: Frontal view of the chest. This report was created using [employer] report generation technology. COMPARISON: 10/01/2020. FINDINGS: LUNGS AND PLEURAL SPACES: Unremarkable. No consolidation or edema. No pneumothorax. No effusion. HEART: Unremarkable. Cardiac silhouette not enlarged. MEDIASTINUM: Central airways and mediastinal contour are unremarkable. BONES/JOINTS: Degenerative changes of the spine. Degenerative changes of acromioclavicular joints. SOFT TISSUES: Unremarkable. RAD/Chest 1 View (Portable) IMPRESSION: No acute findings in the chest. Electronically Signed: Stone Brenner MD at 21:11 EST ,
[2021-08-07 21:54] VITALS: BP 163/77; PULSE 90; RESP 14; O2SAT 98
[2021-08-07 22:49] VITALS: BP 156/68; PULSE 89; RESP 16; O2SAT 97
== END 2021-08-07 23:08 | disposition home or self-care (01) ==
PROVIDERS: Emergency Provider Student in an Organized Health Care Education/Training Program; PCP Internal Medicine; Visit Provider Student in an Organized Health Care Education/Training Program
DX: H81.10 Benign paroxysmal vertigo, unspecified ear (principal); E11.22 Type 2 diabetes mellitus with diabetic chronic kidney disease; Z79.4 Long term (current) use of insulin; N18.30 Chronic kidney disease, stage 3 unspecified
CPT/HCPCS: 71045; 80048; 84484; 85025; 93005; 96372; 99285

== ENCOUNTER 2021-09-10 09:15 | Outpatient (RCR) | payer MEDICARE, OTHER, SELFPAY ==
[2021-09-03 09:06] VITALS: BP 156/71; PULSE 87; TEMP 35.8; BMI 26.7
--- NOTE | 2021-09-03 09:56 | PCM.WC.HP ---
History of Present Illness Date of Service: 09/03/21 Chief Complaint: Bilateral [place] Wounds History of Wound: Mr. West is a 76-year-old who presents to the wound center due to non healing bilateral alcala wounds. Sustained an abrasion after he fell off his ladder while taking of wallpaper. Was seen at an urgent care and given triple antibiotic ointment without any significant improvement. History of diabetes which for the most part is well controlled however, he has a prior history of delayed wound healing and so his primary care physician recommended that he come here. He feels well. Denies chills, fever or change in bowel in habit. [facility] Medical History (Updated 09/03/21 @ 16:[address] Jonnie Beavers MD) Arthritis CKD (chronic kidney disease) stage 3, GFR 30-59 ml/min Claudication Essential hypertension Family history of prostate problems Gallbladder anomaly GERD (gastroesophageal reflux disease) Glaucoma Hyperlipidemia Macular edema Neuropathy Proliferative diabetic retinopathy Thoracic aortic aneurysm without rupture Type 2 diabetes mellitus Vision problems Wound of left lower extremity Wound of right lower extremity Home Medications aspirin 81 mg PO DAILY 01/21/17 [History Last Taken 10/01/20] pravastatin 80 mg PO DAILY 01/21/17 [History Last Taken 10/01/20] latanoprost 0.005 % eye drops 1 drp EACH EYE QPM 04/05/18 [History Last Taken 09/30/20] cholecalciferol (vitamin D3) 25 mcg (1,000 unit) capsule 1,000 unit PO DAILY 04/26/19 [History Last Taken 10/01/20] furosemide 40 mg tablet 40 mg PO DAILY tab 04/26/19 [History Last Taken 10/01/20] clonidine HCl 0.2 mg PO BID 09/13/20 [History Last Taken 10/01/20] cyanocobalamin (vitamin B-12) 1,000 mcg PO DAILY 09/13/20 [History Last Taken Unknown] gabapentin 300 mg PO TID #90 capsule 09/14/20 [Rx Last Taken 10/01/20 13:00] insulin glargine 20 units SC BID #1 each 09/14/20 [Rx Last Taken 10/01/20 10:00 20 units] losartan 100 mg PO DAILY #0 tablet 09/14/20 [Rx Last Taken 10/01/20] nifedipine 90 mg PO .q hs #0 tablet 09/14/20 [Rx Last Taken 09/30/20] pen needle, diabetic #120 dis.needle 09/14/20 [Rx Last Taken Unknown] diclofenac sodium 1 applic TOPICAL 4X/DAY PRN PRN 10/01/20 [History Last Taken 10/01/20] insulin lispro 6 units SC TIDCM 10/01/20 [History Last Taken 10/01/20 08:00 6 units] timolol maleate 1 drp EACH EYE BID 10/01/20 [History Last Taken 10/01/20] diazepam 5 mg PO UD #15 tablet 10/02/20 [Rx Last Taken Unknown] famotidine 20 mg PO DAILY tablet 10/02/20 [Rx Last Taken Unknown] meclizine 25 mg PO TID PRN #30 tab 08/07/21 [Rx Last Taken Unknown] promethazine 25 mg PO TID PRN #30 tab 08/07/21 [Rx Last Taken Unknown] Allergy/AdvReac Type Severity Reaction Status Date / Time cortisone AdvReac hyperglycem Verified 08/07/21 19:24 ia Family History (Updated 08/07/21 @ 20:[address] Ayala Barron MD) Mother Diabetes Endometriosis Hypertension Heart disease Kidney disease Cancer Breast CA. Father Black lung disease Hx black lung with coal mining as exposure. Surgical History (Updated 08/07/21 @ 20:[address] Ayala Barron MD) H/O eye surgery History of bilateral cataract extraction History of cholecystectomy History of colonoscopy (~2015) History of prostatectomy History of repair of rotator cuff History of vitrectomy Hx of prostatectomy S/P TURP Social History (Updated 08/07/21 @ 20:[address] Ayala Barron MD) household members: spouse Smoking Status: Never smoker alcohol intake: current alcohol intake frequency: a few times a month details: Rare substance use type: does not use caffeine: Yes Type: coffee Number of servings: 1 ROS Constitutional Constitutional: Denies fatigue, fever(s), frequent falls, headache(s) or increased appetite Eyes Eyes: Denies change in vision, decreased night vision, discongugate gaze, exophthalmos, eye pain, itchy eyes or loss of central vision ENT HEENT: Denies ear discharge, ear pain, epistaxis, facial pain, foreign body in nose, halitosis, mouth pain or nasal obstruction Cardiovascular Cardiovascular: Denies clubbing, cold extremities, cyanosis, dyspnea at rest, dyspnea on exertion, easily tiring during activity or erythema on extremities Respiratory/Chest Respiratory/Chest: Denies difficulty clearing secretions, dry cough, dusky skin, dyspnea, dyspnea on exertion, excessive phlegm production or hemoptysis Gastrointestinal Gastrointestinal: Denies chewing difficulty, coffee ground emesis, constipation, cramping, diarrhea or dry heaves Genitourinary Genitourinary: Denies abdominal discomfort, anuria, burning urination, penile discharge or penile swelling Musculoskeletal Musculoskeletal: Denies back pain, deformity, difficulty walking, extremity pain or joint swelling Integumentary Integumentary: Denies furuncle, hirsutism, jaundice, nail changes or new lesions Neurologic Neurologic: Denies burning sensations, confusion, convulsions, disequilibrium, dizziness or focal weakness Psychiatric Psychiatric: Denies anhedonia, cognitive impairment, confusion, depression, difficulty concentrating or mood swings Endocrine Endocrinology: Denies excessive sweating, fatigue, flushing or heat intolerance Allergic/Immunologic Allergic/Immunologic: Denies tongue swelling, urticaria, eczemia, wheezing or asthma Vital Signs Vital Signs Vital Signs: 09/03/21 09:06 Temperature 96.5 F L Temperature Source Temporal Pulse Rate 87 Blood Pressure 156/71 H Blood Pressure Mean 99 Blood Pressure Source Monitor Weight Weight: 192 lb Body Mass Index (BMI) 26.7 Physical Exam Const alert, oriented x3 and no apparent distress General Appearance: cooperative, comfortable and well kempt HEENT normocephalic and head/scalp atraumatic Eyes PERRL and EOMs intact bilaterally General Eye: normal appearance of both eyes Neck full ROM General: normal visual inspection Resp normal respiratory effort Effort and Inspection: able to speak in complete sentences Cardio regular rate, regular rhythm, S1 normal heart sound and S2 normal heart sound Skin Wounds: wounds noted Neuro oriented x3, CN's II-XII intact bilaterally, moves all extremities and no focal motor deficits Psych mental status grossly normal Appearance: grossly normal Attitude: calm Activity / Motor Behavior: appropriate eye contact Speech: normal speech Debridement Note Debridement Note Wound debrided: Left [place] Type of Debridement: Excisional debridement Anesthesia Used: 4% Lidocaine Solution Depth: Down to and including healthy tissue Percentage of wound debrided: 100 Instrument Used: 3mm curette Tissue Removed: Slough and devitalized tissue Severity: Fat Layer Exposed Amount of bleeding with debridement: Mild Bleeding Controlled with: Pressure Patient tolerated procedure: Patient tolerated procedure well Post-Debridement Measurements and Additional Note: Post-Debridement Measurements/Treatment - Nurse 1 - General Ulcer Assessment Start: 09/03/21 09:06 Freq: Status: Active Protocol: KETTY Activity Type Activity Date Activity User E-Sign Co-Sign Detail Recorded Client Recorded Date Recorded By Document 09/03/21 09:06 HEAVEN [id number] 09/03/21 09:16 HEAVEN 09/03/21 09:06 - Today's Visit Information Type of service Initial Visit Arrival Mode Ambulatory Patient Identification Verified (Name & Yes ) Height and Weight Height 5 ft 11 in Weight 192 lb Weight in Pounds 192.0 lbs Weight Measurement Method Estimated by Patient Body Mass Index (BMI) 26.7 BMI Classification Overweight BSA - Yadiel 2.07 Vital Signs Temperature (97.8 F-99.1 F) 96.5 F L Temperature Source Temporal Pulse Rate (60-100) 87 Pulse Location Monitor Blood Pressure (90/60-120/80) 156/71 H Blood Pressure Mean 99 Source Monitor History Since Last Visit- (Skip if this is Patient's initial visit) Left Footwear Regular Shoe Right Footwear Regular Shoe Pain Scale: 0-10 Numeric Is Patient Pain Free? Yes - Nurse 1 - General Ulcer Measurement Start: 09/03/21 09:06 Freq: Status: Active Protocol: Activity Type Activity Date Activity User E-Sign Co-Sign Detail Recorded Client Recorded Date Recorded By Document 09/03/21 09:06 HEAVEN [id number] 09/03/21 09:16 HEAVEN 09/03/21 09:06 Wound Center Nurse 1 #2 L [place] -Combined with other wound No -Current Size (cm) - Length 1.5 -Current Size (cm) - Width 1 -Current Size (cm) - Depth 0.1 -Total Square Cm 1.5 -Date of Last Picture (Recall this 09/03/21 field) -Photo Taken Yes -Tunneling No -Undermining/Tunneling No -Circular Undermining No -Exudate Amt Small -Exudate Type Serosanguineous -Wound Margin Distinct, Outline Attached -Granulation Amt None Present (0 %) -Granulation Quality N/A -Slough/Fibrin Yes -Necrosis Amt None Present (0 %) -Necrotic Tissue Type Adherent Slough -Structure Exposed N/A -Texture (Melissa-wound Skin Appearance) No Abnormality, Assessed -Moisture (Melissa-wound Skin Appearance) No Abnormality, Assessed -Color (Melissa-wound Skin Appearance) No Abnormality, Assessed -Temperature (Melissa-wound Skin No Abnormality Appearance) (Pt Warm) -Tenderness on Palpation (Melissa-wound No Skin Appearance) -Ulcer Cleansing Rinsed/ Irrigated with Saline -Foul Odor after Cleansing No -Anesthetic Used 5% Lidocaine Gel #1 r [place] -Combined with other wound No -Current Size (cm) - Length 1.3 -Current Size (cm) - Width 1 -Current Size (cm) - Depth 0.1 -Total Square Cm 1.3 -Date of Last Picture (Recall this 09/03/21 field) -Photo Taken Yes -Tunneling No -Undermining/Tunneling No -Circular Undermining No -Change in Wound Grade/Stage No -Exudate Amt Small -Exudate Type Serosanguineous -Wound Margin Distinct, Outline Attached -Granulation Amt None Present (0 %) -Granulation Quality N/A -Slough/Fibrin Yes -Necrosis Amt Small (1-33%) -Necrotic Tissue Type Adherent Slough -Structure Exposed N/A -Texture (Melissa-wound Skin Appearance) No Abnormality, Assessed -Moisture (Melissa-wound Skin Appearance) No Abnormality, Assessed -Color (Melissa-wound Skin Appearance) No Abnormality, Assessed -Temperature (Melissa-wound Skin No Abnormality Appearance) (Pt Warm) -Tenderness on Palpation (Melissa-wound No Skin Appearance) -Ulcer Cleansing Rinsed/ Irrigated with Saline -Foul Odor after Cleansing No -Anesthetic Used 5% Lidocaine Gel Right Calf (cm) 31 Right Ankle (cm) 21 Left Calf (cm) 32 Left Ankle (cm) 21.5 WC - Nurse 2 - General Ulcer CM Notes Start: 09/03/21 09:06 Freq: Status: Active Protocol: Activity Type Activity Date Activity User E-Sign Co-Sign Detail Recorded Client Recorded Date Recorded By Document 09/03/21 09:34 MW [id number] 09/03/21 09:40 MW 09/03/21 09:34 Wound Center Nurse 2 #2 L alcal[place] -Time 09:35 -Correct Patient Yes -Correct Side, Site, Position Yes -Correct Procedure Yes -Procedure Performed Yes -Type of Procedure Debridement -Clinical Debridement Subcutaneous -Tissue Removed Subcutaneous -Post Debridement (cm) - Length 1.4 -Post Debridement (cm) - Width 1.0 -Post Debridement (cm) - Depth 0.1 -Total Square (Post) (cm) 1.40 -Area of Debridement (cm) - Length 1.4 -Area of Debridement (cm) - Width 1.0 -Total Square (Area) (cm) 1.40 -Tunneling No -Undermining/Tunneling No -Circular Undermining No -Wound/Ulcer Outcome Not Healed -Ulcer Cleansing Rinsed/ Irrigated with Saline -Foul Odor after Cleansing No -Bioengineered Tissue No -Bleeding Controlled with Pressure -Offloading No -Treatment Response Procedure Tolerated Well -Debridement - Subq, 1st 20sq cm Yes #1 r [place] -Time 09:35 -Correct Patient Yes -Correct Side, Site, Position Yes -Correct Procedure Yes -Procedure Performed Yes -Type of Procedure Debridement -Clinical Debridement Subcutaneous -Tissue Removed Subcutaneous -Post Debridement (cm) - Length 0.8 -Post Debridement (cm) - Width 1.0 -Post Debridement (cm) - Depth 0.1 -Total Square (Post) (cm) 0.80 -Area of Debridement (cm) - Length 0.8 -Area of Debridement (cm) - Width 1.0 -Total Square (Area) (cm) 0.80 -Tunneling No -Undermining/Tunneling No -Circular Undermining No -Wound/Ulcer Outcome Not Healed -Ulcer Cleansing Rinsed/ Irrigated with Saline -Foul Odor after Cleansing No -Bioengineered Tissue No -Bleeding Controlled with Pressure -Offloading No -Treatment Response Procedure Tolerated Well -Debridement - Subq, 1st 20sq cm No Pain Scale: 0-10 Numeric Is Patient Pain Free? Yes Additional Wound Wound debrided: Right [place] Type of Debridement: Excisional debridement Anesthesia Used: 4% Lidocaine Solution Depth: Down to and including healthy tissue Percentage of wound debrided: 100 Instrument Used: 3mm curette Tissue Removed: Slough and devitalized tissue Severity: Fat Layer Exposed Amount of bleeding with debridement: Mild Bleeding Controlled with: Pressure Patient tolerated procedure: Patient tolerated procedure well Charges/Coding Visit Charges Office Visits / Consults: [id number] OV L3 New Procedures Integumentary [id number]: [id number] Carmencita subq tissue 20 sq cm/< Assessment/Plan Assessment/Plan (1) Wound of left lower extremity: CODE(S): S81.802A - Unspecified open wound, left lower leg, initial encounter QUALIFIERS: Encounter type: initial encounter Qualified Code(s): S81.802A - Unspecified open wound, left lower leg, initial encounter (2) Wound of right lower extremity: CODE(S): S81.801A - Unspecified open wound, right lower leg, initial encounter QUALIFIERS: Encounter type: initial encounter Qualified Code(s): S81.801A - Unspecified open wound, right lower leg, initial encounter (3) Type 2 diabetes mellitus: CODE(S): E11.9 - Type 2 diabetes mellitus without complications QUALIFIERS: Diabetes mellitus health insurance agent insulin use: with health insurance agent use Diabetes mellitus complication status: with other specified complication Qualified Code(s): E11.69 - Type 2 diabetes mellitus with other specified complication; Z79.4 - group home (current) use of insulin PLAN: Bilateral [place] abrasion following fall. Debridement done as documented above, procedure was well-tolerated. Promogran to both wounds, cover with Adaptic. Change daily. Optimal diabetes control. Increase protein intake, vitamin D and zinc discussed. His questions were answered and he was advised to call with any further questions or concerns. Follow-up in a week. This note was generated with [employer] dictation software. It may contain incorrect words, spelling, and punctuation that were not noted in checking the note before signing.
[2021-09-10 09:03] VITALS: BP 150/77; PULSE 81; RESP 16; TEMP 35.9; BMI 26.7
--- NOTE | 2021-09-10 13:03 | PN.PCM_ITS ---
History of Present Illness Date of Service: 09/10/21 Chief Complaint: Bilateral Walter Wounds History of Wound: Mr. West is a 76-year-old who presents to the wound center due to non healing bilateral walter wounds. Sustained an abrasion after he fell off his ladder while taking of wallpaper. Was seen at an urgent care and given triple antibiotic ointment without any significant improvement. History of diabetes which for the most part is well controlled however, he has a prior history of delayed wound healing and so his primary care physician recommended that he come here. He feels well. Denies chills, fever or change in bowel in habit. Progress of Wound: Significant improvement. No new concerns at this time. Has been applying Promogran and Adaptic. Subjective Subjective No new concerns at this time Objective Data Objective Data Vital Signs: Vital Signs Temp Pulse Resp BP 96.7 F L 81 16 150/77 H 09/10/21 09:03 09/10/21 09:03 09/10/21 09:03 09/10/21 09:03 Oxygen Delivery Method Room Air Weight: 192 lb Body Mass Index (BMI) 26.7 Charges/Coding Procedures Integumentary 111xxx-113xx: [id number] Carmencita subq tissue 20 sq cm/< Physical Exam Const alert, oriented x3 and no apparent distress General Appearance: cooperative, comfortable and well kempt HEENT normocephalic and head/scalp atraumatic Eyes PERRL and EOMs intact bilaterally General Eye: normal appearance of both eyes Neck full ROM General: normal visual inspection Resp normal respiratory effort Effort and Inspection: able to speak in complete sentences Cardio regular rate, regular rhythm, S1 normal heart sound and S2 normal heart sound Skin Wounds: wounds noted Neuro oriented x3, CN's II-XII intact bilaterally, moves all extremities and no focal motor deficits Psych mental status grossly normal Appearance: grossly normal Attitude: calm Activity / Motor Behavior: appropriate eye contact Speech: normal speech Debridement Note Debridement Note Wound debrided: Left lower extremity Type of Debridement: Excisional debridement Anesthesia Used: 4% Lidocaine Solution Depth: Down to and including healthy tissue and in the subcutaneous layer Percentage of wound debrided: 100 Instrument Used: 3mm curette Tissue Removed: Devitalized tissue Severity: Fat Layer Exposed Amount of bleeding with debridement: Mild Bleeding Controlled with: Pressure Patient tolerated procedure: Patient tolerated procedure well Post-Debridement Measurements and Additional Note: Post-Debridement Measurements/Treatment WC - Nurse 1 - General Ulcer Assessment Start: 09/03/21 09:06 Freq: Status: Active Protocol: KETTY Activity Type Activity Date Activity User E-Sign Co-Sign Detail Recorded Client Recorded Date Recorded By Document 09/03/21 09:06 CO [id number] 09/03/21 09:16 AK Document 09/10/21 09:03 [facility] [id number] 09/10/21 09:12 BMF 09/03/21 09/10/21 09:06 09:03 WC - Today's Visit Information Type of service Initial Visit Follow-up Visit (Physician/SENIOR SALES OPERATIONS ANALYST ) Arrival Mode Ambulatory Ambulatory Transfer Assistance None Patient Identification Verified (Name & Yes Yes ) Patient Requires Transmission-Based No Precautions Height and Weight Height 5 ft 11 in Weight 192 lb Weight in Pounds 192.0 lbs Weight Measurement Method Estimated by Patient Body Mass Index (BMI) 26.7 26.7 BMI Classification Overweight Overweight BSA - Yadiel 2.07 Vital Signs Temperature (97.8 F-99.1 F) 96.5 F L 96.7 F L Temperature Source Temporal Temporal Pulse Rate (60-100) 87 81 Pulse Location Monitor Monitor Respiratory Rate (12-18) 16 Respiratory rate source Observation Oxygen Delivery Method Room Air Blood Pressure (90/60-120/80) 156/71 H 150/77 H Blood Pressure Mean (mm Hg) 99 101 Source Monitor Monitor Position Sitting Blood Pressure Location Left Arm Have you changed medications since your No last visit? Any new allergies or adverse reactions No Had a fall/change in ADL's that may No increase risk of falls Signs or symptoms of abuse and/or No neglect since last visit Have you been in the hospital since your No last visit? Has dressing in place as prescribed Yes Has compression in place as prescribed No Has offloadiing in place as prescribed N/A Experienced any changes in pain level or No management History Since Last Visit- (Skip if this is Patient's initial visit) Left Footwear Regular Shoe Regular Shoe Right Footwear Regular Shoe Regular Shoe Pain Scale: 0-10 Numeric Is Patient Pain Free? Yes Yes ANA CRISTINA - Nurse 1 - General Ulcer Measurement Start: 09/03/21 09:06 Freq: Status: Active Protocol: Activity Type Activity Date Activity User E-Sign Co-Sign Detail Recorded Client Recorded Date Recorded By Document 09/03/21 09:06 AK [id number] 09/03/21 09:16 AK Document 09/10/21 09:03 [facility] [id number] 09/10/21 09:12 BMF 09/03/21 09/10/21 09:06 09:03 Wound Center Nurse 1 #2 L walter -Combined with other wound No No -Current Size (cm) - Length 1.5 0.1 -Current Size (cm) - Width 1 0.1 -Current Size (cm) - Depth 0.1 0.1 -Total Square Cm 1.5 0.01 -Date of Last Picture (Recall this 09/03/21 field) -Photo Taken Yes No -Epithelialization Medium 34-66% -Tunneling No No -Undermining/Tunneling No No -Circular Undermining No No -Exudate Amt Small None Present -Exudate Type Serosanguineous -Wound Margin Distinct, Flat & Intact Outline Attached -Granulation Amt None Present (0 %) -Granulation Quality N/A -Slough/Fibrin Yes -Necrosis Amt None Present (0 %) -Necrotic Tissue Type Adherent Slough -Structure Exposed N/A -Texture (Melissa-wound Skin Appearance) No Abnormality, Assessed, Assessed Scarring -Moisture (Melissa-wound Skin Appearance) No Abnormality, Assessed Assessed -Color (Melissa-wound Skin Appearance) No Abnormality, Assessed Assessed -Temperature (Melissa-wound Skin No Abnormality No Abnormality Appearance) (Pt Warm) (Pt Warm) -Tenderness on Palpation (Melissa-wound No No Skin Appearance) -Ulcer Cleansing Rinsed/ Rinsed/ Irrigated with Irrigated with Saline Saline -Foul Odor after Cleansing No No -Anesthetic Used 5% Lidocaine 5% Lidocaine Gel Gel #1 r walter -Combined with other wound No No -Current Size (cm) - Length 1.3 0.1 -Current Size (cm) - Width 1 0.1 -Current Size (cm) - Depth 0.1 0.1 -Total Square Cm 1.3 0.01 -Date of Last Picture (Recall this 09/03/21 field) -Photo Taken Yes No -Epithelialization Large 67-100% -Tunneling No -Undermining/Tunneling No -Circular Undermining No -Change in Wound Grade/Stage No -Exudate Amt Small None Present -Exudate Type Serosanguineous -Wound Margin Distinct, Outline Attached -Granulation Amt None Present (0 %) -Granulation Quality N/A -Slough/Fibrin Yes -Necrosis Amt Small (1-33%) -Necrotic Tissue Type Adherent Slough -Structure Exposed N/A -Texture (Melissa-wound Skin Appearance) No Abnormality, Assessed, Assessed Scarring -Moisture (Melissa-wound Skin Appearance) No Abnormality, Assessed Assessed -Color (Melissa-wound Skin Appearance) No Abnormality, Assessed Assessed -Temperature (Melissa-wound Skin No Abnormality No Abnormality Appearance) (Pt Warm) (Pt Warm) -Tenderness on Palpation (Melissa-wound No No Skin Appearance) -Ulcer Cleansing Rinsed/ Rinsed/ Irrigated with Irrigated with Saline Saline -Foul Odor after Cleansing No No -Anesthetic Used 5% Lidocaine 5% Lidocaine Gel Gel Lower Limb Edema Present Yes Right Calf (cm) 31 31.2 Right Ankle (cm) 21 21.5 Left Calf (cm) 32 32.7 Left Ankle (cm) 21.5 21.7 WC - Nurse 2 - General Ulcer CM Notes Start: 09/03/21 09:06 Freq: Status: Active Protocol: Activity Type Activity Date Activity User E-Sign Co-Sign Detail Recorded Client Recorded Date Recorded By Document 09/03/21 09:34 MW [id number] 09/03/21 09:40 MW Document 09/10/21 09:32 MW [id number] 09/10/21 09:35 MW 09/03/21 09/10/21 09:34 09:32 Wound Center Nurse 2 #2 L walter -Time 09:35 09:32 -Correct Patient Yes Yes -Correct Side, Site, Position Yes Yes -Correct Procedure Yes Yes -Procedure Performed Yes Yes -Type of Procedure Debridement Debridement -Clinical Debridement Subcutaneous Subcutaneous -Tissue Removed Subcutaneous Subcutaneous -Post Debridement (cm) - Length 1.4 0.5 -Post Debridement (cm) - Width 1.0 0.2 -Post Debridement (cm) - Depth 0.1 0.1 -Total Square (Post) (cm) 1.40 0.10 -Area of Debridement (cm) - Length 1.4 0.5 -Area of Debridement (cm) - Width 1.0 0.2 -Total Square (Area) (cm) 1.40 0.10 -Tunneling No No -Undermining/Tunneling No No -Circular Undermining No No -Wound/Ulcer Outcome Not Healed Not Healed -Ulcer Cleansing Rinsed/ Rinsed/ Irrigated with Irrigated with Saline Saline -Foul Odor after Cleansing No No -Bioengineered Tissue No No -Bleeding Controlled with Pressure Pressure -Treatment Response Procedure Procedure Tolerated Well Tolerated Well -Offloading No No -Debridement - Subq, 1st 20sq cm Yes Yes #1 r walter -Time 09:35 09:33 -Correct Patient Yes Yes -Correct Side, Site, Position Yes Yes -Correct Procedure Yes Yes -Procedure Performed Yes Yes -Type of Procedure Debridement Debridement -Clinical Debridement Subcutaneous Subcutaneous -Tissue Removed Subcutaneous Subcutaneous -Post Debridement (cm) - Length 0.8 0.1 -Post Debridement (cm) - Width 1.0 0.1 -Post Debridement (cm) - Depth 0.1 0.1 -Total Square (Post) (cm) 0.80 0.01 -Area of Debridement (cm) - Length 0.8 0.1 -Area of Debridement (cm) - Width 1.0 0.1 -Total Square (Area) (cm) 0.80 0.01 -Tunneling No No -Undermining/Tunneling No No -Circular Undermining No No -Wound/Ulcer Outcome Not Healed Not Healed -Ulcer Cleansing Rinsed/ Rinsed/ Irrigated with Irrigated with Saline Saline -Foul Odor after Cleansing No No -Bioengineered Tissue No No -Bleeding Controlled with Pressure Pressure -Treatment Response Procedure Procedure Tolerated Well Tolerated Well -Offloading No No -Debridement - Subq, 1st 20sq cm No No Pain Scale: 0-10 Numeric Is Patient Pain Free? Yes Yes - Nurse 3 - General Ulcer D/C NN Start: 09/03/21 09:06 Freq: Status: Active Protocol: Activity Type Activity Date Activity User E-Sign Co-Sign Detail Recorded Client Recorded Date Recorded By Document 09/03/21 09:59 CO [id number] 09/03/21 10:01 CO Document 09/10/21 09:41 [facility] [id number] 09/10/21 09:42 BM 09/03/21 09/10/21 09:59 09:41 Wound Care Nurse 3 #2 L walter -Ulcer Cleansing Rinsed/ Rinsed/ Irrigated with Irrigated with Saline Saline -Foul Odor after Cleansing No No -Negative Pressure Wound Therapy N/A -Primary Dressing Applied NonAdherent NonAdherent Contact Layer, Contact Layer, Promogran Promogran Noreen Matter Noreen Matter -Primary Dressing Covered/Secured with Dry Gauze & Dry Gauze, Roll Gauze, Secured with Secured with Tape Tape -Promogran Noreen Matter 1 1 #1 r walter -Ulcer Cleansing Rinsed/ Rinsed/ Irrigated with Irrigated with Saline Saline -Foul Odor after Cleansing No No -Negative Pressure Wound Therapy N/A -Primary Dressing Applied NonAdherent NonAdherent Contact Layer, Contact Layer Promogran Noreen Matter -Primary Dressing Covered/Secured with Dry Gauze & Dry Gauze, Roll Gauze, Secured with Secured with Tape Tape -Promogran Noreen Matter 0 BLE -Tubular Bandage Single Layer -Size of Tubigrip Used Size D -Size D ($) 2 Right -Lotion applied to leg before No compression wrap -Tubular Bandage Single Layer -Size of Tubigrip Used Size D -Size D ($) 1 Left -Tubular Bandage Single Layer -Size of Tubigrip Used Size D -Size D ($) 1 Treatment Response Procedure Tolerated Well Pain Scale: 0-10 Numeric Is Patient Pain Free? Yes Yes WC - Visit Discharge Discharge Condition Stable Stable Ambulatory Status Ambulatory Ambulatory Transportation Private Auto Private Auto Medication Reconcilliation completed & Yes provided to patient/care provider Clinical Summary of Care Provided Yes Assessment/Plan Assessment/Plan (1) Wound of left lower extremity: CODE(S): S81.802A - Unspecified open wound, left lower leg, initial encounter QUALIFIERS: Encounter type: initial encounter Qualified Code(s): S81.802A - Unspecified open wound, left lower leg, initial encounter (2) Wound of right lower extremity: CODE(S): S81.801A - Unspecified open wound, right lower leg, initial encounter QUALIFIERS: Encounter type: initial encounter Qualified Code(s): S81.801A - Unspecified open wound, right lower leg, initial encounter (3) Type 2 diabetes mellitus: CODE(S): E11.9 - Type 2 diabetes mellitus without complications QUALIFIERS: Diabetes mellitus terminal superintendent insulin use: with terminal superintendent use Diabetes mellitus complication status: with other specified complication Qualified Code(s): E11.69 - Type 2 diabetes mellitus with other specified complication; Z79.4 - terminal superintendent (current) use of insulin PLAN: Improving. No new concerns at this time. Debridement done as documented above, procedure was well-tolerated. Moistened Promogran to left with Adaptic over top. Only Adaptic to right lower extremity, cover with gauze. Change daily. Optimal diabetes control. Increase protein intake, vitamin D and zinc discussed. His questions were answered and he was advised to call with any further questions or concerns. Follow-up in a week. This note was generated with [employer] dictation software. It may contain incorrect words, spelling, and punctuation that were not noted in checking the note before signing.
== END 2021-09-24 23:59 | disposition home or self-care (01) ==
LOC: WC 09:15
PROVIDERS: PCP Internal Medicine; Visit Provider Internal Medicine
DX: S81.801A Unspecified open wound, right lower leg, initial encounter (principal); E11.51 Type 2 diabetes mellitus with diabetic peripheral angiopathy without gangrene; E11.22 Type 2 diabetes mellitus with diabetic chronic kidney disease; E11.69 Type 2 diabetes mellitus with other specified complication; Z79.4 Long term (current) use of insulin; N18.30 Chronic kidney disease, stage 3 unspecified; S81.802A Unspecified open wound, left lower leg, initial encounter; W11.XXXA Fall on and from ladder, initial encounter; I12.9 Hypertensive chronic kidney disease with stage 1 through stage 4 chronic kidney disease, or unspecified chronic kidney disease; Z79.82 Long term (current) use of aspirin
CPT/HCPCS: 11042; 99203; G0463

== ENCOUNTER 2021-09-17 07:37 | Emergency (ER) | payer MEDICARE, OTHER, SELFPAY ==
[2021-09-17 07:38] VITALS: BP 181/63; PULSE 92; RESP 16; TEMP 36.4; O2SAT 100; BMI 27.0
--- NOTE | 2021-09-17 08:07 | EKG12_ITS ---
Test Reason : PALPITATIONS Blood Pressure : / mmHG Vent. Rate : 088 BPM Atrial Rate : 088 BPM P-R Int : 196 ms QRS Dur : 100 ms QT Int : 364 ms P-R-T Axes : 043 -45 053 degrees QTc Int : 440 ms Normal sinus rhythm Left anterior fascicular block Abnormal ECG Confirmed by MARIE VOSS, JIM ([id number]), editor department DAMIEN WICK ([id number]) on 09/21/2021 10:38:49 AM Referred By: ESA Confirmed By:JIM SALAZAR MD
--- NOTE | 2021-09-17 08:18 | EDS_ITS ---
HPI History of Present Illness Chief Complaint: Palpitations Narrative Narrative: 76-year-old male presenting with an episode of palpitations which happened this morning. He felt that his heart was racing. He checked his blood pressure and felt that it was a little more elevated than usual. Patient has no other symptoms. He denies headache, chest pain, shortness of breath, fever, chills, nausea, vomiting, diarrhea. Patient did note that his blood sugar was slightly elevated but has come back down to 165. He states that he is told as long as his blood sugars stay under 200 he is fine. Patient did not take any insulin this morning. [facility] Medical History Arthritis CKD (chronic kidney disease) stage 3, GFR 30-59 ml/min Claudication Essential hypertension Family history of prostate problems Gallbladder anomaly GERD (gastroesophageal reflux disease) Glaucoma Hyperlipidemia Macular edema Neuropathy Proliferative diabetic retinopathy Thoracic aortic aneurysm without rupture Type 2 diabetes mellitus Vision problems Wound of left lower extremity Wound of right lower extremity Home Medications aspirin 81 mg PO DAILY 01/21/17 [History Last Taken 10/01/20] pravastatin 80 mg PO DAILY 01/21/17 [History Last Taken 10/01/20] latanoprost 0.005 % eye drops 1 drp EACH EYE QPM 04/05/18 [History Last Taken 09/30/20] cholecalciferol (vitamin D3) 25 mcg (1,000 unit) capsule 1,000 unit PO DAILY 04/26/19 [History Last Taken 10/01/20] furosemide 40 mg tablet 40 mg PO DAILY tab 04/26/19 [History Last Taken 10/01/20] clonidine HCl 0.2 mg PO BID 09/13/20 [History Last Taken 10/01/20] cyanocobalamin (vitamin B-12) 1,000 mcg PO DAILY 09/13/20 [History Last Taken Unknown] gabapentin 300 mg PO TID #90 capsule 09/14/20 [Rx Last Taken 10/01/20 13:00] insulin glargine 20 units SC BID #1 each 09/14/20 [Rx Last Taken 10/01/20 10:00 20 units] losartan 100 mg PO DAILY #0 tablet 09/14/20 [Rx Last Taken 10/01/20] nifedipine 90 mg PO .q hs #0 tablet 09/14/20 [Rx Last Taken 09/30/20] pen needle, diabetic #120 dis.needle 09/14/20 [Rx Last Taken Unknown] diclofenac sodium 1 applic TOPICAL 4X/DAY PRN PRN 10/01/20 [History Last Taken 10/01/20] insulin lispro 6 units SC TIDCM 10/01/20 [History Last Taken 10/01/20 08:00 6 units] timolol maleate 1 drp EACH EYE BID 10/01/20 [History Last Taken 10/01/20] diazepam 5 mg PO UD #15 tablet 10/02/20 [Rx Last Taken Unknown] famotidine 20 mg PO DAILY tablet 10/02/20 [Rx Last Taken Unknown] meclizine 25 mg PO TID PRN #30 tab 08/07/21 [Rx Last Taken Unknown] promethazine 25 mg PO TID PRN #30 tab 08/07/21 [Rx Last Taken Unknown] meclizine 25 mg PO TID #30 tab 09/17/21 [Rx Last Taken Unknown] Allergy/AdvReac Type Severity Reaction Status Date / Time cortisone AdvReac hyperglycem Verified 09/17/21 07:41 ia Family History Mother Diabetes Endometriosis Hypertension Heart disease Kidney disease Cancer Breast CA. Father Black lung disease Hx black lung with coal mining as exposure. Surgical History H/O eye surgery History of bilateral cataract extraction History of cholecystectomy History of colonoscopy (~2015) History of prostatectomy History of repair of rotator cuff History of vitrectomy Hx of prostatectomy S/P TURP Social History household members: spouse Smoking Status: Never smoker alcohol intake: current alcohol intake frequency: a few times a month details: Rare substance use type: does not use caffeine: Yes Type: coffee Number of servings: 1 ROS ROS ED Constitutional Constitutional ED: Denies chills or fever(s) Eyes Eyes: Denies blurry vision or diplopia ENT ENT ED: Denies rhinorrhea or sore throat Cardiovascular Cardiovascular: Reports palpitations; Denies chest pain Respiratory/Chest Respiratory/Chest: Denies cough or dyspnea Gastrointestinal Gastrointestinal: Denies abdominal pain, nausea or vomiting Genitourinary Genitourinary ED: Denies dysuria or hematuria Musculoskeletal Musculoskeletal: Denies myalgias Integumentary Denies Abrasions or rash Neurologic Neurologic: Denies headache(s) or paresthesias Psychiatric Psychiatric: Denies anxiety or depression EXAM Physical Exam Const Vital Signs: 09/17/21 07:38 09/17/21 10:53 09/17/21 12:32 Temperature 97.6 F L Temperature Source Temporal Pulse Rate 92 85 77 Respiratory Rate 16 17 Blood Pressure 181/63 H 155/94 H Blood Pressure Mean 102 114 Pulse Ox 100 100 Oxygen Delivery Method Room Air Room Air Positive well nourished General Appearance ED: NAD; Negative for pallor HEENT Reports moist mucous membranes Negative for trauma Eyes PERRL and EOMs intact bilaterally Neck no lymphadenopathy and supple Resp normal respiratory effort and clear to auscultation bilaterally Cardio regular rate and regular rhythm GI normal to inspection, nondistended, normoactive bowel sounds Neuro oriented x3, CN's II-XII intact bilaterally and no sensory deficits noted Sensorium / Orientation: alert Motor Exam: strength 5/5 throughout Psych mental status grossly normal Skin no rashes or lesions noted General Skin Exam: Negative for jaundice or pallor MDM MDM MDM Narrative Medical decision making narrative: Patient presenting with palpitations and these resolved. Discharge regular rate and rhythm. I obtained an EKG interpretation this is a normal sinus rhythm with a ventricular rate of 85/min without sign of ischemic change. CBC and BMP are obtained and his CBC is normal. BMP shows slight hyperkalemia with a potassium of 5.6. There is moderate hemolysis on this lab work however I did give him a liter IV fluids. I think this would be sufficient. Creatinine at baseline. High-sensitivity troponin normal at 6 chest x-ray on my interpretation shows no acute cardiopulmonary process and radiologist agree. Patient feeling improved and has not had any more palpitations. He does request a refill on meclizine for his vertigo although is not having symptoms with this today. Patient is discharged home in stable condition. Impression: 1. Palpitations 2. Hyperkalemia Lab Data Labs: Laboratory Results - last 24 hr 09/17/21 09/17/21 09:15 09:15 WBC 5.5 RBC 4.08 L Hgb 12.0 L Hct 36.4 L MCV 89.2 MCH 29.4 MCHC 33.0 RDW Std Deviation 39.6 RDW Coeff of Tano 12.1 Plt Count 315 MPV 10.5 Immature Gran % (Auto) 0.200 Neut % (Auto) 60.5 Lymph % (Auto) 28.7 Winn % (Auto) 9.5 Eos % (Auto) 0.7 Baso % (Auto) 0.4 Absolute Neuts (auto) 3.3 Absolute Lymphs (auto) 1.58 Nucleated RBC % 0 Sodium 138 Potassium 5.6 H Chloride 110 H Carbon Dioxide 25.0 Anion Gap 3 L BUN 36 H Creatinine 1.97 H Estim Creat Clear Calc 35.04 Est GFR (MDRD) Af Amer 43 L Est GFR (MDRD) Non-Af 35 L BUN/Creatinine Ratio 18.3 Glucose 161 H Calcium 9.2 Troponin I High Sens 6 Radiography Diagnostic Testing: Clinical Impression(s) from Imaging Studies Chest X-Ray 09/17/21 09:35 IMPRESSION: No acute abnormality is seen. Electronically Signed: Maykel Bustos MD at 9:53 EDT , Discharge Plan Triage Chief Complaint: Palpitations ED Provider: Edmund Palomino Dx/Rx/DC Orders Instructions: ED Hyperkalemia, ED Palpitations Prescriptions: New meclizine 25 mg tablet 25 mg PO TID Qty: 30 RF: 0 No Action latanoprost 0.005 % drops 1 drp EACH EYE QPM RF: 0 cholecalciferol (vitamin D3) 1,000 unit capsule 1,000 unit PO DAILY RF: 0 furosemide 40 mg tablet 40 mg PO DAILY RF: 0 aspirin 81 MG tablet,delayed release (DR/EC) 81 mg PO DAILY RF: 0 pravastatin 80 MG tablet 80 mg PO DAILY RF: 0 clonidine HCl 0.2 MG tablet 0.2 mg PO BID RF: 0 cyanocobalamin (vitamin B-12) 1,000 MCG capsule 1,000 mcg PO DAILY RF: 0 insulin glargine 100 UNITS/ML insulin pen 20 units SC BID Qty: 1 RF: 0 gabapentin 300 MG capsule 300 mg PO TID Qty: 90 RF: 0 (DME) pen needle, diabetic 1 EACH needle 1 each MC BID Qty: 120 RF: 0 nifedipine 90 mg tablet extended release 90 mg PO .q hs Qty: 0 RF: 0 losartan 100 mg tablet 100 mg PO DAILY Qty: 0 RF: 0 timolol maleate 1 DRP drops 1 drp EACH EYE BID RF: 0 insulin lispro 100 UNIT/ML insulin pen 6 units SC TIDCM RF: 0 diclofenac sodium 100 GM gel 1 applic TOPICAL 4X/DAY PRN PRN (Reason: shoulder pain) RF: 0 famotidine 20 MG tablet 20 mg PO DAILY RF: 0 diazepam 5 MG tablet 5 mg PO UD Qty: 15 RF: 0 meclizine 25 mg tablet 25 mg PO TID PRN (Reason: dizziness) Qty: 30 RF: 0 promethazine 25 mg tablet 25 mg PO TID PRN (Reason: nausea and vomiting) Qty: 30 RF: 0 Primary Care Provider: Jesse Glover Referrals: Jesse Glover MD [Primary Care Provider] - Disposition Disposition: Home, Self Care Discharge Date/Time: 09/17/21 12:38
[2021-09-17 09:27] LABS: Absolute Lymphocyte Count 1.58 X10^3/uL (0.83-4.51); Absolute Neutrophil Count 3.3 X10^3/uL (2.0-7.7); Basophil# 0.02 X10^3/uL; Basophil% 0.4 % (0-1); Eosinophil# 0.04 X10^3/uL; Eosinophils% 0.7 % (0-5); Hematocrit 36.4 % (40-54); Lymphocyte # 1.58 X10^3/ul (0.83-4.51); Lymphocyte % 28.7 % (19-41); Mean Corpuscular Hgb 29.4 pg (27.0-32.0); Mean Corpuscular Volume 89.2 fL (80-94); Mean Platelet Vol. 10.5 fl (6.2-12.0); Monocyte# 0.52 X10^3/uL; Monocyte% 9.5 % (0-10); NRBC Flagged by Analyzer 0 % (0-5); Neutrophil # 3.33 X10^3/uL (2.7-7.7); Neutrophil % 60.5 % (47-70); Platelet Count 315 K/mm3 (150-450); RBC Distribution Width CV 12.1 % (11.6-14.6); RBC Distribution Width SD 39.6 fl (35.1-43.9); Red Blood Count 4.08 M/mm3 (4.6-6.2); White Blood Count 5.5 K/mm3 (4.4-11.0)
--- NOTE | 2021-09-17 09:35 | RAD_ITS ---
STUDY: X-RAY CHEST REASON FOR EXAM: Male, 76 years old. Chest pain TECHNIQUE: Single AP portable view of the chest. COMPARISON: Comparison is made with prior study dated 08/07/2021. FINDINGS: EKG electrodes are seen. The lungs are clear and expanded. There is no demonstrated pleural abnormality. Normal size heart. Normal mediastinum and amarjit. Normal visualized pulmonary arteries. Normal visualized aortic arch and descending thoracic aorta. There are diffuse degenerative changes of the visualized thoracic spine. There is degenerative osteoarthritis of the bilateral shoulders. There is no demonstrated abnormality of the visualized soft tissue structures of the upper abdomen. RAD/Chest 1 View (Portable) IMPRESSION: No acute abnormality is seen. Electronically Signed: Maykel Bustos MD at 9:53 EDT ,
[2021-09-17 09:55] LABS: Anion Gap 3 (5-15); BUN 36 mg/dL (7-18); BUN/Creat Ratio 18.3 RATIO (10-20); Calcium,Total 9.2 mg/dL (8.5-10.1); Chloride 110 mmol/L (98-107); Creatinine, Serum 1.97 mg/dL (0.70-1.30); EST Glomerular Filtration Rate 35 mL/min (>60); Est Glom Filt Rate - Afr Amer 43 mL/min (>60); Estimated Creatinine Clearance 35.04 ml/min; Glucose 161 mg/dL (74-106); Potassium 5.6 mmol/L (3.5-5.1); Sodium Level 138 mmol/L (136-145); Troponin-I HS 6 pg/mL (3.0-78.0)
[2021-09-17] MEDS: 0.9% Normal Saline 1,000 ML 999 ML IV (10:51)
[2021-09-17 10:53] VITALS: BP 155/94; PULSE 85; RESP 17; O2SAT 100
[2021-09-17 12:32] VITALS: PULSE 77
== END 2021-09-17 12:38 | disposition home or self-care (01) ==
PROVIDERS: Emergency Provider Student in an Organized Health Care Education/Training Program; PCP Internal Medicine; Visit Provider Student in an Organized Health Care Education/Training Program
DX: R00.2 Palpitations (principal); E11.51 Type 2 diabetes mellitus with diabetic peripheral angiopathy without gangrene; E11.40 Type 2 diabetes mellitus with diabetic neuropathy, unspecified; E11.39 Type 2 diabetes mellitus with other diabetic ophthalmic complication; E11.22 Type 2 diabetes mellitus with diabetic chronic kidney disease; I71.2 Thoracic aortic aneurysm, without rupture; Z79.4 Long term (current) use of insulin; N18.30 Chronic kidney disease, stage 3 unspecified; E87.5 Hyperkalemia; I12.9 Hypertensive chronic kidney disease with stage 1 through stage 4 chronic kidney disease, or unspecified chronic kidney disease; K21.9 Gastro-esophageal reflux disease without esophagitis; H42 Glaucoma in diseases classified elsewhere; Z79.82 Long term (current) use of aspirin; Z79.899 Other long term (current) drug therapy
CPT/HCPCS: 71045; 80048; 84484; 85025; 93005; 96360; 96361; 99284; J7030

== ENCOUNTER 2021-10-01 09:45 | Outpatient (RCR) | payer MEDICARE, OTHER, SELFPAY ==
[2021-09-25 00:45] VITALS: BP 150/77; PULSE 81; RESP 16; TEMP 35.9; BMI 26.7
[2021-10-01 09:39] VITALS: RESP 16; TEMP 35.7; BMI 26.7
--- NOTE | 2021-10-01 10:00 | PN.PCM_ITS ---
History of Present Illness Date of Service: 10/01/21 Chief Complaint: Bilateral Walter Wounds History of Wound: Mr. West is a 76-year-old who presents to the wound center due to non healing bilateral walter wounds. Sustained an abrasion after he fell off his ladder while taking of wallpaper. Was seen at an urgent care and given triple antibiotic ointment without any significant improvement. History of diabetes which for the most part is well controlled however, he has a prior history of delayed wound healing and so his primary care physician recommended that he come here. He feels well. Denies chills, fever or change in bowel in habit. Progress of Wound: Healed. No new concerns at this time. Subjective Subjective No new concerns. Objective Data Objective Data Vital Signs: Vital Signs Temp Pulse Resp BP 96.3 F L 81 16 150/77 H 10/01/21 09:39 09/25/21 00:45 10/01/21 09:39 09/25/21 00:45 Weight: 192 lb Body Mass Index (BMI) 26.7 Charges/Coding Visit Charges Office Visits / Consults: 88937 OV L3 Est Physical Exam Const alert, oriented x3 and no apparent distress General Appearance: cooperative, comfortable and well kempt HEENT normocephalic and head/scalp atraumatic Eyes PERRL and EOMs intact bilaterally General Eye: normal appearance of both eyes Neck full ROM General: normal visual inspection Resp normal respiratory effort Effort and Inspection: able to speak in complete sentences Cardio regular rate, regular rhythm, S1 normal heart sound and S2 normal heart sound Skin Wounds: wounds noted Neuro oriented x3, CN's II-XII intact bilaterally, moves all extremities and no focal motor deficits Psych mental status grossly normal Appearance: grossly normal Attitude: calm Activity / Motor Behavior: appropriate eye contact Speech: normal speech Debridement Note Debridement Note No debridement was completed: No debridement was completed today Post-Debridement Measurements and Additional Note: Post-Debridement Measurements/Treatment ANA CRISTINA - Nurse 1 - General Ulcer Assessment Start: 10/01/21 09:38 Freq: Status: Active Protocol: KETTY Activity Type Activity Date Activity User E-Sign Co-Sign Detail Recorded Client Recorded Date Recorded By Document 10/01/21 09:39 AUGUST [id number] 10/01/21 09:46 AUGUST 10/01/21 09:39 - Today's Visit Information Type of service 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 Any new allergies or adverse reactions No Had a fall/change in ADL's that may No increase risk of falls Signs or symptoms of abuse and/or No neglect since last visit Have you been in the hospital since your Yes last visit? Has dressing in place as prescribed Yes Has compression in place as prescribed Yes Has offloadiing in place as prescribed N/A Experienced any changes in pain level or No management Left Footwear Regular Shoe Right Footwear Regular Shoe Pain Scale: 0-10 Numeric Is Patient Pain Free? Yes - Nurse 1 - General Ulcer Measurement Start: 10/01/21 09:38 Freq: Status: Active Protocol: Activity Type Activity Date Activity User E-Sign Co-Sign Detail Recorded Client Recorded Date Recorded By Document 10/01/21 09:39 AUGUST [id number] 10/01/21 09:46 AUGUST 10/01/21 09:39 Wound Center Nurse 1 #2 L walter -Combined with other wound No -Current Size (cm) - Length 0 -Current Size (cm) - Width 0 -Current Size (cm) - Depth 0 -Total Square Cm 0 -Photo Taken Yes -Epithelialization Large 67-100% #1 r walter -Combined with other wound No -Current Size (cm) - Length 0 -Current Size (cm) - Width 0 -Current Size (cm) - Depth 0 -Total Square Cm 0 -Photo Taken Yes -Epithelialization Large 67-100% Lower Limb Edema Present Yes Right Calf (cm) 31.2 Right Ankle (cm) 20.6 Left Calf (cm) 32.0 Left Ankle (cm) 21.0 ANA CRISTINA - Nurse 2 - General Ulcer CM Notes Start: 10/01/21 09:38 Freq: Status: Active Protocol: Activity Type Activity Date Activity User E-Sign Co-Sign Detail Recorded Client Recorded Date Recorded By Document 10/01/21 09:51 MW [id number] 10/01/21 09:53 MW 10/01/21 09:51 Wound Center Nurse 2 #2 L walter -Time 09:51 -Correct Patient Yes -Correct Side, Site, Position Yes -Correct Procedure Yes -Procedure Performed No -Post Debridement (cm) - Length 0 -Post Debridement (cm) - Width 0 -Post Debridement (cm) - Depth 0 -Total Square (Post) (cm) 0 -Wound/Ulcer Outcome Healed- Epithelialized #1 r walter -Time 09:52 -Correct Patient Yes -Correct Side, Site, Position Yes -Correct Procedure Yes -Procedure Performed No -Post Debridement (cm) - Length 0 -Post Debridement (cm) - Width 0 -Post Debridement (cm) - Depth 0 -Total Square (Post) (cm) 0 -Wound/Ulcer Outcome Healed- Epithelialized Pain Scale: 0-10 Numeric Is Patient Pain Free? Yes WC - Nurse 3 - General Ulcer D/C NN Start: 10/01/21 09:38 Freq: Status: Active Protocol: Activity Type Activity Date Activity User E-Sign Co-Sign Detail Recorded Client Recorded Date Recorded By Document 10/01/21 09:53 MW [id number] 10/01/21 09:56 MW 10/01/21 09:53 Wound Care Nurse 3 Treatment Response Procedure Tolerated Well Pain Scale: 0-10 Numeric Is Patient Pain Free? Yes Teaching: Wound Center Discharge Instructions -Person Taught Patient -Teaching Method Discussion -Response to teaching Verbalize understanding WC - Visit Discharge Discharge Condition Stable Ambulatory Status Ambulatory Transportation Private Auto Accompanied by self Medication Reconcilliation completed & No provided to patient/care provider Clinical Summary of Care Provided Yes Notes: healed, discharged from clinic Assessment/Plan Assessment/Plan (1) Wound of left lower extremity: CODE(S): S81.802A - Unspecified open wound, left lower leg, initial encounter QUALIFIERS: Encounter type: initial encounter Qualified Code(s): S81.802A - Unspecified open wound, left lower leg, initial encounter (2) Wound of right lower extremity: CODE(S): S81.801A - Unspecified open wound, right lower leg, initial encounter QUALIFIERS: Encounter type: initial encounter Qualified Code(s): S81.801A - Unspecified open wound, right lower leg, initial encounter (3) Type 2 diabetes mellitus: CODE(S): E11.9 - Type 2 diabetes mellitus without complications QUALIFIERS: Diabetes mellitus longterm insulin use: with longterm use Diabetes mellitus complication status: with other specified complication Qualified Code(s): E11.69 - Type 2 diabetes mellitus with other specified complication; 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 No debridement completed today. He was advised to moisturize his lower extremity adequately and at least daily. Keep area protected. Optimal diabetes control. His questions were answered and he was advised to call with any further questions or concerns. Discharged from the wound center. This note was generated with [employer] dictation software. It may contain incorrect words, spelling, and punctuation that were not noted in checking the note before signing.
== END 2021-10-01 15:12 | disposition home or self-care (01) ==
LOC: WC 09:45
PROVIDERS: PCP Internal Medicine; Visit Provider Internal Medicine
DX: S81.801A Unspecified open wound, right lower leg, initial encounter (principal); E11.69 Type 2 diabetes mellitus with other specified complication; Z79.4 Long term (current) use of insulin; S81.802A Unspecified open wound, left lower leg, initial encounter; W11.XXXA Fall on and from ladder, initial encounter
CPT/HCPCS: 99213; G0463

== ENCOUNTER → 2022-04-10 | Outpatient (CLI) | payer MEDICARE, OTHER, SELFPAY ==
[2022-04-10 13:23] LABS: PSA,Total - Annual Screen 1.57 ng/mL (0.00-4.00)
== END | disposition home or self-care (01) ==
LOC: LAB 10:29
PROVIDERS: PCP Internal Medicine; Referring Provider Registered Nurse; Visit Provider Registered Nurse
DX: Z12.5 Encounter for screening for malignant neoplasm of prostate (principal)
CPT/HCPCS: 36415; 84153; G0103

== ENCOUNTER 2022-04-17 17:00 | Emergency (ER) | payer MEDICARE, OTHER, SELFPAY ==
[2022-04-17 17:01] VITALS: BP 155/7; PULSE 62; RESP 16; TEMP 36.5; O2SAT 98; BMI 27.0
--- NOTE | 2022-04-17 17:34 | EX.ED.DYSGE1 ---
HPI History of Present Illness Chief Complaint: Wound Check Informant: patient and spouse/S.O. Narrative Narrative: Patient had a blister on his right second toe drain with some purulent material. He states that the blister first appeared about a week ago. He is seen in the wound center for healing blister on the great toe right next to it. That is improving. They stated they would just watch the blister on this toe. Today and drained with some odor. He states its not hurting. He has no fevers chills. No nausea vomiting. He uses a continuous glucose monitor and is running from about 80-130. [facility] Medical History Arthritis CKD (chronic kidney disease) stage 3, GFR 30-59 ml/min Claudication Essential hypertension Family history of prostate problems Gallbladder anomaly GERD (gastroesophageal reflux disease) Glaucoma Hyperlipidemia Macular edema Neuropathy Proliferative diabetic retinopathy Thoracic aortic aneurysm without rupture Type 2 diabetes mellitus Vision problems Wound of left lower extremity Wound of right lower extremity Home Medications aspirin 81 mg tablet,delayed release 81 mg PO DAILY heart health 01/21/17 [History Last Taken 10/01/20] pravastatin 80 mg tablet 80 mg PO DAILY cholesterol 01/21/17 [History Last Taken 10/01/20] latanoprost 0.005 % eye drops 1 drp EACH EYE QPM eye drops 04/05/18 [History Last Taken 09/30/20] cholecalciferol (vitamin D3) 25 mcg (1,000 unit) capsule 1,000 unit PO DAILY supplement 04/26/19 [History Last Taken 10/01/20] furosemide 40 mg tablet 40 mg PO DAILY water pill 04/26/19 [History Last Taken 10/01/20] clonidine HCl 0.2 mg tablet 0.2 mg PO BID blood pressure 09/13/20 [History Last Taken 10/01/20] cyanocobalamin (vitamin B-12) 1,000 mcg capsule 1,000 mcg PO DAILY supplement 09/13/20 [History Last Taken Unknown] gabapentin 300 mg capsule 300 mg PO TID #90 CAPSULES 09/14/20 [Rx Last Taken 10/01/20 13:00] insulin glargine 100 unit/mL (3 mL) subcutaneous pen 20 units (0.2 mL) subcut BID #1 ea 09/14/20 [Rx Last Taken 10/01/20 10:00 20 units] losartan 100 mg tablet 100 mg PO DAILY #0 tabs 09/14/20 [Rx Last Taken 10/01/20] nifedipine 90 mg tablet,extended release 90 mg PO .q hs #0 tabs 09/14/20 [Rx Last Taken 09/30/20] pen needle, diabetic 32 gauge x 5/32 ##120 09/14/20 [Rx Last Taken Unknown] diclofenac sodium 1 % topical gel 1 applic topical 4X/DAY PRN PRN shoulder pain 10/01/20 [History Last Taken 10/01/20] insulin lispro 100 unit/mL subcutaneous pen 6 units subcut TIDCM diabetes 10/01/20 [History Last Taken 10/01/20 08:00 6 units] timolol maleate 0.5 % eye drops 1 drp EACH EYE BID glaucoma 10/01/20 [History Last Taken 10/01/20] diazepam 5 mg tablet 5 mg PO UD #15 tabs 10/02/20 [Rx Last Taken Unknown] famotidine 20 mg tablet 20 mg PO DAILY 10/02/20 [Rx Last Taken Unknown] meclizine 25 mg tablet 25 mg PO TID PRN dizziness #30 tabs 08/07/21 [Rx Last Taken Unknown] promethazine 25 mg tablet 25 mg PO TID PRN nausea and vomiting #30 tabs 08/07/21 [Rx Last Taken Unknown] meclizine 25 mg tablet 25 mg PO TID #30 tabs 09/17/21 [Rx Last Taken Unknown] cephalexin 500 mg capsule 500 mg PO Q6 #40 caps 04/17/22 [Rx Last Taken Unknown] sulfamethoxazole 800 mg-trimethoprim 160 mg tablet (Bactrim DS) 1 tab PO BID #20 tabs 04/17/22 [Rx Last Taken Unknown] Allergy/AdvReac Type Severity Reaction Status Date / Time cortisone AdvReac hyperglycem Verified 04/17/22 17:00 ia Family History Mother Diabetes Endometriosis Hypertension Heart disease Kidney disease Cancer Breast CA. Father Black lung disease Hx black lung with coal mining as exposure. Surgical History H/O eye surgery History of bilateral cataract extraction History of cholecystectomy History of colonoscopy (~2016) History of prostatectomy History of repair of rotator cuff History of vitrectomy Hx of prostatectomy S/P TURP Social History household members: spouse Smoking Status: Never smoker alcohol intake: current alcohol intake frequency: a few times a month details: Rare substance use type: does not use caffeine: Yes Type: coffee Number of servings: 1 ROS ROS ED Constitutional Constitutional ED: Denies chills, fever(s) or sweats ENT ENT ED: Denies rhinorrhea or sore throat Cardiovascular Cardiovascular: Denies chest pain or palpitations Respiratory/Chest Respiratory/Chest: Denies cough Gastrointestinal Gastrointestinal: Denies nausea or vomiting Musculoskeletal Musculoskeletal: Denies arthralgias or myalgias Integumentary Reports other Details: See history of present illness. Neurologic Neurologic: Denies paresthesias or weakness Endocrine Endocrinology: Denies polydipsia or polyuria Hematologic/Lymphatic Hematologic/Lymphatic: Denies easy bleeding or easy bruising Allergic/Immunologic Allergic/Immunologic ED: Denies urticaria EXAM Physical Exam Const Vital Signs: 04/17/22 17:01 Temperature 97.7 F L Temperature Source Temporal Pulse Rate 62 Respiratory Rate 16 Blood Pressure 155/7 H Blood Pressure Mean 56 Pulse Ox 98 Oxygen Delivery Method Room Air Positive well developed General Appearance ED: well developed and NAD HEENT Reports moist mucous membranes Neck no JVD Resp normal respiratory effort and clear to auscultation bilaterally Cardio regular rate and regular rhythm GI normal to inspection, nondistended, normoactive bowel sounds and non-tender Back/Spine no CVA tenderness Extremity Extremity Narrative: I unwrapped his great toe. He has some healing open areas on the great toe that do not look infected. They have good granulation tissue. The second toe next to it has a blister that opened up and drained. There is no notable swelling. No erythema. No notable tenderness. There is no streaking up the foot. No swelling or tenderness in the foot. This seems to be isolated to an area about 1 cm round on the distal lateral aspect of the second toe. Neuro Sensorium / Orientation: alert Skin Skin Narrative: See above. MDM MDM MDM Narrative Medical decision making narrative: We discussed options with the patient. This blister is only 1 week old. It broke and drained. He will follow-up with wound care. We discussed the option of doing an x-ray but since this area is superficial and only 1 week old he has extremely low chance of having osteo-. Patient has no systemic symptoms. His blood sugar is well controlled and he watches very closely with his continuous glucose monitor. We will start him on antibiotics. He will call wound center on Tuesday for recheck. His is actually very well versed on cleaning and dressing these wounds. We discussed returning if he gets more drainage, swelling, pain, red streak or swelling of the leg or foot, fevers chills nausea vomiting or rising blood sugars. Discharge Plan Triage Chief Complaint: Wound Check ED Provider: Mychal Huang Dx/Rx/DC Orders Clinical Impression: Infected abrasion of second toe Instructions: Diabetes Foot Infections Tx Prescriptions: New cephalexin [cephalexin] 500 mg capsule 500 mg PO Q6 Qty: 40 0RF sulfamethoxazole-trimethoprim [Bactrim DS] 800-160 mg tablet 1 tab PO BID Qty: 20 0RF No Action latanoprost 0.005 % drops 1 drp EACH EYE QPM cholecalciferol (vitamin D3) 1,000 unit capsule 1,000 unit PO DAILY furosemide 40 mg tablet 40 mg PO DAILY aspirin 81 MG tablet,delayed release (DR/EC) 81 mg PO DAILY Label Comments: HEART [facility]ALTH pravastatin 80 MG tablet 80 mg PO DAILY Label Comments: CHOLOSTEROL clonidine HCl 0.2 MG tablet 0.2 mg PO BID cyanocobalamin (vitamin B-12) 1,000 MCG capsule 1,000 mcg PO DAILY insulin glargine 100 UNITS/ML insulin pen 20 units SC BID Qty: 1 0RF Rx Instructions: 1 box of Lantus pens. gabapentin 300 MG capsule 300 mg PO TID Qty: 90 0RF (DME) pen needle, diabetic 1 EACH needle 1 each MC BID Qty: 120 0RF nifedipine 90 mg tablet extended release 90 mg PO .q hs Qty: 0 0RF Rx Instructions: Take this medicine in the evening. losartan 100 mg tablet 100 mg PO DAILY Qty: 0 0RF Label Comments: BLOOD PRESSURE timolol maleate 1 DRP drops 1 drp EACH EYE BID insulin lispro 100 UNIT/ML insulin pen 6 units SC TIDCM Label Comments: Inject 6 Units subcutaneously three times daily with meals. diclofenac sodium 100 GM gel 1 applic TOPICAL 4X/DAY PRN PRN (Reason: shoulder pain) Label Comments: Apply 2 g to affected area four times daily. famotidine 20 MG tablet 20 mg PO DAILY 0RF diazepam 5 MG tablet 5 mg PO UD Qty: 15 0RF Rx Instructions: 1/2-one three times a day for five days meclizine 25 mg tablet 25 mg PO TID PRN (Reason: dizziness) Qty: 30 0RF promethazine 25 mg tablet 25 mg PO TID PRN (Reason: nausea and vomiting) Qty: 30 0RF meclizine 25 mg tablet 25 mg PO TID Qty: 30 0RF Primary Care Provider: Jesse Glover Referrals: Jesse Glover MD [Primary Care Provider] - As Needed Activity Restrictions/Additional Instructions: Call wound center on Tuesday for follow-up. Disposition Disposition: Home, Self Care
[2022-04-17] MEDS: Smz/Tmp Ds Tablet 1 TABLET PO (17:50)
[2022-04-17] MEDS: Cephalexin 250 MG Capsule 500 MG PO (17:50)
== END 2022-04-17 17:57 | disposition home or self-care (01) ==
PROVIDERS: Emergency Provider Emergency Medicine; PCP Internal Medicine; Visit Provider Emergency Medicine
DX: L02.611 Cutaneous abscess of right foot (principal); E11.22 Type 2 diabetes mellitus with diabetic chronic kidney disease; N18.30 Chronic kidney disease, stage 3 unspecified; I12.9 Hypertensive chronic kidney disease with stage 1 through stage 4 chronic kidney disease, or unspecified chronic kidney disease; M19.90 Unspecified osteoarthritis, unspecified site
CPT/HCPCS: 99283

== ENCOUNTER → 2023-05-05 | Outpatient (CLI) | payer MEDICARE, OTHER, SELFPAY | END | disposition home or self-care (01) | LOC: LABSPEC 16:23 | PROVIDERS: PCP Internal Medicine; Referring Provider Nurse Practitioner; Visit Provider Nurse Practitioner | DX: R31.0 Gross hematuria (principal) | CPT/HCPCS: 87077; 87086; 87088; 87186 ==

== ENCOUNTER → 2023-06-23 | Outpatient (CLI) | payer MEDICARE, OTHER, SELFPAY ==
--- OUTSIDE RECORDS SUMMARY | 2023-06-23 15:29 | XMS RPT_ITS | CCD ---
Author Name Unknown Address [id number] [place] [address] Organization [facility] Care Team Providers Care Research Investigator Name Role Phone FEMI PIZARRO Unavailable Unavailable FEMI PIZARRO Unavailable Unavailable Jesse Glover Unavailable Unavailable FEMI PIZARRO Unavailable Unavailable FEMI PIZARRO Unavailable Unavailable Jesse Glover Unavailable Unavailable Jesse Glover MD Primary Care Provider Fabian Espana MD Unavailable Jesse Glover MD Primary Care Provider Fabian Espana MD Unavailable [phone] Fabian Espana MD Unavailable Jesse Glover MD Primary Care Provider Fabian Espana MD Unavailable JESSE GLOVER Primary Care Unavailable HAYDEE CHRISTINA Referring Unavailable WILMA, JESSE Lara Primary Care Unavailable WILMA, JESSE Lara Primary Care Unavailable BENSON DOWNS Attending Unavailable TATI ANDERSON Referring Unavailable GLOVER, JESSE Lara Primary Care Unavailable GLOVER, JESSE Lara Primary Care Unavailable WILMA, JESSE Lara Primary Care Unavailable LYNN CAMPBELL Referring Unavailable WILMA, JESSE Lara Primary Care Unavailable GLOVER, CASPER Primary Care Unavailable AMERICA JOHNSTON Attending Unavailable WILMA, CASPER Primary Care Unavailable GLOVER, CASPER Referring Unavailable CHANDA PHILLIPS Attending Unavailable WILMA, CASPER Primary Care Unavailable MARSHA ERIC Attending Unavailable WILMA, JESSE Lara Primary Care Unavailable TESTRAKE, MARSHA Referring Unavailable RADHA COHN Attending Unavailable GLOVER, JESSE Lara Primary Care Unavailable LALITRADHA JEAN R Referring Unavailable LALITRADHA R Attending Unavailable GLOVER, CASPER Primary Care Unavailable MADITZ JAZMINE Referring Unavailable LISAHAYLEY GARCIAYAN Attending Unavailable GLOVER, JESSE Lara Primary Care Unavailable GLOVER, JESSE Lara Referring Unavailable GLOVER, CASPER Primary Care Unavailable GLOVER, CASPER Primary Care Unavailable GLOVER, CASPER Primary Care Unavailable HAYDEE CHRISTINA Referring Unavailable GLOVER, CASPER Referring Unavailable GLOVER, CASPER Primary Care Unavailable PRESTONAMERICA SIMS Referring Unavailable AMERICA JOHNSTON Attending Unavailable GLOVER, CASPER Primary Care Unavailable GLOVER, CASPER Primary Care Unavailable TESTRAKE, MARSHA Attending Unavailable GLOVER, JESSE Lara Primary Care Unavailable TESTRAKE, MARSHA Referring Unavailable TESTRAKE, MARSHA Attending Unavailable GLOVER, CASPER Primary Care Unavailable CHANDA PHILLIPS Attending Unavailable GLOVER, CASPER Primary Care Unavailable TESTRAKE, MARSHA Attending Unavailable GLOVER, CASPER Primary Care Unavailable TESTRAKE, MARSHA Referring Unavailable TESTRAKE, MARSHA Attending Unavailable GLOVER, JESSE Lara Primary Care Unavailable HAYDEE CHRISTINA Attending Unavailable GLOVER, CASPER Primary Care Unavailable RADHA COHN Referring Unavailable LALITRADHA JEAN Attending Unavailable GLOVER, JESSE Lara Primary Care Unavailable TESTRAKE, MARSHA Referring Unavailable Allergies Allergy Classification Reported Allergen(s) Allergy Type Date of Onset Reaction(s) Facility (20 sources) cortisone; Translations: [CORTISONE] Drug Allergy 9 Other: See Comments [facility] Repository (20 sources) lisinopril; Translations: [LISINOPRIL] Drug Allergy 9 Intolerance [facility] Repository Medications Current Medications Medication Drug Class(es) Dates Sig (Normalized) Sig (Original) amoxicillin 875 mg / clavulanate 125 mg oral tablet (2 sources) Penicillin-class Antibacterial Start: 06-19-2023 End: 06-26-2023 take 1 tablet by mouth twice daily amoxicillin-clav ulanate potassium (AUGMENTIN) 875-125 mg per tablet Indications: Bacterial sinusitis Take 1 tablet by mouth two times a day for 7 days. 14 tablet 0 06/19/2023 06/26/2023 Active Completed/Discontinued Medications Medication Drug Class(es) Dates Sig (Normalized) Sig (Original) aspirin 81 mg delayed release oral tablet (20 sources) Platelet Aggregation Inhibitor, Nonsteroidal Anti-inflammatory Drug Start: 03-07-2009 aspirin(ECOTRIN LOW STRENGTH 81 MG TAB) Indications: Type II or unspecified type diabetes mellitus without mention of complication, uncontrolled Take by mouth. 0 03/07/2009 Active Problems Active Problems Problem Classification Problem Date Documented Date Episodic/Chronic Abdominal pain (1 source) Flank pain; Translations: [Unspecified abdominal pain] Episodic Acquired foot deformities (4 sources) Talipes planus; Translations: [Flat foot [pes planus] (acquired), right foot] Episodic Cataract (20 sources) Bilateral pseudophakia; Translations: [Presence of intraocular lens] Onset: 9 06-22-2019 Chronic Chronic kidney disease (20 sources) Chronic kidney disease stage 3; Translations: [CKD (chronic kidney disease) stage 3, GFR 30-59 ml/min ([facility])] Onset: 2 Chronic Chronic kidney disease (3 sources) Chronic kidney disease; Translations: [Stage 3b chronic kidney disease (HCC)] Onset: 2 Chronic ulcer of skin (20 sources) Non-pressure chronic ulcer of other part of right foot limited to breakdown of skin; Translations: [Ulcer of other part of foot] Onset: 2 Chronic Crushing injury or internal injury (3 sources) Injury of kidney; Translations: [Unspecified injury of unspecified kidney, initial encounter] Onset: 3 06-09-2023 Episodic Deficiency and other anemia (20 sources) Anemia; Translations: [Anemia in stage 3 chronic kidney disease] 04-18-2019 Chronic Deficiency and other anemia (2 sources) Anemia in chronic kidney disease; Translations: [Anemia of renal disease] Onset: 2 Chronic Diabetes mellitus with complications (20 sources) Type 2 diabetes mellitus; Translations: [Type 2 diabetes mellitus with diabetic polyneuropathy] Onset: 6 Chronic Diabetes mellitus without complication (1 source) Diabetes mellitus without complication; Translations: [Type 2 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 disease, with long-term current use of insulin, unspecified whether stage 3a or 3b CKD (HCC)] Onset: 0 Disorders of lipid metabolism (20 sources) Hyperlipidemia; Translations: [Hyperlipidemia, unspecified] Onset: 9 Chronic Diverticulosis and diverticulitis (1 source) Diverticular disease; Translations: [Diverticulosis of intestine, part unspecified, without perforation or abscess without bleeding] Chronic Essential hypertension (20 sources) Essential hypertension; Translations: [Essential (primary) hypertension] Onset: 1 06-30-2020 Chronic Genitourinary symptoms and ill-defined conditions (6 sources) Proteinuria; Translations: [Other proteinuria] Onset: 2 Episodic Glaucoma (20 sources) Open-angle glaucoma of right eye; Translations: [Primary open-angle glaucoma, right eye, severe stage] Onset: 9 09-19-2018 Chronic Hyperplasia of prostate (20 sources) Benign prostatic hypertrophy with outflow obstruction; Translations: [Benign prostatic hyperplasia with lower urinary tract symptoms] Onset: 9 05-26-2017 Chronic Hypertension with complications and secondary hypertension (20 sources) Renal hypertension; Translations: [Hypertension secondary to other renal disorders] Onset: 8 03-28-2018 Chronic Immunizations and screening for infectious disease (1 source) Needs influenza immunization; Translations: [Encounter for immunization] Episodic Inflammation; infection of eye (except that caused by tuberculosis or sexually transmitteddisease) (20 sources) Bilateral punctate keratitis of eyes; Translations: [Punctate keratitis, bilateral] Onset: 9 06-22-2019 Chronic Mycoses (3 sources) Onychomycosis; Translations: [Tinea unguium] Episodic Osteoarthritis (3 sources) Localized, primary osteoarthritis; Translations: [Primary osteoarthritis, unspecified site] Onset: 8 06-09-2023 Chronic Other and unspecified benign neoplasm (3 sources) History of polyp of colon; Translations: [Personal history of colonic polyps] Episodic Other circulatory disease (2 sources) Abnormal peripheral pulse; Translations: [Other specified symptoms and signs involving the circulatory and respiratory systems] Episodic Other connective tissue disease (3 sources) Pain of toe of right foot; Translations: [Pain in right toe(s)] Episodic Other connective tissue disease (3 sources) Pain of toe of left foot; Translations: [Pain in left toe(s)] Episodic Other diseases of kidney and ureters (20 sources) Hyperparathyroidism due to renal insufficiency; Translations: [Secondary hyperparathyroidism of renal origin] Onset: 9 04-18-2019 Chronic Other diseases of kidney and ureters (2 sources) Secondary hyperparathyroidism of renal origin; Translations: [Secondary renal hyperparathyroidism (HCC)] Onset: 9 Chronic Other eye disorders (20 sources) Vitreous hemorrhage; Translations: [Vitreous hemorrhage, unspecified eye] Onset: 8 04-19-2018 Chronic Other eye disorders (20 sources) Glaucomatous atrophy of optic disc; Translations: [Glaucomatous optic atrophy, bilateral] Onset: 9 06-30-2020 Chronic Other eye disorders (4 sources) Bilateral vitreous floaters; Translations: [Other vitreous opacities, bilateral] Chronic Other gastrointestinal disorders (1 source) Constipation; Translations: [Constipation, unspecified] Episodic Other screening for suspected conditions (not mental disorders or infectious disease) (5 sources) Patient encounter status; Translations: [Encounter for screening for other disorder] Episodic Other skin disorders (4 sources) Foot callus; Translations: [Corns and callosities] Episodic Other upper respiratory infections (1 source) Bacterial sinusitis; Translations: [Chronic sinusitis, unspecified] 06-19-2023 Chronic Other upper respiratory infections (1 source) Acute upper respiratory infection; Translations: [Acute upper respiratory infection, unspecified] 06-19-2023 Episodic Peripheral and visceral atherosclerosis (19 sources) Peripheral vascular disease, unspecified; Translations: [Peripheral vascular disease, unspecified] Onset: 3 11-18-2022 Chronic Retinal detachments; defects; vascular occlusion; and retinopathy (2 sources) Retinal edema; Translations: [Retinal edema] Chronic Syncope (3 sources) Near syncope; Translations: [Syncope and collapse] Onset: 3 06-09-2023 Episodic Unclassified (1 source) Unknown / UNK(Unknown) Onset: 8 Unclassified (1 source) Wound Check Onset: 2 Past or Other Problems Problem Classification Problem Date Documented Date Episodic/Chronic Blindness and vision defects (20 sources) Visual field defect; Translations: [Unspecified visual field defects] Onset: 09-19-2018 09-19-2018 Episodic Conditions associated with dizziness or vertigo (20 sources) Benign paroxysmal positional vertigo; Translations: [Benign paroxysmal vertigo, unspecified ear] Onset: 09-28-2021 Episodic Fluid and electrolyte disorders (20 sources) Hyperkalemia; Translations: [Hyperkalemia] Onset: 04-18-2019 Episodic Malaise and fatigue (20 sources) Asthenia; Translations: [Weakness] Onset: 09-29-2020 09-29-2020 Episodic Other aftercare (3 sources) terminal manager (current) use of insulin; Translations: [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, with long-term current use of insulin (HCC)] Onset: 05-29-2019 Episodic Other and unspecified benign neoplasm (20 sources) Tubular adenoma of colon; Translations: [Benign neoplasm of colon, unspecified] Onset: 08-10-2016 08-10-2016 Episodic Other and unspecified benign neoplasm (1 source) Personal history of colonic polyps; Translations: [Personal history of colonic polyps] Onset: 11-04-2021 Episodic Other injuries and conditions due to external causes (3 sources) Injury of lower extremity; Translations: [Unspecified injury of unspecified lower leg, initial encounter] Onset: 10-01-2021 06-09-2023 Episodic Other nervous system disorders (20 sources) Paresthesia of upper limb; Translations: [Anesthesia of skin] Onset: 01-16-2021 01-16-2021 Episodic Other non-traumatic joint disorders (20 sources) Shoulder pain; Translations: [Pain in right shoulder] Onset: 09-25-2008 09-29-2020 Episodic Other non-traumatic joint disorders (3 sources) Knee joint effusion; Translations: [Effusion, unspecified knee] Onset: 07-13-2017 06-09-2023 Episodic Other non-traumatic joint disorders (3 sources) Pain in unspecified knee; Translations: [Pain in joint, lower leg] Onset: 07-13-2017 06-09-2023 Episodic Other nutritional; endocrine; and metabolic disorders (20 sources) Overweight; Translations: [Overweight] Onset: 07-09-2008 05-26-2017 Episodic Sprains and strains (20 sources) Strain of rotator cuff of shoulder; Translations: [Strain of muscle(s) and tendon(s) of the rotator cuff of right shoulder, initial encounter] Onset: 09-29-2020 09-29-2020 Episodic Superficial injury; contusion (3 sources) Abrasion of toe, infected; Translations: [Abrasion, unspecified lesser toe(s), initial encounter] Onset: 09-18-2021 06-09-2023 Episodic Unclassified (1 source) Recheck Onset: 08-08-2017 Results Test Name Value Interpretation Reference Range Facil ity Vital Signs Date Time Vital Sign Value Performing Clinician Sweta benedict 06-19-2023 08:16-0500 Body temperature 98.49 [degF] Juana Vazquez APRN.[employer] Work Phone: [facility] 06-19-2023 08:16-0500 Body weight 88.45 kg Juana Vazquez APRN.[employer] Work Phone: [facility] 06-19-2023 08:16-0500 Diastolic blood pressure 78 mm[Hg] Juana Vazquez SPECIALTY COOK.[employer] Work Phone: [facility] 06-19-2023 08:16-0500 Heart rate 90 /min Juana Vazquez APRN.[employer] Work Phone: [facility] 06-19-2023 08:16-0500 Respiratory rate 16 /min Juana Vazquez APRN.[employer] Work Phone: [facility] 06-19-2023 08:16-0500 SaO2% (BldA) [Mass fraction] 98 % Juana Vazquez [employer] Work Phone: [facility] 06-19-2023 08:16-0500 Systolic blood pressure 128 mm[Hg] Juana Vazquez APRN.[employer] Work Phone: [facility] 06-09-2023 10:17-0500 Diastolic blood pressure 62 mm[Hg] America Johnston [employer] Work Phone: [facility] 06-09-2023 10:17-0500 Systolic blood pressure 130 mm[Hg] America SinghPreston [employer]TY [employer]OOK.[employer] Work Phone: [facility] 06-09-2023 09:50-0500 Body height 177.8 cm America BianchiPreston [employer] Work Phone: [facility] 06-09-2023 09:50-0500 Body weight 90.45 kg America BianchiPreston [employer] Work Phone: [facility] 06-09-2023 09:50-0500 Heart rate 80 /min America BianchiPreston [employer] Work Phone: [facility] 06-09-2023 09:50-0500 SaO2% (BldA) [Mass fraction] 97 % America BianchiPreston [employer] Work Phone: [facility] 03-31-2023 15:13-0400 Body weight 88.91 kg Haydee Christina [employer] Work Phone: [facility] 03-31-2023 15:13-0400 Diastolic blood pressure 70 mm[Hg] Haydee Ciulli [employer] Work Phone: [facility] 03-31-2023 15:13-0400 Heart rate 64 /min Haydee Keenei [employer] Work Phone: [facility] 03-31-2023 15:13-0400 Systolic blood pressure 143 mm[Hg] Haydee Ciulli [employer] Work Phone: [facility] 02-09-2023 09:41-0400 Body height 177.8 cm Chanda Harleyiec [employer] Work Phone: [facility] 02-09-2023 09:41-0400 Body weight 88.22 kg Chanda Harleyiec [employer] Work Phone: [facility] 02-09-2023 09:41-0400 Diastolic blood pressure 73 mm[Hg] Chanda Kupiec [employer] Work Phone: [facility] 02-09-2023 09:41-0400 Heart rate 67 /min [facility] [employer] Work Phone: [facility] 02-09-2023 09:41-0400 Respiratory rate 16 /min [facility] [employer] Work Phone: [facility] 02-09-2023 09:41-0400 SaO2% (BldA) [Mass fraction] 98 % [facility] [employer] Work Phone: [facility] 02-09-2023 09:41-0400 Systolic blood pressure 146 mm[Hg] [facility] [employer] Work Phone: [facility] 10-27-2022 08:46-0400 Body weight 89.81 kg America Older [employer] Work Phone: [facility] 10-27-2022 08:46-0400 Diastolic blood pressure 64 mm[Hg] America Older [employer]TY [employer] Work Phone: [facility] 10-27-2022 08:46-0400 Heart rate 71 /min America Older [employer] Work Phone: [facility] 10-27-2022 08:46-0400 Respiratory rate 14 /min America Older [employer] Work Phone: [facility] 10-27-2022 08:46-0400 Systolic blood pressure 104 mm[Hg] America Older [employer] Work Phone: [facility] 10-18-2022 10:25-0400 Body weight 89.81 kg Jazmine Maditz DO Work Phone: [facility] 10-18-2022 10:25-0400 Diastolic blood pressure 71 mm[Hg] Jazmine Maditz DO Work Phone: [facility] 10-18-2022 10:25-0400 Heart rate 68 /min Jazmine Maditz DO Work Phone: [facility] 10-18-2022 10:25-0400 Respiratory rate 16 /min Jazmine Maditz DO Work Phone: [facility] 10-18-2022 10:25-0400 Systolic blood pressure 121 mm[Hg] Jazmine Maditz DO Work Phone: [facility] 05-27-2022 16:09-0500 Body temperature 97.5 [degF] [facility] Work Phone: [facility] 05-27-2022 16:09-0500 Diastolic blood pressure 71 mm[Hg] [facility] Work Phone: [facility] 05-27-2022 16:09-0500 Heart rate 61 /min [facility] Work Phone: [facility] 05-27-2022 16:09-0500 SaO2% (BldA) [Mass fraction] 99 % [facility] Work Phone: [facility] 05-27-2022 16:09-0500 Systolic blood pressure 139 mm[Hg] [facility] Work Phone: [facility] 05-13-2022 15:09-0500 Diastolic blood pressure 76 mm[Hg] [facility] Work Phone: [facility] 05-13-2022 15:09-0500 Systolic blood pressure 149 mm[Hg] [facility] Work Phone: [facility] 05-13-2022 15:08-0500 Body temperature 97.59 [degF] [facility] Work Phone: [facility] 05-13-2022 15:08-0500 Heart rate 86 /min [facility] Work Phone: [facility] 05-13-2022 15:08-0500 Respiratory rate 20 /min [facility] Work Phone: [facility] 05-13-2022 15:08-0500 SaO2% (BldA) [Mass fraction] 98 % [facility] Work Phone: [facility] 04-27-2022 09:04-0400 Body temperature 96.8 [degF] Jesse Glover MD Work Phone: [facility] 04-27-2022 09:04-0400 Body weight 91.63 kg Jesse Glover MD Work Phone: [facility] 04-27-2022 09:04-0400 Diastolic blood pressure 68 mm[Hg] Jesse Glover MD Work Phone: [facility] 04-27-2022 09:04-0400 Heart rate 60 /min Jesse Glover MD Work Phone: [facility] 04-27-2022 09:04-0400 Respiratory rate 18 /min Jesse Glover MD Work Phone: [facility] 04-27-2022 09:04-0400 Systolic blood pressure 130 mm[Hg] Jesse Glover MD Work Phone: [facility] 04-26-2022 15:15-0400 Diastolic blood pressure 67 mm[Hg] [facility] Work Phone: [facility] 04-26-2022 15:15-0400 Systolic blood pressure 124 mm[Hg] [facility] Work Phone: [facility] 04-26-2022 14:43-0400 Body temperature 97.81 [degF] [facility] Work Phone: [facility] 04-26-2022 14:43-0400 Heart rate 60 /min [facility] Work Phone: [facility] 04-26-2022 14:43-0400 Respiratory rate 20 /min [facility] Work Phone: [facility] 04-26-2022 14:43-0400 SaO2% (BldA) [Mass fraction] 98 % [facility] Work Phone: [facility] 04-19-2022 15:57-0400 Body temperature 97.3 [degF] [facility] Work Phone: [facility] 04-19-2022 15:57-0400 Diastolic blood pressure 77 mm[Hg] [facility] Work Phone: [facility] 04-19-2022 15:57-0400 Heart rate 55 /min [facility] Work Phone: [facility] 04-19-2022 15:57-0400 SaO2% (BldA) [Mass fraction] 100 % [facility] Work Phone: [facility] 04-19-2022 15:57-0400 Systolic blood pressure 153 mm[Hg] [facility] Work Phone: [facility] 04-09-2022 08:38-0400 Body temperature 97.7 [degF] [facility] Work Phone: [facility] 04-09-2022 08:38-0400 Diastolic blood pressure 72 mm[Hg] [facility] Work Phone: [facility] 04-09-2022 08:38-0400 Heart rate 75 /min [facility] Work Phone: [facility] 04-09-2022 08:38-0400 Respiratory rate 20 /min [facility] Work Phone: [facility] 04-09-2022 08:38-0400 SaO2% (BldA) [Mass fraction] 100 % [facility] Work Phone: [facility] 04-09-2022 08:38-0400 Systolic blood pressure 136 mm[Hg] [facility] Work Phone: [facility] 04-08-2022 11:00-0400 Body weight 88 kg Haydee Christina APRN.[employer] Work Phone: [facility] 04-08-2022 11:00-0400 Diastolic blood pressure 69 mm[Hg] Haydee Christina APRN.[employer] Work Phone: [facility] 04-08-2022 11:00-0400 Heart rate 60 /min Haydee Christina APRN.[employer] Work Phone: [facility] 04-08-2022 11:00-0400 Systolic blood pressure 121 mm[Hg] Haydee Christina MARIA TERESA.[employer] CLE[employer] Work Phone: [facility] 04-07-2022 13:32-0400 Body temperature 97.7 [degF] Henrry Gonzalez MD Work Phone: [facility] 04-07-2022 13:32-0400 Body weight 88.36 kg Henrry Gonzalez MD Work Phone: [facility] 04-07-2022 13:32-0400 Diastolic blood pressure 82 mm[Hg] Henrry Gonzalez MD Work Phone: [facility] 04-07-2022 13:32-0400 Heart rate 66 /min Henrry Gonzalez MD Work Phone: [facility] 04-07-2022 13:32-0400 Respiratory rate 20 /min Henrry Gonzalez MD Work Phone: [facility] 04-07-2022 13:32-0400 SaO2% (BldA) [Mass fraction] 97 % Henrry Gonzalez MD Work Phone: [facility] 04-07-2022 13:32-0400 Systolic blood pressure 128 mm[Hg] Henrry Gonzalez MD Work Phone: [facility] 01-14-2022 17:28-0400 Body temperature 97 [degF] Jesse Glover MD Work Phone: [facility] 01-14-2022 17:28-0400 Body weight 88.91 kg Jesse Glover MD Work Phone: [facility] 01-14-2022 17:28-0400 Diastolic blood pressure 68 mm[Hg] Jesse Glover MD Work Phone: [facility] 01-14-2022 17:28-0400 Heart rate 62 /min Jesse Glover MD Work Phone: [facility] 01-14-2022 17:28-0400 Respiratory rate 16 /min Jesse Glover MD Work Phone: [facility] 01-14-2022 17:28-0400 SaO2% (BldA) [Mass fraction] 98 % Jesse Glover MD Work Phone: [facility] 01-14-2022 17:28-0400 Systolic blood pressure 140 mm[Hg] Jesse Glover MD Work Phone: [facility] 01-01-2022 16:08-0400 Diastolic blood pressure 80 mm[Hg] [facility] [employer] Work Phone: [facility] 01-01-2022 16:08-0400 Systolic blood pressure 140 mm[Hg] [facility] [employer] Work Phone: [facility] 01-01-2022 15:35-0400 Body weight 90.72 kg [facility] [employer] Work Phone: [facility] 01-01-2022 15:35-0400 Heart rate 76 /min [facility] [employer] Work Phone: [facility] 01-01-2022 15:35-0400 SaO2% (BldA) [Mass fraction] 100 % [facility] [employer] Work Phone: [facility] 12-23-2021 08:16-0400 Body weight 88.91 kg America Older [employer]TY COOK.[employer] Work Phone: [facility] 12-23-2021 08:16-0400 Diastolic blood pressure 66 mm[Hg] America Older [employer] Work Phone: [facility] 12-23-2021 08:16-0400 Heart rate 74 /min America Older [employer] Work Phone: [facility] 12-23-2021 08:16-0400 Respiratory rate 12 /min America Older [employer] Work Phone: [facility] 12-23-2021 08:16-0400 Systolic blood pressure 128 mm[Hg] America Older [employer] Work Phone: [facility] 11-18-2021 09:47-0400 Body height 180.3 cm Tati Moraima PA-C Work Phone: [facility] 11-18-2021 09:47-0400 Body temperature 97.3 [degF] Tati Moraima PA-C Work Phone: [facility] 11-18-2021 09:47-0400 Body weight 88.91 kg Tati Trimble PA-C Work Phone: [facility] 11-18-2021 09:47-0400 Heart rate 68 /min Tati Trimble PA-C Work Phone: [facility] 11-18-2021 09:47-0400 SaO2% (BldA) [Mass fraction] 99 % Tati Moraima PA-C Work Phone: [facility] 11-04-2021 08:38-0400 Diastolic blood pressure 56 mm[Hg] Ronal Xiong MD Work Phone: [facility] 11-04-2021 08:38-0400 Heart rate 52 /min Ronal Xiong MD Work Phone: [facility] 11-04-2021 08:38-0400 Respiratory rate 15 /min Ronal Xiong MD Work Phone: [facility] 11-04-2021 08:38-0400 SaO2% (BldA) [Mass fraction] 100 % Ronal Xiong MD Work Phone: [facility] 11-04-2021 08:38-0400 Systolic blood pressure 111 mm[Hg] Ronal Xiong MD Work Phone: [facility] 11-04-2021 07:58-0400 Body temperature 97.2 [degF] Ronal Xiong MD Work Phone: [facility] 10-14-2021 12:36-0400 Body height 179.1 cm Jazmine Krishnan DO Work Phone: [facility] 10-14-2021 12:36-0400 Body weight 90.72 kg Jazmine Maditz DO Work Phone: [facility] 10-14-2021 12:36-0400 Diastolic blood pressure 66 mm[Hg] Jazmine Maditz DO Work Phone: [facility] 10-14-2021 12:36-0400 Heart rate 80 /min Jazmine Maditz DO Work Phone: [facility] 10-14-2021 12:36-0400 Respiratory rate 12 /min Jzamine Maditz DO Work Phone: [facility] 10-14-2021 12:36-0400 Systolic blood pressure 147 mm[Hg] Jazmine Maditz DO Work Phone: [facility] 09-22-2021 09:33-0400 Diastolic blood pressure 76 mm[Hg] [employer] Older [employer] Work Phone: [facility] 09-22-2021 09:33-0400 Systolic blood pressure 134 mm[Hg] [employer]er [employer] Work Phone: [facility] 09-22-2021 08:07-0400 Body weight 86.18 kg [employer]er [employer] Work Phone: [facility] 09-22-2021 08:07-0400 Heart rate 98 /min [employer] Work Phone: [facility] 09-22-2021 08:07-0400 Respiratory rate 14 /min [employer]er [employer] Work Phone: [facility] 09-22-2021 08:07-0400 SaO2% (BldA) [Mass fraction] 97 % [employer] Older [employer] Work Phone: [facility] Encounters Encounter Date Encounter Type Care Provider Facility Start: 06-20-2023 Telephone encounter Yolanda Russell [employer] Work Phone: [facility] Procedures Date Procedure Procedure Detail Performing Clinician Start: 06-19-2023 STREP A MOLECULAR (POC) [facility] Provider Start: 04-13-2023 Visual field xm uni/ bi w/interp extended exam Radha Cohn MD Work Phone: Start: 02-09-2023 Hemoglobin A1c/Hemoglobin.total in Blood [facility] [employer] Work Phone: Start: 10-06-2022 Computerized ophthal bj imaging optic nerve Radha Cohn MD Work Phone: Start: 06-29-2022 Computerized ophthal bj imaging retina Radha Cohn MD Work Phone: Start: 04-27-2022 INFLUENZA SEASONAL QUADRIVALENT HIGH DOSE AGE 65+ Jesse Glover MD Work Phone: Start: 04-21-2022 End: 04-21-2022 Visual field xm uni/bi w/interp extended exam Radha Cohn MD Work Phone: Start: 01-01-2022 Hemoglobin A1c/Hemoglobin.total in Blood [facility] [employer] Work Phone: Start: 12-23-2021 Adult depression scr eening assessment [employer] Older [employer] Work Phone: Start: 11-04-2021 Gluc bld gluc mntr d ev cleared fda spec home use Benson Downs MD Work Phone: Start: 11-04-2021 Colon ca scrn not hi rsk ind Tati Anderson PA-C Work Phone: Start: 11-04-2021 Gluc bld gluc mntr d ev cleared fda spec home use Benson Downs MD Work Phone: Start: 11-04-2021 Colonoscopy Tati morgan PA-C Work Phone: Start: 09-05-2020 Adult depression scr eening assessment [employer] Work Phone: Start: 08-04-2016 Colonoscopy [employer] Work Phone: Plan of Treatment Date Care Activity Detail Author Start: 01-13-2028 Urine microalbumin profile [facility] Start: 11-04-2026 Colonoscopy COLONOSCOPY [facility] Start: 11-04-2026 COLORECTAL CANCER SCREENING COLORECTAL CANCER SCREENING [facility] Start: 11-04-2024 Colonoscopy COLONOSCOPY [facility] Start: 11-04-2024 COLORECTAL CANCER SCREENING COLORECTAL CANCER SCREENING [facility] Start: 06-19-2024 BP Controlled (<130/80) BP Controlle d (<130/80) [facility] Start: 06-09-2024 Annual PCP Team Primary Care Nurse jimbo Disease Visit Annual PCP Team Chronic Disease Visit [facility] Start: 06-09-2024 RSV Vaccine (1 - 1-d ose 60+ series) RSV Vaccine (1 - 1-dose 60+ series) [facility] Immunizations Immunization Date Immunization Notes Care Provider Fa adilson 04-27-2022 influenza, high-dose , quadrivalent vaccine (FLUZONE HIGH DOSE QUADRIVALENT) Jesse Glover MD Work Phone: [facility] 04-27-2022 influenza virus vacc ine, unspecified formulation Haydee Christina [employer] Work Phone: [facility] 09-11-2020 COVID-19 vaccine, fu ll dose (MODERNA) [employer]er [employer] Work Phone: [facility] Work Phone: 08-21-2020 COVID-19 vaccine, fu ll dose (MODERNA) [employer] Work Phone: [facility] Work Phone: 06-04-2019 influenza, high dose seasonal, preservative-free [employer] Work Phone: [facility] 01-12-2018 tetanus toxoid, redu tamara diphtheria toxoid, and acellular pertussis vaccine, adsorbed [employer]er [employer] Work Phone: [facility] Work Phone: 05-26-2017 influenza, high dose seasonal, preservative-free [employer] Work Phone: [facility] 03-16-2016 influenza, high dose seasonal, preservative-free [employer]er [employer] Work Phone: [facility] 06-02-2015 influenza, seasonal, injectable [employer] Work Phone: [facility] Work Phone: 03-10-2015 pneumococcal conjuga te vaccine, 13 valent [employer] Work Phone: [facility] 04-15-2014 influenza, high dose seasonal, preservative-free [employer] Work Phone: [facility] 04-15-2014 zoster vaccine, live America Old er [employer] Work Phone: [facility] 03-20-2014 pneumococcal polysaccharide vaccine, 23 valent [employer]er [employer] Work Phone: [facility] 07-14-2012 influenza virus vacc ine, unspecified formulation [employer]er [employer] Work Phone: [facility] Work Phone: 07-31-2007 pneumococcal polysaccharide vaccine, 23 valent [employer] Work Phone: [facility] Work Phone: 07-31-2007 tetanus and diphther ia toxoids, adsorbed, preservative free, for adult use (2 Lf of tetanus toxoid and 2 Lf of diphtheria toxoid) [employer] Work Phone: [facility] Work Phone: Payers Date Payer Category Payer Unknown HOSPITAL/MEDICAL GENERIC MEDICAL GENERIC [id number] 2009-Present [phone] [address] [place] [address] Indemnity [id number] 2009 Unknown [id number] 2009 Unknown [id number] 2009 Medicare MEDICARE MEDICAR E A AND B [id number] 2009-Present [phone] [place] [address] Medicare [id number] 2009 Medicare MEDICARE MEDICAR E A AND B [id number] 2009-Present [phone] [place] [address] Medicare [id number] 2009 Medicare [id number] Medicare [id number] Social History Date Type Detail Facility Start: 06-02-2017 End: 04-07-2022 Tobacco smoking status NHIS Ex-smoker [facility] History of tobacco use Cigar Smoker [facility] Start: 06-02-2017 End: 04-07-2022 Tobacco use and exposure Smokeless tobacco non-user [facility] Start: 09-22-2021 End: 06-19-2023 Alcohol intake Current drinker of alcohol (finding) [facility] Start: 08-04-2016 History SDOH Alcohol Comment rarely, 2-3 glasses red wine per month [facility] Start: 06-02-2017 End: 04-07-2022 Tobacco Comment quit 40 + years ago [facility] Start: 1945 Sex Assigned At Not on file [facility] Start: 09-12-2021 End: 05-27-2022 Exposure to SARS-CoV-2 (event) Not sure [facility] Start: 09-20-2021 End: 09-30-2021 Exposure to SARS-CoV-2 (event) Unable to assess [facility] History of tobacco use Current smoker [facility] Start: 10-27-2022 End: 02-09-2023 History of Social function [facility] Work Phone: Start: 10-27-2022 End: 02-09-2023 Tobacco use panel [facility] Work Phone: Adult Depression Screening Assessment 0 [facility] Work Phone: Medical Equipment Procedure Code Equipment Code Equipment Origin al Text Equipment Identifier Dates Lens Iol Ultrase rt 24 - [id number] Start: 11-16-2016 Start: 12-25-2020 End: 01-20-2022 Clinical Notes 05-26-2017 to 06-20-2023 Telephone Encounter - Yolanda Russell APRN.KAMILA - 06/20/2023 10:58 AM ESTPatient InstructionsJuana Vazquez APRN.CNP - 06/19/2023 8:25 AM ESTPatient Instructions Note Date & Type Note Facility 06-20-2023 Miscellaneous Notes Your covid test is positive. Follow the CDC guidelines for isolation: 1. Everyone, regardless of vaccination status, should stay home for 5 days. 2. If you have no symptoms or your symptoms are resolving after 5 days, you can leave your house. 3. Continue to wear a mask around others for 5 additional days. If you have a fever, continue to stay home until your fever resolves, even if it is longer than 5 days. Please monitor your symptoms, and for any worrisome symptoms. Continue comfort measures for symptoms as you would for a cold. Any worsening symptoms follow up with PCP or ER. Yolanda Russell APRN.[employer] documented in this encounter [facility] 06-19-2023 Note HNO ID: [id number] Author: Juana Vazquez APRN.KAMILA Service: ? Author Type: Nurse Practitioner Type: Progress Notes Filed: 06/19/2023 8:38 AM Note Text: Subjective Sore Throat Associated symptoms include congestion. Pertinent negatives include no coughing, ear pain or shortness of breath. Esvin West Sr. is a 78 year old male who presents with sore throat, rhinorrhea for the past 4 days. Fever this morning of 101 degrees F. States he had similar symptoms in the past 2 weeks which were starting to resolve, then his got sick and his symptoms started up again. Never had complete resolution of symptoms. Review of Systems Constitutional: Negative for chills, fever and malaise/fatigue. HENT: Positive for congestion and sore throat. Negative for ear pain. Respiratory: Negative for cough and shortness of breath. Cardiovascular: Negative for chest pain. Musculoskeletal: Negative for myalgias. BP 128/78 Pulse 90 Temp 36.9 ?C (98.5 ?F) (Tympanic) Resp 16 Wt 88.5 kg (195 lb) SpO2 98% BMI 27.98 kg/m? PAST MEDICAL HISTORY Diagnosis Date Anemia in stage 3 chronic kidney disease ([facility] ([facility] Background diabetic retinopathy(362.01) 09/18/2008 [facility]. Benign paroxysmal positional vertigo 09/28/2021 Cataract of left eye Chronic kidney disease, unspecified CKD (chronic kidney disease) stage 3, GFR 30-59 ml/min ([facility]) 05/26/2017 Coloboma of iris OD Depressive disorder, not elsewhere classified Erectile dysfunction associated with type 2 diabetes mellitus ([facility]) ([facility]) 07/09/2008 Esophageal reflux Essential hypertension, benign Hyperplasia of prostate Macular edema dme od Other and unspecified hyperlipidemia Other specified anemias Other specified gastritis without mention of hemorrhage 09/18/2008 Personal history of colonic polyps 08/04/2016 Primary open angle glaucoma OU Primary open angle glaucoma (POAG) of both eyes, severe stage 04/07/2021 Proliferative diabetic retinopathy(362.02) Pseudophakia of right eye Right foot ulcer, limited to breakdown of skin ([facility]) 04/20/2022 Shoulder pain 09/25/2008 Right. Tubular adenoma of colon 08/10/2016 Type II or unspecified type diabetes mellitus with ophthalmic manifestations, uncontrolled(250.52) 09/18/2008 iddm Unspecified asthma(493.90) Vitreous hemorrhage ([facility]) 04/19/2018 Added automatically from request for surgery [id number] Vitreous hemorrhage of left eye ([facility]) PAST SURGICAL HISTORY Procedure Laterality Date AVASTIN (BEVACIZUMAB) 1.25MG INTRAVITREAL INJECTION OD (RIGHT EYE) Right 04/19/2018 LAST COLONOSCOPY 11/04/2021 COLONOSCOPY FLX DX W/COLLJ SPEC WHEN PFRMD 05/27/2003 Colonoscopy COLONOSCOPY GEN ANES 08/04/2016 COLONOSCOPY W/BIOPSY SINGLE/MULTIPLE 07/25/2013 Repeat due 2017 COLSC FLX W/RMVL OF TUMOR POLYP LESION SNARE TQ 08/04/2016 Repeat 07/2019 ESOPHAGOGASTRODUODENOSCOPY TRANSORAL DIAGNOSTIC 05/27/2003 EGD EYE SURGERY HX Right 05/02/2018 Pars plana vitrectomy, membrane peel, endolaser, and air fluid exchange right eye. LAPAROSCOPY SURG CHOLECYSTECTOMY 03/2003 Cholecystectomy, lap OPEN REPAIR OF ROTATOR CUFF ACUTE 04/24/2009 Rotator cuff repair, Right PANRETINAL PHOTOCOAGULATION (PRP) OD (RIGHT EYE) Right 08/29/2014 LAST ; PRP (Panretinal Photocoagulation) OD PANRETINAL PHOTOCOAGULATION (PRP) OS (LEFT EYE) Left 07/12/2013 #2 ; PRP (Panretinal Photocoagulation) OS PROSTATECTOMY SUPRAPUBIC SUBTOTAL 06/23/2011 for BPH VITRECTOMY MECHANICAL PARS PLANA Left 11/16/2016 PPV/MP/EL/AFX OS XCAPSL CTRC RMVL INSJ IO LENS PROSTH W/O ECP 02/07/2007 Cataract Removal right XCAPSL CTRC RMVL INSJ IO LENS PROSTH W/O ECP Left 11/16/2016 Cataract Extraction with PC IOL OS ALLERGIES Cortisone and Zestril [Lisinopril] MEDICATIONS latanoprost (XALATAN) 0.005 % ophthalmic solution INSTILL 1 DROP IN BOTH EYES DAILY AT BEDTIME empagliflozin (JARDIANCE) 10 mg tablet Take 1 tablet by mouth daily with breakfast. flash glucose scanning reader (FREESTYLE DIANNE 2 READER) Use continuously to monitor glucose, IDDM, E 11.42 Insulin [place], Disposable, (1ST TIER UNIFINE PENTIPS) 31 gauge x 3/16 Use as directed 4 times a day. Dx: E11.65 insulin glargine (LANTUS SOLOSTAR U-100 INSULIN) 100 unit/mL (3 mL) Inject subcutaneously 23 units daily in the AM insulin lispro (HUMALOG KWIKPEN INSULIN) 100 unit/mL Inject subcutaneously TID meals per SS up to 15 units daily losartan (COZAAR) 50 mg tablet Take 1 tablet by mouth once daily. pravastatin (PRAVACHOL) 80 mg tablet Take 1 tablet by mouth once daily. For cholesterol. furosemide (LASIX) 40 mg tablet Take 1 tablet by mouth once daily. NIFEdipine ER (PROCARDIA XL) 90 mg 24 hr tablet Take 1 tablet by mouth once daily. flash glucose sensor (FREESTYLE DIANNE 2 SENSOR) kit Use one sensor every 14 days, IDDM, E11.42 polyethylene glycol 3350 (MIRALAX) 17 gram/dose powder Take 17 g by mouth every other day. mecliz (more content not included)... [facility] 06-19-2023 Instructions Juana Vazquez APRN.KAMILA - 06/19/2023 8:35 AM EST ASSESSMENT/PLAN: 1. Bacterial sinusitis - ICD9: 473.9, 041.9, ICD10: J32.9, B96.89 (primary diagnosis) - Will begin treatment with as per antibiotic as written, see orders - Supportive care with plenty of fluids, rest, and analgesia prn. - AMOXICILLIN 875 MG-POTASSIUM CLAVULANATE 125 MG TABLET 2. Acute upper respiratory infection, unspecified - ICD9: 465.9, ICD10: J06.9 - Discussed viral etiology and rationale for treatment. - Symptomatic treatment with prn analgesia - Supportive care with fluids and rest - Follow-up with your PCP in 3-5 days if symptoms have not improved or sooner if symptoms worsen - Discussed red flags and need for immediate medical evaluation if any occur. - Discussed supportive care treatment with fluids, rest and analgesia. - Discussed expected course of illness Juana Vazquez APRN.[employer] Treatment for Viral Upper Respiratory Tract Infections Your body will kill off the virus by itself. Additionally, you can prime your body's immune system. This may help you get better more quickly. Drink lots of fluids Make sure you are eating well Get plenty of rest We do not have any medications that kill off these viruses. Antibiotics are used to treat bacterial infections; however, they are not active against viral infections. There are some things that might help you feel better, though. Vaporizers, humidifiers, hot showers, and hot fluids help open respiratory and sinus passages Stanly Nasal [place] may offer relief of nasal and head congestion Nain's Vapor Rub may relieve congestion Tylenol and Advil help control fevers and headaches Salt water gargles help relieve sore throats Chloraceptic spray or throat lozenges may also help relieve sore throat symptoms Occasionally, viral infections turn into something more serious. You should see your doctor or return to the Urgent Care if: You have fevers for longer than five days You have fevers above 102 degrees You are still sick after 10 days You have shortness of breath or wheezing After several days you are getting worse rather than better documented in this encounter [facility] 06-19-2023 History of Presen t illness Narrative Subjective Sore Throat Associated symptoms include congestion. Pertinent negatives include no coughing, ear pain or shortness of breath. Esvin West Sr. is a 78 year old male who presents with sore throat, rhinorrhea for the past 4 days. Fever this morning of 101 degrees F. States he had similar symptoms in the past 2 weeks which were starting to resolve, then his got sick and his symptoms started up again. Never had complete resolution of symptoms. Review of Systems Constitutional: Negative for chills, fever and malaise/fatigue. HENT: Positive for congestion and sore throat. Negative for ear pain. Respiratory: Negative for cough and shortness of breath. Cardiovascular: Negative for chest pain. Musculoskeletal: Negative for myalgias. BP 128/78 Pulse 90 Temp 36.9 C (98.5 F) (Tympanic) Resp 16 Wt 88.5 kg (195 lb) SpO2 98% BMI 27.98 kg/m PAST MEDICAL HISTORY Diagnosis Date Anemia in stage 3 chronic kidney disease (HCC) ([facility]) Background diabetic retinopathy(362.01) 09/18/2008 [facility] eye. Benign paroxysmal positional vertigo 09/28/2021 Cataract of left eye Chronic kidney disease, unspecified CKD (chronic kidney disease) stage 3, GFR 30-59 ml/min ([facility]) 05/26/2017 Coloboma of iris OD Depressive disorder, not elsewhere classified Erectile dysfunction associated with type 2 diabetes mellitus (HCC) ([facility]) 07/09/2008 Esophageal reflux Essential hypertension, benign Hyperplasia of prostate Macular edema dme od Other and unspecified hyperlipidemia Other specified anemias Other specified gastritis without mention of hemorrhage 09/18/2008 Personal history of colonic polyps 08/04/2016 Primary open angle glaucoma OU Primary open angle glaucoma (POAG) of both eyes, severe stage 04/07/2021 Proliferative diabetic retinopathy(362.02) Pseudophakia of right eye Right foot ulcer, limited to breakdown of skin ([facility]) 04/20/2022 Shoulder pain 09/25/2008 Right. Tubular adenoma of colon 08/10/2016 Type II or unspecified type diabetes mellitus with ophthalmic manifestations, uncontrolled(250.52) 09/18/2008 iddm Unspecified asthma(493.90) Vitreous hemorrhage (HCC) 04/19/2018 Added automatically from request for surgery [id number] Vitreous hemorrhage of left eye (HCC) PAST SURGICAL HISTORY Procedure Laterality Date AVASTIN (BEVACIZUMAB) 1.25MG INTRAVITREAL INJECTION OD (RIGHT EYE) Right 04/19/2018 LAST COLONOSCOPY 11/04/2021 COLONOSCOPY FLX DX W/COLLJ SPEC WHEN PFRMD 05/27/2003 Colonoscopy COLONOSCOPY GEN ANES 08/04/2016 COLONOSCOPY W/BIOPSY SINGLE/MULTIPLE 07/25/2013 Repeat due 2017 COLSC FLX W/RMVL OF TUMOR POLYP LESION SNARE TQ 08/04/2016 Repeat 07/2019 ESOPHAGOGASTRODUODENOSCOPY TRANSORAL DIAGNOSTIC 05/27/2003 EGD EYE SURGERY HX Right 05/02/2018 Pars plana vitrectomy, membrane peel, endolaser, and air fluid exchange right eye. LAPAROSCOPY SURG CHOLECYSTECTOMY 03/2003 Cholecystectomy, lap OPEN REPAIR OF ROTATOR CUFF ACUTE 04/24/2009 Rotator cuff repair, Right PANRETINAL PHOTOCOAGULATION (PRP) OD (RIGHT EYE) Right 08/29/2014 LAST ; PRP (Panretinal Photocoagulation) OD PANRETINAL PHOTOCOAGULATION (PRP) OS (LEFT EYE) Left 07/12/2013 #2 ; PRP (Panretinal Photocoagulation) OS PROSTATECTOMY SUPRAPUBIC SUBTOTAL 06/23/2011 for BPH VITRECTOMY MECHANICAL PARS PLANA Left 11/16/2016 PPV/MP/EL/AFX OS XCAPSL CTRC RMVL INSJ IO LENS PROSTH W/O ECP 02/07/2007 Cataract Removal right XCAPSL CTRC RMVL INSJ IO LENS PROSTH W/O ECP Left 11/16/2016 Cataract Extraction with PC IOL OS ALLERGIES Cortisone and Zestril [Lisinopril] MEDICATIONS latanoprost (XALATAN) 0.005 % ophthalmic solution INSTILL 1 DROP IN BOTH EYES DAILY AT BEDTIME empagliflozin (JARDIANCE) 10 mg tablet Take 1 tablet by mouth daily with breakfast. flash glucose scanning reader ([employer] DIANNE 2 READER) Use continuously to monitor glucose, IDDM, E 11.42 Insulin [place], Disposable, (1ST TIER UNIFINE PENTIPS) 31 gauge x 3/16 Use as directed 4 times a day. Dx: E11.65 insulin glargine (LANTUS SOLOSTAR U-100 INSULIN) 100 unit/mL (3 mL) Inject subcutaneously 23 units daily in the AM insulin lispro (HUMALOG KWIKPEN INSULIN) 100 unit/mL Inject subcutaneously TID meals per SS up to 15 units daily losartan (COZAAR) 50 mg tablet Take 1 tablet by mouth once daily. pravastatin (PRAVACHOL) 80 mg tablet Take 1 tablet by mouth once daily. For cholesterol. furosemide (LASIX) 40 mg tablet Take 1 tablet by mouth once daily. NIFEdipine ER (PROCARDIA XL) 90 mg 24 hr tablet Take 1 tablet by mouth once daily. flash glucose sensor (FREESTYLE DIANNE 2 SENSOR) kit Use one sensor every 14 days, IDDM, E11.42 polyethylene glycol 3350 (MIRALAX) 17 gram/dose powder Take 17 g by mouth every other day. meclizine (ANTIVERT) 25 mg tab Take 1 tablet by mouth three times daily as needed. Lancets lancets Test blood sugar(s) 3 times daily. Dx: Type 2 DM - Uncontrolled E11.65 Insulin: Yes blood sugar diagnostic (BLOOD GLUCOSE TEST) test strip Test blood sugar(s) 3 times daily. Dx: Type 2 DM - Uncontrolled E11.65 Insulin: Yes cholecalciferol (VITAMIN D) 1,000 unit tab tablet Take 1 tablet by mouth once daily. cyanocobalamin (VITAMIN B-12) 1,000 mcg tab Take 1 tablet by mouth once daily. aspirin(ECOTRIN LOW STRENGTH 81 MG TAB) Take by mouth. gabapentin (NEURONTIN) 300 mg capsule Take 1 capsule by mouth three times daily for 180 days. FAMILY HISTORY Problem Relation Age of Onset Breast Cancer Mother at age 55 COPD Father Black lung Breast Cancer Sister at age 54 Diabetes Brother No Ocular Disease No Family History nothing known of Social History Tobacco Use Smoking status: Former Types: Cigars Smokeless tobacco: Never Tobacco comments: quit 40 + years ago Vaping Use Vaping Use: Never used Substance Use Topics Alcohol use: Yes Comment: rarely, 2-3 glasses red wine per month Drug use: No Objective Physical Exam Vitals and nursing note reviewed. Constitutional: General: He is not in acute distress. Appearance: Normal appearance. He is not ill-appearing. HENT: Right Ear: Tympanic membrane, ear canal and external ear normal. Left Ear: Tympanic membrane, ear canal and external ear normal. Nose: Mucosal edema, congestion and rhinorrhea present. Mouth/Throat: Mouth: Mucous membranes are moist. Pharynx: Oropharynx is clear. Uvula midline. No oropharyngeal exudate or posterior oropharyngeal erythema. Cardiovascular: Rate and Rhythm: Normal rate and regular rhythm. Heart sounds: Normal heart sounds. Pulmonary: Effort: Pulmonary effort is normal. No respiratory distress. Breath sounds: Normal breath sounds. No wheezing or rales. Musculoskeletal: Cervical back: Neck supple. Lymphadenopathy: Cervical: No cervical adenopathy. Skin: General: Skin is warm and dry. Findings: No erythema or rash. Neurological: Mental Status: He is alert. ASSESSMENT/PLAN: 1. Bacterial sinusitis - ICD9: 473.9, 041.9, ICD10: J32.9, B96.89 (primary diagnosis) - Will begin treatment with as per antibiotic as written, see orders - Supportive care with plenty of fluids, rest, and analgesia prn. - AMOXICILLIN 875 MG-POTASSIUM CLAVULANATE 125 MG TABLET 2. Acute upper respiratory infection, unspecified - ICD9: 465.9, ICD10: J06.9 - Discussed viral etiology and rationale for treatment. - Symptomatic treatment with prn analgesia - Supportive care with fluids and rest - Follow-up with your PCP in 3-5 days if symptoms have not improved or sooner if symptoms worsen - Discussed red flags and need for immediate medical evaluation if any occur. - Discussed supportive care treatment with fluids, rest and analgesia. - Discussed expected course of illness Juana Vazquez APRN.SHRIMP CLEANER documented in this encounter [facility] 06-09-2023 Note HNO ID: [id number] Author: America Johnston APRN.KAMILA Service: ? Author Type: Nurse Practitioner Type: Progress Notes Filed: 06/09/2023 10:27 AM Note Text: Esvin West is a 78 year old male here for a Medicare wellness visit. Medicare Health Risk Assessment General Health Very good Exercise: Minutes/Day 30 minutes Exercise: Days/Week 4 Alcohol: Daily Use No Alcohol: Drinks/Day 2-3 glasses per month Alcohol: 6 or more drinks No Feel off balance No Concerns: Teeth/Dentures No Concerns: Sexual function No Troubled by feelings No Frequency: Eating healthy diet Yes ADLs requiring help No Safety precautions in home/vehicle Yes Smoke, vape, chews tobacco No Difficulty hearing No Difficulty seeing No Current Providers Specialists: I have reviewed specialist-related care of the patient in the medical record. Current care team: Patient Care Team: Jesse Glover MD as PCP - General Chanda Phillips APRN- endocrinology Jazmine Swenson DO- nephrology Radha Cohn MD-ophthalmology Marsha Eric MD-podiatry Medical/Family history review Reviewed and updated problem list, medical/surgical/family/social history, medications, and allergies. Opioid use review Opioid Medications (last 90 days) Some values may be hidden. Unless noted otherwise, only the newest values recorded on each date are displayed. Opioid Medications No data to display. Depression screening Depression Screening PHQ-2 Score 04/27/2022 0 Depression screening tool completed and reviewed. Based on score and interview, patient is not at risk for depression. Screening tool discussed with patient, and I recommended no further intervention at this time. Cognitive screening Mini Cog Score: 4 Cognitive screening reviewed and no further action needed (score 3-5) Functional Observation Was the patient's timed Up AND Go test unsteady or ? 12 seconds? No Advance Care Planning Patient did not wish or was not able to name a surrogate decision maker or provide an advance care plan Measurements BP 142/54 Pulse 80 Ht 5' 10 (1.78m) Wt 199 lb 6.4 oz (90.4kg) SpO2 97% BMI 28.61 kg/(m2). Additional screenings: No results found. Assessment/Plan Medicare annual wellness visit, subsequent (Z00.00) - Counseled on healthy diet and regular exercise - Fall avoidance information provided - Personalized prevention plan provided America Johnston APRN.CNP [facility] 06-09-2023 Instructions America Johnston APRN.CNP - 06/09/2023 10:01 AM EST Screening schedule The following prevention plan is recommended: RSV Vaccine(1 - 1-dose 60+ series) Never done WHAT YOU CAN DO TO PREVENT FALLS Many falls can be prevented. By making some changes, you can lower your chances of falling. Four things YOU can do to prevent falls for you* and your caregiver 1. Begin a regular exercise program Exercise is one of the most important ways to lower your chances of falling. It makes you stronger and helps you feel better. Exercises that improve balance and coordination (like Bola Chi) are the most helpful. Lack of exercise leads to weakness and increases your chances of falling. Ask your doctor or health care provider about the best type of exercise program for you. 2. Have your health care provider review your medicines Have your doctor or pharmacist review all the medicines you take, even [id number] medicines. As you get older, the way medicines work in your body can change. Some medicines, or combinations of medicines, can make you sleepy or dizzy and can cause you to fall. 3. Have your vision checked Have your eyes checked by an eye doctor at least once a year. You may be wearing the wrong glasses or have a condition like glaucoma or cataracts that limits your vision. Poor vision can increase your chances of falling. 4. Make your home safer About half of all falls happen at home. To make your home safer: Remove things you can trip over (like papers, books, clothes, and shoes) from stairs and places where you walk. Remove small throw rugs or use double-sided tape to keep the rugs from slipping. Keep items you use often in cabinets you can reach easily without using a step stool. Have grab bars put in next to your toilet and in the tub or shower. Use non-slip mats in the bathtub and on shower floors. Improve the lighting in your home. As you get older, you need brighter lights to see well. Hang light-weight curtains or shades to reduce glare. Have handrails and lights put in on all staircases. Wear shoes both inside and outside the house. Avoid going barefoot or wearing slippers. For more information, contact: Centers for Disease Control and Prevention www.cdc.gov/injury * This information may not apply if you have certain medical conditions. documented in this encounter [facility] 06-09-2023 History of Presen t illness Narrative Esvin Brett Watson is a 78 year old male here for a Medicare wellness visit. Medicare Health Risk Assessment General Health Very good Exercise: Minutes/Day 30 minutes Exercise: Days/Week 4 Alcohol: Daily Use No Alcohol: Drinks/Day 2-3 glasses per month Alcohol: 6 or more drinks No Feel off balance No Concerns: Teeth/Dentures No Concerns: Sexual function No Troubled by feelings No Frequency: Eating healthy diet Yes ADLs requiring help No Safety precautions in home/vehicle Yes Smoke, vape, chews tobacco No Difficulty hearing No Difficulty seeing No Current Providers Specialists: I have reviewed specialist-related care of the patient in the medical record. Current care team: Patient Care Team: Jesse Glover MD as PCP - General Chanda Phillips APRN- endocrinology Jazmine Swenson DO- nephrology Radha Cohn MD-ophthalmology Marsha Eric MD-podiatry Medical/Family history review Reviewed and updated problem list, medical/surgical/family/social history, medications, and allergies. Opioid use review Opioid Medications (last 90 days) Some values may be hidden. Unless noted otherwise, only the newest values recorded on each date are displayed. Opioid Medications No data to display. Depression screening Depression Screening PHQ-2 Score 04/27/2022 0 Depression screening tool completed and reviewed. Based on score and interview, patient is not at risk for depression. Screening tool discussed with patient, and I recommended no further intervention at this time. Cognitive screening Mini Cog Score: 4 Cognitive screening reviewed and no further action needed (score 3-5) Functional Observation Was the patient's timed Up & Go test unsteady or ? 12 seconds? No Advance Care Planning Patient did not wish or was not able to name a surrogate decision maker or provide an advance care plan Measurements BP 142/54 Pulse 80 Ht 5' 10 (1.78m) Wt 199 lb 6.4 oz (90.4kg) SpO2 97% BMI 28.61 kg/(m^2). Additional screenings: No results found. Assessment/Plan Medicare annual wellness visit, subsequent (Z00.00) - Counseled on healthy diet and regular exercise - Fall avoidance information provided - Personalized prevention plan provided America Johnston APRN.CNP documented in this encounter [facility] 04-26-2023 Miscellaneous Notes duplicate request PT needs the 7 day sent to [facility] and the 90 day supply sent to mail delivery he only has 2 left please assist. Patient has been identified by name and date of : Yes Requested Prescriptions Pending Prescriptions Disp Refills empagliflozin (JARDIANCE) 10 mg tablet 7 tablet 0 Sig: Take 1 tablet by mouth daily with breakfast for 7 days. RX INSTRUCTIONS: Patient aware RX will be sent to pharmacy. No need to notify patient. Brina Montero documented in this encounter [facility] documented in this encounter [facility]10-23-2023 NoteHNO ID: [id number] Author: Jovanna Milian OA Service: ? Author Type: Public Housing Interviewer Type: Progress Notes Filed: 04/18/2023 3:57 PM Note Text: [facility] History of Present illness Narrative* Jovanna Milian OA - 04/18/2023 3:57 PM EDT Visual Field Testing [facility] NoteHNO ID: [id number] Author: Radha Cohn MD Service: ? Author Type: Physician Type: Progress Notes Filed: 04/13/2023 9:11 AM Note Text: Assessment and Plan 1. Primary open angle glaucoma (POAG) of both eyes, severe stage -stable intraocular pressure, as well as orta visual field (HVF) and OCT nerve -component of nerve fiber layer thinning and orta visual field (HVF) changes may be secondary to Diabetes mellitus and prior extensive Panretinal laser photocoagulation (PRP) 2. 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 Return to clinic as soon as possible if increased floaters, flashes, or shadows. -Continue Cosopt twice daily and latanoprost daily in both eyes -continue follow-up Dr. Finnegan as scheduled for retina - has a significant floater which has been stable -Will bring earlier for orta visual field (HVF) repeat -Me in 6 months with dilated fundus exam and OCT nerve both eyes / sooner as needed I have confirmed and edited as necessary the relevant ophthalmic history, ROS, and the neuro exam findings as obtained by others. I have seen and examined Esvin West Sr.. I have discussed the case and the management of this patient's care with the Resident/Fellow, if applicable. I also have reviewed and agree with the assessment and plan as stated above and agree with all of its relevant components. Radha Cohn, [facility]10-18-2023 Miscellaneous Notes* Telephone Encounter - Tati Hdz MA - 04/13/2023 10:41 AM EDT Script pended for the 7 day supply of Jardiance. * Telephone Encounter - Flavia Maguire - 04/13/2023 10:18 AM EDT Patient calling with regard to refill for empagliflozin (JARDIANCE) 10 mg tablet [facility] needs 7 days to get the medication to the patient. He will run out before the mail order tablets arrive. He asks for a short-term supply - 5 or 10 tablets - to be sent to his local pharmacy, so that he doesn't have to worry about being without. [facility]erred [facility] [place]. Pleasecall patient when completed. [facility] Instructions* Patient Instructions* Radha Cohn MD - 04/13/2023 9:11 AM EDT Images from the original note were not included. [facility] History of Present illness Narrative* Radha Cohn MD - 04/13/2023 9:03 AM EDT Assessment and Plan 1. Primary open angle glaucoma (POAG) of both eyes, severe stage -stable intraocular pressure, as well as orta visual field (HVF) and OCT nerve -component of nerve fiber layer thinning and orta visual field (HVF) changes may be secondary to Diabetes mellitus and prior extensive Panretinal laser photocoagulation (PRP) 2. 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 Return to clinic as soon as possible if increased floaters, flashes, or shadows. -Continue Cosopt twice daily and latanoprost daily in both eyes -continue follow-up Dr. Finnegan as scheduled for retina - has a significant floater which has been stable -Will bring earlier for orta visual field (HVF) repeat -Me in 6 months with dilated fundus exam and OCT nerve both eyes / sooner as needed I have confirmed and edited as necessary the relevant ophthalmic history, ROS, and the neuro exam findings as obtained by others. I have seen and examined Esvin Wets Sr.. I have discussed the case and the management of this patient's care with the Resident/Fellow, if applicable. I also have reviewed and agree with the assessment and plan as stated above and agree withall of its relevant components. Radha Cohn MD [facility] Evaluation note* Diagnosis Type 2 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 disease, with long-term current use of insulin, unspecified whether stage 3a or 3b CKD (HCC) Type 2 diabetes mellitus with diabetic polyneuropathy, with long-term current use of insulin (HCC) documented in this encounter [facility]10-05-2023 NoteHNO ID: [id number] Author: Haydee Christina APRN.SHRIMP CLEANER Service: ? Author Type: Nurse Practitioner Type: Progress Notes Filed: 03/31/2023 4:06 PM Note Text: [facility] DEPARTMENT OF KIDNEY MEDICINE CHIEF COMPLAINT: Follow up for CKD. Data copied from my previous encounters and was imported as a reference for the current encounter. All information in this note has been verified. Data or information that hasn't changed was retained from previous notes and the rest was revised or updated where relevant. HPI: Pt is an 78 year old male being seen today in FU for CKD3b with proteinuria likely in the setting of diabetic nephropathy and hypertensive nephrosclerosis. PMH: anemia, BPH, hyperlipidemia, hyperkalemia and glaucoma. Last seen by Dr Krishnan 10/18/22- no changes Myself 04/08/22 Since last visit continues to see podiatry regularly for toe wound BPs at home 120-130/60s Blood sugars at home 118-120 fasting. States his sugars drop in the 60s when he takes Jardiance early close to insulin. 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 Benign paroxysmal positional vertigo 09/28/2021 Cataract of left eye Chronic kidney disease, unspecified CKD (chronic kidney disease) stage 3, GFR 30-59 ml/min ([facility]) 05/26/2017 Coloboma of iris OD Depressive disorder, not elsewhere classified Erectile dysfunction associated with type 2 diabetes mellitus (HCC) 07/09/2008 Esophageal reflux Essential hypertension, benign Hyperplasia of prostate Macular edema dme od Other and unspecified hyperlipidemia Other specified anemias Other specified gastritis without mention of hemorrhage 09/18/2008 Personal history of colonic polyps 08/04/2016 Primary open angle glaucoma OU Primary open angle glaucoma (POAG) of both eyes, severe stage 04/07/2021 Proliferative diabetic retinopathy(362.02) Pseudophakia of right eye Right foot ulcer, limited to breakdown of skin (HCC) 04/20/2022 Shoulder pain 09/25/2008 Right. Tubular adenoma of colon 08/10/2016 Type II or unspecified type diabetes mellitus with ophthalmic manifestations, uncontrolled(250.52) 09/18/2008 [facility] Unspecified asthma(493.90) Vitreous hemorrhage (HCC) 04/19/2018 Added automatically from request for surgery [id number] Vitreous hemorrhage of left eye ([facility]) Current Outpatient Medications on File Prior to Visit Medication Sig meclizine (ANTIVERT) 25 mg tab Take 1 tablet by mouth three times daily as needed. flash glucose sensor ([employer] Ada SoftwareSTYLE DIANNE 14 DAY SENSOR) kit 1 Each every 2 weeks. Diagnoses: ICD10: E11.22, N18.32, Z79.4; E11.42, Z79.4. Sig: Check glucose 4 or more times per day. Patient on multiple insulin doses. Insulin [place], Disposable, (1ST TIER UNIFINE PENTIPS) 31 gauge x 3/16 Use as directed 4 times a day. Dx: E11.65 cyclobenzaprine (FLEXERIL) 10 mg tablet Take 1 tablet by mouth twice daily as needed for muscle spasm. insulin glargine (LANTUS SOLOSTAR U-100 INSULIN) 100 unit/mL (3 mL) Inject subcutaneously 25 units daily in the AM insulin lispro (HUMALOG KWIKPEN INSULIN) 100 unit/mL Inject subcutaneously TID meals per SS up to 15 units daily NIFEdipine ER (PROCARDIA XL) 90 mg 24 hr tablet Take 1 tablet by mouth once daily. losartan (COZAAR) 50 mg tablet Take 1 tablet by mouth once daily. pravastatin (PRAVACHOL) 80 mg tablet Take 1 tablet by mouth once daily. For cholesterol. furosemide (LASIX) 40 mg tablet Take 1 tablet by mouth once daily. gabapentin (NEURONTIN) 300 mg capsule Take 1 capsule by mouth three times daily for 180 days. empagliflozin (JARDIANCE) 10 mg tablet Take 1 tablet by mouth daily with breakfast. gabapentin (NEURONTIN) 300 mg capsule Take 1 capsule by mouth three times daily for 10 days. promethazine (PHENERGAN) 25 mg tablet Take 1 tablet by mouth every 6 hours as needed. mupirocin (BACTROBAN) 2 % ointment Apply 1 application to affected area three times daily. latanoprost (XALATAN) 0.005 % ophthalmic solution INSTILL 1 DROP IN BOTH EYES DAILY AT BEDTIME Lancets lancets Test blood sugar(s) 3 times daily. Dx: Type 2 DM - Uncontrolled E11.65 Insulin: Yes blood sugar diagnostic (BLOOD GLUCOSE TEST) test strip Test blood sugar(s) 3 times daily. Dx: Type 2 DM - Uncontrolled E11.65 Insulin: Yes dorzolamide-timolol (COSOPT) 22.3-6.8 mg/mL ophthalmic solution Use 1 Drop in both eyes twice daily. Use at 8 AM and 4 PM flash glucose scanning reader ([employer] DIANNE 14 DAY READER) Diagnoses: ICD10: E11.22, N18.32, Z79.4; E11.42, Z79.4. Sig: Check glucose 4 or (more content not included)...[facility] Instructions * Patient Instructions* Haydee Christina, SPECIALTY COOK.SHRIMP CLEANER - 03/31/2023 3:56 PM EDT PLAN: -Please get labs drawn today or within the next week. I will contact you via phone [phone] with results. -Ok to take the Jardiance at lunch time to see if that helps with low sugar -Discussed need for good diabetes, blood pressure and cholesterol control to prevent disease progression -Recommend BP goal of 130/80 or less. Please contact the office if your blood pressure is less [id number]/70 or higher than 160/90 -Follow low salt diet. (1/2 tsp salt) <2 grams -Please watch your protein intake and limit it to 3 ounces of protein per meal -Recommend continued HgbA1c of 7 or less as CKD goal. -Please avoid Advil, Ibuprofen(Motrin), Aleve(Naproxen), Meloxicam(Mobic), diclofenac and other pain/arthritis medications called NSAIDS. It is ok to take acetaminophen (Tylenol) for pain as needed -Please avoid contrast dye with imaging. If a provider wants to order CT or MRI with contrast, please let them know you have decreased kidney function. -Increase activity as tolerated. RTC [address] Krishnan sooner if indicated by lab results Ronal Corona CNP Office: [phone] now seeing patients in [employer]- can check at the front desk host Please bring a complete list of your medications, the dosage and times taken - to every visit. Please contact me by phone or via My Chart for any questions or concerns. We want to know that ALL of your concerns/needs relevant to this visit- were met today and that we have hopefully exceeded your expectations. If not-please let us know how we can improve our service to you by calling [phone] You may be receiving a survey regarding your care today. If you do, please take a few minutes to fill it out and send it back. It would be greatly appreciated. [facility] History of Present illness Narrative* Haydee Christina APRN.KAMILA - 03/31/2023 3:00 PM EDT [facility] DEPARTMENT OF KIDNEY MEDICINE CHIEF COMPLAINT: Follow up for CKD. Data copied from my previous encounters and was imported as a reference for the current encounter. All information in this note has been verified. Data or information that hasn't changed was retainedfrom previous notes and the rest was revised or updated where relevant. HPI: Pt is an 78 year old male being seen today in FU for CKD3b with proteinuria likely in the setting of diabetic nephropathy and hypertensive nephrosclerosis. PMH: anemia, BPH, hyperlipidemia, hyperkalemia and glaucoma. Last seen by Dr Krishnan 10/18/22- no changes Myself 04/08/22 Since last visit continues to see podiatry regularly for toe wound BPs at home 120-130/60s Blood sugars at home 118-120 fasting. States his sugars drop in the 60s when he takes Jardiance early close to insulin. 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) Background diabetic retinopathy(362.01) 09/18/2008 [facility]. Benign paroxysmal positional vertigo 09/28/2021 Cataract of left eye Chronic kidney disease, unspecified CKD (chronic kidney disease) stage 3, GFR 30-59 ml/min ([facility]) 05/26/2017 Coloboma of iris OD Depressive disorder, not elsewhere classified Erectile dysfunction associated with type 2 diabetes mellitus ([facility]) 07/09/2008 Esophageal reflux Essential hypertension, benign Hyperplasia of prostate Macular edema dme od Other and unspecified hyperlipidemia Other specified anemias Other specified gastritis without mention of hemorrhage 09/18/2008 Personal history of colonic polyps 08/04/2016 Primary open angle glaucoma OU Primary open angle glaucoma (POAG) of both eyes, severe stage 04/07/2021 Proliferative diabetic retinopathy(362.02) Pseudophakia of right eye Right foot ulcer, limited to breakdown of skin ([facility]) 04/20/2022 Shoulder pain 09/25/2008 Right. Tubular adenoma of colon 08/10/2016 Type II or unspecified type diabetes mellitus with ophthalmic manifestations, uncontrolled(250.52) 09/18/2008 [facility] Unspecified asthma(493.90) Vitreous hemorrhage ([facility]) 04/19/2018 Added automatically from request for surgery [id number] Vitreous hemorrhage of left eye ([facility]) Current Outpatient Medications on File Prior to Visit Medication Sig meclizine (ANTIVERT) 25 mg tab Take 1 tablet by mouth three times daily as needed. flash glucose sensor (FREESTYLE DIANNE 14 DAY SENSOR) kit 1 Each every 2 weeks. Diagnoses: ICD10: E11.22, N18.32, Z79.4; E11.42, Z79.4. Sig: Check glucose 4 or more times per day. Patient on multiple insulin doses. Insulin [place], Disposable, (1ST TIER UNIFINE PENTIPS) 31 gauge x 3/16 Use as directed 4 times a day. Dx: E11.65 cyclobenzaprine (FLEXERIL) 10 mg tablet Take 1 tablet by mouth twice daily as needed for muscle spasm. insulin glargine (LANTUS SOLOSTAR U-100 INSULIN) 100 unit/mL (3 mL) Inject subcutaneously 25 units daily in the AM insulin lispro (HUMALOG KWIKPEN INSULIN) 100 unit/mL Inject subcutaneously TID meals per SS up to 15 units daily NIFEdipine ER (PROCARDIA XL) 90 mg 24 hr tablet Take 1 tablet by mouth once daily. losartan (COZAAR) 50 mg tablet Take 1 tablet by mouth once daily. pravastatin (PRAVACHOL) 80 mg tablet Take 1 tablet by mouth once daily. For cholesterol. furosemide (LASIX) 40 mg tablet Take 1 tablet by mouth once daily. gabapentin (NEURONTIN) 300 mg capsule Take 1 capsule by mouth three times daily for 180 days. empagliflozin (JARDIANCE) 10 mg tablet Take 1 tablet by mouth daily with breakfast. gabapentin (NEURONTIN) 300 mg capsule Take 1 capsule by mouth three times daily for 10 days. promethazine (PHENERGAN) 25 mg tablet Take 1 tablet by mouth every 6 hours as needed. mupirocin (BACTROBAN) 2 % ointment Apply 1 application to affected area three times daily. latanoprost (XALATAN) 0.005 % ophthalmic solution INSTILL 1 DROP IN BOTH EYES DAILY AT BEDTIME Lancets lancets Test blood sugar(s) 3 times daily. Dx: Type 2 DM - Uncontrolled E11.65 Insulin: Yes blood sugar diagnostic (BLOOD GLUCOSE TEST) test strip Test blood sugar(s) 3 times daily. Dx: Type 2 DM - Uncontrolled E11.65 Insulin: Yes dorzolamide-timolol (COSOPT) 22.3-6.8 mg/mL ophthalmic solution Use 1 Drop in both eyes twice daily. Use at 8 AM and 4 PM flash glucose scanning reader ([employer] DIANNE 14 DAY READER) Diagnoses: ICD10: E11.22, N18.32, Z79.4; E11.42, Z79.4. Sig: Check glucose 4 or more times per day. Patient on multiple insulin doses. cholecalciferol (VITAMIN D) 1,000 unit tab tablet Take 1 tablet by mouth once daily. cyanocobalamin (VITAMIN B-12) 1,000 mcg tab Take 1 tablet by mouth once daily. aspirin(ECOTRIN LOW STRENGTH 81 MG TAB) Take by mouth. No current facility-administered medications on file prior to visit. REVIEW OF SYSTEMS: Constitutional: denies fevers, chills Cardiovascular: denies chest pain or pressure, palpitations, dizziness, lightheadedness. Denies ROMAN. Admits to edema to intermittent lower leg edema at the end of the day. Wears light compression stockings. Finds elevation relieves edema Respiratory: denies cough Gastrointestinal: denies diarrhea, constipation, nausea or metallic taste. Appetite is good Genitourinary: denies frequency, pink or bloody urine or dysuria. Has 1-2 episodes of nocturia per night Does not interfere with sleep. Does feel he empties his bladder fully. Follows with urology Skin: denies pruritus, rash. Neurological: denies headache Psychiatric: denies depression or anxiety. Reports energy level is good PHYSICAL EXAM BP: BP 143/70 Pulse 64 Wt 88.9 kg (196 lb) BMI 28.12 kg/m BP - standardized method Pulse 1 BP #1: 149/74 Pulse #1: 64 beats/min 2 BP #2 : 135/74 Pulse #2 : 64 beats/min 3 BP #3 : 146/63 Pulse #3 : 64 beats/min Average Average BP: 143/70 Average Pulse: 64 beats/min Orthostatic vitals Supine Sitting Standing BP cuff location BP cuff size Comments for BP values First BP (right) First BP (left) Last 2 Encounter Wt Readings: Date: Wt: 01/14/2022 88.9 kg (196 lb) 01/01/2022 90.7 kg (200 lb) Constitutional: No acute distress, Responsive, Normal habitus, and Well-nourished Neck:Trachea midline No jugular venous distension Cardiovascular:No peripheral edema Regular rate and rhythm, normal S1 and S2, no murmurs Respiratory: Normal respiratory effort. Lungs clear bilaterally. Abdomen: Soft, non-tender, non-distended. Normal bowel sounds. Extremities: No peripheral edema Neurological: Alert and oriented x3. Psychiatric: Alert and oriented x self, place, time, and setting Normal mood/affect Very pleasant. Works hard to stay healthy Diagnostic tests reviewed for today's visit Labs: Needs updated labs RENAL KIDNEY STONE FLOWSHEET Latest Ref Rng & Units 04/09/2022 10/25/2022 EGFR, All Other >=60 mL/min/1.73m 30 (L) 34 (L) Creatinine 0.73 - 1.22 mg/dL 2.25 (H) 2.01 (H) BUN 9 - 24 mg/dL 31 (H) 29 (H) Sodium 136 - 144 mmol/L 137 141 Potassium 3.7 - 5.1 mmol/L 5.3 (H) 4.6 Chloride 97 - 105 mmol/L 104 109 (H) CO2 22 - 30 mmol/L 26 22 Glucose 74 - 99 mg/dL 116 (H) 105 (H) Calcium 8.5 - 10.2 mg/dL 8.9 9.2 Phosphorus 2.7 - 4.8 mg/dL 3.6 3.3 Albumin 3.9 - 4.9 g/dL 4.1 4.0 WBC 3.70 - 11.00 k/uL 5.95 4.84 HGB 13.0 - 17.0 g/dL 12.2 (L) 12.8 (L) HCT 39.0 - 51.0 % 38.7 (L) 41.4 PLT 150 - 400 k/uL 305 279 PTH Intact 15 - 65 pg/mL 70 (H) Vitamin D25 Hydroxy 31.0 - 80.0 ng/mL 34.8 [facility] imagin03/28/17 kidney ultrasound. Per radiology report: IMPRESSION: No hydronephrosis. RESULT: The right kidney measures approximately 11.2 cm. The left kidney measures approximately 12 cm. There is no hydronephrosis or perinephric fluid collection. Prevoid urinary bladder volume is 3 cc. There is no postvoid residual. Ureteral jets were not assessed on this examination. 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 PMH: anemia, BPH, hyperlipidemia, hyperkalemia and glaucoma. CKD Stage 3b with proteinuria likely in the setting of diabetic nephropathy and hypertensive nephrosclerosis. -Creatinine 2.01 mg/dL in October 2022, just above baseline -Her baseline serum creatinine around 1.9 mg/dL -Abnormal creatinine since: progressively since 2008 -Albuminuria: Albumin creatinine ratio 141 in August 2021 On ARB On Jardiance Compliment and serology negative in May 2019 HTN/Volume: - well controlled on current regimen. -Volume: euvolemic -Currently on nifedipine 90mg daily, losartan 50mg daily and furosemide 40mg daily Metabolic/electrolytes: K+- 4.6 wnl in October 2022 Co2- 22 wnl Anemia: -Hgb 12.8 just below goal in October 2022 -denies overt losses denies -most recent colonoscopy 11/04/21 with recommendation to repeat in 5-10 yrs -continue to monitor along with iron stores to assess for need of ANALISA. Metabolic Bone: -Ca+ 9.2 wnl in October 2022 -Phos: 3.3 wnl -Vitamin D: 34.8 wnl in Mar 2022 -PTH: 70 wnl in Mar 2022 CV/Lipids: -hx of hyperlipidemia -on statin -recommend LDL goal of <100 to prevent progression of CKD. DM: -Last HgbA1c 5.9 well controlled in Jan 2023 -follow up with PCP/endo PLAN: -Please get labs drawn today or within the next week. I will contact you via phone [phone] with results. -Ok to take the Jardiance at lunch time to see if that helps with low sugar -Discussed need for good diabetes, blood pressure and cholesterol control to prevent disease progression -Recommend BP goal of 130/80 or less. Please contact the office if your blood pressure is less [id number] or higher than 150/90 -Follow low salt diet. (1/2 tsp salt) <2 grams -Please watch your protein intake and limit it to 3 ounces of protein per meal -Recommend continued HgbA1c of 7 or less as CKD goal. -Please avoid Advil, Ibuprofen(Motrin), Aleve(Naproxen), Meloxicam(Mobic), diclofenac and other pain/arthritis medications called NSAIDS. It is ok to take acetaminophen (Tylenol) for pain as needed -Please avoid contrast dye with imaging. If a provider wants to order CT or MRI with contrast, please let them know you have decreased kidney function. -Increase activity as tolerated. RTC [address] Krishnan sooner if indicated by lab results Ronal Corona CNP Office: [phone] now seeing patients in [facility] [facility]- can check at the front desk host if this is easier for you due to distance Haydee Christina CNP Spent 34 minutes in the visit and reviewing the chart. documented in this encounterThe [facility]09[facility] NoteHNO ID: [id number] Author: Marsha Eric Service: ? Author Type: Physician Type: Progress Notes Filed: 03/15/2023 12:41 PM Note Text: FOLLOW UP PODIATRIC OFFICE VISIT Chief Complaint: This 78 year old who presents for follow up:callus of right hallux Patient presents to clinic for follow-up callus of right hallux Patient continues with lotion and pummice stone. He has no other complaints. PAIN EVALUATION No data found in the last 1 encounters. Hemoglobin A1C (POCT) Date Value Ref Range Status 02/09/2023 5.9 4.2 - 5.6 % Final Comment: Location:[facility], [facility] [place], [address] Point of care (POC) Hemoglobin A1c (HGBA1C) testing is intended to assess glucose control and provide a management tool for patients known to have diabetes and their healthcare providers. Target HGBA1C levels may depend on specific clinical circumstances. POC HGBA1C is not intended for use as a diagnostic or screening test; laboratory-based testing should be used for diagnostic purposes. The following information is supplemental and may not be applicable to specific diabetes management situations: The POC device telecasting engineer provides a normal range of 4.2% to 6.5% for the HGBA1C POC test. However, the [place] [employer] guidelines indicate that patients with HGBA1C in the range of 5.7% to 6.4% are at increased risk for development of diabetes and that intervention by lifestyle modification may be beneficial. A HGBA1C level greater than or equal to 6.5% is considered diagnostic of diabetes, pending confirmatory testing. Use of HGBA1C testing to evaluate glucose control may not be appropriate for patients with hemoglobin variants or other conditions (e.g. anemia) that alter red blood cell lifespan. PCP: Jesse Glover MD PAST MEDICAL HISTORY Diagnosis Date Anemia in stage 3 chronic kidney disease (HCC) Background diabetic retinopathy(362.01) 09/18/2008 [facility]. Benign paroxysmal positional vertigo 09/28/2021 Cataract of left eye Chronic kidney disease, unspecified CKD (chronic kidney disease) stage 3, GFR 30-59 ml/min ([facility]) 05/26/2017 Coloboma of iris OD Depressive disorder, not elsewhere classified Erectile dysfunction associated with type 2 diabetes mellitus (HCC) 07/09/2008 Esophageal reflux Essential hypertension, benign Hyperplasia of prostate Macular edema dme od Other and unspecified hyperlipidemia Other specified anemias Other specified gastritis without mention of hemorrhage 09/18/2008 Personal history of colonic polyps 08/04/2016 Primary open angle glaucoma OU Primary open angle glaucoma (POAG) of both eyes, severe stage 04/07/2021 Proliferative diabetic retinopathy(362.02) Pseudophakia of right eye Right foot ulcer, limited to breakdown of skin (HCC) 04/20/2022 Shoulder pain 09/25/2008 Right. Tubular adenoma of colon 08/10/2016 Type II or unspecified type diabetes mellitus with ophthalmic manifestations, uncontrolled(250.52) 09/18/2008 [facility] Unspecified asthma(493.90) Vitreous hemorrhage (HCC) 04/19/2018 Added automatically from request for surgery [id number] Vitreous hemorrhage of left eye (HCC) Current Outpatient Medications Medication Sig flash glucose scanning reader ([employer] Ada SoftwareSTYLE DIANNE 2 READER) Use continuously to monitor glucose, IDDM, E 11.42 empagliflozin (JARDIANCE) 10 mg tablet Take 1 tablet by mouth daily with breakfast. Insulin [place], Disposable, (1ST TIER UNIFINE PENTIPS) 31 gauge x 3/16 Use as directed 4 times a day. Dx: E11.65 insulin glargine (LANTUS SOLOSTAR U-100 INSULIN) 100 unit/mL (3 mL) Inject subcutaneously 23 units daily in the AM insulin lispro (HUMALOG KWIKPEN INSULIN) 100 unit/mL Inject subcutaneously TID meals per SS up to 15 units daily gabapentin (NEURONTIN) 300 mg capsule Take 1 capsule by mouth three times daily for 180 days. losartan (COZAAR) 50 mg tablet Take 1 tablet by mouth once daily. pravastatin (PRAVACHOL) 80 mg tablet Take 1 tablet by mouth once daily. For cholesterol. furosemide (LASIX) 40 mg tablet Take 1 tablet by mouth once daily. NIFEdipine ER (PROCARDIA XL) 90 mg 24 hr tablet Take 1 tablet by mouth once daily. flash glucose sensor (FREESTYLE DIANNE 2 SENSOR) kit Use one sensor every 14 days, IDDM, E11.42 latanoprost (XALATAN) 0.005 % ophthalmic solution INSTILL 1 DROP IN BOTH EYES DAILY AT BEDTIME polyethylene glycol 3350 (MIRALAX) 17 gram/dose powder Take 17 g by mouth every other day. meclizine (ANTIVERT) 25 mg tab Take 1 tablet by mouth three times daily as needed. Lancets lancets Test blood sugar(s) 3 times daily. Dx: Type 2 DM - Uncontrolled E11.65 Insulin: Yes blood sugar diagnostic (BLOOD GLUCOSE TEST) test strip Test blood sugar(s) 3 times daily. Dx: Type 2 DM - Uncontrolled E11.65 Insulin: Yes cholecalciferol (VITAMIN D) 1,000 unit tab tablet Take 1 tablet by mouth once daily. cyanocobalamin (VITAMI (more content not included)...[facility] 03-15-2023 NoteHNO ID: [id number] Author: Tati Butler RN Service: ? Author Type: Registered Nurse Type: Progress Notes Filed: 03/15/2023 12:41 PM Note Text: Patient presents with: Left Foot - Established Patient, Follow Up, Callous Right Foot - Established Patient, Follow Up, Callous Patient presents for follow up of bilateral foot callous. Denies any pain to feet.[facility]09-08-2023 Miscellaneous Notes* Telephone Encounter - Jaimee Fang MA - 03/04/2023 9:35 AM EDT [employer] SENT A FAX FOR MOST RECENT OFFICE NOTE- FAXED SUCCESSFULLY TO [facility] [employer] documented in this encounterThe [facility]08-[facility]23 NoteHNO ID: [id number] Author: Marsha Eric Service: ? Author Type: Physician Type: Progress Notes Filed: 04/24/2023 10:10 PM Note Text: FOLLOW UP PODIATRIC OFFICE VISIT Chief Complaint: This 78 year old who presents for follow up:callus of right hallux Patient presents to clinic for follow-up callus of right hallux Patinet reports mild discomfort No other complaints. PAIN EVALUATION 02/10/2023 0812 Pain Level: 6 Pain Location: Foot-Right Description: Sharp Duration Units: Weeks Frequency: Intermittent Intervention/Comfort measure: Reposition;Relaxation Hemoglobin A1C (POCT) Date Value Ref Range Status 02/09/2023 5.9 4.2 - 5.6 % Final Comment: Location:[address], [address] Point of care (POC) Hemoglobin A1c (HGBA1C) testing is intended to assess glucose control and provide a management tool for patients known to have diabetes and their healthcare providers. Target HGBA1C levels may depend on specific clinical circumstances. POC HGBA1C is not intended for use as a diagnostic or screening test; laboratory-based testing should be used for diagnostic purposes. The following information is supplemental and may not be applicable to specific diabetes management situations: The POC device telecasting engineer provides a normal range of 4.2% to 6.5% for the HGBA1C POC test. However, the [place] [employer] guidelines indicate that patients with HGBA1C in the range of 5.7% to 6.4% are at increased risk for development of diabetes and that intervention by lifestyle modification may be beneficial. A HGBA1C level greater than or equal to 6.5% is considered diagnostic of diabetes, pending confirmatory testing. Use of HGBA1C testing to evaluate glucose control may not be appropriate for patients with hemoglobin variants or other conditions (e.g. anemia) that alter red blood cell lifespan. PCP: Jesse Glover MD PAST MEDICAL HISTORY Diagnosis Date Anemia in stage 3 chronic kidney disease (HCC) Background diabetic retinopathy(362.01) 09/18/2008 [facility]. Benign paroxysmal positional vertigo 09/28/2021 Cataract of left eye Chronic kidney disease, unspecified CKD (chronic kidney disease) stage 3, GFR 30-59 ml/min ([facility]) 05/26/2017 Coloboma of iris OD Depressive disorder, not elsewhere classified Erectile dysfunction associated with type 2 diabetes mellitus ([facility]) 07/09/2008 Esophageal reflux Essential hypertension, benign Hyperplasia of prostate Macular edema dme od Other and unspecified hyperlipidemia Other specified anemias Other specified gastritis without mention of hemorrhage 09/18/2008 Personal history of colonic polyps 08/04/2016 Primary open angle glaucoma OU Primary open angle glaucoma (POAG) of both eyes, severe stage 04/07/2021 Proliferative diabetic retinopathy(362.02) Pseudophakia of right eye Right foot ulcer, limited to breakdown of skin ([facility]) 04/20/2022 Shoulder pain 09/25/2008 Right. Tubular adenoma of colon 08/10/2016 Type II or unspecified type diabetes mellitus with ophthalmic manifestations, uncontrolled(250.52) 09/18/2008 [facility] Unspecified asthma(493.90) Vitreous hemorrhage ([facility]) 04/19/2018 Added automatically from request for surgery [id number] Vitreous hemorrhage of left eye (HCC) Current Outpatient Medications Medication Sig flash glucose scanning reader (FREESTYLE DIANNE 2 READER) Use continuously to monitor glucose, IDDM, E 11.42 empagliflozin (JARDIANCE) 10 mg tablet Take 1 tablet by mouth daily with breakfast. Insulin [place], Disposable, (1ST TIER UNIFINE PENTIPS) 31 gauge x 3/16 Use as directed 4 times a day. Dx: E11.65 insulin glargine (LANTUS SOLOSTAR U-100 INSULIN) 100 unit/mL (3 mL) Inject subcutaneously 23 units daily in the AM insulin lispro (HUMALOG KWIKPEN INSULIN) 100 unit/mL Inject subcutaneously TID meals per SS up to 15 units daily gabapentin (NEURONTIN) 300 mg capsule Take 1 capsule by mouth three times daily for 180 days. losartan (COZAAR) 50 mg tablet Take 1 tablet by mouth once daily. pravastatin (PRAVACHOL) 80 mg tablet Take 1 tablet by mouth once daily. For cholesterol. furosemide (LASIX) 40 mg tablet Take 1 tablet by mouth once daily. NIFEdipine ER (PROCARDIA XL) 90 mg 24 hr tablet Take 1 tablet by mouth once daily. flash glucose sensor (FREESTYLE DIANNE 2 SENSOR) kit Use one sensor every 14 days, IDDM, E11.42 latanoprost (XALATAN) 0.005 % ophthalmic solution INSTILL 1 DROP IN BOTH EYES DAILY AT BEDTIME polyethylene glycol 3350 (MIRALAX) 17 gram/dose powder Take 17 g by mouth every other day. meclizine (ANTIVERT) 25 mg tab Take 1 tablet by mouth three times daily as needed. Lancets lancets Test blood sugar(s) 3 times daily. Dx: Type 2 DM - Uncontrolled E11.65 Insulin: Yes blood sugar diagnostic (BLOOD GLUCOSE TEST) test strip Test blood sugar(s) 3 times daily. Dx: Type 2 DM - Uncontrolled E11.65 In (more content not included)...[facility]08-17-2023 NoteHNO ID: [id number] Author: Ledy Campbell LPN Service: ? Author Type: LICENSED NURSE Type: Progress Notes Filed: 02/10/2023 12:47 PM Note Text: Patient presents with: Right Foot - Established Patient, Follow Up, Pain Patient presents with: Right Foot - Established Patient, Follow Up, Pain [facility]* Patient Instructions* Marsha Eric - 02/10/2023 8:47 AM EDT Diabetes Foot Care Instructions When you have diabetes, proper foot care is very important. Poor foot care may lead to amputation of a foot or leg. As a person with diabetes, you are more vulnerable to foot problems, because diabetes can damage your nerves and reduce blood flow to your feet. Here are some diabetes foot care tips to follow: Wash and Dry Your Feet Daily Use mild soaps Use warm water Pat your skin dry; do not rub. Thoroughly dry your feet. After washing, use lotion on your feet to prevent cracking. Do not put lotion between your toes. Examine Your Feet Each Day Check the tops and bottoms of your feet. Have someone else look at your feet if you cannot see them. Check for dry, cracked skin. Look for blisters, cuts, scratches, or other sores. Check for redness, increased warmth, or tenderness when touching any area of your feet. Check for ingrown toenails, corns, and calluses. If you get a blister or sore from your shoes, do not pop it. Apply a bandage and wear a differentpair of shoes. Take Care of Your Toenails Cut toenails after bathing, when they are soft. Cut toenails straight across and smooth with a nail file. Avoid cutting into the corners of toes. Do not cut cuticles. If you have neuropathy (or decreased sensation in your feet) a office coordinator receptionist should always cut your toenails. Be Careful When Exercising Walk and exercise in comfortable shoes. Do not exercise when you have open sores on your feet. Protect Your Feet With Shoes and Socks Never go barefoot. Always protect your feet by wearing shoes or hard-soled slippers or footwear. Avoid shoes with high heels and pointed toes. Avoid shoes that expose your toes or heels (such as open-toed shoes or sandals). These types of shoes increase your risk for injury and potential infections. Try on new footwear with the type of socks you usually wear. Do not wear new shoes for more than an hour at a time. Change your socks daily. Look and feel inside your shoes before putting them on to make sure there are no foreign objects orrough areas. Avoid tight socks. Wear natural-fiber socks (cotton, wool, or a cotton-wool blend). Wear special shoes if your health care provider recommends them. Wear shoes/boots that will protect your feet from various weather conditions (cold, moisture, etc.). Make sure your shoes fit properly. If you have neuropathy (nerve damage), you may not notice that your shoes are too tight. Perform the footwear test described below. Footwear Test Use this simple test to see if your shoes fit correctly: Stand on a piece of paper. (Make sure you are standing and not sitting, because your foot changes shape when you stand.) Trace the outline of your foot. Trace the outline of your shoe. Compare the tracings: Is the shoe too narrow? Is your foot crammed into the shoe? The shoe should be at least 1/2 inch longer than your longest toe and as wide as your foot. Proper Shoe Choices The following types of shoes are best for people with diabetes Closed toes and heels Leather uppers without a seam inside At least 1/2 inch extra space at the end of your longest toe Inside of shoe should be soft with no rough areas Outer sole should be made of stiff material Shoes should be at least as wide as your feet Tips for Foot Care in Diabetes Don't wait to treat a minor foot problem if you have diabetes. Follow your health care provider's guidelines and first aid guidelines. Report foot injuries and infections to your health care provider immediately. Check water temperature with your elbow, not your foot. Do not use a heating pad on your feet. Do not cross your legs. Do not self-treat your corns, calluses, or other foot problems. Go to your health care provider or office coordinator receptionist to treat these conditions. documented in this encounterThe [facility]08-[facility] History of Present illness Narrative* Marsha Eric - 02/10/2023 8:38 AM EDT FOLLOW UP PODIATRIC OFFICE VISIT Chief Complaint: This 78 year old who presents for follow up:callus of right hallux Patient presents to clinic for follow-up callus of right hallux Andriy reports mild discomfort No other complaints. PAIN EVALUATION 02/10/2023 0812 Pain Level: 6 Pain Location: Foot-Right Description: Sharp Duration Units: Weeks Frequency: Intermittent Intervention/Comfort measure: Reposition;Relaxation Hemoglobin A1C (POCT) Date Value Ref Range Status 02/09/2023 5.9 4.2 - 5.6 % Final Comment: Location:[facility], [address] [place], [address] Point of care (POC) Hemoglobin A1c (HGBA1C) testing is intended to assess glucose control and provide a management tool for patients known to have diabetes and their healthcare providers. Target HGBA1C levels may depend on specific clinical circumstances. POC HGBA1C is not intended for use as a diagnostic or screening test; laboratory-based testing should be used for diagnostic purposes. The following information is supplemental and may not be applicable to specific diabetes management situations: The POC device telecasting engineer provides a normal range of 4.2% to 6.5% for the HGBA1C POC test. However, the [place] [employer] guidelines indicate that patients with HGBA1C in the range of 5.7% to 6.4% are at increased risk for development of diabetes and that intervention by lifestyle modification may be beneficial. A HGBA1C level greater than or equal to 6.5% is considered diagnostic of diabetes, pending confirmatory testing. Use of HGBA1C testing to evaluate glucose control may not be appropriate for patients with hemoglobin variants or other conditions (e.g. anemia) that alter red blood cell lifespan. PCP: Jesse Glover MD PAST MEDICAL HISTORY Diagnosis Date Anemia in stage 3 chronic kidney disease (HCC) Background diabetic retinopathy(362.01) 09/18/2008 [facility]. Benign paroxysmal positional vertigo 09/28/2021 Cataract of left eye Chronic kidney disease, unspecified CKD (chronic kidney disease) stage 3, GFR 30-59 ml/min ([facility]) 05/26/2017 Coloboma of iris OD Depressive disorder, not elsewhere classified Erectile dysfunction associated with type 2 diabetes mellitus (HCC) 07/09/2008 Esophageal reflux Essential hypertension, benign Hyperplasia of prostate Macular edema dme od Other and unspecified hyperlipidemia Other specified anemias Other specified gastritis without mention of hemorrhage 09/18/2008 Personal history of colonic polyps 08/04/2016 Primary open angle glaucoma OU Primary open angle glaucoma (POAG) of both eyes, severe stage 04/07/2021 Proliferative diabetic retinopathy(362.02) Pseudophakia of right eye Right foot ulcer, limited to breakdown of skin (HCC) 04/20/2022 Shoulder pain 09/25/2008 Right. Tubular adenoma of colon 08/10/2016 Type II or unspecified type diabetes mellitus with ophthalmic manifestations, uncontrolled(250.52) 09/18/2008 [facility] Unspecified asthma(493.90) Vitreous hemorrhage (HCC) 04/19/2018 Added automatically from request for surgery [id number] Vitreous hemorrhage of left eye (HCC) Current Outpatient Medications Medication Sig flash glucose scanning reader ([employer] Ada SoftwareSTYLE DIANNE 2 READER) Use continuously to monitor glucose, IDDM,E 11.42 empagliflozin (JARDIANCE) 10 mg tablet Take 1 tablet by mouth daily with breakfast. Insulin [place], Disposable, (1ST TIER UNIFINE PENTIPS) 31 gauge x 3/16 Use as directed 4 times a day. Dx: E11.65 insulin glargine (LANTUS SOLOSTAR U-100 INSULIN) 100 unit/mL (3 mL) Inject subcutaneously 23 units daily in the AM insulin lispro (HUMALOG KWIKPEN INSULIN) 100 unit/mL Inject subcutaneously TID meals per SS up to 15 units daily gabapentin (NEURONTIN) 300 mg capsule Take 1 capsule by mouth three times daily for 180 days. losartan (COZAAR) 50 mg tablet Take 1 tablet by mouth once daily. pravastatin (PRAVACHOL) 80 mg tablet Take 1 tablet by mouth once daily. For cholesterol. furosemide (LASIX) 40 mg tablet Take 1 tablet by mouth once daily. NIFEdipine ER (PROCARDIA XL) 90 mg 24 hr tablet Take 1 tablet by mouth once daily. flash glucose sensor (FREESTYLE DIANNE 2 SENSOR) kit Use one sensor every 14 days, IDDM, E11.42 latanoprost (XALATAN) 0.005 % ophthalmic solution INSTILL 1 DROP IN BOTH EYES DAILY AT BEDTIME polyethylene glycol 3350 (MIRALAX) 17 gram/dose powder Take 17 g by mouth every other day. meclizine (ANTIVERT) 25 mg tab Take 1 tablet by mouth three times daily as needed. Lancets lancets Test blood sugar(s) 3 times daily. Dx: Type 2 DM - Uncontrolled E11.65 Insulin: Yes blood sugar diagnostic (BLOOD GLUCOSE TEST) test strip Test blood sugar(s) 3 times daily. Dx: Type 2 DM - Uncontrolled E11.65 Insulin: Yes cholecalciferol (VITAMIN D) 1,000 unit tab tablet Take 1 tablet by mouth once daily. cyanocobalamin (VITAMIN B-12) 1,000 mcg tab Take 1 tablet by mouth once daily. aspirin(ECOTRIN LOW STRENGTH 81 MG TAB) Take by mouth. No current facility-administered medications for this visit. ALLERGIES Allergen Reactions Cortisone Other: See Comments Shunk real hot, as if someone threw boiling water on him Zestril [Lisinopril] Intolerance ARF, hypokalemia PAST SURGICAL HISTORY Procedure Laterality Date AVASTIN (BEVACIZUMAB) 1.25MG INTRAVITREAL INJECTION OD (RIGHT EYE) Right 04/19/2018 LAST COLONOSCOPY 11/04/2021 COLONOSCOPY FLX DX W/COLLJ SPEC WHEN PFRMD 05/27/2003 Colonoscopy COLONOSCOPY GEN ANES 08/04/2016 COLONOSCOPY W/BIOPSY SINGLE/MULTIPLE 07/25/2013 Repeat due 2016 COLSC FLX W/RMVL OF TUMOR POLYP LESION SNARE TQ 08/04/2016 Repeat 07/2019 ESOPHAGOGASTRODUODENOSCOPY TRANSORAL DIAGNOSTIC 05/27/2003 EGD EYE SURGERY HX Right 05/02/2018 Pars plana vitrectomy, membrane peel, endolaser, and air fluid exchange right eye. LAPAROSCOPY SURG CHOLECYSTECTOMY 03/2003 Cholecystectomy, lap OPEN REPAIR OF ROTATOR CUFF ACUTE 04/24/2009 Rotator cuff repair, Right PANRETINAL PHOTOCOAGULATION (PRP) OD (RIGHT EYE) Right 08/29/2014 LAST ; PRP (Panretinal Photocoagulation) OD PANRETINAL PHOTOCOAGULATION (PRP) OS (LEFT EYE) Left 07/12/2013 #2 ; PRP (Panretinal Photocoagulation) OS PROSTATECTOMY SUPRAPUBIC SUBTOTAL 06/23/2011 for BPH VITRECTOMY MECHANICAL PARS PLANA Left 11/16/2016 PPV/MP/EL/AFX OS XCAPSL CTRC RMVL INSJ IO LENS PROSTH W/O ECP 02/07/2007 Cataract Removal right XCAPSL CTRC RMVL INSJ IO LENS PROSTH W/O ECP Left 11/16/2016 Cataract Extraction with PC IOL OS Physical Exam: OBJECTIVE: Constitutional: Pt is a well developed 78 year old male who is alert, oriented, cooperative and in no apparent distress. Eyes: Following during examination. No redness or drainage. Respiratory: RR normal and nonlabored. Even breathing. No evidence of distress. Psychology: Patient is engaged during conversation. Normal affect and mood. Does not appear depressed or anxious. NVSI unchanged from previous visit. Dermatological: Nails 1-5 b/l are normal. Webspaces clean and dry 1-4 b/l. Skin appears well hydrated and supple. good color, texture, turgor. No open lesions present. Callus present to right hallux. No underlying ulceration is present Musculoskeletal/Orthopaedic: Patient has pain to palpation of right hallux callus Flatfoot is noted b/l R>L ASSESSMENT: (L84) Callus of foot (primary encounter diagnosis) (M21.41, M21.42) Pes planus of both feet (E11.49) Other diabetic neurological complication associated with type 2 diabetes mellitus (HCC) PLAN: Callus present to right hallux was reduced with 15 blade and dremmel Continue with inserts and use of lotion and periodic debridement Follow-up in 4-5 weeks for callus Marsha Eric DPM * Ledy Campbell LPN - 02/10/2023 8:12 AM EDT Patient presents with: Right Foot - Established Patient, Follow Up, Pain Patient presents with: Right Foot - Established Patient, Follow Up, Pain Ledy Campbell LPN documented in this encounterThe [facility]08-[facility]23 NoteHNO ID: [id number] Author: Chanda Phillips APRN.SHRIMP CLEANER Service: ? Author Type: Nurse Practitioner Type: Progress Notes Filed: 02/09/2023 10:24 AM Note Text: Reason for Consultation: DM Type 2 Referring Physician: Jesse Glover MD [id number] [facility] [id number] HISTORY OF PRESENT ILLNESS Mr. West is a 78 year old male presenting here today for a follow up of DM Type 2. As I recall, he was initially diagnosed with diabetes 1989.He has been on insulin since 2008 LV 08/13/22 A1C today is 5.9 History of diabetes, hypertension, hyperlipidemia, retinopathy, peripheral neuropathy and CKD, BPH, ED, anemia, hyperparathyroidism States he is due for a new AINSTEC - Financial Reconciliation reader. Receives supplies form [employer] He varies his dose of humalog vs following SS below. Also may take insulin between meals if elevated. Fhx of DM in mother, siblings, Maternal Aunt. Under the care of podiatry, nephrology Mild anemia, secondary hyperparathyroidism per nephrology Nephrology started SGLT2 Seeing cardiology in [place]. Denies hx of UT, CVA, stents, CABG/CAD Current diabetes regimen is as follows: lantus 23 units daily in AM jardiance 10 mg daily --per nephrology humalog per SS--using 2x per day If Blood Glucose (mg/dL) is < 150 Give 0 units 151-200 Give 2 unit 201-250 Give 3 units 251-300 Give 4 units >301 Give 5 units Previous DM medications: Glimepiride tradjenta--cost Metformin--renal disease humalog 75/25 he is checking his blood glucose continuously with Freestyle Dianne 2 CGM he does bring a log book today for review. LDE Blood Sugar Frequency: *he is concerned about lower BG level in early AM. Freestyle Dianne 14 day (01/26/23 to 02/09/23)--see procedure note for details In range 80% High 19% Very high 1% Low/very low 0% Avg glucose 147 Estimated A1C 6.8 BG overnight is at goal. He rises with meals Hypoglycemia frequency: occasionally Hypoglycemia awareness: Yes Regarding symptoms of hypoglycemia, he is not experiencing any symptoms such as polyuria, polydipsia, nocturia or rapid weight loss or blurry vision, Overall, the patient has no acute complaints at this time. PAST MEDICAL HISTORY Diagnosis Date Anemia in stage 3 chronic kidney disease (HCC) Background diabetic retinopathy(362.01) 09/18/2008 [facility]. Benign paroxysmal positional vertigo 09/28/2021 Cataract of left eye Chronic kidney disease, unspecified CKD (chronic kidney disease) stage 3, GFR 30-59 ml/min ([facility]) 05/26/2017 Coloboma of iris OD Depressive disorder, not elsewhere classified Erectile dysfunction associated with type 2 diabetes mellitus (HCC) 07/09/2008 Esophageal reflux Essential hypertension, benign Hyperplasia of prostate Macular edema dme od Other and unspecified hyperlipidemia Other specified anemias Other specified gastritis without mention of hemorrhage 09/18/2008 Personal history of colonic polyps 08/04/2016 Primary open angle glaucoma OU Primary open angle glaucoma (POAG) of both eyes, severe stage 04/07/2021 Proliferative diabetic retinopathy(362.02) Pseudophakia of right eye Right foot ulcer, limited to breakdown of skin (HCC) 04/20/2022 Shoulder pain 09/25/2008 Right. Tubular adenoma of colon 08/10/2016 Type II or unspecified type diabetes mellitus with ophthalmic manifestations, uncontrolled(250.52) 09/18/2008 [facility] Unspecified asthma(493.90) Vitreous hemorrhage (HCC) 04/19/2018 Added automatically from request for surgery [id number] Vitreous hemorrhage of left eye (HCC) PAST SURGICAL HISTORY Procedure Laterality Date AVASTIN (BEVACIZUMAB) 1.25MG INTRAVITREAL INJECTION OD (RIGHT EYE) Right 04/19/2018 LAST COLONOSCOPY 11/04/2021 COLONOSCOPY FLX DX W/COLLJ SPEC WHEN PFRMD 05/27/2003 Colonoscopy COLONOSCOPY GEN ANES 08/04/2016 COLONOSCOPY W/BIOPSY SINGLE/MULTIPLE 07/25/2013 Repeat due 2017 COLSC FLX W/RMVL OF TUMOR POLYP LESION SNARE TQ 08/04/2016 Repeat 07/2019 ESOPHAGOGASTRODUODENOSCOPY TRANSORAL DIAGNOSTIC 05/27/2003 EGD EYE SURGERY HX Right 05/02/2018 Pars plana vitrectomy, membrane peel, endolaser, and air fluid exchange right eye. LAPAROSCOPY SURG CHOLECYSTECTOMY 03/2003 Cholecystectomy, lap OPEN REPAIR OF ROTATOR CUFF ACUTE 04/24/2009 Rotator cuff repair, Right PANRETINAL PHOTOCOAGULATION (PRP) OD (RIGHT EYE) Right 08/29/2014 LAST ; PRP (Panretinal Photocoagulation) OD PANRETINAL PHOTOCOAGULATION (PRP) OS (LEFT EYE) Left 07/12/2013 #2 ; PRP (Panretinal Photocoagulation) OS PROSTATECTOMY SUPRAPUBIC SUBTOTAL 06/23/2011 for BPH VITRECTOMY MECHANICAL PARS PLANA Left 11/16/2016 PPV/MP/EL/AFX OS XCAPSL CTRC RMVL INSJ IO LENS PROSTH W/O ECP 02/07/2007 Cataract Removal right XCAPSL CTRC RMVL INSJ IO LENS PROSTH W/O ECP Left 11/16/2016 Cataract Extraction with PC IOL OS FAMILY HISTORY Problem Relation Age of Onset Breast Cancer Mother at age 55 COPD Father Black lung Breast Cancer S (more content not included)...[facility] 02-09-2023 NoteHNO ID: [id number] Author: Jaimee Fang MA Service: ? Author Type: Tire Maintenance Technician Type: Procedures Filed: 02/09/2023 10:24 AM Note Text:[facility]08-16-[facility] Instructions* Patient Instructions* Chanda Phillips APRN.CNP - 02/09/2023 10:06 AM EDT Continue lantus Continue jardiance (per nephrology) Humalog per sliding scale at meals: If Blood Glucose (mg/dL) is < 150 Give 0 units 151-200 Give 2 unit 201-250 Give 3 units 251-300 Give 4 units >301 Give 5 units Follow up in 6 months Chanda Phillips, CRISS, SPECIALTY COOK, BILLING AND INSURANCE COORDINATOR-C, CDE Endocrinology [facility]/[address] [place] [address] Fax: documented in this encounterThe [facility]08-16-[facility] History of Present illness Narrative* Chanda Phillips APRN.KAMILA - 02/09/2023 10:00 AM EDT Reason for Consultation: DM Type 2 Referring Physician: Jesse Glover MD [id number] [facility] [address] HISTORY OF PRESENT ILLNESS Mr. West is a 78 year old male presenting here today for a follow up of DM Type 2. As I recall, hewas initially diagnosed with diabetes 1989.He has been on insulin since 2008 LV 08/13/22 A1C today is 5.9 History of diabetes, hypertension, hyperlipidemia, retinopathy, peripheral neuropathy and CKD, BPH,ED, anemia, hyperparathyroidism States he is due for a new AINSTEC - Financial Reconciliation reader. Receives supplies form [employer] He varies his dose of humalog vs following SS below. Also may take insulin between meals if elevated. Fhx of DM in mother, siblings, Maternal Aunt. Under the care of podiatry, nephrology Mild anemia, secondary hyperparathyroidism per nephrology Nephrology started SGLT2 Seeing cardiology in [place]. Denies hx of UT, CVA, stents, CABG/CAD Current diabetes regimen is as follows: lantus 23 units daily in AM jardiance 10 mg daily --per nephrology humalog per SS--using 2x per day If Blood Glucose (mg/dL) is < 150 Give 0 units 151-200 Give 2 unit 201-250 Give 3 units 251-300 Give 4 units >301 Give 5 units Previous DM medications: Glimepiride tradjenta--cost Metformin--renal disease humalog 75/25 he is checking his blood glucose continuously with Freestyle Dianne 2 CGM he does bring a log book today for review. LDE Blood Sugar Frequency: *he is concerned about lower BG level in early AM. Freestyle Dianne 14 day (01/26/23 to 02/09/23)--see procedure note for details In range 80% High 19% Very high 1% Low/very low 0% Avg glucose 147 Estimated A1C 6.8 BG overnight is at goal. He rises with meals Hypoglycemia frequency: occasionally Hypoglycemia awareness: Yes Regarding symptoms of hypoglycemia, he is not experiencing any symptoms such as polyuria, polydipsia, nocturia or rapid weight loss or blurry vision, Overall, the patient has no acute complaints at this time. PAST MEDICAL HISTORY Diagnosis Date Anemia in stage 3 chronic kidney disease (HCC) Background diabetic retinopathy(362.01) 09/18/2008 [facility]. Benign paroxysmal positional vertigo 09/28/2021 Cataract of left eye Chronic kidney disease, unspecified CKD (chronic kidney disease) stage 3, GFR 30-59 ml/min ([facility]) 05/26/2017 Coloboma of iris OD Depressive disorder, not elsewhere classified Erectile dysfunction associated with type 2 diabetes mellitus ([facility]) 07/09/2008 Esophageal reflux Essential hypertension, benign Hyperplasia of prostate Macular edema dme od Other and unspecified hyperlipidemia Other specified anemias Other specified gastritis without mention of hemorrhage 09/18/2008 Personal history of colonic polyps 08/04/2016 Primary open angle glaucoma OU Primary open angle glaucoma (POAG) of both eyes, severe stage 04/07/2021 Proliferative diabetic retinopathy(362.02) Pseudophakia of right eye Right foot ulcer, limited to breakdown of skin ([facility]) 04/20/2022 Shoulder pain 09/25/2008 Right. Tubular adenoma of colon 08/10/2016 Type II or unspecified type diabetes mellitus with ophthalmic manifestations, uncontrolled(250.52) 09/18/2008 [facility] Unspecified asthma(493.90) Vitreous hemorrhage (HCC) 04/19/2018 Added automatically from request for surgery [id number] Vitreous hemorrhage of left eye (HCC) PAST SURGICAL HISTORY Procedure Laterality Date AVASTIN (BEVACIZUMAB) 1.25MG INTRAVITREAL INJECTION OD (RIGHT EYE) Right 04/19/2018 LAST COLONOSCOPY 11/04/2021 COLONOSCOPY FLX DX W/COLLJ SPEC WHEN PFRMD 05/27/2003 Colonoscopy COLONOSCOPY GEN ANES 08/04/2016 COLONOSCOPY W/BIOPSY SINGLE/MULTIPLE 07/25/2013 Repeat due 2017 COLSC FLX W/RMVL OF TUMOR POLYP LESION SNARE TQ 08/04/2016 Repeat 07/2019 ESOPHAGOGASTRODUODENOSCOPY TRANSORAL DIAGNOSTIC 05/27/2003 EGD EYE SURGERY HX Right 05/02/2018 Pars plana vitrectomy, membrane peel, endolaser, and air fluid exchange right eye. LAPAROSCOPY SURG CHOLECYSTECTOMY 03/2003 Cholecystectomy, lap OPEN REPAIR OF ROTATOR CUFF ACUTE 04/24/2009 Rotator cuff repair, Right PANRETINAL PHOTOCOAGULATION (PRP) OD (RIGHT EYE) Right 08/29/2014 LAST ; PRP (Panretinal Photocoagulation) OD PANRETINAL PHOTOCOAGULATION (PRP) OS (LEFT EYE) Left 07/12/2013 #2 ; PRP (Panretinal Photocoagulation) OS PROSTATECTOMY SUPRAPUBIC SUBTOTAL 06/23/2011 for BPH VITRECTOMY MECHANICAL PARS PLANA Left 11/16/2016 PPV/MP/EL/AFX OS XCAPSL CTRC RMVL INSJ IO LENS PROSTH W/O ECP 02/07/2007 Cataract Removal right XCAPSL CTRC RMVL INSJ IO LENS PROSTH W/O ECP Left 11/16/2016 Cataract Extraction with PC IOL OS FAMILY HISTORY Problem Relation Age of Onset Breast Cancer Mother at age 55 COPD Father Black lung Breast Cancer Sister at age 54 Diabetes Brother No Ocular Disease No Family History nothing known of Social History Tobacco Use Smoking status: Former Types: Cigars Smokeless tobacco: Never Tobacco comments: quit 40 + years ago Vaping Use Vaping Use: Never used Substance Use Topics Alcohol use: Yes Comment: rarely, 2-3 glasses red wine per month Drug use: No Allergies As of Date: 02/09/2023 Allergen Noted Reaction CORTISONE 05/09/2009 Other: See Comments ZESTRIL [LISINOPRIL] 01/29/2009 Intolerance Fully Assessed 02/09/2023 Current Outpatient Medications Medication Sig Dispense Refill Insulin [place], Disposable, (1ST TIER UNIFINE PENTIPS) 31 gauge x /16 Use as directed 4 times a day. Dx: E11.65 400 Each 3 insulin glargine (LANTUS SOLOSTAR U-100 INSULIN) 100 unit/mL (3 mL) Inject subcutaneously 23 units daily in the AM 15 mL 5 insulin lispro (HUMALOG KWIKPEN INSULIN) 100 unit/mL Inject subcutaneously TID meals per SS up to 15 units daily 15 mL 5 empagliflozin (JARDIANCE) 10 mg tablet Take 1 tablet by mouth daily with breakfast. 90 tablet 3 gabapentin (NEURONTIN) 300 mg capsule Take 1 capsule by mouth three times daily for 180 days. 270 capsule 1 losartan (COZAAR) 50 mg tablet Take 1 tablet by mouth once daily. 90 tablet 3 pravastatin (PRAVACHOL) 80 mg tablet Take 1 tablet by mouth once daily. For cholesterol. 90 tablet 3 furosemide (LASIX) 40 mg tablet Take 1 tablet by mouth once daily. 90 tablet 3 NIFEdipine ER (PROCARDIA XL) 90 mg 24 hr tablet Take 1 tablet by mouth once daily. 90 tablet 3 flash glucose sensor (FREESTYLE DIANNE 2 SENSOR) kit Use one sensor every 14 days, IDDM, E11.42 6 Each 3 flash glucose scanning reader (FREESTYLE DIANNE 2 READER) Use continuously to monitor glucose, IDDM,E 11.42 1 Each 0 latanoprost (XALATAN) 0.005 % ophthalmic solution INSTILL 1 DROP IN BOTH EYES DAILY AT BEDTIME 7.5 mL 2 polyethylene glycol 3350 (MIRALAX) 17 gram/dose powder Take 17 g by mouth every other day. meclizine (ANTIVERT) 25 mg tab Take 1 tablet by mouth three times daily as needed. 90 tablet 3 Lancets lancets Test blood sugar(s) 3 times daily. Dx: Type 2 DM - Uncontrolled E11.65 Insulin: [id number] Each 5 blood sugar diagnostic (BLOOD GLUCOSE TEST) test strip Test blood sugar(s) 3 times daily. Dx: Type 2 DM - Uncontrolled E11. Insulin: Yes 100 Strip 11 cholecalciferol (VITAMIN D) 1,000 unit tab tablet Take 1 tablet by mouth once daily. 30 tablet 3 cyanocobalamin (VITAMIN B-12) 1,000 mcg tab Take 1 tablet by mouth once daily. aspirin(ECOTRIN LOW STRENGTH 81 MG TAB) Take by mouth. 0 cyclobenzaprine (FLEXERIL) 10 mg tablet Take 1 tablet by mouth twice daily as needed for muscle spasm. (Patient not taking: Reported on 02/09/2023) 20 tablet 0 No current facility-administered medications for this visit. REVIEW OF SYSTEMS Review of Systems Respiratory: Negative for difficulty breathing. Cardiovascular: Negative for chest pain. Gastrointestinal: Negative for nausea, vomiting, diarrhea and constipation. PHYSICAL EXAMINATION BP 146/73 Pulse 67 Resp 16 Ht 177.8 cm (5' 10 ) Wt 88.2 kg (194 lb 8 oz) SpO2 98% BMI 27.91 kg/m2 Physical Exam Constitutional: Appearance: Normal appearance. Cardiovascular: Rate and Rhythm: Normal rate and regular rhythm. Pulmonary: Effort: Pulmonary effort is normal. Breath sounds: Normal breath sounds. Skin: General: Skin is warm and dry. Neurological: Mental Status: He is alert and oriented to person, place, and time. Psychiatric: Mood and Affect: Mood normal. Behavior: Behavior normal. Seeing podiatry--has an appt tomorrow DATA Creatinine Date Value Ref Range Status 10/25/2022 2.01 (H) 0.73 - 1.22 mg/dL Final Hemoglobin A1C (%) Date Value 09/03/2020 10.7 Hemoglobin A1C (POCT) (%) Date Value 02/09/2023 5.9 ) No components found for: URINEALBUMIN Cholesterol, Total (mg/dL) Date Value 10/25/2022 207 09/03/2020 175 HDL Cholesterol (mg/dL) Date Value 10/25/2022 51 09/03/2020 47 LDL Cholesterol (mg/dL) Date Value 10/25/2022 132 09/03/2020 97 Triglyceride (mg/dL) Date Value 10/25/2022 118 09/03/2020 156 IMPRESSION: Mr. West is a 78 year old male here for evaluation of DM Type 2 complicated by hypertension, hyperlipidemia, retinopathy, peripheral neuropathy and CKD RECOMMENDATIONS: (E11.3593, Z79.4) 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, with long-term current use of insulin (HCC) (primary encounter diagnosis) (E11.42, Z79.4) Type 2 diabetes mellitus with diabetic polyneuropathy, with long-term current use of insulin (HCC) (E11.22, N18.30, Z79.4) Type 2 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 disease, with long-term current use of insulin, unspecified whether stage 3a or 3b CKD (HCC) Comment: Glycemic control is at goal per A1C. Reviewed the importance of taking humalog at the start of the meal and avoiding between meal doses. Plan: HEMOGLOBIN A1C (POC), flash glucose scanning reader (FREESTYLE DIANNE 2 READER), empagliflozin (JARDIANCE) 10 mg tablet Continue lantus Continue jardiance (per nephrology) Humalog per sliding scale at meals: If Blood Glucose (mg/dL) is < 150 Give 0 units 151-200 Give 2 unit 201-250 Give 3 units 251-300 Give 4 units >301 Give 5 units Follow up in 6 months (E11.649) Hypoglycemia due to type 2 diabetes mellitus (HCC) Comment/Plan: flash glucose scanning reader (FREESTYLE DIANNE 2 READER) Continue dianne Follow SS humalog Avoid taking humalog between meals (I10) Hypertension goal BP (blood pressure) < 140/90 Comment/Plan: Managed per PCP/nephrology (E78.5) Hyperlipidemia, unspecified hyperlipidemia type Comment: taking pravastatin Plan:managed per PCP I spent a total of 30 minutes on the date of the service which included preparing to see the patient, [id number] patient care, completing clinical documentation, obtaining and/or reviewing separately obtained history, performing a medically appropriate examination, counseling and educating the pat ient/family/caregiver, ordering medications, tests, or procedures, and communicating results to thepatient/family/caregiver. Chanda Phillips, MSN, SPECIALTY COOK, BILLING AND INSURANCE COORDINATOR-C, CDE Endocrinology [facility]/[place] [address] Fax: documented in this encounterThe [facility]08-[facility]23 Procedure note* Jaimee Fang MA - 02/09/2023 9:46 AM EDTProcedure(s): EXTERNAL BLACK MILL OPERATOR, CGM SYS Images from the original note were not included. documented in this encounterThe [facility]08-16-[facility] Evaluation note* Diagnosis Type 2 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 disease, with long-term current use of insulin, unspecified whether stage 3a or 3b CKD (HCC) Type 2 diabetes mellitus with diabetic polyneuropathy, with long-term current use of insulin ([facility]) Hypoglycemia due to type 2 diabetes mellitus ([facility]) Hypertension goal BP (blood pressure) < 140/90 Unspecified essential hypertension Hyperlipidemia, unspecified hyperlipidemia type documented in this encounter [facility]06-22-2023 NoteHNO ID: [id number] Author: Marsha Eric Service: ? Author Type: Physician Type: Progress Notes Filed: 12/16/2022 8:20 AM Note Text: FOLLOW UP PODIATRIC OFFICE VISIT Chief Complaint: This 77 year old who presents for follow up:callus of right hallux Patient presents to clinic for follow-up callus of right hallux. Patient currently treats the callus with lotion but he states the hallux still remains rather dry He does wear diabetic shoes . Today, presents wearing slippers PAIN EVALUATION No data found in the last 1 encounters. Hemoglobin A1C Date Value Ref Range Status 10/25/2022 6.0 (H) 4.3 - 5.6 % Final Comment: [place] [employer] guidelines indicate that patients with HgbA1c in the range 5.7-6.4% are at increased risk for development of diabetes, and intervention by lifestyle modification may be beneficial. HgbA1c greater or equal to 6.5% is considered diagnostic of diabetes. PCP: Jesse Glover MD PAST MEDICAL HISTORY Diagnosis Date Anemia in stage 3 chronic kidney disease (HCC) Background diabetic retinopathy(362.01) 09/18/2008 [facility]. Benign paroxysmal positional vertigo 09/28/2021 Cataract of left eye Chronic kidney disease, unspecified CKD (chronic kidney disease) stage 3, GFR 30-59 ml/min (HCC) 05/26/2017 Coloboma of iris OD Depressive disorder, not elsewhere classified Erectile dysfunction associated with type 2 diabetes mellitus (HCC) 07/09/2008 Esophageal reflux Essential hypertension, benign Hyperplasia of prostate Macular edema dme od Other and unspecified hyperlipidemia Other specified anemias Other specified gastritis without mention of hemorrhage 09/18/2008 Personal history of colonic polyps 08/04/2016 Primary open angle glaucoma OU Primary open angle glaucoma (POAG) of both eyes, severe stage 04/07/2021 Proliferative diabetic retinopathy(362.02) Pseudophakia of right eye Right foot ulcer, limited to breakdown of skin ([facility]) 04/20/2022 Shoulder pain 09/25/2008 Right. Tubular adenoma of colon 08/10/2016 Type II or unspecified type diabetes mellitus with ophthalmic manifestations, uncontrolled(250.52) 09/18/2008 [facility] Unspecified asthma(493.90) Vitreous hemorrhage ([facility]) 04/19/2018 Added automatically from request for surgery [id number] Vitreous hemorrhage of left eye ([facility]) Current Outpatient Medications Medication Sig insulin glargine (LANTUS SOLOSTAR U-100 INSULIN) 100 unit/mL (3 mL) Inject subcutaneously 23 units daily in the AM insulin lispro (HUMALOG KWIKPEN INSULIN) 100 unit/mL Inject subcutaneously TID meals per SS up to 15 units daily empagliflozin (JARDIANCE) 10 mg tablet Take 1 tablet by mouth daily with breakfast. gabapentin (NEURONTIN) 300 mg capsule Take 1 capsule by mouth three times daily for 180 days. losartan (COZAAR) 50 mg tablet Take 1 tablet by mouth once daily. pravastatin (PRAVACHOL) 80 mg tablet Take 1 tablet by mouth once daily. For cholesterol. furosemide (LASIX) 40 mg tablet Take 1 tablet by mouth once daily. NIFEdipine ER (PROCARDIA XL) 90 mg 24 hr tablet Take 1 tablet by mouth once daily. flash glucose sensor (FREESTYLE DIANNE 2 SENSOR) kit Use one sensor every 14 days, IDDM, E11.42 flash glucose scanning reader (FREESTYLE DIANNE 2 READER) Use continuously to monitor glucose, IDDM, E 11.42 latanoprost (XALATAN) 0.005 % ophthalmic solution INSTILL 1 DROP IN BOTH EYES DAILY AT BEDTIME polyethylene glycol 3350 (MIRALAX) 17 gram/dose powder Take 17 g by mouth every other day. meclizine (ANTIVERT) 25 mg tab Take 1 tablet by mouth three times daily as needed. Insulin [place], Disposable, (1ST TIER UNIFINE PENTIPS) 31 gauge x 3/16 Use as directed 4 times a day. Dx: E11.65 cyclobenzaprine (FLEXERIL) 10 mg tablet Take 1 tablet by mouth twice daily as needed for muscle spasm. Lancets lancets Test blood sugar(s) 3 times daily. Dx: Type 2 DM - Uncontrolled E11.65 Insulin: Yes blood sugar diagnostic (BLOOD GLUCOSE TEST) test strip Test blood sugar(s) 3 times daily. Dx: Type 2 DM - Uncontrolled E11.65 Insulin: Yes cholecalciferol (VITAMIN D) 1,000 unit tab tablet Take 1 tablet by mouth once daily. cyanocobalamin (VITAMIN B-12) 1,000 mcg tab Take 1 tablet by mouth once daily. aspirin(ECOTRIN LOW STRENGTH 81 MG TAB) Take by mouth. No current facility-administered medications for this visit. ALLERGIES Allergen Reactions Cortisone Other: See Comments Shunk real hot, as if someone threw boiling water on him Zestril [Lisinopril] Intolerance ARF, hypokalemia PAST SURGICAL HISTORY Procedure Laterality Date AVASTIN (BEVACIZUMAB) 1.25MG INTRAVITREAL INJECTION OD (RIGHT EYE) Right 04/19/2018 LAST COLONOSCOPY 11/04/2021 COLONOSCOPY FLX DX W/COLLJ SPEC WHEN PFRMD 05/27/2003 Colonoscopy COLONOSCOPY GEN ANES 08/04/2016 COLONOSCOPY W/BIOPSY SINGLE/MULTIPLE 07/25/2013 Repeat due 2017 COLSC FLX W/RMVL OF TUMOR POLYP LESION SNARE TQ (more content not included)...[facility]06-22-2023 NoteHNO ID: [id number] Author: Velia Ordoñez MA Service: ? Author Type: Tire Maintenance Technician Type: Progress Notes Filed: 12/16/2022 8:20 AM Note Text: Patient presents here today for 3-5 week follow up on B/L feet. Patient denies any pain, states he just has numbness that comes and goes.[facility]06-22-2023 Instructions* Patient Instructions* Marsha Hernesto - 12/16/2022 8:18 AM EDT Would continue with lotion to feet daily Use pummice stone as needed for callus Continue with diabetic shoe If you need this filed down, call for followup documented in this encounterThe [facility] History of Present illness Narrative* Marsha Eric - 12/16/2022 8:11 AM EDT FOLLOW UP PODIATRIC OFFICE VISIT Chief Complaint: This 77 year old who presents for follow up:callus of right hallux Patient presents to clinic for follow-up callus of right hallux. Patient currently treats the callus with lotion but he states the hallux still remains rather dry He does wear diabetic shoes . Today, presents wearing slippers PAIN EVALUATION No data found in the last 1 encounters. Hemoglobin A1C Date Value Ref Range Status 10/25/2022 6.0 (H) 4.3 - 5.6 % Final Comment: [place] [employer] guidelines indicate that patients with HgbA1c in the range 5.7-6.4% are at increased risk for development of diabetes, and intervention by lifestyle modification may be beneficial. HgbA1c greater or equal to 6.5% is considered diagnostic of diabetes. PCP: Jesse Glover MD PAST MEDICAL HISTORY Diagnosis Date Anemia in stage 3 chronic kidney disease (HCC) Background diabetic retinopathy(362.01) 09/18/2008 [facility]. Benign paroxysmal positional vertigo 09/28/2021 Cataract of left eye Chronic kidney disease, unspecified CKD (chronic kidney disease) stage 3, GFR 30-59 ml/min (HCC) 05/26/2017 Coloboma of iris OD Depressive disorder, not elsewhere classified Erectile dysfunction associated with type 2 diabetes mellitus (HCC) 07/09/2008 Esophageal reflux Essential hypertension, benign Hyperplasia of prostate Macular edema dme od Other and unspecified hyperlipidemia Other specified anemias Other specified gastritis without mention of hemorrhage 09/18/2008 Personal history of colonic polyps 08/04/2016 Primary open angle glaucoma OU Primary open angle glaucoma (POAG) of both eyes, severe stage 04/07/2021 Proliferative diabetic retinopathy(362.02) Pseudophakia of right eye Right foot ulcer, limited to breakdown of skin (HCC) 04/20/2022 Shoulder pain 09/25/2008 Right. Tubular adenoma of colon 08/10/2016 Type II or unspecified type diabetes mellitus with ophthalmic manifestations, uncontrolled(250.52) 09/18/2008 [facility] Unspecified asthma(493.90) Vitreous hemorrhage (HCC) 04/19/2018 Added automatically from request for surgery [id number] Vitreous hemorrhage of left eye (HCC) Current Outpatient Medications Medication Sig insulin glargine (LANTUS SOLOSTAR U-100 INSULIN) 100 unit/mL (3 mL) Inject subcutaneously 23 units daily in the AM insulin lispro (HUMALOG KWIKPEN INSULIN) 100 unit/mL Inject subcutaneously TID meals per SS up to 15 units daily empagliflozin (JARDIANCE) 10 mg tablet Take 1 tablet by mouth daily with breakfast. gabapentin (NEURONTIN) 300 mg capsule Take 1 capsule by mouth three times daily for 180 days. losartan (COZAAR) 50 mg tablet Take 1 tablet by mouth once daily. pravastatin (PRAVACHOL) 80 mg tablet Take 1 tablet by mouth once daily. For cholesterol. furosemide (LASIX) 40 mg tablet Take 1 tablet by mouth once daily. NIFEdipine ER (PROCARDIA XL) 90 mg 24 hr tablet Take 1 tablet by mouth once daily. flash glucose sensor (FREESTYLE DIANNE 2 SENSOR) kit Use one sensor every 14 days, IDDM, E11.42 flash glucose scanning reader (FREESTYLE DIANNE 2 READER) Use continuously to monitor glucose, IDDM,E 11.42 latanoprost (XALATAN) 0.005 % ophthalmic solution INSTILL 1 DROP IN BOTH EYES DAILY AT BEDTIME polyethylene glycol 3350 (MIRALAX) 17 gram/dose powder Take 17 g by mouth every other day. meclizine (ANTIVERT) 25 mg tab Take 1 tablet by mouth three times daily as needed. Insulin [place], Disposable, (1ST TIER UNIFINE PENTIPS) 31 gauge x 3/16 Use as directed 4 times a day. Dx: E11.65 cyclobenzaprine (FLEXERIL) 10 mg tablet Take 1 tablet by mouth twice daily as needed for muscle spasm. Lancets lancets Test blood sugar(s) 3 times daily. Dx: Type 2 DM - Uncontrolled E11.65 Insulin: Yes blood sugar diagnostic (BLOOD GLUCOSE TEST) test strip Test blood sugar(s) 3 times daily. Dx: Type 2 DM - Uncontrolled E11.65 Insulin: Yes cholecalciferol (VITAMIN D) 1,000 unit tab tablet Take 1 tablet by mouth once daily. cyanocobalamin (VITAMIN B-12) 1,000 mcg tab Take 1 tablet by mouth once daily. aspirin(ECOTRIN LOW STRENGTH 81 MG TAB) Take by mouth. No current facility-administered medications for this visit. ALLERGIES Allergen Reactions Cortisone Other: See Comments Shunk real hot, as if someone threw boiling water on him Zestril [Lisinopril] Intolerance ARF, hypokalemia PAST SURGICAL HISTORY Procedure Laterality Date AVASTIN (BEVACIZUMAB) 1.25MG INTRAVITREAL INJECTION OD (RIGHT EYE) Right 04/19/2018 LAST COLONOSCOPY 11/04/2021 COLONOSCOPY FLX DX W/COLLJ SPEC WHEN PFRMD 05/27/2003 Colonoscopy COLONOSCOPY GEN ANES 08/04/2016 COLONOSCOPY W/BIOPSY SINGLE/MULTIPLE 07/25/2013 Repeat due 2017 COLSC FLX W/RMVL OF TUMOR POLYP LESION SNARE TQ 08/04/2016 Repeat 07/2019 ESOPHAGOGASTRODUODENOSCOPY TRANSORAL DIAGNOSTIC 05/27/2003 EGD EYE SURGERY HX Right 05/02/2018 Pars plana vitrectomy, membrane peel, endolaser, and air fluid exchange right eye. LAPAROSCOPY SURG CHOLECYSTECTOMY 03/2003 Cholecystectomy, lap OPEN REPAIR OF ROTATOR CUFF ACUTE 04/24/2009 Rotator cuff repair, Right PANRETINAL PHOTOCOAGULATION (PRP) OD (RIGHT EYE) Right 08/29/2014 LAST ; PRP (Panretinal Photocoagulation) OD PANRETINAL PHOTOCOAGULATION (PRP) OS (LEFT EYE) Left 07/12/2013 #2 ; PRP (Panretinal Photocoagulation) OS PROSTATECTOMY SUPRAPUBIC SUBTOTAL 06/23/2011 for BPH VITRECTOMY MECHANICAL PARS PLANA Left 11/16/2016 PPV/MP/EL/AFX OS XCAPSL CTRC RMVL INSJ IO LENS PROSTH W/O ECP 02/07/2007 Cataract Removal right XCAPSL CTRC RMVL INSJ IO LENS PROSTH W/O ECP Left 11/16/2016 Cataract Extraction with PC IOL OS Physical Exam: OBJECTIVE: Constitutional: Pt is a well developed 77 year old male who is alert, oriented, cooperative and in no apparent distress. Eyes: Following during examination. No redness or drainage. Respiratory: RR normal and nonlabored. Even breathing. No evidence of distress. Psychology: Patient is engaged during conversation. Normal affect and mood. Does not appear depressed or anxious. NVSI unchanged from previous visit. Dermatological: Callus present to right hallux. No underlying ulceration Skin is well hydrated b/l without signs of infection Musculoskeletal/Orthopaedic: Patient has no pain to palpation of right hallux Flatfoot is noted b/l R>L Contracture is present to toes of right foot ASSESSMENT: (L84) Callus of foot (primary encounter diagnosis) (M21.41, M21.42) Pes planus of both feet (E11.49) Other diabetic neurological complication associated with type 2 diabetes mellitus (HCC) PLAN: Callus present to right hallux caused by flatfoot and slight contracture Callus reduced with drmmel Contineu with lotion and diabetic shoe Can f/u in 1 month or sooner if problems arise Marsha Eric DPM * Velia Ordoñez MA - 12/16/2022 8:08 AM EDT Patient presents here today for 3-5 week follow up on B/L feet. Patient denies any pain, states he just has numbness that comes and goes. documented in this encounterThe [facility]06-[facility] Miscellaneous Notes* Telephone Encounter - Tianna Schneider Ma - 12/14/2022 8:14 AM EDT Form Faxed, Transmission ok CLOSED * Telephone Encounter - Chanda Phillips APRN.CNP - 12/14/2022 7:35 AM EDT Form signed. Thank you * Telephone Encounter - Tianna Schneider Ma - 12/13/2022 2:09 PM EDT Form on docs desk/basket for review from [employer]. Please review and sign. Needs to be faxed to [phone]. Attached last office note. documented in this encounterThe [facility]06-[facility]23 Miscellaneous Notes* Telephone Encounter - Sherley Vallejo - 12/10/2022 4:19 PM EDT Patient called in to check on progress on this. He shared that he has one sensor left, combined with what he is currently using, this will last him 19 days. He is concerned about this matter being resolved before then. * Telephone Encounter - Chanda Phillips APRN.CNP - 12/10/2022 2:21 PM EDT Please contact [employer] so they send us the order form for CGM supplies. Thank you * Telephone Encounter - Roz Segovia LPN - 12/10/2022 1:41 PM EDT No [employer] forms have been rec'd to pcp's office. Message left to endo office in [place]. It looks like they will be getting forms. * Telephone Encounter - America Mcginnis APRN.CNP - 12/10/2022 10:48 AM EDT We will order using [employer]'s form once we receive it instead of faxing a prescription to resolve this issue America Mcginnis APRN.KAMILA * Telephone Encounter - Tati Hardy RN - 12/10/2022 9:39 AM EDT Pt reports he needs new sensors, he always has a hard time getting them. It looks like they are printed every time. He states they are never given to him. He states provider sends them some where andthen they are sent to the Pt. Pt did not know where the provider sends them to. Could not find if they were sent to a DME or pharmacy. He states they always get messed up. Per note from 08/24/22 I have two prescriptions for Freestyle Dianne 2 brinell tester and sensor that we were waiting for a fax numberto send to [facility]. Called patient and he said he has to use [employer] (Phone ). Pt called and reports he called the telecasting engineer and they told him the Rx needs to go to [facility] andthe phone # is [phone]. I called [employer] and the order forms were going to his PCP. I updated information and they are goingto fax us new forms with Chanda's information. Patient has been identified by name and date of : Yes, Provider Dr Glover Date 12/10/22 [id number]. Patient phones for refill(s): Requested Prescriptions Pending Prescriptions Disp Refills flash glucose sensor (FREESTYLE DIANNE 2 SENSOR) kit 6 Each 3 Sig: Use one sensor every 14 days, IDDM, E11.42 Date of last office visit in primary care: 10/27/22 Future visit: 05/10/23 Last 2 Encounter Wt Readings: Date: Wt: 10/27/2022 89.8 kg (198 lb) 10/18/2022 89.8 kg (198 lb) Previous labs/tests for medication: Diabetes: Hemoglobin A1C (%) Date Value 10/25/2022 6.0 09/03/2020 10.7 12/19/2019 7.0 Hemoglobin A1C (POCT) (%) Date Value 08/13/2022 6.3 01/01/2022 5.7 Please advise. Thank you. Tati Hardy RN documented in this encounterThe [facility]06-[facility] Evaluation note* Diagnosis Type 2 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 disease, with long-term current use of insulin, unspecified whether stage 3a or 3b CKD (HCC) Type 2 diabetes mellitus with diabetic polyneuropathy, with long-term current use of insulin (HCC) Hypoglycemia due to type 2 diabetes mellitus (HCC) documented in this encounter [facility]-25-[facility]23 NoteHNO ID: [id number] Author: Marsha Eric Service: ? Author Type: Physician Type: Progress Notes Filed: 11/18/2022 8:52 AM Note Text: Last saw america older: 10/27/22 Subjective: Patient presents to clinic c/o painful toenails. They state that the nails are especially painful with shoe gear and pressure. Patient states that nails 1-5 b/l are painful. Patient complains of callus of right hallux. Patient admits to being diabetic. No other pedal complaints at this time. Patient states no change in medications or medical history since last visit. Objective: Patient presents to clinic ambulating in sneakers Vasc: DP and PT pulses are palpable bilateral. CFT is less than 5 seconds bilateral. Skin temperature is warm to cool proximal to distal bilateral. There is mild edema or varicosities noted. Neuro: Protective sensation is decreased to the foot and toes when tested with the 5.07 SWM bilateral. Vibratory sensation is absent at the hallux IPJ bilateral. The hallux is downgoing bilateral. Derm: Nails 1-5 b/l are painful, discolored-yellow, thick, crumbly, dystrophic and with subungal debris. Skin is of normal turgor, texture and hair growth is present bilateral. There are callus to right hallux. No ulcerations, scars, verruca or other lesions noted. Ortho: Muscle strength is 5/5 for all pedal groups tested. Ankle joint DF is decreased with the knee extended with no pain or crepitus noted. 1st MPJ ROM is decreased bilateral. Assessment: (E11.49) Other diabetic neurological complication associated with type 2 diabetes mellitus (HCC) (primary encounter diagnosis) (B35.1) Onychomycosis (M79.674) Pain in toe of right foot (L84) Callus of foot (M21.41, M21.42) Pes planus of both feet Plan: Patient was seen and evaluated. Nails 1-5 bilateral were debrided in length and thickness. Small bleed to right 5th toe. Band aide applied Callus noted to right hallux and this was reduced. Small bleed and band aide applied. Monitor daily and use lotion. Could use pummice stone periodically or follow-up in 4-5 weeks for debridement. Patient was instructed on the continued importance of diabetic foot care along with proper diet and keeping their blood sugar under control to prevent complications. Patient is to RTC in 3-4 months. [facility] NoteHNO ID: [id number] Author: Tati Butler RN Service: ? Author Type: Registered Nurse Type: Progress Notes Filed: 11/18/2022 8:52 AM Note Text: Patient presents with: Left Foot - Diabetic Foot Check, Established Patient, Follow Up Right Foot - Diabetic Foot Check, Established Patient, Callous, Follow Up Patient presents for 3 month follow up diabetic nail care. Patient also states that he has a callous to the right foot. Denies any pain to feet. [facility]05-03-2023 NoteHNO ID: [id number] Author: America Mcginnis APRN.CNP Service: ? Author Type: Nurse Practitioner Type: Progress Notes Filed: 10/27/2022 9:58 AM Note Text: CC: Patient presents with: F/U 6 months HPI Esvin West Sr. is a 77 year old male who presents today for above. He is doing well overall, denies any concerns or issues today. Taking all medications as prescribed denies side effects. Blood sugars are well controlled, monitored with CGM. 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 Does not check BP at home. Intermittent episodes of vertigo brought on by certain movements and boating. Managed by avoiding triggers and takes Antivert as needed. REVIEW OF SYSTEMS GENERAL: Negative for malaise, significant weight loss and fever RESPIRATORY: Negative for cough, wheezing and shortness of breath CARDIOVASCULAR: Negative for chest pain, leg swelling and palpitations PAST MEDICAL HISTORY Diagnosis Date Anemia in stage 3 chronic kidney disease (HCC) Background diabetic retinopathy(362.01) 09/18/2008 [facility]. Benign paroxysmal positional vertigo 09/28/2021 Cataract of left eye Chronic kidney disease, unspecified CKD (chronic kidney disease) stage 3, GFR 30-59 ml/min (HCC) 05/26/2017 Coloboma of iris OD Depressive disorder, not elsewhere classified Erectile dysfunction associated with type 2 diabetes mellitus (HCC) 07/09/2008 Esophageal reflux Essential hypertension, benign Hyperplasia of prostate Macular edema dme od Other and unspecified hyperlipidemia Other specified anemias Other specified gastritis without mention of hemorrhage 09/18/2008 Personal history of colonic polyps 08/04/2016 Primary open angle glaucoma OU Primary open angle glaucoma (POAG) of both eyes, severe stage 04/07/2021 Proliferative diabetic retinopathy(362.02) Pseudophakia of right eye Right foot ulcer, limited to breakdown of skin (HCC) 04/20/2022 Shoulder pain 09/25/2008 Right. Tubular adenoma of colon 08/10/2016 Type II or unspecified type diabetes mellitus with ophthalmic manifestations, uncontrolled(250.52) 09/18/2008 [facility] Unspecified asthma(493.90) Vitreous hemorrhage (HCC) 04/19/2018 Added automatically from request for surgery [id number] Vitreous hemorrhage of left eye (HCC) PAST SURGICAL HISTORY Procedure Laterality Date AVASTIN (BEVACIZUMAB) 1.25MG INTRAVITREAL INJECTION OD (RIGHT EYE) Right 04/19/2018 LAST COLONOSCOPY 11/04/2021 COLONOSCOPY FLX DX W/COLLJ SPEC WHEN PFRMD 05/27/2003 Colonoscopy COLONOSCOPY GEN ANES 08/04/2016 COLONOSCOPY W/BIOPSY SINGLE/MULTIPLE 07/25/2013 Repeat due 2017 COLSC FLX W/RMVL OF TUMOR POLYP LESION SNARE TQ 08/04/2016 Repeat 07/2019 ESOPHAGOGASTRODUODENOSCOPY TRANSORAL DIAGNOSTIC 05/27/2003 EGD EYE SURGERY HX Right 05/02/2018 Pars plana vitrectomy, membrane peel, endolaser, and air fluid exchange right eye. LAPAROSCOPY SURG CHOLECYSTECTOMY 03/2003 Cholecystectomy, lap OPEN REPAIR OF ROTATOR CUFF ACUTE 04/24/2009 Rotator cuff repair, Right PANRETINAL PHOTOCOAGULATION (PRP) OD (RIGHT EYE) Right 08/29/2014 LAST ; PRP (Panretinal Photocoagulation) OD PANRETINAL PHOTOCOAGULATION (PRP) OS (LEFT EYE) Left 07/12/2013 #2 ; PRP (Panretinal Photocoagulation) OS PROSTATECTOMY SUPRAPUBIC SUBTOTAL 06/23/2011 for BPH VITRECTOMY MECHANICAL PARS PLANA Left 11/16/2016 PPV/MP/EL/AFX OS XCAPSL CTRC RMVL INSJ IO LENS PROSTH W/O ECP 02/07/2007 Cataract Removal right XCAPSL CTRC RMVL INSJ IO LENS PROSTH W/O ECP Left 11/16/2016 Cataract Extraction with PC IOL OS ALLERGIES Cortisone and Zestril [Lisinopril] MEDICATIONS insulin glargine (LANTUS SOLOSTAR U-100 INSULIN) 100 unit/mL (3 mL) Inject subcutaneously 23 units daily in the AM insulin lispro (HUMALOG KWIKPEN INSULIN) 100 unit/mL Inject subcutaneously TID meals per SS up to 15 units daily empagliflozin (JARDIANCE) 10 mg tablet Take 1 tablet by mouth daily with breakfast. NIFEdipine ER (PROCARDIA XL) 90 mg 24 hr tablet Take 1 tablet by mouth once daily. dorzolamide-timolol (COSOPT) 22.3-6.8 mg/mL ophthalmic solution Use 1 Drop in both eyes twice daily. Use at 8 AM and 4 PM flash glucose sensor (FREESTYLE DIANNE 2 SENSOR) kit Use one sensor every 14 days, IDDM, E11.42 flash glucose scanning reader (FREESTYLE DIANNE 2 READER) Use continuously to monitor glucose, IDDM, E 11.42 latanoprost (XALATAN) 0.005 % ophthalmic solution INSTILL 1 DROP IN BOTH EYES DAILY AT BEDTIME gabapentin (NEURONTIN) 300 mg capsule Take 1 capsule by mouth three times daily for 180 days. polyethylene glycol 3350 (MIRALAX) 17 gram/dose powder Take 17 g by mouth every other day. sulfamethoxazole-trimethoprim (BACTRIM DS,SEPTRA DS) 800-160 mg per tablet Take by mouth twice daily. meclizine (ANTIVERT) 25 mg tab Take 1 tablet by mouth three times daily as needed. 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 is a 77 year old male who presents today for above. He is doing well overall, denies any concerns or issues today. Taking all medications as prescribed denies side effects. Blood sugars are well controlled, monitored with CGM. 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 Does not check BP at home. Intermittent episodes of vertigo brought on by certain movements and boating. Managed by avoiding triggers and takes Antivert as needed. REVIEW OF SYSTEMS GENERAL: Negative for malaise, significant weight loss and fever RESPIRATORY: Negative for cough, wheezing and shortness of breath CARDIOVASCULAR: Negative for chest pain, leg swelling and palpitations PAST MEDICAL HISTORY Diagnosis Date Anemia in stage 3 chronic kidney disease (HCC) Background diabetic retinopathy(362.01) 09/18/2008 [facility]. Benign paroxysmal positional vertigo 09/28/2021 Cataract of left eye Chronic kidney disease, unspecified CKD (chronic kidney disease) stage 3, GFR 30-59 ml/min ([facility]) 05/26/2017 Coloboma of iris OD Depressive disorder, not elsewhere classified Erectile dysfunction associated with type 2 diabetes mellitus ([facility]) 07/09/2008 Esophageal reflux Essential hypertension, benign Hyperplasia of prostate Macular edema dme od Other and unspecified hyperlipidemia Other specified anemias Other specified gastritis without mention of hemorrhage 09/18/2008 Personal history of colonic polyps 08/04/2016 Primary open angle glaucoma OU Primary open angle glaucoma (POAG) of both eyes, severe stage 04/07/2021 Proliferative diabetic retinopathy(362.02) Pseudophakia of right eye Right foot ulcer, limited to breakdown of skin ([facility]) 04/20/2022 Shoulder pain 09/25/2008 Right. Tubular adenoma of colon 08/10/2016 Type II or unspecified type diabetes mellitus with ophthalmic manifestations, uncontrolled(250.52) 09/18/2008 iddm Unspecified asthma(493.90) Vitreous hemorrhage ([facility]) 04/19/2018 Added automatically from request for surgery [id number] Vitreous hemorrhage of left eye ([facility]) PAST SURGICAL HISTORY Procedure Laterality Date AVASTIN (BEVACIZUMAB) 1.25MG INTRAVITREAL INJECTION OD (RIGHT EYE) Right 04/19/2018 LAST COLONOSCOPY 11/04/2021 COLONOSCOPY FLX DX W/COLLJ SPEC WHEN PFRMD 05/27/2003 Colonoscopy COLONOSCOPY GEN ANES 08/04/2016 COLONOSCOPY W/BIOPSY SINGLE/MULTIPLE 07/25/2013 Repeat due 2017 COLSC FLX W/RMVL OF TUMOR POLYP LESION SNARE TQ 08/04/2016 Repeat 07/2019 ESOPHAGOGASTRODUODENOSCOPY TRANSORAL DIAGNOSTIC 05/27/2003 EGD EYE SURGERY HX Right 05/02/2018 Pars plana vitrectomy, membrane peel, endolaser, and air fluid exchange right eye. LAPAROSCOPY SURG CHOLECYSTECTOMY 03/2003 Cholecystectomy, lap OPEN REPAIR OF ROTATOR CUFF ACUTE 04/24/2009 Rotator cuff repair, Right PANRETINAL PHOTOCOAGULATION (PRP) OD (RIGHT EYE) Right 08/29/2014 LAST ; PRP (Panretinal Photocoagulation) OD PANRETINAL PHOTOCOAGULATION (PRP) OS (LEFT EYE) Left 07/12/2013 #2 ; PRP (Panretinal Photocoagulation) OS PROSTATECTOMY SUPRAPUBIC SUBTOTAL 06/23/2011 for BPH VITRECTOMY MECHANICAL PARS PLANA Left 11/16/2016 PPV/MP/EL/AFX OS XCAPSL CTRC RMVL INSJ IO LENS PROSTH W/O ECP 02/07/2007 Cataract Removal right XCAPSL CTRC RMVL INSJ IO LENS PROSTH W/O ECP Left 11/16/2016 Cataract Extraction with PC IOL OS ALLERGIES Cortisone and Zestril [Lisinopril] MEDICATIONS insulin glargine (LANTUS SOLOSTAR U-100 INSULIN) 100 unit/mL (3 mL) Inject subcutaneously 23 units daily in the AM insulin lispro (HUMALOG KWIKPEN INSULIN) 100 unit/mL Inject subcutaneously TID meals per SS up to 15 units daily empagliflozin (JARDIANCE) 10 mg tablet Take 1 tablet by mouth daily with breakfast. NIFEdipine ER (PROCARDIA XL) 90 mg 24 hr tablet Take 1 tablet by mouth once daily. dorzolamide-timolol (COSOPT) 22.3-6.8 mg/mL ophthalmic solution Use 1 Drop in both eyes twice daily. Use at 8 AM and 4 PM flash glucose sensor (FREESTYLE DIANNE 2 SENSOR) kit Use one sensor every 14 days, IDDM, E11.42 flash glucose scanning reader (FREESTYLE DIANNE 2 READER) Use continuously to monitor glucose, IDDM,E 11.42 latanoprost (XALATAN) 0.005 % ophthalmic solution INSTILL 1 DROP IN BOTH EYES DAILY AT BEDTIME gabapentin (NEURONTIN) 300 mg capsule Take 1 capsule by mouth three times daily for 180 days. polyethylene glycol 3350 (MIRALAX) 17 gram/dose powder Take 17 g by mouth every other day. sulfamethoxazole-trimethoprim (BACTRIM DS,SEPTRA DS) 800-160 mg per tablet Take by mouth twice daily. meclizine (ANTIVERT) 25 mg tab Take 1 tablet by mouth three times daily as needed. Insulin [place], Disposable, (1ST TIER UNIFINE PENTIPS) 31 gauge x /16 Use as directed 4 times a day. Dx: E11.65 cyclobenzaprine (FLEXERIL) 10 mg tablet Take 1 tablet by mouth twice daily as needed for muscle spasm. losartan (COZAAR) 50 mg tablet Take 1 tablet by mouth once daily. pravastatin (PRAVACHOL) 80 mg tablet Take 1 tablet by mouth once daily. For cholesterol. furosemide (LASIX) 40 mg tablet Take 1 tablet by mouth once daily. promethazine (PHENERGAN) 25 mg tablet Take 1 tablet by mouth every 6 hours as needed. mupirocin (BACTROBAN) 2 % ointment Apply 1 application to affected area three times daily. Lancets lancets Test blood sugar(s) 3 times daily. Dx: Type 2 DM - Uncontrolled E11.65 Insulin: Yes blood sugar diagnostic (BLOOD GLUCOSE TEST) test strip Test blood sugar(s) 3 times daily. Dx: Type 2 DM - Uncontrolled E11.65 Insulin: Yes cholecalciferol (VITAMIN D) 1,000 unit tab tablet Take 1 tablet by mouth once daily. cyanocobalamin (VITAMIN B-12) 1,000 mcg tab Take 1 tablet by mouth once daily. aspirin(ECOTRIN LOW STRENGTH 81 MG TAB) Take by mouth. FAMILY HISTORY Problem Relation Age of Onset Breast Cancer Mother at age 55 COPD Father Black lung Breast Cancer Sister at age 54 Diabetes Brother No Ocular Disease No Family History nothing known of Social History Tobacco Use Smoking status: Former Types: Cigars Smokeless tobacco: Never Tobacco comments: quit 40 + years ago Vaping Use Vaping Use: Never used Substance Use Topics Alcohol use: Yes Comment: rarely, 2-3 glasses red wine per month Drug use: No PHYSICAL EXAM BP 104/64 Pulse 71 Resp 14 Wt 89.8 kg (198 lb) BMI 29.16 kg/m General Appearance: well appearing, in no acute distress, alert Pysch: mood and affect broad and appropriate Lungs: Lungs clear to auscultation. No wheezing, rhonchi, rales. Heart: RRR without murmur, gallop, or rubs. No ectopy Health maintenance reviewed with patient: ADVANCE DIRECTIVE DISCUSSION due on 06/27/2022 DEPRESSION ASSESSMENT due on 06/27/2022 URINE ALBUMIN:CREATININE RATIO due on 09/22/2022 DIABETIC FOOT EXAM due on 12/15/2022 ANNUAL PCP TEAM CHRONIC DISEASE VISIT due on 04/27/2023 HBA1C due on 04/27/2023 DILATED RETINAL EXAM due on 05/05/2023 BP CONTROLLED (<130/80) due on 10/19/2023 LDL CHOLESTEROL due on 10/26/2023 SERUM CREATININE due on 10/26/2023 HEMOGLOBIN/HEMATOCRIT due on 10/26/2023 COLORECTAL CANCER SCREENING due on 11/04/2026 DTAP,TDAP,TD(2 - Td or Tdap) due on 01/13/2028 INFLUENZA Completed HEPATITIS C SCREENING Completed PNEUMOCOCCAL: 65+ Completed SHINGRIX VACCINE Discontinued COVID-19 VACCINE Discontinued DATA REVIEWED: Most recent labs ASSESSMENT/PLAN: 1. Type 2 diabetes mellitus with diabetic polyneuropathy, with long-term current use of insulin (HCC) - ICD9: 250.60, 357.2, V58.67, ICD10: E11.42, Z79.4 (primary diagnosis) - Controlled - Continue current medications - INSULIN GLARGINE (U-100) 100 UNIT/ML (3 ML) SUBCUTANEOUS PEN - INSULIN LISPRO (U-100) 100 UNIT/ML SUBCUTANEOUS PEN - GABAPENTIN 300 MG CAPSULE 2. Essential hypertension - ICD9: 401.9, ICD10: I10 - good control - Continue current medication(s) - Recommended regular aerobic exercise. - Recommend home blood pressure monitoring, to bring results in on next visit - Goal of BP <130/80 3. Stage 3b chronic kidney disease (HCC) - ICD9: 585.3, ICD10: N18.32 - eGFR: Stable - Following with nephrology: Yes - Counseled on avoiding regular use of NSAIDs, adequate hydration, potential risk of IV dye - Recommend maintaining A1c < 7% - Recommend maintaining blood pressure under 130/80 - EMPAGLIFLOZIN 10 MG TABLET 4. Other proteinuria - ICD9: 791.0, ICD10: R80.8 - EMPAGLIFLOZIN 10 MG TABLET 5. Anemia in stage 3 chronic kidney disease, unspecified whether stage 3a or 3b CKD (HCC) - ICD9: 285.21, 585.3, ICD10: N18.30, D63.1 stable 6. Hyperlipidemia, unspecified hyperlipidemia type - ICD9: 272.4, ICD10: E78.5 - suboptimal control - Continue current medication. - encouraged healthy diet and regular exercise Prescription instructions reviewed with patient as applicable. Potential red flag symptoms discussed with the patient. Reviewed appropriate action plan to take if red flag symptoms occur. Patient agreeable to treatment plan. America Mcginnis APRN.CNP documented in this encounterThe [facility]04-[facility] NoteHNO ID: [id number] Author: Jazmine Krishnan, DO Service: ? Author Type: Physician Type: Progress Notes Filed: 10/18/2022 10:57 AM Note Text: [facility] SERVICE DATE: 10/18/2022 SERVICE TIME: 10:56 AM CHIEF COMPLAINT: Mr. West is a 77 year old male with a PMHx of diabetes mellitus typi II and hypertension who presents with chronic kidney disease stage IIIb. Used to follow with Dr. Elam and Madiha Hamm. 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 04/08/2022 - [facility]. No changes to medications. Noted that Jardiance was expensive at that time. Last labs on 04/09/2022 with baseline renal function No complaints this visit= Duration (when): Years. 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 (Hcc) Hyperkalemia 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, With Long-Term Current Use of Insulin (Hcc) Type 2 Diabetes Mellitus With Diabetic Polyneuropathy, With Long-Term Current Use of Insulin (Hcc) Type 2 Diabetes Mellitus With Stage 3 Chronic Kidney Disease, With Long-Term Current Use of Insulin ([facility]) Numbness and Tingling of Right Arm Primary Open Angle Glaucoma (Poag) of Both Eyes, Severe Stage Right Foot Ulcer, Limited to Breakdown of Skin ([facility]) Hypoglycemia Due to Type 2 Diabetes Mellitus ([facility]) MEDICATIONS: NIFEdipine ER (PROCARDIA XL) 90 mg 24 hr tablet Take 1 tablet by mouth once daily. dorzolamide-timolol (COSOPT) 22.3-6.8 mg/mL ophthalmic solution Use 1 Drop in both eyes twice daily. Use at 8 AM and 4 PM insulin glargine (LANTUS SOLOSTAR U-100 INSULIN) 100 unit/mL (3 mL) Inject subcutaneously 23 units daily in the AM flash glucose sensor ([employer] Ada SoftwareSTYLE DIANNE 2 SENSOR) kit Use one sensor every 14 days, IDDM, E11.42 flash glucose scanning reader ([employer] SoftwareSTYLE DIANNE 2 READER) Use continuously to monitor glucose, IDDM, E 11.42 latanoprost (XALATAN) 0.005 % ophthalmic solution INSTILL 1 DROP IN BOTH EYES DAILY AT BEDTIME empagliflozin (JARDIANCE) 10 mg tablet Take 1 tablet by mouth daily with breakfast. insulin lispro (HUMALOG KWIKPEN INSULIN) 100 unit/mL Inject subcutaneously TID meals per SS up to 15 units daily gabapentin (NEURONTIN) 300 mg capsule Take 1 capsule by mouth three times daily for 180 days. polyethylene glycol 3350 (MIRALAX) 17 gram/dose powder Take 17 g by mouth every other day. sulfamethoxazole-trimethoprim (BACTRIM DS,SEPTRA DS) 800-160 mg per tablet Take by mouth twice daily. meclizine (ANTIVERT) 25 mg tab Take 1 tablet by mouth three times daily as needed. Insulin [place], Disposable, (1ST TIER UNIFINE PENTIPS) 31 gauge x 3/16 Use as directed 4 times a day. Dx: E11.65 cyclobenzaprine (FLEXERIL) 10 mg tablet Take 1 tablet by mouth twice daily as needed for muscle spasm. losartan (COZAAR) 50 mg tablet Take 1 tablet by mouth once daily. pravastatin (PRAVACHOL) 80 mg tablet Take 1 tablet by mouth once daily. For cholesterol. furosemide (LASIX) 40 mg tablet Take 1 tablet by mouth once daily. promethazine (PHENERGAN) 25 mg tablet Take 1 tablet by mouth every 6 hours as needed. mupirocin (BACTROBAN) 2 % ointment Apply 1 application to affected area three times daily. Lancets lancets Test blood sugar(s) 3 times daily. Dx: Type 2 DM - Uncontrolled E11.65 Insulin: Yes blood sugar diagnostic (BLOOD GLUCOSE TEST) test strip Test blood sugar(s) 3 times daily. Dx: Type 2 DM - Uncontrolled E11.65 Insulin: Yes cholecalciferol (VITAMIN D) 1,000 unit tab tablet Take 1 tablet by mouth once daily. cyanocobalamin (VITAMIN B-12) 1,000 mcg tab Take 1 tablet by mouth once daily. aspirin(ECOTRIN LOW STRENGTH 81 MG TAB) Take by mouth. ALLERGIES: ALLERGIES Allergen Reactions Cortisone Other: See Comments Shunk real hot, as if someone threw boiling water on him Zestril [Lisinopril] Intolerance ARF, hypokalemia REVIEW OF SYSTEMS: Constitutional: No complaints Cardiovascular: No complaints Genitourinary: No complaints PHYSICAL EXAM: BP 121/71 (BP Site: Right Arm, BP P (more content not included)...[facility]04-24-2023 Instructions* Patient Instructions* Jazmine Krishnan DO - 10/18/2022 10:47 AM EDT Chronic kidney disease stage IIIb secondary to diabetic nephropathy and hypertensive nephrosclerosis Avoid Advil, Motrin (Ibuprofen), Aleve (Naproxen), Mobic (Meloxicam), Voltaren (Diclofenac) and other pain/arthritis medications called NSAIDS. Tylenol or topical voltaren gel if necessary for pain Lab work Tuesday and prior to next visit Follow up with Dr. Krishnan or haydee christina in 6 months. General nephrology recommendations: o Tight glycemic control with A1C < 7.0 o Treat proteinuria with goal urine protein excretion < 500mg/dl o Treat metabolic acidosis and keep serum bicarbonate (CO2) > 20 o Keep serum phosphorus between 3.5-5.5mg/dl o Treat hyperlipidemia with Goal LDL <100mg/dl o Maintain a 2 gram sodium restricted diet o Avoid all nephrotoxic agents including NSAIDs, as above o MRI with gadolinium contrast is safe o Hydration advised prior to CT with iodinated contrast Please bring a complete list of your medications, the dosage and times taken - to every visit. We want to know that ALL of your concerns/needs relevant to this visit- were met today and that we have hopefully exceeded your expectations. You may receive a survey regarding your care today. If you do, please take a few minutes to fill itout and send it back. It will be greatly appreciated. documented in this encounterThe [facility]04-24-[facility]23 History of Present illness Narrative* Jazmine Krishnan DO - 10/18/2022 10:40 AM EDT [facility] SERVICE DATE: 10/18/2022 SERVICE TIME: 10:56 AM CHIEF COMPLAINT: Mr. West is a 77 year old male with a PMHx of diabetes mellitus typi II and hypertension who presents with chronic kidney disease stage IIIb. Used to follow with Dr. Elam and Madiha Hamm. 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 04/08/2022 - [place]. No changes to medications. Noted that Jardiance was expensive at that time. Last labs on 04/09/2022 with baseline renal function No complaints this visit= Duration (when): Years. 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 (Hcc) Hyperkalemia 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 dorzolamide-timolol (COSOPT) 22.3-6.8 mg/mL ophthalmic solution Use 1 Drop in both eyes twice daily. Use at 8 AM and 4 PM insulin glargine (LANTUS SOLOSTAR U-100 INSULIN) 100 unit/mL (3 mL) Inject subcutaneously 23 units daily in the AM flash glucose sensor ([employer] SoftwareSTYLE DIANNE 2 SENSOR) kit Use one sensor every 14 days, IDDM, E11.42 flash glucose scanning reader ([employer] SoftwareSTYLE DIANNE 2 READER) Use continuously to monitor glucose, IDDM,E 11.42 latanoprost (XALATAN) 0.005 % ophthalmic solution INSTILL 1 DROP IN BOTH EYES DAILY AT BEDTIME empagliflozin (JARDIANCE) 10 mg tablet Take 1 tablet by mouth daily with breakfast. insulin lispro (HUMALOG KWIKPEN INSULIN) 100 unit/mL Inject subcutaneously TID meals per SS up to 15 units daily gabapentin (NEURONTIN) 300 mg capsule Take 1 capsule by mouth three times daily for 180 days. polyethylene glycol 3350 (MIRALAX) 17 gram/dose powder Take 17 g by mouth every other day. sulfamethoxazole-trimethoprim (BACTRIM DS,SEPTRA DS) 800-160 mg per tablet Take by mouth twice daily. meclizine (ANTIVERT) 25 mg tab Take 1 tablet by mouth three times daily as needed. Insulin [place], Disposable, (1ST TIER UNIFINE PENTIPS) 31 gauge x 3/16 Use as directed 4 times a day. Dx: E11.65 cyclobenzaprine (FLEXERIL) 10 mg tablet Take 1 tablet by mouth twice daily as needed for muscle spasm. losartan (COZAAR) 50 mg tablet Take 1 tablet by mouth once daily. pravastatin (PRAVACHOL) 80 mg tablet Take 1 tablet by mouth once daily. For cholesterol. furosemide (LASIX) 40 mg tablet Take 1 tablet by mouth once daily. promethazine (PHENERGAN) 25 mg tablet Take 1 tablet by mouth every 6 hours as needed. mupirocin (BACTROBAN) 2 % ointment Apply 1 application to affected area three times daily. Lancets lancets Test blood sugar(s) 3 times daily. Dx: Type 2 DM - Uncontrolled E11.65 Insulin: Yes blood sugar diagnostic (BLOOD GLUCOSE TEST) test strip Test blood sugar(s) 3 times daily. Dx: Type 2 DM - Uncontrolled E11.65 Insulin: Yes cholecalciferol (VITAMIN D) 1,000 unit tab tablet Take 1 tablet by mouth once daily. cyanocobalamin (VITAMIN B-12) 1,000 mcg tab Take 1 tablet by mouth once daily. aspirin(ECOTRIN LOW STRENGTH 81 MG TAB) Take by mouth. ALLERGIES: ALLERGIES Allergen Reactions Cortisone Other: See Comments Shunk real hot, as if someone threw boiling water on him Zestril [Lisinopril] Intolerance ARF, hypokalemia REVIEW OF SYSTEMS: Constitutional: No complaints Cardiovascular: No complaints Genitourinary: No complaints PHYSICAL EXAM: BP 121/71 (BP Site: Right Arm, BP Position: Sitting, BP Cuff Size: Large Adult) Pulse 68 Resp 16 Wt 89.8 kg (198 lb) BMI 29.16 kg/m @BPTRU@ Constitutional:No acute distress, Responsive, Normal habitus, and Well-nourished Neck:Trachea midline No jugular venous distension Cardiovascular:No peripheral edema Regular rate and ryhthm, normal S1 and S2, no murmurs, rubs, or gallops Respiratory:Normal respiratory effort. Lungs clear bilaterally. Abdomen:Soft, non-tender, non-distended. Normal bowel sounds. No hepatosplenomegaly. Psychiatric: Alert and oriented x self, place, time, and setting Normal mood/affect DATA: Diagnostic tests reviewed for today's visit: Glucose (mg/dL) Date Value 04/09/2022 116 06/15/2021 177 Potassium (mmol/L) Date Value 04/09/2022 5.3 06/15/2021 5.0 Sodium (mmol/L) Date Value 04/09/2022 137 06/15/2021 140 Chloride (mmol/L) Date Value 04/09/2022 104 06/15/2021 105 CO2 (mmol/L) Date Value 04/09/2022 26 06/15/2021 25 Creatinine (mg/dL) Date Value 04/09/2022 2.25 06/15/2021 1.78 BUN (mg/dL) Date Value 04/09/2022 31 06/15/2021 24 Anion Gap (mmol/L) Date Value 04/09/2022 7 06/15/2021 10 Calcium (mg/dL) Date Value 06/15/2021 8.9 Calcium, Total (mg/dL) Date Value 04/09/2022 8.9 Protein, Total (g/dL) Date Value 09/03/2020 7.7 Albumin (g/dL) Date Value 04/09/2022 4.1 06/15/2021 4.3 Bilirubin, Total (mg/dL) Date Value 09/03/2020 0.6 Alkaline Phosphatase (U/L) Date Value 09/03/2020 65 AST (U/L) Date Value 09/03/2020 16 ALT (U/L) Date Value 09/03/2020 <5 No results for input(s): COLOR, CLARITY, UGLUC, UBILI, UKET, SPGR, UHB, UPH, UPROT, NITRITES, LEUKEST, UWBC, URBC in the last 8784 hours. ASSESSMENT: Mr. West is a 76 year old male with a PMHx of diabetes mellitus typi II and hypertension who presents with chronic kidney disease stage IIIb. Chronic kidney disease stage IIIb - Etiology secondary to diabetic nephropathy and hypertensive nephrosclerosis - UCPR 0.17, decreased from 0.5 in the setting of Jardiance - UA with 1+ proteinuria 2020 - US kidney/bladder 2016 unremarkable 2. Anemia of renal disease - Hemoglobin at goal last year 3. Secondary hyperparathyroidism - PTH 74 2020, Vitamin D wnl 2020 4. Primary hypertension - Excellent control on current medications Hypertension: - Nifedipine 90 mg daily - Losartan 50 mg daily 5. Diabetic nephropathy PLAN: - Continue current blood pressure medications - Continue Jardiance - Renal labs every 6 months, including today - Follow up in 6 months SIGNATURE: Jazmine Krishnan DO PATIENT NAME: Esvin West . DATE: October 18, 2022 TIME: 10:57 AM OFFICE NUMBER: [phone] CC: PRIMARY CARE PHYSICIAN: Jesse Glover MD documented in this encounterThe [facility]04-12-2023 NoteHNO ID: [id number] Author: Radha Cohn MD Service: ? Author Type: Physician Type: Progress Notes Filed: 10/06/2022 12:01 PM Note Text: Assessment and Plan 1. Primary open angle glaucoma (POAG) of both eyes, severe stage -stable intraocular pressure, as well as orta visual field (HVF) and OCT nerve -component of nerve fiber layer thinning and orta visual field (HVF) changes may be secondary to Diabetes mellitus and prior extensive Panretinal laser photocoagulation (PRP) 2. 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 Return to clinic as soon as possible if increased floaters, flashes, or shadows. -Continue Cosopt twice daily and latanoprost daily in both eyes -continue follow-up Dr. Finnegan as scheduled for retina -Me in 6 months with orta visual field (HVF) 24-2 both eyes / sooner as needed I have confirmed and edited as necessary the relevant ophthalmic history, ROS, and the neuro exam findings as obtained by others. I have seen and examined Esvin West Sr.. I have discussed the case and the management of this patient's care with the Resident/Fellow, if applicable. I also have reviewed and agree with the assessment and plan as stated above and agree with all of its relevant components. Radha Cohn [facility]04-12-2023 Instructions* Patient Instructions* Radha Cohn MD - 10/06/2022 12:00 PM EDT Images from the original note were not included. documented in this encounterThe [facility]04[facility] History of Present illness Narrative* Radha Cohn MD - 10/06/2022 11:51 AM EDT Assessment and Plan 1. Primary open angle glaucoma (POAG) of both eyes, severe stage -stable intraocular pressure, as well as orta visual field (HVF) and OCT nerve -component of nerve fiber layer thinning and orta visual field (HVF) changes may be secondary to Diabetes mellitus and prior extensive Panretinal laser photocoagulation (PRP) 2. 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 Return to clinic as soon as possible if increased floaters, flashes, or shadows. -Continue Cosopt twice daily and latanoprost daily in both eyes -continue follow-up Dr. Finnegan as scheduled for retina -Me in 6 months with orta visual field (HVF) 24-2 both eyes / sooner as needed I have confirmed and edited as necessary the relevant ophthalmic history, ROS, and the neuro exam findings as obtained by others. I have seen and examined Esvin West Sr.. I have discussed the case and the management of this patient's care with the Resident/Fellow, if applicable. I also have reviewed and agree with the assessment and plan as stated above and agree withall of its relevant components. Radha Cohn MD documented in this encounterThe [facility]03-28-2023 Miscellaneous Notes* Telephone Encounter - Madiha Dhaliwal FUNDRAISING DIRECTOR - 09/21/2022 10:53 AM EDT Patient has been identified by name and date of : Pharmacy phones for refill(s): Requested Prescriptions Pending Prescriptions Disp Refills NIFEdipine ER (PROCARDIA XL) 90 mg 24 hr tablet 90 tablet 3 Sig: Take 1 tablet by mouth once daily. Date of last office visit in primary care: 04/27/2022, has appt 10/27/2022 Last 2 Encounter Wt Readings: Date: Wt: 08/13/2022 91 kg (200 lb 9.6 oz) 04/27/2022 91.6 kg (202 lb) Previous labs/tests for medication: Blood Pressure: BUN (mg/dL) Date Value 04/09/2022 31 06/15/2021 24 Sodium (mmol/L) Date Value 04/09/2022 137 06/15/2021 140 Last 1 Encounter BP Readings: Date: BP: 08/13/2022 140/82 Please advise. Thank you. Madiha Dhaliwal LPN documented in this encounterThe [facility]vue Hospital03-21-2023 NoteHNO ID: [id number] Author: Marsha Eric Service: ? Author Type: Physician Type: Progress Notes Filed: 09/14/2022 9:01 AM Note Text: Last saw Dr. Glover: 01/14/22 Subjective: Patient presents to clinic c/o painful toenails. They state that the nails are especially painful with shoe gear and pressure. Patient states that nails left hallux are painful. Patient admits to being diabetic . No other pedal complaints at this time. Patient states no change in medications or medical history since last visit. Objective: Patient presents to clinic ambulating in [facility] Vasc: DP and PT pulses are palpable bilateral. CFT is less than 5 seconds bilateral. Skin temperature is warm to cool proximal to distal bilateral. There is no edema or varicosities noted. Neuro: Protective sensation is intact to the foot and toes when tested with the 5.07 SWM bilateral. Vibratory sensation is decreased at the hallux IPJ bilateral. The hallux is downgoing bilateral. Derm: Nails 1-5 b/l are painful, discolored-yellow, thick, crumbly, dystrophic and with subungal debris. Skin is of normal turgor, texture and hair growth is present bilateral. There are callus to right hallux. no ulcerations, scars, verruca or other lesions noted. Ortho: Muscle strength is 5/5 for all pedal groups tested. Ankle joint DF is decreased with the knee extended with no pain or crepitus noted. 1st MPJ ROM is decreased bilateral. Assessment: (E11.49) Other diabetic neurological complication associated with type 2 diabetes mellitus (HCC) (primary encounter diagnosis) (B35.1) Onychomycosis (M79.674) Pain in toe of right foot (M79.675) Pain in toe of left foot Plan: Patient was seen and evaluated. Nails 1-5 bilateral were debrided in length and thickness. Callus reduced with dremmel Patient was instructed on the continued importance of diabetic foot care along with proper diet and keeping their blood sugar under control to prevent complications. Patient is to RTC in 3-4 months. Marsha Eric [facility]03-21-2023 NoteHNO ID: [id number] Author: Yessica Méndez RN Service: ? Author Type: ? Type: Progress Notes Filed: 09/14/2022 9:01 AM Note Text: Patient presents with: Left Foot - Established Patient, Diabetic Foot Check Right Foot - Established Patient, [facility] History of Present illness Narrative* Marsha Eric - 09/14/2022 8:48 AM EDT Last saw Dr. Glover: 01/14/22 Subjective: Patient presents to clinic c/o painful toenails. They state that the nails are especially painful with shoe gear and pressure. Patient states that nails left hallux are painful. Patient admits to being diabetic . No other pedal complaints at this time. Patient states no change in medications or medical history since last visit. Objective: Patient presents to clinic ambulating in sneakers Vasc: DP and PT pulses are palpable bilateral. CFT is less than 5 seconds bilateral. Skin temperature is warm to cool proximal to distal bilateral. There is no edema or varicosities noted. Neuro: Protective sensation is intact to the foot and toes when tested with the 5.07 SWM bilateral.Vibratory sensation is decreased at the hallux IPJ bilateral. The hallux is downgoing bilateral. Derm: Nails 1-5 b/l are painful, discolored-yellow, thick, crumbly, dystrophic and with subungal debris. Skin is of normal turgor, texture and hair growth is present bilateral. There are callus to right hallux. no ulcerations, scars, verruca or other lesions noted. Ortho: Muscle strength is 5/5 for all pedal groups tested. Ankle joint DF is decreased with the knee extended with no pain or crepitus noted. 1st MPJ ROM is decreased bilateral. Assessment: (E11.49) Other diabetic neurological complication associated with type 2 diabetes mellitus (HCC) (primary encounter diagnosis) (B35.1) Onychomycosis (M79.674) Pain in toe of right foot (M79.675) Pain in toe of left foot Plan: Patient was seen and evaluated. Nails 1-5 bilateral were debrided in length and thickness. Callus reduced with dremmel Patient was instructed on the continued importance of diabetic foot care along with proper diet andkeeping their blood sugar under control to prevent complications. Patient is to RTC in 3-4 months. Marsha Eric DPM * Yessica Méndez RN - 09/14/2022 8:45 AM EDT Patient presents with: Left Foot - Established Patient, Diabetic Foot Check Right Foot - Established Patient, Diabetic Foot Check documented in this encounterThe [facility]03-21-2023 Instructions* Patient Instructions* Marsha Eric - 09/14/2022 8:48 AM EDT Diabetes Foot Care Instructions When you have diabetes, proper foot care is very important. Poor foot care may lead to amputation of a foot or leg. As a person with diabetes, you are more vulnerable to foot problems, because diabetes can damage your nerves and reduce blood flow to your feet. Here are some diabetes foot care tips to follow: Wash and Dry Your Feet Daily Use mild soaps Use warm water Pat your skin dry; do not rub. Thoroughly dry your feet. After washing, use lotion on your feet to prevent cracking. Do not put lotion between your toes. Examine Your Feet Each Day Check the tops and bottoms of your feet. Have someone else look at your feet if you cannot see them. Check for dry, cracked skin. Look for blisters, cuts, scratches, or other sores. Check for redness, increased warmth, or tenderness when touching any area of your feet. Check for ingrown toenails, corns, and calluses. If you get a blister or sore from your shoes, do not pop it. Apply a bandage and wear a differentpair of shoes. Take Care of Your Toenails Cut toenails after bathing, when they are soft. Cut toenails straight across and smooth with a nail file. Avoid cutting into the corners of toes. Do not cut cuticles. If you have neuropathy (or decreased sensation in your feet) a office coordinator receptionist should always cut your toenails. Be Careful When Exercising Walk and exercise in comfortable shoes. Do not exercise when you have open sores on your feet. Protect Your Feet With Shoes and Socks Never go barefoot. Always protect your feet by wearing shoes or hard-soled slippers or footwear. Avoid shoes with high heels and pointed toes. Avoid shoes that expose your toes or heels (such as open-toed shoes or sandals). These types of shoes increase your risk for injury and potential infections. Try on new footwear with the type of socks you usually wear. Do not wear new shoes for more than an hour at a time. Change your socks daily. Look and feel inside your shoes before putting them on to make sure there are no foreign objects orrough areas. Avoid tight socks. Wear natural-fiber socks (cotton, wool, or a cotton-wool blend). Wear special shoes if your health care provider recommends them. Wear shoes/boots that will protect your feet from various weather conditions (cold, moisture, etc.). Make sure your shoes fit properly. If you have neuropathy (nerve damage), you may not notice that your shoes are too tight. Perform the footwear test described below. Footwear Test Use this simple test to see if your shoes fit correctly: Stand on a piece of paper. (Make sure you are standing and not sitting, because your foot changes shape when you stand.) Trace the outline of your foot. Trace the outline of your shoe. Compare the tracings: Is the shoe too narrow? Is your foot crammed into the shoe? The shoe should be at least 1/2 inch longer than your longest toe and as wide as your foot. Proper Shoe Choices The following types of shoes are best for people with diabetes Closed toes and heels Leather uppers without a seam inside At least 1/2 inch extra space at the end of your longest toe Inside of shoe should be soft with no rough areas Outer sole should be made of stiff material Shoes should be at least as wide as your feet Tips for Foot Care in Diabetes Don't wait to treat a minor foot problem if you have diabetes. Follow your health care provider's guidelines and first aid guidelines. Report foot injuries and infections to your health care provider immediately. Check water temperature with your elbow, not your foot. Do not use a heating pad on your feet. Do not cross your legs. Do not self-treat your corns, calluses, or other foot problems. Go to your health care provider or office coordinator receptionist to treat these conditions. documented in this encounterThe [facility]03-02-2023 Miscellaneous Notes* Telephone Encounter - Amanda Acharya RN - 08/26/2022 11:12 AM EST Prescription for Dorzolamide- Timolol sent to local pharmacy 08/23/2022. Receipt confirmed by pharmacy. No request for prior authorization received. Amanda Acharya RN August 26, 2022 11:14 AM * Telephone Encounter - Amanda Acharya RN - 08/20/2022 4:41 PM EST Patient having issues with obtaining. Cosopt (Dorzolamide- Timolol). Have submitted as both name brand and generic. Please advise. Amanda Acharya RN August 20, 2022 4:42 PM * Telephone Encounter - Cristal Evette - 08/20/2022 1:37 PM EST Patient calls to report that his insurance is not wanting to cover it. Please notify patient of another medication. documented in this encounterThe [facility] Hospital02-28-2023 Miscellaneous Notes* Telephone Encounter - Tianna Wyatt Nicholson - 08/24/2022 1:12 PM EST I have two prescriptions for Freestyle Dianne 2 brinell tester and sensor that we were waiting for a fax number to send to [facility]. Called patient and he said he has to use [employer] (Phone ) I called [employer] and the order forms were going to his PCP. I updated information and they are goingto fax us new forms with Chanda's information. documented in this encounterThe [facility]vue Hospital02-17-2023 NoteHNO ID: [id number] Author: Chanda Phillips APRN.SHRIMP CLEANER Service: ? Author Type: Nurse Practitioner Type: Progress Notes Filed: 08/13/2022 11:26 AM Note Text: Reason for Consultation: DM Type 2 Referring Physician: Jesse Glover MD [address] [facility] [id number] HISTORY OF PRESENT ILLNESS Mr. West is a 77 year old male presenting here today for a follow up of DM Type 2. As I recall, he was initially diagnosed with diabetes 1989.He has been on insulin since 2008 LV 01/01/22 A1C today is 6.3 History in addition to include: hypertension, hyperlipidemia, retinopathy, peripheral neuropathy and CKD, BPH, ED, anemia, hyperparathyroidism Fhx of DM in mother, siblings, Maternal Aunt. Under the care of podiatry, nephrology Mild anemia, secondary hyperparathyroidism per nephrology Nephrology started SGLT2 Seeing cardiology in [place]. Denies hx of [place], CVA, stents, CABG/CAD Current diabetes regimen is as follows: lantus 25 units daily in AM jardiance 10 mg daily --per nephrology humalog per SS If Blood Glucose (mg/dL) is < 150 Give 0 units 151-200 Give 2 unit 201-250 Give 3 units 251-300 Give 4 units >301 Give 5 units Previous DM medications: Glimepiride tradjenta--cost Metformin--renal disease humalog 75/25 he is checking his blood glucose continuously with Freestyle Dianne he does bring a log book today for review. LDE Blood Sugar Frequency: *he is concerned about lower BG level in early AM. Freestyle Dianne 14 day download --did not bring in with him today. Hypoglycemia frequency:occasionally; as low as 57. Hypoglycemia awareness: Yes Regarding symptoms of hypoglycemia, he is not experiencing any symptoms such as polyuria, polydipsia, nocturia or rapid weight loss or blurry vision, Overall, the patient has no acute complaints at this time. PAST MEDICAL HISTORY Diagnosis Date Anemia in stage 3 chronic kidney disease (HCC) Background diabetic retinopathy(362.01) 09/18/2008 [facility] eye. Benign paroxysmal positional vertigo 09/28/2021 Cataract of left eye Chronic kidney disease, unspecified CKD (chronic kidney disease) stage 3, GFR 30-59 ml/min ([facility]) 05/26/2017 Coloboma of iris OD Depressive disorder, not elsewhere classified Erectile dysfunction associated with type 2 diabetes mellitus ([facility]) 07/09/2008 Esophageal reflux Essential hypertension, benign Hyperplasia of prostate Macular edema dme od Other and unspecified hyperlipidemia Other specified anemias Other specified gastritis without mention of hemorrhage 09/18/2008 Personal history of colonic polyps 08/04/2016 Primary open angle glaucoma OU Primary open angle glaucoma (POAG) of both eyes, severe stage 04/07/2021 Proliferative diabetic retinopathy(362.02) Pseudophakia of right eye Right foot ulcer, limited to breakdown of skin ([facility]) 04/20/2022 Shoulder pain 09/25/2008 Right. Tubular adenoma of colon 08/10/2016 Type II or unspecified type diabetes mellitus with ophthalmic manifestations, uncontrolled(250.52) 09/18/2008 iddm Unspecified asthma(493.90) Vitreous hemorrhage ([facility]) 04/19/2018 Added automatically from request for surgery [id number] Vitreous hemorrhage of left eye ([facility]) PAST SURGICAL HISTORY Procedure Laterality Date AVASTIN (BEVACIZUMAB) 1.25MG INTRAVITREAL INJECTION OD (RIGHT EYE) Right 04/19/2018 LAST COLONOSCOPY 11/04/2021 COLONOSCOPY FLX DX W/COLLJ SPEC WHEN PFRMD 05/27/2003 Colonoscopy COLONOSCOPY GEN ANES 08/04/2016 COLONOSCOPY W/BIOPSY SINGLE/MULTIPLE 07/25/2013 Repeat due 2017 COLSC FLX W/RMVL OF TUMOR POLYP LESION SNARE TQ 08/04/2016 Repeat 07/2019 ESOPHAGOGASTRODUODENOSCOPY TRANSORAL DIAGNOSTIC 05/27/2003 EGD EYE SURGERY HX Right 05/02/2018 Pars plana vitrectomy, membrane peel, endolaser, and air fluid exchange right eye. LAPAROSCOPY SURG CHOLECYSTECTOMY 03/2003 Cholecystectomy, lap OPEN REPAIR OF ROTATOR CUFF ACUTE 04/24/2009 Rotator cuff repair, Right PANRETINAL PHOTOCOAGULATION (PRP) OD (RIGHT EYE) Right 08/29/2014 LAST ; PRP (Panretinal Photocoagulation) OD PANRETINAL PHOTOCOAGULATION (PRP) OS (LEFT EYE) Left 07/12/2013 #2 ; PRP (Panretinal Photocoagulation) OS PROSTATECTOMY SUPRAPUBIC SUBTOTAL 06/23/2011 for BPH VITRECTOMY MECHANICAL PARS PLANA Left 11/16/2016 PPV/MP/EL/AFX OS XCAPSL CTRC RMVL INSJ IO LENS PROSTH W/O ECP 02/07/2007 Cataract Removal right XCAPSL CTRC RMVL INSJ IO LENS PROSTH W/O ECP Left 11/16/2016 Cataract Extraction with PC IOL OS FAMILY HISTORY Problem Relation Age of Onset Breast Cancer Mother at age 55 COPD Father Black lung Breast Cancer Sister at age 54 Diabetes Brother No Ocular Disease No Family History nothing known of Social History Tobacco Use Smoking status: Former Types: Cigars Smokeless tobacco: Never Tobacco comments: quit 40 + years ago Vaping Use Vaping Use: Never used Substance Use Topics Alcohol use: Yes Comment: rarely, 2 (more content not included)...[facility] 08-04-2022 Miscellaneous Notes* Telephone Encounter - Tianna Schneider Ma - 08/04/2022 10:43 AM EST Called and spoke with PT, expressed understanding Encounter closed * Telephone Encounter - Chanda Phillips APRN.CNP - 08/03/2022 4:12 PM EST Dianne report reviewed He is in range 79 % Avg is 155. Continue as is for now. Thank you, Chanda * Telephone Encounter - Tianna Schneider Ma - 08/02/2022 11:15 AM EST Patient came into the office to have his Dianne downloaded. Report is on your desk to review. documented in this encounterThe [facility] Hospital2023 NoteHNO ID: [id number] Author: Tianna Schneider Ma Service: ? Author Type: ? Type: Progress Notes Filed: 08/02/2022 11:14 AM Note Text: Patient came into office and brought his freestyle Dianne 2 device. It was successfully downloaded and report was printed and given to provider.[facility]2023 History of Present illness Narrative* Tianna Schneider Ma - 08/02/2022 11:11 AM EST Patient came into office and brought his freestyle Dianne 2 device. It was successfully downloaded and report was printed and given to provider. documented in this encounterThe [facility] Hospital01-20-2023 Miscellaneous Notes* Telephone Encounter - Amanda Acharya RN - 07/16/2022 1:39 PM EST After review of the submitted prescription, noted the prescription had CLARKE checked. Has note been in the past. Pended prescription in a refill encounter to Dr. Cohn to approve to see if taking the CLARKE off theprescription will allow it to be filled. Amanda Acharya RN July 16, 2022 1:41 PM * Telephone Encounter - Amanda Acharya RN - 07/16/2022 8:23 AM EST Images from the original note were not included. Dona Torrezey You 9 days ago MB If I cannot locate PA info, the Dorzolamide is covered as alternative, the Timolol Maleate is not * Telephone Encounter - Dona Bergeron - 07/07/2022 12:55 PM EST Spoke with [facility] to find out prior authorization was submitted via cover my meds for Cosopt. No documentation in any system of this being submitted. I had no knowledge of this prior auth until now. Looking into this further to see how and where prior auth was submitted Dona Bergeron July 07, 2022 12:56 PM * Telephone Encounter - Radha Cohn MD - 07/06/2022 10:08 PM EST The alternative is dorzolamide/timolol? That's what was ordered originally. Unless we have to orderthem separate? Would you mind checking Mati or Dona?i'm fine with the alternatives * Telephone Encounter - Varsha Arana Pss - 06/29/2022 3:02 PM EST [facility] is calling stating the dorzolamide-timolol (COSOPT) 22.3-6.8 mg/mL ophthalmic solution is not covered and the alternative TImolo solution, Zolamide, or Zolamide/Timolol please advise the pharmacy documented in this encounterThe [facility] Hospital01-20-2023 Miscellaneous Notes* Telephone Encounter - Amanda Acharya RN - 07/16/2022 1:36 PM EST Noted that CLARKE was checked on original prescription sent. Patient has been on generic Cosopt in past and should not be having issues with the new prescription. Only change noted was the CLARKE. Pended with CLARKE taken out to Dr. Cohn to approve. Amanda Acharya RN July 16, 2022 1:39 PM documented in this encounterThe [facility] Hospital01-03-2023 NoteHNO ID: [id number] Author: Radha Cohn MD Service: ? Author Type: Physician Type: Progress Notes Filed: 06/29/2022 8:54 AM Note Text: Assessment and Plan 1. Primary open angle glaucoma (POAG) of both eyes, severe stage -stable intraocular pressure, as well as orta visual field (HVF) and OCT nerve -component of nerve fiber layer thinning may be secondary to Diabetes mellitus and prior extensive Panretinal laser photocoagulation (PRP) 2. 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 Return to clinic as soon as possible if increased floaters, flashes, or shadows. -Continue Cosopt twice daily and latanoprost daily in both eyes -continue follow-up Dr. Finnegan as scheduled. Me in 3 months with orta visual field (HVF) 24-2 and OCT nerve both eyes / sooner as needed I have confirmed and edited as necessary the relevant ophthalmic history, ROS, and the neuro exam findings as obtained by others. I have seen and examined Esvin West Sr.. I have discussed the case and the management of this patient's care with the Resident/Fellow, if applicable. I also have reviewed and agree with the assessment and plan as stated above and agree with all of its relevant components. Radha Cohn [facility]01-03-2023 History of Present illness Narrative* Radha Cohn MD - 06/29/2022 8:47 AM EST Assessment and Plan 1. Primary open angle glaucoma (POAG) of both eyes, severe stage -stable intraocular pressure, as well as orta visual field (HVF) and OCT nerve -component of nerve fiber layer thinning may be secondary to Diabetes mellitus and prior extensive Panretinal laser photocoagulation (PRP) 2. 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) -no new fluid on OCT -separation of membrane complete, now noted as linear floater left eye 3. 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 Return to clinic as soon as possible if increased floaters, flashes, or shadows. -Continue Cosopt twice daily and latanoprost daily in both eyes -continue follow-up Dr. Finnegan as scheduled. Me in 3 months with orta visual field (HVF) 24-2 and OCT nerve both eyes / sooner as needed I have confirmed and edited as necessary the relevant ophthalmic history, ROS, and the neuro exam findings as obtained by others. I have seen and examined Esvin West Sr.. I have discussed the case and the management of this patient's care with the Resident/Fellow, if applicable. I also have reviewed and agree with the assessment and plan as stated above and agree withall of its relevant components. Radha Cohn MD documented in this encounterThe [facility]vue Hospital12-30-2022 Miscellaneous Notes* Telephone Encounter - Dona Moscoso - 06/25/2022 1:28 PM EST Patient has appointment with Dr. oChn on 06/29/22 documented in this encounterThe [facility]vue Hospital12-21-2022 Instructions* Patient Instructions* Marsha Eric - 06/16/2022 9:08 AM EST Your ulceration remains healed. Just dryness present. Continue with lotion applied daily . Lotions that can be purchased include eucerin, gold clements, vaseline intensive care, julissa's healthy feet Diabetes Foot Care Instructions When you have diabetes, proper foot care is very important. Poor foot care may lead to amputation of a foot or leg. As a person with diabetes, you are more vulnerable to foot problems, because diabetes can damage your nerves and reduce blood flow to your feet. Here are some diabetes foot care tips to follow: Wash and Dry Your Feet Daily Use mild soaps Use warm water Pat your skin dry; do not rub. Thoroughly dry your feet. After washing, use lotion on your feet to prevent cracking. Do not put lotion between your toes. Examine Your Feet Each Day Check the tops and bottoms of your feet. Have someone else look at your feet if you cannot see them. Check for dry, cracked skin. Look for blisters, cuts, scratches, or other sores. Check for redness, increased warmth, or tenderness when touching any area of your feet. Check for ingrown toenails, corns, and calluses. If you get a blister or sore from your shoes, do not pop it. Apply a bandage and wear a differentpair of shoes. Take Care of Your Toenails Cut toenails after bathing, when they are soft. Cut toenails straight across and smooth with a nail file. Avoid cutting into the corners of toes. Do not cut cuticles. If you have neuropathy (or decreased sensation in your feet) a office coordinator receptionist should always cut your toenails. Be Careful When Exercising Walk and exercise in comfortable shoes. Do not exercise when you have open sores on your feet. Protect Your Feet With Shoes and Socks Never go barefoot. Always protect your feet by wearing shoes or hard-soled slippers or footwear. Avoid shoes with high heels and pointed toes. Avoid shoes that expose your toes or heels (such as open-toed shoes or sandals). These types of shoes increase your risk for injury and potential infections. Try on new footwear with the type of socks you usually wear. Do not wear new shoes for more than an hour at a time. Change your socks daily. Look and feel inside your shoes before putting them on to make sure there are no foreign objects orrough areas. Avoid tight socks. Wear natural-fiber socks (cotton, wool, or a cotton-wool blend). Wear special shoes if your health care provider recommends them. Wear shoes/boots that will protect your feet from various weather conditions (cold, moisture, etc.). Make sure your shoes fit properly. If you have neuropathy (nerve damage), you may not notice that your shoes are too tight. Perform the footwear test described below. Footwear Test Use this simple test to see if your shoes fit correctly: Stand on a piece of paper. (Make sure you are standing and not sitting, because your foot changes shape when you stand.) Trace the outline of your foot. Trace the outline of your shoe. Compare the tracings: Is the shoe too narrow? Is your foot crammed into the shoe? The shoe should be at least 1/2 inch longer than your longest toe and as wide as your foot. Proper Shoe Choices The following types of shoes are best for people with diabetes Closed toes and heels Leather uppers without a seam inside At least 1/2 inch extra space at the end of your longest toe Inside of shoe should be soft with no rough areas Outer sole should be made of stiff material Shoes should be at least as wide as your feet Tips for Foot Care in Diabetes Don't wait to treat a minor foot problem if you have diabetes. Follow your health care provider's guidelines and first aid guidelines. Report foot injuries and infections to your health care provider immediately. Check water temperature with your elbow, not your foot. Do not use a heating pad on your feet. Do not cross your legs. Do not self-treat your corns, calluses, or other foot problems. Go to your health care provider or office coordinator receptionist to treat these conditions. documented in [facility]The [facility] History of Present illness Narrative* Marsha Eric - 06/16/2022 8:57 AM EST Initial Office Visit Subjective: This 77 year old male presents to clinic for diabetic foot check. Patient has the following complaints: prior ulceration of right 1st and 2nd toe. Patient presents to clinic for follow-up right hallux and right 2nd toe ulceration. [place] and [place] is now healed. Patient is currently just applying lotion to his feet. He denies any open wounds at this time. Patient admits to being diabetic for 15 years now. Patient -B/T/N in feet at this time. Patient -pain in legs when walking. No other pedal complaints at this time. No change in medications or medical history since last visit. PAIN EVALUATION No data found in the last 1 encounters. Hemoglobin A1C (%) Date Value 09/03/2020 10.7 12/19/2019 7.0 10/09/2019 8.9 04/16/2019 8.5 11/13/2018 8.4 Hemoglobin A1C (POCT) (%) Date Value 01/01/2022 5.7 06/16/2021 5.8 12/30/2020 5.9 PCP: Jesse Glover MD PAST MEDICAL HISTORY Diagnosis Date Anemia in stage 3 chronic kidney disease ([facility]) Background diabetic retinopathy(362.01) 09/18/2008 [facility] eye. Benign paroxysmal positional vertigo 09/28/2021 Cataract of left eye Chronic kidney disease, unspecified CKD (chronic kidney disease) stage 3, GFR 30-59 ml/min ([facility]) 05/26/2017 Coloboma of iris OD Depressive disorder, not elsewhere classified Erectile dysfunction associated with type 2 diabetes mellitus ([facility]) 07/09/2008 Esophageal reflux Essential hypertension, benign Hyperplasia of prostate Macular edema dme od Other and unspecified hyperlipidemia Other specified anemias Other specified gastritis without mention of hemorrhage 09/18/2008 Personal history of colonic polyps 08/04/2016 Primary open angle glaucoma OU Primary open angle glaucoma (POAG) of both eyes, severe stage 04/07/2021 Proliferative diabetic retinopathy(362.02) Pseudophakia of right eye Right foot ulcer, limited to breakdown of skin ([facility]) 04/20/2022 Shoulder pain 09/25/2008 Right. Tubular adenoma of colon 08/10/2016 Type II or unspecified type diabetes mellitus with ophthalmic manifestations, uncontrolled(250.52) 09/18/2008 iddm Unspecified asthma(493.90) Vitreous hemorrhage ([facility]) 04/19/2018 Added automatically from request for surgery [id number] Vitreous hemorrhage of left eye ([facility]) Current Outpatient Medications Medication Sig empagliflozin (JARDIANCE) 10 mg tablet Take 1 tablet by mouth daily with breakfast. insulin glargine (LANTUS SOLOSTAR U-100 INSULIN) 100 unit/mL (3 mL) Inject subcutaneously 25 units daily in the AM insulin lispro (HUMALOG KWIKPEN INSULIN) 100 unit/mL Inject subcutaneously TID meals per SS up to 15 units daily gabapentin (NEURONTIN) 300 mg capsule Take 1 capsule by mouth three times daily for 180 days. polyethylene glycol 3350 (MIRALAX) 17 gram/dose powder Take 17 g by mouth every other day. flash glucose sensor (FREESTYLE DIANNE 14 DAY SENSOR) kit 1 Each every 2 weeks. Diagnoses: ICD10: E11.22, N18.32, Z79.4; E11.42, Z79.4. Sig: Check glucose 4 or more times per day. Patient on multiple insulin doses. meclizine (ANTIVERT) 25 mg tab Take 1 tablet by mouth three times daily as needed. Insulin [place], Disposable, (1ST TIER UNIFINE PENTIPS) 31 gauge x 3/16 Use as directed 4 times a day. Dx: E11.65 cyclobenzaprine (FLEXERIL) 10 mg tablet Take 1 tablet by mouth twice daily as needed for muscle spasm. NIFEdipine ER (PROCARDIA XL) 90 mg 24 hr tablet Take 1 tablet by mouth once daily. losartan (COZAAR) 50 mg tablet Take 1 tablet by mouth once daily. pravastatin (PRAVACHOL) 80 mg tablet Take 1 tablet by mouth once daily. For cholesterol. furosemide (LASIX) 40 mg tablet Take 1 tablet by mouth once daily. promethazine (PHENERGAN) 25 mg tablet Take 1 tablet by mouth every 6 hours as needed. mupirocin (BACTROBAN) 2 % ointment Apply 1 application to affected area three times daily. latanoprost (XALATAN) 0.005 % ophthalmic solution INSTILL 1 DROP IN BOTH EYES DAILY AT BEDTIME Lancets lancets Test blood sugar(s) 3 times daily. Dx: Type 2 DM - Uncontrolled Insulin: Yes blood sugar diagnostic (BLOOD GLUCOSE TEST) test strip Test blood sugar(s) 3 times daily. Dx: Type 2 DM - Uncontrolled Insulin: Yes dorzolamide-timolol (COSOPT) 22.3-6.8 mg/mL ophthalmic solution Use 1 Drop in both eyes twice daily. Use at 8 AM and 4 PM flash glucose scanning reader (FREESTYLE DIANNE 14 DAY READER) Diagnoses: ICD10: E11.22, N18.32, Z79.4; E11.42, Z79.4. Sig: Check glucose 4 or more times per day. Patient on multiple insulin doses. cholecalciferol (VITAMIN D) 1,000 unit tab tablet Take 1 tablet by mouth once daily. cyanocobalamin (VITAMIN B-12) 1,000 mcg tab Take 1 tablet by mouth once daily. aspirin(ECOTRIN LOW STRENGTH 81 MG TAB) Take by mouth. sulfamethoxazole-trimethoprim (BACTRIM DS,SEPTRA DS) 800-160 mg per tablet Take by mouth twice daily. (Patient not taking: No sig reported) No current facility-administered medications for this visit. ALLERGIES Allergen Reactions Cortisone Other: See Comments Shunk real hot, as if someone threw boiling water on him Zestril [Lisinopril] Intolerance ARF, hypokalemia PAST SURGICAL HISTORY Procedure Laterality Date AVASTIN (BEVACIZUMAB) 1.25MG INTRAVITREAL INJECTION OD (RIGHT EYE) Right 04/19/2018 LAST COLONOSCOPY 11/04/2021 COLONOSCOPY FLX DX W/COLLJ SPEC WHEN PFRMD 05/27/2003 Colonoscopy COLONOSCOPY GEN ANES 08/04/2016 COLONOSCOPY W/BIOPSY SINGLE/MULTIPLE 07/25/2013 Repeat due 2017 COLSC FLX W/RMVL OF TUMOR POLYP LESION SNARE TQ 08/04/2016 Repeat 07/2019 ESOPHAGOGASTRODUODENOSCOPY TRANSORAL DIAGNOSTIC 05/27/2003 EGD EYE SURGERY HX Right 05/02/2018 Pars plana vitrectomy, membrane peel, endolaser, and air fluid exchange right eye. LAPAROSCOPY SURG CHOLECYSTECTOMY 03/2003 Cholecystectomy, lap OPEN REPAIR OF ROTATOR CUFF ACUTE 04/24/2009 Rotator cuff repair, Right PANRETINAL PHOTOCOAGULATION (PRP) OD (RIGHT EYE) Right 08/29/2014 LAST ; PRP (Panretinal Photocoagulation) OD PANRETINAL PHOTOCOAGULATION (PRP) OS (LEFT EYE) Left 07/12/2013 #2 ; PRP (Panretinal Photocoagulation) OS PROSTATECTOMY SUPRAPUBIC SUBTOTAL 06/23/2011 for BPH VITRECTOMY MECHANICAL PARS PLANA Left 11/16/2016 PPV/MP/EL/AFX OS XCAPSL CTRC RMVL INSJ IO LENS PROSTH W/O ECP 02/07/2007 Cataract Removal right XCAPSL CTRC RMVL INSJ IO LENS PROSTH W/O ECP Left 11/16/2016 Cataract Extraction with PC IOL OS FAMILY HISTORY Problem Relation Age of Onset Breast Cancer Mother at age 55 COPD Father Black lung Breast Cancer Sister at age 54 Diabetes Brother No Ocular Disease No Family History nothing known of Social History Tobacco Use Smoking status: Former Types: Cigars Smokeless tobacco: Never Tobacco comments: quit 40 + years ago Vaping Use Vaping Use: Never used Substance Use Topics Alcohol use: Yes Comment: rarely, 2-3 glasses red wine per month Drug use: No REVIEW OF SYSTEMS GENERAL: Negative for Malaise, significant weight loss, fever RESPIRATORY: Negative for cough, wheezing and shortness of breath CARDIOVASCULAR: Negative for chest pain, leg swelling and palpitations GI: Negative for abdominal discomfort, blood in stools or black stools and change in bowel habits : Negative for dysuria, frequency and incontinence MUSCULOSKELETAL: Negative for joint pain or swelling, back pain, and muscle pain. SKIN: Negative for lesions, rash, and itching. HEMATOLOGY/LYMPHOLOGY Negative for prolonged bleeding, bruising easily, and swollen nodes. ENDOCRINE: Negative for cold or heat intolerance, polyuria, polydipsia and goiter. NEURO: negative The remainder of the review of systems is noncontributory. Objective: Patient presents to clinic ambulating in [facility] Constitutional: Pt is a well developed 77 year old male who is alert, oriented, cooperative and in no apparent distress. Eyes: Following during examination. No redness or drainage. Respiratory: RR normal and nonlabored. Even breathing. No evidence of distress. Psychology: Patient is engaged during conversation. Normal affect and mood. Does not appear depressed or anxious. Vasc: DP and PT pulses are decreased bilateral. CFT is less than 5 seconds bilateral. Skin temperature is warm to cool proximal to distal bilateral. There is mild edema or varicosities noted. Hair growth absent. Neuro: Protective sensation is decreased to the foot and toes when tested with the 5.07 SWM bilateral. Vibratory sensation is decreased at the hallux bilateral. + Significant neurological defecits. Derm: Inspection and palpation performed. Nails 1-5 b/l are painful, discolored- yellow, thick, crumbly, dystrophic and with subungal debris. Skin is thin, dry, pallor. Hyperkeratosis not present. Prior ulceration of right 1st and 2nd toe is now dry skin. No ulceration present. . NO ulcerations, scars, verruca or other lesions noted. Ortho: Ankle joint DF is full with the knee extended and full with knee flexed. No pain or crepitusnoted. STJ, MTJ ROM are full and free of pain or crepitus. Muscle strength is 5/5 for dorsiflexors,plantarflexors, inverters, everters. Digital deformities include slight hammertoe of right 2nd toe. Assessment: (E11.49) Other diabetic neurological complication associated with type 2 diabetes mellitus (HCC) (primary encounter diagnosis) (M21.41, M21.42) Pes planus of both feet (L84) Callus of foot (B35.1) Onychomycosis (M79.674) Pain in toe of right foot (M79.675) Pain in toe of left foot (R09.89) Diminished pulses in lower extremity Plan: 1. Patient was seen and evaluated. 2. Patient was instructed on the continued importance of diabetic foot care along with proper diet and keeping their blood sugar under control to prevent complications. Instructions given both oral and written. 3. Prior ulceration is healed to right 1st and 2nd toe. No major callus on exam at this time, only dryness. Recommend he use lotion and continue with diabetic shoes. Diabetic shoes ordered 4. Offered hammertoe pad for 2nd toe but he elected to forego this 5. Toenails 1-5 b/l debrided in length and thickness Marsha Eric DPM * Tati Butler RN - 06/16/2022 8:49 AM EST Patient presents with: Right Foot - Established Patient, Ulcer Patient presents for Ulcer to Right Hallux and 2nd toe. Patient states that it began in the beginning of March and he has been following up with the wound center in [place] for it. Wound is healing,but they want him to follow up with [facility]. documented in this encounterThe [facility]12-[facility] Miscellaneous Notes* Telephone Encounter - Amanda Arreguin - 06/01/2022 3:57 PM EST New pharmacy Patient phones requesting refills as follows: Requested Prescriptions Pending Prescriptions Disp Refills empagliflozin (JARDIANCE) 10 mg tablet 30 tablet 5 Sig: Take 1 tablet by mouth daily with breakfast. Please review and advise. Amanda Arreguin documented in this encounterThe [facility]12-02-[facility]22 NoteHNO ID: [id number] Author: Lynn Campbell DPM Service: ? Author Type: Physician Type: Progress Notes Filed: 05/28/2022 9:55 AM Note Text: CHIEF COMPLAINT: right plantar hallux ulcer and RT second toe ulcer DM2 a1c 5.7 neuro DLS 04/07/22 HISTORY OF PRESENT ILLNESS: Patient presents for right plantar hallux ulcer and follow up RT second toe ulcer. Prevoiusly used promogram, having no issues, having no drainage he does not know when it happened due to no feeling and neuropathy. he initially went to ER and finished oral abx course He relates he generally gets a callus in this area. He relates his callus fell off on 04/05/22 and he had underlying wound. He relates he saw his kidney doctor who referred him to the [facility]. He had wound dressed at kidney doctor's office with a salve and bandage that he has left on since appointment earlier this week. He is established with Dr Eric. He goes every 6 months for RC. He has DM shoes from him that he isn't wearing today. Patient has neuropathy with numbness. Patient denies N/F/V/C/CP/SOB. PHYSICAL EXAMINATION: Vascular Exam: BL Foot DP / PT pulses +2/4 CFT less than 3 seconds to digits, skin temp warm to warm from proximal to distal BL Foot Dermatologic Exam: RIGHT plantar lateral hallux wound predebridement measures 0.1x0.1x0.1cm and post 0.2cm 100 granular fibrotic base, no maceration, surrounding callus, no erythema, no purulence, no probe to bone, no malodor, no drainage. Into level of SUBCUTANEOUS TISSUE RT second toe distal tuft lateral is 0.1x0.1x0.1cm and post 0.2cm and 100 granualr no driange, no erythema, no warmth, no deep probing Neurologic Exam: Comments/Other Findings: Vibratory sensations absent BL at the MPJ with tuning fork. Protective sensations absent at the digits BL tested with 5.07 monofilament. sharp and light, and temperature sensations intact bl. Muscle Testing of the Extensors, Flexors, Evertors (peroneals), and Invertors (posterior tibialis) BL leg shows normal 5/5 strength at this time Orthopedic Exam: Additional Orthopedic Findings: RIGHT decreased 1st MPJ and IPJ ROM RIGHT foot contracture of lesser digits DIAGNOSIS: Skin ulcer of right great toe, limited to breakdown of skin Type 2 diabetes mellitus with foot ulcer Type 2 diabetes mellitus with diabetic polyneuropathy Hallux limitus of right foot Hammertoe of right foot Skin ulcer of second toe of right foot, limited to breakdown of skin PLAN AND TREATMENT: ASSESMENT AND PLAN BL Foot and Ankle and Lower extremity Exam and Evaluation carried out with a treatment plan reviewed with the patient and findings discussed with patient including alternatives, benefits, complications and risks. PREVIOUS TESTS / IMAGING / X-RAY EXAM/12/17/21 PVR: RIGHT SIDE Resting right ankle brachial index: 1.36 Right toe brachial index: 1.05 Normal ankle brachial index at rest in the right leg. Normal toe brachial index at rest in the right leg. Right ankle: Normal at rest. LEFT SIDE Resting left ankle brachial index: 1.34 Left toe brachial index: 1.16 Normal ankle brachial index at rest in the left leg. Normal toe brachial index at rest in the left leg. Left ankle: Normal at rest. RT FOOT XRAY reviewed from [facility] IMPRESSION: No radiographic evidence of osteomyelitis. Soft tissue calcification versus foreign body in the plantar soft tissues of the heel. Degenerative change. RIGHT plantar lateral great toe ulcer AND RIGHT second toe ulcer treated with sharp excisional debridement carried out of the wound with non selective sharp excisional debridement past the dermis into SUBCUTANEOUS level with use of curette and 15 scalpel blade. Devitalized tissue removed. We then flushed out the wound with wound wash sterile saline. Area numbed with lidocaine gel if sensate prior. wounds are near healed, can stop collagen and cont to pad and protect until follow up Previously Discussed need to wear DM shoes to offload previously Discussed he should go more frequently than every 6 months to keep callus better controlled to prevent wounds Follow up in 4 weeks, he wants to follow up with me in the office at [facility] and we will start routine dm foot care and callus care. he is happy with plan Skin ulcer of right great toe, limited to breakdown of skin 707.15 L97.511 AND Type 2 diabetes mellitus with foot ulcer 250.80 E11.621 AND Type 2 diabetes mellitus with diabetic polyneuropathy 250.60 E11.42 AND Hallux limitus of right foot 735.8 M20.5X1 AND Hammertoe of right foot 735.4 M20.41 AND Skin ulcer of second toe of right foot, limited to breakdown of skin 707.15 L97.511[id number] History of Present illness Narrative* Lynn Campbell, DPM - 05/28/2022 9:53 AM EST Images from the original note were not included. CHIEF COMPLAINT: right plantar hallux ulcer and RT second toe ulcer DM2 a1c 5.7 neuro DLS 04/07/22 HISTORY OF PRESENT ILLNESS: Patient presents for right plantar hallux ulcer and follow up RT second toe ulcer. Prevoiusly used promogram, having no issues, having no drainage he does not know when it happened due to no feeling and neuropathy. he initially went to ER and finished oral abx course He relates he generally gets a callus in this area. He relates his callus fell off on 04/05/22 and he had underlying wound. He relates he saw his kidney doctor who referred him to the [facility]. He had wound dressed at kidney doctor's office with a salve and bandage that he has left on since appointment earlier this week. He is established with Dr Eric. He goes every 6 months for RC. He has DM shoes from him that heisn't wearing today. Patient has neuropathy with numbness. Patient denies N/F/V/C/CP/SOB. PHYSICAL EXAMINATION: Vascular Exam: BL Foot DP / PT pulses +2/4 CFT less than 3 seconds to digits, skin temp warm to warm from proximal to distal BL Foot Dermatologic Exam: RIGHT plantar lateral hallux wound predebridement measures 0.1x0.1x0.1cm and post 0.2cm 100 granular fibrotic base, no maceration, surrounding callus, no erythema, no purulence, no probe to bone, no malodor, no drainage. Into level of SUBCUTANEOUS TISSUE RT second toe distal tuft lateral is 0.1x0.1x0.1cm and post 0.2cm and 100 granualr no driange, no erythema, no warmth, no deep probing Neurologic Exam: Comments/Other Findings: Vibratory sensations absent BL at the MPJ with tuning fork. Protective sensations absent at the digits BL tested with 5.07 monofilament. sharp and light, and temperature sensations intact bl. Muscle Testing of the Extensors, Flexors, Evertors (peroneals), and Invertors (posterior tibialis) BL leg shows normal 5/5 strength at this time Orthopedic Exam: Additional Orthopedic Findings: RIGHT decreased 1st MPJ and IPJ ROM RIGHT foot contracture of lesser digits DIAGNOSIS: Skin ulcer of right great toe, limited to breakdown of skin Type 2 diabetes mellitus with foot ulcer Type 2 diabetes mellitus with diabetic polyneuropathy Hallux limitus of right foot Hammertoe of right foot Skin ulcer of second toe of right foot, limited to breakdown of skin PLAN AND TREATMENT: ASSESMENT & PLAN BL Foot and Ankle and Lower extremity Exam and Evaluation carried out with a treatment plan reviewed with the patient and findings discussed with patient including alternatives, benefits, complications and risks. PREVIOUS TESTS / IMAGING / X-RAY EXAM/12/17/21 PVR: RIGHT SIDE Resting right ankle brachial index: 1.36 Right toe brachial index: 1.05 Normal ankle brachial index at rest in the right leg. Normal toe brachial index at rest in the right leg. Right ankle: Normal at rest. LEFT SIDE Resting left ankle brachial index: 1.34 Left toe brachial index: 1.16 Normal ankle brachial index at rest in the left leg. Normal toe brachial index at rest in the left leg. Left ankle: Normal at rest. RT FOOT XRAY reviewed from [facility] IMPRESSION: No radiographic evidence of osteomyelitis. Soft tissue calcification versus foreign body in the plantar soft tissues of the heel. Degenerative change. RIGHT plantar lateral great toe ulcer AND RIGHT second toe ulcer treated with sharp excisional debridement carried out of the wound with non selective sharp excisional debridement past the dermis into SUBCUTANEOUS level with use of curette and 15 scalpel blade. Devitalized tissue removed. We then flushed out the wound with wound wash sterile saline. Area numbed with lidocaine gel if sensate prior. wounds are near healed, can stop collagen and cont to pad and protect until follow up Previously Discussed need to wear DM shoes to offload previously Discussed he should go more frequently than every 6 months to keep callus better controlled to prevent wounds Follow up in 4 weeks, he wants to follow up with me in the office at [facility] and we will start routine dm foot care and callus care. he is happy with plan Skin ulcer of right great toe, limited to breakdown of skin 707.15 L97.511 & Type 2 diabetes mellitus with foot ulcer 250.80 E11.621 & Type 2 diabetes mellitus with diabetic polyneuropathy 250.60 E11.42 & Hallux limitus of right foot 735.8 M20.5X1 & Hammertoe of right foot 735.4 M20.41 & Skin ulcer of second toe of right foot, limited to breakdown of skin 707.15 L97.511 documented in this encounterThe [facility]12-01-2022 Instructions* Patient Instructions* Estefania Herrera RN - 05/27/2022 4:07 PM EST WOUND CARE INSTRUCTIONS- Esvin West Sr. Wound location: Right Great Toe & Right Second Toe 1. Wash your hands with soap and water before and after wound care. 2. Gather all supplies needed. 3. Wash wound with wound wash with dial soap and water. Pat dry. (Using it's own towel to dry the wound area) 4. [place] wound and krystyan-wound with betadine. 5. Cover with 4x4 gauze and wrap with 2 conform roll. Secure with tape. Change your dressing: every other day and as needed to keep the dressing dry and intact FOR NEXT TWO WEEKS COMPRESSION : Keep dressing dry and intact until next wound care appointment. Compression wrap mustbe removed if: It becomes wet or soiled If you have numbness or tingling in your foot or toes If you have increased pain If toes become cold or discolored - Avoid sitting with legs in a dependent position or standing for long periods of time. - Attempt to lay flat and elevate your legs above the level of your heart 2-3 times daily, for 30 minutes at a time. - Be sure to continue heel lifts and ankle exercises to mimic writing the alphabet with your foot, as instructed Foot care Many people with diabetes lose the feeling in their feet (neuropathy). Therefore, they might not know they have an injury that can lead to serious problems, such as foot removal (amputation). By taking care of your feet, most serious problems can be prevented. If you have problems checking your ownfeet, have a family member or friend help you. Easy steps to protect your feet: Check your feet every day for: dry or cracked skin, cuts, open sores, blisters, redness, swelling, corns, calluses, or toenail problems. Use a mirror if necessary. Report any problems to your doctor. Keep your feet clean and dry, especially between the toes. If your feet are dry or cracked use a moisturizing lotion at least daily but never between the toes. See your office coordinator receptionist every three months for foot and nail care. Don't go barefoot. Wear shoes or slippers at all times. Wear comfortable shoes that fit well. Check inside your shoes for foreign objects or rough spots before putting on shoes. Always wear socks. Avoid using anything hot, such as heating pads, hot water bottles, hot tubs, or bath water. Check the temperature of bath water with your elbow not your foot. Take your shoes and socks off at every office visit to remind your doctor to check your feet. Also, never tape a dressing directly to the skin on your legs or feet. Instead, use a self-adherentbandage to avoid injuring the skin on your lower extremities If calluses form they can cause wound ulcers to appear under the callus, must be seen by Podiatristevery three months to prevent. Maintain controlled blood sugar, if blood sugar is consistently above 200 this can delay wound healing and aggravate neuropathy. To give your wound the best chance to heal: - Eat three balanced meals daily focusing on the protein - Control swelling by elevating the extremity above your heart - Control your blood sugar. Keep blood sugar less than 200 - Complete your wound care instructions - Vitamin C 500 mg twice daily - Multiple Vitamin Daily - Drink a protein shake daily - Premiere Clear or Glucerna for Diabetic patients and Nepro for Chronic Kidney Disease patients. Contact your Kidney doctor Report any of the following changes [phone] or go to the Emergency Department: Fever or chills Increased drainage Green or yellow drainage Foul odor Increased pain Hardness around the wound Redness, warmth or swelling of the surrounding tissue Color change to the wound PLAN/ORDERS: See Dr. Campbell in her office for regular podiatry care - [address] [facility] in June Continue aggressive nutritional support for optimal wound healing. PRISM for ordering supplies: Moisturize your feet and legs daily, avoiding between your toes Lynn Campbell DPM/mikaela/tr documented in this encounterThe [facility] Nurse Note* Estefania Herrera RN - 05/27/2022 4:07 PM EST Nursing Documentation Pertinent Medical History: long hx of callous, CKD, HTN, DM Wound Etiology according to patient: Callous fell off - wound beneath Patient arrived via: ambulatory with Home Care Company/Nursing Facility: none Consent captured for debridement per Sulma until September 2022 Consent captured for debridement per Lynn Ca until September 2022 Anticoagulant Therapy: ASA 81 ACTIVE CARE PER PROVIDER: Lynn Campbell DPM WOUND ASSESSMENT: Refer to Provider's Wound Assessment Note VASCULAR ASSESSMENT BY PROVIDER: N/per provider CHF History: denies EDEMA: Right foot: trace Right calf: none Left foot: None Left Calf: None Other: N/A MEASUREMENTS: in CM Right Calf: 30.5 Right Ankle: 20.0 Left Calf: 31.5 Left Ankle: 21.5 Length: 49.8 WOUND PHOTOGRAPHY: yes x 1 DEBRIDEMENT PROCEDURE BY PROVIDER: Anesthetic Used: Lidogel 2% applied by Nida Adame RN Wound # 1 and #2 Other procedure: N/A Specimen collected: N/A WOUND TREATMENT PER MD ORDER: Refer to provider's note. Wounds cleansed by mechanical debridement to allow provider to visualize wound base WOUND #1 - LOCATION: Right Hallux - Medial Plantar Surface (Top of callous fell off 04/05/22) Debridement Provider: SubQ Post debridement measurements if applicable: L: 0.1 cm x W: 0.1 cm x D: 0.1 cm WOUND # 2 - LOCATION: Right Second Toe - Formed from burst blister DEBRIDEMENT: SubQ Post debridement measurements if applicable: L: 0.1cm x W: 0.1 cm x D: 0.1 cm Cleansed with: Betadine Applied to krystyna-wound skin: Betadine Applied to wound bed: betadine Covered and secured with: 2x2 gauze and wrap with 2 Conform Other: Single layer of Tubi-executive administrative assistant size D. COMPRESSION: N/A SPECIAL NEEDS: Coordination of care - N/A Emotional support N/A OR set-up N/A Mergers And Acquisitions Manager N/A Incontinence needs N/A DISCHARGED in stable condition to: Home Ambulatory Global surgical period dates if applicable: N/A PLAN/ORDERS: See Dr. Campbell in her office for regular podiatry care - [address] [facility] in June Continue aggressive nutritional support for optimal wound healing. PRISM for ordering supplies: Moisturize your feet and legs daily, avoiding between your toes EDUCATION: The patient/family was instructed how to cleanse the wound(s). Visual demonstration on how to applythe dressing with teach back method. Signs & symptoms of infection were reviewed: Increased redness, swelling, pain, green/yellow drainage, fever and/or chills would all need to be evaluated by a Physician. Patient received typed home-going wound care instructions and has expressed intent to comply. OTHER EDUCATION: reviewed importance of regular podiatry care and reviewed importance of daily footchecks with rationale Education performed regarding lymphedema/edema: Elevation of extremity above the heart for 30 minutes three times daily and as needed Exercise such as writing the ABC's with your toes in the air, walking and/or calf pumps Wearing compression as ordered by provider Diet controlling of sodium as instructed by provider Use of medication to help control edema. UNIVERSAL PROTOCOL / SAFETY CHECKLIST Procedure to be Performed: serial sharp debridement of the Right Great Toe Sign In: 1610 A Moment of CARE was completed. Personnel directly involved with the procedure wore the appropriate PPE (Personal Protective Equipment). Patient/Surrogate Stated/Verified: 1611PATIENT VERIFIED(optional for EMERGENT procedures): Patient name, Date of , Relevant allergies, and The intended procedure Time Out Communication: 1612 Intended patient and procedure match the source documents. Consent documented and matches the intended procedure. Medications required for procedure verified. Sign Out: 1614 SIGN OUT (optional for EMERGENT procedures): All instruments, equipment, possible retained foreign bodies accounted for. Estefania Herrera RN Current HBOT Status: Active or Complete - see screening below WOUND CENTER HYPERBARIC OXYGEN THERAPY SCREENING 1. Is the patient diabetic? (If No, skip to question 5) Yes 2. Does the patient have a lower extremity wound? Yes 3. Is there exposed/involved tendon or bone? No 4. Has the wound been present for 30 days? Yes If Yes to ALL questions above, consult the [facility] 5. Has the patient been diagnosed with osteomyelitis? No 6. Has the patient had a previous skin graft or flap at the wound? No 7. Has the patient had or been offered vascular intervention/evaluation? No 8. Does the patient have a wound at an amputation site? No 9. Has the patient had radiation therapy at the site of the problem? No If Yes to ANY of questions 5-9, [facility] Estefania Herrera RN/alka documented in this encounterThe [facility] NoteHNO ID: [id number] Author: Lynn Campbell DPM Service: ? Author Type: Physician Type: Progress Notes Filed: 05/14/2022 9:23 AM Note Text: CHIEF COMPLAINT: right plantar hallux ulcer and RT second toe ulcer DM2 a1c 5.7 neuro DLS 04/07/22 HISTORY OF PRESENT ILLNESS: Patient presents for right plantar hallux ulcer and follow up RT second toe ulcer. Last visit started promogram and got right foot baseline xray he does not know when it happened due to no feeling and neuropathy. he initially went to ER and finished oral abx course He relates he generally gets a callus in this area. He relates his callus fell off on 04/05/22 and he had underlying wound. He relates he saw his kidney doctor who referred him to the [facility]. He had wound dressed at kidney doctor's office with a salve and bandage that he has left on since appointment earlier this week. He is established with Dr Eric. He goes every 6 months for RC. He has DM shoes from him that he isn't wearing today. Relates history of trauma to right great toe. Notes he started getting callus to plantar right great toe after this incident. Patient has neuropathy with numbness. Patient denies N/F/V/C/CP/SOB. PHYSICAL EXAMINATION: Vascular Exam: BL Foot DP / PT pulses +2/4 CFT less than 3 seconds to digits, skin temp warm to warm from proximal to distal BL Foot Dermatologic Exam: RIGHT plantar lateral hallux wound predebridement measures 0.7x0.1x0.1cm and post 0.2cm 100 granular fibrotic base, no maceration, surrounding callus, no erythema, no purulence, no probe to bone, no malodor, mild serosanginous drainage. Into level of SUBCUTANEOUS TISSUE RT second toe distal tuft lateral is 0.5x0.4x0.1cm and post 0.2cm and 100 granualr mild serosang driange, no erythema, no warmth, no deep probing Neurologic Exam: Comments/Other Findings: Vibratory sensations absent BL at the MPJ with tuning fork. Protective sensations absent at the digits BL tested with 5.07 monofilament. sharp and light, and temperature sensations intact bl. Muscle Testing of the Extensors, Flexors, Evertors (peroneals), and Invertors (posterior tibialis) BL leg shows normal 5/5 strength at this time Orthopedic Exam: Additional Orthopedic Findings: RIGHT decreased 1st MPJ and IPJ ROM RIGHT foot contracture of lesser digits DIAGNOSIS: Skin ulcer of right great toe, limited to breakdown of skin Type 2 diabetes mellitus with foot ulcer Type 2 diabetes mellitus with diabetic polyneuropathy Hallux limitus of right foot Hammertoe of right foot Skin ulcer of second toe of right foot, limited to breakdown of skin PLAN AND TREATMENT: ASSESMENT AND PLAN BL Foot and Ankle and Lower extremity Exam and Evaluation carried out with a treatment plan reviewed with the patient and findings discussed with patient including alternatives, benefits, complications and risks. PREVIOUS TESTS / IMAGING / X-RAY EXAM/12/17/21 PVR: RIGHT SIDE Resting right ankle brachial index: 1.36 Right toe brachial index: 1.05 Normal ankle brachial index at rest in the right leg. Normal toe brachial index at rest in the right leg. Right ankle: Normal at rest. LEFT SIDE Resting left ankle brachial index: 1.34 Left toe brachial index: 1.16 Normal ankle brachial index at rest in the left leg. Normal toe brachial index at rest in the left leg. Left ankle: Normal at rest. RT FOOT XRAY reviewed from [facility] IMPRESSION: No radiographic evidence of osteomyelitis. Soft tissue calcification versus foreign body in the plantar soft tissues of the heel. Degenerative change. RIGHT plantar lateral great toe ulcer AND RIGHT second toe ulcer treated with sharp excisional debridement carried out of the wound with non selective sharp excisional debridement past the dermis into SUBCUTANEOUS level with use of curette and 15 scalpel blade. Devitalized tissue removed. We then flushed out the wound with wound wash sterile saline. Area numbed with lidocaine gel if sensate prior. Discussed importance in offloading, proper nutrition including blood sugar control and getting enough protein and vitamins, infection prevention, proper wound care in wound healing. Also discussed detrimental impact of smoking on healing. Reviewed proper wound care with patient. Dressing was applied today. To watch for signs of infection both local and systemic. These were reviewed with the patient. If seen to contact office or go to ED. To continue wound care consisting of washing the foot with soap and water or vashe solution. Then to apply dressing consisting of betadine, PROMOGRAM, gauze conform Previously Discussed need to wear DM shoes to offload, presents in slippers previously discussed to Keep appointment with Dr Eric. Discussed he should go more frequently than every 6 months to keep callus better controlled to prevent wounds next apt in DEC wounds stable today, no soi, measuring smaller, is near healed CONT pro (more content not included)...[facility] [id number] History of Present illness Narrative* Lynn Campbell DPM - 05/14/2022 9:22 AM EST Images from the original note were not included. CHIEF COMPLAINT: right plantar hallux ulcer and RT second toe ulcer DM2 a1c 5.7 neuro DLS 04/07/22 HISTORY OF PRESENT ILLNESS: Patient presents for right plantar hallux ulcer and follow up RT second toe ulcer. Last visit started promogram and got right foot baseline xray he does not know when it happened due to no feeling and neuropathy. he initially went to ER and finished oral abx course He relates he generally gets a callus in this area. He relates his callus fell off on 04/05/22 and he had underlying wound. He relates he saw his kidney doctor who referred him to the [facility]. He had wound dressed at kidney doctor's office with a salve and bandage that he has left on since appointment earlier this week. He is established with Dr Eric. He goes every 6 months for RC. He has DM shoes from him that heisn't wearing today. Relates history of trauma to right great toe. Notes he started getting callus to plantar right great toe after this incident. Patient has neuropathy with numbness. Patient denies N/F/V/C/CP/SOB. PHYSICAL EXAMINATION: Vascular Exam: BL Foot DP / PT pulses +2/4 CFT less than 3 seconds to digits, skin temp warm to warm from proximal to distal BL Foot Dermatologic Exam: RIGHT plantar lateral hallux wound predebridement measures 0.7x0.1x0.1cm and post 0.2cm 100 granular fibrotic base, no maceration, surrounding callus, no erythema, no purulence, no probe to bone, no malodor, mild serosanginous drainage. Into level of SUBCUTANEOUS TISSUE RT second toe distal tuft lateral is 0.5x0.4x0.1cm and post 0.2cm and 100 granualr mild serosang driange, no erythema, no warmth, no deep probing Neurologic Exam: Comments/Other Findings: Vibratory sensations absent BL at the MPJ with tuning fork. Protective sensations absent at the digits BL tested with 5.07 monofilament. sharp and light, and temperature sensations intact bl. Muscle Testing of the Extensors, Flexors, Evertors (peroneals), and Invertors (posterior tibialis) BL leg shows normal 5/5 strength at this time Orthopedic Exam: Additional Orthopedic Findings: RIGHT decreased 1st MPJ and IPJ ROM RIGHT foot contracture of lesser digits DIAGNOSIS: Skin ulcer of right great toe, limited to breakdown of skin Type 2 diabetes mellitus with foot ulcer Type 2 diabetes mellitus with diabetic polyneuropathy Hallux limitus of right foot Hammertoe of right foot Skin ulcer of second toe of right foot, limited to breakdown of skin PLAN AND TREATMENT: ASSESMENT & PLAN BL Foot and Ankle and Lower extremity Exam and Evaluation carried out with a treatment plan reviewed with the patient and findings discussed with patient including alternatives, benefits, complications and risks. PREVIOUS TESTS / IMAGING / X-RAY EXAM/12/17/21 PVR: RIGHT SIDE Resting right ankle brachial index: 1.36 Right toe brachial index: 1.05 Normal ankle brachial index at rest in the right leg. Normal toe brachial index at rest in the right leg. Right ankle: Normal at rest. LEFT SIDE Resting left ankle brachial index: 1.34 Left toe brachial index: 1.16 Normal ankle brachial index at rest in the left leg. Normal toe brachial index at rest in the left leg. Left ankle: Normal at rest. RT FOOT XRAY reviewed from [facility] IMPRESSION: No radiographic evidence of osteomyelitis. Soft tissue calcification versus foreign body in the plantar soft tissues of the heel. Degenerative change. RIGHT plantar lateral great toe ulcer AND RIGHT second toe ulcer treated with sharp excisional debridement carried out of the wound with non selective sharp excisional debridement past the dermis into SUBCUTANEOUS level with use of curette and 15 scalpel blade. Devitalized tissue removed. We then flushed out the wound with wound wash sterile saline. Area numbed with lidocaine gel if sensate prior. Discussed importance in offloading, proper nutrition including blood sugar control and getting enough protein and vitamins, infection prevention, proper wound care in wound healing. Also discussed detrimental impact of smoking on healing. Reviewed proper wound care with patient. Dressing was applied today. To watch for signs of infection both local and systemic. These were reviewed with the patient. If seen to contact office or go to ED. To continue wound care consisting of washing the foot with soap and water or vashe solution. Then to apply dressing consisting of betadine, PROMOGRAM, gauze conform Previously Discussed need to wear DM shoes to offload, presents in slippers previously discussed to Keep appointment with Dr Eric. Discussed he should go more frequently than every 6 months to keep callus better controlled to prevent wounds next apt in DEC wounds stable today, no soi, measuring smaller, is near healed CONT promogram, can now change every other day went over right foot xray neg Follow up in 2 weeks Skin ulcer of right great toe, limited to breakdown of skin 707.15 L97.511 & Type 2 diabetes mellitus with foot ulcer 250.80 E11.621 & Type 2 diabetes mellitus with diabetic polyneuropathy 250.60 E11.42 & Hallux limitus of right foot 735.8 M20.5X1 & Hammertoe of right foot 735.4 M20.41 & Skin ulcer of second toe of right foot, limited to breakdown of skin 707.15 L97.511 documented in this encounterThe [facility]11[facility] Instructions* Patient Instructions* Benson Ngo RN - 05/13/2022 3:12 PM EST WOUND CARE INSTRUCTIONS- Esvin West Sr. Wound location: Right Great Toe & Right Second Toe 1. Wash your hands with soap and water before and after wound care. 2. Gather all supplies needed. 3. Wash wound with wound wash with dial soap and water. Pat dry. (Using it's own towel to dry the wound area) 4. [place] wound and krystyna-wound with betadine. 5. Apply Promogran (foam like material) into wound bed. Please moisten the Promogran with 1-2 dropsof Vashe to make it easier to apply. 6. Cover with Adaptic (mesh like material) 7. Cover with 4x4 gauze and wrap with 2 conform roll. Secure with tape. 8. Change your dressing: every other day or if needed to keep the dressing dry. Apply Tubi-executive administrative assistant to both legs to help with swelling. Apply in the morning and remove at bedtime. COMPRESSION : Keep dressing dry and intact until next wound care appointment. Compression wrap mustbe removed if: It becomes wet or soiled If you have numbness or tingling in your foot or toes If you have increased pain If toes become cold or discolored - Avoid sitting with legs in a dependent position or standing for long periods of time. - Attempt to lay flat and elevate your legs above the level of your heart 2-3 times daily, for 30 minutes at a time. - Be sure to continue heel lifts and ankle exercises to mimic writing the alphabet with your foot, as instructed - If it becomes necessary to remove the wrap, do so by unwinding it. Apply clean dressing as instructed and notify the wound care center. To give your wound the best chance to heal: - Eat three balanced meals daily focusing on the protein - Control swelling by elevating the extremity above your heart - Control your blood sugar. Keep blood sugar less than 200 - Complete your wound care instructions - Vitamin C 500 mg twice daily - Multiple Vitamin Daily - Drink a protein shake daily - Premiere Clear or Glucerna for Diabetic patients and Nepro for Chronic Kidney Disease patients. Contact your Kidney doctor Report any of the following changes [phone] or go to the Emergency Department: Fever or chills Increased drainage Green or yellow drainage Foul odor Increased pain Hardness around the wound Redness, warmth or swelling of the surrounding tissue Color change to the wound PLAN/ORDERS: Return to the wound center to see Dr. Campbell in 2 -3 weeks - or sooner if a problem. Please contact your PCP about your high blood pressure Continue aggressive nutritional support for optimal wound healing. PRISM for ordering supplies: Visit your office coordinator receptionist every 10-12 weeks for callous control. Lynn Campbell DPM/aristides/BB documented in this encounterThe [facility]11[facility] Nurse Note* Benson Ngo RN - 05/13/2022 3:05 PM EST Nursing Documentation Pertinent Medical History: long hx of callous, CKD, HTN, DM Wound Etiology according to patient: Callous fell off - wound beneath Patient arrived via: ambulatory with Home Care Company/Nursing Facility: none Consent captured for debridement per Sulma until September 2022 Consent captured for debridement per Lynn Ca until September 2022 Anticoagulant Therapy: ASA 81 ACTIVE CARE PER PROVIDER: Lynn Campbell DPM WOUND ASSESSMENT: Refer to Provider's Wound Assessment Note VASCULAR ASSESSMENT BY PROVIDER: N/per provider CHF History: denies EDEMA: Right foot: None Right calf: none Left foot: None Left Calf: None Other: N/A MEASUREMENTS: in CM Right Calf: 32.0 Right Ankle: 23.2 Left Calf: 31.5 Left Ankle: 21.5 Length: 49.8 WOUND PHOTOGRAPHY: yes x 1 DEBRIDEMENT PROCEDURE BY PROVIDER: Anesthetic Used: Lidogel 2% applied by Geraldine Gutierrez RN Wound # 1 and #2 Other procedure: N/A Specimen collected: N/A WOUND TREATMENT PER MD ORDER: Refer to provider's note. Wounds cleansed by mechanical debridement to allow provider to visualize wound base WOUND #1 - LOCATION: Right Hallux - Medial Plantar Surface (Top of callous fell off 04/05/22) Debridement Provider: SubQ Post debridement measurements if applicable: L: 0.7 cm x W: 0.1 cm x D: 0.1 cm Cleansed with: Betadine Applied to krystyna-wound skin: Betadine Applied to wound bed: Promogran, Adaptic Covered and secured with: 2x2 gauze and wrap with 2 Conform Other: Single layer of Tubi-executive administrative assistant size D. WOUND # 2 - LOCATION: Right Second Toe - Formed from burst blister DEBRIDEMENT: SubQ Post debridement measurements if applicable: L: 0.5 cm x W: 0.4 cm x D: 0.1 cm Cleansed with: Betadine Applied to krystyna-wound skin: Betadine Applied to wound bed: Promogran, Adaptic Covered and secured with: 2x2 gauze and wrap with 2 Conform Other: Single layer of Tubi-executive administrative assistant size D. COMPRESSION: Single layer Tubi-executive administrative assistant size D bilateral SPECIAL NEEDS: Coordination of care - Prism for dressing supplies Emotional support N/A OR set-up N/A Mergers And Acquisitions Manager N/A Incontinence needs N/A DISCHARGED in stable condition to: Home Ambulatory Global surgical period dates if applicable: N/A PLAN/ORDERS: Return to the wound center to see Dr. Campbell in 2 -3 weeks - or sooner if a problem. Please contact your PCP about your high blood pressure Continue aggressive nutritional support for optimal wound healing. PRISM for ordering supplies: Visit your office coordinator receptionist every 10-12 weeks for callous control. EDUCATION: The patient/family was instructed how to cleanse the wound(s). Visual demonstration on how to applythe dressing with teach back method. Signs & symptoms of infection were reviewed: Increased redness, swelling, pain, green/yellow drainage, fever and/or chills would all need to be evaluated by a Physician. Patient received typed home-going wound care instructions and has expressed intent to comply. OTHER EDUCATION: Provider discussed healing, regular podiatry visits, need for xray. Education performed regarding lymphedema/edema: Elevation of extremity above the heart for 30 minutes three times daily and as needed Exercise such as writing the ABC's with your toes in the air, walking and/or calf pumps Wearing compression as ordered by provider Diet controlling of sodium as instructed by provider Use of medication to help control edema. UNIVERSAL PROTOCOL / SAFETY CHECKLIST Procedure to be Performed: serial sharp debridement of the Right Great Toe Sign In: 1514 A Moment of CARE was completed. Personnel directly involved with the procedure wore the appropriate PPE (Personal Protective Equipment). Patient/Surrogate Stated/Verified: PATIENT VERIFIED(optional for EMERGENT procedures): Patient name, Date of , Relevant allergies, and The intended procedure Time Out Communication: 1516 Intended patient and procedure match the source documents. Consent documented and matches the intended procedure. No relevant labs, photos, and/or imaging studies were applicable for review. Sign Out: 1535 SIGN OUT (optional for EMERGENT procedures): No specimen collected. Current HBOT Status: Active or Complete - see screening below WOUND CENTER HYPERBARIC OXYGEN THERAPY SCREENING 1. Is the patient diabetic? (If No, skip to question 5) Yes 2. Does the patient have a lower extremity wound? Yes 3. Is there exposed/involved tendon or bone? No 4. Has the wound been present for 30 days? Yes If Yes to ALL questions above, consult the Hyperbaric Center 5. Has the patient been diagnosed with osteomyelitis? No 6. Has the patient had a previous skin graft or flap at the wound? No 7. Has the patient had or been offered vascular intervention/evaluation? No 8. Does the patient have a wound at an amputation site? No 9. Has the patient had radiation therapy at the site of the problem? No If Yes to ANY of questions 5-9, consult the Hyperbaric Center Benson Ngo RN /BB [facility] History of Present illness Narrative* Mychal Finnegan MD - 05/05/2022 11:35 AM EST 1. Type 2, Insulin dependent Diabetes Mellitus - Hba1c = Hemoglobin A1C (%) Date Value 09/03/2020 10.7 Hemoglobin A1C (POCT) (%) Date Value 01/01/2022 5.7 - Stressed blood pressure and blood sugar control and close follow-up with PCP/police academy instructor 2. Q Proliferative diabetic retinopathy Both Eyes - RIGHT: - s/p Panretinal laser photocoagulation #5 (last 08/29/14, 08/08/14, 10/04/13, 07/05/13, 04/05/13) - s/p Avastin #3 (last 04/19/18, 03/23/18, 02/17/17) - s/p Pars plana vitrectomy/EL (05/02/18) - Vision better - Since VA stable and IRF not affecting central vision, will continue to observe - LEFT: - s/p Panretinal laser photocoagulation #2 (07/12/13, 03/29/13) - s/p Phaco/PCIOL/PPV/MP/EL/FAx (11/16/16) - OCT with Dr Cohn is stable, no anti-VEGF needed - Both eyes are stable - Plan = Observe 4. Pseudophakia Both eyes - s/p Phaco/PCIOL by Dr Ciaran Long right eye - Combined case as above 11/16/16 left 5. Iris Coloboma Right eye 6. Primary open angle glaucoma Both Eyes - IOP ok - Followed by Dr. Cohn, continue timolol and latanoprost I have confirmed and edited as necessary [...] with all of its relevant components on 05/05/2022 Mychal Finnegan MD [facility] Chair of Ophthalmology Research Professor of Ophthalmology, [facility], [facility] documented in this encounterThe [facility]11[facility] Miscellaneous Notes* Telephone Encounter - Pham Scherer RN - 04/29/2022 10:56 AM EDT Patient calls and notified of provider instructions. Patient voices understanding. Pham Scherer RN * Telephone Encounter - Varsha Chester RN - 04/29/2022 8:18 AM EDT Message left on patient's voicemail to call PCP office and ask for a nurse for provider's message. Varsha Chester RN * Telephone Encounter - Jesse Glover MD - 04/28/2022 6:32 PM EDT The concern is diarrhea causing dehydration and worsening kidney failure. That is why I said take every other day. He should stop if he has side effects including nausea, diarrhea. If his constipation is managed taking 1-2 times per week, that is even better. * Telephone Encounter - Varsha Chester RN - 04/28/2022 9:39 AM EDT Patient reports he saw Dr. Glover yesterday and was ordered to take miralax for his bowels. He states he has noted on the miralax bottle that patients with kidney disease should not take the medication. Patient reports he has kidney disease and asking if this is safe for him to take? Please advise. Thank you. documented in this encounterThe [facility]11[facility] Miscellaneous Notes* Telephone Encounter - Tianna Schneider Ma - 04/28/2022 3:09 PM EDT Called and spoke with patient and he will call back to schedule.It is to far off for him. CLOSED * Telephone Encounter - Chanda Phillips APRN.CNP - 04/28/2022 12:31 PM EDT Dianne reviewed. In range 82% High 19% Very high 0% Low 0% Very low 0% Avg glucose 149 Estimated A1C 6.9. BG is controlled overnight. Rises during the day and his about 180 on average after dinner Please advise patient to continue current insulin doses at this time. Follow up June. Thank you * Telephone Encounter - Tianna Schneider Ma - 04/28/2022 11:47 AM EDT Blood sugar readings on docs desk for review. Please advise, thanks. documented in this encounterThe [facility]11[facility] History of Present illness Narrative* Tianna Schneider Ma - 04/28/2022 11:29 AM EDT Patient came in and had his Dexcom downloaded which was successful. documented in this encounterThe [facility]11[facility] History of Present illness Narrative* Roz Segovia LPN - 04/27/2022 9:56 AM EDT Printed rx for gabapentin was faxed to the pharmacy at [phone] as the rx printed when the provider signed. * Jesse Glover MD - 04/27/2022 9:18 AM EDT This note was created using [employer]. Subjective Esvin West Sr. is a 77 year old male. His hypertension was better. Nephrology was monitoring his kidney function and potassium. Diabetes was better controlled and monitored by endocrinology. He wasbeing treated for right toe ulcers. Review of Systems Constitutional: Negative. Respiratory: Negative. Cardiovascular: Negative. Gastrointestinal: Positive for constipation. Since starting Jardiance Musculoskeletal: Positive for arthralgias. 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, Mild Stage Secondary Renal Hyperparathyroidism (Hcc) Hyperkalemia 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, With Long-Term Current Use of Insulin ([facility]) Punctate Keratitis, Bilateral Pseudophakia of Both Eyes Type 2 Diabetes Mellitus With Diabetic Polyneuropathy, With Long-Term Current Use of Insulin ([facility]) Type 2 Diabetes Mellitus With Stage 3 Chronic Kidney Disease, With Long-Term Current Use of Insulin([facility]) Numbness and Tingling of Right Arm Primary Open Angle Glaucoma (Poag) of Both Eyes, Severe Stage Right Foot Ulcer, Limited to Breakdown of Skin ([facility]) Current Outpatient Medications Medication Sig sulfamethoxazole-trimethoprim (BACTRIM DS,SEPTRA DS) 800-160 mg per tablet Take by mouth twice daily. cephALEXin (KEFLEX) 500 mg capsule Take 500 mg by mouth every 6 hours. empagliflozin (JARDIANCE) 10 mg tablet Take 1 tablet by mouth daily with breakfast. meclizine (ANTIVERT) 25 mg tab Take 1 tablet by mouth three times daily as needed. flash glucose sensor (FREESTYLE DIANNE 14 DAY SENSOR) kit 1 Each every 2 weeks. Diagnoses: ICD10: E11.22, N18.32, Z79.4; E11.42, Z79.4. Sig: Check glucose 4 or more times per day. Patient on multiple insulin doses. Insulin [place], Disposable, (1ST TIER UNIFINE PENTIPS) 31 gauge x 3/16 Use as directed 4 times a day. Dx: cyclobenzaprine (FLEXERIL) 10 mg tablet Take 1 tablet by mouth twice daily as needed for muscle spasm. insulin glargine (LANTUS SOLOSTAR U-100 INSULIN) 100 unit/mL (3 mL) Inject subcutaneously 25 units daily in the AM insulin lispro (HUMALOG KWIKPEN INSULIN) 100 unit/mL Inject subcutaneously TID meals per SS up to 15 units daily NIFEdipine ER (PROCARDIA XL) 90 mg 24 hr tablet Take 1 tablet by mouth once daily. losartan (COZAAR) 50 mg tablet Take 1 tablet by mouth once daily. pravastatin (PRAVACHOL) 80 mg tablet Take 1 tablet by mouth once daily. For cholesterol. furosemide (LASIX) 40 mg tablet Take 1 tablet by mouth once daily. gabapentin (NEURONTIN) 300 mg capsule Take 1 capsule by mouth three times daily for 180 days. promethazine (PHENERGAN) 25 mg tablet Take 1 tablet by mouth every 6 hours as needed. mupirocin (BACTROBAN) 2 % ointment Apply 1 application to affected area three times daily. latanoprost (XALATAN) 0.005 % ophthalmic solution INSTILL 1 DROP IN BOTH EYES DAILY AT BEDTIME Lancets lancets Test blood sugar(s) 3 times daily. Dx: Type 2 DM - Uncontrolled Insulin: Yes blood sugar diagnostic (BLOOD GLUCOSE TEST) test strip Test blood sugar(s) 3 times daily. Dx: Type 2 DM - Uncontrolled Insulin: Yes dorzolamide-timolol (COSOPT) 22.3-6.8 mg/mL ophthalmic solution Use 1 Drop in both eyes twice daily. Use at 8 AM and 4 PM flash glucose scanning reader ([employer]vanteq DIANNE 14 DAY READER) Diagnoses: ICD10: E11.22, N18.32, Z79.4; E11.42, Z79.4. Sig: Check glucose 4 or more times per day. Patient on multiple insulin doses. cholecalciferol (VITAMIN D) 1,000 unit tab tablet Take 1 tablet by mouth once daily. cyanocobalamin (VITAMIN B-12) 1,000 mcg tab Take 1 tablet by mouth once daily. aspirin(ECOTRIN LOW STRENGTH 81 MG TAB) Take by mouth. gabapentin (NEURONTIN) 300 mg capsule Take 1 capsule by mouth three times daily for 10 days. No current facility-administered medications for this visit. Objective BP 130/68 (BP Site: Right Arm, BP Position: Sitting, BP Cuff Size: Large Adult) Pulse 60 Temp 36 C (96.8 F) (Temporal) Resp 18 Wt 91.6 kg (202 lb) BMI 28.17 kg/m Physical Exam Constitutional: Appearance: He is not ill-appearing. HENT: Head: Normocephalic. Cardiovascular: Rate and Rhythm: Normal rate and regular rhythm. Heart sounds: No murmur heard. No gallop. Pulmonary: Breath sounds: Normal breath sounds. No wheezing or rales. Abdominal: General: There is no distension. Palpations: Abdomen is soft. Tenderness: There is no abdominal tenderness. Musculoskeletal: Right lower leg: No edema. Left lower leg: No edema. Neurological: Mental Status: He is alert. Gait: Gait normal. Component Latest Ref Rng & Units 04/09/2022 Albumin 3.9 - 4.9 g/dL 4.1 Calcium 8.5 - 10.2 mg/dL 8.9 Phosphorus 2.7 - 4.8 mg/dL 3.6 Glucose 74 - 99 mg/dL 116 (H) BUN 9 - 24 mg/dL 31 (H) Creatinine 0.73 - 1.22 mg/dL 2.25 (H) Sodium 136 - 144 mmol/L 137 Potassium 3.7 - 5.1 mmol/L 5.3 (H) Chloride 97 - 105 mmol/L 104 CO2 22 - 30 mmol/L 26 Anion Gap 9 - 18 mmol/L 7 (L) eGFR >=60 mL/min/1.73m 30 (L) Assessment and Plan 1. 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 - ICD9: 250.50, 362.02, V58.67, ICD10: E11.3593, Z79.4 (primary diagnosis) Continue medications. - INSULIN GLARGINE (U-100) 100 UNIT/ML (3 ML) SUBCUTANEOUS PEN - INSULIN LISPRO (U-100) 100 UNIT/ML SUBCUTANEOUS PEN - COMP METABOLIC PANEL - LIPID PANEL BASIC - HGB A1C - ALBUMIN/CREAT RATIO RND UR - FREESTYLE DIANNE 14 DAY SENSOR KIT 2. Type 2 diabetes mellitus with diabetic polyneuropathy, with long-term current use of insulin ([facility]) - ICD9: 250.60, 357.2, V58.67, ICD10: E11.42, Z79.4 Continue medications. - INSULIN GLARGINE (U-100) 100 UNIT/ML (3 ML) SUBCUTANEOUS PEN - INSULIN LISPRO (U-100) 100 UNIT/ML SUBCUTANEOUS PEN - GABAPENTIN 300 MG CAPSULE - COMP METABOLIC PANEL - LIPID PANEL BASIC - HGB A1C - ALBUMIN/CREAT RATIO RND UR - FREESTYLE DIANNE 14 DAY SENSOR KIT 3. Type 2 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 disease, with long-term current use of insulin, unspecified whether stage 3a or 3b CKD ([facility]) - ICD9: 250.40, 585.3, V58.67, ICD10: E11.22, N18.30, Z79.4 Continue medications. - INSULIN GLARGINE (U-100) 100 UNIT/ML (3 ML) SUBCUTANEOUS PEN - INSULIN LISPRO (U-100) 100 UNIT/ML SUBCUTANEOUS PEN - FREESTYLE DIANNE 14 DAY SENSOR KIT 4. Need for influenza vaccination - ICD9: V04.81, ICD10: Z23 - INFLUENZA SEASONAL QUADRIVALENT HIGH DOSE AGE 65+ 5. Constipation, unspecified constipation type - ICD9: 564.00, ICD10: K59.00 Take every other day. - POLYETHYLENE GLYCOL 3350 17 GRAM/DOSE ORAL POWDER Jesse Glover MD documented in this encounterThe [facility] Evaluation note* Diagnosis Type 2 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 disease, with long-term current use of insulin, unspecified whether stage 3a or 3b CKD (HCC) Type 2 diabetes mellitus with diabetic polyneuropathy, with long-term current use of insulin (HCC) Need for influenza vaccination Need for prophylactic vaccination and inoculation against influenza Constipation, unspecified constipation type documented in [facility] encounter [facility] NoteHNO ID: [id number] Author: Lynn Campbell DPM Service: ? Author Type: Physician Type: Progress Notes Filed: 04/26/2022 4:12 PM Note Text: CHIEF COMPLAINT: right plantar hallux ulcer and RT second toe ulcer DM2 a1c 5.7 neuro DLS 04/07/22 HISTORY OF PRESENT ILLNESS: Patient presents for right plantar hallux ulcer and follow up RT second toe ulcer, he does not know when it happened due to no feeling and neuropathy. he initially went to ER and finished oral abx course and here for check He relates he generally gets a callus in this area. He relates his callus fell off on 04/05/22 and he had underlying wound. He relates he saw his kidney doctor who referred him to the [facility]. He had wound dressed at kidney doctor's office with a salve and bandage that he has left on since appointment earlier this week. He is established with Dr Eric. He goes every 6 months for RC. He has DM shoes from him that he isn't wearing today. Relates history of trauma to right great toe. Notes he started getting callus to plantar right great toe after this incident. Patient has neuropathy with numbness. Patient denies N/F/V/C/CP/SOB. PHYSICAL EXAMINATION: Vascular Exam: BL Foot DP / PT pulses +2/4 CFT less than 3 seconds to digits, skin temp warm to warm from proximal to distal BL Foot Dermatologic Exam: RIGHT plantar lateral hallux wound predebridement measures 0.9x0.4x0.1cm and post 0.2cm 100 granular fibrotic base, surrounding maceration, surrounding slough, no erythema, no purulence, no probe to bone, no malodor, moderate serosanginous drainage. Into level of SUBCUTANEOUS TISSUE RT second toe distal tuft lateral is 0.7x0.7x0.1cm and post 0.2cm and 100 granualr mild serosang driange, no erythema, no warmth, no deep probing Neurologic Exam: Comments/Other Findings: Vibratory sensations absent BL at the MPJ with tuning fork. Protective sensations absent at the digits BL tested with 5.07 monofilament. sharp and light, and temperature sensations intact bl. Muscle Testing of the Extensors, Flexors, Evertors (peroneals), and Invertors (posterior tibialis) BL leg shows normal 5/5 strength at this time Orthopedic Exam: Additional Orthopedic Findings: RIGHT decreased 1st MPJ and IPJ ROM RIGHT foot contracture of lesser digits DIAGNOSIS: Skin ulcer of right great toe, limited to breakdown of skin Type 2 diabetes mellitus with foot ulcer Type 2 diabetes mellitus with diabetic polyneuropathy Hallux limitus of right foot Hammertoe of right foot Skin ulcer of second toe of right foot, limited to breakdown of skin PLAN AND TREATMENT: ASSESMENT AND PLAN BL Foot and Ankle and Lower extremity Exam and Evaluation carried out with a treatment plan reviewed with the patient and findings discussed with patient including alternatives, benefits, complications and risks. PREVIOUS TESTS / IMAGING / X-RAY EXAM/12/17/21 PVR: RIGHT SIDE Resting right ankle brachial index: 1.36 Right toe brachial index: 1.05 Normal ankle brachial index at rest in the right leg. Normal toe brachial index at rest in the right leg. Right ankle: Normal at rest. LEFT SIDE Resting left ankle brachial index: 1.34 Left toe brachial index: 1.16 Normal ankle brachial index at rest in the left leg. Normal toe brachial index at rest in the left leg. Left ankle: Normal at rest. RIGHT plantar lateral great toe ulcer AND RIGHT second toe ulcer treated with sharp excisional debridement carried out of the wound with non selective sharp excisional debridement past the dermis into SUBCUTANEOUS level with use of curette and 15 scalpel blade. Devitalized tissue removed. We then flushed out the wound with wound wash sterile saline. Area numbed with lidocaine gel if sensate prior. Discussed importance in offloading, proper nutrition including blood sugar control and getting enough protein and vitamins, infection prevention, proper wound care in wound healing. Also discussed detrimental impact of smoking on healing. Reviewed proper wound care with patient. Dressing was applied today. To watch for signs of infection both local and systemic. These were reviewed with the patient. If seen to contact office or go to ED. To continue wound care consisting of washing the foot with soap and water or vashe solution. Then to apply dressing consisting of betadine, PROMOGRAM, gauze conform Previously Discussed need to wear DM shoes to offload, presents in slippers previously discussed to Keep appointment with Dr Eric. Discussed he should go more frequently than every 6 months to keep callus better controlled to prevent wounds next apt in DEC wounds stable today, no soi RX promogram, can now change every other day RX RT foot xray for baseline Follow up in 2 weeks Skin ulcer of right great toe, limited to breakdown of skin 707.15 L97.511 AND Type 2 diabetes mellitus with foot ulcer 250.80 E11.621 AND Type 2 diabetes melli (more content not included)...[facility] 04-26-2022 NoteHNO ID: [id number] Author: BRADFORD Lo Service: Radiology Author Type: Technologist Type: Progress Notes Filed: 04/26/2022 3:52 PM Note Text: Radiology Service Progress Note PATIENT NAME: Esvin West Sr. DATE OF SERVICE: April 26, 2022 TIME: 3:52 PM PATIENT IDENTITY VERIFICATION COMPLETED USING TWO (2) IDENTIFIERS: Name and Date of confirmed by patient verbally. FALL SCREENING: Has the patient had 2 falls in the last year or 1 fall with injury or currently using an Ambulatory Assistive Device (Walker, Cane, Wheelchair, Crutches, etc.)? No PATIENT GENDER DATA: Male PATIENT RELEVANT IMPLANT DATA REVIEWED: Not Applicable RADIOLOGY DEPARTMENT: General X-ray: Exam(s) Completed: Lower Extremity X-Ray(s): Foot, Right PERIPHERAL IV DATA: Not applicable SIGNED BY: BRADFORD Lo April 26, 2022 3:52 PMLakehealth Tripoint Medical [id number] History of Present illness Narrative* Lynn Campbell DPM - 04/26/2022 4:11 PM EDT Images from the original note were not included. CHIEF COMPLAINT: right plantar hallux ulcer and RT second toe ulcer DM2 a1c 5.7 neuro DLS 04/07/22 HISTORY OF PRESENT ILLNESS: Patient presents for right plantar hallux ulcer and follow up RT second toe ulcer, he does not knowwhen it happened due to no feeling and neuropathy. he initially went to ER and finished oral abx course and here for check He relates he generally gets a callus in this area. He relates his callus fell off on 04/05/22 and he had underlying wound. He relates he saw his kidney doctor who referred him to the [facility]. He had wound dressed at kidney doctor's office with a salve and bandage that he has left on since appointment earlier this week. He is established with Dr Eric. He goes every 6 months for RC. He has DM shoes from him that heisn't wearing today. Relates history of trauma to right great toe. Notes he started getting callus to plantar right great toe after this incident. Patient has neuropathy with numbness. Patient denies N/F/V/C/CP/SOB. PHYSICAL EXAMINATION: Vascular Exam: BL Foot DP / PT pulses +2/4 CFT less than 3 seconds to digits, skin temp warm to warm from proximal to distal BL Foot Dermatologic Exam: RIGHT plantar lateral hallux wound predebridement measures 0.9x0.4x0.1cm and post 0.2cm 100 granular fibrotic base, surrounding maceration, surrounding slough, no erythema, no purulence, no probe to bone, no malodor, moderate serosanginous drainage. Into level of SUBCUTANEOUS TISSUE RT second toe distal tuft lateral is 0.7x0.7x0.1cm and post 0.2cm and 100 granualr mild serosang driange, no erythema, no warmth, no deep probing Neurologic Exam: Comments/Other Findings: Vibratory sensations absent BL at the MPJ with tuning fork. Protective sensations absent at the digits BL tested with 5.07 monofilament. sharp and light, and temperature sensations intact bl. Muscle Testing of the Extensors, Flexors, Evertors (peroneals), and Invertors (posterior tibialis) BL leg shows normal 5/5 strength at this time Orthopedic Exam: Additional Orthopedic Findings: RIGHT decreased 1st MPJ and IPJ ROM RIGHT foot contracture of lesser digits DIAGNOSIS: Skin ulcer of right great toe, limited to breakdown of skin Type 2 diabetes mellitus with foot ulcer Type 2 diabetes mellitus with diabetic polyneuropathy Hallux limitus of right foot Hammertoe of right foot Skin ulcer of second toe of right foot, limited to breakdown of skin PLAN AND TREATMENT: ASSESMENT & PLAN BL Foot and Ankle and Lower extremity Exam and Evaluation carried out with a treatment plan reviewed with the patient and findings discussed with patient including alternatives, benefits, complications and risks. PREVIOUS TESTS / IMAGING / X-RAY EXAM/12/17/21 PVR: RIGHT SIDE Resting right ankle brachial index: 1.36 Right toe brachial index: 1.05 Normal ankle brachial index at rest in the right leg. Normal toe brachial index at rest in the right leg. Right ankle: Normal at rest. LEFT SIDE Resting left ankle brachial index: 1.34 Left toe brachial index: 1.16 Normal ankle brachial index at rest in the left leg. Normal toe brachial index at rest in the left leg. Left ankle: Normal at rest. RIGHT plantar lateral great toe ulcer AND RIGHT second toe ulcer treated with sharp excisional debridement carried out of the wound with non selective sharp excisional debridement past the dermis into SUBCUTANEOUS level with use of curette and 15 scalpel blade. Devitalized tissue removed. We then flushed out the wound with wound wash sterile saline. Area numbed with lidocaine gel if sensate prior. Discussed importance in offloading, proper nutrition including blood sugar control and getting enough protein and vitamins, infection prevention, proper wound care in wound healing. Also discussed detrimental impact of smoking on healing. Reviewed proper wound care with patient. Dressing was applied today. To watch for signs of infection both local and systemic. These were reviewed with the patient. If seen to contact office or go to ED. To continue wound care consisting of washing the foot with soap and water or vashe solution. Then to apply dressing consisting of betadine, PROMOGRAM, gauze conform Previously Discussed need to wear DM shoes to offload, presents in slippers previously discussed to Keep appointment with Dr Eric. Discussed he should go more frequently than every 6 months to keep callus better controlled to prevent wounds next apt in DEC wounds stable today, no soi RX promogram, can now change every other day RX RT foot xray for baseline Follow up in 2 weeks Skin ulcer of right great toe, limited to breakdown of skin 707.15 L97.511 & Type 2 diabetes mellitus with foot ulcer 250.80 E11.621 & Type 2 diabetes mellitus with diabetic polyneuropathy 250.60 E11.42 & Hallux limitus of right foot 735.8 M20.5X1 & Hammertoe of right foot 735.4 M20.41 & Skin ulcer of second toe of right foot, limited to breakdown of skin 707.15 L97.511 documented in this [facility]10-31-2022 History of Present illness Narrative* BRADFORD Lo - 04/26/2022 3:30 PM EDT Radiology Service Progress Note PATIENT NAME: Esvin West Sr. DATE OF SERVICE: April 26, 2022 TIME: 3:52 PM PATIENT IDENTITY VERIFICATION COMPLETED USING TWO (2) IDENTIFIERS: Name and Date of confirmedby patient verbally. FALL SCREENING: Has the patient had 2 falls in the last year or 1 fall with injury or currently using an Ambulatory Assistive Device (Walker, Cane, Wheelchair, Crutches, etc.)? No PATIENT GENDER DATA: Male PATIENT RELEVANT IMPLANT DATA REVIEWED: Not Applicable RADIOLOGY DEPARTMENT: General X-ray: Exam(s) Completed: Lower Extremity X- Ray(s): Foot, Right PERIPHERAL IV DATA: Not applicable SIGNED BY: BRADFORD Lo April 26, 2022 3:52 PM documented in this [facility]10-31-2022 Instructions* Patient Instructions* Avinash Stratton RN - 04/26/2022 2:44 PM EDT WOUND CARE INSTRUCTIONS- Esvin West Sr. Wound location: Right Great Toe & Right Second Toe 1. Wash your hands with soap and water before and after wound care. 2. Gather all supplies needed. 3. Wash wound with wound wash with dial soap and water. Pat dry. (Using it's own towel to dry the wound area) 4. [place] wound and krystyna-wound with betadine. 5. Apply Promogran (foam like material) into wound bed. Please moisten the Promogran with 1-2 dropsof Vashe to make it easier to apply. 6. Cover with Adaptic (mesh like material) 7. Cover with 4x4 gauze and wrap with 2 conform roll. Secure with tape. 8. Change your dressing: every other day or if needed to keep the dressing dry. Apply Tubi-executive administrative assistant to both legs to help with swelling. Apply in the morning and remove at bedtime. COMPRESSION : Keep dressing dry and intact until next wound care appointment. Compression wrap mustbe removed if: It becomes wet or soiled If you have numbness or tingling in your foot or toes If you have increased pain If toes become cold or discolored - Avoid sitting with legs in a dependent position or standing for long periods of time. - Attempt to lay flat and elevate your legs above the level of your heart 2-3 times daily, for 30 minutes at a time. - Be sure to continue heel lifts and ankle exercises to mimic writing the alphabet with your foot, as instructed - If it becomes necessary to remove the wrap, do so by unwinding it. Apply clean dressing as instructed and notify the wound care center. To give your wound the best chance to heal: - Eat three balanced meals daily focusing on the protein - Control swelling by elevating the extremity above your heart - Control your blood sugar. Keep blood sugar less than 200 - Complete your wound care instructions - Vitamin C 500 mg twice daily - Multiple Vitamin Daily - Drink a protein shake daily - Premiere Clear or Glucerna for Diabetic patients and Nepro for Chronic Kidney Disease patients. Contact your Kidney doctor Report any of the following changes [phone] or go to the Emergency Department: Fever or chills Increased drainage Green or yellow drainage Foul odor Increased pain Hardness around the wound Redness, warmth or swelling of the surrounding tissue Color change to the wound PLAN/ORDERS: Return to the wound center to see Dr. Campbell in 2 weeks - or sooner if a problem. Obtain an xray of the right foot. Continue aggressive nutritional support for optimal wound healing. Order faxed to [facility] for updated supplies. Please call them tomorrow to confirm your order: Visit your office coordinator receptionist every 10-12 weeks for callous control. Lynn Campbell DPM/sp/tc [facility] Nurse Note* Avinash Stratton RN - 04/26/2022 2:44 PM EDT Nursing Documentation Pertinent Medical History: long hx of callous, CKD, HTN, DM Wound Etiology according to patient: Callous fell off - wound beneath Patient arrived via: ambulatory with Home Care Company/Nursing Facility: none Consent captured for debridement per [place] until September 2022 Consent captured for debridement per Lynn Ca until September 2022 Anticoagulant Therapy: ASA 81 ACTIVE CARE PER PROVIDER: Lynn Campbell DPM WOUND ASSESSMENT: Refer to Provider's Wound Assessment Note VASCULAR ASSESSMENT BY PROVIDER: N/per provider CHF History: denies EDEMA: Right foot: None Right calf: none Left foot: None Left Calf: None Other: N/A MEASUREMENTS: in CM Right Calf: 32.5 Right Ankle: 22.0 Left Calf: 31.5 Left Ankle: 21.5 Length: 49.8 WOUND PHOTOGRAPHY: yes x 1 DEBRIDEMENT PROCEDURE BY PROVIDER: Anesthetic Used: Lidogel 2% applied by Lalitha Vasquez RN Wound # 1 and #2 Other procedure: N/A Specimen collected: N/A WOUND TREATMENT PER MD ORDER: Refer to provider's note. Wounds cleansed by mechanical debridement to allow provider to visualize wound base WOUND #1 - LOCATION: Right Hallux - Medial Plantar Surface (Top of callous fell off 04/05/22) Debridement Provider: SubQ Post debridement measurements if applicable: L: 0.9 cm x W: 0.3 cm x D: 0.2 cm Cleansed with: Betadine Applied to krystyna-wound skin: Betadine Applied to wound bed: Promogran, Adaptic Covered and secured with: 2x2 gauze and wrap with 2 Conform Other: Single layer of Tubi-executive administrative assistant size D. WOUND # 2 - LOCATION: Right Second Toe - Formed from burst blister DEBRIDEMENT: SubQ Post debridement measurements if applicable: L: 0.7 cm x W: 0.7 cm x D: 0.2 cm Cleansed with: Betadine Applied to krystyna-wound skin: Betadine Applied to wound bed: Promogran, Adaptic Covered and secured with: 2x2 gauze and wrap with 2 Conform Other: Single layer of Tubi-executive administrative assistant size D. COMPRESSION: Single layer Tubi-executive administrative assistant size D bilateral SPECIAL NEEDS: Coordination of care - [facility] for dressing supplies Emotional support N/A OR set-up N/A Mergers And Acquisitions Manager N/A Incontinence needs N/A DISCHARGED in stable condition to: Home Ambulatory Global surgical period dates if applicable: N/A PLAN/ORDERS: Return to the wound center to see Dr. Campbell in 2 weeks - or sooner if a problem. Obtain an xray of the right foot. Continue aggressive nutritional support for optimal wound healing. Order faxed to [facility] for updated supplies. Please call them tomorrow to confirm your order: Visit your office coordinator receptionist every 10-12 weeks for callous control. EDUCATION: The patient/family was instructed how to cleanse the wound(s). Visual demonstration on how to applythe dressing with teach back method. Signs & symptoms of infection were reviewed: Increased redness, swelling, pain, green/yellow drainage, fever and/or chills would all need to be evaluated by a Physician. Patient received typed home-going wound care instructions and has expressed intent to comply. OTHER EDUCATION: Provider discussed healing, regular podiatry visits, need for xray. Education performed regarding lymphedema/edema: Elevation of extremity above the heart for 30 minutes three times daily and as needed Exercise such as writing the ABC's with your toes in the air, walking and/or calf pumps Wearing compression as ordered by provider Diet controlling of sodium as instructed by provider Use of medication to help control edema. UNIVERSAL PROTOCOL / SAFETY CHECKLIST Procedure to be Performed: serial sharp debridement of the Right Great Toe Sign In: 1440 A Moment of CARE was completed. Personnel directly involved with the procedure wore the appropriate PPE (Personal Protective Equipment). Patient/Surrogate Stated/Verified: PATIENT VERIFIED(optional for EMERGENT procedures): Patient name, Date of , Relevant allergies, and The intended procedure Time Out Communication: 1457 Intended patient and procedure match the source documents. Consent documented and matches the intended procedure. No relevant labs, photos, and/or imaging studies were applicable for review. Sign Out: 6657 SIGN OUT (optional for EMERGENT procedures): No specimen collected. Current HBOT Status: Active or Complete - see screening below WOUND CENTER HYPERBARIC OXYGEN THERAPY SCREENING 1. Is the patient diabetic? (If No, skip to question 5) Yes 2. Does the patient have a lower extremity wound? Yes 3. Is there exposed/involved tendon or bone? No 4. Has the wound been present for 30 days? Yes If Yes to ALL questions above, [facility] 5. Has the patient been diagnosed with osteomyelitis? No 6. Has the patient had a previous skin graft or flap at the wound? No 7. Has the patient had or been offered vascular intervention/evaluation? No 8. Does the patient have a wound at an amputation site? No 9. Has the patient had radiation therapy at the site of the problem? No If Yes to ANY of questions 5-9, [facility] Avinash Stratton RN/haylee documented in [facility] Miscellaneous Notes* Telephone Encounter - Ivett Scherer RN - 04/22/2022 5:09 PM EDT This patient called the wound center to report new onset leg pain on the same leg that his wound dayron. This RN returned the patient's call and left a message on his voice mail box. Will await returning call. Ivett Scherer RN documented in this [facility]The [facility]10[facility] Instructions* Patient Instructions* Radha Cohn MD - 04/21/2022 10:03 AM EDT Images from the original note were not included. documented in this [facility]The [facility] History of Present illness Narrative* Radha Cohn MD - 04/21/2022 9:53 AM EDT Assessment and Plan 1. Primary open angle glaucoma (POAG) of both eyes, severe stage -stable intraocular pressure, as well as orta visual field (HVF) and OCT nerve -component of nerve fiber layer thinning may be secondary to Diabetes mellitus and prior extensive Panretinal laser photocoagulation (PRP) 2. 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 Return to clinic as soon as possible if increased floaters, flashes, or shadows. -Continue Cosopt twice daily and latanoprost daily in both eyes -continue follow-up Dr. Finnegan as scheduled. Me in 3-4 months with dilated fundus exam and OCT macula both eyes / sooner as needed I have confirmed and edited as necessary the relevant ophthalmic history, ROS, and the neuro exam findings as obtained by others. I have seen and examined Esvin West Sr.. I have discussed the case and the management of this patient's care with the Resident/Fellow, if applicable. I also have reviewed and agree with the assessment and plan as stated above and agree withall of its relevant components. Radha Cohn MD April 21, 2022 9:53 AM documented in this [facility]The [facility] NoteHNO ID: [id number] Author: Lynn Campbell DPM Service: ? Author Type: Physician Type: Progress Notes Filed: 04/20/2022 5:01 PM Note Text: CHIEF COMPLAINT: right plantar hallux ulcer and NEW RT second toe ulcer DM2 a1c 5.7 neuro DLS 04/07/22 HISTORY OF PRESENT ILLNESS: Patient presents for right plantar hallux ulcer. Last seen 10 days ago by my colleague and today he has NEW issue RT second toe had a blister and called and we got him in today. he does not know when it happened due to no feeling and neuropathy. he went to ER and on oral abx He relates he generally gets a callus in this area. He relates his callus fell off on 04/05/22 and he had underlying wound. He relates he saw his kidney doctor who referred him to the [facility]. He had wound dressed at kidney doctor's office with a salve and bandage that he has left on since appointment earlier this week. He is established with Dr Eric. He goes every 6 months for RC. He has DM shoes from him that he isn't wearing today. Relates history of trauma to right great toe. Notes he started getting callus to plantar right great toe after this incident. Patient has neuropathy with numbness. Patient denies N/F/V/C/CP/SOB. PHYSICAL EXAMINATION: Vascular Exam: BL Foot DP / PT pulses +2/4 CFT less than 3 seconds to digits, skin temp warm to warm from proximal to distal BL Foot Dermatologic Exam: RIGHT plantar lateral hallux wound predebridement measures 1.0x0.5x0.1cm and post 0.2cm 100 granular fibrotic base, surrounding maceration, surrounding slough, no erythema, no purulence, no probe to bone, no malodor, moderate serosanginous drainage. Into level of SUBCUTANEOUS TISSUE RT second toe distal tuft lateral is 1.0x0.8x0.1cm and post 0.2cm and 100 granualr mild serosang driange, no erythema, no warmth, no deep probing Neurologic Exam: Comments/Other Findings: Vibratory sensations absent BL at the MPJ with tuning fork. Protective sensations absent at the digits BL tested with 5.07 monofilament. sharp and light, and temperature sensations intact bl. Muscle Testing of the Extensors, Flexors, Evertors (peroneals), and Invertors (posterior tibialis) BL leg shows normal 5/5 strength at this time Orthopedic Exam: Additional Orthopedic Findings: RIGHT decreased 1st MPJ and IPJ ROM RIGHT foot contracture of lesser digits DIAGNOSIS: Skin ulcer of right great toe, limited to breakdown of skin Type 2 diabetes mellitus with foot ulcer Type 2 diabetes mellitus with diabetic polyneuropathy Hallux limitus of right foot Hammertoe of right foot Skin ulcer of second toe of right foot, limited to breakdown of skin PLAN AND TREATMENT: ASSESMENT AND PLAN BL Foot and Ankle and Lower extremity Exam and Evaluation carried out with a treatment plan reviewed with the patient and findings discussed with patient including alternatives, benefits, complications and risks. TESTS / IMAGING / X-RAY EXAM 12/17/21 PVR: RIGHT SIDE Resting right ankle brachial index: 1.36 Right toe brachial index: 1.05 Normal ankle brachial index at rest in the right leg. Normal toe brachial index at rest in the right leg. Right ankle: Normal at rest. LEFT SIDE Resting left ankle brachial index: 1.34 Left toe brachial index: 1.16 Normal ankle brachial index at rest in the left leg. Normal toe brachial index at rest in the left leg. Left ankle: Normal at rest. RIGHT plantar lateral great toe ulcer AND RIGHT second toe ulcer treated with sharp excisional debridement carried out of the wound with non selective sharp excisional debridement past the dermis into SUBCUTANEOUS level with use of curette and 15 scalpel blade. Devitalized tissue removed. We then flushed out the wound with wound wash sterile saline. Area numbed with lidocaine gel if sensate prior. Discussed importance in offloading, proper nutrition including blood sugar control and getting enough protein and vitamins, infection prevention, proper wound care in wound healing. Also discussed detrimental impact of smoking on healing. Reviewed proper wound care with patient. Dressing was applied today. To watch for signs of infection both local and systemic. These were reviewed with the patient. If seen to contact office or go to ED. To continue wound care consisting of washing the foot with soap and water or vashe solution. Then to apply dressing consisting of betadine, silver alginate, gauze conform Previously Discussed need to wear DM shoes to offload, presents in slippers previously discussed to Keep appointment with Dr Eric next week. Discussed he should go more frequently than every 6 months to keep callus better controlled to prevent wounds wounds stable today, no soi, cont antibiotics oral from ER Follow up in 1 weeks for ulcer check and to get base line XR Skin ulcer of right great toe, limited to breakdown of skin 707.15 L97.511 AND Type 2 diabetes mellitus with foot ulcer 2 (more content not included)...[id number] History of Present illness Narrative* Lynn Campbell, NEHAM - 04/20/2022 5:01 PM EDT Images from the original note were not included. CHIEF COMPLAINT: right plantar hallux ulcer and NEW RT second toe ulcer DM2 a1c 5.7 neuro DLS 04/07/22 HISTORY OF PRESENT ILLNESS: Patient presents for right plantar hallux ulcer. Last seen 10 days ago by my colleague and today hehas NEW issue RT second toe had a blister and called and we got him in today. he does not know whenit happened due to no feeling and neuropathy. he went to ER and on oral abx He relates he generally gets a callus in this area. He relates his callus fell off on 04/05/22 and he had underlying wound. He relates he saw his kidney doctor who referred him to the [facility]. He had wound dressed at kidney doctor's office with a salve and bandage that he has left on since appointment earlier this week. He is established with Dr Eric. He goes every 6 months for RC. He has DM shoes from him that heisn't wearing today. Relates history of trauma to right great toe. Notes he started getting callus to plantar right great toe after this incident. Patient has neuropathy with numbness. Patient denies N/F/V/C/CP/SOB. PHYSICAL EXAMINATION: Vascular Exam: BL Foot DP / PT pulses +2/4 CFT less than 3 seconds to digits, skin temp warm to warm from proximal to distal BL Foot Dermatologic Exam: RIGHT plantar lateral hallux wound predebridement measures 1.0x0.5x0.1cm and post 0.2cm 100 granular fibrotic base, surrounding maceration, surrounding slough, no erythema, no purulence, no probe to bone, no malodor, moderate serosanginous drainage. Into level of SUBCUTANEOUS TISSUE RT second toe distal tuft lateral is 1.0x0.8x0.1cm and post 0.2cm and 100 granualr mild serosang driange, no erythema, no warmth, no deep probing Neurologic Exam: Comments/Other Findings: Vibratory sensations absent BL at the MPJ with tuning fork. Protective sensations absent at the digits BL tested with 5.07 monofilament. sharp and light, and temperature sensations intact bl. Muscle Testing of the Extensors, Flexors, Evertors (peroneals), and Invertors (posterior tibialis) BL leg shows normal 5/5 strength at this time Orthopedic Exam: Additional Orthopedic Findings: RIGHT decreased 1st MPJ and IPJ ROM RIGHT foot contracture of lesser digits DIAGNOSIS: Skin ulcer of right great toe, limited to breakdown of skin Type 2 diabetes mellitus with foot ulcer Type 2 diabetes mellitus with diabetic polyneuropathy Hallux limitus of right foot Hammertoe of right foot Skin ulcer of second toe of right foot, limited to breakdown of skin PLAN AND TREATMENT: ASSESMENT & PLAN BL Foot and Ankle and Lower extremity Exam and Evaluation carried out with a treatment plan reviewed with the patient and findings discussed with patient including alternatives, benefits, complications and risks. TESTS / IMAGING / X-RAY EXAM 12/17/21 PVR: RIGHT SIDE Resting right ankle brachial index: 1.36 Right toe brachial index: 1.05 Normal ankle brachial index at rest in the right leg. Normal toe brachial index at rest in the right leg. Right ankle: Normal at rest. LEFT SIDE Resting left ankle brachial index: 1.34 Left toe brachial index: 1.16 Normal ankle brachial index at rest in the left leg. Normal toe brachial index at rest in the left leg. Left ankle: Normal at rest. RIGHT plantar lateral great toe ulcer AND RIGHT second toe ulcer treated with sharp excisional debridement carried out of the wound with non selective sharp excisional debridement past the dermis into SUBCUTANEOUS level with use of curette and 15 scalpel blade. Devitalized tissue removed. We then flushed out the wound with wound wash sterile saline. Area numbed with lidocaine gel if sensate prior. Discussed importance in offloading, proper nutrition including blood sugar control and getting enough protein and vitamins, infection prevention, proper wound care in wound healing. Also discussed detrimental impact of smoking on healing. Reviewed proper wound care with patient. Dressing was applied today. To watch for signs of infection both local and systemic. These were reviewed with the patient. If seen to contact office or go to ED. To continue wound care consisting of washing the foot with soap and water or vashe solution. Then to apply dressing consisting of betadine, silver alginate, gauze conform Previously Discussed need to wear DM shoes to offload, presents in slippers previously discussed to Keep appointment with Dr Eric next week. Discussed he should go more frequently than every 6 months to keep callus better controlled to prevent wounds wounds stable today, no soi, cont antibiotics oral from ER Follow up in 1 weeks for ulcer check and to get base line XR Skin ulcer of right great toe, limited to breakdown of skin 707.15 L97.511 & Type 2 diabetes mellitus with foot ulcer 250.80 E11.621 & Type 2 diabetes mellitus with diabetic polyneuropathy 250.60 E11.42 & Hallux limitus of right foot 735.8 M20.5X1 & Hammertoe of right foot 735.4 M20.41 & Skin ulcer of second toe of right foot, limited to breakdown of skin 707.15 L97.511 documented in this [facility]The [facility]10[facility]22 NoteHNO ID: [id number] Author: Natalya Jordan DPM Service: ? Author Type: Physician Type: Progress Notes Filed: 04/20/2022 1:51 PM Note Text: CHIEF COMPLAINT: right plantar hallux ulcer DM2 a1c 5.7 neuro DLS 04/07/22 HISTORY OF PRESENT ILLNESS: Patient presents for right plantar hallux ulcer. He relates he generally gets a callus in this area. He relates his callus fell off on 04/05/22 and he had underlying wound. He relates he saw his kidney doctor who referred him to the [facility]. He had wound dressed at kidney doctor's office with a salve and bandage that he has left on since appointment earlier this week. He is established with Dr Eric. He goes every 6 months for RC. He has DM shoes from him that he isn't wearing today. Relates history of trauma to right great toe. Notes he started getting callus to plantar right great toe after this incident. Patient has neuropathy with numbness. Patient denies N/F/V/C/CP/SOB. PHYSICAL EXAMINATION: Vascular Exam: BL Foot DP / PT pulses +2/4 CFT less than 3 seconds to digits, skin temp warm to warm from proximal to distal BL Foot Dermatologic Exam: RIGHT plantar lateral hallux wound predebridement measures 1.2x0.7x0.1cm and post debridement measures 0.5x0.9x0.2cm with 75:25 granular fibrotic base, surrounding maceration, surrounding slough, no erythema, no purulence, no probe to bone, no malodor, moderate serosanginous drainage. Into level of SUBCUTANEOUS TISSUE Neurologic Exam: Comments/Other Findings: Vibratory sensations absent BL at the MPJ with tuning fork. Protective sensations absent at the digits BL tested with 5.07 monofilament. sharp and light, and temperature sensations intact bl. Muscle Testing of the Extensors, Flexors, Evertors (peroneals), and Invertors (posterior tibialis) BL leg shows normal 5/5 strength at this time Orthopedic Exam: Additional Orthopedic Findings: RIGHT decreased 1st MPJ and IPJ ROM RIGHT foot contracture of lesser digits DIAGNOSIS: Skin ulcer of right great toe, limited to breakdown of skin Type 2 diabetes mellitus with foot ulcer Type 2 diabetes mellitus with diabetic polyneuropathy Hallux limitus of right foot Hammertoe of right foot PLAN AND TREATMENT: ASSESMENT AND PLAN BL Foot and Ankle and Lower extremity Exam and Evaluation carried out with a treatment plan reviewed with the patient and findings discussed with patient including alternatives, benefits, complications and risks. TESTS / IMAGING / X-RAY EXAM 12/17/21 PVR: RIGHT SIDE Resting right ankle brachial index: 1.36 Right toe brachial index: 1.05 Normal ankle brachial index at rest in the right leg. Normal toe brachial index at rest in the right leg. Right ankle: Normal at rest. LEFT SIDE Resting left ankle brachial index: 1.34 Left toe brachial index: 1.16 Normal ankle brachial index at rest in the left leg. Normal toe brachial index at rest in the left leg. Left ankle: Normal at rest. RIGHT plantar lateral great toe ulcer treated with sharp excisional debridement carried out of the wound with non selective sharp excisional debridement past the dermis into SUBCUTANEOUS level with use of curette and 15 scalpel blade. Devitalized tissue removed. We then flushed out the wound with wound wash sterile saline. Area numbed with lidocaine gel if sensate prior. Discussed importance in offloading, proper nutrition including blood sugar control and getting enough protein and vitamins, infection prevention, proper wound care in wound healing. Also discussed detrimental impact of smoking on healing. Reviewed proper wound care with patient. Dressing was applied today. To watch for signs of infection both local and systemic. These were reviewed with the patient. If seen to contact office or go to ED. To continue wound care consisting of washing the foot with soap and water or vashe solution. Then to apply dressing consisting of betadine, silver alginate, SAP. Discussed need to wear DM shoes to offload, presents in slippers Keep appointment with Dr Eric next week. Discussed he should go more frequently than every 6 months to keep callus better controlled to prevent wounds Follow up in 2 weeks for ulcer check and to get base line XR Skin ulcer of right great toe, limited to breakdown of skin 707.15 L97.511 AND Type 2 diabetes mellitus with foot ulcer 250.80 E11.621 AND Type 2 diabetes mellitus with diabetic polyneuropathy 250.60 E11.42 AND Hallux limitus of right foot 735.8 M20.5X1 AND Hammertoe of right foot 735.4 M20.41[id number] History of Past illness Narrative* Problem Noted Date Resolved Date Right foot ulcer, limited to breakdown of skin 1 10/27/2022 Benign paroxysmal positional vertigo 09/28/2021 02/03/2022 Dizziness and giddiness 09/28/2021 02/04/20 22 Strain of tendon of right rotator cuff 02/03/2022 Weakness 09/29/2020 02/03/2022 Punctate keratitis, bilateral 06/22/2019 Pseudophakia of both eyes 06/22/20192021 Primary open angle glaucoma (POAG) of left eye, mild stage 01/09/2019 04/27/2022 Primary open angle glaucoma (POAG) of right eye, severe stage 09/19/2018 04/27/2022 Vitreous hemorrhage 04/19/2018 04/27/2022 Overview: Added automatically from request for surgery [id number] CKD (chronic kidney disease) stage 3, GFR 30-59 ml/min 05/26/2017 10/04/2019 Type 2 DM with CKD stage 3 and hypertension 03/2809/17/2020 Type 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, uncontrolled(250.62) 07/23/200902/25 Ulcer of other part of foot 06/30/200902/25 Dermatophytosis of nail 04/22/2009 03/09/20 11 Acute pain of right shoulder 09/25/200806/2021 Overview: Right. Other specified gastritis without mention of hem orrhage 09/18/2008 07/07/2015 Hypertrophy of prostate with out urinary obstruction and other lower urinary tract symptoms (LUTS) 09/18/2008 09/08/2011 Background diabetic retinopathy(362.01) 09/19/19 09 06/30/2015 Erectile dysfunction associa violet with type 2 diabetes mellitus 07/09/2008 04/27/2022 Polyneuropathy in diabetes 07/27/200504/27 Type II or unspecified type diabetes mellitus without mention of complication, uncontrolled 07/27/2005 08/09/2008 Overview: Alb/Creat 10 in 7-08 A1C 7.9% in 7-08, 11.8% in 1-09 Creat 1.4 in 1-09 Asthma 07/07/2015 documented as of this encounter (statuses as of 10/27/2022) [facility] History of Past illness Narrative* Problem Noted Date Resolved Date Right foot ulcer, limited to breakdown of skin 1 10/27/2022 Benign paroxysmal positional vertigo 09/28/2021 02/03/2022 Dizziness and giddiness 09/28/2021 02/04/20 22 Strain of tendon of right rotator cuff 02/03/2022 Weakness 09/29/2020 02/03/2022 Punctate keratitis, bilateral 06/22/2019 Pseudophakia of both eyes 06/22/20192021 Primary open angle glaucoma (POAG) of left eye, mild stage 01/09/2019 04/27/2022 Primary open angle glaucoma (POAG) of right eye, severe stage 09/19/2018 04/27/2022 Vitreous hemorrhage 04/19/2018 04/27/2022 Overview: Added automatically from request for surgery [id number] CKD (chronic kidney disease) stage 3, GFR 30-59 ml/min 05/26/2017 10/04/2019 Type 2 DM with CKD stage 3 and hypertension 03/2809/17/2020 Type 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, uncontrolled(250.62) 07/23/200902/25 Ulcer of other part of foot 06/30/200902/25 Dermatophytosis of nail 04/22/2009 03/09/20 11 Acute pain of right shoulder 09/25/200806/2021 Overview: Right. Other specified gastritis without mention of hem orrhage 09/18/2008 07/07/2015 Hypertrophy of prostate with out urinary obstruction and other lower urinary tract symptoms (LUTS) 09/18/2008 09/08/2011 Background diabetic retinopathy(362.01) 09/19/19 09 06/30/2015 Erectile dysfunction associa violet with type 2 diabetes mellitus 07/09/2008 04/27/2022 Polyneuropathy in diabetes 07/27/200504/27 Type II or unspecified type diabetes mellitus without mention of complication, uncontrolled 07/27/2005 08/09/2008 Overview: Alb/Creat 10 in 7-08 A1C 7.9% in 7-08, 11.8% in 1-09 Creat 1.4 in - Asthma 07/07/2015 documented as of this encounter (statuses as of 12/10/2022) [facility] History of Past illness Narrative* Problem Noted Date Resolved Date Right foot ulcer, limited to breakdown of skin 1 10/27/2022 Benign paroxysmal positional vertigo 09/28/2021 02/03/2022 Dizziness and giddiness 09/28/2021 02/04/20 22 Strain of tendon of right rotator cuff 02/03/2022 Weakness 09/29/2020 02/03/2022 Punctate keratitis, bilateral 06/22/2019 Pseudophakia of both eyes 06/22/20192021 Primary open angle glaucoma (POAG) of left eye, mild stage 01/09/2019 04/27/2022 Primary open angle glaucoma (POAG) of right eye, severe stage 09/19/2018 04/27/2022 Vitreous hemorrhage 04/19/2018 04/27/2022 Overview: Added automatically from request for surgery [id number] CKD (chronic kidney disease) stage 3, GFR 30-59 ml/min 05/26/2017 10/04/2019 Type 2 DM with CKD stage 3 and hypertension 03/2809/17/2020 Type 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, uncontrolled(250.62) 07/23/200902/25 Ulcer of other part of foot 06/30/200902/25 Dermatophytosis of nail 04/22/2009 03/09/20 11 Acute pain of right shoulder 09/25/200806/2021 Overview: Right. Other specified gastritis without mention of hem orrhage 09/18/2008 07/07/2015 Hypertrophy of prostate with out urinary obstruction and other lower urinary tract symptoms (LUTS) 09/18/2008 09/08/2011 Background diabetic retinopathy(362.01) 09/19/19 09 06/30/2015 Erectile dysfunction associa violet with type 2 diabetes mellitus 07/09/2008 04/27/2022 Polyneuropathy in diabetes 07/27/200504/27 Type II or unspecified type diabetes mellitus without mention of complication, uncontrolled 07/27/2005 08/09/2008 Overview: Alb/Creat 10 in 7-08 A1C 7.9% in 7-08, 11.8% in 1-09 Creat 1.4 in 1-09 Asthma 07/07/2015 documented as of this encounter (statuses as of 12/14/2022) [facility] History of Past illness Narrative* Problem Noted Date Resolved Date Right foot ulcer, limited to breakdown of skin 1 10/27/2022 Benign paroxysmal positional vertigo 09/28/2021 02/03/2022 Dizziness and giddiness 09/28/2021 02/04/20 22 Strain of tendon of right rotator cuff 02/03/2022 Weakness 09/29/2020 02/03/2022 Punctate keratitis, bilateral 06/22/2019 Pseudophakia of both eyes 06/22/20192021 Primary open angle glaucoma (POAG) of left eye, mild stage 01/09/2019 04/27/2022 Primary open angle glaucoma (POAG) of right eye, severe stage 09/19/2018 04/27/2022 Vitreous hemorrhage 04/19/2018 04/27/2022 Overview: Added automatically from request for surgery [id number] CKD (chronic kidney disease) stage 3, GFR 30-59 ml/min 05/26/2017 10/04/2019 Type 2 DM with CKD stage 3 and hypertension 03/2809/17/2020 Type 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, uncontrolled(250.62) 07/23/200902/25 Ulcer of other part of foot 06/30/200902/25 Dermatophytosis of nail 04/22/2009 03/09/20 11 Acute pain of right shoulder 09/25/200806/2021 Overview: Right. Other specified gastritis without mention of hem orrhage 09/18/2008 07/07/2015 Hypertrophy of prostate with out urinary obstruction and other lower urinary tract symptoms (LUTS) 09/18/2008 09/08/2011 Background diabetic retinopathy(362.01) 09/19/19 09 06/30/2015 Erectile dysfunction associa violet with type 2 diabetes mellitus 07/09/2008 04/27/2022 Polyneuropathy in diabetes 07/27/200504/27 Type II or unspecified type diabetes mellitus without mention of complication, uncontrolled 07/27/2005 08/09/2008 Overview: Alb/Creat 10 in -08 A1C 7.9% in 01-01, 11.8% in 07-05 Creat 1.4 in 07-05 Asthma 07/07/2015 documented as of this encounter (statuses as of 12/16/2022) [facility] History of Past illness Narrative* Problem Noted Date Diagnosed Date Resolved Date Right foot ulcer, limited to breakdown of skin 04/20/2022 10/27/2022 Benign paroxysmal positional vertigo 09/28/2021 02/03/2022 Dizziness and giddiness 09/28/2021 08/ Strain of tendon of right rotator cuff 09/29/2020 02/03/2022 Weakness 09/29/2020 02/03/2022 Punctate keratitis, bilateral 06/22/2019 04/27/2022 Pseudophakia of both eyes 06/22/2019 Primary open angle glaucoma (POAG) of left eye, mild stage 01/09/2019 04/27/2022 Primary open angle glaucoma (POAG) of right eye, severe stage 09/19/2018 04/27/2022 Vitreous hemorrhage 04/19/2018 04/27/20 22 Overview: Added automatically from request for surgery [id number] CKD (chronic kidney disease) stage 3, GFR 30-59 ml/min 05/26/2017 10/04/2019 Type 2 DM with CKD stage 3 and hypertension 04/18/2017 09/17/2020 Type 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, uncontrolled(250.62) 07/23/2009 03/09/2011 Ulcer of other part of foot 06/30/2009 03/09/2011 Dermatophytosis of nail 04/22/200902/25 Acute pain of right shoulder 09/25/2008 04/27/2022 Overview: Right. Other specified gastritis wi thout mention of hemorrhage 09/18/2008 07/07/2015 Hypertrophy of prostate with out urinary obstruction and other lower urinary tract symptoms (LUTS) 09/18/2008 09/08/2011 Background diabetic retinopathy(362.01) 09/18/2008 06/30/2015 Erectile dysfunction associa violet with type 2 diabetes mellitus 07/09/2008 04/27/2022 Polyneuropathy in diabetes 07/27/2005 1 06/27/2021 Type II or unspecified type diabetes mellitus without mention of complication, uncontrolled 07/27/2005 08/09/2008 Overview: Alb/Creat 10 in 01-01 A1C 7.9% in 01-01, 11.8% in 07-05 Creat 1.4 in 07-05 Asthma 07/07/2015 documented as of this encounter (statuses as of 02/09/2023) [facility] History of Past illness Narrative* Problem Noted Date Diagnosed Date Resolved Date Right foot ulcer, limited to breakdown of skin 04/20/2022 10/27/2022 Benign paroxysmal positional vertigo 09/28/2021 02/03/2022 Dizziness and giddiness 09/28/2021 08/ Strain of tendon of right rotator cuff 09/29/2020 02/03/2022 Weakness 09/29/2020 02/03/2022 Punctate keratitis, bilateral 06/22/2019 04/27/2022 Pseudophakia of both eyes 06/22/2019 Primary open angle glaucoma (POAG) of left eye, mild stage 01/09/2019 04/27/2022 Primary open angle glaucoma (POAG) of right eye, severe stage 09/19/2018 04/27/2022 Vitreous hemorrhage 04/19/2018 04/27/20 22 Overview: Added automatically from request for surgery [id number] CKD (chronic kidney disease) stage 3, GFR 30-59 ml/min 05/26/2017 10/04/2019 Type 2 DM with CKD stage 3 and hypertension 04/18/2017 09/17/2020 Type 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, uncontrolled(250.62) 07/23/2009 03/09/2011 Ulcer of other part of foot 06/30/2009 03/09/2011 Dermatophytosis of nail 04/22/200902/25 Acute pain of right shoulder 09/25/2008 04/27/2022 Overview: Right. Other specified gastritis wi thout mention of hemorrhage 09/18/2008 07/07/2015 Hypertrophy of prostate with out urinary obstruction and other lower urinary tract symptoms (LUTS) 09/18/2008 09/08/2011 Background diabetic retinopathy(362.01) 09/18/2008 06/30/2015 Erectile dysfunction associa violet with type 2 diabetes mellitus 07/09/2008 04/27/2022 Polyneuropathy in diabetes 07/27/2005 1 06/27/2021 Type II or unspecified type diabetes mellitus without mention of complication, uncontrolled 07/27/2005 08/09/2008 Overview: Alb/Creat 10 in - A1C 7.9% in -, 11.8% in 07-05 Creat 1.4 in 1-09 Asthma 07/07/2015 documented as of this encounter (statuses as of 02/10/2023) [facility] History of Past illness Narrative* Problem Noted Date Diagnosed Date Resolved Date Right foot ulcer, limited to breakdown of skin 04/20/2022 10/27/2022 Benign paroxysmal positional vertigo 09/28/2021 02/03/2022 Dizziness and giddiness 09/28/202101/25 Strain of tendon of right rotator cuff 09/29/2020 02/03/2022 Weakness 09/29/2020 02/03/2022 Punctate keratitis, bilateral 06/22/2019 04/27/2022 Pseudophakia of both eyes 06/22/2019 Primary open angle glaucoma (POAG) of left eye, mild stage 01/09/2019 04/27/2022 Primary open angle glaucoma (POAG) of right eye, severe stage 09/19/2018 04/27/2022 Vitreous hemorrhage 04/19/2018 04/27/20 Overview: Added automatically from request for surgery [id number] CKD (chronic kidney disease) stage 3, GFR 30-59 ml/min 05/26/2017 10/04/2019 Type 2 DM with CKD stage 3 and hypertension 04/18/2017 09/17/2020 Type 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, uncontrolled(250.62) 07/23/2009 03/09/2011 Ulcer of other part of foot 06/30/2009 03/09/2011 Dermatophytosis of nail 04/22/200902/25 Acute pain of right shoulder 09/25/2008 04/27/2022 Overview: Right. Other specified gastritis wi thout mention of hemorrhage 09/18/2008 07/07/2015 Hypertrophy of prostate with out urinary obstruction and other lower urinary tract symptoms (LUTS) 09/18/2008 09/08/2011 Background diabetic retinopathy(362.01) 09/18/2008 06/30/2015 Erectile dysfunction associa violet with type 2 diabetes mellitus 07/09/2008 04/27/2022 Polyneuropathy in diabetes 07/27/2005 1 06/27/2021 Type II or unspecified type diabetes mellitus without mention of complication, uncontrolled 07/27/2005 08/09/2008 Overview: Alb/Creat 10 in - A1C 7.9% in 01-01, 11.8% in 07-05 Creat 1.4 in - Asthma 07/07/2015 documented as of this encounter (statuses as of 03/04/2023) [facility] History of Past illness Narrative* Problem Noted Date Diagnosed Date Resolved Date Right foot ulcer, limited to breakdown of skin 04/20/2022 10/27/2022 Benign paroxysmal positional vertigo 09/28/2021 02/03/2022 Dizziness and giddiness 09/28/2021 08 Strain of tendon of right rotator cuff 09/29/2020 02/03/2022 Weakness 09/29/2020 02/03/2022 Punctate keratitis, bilateral 06/22/2019 04/27/2022 Pseudophakia of both eyes 06/22/2019 Primary open angle glaucoma (POAG) of left eye, mild stage 01/09/2019 04/27/2022 Primary open angle glaucoma (POAG) of right eye, severe stage 09/19/2018 04/27/2022 Vitreous hemorrhage 04/19/2018 04/27/20 22 Overview: Added automatically from request for surgery [id number] CKD (chronic kidney disease) stage 3, GFR 30-59 ml/min 05/26/2017 10/04/2019 Type 2 DM with CKD stage 3 and hypertension 04/18/2017 09/17/2020 Type 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, uncontrolled(250.62) 07/23/2009 03/09/2011 Ulcer of other part of foot 06/30/2009 03/09/2011 Dermatophytosis of nail 04/22/200902/25 Acute pain of right shoulder 09/25/2008 04/27/2022 Overview: Right. Other specified gastritis wi thout mention of hemorrhage 09/18/2008 07/07/2015 Hypertrophy of prostate with out urinary obstruction and other lower urinary tract symptoms (LUTS) 09/18/2008 09/08/2011 Background diabetic retinopathy(362.01) 09/18/2008 06/30/2015 Erectile dysfunction associa violet with type 2 diabetes mellitus (HCC) 07/09/2008 04/27/2022 Polyneuropathy in diabetes 07/27/2005 1 06/27/2021 Type II or unspecified type diabetes mellitus without mention of complication, uncontrolled 07/27/2005 08/09/2008 Overview: Alb/Creat 10 in 01-01 A1C 7.9% in 01-01, 11.8% in 07-05 Creat 1.4 in 07-05 Asthma 07/07/2015 documented as of this encounter (statuses as of 04/02/2023) [facility] History of Past illness Narrative* Problem Noted Date Diagnosed Date Resolved Date Right foot ulcer, limited to breakdown of skin 04/20/2022 10/27/2022 Benign paroxysmal positional vertigo 09/28/2021 02/03/2022 Dizziness and giddiness 09/28/2021 08 Strain of tendon of right rotator cuff 09/29/2020 02/03/2022 Weakness 09/29/2020 02/03/2022 Punctate keratitis, bilateral 06/22/2019 04/27/2022 Pseudophakia of both eyes 06/22/2019 Primary open angle glaucoma (POAG) of left eye, mild stage 01/09/2019 04/27/2022 Primary open angle glaucoma (POAG) of right eye, severe stage 09/19/2018 04/27/2022 Vitreous hemorrhage 04/19/2018 04/27/20 22 Overview: Added automatically from request for surgery [id number] CKD (chronic kidney disease) stage 3, GFR 30-59 ml/min 05/26/2017 10/04/2019 Type 2 DM with CKD stage 3 and hypertension 04/18/2017 09/17/2020 Type 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, uncontrolled(250.62) 07/23/2009 03/09/2011 Ulcer of other part of foot 06/30/2009 03/09/2011 Dermatophytosis of nail 04/22/200902/25 Acute pain of right shoulder 09/25/2008 04/27/2022 Overview: Right. Other specified gastritis wi thout mention of hemorrhage 09/18/2008 07/07/2015 Hypertrophy of prostate with out urinary obstruction and other lower urinary tract symptoms (LUTS) 09/18/2008 09/08/2011 Background diabetic retinopathy(362.01) 09/18/2008 06/30/2015 Erectile dysfunction associa violet with type 2 diabetes mellitus (HCC) 07/09/2008 04/27/2022 Polyneuropathy in diabetes 07/27/2005 1 06/27/2021 Type II or unspecified type diabetes mellitus without mention of complication, uncontrolled 07/27/2005 08/09/2008 Overview: Alb/Creat 10 in 7-08 A1C 7.9% in 7-08, 11.8% in -09 Creat 1.4 in -09 Asthma 07/07/2015 documented as of this encounter (statuses as of 04/13/2023) [facility] History of Past illness Narrative* Problem Noted Date Diagnosed Date Resolved Date Right foot ulcer, limited to breakdown of skin 04/20/2022 10/27/2022 Benign paroxysmal positional vertigo 09/28/2021 02/03/2022 Dizziness and giddiness 09/28/2021 08 Strain of tendon of right rotator cuff 09/29/2020 02/03/2022 Weakness 09/29/2020 02/03/2022 Punctate keratitis, bilateral 06/22/2019 04/27/2022 Pseudophakia of both eyes 06/22/2019 Primary open angle glaucoma (POAG) of left eye, mild stage 01/09/2019 04/27/2022 Primary open angle glaucoma (POAG) of right eye, severe stage 09/19/2018 04/27/2022 Vitreous hemorrhage 04/19/2018 04/27/20 Overview: Added automatically from request for surgery [id number] CKD (chronic kidney disease) stage 3, GFR 30-59 ml/min 05/26/2017 10/04/2019 Type 2 DM with CKD stage 3 and hypertension 04/18/2017 09/17/2020 Type 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, uncontrolled(250.62) 07/23/2009 03/09/2011 Ulcer of other part of foot 06/30/2009 03/09/2011 Dermatophytosis of nail 04/22/200902/25 Acute pain of right shoulder 09/25/2008 04/27/2022 Overview: Right. Other specified gastritis wi thout mention of hemorrhage 09/18/2008 07/07/2015 Hypertrophy of prostate with out urinary obstruction and other lower urinary tract symptoms (LUTS) 09/18/2008 09/08/2011 Background diabetic retinopathy(362.01) 09/18/2008 06/30/2015 Erectile dysfunction associa violet with type 2 diabetes mellitus (HCC) 07/09/2008 04/27/2022 Polyneuropathy in diabetes 07/27/2005 1 06/27/2021 Type II or unspecified type diabetes mellitus without mention of complication, uncontrolled 07/27/2005 08/09/2008 Overview: Alb/Creat 10 in 7-08 A1C 7.9% in -08, 11.8% in - Creat 1.4 in -09 Asthma 07/07/2015 documented as of this encounter (statuses as of 04/13/2023) [facility] History of Past illness Narrative* Problem Noted Date Diagnosed Date Resolved Date Right foot ulcer, limited to breakdown of skin 04/20/2022 10/27/2022 Benign paroxysmal positional vertigo 09/28/2021 02/03/2022 Dizziness and giddiness 09/28/202101/25 Strain of tendon of right rotator cuff 09/29/2020 02/03/2022 Weakness 09/29/2020 02/03/2022 Punctate keratitis, bilateral 06/22/2019 04/27/2022 Pseudophakia of both eyes 06/22/2019 Primary open angle glaucoma (POAG) of left eye, mild stage 01/09/2019 04/27/2022 Primary open angle glaucoma (POAG) of right eye, severe stage 09/19/2018 04/27/2022 Vitreous hemorrhage 04/19/2018 04/27/20 22 Overview: Added automatically from request for surgery [id number] CKD (chronic kidney disease) stage 3, GFR 30-59 ml/min 05/26/2017 10/04/2019 Type 2 DM with CKD stage 3 and hypertension 04/18/2017 09/17/2020 Type 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, uncontrolled(250.62) 07/23/2009 03/09/2011 Ulcer of other part of foot 06/30/2009 03/09/2011 Dermatophytosis of nail 04/22/200902/25 Acute pain of right shoulder 09/25/2008 04/27/2022 Overview: Right. Other specified gastritis wi thout mention of hemorrhage 09/18/2008 07/07/2015 Hypertrophy of prostate with out urinary obstruction and other lower urinary tract symptoms (LUTS) 09/18/2008 09/08/2011 Background diabetic retinopathy(362.01) 09/18/2008 06/30/2015 Erectile dysfunction associa violet with type 2 diabetes mellitus (HCC) 07/09/2008 04/27/2022 Polyneuropathy in diabetes 07/27/2005 1 06/27/2021 Type II or unspecified type diabetes mellitus without mention of complication, uncontrolled 07/27/2005 08/09/2008 Overview: Alb/Creat 10 in -08 A1C 7.9% in -, 11.8% in - Creat 1.4 in - Asthma 07/07/2015 documented as of this encounter (statuses as of 04/19/2023) [facility] History of Past illness Narrative* Problem Noted Date Diagnosed Date Resolved Date Right foot ulcer, limited to breakdown of skin 04/20/2022 10/27/2022 Benign paroxysmal positional vertigo 09/28/2021 02/03/2022 Dizziness and giddiness 09/28/2021 08 Strain of tendon of right rotator cuff 09/29/2020 02/03/2022 Weakness 09/29/2020 02/03/2022 Punctate keratitis, bilateral 06/22/2019 04/27/2022 Pseudophakia of both eyes 06/22/2019 Primary open angle glaucoma (POAG) of left eye, mild stage 01/09/2019 04/27/2022 Primary open angle glaucoma (POAG) of right eye, severe stage 09/19/2018 04/27/2022 Vitreous hemorrhage 04/19/2018 04/27/20 22 Overview: Added automatically from request for surgery [id number] CKD (chronic kidney disease) stage 3, GFR 30-59 ml/min 05/26/2017 10/04/2019 Type 2 DM with CKD stage 3 and hypertension 04/18/2017 09/17/2020 Type 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, uncontrolled(250.62) 07/23/2009 03/09/2011 Ulcer of other part of foot 06/30/2009 03/09/2011 Dermatophytosis of nail 04/22/200902/25 Acute pain of right shoulder 09/25/2008 04/27/2022 Overview: Right. Other specified gastritis wi thout mention of hemorrhage 09/18/2008 07/07/2015 Hypertrophy of prostate with out urinary obstruction and other lower urinary tract symptoms (LUTS) 09/18/2008 09/08/2011 Background diabetic retinopathy(362.01) 09/18/2008 06/30/2015 Erectile dysfunction associa violet with type 2 diabetes mellitus (HCC) 07/09/2008 04/27/2022 Polyneuropathy in diabetes 07/27/2005 1 06/27/2021 Type II or unspecified type diabetes mellitus without mention of complication, uncontrolled 07/27/2005 08/09/2008 Overview: Alb/Creat 10 in 01-01 A1C 7.9% in 01-01, 11.8% in 07-05 Creat 1.4 in 07-05 Asthma 07/07/2015 documented as of this encounter (statuses as of 04/26/2023) [facility] History of Past illness Narrative* Problem Noted Date Diagnosed Date Resolved Date Right foot ulcer, limited to breakdown of skin 04/20/2022 10/27/2022 Benign paroxysmal positional vertigo 09/28/2021 02/03/2022 Dizziness and giddiness 09/28/202101/25 Strain of tendon of right rotator cuff 09/29/2020 02/03/2022 Weakness 09/29/2020 02/03/2022 Punctate keratitis, bilateral 06/22/2019 04/27/2022 Pseudophakia of both eyes 06/22/2019 Primary open angle glaucoma (POAG) of left eye, mild stage 01/09/2019 04/27/2022 Primary open angle glaucoma (POAG) of right eye, severe stage 09/19/2018 04/27/2022 Vitreous hemorrhage 04/19/2018 04/27/20 22 Overview: Added automatically from request for surgery [id number] CKD (chronic kidney disease) stage 3, GFR 30-59 ml/min 05/26/2017 10/04/2019 Type 2 DM with CKD stage 3 and hypertension 04/18/2017 09/17/2020 Type 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, uncontrolled(250.62) 07/23/2009 03/09/2011 Ulcer of other part of foot 06/30/2009 03/09/2011 Dermatophytosis of nail 04/22/200902/25 Acute pain of right shoulder 09/25/2008 04/27/2022 Overview: Right. Other specified gastritis wi thout mention of hemorrhage 09/18/2008 07/07/2015 Hypertrophy of prostate with out urinary obstruction and other lower urinary tract symptoms (LUTS) 09/18/2008 09/08/2011 Background diabetic retinopathy(362.01) 09/18/2008 06/30/2015 Erectile dysfunction associa violet with type 2 diabetes mellitus (HCC) 07/09/2008 04/27/2022 Polyneuropathy in diabetes 07/27/2005 1 06/27/2021 Type II or unspecified type diabetes mellitus without mention of complication, uncontrolled 07/27/2005 08/09/2008 Overview: Alb/Creat 10 in 7-08 A1C 7.9% in 7-08, 11.8% in 1-09 Creat 1.4 in - Asthma 07/07/2015 documented as of this encounter (statuses as of 04/27/2023) [facility] History of Past illness Narrative* Problem Noted Date Diagnosed Date Resolved Date Right foot ulcer, limited to breakdown of skin 04/20/2022 10/27/2022 Benign paroxysmal positional vertigo 09/28/2021 02/03/2022 Dizziness and giddiness 09/28/2021 08 Strain of tendon of right rotator cuff 09/29/2020 02/03/2022 Weakness 09/29/2020 02/03/2022 Punctate keratitis, bilateral 06/22/2019 04/27/2022 Pseudophakia of both eyes 06/22/2019 Primary open angle glaucoma (POAG) of left eye, mild stage 01/09/2019 04/27/2022 Primary open angle glaucoma (POAG) of right eye, severe stage 09/19/2018 04/27/2022 Vitreous hemorrhage 04/19/2018 04/27/20 22 Overview: Added automatically from request for surgery [id number] CKD (chronic kidney disease) stage 3, GFR 30-59 ml/min 05/26/2017 10/04/2019 Type 2 DM with CKD stage 3 and hypertension 04/18/2017 09/17/2020 Type 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, uncontrolled(250.62) 07/23/2009 03/09/2011 Ulcer of other part of foot 06/30/2009 03/09/2011 Dermatophytosis of nail 04/22/200902/25 Acute pain of right shoulder 09/25/2008 04/27/2022 Overview: Right. Other specified gastritis wi thout mention of hemorrhage 09/18/2008 07/07/2015 Hypertrophy of prostate with out urinary obstruction and other lower urinary tract symptoms (LUTS) 09/18/2008 09/08/2011 Background diabetic retinopathy(362.01) 09/18/2008 06/30/2015 Erectile dysfunction associa violet with type 2 diabetes mellitus (HCC) 07/09/2008 04/27/2022 Polyneuropathy in diabetes 07/27/2005 1 06/27/2021 Type II or unspecified type diabetes mellitus without mention of complication, uncontrolled 07/27/2005 08/09/2008 Overview: Alb/Creat 10 in 7-08 A1C 7.9% in 7-08, 11.8% in 1-09 Creat 1.4 in 1-09 Asthma 07/07/2015 documented as of this encounter (statuses as of 05/03/2023) [facility] History of Past illness Narrative* Problem Noted Date Diagnosed Date Resolved Date Right foot ulcer, limited to breakdown of skin 04/20/2022 10/27/2022 Benign paroxysmal positional vertigo 09/28/2021 02/03/2022 Dizziness and giddiness 09/28/202101/25 Strain of tendon of right rotator cuff 09/29/2020 02/03/2022 Weakness 09/29/2020 02/03/2022 Punctate keratitis, bilateral 06/22/2019 04/27/2022 Pseudophakia of both eyes 06/22/2019 Primary open angle glaucoma (POAG) of left eye, mild stage 01/09/2019 04/27/2022 Primary open angle glaucoma (POAG) of right eye, severe stage 09/19/2018 04/27/2022 Vitreous hemorrhage 04/19/2018 04/27/20 Overview: Added automatically from request for surgery [id number] CKD (chronic kidney disease) stage 3, GFR 30-59 ml/min 05/26/2017 10/04/2019 Type 2 DM with CKD stage 3 and hypertension 04/18/2017 09/17/2020 Type 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, uncontrolled(250.62) 07/23/2009 03/09/2011 Ulcer of other part of foot 06/30/2009 03/09/2011 Dermatophytosis of nail 04/22/200902/25 Acute pain of right shoulder 09/25/2008 04/27/2022 Overview: Right. Other specified gastritis wi thout mention of hemorrhage 09/18/2008 07/07/2015 Hypertrophy of prostate with out urinary obstruction and other lower urinary tract symptoms (LUTS) 09/18/2008 09/08/2011 Background diabetic retinopathy(362.01) 09/18/2008 06/30/2015 Erectile dysfunction associa violet with type 2 diabetes mellitus (HCC) 07/09/2008 04/27/2022 Polyneuropathy in diabetes 07/27/2005 1 06/27/2021 Type II or unspecified type diabetes mellitus without mention of complication, uncontrolled 07/27/2005 08/09/2008 Overview: Alb/Creat 10 in 7-08 A1C 7.9% in 01-01, 11.8% in 07-05 Creat 1.4 in 07-05 Asthma 07/07/2015 documented as of this encounter (statuses as of 06/09/2023) [facility] History of Past illness Narrative* Problem Noted Date Diagnosed Date Resolved Date Right foot ulcer, limited to breakdown of skin 04/20/2022 10/27/2022 Benign paroxysmal positional vertigo 09/28/2021 02/03/2022 Dizziness and giddiness 09/28/2021 08/ Strain of tendon of right rotator cuff 09/29/2020 02/03/2022 Weakness 09/29/2020 02/03/2022 Punctate keratitis, bilateral 06/22/2019 04/27/2022 Pseudophakia of both eyes 06/22/2019 Primary open angle glaucoma (POAG) of left eye, mild stage 01/09/2019 04/27/2022 Primary open angle glaucoma (POAG) of right eye, severe stage 09/19/2018 04/27/2022 Vitreous hemorrhage 04/19/2018 04/27/20 22 Overview: Added automatically from request for surgery [id number] CKD (chronic kidney disease) stage 3, GFR 30-59 ml/min 05/26/2017 10/04/2019 Type 2 DM with CKD stage 3 and hypertension 04/18/2017 09/17/2020 Type 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, uncontrolled(250.62) 07/23/2009 03/09/2011 Ulcer of other part of foot 06/30/2009 03/09/2011 Dermatophytosis of nail 04/22/200902/25 Acute pain of right shoulder 09/25/2008 04/27/2022 Overview: Right. Other specified gastritis wi thout mention of hemorrhage 09/18/2008 07/07/2015 Hypertrophy of prostate with out urinary obstruction and other lower urinary tract symptoms (LUTS) 09/18/2008 09/08/2011 Background diabetic retinopathy(362.01) 09/18/2008 06/30/2015 Erectile dysfunction associa violet with type 2 diabetes mellitus (HCC) 07/09/2008 04/27/2022 Polyneuropathy in diabetes 07/27/2005 1 06/27/2021 Type II or unspecified type diabetes mellitus without mention of complication, uncontrolled 07/27/2005 08/09/2008 Overview: Alb/Creat 10 in 7-08 A1C 7.9% in 7-08, 11.8% in -09 Creat 1.4 in - Asthma 07/07/2015 documented as of this encounter (statuses as of 06/19/2023) [facility] History of Past illness Narrative* Problem Noted Date Diagnosed Date Resolved Date Right foot ulcer, limited to breakdown of skin 04/20/2022 10/27/2022 Benign paroxysmal positional vertigo 09/28/2021 02/03/2022 Dizziness and giddiness 09/28/202101/25 Strain of tendon of right rotator cuff 09/29/2020 02/03/2022 Weakness 09/29/2020 02/03/2022 Punctate keratitis, bilateral 06/22/2019 04/27/2022 Pseudophakia of both eyes 06/22/2019 Primary open angle glaucoma (POAG) of left eye, mild stage 01/09/2019 04/27/2022 Primary open angle glaucoma (POAG) of right eye, severe stage 09/19/2018 04/27/2022 Vitreous hemorrhage 04/19/2018 04/27/20 Overview: Added automatically from request for surgery [id number] CKD (chronic kidney disease) stage 3, GFR 30-59 ml/min 05/26/2017 10/04/2019 Type 2 DM with CKD stage 3 and hypertension 04/18/2017 09/17/2020 Type 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, uncontrolled(250.62) 07/23/2009 03/09/2011 Ulcer of other part of foot 06/30/2009 03/09/2011 Dermatophytosis of nail 04/22/200902/25 Acute pain of right shoulder 09/25/2008 04/27/2022 Overview: Right. Other specified gastritis wi thout mention of hemorrhage 09/18/2008 07/07/2015 Hypertrophy of prostate with out urinary obstruction and other lower urinary tract symptoms (LUTS) 09/18/2008 09/08/2011 Background diabetic retinopathy(362.01) 09/18/2008 06/30/2015 Erectile dysfunction associa violet with type 2 diabetes mellitus (HCC) 07/09/2008 04/27/2022 Polyneuropathy in diabetes 07/27/2005 1 06/27/2021 Type II or unspecified type diabetes mellitus without mention of complication, uncontrolled 07/27/2005 08/09/2008 Overview: Alb/Creat 10 in - A1C 7.9% in -, 11.8% in - Creat 1.4 in - Asthma 07/07/2015 documented as of this encounter (statuses as of 06/20/2023) [facility] History of Present illness Narrative* Natalya Jordan DPM - 04/20/2022 1:48 PM EDT Images from the original note were not included. CHIEF COMPLAINT: right plantar hallux ulcer DM2 a1c 5.7 neuro DLS 04/07/22 HISTORY OF PRESENT ILLNESS: Patient presents for right plantar hallux ulcer. He relates he generally gets a callus in this area. He relates his callus fell off on 04/05/22 and he had underlying wound. He relates he saw his kidney doctor who referred him to the [facility]. He had wound dressed at kidney doctor's office with a salve and bandage that he has left on since appointment earlier this week. He is established with Dr Eric. He goes every 6 months for RC. He has DM shoes from him that heisn't wearing today. Relates history of trauma to right great toe. Notes he started getting callus to plantar right great toe after this incident. Patient has neuropathy with numbness. Patient denies N/F/V/C/CP/SOB. PHYSICAL EXAMINATION: Vascular Exam: BL Foot DP / PT pulses +2/4 CFT less than 3 seconds to digits, skin temp warm to warm from proximal to distal BL Foot Dermatologic Exam: RIGHT plantar lateral hallux wound predebridement measures 1.2x0.7x0.1cm and post debridement measures 0.5x0.9x0.2cm with 75:25 granular fibrotic base, surrounding maceration, surrounding slough, no erythema, no purulence, no probe to bone, no malodor, moderate serosanginous drainage. Into level ofSUBCUTANEOUS TISSUE Neurologic Exam: Comments/Other Findings: Vibratory sensations absent BL at the MPJ with tuning fork. Protective sensations absent at the digits BL tested with 5.07 monofilament. sharp and light, and temperature sensations intact bl. Muscle Testing of the Extensors, Flexors, Evertors (peroneals), and Invertors (posterior tibialis) BL leg shows normal 5/5 strength at this time Orthopedic Exam: Additional Orthopedic Findings: RIGHT decreased 1st MPJ and IPJ ROM RIGHT foot contracture of lesser digits DIAGNOSIS: Skin ulcer of right great toe, limited to breakdown of skin Type 2 diabetes mellitus with foot ulcer Type 2 diabetes mellitus with diabetic polyneuropathy Hallux limitus of right foot Hammertoe of right foot PLAN AND TREATMENT: ASSESMENT & PLAN BL Foot and Ankle and Lower extremity Exam and Evaluation carried out with a treatment plan reviewed with the patient and findings discussed with patient including alternatives, benefits, complications and risks. TESTS / IMAGING / X-RAY EXAM 12/17/21 PVR: RIGHT SIDE Resting right ankle brachial index: 1.36 Right toe brachial index: 1.05 Normal ankle brachial index at rest in the right leg. Normal toe brachial index at rest in the right leg. Right ankle: Normal at rest. LEFT SIDE Resting left ankle brachial index: 1.34 Left toe brachial index: 1.16 Normal ankle brachial index at rest in the left leg. Normal toe brachial index at rest in the left leg. Left ankle: Normal at rest. RIGHT plantar lateral great toe ulcer treated with sharp excisional debridement carried out of the wound with non selective sharp excisional debridement past the dermis into SUBCUTANEOUS level with use of curette and 15 scalpel blade. Devitalized tissue removed. We then flushed out the wound with wound wash sterile saline. Area numbed with lidocaine gel if sensate prior. Discussed importance in offloading, proper nutrition including blood sugar control and getting enough protein and vitamins, infection prevention, proper wound care in wound healing. Also discussed detrimental impact of smoking on healing. Reviewed proper wound care with patient. Dressing was applied today. To watch for signs of infection both local and systemic. These were reviewed with the patient. If seen to contact office or go to ED. To continue wound care consisting of washing the foot with soap and water or vashe solution. Then to apply dressing consisting of betadine, silver alginate, SAP. Discussed need to wear DM shoes to offload, presents in slippers Keep appointment with Dr Eric next week. Discussed he should go more frequently than every 6 months to keep callus better controlled to prevent wounds Follow up in 2 weeks for ulcer check and to get base line XR Skin ulcer of right great toe, limited to breakdown of skin 707.15 L97.511 & Type 2 diabetes mellitus with foot ulcer 250.80 E11.621 & Type 2 diabetes mellitus with diabetic polyneuropathy 250.60 E11.42 & Hallux limitus of right foot 735.8 M20.5X1 & Hammertoe of right foot 735.4 M20.41 [facility] Instructions* Patient Instructions* Ivett Scherer RN - 04/19/2022 4:03 PM EDT WOUND CARE INSTRUCTIONS- Esvin West Sr. Wound location: Right Great Toe & Right Second Toe 1. Wash your hands with soap and water before and after wound care. 2. Gather all supplies needed. 3. Wash wound with wound wash with dial soap and water. Pat dry. (Using it's own towel to dry the wound area) 4. [place] wound and krystyna-wound with betadine. 5. Apply Triple antibiotic to wound bed. 6. Apply to the wound base: calcium alginate ag 7. Cover with 4x4 gauze and wrap with 2 conform roll. Secure with tape. 8. Change your dressing: Daily or sooner if wet. Apply Tubi-executive administrative assistant to right leg. Apply in the morning and remove at bedtime. COMPRESSION : Keep dressing dry and intact until next wound care appointment. Compression wrap mustbe removed if: It becomes wet or soiled If you have numbness or tingling in your foot or toes If you have increased pain If toes become cold or discolored - Avoid sitting with legs in a dependent position or standing for long periods of time. - Attempt to lay flat and elevate your legs above the level of your heart 2-3 times daily, for 30 minutes at a time. - Be sure to continue heel lifts and ankle exercises to mimic writing the alphabet with your foot, as instructed - If it becomes necessary to remove the wrap, do so by unwinding it. Apply clean dressing as instructed and notify the wound care center. To give your wound the best chance to heal: - Eat three balanced meals daily focusing on the protein - Control swelling by elevating the extremity above your heart - Control your blood sugar. Keep blood sugar less than 200 - Complete your wound care instructions - Vitamin C 500 mg twice daily - Multiple Vitamin Daily - Drink a protein shake daily - Premiere Clear or Glucerna for Diabetic patients and Nepro for Chronic Kidney Disease patients. Contact your Kidney doctor Report any of the following changes [phone] or go to the Emergency Department: Fever or chills Increased drainage Green or yellow drainage Foul odor Increased pain Hardness around the wound Redness, warmth or swelling of the surrounding tissue Color change to the wound PLAN/ORDERS: Return to the wound center to see Dr. Jordan/Dr. Campbell in 1 week - sooner if a problem. Continue aggressive nutritional support for optimal wound healing. PRISM: Visit your office coordinator receptionist every 10-12 weeks for callous control. Natalya Jordan DPM/ROME/SP documented in [facility] encounterThe [facility] Nurse Note* Ivett Scherer RN - 04/19/2022 4:01 PM EDT Nursing Documentation Pertinent Medical History: long hx of callous, CKD, HTN, DM Wound Etiology according to patient: Callous fell off - wound beneath Patient arrived via: ambulatory with Home Care Company/Nursing Facility: none Consent captured for debridement per [place] until September 2022 Consent captured for debridement per [place] until September 2022 Anticoagulant Therapy: ASA 81 ACTIVE CARE PER PROVIDER: Lynn Campbell DPM WOUND ASSESSMENT: Refer to Provider's Wound Assessment Note VASCULAR ASSESSMENT BY PROVIDER: N/per provider CHF History: denies EDEMA: Right foot: None Right calf: 1+ Left foot: None Left Calf: None Other: N/A MEASUREMENTS: in CM Right Calf: 31.5 Right Ankle: 23.5 Left Calf: 32.4 Left Ankle: 23.0 Length: 49.8 WOUND PHOTOGRAPHY: None DEBRIDEMENT PROCEDURE BY PROVIDER: Anesthetic Used: Lidogel 2% applied by Ivett Monte RN Wound # 1 Other procedure: N/A Specimen collected: N/A WOUND TREATMENT PER MD ORDER: Refer to provider's note. Wounds cleansed by mechanical debridement to allow provider to visualize wound base WOUND #1 - LOCATION: Right Hallux - Medial Plantar Surface (Top of callous fell off 04/05/22) Debridement Provider: SubQ Post debridement measurements if applicable: L: 1.0 cm x W: 0.5 cm x D: 0.1 cm Cleansed with: Betadine Applied to krystyna-wound skin: Betadine Applied to wound bed: Silver Alginate Covered and secured with: 2 Conform Other: Single layer of Tubi-executive administrative assistant size D. WOUND # 2 - LOCATION: Right Second Toe - Formed from burst blister DEBRIDEMENT: SubQ Post debridement measurements if applicable: L: 1.0 cm x W: 0.8 cm x D: 0.1 cm Cleansed with: Betadine Applied to krystyna-wound skin: Betadine Applied to wound bed: Silver Alginate Covered and secured with: 2 Conform Other: Single layer of Tubi-executive administrative assistant size D. COMPRESSION: Single layer Tubi-executive administrative assistant size D SPECIAL NEEDS: Coordination of care - [facility] for wound supplies Emotional support N/A OR set-up N/A M[employer]ers [employer] Acquis[employer] Manager N/A Incontinence needs N/A DISCHARGED in stable condition to: Ambulatory Global surgical period dates if applicable: N/A PLAN/ORDERS: Return to the wound center to see Dr. Jordan/Dr. Campbell in 1 week - sooner if a problem. Continue aggressive nutritional support for optimal wound healing. [facility]: Visit your office coordinator receptionist every 10-12 weeks for callous control. EDUCATION: The patient/family was instructed how to cleanse the wound(s). Visual demonstration on how to applythe dressing with teach back method. Signs & symptoms of infection were reviewed: Increased redness, swelling, pain, green/yellow drainage, fever and/or chills would all need to be evaluated by a Physician. Patient received typed home-going wound care instructions and has expressed intent to comply. OTHER EDUCATION: Educated about tubi-executive administrative assistant and changes to wound care. Education performed regarding lymphedema/edema: Elevation of extremity above the heart for 30 minutes three times daily and as needed Exercise such as writing the ABC's with your toes in the air, walking and/or calf pumps Wearing compression as ordered by provider Diet controlling of sodium as instructed by provider Use of medication to help control edema. UNIVERSAL PROTOCOL / SAFETY CHECKLIST Procedure to be Performed: serial sharp debridement of the Right Great Toe Sign In: 1616 A Moment of CARE was completed. Personnel directly involved with the procedure wore the appropriate PPE (Personal Protective Equipment). Patient/Surrogate Stated/Verified: PATIENT VERIFIED(optional for EMERGENT procedures): Patient name, Date of , Relevant allergies, and The intended procedure Time Out Communication: 1616 Intended patient and procedure match the source documents. Consent documented and matches the intended procedure. No relevant labs, photos, and/or imaging studies were applicable for review. Sign Out: 1626 SIGN OUT (optional for EMERGENT procedures): No specimen collected. Current HBOT Status: Active or Complete - see screening below WOUND CENTER HYPERBARIC OXYGEN THERAPY SCREENING 1. Is the patient diabetic? (If No, skip to question 5) Yes 2. Does the patient have a lower extremity wound? Yes 3. Is there exposed/involved tendon or bone? No 4. Has the wound been present for 30 days? Yes If Yes to ALL questions above, consult the Hyperbaric Center 5. Has the patient been diagnosed with osteomyelitis? No 6. Has the patient had a previous skin graft or flap at the wound? No 7. Has the patient had or been offered vascular intervention/evaluation? No 8. Does the patient have a wound at an amputation site? No 9. Has the patient had radiation therapy at the site of the problem? No If Yes to ANY of questions 5-9, consult the Hyperbaric Center Ivett Scherer RN/SP documented in this encounterThe [facility] Miscellaneous Notes* Telephone Encounter - Haydee Christina APRN.CNP - 04/12/2022 1:29 PM EDT Called pt directly. Ok to take 500mg Vit C twice daily, but would not increase past that. Ok for protein drink- suggest Glucerna d/t diabetes and asked that he limit protein to no more [id number] per day. Jardiance has worked to decrease the protein in his urine. Would recommend taking it with food if he feels it is dropping sugars in the morning. He will take with breakfast. We will continue to watch kidney function. Limit just a bit the potassium foods. Plan to follow up as discussed at recent visit, but offered he call for any questions in the meantime. * Telephone Encounter - Makenna Wallace - 04/12/2022 10:00 AM EDT 1-Patient calling into office. Advised him of this message,did not voice understanding. Please go over again when calling patient back. 2-Patient initial reason for calling was to go over request that wound care center placed for him. He was told to consult with [facility] regarding their recommendations. - Vitamin C 500 mg twice daily - Multiple Vitamin Daily - Drink a protein shake daily - Premiere Clear or Glucerna for Diabetic patients and Nepro for Chronic Kidney Disease patients. Contact your Kidney doctor 3-He read taking Jardiance could cause a rapid drop in blood sugar and would like to discuss that. * Telephone Encounter - Jasmin Kulkarni RN - 04/12/2022 9:17 AM EDT Left voicemail message requesting patient return call to office for results. Jasmin Kulkarni RN * Telephone Encounter - Jasmin Kulkarni RN - 04/12/2022 9:16 AM EDT ----- Message from Haydee Christina APRN.SHRIMP CLEANER sent at 04/11/2022 8:27 AM EDT ----- Please let him now that the protein in his urine improved to normal levels- likely because of the Jardiance His creatinine level and kidney function dipped just a little. He's still stage 3 kidney disease and we will continue to watch it. His potassium is up a little. He should not eliminate, but just decrease a bit on his potassium foods. Foods high in potassium are bananas, potatoes, oranges, tomatoes, chocolate, spinach, prunes andavocados. Thanks so much! documented in this encounterThe [facility] Nurse Note* Catalina Schmid RN - 04/12/2022 11:16 AM EDT PRISM: Leticia has provided service for the patient with no further action required * Catalina Schmid RN - 04/09/2022 8:38 AM EDT Nursing Documentation Pertinent Medical History: long hx of callous, CKD, HTN, DM Wound Etiology according to patient: Jack fell off - wound beneath Patient arrived via: ambulatory with Home Care Company/Nursing Facility: none Consent captured for debridement per [place] until September 2022 Anticoagulant Therapy: ASA 81 ACTIVE CARE PER PROVIDER: Natalya WOUND ASSESSMENT: Refer to Provider's Wound Assessment Note VASCULAR ASSESSMENT BY PROVIDER: N/per provider CHF History: denies EDEMA: Right foot: none Right calf: none Left foot: none Left Calf: none Other: MEASUREMENTS: in CM Right Calf: 31.5 Right Ankle:23.5 Left Calf: 33.2 cm Left Ankle: 22.0 cm Length: 49.8 cm WOUND PHOTOGRAPHY: YES DEBRIDEMENT PROCEDURE BY PROVIDER: Anesthetic Used: lido gel 2% applied by Ivett Monte RN Wound # 1 Other procedure: Specimen collected: WOUND TREATMENT PER MD ORDER: Wounds cleansed by mechanical debridement to allow provider to visualize wound base WOUND # 1 LOCATION: Right Hallux - Medial Plantar Surface (Top of callous fell off 04/05/22) L: 1.5 cm x W: 0.9 cm x D: 0.2 cm Debridement Provider: sq Circumferentially macerated Cleansed with: betadine Applied to krystyna-wound skin: betadine Applied to wound bed: calcium alginate ag Covered and secured with: 4x4 border gauze Other: COMPRESSION: N/A SPECIAL NEEDS: Coordination of care Leticia Arnold to order WC Supplies Emotional support N/A OR set-up N/A Mergers And Acquisitions Manager N/A Incontinence needs N/A DISCHARGED in stable condition to: home with - ambulatory Global surgical period dates if applicable: N/A PLAN/ORDERS: Return to the wound center to see Dr. Julian ELIAS in 2 weeks - sooner if a problem PVR'S/Venous incompetency/pre-albumin/x-ray if wound is older than 30 days Continue aggressive nutritional support for optimal wound healing [facility]: - Catalina will order supplies, please call in 24 hours if you've not heard from [facility] Visit your office coordinator receptionist every 10-12 weeks for callous control EDUCATION: The patient/family was instructed how to cleanse the wound(s). Visual demonstration on how to applythe dressing with teach back method. Signs & symptoms of infection were reviewed: Increased redness, swelling, pain, green/yellow drainage, fever and/or chills would all need to be evaluated by a Physician. Patient received typed home-going wound care instructions and has expressed intent to comply. OTHER EDUCATION: New patient New Wound Care Education performed regarding lymphedema/edema: Elevation of extremity above the heart for 30 minutes three times daily and as needed Exercise such as writing the ABC's with your toes in the air, walking and/or calf pumps Wearing compression as ordered by provider Diet controlling of sodium as instructed by provider Use of medication to help control edema. ____ UNIVERSAL PROTOCOL / SAFETY CHECKLIST Procedure to be Performed: serial sharp debridement of the Right Great Toe Sign In: 0835 A Moment of CARE was completed. Personnel directly involved with the procedure wore the appropriate PPE (Personal Protective Equipment). Patient/Surrogate Stated/Verified: PATIENT VERIFIED(optional for EMERGENT procedures): Patient name, Date of , Relevant allergies, and The intended procedure Time Out Communication: 0874 Intended patient and procedure match the source documents. Consent documented and matches the intended procedure. No relevant labs, photos, and/or imaging studies were applicable for review. Sign Out: 0935 SIGN OUT (optional for EMERGENT procedures): No specimen collected. Current HBOT Status: Active or Complete - see screening below WOUND CENTER HYPERBARIC OXYGEN THERAPY SCREENING 1. Is the patient diabetic? (If No, skip to question 5) Yes 2. Does the patient have a lower extremity wound? Yes 3. Is there exposed/involved tendon or bone? No 4. Has the wound been present for 30 days? Yes If Yes to ALL questions above, consult the Hyperbaric Center 5. Has the patient been diagnosed with osteomyelitis? No 6. Has the patient had a previous skin graft or flap at the wound? No 7. Has the patient had or been offered vascular intervention/evaluation? No 8. Does the patient have a wound at an amputation site? No 9. Has the patient had radiation therapy at the site of the problem? No If Yes to ANY of questions 5-9, [facility] documented in this encounterThe [facility]10-17-[facility]22 Miscellaneous Notes* Telephone Encounter - Yessica Méndez RN - 04/12/2022 9:07 AM EDT Images from the original note were not included. Marsha Eric You; [facility] Podiatry Pool 3 days ago It looks as though he has already seen the wound center. I would defer to their recommendations until I see the foot physically. Marsha Eric DPM Phone call to patient. Patient confirms that he is going to [facility] and will continue to do so for care of his wound. * Telephone Encounter - Komal Alvarez RN - 04/07/2022 12:44 PM EDT Esvin called. He has an appointment with Dr. Eric on 04/21/2022 for the open area on his toe. Esvin would like to know how to care for the wound until he is seen. Komal Alvarez RN * Telephone Encounter - Ingrid Ulloauirre - 04/06/2022 10:29 AM EDT Patient recently had a callus removed, it has since then left an open wound with blood.Please advice and assist. Ingrid REGINA documented in this encounterThe [facility] Hospital10-14-2022 Instructions* Patient Instructions* Catalina Schmid RN - 04/09/2022 8:40 AM EDT WOUND CARE INSTRUCTIONS- Esvin West Sr. Wound location: Right Great Toe 1. Wash your hands with soap and water before and after wound care. 2. Gather all supplies needed. 3. Wash wound with wound wash with dial soap and water. Pat dry. (Using it's own towel to dry the wound area) 4. [place] wound and krystyna-wound with betadine 5. Apply to the wound base: calcium alginate ag 5. Cover with : 4x4 Border Gauze 6. Change your dressing: every day or sooner if wet To give your wound the best chance to heal: - Eat three balanced meals daily focusing on the protein - Control swelling by elevating the extremity above your heart - Control your blood sugar. Keep blood sugar less than 200 - Complete your wound care instructions - Vitamin C 500 mg twice daily - Multiple Vitamin Daily - Drink a protein shake daily - Premiere Clear or Glucerna for Diabetic patients and Nepro for Chronic Kidney Disease patients. Contact your Kidney doctor Graft:(if applicable) It can be normal to have some odor coming from your wound if you've had a graft application. This can be normal due to using an occlusive dressing. If you have an odor plus signs and symptoms of infection(as listed below), Please call the wound center for further instruction. Report any of the following changes [phone] or go to the Emergency Department: Fever or chills Increased drainage Green or yellow drainage Foul odor Increased pain Hardness around the wound Redness, warmth or swelling of the surrounding tissue Color change to the wound PLAN/ORDERS: Return to the wound center to see Dr. Julian ELIAS in 2 weeks - sooner if a problem PVR'S/Venous incompetency/pre-albumin/x-ray if wound is older than 30 days Continue aggressive nutritional support for optimal wound healing [facility]: - Catalina will order supplies, please call in 24 hours if you've not heard from [facility] Visit your office coordinator receptionist every 10-12 weeks for callous control Natalya Jordan DPM/johnson/rome documented in this encounterThe [facility]10-13-2022 Instructions* Patient Instructions* Haydee Christina APRN.SHRIMP CLEANER - 04/08/2022 11:51 AM EDT PLAN: -Please get labs drawn today or within the next week. I will contact you via phone with results. -Keep doing what you are doing -Discussed need for good diabetes, blood pressure and cholesterol control to prevent disease progression -Recommend BP goal of 130/80 or less. Please contact the office if your blood pressure is less [id number]/70 or higher than 160/90 -Follow low salt diet. (1/2 tsp salt) <2 grams -Please watch your protein intake and limit it to 3 ounces of protein per meal -Recommend HgbA1c of 7 or less as CKD goal. -Please avoid Advil, Ibuprofen(Motrin), Aleve(Naproxen), Meloxicam(Mobic), diclofenac and other pain/arthritis medications called NSAIDS. It is ok to take acetaminophen (Tylenol) for pain as needed -Please avoid contrast dye with imaging. If a provider wants to order CT or MRI with contrast, please let them know you have decreased kidney function. -Increase activity as tolerated. RTC [address] Krishnan sooner if indicated by lab results Please bring a complete list of your medications, the dosage and times taken - to every visit. Please contact me by phone or via My Chart for any questions or concerns. We want to know that ALL of your concerns/needs relevant to this visit- were met today and that we have hopefully exceeded your expectations. If not-please let us know how we can improve our service to you by calling [phone] You may be receiving a survey regarding your care today. If you do, please take a few minutes to fill it out and send it back. It would be greatly appreciated. documented in this encounterThe [facility]10-13-2022 History of Present illness Narrative* Haydee Christina APRN.KAMILA - 04/08/2022 11:00 AM EDT [facility] DEPARTMENT OF KIDNEY MEDICINE CHIEF COMPLAINT: Follow up for CKD. HPI: Pt is an 77 year old male being seen today in FU for CKD3b with proteinuria likely in the setting of diabetic nephropathy and hypertensive nephrosclerosis. PMH: anemia, BPH, hyperlipidemia, hyperkalemia and glaucoma. Last seen by Dr Krishnan 10/14/21. Started on Jardiance 10mg. Noticed it dropped blood sugars quickly at first, but seems better now Since last visit doing well- had blister on toe and sees wound center in [place] tomorrow Feels well today. Still has episodes of vertigo intermittently BPs at home 120-130/60s Blood sugars at home 120-130 fasting Medication adherence is good Avoids NSAIDS Follows low salt diet Last visit w opth 02/23/22 Endo 01/01/22 PCP 12/23/21 Drinking 56oz water per day sometimes a small glass of juice Cost of Jardiance is expensive and his plan changes 04/10. Wanted to try to switch to Farxiga, but when entered it is not covered and insurance recommends Jardiance or Invokana. 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 Benign paroxysmal positional vertigo 09/28/2021 Cataract of left eye Chronic kidney disease, unspecified CKD (chronic kidney disease) stage 3, GFR 30-59 ml/min (HCC) 05/26/2017 Coloboma of iris OD Depressive disorder, not elsewhere classified Erectile dysfunction associated with type 2 diabetes mellitus (HCC) 07/09/2008 Esophageal reflux Essential hypertension, benign Hyperplasia of prostate Macular edema dme od Other and unspecified hyperlipidemia Other specified anemias Other specified gastritis without mention of hemorrhage 09/18/2008 Personal history of colonic polyps 08/04/2016 Primary open angle glaucoma OU Proliferative diabetic retinopathy(362.02) Pseudophakia of right eye Shoulder pain 09/25/2008 Right. Tubular adenoma of colon 08/10/2016 Type II or unspecified type diabetes mellitus with ophthalmic manifestations, uncontrolled(250.52) 09/18/2008 [facility] Unspecified asthma(493.90) Vitreous hemorrhage of left eye (HCC) Current Outpatient Medications on File Prior to Visit Medication Sig meclizine (ANTIVERT) 25 mg tab Take 1 tablet by mouth three times daily as needed. flash glucose sensor ([employer] Ada SoftwareSTYLE DIANNE 14 DAY SENSOR) kit 1 Each every 2 weeks. Diagnoses: ICD10: E11.22, N18.32, Z79.4; E11.42, Z79.4. Sig: Check glucose 4 or more times per day. Patient on multiple insulin doses. Insulin [place], Disposable, (1ST TIER UNIFINE PENTIPS) 31 gauge x 3/16 Use as directed 4 times a day. Dx: E11.65 cyclobenzaprine (FLEXERIL) 10 mg tablet Take 1 tablet by mouth twice daily as needed for muscle spasm. insulin glargine (LANTUS SOLOSTAR U-100 INSULIN) 100 unit/mL (3 mL) Inject subcutaneously 25 units daily in the AM insulin lispro (HUMALOG KWIKPEN INSULIN) 100 unit/mL Inject subcutaneously TID meals per SS up to 15 units daily NIFEdipine ER (PROCARDIA XL) 90 mg 24 hr tablet Take 1 tablet by mouth once daily. losartan (COZAAR) 50 mg tablet Take 1 tablet by mouth once daily. pravastatin (PRAVACHOL) 80 mg tablet Take 1 tablet by mouth once daily. For cholesterol. furosemide (LASIX) 40 mg tablet Take 1 tablet by mouth once daily. gabapentin (NEURONTIN) 300 mg capsule Take 1 capsule by mouth three times daily for 180 days. empagliflozin (JARDIANCE) 10 mg tablet Take 1 tablet by mouth daily with breakfast. gabapentin (NEURONTIN) 300 mg capsule Take 1 capsule by mouth three times daily for 10 days. promethazine (PHENERGAN) 25 mg tablet Take 1 tablet by mouth every 6 hours as needed. mupirocin (BACTROBAN) 2 % ointment Apply 1 application to affected area three times daily. latanoprost (XALATAN) 0.005 % ophthalmic solution INSTILL 1 DROP IN BOTH EYES DAILY AT BEDTIME Lancets lancets Test blood sugar(s) 3 times daily. Dx: Type 2 DM - Uncontrolled Insulin: Yes blood sugar diagnostic (BLOOD GLUCOSE TEST) test strip Test blood sugar(s) 3 times daily. Dx: Type 2 DM - Uncontrolled Insulin: Yes dorzolamide-timolol (COSOPT) 22.3-6.8 mg/mL ophthalmic solution Use 1 Drop in both eyes twice daily. Use at 8 AM and 4 PM flash glucose scanning reader ([employer]eq DIANNE 14 DAY READER) Diagnoses: ICD10: E11.22, N18.32, Z79.4; E11.42, Z79.4. Sig: Check glucose 4 or more times per day. Patient on multiple insulin doses. cholecalciferol (VITAMIN D) 1,000 unit tab tablet Take 1 tablet by mouth once daily. cyanocobalamin (VITAMIN B-12) 1,000 mcg tab Take 1 tablet by mouth once daily. aspirin(ECOTRIN LOW STRENGTH 81 MG TAB) Take by mouth. No current facility-administered medications on file prior to visit. REVIEW OF SYSTEMS: Constitutional: denies fevers, chills Cardiovascular: denies chest pain or pressure, palpitations, dizziness, lightheadedness. Denies ROMAN. Admits to edema to intermittent lower leg edema at the end of the day. Wears light compression stockings. Finds elevation relieves edema Respiratory: denies cough Gastrointestinal: denies diarrhea, constipation, nausea or metallic taste. Appetite is good Genitourinary: denies frequency, pink or bloody urine or dysuria. Has 1-2 episodes of nocturia per night Does not interfere with sleep. Does feel he empties his bladder fully. Follows with urology Skin: denies pruritus, rash. Has diabetic lesion to his toes- sees Wound Center tomorrow Neurological: denies headache Psychiatric: denies depression or anxiety. Reports energy level is good PHYSICAL EXAM BP: BP 121/69 Pulse 60 Wt 88 kg (194 lb) BMI 27.06 kg/m BP - standardized method Pulse 1 BP #1: 116/68 Pulse #1: 60 beats/min 2 BP #2 : 119/69 Pulse #2 : 60 beats/min 3 BP #3 : 129/70 Pulse #3 : 60 beats/min Average Average BP: 121/69 Average Pulse: 60 beats/min Orthostatic vitals Supine Sitting Standing BP cuff location BP cuff size Comments for BP values First BP (right) First BP (left) Last 2 Encounter Wt Readings: Date: Wt: 01/14/2022 88.9 kg (196 lb) 01/01/2022 90.7 kg (200 lb) Constitutional: No acute distress, Responsive, Normal habitus, and Well-nourished Neck:Trachea midline No jugular venous distension Cardiovascular:No peripheral edema Regular rate and rhythm, normal S1 and S2, no murmurs Respiratory: Normal respiratory effort. Lungs clear bilaterally. Abdomen: Soft, non-tender, non-distended. Normal bowel sounds. Extremities: No peripheral edema Neurological: Alert and oriented x3. Psychiatric: Alert and oriented x self, place, time, and setting Normal mood/affect Very pleasant. Works hard to stay healthy Diagnostic tests reviewed for today's visit Labs: Needs updated labs RENAL KIDNEY STONE FLOWSHEET Latest Ref Rng & Units 06/15/2021 09/22/2021 EGFR, 45 EGFR, All Other >=60 mL/min/1.73m 38 32 (L) Creatinine 0.73 - 1.22 mg/dL 1.78 (H) 2.15 (H) BUN 9 - 24 mg/dL 24 39 (H) Sodium 136 - 144 mmol/L 140 142 Potassium 3.7 - 5.1 mmol/L 5.0 4.9 Chloride 97 - 105 mmol/L 105 107 (H) CO2 22 - 30 mmol/L 25 25 Glucose 74 - 99 mg/dL 177 (H) 107 (H) Calcium 8.5 - 10.2 mg/dL 8.9 9.7 Phosphorus 2.7 - 4.8 mg/dL 3.6 Albumin 3.9 - 4.9 g/dL 4.3 Kidney imagin03/28/17 kidney ultrasound. Per radiology report: IMPRESSION: No hydronephrosis. RESULT: The right kidney measures approximately 11.2 cm. The left kidney measures approximately 12 cm. There is no hydronephrosis or perinephric fluid collection. Prevoid urinary bladder volume is 3 cc. There is no postvoid residual. Ureteral jets were not assessed on this examination. ASSESSMENT: Pt is an 77 year old male being seen today in FU for CKD3b with proteinuria likely in the setting of diabetic nephropathy and hypertensive nephrosclerosis. PMH: anemia, BPH, hyperlipidemia, hyperkalemia and glaucoma. CKD Stage 3b with proteinuria likely in the setting of diabetic nephropathy and hypertensive nephrosclerosis. -Creatinine 2.15 mg/dL on Epic labs in August 2021. Above baseline -Her baseline serum creatinine around 1.9 mg/dL -Abnormal creatinine since: progressively since 2008 -Albuminuria: Albumin creatinine ratio 141 in August 2021 On ARB On Jardiance Compliment and serology negative in May 2019 HTN/Volume: - well controlled on current regimen. -Volume: euvolemic -Currently on nifedipine 90mg daily, losartan 50mg daily and furosemide 40mg daily Metabolic/electrolytes: K+- 4.9 wnl in August 2021 Co2- 25 wnl in August 2021 Anemia: -Hgb 12.0- below goal August 2021 at [facility] imported labs -denies overt losses denies -most recent colonoscopy 11/04/21 with recommendation to repeat in 5-10 yrs -continue to monitor along with iron stores to assess for need of ANALISA. Metabolic Bone: -Ca+ 9.7 wnl in August 2021 -Phos: 3.6 wnl in May 2021 -Vitamin D: will update -PTH: will update CV/Lipids: -hx of hyperlipidemia -on statin -recommend LDL goal of <100 to prevent progression of CKD. DM: -Last HgbA1c 5.7 wnl in December 2021 -follow up with PCP/endo PLAN: -Please get labs drawn today or within the next week. I will contact you via phone with results. -Keep doing what you are doing -Discussed need for good diabetes, blood pressure and cholesterol control to prevent disease progression -Recommend BP goal of 130/80 or less. Please contact the office if your blood pressure is less [id number] or higher than 160/90 -Follow low salt diet. (1/2 tsp salt) <2 grams -Please watch your protein intake and limit it to 3 ounces of protein per meal -Recommend HgbA1c of 7 or less as CKD goal. -Please avoid Advil, Ibuprofen(Motrin), Aleve(Naproxen), Meloxicam(Mobic), diclofenac and other pain/arthritis medications called NSAIDS. It is ok to take acetaminophen (Tylenol) for pain as needed -Please avoid contrast dye with imaging. If a provider wants to order CT or MRI with contrast, please let them know you have decreased kidney function. -Increase activity as tolerated. RTC [address] Krishnan sooner if indicated by lab results Haydee Christina CNP Spent 35 minutes in the visit and reviewing the chart. documented in this encounterThe [facility]10-12-2022 Miscellaneous Notes* Telephone Encounter - Casey Palacios RN - 04/07/2022 2:11 PM EDT Faxed wound center referral and ov notes to [facility], per Ivett request. Reports patient was just there. documented in this encounterThe [facility] Hospital10-12-2022 History of Present illness Narrative* Henrry Gonzalez MD - 04/07/2022 1:35 PM EDT Patient presents with: Toe Pain (Toe): R foot great toe pain after procedure (12/15) x1 week HPI: Skin Lesion: Location: right great toe Duration: callus came off 2 days ago Pruritis/Pain: NO Change: Reports he had a callus there when seen by podiatry in November. Drainage/blister/pustule/ulceration: bleeding Treatment: none MEDICATIONS: meclizine (ANTIVERT) 25 mg tab Take 1 tablet by mouth three times daily as needed. flash glucose sensor (FREESTYLE DIANNE 14 DAY SENSOR) kit 1 Each every 2 weeks. Diagnoses: ICD10: E11.22, N18.32, Z79.4; E11.42, Z79.4. Sig: Check glucose 4 or more times per day. Patient on multiple insulin doses. Insulin [place], Disposable, (1ST TIER UNIFINE PENTIPS) 31 gauge x 3/16 Use as directed 4 times a day. Dx: E11.65 cyclobenzaprine (FLEXERIL) 10 mg tablet Take 1 tablet by mouth twice daily as needed for muscle spasm. insulin glargine (LANTUS SOLOSTAR U-100 INSULIN) 100 unit/mL (3 mL) Inject subcutaneously 25 units daily in the AM insulin lispro (HUMALOG KWIKPEN INSULIN) 100 unit/mL Inject subcutaneously TID meals per SS up to 15 units daily NIFEdipine ER (PROCARDIA XL) 90 mg 24 hr tablet Take 1 tablet by mouth once daily. losartan (COZAAR) 50 mg tablet Take 1 tablet by mouth once daily. pravastatin (PRAVACHOL) 80 mg tablet Take 1 tablet by mouth once daily. For cholesterol. furosemide (LASIX) 40 mg tablet Take 1 tablet by mouth once daily. gabapentin (NEURONTIN) 300 mg capsule Take 1 capsule by mouth three times daily for 180 days. empagliflozin (JARDIANCE) 10 mg tablet Take 1 tablet by mouth daily with breakfast. gabapentin (NEURONTIN) 300 mg capsule Take 1 capsule by mouth three times daily for 10 days. promethazine (PHENERGAN) 25 mg tablet Take 1 tablet by mouth every 6 hours as needed. mupirocin (BACTROBAN) 2 % ointment Apply 1 application to affected area three times daily. latanoprost (XALATAN) 0.005 % ophthalmic solution INSTILL 1 DROP IN BOTH EYES DAILY AT BEDTIME Lancets lancets Test blood sugar(s) 3 times daily. Dx: Type 2 DM - Uncontrolled E11.65 Insulin: Yes blood sugar diagnostic (BLOOD GLUCOSE TEST) test strip Test blood sugar(s) 3 times daily. Dx: Type 2 DM - Uncontrolled E11.65 Insulin: Yes dorzolamide-timolol (COSOPT) 22.3-6.8 mg/mL ophthalmic solution Use 1 Drop in both eyes twice daily. Use at 8 AM and 4 PM flash glucose scanning reader ([employer]eq DIANNE 14 DAY READER) Diagnoses: ICD10: E11.22, N18.32, Z79.4; E11.42, Z79.4. Sig: Check glucose 4 or more times per day. Patient on multiple insulin doses. cholecalciferol (VITAMIN D) 1,000 unit tab tablet Take 1 tablet by mouth once daily. cyanocobalamin (VITAMIN B-12) 1,000 mcg tab Take 1 tablet by mouth once daily. aspirin(ECOTRIN LOW STRENGTH 81 MG TAB) Take by mouth. ALLERGIES: ALLERGIES Allergen Reactions Cortisone Other: See Comments Shunk real hot, as if someone threw boiling water on him Zestril [Lisinopril] Intolerance ARF, hypokalemia VITALS: BP 128/82 Pulse 66 Temp 36.5 C (97.7 F) Resp 20 Wt 88.4 kg (194 lb 12.8 oz) SpO2 97% BMI 27.17 kg/m PE: Pleasant, in no acute distress. Toe: right great. There is a 2.5cm blister on the anterior-inferior toe pad. The inferior 1/2 of the blister is peeled off. There is moist reddish base. Right 2nd toe. 5mm intradermal erythema on the tip of the toe. ASSESSMENT/PLAN: 1. Diabetic ulcer of toe of right foot associated with type 2 diabetes mellitus, limited to breakdown of skin (HCC) - ICD9: 250.80, 707.15, ICD10: E11.621, L97.511 No signs of infection. Dressed great toe with bacitracin on adhesive bandages. Advised the wounds on his toes look like blisters, and he should examine his shoes for friction points. - CONSULT TO [facility] [place] - he is established with [facility] wound care and will go there. Keep appointment with podiatry in a couple weeks. Henrry Gonzalez MD documented in this encounterThe [facility] Hospital08-30-2022 History of Present illness Narrative* Radha Addison, OD - 02/23/2022 9:31 AM EDT 1. Vitreous floaters of both eyes No new retinal pathology associated with single incidence of floaters in right eye Continue to observe but urged patient to follow-up marito with any changes 2. 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) Saw Dr. Finnegan in September Will continue to follow-up with him yearly 3. Primary open angle glaucoma (POAG) of both eyes, severe stage 4. Glaucomatous optic atrophy of both eyes Continue Cosopt twice daily and latanoprost daily in both eyes Follow-up as scheduled with Dr. Cohn in 1 month Radha Addison, OD February 23, 2022 9:31 AM documented in this encounterThe [facility]08-[facility]22 Miscellaneous Notes* Telephone Encounter - Catalina Cortez Pss - 02/22/2022 1:09 PM EDT Patient called back to check on status of call from nurse. Patient is anxious and is asking if he should make appointment or just speak with nurse. Please advise. * Telephone Encounter - Catalina Diego Rodriguez - 02/22/2022 8:12 AM EDT Patient called stating he has had floaters in his right eye since tue. Called to speak to clinical. Patient states if unable to reach at home number to please call cell. documented in this encounterThe [facility]08-10-2022 NoteHNO ID: [id number] Author: Brianna Gonzalez, PT Service: ? Author Type: Physical Therapist Type: Progress Notes Filed: 02/03/2022 10:31 AM Note Text: 02/03/2022 [facility] PHYSICAL THERAPY DISCONTINUANCE OF CARE Plan of Care Period: Start of Care Date: 09/28/21 Last Visit Date: 10/15/2021 Therapy Program: The following is a summary of the interventions provided for this episode of care; Neuromuscular re-education and Manual therapy Assessment: Based on most recent visit, patient was progressing as expected toward functional goals based on documented subjective information on progress. Unable to formally assess goal achievement, as patient has not returned to therapy or scheduled additional follow-up appointments. Reason for Discontinuation of Care: Patient has not returned to therapy or scheduled additional follow-up appointments. Brianna Gonzalez, [facility]08-05-2022 Miscellaneous Notes* Telephone Encounter - Rehana Crain LPN - 01/29/2022 10:45 AM EDT tam--01/14/22 Next ---04/27/22 Last refill--10/26/21 30 with 1 refill Last labs-- 01/01/22 documented in this encounterThe [facility]08-03-2022 Miscellaneous Notes* Telephone Encounter - Roma Hawkins LPN - 01/27/2022 8:06 AM EDT Below response left on identified vm. Roma Hawkins LPN * Telephone Encounter - Jesse Glover MD - 01/26/2022 11:25 PM EDT Please inform the patient. * Telephone Encounter - Roz Segovia LPN - 01/26/2022 3:25 PM EDT In review from 10/14/21 no PA was needed. The jardiance was covered unless pt has had an insurance change. If you double click on the med it tells you this. * Telephone Encounter - Neyda Bo LPN - 01/26/2022 9:49 AM EDT Pt calls in to report that [employer] sent him a letter stating they would not cover Jardiance 10 mg. Pt is asking if there is something comparable he could be prescribed. Pt reports no alternatives onformulary were sent with letter. Pt reports this was sent through Medicare. If no alternatives prior auth needed. Neyda Bo LPN documented in this encounterThe [facility]08-02-2022 Miscellaneous Notes* Telephone Encounter - Roz Segovia LPN - 01/26/2022 3:30 PM EDT He 01/14/22 appt was not for diabetes. The last office note 12/23/21 was faxed to [facility] at [phone]. * Telephone Encounter - Neyda Bo LPN - 01/26/2022 9:46 AM EDT Last appt: 01/14/22 - Next scheduled appt: 04/27/22 Pt is calling in to request RX to be faxed to [email or web address] @ [phone]. Patient has been identified by name and date of : Yes Pending Prescriptions Disp Refills FREESTYLE DIANNE 14 DAY SENSOR KIT 6 Each 3 Si Each every 2 weeks. Diagnoses: ICD10: E11.22, N18.32, Z79.4; E11.42, Z79.4. Sig: Check glucose 4 or more times per day. Patient on multiple insulin doses. CLARKE: No RX INSTRUCTIONS: Patient aware RX will be sent to pharmacy. No need to notify patient. Neyda Bo LPN documented in this encounterThe [facility]07-28-2022 History of Present illness Narrative* Haydee Christina APRN.KAIMLA - 01/21/2022 8:03 AM EDT Images from the original note were not included. documented in this encounterThe [facility] Hospital07-27-2022 Miscellaneous Notes* Telephone Encounter - Karina Lopez RN - 01/20/2022 4:42 PM EDT Patient has been identified by name and date of : Yes Pharmacy phones for refill(s): Pending Prescriptions Disp Refills PEN NEEDLE, DIABETIC 31 GAUGE X 3/16 400 Each 3 Sig: Use as directed 4 times a day. Dx: E11.65 CLARKE: No Date of last office visit with pcp: 01/14/2022 Future appt: 04/27/2022 Last 2 Encounter Wt Readings: Date: Wt: 01/14/2022 88.9 kg (196 lb) 01/01/2022 90.7 kg (200 lb) Previous labs/tests for medication: Blood Pressure: BUN (mg/dL) Date Value 09/22/2021 39 06/15/2021 24 Sodium (mmol/L) Date Value 09/22/2021 142 06/15/2021 140 Last 1 Encounter BP Readings: Date: BP: 01/14/2022 140/68 Liver Function: ALT (U/L) Date Value 09/03/2020 <5 AST (U/L) Date Value 09/03/2020 16 Please advise. Thank you. Karina Lopez RN documented in this encounterThe [facility]07-26-2022 Miscellaneous Notes* Telephone Encounter - Jazmine Krishnan DO - 01/19/2022 2:02 PM EDT Called patient. Addressed all of his concerns. If we could get come coupons for him, it would be great. * Telephone Encounter - Tori Damian RN - 01/19/2022 11:09 AM EDT spoke with the patient his stomach is upset in the morning after taking the medication and lasts for a few hours patient would like to stay on the medication as long as it is helping him and if he can get it witha co pay card message routed to Dr Krishnan and Haydee thank you * Telephone Encounter - Tori Damian RN - 01/18/2022 10:34 AM EDT message routed to Dr Krishnan please advise, thank you * Telephone Encounter - Makenna Wallace - 01/18/2022 10:18 AM EDT 1-upset stomach from taking Jardiance. Patient want to let you know., 2-Also, he was informed by his insurance he is in the gap coverage for the rest of the year. It will be $1500 a month for him to take this medication. Patient calling to find out if there is an alternate medication he can take or if he can at least take 1/2 pill dosage of this medication documented in this encounterThe [facility]07-26-2022 Miscellaneous Notes* Telephone Encounter - Tori Damian RN - 01/19/2022 1:48 PM EDT spoke with the patient and he said the dentist feels that his Diabetes and CKD contribute to his dental issues and need for having his teeth extracted. * Telephone Encounter - Tori Damian RN - 01/19/2022 11:17 AM EDT patient went to the dentist yesterday was told by the dentist that due to his Diabetes and kidney issues he may need to have all of his teeth pulled in the future the dentist suggested that he request a letter from Dr Krishnan describing his kidney issues which ifcan be submitted to his insurance to hopefully assist with getting the tooth extractions covered byhis insurance message routed to Dr Krishnan please advise, thank you documented in this encounterThe [facility]07-21-2022 History of Present illness Narrative* Jesse Glover MD - 01/14/2022 5:33 PM EDT This note was created using NoteWriter. Subjective Patient presents with: Flank Pain: right x 2 weeks Esvin West Sr. is a 76 year old male. 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 He felt he strained his right flank 2 weeks ago. This was slowly getting better, but sharp and bothersome at night when laying down with armsstretched. He did not take any medication for symptoms. Review of Systems Constitutional: Negative for appetite change and fever. Respiratory: Negative for cough and shortness of breath. Gastrointestinal: Negative for abdominal pain, nausea and vomiting. Genitourinary: Negative for dysuria and hematuria. Musculoskeletal: Negative for back pain. Skin: Negative for rash. ACTIVE PROBLEM LIST Anemia in Stage 3 Chronic Kidney Disease ([facility]) Essential Hypertension Hyperlipidemia Polyneuropathy in Diabetes ([facility]) Erectile Dysfunction Associated With Type 2 Diabetes Mellitus ([facility]) Overweight Acute Pain of Right Shoulder Bph With Obstruction/Lower Urinary Tract Symptoms Tubular Adenoma of Colon Secondary Hypertension Due to Renal Disease Vitreous Hemorrhage ([facility]) Glaucomatous Optic Atrophy of Both Eyes Visual Field Loss Primary Open Angle Glaucoma (Poag) of Right Eye, Severe Stage Primary Open Angle Glaucoma (Poag) of Left Eye, Mild Stage Secondary Renal Hyperparathyroidism ([facility]) Hyperkalemia 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, With Long-Term Current Use of Insulin ([facility]) Punctate Keratitis, Bilateral Pseudophakia of Both Eyes Type 2 Diabetes Mellitus With Diabetic Polyneuropathy, With Long-Term Current Use of Insulin ([facility]) Type 2 Diabetes Mellitus With Stage 3 Chronic Kidney Disease, With Long-Term Current Use of Insulin([facility]) Strain of Tendon of Right Rotator Cuff Weakness Numbness and Tingling of Right Arm Primary Open Angle Glaucoma (Poag) of Both Eyes, Severe Stage Benign Paroxysmal Positional Vertigo Dizziness and Giddiness Current Outpatient Medications Medication Sig insulin glargine (LANTUS SOLOSTAR U-100 INSULIN) 100 unit/mL (3 mL) Inject subcutaneously 25 units daily in the AM insulin lispro (HUMALOG KWIKPEN INSULIN) 100 unit/mL Inject subcutaneously TID meals per SS up to 15 units daily NIFEdipine ER (PROCARDIA XL) 90 mg 24 hr tablet Take 1 tablet by mouth once daily. losartan (COZAAR) 50 mg tablet Take 1 tablet by mouth once daily. pravastatin (PRAVACHOL) 80 mg tablet Take 1 tablet by mouth once daily. For cholesterol. furosemide (LASIX) 40 mg tablet Take 1 tablet by mouth once daily. gabapentin (NEURONTIN) 300 mg capsule Take 1 capsule by mouth three times daily for 180 days. empagliflozin (JARDIANCE) 10 mg tablet Take 1 tablet by mouth daily with breakfast. promethazine (PHENERGAN) 25 mg tablet Take 1 tablet by mouth every 6 hours as needed. mupirocin (BACTROBAN) 2 % ointment Apply 1 application to affected area three times daily. latanoprost (XALATAN) 0.005 % ophthalmic solution INSTILL 1 DROP IN BOTH EYES DAILY AT BEDTIME Lancets lancets Test blood sugar(s) 3 times daily. Dx: Type 2 DM - Uncontrolled E11.65 Insulin: Yes blood sugar diagnostic (BLOOD GLUCOSE TEST) test strip Test blood sugar(s) 3 times daily. Dx: Type 2 DM - Uncontrolled E11.65 Insulin: Yes dorzolamide-timolol (COSOPT) 22.3-6.8 mg/mL ophthalmic solution Use 1 Drop in both eyes twice daily. Use at 8 AM and 4 PM flash glucose sensor (FREESTYLE DIANNE 14 DAY SENSOR) kit 1 Each every 2 weeks. Diagnoses: ICD10: E11.22, N18.32, Z79.4; E11.42, Z79.4. Sig: Check glucose 4 or more times per day. Patient on multiple insulin doses. flash glucose scanning reader (FREESTYLE DIANNE 14 DAY READER) Diagnoses: ICD10: E11.22, N18.32, Z79.4; E11.42, Z79.4. Sig: Check glucose 4 or more times per day. Patient on multiple insulin doses. cholecalciferol (VITAMIN D) 1,000 unit tab tablet Take 1 tablet by mouth once daily. cyanocobalamin (VITAMIN B-12) 1,000 mcg tab Take 1 tablet by mouth once daily. NIFEdipine ER (PROCARDIA XL) 90 mg 24 hr tablet Take 1 tablet by mouth once daily. (Patient not taking: Reported on 01/14/2022 ) losartan (COZAAR) 50 mg tablet Take 1 tablet by mouth once daily. (Patient not taking: Reported on 01/14/2022 ) furosemide (LASIX) 40 mg tablet Take 1 tablet by mouth once daily. (Patient not taking: Reported on01/14/2022 ) meclizine (ANTIVERT) 25 mg tab Take 1 tablet by mouth three times daily as needed. gabapentin (NEURONTIN) 300 mg capsule Take 1 capsule by mouth three times daily for 10 days. Insulin [place], Disposable, (1ST TIER UNIFINE PENTIPS) 31 gauge x 3/16 Use as directed 4 times a day. Dx: E11.65 aspirin(ECOTRIN LOW STRENGTH 81 MG TAB) Take one(1) tablet daily. (Patient not taking: Take one(1) tablet daily.) No current facility-administered medications for this visit. Objective BP 140/68 Pulse 62 Temp 36.1 C (97 F) Resp 16 Wt 88.9 kg (196 lb) SpO2 98% BMI 27.34 kg/m Physical Exam Constitutional: General: He is not in acute distress. Cardiovascular: Rate and Rhythm: Normal rate and regular rhythm. Pulmonary: Effort: Pulmonary effort is normal. Breath sounds: Normal breath sounds. Chest: Chest wall: No tenderness. Abdominal: Tenderness: There is abdominal tenderness. There is no right CVA tenderness. Comments: Localized right flank muscular tenderness, spasm. Musculoskeletal: Lumbar back: No tenderness. Negative right straight leg raise test and negative left straight leg raise test. Neurological: Mental Status: He is alert. Gait: Gait normal. Assessment and Plan 1. Flank pain, acute - ICD9: 789.09, 338.19, ICD10: R10.9 (primary diagnosis) Muscular strain. - CYCLOBENZAPRINE 10 MG TABLET. Discussed medication dosage, usage, goals of therapy, and side effects. - Warm compress or heating pad prn. 2. Essential hypertension - ICD9: 401.9, ICD10: I10 - fair control Jesse Glover MD documented in this encounterThe [facility]07-15-2022 Miscellaneous Notes* Telephone Encounter - Bala Penny Ma - 01/08/2022 2:02 PM EDT Patient notified, verbalized understanding. Bala Penny Ma * Telephone Encounter - America Mcginnis APRN.CNP - 01/08/2022 12:25 PM EDT The following approved medication requests have been transmitted electronically. Signed Prescriptions Disp Refills NIFEdipine ER (PROCARDIA XL) 90 mg 24 hr tablet 30 tablet 0 Sig: Take 1 tablet by mouth once daily. CLARKE: No Authorizing Provider: AMERICA MCGINNIS losartan (COZAAR) 50 mg tablet 30 tablet 0 Sig: Take 1 tablet by mouth once daily. Authorizing Provider: AMERICA MCGINNIS furosemide (LASIX) 40 mg tablet 30 tablet 0 Sig: Take 1 tablet by mouth once daily. Authorizing Provider: AMERICA MCGINNIS APRN.CNP * Telephone Encounter - Willa Patel Pss - 01/08/2022 10:52 AM EDT Patient is not at home and remembered his sugar pills, but forgot his bp and water pills. Patient would like them sent the to [facility] in [place]. Please call patient at [phone]. documented in this encounterThe [facility]07-08-2022 Instructions* Patient Instructions* Chanda Phillips APRN.CNP - 01/01/2022 4:00 PM EDT 1. lantus 25 units daily. 2. Continue jardiance per nephrology. 3. Change humalog to a sliding scale at meals: If Blood Glucose (mg/dL) is < 150 Give 0 units 151-200 Give 2 unit 201-250 Give 3 units 251-300 Give 4 units >301 Give 5 units 4. Notify me if sugars are consistently over 150 or under 70. 5. Follow up in 6 months CRISS Douglass, SPECIALTY COOK, BILLING AND INSURANCE COORDINATOR-C, CDE Endocrinology [facility]/[address] [place] [address] Fax: documented in this encounterThe [facility]07-08-2022 History of Present illness Narrative* Chanda Phillips APRN.CNP - 01/01/2022 3:45 PM EDT Reason for Consultation: DM Type 2 Referring Physician: Jesse Glover MD [id number] [facility] [id number] HISTORY OF PRESENT ILLNESS Mr. West is a 76 year old male presenting here today for a follow up of DM Type 2. As I recall, hewas initially diagnosed with diabetes 1989.He has been on insulin since 2008 LV 06/16/21 A1C today is 5.7 Fhx of DM in mother, siblings, Maternal Aunt. Under the care of podiatry, nephrology Mild anemia, secondary hyperparathyroidism per nephrology Seeing cardiology in [place]. Denies hx of [place], CVA, stents, CABG/CAD Nephrology recently started SGLT2 History in addition to include: hypertension, hyperlipidemia, retinopathy, peripheral neuropathy and CKD, BPH, ED Current diabetes regimen is as follows: lantus 25 units daily in AM jardiance 10 mg daily --per nephrology humalog units TID meals.--take 1/2 the dose if BG is less then 120 Previous DM medications: Glimepiride tradjenta--cost Metformin--renal disease humalog 75/25 he is checking his blood glucose 4+ per day with Freestyle Dianne he does bring a log book today for review. LDE Blood Sugar Frequency: Freestyle Dianne 14 day download (12/19/21 to 01/01/22 ) In range 77% Low 0% very low 0% High 21% Very high 2% avg glucose 154 Estimated A1C 7.0 BG ranges: 56 to 256 BG is stable overnight No consistent spikes with meals. Hypoglycemia frequency: occasionally Hypoglycemia awareness: Yes Regarding symptoms of hypoglycemia, he is not experiencing any symptoms such as polyuria, polydipsia, nocturia or rapid weight loss or blurry vision, Overall, the patient has no acute complaints at this time. PAST MEDICAL HISTORY Diagnosis Date Anemia in stage 3 chronic kidney disease (HCC) Background diabetic retinopathy(362.01) 09/18/2008 [facility]. Cataract of left eye Chronic kidney disease, unspecified CKD (chronic kidney disease) stage 3, GFR 30-59 ml/min ([facility]) 05/26/2017 [place] OD Depressive disorder, not elsewhere classified Erectile dysfunction associated with type 2 diabetes mellitus (HCC) 07/09/2008 Esophageal reflux Essential hypertension, benign Hyperplasia of prostate Macular edema dme od Other and unspecified hyperlipidemia Other specified anemias Other specified gastritis without mention of hemorrhage 09/18/2008 Personal history of colonic polyps 08/04/2016 Primary open angle glaucoma OU Proliferative diabetic retinopathy(362.02) Pseudophakia of right eye Shoulder pain 09/25/2008 Right. Tubular adenoma of colon 08/10/2016 Type II or unspecified type diabetes mellitus with ophthalmic manifestations, uncontrolled(250.52) 09/18/2008 [facility] Unspecified asthma(493.90) Vitreous hemorrhage of left eye (HCC) PAST SURGICAL HISTORY Procedure Laterality Date AVASTIN (BEVACIZUMAB) 1.25MG INTRAVITREAL INJECTION OD (RIGHT EYE) Right 04/19/2018 LAST COLONOSCOPY 11/04/2021 COLONOSCOPY FLX DX W/COLLJ SPEC WHEN PFRMD 05/27/2003 Colonoscopy COLONOSCOPY GEN ANES 08/04/2016 COLONOSCOPY W/BIOPSY SINGLE/MULTIPLE 07/25/2013 Repeat due 2017 COLSC FLX W/RMVL OF TUMOR POLYP LESION SNARE TQ 08/04/2016 Repeat 07/2019 ESOPHAGOGASTRODUODENOSCOPY TRANSORAL DIAGNOSTIC 05/27/2003 EGD EYE SURGERY HX Right 05/02/2018 Pars plana vitrectomy, membrane peel, endolaser, and air fluid exchange right eye. LAPAROSCOPY SURG CHOLECYSTECTOMY 03/2003 Cholecystectomy, lap OPEN REPAIR OF ROTATOR CUFF ACUTE 04/24/2009 Rotator cuff repair, Right PANRETINAL PHOTOCOAGULATION (PRP) OD (RIGHT EYE) Right 08/29/2014 LAST ; PRP (Panretinal Photocoagulation) OD PANRETINAL PHOTOCOAGULATION (PRP) OS (LEFT EYE) Left 07/12/2013 #2 ; PRP (Panretinal Photocoagulation) OS PROSTATECTOMY SUPRAPUBIC SUBTOTAL 06/23/2011 for BPH VITRECTOMY MECHANICAL PARS PLANA Left 11/16/2016 PPV/MP/EL/AFX OS XCAPSL CTRC RMVL INSJ IO LENS PROSTH W/O ECP 02/07/2007 Cataract Removal right XCAPSL CTRC RMVL INSJ IO LENS PROSTH W/O ECP Left 11/16/2016 Cataract Extraction with PC IOL OS FAMILY HISTORY Problem Relation Age of Onset Breast Cancer Mother at age 55 COPD Father Black lung Breast Cancer Sister at age 54 Diabetes Brother No Ocular Disease No Family History nothing known of Social History Tobacco Use Smoking status: Former Smoker Types: Cigars Smokeless tobacco: Never Used Tobacco comment: quit 40 + years ago Vaping Use Vaping Use: Never used Substance Use Topics Alcohol use: Yes Comment: rarely, 2-3 glasses red wine per month Drug use: No Allergies As of Date: 01/01/2022 Allergen Noted Reaction CORTISONE 05/09/2009 Other: See Comments ZESTRIL [LISINOPRIL] 01/29/2009 Intolerance Fully Assessed 01/01/2022 Current Outpatient Medications Medication Sig Dispense Refill insulin glargine (LANTUS SOLOSTAR U-100 INSULIN) 100 unit/mL (3 mL) Inject subcutaneously 25 units daily in the AM 15 mL 5 insulin lispro (HUMALOG KWIKPEN INSULIN) 100 unit/mL Inject subcutaneously TID meals per SS up to 15 units daily 15 mL 5 NIFEdipine ER (PROCARDIA XL) 90 mg 24 hr tablet Take 1 tablet by mouth once daily. 10 tablet 0 NIFEdipine ER (PROCARDIA XL) 90 mg 24 hr tablet Take 1 tablet by mouth once daily. 90 tablet 3 losartan (COZAAR) 50 mg tablet Take 1 tablet by mouth once daily. 90 tablet 3 pravastatin (PRAVACHOL) 80 mg tablet Take 1 tablet by mouth once daily. For cholesterol. 90 tablet 3 furosemide (LASIX) 40 mg tablet Take 1 tablet by mouth once daily. 90 tablet 3 meclizine (ANTIVERT) 25 mg tab Take 1 tablet by mouth three times daily as needed. 30 tablet 1 gabapentin (NEURONTIN) 300 mg capsule Take 1 capsule by mouth three times daily for 180 days. 270 capsule 1 empagliflozin (JARDIANCE) 10 mg tablet Take 1 tablet by mouth daily with breakfast. 90 Each 3 promethazine (PHENERGAN) 25 mg tablet Take 1 tablet by mouth every 6 hours as needed. 30 tablet 2 mupirocin (BACTROBAN) 2 % ointment Apply 1 application to affected area three times daily. 30 g 0 latanoprost (XALATAN) 0.005 % ophthalmic solution INSTILL 1 DROP IN BOTH EYES DAILY AT BEDTIME 7.5 mL 2 Lancets lancets Test blood sugar(s) 3 times daily. Dx: Type 2 DM - Uncontrolled E11.65 Insulin: [id number] Each 5 blood sugar diagnostic (BLOOD GLUCOSE TEST) test strip Test blood sugar(s) 3 times daily. Dx: Type 2 DM - Uncontrolled E11.65 Insulin: Yes 100 Strip 11 dorzolamide-timolol (COSOPT) 22.3-6.8 mg/mL ophthalmic solution Use 1 Drop in both eyes twice daily. Use at 8 AM and 4 PM 10 mL 2 Insulin [place], Disposable, (1ST TIER UNIFINE PENTIPS) 31 gauge x 3/16 Use as directed 4 times a day. Dx: E11.65 400 Each 3 flash glucose sensor (FREESTYLE DIANNE 14 DAY SENSOR) kit 1 Each every 2 weeks. Diagnoses: ICD10: E11.22, N18.32, Z79.4; E11.42, Z79.4. Sig: Check glucose 4 or more times per day. Patient on multiple insulin doses. 6 Each 3 flash glucose scanning reader (FREESTYLE DIANNE 14 DAY READER) Diagnoses: ICD10: E11.22, N18.32, Z79.4; E11.42, Z79.4. Sig: Check glucose 4 or more times per day. Patient on multiple insulin doses. 1 Each 0 cholecalciferol (VITAMIN D) 1,000 unit tab tablet Take 1 tablet by mouth once daily. 30 tablet 3 cyanocobalamin (VITAMIN B-12) 1,000 mcg tab Take 1 tablet by mouth once daily. gabapentin (NEURONTIN) 300 mg capsule Take 1 capsule by mouth three times daily for 10 days. 30 capsule 0 aspirin(ECOTRIN LOW STRENGTH 81 MG TAB) Take one(1) tablet daily. (Patient not taking: Take one(1) tablet daily.) 0 No current facility-administered medications for this visit. REVIEW OF SYSTEMS Review of Systems Respiratory: Negative for difficulty breathing. Cardiovascular: Negative for chest pain. Gastrointestinal: Negative for nausea, vomiting, diarrhea and constipation. PHYSICAL EXAMINATION BP 140/80 Pulse 76 Wt 90.7 kg (200 lb) SpO2 100% BMI 27.89 kg/m2 Physical Exam Constitutional: Appearance: Normal appearance. Cardiovascular: Rate and Rhythm: Normal rate and regular rhythm. Pulmonary: Effort: Pulmonary effort is normal. Breath sounds: Normal breath sounds. Skin: General: Skin is warm and dry. Neurological: Mental Status: He is alert and oriented to person, place, and time. Psychiatric: Mood and Affect: Mood normal. Behavior: Behavior normal. DATA Creatinine Date Value Ref Range Status 09/22/2021 2.15 (H) 0.73 - 1.22 mg/dL Final Hemoglobin A1C (%) Date Value 09/03/2020 10.7 Hemoglobin A1C (POCT) (%) Date Value 01/01/2022 5.7 ) No components found for: URINEALBUMIN Cholesterol, Total (mg/dL) Date Value 09/22/2021 159 09/03/2020 175 HDL Cholesterol (mg/dL) Date Value 09/22/2021 52 09/03/2020 47 LDL Cholesterol (mg/dL) Date Value 09/22/2021 89 09/03/2020 97 Triglyceride (mg/dL) Date Value 09/22/2021 91 09/03/2020 156 IMPRESSION: Mr. West is a 76 year old male here for evaluation of DM Type 2 complicated by hypertension, hyperlipidemia, retinopathy, peripheral neuropathy and CKD RECOMMENDATIONS: (E11.3593, Z79.4) 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, with long-term current use of insulin ([facility]) (primary encounter diagnosis) (E11.42, Z79.4) Type 2 diabetes mellitus with diabetic polyneuropathy, with long-term current use of insulin ([facility] [facility] (E11.22, N18.30, Z79.4) Type 2 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 disease, with long-term current use of insulin, unspecified whether stage 3a or 3b CKD ([facility] Comment: Glycemic control is overall stable per A1C. He is now on SGLT2 per nephrology and having few lower BG readings. Will change humalog to SS only (no base dose) . Reviewed how to use the SS andwhen to check BG Plan: HEMOGLOBIN A1C (POC), insulin glargine (LANTUS SOLOSTAR U-100 INSULIN) 100 unit/mL (3 mL), insulin lispro (HUMALOG KWIKPEN INSULIN) 100 unit/mL lantus 25 units daily. Continue jardiance per nephrology. Change humalog to a sliding scale at meals: If Blood Glucose (mg/dL) is < 150 Give 0 units 151-200 Give 2 unit 201-250 Give 3 units 251-300 Give 4 units >301 Give 5 units Notify me if sugars are consistently over 150 or under 70. Follow up in 6 months (E11.649) Hypoglycemia due to type 2 diabetes mellitus ([facility] Comment/Plan: continue dianne; insulin adjusted. (I10) Hypertension goal BP (blood pressure) < 140/90 Comment: BP improved with repeat Plan: Managed per PCP/nephrology (E78.5) Hyperlipidemia, unspecified hyperlipidemia type Comment: taking pravastatin Plan:managed per PCP I spent a total of 25minutes on the date of the service which included preparing to see the patient, [id number] patient care, completing clinical documentation, obtaining and/or reviewing separately obtained history, performing a medically appropriate examination, counseling and educating the patient/family/caregiver, ordering medications, tests, or procedures and communicating results to the patient/family/caregiver. Chanda Phillips, CRISS, SPECIALTY COOK, BILLING AND INSURANCE COORDINATOR-C, CDE Endocrinology [facility]/[address] [place], [place] [address] Fax: documented in [facility]The [facility] Evaluation note* Diagnosis Type 2 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 disease, with long-term current use of insulin, unspecified whether stage 3a or 3b CKD (HCC) Type 2 diabetes mellitus with diabetic polyneuropathy, with long-term current use of insulin (HCC) Hypertension goal BP (blood pressure) < 140/90 Unspecified essential hypertension Hyperlipidemia, unspecified hyperlipidemia type Hypoglycemia due to type 2 diabetes mellitus (HCC) documented in this encounter [facility]06[facility] History of Present illness Narrative* America Mcginnis APRN.SHRIMP CLEANER - 12/23/2021 8:20 AM EDT CC: Patient presents with: 4 month follow up HPI Esvin West Sr. is a 76 year old male who presents today for above. Neuropathy in BLE worsening, tolerable during the day but a lot worse at night. PVR's ordered by podiatry were normal. He is taking Gabapentin 300 mg TID, wondering about increasing dose. He had beenexperiencing vertigo for months. Started PT for BPPV a few months ago and doing home maneuvers which has resulted in resolution of vertigo. His java developer with security clearance started him on Jardiance in the hopes of stabilizing kidney function. Patient reports some nausea when taking but otherwise seems to be tolerating. He has has an appointment next week with endocrinology for diabetes. Blood sugars are very well controlled. Taking all medications as prescribed, denies side effects. Does not check BP at home. REVIEW OF SYSTEMS General: no fevers, no chills, no night sweats, no change in energy and no significant changes in weight Respiratory: no cough, no wheezing, no shortness of breath Cardiovascular: no chest pain, no chest pressure, no palpitations and no swelling PAST MEDICAL HISTORY Diagnosis Date Anemia in stage 3 chronic kidney disease (HCC) Background diabetic retinopathy(362.01) 09/18/2008 [facility]. Cataract of left eye Chronic kidney disease, unspecified CKD (chronic kidney disease) stage 3, GFR 30-59 ml/min ([facility]) 05/26/2017 Coloboma of iris OD Depressive disorder, not elsewhere classified Erectile dysfunction associated with type 2 diabetes mellitus ([facility]) 07/09/2008 Esophageal reflux Essential hypertension, benign Hyperplasia of prostate Macular edema dme od Other and unspecified hyperlipidemia Other specified anemias Other specified gastritis without mention of hemorrhage 09/18/2008 Personal history of colonic polyps 08/04/2016 Primary open angle glaucoma OU Proliferative diabetic retinopathy(362.02) Pseudophakia of right eye Shoulder pain 09/25/2008 Right. Tubular adenoma of colon 08/10/2016 Type II or unspecified type diabetes mellitus with ophthalmic manifestations, uncontrolled(250.52) 09/18/2008 iddm Unspecified asthma(493.90) Vitreous hemorrhage of left eye ([facility]) PAST SURGICAL HISTORY Procedure Laterality Date AVASTIN (BEVACIZUMAB) 1.25MG INTRAVITREAL INJECTION OD (RIGHT EYE) Right 04/19/2018 LAST COLONOSCOPY 11/04/2021 COLONOSCOPY FLX DX W/COLLJ SPEC WHEN PFRMD 05/27/2003 Colonoscopy COLONOSCOPY GEN ANES 08/04/2016 COLONOSCOPY W/BIOPSY SINGLE/MULTIPLE 07/25/2013 Repeat due 2017 COLSC FLX W/RMVL OF TUMOR POLYP LESION SNARE TQ 08/04/2016 Repeat 07/2019 ESOPHAGOGASTRODUODENOSCOPY TRANSORAL DIAGNOSTIC 05/27/2003 EGD EYE SURGERY HX Right 05/02/2018 Pars plana vitrectomy, membrane peel, endolaser, and air fluid exchange right eye. LAPAROSCOPY SURG CHOLECYSTECTOMY 03/2003 Cholecystectomy, lap OPEN REPAIR OF ROTATOR CUFF ACUTE 04/24/2009 Rotator cuff repair, Right PANRETINAL PHOTOCOAGULATION (PRP) OD (RIGHT EYE) Right 08/29/2014 LAST ; PRP (Panretinal Photocoagulation) OD PANRETINAL PHOTOCOAGULATION (PRP) OS (LEFT EYE) Left 07/12/2013 #2 ; PRP (Panretinal Photocoagulation) OS PROSTATECTOMY SUPRAPUBIC SUBTOTAL 06/23/2011 for BPH VITRECTOMY MECHANICAL PARS PLANA Left 11/16/2016 PPV/MP/EL/AFX OS XCAPSL CTRC RMVL INSJ IO LENS PROSTH W/O ECP 02/07/2007 Cataract Removal right XCAPSL CTRC RMVL INSJ IO LENS PROSTH W/O ECP Left 11/16/2016 Cataract Extraction with PC IOL OS ALLERGIES Cortisone and Zestril [Lisinopril] MEDICATIONS NIFEdipine ER (PROCARDIA XL) 90 mg 24 hr tablet Take 1 tablet by mouth once daily. NIFEdipine ER (PROCARDIA XL) 90 mg 24 hr tablet Take 1 tablet by mouth once daily. insulin lispro (HUMALOG KWIKPEN INSULIN) 100 unit/mL Inject 4 units breakfast, 6 units lunch, 6 units dinner. Take 1/2 the dose if the sugar is less then 120 losartan (COZAAR) 50 mg tablet Take 1 tablet by mouth once daily. pravastatin (PRAVACHOL) 80 mg tablet Take 1 tablet by mouth once daily. For cholesterol. furosemide (LASIX) 40 mg tablet Take 1 tablet by mouth once daily. meclizine (ANTIVERT) 25 mg tab Take 1 tablet by mouth three times daily as needed. insulin glargine (LANTUS SOLOSTAR U-100 INSULIN) 100 unit/mL (3 mL) Inject subcutaneously 25 units daily in the evening. gabapentin (NEURONTIN) 300 mg capsule Take 1 capsule by mouth three times daily for 180 days. empagliflozin (JARDIANCE) 10 mg tablet Take 1 tablet by mouth daily with breakfast. gabapentin (NEURONTIN) 300 mg capsule Take 1 capsule by mouth three times daily for 10 days. promethazine (PHENERGAN) 25 mg tablet Take 1 tablet by mouth every 6 hours as needed. mupirocin (BACTROBAN) 2 % ointment Apply 1 application to affected area three times daily. latanoprost (XALATAN) 0.005 % ophthalmic solution INSTILL 1 DROP IN BOTH EYES DAILY AT BEDTIME Lancets lancets Test blood sugar(s) 3 times daily. Dx: Type 2 DM - Uncontrolled E11.65 Insulin: Yes blood sugar diagnostic (BLOOD GLUCOSE TEST) test strip Test blood sugar(s) 3 times daily. Dx: Type 2 DM - Uncontrolled E11.65 Insulin: Yes dorzolamide-timolol (COSOPT) 22.3-6.8 mg/mL ophthalmic solution Use 1 Drop in both eyes twice daily. Use at 8 AM and 4 PM Insulin [place], Disposable, (1ST TIER UNIFINE PENTIPS) 31 gauge x 3/16 Use as directed 4 times a day. Dx: E11.65 flash glucose sensor (FREESTYLE DIANNE 14 DAY SENSOR) kit 1 Each every 2 weeks. Diagnoses: ICD10: E11.22, N18.32, Z79.4; E11.42, Z79.4. Sig: Check glucose 4 or more times per day. Patient on multiple insulin doses. flash glucose scanning reader (FREESTYLE DIANNE 14 DAY READER) Diagnoses: ICD10: E11.22, N18.32, Z79.4; E11.42, Z79.4. Sig: Check glucose 4 or more times per day. Patient on multiple insulin doses. cholecalciferol (VITAMIN D) 1,000 unit tab tablet Take 1 tablet by mouth once daily. cyanocobalamin (VITAMIN B-12) 1,000 mcg tab Take 1 tablet by mouth once daily. aspirin(ECOTRIN LOW STRENGTH 81 MG TAB) Take one(1) tablet daily. FAMILY HISTORY Problem Relation Age of Onset Breast Cancer Mother at age 55 COPD Father Black lung Breast Cancer Sister at age 54 Diabetes Brother No Ocular Disease No Family History nothing known of Social History Tobacco Use Smoking status: Former Smoker Types: Cigars Smokeless tobacco: Never Used Tobacco comment: quit 40 + years ago Vaping Use Vaping Use: Never used Substance Use Topics Alcohol use: Yes Comment: rarely, 2-3 glasses red wine per month Drug use: No PHYSICAL EXAM BP 128/66 Pulse 74 Resp 12 Wt 88.9 kg (196 lb) BMI 27.34 kg/m General Appearance: well appearing, in no acute distress, alert Lungs: Lungs clear to auscultation. No wheezing, rhonchi, rales. Heart: RRR without murmur, gallop, or rubs. No ectopy Health maintenance reviewed with patient: SHINGRIX VACCINE(2 of 3) due on 06/10/2014 ADVANCE DIRECTIVE DISCUSSION Never done DEPRESSION SCREENING due on 09/05/2021 HEMOGLOBIN/HEMATOCRIT due on 10/27/2021 HBA1C due on 12/15/2021 COVID-19 VACCINE(3 - Booster) due on 12/23/2022 INFLUENZA(Season Ended) due on 02/25/2022 URINE ALBUMIN:CREATININE RATIO due on 09/22/2022 LDL CHOLESTEROL due on 09/22/2022 SERUM CREATININE due on 09/22/2022 DILATED RETINAL EXAM due on 10/21/2022 BP CONTROLLED (<130/80) due on 11/18/2022 DIABETIC FOOT EXAM due on 12/15/2022 ANNUAL PCP TEAM CHRONIC DISEASE VISIT due on 12/23/2022 COLORECTAL CANCER SCREENING due on 11/04/2026 DTAP,TDAP,TD(2 - Td or Tdap) due on 01/13/2028 ABDOMINAL AORTIC ANEURYSM SCREENING Completed HEPATITIS C SCREENING Completed PNEUMOCOCCAL: 65+ Completed DATA REVIEWED: Most recent labs ASSESSMENT/PLAN: 1. Type 2 diabetes mellitus with diabetic polyneuropathy, with long-term current use of insulin (HCC) - ICD9: 250.60, 357.2, V58.67, ICD10: E11.42, Z79.4 (primary diagnosis) Blood sugars well controlled, continue current medications. Follow-up with endocrinology with labs next week. Neuropathy symptoms are not well controlled, worse at night and tolerable during the day. He is on the maximum dose of Gabapentin with renal impairment. Discussed other treatment options including Cymbalta and Elavil. Patient declined at this time. 2. Benign paroxysmal positional vertigo, unspecified laterality - ICD9: 386.11, ICD10: H81.10 Resolved 3. Stage 3b chronic kidney disease (HCC) - ICD9: 585.3, ICD10: N18.32 Stable. Jardiance as prescribed by nephrology 4. Essential hypertension - ICD9: 401.9, ICD10: I10 - good control - Continue current medication(s) - Recommended regular aerobic exercise. - Recommend home blood pressure monitoring, to bring results in on next visit - Goal of BP <130/80 Prescription instructions reviewed with patient as applicable. Potential red flag symptoms discussed with the patient. Reviewed appropriate action plan to take if red flag symptoms occur. Patient agreeable to treatment plan. America Mcginnis APRN.CNP documented in [facility] Miscellaneous Notes* Telephone Encounter - Yessica Méndez RN - 12/18/2021 2:12 PM EDT Attempted to contact patient in regards to the below but he did not answer. Left pt detailed VM (okper chart) with Dr. Eric's message below. Advised patient to contact office with any further questions. * Telephone Encounter - Marsha Eric - 12/18/2021 2:02 PM EDT I don't foresee any vascular disease in lower extremity. If he has an appointment to see vascular surgery, it is not from me. I would have patient discuss with referring provider Marsha Eric DPM * Telephone Encounter - Ledy Campbell LPN - 12/18/2021 1:44 PM EDT Patient notified of results and provider's instructions. Patient verbalizes understanding. Patient is asking if he still needs to see vascular surgery. Ledy Campbell LPN * Telephone Encounter - Ledy Campbell LPN - 12/18/2021 1:18 PM EDT ----- Message from Marsha Eric sent at 12/18/2021 12:44 PM EDT ----- Please call patient to inform him that his circulation in his foot appears normal Marsha Eric DPM documented in [facility]The [facility]06[facility] Instructions* Patient Instructions* Marsha Eric - 12/15/2021 9:04 AM EDT Diabetes Foot Care Instructions When you have diabetes, proper foot care is very important. Poor foot care may lead to amputation of a foot or leg. As a person with diabetes, you are more vulnerable to foot problems, because diabetes can damage your nerves and reduce blood flow to your feet. Here are some diabetes foot care tips to follow: Wash and Dry Your Feet Daily Use mild soaps Use warm water Pat your skin dry; do not rub. Thoroughly dry your feet. After washing, use lotion on your feet to prevent cracking. Do not put lotion between your toes. Examine Your Feet Each Day Check the tops and bottoms of your feet. Have someone else look at your feet if you cannot see them. Check for dry, cracked skin. Look for blisters, cuts, scratches, or other sores. Check for redness, increased warmth, or tenderness when touching any area of your feet. Check for ingrown toenails, corns, and calluses. If you get a blister or sore from your shoes, do not pop it. Apply a bandage and wear a differentpair of shoes. Take Care of Your Toenails Cut toenails after bathing, when they are soft. Cut toenails straight across and smooth with a nail file. Avoid cutting into the corners of toes. Do not cut cuticles. If you have neuropathy (or decreased sensation in your feet) a office coordinator receptionist should always cut your toenails. Be Careful When Exercising Walk and exercise in comfortable shoes. Do not exercise when you have open sores on your feet. Protect Your Feet With Shoes and Socks Never go barefoot. Always protect your feet by wearing shoes or hard-soled slippers or footwear. Avoid shoes with high heels and pointed toes. Avoid shoes that expose your toes or heels (such as open-toed shoes or sandals). These types of shoes increase your risk for injury and potential infections. Try on new footwear with the type of socks you usually wear. Do not wear new shoes for more than an hour at a time. Change your socks daily. Look and feel inside your shoes before putting them on to make sure there are no foreign objects orrough areas. Avoid tight socks. Wear natural-fiber socks (cotton, wool, or a cotton-wool blend). Wear special shoes if your health care provider recommends them. Wear shoes/boots that will protect your feet from various weather conditions (cold, moisture, etc.). Make sure your shoes fit properly. If you have neuropathy (nerve damage), you may not notice that your shoes are too tight. Perform the footwear test described below. Footwear Test Use this simple test to see if your shoes fit correctly: Stand on a piece of paper. (Make sure you are standing and not sitting, because your foot changes shape when you stand.) Trace the outline of your foot. Trace the outline of your shoe. Compare the tracings: Is the shoe too narrow? Is your foot crammed into the shoe? The shoe should be at least 1/2 inch longer than your longest toe and as wide as your foot. Proper Shoe Choices The following types of shoes are best for people with diabetes Closed toes and heels Leather uppers without a seam inside At least 1/2 inch extra space at the end of your longest toe Inside of shoe should be soft with no rough areas Outer sole should be made of stiff material Shoes should be at least as wide as your feet Tips for Foot Care in Diabetes Don't wait to treat a minor foot problem if you have diabetes. Follow your health care provider's guidelines and first aid guidelines. Report foot injuries and infections to your health care provider immediately. Check water temperature with your elbow, not your foot. Do not use a heating pad on your feet. Do not cross your legs. Do not self-treat your corns, calluses, or other foot problems. Go to your health care provider or office coordinator receptionist to treat these conditions. documented in this encounterThe [facility]06[facility] History of Present illness Narrative* Marsha Eric - 12/15/2021 8:57 AM EDT Subjective: This 76 year old male presents to clinic for diabetic foot check. Patient has the following complaints: painful neuropathy. He is on neuontin but not sure if this is helping. He did receive pain cream but that does not help. Patient admits to being diabetic for multiple years nowPatient +B/T/N in feet at this time. Patientno pain in legs when walking. No other pedal complaints at this time. Patient had tried pain cream but that did not help No change in medications or medical history since last visit. PAIN EVALUATION No data found in the last 1 encounters. Hemoglobin A1C (%) Date Value 09/03/2020 10.7 12/19/2019 7.0 10/09/2019 8.9 04/16/2019 8.5 11/13/2018 8.4 Hemoglobin A1C (POCT) (%) Date Value 06/16/2021 5.8 12/30/2020 5.9 PCP: Jesse Glover MD PAST MEDICAL HISTORY Diagnosis Date Anemia in stage 3 chronic kidney disease (HCC) Background diabetic retinopathy(362.01) 09/18/2008 [facility]. Cataract of left eye Chronic kidney disease, unspecified CKD (chronic kidney disease) stage 3, GFR 30-59 ml/min ([facility]) 05/26/2017 Coloboma of iris OD Depressive disorder, not elsewhere classified Erectile dysfunction associated with type 2 diabetes mellitus ([facility]) 07/09/2008 Esophageal reflux Essential hypertension, benign Hyperplasia of prostate Macular edema dme od Other and unspecified hyperlipidemia Other specified anemias Other specified gastritis without mention of hemorrhage 09/18/2008 Personal history of colonic polyps 08/04/2016 Primary open angle glaucoma OU Proliferative diabetic retinopathy(362.02) Pseudophakia of right eye Shoulder pain 09/25/2008 Right. Tubular adenoma of colon 08/10/2016 Type II or unspecified type diabetes mellitus with ophthalmic manifestations, uncontrolled(250.52) 09/18/2008 iddm Unspecified asthma(493.90) Vitreous hemorrhage of left eye ([facility]) Current Outpatient Medications Medication Sig NIFEdipine ER (PROCARDIA XL) 90 mg 24 hr tablet Take 1 tablet by mouth once daily. NIFEdipine ER (PROCARDIA XL) 90 mg 24 hr tablet Take 1 tablet by mouth once daily. insulin lispro (HUMALOG KWIKPEN INSULIN) 100 unit/mL Inject 4 units breakfast, 6 units lunch, 6 units dinner. Take 1/2 the dose if the sugar is less then 120 losartan (COZAAR) 50 mg tablet Take 1 tablet by mouth once daily. pravastatin (PRAVACHOL) 80 mg tablet Take 1 tablet by mouth once daily. For cholesterol. furosemide (LASIX) 40 mg tablet Take 1 tablet by mouth once daily. meclizine (ANTIVERT) 25 mg tab Take 1 tablet by mouth three times daily as needed. insulin glargine (LANTUS SOLOSTAR U-100 INSULIN) 100 unit/mL (3 mL) Inject subcutaneously 25 units daily in the evening. gabapentin (NEURONTIN) 300 mg capsule Take 1 capsule by mouth three times daily for 180 days. empagliflozin (JARDIANCE) 10 mg tablet Take 1 tablet by mouth daily with breakfast. promethazine (PHENERGAN) 25 mg tablet Take 1 tablet by mouth every 6 hours as needed. mupirocin (BACTROBAN) 2 % ointment Apply 1 application to affected area three times daily. latanoprost (XALATAN) 0.005 % ophthalmic solution INSTILL 1 DROP IN BOTH EYES DAILY AT BEDTIME Lancets lancets Test blood sugar(s) 3 times daily. Dx: Type 2 DM - Uncontrolled . Insulin: Yes blood sugar diagnostic (BLOOD GLUCOSE TEST) test strip Test blood sugar(s) 3 times daily. Dx: Type 2 DM - Uncontrolled Insulin: Yes dorzolamide-timolol (COSOPT) 22.3-6.8 mg/mL ophthalmic solution Use 1 Drop in both eyes twice daily. Use at 8 AM and 4 PM Insulin [place], Disposable, (1ST TIER UNIFINE PENTIPS) 31 gauge x 3/16 Use as directed 4 times a day. Dx: E11.65 flash glucose sensor (FREESTYLE DIANNE 14 DAY SENSOR) kit 1 Each every 2 weeks. Diagnoses: ICD10: E11.22, N18.32, Z79.4; E11.42, Z79.4. Sig: Check glucose 4 or more times per day. Patient on multiple insulin doses. flash glucose scanning reader (FREESTYLE DIANNE 14 DAY READER) Diagnoses: ICD10: E11.22, N18.32, Z79.4; E11.42, Z79.4. Sig: Check glucose 4 or more times per day. Patient on multiple insulin doses. cholecalciferol (VITAMIN D) 1,000 unit tab tablet Take 1 tablet by mouth once daily. cyanocobalamin (VITAMIN B-12) 1,000 mcg tab Take 1 tablet by mouth once daily. gabapentin (NEURONTIN) 300 mg capsule Take 1 capsule by mouth three times daily for 10 days. aspirin(ECOTRIN LOW STRENGTH 81 MG TAB) Take one(1) tablet daily. No current facility-administered medications for this visit. ALLERGIES Allergen Reactions Cortisone Other: See Comments Shunk real hot, as if someone threw boiling water on him Zestril [Lisinopril] Intolerance ARF, hypokalemia PAST SURGICAL HISTORY Procedure Laterality Date AVASTIN (BEVACIZUMAB) 1.25MG INTRAVITREAL INJECTION OD (RIGHT EYE) Right 04/19/2018 LAST COLONOSCOPY 11/04/2021 COLONOSCOPY FLX DX W/COLLJ SPEC WHEN PFRMD 05/27/2003 Colonoscopy COLONOSCOPY GEN ANES 08/04/2016 COLONOSCOPY W/BIOPSY SINGLE/MULTIPLE 07/25/2013 Repeat due 2017 COLSC FLX W/RMVL OF TUMOR POLYP LESION SNARE TQ 08/04/2016 Repeat 07/2019 ESOPHAGOGASTRODUODENOSCOPY TRANSORAL DIAGNOSTIC 05/27/2003 EGD EYE SURGERY HX Right 05/02/2018 Pars plana vitrectomy, membrane peel, endolaser, and air fluid exchange right eye. LAPAROSCOPY SURG CHOLECYSTECTOMY 03/2003 Cholecystectomy, lap OPEN REPAIR OF ROTATOR CUFF ACUTE 04/24/2009 Rotator cuff repair, Right PANRETINAL PHOTOCOAGULATION (PRP) OD (RIGHT EYE) Right 08/29/2014 LAST ; PRP (Panretinal Photocoagulation) OD PANRETINAL PHOTOCOAGULATION (PRP) OS (LEFT EYE) Left 07/12/2013 #2 ; PRP (Panretinal Photocoagulation) OS PROSTATECTOMY SUPRAPUBIC SUBTOTAL 06/23/2011 for BPH VITRECTOMY MECHANICAL PARS PLANA Left 11/16/2016 PPV/MP/EL/AFX OS XCAPSL CTRC RMVL INSJ IO LENS PROSTH W/O ECP 02/07/2007 Cataract Removal right XCAPSL CTRC RMVL INSJ IO LENS PROSTH W/O ECP Left 11/16/2016 Cataract Extraction with PC IOL OS FAMILY HISTORY Problem Relation Age of Onset Breast Cancer Mother at age 55 COPD Father Black lung Breast Cancer Sister at age 54 Diabetes Brother No Ocular Disease No Family History nothing known of Social History Tobacco Use Smoking status: Former Smoker Types: Cigars Smokeless tobacco: Never Used Tobacco comment: quit 40 + years ago Vaping Use Vaping Use: Never used Substance Use Topics Alcohol use: Yes Comment: rarely, 2-3 glasses red wine per month Drug use: No REVIEW OF SYSTEMS GENERAL: Negative for Malaise, significant weight loss, fever RESPIRATORY: Negative for cough, wheezing and shortness of breath CARDIOVASCULAR: Negative for chest pain, leg swelling and palpitations GI: Negative for abdominal discomfort, blood in stools or black stools and change in bowel habits : Negative for dysuria, frequency and incontinence MUSCULOSKELETAL: Negative for joint pain or swelling, back pain, and muscle pain. SKIN: Negative for lesions, rash, and itching. HEMATOLOGY/LYMPHOLOGY Negative for prolonged bleeding, bruising easily, and swollen nodes. ENDOCRINE: Negative for cold or heat intolerance, polyuria, polydipsia and goiter. NEURO: negative The remainder of the review of systems is noncontributory. Objective: Patient presents to clinic ambulating in [facility] Constitutional: Pt is a well developed 76 year old male who is alert, oriented, cooperative and in no apparent distress. Eyes: Following during examination. No redness or drainage. Respiratory: RR normal and nonlabored. Even breathing. No evidence of distress. Psychology: Patient is engaged during conversation. Normal affect and mood. Does not appear depressed or anxious. Vasc: DP and PT pulses faintly palpable bilateral. CFT is less than 5 seconds bilateral. Skin temperature is warm to cool proximal to distal bilateral. There is no edema or varicosities noted. Hair growth present. Neuro: Protective sensation is intact to the foot and toes when tested with the 5.07 SWM bilateral.Vibratory sensation is decreased at the hallux bilateral. + Significant neurological defecits. Derm: Inspection and palpation performed. Nails 1-5 b/l are painful, discolored- yellow, thick, crumbly, dystrophic and with subungal debris. There is ingrowing nail without infection to right hallux medial nail border. Skin is of normal turgor and texture. Hyperkeratosis noted to right hallux. NO ulcerations, scars, verruca or other lesions noted. Ortho: Ankle joint DF is full with the knee extended and full with knee flexed. No pain or crepitusnoted. STJ, MTJ ROM are full and free of pain or crepitus. Muscle strength is 5/5 for dorsiflexors,plantarflexors, inverters, everters. Digital deformities include flatfoot. Assessment: (E11.49) Other diabetic neurological complication associated with type 2 diabetes mellitus (HCC) (primary encounter diagnosis) (M21.41, M21.42) Pes planus of both feet (L84) Callus of foot (B35.1) Onychomycosis (M79.674) Pain in toe of right foot (M79.675) Pain in toe of left foot (R09.89) Diminished pulses in lower extremity Plan: 1. Patient was seen and evaluated. 2. Patient was instructed on the continued importance of diabetic foot care along with proper diet and keeping their blood sugar under control to prevent complications. Instructions given both oral and written. 3. Discussed flatfoot. Continue with inserts. He is going to call [facility] to have his shoes adjusted 4. Callus reduced to right hallux with dremmel 5. Toenails 1-5 b/l debrided in length and thickness. If he continues to have pain in right great toe, consider matrixectomy of medial nail border. Will check pvr prior. 6. Continue with neurontin for neuropathy. He has an appointment with Cezar Mcginnis. He is going to seeif increasing dose could be of help. Marsha Eric DPM * Linn Du RN - 12/15/2021 8:24 AM EDT Patient presents with: Right Foot - Established Patient, Follow Up, Nail Check Left Foot - Established Patient, Follow Up, Nail Check documented in this encounterThe [facility]06-03-[facility]22 Miscellaneous Notes* Telephone Encounter - Penny Durant - 11/27/2021 3:13 PM EDT Pt notified and will keep appt as scheduled for 12/15. Penny Durant * Telephone Encounter - Marsha Eric - 11/27/2021 12:27 PM EDT There are other options indeed. Medication such as neurontin or lyrica that he can take orally are options. I would recommend he make follow-up to discuss Marsha Eric DPM * Telephone Encounter - Hillary Arzate Ma - 11/27/2021 9:47 AM EDT Patient called in to give update for feet. Last seen in July and prescribed a pain cream for his feet. He reports cream doesn't really help. He continues to have numbness and tightness that is worse at night when trying to relax and go tosleep. Pain isn't as bad during the day when he is active. He asks if there is something else he can try? documented in this encounterThe [facility] Hospital05-25-2022 Instructions* Patient Instructions* Tati Anderson PA-C - 11/18/2021 10:12 AM EDT The following instructions are important for you related to your office visit today with the [facility]. INSTRUCTIONS FOLLOWING A POLYP FOUND AT COLONOSCOPY You were found to have adenomatous colon polyps. I recommend you undergo repeat endoscopy in 5 years. If you note bleeding, change in bowel habits, or other suspicious colon related symptoms before that time, those symptoms should be evaluated as necessary. If you have any difficulties or concerns, you should contact our office immediately. If you note any additional difficulties, questions, or concerns, you should contact our office immediately @ [phone] and ask to be transferred to the General Surgery department. The following instructions are important for you related to your office visit today with the [facility]. INSTRUCTIONS FOR DIVERTICULA I recommend that you continue on a high-fiber diet. Avoidance of seeds is not necessary in general. Recent studies have demonstrated that seeds do not increase you risk of developing diverticulitis. If specific foods tend to cause discomfort, those should be avoided. Signs of diverticulitis (inflammation of diverticulosis) include - abdominal distention, fever, abdominal pain typically in the left lower quadrant, and changes of bowel habits. If these symptoms appear, you are instructed to contact our office immediately. If you note any additional difficulties or concerns, you should contact our office immediately. If you note any additional difficulties, questions, or concerns, you should contact our office immediately @ [phone] and ask to be transferred to the General Surgery department. documented in this encounterThe [facility]05-25-2022 History of Present illness Narrative* Tati Anderson PA-C - 11/18/2021 10:06 AM EDT FOLLOW UP VISIT - ENDOSCOPY NAME: Esvin West . CLINIC NO.: [id number] DATE OF SERVICE: 11/18/2021 : 1945 REFERRING PHYSICIAN: Jesse Glover MD Esvin is a patient I am following for personal history of colon polyps and need for surveillance colonoscopy. Dr. Xiong performed lower endoscopy on 11/04/21. The patient was found to have two small descending colon polyps which were removed, and was also noted to have internal hemorrhoids and diverticulosis. Pathology demonstrated: FINAL DIAGNOSIS Descending colon, polypectomy: - Fragments of tubular adenoma. The patient notes no complaints since the procedure. VITALS: Pulse 68, temperature 36.3 C (97.3 F), height 180.3 cm (5' 11 ), weight 88.9 kg (196 lb), SpO2 99 %. General: patient is alert, cooperative, pleasant and in no acute distress On examination, the abdomen is benign. Assessment IMPRESSION: s/p colonoscopy with polypectomy-tubular adenomas PLAN: The operative findings and pathology report were reviewed with the patient, and the patient has hadthe opportunity to ask questions and have questions answered. If the patient notes any problems or changes in bowel function, the patient should contact me immediately. Otherwise I recommend follow up endoscopy in 5 years. HM updated and recall letter generated. Recommend daily fiber supplement and plenty of fluids Patient verbalized understanding of all above and agreed with the plan Diagnoses: (Z86.010) History of colonic polyps (primary encounter diagnosis) (K57.90) Diverticulosis (D12.6) Tubular adenoma of colon I spent a total of 23 minutes on the date of the service which included preparing to see the patient, [id number] patient care, completing clinical documentation, obtaining and/or reviewing separately obtained history, counseling and educating the patient/family/caregiver, independently interpretin g results (not separately reported) and communicating results to the patient/family/caregiver. Tati Anderson PA-C documented in this encounterThe [facility]05-16-2022 Miscellaneous Notes* Telephone Encounter - Cristiane Caruso - 11/09/2021 10:41 AM EDT Called and confirmed appointment date and time. Cristiane Caruso PSS * Telephone Encounter - Varsha Arana Pss - 11/06/2021 9:58 AM EDT Left message in regards to this and I have already scheduled the patient for 11/18 with Tom Anderson please advise patient of this when he returns call. * Telephone Encounter - Komal Alvarez RN - 11/06/2021 9:48 AM EDT Esvin had an EGD with Dr. Ronal Xiong on 11/04/2021. Biopsies were taken, so the patient will need a follow up visit. This can be a phone call or virtual visit with DONNA Del Cid. Thank you. Komal Alvarez RN documented in this encounterThe [facility]05-11-2022 Miscellaneous Notes* Telephone Encounter - Tati Hardy RN - 11/04/2021 9:42 AM EDT Pt called and is notified of providers message and instructions. Pt voices understanding. He said to let provider know that Dr Xiong said his Colonoscopy went fine today. Tati Hardy RN * Telephone Encounter - America Mcginnis APRN.KAMILA - 11/04/2021 8:51 AM EDT Please let the patient know I discussed everything with Dr. Glover. Since his dizziness has resolved and the testing PT did was negative for vertebral artery cause no further testing is needed at this time. Recommend discussing further at his appointment in November America Mcginnis APRN.CNP * Telephone Encounter - America Mcginnis APRN.CNP - 10/13/2021 10:06 AM EDT The physical therapist did contact me about this. I will discuss further with Dr. Glover for hisrecommendations when he returns to work on Tuesday America Mcginnis APRN.CNP * Telephone Encounter - Bala Penny Ma - 10/13/2021 9:11 AM EDT Patient rescheduled to end of November. Patient is asking for provider to review recent visit from PT in [place]. He states that there was mention of the visit being sent to provider to review for more imaging? 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 Patient asking why does he need to come back for appt 10/16/2021? Explained that the appt end of August was ER follow up, appt on 10/16 is 4 month follow up appt. Patient said he he enough appts to go to this week, seeing his kidney Dr Tuesday. If hehas to come for the appt call him back please. Did not cancel the appt for Monday 10/16. Please advise documented in this encounterCleveland [id number] Nurse Note* Melinda Dent RN - 11/04/2021 8:26 AM EDT Nursing Progress Note Patient Name: Esvin West Sr. Patient Location: Room/bed info not found at bedside talking with pt. VSS This note was completed by: Melinda Dent 0835 report to Anup GRIFFITH. Pt awake, alert, talking and asking questions. VSS documented in this encounterThe [facility]05-11-2022 History and physical note * Ronal Xiong MD - 11/04/2021 7:30 AM EDT CC: Patient presents with: ED Follow-up: [facility] - dehydration , increased heart rate , vertigo HPI Esvin West Sr. is a 76 year old male who presents today for above. follow-up. Facility: [facility] Date of visit: 09/17/21 Reason for visit: palpitations, heart racing Hospital course: EKG, labs including troponin normal except potassium was elevated. Treated with IVfluids, symptoms resolved Current symptoms: patient states heart started racing when he became extremely dizzy. Vertigo described as room spinning, better when he laid down with eyes closed. Triggered by position changes, forexample one episode started while he was tearing down wall paper. He has a history of vertigo, imaging including MRI and carotid ultrasound were normal. He was also referred previously to ENT for tinnitus and vertigo. He takes Antivert as needed which helps a little. No new or worsening vertigo symptoms. No further episodes of palpitations, tachycardia, vertigo or nausea since then. REVIEW OF SYSTEMS See HPI PAST MEDICAL HISTORY PAST MEDICAL HISTORY Diagnosis Date Anemia in stage 3 chronic kidney disease (HCC) Background diabetic retinopathy(362.01) 09/18/2008 [facility] eye. Cataract of left eye Chronic kidney disease, unspecified CKD (chronic kidney disease) stage 3, GFR 30-59 ml/min ([facility]) 05/26/2017 Coloboma of iris OD Depressive disorder, not elsewhere classified Erectile dysfunction associated with type 2 diabetes mellitus ([facility]) 07/09/2008 Esophageal reflux Essential hypertension, benign Hyperplasia of prostate Macular edema dme od Other and unspecified hyperlipidemia Other specified anemias Other specified gastritis without mention of hemorrhage 09/18/2008 Personal history of colonic polyps 08/04/2016 Primary open angle glaucoma OU Proliferative diabetic retinopathy(362.02) Pseudophakia of right eye Shoulder pain 09/25/2008 Right. Tubular adenoma of colon 08/10/2016 Type II or unspecified type diabetes mellitus with ophthalmic manifestations, uncontrolled(250.52) 09/18/2008 iddm Unspecified asthma(493.90) Vitreous hemorrhage of left eye ([facility]) PAST SURGICAL HISTORY PAST SURGICAL HISTORY Procedure Laterality Date AVASTIN (BEVACIZUMAB) 1.25MG INTRAVITREAL INJECTION OD (RIGHT EYE) Right 04/19/2018 LAST COLONOSCOPY FLX DX W/COLLJ SPEC WHEN PFRMD 05/27/2003 Colonoscopy COLONOSCOPY GEN ANES 08/04/2016 COLONOSCOPY W/BIOPSY SINGLE/MULTIPLE 07/25/2013 Repeat due 2016 COLSC FLX W/RMVL OF TUMOR POLYP LESION SNARE TQ 08/04/2016 Repeat 07/2019 ESOPHAGOGASTRODUODENOSCOPY TRANSORAL DIAGNOSTIC 05/27/2003 EGD EYE SURGERY HX Right 05/02/2018 Pars plana vitrectomy, membrane peel, endolaser, and air fluid exchange right eye. LAPAROSCOPY SURG CHOLECYSTECTOMY 03/2003 Cholecystectomy, lap OPEN REPAIR OF ROTATOR CUFF ACUTE 04/24/2009 Rotator cuff repair, Right PANRETINAL PHOTOCOAGULATION (PRP) OD (RIGHT EYE) Right 08/29/2014 LAST ; PRP (Panretinal Photocoagulation) OD PANRETINAL PHOTOCOAGULATION (PRP) OS (LEFT EYE) Left 07/12/2013 #2 ; PRP (Panretinal Photocoagulation) OS PROSTATECTOMY SUPRAPUBIC SUBTOTAL 06/23/2011 for BPH VITRECTOMY MECHANICAL PARS PLANA Left 11/16/2016 PPV/MP/EL/AFX OS XCAPSL CTRC RMVL INSJ IO LENS PROSTH W/O ECP 02/07/2007 Cataract Removal right XCAPSL CTRC RMVL INSJ IO LENS PROSTH W/O ECP Left 11/16/2016 Cataract Extraction with PC IOL OS ALLERGIES Cortisone and Zestril [Lisinopril] MEDICATIONS CURRENT MEDICATIONS promethazine (PHENERGAN) 25 mg tablet Take 1 tablet by mouth every 6 hours as needed. furosemide (LASIX) 40 mg tablet Take 1 tablet by mouth once daily. meclizine (ANTIVERT) 25 mg tab Take 1 tablet by mouth three times daily as needed. mupirocin (BACTROBAN) 2 % ointment Apply 1 application to affected area three times daily. latanoprost (XALATAN) 0.005 % ophthalmic solution INSTILL 1 DROP IN BOTH EYES DAILY AT BEDTIME Lancets lancets Test blood sugar(s) 3 times daily. Dx: Type 2 DM - Uncontrolled E11.65 Insulin: Yes blood sugar diagnostic (BLOOD GLUCOSE TEST) test strip Test blood sugar(s) 3 times daily. Dx: Type 2 DM - Uncontrolled E11.65 Insulin: Yes dorzolamide-timolol (COSOPT) 22.3-6.8 mg/mL ophthalmic solution Use 1 Drop in both eyes twice daily. Use at 8 AM and 4 PM losartan (COZAAR) 50 mg tablet Take 1 tablet by mouth once daily. insulin lispro (HUMALOG KWIKPEN INSULIN) 100 unit/mL Inject 4 units breakfast, 6 units lunch, 6 units dinner. Take 1/2 the dose if the sugar is less then 120 insulin glargine (LANTUS SOLOSTAR U-100 INSULIN) 100 unit/mL (3 mL) Inject subcutaneously 25 units daily in the evening. pravastatin (PRAVACHOL) 80 mg tablet Take 1 tablet by mouth once daily. For cholesterol. Insulin [place], Disposable, (1ST TIER UNIFINE PENTIPS) 31 gauge x 3/16 Use as directed 4 times a day. Dx: E11.65 flash glucose sensor (FREESTYLE DIANNE 14 DAY SENSOR) kit 1 Each every 2 weeks. Diagnoses: ICD10: E11.22, N18.32, Z79.4; E11.42, Z79.4. Sig: Check glucose 4 or more times per day. Patient on multiple insulin doses. gabapentin (NEURONTIN) 300 mg capsule Take 1 capsule by mouth three times daily for 180 days. NIFEdipine ER (PROCARDIA XL) 90 mg 24 hr tablet Take 1 tablet by mouth once daily. flash glucose scanning reader (FREESTYLE DIANNE 14 DAY READER) Diagnoses: ICD10: E11.22, N18.32, Z79.4; E11.42, Z79.4. Sig: Check glucose 4 or more times per day. Patient on multiple insulin doses. cholecalciferol (VITAMIN D) 1,000 unit tab tablet Take 1 tablet by mouth once daily. cyanocobalamin (VITAMIN B-12) 1,000 mcg tab Take 1 tablet by mouth once daily. aspirin(ECOTRIN LOW STRENGTH 81 MG TAB) Take one(1) tablet daily. FAMILY HISTORY FAMILY HISTORY Problem Relation Age of Onset Breast Cancer Mother at age 55 COPD Father Black lung Breast Cancer Sister at age 54 Diabetes Brother No Ocular Disease No Family History nothing known of SOCIAL HISTORY Social History Tobacco Use Smoking status: Former Smoker Types: Cigars Smokeless tobacco: Never Used Tobacco comment: quit 40 + years ago Vaping Use Vaping Use: Never used Substance Use Topics Alcohol use: Yes Comment: rarely, 2-3 glasses red wine per month Drug use: No PHYSICAL EXAM BP 134/76 Pulse 98 Resp 14 Wt 86.2 kg (190 lb) SpO2 97% BMI 26.50 kg/m General Appearance: well appearing, in no acute distress, alert Lungs: Lungs clear to auscultation. No wheezing, rhonchi, rales. Heart: RRR without murmur, gallop, or rubs. No ectopy DATA REVIEWED: Outside chart from [facility] ER reviewed. ASSESSMENT/PLAN: 1. Benign paroxysmal positional vertigo, unspecified laterality - ICD9: 386.11, ICD10: H81.10 (primary diagnosis) Symptoms consistent with BPPV. No new or worsening symptoms since onset. He does have chronic tinnitus, evaluated by ENT and no mention of possible Meniere's - CONSULT TO PHYSICAL THERAPY for further evaluation and vestibular treatments 2. Hyperkalemia - ICD9: 276.7, ICD10: E87.5 Recheck - BASIC METABOLIC PNL 3. Type 2 diabetes mellitus with diabetic polyneuropathy, with long-term current use of insulin (HCC) - ICD9: 250.60, 357.2, V58.67, ICD10: E11.42, Z79.4 - ALBUMIN/CREAT RATIO RND UR today 4. Hyperlipidemia, unspecified hyperlipidemia type - ICD9: 272.4, ICD10: E78.5 - LIPID PANEL BASIC today Prescription instructions reviewed with patient as applicable. Potential red flag symptoms discussed with the patient. Reviewed appropriate action plan to take if red flag symptoms occur. Patient agreeable to treatment plan. America Mcginnis APRN.SHRIMP CLEANER UPDATED HISTORY AND PHYSICAL EXAMINATION SERVICE DATE: 11/04/2021 SERVICE TIME: 7:09 AM PHYSICAL EXAM MUST BE COMPLETED ON ADMISSION The History and Physical (completed in the past 30 days) has been reviewed and the patient has beenexamined. The contents accurately reflect the patient's condition with the following additions or revisions since the H&P was completed. Examination indicates no changes. This H&P can be found in the attached. SIGNATURE: Ronal Xiong III, MD PATIENT NAME: Esvin West Sr. DATE: November 04, 2021 TIME: 7:09 AM documented in this encounterThe [facility]05-02-2022 Miscellaneous Notes* Telephone Encounter - Pham Scherer RN - 10/26/2021 3:12 PM EDT Patient has been identified by name and date of : Yes Pharmacy phones for refill(s): Pending Prescriptions Disp Refills NIFEDIPINE ER 90 MG TABLET,EXTENDED RELEASE 24 HR 10 tablet 0 Sig: Take 1 tablet by mouth once daily. CLARKE: No NIFEDIPINE ER 90 MG TABLET,EXTENDED RELEASE 24 HR 90 tablet 3 Sig: Take 1 tablet by mouth once daily. CLARKE: No INSULIN LISPRO (U-100) 100 UNIT/ML SUBCUTANEOUS PEN 15 mL 5 Sig: Inject 4 units breakfast, 6 units lunch, 6 units dinner. Take 1/2 the dose if the sugar is less then 120 CLARKE: No LOSARTAN 50 MG TABLET 90 tablet 3 Sig: Take 1 tablet by mouth once daily. CLARKE: No PRAVASTATIN 80 MG TABLET 90 tablet 3 Sig: Take 1 tablet by mouth once daily. For cholesterol. CLARKE: No FUROSEMIDE 40 MG TABLET 90 tablet 3 Sig: Take 1 tablet by mouth once daily. CLARKE: No MECLIZINE 25 MG TABLET 30 tablet 1 Sig: Take 1 tablet by mouth three times daily as needed. CLARKE: No Date of last office visit in primary care: 09/19/2021; Future Appt. 12/22/2021 Last 2 Encounter Wt Readings: Date: Wt: 10/14/2021 90.7 kg (200 lb) 09/22/2021 86.2 kg (190 lb) Previous labs/tests for medication: Cholesterol: HDL Cholesterol (mg/dL) Date Value 09/22/2021 52 09/03/2020 47 LDL Cholesterol (mg/dL) Date Value 09/22/2021 89 09/03/2020 97 ALT (U/L) Date Value 09/03/2020 <5 Non HDL Cholesterol (mg/dL) Date Value 09/22/2021 107 09/03/2020 128 Blood Pressure: BUN (mg/dL) Date Value 09/22/2021 39 06/15/2021 24 Sodium (mmol/L) Date Value 09/22/2021 142 06/15/2021 140 Last 1 Encounter BP Readings: Date: BP: 10/14/2021 147/66 Liver Function: ALT (U/L) Date Value 09/03/2020 <5 AST (U/L) Date Value 09/03/2020 16 Please advise. Thank you. Pham Scherer RN * Telephone Encounter - Roz Segovia LPN - 10/26/2021 11:14 AM EDT Last seen BILLING AND INSURANCE COORDINATOR 09/22/21 Next is 12/22/21 * Telephone Encounter - Marixa Rodriguez - 10/26/2021 9:07 AM EDT Patient has been identified by name and date of : Yes Pending Prescriptions Disp Refills NIFEDIPINE ER 90 MG TABLET,EXTENDED RELEASE 24 HR 10 tablet 0 Sig: Take 1 tablet by mouth once daily. CLARKE: No NIFEDIPINE ER 90 MG TABLET,EXTENDED RELEASE 24 HR 90 tablet 3 Sig: Take 1 tablet by mouth once daily. CLARKE: No RX INSTRUCTIONS: patient never received mail order from 10/13, need 90 day supply to mail order and 10 day supply to local [facility] Patient aware RX will be sent to pharmacy. No need to notify patient. Patient aware RX escripted to mail away pharmacy. No need to notify patient. Marixa Yuliya Pss documented in this encounterThe [facility]04-25-2022 Miscellaneous Notes* Telephone Encounter - Tianna Schneider Ma - 10/19/2021 2:06 PM EDT Called and spoke with PT, expressed understanding Encounter closed * Telephone Encounter - Chanda Phillips APRN.CNP - 10/19/2021 2:01 PM EDT Received a message that nephrology started him on jardiance for renal protection. He may require less insulin while on this medication. He should send me BG readings if he starts running low. Thank you documented in this encounterThe [facility] Hospital04-21-2022 History of Present illness Narrative* Brianna Gonzalez, PT - 10/15/2021 1:46 PM EDT Episode Visit Count: 3 Therapist That Will Oversee The Plan Of Care: Christina Gonzalez Start of Care Date: 09/28/21 Onset Date: 09/17/21 Plan of Care Certification Date: 09/28/21 Next Certification Due Date: 11/27/21 Patient Identified by Name and Date of : Yes REHABILITATION AND SPORTS THERAPY PHYSICAL THERAPY TREATMENT NOTE ASSESSMENT: Esvin West Sr. tolerated the session with no issues. He demonstrated improvements in reported symptoms. Asymptomatic with all testing performed today including vertebral artery testing.The patient will continue to benefit from ongoing skilled physical therapy to progress toward set goals. PLAN FOR NEXT VISIT: hold chart in case symptoms return SUBJECTIVE: Patient Reason for Visit: Denies symptoms of dizziness since last PT appointment. Voicing concerns that he has not heard back from his doctor regarding PT recommnedations. Secure chat message sent to KAMILA with concerns for possible need for Verterbral Artery testing due to positive symptoms last session with R side Vertebral Artery testing. Upon review of chart was able to inform patient that KAMILA wiill discuss with PCP tomorrow once he is back in the office. patient does not wish to continue with balance ex to address his neuropathy. he fills this is not a primary concern. Would like to know what has caused his episodes of severe dizziness Patient agrees to hold jeanie PT as he is asymptomatic. Will call if symptoms recur. Vestibular Rating of current symptoms: 0/10 Pain: Pain Pain Level: 0 Post Treatment Pain Post Treatment Pain Level: No Change OBJECTIVE MEASURES WITH LEVEL OF FUNCTION: Spine Observations Comments: No tenderness appreciated Comments: No tenderness appreciated Spine Joint Mobility Upper Cervical Rotation : WNL Special Tests - Cervical Vertebral Artery Test: Negative TREATMENT: Manual Therapy: 1: supine sub occ release 5 min 2: cervical ROM in supine for rotation R/L 3: vertebral artery testing in supine Skilled Intervention: Manual skills to improve joint mobility, ROM, and decrease pain. Utilized anatomy knowledge of the therapist, and assessment of patient's response to intervention. Neuromuscular Re-Education: 2: NBOS 1x viewing 60 sec 3x H and V 3: seated neck retraction prior to x1 viewing ex 4: discussion re current findings, possible causes of symptoms. Review of HEP with focus on neck retraction and cervical rotation ex. Skilled Intervention: Skilled judgment used to assess appropriate program for balance and coordination activity. Patient education as noted. Billing Manual TherapyTreatment Minutes: 10 Neuromuscular Re-Education Treatment Minutes: 30 Total Treatment Time Minutes (timed/untimed): 40 Brianna Gonzalez PT documented in [facility] encounterThe [facility] Instructions* Patient Instructions* Jazmine Krishnan DO - 10/14/2021 1:12 PM EDT Jardiance 10 mg daily. Called it into your home delivery Avoid Advil, Ibuprofen(Motrin), Aleve(Naproxen), Meloxicam(Mobic) and other pain/arthritis medications called NSAIDS. Tylenol if necessary for pain Follow low salt diet. (1/2 tsp salt) <2 grams Lab work in 2 days before next visit Follow up with Dr. Krishnan in 6 months. Please bring a complete list of your medications, the dosage and times taken - to every visit. We want to know that ALL of your concerns/needs relevant to this visit- were met today and that we have hopefully exceeded your expectations. You may receive a survey regarding your care today. If you do, please take a few minutes to fill itout and send it back. It will be greatly appreciated. documented in this encounterThe [facility]04-[facility]22 History of Present illness Narrative* Jazmine Krishnan DO - 10/14/2021 1:00 PM EDT [facility] SERVICE DATE: 10/14/2021 SERVICE TIME: 1:20 PM CHIEF COMPLAINT: CKD IIIb HPI: Mr. West is a 76 year old male with a PMHx of diabetes mellitus typi II and hypertension who presents with chronic kidney disease stage IIIb. Used to follow with Dr. Elam and Madiha Hamm. Last appointment on 10/23/2020 with Madiha. Renal function stable since his last visit. Endocrinology 2x, podiatry 3x, neurosurgery, internal medicine 3x, ophthalmology, general surgery (colonoscopy), family practice. Hypertension: - Nifedipine 90 mg daily - Lasix 40 mg daily - Losartan 50 mg daily Renal function decreased from when it was last checked, but is on par for his linear decline in renal function. No acute complaints Duration (when): Years. Progressive since 2008 Location (where): Kidneys Severity (ex: creat 4.5, BP 200/100): CKD IIIb Quality (ex: sharp, dull): Chronic Context (ex: activity at onset or related to condition): DMII Timing (ex: continuous, intermittent): Continuous Modifying factors (ex: medications, interventions): Insulin, blood pressure medications Associated signs & symptoms (ex: edema, SOB): N/a PAST MEDICAL HISTORY: ACTIVE PROBLEM LIST Anemia in Stage 3 Chronic Kidney Disease (Hcc) Essential Hypertension Hyperlipidemia Polyneuropathy in Diabetes (Hcc) Erectile Dysfunction Associated With Type 2 Diabetes Mellitus (Hcc) Overweight Acute Pain of Right Shoulder Bph With Obstruction/Lower Urinary Tract Symptoms Tubular Adenoma of Colon Secondary Hypertension Due to Renal Disease Vitreous Hemorrhage (Hcc) Glaucomatous Optic Atrophy of Both Eyes Visual Field Loss Primary Open Angle Glaucoma (Poag) of Right Eye, Severe Stage Primary Open Angle Glaucoma (Poag) of Left Eye, Mild Stage Secondary Renal Hyperparathyroidism (Hcc) Hyperkalemia 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, With Long-Term Current Use of Insulin ([facility]) Punctate Keratitis, Bilateral Pseudophakia of Both Eyes Type 2 Diabetes Mellitus With Diabetic Polyneuropathy, With Long-Term Current Use of Insulin ([facility]) Type 2 Diabetes Mellitus With Stage 3 Chronic Kidney Disease, With Long-Term Current Use of Insulin([facility]) Strain of Tendon of Right Rotator Cuff Weakness Numbness and Tingling of Right Arm Primary Open Angle Glaucoma (Poag) of Both Eyes, Severe Stage Benign Paroxysmal Positional Vertigo Dizziness and Giddiness MEDICATIONS: gabapentin (NEURONTIN) 300 mg capsule Take 1 capsule by mouth three times daily for 10 days. NIFEdipine ER (PROCARDIA XL) 90 mg 24 hr tablet Take 1 tablet by mouth once daily. gabapentin (NEURONTIN) 300 mg capsule Take 1 capsule by mouth three times daily for 180 days. NIFEdipine ER (PROCARDIA XL) 90 mg 24 hr tablet Take 1 tablet by mouth once daily. promethazine (PHENERGAN) 25 mg tablet Take 1 tablet by mouth every 6 hours as needed. furosemide (LASIX) 40 mg tablet Take 1 tablet by mouth once daily. meclizine (ANTIVERT) 25 mg tab Take 1 tablet by mouth three times daily as needed. mupirocin (BACTROBAN) 2 % ointment Apply 1 application to affected area three times daily. latanoprost (XALATAN) 0.005 % ophthalmic solution INSTILL 1 DROP IN BOTH EYES DAILY AT BEDTIME Lancets lancets Test blood sugar(s) 3 times daily. Dx: Type 2 DM - Uncontrolled E11.65 Insulin: Yes blood sugar diagnostic (BLOOD GLUCOSE TEST) test strip Test blood sugar(s) 3 times daily. Dx: Type 2 DM - Uncontrolled E11.65 Insulin: Yes dorzolamide-timolol (COSOPT) 22.3-6.8 mg/mL ophthalmic solution Use 1 Drop in both eyes twice daily. Use at 8 AM and 4 PM losartan (COZAAR) 50 mg tablet Take 1 tablet by mouth once daily. insulin lispro (HUMALOG KWIKPEN INSULIN) 100 unit/mL Inject 4 units breakfast, 6 units lunch, 6 units dinner. Take 1/2 the dose if the sugar is less then 120 insulin glargine (LANTUS SOLOSTAR U-100 INSULIN) 100 unit/mL (3 mL) Inject subcutaneously 25 units daily in the evening. pravastatin (PRAVACHOL) 80 mg tablet Take 1 tablet by mouth once daily. For cholesterol. Insulin [place], Disposable, (1ST TIER UNIFINE PENTIPS) 31 gauge x 3/16 Use as directed 4 times a day. Dx: E11.65 flash glucose sensor (FREESTYLE DIANNE 14 DAY SENSOR) kit 1 Each every 2 weeks. Diagnoses: ICD10: E11.22, N18.32, Z79.4; E11.42, Z79.4. Sig: Check glucose 4 or more times per day. Patient on multiple insulin doses. flash glucose scanning reader (FREESTYLE DIANNE 14 DAY READER) Diagnoses: ICD10: E11.22, N18.32, Z79.4; E11.42, Z79.4. Sig: Check glucose 4 or more times per day. Patient on multiple insulin doses. cholecalciferol (VITAMIN D) 1,000 unit tab tablet Take 1 tablet by mouth once daily. cyanocobalamin (VITAMIN B-12) 1,000 mcg tab Take 1 tablet by mouth once daily. aspirin(ECOTRIN LOW STRENGTH 81 MG TAB) Take one(1) tablet daily. ALLERGIES: ALLERGIES Allergen Reactions Cortisone Other: See Comments Shunk real hot, as if someone threw boiling water on him Zestril [Lisinopril] Intolerance ARF, hypokalemia REVIEW OF SYSTEMS: Constitutional: No complaints Cardiovascular: No complaints Genitourinary: No complaints PHYSICAL EXAM: BP 147/66 Pulse 80 Resp 12 Ht 179.1 cm (5' 10.5 ) Wt 90.7 kg (200 lb) BMI 28.29 kg/m Average 137/65 Constitutional:No acute distress, Responsive, Normal habitus and Well-nourished Neck:Trachea midline No jugular venous distension Cardiovascular:No peripheral edema Regular rate and ryhthm, normal S1 and S2, no murmurs, rubs, or gallops Respiratory:Normal respiratory effort. Lungs clear bilaterally. Abdomen:Soft, non-tender, non-distended. Normal bowel sounds. No hepatosplenomegaly. Psychiatric: Alert and oriented x self, place, time, and setting Normal mood/affect DATA: Diagnostic tests reviewed for today's visit: Glucose (mg/dL) Date Value 09/22/2021 107 06/15/2021 177 Potassium (mmol/L) Date Value 09/22/2021 4.9 06/15/2021 5.0 Sodium (mmol/L) Date Value 09/22/2021 142 06/15/2021 140 Chloride (mmol/L) Date Value 09/22/2021 107 06/15/2021 105 CO2 (mmol/L) Date Value 09/22/2021 25 06/15/2021 25 Creatinine (mg/dL) Date Value 09/22/2021 2.15 06/15/2021 1.78 BUN (mg/dL) Date Value 09/22/2021 39 06/15/2021 24 Anion Gap (mmol/L) Date Value 09/22/2021 10 06/15/2021 10 Calcium (mg/dL) Date Value 06/15/2021 8.9 Calcium, Total (mg/dL) Date Value 09/22/2021 9.7 Protein, Total (g/dL) Date Value 09/03/2020 7.7 Albumin (g/dL) Date Value 06/15/2021 4.3 Bilirubin, Total (mg/dL) Date Value 09/03/2020 0.6 Alkaline Phosphatase (U/L) Date Value 09/03/2020 65 AST (U/L) Date Value 09/03/2020 16 ALT (U/L) Date Value 09/03/2020 <5 No results for input(s): COLOR, CLARITY, UGLUC, UBILI, UKET, SPGR, UHB, UPH, UPROT, NITRITES, LEUKEST, UWBC, URBC in the last 8784 hours. ASSESSMENT: Mr. West is a 76 year old male with a PMHx of diabetes mellitus typi II and hypertension who presents with chronic kidney disease stage IIIb. 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 Anemia of renal disease - Hemoglobin at goal last year 3. Secondary hyperparathyroidism - PTH 76 2020, Vitamin D wnl 2020 4. Primary hypertension - Decent control on current medications Hypertension: - Nifedipine 90 mg daily - Lasix 40 mg daily - Losartan 50 mg daily 5. Vertigo PLAN: - Start Jardiance 10 mg daily in order to attempt to slow his decline in renal function - Renal labs every 6 months - Update PTH/Vitamin D - Follow up in 6 months SIGNATURE: Jazmine Krishnan DO PATIENT NAME: Esvin West Sr. DATE: October 14, 2021 TIME: 1:20 PM OFFICE NUMBER: [phone] CC: PRIMARY CARE PHYSICIAN: Jeses Glover MD * Royce Hammer - 10/14/2021 12:42 PM EDT Patient declined medication review at this time. Pharmacy was asked and correct. Royce Hammer PATIENT FORGOT MEDICATION LIST. documented in this encounterThe [facility]04-20-2022 Miscellaneous Notes* Telephone Encounter - Bala Penny Ma - 10/14/2021 9:51 AM EDT Faxed. * Telephone Encounter - Bala Penny Ma - 10/14/2021 9:38 AM EDT [place] - can you print this and I will fax? * Telephone Encounter - Jesse Glover MD - 10/13/2021 12:35 PM EDT Why is this e [employer] not set up for e- prescribing? If I try to send it will print. * Telephone Encounter - Madiha Dhaliwal LPN - 10/12/2021 3:21 PM EDT Patient returned call and said he uses [facility] for his mail away pharmacy. Reset rx to file. * Telephone Encounter - Roz Segovia LPN - 10/12/2021 3:13 PM EDT When tried to call this rx the the pharmacy. 1.Need to verify this is the correct pharmacy with pt. 2. When called the pharmacy they will not accept phoned refills. Waiting for pt to return call to a nurse. Will have to route back to pcp to send rx electronically. * Telephone Encounter - Jesse Glover MD - 10/12/2021 2:58 PM EDT Patient's request for medication is as follows Signed Prescriptions Disp Refills gabapentin (NEURONTIN) 300 mg capsule 270 capsule 1 Sig: Take 1 capsule by mouth three times daily for 180 days. CLARKE: No Authorizing Provider: JESSE GLOVER Order printed. Escript not available. Please phone pharmacy and notify patient. Jesse Glover MD * Telephone Encounter - Willa Patel Pss - 10/07/2021 4:47 PM EDT Patient would like his gabapentin called into the mail order pharmacy if possible. Otherwise he'd like it sent to the [facility]. * Telephone Encounter - Willa Patel Pss - 10/07/2021 4:44 PM EDT Pharmacy verified in [facility] Patient has been identified by name and date of : Yes Patient aware RX will be sent to pharmacy. No need to notify patient. Patient phones for refill(s): Pending Prescriptions Disp Refills GABAPENTIN 300 MG CAPSULE 270 capsule 1 Sig: Take 1 capsule by mouth three times daily for 180 days. CLARKE: No Date of last office visit : 09/22/2021 Date of next office visit : 10/16/2021 Last 2 Encounter Wt Readings: Date: Wt: 09/22/2021 86.2 kg (190 lb) 08/24/2021 89.8 kg (198 lb) Please advise. Willa Patel Pss documented in this encounterThe [facility]04-19-2022 Miscellaneous Notes* Telephone Encounter - Gladis Sotelohl Pss - 10/13/2021 10:37 AM EDT Short term pills needed sent to local pharmacy Gladis Scott Pss documented in this encounterThe [facility]04-12-[facility] History of Present illness Narrative* Brianna Gonzalez, PT - 10/06/2021 2:55 PM EDT Episode Visit Count: 2 Therapist That Will Oversee The Plan Of Care: Christina Gonzalez Start of Care Date: 09/28/21 Onset Date: 09/17/21 Plan of Care Certification Date: 09/28/21 Next Certification Due Date: 11/27/21 Patient Identified by Name and Date of : Yes RE[facility]ABIL[facility] SPORTS THERAPY PHYSICAL THERAPY TREATMENT NOTE ASSESSMENT: Esvin West Sr. tolerated the session with dizziness with cervical extension and rotation to right.. He demonstrated improvements in balance. The patient will continue to benefit from ongoing skilled physical therapy to progress toward set goals. PLAN FOR NEXT VISIT: continue with juan david christiansen, address C-spine restrictions SUBJECTIVE: Patient Reason for Visit: Reports one episode of signicant dizziness lasting about 45 min after riding in car, had to swerve to avoid pot hole. Does report he had been working quite a bit in the yard prior to episode. Otherwise intemittent sense of imbalance and occaisional light headedness with sitting or standing up quickly. Also reports continued issues with fwd bending. States no issues with HEP. Does feel they are helping him to feel steadier. Pain: Post Treatment Pain Post Treatment Pain Level: No Change OBJECTIVE MEASURES WITH LEVEL OF FUNCTION: Posture / Alignment Posture: Forward head;Rounded shoulders Spine Observations R Cervical Spine Palpation Tenderness: Comments Comments: No tenderness appreciated L Cervical Spine Palpation Tenderness: Comments Comments: No tenderness appreciated Cervical Spine ROM Upper Cervical AROM: limited upper cervical rotation to L Spine Joint Mobility Upper Cervical Rotation : Left restriction Special Tests - Cervical Vertebral Artery Test: (symptomatic with extension and rotation to R) 4 Stage Balance Test Narrow base of support (sec): 10 sec Semi-tandem base of support (sec): 10 sec Tandem base of support (sec): (unable to hold, fearful of falling) Single leg stance - right (sec): 5 sec (moderate FLIGHT SURGEON) Single leg stance - left (sec): 7 sec (light FLIGHT SURGEON) TREATMENT: Manual Therapy: 1: supine sub occ release 5 min 2: upper cervical ROM for rotation and flexion 3: vertebral artery testing in supine and sitting Skilled Intervention: Manual skills to improve joint mobility, ROM, and decrease pain. Utilized anatomy knowledge of the therapist, and assessment of patient's response to intervention. Neuromuscular Re-Education: 2: NBOS 1x viewing 60 sec 3x H and V 3: 4 stage balance test 4: *semi tandem stance 30 sec 3x 5: A/P sways R/L sways with SBA for safety/patient security 6: attempted tandem stance, pt unable/unwilling due to fear of instability 7: SLS with FLIGHT SURGEON 8: extensive patient education on importance of maintaining hydration. Review of ROM ex to perform prior to change in position to minimize risk of orthostatic hypotension. Skilled Intervention: Skilled judgment used to assess appropriate program for balance and coordination activity. Reviewed and educated patient on additions/changes for home program as noted above with an (*). Correct performance of home program was facilitated with verbal, visual and tactile cueing. Patient education as noted. Billing Manual TherapyTreatment Minutes: 20 Neuromuscular Re-Education Treatment Minutes: 35 Total Treatment Time Minutes (timed/untimed): 55 Brianna Gonzalez PT documented in this encounterThe [facility]04-08-2022 Miscellaneous Notes* Telephone Encounter - Alia Rodriguez - 10/02/2021 1:30 PM EDT Patient has been identified by name and date of : Yes Pending Prescriptions Disp Refills NIFEDIPINE ER 90 MG TABLET,EXTENDED RELEASE 24 HR 90 tablet 3 Sig: Take 1 tablet by mouth once daily. CLARKE: No RX INSTRUCTIONS: Patient aware RX escripted to mail away pharmacy. No need to notify patient. Alia Rodriguez documented in this encounterThe [facility]04-[facility] History of Past illness Narrative* Problem Noted Date Resolved Date Benign paroxysmal positional vertigo 09/28/2021 02/03/2022 Dizziness and giddiness 09/28/2021 02/04/20 22 Strain of tendon of right rotator cuff 02/03/2022 Weakness 09/29/2020 02/03/2022 CKD (chronic kidney disease) stage 3, GFR 30-59 ml/min 05/26/2017 10/04/2019 Type 2 DM with CKD stage 3 and hypertension 03/2809/17/2020 Type 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, uncontrolled(250.62) 07/23/200902/25 Ulcer of other part of foot 06/30/200902/25 Dermatophytosis of nail 04/22/2009 03/09/20 11 Other specified gastritis without mention of hem orrhage 09/18/2008 07/07/2015 Hypertrophy of prostate with out urinary obstruction and other lower urinary tract symptoms (LUTS) 09/18/2008 09/08/2011 Background diabetic retinopathy(362.01) 09/19/19 09 06/30/2015 Type II or unspecified type diabetes mellitus without mention of complication, uncontrolled 07/27/2005 08/09/2008 Overview: Alb/Creat 10 in 7-08 A1C 7.9% in 7-08, 11.8% in 1-09 Creat 1.4 in 1-09 Asthma 07/07/2015 documented as of this encounter (statuses as of 02/23/2022) [facility] of Past illness Narrative* Problem Noted Date Resolved Date Benign paroxysmal positional vertigo 09/28/2021 02/03/2022 Dizziness and giddiness 09/28/2021 02/04/20 22 Strain of tendon of right rotator cuff 02/03/2022 Weakness 09/29/2020 02/03/2022 CKD (chronic kidney disease) stage 3, GFR 30-59 ml/min 05/26/2017 10/04/2019 Type 2 DM with CKD stage 3 and hypertension 03/2809/17/2020 Type 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, uncontrolled(250.62) 07/23/200902/25 Ulcer of other part of foot 06/30/200902/25 Dermatophytosis of nail 04/22/2009 03/09/20 11 Other specified gastritis without mention of hem orrhage 09/18/2008 07/07/2015 Hypertrophy of prostate with out urinary obstruction and other lower urinary tract symptoms (LUTS) 09/18/2008 09/08/2011 Background diabetic retinopathy(362.01) 09/19/19 09 06/30/2015 Type II or unspecified type diabetes mellitus without mention of complication, uncontrolled 07/27/2005 08/09/2008 Overview: Alb/Creat 10 in 01-01 A1C 7.9% in 01-01, 11.8% in 07-05 Creat 1.4 in 07-05 Asthma 07/07/2015 documented as of this encounter (statuses as of 02/25/2022) [facility] of Past illness Narrative* Problem Noted Date Resolved Date Benign paroxysmal positional vertigo 09/28/2021 02/03/2022 Dizziness and giddiness 09/28/2021 02/04/20 22 Strain of tendon of right rotator cuff 02/03/2022 Weakness 09/29/2020 02/03/2022 CKD (chronic kidney disease) stage 3, GFR 30-59 ml/min 05/26/2017 10/04/2019 Type 2 DM with CKD stage 3 and hypertension 03/2809/17/2020 Type 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, uncontrolled(250.62) 07/23/200902/25 Ulcer of other part of foot 06/30/200902/25 Dermatophytosis of nail 04/22/2009 03/09/20 11 Other specified gastritis without mention of hem orrhage 09/18/2008 07/07/2015 Hypertrophy of prostate with out urinary obstruction and other lower urinary tract symptoms (LUTS) 09/18/2008 09/08/2011 Background diabetic retinopathy(362.01) 09/19/19 09 06/30/2015 Type II or unspecified type diabetes mellitus without mention of complication, uncontrolled 07/27/2005 08/09/2008 Overview: Alb/Creat 10 in 7-08 A1C 7.9% in 7-08, 11.8% in 1- Creat 1.4 in 1- Asthma 07/07/2015 documented as of this encounter (statuses as of 04/07/2022) [facility] of Past illness Narrative* Problem Noted Date Resolved Date Benign paroxysmal positional vertigo 09/28/2021 02/03/2022 Dizziness and giddiness 09/28/2021 02/04/20 22 Strain of tendon of right rotator cuff 02/03/2022 Weakness 09/29/2020 02/03/2022 CKD (chronic kidney disease) stage 3, GFR 30-59 ml/min 05/26/2017 10/04/2019 Type 2 DM with CKD stage 3 and hypertension 03/2809/17/2020 Type 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, uncontrolled(250.62) 07/23/200902/25 Ulcer of other part of foot 06/30/200902/25 Dermatophytosis of nail 04/22/2009 03/09/20 11 Other specified gastritis without mention of hem orrhage 09/18/2008 07/07/2015 Hypertrophy of prostate with out urinary obstruction and other lower urinary tract symptoms (LUTS) 09/18/2008 09/08/2011 Background diabetic retinopathy(362.01) 09/19/19 09 06/30/2015 Type II or unspecified type diabetes mellitus without mention of complication, uncontrolled 07/27/2005 08/09/2008 Overview: Alb/Creat 10 in 7-08 A1C 7.9% in 7-08, 11.8% in 1- Creat 1.4 in 1- Asthma 07/07/2015 documented as of this encounter (statuses as of 04/07/2022) [facility] Past illness Narrative* Problem Noted Date Resolved Date Benign paroxysmal positional vertigo 09/28/2021 02/03/2022 Dizziness and giddiness 09/28/2021 02/04/20 22 Strain of tendon of right rotator cuff 02/03/2022 Weakness 09/29/2020 02/03/2022 CKD (chronic kidney disease) stage 3, GFR 30-59 ml/min 05/26/2017 10/04/2019 Type 2 DM with CKD stage 3 and hypertension 03/2809/17/2020 Type 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, uncontrolled(250.62) 07/23/200902/25 Ulcer of other part of foot 06/30/200902/25 Dermatophytosis of nail 04/22/2009 03/09/20 11 Other specified gastritis without mention of hem orrhage 09/18/2008 07/07/2015 Hypertrophy of prostate with out urinary obstruction and other lower urinary tract symptoms (LUTS) 09/18/2008 09/08/2011 Background diabetic retinopathy(362.01) 09/19/19 09 06/30/2015 Type II or unspecified type diabetes mellitus without mention of complication, uncontrolled 07/27/2005 08/09/2008 Overview: Alb/Creat 10 in 7-08 A1C 7.9% in 7-08, 11.8% in -09 Creat 1.4 in - Asthma 07/07/2015 documented as of this encounter (statuses as of 04/08/2022) [facility] illness Narrative* Problem Noted Date Resolved Date Benign paroxysmal positional vertigo 09/28/2021 02/03/2022 Dizziness and giddiness 09/28/2021 02/04/20 22 Strain of tendon of right rotator cuff 02/03/2022 Weakness 09/29/2020 02/03/2022 CKD (chronic kidney disease) stage 3, GFR 30-59 ml/min 05/26/2017 10/04/2019 Type 2 DM with CKD stage 3 and hypertension 03/2809/17/2020 Type 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, uncontrolled(250.62) 07/23/200902/25 Ulcer of other part of foot 06/30/200902/25 Dermatophytosis of nail 04/22/2009 03/09/20 11 Other specified gastritis without mention of hem orrhage 09/18/2008 07/07/2015 Hypertrophy of prostate with out urinary obstruction and other lower urinary tract symptoms (LUTS) 09/18/2008 09/08/2011 Background diabetic retinopathy(362.01) 09/19/19 09 06/30/2015 Type II or unspecified type diabetes mellitus without mention of complication, uncontrolled 07/27/2005 08/09/2008 Overview: Alb/Creat 10 in 7-08 A1C 7.9% in 7-08, 11.8% in 07-05 Creat 1.4 in - Asthma 07/07/2015 documented as of this encounter (statuses as of 04/12/2022) [facility] illness Narrative* Problem Noted Date Resolved Date Benign paroxysmal positional vertigo 09/28/2021 02/03/2022 Dizziness and giddiness 09/28/2021 02/04/20 Strain of tendon of right rotator cuff 02/03/2022 Weakness 09/29/2020 02/03/2022 CKD (chronic kidney disease) stage 3, GFR 30-59 ml/min 05/26/2017 10/04/2019 Type 2 DM with CKD stage 3 and hypertension 03/2809/17/2020 Type 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, uncontrolled(250.62) 07/23/200902/25 Ulcer of other part of foot 06/30/200902/25 Dermatophytosis of nail 04/22/2009 03/09/20 11 Other specified gastritis without mention of hem orrhage 09/18/2008 07/07/2015 Hypertrophy of prostate with out urinary obstruction and other lower urinary tract symptoms (LUTS) 09/18/2008 09/08/2011 Background diabetic retinopathy(362.01) 09/19/19 09 06/30/2015 Type II or unspecified type diabetes mellitus without mention of complication, uncontrolled 07/27/2005 08/09/2008 Overview: Alb/Creat 10 in 7-08 A1C 7.9% in 7-08, 11.8% in - Creat 1.4 in - Asthma 07/07/2015 documented as of this encounter (statuses as of 04/12/2022) [facility] Narrative* Problem Noted Date Resolved Date Benign paroxysmal positional vertigo 09/28/2021 02/03/2022 Dizziness and giddiness 09/28/2021 02/04/20 22 Strain of tendon of right rotator cuff 02/03/2022 Weakness 09/29/2020 02/03/2022 CKD (chronic kidney disease) stage 3, GFR 30-59 ml/min 05/26/2017 10/04/2019 Type 2 DM with CKD stage 3 and hypertension 03/2809/17/2020 Type 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, uncontrolled(250.62) 07/23/200902/25 Ulcer of other part of foot 06/30/200902/25 Dermatophytosis of nail 04/22/2009 03/09/20 11 Other specified gastritis without mention of hem orrhage 09/18/2008 07/07/2015 Hypertrophy of prostate with out urinary obstruction and other lower urinary tract symptoms (LUTS) 09/18/2008 09/08/2011 Background diabetic retinopathy(362.01) 09/19/19 09 06/30/2015 Type II or unspecified type diabetes mellitus without mention of complication, uncontrolled 07/27/2005 08/09/2008 Overview: Alb/Creat 10 in 7-08 A1C 7.9% in 7-08, 11.8% in 1-09 Creat 1.4 in 1-09 Asthma 07/07/2015 documented as of this encounter (statuses as of 04/20/2022) [facility]04-04-2022 History of Past illness Narrative* Problem Noted Date Resolved Date Benign paroxysmal positional vertigo 09/28/2021 02/03/2022 Dizziness and giddiness 09/28/2021 02/04/20 22 Strain of tendon of right rotator cuff 02/03/2022 Weakness 09/29/2020 02/03/2022 CKD (chronic kidney disease) stage 3, GFR 30-59 ml/min 05/26/2017 10/04/2019 Type 2 DM with CKD stage 3 and hypertension 03/2809/17/2020 Type 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, uncontrolled(250.62) 07/23/200902/25 Ulcer of other part of foot 06/30/200902/25 Dermatophytosis of nail 04/22/2009 03/09/20 11 Other specified gastritis without mention of hem orrhage 09/18/2008 07/07/2015 Hypertrophy of prostate with out urinary obstruction and other lower urinary tract symptoms (LUTS) 09/18/2008 09/08/2011 Background diabetic retinopathy(362.01) 09/19/19 09 06/30/2015 Type II or unspecified type diabetes mellitus without mention of complication, uncontrolled 07/27/2005 08/09/2008 Overview: Alb/Creat 10 in 01-01 A1C 7.9% in 01-01, 11.8% in 07-05 Creat 1.4 in 07-05 Asthma 07/07/2015 documented as of this encounter (statuses as of 04/20/2022) [facility]04-04[facility]20[facility] History of Past illness Narrative* Problem Noted Date Resolved Date Benign paroxysmal positional vertigo 09/28/2021 02/03/2022 Dizziness and giddiness 09/28/2021 02/04/20 22 Strain of tendon of right rotator cuff 02/03/2022 Weakness 09/29/2020 02/03/2022 CKD (chronic kidney disease) stage 3, GFR 30-59 ml/min 05/26/2017 10/04/2019 Type 2 DM with CKD stage 3 and hypertension 03/2809/17/2020 Type 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, uncontrolled(250.62) 07/23/200902/25 Ulcer of other part of foot 06/30/200902/25 Dermatophytosis of nail 04/22/2009 03/09/20 11 Other specified gastritis without mention of hem orrhage 09/18/2008 07/07/2015 Hypertrophy of prostate with out urinary obstruction and other lower urinary tract symptoms (LUTS) 09/18/2008 09/08/2011 Background diabetic retinopathy(362.01) 09/19/19 09 06/30/2015 Type II or unspecified type diabetes mellitus without mention of complication, uncontrolled 07/27/2005 08/09/2008 Overview: Alb/Creat 10 in 7-08 A1C 7.9% in 7-08, 11.8% in 1-09 Creat 1.4 in 1-09 Asthma 07/07/2015 documented as of this encounter (statuses as of 04/21/2022) [facility]04-[facility]20[facility] History of Past illness Narrative* Problem Noted Date Resolved Date Benign paroxysmal positional vertigo 09/28/2021 02/03/2022 Dizziness and giddiness 09/28/2021 02/04/20 22 Strain of tendon of right rotator cuff 02/03/2022 Weakness 09/29/2020 02/03/2022 CKD (chronic kidney disease) stage 3, GFR 30-59 ml/min 05/26/2017 10/04/2019 Type 2 DM with CKD stage 3 and hypertension 03/2809/17/2020 Type 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, uncontrolled(250.62) 07/23/200902/25 Ulcer of other part of foot 06/30/200902/25 Dermatophytosis of nail 04/22/2009 03/09/20 11 Other specified gastritis without mention of hem orrhage 09/18/2008 07/07/2015 Hypertrophy of prostate with out urinary obstruction and other lower urinary tract symptoms (LUTS) 09/18/2008 09/08/2011 Background diabetic retinopathy(362.01) 09/19/19 09 06/30/2015 Type II or unspecified type diabetes mellitus without mention of complication, uncontrolled 07/27/2005 08/09/2008 Overview: Alb/Creat 10 in 7-08 A1C 7.9% in 7-08, 11.8% in 1- Creat 1.4 in 1-09 Asthma 07/07/2015 documented as of this encounter (statuses as of 04/22/2022) [facility] History of Past illness Narrative* Problem Noted Date Resolved Date Benign paroxysmal positional vertigo 09/28/2021 02/03/2022 Dizziness and giddiness 09/28/2021 02/04/20 22 Strain of tendon of right rotator cuff 02/03/2022 Weakness 09/29/2020 02/03/2022 CKD (chronic kidney disease) stage 3, GFR 30-59 ml/min 05/26/2017 10/04/2019 Type 2 DM with CKD stage 3 and hypertension 03/2809/17/2020 Type 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, uncontrolled(250.62) 07/23/200902/25 Ulcer of other part of foot 06/30/200902/25 Dermatophytosis of nail 04/22/2009 03/09/20 11 Other specified gastritis without mention of hem orrhage 09/18/2008 07/07/2015 Hypertrophy of prostate with out urinary obstruction and other lower urinary tract symptoms (LUTS) 09/18/2008 09/08/2011 Background diabetic retinopathy(362.01) 09/19/19 09 06/30/2015 Type II or unspecified type diabetes mellitus without mention of complication, uncontrolled 07/27/2005 08/09/2008 Overview: Alb/Creat 10 in 7-08 A1C 7.9% in -08, 11.8% in - Creat 1.4 in - Asthma 07/07/2015 documented as of this encounter (statuses as of 04/26/2022) [facility] History of Past illness Narrative* Problem Noted Date Resolved Date Benign paroxysmal positional vertigo 09/28/2021 02/03/2022 Dizziness and giddiness 09/28/2021 02/04/20 22 Strain of tendon of right rotator cuff 02/03/2022 Weakness 09/29/2020 02/03/2022 CKD (chronic kidney disease) stage 3, GFR 30-59 ml/min 05/26/2017 10/04/2019 Type 2 DM with CKD stage 3 and hypertension 03/2809/17/2020 Type 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, uncontrolled(250.62) 07/23/200902/25 Ulcer of other part of foot 06/30/200902/25 Dermatophytosis of nail 04/22/2009 03/09/20 11 Other specified gastritis without mention of hem orrhage 09/18/2008 07/07/2015 Hypertrophy of prostate with out urinary obstruction and other lower urinary tract symptoms (LUTS) 09/18/2008 09/08/2011 Background diabetic retinopathy(362.01) 09/19/19 09 06/30/2015 Type II or unspecified type diabetes mellitus without mention of complication, uncontrolled 07/27/2005 08/09/2008 Overview: Alb/Creat 10 in 01-01 A1C 7.9% in 01-01, 11.8% in 07-05 Creat 1.4 in 07-05 Asthma 07/07/2015 documented as of this encounter (statuses as of 04/27/2022) [facility] History of Past illness Narrative* Problem Noted Date Resolved Date Benign paroxysmal positional vertigo 09/28/2021 02/03/2022 Dizziness and giddiness 09/28/2021 02/04/20 22 Strain of tendon of right rotator cuff 02/03/2022 Weakness 09/29/2020 02/03/2022 Punctate keratitis, bilateral 06/22/2019 Pseudophakia of both eyes 06/22/20192021 Primary open angle glaucoma (POAG) of left eye, mild stage 01/09/2019 04/27/2022 Primary open angle glaucoma (POAG) of right eye, severe stage 09/19/2018 04/27/2022 Vitreous hemorrhage 04/19/2018 04/27/2022 Overview: Added automatically from request for surgery [id number] CKD (chronic kidney disease) stage 3, GFR 30-59 ml/min 05/26/2017 10/04/2019 Type 2 DM with CKD stage 3 and hypertension 03/2809/17/2020 Type 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, uncontrolled(250.62) 07/23/200902/25 Ulcer of other part of foot 06/30/200902/25 Dermatophytosis of nail 04/22/2009 03/09/20 11 Acute pain of right shoulder 09/25/200806/2021 Overview: Right. Other specified gastritis without mention of hem orrhage 09/18/2008 07/07/2015 Hypertrophy of prostate with out urinary obstruction and other lower urinary tract symptoms (LUTS) 09/18/2008 09/08/2011 Background diabetic retinopathy(362.01) 09/19/19 09 06/30/2015 Erectile dysfunction associa violet with type 2 diabetes mellitus 07/09/2008 04/27/2022 Polyneuropathy in diabetes 07/27/200504/27 Type II or unspecified type diabetes mellitus without mention of complication, uncontrolled 07/27/2005 08/09/2008 Overview: Alb/Creat 10 in 01-01 A1C 7.9% in 01-01, 11.8% in 07-05 Creat 1.4 in 07-05 Asthma 07/07/2015 documented as of this encounter (statuses as of 04/27/2022) [facility] History of Past illness Narrative* Problem Noted Date Resolved Date Benign paroxysmal positional vertigo 09/28/2021 02/03/2022 Dizziness and giddiness 09/28/2021 02/04/20 22 Strain of tendon of right rotator cuff 02/03/2022 Weakness 09/29/2020 02/03/2022 Punctate keratitis, bilateral 06/22/2019 Pseudophakia of both eyes 06/22/20192021 Primary open angle glaucoma (POAG) of left eye, mild stage 01/09/2019 04/27/2022 Primary open angle glaucoma (POAG) of right eye, severe stage 09/19/2018 04/27/2022 Vitreous hemorrhage 04/19/2018 04/27/2022 Overview: Added automatically from request for surgery [id number] CKD (chronic kidney disease) stage 3, GFR 30-59 ml/min 05/26/2017 10/04/2019 Type 2 DM with CKD stage 3 and hypertension 03/2809/17/2020 Type 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, uncontrolled(250.62) 07/23/200902/25 Ulcer of other part of foot 06/30/200902/25 Dermatophytosis of nail 04/22/2009 03/09/20 11 Acute pain of right shoulder 09/25/200806/2021 Overview: Right. Other specified gastritis without mention of hem orrhage 09/18/2008 07/07/2015 Hypertrophy of prostate with out urinary obstruction and other lower urinary tract symptoms (LUTS) 09/18/2008 09/08/2011 Background diabetic retinopathy(362.01) 09/19/19 09 06/30/2015 Erectile dysfunction associa violet with type 2 diabetes mellitus 07/09/2008 04/27/2022 Polyneuropathy in diabetes 07/27/200504/27 Type II or unspecified type diabetes mellitus without mention of complication, uncontrolled 07/27/2005 08/09/2008 Overview: Alb/Creat 10 in 7-08 A1C 7.9% in 7-08, 11.8% in -09 Creat 1.4 in - Asthma 07/07/2015 documented as of this encounter (statuses as of 04/28/2022) [facility] History of Past illness Narrative* Problem Noted Date Resolved Date Benign paroxysmal positional vertigo 09/28/2021 02/03/2022 Dizziness and giddiness 09/28/2021 02/04/20 22 Strain of tendon of right rotator cuff 02/03/2022 Weakness 09/29/2020 02/03/2022 Punctate keratitis, bilateral 06/22/2019 Pseudophakia of both eyes 06/22/20192021 Primary open angle glaucoma (POAG) of left eye, mild stage 01/09/2019 04/27/2022 Primary open angle glaucoma (POAG) of right eye, severe stage 09/19/2018 04/27/2022 Vitreous hemorrhage 04/19/2018 04/27/2022 Overview: Added automatically from request for surgery [id number] CKD (chronic kidney disease) stage 3, GFR 30-59 ml/min 05/26/2017 10/04/2019 Type 2 DM with CKD stage 3 and hypertension 03/2809/17/2020 Type 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, uncontrolled(250.62) 07/23/200902/25 Ulcer of other part of foot 06/30/200902/25 Dermatophytosis of nail 04/22/2009 03/09/20 11 Acute pain of right shoulder 09/25/200806/2021 Overview: Right. Other specified gastritis without mention of hem orrhage 09/18/2008 07/07/2015 Hypertrophy of prostate with out urinary obstruction and other lower urinary tract symptoms (LUTS) 09/18/2008 09/08/2011 Background diabetic retinopathy(362.01) 09/19/1906/30/2015 Erectile dysfunction associa violet with type 2 diabetes mellitus 07/09/2008 04/27/2022 Polyneuropathy in diabetes 07/27/200504/27 Type II or unspecified type diabetes mellitus without mention of complication, uncontrolled 07/27/2005 08/09/2008 Overview: Alb/Creat 10 in 7-08 A1C 7.9% in -08, 11.8% in -09 Creat 1.4 in - Asthma 07/07/2015 documented as of this encounter (statuses as of 04/29/2022) [facility] History of Past illness Narrative* Problem Noted Date Resolved Date Benign paroxysmal positional vertigo 09/28/2021 02/03/2022 Dizziness and giddiness 09/28/2021 02/04/20 22 Strain of tendon of right rotator cuff 02/03/2022 Weakness 09/29/2020 02/03/2022 Punctate keratitis, bilateral 06/22/2019 Pseudophakia of both eyes 06/22/20192021 Primary open angle glaucoma (POAG) of left eye, mild stage 01/09/2019 04/27/2022 Primary open angle glaucoma (POAG) of right eye, severe stage 09/19/2018 04/27/2022 Vitreous hemorrhage 04/19/2018 04/27/2022 Overview: Added automatically from request for surgery [id number] CKD (chronic kidney disease) stage 3, GFR 30-59 ml/min 05/26/2017 10/04/2019 Type 2 DM with CKD stage 3 and hypertension 03/2809/17/2020 Type 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, uncontrolled(250.62) 07/23/200902/25 Ulcer of other part of foot 06/30/200902/25 Dermatophytosis of nail 04/22/2009 03/09/20 11 Acute pain of right shoulder 09/25/200806/2021 Overview: Right. Other specified gastritis without mention of hem orrhage 09/18/2008 07/07/2015 Hypertrophy of prostate with out urinary obstruction and other lower urinary tract symptoms (LUTS) 09/18/2008 09/08/2011 Background diabetic retinopathy(362.01) 09/19/19 09 06/30/2015 Erectile dysfunction associa violet with type 2 diabetes mellitus 07/09/2008 04/27/2022 Polyneuropathy in diabetes 07/27/200504/27 Type II or unspecified type diabetes mellitus without mention of complication, uncontrolled 07/27/2005 08/09/2008 Overview: Alb/Creat 10 in - A1C 7.9% in 01-01, 11.8% in 07-05 Creat 1.4 in -09 Asthma 07/07/2015 documented as of this encounter (statuses as of 05/05/2022) [facility] History of Past illness Narrative* Problem Noted Date Resolved Date Benign paroxysmal positional vertigo 09/28/2021 02/03/2022 Dizziness and giddiness 09/28/2021 02/04/20 22 Strain of tendon of right rotator cuff 02/03/2022 Weakness 09/29/2020 02/03/2022 Punctate keratitis, bilateral 06/22/2019 Pseudophakia of both eyes 06/22/20192021 Primary open angle glaucoma (POAG) of left eye, mild stage 01/09/2019 04/27/2022 Primary open angle glaucoma (POAG) of right eye, severe stage 09/19/2018 04/27/2022 Vitreous hemorrhage 04/19/2018 04/27/2022 Overview: Added automatically from request for surgery [id number] CKD (chronic kidney disease) stage 3, GFR 30-59 ml/min 05/26/2017 10/04/2019 Type 2 DM with CKD stage 3 and hypertension 03/2809/17/2020 Type 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, uncontrolled(250.62) 07/23/200902/25 Ulcer of other part of foot 06/30/200902/25 Dermatophytosis of nail 04/22/2009 03/09/20 11 Acute pain of right shoulder 09/25/200806/2021 Overview: Right. Other specified gastritis without mention of hem orrhage 09/18/2008 07/07/2015 Hypertrophy of prostate with out urinary obstruction and other lower urinary tract symptoms (LUTS) 09/18/2008 09/08/2011 Background diabetic retinopathy(362.01) 09/19/19 09 06/30/2015 Erectile dysfunction associa violet with type 2 diabetes mellitus 07/09/2008 04/27/2022 Polyneuropathy in diabetes 07/27/200504/27 Type II or unspecified type diabetes mellitus without mention of complication, uncontrolled 07/27/2005 08/09/2008 Overview: Alb/Creat 10 in -08 A1C 7.9% in -, 11.8% in - Creat 1.4 in - Asthma 07/07/2015 documented as of this encounter (statuses as of 05/14/2022) [facility] History of Past illness Narrative* Problem Noted Date Resolved Date Benign paroxysmal positional vertigo 09/28/2021 02/03/2022 Dizziness and giddiness 09/28/2021 02/04/20 22 Strain of tendon of right rotator cuff 02/03/2022 Weakness 09/29/2020 02/03/2022 Punctate keratitis, bilateral 06/22/2019 Pseudophakia of both eyes 06/22/20192021 Primary open angle glaucoma (POAG) of left eye, mild stage 01/09/2019 04/27/2022 Primary open angle glaucoma (POAG) of right eye, severe stage 09/19/2018 04/27/2022 Vitreous hemorrhage 04/19/2018 04/27/2022 Overview: Added automatically from request for surgery [id number] CKD (chronic kidney disease) stage 3, GFR 30-59 ml/min 05/26/2017 10/04/2019 Type 2 DM with CKD stage 3 and hypertension 03/2809/17/2020 Type 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, uncontrolled(250.62) 07/23/200902/25 Ulcer of other part of foot 06/30/200902/25 Dermatophytosis of nail 04/22/2009 03/09/20 11 Acute pain of right shoulder 09/25/200806/2021 Overview: Right. Other specified gastritis without mention of hem orrhage 09/18/2008 07/07/2015 Hypertrophy of prostate with out urinary obstruction and other lower urinary tract symptoms (LUTS) 09/18/2008 09/08/2011 Background diabetic retinopathy(362.01) 09/19/19 09 06/30/2015 Erectile dysfunction associa violet with type 2 diabetes mellitus 07/09/2008 04/27/2022 Polyneuropathy in diabetes 07/27/200504/27 Type II or unspecified type diabetes mellitus without mention of complication, uncontrolled 07/27/2005 08/09/2008 Overview: Alb/Creat 10 in - A1C 7.9% in -, 11.8% in 07-05 Creat 1.4 in - Asthma 07/07/2015 documented as of this encounter (statuses as of 05/28/2022) [facility] History of Past illness Narrative* Problem Noted Date Resolved Date Benign paroxysmal positional vertigo 09/28/2021 02/03/2022 Dizziness and giddiness 09/28/2021 02/04/20 22 Strain of tendon of right rotator cuff 02/03/2022 Weakness 09/29/2020 02/03/2022 Punctate keratitis, bilateral 06/22/2019 Pseudophakia of both eyes 06/22/20192021 Primary open angle glaucoma (POAG) of left eye, mild stage 01/09/2019 04/27/2022 Primary open angle glaucoma (POAG) of right eye, severe stage 09/19/2018 04/27/2022 Vitreous hemorrhage 04/19/2018 04/27/2022 Overview: Added automatically from request for surgery [id number] CKD (chronic kidney disease) stage 3, GFR 30-59 ml/min 05/26/2017 10/04/2019 Type 2 DM with CKD stage 3 and hypertension 03/2809/17/2020 Type 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, uncontrolled(250.62) 07/23/200902/25 Ulcer of other part of foot 06/30/200902/25 Dermatophytosis of nail 04/22/2009 03/09/20 11 Acute pain of right shoulder 09/25/200806/2021 Overview: Right. Other specified gastritis without mention of hem orrhage 09/18/2008 07/07/2015 Hypertrophy of prostate with out urinary obstruction and other lower urinary tract symptoms (LUTS) 09/18/2008 09/08/2011 Background diabetic retinopathy(362.01) 09/19/19 09 06/30/2015 Erectile dysfunction associa violet with type 2 diabetes mellitus 07/09/2008 04/27/2022 Polyneuropathy in diabetes 07/27/200504/27 Type II or unspecified type diabetes mellitus without mention of complication, uncontrolled 07/27/2005 08/09/2008 Overview: Alb/Creat 10 in 01-01 A1C 7.9% in 01-01, 11.8% in 07-05 Creat 1.4 in 07-05 Asthma 07/07/2015 documented as of this encounter (statuses as of 06/01/2022) [facility] History of Past illness Narrative* Problem Noted Date Resolved Date Benign paroxysmal positional vertigo 09/28/2021 02/03/2022 Dizziness and giddiness 09/28/2021 02/04/20 22 Strain of tendon of right rotator cuff 02/03/2022 Weakness 09/29/2020 02/03/2022 Punctate keratitis, bilateral 06/22/2019 Pseudophakia of both eyes 06/22/20192021 Primary open angle glaucoma (POAG) of left eye, mild stage 01/09/2019 04/27/2022 Primary open angle glaucoma (POAG) of right eye, severe stage 09/19/2018 04/27/2022 Vitreous hemorrhage 04/19/2018 04/27/2022 Overview: Added automatically from request for surgery [id number] CKD (chronic kidney disease) stage 3, GFR 30-59 ml/min 05/26/2017 10/04/2019 Type 2 DM with CKD stage 3 and hypertension 03/2809/17/2020 Type 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, uncontrolled(250.62) 07/23/200902/25 Ulcer of other part of foot 06/30/200902/25 Dermatophytosis of nail 04/22/2009 03/09/20 11 Acute pain of right shoulder 09/25/200806/2021 Overview: Right. Other specified gastritis without mention of hem orrhage 09/18/2008 07/07/2015 Hypertrophy of prostate with out urinary obstruction and other lower urinary tract symptoms (LUTS) 09/18/2008 09/08/2011 Background diabetic retinopathy(362.01) 09/19/19 09 06/30/2015 Erectile dysfunction associa violet with type 2 diabetes mellitus 07/09/2008 04/27/2022 Polyneuropathy in diabetes 07/27/200504/27 Type II or unspecified type diabetes mellitus without mention of complication, uncontrolled 07/27/2005 08/09/2008 Overview: Alb/Creat 10 in 01-01 A1C 7.9% in 01-01, 11.8% in 07-05 Creat 1.4 in 1-09 Asthma 07/07/2015 documented as of this encounter (statuses as of 06/16/2022) [facility] History of Past illness Narrative* Problem Noted Date Resolved Date Benign paroxysmal positional vertigo 09/28/2021 02/03/2022 Dizziness and giddiness 09/28/2021 02/04/20 22 Strain of tendon of right rotator cuff 02/03/2022 Weakness 09/29/2020 02/03/2022 Punctate keratitis, bilateral 06/22/2019 Pseudophakia of both eyes 06/22/20192021 Primary open angle glaucoma (POAG) of left eye, mild stage 01/09/2019 04/27/2022 Primary open angle glaucoma (POAG) of right eye, severe stage 09/19/2018 04/27/2022 Vitreous hemorrhage 04/19/2018 04/27/2022 Overview: Added automatically from request for surgery [id number] CKD (chronic kidney disease) stage 3, GFR 30-59 ml/min 05/26/2017 10/04/2019 Type 2 DM with CKD stage 3 and hypertension 03/2809/17/2020 Type 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, uncontrolled(250.62) 07/23/200902/25 Ulcer of other part of foot 06/30/200902/25 Dermatophytosis of nail 04/22/2009 03/09/20 11 Acute pain of right shoulder 09/25/200806/2021 Overview: Right. Other specified gastritis without mention of hem orrhage 09/18/2008 07/07/2015 Hypertrophy of prostate with out urinary obstruction and other lower urinary tract symptoms (LUTS) 09/18/2008 09/08/2011 Background diabetic retinopathy(362.01) 09/19/19 09 06/30/2015 Erectile dysfunction associa violet with type 2 diabetes mellitus 07/09/2008 04/27/2022 Polyneuropathy in diabetes 07/27/200504/27 Type II or unspecified type diabetes mellitus without mention of complication, uncontrolled 07/27/2005 08/09/2008 Overview: Alb/Creat 10 in - A1C 7.9% in -, 11.8% in - Creat 1.4 in - Asthma 07/07/2015 documented as of this encounter (statuses as of 06/30/2022) [facility] History of Past illness Narrative* Problem Noted Date Resolved Date Benign paroxysmal positional vertigo 09/28/2021 02/03/2022 Dizziness and giddiness 09/28/2021 02/04/20 22 Strain of tendon of right rotator cuff 02/03/2022 Weakness 09/29/2020 02/03/2022 Punctate keratitis, bilateral 06/22/2019 Pseudophakia of both eyes 06/22/20192021 Primary open angle glaucoma (POAG) of left eye, mild stage 01/09/2019 04/27/2022 Primary open angle glaucoma (POAG) of right eye, severe stage 09/19/2018 04/27/2022 Vitreous hemorrhage 04/19/2018 04/27/2022 Overview: Added automatically from request for surgery [id number] CKD (chronic kidney disease) stage 3, GFR 30-59 ml/min 05/26/2017 10/04/2019 Type 2 DM with CKD stage 3 and hypertension 03/2809/17/2020 Type 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, uncontrolled(250.62) 07/23/200902/25 Ulcer of other part of foot 06/30/200902/25 Dermatophytosis of nail 04/22/2009 03/09/20 11 Acute pain of right shoulder 09/25/200806/2021 Overview: Right. Other specified gastritis without mention of hem orrhage 09/18/2008 07/07/2015 Hypertrophy of prostate with out urinary obstruction and other lower urinary tract symptoms (LUTS) 09/18/2008 09/08/2011 Background diabetic retinopathy(362.01) 09/19/19 09 06/30/2015 Erectile dysfunction associa violet with type 2 diabetes mellitus 07/09/2008 04/27/2022 Polyneuropathy in diabetes 07/27/200504/27 Type II or unspecified type diabetes mellitus without mention of complication, uncontrolled 07/27/2005 08/09/2008 Overview: Alb/Creat 10 in 7-08 A1C 7.9% in 7-08, 11.8% in -09 Creat 1.4 in -09 Asthma 07/07/2015 documented as of this encounter (statuses as of 07/01/2022) [facility] History of Past illness Narrative* Problem Noted Date Resolved Date Benign paroxysmal positional vertigo 09/28/2021 02/03/2022 Dizziness and giddiness 09/28/2021 02/04/20 22 Strain of tendon of right rotator cuff 02/03/2022 Weakness 09/29/2020 02/03/2022 Punctate keratitis, bilateral 06/22/2019 Pseudophakia of both eyes 06/22/20192021 Primary open angle glaucoma (POAG) of left eye, mild stage 01/09/2019 04/27/2022 Primary open angle glaucoma (POAG) of right eye, severe stage 09/19/2018 04/27/2022 Vitreous hemorrhage 04/19/2018 04/27/2022 Overview: Added automatically from request for surgery [id number] CKD (chronic kidney disease) stage 3, GFR 30-59 ml/min 05/26/2017 10/04/2019 Type 2 DM with CKD stage 3 and hypertension 03/2809/17/2020 Type 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, uncontrolled(250.62) 07/23/200902/25 Ulcer of other part of foot 06/30/200902/25 Dermatophytosis of nail 04/22/2009 03/09/20 11 Acute pain of right shoulder 09/25/200806/2021 Overview: Right. Other specified gastritis without mention of hem orrhage 09/18/2008 07/07/2015 Hypertrophy of prostate with out urinary obstruction and other lower urinary tract symptoms (LUTS) 09/18/2008 09/08/2011 Background diabetic retinopathy(362.01) 09/19/19 09 06/30/2015 Erectile dysfunction associa violet with type 2 diabetes mellitus 07/09/2008 04/27/2022 Polyneuropathy in diabetes 07/27/200504/27 Type II or unspecified type diabetes mellitus without mention of complication, uncontrolled 07/27/2005 08/09/2008 Overview: Alb/Creat 10 in - A1C 7.9% in 01-01, 11.8% in 07-05 Creat 1.4 in - Asthma 07/07/2015 documented as of this encounter (statuses as of 07/22/2022) [facility]04-04-2022 History of Past illness Narrative* Problem Noted Date Resolved Date Benign paroxysmal positional vertigo 09/28/2021 02/03/2022 Dizziness and giddiness 09/28/2021 02/04/20 22 Strain of tendon of right rotator cuff 02/03/2022 Weakness 09/29/2020 02/03/2022 Punctate keratitis, bilateral 06/22/2019 Pseudophakia of both eyes 06/22/20192021 Primary open angle glaucoma (POAG) of left eye, mild stage 01/09/2019 04/27/2022 Primary open angle glaucoma (POAG) of right eye, severe stage 09/19/2018 04/27/2022 Vitreous hemorrhage 04/19/2018 04/27/2022 Overview: Added automatically from request for surgery [id number] CKD (chronic kidney disease) stage 3, GFR 30-59 ml/min 05/26/2017 10/04/2019 Type 2 DM with CKD stage 3 and hypertension 03/2809/17/2020 Type 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, uncontrolled(250.62) 07/23/200902/25 Ulcer of other part of foot 06/30/200902/25 Dermatophytosis of nail 04/22/2009 03/09/20 11 Acute pain of right shoulder 09/25/200806/2021 Overview: Right. Other specified gastritis without mention of hem orrhage 09/18/2008 07/07/2015 Hypertrophy of prostate with out urinary obstruction and other lower urinary tract symptoms (LUTS) 09/18/2008 09/08/2011 Background diabetic retinopathy(362.01) 09/19/19 09 06/30/2015 Erectile dysfunction associa violet with type 2 diabetes mellitus 07/09/2008 04/27/2022 Polyneuropathy in diabetes 07/27/200504/27 Type II or unspecified type diabetes mellitus without mention of complication, uncontrolled 07/27/2005 08/09/2008 Overview: Alb/Creat 10 in 01-01 A1C 7.9% in 01-01, 11.8% in 07-05 Creat 1.4 in 07-05 Asthma 07/07/2015 documented as of this encounter (statuses as of 07/23/2022) [facility] History of Past illness Narrative* Problem Noted Date Resolved Date Benign paroxysmal positional vertigo 09/28/2021 02/03/2022 Dizziness and giddiness 09/28/2021 02/04/20 22 Strain of tendon of right rotator cuff 02/03/2022 Weakness 09/29/2020 02/03/2022 Punctate keratitis, bilateral 06/22/2019 Pseudophakia of both eyes 06/22/20192021 Primary open angle glaucoma (POAG) of left eye, mild stage 01/09/2019 04/27/2022 Primary open angle glaucoma (POAG) of right eye, severe stage 09/19/2018 04/27/2022 Vitreous hemorrhage 04/19/2018 04/27/2022 Overview: Added automatically from request for surgery [id number] CKD (chronic kidney disease) stage 3, GFR 30-59 ml/min 05/26/2017 10/04/2019 Type 2 DM with CKD stage 3 and hypertension 03/2809/17/2020 Type 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, uncontrolled(250.62) 07/23/200902/25 Ulcer of other part of foot 06/30/200902/25 Dermatophytosis of nail 04/22/2009 03/09/20 11 Acute pain of right shoulder 09/25/200806/2021 Overview: Right. Other specified gastritis without mention of hem orrhage 09/18/2008 07/07/2015 Hypertrophy of prostate with out urinary obstruction and other lower urinary tract symptoms (LUTS) 09/18/2008 09/08/2011 Background diabetic retinopathy(362.01) 09/19/19 09 06/30/2015 Erectile dysfunction associa violet with type 2 diabetes mellitus 07/09/2008 04/27/2022 Polyneuropathy in diabetes 07/27/200504/27 Type II or unspecified type diabetes mellitus without mention of complication, uncontrolled 07/27/2005 08/09/2008 Overview: Alb/Creat 10 in 7-08 A1C 7.9% in 7-08, 11.8% in 1-09 Creat 1.4 in -09 Asthma 07/07/2015 documented as of this encounter (statuses as of 08/02/2022) [facility] History of Past illness Narrative* Problem Noted Date Resolved Date Benign paroxysmal positional vertigo 09/28/2021 02/03/2022 Dizziness and giddiness 09/28/2021 02/04/20 22 Strain of tendon of right rotator cuff 02/03/2022 Weakness 09/29/2020 02/03/2022 Punctate keratitis, bilateral 06/22/2019 Pseudophakia of both eyes 06/22/20192021 Primary open angle glaucoma (POAG) of left eye, mild stage 01/09/2019 04/27/2022 Primary open angle glaucoma (POAG) of right eye, severe stage 09/19/2018 04/27/2022 Vitreous hemorrhage 04/19/2018 04/27/2022 Overview: Added automatically from request for surgery [id number] CKD (chronic kidney disease) stage 3, GFR 30-59 ml/min 05/26/2017 10/04/2019 Type 2 DM with CKD stage 3 and hypertension 03/2809/17/2020 Type 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, uncontrolled(250.62) 07/23/200902/25 Ulcer of other part of foot 06/30/200902/25 Dermatophytosis of nail 04/22/2009 03/09/20 11 Acute pain of right shoulder 09/25/200806/2021 Overview: Right. Other specified gastritis without mention of hem orrhage 09/18/2008 07/07/2015 Hypertrophy of prostate with out urinary obstruction and other lower urinary tract symptoms (LUTS) 09/18/2008 09/08/2011 Background diabetic retinopathy(362.01) 09/19/19 09 06/30/2015 Erectile dysfunction associa violet with type 2 diabetes mellitus 07/09/2008 04/27/2022 Polyneuropathy in diabetes 07/27/200504/27 Type II or unspecified type diabetes mellitus without mention of complication, uncontrolled 07/27/2005 08/09/2008 Overview: Alb/Creat 10 in 7-08 A1C 7.9% in 7-08, 11.8% in -09 Creat 1.4 in - Asthma 07/07/2015 documented as of this encounter (statuses as of 08/04/2022) [facility] History of Past illness Narrative* Problem Noted Date Resolved Date Benign paroxysmal positional vertigo 09/28/2021 02/03/2022 Dizziness and giddiness 09/28/2021 02/04/20 22 Strain of tendon of right rotator cuff 02/03/2022 Weakness 09/29/2020 02/03/2022 Punctate keratitis, bilateral 06/22/2019 Pseudophakia of both eyes 06/22/20192021 Primary open angle glaucoma (POAG) of left eye, mild stage 01/09/2019 04/27/2022 Primary open angle glaucoma (POAG) of right eye, severe stage 09/19/2018 04/27/2022 Vitreous hemorrhage 04/19/2018 04/27/2022 Overview: Added automatically from request for surgery [id number] CKD (chronic kidney disease) stage 3, GFR 30-59 ml/min 05/26/2017 10/04/2019 Type 2 DM with CKD stage 3 and hypertension 03/2809/17/2020 Type 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, uncontrolled(250.62) 07/23/200902/25 Ulcer of other part of foot 06/30/200902/25 Dermatophytosis of nail 04/22/2009 03/09/20 11 Acute pain of right shoulder 09/25/200806/2021 Overview: Right. Other specified gastritis without mention of hem orrhage 09/18/2008 07/07/2015 Hypertrophy of prostate with out urinary obstruction and other lower urinary tract symptoms (LUTS) 09/18/2008 09/08/2011 Background diabetic retinopathy(362.01) 09/19/19 09 06/30/2015 Erectile dysfunction associa violet with type 2 diabetes mellitus 07/09/2008 04/27/2022 Polyneuropathy in diabetes 07/27/200504/27 Type II or unspecified type diabetes mellitus without mention of complication, uncontrolled 07/27/2005 08/09/2008 Overview: Alb/Creat 10 in - A1C 7.9% in 01-01, 11.8% in 07-05 Creat 1.4 in - Asthma 07/07/2015 documented as of this encounter (statuses as of 08/23/2022) [facility] History of Past illness Narrative* Problem Noted Date Resolved Date Benign paroxysmal positional vertigo 09/28/2021 02/03/2022 Dizziness and giddiness 09/28/2021 02/04/20 22 Strain of tendon of right rotator cuff 02/03/2022 Weakness 09/29/2020 02/03/2022 Punctate keratitis, bilateral 06/22/2019 Pseudophakia of both eyes 06/22/20192021 Primary open angle glaucoma (POAG) of left eye, mild stage 01/09/2019 04/27/2022 Primary open angle glaucoma (POAG) of right eye, severe stage 09/19/2018 04/27/2022 Vitreous hemorrhage 04/19/2018 04/27/2022 Overview: Added automatically from request for surgery [id number] CKD (chronic kidney disease) stage 3, GFR 30-59 ml/min 05/26/2017 10/04/2019 Type 2 DM with CKD stage 3 and hypertension 03/2809/17/2020 Type 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, uncontrolled(250.62) 07/23/200902/25 Ulcer of other part of foot 06/30/200902/25 Dermatophytosis of nail 04/22/2009 03/09/20 11 Acute pain of right shoulder 09/25/200806/2021 Overview: Right. Other specified gastritis without mention of hem orrhage 09/18/2008 07/07/2015 Hypertrophy of prostate with out urinary obstruction and other lower urinary tract symptoms (LUTS) 09/18/2008 09/08/2011 Background diabetic retinopathy(362.01) 09/19/19 09 06/30/2015 Erectile dysfunction associa violet with type 2 diabetes mellitus 07/09/2008 04/27/2022 Polyneuropathy in diabetes 07/27/200504/27 Type II or unspecified type diabetes mellitus without mention of complication, uncontrolled 07/27/2005 08/09/2008 Overview: Alb/Creat 10 in 7-08 A1C 7.9% in 7-08, 11.8% in 1-09 Creat 1.4 in -09 Asthma 07/07/2015 documented as of this encounter (statuses as of 08/24/2022) [facility] History of Past illness Narrative* Problem Noted Date Resolved Date Benign paroxysmal positional vertigo 09/28/2021 02/03/2022 Dizziness and giddiness 09/28/2021 02/04/20 22 Strain of tendon of right rotator cuff 02/03/2022 Weakness 09/29/2020 02/03/2022 Punctate keratitis, bilateral 06/22/2019 Pseudophakia of both eyes 06/22/20192021 Primary open angle glaucoma (POAG) of left eye, mild stage 01/09/2019 04/27/2022 Primary open angle glaucoma (POAG) of right eye, severe stage 09/19/2018 04/27/2022 Vitreous hemorrhage 04/19/2018 04/27/2022 Overview: Added automatically from request for surgery [id number] CKD (chronic kidney disease) stage 3, GFR 30-59 ml/min 05/26/2017 10/04/2019 Type 2 DM with CKD stage 3 and hypertension 03/2809/17/2020 Type 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, uncontrolled(250.62) 07/23/200902/25 Ulcer of other part of foot 06/30/200902/25 Dermatophytosis of nail 04/22/2009 03/09/20 11 Acute pain of right shoulder 09/25/200806/2021 Overview: Right. Other specified gastritis without mention of hem orrhage 09/18/2008 07/07/2015 Hypertrophy of prostate with out urinary obstruction and other lower urinary tract symptoms (LUTS) 09/18/2008 09/08/2011 Background diabetic retinopathy(362.01) 09/19/19 09 06/30/2015 Erectile dysfunction associa violet with type 2 diabetes mellitus 07/09/2008 04/27/2022 Polyneuropathy in diabetes 07/27/200504/27 Type II or unspecified type diabetes mellitus without mention of complication, uncontrolled 07/27/2005 08/09/2008 Overview: Alb/Creat 10 in -08 A1C 7.9% in -, 11.8% in - Creat 1.4 in - Asthma 07/07/2015 documented as of this encounter (statuses as of 08/26/2022) [facility] History of Past illness Narrative* Problem Noted Date Resolved Date Benign paroxysmal positional vertigo 09/28/2021 02/03/2022 Dizziness and giddiness 09/28/2021 02/04/20 22 Strain of tendon of right rotator cuff 02/03/2022 Weakness 09/29/2020 02/03/2022 Punctate keratitis, bilateral 06/22/2019 Pseudophakia of both eyes 06/22/20192021 Primary open angle glaucoma (POAG) of left eye, mild stage 01/09/2019 04/27/2022 Primary open angle glaucoma (POAG) of right eye, severe stage 09/19/2018 04/27/2022 Vitreous hemorrhage 04/19/2018 04/27/2022 Overview: Added automatically from request for surgery [id number] CKD (chronic kidney disease) stage 3, GFR 30-59 ml/min 05/26/2017 10/04/2019 Type 2 DM with CKD stage 3 and hypertension 03/2809/17/2020 Type 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, uncontrolled(250.62) 07/23/200902/25 Ulcer of other part of foot 06/30/200902/25 Dermatophytosis of nail 04/22/2009 03/09/20 11 Acute pain of right shoulder 09/25/200806/2021 Overview: Right. Other specified gastritis without mention of hem orrhage 09/18/2008 07/07/2015 Hypertrophy of prostate with out urinary obstruction and other lower urinary tract symptoms (LUTS) 09/18/2008 09/08/2011 Background diabetic retinopathy(362.01) 09/19/19 09 06/30/2015 Erectile dysfunction associa violet with type 2 diabetes mellitus 07/09/2008 04/27/2022 Polyneuropathy in diabetes 07/27/200504/27 Type II or unspecified type diabetes mellitus without mention of complication, uncontrolled 07/27/2005 08/09/2008 Overview: Alb/Creat 10 in 01-01 A1C 7.9% in 01-01, 11.8% in 07-05 Creat 1.4 in 07-05 Asthma 07/07/2015 documented as of this encounter (statuses as of 09/14/2022) [facility] History of Past illness Narrative* Problem Noted Date Resolved Date Benign paroxysmal positional vertigo 09/28/2021 02/03/2022 Dizziness and giddiness 09/28/2021 02/04/20 22 Strain of tendon of right rotator cuff 02/03/2022 Weakness 09/29/2020 02/03/2022 Punctate keratitis, bilateral 06/22/2019 Pseudophakia of both eyes 06/22/20192021 Primary open angle glaucoma (POAG) of left eye, mild stage 01/09/2019 04/27/2022 Primary open angle glaucoma (POAG) of right eye, severe stage 09/19/2018 04/27/2022 Vitreous hemorrhage 04/19/2018 04/27/2022 Overview: Added automatically from request for surgery [id number] CKD (chronic kidney disease) stage 3, GFR 30-59 ml/min 05/26/2017 10/04/2019 Type 2 DM with CKD stage 3 and hypertension 03/2809/17/2020 Type 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, uncontrolled(250.62) 07/23/200902/25 Ulcer of other part of foot 06/30/200902/25 Dermatophytosis of nail 04/22/2009 03/09/20 11 Acute pain of right shoulder 09/25/200806/2021 Overview: Right. Other specified gastritis without mention of hem orrhage 09/18/2008 07/07/2015 Hypertrophy of prostate with out urinary obstruction and other lower urinary tract symptoms (LUTS) 09/18/2008 09/08/2011 Background diabetic retinopathy(362.01) 09/19/19 09 06/30/2015 Erectile dysfunction associa violet with type 2 diabetes mellitus 07/09/2008 04/27/2022 Polyneuropathy in diabetes 07/27/200504/27 Type II or unspecified type diabetes mellitus without mention of complication, uncontrolled 07/27/2005 08/09/2008 Overview: Alb/Creat 10 in 01-01 A1C 7.9% in 01-01, 11.8% in 07-05 Creat 1.4 in 1-09 Asthma 07/07/2015 documented as of this encounter (statuses as of 09/21/2022) [facility] History of Past illness Narrative* Problem Noted Date Resolved Date Benign paroxysmal positional vertigo 09/28/2021 02/03/2022 Dizziness and giddiness 09/28/2021 02/04/20 22 Strain of tendon of right rotator cuff 02/03/2022 Weakness 09/29/2020 02/03/2022 Punctate keratitis, bilateral 06/22/2019 Pseudophakia of both eyes 06/22/20192021 Primary open angle glaucoma (POAG) of left eye, mild stage 01/09/2019 04/27/2022 Primary open angle glaucoma (POAG) of right eye, severe stage 09/19/2018 04/27/2022 Vitreous hemorrhage 04/19/2018 04/27/2022 Overview: Added automatically from request for surgery [id number] CKD (chronic kidney disease) stage 3, GFR 30-59 ml/min 05/26/2017 10/04/2019 Type 2 DM with CKD stage 3 and hypertension 03/2809/17/2020 Type 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, uncontrolled(250.62) 07/23/200902/25 Ulcer of other part of foot 06/30/200902/25 Dermatophytosis of nail 04/22/2009 03/09/20 11 Acute pain of right shoulder 09/25/200806/2021 Overview: Right. Other specified gastritis without mention of hem orrhage 09/18/2008 07/07/2015 Hypertrophy of prostate with out urinary obstruction and other lower urinary tract symptoms (LUTS) 09/18/2008 09/08/2011 Background diabetic retinopathy(362.01) 09/19/19 09 06/30/2015 Erectile dysfunction associa violet with type 2 diabetes mellitus 07/09/2008 04/27/2022 Polyneuropathy in diabetes 07/27/200504/27 Type II or unspecified type diabetes mellitus without mention of complication, uncontrolled 07/27/2005 08/09/2008 Overview: Alb/Creat 10 in 7-08 A1C 7.9% in 7-08, 11.8% in - Creat 1.4 in - Asthma 07/07/2015 documented as of this encounter (statuses as of 10/07/2022) [facility] History of Past illness Narrative* Problem Noted Date Resolved Date Benign paroxysmal positional vertigo 09/28/2021 02/03/2022 Dizziness and giddiness 09/28/2021 02/04/20 22 Strain of tendon of right rotator cuff 02/03/2022 Weakness 09/29/2020 02/03/2022 Punctate keratitis, bilateral 06/22/2019 Pseudophakia of both eyes 06/22/20192021 Primary open angle glaucoma (POAG) of left eye, mild stage 01/09/2019 04/27/2022 Primary open angle glaucoma (POAG) of right eye, severe stage 09/19/2018 04/27/2022 Vitreous hemorrhage 04/19/2018 04/27/2022 Overview: Added automatically from request for surgery [id number] CKD (chronic kidney disease) stage 3, GFR 30-59 ml/min 05/26/2017 10/04/2019 Type 2 DM with CKD stage 3 and hypertension 03/2809/17/2020 Type 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, uncontrolled(250.62) 07/23/200902/25 Ulcer of other part of foot 06/30/200902/25 Dermatophytosis of nail 04/22/2009 03/09/20 11 Acute pain of right shoulder 09/25/200806/2021 Overview: Right. Other specified gastritis without mention of hem orrhage 09/18/2008 07/07/2015 Hypertrophy of prostate with out urinary obstruction and other lower urinary tract symptoms (LUTS) 09/18/2008 09/08/2011 Background diabetic retinopathy(362.01) 09/19/19 09 06/30/2015 Erectile dysfunction associa violet with type 2 diabetes mellitus 07/09/2008 04/27/2022 Polyneuropathy in diabetes 07/27/200504/27 Type II or unspecified type diabetes mellitus without mention of complication, uncontrolled 07/27/2005 08/09/2008 Overview: Alb/Creat 10 in 7-08 A1C 7.9% in 01-01, 11.8% in 07-05 Creat 1.4 in -09 Asthma 07/07/2015 documented as of this encounter (statuses as of 10/18/2022) [facility] Miscellaneous Notes* Telephone Encounter - Roz Segovia LPN - 09/24/2021 2:52 PM EDT PA already completed and pharmacy notified. * Telephone Encounter - Alia Garza Pss - 09/24/2021 2:07 PM EDT Patient returned call. Message was given as stated below. He said he would like a PA to be completed to see if insurance will cover this. * Telephone Encounter - Roz Segovia LPN - 09/24/2021 1:36 PM EDT Prior authorization approved Authorized from August 25, 2021 to September 24, 2022 Pharmacy notified. * Telephone Encounter - Roz Segovia LPN - 09/24/2021 1:25 PM EDT rec'd PA for promethazine HCL. Called the pharmacy pt has not picked this up yet. They have ran it through a discount card the rx would cost 9.53$ Or can complete PA to see if insurance will cover this. Message left for pt to katelynn call to a nurse. PA completed will wait for response. [facility] Miscellaneous Notes* Telephone Encounter - Raquel Sampson MA - 09/23/2021 3:37 PM EDT Spoke to pt and advised as noted below, he expressed understanding. * Telephone Encounter - Raquel Sampson MA - 09/23/2021 3:07 PM EDT Unable to leave a message at this time, will try later. * Telephone Encounter - Raquel Sampson MA - 09/23/2021 3:07 PM EDT Hi Creatinine has improved a bit actually. He is good to wait until the scheduled appt based on the labs. Message text * Telephone Encounter - Raquel Sampson MA - 09/23/2021 12:52 PM EDT Message routed, please advise. * Telephone Encounter - Radha Polanco - 09/23/2021 12:45 PM EDT Patient calling to ask Dr. Krishnan to review his recent blood work results. Patient is not scheduledto see Dr. Krishnan until 10/14 however he would like to know if Dr. Krishnan feels he needs to be seen sooner due to his lab results? Patient can be reached at [phone]. Thank you [facility] Miscellaneous Notes* Telephone Encounter - Bala Penny Ma - 09/23/2021 12:22 PM EDT Patient notified, verbalized understanding. Bala Penny Ma * Telephone Encounter - America Mcginnis APRN.CNP - 09/23/2021 10:33 AM EDT Please let the patient know his potassium was normal. Kidney function slightly worse, stress importance of hydration and follow-up with kidney specialist as advised. Cholesterol levels optimal. America Mcginnis APRN.CNP documented in [facility]The [facility] History of Present illness Narrative* America Mcginnis APRN.CNP - 09/22/2021 8:20 AM EDT CC: Patient presents with: ED Follow-up: [facility] - dehydration , increased heart rate , vertigo HPI Esvin West Sr. is a 76 year old male who presents today for above. follow-up. Facility: [facility] Date of visit: 09/17/21 Reason for visit: palpitations, heart racing Hospital course: EKG, labs including troponin normal except potassium was elevated. Treated with IVfluids, symptoms resolved Current symptoms: patient states heart started racing when he became extremely dizzy. Vertigo described as room spinning, better when he laid down with eyes closed. Triggered by position changes, forexample one episode started while he was tearing down wall paper. He has a history of vertigo, imaging including MRI and carotid ultrasound were normal. He was also referred previously to ENT for tinnitus and vertigo. He takes Antivert as needed which helps a little. No new or worsening vertigo symptoms. No further episodes of palpitations, tachycardia, vertigo or nausea since then. REVIEW OF SYSTEMS See HPI PAST MEDICAL HISTORY Diagnosis Date Anemia in stage 3 chronic kidney disease (HCC) Background diabetic retinopathy(362.01) 09/18/2008 [facility] eye. Cataract of left eye Chronic kidney disease, unspecified CKD (chronic kidney disease) stage 3, GFR 30-59 ml/min ([facility]) 05/26/2017 Coloboma of iris OD Depressive disorder, not elsewhere classified Erectile dysfunction associated with type 2 diabetes mellitus (HCC) 07/09/2008 Esophageal reflux Essential hypertension, benign Hyperplasia of prostate Macular edema dme od Other and unspecified hyperlipidemia Other specified anemias Other specified gastritis without mention of hemorrhage 09/18/2008 Personal history of colonic polyps 08/04/2016 Primary open angle glaucoma OU Proliferative diabetic retinopathy(362.02) Pseudophakia of right eye Shoulder pain 09/25/2008 Right. Tubular adenoma of colon 08/10/2016 Type II or unspecified type diabetes mellitus with ophthalmic manifestations, uncontrolled(250.52) 09/18/2008 [facility] Unspecified asthma(493.90) Vitreous hemorrhage of left eye (HCC) PAST SURGICAL HISTORY Procedure Laterality Date AVASTIN (BEVACIZUMAB) 1.25MG INTRAVITREAL INJECTION OD (RIGHT EYE) Right 04/19/2018 LAST COLONOSCOPY FLX DX W/COLLJ SPEC WHEN PFRMD 05/27/2003 Colonoscopy COLONOSCOPY GEN ANES 08/04/2016 COLONOSCOPY W/BIOPSY SINGLE/MULTIPLE 07/25/2013 Repeat due 2017 COLSC FLX W/RMVL OF TUMOR POLYP LESION SNARE TQ 08/04/2016 Repeat 07/2019 ESOPHAGOGASTRODUODENOSCOPY TRANSORAL DIAGNOSTIC 05/27/2003 EGD EYE SURGERY HX Right 05/02/2018 Pars plana vitrectomy, membrane peel, endolaser, and air fluid exchange right eye. LAPAROSCOPY SURG CHOLECYSTECTOMY 03/2003 Cholecystectomy, lap OPEN REPAIR OF ROTATOR CUFF ACUTE 04/24/2009 Rotator cuff repair, Right PANRETINAL PHOTOCOAGULATION (PRP) OD (RIGHT EYE) Right 08/29/2014 LAST ; PRP (Panretinal Photocoagulation) OD PANRETINAL PHOTOCOAGULATION (PRP) OS (LEFT EYE) Left 07/12/2013 #2 ; PRP (Panretinal Photocoagulation) OS PROSTATECTOMY SUPRAPUBIC SUBTOTAL 06/23/2011 for BPH VITRECTOMY MECHANICAL PARS PLANA Left 11/16/2016 PPV/MP/EL/AFX OS XCAPSL CTRC RMVL INSJ IO LENS PROSTH W/O ECP 02/07/2007 Cataract Removal right XCAPSL CTRC RMVL INSJ IO LENS PROSTH W/O ECP Left 11/16/2016 Cataract Extraction with PC IOL OS ALLERGIES Cortisone and Zestril [Lisinopril] MEDICATIONS promethazine (PHENERGAN) 25 mg tablet Take 1 tablet by mouth every 6 hours as needed. furosemide (LASIX) 40 mg tablet Take 1 tablet by mouth once daily. meclizine (ANTIVERT) 25 mg tab Take 1 tablet by mouth three times daily as needed. mupirocin (BACTROBAN) 2 % ointment Apply 1 application to affected area three times daily. latanoprost (XALATAN) 0.005 % ophthalmic solution INSTILL 1 DROP IN BOTH EYES DAILY AT BEDTIME Lancets lancets Test blood sugar(s) 3 times daily. Dx: Type 2 DM - Uncontrolled Insulin: Yes blood sugar diagnostic (BLOOD GLUCOSE TEST) test strip Test blood sugar(s) 3 times daily. Dx: Type 2 DM - Uncontrolled Insulin: Yes dorzolamide-timolol (COSOPT) 22.3-6.8 mg/mL ophthalmic solution Use 1 Drop in both eyes twice daily. Use at 8 AM and 4 PM losartan (COZAAR) 50 mg tablet Take 1 tablet by mouth once daily. insulin lispro (HUMALOG KWIKPEN INSULIN) 100 unit/mL Inject 4 units breakfast, 6 units lunch, 6 units dinner. Take 1/2 the dose if the sugar is less then 120 insulin glargine (LANTUS SOLOSTAR U-100 INSULIN) 100 unit/mL (3 mL) Inject subcutaneously 25 units daily in the evening. pravastatin (PRAVACHOL) 80 mg tablet Take 1 tablet by mouth once daily. For cholesterol. Insulin [place], Disposable, (1ST TIER UNIFINE PENTIPS) 31 gauge x 3/16 Use as directed 4 times a day. Dx: E11. flash glucose sensor (FREESTYLE DIANNE 14 DAY SENSOR) kit 1 Each every 2 weeks. Diagnoses: ICD10: E11.22, N18.32, Z79.4; E11.42, Z79.4. Sig: Check glucose 4 or more times per day. Patient on multiple insulin doses. gabapentin (NEURONTIN) 300 mg capsule Take 1 capsule by mouth three times daily for 180 days. NIFEdipine ER (PROCARDIA XL) 90 mg 24 hr tablet Take 1 tablet by mouth once daily. flash glucose scanning reader (FREESTYLE DIANNE 14 DAY READER) Diagnoses: ICD10: E11.22, N18.32, Z79.4; E11.42, Z79.4. Sig: Check glucose 4 or more times per day. Patient on multiple insulin doses. cholecalciferol (VITAMIN D) 1,000 unit tab tablet Take 1 tablet by mouth once daily. cyanocobalamin (VITAMIN B-12) 1,000 mcg tab Take 1 tablet by mouth once daily. aspirin(ECOTRIN LOW STRENGTH 81 MG TAB) Take one(1) tablet daily. FAMILY HISTORY Problem Relation Age of Onset Breast Cancer Mother at age 55 COPD Father Black lung Breast Cancer Sister at age 54 Diabetes Brother No Ocular Disease No Family History nothing known of Social History Tobacco Use Smoking status: Former Smoker Types: Cigars Smokeless tobacco: Never Used Tobacco comment: quit 40 + years ago Vaping Use Vaping Use: Never used Substance Use Topics Alcohol use: Yes Comment: rarely, 2-3 glasses red wine per month Drug use: No PHYSICAL EXAM BP 134/76 Pulse 98 Resp 14 Wt 86.2 kg (190 lb) SpO2 97% BMI 26.50 kg/m General Appearance: well appearing, in no acute distress, alert Lungs: Lungs clear to auscultation. No wheezing, rhonchi, rales. Heart: RRR without murmur, gallop, or rubs. No ectopy DATA REVIEWED: Outside chart from [facility] ER reviewed. ASSESSMENT/PLAN: 1. Benign paroxysmal positional vertigo, unspecified laterality - ICD9: 386.11, ICD10: H81.10 (primary diagnosis) Symptoms consistent with BPPV. No new or worsening symptoms since onset. He does have chronic tinnitus, evaluated by ENT and no mention of possible Meniere's - CONSULT TO PHYSICAL THERAPY for further evaluation and vestibular treatments 2. Hyperkalemia - ICD9: 276.7, ICD10: E87.5 Recheck - BASIC METABOLIC PNL 3. Type 2 diabetes mellitus with diabetic polyneuropathy, with long-term current use of insulin (HCC) - ICD9: 250.60, 357.2, V58.67, ICD10: E11.42, Z79.4 - ALBUMIN/CREAT RATIO RND UR today 4. Hyperlipidemia, unspecified hyperlipidemia type - ICD9: 272.4, ICD10: E78.5 - LIPID PANEL BASIC today Prescription instructions reviewed with patient as applicable. Potential red flag symptoms discussed with the patient. Reviewed appropriate action plan to take if red flag symptoms occur. Patient agreeable to treatment plan. America Mcginnis APRN.CNP [facility] Miscellaneous Notes* Telephone Encounter - Abrahamny Giordano - 09/02/2021 9:32 AM EST 11-04-2021 Colon Alves [facility] History of Past illness Narrative* Problem Noted Date Resolved Date CKD (chronic kidney disease) stage 3, GFR 30-59 ml/min 05/26/2017 10/04/2019 Type 2 DM with CKD stage 3 and hypertension 03/2809/17/2020 Type 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, uncontrolled(250.62) 07/23/200902/25 Ulcer of other part of foot 06/30/200902/25 Dermatophytosis of nail 04/22/2009 03/09/20 11 Other specified gastritis without mention of hem orrhage 09/18/2008 07/07/2015 Hypertrophy of prostate with out urinary obstruction and other lower urinary tract symptoms (LUTS) 09/18/2008 09/08/2011 Background diabetic retinopathy(362.01) 09/19/19 09 06/30/2015 Type II or unspecified type diabetes mellitus without mention of complication, uncontrolled 07/27/2005 08/09/2008 Overview: Alb/Creat 10 in 7-08 A1C 7.9% in -, 11.8% in - Creat 1.4 in - Asthma 07/07/2015 documented as of this encounter (statuses as of 09/22/2021) [facility] of Past illness Narrative* Problem Noted Date Resolved Date CKD (chronic kidney disease) stage 3, GFR 30-59 ml/min 05/26/2017 10/04/2019 Type 2 DM with CKD stage 3 and hypertension 03/2809/17/2020 Type 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, uncontrolled(250.62) 07/23/200902/25 Ulcer of other part of foot 06/30/200902/25 Dermatophytosis of nail 04/22/2009 03/09/20 11 Other specified gastritis without mention of hem orrhage 09/18/2008 07/07/2015 Hypertrophy of prostate with out urinary obstruction and other lower urinary tract symptoms (LUTS) 09/18/2008 09/08/2011 Background diabetic retinopathy(362.01) 09/19/19 09 06/30/2015 Type II or unspecified type diabetes mellitus without mention of complication, uncontrolled 07/27/2005 08/09/2008 Overview: Alb/Creat 10 in 7-08 A1C 7.9% in 7-08, 11.8% in 07-05 Creat 1.4 in - Asthma 07/07/2015 documented as of this encounter (statuses as of 09/23/2021) [facility] Past illness Narrative* Problem Noted Date Resolved Date CKD (chronic kidney disease) stage 3, GFR 30-59 ml/min 05/26/2017 10/04/2019 Type 2 DM with CKD stage 3 and hypertension 03/2809/17/2020 Type 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, uncontrolled(250.62) 07/23/200902/25 Ulcer of other part of foot 06/30/200902/25 Dermatophytosis of nail 04/22/2009 03/09/20 11 Other specified gastritis without mention of hem orrhage 09/18/2008 07/07/2015 Hypertrophy of prostate with out urinary obstruction and other lower urinary tract symptoms (LUTS) 09/18/2008 09/08/2011 Background diabetic retinopathy(362.01) 09/19/19 09 06/30/2015 Type II or unspecified type diabetes mellitus without mention of complication, uncontrolled 07/27/2005 08/09/2008 Overview: Alb/Creat 10 in 7- A1C 7.9% in -, 11.8% in 07-05 Creat 1.4 in - Asthma 07/07/2015 documented as of this encounter (statuses as of 09/24/2021) [facility] illness Narrative* Problem Noted Date Resolved Date CKD (chronic kidney disease) stage 3, GFR 30-59 ml/min 05/26/2017 10/04/2019 Type 2 DM with CKD stage 3 and hypertension 03/2809/17/2020 Type 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, uncontrolled(250.62) 07/23/200902/25 Ulcer of other part of foot 06/30/200902/25 Dermatophytosis of nail 04/22/2009 03/09/20 11 Other specified gastritis without mention of hem orrhage 09/18/2008 07/07/2015 Hypertrophy of prostate with out urinary obstruction and other lower urinary tract symptoms (LUTS) 09/18/2008 09/08/2011 Background diabetic retinopathy(362.01) 09/19/19 09 06/30/2015 Type II or unspecified type diabetes mellitus without mention of complication, uncontrolled 07/27/2005 08/09/2008 Overview: Alb/Creat 10 in 7-08 A1C 7.9% in 7-08, 11.8% in 07-05 Creat 1.4 in - Asthma 07/07/2015 documented as of this encounter (statuses as of 10/02/2021) [facility] Narrative* Problem Noted Date Resolved Date CKD (chronic kidney disease) stage 3, GFR 30-59 ml/min 05/26/2017 10/04/2019 Type 2 DM with CKD stage 3 and hypertension 03/2809/17/2020 Type 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, uncontrolled(250.62) 07/23/200902/25 Ulcer of other part of foot 06/30/200902/25 Dermatophytosis of nail 04/22/2009 03/09/20 11 Other specified gastritis without mention of hem orrhage 09/18/2008 07/07/2015 Hypertrophy of prostate with out urinary obstruction and other lower urinary tract symptoms (LUTS) 09/18/2008 09/08/2011 Background diabetic retinopathy(362.01) 09/19/19 09 06/30/2015 Type II or unspecified type diabetes mellitus without mention of complication, uncontrolled 07/27/2005 08/09/2008 Overview: Alb/Creat 10 in 7-08 A1C 7.9% in 7-08, 11.8% in 07-05 Creat 1.4 in - Asthma 07/07/2015 documented as of this encounter (statuses as of 10/03/2021) [facility] illness Narrative* Problem Noted Date Resolved Date CKD (chronic kidney disease) stage 3, GFR 30-59 ml/min 05/26/2017 10/04/2019 Type 2 DM with CKD stage 3 and hypertension 03/2809/17/2020 Type 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, uncontrolled(250.62) 07/23/200902/25 Ulcer of other part of foot 06/30/200902/25 Dermatophytosis of nail 04/22/2009 03/09/20 11 Other specified gastritis without mention of hem orrhage 09/18/2008 07/07/2015 Hypertrophy of prostate with out urinary obstruction and other lower urinary tract symptoms (LUTS) 09/18/2008 09/08/2011 Background diabetic retinopathy(362.01) 09/19/19 09 06/30/2015 Type II or unspecified type diabetes mellitus without mention of complication, uncontrolled 07/27/2005 08/09/2008 Overview: Alb/Creat 10 in 7-08 A1C 7.9% in -, 11.8% in - Creat 1.4 in - Asthma 07/07/2015 documented as of this encounter (statuses as of 10/06/2021) [facility] Narrative* Problem Noted Date Resolved Date CKD (chronic kidney disease) stage 3, GFR 30-59 ml/min 05/26/2017 10/04/2019 Type 2 DM with CKD stage 3 and hypertension 03/2809/17/2020 Type 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, uncontrolled(250.62) 07/23/200902/25 Ulcer of other part of foot 06/30/200902/25 Dermatophytosis of nail 04/22/2009 03/09/20 11 Other specified gastritis without mention of hem orrhage 09/18/2008 07/07/2015 Hypertrophy of prostate with out urinary obstruction and other lower urinary tract symptoms (LUTS) 09/18/2008 09/08/2011 Background diabetic retinopathy(362.01) 09/19/19 09 06/30/2015 Type II or unspecified type diabetes mellitus without mention of complication, uncontrolled 07/27/2005 08/09/2008 Overview: Alb/Creat 10 in 7-08 A1C 7.9% in 7-08, 11.8% in - Creat 1.4 in 1-09 Asthma 07/07/2015 documented as of this encounter (statuses as of 10/14/2021) [facility] Narrative* Problem Noted Date Resolved Date CKD (chronic kidney disease) stage 3, GFR 30-59 ml/min 05/26/2017 10/04/2019 Type 2 DM with CKD stage 3 and hypertension 03/2809/17/2020 Type 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, uncontrolled(250.62) 07/23/200902/25 Ulcer of other part of foot 06/30/200902/25 Dermatophytosis of nail 04/22/2009 03/09/20 11 Other specified gastritis without mention of hem orrhage 09/18/2008 07/07/2015 Hypertrophy of prostate with out urinary obstruction and other lower urinary tract symptoms (LUTS) 09/18/2008 09/08/2011 Background diabetic retinopathy(362.01) 09/19/19 09 06/30/2015 Type II or unspecified type diabetes mellitus without mention of complication, uncontrolled 07/27/2005 08/09/2008 Overview: Alb/Creat 10 in 7-08 A1C 7.9% in 7-08, 11.8% in - Creat 1.4 in - Asthma 07/07/2015 documented as of this encounter (statuses as of 10/14/2021) [facility] Narrative* Problem Noted Date Resolved Date CKD (chronic kidney disease) stage 3, GFR 30-59 ml/min 05/26/2017 10/04/2019 Type 2 DM with CKD stage 3 and hypertension 03/2809/17/2020 Type 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, uncontrolled(250.62) 07/23/200902/25 Ulcer of other part of foot 06/30/200902/25 Dermatophytosis of nail 04/22/2009 03/09/20 11 Other specified gastritis without mention of hem orrhage 09/18/2008 07/07/2015 Hypertrophy of prostate with out urinary obstruction and other lower urinary tract symptoms (LUTS) 09/18/2008 09/08/2011 Background diabetic retinopathy(362.01) 09/19/19 09 06/30/2015 Type II or unspecified type diabetes mellitus without mention of complication, uncontrolled 07/27/2005 08/09/2008 Overview: Alb/Creat 10 in 01-01 A1C 7.9% in -, 11.8% in 07-05 Creat 1.4 in 07-05 Asthma 07/07/2015 documented as of this encounter (statuses as of 10/15/2021) [facility] Narrative* Problem Noted Date Resolved Date CKD (chronic kidney disease) stage 3, GFR 30-59 ml/min 05/26/2017 10/04/2019 Type 2 DM with CKD stage 3 and hypertension 03/2809/17/2020 Type 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, uncontrolled(250.62) 07/23/200902/25 Ulcer of other part of foot 06/30/200902/25 Dermatophytosis of nail 04/22/2009 03/09/20 11 Other specified gastritis without mention of hem orrhage 09/18/2008 07/07/2015 Hypertrophy of prostate with out urinary obstruction and other lower urinary tract symptoms (LUTS) 09/18/2008 09/08/2011 Background diabetic retinopathy(362.01) 09/19/19 09 06/30/2015 Type II or unspecified type diabetes mellitus without mention of complication, uncontrolled 07/27/2005 08/09/2008 Overview: Alb/Creat 10 in 01-01 A1C 7.9% in 01-01, 11.8% in 07-05 Creat 1.4 in - Asthma 07/07/2015 documented as of this encounter (statuses as of 10/19/2021) [facility] Narrative* Problem Noted Date Resolved Date CKD (chronic kidney disease) stage 3, GFR 30-59 ml/min 05/26/2017 10/04/2019 Type 2 DM with CKD stage 3 and hypertension 03/2809/17/2020 Type 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, uncontrolled(250.62) 07/23/200902/25 Ulcer of other part of foot 06/30/200902/25 Dermatophytosis of nail 04/22/2009 03/09/20 11 Other specified gastritis without mention of hem orrhage 09/18/2008 07/07/2015 Hypertrophy of prostate with out urinary obstruction and other lower urinary tract symptoms (LUTS) 09/18/2008 09/08/2011 Background diabetic retinopathy(362.01) 09/19/19 09 06/30/2015 Type II or unspecified type diabetes mellitus without mention of complication, uncontrolled 07/27/2005 08/09/2008 Overview: Alb/Creat 10 in - A1C 7.9% in 01-01, 11.8% in 07-05 Creat 1.4 in 07-05 Asthma 07/07/2015 documented as of this encounter (statuses as of 10/26/2021) [facility]arrative* Problem Noted Date Resolved Date CKD (chronic kidney disease) stage 3, GFR 30-59 ml/min 05/26/2017 10/04/2019 Type 2 DM with CKD stage 3 and hypertension 03/2809/17/2020 Type 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, uncontrolled(250.62) 07/23/200902/25 Ulcer of other part of foot 06/30/200902/25 Dermatophytosis of nail 04/22/2009 03/09/20 11 Other specified gastritis without mention of hem orrhage 09/18/2008 07/07/2015 Hypertrophy of prostate with out urinary obstruction and other lower urinary tract symptoms (LUTS) 09/18/2008 09/08/2011 Background diabetic retinopathy(362.01) 09/19/19 09 06/30/2015 Type II or unspecified type diabetes mellitus without mention of complication, uncontrolled 07/27/2005 08/09/2008 Overview: Alb/Creat 10 in - A1C 7.9% in 7-08, 11.8% in 1-09 Creat 1.4 in 1-09 Asthma 07/07/2015 documented as of this encounter (statuses as of 11/04/2021) [facility]arrative* Problem Noted Date Resolved Date CKD (chronic kidney disease) stage 3, GFR 30-59 ml/min 05/26/2017 10/04/2019 Type 2 DM with CKD stage 3 and hypertension 03/2809/17/2020 Type 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, uncontrolled(250.62) 07/23/200902/25 Ulcer of other part of foot 06/30/200902/25 Dermatophytosis of nail 04/22/2009 03/09/20 11 Other specified gastritis without mention of hem orrhage 09/18/2008 07/07/2015 Hypertrophy of prostate with out urinary obstruction and other lower urinary tract symptoms (LUTS) 09/18/2008 09/08/2011 Background diabetic retinopathy(362.01) 09/19/19 09 06/30/2015 Type II or unspecified type diabetes mellitus without mention of complication, uncontrolled 07/27/2005 08/09/2008 Overview: Alb/Creat 10 in 7-08 A1C 7.9% in 7-08, 11.8% in 1- Creat 1.4 in 1-09 Asthma 07/07/2015 documented as of this encounter (statuses as of 11/04/2021) [facility] Narrative* Problem Noted Date Resolved Date CKD (chronic kidney disease) stage 3, GFR 30-59 ml/min 05/26/2017 10/04/2019 Type 2 DM with CKD stage 3 and hypertension 03/2809/17/2020 Type 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, uncontrolled(250.62) 07/23/200902/25 Ulcer of other part of foot 06/30/200902/25 Dermatophytosis of nail 04/22/2009 03/09/20 11 Other specified gastritis without mention of hem orrhage 09/18/2008 07/07/2015 Hypertrophy of prostate with out urinary obstruction and other lower urinary tract symptoms (LUTS) 09/18/2008 09/08/2011 Background diabetic retinopathy(362.01) 09/19/19 09 06/30/2015 Type II or unspecified type diabetes mellitus without mention of complication, uncontrolled 07/27/2005 08/09/2008 Overview: Alb/Creat 10 in 7- A1C 7.9% in 7-08, 11.8% in - Creat 1.4 in - Asthma 07/07/2015 documented as of this encounter (statuses as of 11/05/2021) [facility]arrative* Problem Noted Date Resolved Date CKD (chronic kidney disease) stage 3, GFR 30-59 ml/min 05/26/2017 10/04/2019 Type 2 DM with CKD stage 3 and hypertension 03/2809/17/2020 Type 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, uncontrolled(250.62) 07/23/200902/25 Ulcer of other part of foot 06/30/200902/25 Dermatophytosis of nail 04/22/2009 03/09/20 11 Other specified gastritis without mention of hem orrhage 09/18/2008 07/07/2015 Hypertrophy of prostate with out urinary obstruction and other lower urinary tract symptoms (LUTS) 09/18/2008 09/08/2011 Background diabetic retinopathy(362.01) 09/19/19 09 06/30/2015 Type II or unspecified type diabetes mellitus without mention of complication, uncontrolled 07/27/2005 08/09/2008 Overview: Alb/Creat 10 in 7- A1C 7.9% in -, 11.8% in 07-05 Creat 1.4 in - Asthma 07/07/2015 documented as of this encounter (statuses as of 11/09/2021) [facility]arrative* Problem Noted Date Resolved Date CKD (chronic kidney disease) stage 3, GFR 30-59 ml/min 05/26/2017 10/04/2019 Type 2 DM with CKD stage 3 and hypertension 10/2 08/2016 09/17/2020 Type 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, uncontrolled(250.62) 07/23/200902/25 Ulcer of other part of foot 06/30/200902/25 Dermatophytosis of nail 04/22/2009 03/09/20 11 Other specified gastritis without mention of hem orrhage 09/18/2008 07/07/2015 Hypertrophy of prostate with out urinary obstruction and other lower urinary tract symptoms (LUTS) 09/18/2008 09/08/2011 Background diabetic retinopathy(362.01) 09/19/19 09 06/30/2015 Type II or unspecified type diabetes mellitus without mention of complication, uncontrolled 07/27/2005 08/09/2008 Overview: Alb/Creat 10 in 7-08 A1C 7.9% in 7-08, 11.8% in 07-05 Creat 1.4 in - Asthma 07/07/2015 documented as of this encounter (statuses as of 11/18/2021) [facility]arrative* Problem Noted Date Resolved Date CKD (chronic kidney disease) stage 3, GFR 30-59 ml/min 05/26/2017 10/04/2019 Type 2 DM with CKD stage 3 and hypertension 03/2809/17/2020 Type 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, uncontrolled(250.62) 07/23/200902/25 Ulcer of other part of foot 06/30/200902/25 Dermatophytosis of nail 04/22/2009 03/09/20 11 Other specified gastritis without mention of hem orrhage 09/18/2008 07/07/2015 Hypertrophy of prostate with out urinary obstruction and other lower urinary tract symptoms (LUTS) 09/18/2008 09/08/2011 Background diabetic retinopathy(362.01) 09/19/1906/30/2015 Type II or unspecified type diabetes mellitus without mention of complication, uncontrolled 07/27/2005 08/09/2008 Overview: Alb/Creat 10 in 7-08 A1C 7.9% in 7-08, 11.8% in 07-05 Creat 1.4 in - Asthma 07/07/2015 documented as of this encounter (statuses as of 11/27/2021) [facility]arrative* Problem Noted Date Resolved Date CKD (chronic kidney disease) stage 3, GFR 30-59 ml/min 05/26/2017 10/04/2019 Type 2 DM with CKD stage 3 and hypertension 03/2809/17/2020 Type 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, uncontrolled(250.62) 07/23/200902/25 Ulcer of other part of foot 06/30/200902/25 Dermatophytosis of nail 04/22/2009 03/09/20 11 Other specified gastritis without mention of hem orrhage 09/18/2008 07/07/2015 Hypertrophy of prostate with out urinary obstruction and other lower urinary tract symptoms (LUTS) 09/18/2008 09/08/2011 Background diabetic retinopathy(362.01) 09/19/19 09 06/30/2015 Type II or unspecified type diabetes mellitus without mention of complication, uncontrolled 07/27/2005 08/09/2008 Overview: Alb/Creat 10 in 7-08 A1C 7.9% in 7-08, 11.8% in - Creat 1.4 in - Asthma 07/07/2015 documented as of this encounter (statuses as of 12/15/2021) [facility]* Problem Noted Date Resolved Date CKD (chronic kidney disease) stage 3, GFR 30-59 ml/min 05/26/2017 10/04/2019 Type 2 DM with CKD stage 3 and hypertension 03/2809/17/2020 Type 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, uncontrolled(250.62) 07/23/200902/25 Ulcer of other part of foot 06/30/200902/25 Dermatophytosis of nail 04/22/2009 03/09/20 11 Other specified gastritis without mention of hem orrhage 09/18/2008 07/07/2015 Hypertrophy of prostate with out urinary obstruction and other lower urinary tract symptoms (LUTS) 09/18/2008 09/08/2011 Background diabetic retinopathy(362.01) 09/19/19 06/30/2015 Type II or unspecified type diabetes mellitus without mention of complication, uncontrolled 07/27/2005 08/09/2008 Overview: Alb/Creat 10 in 7-08 A1C 7.9% in 7-08, 11.8% in - Creat 1.4 in - Asthma 07/07/2015 documented as of this encounter (statuses as of 12/18/2021) [facility]arrative* Problem Noted Date Resolved Date CKD (chronic kidney disease) stage 3, GFR 30-59 ml/min 05/26/2017 10/04/2019 Type 2 DM with CKD stage 3 and hypertension 03/2809/17/2020 Type 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, uncontrolled(250.62) 07/23/200902/25 Ulcer of other part of foot 06/30/200902/25 Dermatophytosis of nail 04/22/2009 03/09/20 11 Other specified gastritis without mention of hem orrhage 09/18/2008 07/07/2015 Hypertrophy of prostate with out urinary obstruction and other lower urinary tract symptoms (LUTS) 09/18/2008 09/08/2011 Background diabetic retinopathy(362.01) 09/19/19 09 06/30/2015 Type II or unspecified type diabetes mellitus without mention of complication, uncontrolled 07/27/2005 08/09/2008 Overview: Alb/Creat 10 in 7-08 A1C 7.9% in 7-08, 11.8% in 07-05 Creat 1.4 in - Asthma 07/07/2015 documented as of this encounter (statuses as of 12/23/2021) [facility]2017 History of Past illness Narrative* Problem Noted Date Resolved Date CKD (chronic kidney disease) stage 3, GFR 30-59 ml/min 05/26/2017 10/04/2019 Type 2 DM with CKD stage 3 and hypertension 03/2809/17/2020 Type 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, uncontrolled(250.62) 07/23/200902/25 Ulcer of other part of foot 06/30/200902/25 Dermatophytosis of nail 04/22/2009 03/09/20 11 Other specified gastritis without mention of hem orrhage 09/18/2008 07/07/2015 Hypertrophy of prostate with out urinary obstruction and other lower urinary tract symptoms (LUTS) 09/18/2008 09/08/2011 Background diabetic retinopathy(362.01) 09/19/19 09 06/30/2015 Type II or unspecified type diabetes mellitus without mention of complication, uncontrolled 07/27/2005 08/09/2008 Overview: Alb/Creat 10 in 01-01 A1C 7.9% in 01-01, 11.8% in 07-05 Creat 1.4 in - Asthma 07/07/2015 documented as of this encounter (statuses as of 01/01/2022) [facility] History of Past illness Narrative* Problem Noted Date Resolved Date CKD (chronic kidney disease) stage 3, GFR 30-59 ml/min 05/26/2017 10/04/2019 Type 2 DM with CKD stage 3 and hypertension 03/2809/17/2020 Type 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, uncontrolled(250.62) 07/23/200902/25 Ulcer of other part of foot 06/30/200902/25 Dermatophytosis of nail 04/22/2009 03/09/20 11 Other specified gastritis without mention of hem orrhage 09/18/2008 07/07/2015 Hypertrophy of prostate with out urinary obstruction and other lower urinary tract symptoms (LUTS) 09/18/2008 09/08/2011 Background diabetic retinopathy(362.01) 09/19/19 09 06/30/2015 Type II or unspecified type diabetes mellitus without mention of complication, uncontrolled 07/27/2005 08/09/2008 Overview: Alb/Creat 10 in 01-01 A1C 7.9% in 01-01, 11.8% in 07-05 Creat 1.4 in - Asthma 07/07/2015 documented as of this encounter (statuses as of 01/08/2022) [facility] History of Past illness Narrative* Problem Noted Date Resolved Date CKD (chronic kidney disease) stage 3, GFR 30-59 ml/min 05/26/2017 10/04/2019 Type 2 DM with CKD stage 3 and hypertension 03/2809/17/2020 Type 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, uncontrolled(250.62) 07/23/200902/25 Ulcer of other part of foot 06/30/200902/25 Dermatophytosis of nail 04/22/2009 03/09/20 11 Other specified gastritis without mention of hem orrhage 09/18/2008 07/07/2015 Hypertrophy of prostate with out urinary obstruction and other lower urinary tract symptoms (LUTS) 09/18/2008 09/08/2011 Background diabetic retinopathy(362.01) 09/19/19 09 06/30/2015 Type II or unspecified type diabetes mellitus without mention of complication, uncontrolled 07/27/2005 08/09/2008 Overview: Alb/Creat 10 in - A1C 7.9% in 01-01, 11.8% in 07-05 Creat 1.4 in 07-05 Asthma 07/07/2015 documented as of this encounter (statuses as of 01/14/2022) [facility] History of Past illness Narrative* Problem Noted Date Resolved Date CKD (chronic kidney disease) stage 3, GFR 30-59 ml/min 05/26/2017 10/04/2019 Type 2 DM with CKD stage 3 and hypertension 03/2809/17/2020 Type 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, uncontrolled(250.62) 07/23/200902/25 Ulcer of other part of foot 06/30/200902/25 Dermatophytosis of nail 04/22/2009 03/09/20 11 Other specified gastritis without mention of hem orrhage 09/18/2008 07/07/2015 Hypertrophy of prostate with out urinary obstruction and other lower urinary tract symptoms (LUTS) 09/18/2008 09/08/2011 Background diabetic retinopathy(362.01) 09/19/19 09 06/30/2015 Type II or unspecified type diabetes mellitus without mention of complication, uncontrolled 07/27/2005 08/09/2008 Overview: Alb/Creat 10 in 7-08 A1C 7.9% in 7-08, 11.8% in - Creat 1.4 in - Asthma 07/07/2015 documented as of this encounter (statuses as of 01/19/2022) [facility] History of Past illness Narrative* Problem Noted Date Resolved Date CKD (chronic kidney disease) stage 3, GFR 30-59 ml/min 05/26/2017 10/04/2019 Type 2 DM with CKD stage 3 and hypertension 03/2809/17/2020 Type 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, uncontrolled(250.62) 07/23/200902/25 Ulcer of other part of foot 06/30/200902/25 Dermatophytosis of nail 04/22/2009 03/09/20 11 Other specified gastritis without mention of hem orrhage 09/18/2008 07/07/2015 Hypertrophy of prostate with out urinary obstruction and other lower urinary tract symptoms (LUTS) 09/18/2008 09/08/2011 Background diabetic retinopathy(362.01) 09/19/19 09 06/30/2015 Type II or unspecified type diabetes mellitus without mention of complication, uncontrolled 07/27/2005 08/09/2008 Overview: Alb/Creat 10 in 7- A1C 7.9% in 7-08, 11.8% in - Creat 1.4 in -09 Asthma 07/07/2015 documented as of this encounter (statuses as of 01/20/2022) [facility] History of Past illness Narrative* Problem Noted Date Resolved Date CKD (chronic kidney disease) stage 3, GFR 30-59 ml/min 05/26/2017 10/04/2019 Type 2 DM with CKD stage 3 and hypertension 03/2809/17/2020 Type 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, uncontrolled(250.62) 07/23/200902/25 Ulcer of other part of foot 06/30/200902/25 Dermatophytosis of nail 04/22/2009 03/09/20 11 Other specified gastritis without mention of hem orrhage 09/18/2008 07/07/2015 Hypertrophy of prostate with out urinary obstruction and other lower urinary tract symptoms (LUTS) 09/18/2008 09/08/2011 Background diabetic retinopathy(362.01) 09/19/19 09 06/30/2015 Type II or unspecified type diabetes mellitus without mention of complication, uncontrolled 07/27/2005 08/09/2008 Overview: Alb/Creat 10 in 7- A1C 7.9% in 7-, 11.8% in - Creat 1.4 in - Asthma 07/07/2015 documented as of this encounter (statuses as of 01/21/2022) [facility] History of Past illness Narrative* Problem Noted Date Resolved Date CKD (chronic kidney disease) stage 3, GFR 30-59 ml/min 05/26/2017 10/04/2019 Type 2 DM with CKD stage 3 and hypertension 03/2809/17/2020 Type 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, uncontrolled(250.62) 07/23/200902/25 Ulcer of other part of foot 06/30/200902/25 Dermatophytosis of nail 04/22/2009 03/09/20 11 Other specified gastritis without mention of hem orrhage 09/18/2008 07/07/2015 Hypertrophy of prostate with out urinary obstruction and other lower urinary tract symptoms (LUTS) 09/18/2008 09/08/2011 Background diabetic retinopathy(362.01) 09/19/19 09 06/30/2015 Type II or unspecified type diabetes mellitus without mention of complication, uncontrolled 07/27/2005 08/09/2008 Overview: Alb/Creat 10 in - A1C 7.9% in -, 11.8% in 07-05 Creat 1.4 in 07-05 Asthma 07/07/2015 documented as of this encounter (statuses as of 01/26/2022) [facility] History of Past illness Narrative* Problem Noted Date Resolved Date CKD (chronic kidney disease) stage 3, GFR 30-59 ml/min 05/26/2017 10/04/2019 Type 2 DM with CKD stage 3 and hypertension 03/2809/17/2020 Type 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, uncontrolled(250.62) 07/23/200902/25 Ulcer of other part of foot 06/30/200902/25 Dermatophytosis of nail 04/22/2009 03/09/20 11 Other specified gastritis without mention of hem orrhage 09/18/2008 07/07/2015 Hypertrophy of prostate with out urinary obstruction and other lower urinary tract symptoms (LUTS) 09/18/2008 09/08/2011 Background diabetic retinopathy(362.01) 09/19/19 09 06/30/2015 Type II or unspecified type diabetes mellitus without mention of complication, uncontrolled 07/27/2005 08/09/2008 Overview: Alb/Creat 10 in 7-08 A1C 7.9% in 7-, 11.8% in 07-05 Creat 1.4 in - Asthma 07/07/2015 documented as of this encounter (statuses as of 01/27/2022) [facility] History of Past illness Narrative* Problem Noted Date Resolved Date CKD (chronic kidney disease) stage 3, GFR 30-59 ml/min 05/26/2017 10/04/2019 Type 2 DM with CKD stage 3 and hypertension 03/2809/17/2020 Type 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, uncontrolled(250.62) 07/23/200902/25 Ulcer of other part of foot 06/30/200902/25 Dermatophytosis of nail 04/22/2009 03/09/20 11 Other specified gastritis without mention of hem orrhage 09/18/2008 07/07/2015 Hypertrophy of prostate with out urinary obstruction and other lower urinary tract symptoms (LUTS) 09/18/2008 09/08/2011 Background diabetic retinopathy(362.01) 09/19/1906/30/2015 Type II or unspecified type diabetes mellitus without mention of complication, uncontrolled 07/27/2005 08/09/2008 Overview: Alb/Creat 10 in 7-08 A1C 7.9% in 7-08, 11.8% in 07-05 Creat 1.4 in - Asthma 07/07/2015 documented as of this encounter (statuses as of 01/29/2022) [facility] Diagnosis Benign paroxysmal positional vertigo, unspecified laterality- Primary Hyperkalemia Hyperpotassemia Type 2 diabetes mellitus with diabetic polyneuropathy, with long-term current use of insulin (HCC) Hyperlipidemia, unspecified hyperlipidemia type [facility] this encounter [facility] Diagnosis Type 2 diabetes mellitus with diabetic polyneuropathy, with long-term current use of insulin (HCC) [facility] Diagnosis Screening for genitourinary condition Screening for other and unspecified genitourinary condition CKD (chronic kidney disease) stage 3, GFR 30-59 ml/min (HCC) Chronic kidney disease, Stage III (moderate) 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 Other secondary hypertension, unspecified Mixed hyperlipidemia [facility] Diagnosis Benign paroxysmal positional vertigo, unspecified laterality Dizziness and giddiness [facility] Diagnosis Screening for genitourinary condition Screening for other and unspecified genitourinary condition CKD (chronic kidney disease) stage 3, GFR 30-59 ml/min (HCC) Chronic kidney disease, Stage III (moderate) 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 Other secondary hypertension, unspecified Mixed hyperlipidemia Type 2 diabetes mellitus with diabetic polyneuropathy, with long-term current use of insulin (HCC) [facility] Diagnosis Type 2 diabetes mellitus with diabetic polyneuropathy, with long-term current use of insulin (HCC)- Primary [facility] Diagnosis Stage 3b chronic kidney disease (HCC)- Primary Anemia of renal disease 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 hyperparathyroidism (of renal origin) Essential hypertension Unspecified essential hypertension Vertigo Dizziness and giddiness [facility] Diagnosis Benign paroxysmal positional vertigo, unspecified laterality Dizziness and giddiness [facility] Diagnosis Screening for genitourinary condition Screening for other and unspecified genitourinary condition CKD (chronic kidney disease) stage 3, GFR 30-59 ml/min (HCC) Chronic kidney disease, Stage III (moderate) 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 Other secondary hypertension, unspecified Mixed hyperlipidemia [facility] Diagnosis Personal history of colonic polyps- [facility] Personal history of colonic polyps [facility] Diagnosis History of colonic polyps- Primary Personal history of colonic polyps Diverticulosis Diverticulosis of colon (without mention of hemorrhage) Tubular adenoma of colon Benign neoplasm of colon [facility] Diagnosis Other diabetic neurological complication associated with type 2 diabetes mellitus (HCC)- Primary Pes planus of both feet Callus of foot Corns and callosities Onychomycosis Dermatophytosis of nail Pain in toe of right foot Pain in limb Pain in toe of left foot Pain in limb Diminished pulses in lower extremity Other symptoms involving cardiovascular system [facility] Diagnosis Type 2 diabetes mellitus with diabetic polyneuropathy, with long-term current use of insulin (HCC)- Primary Benign paroxysmal positional vertigo, unspecified laterality Stage 3b chronic kidney disease (HCC) Essential hypertension Unspecified essential hypertension [facility] Diagnosis Screening for genitourinary condition Screening for other and unspecified genitourinary condition CKD (chronic kidney disease) stage 3, GFR 30-59 ml/min (HCC) Chronic kidney disease, Stage III (moderate) 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 Other secondary hypertension, unspecified Mixed hyperlipidemia [facility] Diagnosis Flank pain, acute- Primary Abdominal pain, unspecified site Essential hypertension Unspecified essential hypertension [facility] Diagnosis Vitreous floaters of both eyes- Primary 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, with long-term current use of insulin (HCC) Primary open angle glaucoma (POAG) of both eyes, 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 [facility] Diagnosis Diabetic ulcer of toe of right foot associated with type 2 diabetes mellitus, limited to breakdown of skin (HCC)- Primary Stage 3b chronic kidney disease (HCC)- Primary Anemia of renal disease Anemia in chronic kidney disease Essential hypertension Unspecified essential hypertension Other proteinuria Hyperlipidemia, unspecified hyperlipidemia type Secondary renal hyperparathyroidism (HCC) Secondary hyperparathyroidism (of renal origin) [facility] Diagnosis Stage 3b chronic kidney disease (HCC)- Primary Type 2 DM with CKD stage 3 and hypertension (HCC) Essential hypertension Unspecified essential hypertension Other proteinuria Anemia of renal disease Anemia in chronic kidney disease Hyperlipidemia, unspecified hyperlipidemia type Secondary renal hyperparathyroidism (HCC) Secondary hyperparathyroidism (of renal origin) [facility] Diagnosis Right foot ulcer, limited to breakdown of skin (HCC)- Primary [facility] Diagnosis Right foot ulcer, limited to breakdown of skin (HCC)- Primary [facility] Diagnosis Primary open angle glaucoma (POAG) of both eyes, severe stage- Primary 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, with long-term current use of insulin (HCC) [facility] Diagnosis Skin ulcer of right great toe, limited to breakdown of skin (HCC)- Primary Skin ulcer of second toe of right foot, limited to breakdown of skin (HCC) [facility] Diagnosis Skin ulcer of right great toe, limited to breakdown of skin (HCC) Skin ulcer of second toe of right foot, limited to breakdown of skin (HCC) [facility] Diagnosis Controlled type 2 diabetes mellitus with diabetic polyneuropathy, with long-term current use of insulin (HCC) [E11.42, Z79.4 (ICD-10-CM)]- Primary [facility] Diagnosis Diabetic polyneuropathy associated with type 2 diabetes mellitus (HCC)- Primary [facility] Diagnosis Retinal edema 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) [facility] Diagnosis Skin ulcer of right great toe, limited to breakdown of skin (HCC)- Primary [facility] Diagnosis Skin ulcer of right great toe, limited to breakdown of skin (HCC)- Primary [facility]* Diagnosis Stage 3b chronic kidney disease (HCC) Other proteinuria [facility] Diagnosis Other diabetic neurological complication associated with type 2 diabetes mellitus (HCC)- Primary Pes planus of both feet Callus of foot Corns and callosities Onychomycosis Dermatophytosis of nail Pain in toe of right foot Pain in limb Pain in toe of left foot Pain in limb Diminished pulses in lower extremity Other symptoms involving cardiovascular system [facility] Diagnosis 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)- Primary Primary open angle glaucoma (POAG) of both eyes, 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 Vitreous floaters of both eyes [facility] Diagnosis Diabetic polyneuropathy associated with type 2 diabetes mellitus (HCC) [E11.42 (ICD-10-CM)]- Primary [facility] Diagnosis Other diabetic neurological complication associated with type 2 diabetes mellitus (HCC)- Primary Onychomycosis Dermatophytosis of nail Pain in toe of right foot Pain in limb Pain in toe of left foot Pain in limb [facility] Diagnosis 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)- Primary Primary open angle glaucoma (POAG) of both eyes, 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 Vitreous floaters of both eyes [facility] Diagnosis Stage 3b chronic kidney disease (HCC)- Primary Anemia of renal disease 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 hyperparathyroidism (of renal origin) Primary hypertension Unspecified essential hypertension Diabetic nephropathy associated with type 2 diabetes mellitus (HCC) [facility] Diagnosis Type 2 diabetes mellitus with diabetic polyneuropathy, with long-term current use of insulin (HCC)- Primary Essential hypertension Unspecified essential hypertension Stage 3b chronic kidney disease (HCC) Other proteinuria Anemia in stage 3 chronic kidney disease, unspecified whether stage 3a or 3b CKD (HCC) Hyperlipidemia, unspecified hyperlipidemia type [facility] Diagnosis Callus of foot- Primary Corns and callosities Pes planus of both feet Other diabetic neurological complication associated with type 2 diabetes mellitus (HCC) [facility] Diagnosis Callus of foot- Primary Corns and callosities Pes planus of both feet Other diabetic neurological complication associated with type 2 diabetes mellitus (HCC) [facility] Diagnosis Type 2 DM with CKD stage 3 and hypertension (HCC)- Primary Other proteinuria Secondary renal hyperparathyroidism (HCC) Secondary hyperparathyroidism (of renal origin) Anemia of renal disease Anemia in chronic kidney disease Hyperlipidemia, unspecified hyperlipidemia type Stage 3b chronic kidney disease (HCC) CKD (chronic kidney disease) stage 4, GFR 15-29 ml/min (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) [facility] Diagnosis Primary open angle glaucoma (POAG) of both eyes, severe stage- Primary [facility]* Diagnosis Type 2 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 disease, with long-term current use of insulin, unspecified whether stage 3a or 3b CKD (HCC) Type 2 diabetes mellitus with diabetic polyneuropathy, with long-term current use of insulin ([facility]) [facility] Diagnosis Medicare annual wellness visit, subsequent- Primary Routine general medical examination at a health care facility [facility] encounter [facility] Diagnosis Bacterial sinusitis- Primary Unspecified sinusitis (chronic) Acute upper respiratory infection, unspecified documented in this encounter [facility] for referral (narrative)* Outpatient Procedure (Routine) - Closed Specialty Diagnoses / Procedures Referred By Anup obrien Referred To Contact [facility] Diagnoses Personal history of colonic polyps Procedures COLONOSCOPY SCREENING COLONOSCOPY FLX DX W/COLLJ SPEC WHEN PFRMD Tati Anderson PA-C [address] [place] [address] [facility] [place] [address] Referral ID Status Reason Start Date Expiration Date V isits Requested Visits Authorized [id number] Closed Auto-Generate d Referral 09/02/2021 09/02/2022 1 1 [place] for referral (narrative)* Outpatient Procedure (Routine) - Closed Specialty Diagnoses / Procedures Referred By Contac t Referred To Contact [facility] Diagnoses Personal history of colonic polyps Procedures COLONOSCOPY SCREENING COLONOSCOPY FLX DX W/COLLJ SPEC WHEN PFRMD Tati Anderson PA-C [address] [place] [address] [facility] [place] [address] [place] [address] Referral ID Status Reason Start Date Expiration Date V isits Requested Visits Authorized [id number] Closed Auto-Generate d Referral 09/02/2021 09/02/2022 1 1 [facility] for referral (narrative)* Outpatient Procedure (Routine) - Authorized Specialty Diagnoses / Procedures Referred By Contac t Referred To [facility] Diagnoses Other diabetic neurological complication associated with type 2 diabetes mellitus (HCC) Diminished pulses in lower extremity Procedures PVR ANK PRESS VIV VAS LAB NON-INVAS PHYSIOLOGIC STD EXTREMITY ART 2 LEVEL Marsha Eric [address] [facility] [place] [address] [facility] [address] [address] Referral ID Status Reason Start Date Expiration Date Visits Requested Visits Authorized [id number] Authorized Auto-Generat ed Referral 12/15/2021 12/15/2022 1 1 [facility] referral (narrative)* Diagnostic Procedure Only (Routine) - Closed Specialty Diagnoses / Procedures Referred By Contac t Referred To Contact XR IMAGING Diagnoses Skin ulcer of right great toe, limited to breakdown of skin (HCC) Skin ulcer of second toe of right foot, limited to breakdown of skin (HCC) Procedures XR FOOT GENERAL 3V AP/LAT/OBL RIGHT RADEX FOOT COMPLETE MINIMUM 3 VIEWS Lynn Campbell, DPM [address], [address] [place] [address] Xr Imaging Referral ID Status Reason Start Date Expiration Date V isits Requested Visits Authorized [id number] Closed Auto-Generate d Referral 04/26/2022 05/26/2023 1 1 [facility] for referral (narrative)* Diagnostic Procedure Only (Routine) - Closed Specialty Diagnoses / Procedures Referred By Contac t Referred To Contact XR IMAGING Diagnoses Skin ulcer of right great toe, limited to breakdown of skin (HCC) Skin ulcer of second toe of right foot, limited to breakdown of skin (HCC) Procedures XR FOOT GENERAL 3V AP/LAT/OBL RIGHT RADEX FOOT COMPLETE MINIMUM 3 VIEWS Lynn Campbell, JADA [address], [address] [place] [address] Xr Imaging Referral ID Status Reason Start Date Expiration Date V isits Requested Visits Authorized [id number] Closed Auto-Generate d Referral 04/26/2022 05/26/2023 1 1 [facility] for visit Narrative* Outpatient Procedure (Routine) - Closed Specialty Diagnoses / Procedures Referred By Contac t Referred To Contact [facility] Diagnoses Personal history of colonic polyps Procedures COLONOSCOPY SCREENING COLONOSCOPY FLX DX W/COLLJ SPEC WHEN PFRMD Tati Anderson PA-C [address] [place] [address] [facility] [address] [place] [address] Referral ID Status Reason Start Date Expiration Date V isits Requested Visits Authorized [id number] Closed Auto-Generate d Referral 09/02/2021 09/02/2022 1 1 [facility] for visit Narrative* Diagnostic Procedure Only (Routine) - Closed Specialty Diagnoses / Procedures Referred By Contac t Referred To Contact XR IMAGING Diagnoses Skin ulcer of right great toe, limited to breakdown of skin (HCC) Skin ulcer of second toe of right foot, limited to breakdown of skin (HCC) Procedures XR FOOT GENERAL 3V AP/LAT/OBL RIGHT RADEX FOOT COMPLETE MINIMUM 3 VIEWS Lynn Campbell, JADA [address] [facility], [address] [place] [address] Xr Imaging Referral ID Status Reason Start Date Expiration Date V isits Requested Visits Authorized [id number] Closed Auto-Generate d Referral 04/26/2022 05/26/2023 1 1 [facility] Summary Purpose Family History No Family History Records FoundNo Family History Records FoundNo Family History Records FoundNo Family History Records FoundNo Family History Records Found Advance Directives No Advanced Directives Records FoundDocuments on File Type Date Recorded Patient [employer] Advance Directive(s) 04/26/2018 9:58 AM Advance Directive(s) 08/04/2016 10:18 AM Advance Directive(s) 07/30/2016 10:37 AM Documents on File Type Date Recorded Patient [employer] Advance Directive(s) 04/26/2018 9:58 AM Advance Directive(s) 08/04/2016 10:18 AM Advance Directive(s) 07/30/2016 10:37 AM Documents on File Type Date Recorded Patient [employer] Advance Directive(s) 11/04/2021 1:35 PM Advance Directive(s) 04/26/2018 9:58 AM Advance Directive(s) 08/04/2016 10:18 AM Advance Directive(s) 07/30/2016 10:37 AM Documents on File Type Date Recorded Patient [employer] Advance Directive(s) 11/04/2021 1:35 PM Advance Directive(s) 04/26/2018 9:58 AM Advance Directive(s) 08/04/2016 10:18 AM Advance Directive(s) 07/30/2016 10:37 AM Reason for Referral Specialty Diagnoses / Procedures Referred By Anup t Referred To Contact [facility] Diagnoses Benign paroxysmal positional vertigo, unspecified laterality Procedures CONSULT TO PHYSICAL THERAPY PHYSICAL THERAPY EVALUATION HIGH COMPLEX 45 MINS [place], [place], [employer] [address] [place] [address] [facility] [address] [place] [address] Referral ID Status Reason Start Date Expiration Date Visits Requested Visits Authorized [id number] Authorized PCP Requested Referral Auto-Generate d Referral 09/22/2021 09/22/2022 99 99 Specialty Diagnoses / Procedures Referred By Anup obrien Referred To Contact Diagnoses Flank pain, acute Jesse Glover MD [address] [place] [address] Referral ID Status Reason Start Date Expiration Date V isits Requested Visits Authorized [id number] Pending Review 1 1 Medications Administered Section Inactive Administered Medications - up to 3 most recent administrations Medication Order MAR Action Action Date Dose Rate Site lactated ringers iv infusion 30 mL/hr, INTRAVENOUS, CONTINUOUS, Starting on Tue11/04/21 at 0630, Until Tue11/04/21 at 0802, Preprocedure Restarted 11/04/2021 7:54 AM EDT Active Administered Medications - up to 3 most recent administrations Medication Order MAR Action Action Date Dose Rate Site fluorescein-benoxinate 0.25-0.4 % 1 Drop (FLURESS) 1 Drop, BOTH EYES, DIRECTED, Starting on Tue02/23/22 at 0900, Until Tue02/23/22 at 2058, Administer for applanation tonometry. In the event of a Fluress shortage, administer [employer]-Fluor 1 drop into both eyes as directed for applanation tonometry Given 02/23/2022 9:00 AM EDT 1 Drop PHENYLephrine 2.5 % 1 Drop (AK-DILATE, PATI-SYNEPHRINE) 1 Drop, BOTH EYES, DIRECTED, Starting on Tue02/23/22 at 0900, Until Tue02/23/22 at 2058, Administer for dilation PROTECT FROM LIGHT Given 02/23/2022 9:00 AM EDT 1 Drop proparacaine 0.5 % 1 Drop (ALCAINE) 1 Drop, BOTH EYES, DIRECTED, Starting on Tue02/23/22 at 0900, Until Tue02/23/22 at 2058, Administer for pneumo tonometry, tonopen tonometry, or pachymetry. In the event of a proparacaine shortage, administer tetracaine 0.5% ophthalmic drops 1 drop in the left eye as directed for pneumo tonometry, tonopen tonometry, or pachymetry Given 02/23/2022 9:00 AM EDT 1 Drop tropicamide 1 % 1 Drop (MYDRIACYL) 1 Drop, BOTH EYES, DIRECTED, Starting on Tue02/23/22 at 0900, Until Tue02/23/22 at 2058, Administer for dilation Given 02/23/2022 9:00 AM EDT 1 Drop Active Administered Medications - up to 3 most recent administrations Medication Order MAR Action Action Date Dose Rate Site PHENYLephrine 2.5 % 1 Drop (AK-DILATE, PATI-SYNEPHRINE) 1 Drop, BOTH EYES, DIRECTED, Starting on Tue04/21/22 at 0930, Until Tue04/21/22 at 2128, Administer for dilation PROTECT FROM LIGHT Given 04/21/2022 9:18 AM EDT 1 Drop proparacaine 0.5 % 1 Drop (ALCAINE) 1 Drop, BOTH EYES, DIRECTED, Starting on Tue04/21/22 at 0930, Until Tue04/21/22 at 2128, Administer for pneumo tonometry, tonopen tonometry, or pachymetry. In the event of a proparacaine shortage, administer tetracaine 0.5% ophthalmic drops 1 drop in the left eye as directed for pneumo tonometry, tonopen tonometry, or pachymetry Given 04/21/2022 9:18 AM EDT 1 Drop tropicamide 1 % 1 Drop (MYDRIACYL) 1 Drop, BOTH EYES, DIRECTED, Starting on Tue04/21/22 at 0930, Until Tue04/21/22 at 2128, Administer for dilation Given 04/21/2022 9:18 AM EDT 1 Drop Active Administered Medications - up to 3 most recent administrations Medication Order MAR Action Action Date Dose Rate Site fluorescein-benoxinate 0.25-0.4 % 1 Drop (FLURESS) 1 Drop, BOTH EYES, DIRECTED, Starting on Tue05/05/22 at 1100, Until Tue05/05/22 at 2259, Administer for applanation tonometry. In the event of a Fluress shortage, administer 1 drop of [employer]-Fluor into both eyes as directed for applanation tonometry., OPHT CLINIC MED ORDERS Given 05/05/2022 11:00 AM EST 1 Drop PHENYLephrine 2.5 % 1 Drop (AK-DILATE, PATI-SYNEPHRINE) 1 Drop, BOTH EYES, DIRECTED, Starting on Tue05/05/22 at 1100, Until Tue05/05/22 at 2259, Administer for dilation PROTECT FROM LIGHT, OPHT CLINIC MED ORDERS Given 05/05/2022 11:00 AM EST 1 Drop proparacaine 0.5 % 1 Drop (ALCAINE) 1 Drop, BOTH EYES, DIRECTED, Starting on Tue05/05/22 at 1100, Until Tue05/05/22 at 2259, Administer for pneumo tonometry, tonopen tonometry, or pachymetry. In the event of a proparacaine shortage, administer 1 drop of tetracaine 0.5% ophthalmic drops into both eyes as directed for pneumo tonometry, tonopen tonometry, or pachymetry, OPHT CLINIC MED ORDERS Given 05/05/2022 11:00 AM EST 1 Drop tropicamide 1 % 1 Drop (MYDRIACYL) 1 Drop, BOTH EYES, DIRECTED, Starting on Tue05/05/22 at 1100, Until Tue05/05/22 at 2259, Administer for dilation, OPHT CLINIC MED ORDERS Given 05/05/2022 11:00 AM EST 1 Drop Health Concerns Infection Onset Date Last Indicated Resolved Time COVID-19 Confirmed 06/19/2023 06/19/2023 Additional Source Comments (unrecognized sect ion and content) No Status Records FoundNo Status Records FoundNo Status Records FoundNo Status Records FoundNo Status Records Found INFORMATION SOURCE (unrecogn ized section and content) DATE CREATED AUTHOR AUTHOR'S ORGANIZ ATION 01/26/2020 [facility] DATE CREATED AUTHOR AUTHOR'S ORGANIZ ATION 02/04/2022 [facility] DATE CREATED AUTHOR AUTHOR'S ORGANIZ ATION 06/01/2022 [facility] DATE CREATED AUTHOR AUTHOR'S ORGANIZ ATION 06/22/2023 [facility] Source Comments (unrecognize d section and content) In the event this informatio n is protected by the Federal Confidentiality of Alcohol and Drug Abuse Patient Records regulations: The Federal rules restrict any use of the information to criminally investigate or prosecute any alcohol or drug abuse patient.[facility] the event this information is protected by the Federal Confidentiality of Alcohol and Drug Abuse Patient Records regulations: The Federal rules restrict any use of the information to criminally investigate or prosecute any alcohol or drug abuse patient.[facility] the event this information is protected by the Federal Confidentiality of Alcohol and Drug Abuse Patient Records regulations: The Federal rules restrict any use of the information to criminally investigate or prosecute any alcohol or drug abuse patient.[facility] the event this information is protected by the Federal Confidentiality of Alcohol and Drug Abuse Patient Records regulations: The Federal rules restrict any use of the information to criminally investigate or prosecute any alcohol or drug abuse patient.[facility] the event this information is protected by the Federal Confidentiality of Alcohol and Drug Abuse Patient Records regulations: The Federal rules restrict any use of the information to criminally investigate or prosecute any alcohol or drug abuse patient.[facility] the event this information is protected by the Federal Confidentiality of Alcohol and Drug Abuse Patient Records regulations: The Federal rules restrict any use of the information to criminally investigate or prosecute any alcohol or drug abuse patient.[facility] the event this information is protected by the Federal Confidentiality of Alcohol and Drug Abuse Patient Records regulations: The Federal rules restrict any use of the information to criminally investigate or prosecute any alcohol or drug abuse patient.[facility] the event this information is protected by the Federal Confidentiality of Alcohol and Drug Abuse Patient Records regulations: The Federal rules restrict any use of the information to criminally investigate or prosecute any alcohol or drug abuse patient.[facility] the event this information is protected by the Federal Confidentiality of Alcohol and Drug Abuse Patient Records regulations: The Federal rules restrict any use of the information to criminally investigate or prosecute any alcohol or drug abuse patient.[facility] the event this information is protected by the Federal Confidentiality of Alcohol and Drug Abuse Patient Records regulations: The Federal rules restrict any use of the information to criminally investigate or prosecute any alcohol or drug abuse patient.[facility] the event this information is protected by the Federal Confidentiality of Alcohol and Drug Abuse Patient Records regulations: The Federal rules restrict any use of the information to criminally investigate or prosecute any alcohol or drug abuse patient.[facility] the event this information is protected by the Federal Confidentiality of Alcohol and Drug Abuse Patient Records regulations: The Federal rules restrict any use of the information to criminally investigate or prosecute any alcohol or drug abuse patient.[facility] the event this information is protected by the Federal Confidentiality of Alcohol and Drug Abuse Patient Records regulations: The Federal rules restrict any use of the information to criminally investigate or prosecute any alcohol or drug abuse patient.[facility] the event this information is protected by the Federal Confidentiality of Alcohol and Drug Abuse Patient Records regulations: The Federal rules restrict any use of the information to criminally investigate or prosecute any alcohol or drug abuse patient.[facility] the event this information is protected by the Federal Confidentiality of Alcohol and Drug Abuse Patient Records regulations: The Federal rules restrict any use of the information to criminally investigate or prosecute any alcohol or drug abuse patient.[facility]In the event this information is protected by the Federal Confidentiality of Alcohol and Drug Abuse Patient Records regulations: The Federal rules restrict any use of the information to criminally investigate or prosecute any alcohol or drug abuse patient.[facility] the event this information is protected by the Federal Confidentiality of Alcohol and Drug Abuse Patient Records regulations: The Federal rules restrict any use of the information to criminally investigate or prosecute any alcohol or drug abuse patient.[facility]In the event this information is protected by the Federal Confidentiality of Alcohol and Drug Abuse Patient Records regulations: The Federal rules restrict any use of the information to criminally investigate or prosecute any alcohol or drug abuse patient.[facility]In the event this information is protected by the Federal Confidentiality of Alcohol and Drug Abuse Patient Records regulations: The Federal rules restrict any use of the information to criminally investigate or prosecute any alcohol or drug abuse patient.[facility]In the event this information is protected by the Federal Confidentiality of Alcohol and Drug Abuse Patient Records regulations: The Federal rules restrict any use of the information to criminally investigate or prosecute any alcohol or drug abuse patient.[facility]In the event this information is protected by the Federal Confidentiality of Alcohol and Drug Abuse Patient Records regulations: The Federal rules restrict any use of the information to criminally investigate or prosecute any alcohol or drug abuse patient.[facility]In the event this information is protected by the Federal Confidentiality of Alcohol and Drug Abuse Patient Records regulations: The Federal rules restrict any use of the information to criminally investigate or prosecute any alcohol or drug abuse patient.[facility]In the event this information is protected by the Federal Confidentiality of Alcohol and Drug Abuse Patient Records regulations: The Federal rules restrict any use of the information to criminally investigate or prosecute any alcohol or drug abuse patient.[facility]In the event this information is protected by the Federal Confidentiality of Alcohol and Drug Abuse Patient Records regulations: The Federal rules restrict any use of the information to criminally investigate or prosecute any alcohol or drug abuse patient.[facility]In the event this information is protected by the Federal Confidentiality of Alcohol and Drug Abuse Patient Records regulations: The Federal rules restrict any use of the information to criminally investigate or prosecute any alcohol or drug abuse patient.[facility]In the event this information is protected by the Federal Confidentiality of Alcohol and Drug Abuse Patient Records regulations: The Federal rules restrict any use of the information to criminally investigate or prosecute any alcohol or drug abuse patient.[facility]In the event this information is protected by the Federal Confidentiality of Alcohol and Drug Abuse Patient Records regulations: The Federal rules restrict any use of the information to criminally investigate or prosecute any alcohol or drug abuse patient.[facility]In the event this information is protected by the Federal Confidentiality of Alcohol and Drug Abuse Patient Records regulations: The Federal rules restrict any use of the information to criminally investigate or prosecute any alcohol or drug abuse patient.[facility]In the event this information is protected by the Federal Confidentiality of Alcohol and Drug Abuse Patient Records regulations: The Federal rules restrict any use of the information to criminally investigate or prosecute any alcohol or drug abuse patient.[facility]In the event this information is protected by the Federal Confidentiality of Alcohol and Drug Abuse Patient Records regulations: The Federal rules restrict any use of the information to criminally investigate or prosecute any alcohol or drug abuse patient.[facility]In the event this information is protected by the Federal Confidentiality of Alcohol and Drug Abuse Patient Records regulations: The Federal rules restrict any use of the information to criminally investigate or prosecute any alcohol or drug abuse patient.[facility]In the event this information is protected by the Federal Confidentiality of Alcohol and Drug Abuse Patient Records regulations: The Federal rules restrict any use of the information to criminally investigate or prosecute any alcohol or drug abuse patient.[facility]In the event this information is protected by the Federal Confidentiality of Alcohol and Drug Abuse Patient Records regulations: The Federal rules restrict any use of the information to criminally investigate or prosecute any alcohol or drug abuse patient.[facility]In the event this information is protected by the Federal Confidentiality of Alcohol and Drug Abuse Patient Records regulations: The Federal rules restrict any use of the information to criminally investigate or prosecute any alcohol or drug abuse patient.[facility]In the event this information is protected by the Federal Confidentiality of Alcohol and Drug Abuse Patient Records regulations: The Federal rules restrict any use of the information to criminally investigate or prosecute any alcohol or drug abuse patient.[facility]In the event this information is protected by the Federal Confidentiality of Alcohol and Drug Abuse Patient Records regulations: The Federal rules restrict any use of the information to criminally investigate or prosecute any alcohol or drug abuse patient.[facility]In the event this information is protected by the Federal Confidentiality of Alcohol and Drug Abuse Patient Records regulations: The Federal rules restrict any use of the information to criminally investigate or prosecute any alcohol or drug abuse patient.[facility]In the event this information is protected by the Federal Confidentiality of Alcohol and Drug Abuse Patient Records regulations: The Federal rules restrict any use of the information to criminally investigate or prosecute any alcohol or drug abuse patient.[facility]In the event this information is protected by the Federal Confidentiality of Alcohol and Drug Abuse Patient Records regulations: The Federal rules restrict any use of the information to criminally investigate or prosecute any alcohol or drug abuse patient.[facility]In the event this information is protected by the Federal Confidentiality of Alcohol and Drug Abuse Patient Records regulations: The Federal rules restrict any use of the information to criminally investigate or prosecute any alcohol or drug abuse patient.[facility]In the event this information is protected by the Federal Confidentiality of Alcohol and Drug Abuse Patient Records regulations: The Federal rules restrict any use of the information to criminally investigate or prosecute any alcohol or drug abuse patient.[facility]In the event this information is protected by the Federal Confidentiality of Alcohol and Drug Abuse Patient Records regulations: The Federal rules restrict any use of the information to criminally investigate or prosecute any alcohol or drug abuse patient.[facility]In the event this information is protected by the Federal Confidentiality of Alcohol and Drug Abuse Patient Records regulations: The Federal rules restrict any use of the information to criminally investigate or prosecute any alcohol or drug abuse patient.[facility]In the event this information is protected by the Federal Confidentiality of Alcohol and Drug Abuse Patient Records regulations: The Federal rules restrict any use of the information to criminally investigate or prosecute any alcohol or drug abuse patient.[facility]In the event this information is protected by the Federal Confidentiality of Alcohol and Drug Abuse Patient Records regulations: The Federal rules restrict any use of the information to criminally investigate or prosecute any alcohol or drug abuse patient.[facility]In the event this information is protected by the Federal Confidentiality of Alcohol and Drug Abuse Patient Records regulations: The Federal rules restrict any use of the information to criminally investigate or prosecute any alcohol or drug abuse patient.[facility]In the event this information is protected by the Federal Confidentiality of Alcohol and Drug Abuse Patient Records regulations: The Federal rules restrict any use of the information to criminally investigate or prosecute any alcohol or drug abuse patient.[facility]In the event this information is protected by the Federal Confidentiality of Alcohol and Drug Abuse Patient Records regulations: The Federal rules restrict any use of the information to criminally investigate or prosecute any alcohol or drug abuse patient.[facility]In the event this information is protected by the Federal Confidentiality of Alcohol and Drug Abuse Patient Records regulations: The Federal rules restrict any use of the information to criminally investigate or prosecute any alcohol or drug abuse patient.[facility]In the event this information is protected by the Federal Confidentiality of Alcohol and Drug Abuse Patient Records regulations: The Federal rules restrict any use of the information to criminally investigate or prosecute any alcohol or drug abuse patient.[facility]In the event this information is protected by the Federal Confidentiality of Alcohol and Drug Abuse Patient Records regulations: The Federal rules restrict any use of the information to criminally investigate or prosecute any alcohol or drug abuse patient.[facility]In the event this information is protected by the Federal Confidentiality of Alcohol and Drug Abuse Patient Records regulations: The Federal rules restrict any use of the information to criminally investigate or prosecute any alcohol or drug abuse patient.[facility]In the event this information is protected by the Federal Confidentiality of Alcohol and Drug Abuse Patient Records regulations: The Federal rules restrict any use of the information to criminally investigate or prosecute any alcohol or drug abuse patient.[facility]In the event this information is protected by the Federal Confidentiality of Alcohol and Drug Abuse Patient Records regulations: The Federal rules restrict any use of the information to criminally investigate or prosecute any alcohol or drug abuse patient.[facility] HospitalIn the event this information is protected by the Federal Confidentiality of Alcohol and Drug Abuse Patient Records regulations: The Federal rules restrict any use of the information to criminally investigate or prosecute any alcohol or drug abuse patient.[facility] HospitalIn the event this information is protected by the Federal Confidentiality of Alcohol and Drug Abuse Patient Records regulations: The Federal rules restrict any use of the information to criminally investigate or prosecute any alcohol or drug abuse patient.[facility] HospitalIn the event this information is protected by the Federal Confidentiality of Alcohol and Drug Abuse Patient Records regulations: The Federal rules restrict any use of the information to criminally investigate or prosecute any alcohol or drug abuse patient.[facility] HospitalIn the event this information is protected by the Federal Confidentiality of Alcohol and Drug Abuse Patient Records regulations: The Federal rules restrict any use of the information to criminally investigate or prosecute any alcohol or drug abuse patient.[facility] HospitalIn the event this information is protected by the Federal Confidentiality of Alcohol and Drug Abuse Patient Records regulations: The Federal rules restrict any use of the information to criminally investigate or prosecute any alcohol or drug abuse patient.[facility] HospitalIn the event this information is protected by the Federal Confidentiality of Alcohol and Drug Abuse Patient Records regulations: The Federal rules restrict any use of the information to criminally investigate or prosecute any alcohol or drug abuse patient.[facility] HospitalIn the event this information is protected by the Federal Confidentiality of Alcohol and Drug Abuse Patient Records regulations: The Federal rules restrict any use of the information to criminally investigate or prosecute any alcohol or drug abuse patient.[facility] HospitalIn the event this information is protected by the Federal Confidentiality of Alcohol and Drug Abuse Patient Records regulations: The Federal rules restrict any use of the information to criminally investigate or prosecute any alcohol or drug abuse patient.[facility] HospitalIn the event this information is protected by the Federal Confidentiality of Alcohol and Drug Abuse Patient Records regulations: The Federal rules restrict any use of the information to criminally investigate or prosecute any alcohol or drug abuse patient.[facility] HospitalIn the event this information is protected by the Federal Confidentiality of Alcohol and Drug Abuse Patient Records regulations: The Federal rules restrict any use of the information to criminally investigate or prosecute any alcohol or drug abuse patient.[facility] HospitalIn the event this information is protected by the Federal Confidentiality of Alcohol and Drug Abuse Patient Records regulations: The Federal rules restrict any use of the information to criminally investigate or prosecute any alcohol or drug abuse patient.[facility] HospitalIn the event this information is protected by the Federal Confidentiality of Alcohol and Drug Abuse Patient Records regulations: The Federal rules restrict any use of the information to criminally investigate or prosecute any alcohol or drug abuse patient.[facility] HospitalIn the event this information is protected by the Federal Confidentiality of Alcohol and Drug Abuse Patient Records regulations: The Federal rules restrict any use of the information to criminally investigate or prosecute any alcohol or drug abuse patient.[facility] HospitalIn the event this information is protected by the Federal Confidentiality of Alcohol and Drug Abuse Patient Records regulations: The Federal rules restrict any use of the information to criminally investigate or prosecute any alcohol or drug abuse patient.[facility] HospitalIn the event this information is protected by the Federal Confidentiality of Alcohol and Drug Abuse Patient Records regulations: The Federal rules restrict any use of the information to criminally investigate or prosecute any alcohol or drug abuse patient.[facility] HospitalIn the event this information is protected by the Federal Confidentiality of Alcohol and Drug Abuse Patient Records regulations: The Federal rules restrict any use of the information to criminally investigate or prosecute any alcohol or drug abuse patient.[facility] HospitalIn the event this information is protected by the Federal Confidentiality of Alcohol and Drug Abuse Patient Records regulations: The Federal rules restrict any use of the information to criminally investigate or prosecute any alcohol or drug abuse patient.[facility] HospitalIn the event this information is protected by the Federal Confidentiality of Alcohol and Drug Abuse Patient Records regulations: The Federal rules restrict any use of the information to criminally investigate or prosecute any alcohol or drug abuse patient.[facility] HospitalIn the event this information is protected by the Federal Confidentiality of Alcohol and Drug Abuse Patient Records regulations: The Federal rules restrict any use of the information to criminally investigate or prosecute any alcohol or drug abuse patient.[facility] HospitalIn the event this information is protected by the Federal Confidentiality of Alcohol and Drug Abuse Patient Records regulations: The Federal rules restrict any use of the information to criminally investigate or prosecute any alcohol or drug abuse patient.[facility] HospitalIn the event this information is protected by the Federal Confidentiality of Alcohol and Drug Abuse Patient Records regulations: The Federal rules restrict any use of the information to criminally investigate or prosecute any alcohol or drug abuse patient.[facility] HospitalIn the event this information is protected by the Federal Confidentiality of Alcohol and Drug Abuse Patient Records regulations: The Federal rules restrict any use of the information to criminally investigate or prosecute any alcohol or drug abuse patient.[facility] HospitalIn the event this information is protected by the Federal Confidentiality of Alcohol and Drug Abuse Patient Records regulations: The Federal rules restrict any use of the information to criminally investigate or prosecute any alcohol or drug abuse patient.[facility] HospitalIn the event this information is protected by the Federal Confidentiality of Alcohol and Drug Abuse Patient Records regulations: The Federal rules restrict any use of the information to criminally investigate or prosecute any alcohol or drug abuse patient.[facility] HospitalIn the event this information is protected by the Federal Confidentiality of Alcohol and Drug Abuse Patient Records regulations: The Federal rules restrict any use of the information to criminally investigate or prosecute any alcohol or drug abuse patient.[facility] HospitalIn the event this information is protected by the Federal Confidentiality of Alcohol and Drug Abuse Patient Records regulations: The Federal rules restrict any use of the information to criminally investigate or prosecute any alcohol or drug abuse patient.[facility] HospitalIn the event this information is protected by the Federal Confidentiality of Alcohol and Drug Abuse Patient Records regulations: The Federal rules restrict any use of the information to criminally investigate or prosecute any alcohol or drug abuse patient.[facility] HospitalIn the event this information is protected by the Federal Confidentiality of Alcohol and Drug Abuse Patient Records regulations: The Federal rules restrict any use of the information to criminally investigate or prosecute any alcohol or drug abuse patient.[facility] HospitalIn the event this information is protected by the Federal Confidentiality of Alcohol and Drug Abuse Patient Records regulations: The Federal rules restrict any use of the information to criminally investigate or prosecute any alcohol or drug abuse patient.[facility] HospitalIn the event this information is protected by the Federal Confidentiality of Alcohol and Drug Abuse Patient Records regulations: The Federal rules restrict any use of the information to criminally investigate or prosecute any alcohol or drug abuse patient.[facility] Reason for Visit (unrecogniz ed section and content) Reason Comments Results Reason Comments Insurance Authorization Reason Onset Date Comments Refill Request 10/02/2021 Reason Comments Physical Therapy Specialty Diagnoses / Procedures Referred By Contac t Referred To Contact [facility] Diagnoses Benign paroxysmal positional vertigo, unspecified laterality Procedures CONSULT TO PHYSICAL THERAPY PHYSICAL THERAPY EVALUATION HIGH COMPLEX 45 MINS Older, [place], [employer] [address] [place] [address] [facility] [address] [place] [address] Referral ID Status Reason Start Date Expiration Date Visits Requested Visits Authorized [id number] Authorized PCP Requested Referral Auto-Generate d Referral 09/22/2021 09/22/2022 99 99 Reason Comments Prescription Refills Reason Onset Date Comments Refill Request 10/07/2021 Refill Request 10/14/2021 Reason Comments Consult Reason Comments [employer] - Other Reason Onset Date Comments Refill Request 10/26/2021 Reason Comments 11-04-2021 Colon Alves Reason Comments Patient Question Reason Comments Procedure Follow Up EGD completed on 10/25 Reason Comments Follow Up Colonoscopy Reason Comments Patient Update Reason Comments Established Patient Follow Up Nail Check Reason Comments 4 month follow up Reason Comments Insulin Dependent Diabetes Mellitus Reason Onset Date Comments Refill Request 01/08/2022 Reason Comments Flank Pain right x 2 weeks Reason Comments Medication Problem Reason Onset Date Comments Refill Request 01/20/2022 Reason Onset Date Comments Refill Request 01/26/2022 Reason Onset Date Comments Refill Request 01/29/2022 Reason Comments Floaters Right Eye Swelling Around Right Eye Lower right li d Reason Comments Toe Pain (Toe) R foot great toe veronika n after procedure (12/15) x1 week Reason Comments Faxed to wound center Reason Comments Wound Check Right great toe Reason Comments Wound Check Right great and 2nd toe wounds Reason Comments Vitreous Floaters Follow Up Bilateral Diabetes Last HgbA1c was 5.7 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, Severe Stage Glaucomatous Optic Atrophy Bilateral Reason Comments Wound Check right toes Reason Onset Date Comments 4 month follow-up Immunizations 04/27/2022 Flu vaccination Reason Comments Dexcom Download Reason Comments Blood Sugar Reading Dexcom Reason Comments Proliferative Diabetic Retinopathy Follo w Up Reason Comments Wound Check R 2nd toe Reason Comments Wound Check Right great and seco nd toe Reason Onset Date Comments Refill Request 06/01/2022 Reason Comments Established Patient Ulcer Reason Comments Refill Request Reason Comments 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 Diabetes Last HgbA1c was 5.7 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 Reason Onset Date Comments Refill Request 07/16/2022 Reason Comments Blood Sugar Reading Freestyle Dianne 2 re port Reason Onset Date Comments Refill Request 08/23/2022 Dorzolamide and Timolol Reason Comments [facility] Reason Comments Medication Problem Insurance Authorization Reason Comments Established Patient Diabetic Foot Check Reason Onset Date Comments Refill Request 09/21/2022 Reason Comments Proliferative Diabetic Retinopathy Follo w Up OU Reason Comments Follow Up Stage 3B CKD Reason Comments F/U 6 months Reason Onset Date Comments Refill Request 12/10/2022 Reason Comments [employer] [email or web address] Reason Comments Follow Up Reason Comments Established Patient Follow Up Pain Reason Comments [facility] REQUEST FOR MOST REC ENT OFFICE NOTE Reason Comments Primary Open Angle Glaucoma Follow Up Reason Comments Visual Field Testing Reason Onset Date Comments Refill Request 04/26/2023 Reason Comments Medicare Wellness Exam Reason Comments Sore Throat ST, runny nose and f ever x 4 days Care Teams (unrecognized sec tion and content) Research Investigator Relationship Specialty Start Date End Date Jesse Glover MD [address] [facility] [place] [address] PCP - General 08/05/08 Fabian Espana MD [address] [place] [address] Orthopedics 09/29/20 Research Investigator Relationship Specialty Start Date End Date Jesse Glover MD [address] [facility] [place] [address] PCP - General 08/05/08 Fabian Espana MD [address] [place] [address] Orthopedics 09/29/20 Research Investigator Relationship Specialty Start Date End Date Jesse Glover MD [address] [facility] [place] [address] PCP - General 08/05/08 Fabian Espana MD [address] [place] [address] Orthopedics 09/29/20 Research Investigator Relationship Specialty Start Date End Date Jesse Glover MD [address] [facility] [place] [address] PCP - General 08/05/08 Fabian Espana MD [address] [place] [address] Orthopedics 09/29/20 Research Investigator Relationship Specialty Start Date End Date Jesse Glover MD [address] [facility] [address] PCP - General 08/05/08 Fabian Espana MD [address] [place] [address] Orthopedics 09/29/20 Research Investigator Relationship Specialty Start Date End Date Jesse Glover MD [address] [facility] [address] PCP - General 08/05/08 Fabian Espana MD [address] [place] [address] Orthopedics 09/29/20 Research Investigator Relationship Specialty Start Date End Date Jesse Glover MD [address] [place] [address] PCP - General 08/05/08 Fabian Espana MD [address] [place] [address] Orthopedics 09/29/20 Research Investigator Relationship Specialty Start Date End Date Jesse Glover MD [address] [facility] [address] PCP - General 08/05/08 Fabian Espana MD [address] [place] [address] Orthopedics 09/29/20 Research Investigator Relationship Specialty Start Date End Date Jesse Glover MD [address] [place] [address] PCP - General 08/05/08 Fabian Espana MD [address] [place] [address] Orthopedics 09/29/20 Research Investigator Relationship Specialty Start Date End Date Jesse Glover MD [address] [facility] [address] PCP - General 08/05/08 Fabian Espana MD [address] [place] [address] Orthopedics 09/29/20 Research Investigator Relationship Specialty Start Date End Date Jesse Glover MD [address] [facility] [address] PCP - General 08/05/08 Fabian Espana MD [address] [place] [address] Orthopedics 09/29/20 Research Investigator Relationship Specialty Start Date End Date Jesse Glover MD [address] [facility] [address] PCP - General 08/05/08 Fabian Espana MD [address] [place] [address] Orthopedics 09/29/20 Research Investigator Relationship Specialty Start Date End Date Jesse Glover MD [address] [place] [address] PCP - General 08/05/08 Fabian Espana MD [address] [place] [address] Orthopedics 09/29/20 Research Investigator Relationship Specialty Start Date End Date Jesse Glover MD [address] [facility] [address] PCP - General 08/05/08 Fabian Espana MD [address] [place] [address] Orthopedics 09/29/20 Research Investigator Relationship Specialty Start Date End Date Jesse Glover MD [address] [facility] [address] PCP - General 08/05/08 Fabian Espana MD [address] [place] [address] Orthopedics 09/29/20 Research Investigator Relationship Specialty Start Date End Date Jesse Glover MD [address] [facility] [address] PCP - General 08/05/08 Fabian Espana MD [address] [place] [address] Orthopedics 09/29/20 Research Investigator Relationship Specialty Start Date End Date Jesse Glover MD [address] [facility] [address] PCP - General 08/05/08 Fabian Espana MD [address] [place] [address] Orthopedics 09/29/20 Research Investigator Relationship Specialty Start Date End Date Jesse Glover MD [address] [place] [address] PCP - General 08/05/08 Fabian Espana MD [address] [place] [address] Orthopedics 09/29/20 Research Investigator Relationship Specialty Start Date End Date Jesse Glover MD [address] [facility] [address] PCP - General 08/05/08 Fabian Espana MD [address] [place] [address] Orthopedics 09/29/20 Research Investigator Relationship Specialty Start Date End Date Jesse Glover MD [address] [facility] [address] PCP - General 08/05/08 Fabian Espana MD [address] [place] [address] Orthopedics 09/29/20 Research Investigator Relationship Specialty Start Date End Date Jesse Glover MD [address] [facility] [address] PCP - General 08/05/08 Fabian Espana MD [address] [place] [address] Orthopedics 09/29/20 Research Investigator Relationship Specialty Start Date End Date Jesse Glover MD [address] [facility] [address] PCP - General 08/05/08 Fabian Espana MD [address] [place] [address] Orthopedics 09/29/20 Research Investigator Relationship Specialty Start Date End Date Jesse Glover MD [address] [place] [address] PCP - General 08/05/08 Fabian Espana MD [address] [place] [address] Orthopedics 09/29/20 Research Investigator Relationship Specialty Start Date End Date Jesse Glover MD [address] [place] [address] PCP - General 08/05/08 Fabian Espana MD [address] [place] [address] Orthopedics 09/29/20 Research Investigator Relationship Specialty Start Date End Date Jesse Glover MD [address] [facility] [address] PCP - General 08/05/08 Fabian Espana MD [address] [place] [address] Orthopedics 09/29/20 Research Investigator Relationship Specialty Start Date End Date Jesse Glover MD [address] [facility] [address] PCP - General 08/05/08 Fabian Espana MD [address] [place] [address] Orthopedics 09/29/20 Research Investigator Relationship Specialty Start Date End Date Jesse Glover MD [address] [place] [address] PCP - General 08/05/08 Fabian Espana MD [address] [place] [address] Orthopedics 09/29/20 Research Investigator Relationship Specialty Start Date End Date Jesse Glover MD [address] [facility] [address] PCP - General 08/05/08 Fabian Espana MD [address] [place] [address] Orthopedics 09/29/20 Research Investigator Relationship Specialty Start Date End Date Jesse Glover MD [address] [facility] [address] PCP - General 08/05/08 Fabian Espana MD [address] [place] [address] Orthopedics 09/29/20 Research Investigator Relationship Specialty Start Date End Date Jesse Glover MD [address] [facility] [address] PCP - General 08/05/08 Fabian Espana MD [address] [place] [address] Orthopedics 09/29/20 Research Investigator Relationship Specialty Start Date End Date Jesse Glover MD [address] [facility] [address] PCP - General 08/05/08 Fabian Espana MD [address] [place] [address] Orthopedics 09/29/20 Research Investigator Relationship Specialty Start Date End Date Jesse Glover MD [address] [place] [address] PCP - General 08/05/08 Fabian Espana MD [address] [place] [address] Orthopedics 09/29/20 Research Investigator Relationship Specialty Start Date End Date Jesse Glover MD [address] [place] [address] PCP - General 08/05/08 Fabian Espana MD [address] [place] [address] Orthopedics 09/29/20 Research Investigator Relationship Specialty Start Date End Date Jesse Glover MD [address] [place] [address] PCP - General 08/05/08 Fabian Espana MD [address] [place] [address] Orthopedics 09/29/20 Research Investigator Relationship Specialty Start Date End Date Jesse Glover MD [address] [place] [address] PCP - General 08/05/08 Fabian Espana MD [address] [address] Orthopedics 09/29/20 Research Investigator Relationship Specialty Start Date End Date Jesse Glover MD [address] [place], [place] [address] PCP - General 08/05/08 Fabian Espana MD [address] [place] [address] Orthopedics 09/29/20 Research Investigator Relationship Specialty Start Date End Date Jesse Glover MD [address] [place] [address] PCP - General 08/05/08 Fabian Espana MD [address] [place] [address] Orthopedics 09/29/20 Research Investigator Relationship Specialty Start Date End Date Jesse Glover MD [address] [place] [address] PCP - General 08/05/08 Fabian Espana MD [address] [address] Orthopedics 09/29/20 Research Investigator Relationship Specialty Start Date End Date Jesse Glover MD [address] [place], [place] [address] PCP - General 08/05/08 Fabian Espana MD [address] [address] Orthopedics 09/29/20 Research Investigator Relationship Specialty Start Date End Date Jesse Glover MD [address] [place], [place] [address] PCP - General 08/05/08 Fabian Espana MD [address] [place] [address] Orthopedics 09/29/20 Research Investigator Relationship Specialty Start Date End Date Jesse Glover MD [address] [place], [place] [address]39[address] PCP - General 08/05/08 Fabian Espana MD [address] [place] [address] Orthopedics 09/29/20 FOR RECORDS PERTAINING TO PATIENTS WHO ARE OR HAVE BEEN ENROLLED IN A CHEMICAL DEPENDENCY/SUBSTANCEABUSE PROGRAM, SOME INFORMATION MAY BE OMITTED. This clinical summary was aggregated from multiple sources. Caution should be exercised in using it in the provision of clinical care. This summary normalizes information from multiple sources, and as a consequence, information in this document may materially change the coding, format and clinical context of patient data. In addition, data may be omitted in some cases. CLINICAL DECISIONS SHOULD BE BASED ON THE PRIMARY CLINICAL RECORDS. [employer] provides no warranty or guarantee of the accuracy or completeness of information in this document.
== END | disposition home or self-care (01) ==
LOC: LABSPEC 14:57
PROVIDERS: PCP Internal Medicine; Referring Provider Urology; Visit Provider Urology
DX: R30.0 Dysuria (principal)
CPT/HCPCS: 87086; 87088

== ENCOUNTER → 2024-07-12 | Outpatient (CLI) | payer MEDICARE, OTHER, SELFPAY | END | disposition home or self-care (01) | PROVIDERS: PCP Internal Medicine; Referring Provider Urology; Visit Provider Urology | DX: Z12.5 Encounter for screening for malignant neoplasm of prostate (principal) | CPT/HCPCS: 36415; 84153; G0103 ==

== ENCOUNTER → 2025-05-28 | Outpatient (CLI) | payer MEDICARE, OTHER, SELFPAY ==
--- NOTE | 2025-05-28 15:07 | CT_ITS ---
PROCEDURE: CHEST WITHOUT CONTRAST 05/28/2025 REASON FOR EXAM: Chest and back pain TECHNIQUE: Chest CT without contrast. Coronal and Sagittal reconstruction series were provided. One or more dose reduction techniques were used (e.g., Automated exposure control, adjustment of the mA and/or kV according to patient size, use of iterative reconstruction technique RADIATION DOSE SUMMARY: CTDlvol: 16.9 mGy DLP: 519.28 mGycm COMPARISON: None FINDINGS: The lung windows show the lungs to be normally expanded. Increased interstitial markings are noted in a diffuse pattern in both lung daniel suggesting interstitial edema/pulmonary vascular congestion. However, a diffuse inflammatory process could have a similar appearance. No organized infiltrate, or effusion, no suspicious noncalcified mass or nodule. Soft tissue windows show a normal-appearing thyroid gland. No suspicious axillary mediastinal or perihilar adenopathy. The thoracic aorta tapers normally. No evidence of aneurysm. I can not assess for dissection as no IV contrast was administered. There are punctate coronary artery calcifications. Limited cuts through the upper abdomen do not show a suspicious abnormality. Bony structures show degenerative change CT/Chest without Contrast IMPRESSION: Coronary artery calcification (CAC) is is present No CT evidence of thoracic aortic aneurysm Increased interstitial markings in both lung daniel suggest either pulmonary va scular congestion or a diffuse inflammatory process. Follow-up recommended to ensure resolution No organized infiltrate or effusion No suspicious adenopathy Degenerative bony changes Reading Location: [place] [id number]
== END | disposition home or self-care (01) ==
LOC: CT 14:55
PROVIDERS: PCP Internal Medicine; Referring Provider Internal Medicine Cardiovascular Disease; Visit Provider Internal Medicine Cardiovascular Disease
DX: I71.20 Thoracic aortic aneurysm, without rupture, unspecified (principal)
CPT/HCPCS: 71250

== ENCOUNTER → 2025-06-14 | Outpatient (CLI) | payer MEDICARE, OTHER, SELFPAY ==
--- NOTE | 2025-06-14 06:55 | ECHOCS_ITS ---
Reason For Study Reason For Study: DYSPNEA/SOB Procedure This was a 2D Doppler, Color Flow transthoracic echocardiogram. The patient is in sinus rhythm. The study was technically difficult. Contrast injection was performed. Exam performed in department. Left Ventricle Normal LV size. Mild concentric left ventricular hypertrophy. The left ventricular ejection fraction is 70 %. Stage 1 diastolic dysfunction. Right Ventricle Normal right ventricle. Atria The left and right atria are normal. Mitral Valve Trivial mitral valve insufficiency. Tricuspid Valve Normal tricuspid valve. Aortic Valve Trisinus/trileaflet aortic valve. Pulmonic Valve Trivial pulmonic valve insufficiency. Great Vessels Normal sized aortic root. Pericardium/Pleural No pericardial effusion. Medication Diluted definity 1.5ml given slow IV push to enhance endocardial definition. MMode/2D Measurements & Calculations LVIDd: 4.0 cm IVSd: 1.3 cm asc Aorta Diam: 3.4 cm LVIDs: 2.5 cm LVPWd: 1.2 cm FS: 38.3 % LAV(MOD-bp): 23.4 ml LVAd ap4: 28.1 cm2 LVAd ap2: 22.4 cm2 LAV(MOD-bp) Indexed: 11.1 ml/m2 LVLd ap4: 7.6 cm LVLd ap2: 7.7 cm LAV(MOD-sp2): 23.0 ml EDV(MOD-sp4): 84.4 ml EDV(MOD-sp2): 54.8 ml LAV(MOD-sp4): 23.0 ml EDV(sp4-el): 87.9 ml EDV(sp2-el): 55.7 ml LVAs ap4: 12.7 cm2 LVAs ap2: 9.4 cm2 LVLs ap4: 5.7 cm LVLs ap2: 5.9 cm ESV(MOD-sp4): 24.3 ml ESV(MOD-sp2): 12.6 ml ESV(sp4-el): 24.1 ml ESV(sp2-el): 12.8 ml EF(MOD-sp4): 71.3 % EF(MOD-sp2): 77.0 % EF(sp4-el): 72.6 % SV(MOD-sp4): 60.1 ml SV(MOD-sp2): 42.2 ml EDV(MOD-bp): 67.8 ml SI(MOD-sp4): 28.5 ml/m2 SI(MOD-sp2): 20.0 ml/m2 ESV(MOD-bp): 17.7 ml EF(MOD-bp): 73.8 % SV(sp4-el): 63.8 ml LA A4 area: 11.6 cm2 LA dimension(2D): 2.7 cm RA A4 area: 10.9 cm2 TAPSE: 1.5 cm Time Measurements MV dec time: 0.32 sec Doppler Measurements & Calculations MV E max satish: 58.7 cm/sec Lat Peak E' Satish: 10.1 cm/sec Med Peak E' Satish: 5.0 cm/sec MV A max satish: 81.6 cm/sec E/E' lat: 5.8 E/E' med: 11.7 MV E/A: 0.72 MV dec slope: 185.8 cm/sec2 Ao V2 max: 107.7 cm/sec LV V1 max: 92.0 cm/sec Ao max P.6 mmHg LV V1 max P.4 mmHg Ao V2 mean: 76.2 cm/sec LV V1 mean P.1 mmHg Ao mean P.6 mmHg LV V1 mean: 69.2 cm/sec Ao V2 VTI: 23.8 cm LV V1 VTI: 20.3 cm AV (velocity ratio): 0.85 ECHO/Echo Complete W/ Contrast Interpretation Summary Mild concentric left ventricular hypertrophy. The left ventricular ejection fraction is 70 %. Stage 1 diastolic dysfunction. The study was technically difficult. Ordering Physician: Arik Mayo Referring Physician: Jesse Glover Performed By: Lyudmila Ashford RDCS
--- OUTSIDE RECORDS SUMMARY | 2025-06-14 07:02 | XMS RPT_ITS | CCD ---
Author Organization [facility] Care Team Providers Care Injection Press Operator Name Role Phone FEMI PIZARRO Unavailable Unavailable FEMI PIZARRO Unavailable Unavailable Jesse Glover Unavailable Unavailable MINA PIZARRONETH Unavailable Unavailable FEMI PIZARRO Unavailable Unavailable Jesse Glover Unavailable Unavailable Jesse Glover MD Primary Care Provider Fabian Espana MD Unavailable Dr. Jesse Glover Primary Care Provider Dr. Jonnie Beavers Attending Provider Dr. Jonnie Beavers Other Provider Jesse Glover MD Primary Care Provider Fabian Espana MD Unavailable Fabian Espana MD Unavailable Jesse Glover MD Primary Care Provider Fabian Espana MD Unavailable [phone] JESSE GLOVER Primary Care Unavailable HAYDEE CHRISTINA Referring Unavailable JESSE GLOVER Primary Care Unavailable JESSE GLOVER Primary Care Unavailable BENSON DOWNS Attending Unavailable DAMIEN ANDERSON Referring Unavailable JESSE GLOVER Primary Care Unavailable WILMA, JESSE Lara Primary Care Unavailable WILMA, JESSE Lara Primary Care Unavailable MAE CAMPBELL Referring Unavailable WILMA, JESSE Lara Primary Care Unavailable WILMA, JESSE Lara Primary Care Unavailable Jesse Glover MD Primary Care Provider [phone] Ke MOREL.RISK AND COMPLIANCE ANALYTICS DIRECTOR, America M Unavailable Provider, None Primary Care Unavailable Julio Chacon Attending Unavailable Julio Chacon Admitting Unavailable AMERICA JOHNSTON Attending Unavailable GLOVER, CASPER Primary Care Unavailable TESTRAKE, MARSHA Attending Unavailable TESTRAKE, MARSHA Referring Unavailable GLOVER, CASPER Primary Care Unavailable RADHA COHN Attending Unavailable GLOVER, CASPER Primary Care Unavailable GLOVER, CASPER Referring Unavailable GLOVER, CASPER Primary Care Unavailable INOCENCIO REYNOLDS Attending Unavailable AGUSTINHENGERA ANTHONY Referring Unavailable GLOVER, CASPER Primary Care Unavailable MELINDA AHMADI Attending Unavailable GLOVER, CASPER Referring Unavailable GLOVER, CASPER Primary Care Unavailable GERA GLEZ Referring Unavailable GLOVER, CASPER Primary Care Unavailable INOCENCIO REYNOLDS Attending Unavailable GERA GLEZ Referring Unavailable GLOVER, CASPER Primary Care Unavailable TESTRAKE, MARSHA Attending Unavailable TESTRAKE, MARSHA Referring Unavailable GLOVER, CASPER Primary Care Unavailable SHERWIN HAYES Attending Unavailable GLOVER, CASPER Primary Care Unavailable SHERWIN HAYES Referring Unavailable GLOVER, CASPER Primary Care Unavailable HAYDEE CHIRSTINA Attending Unavailable GLOVER, CASPER Primary Care Unavailable GLOVER, CASPER Primary Care Unavailable RADHA COHN Attending Unavailable TESTRAKE, MARSHA Attending Unavailable TESTRAMELVIN, MARSHA Referring Unavailable GLOVER, CASPER Primary Care Unavailable HAYDEE CHRISTINA Referring Unavailable GLOVER, CASPER Primary Care Unavailable HAYDEE CHRISTINA Attending Unavailable GLOVER, CASPER Primary Care Unavailable TESTRAKE, MARSHA Attending Unavailable TESTRAKE, MARSHA Referring Unavailable GLOVER, CASPER Primary Care Unavailable ADIA FINNEGAN Attending Unavailable ADIA FINNEGAN Referring Unavailable GLOVER, CASPER Primary Care Unavailable TESTRAKE, MARSHA Attending Unavailable TESTRAKE, MARSHA Referring Unavailable GLOVER, CASPER Primary Care Unavailable INOCENCIO REYNOLDS Attending Unavailable GERA GLEZ Referring Unavailable GLOVER, CASPER Primary Care Unavailable TERESSA MARRERO Referring Unavailable GLOVER, CASPER Primary Care Unavailable GLOVER, JESSE Lara Attending Unavailable GERA GLEZ Referring Unavailable GLOVER, JESSE Lara Primary Care Unavailable TESTRAKE, MARSHA Referring Unavailable GLOVER, CASPER Primary Care Unavailable TESTRAKE, MARSHA Attending Unavailable TESTRAKE, MARSHA Referring Unavailable GLOVER, JESSE Lara Primary Care Unavailable CIULLIHAYDEE Referring Unavailable GLOVER, JESSE Lara Primary Care Unavailable CHANDA PHILLIPS Attending Unavailable GLOVER, CASEPR Primary Care Unavailable TESTRAKE, MARSHA Attending Unavailable TESTRAKE, MARSHA Referring Unavailable GLOVER, JESSE Lara Primary Care Unavailable LALITRADHA Attending Unavailable LALITRADHA Referring Unavailable GLOVER, CASPER Primary Care Unavailable CIULLIHAYDEE Referring Unavailable GLOVER, CASPER Primary Care Unavailable CIULLIHAYDEE Attending Unavailable CIULLIHAYDEE Referring Unavailable GLOVER, JESSE Lara Primary Care Unavailable CIULLHAYDEE Zamora Referring Unavailable GLOVER, CASPER Primary Care Unavailable GLOVER, CASPER Attending Unavailable GLOVER, JESSE Lara Primary Care Unavailable GLOVER, JESSE Lara Primary Care Unavailable TESTRAKE, MARSHA Attending Unavailable TESTRAKE, MARSHA Referring Unavailable GLOVER, JESSE Lara Primary Care Unavailable CIULLIHAYDEE Referring Unavailable GLOVER, JESSE Lara Primary Care Unavailable GLOVER, CASPER Primary Care Unavailable TESTRAKE, MARSHA Attending Unavailable TESTRAKE, AMRSHA Referring Unavailable GLOVER, JESSE Lara Primary Care Unavailable TESTRAKE, MARSHA Attending Unavailable TESTRAKE, MARSHA Referring Unavailable GLOVER, CASPER Primary Care Unavailable CIULLIHAYDEE Referring Unavailable GLOVER, CASPER Primary Care Unavailable TESTRAKE, MARSHA Attending Unavailable TESTRAKE, MARSHA Referring Unavailable GLOVER, CASPER Primary Care Unavailable CIULLIHAYDEE Referring Unavailable GLOVER, CASPER Primary Care Unavailable Glover, Jesse Primary Care Unavailable Marcellus Lucia Attending Unavailable KhariMarcellus chaudhary Referring Unavailable Gael, Arik Referring Unavailable Glover, Jesse Primary Care Unavailable GaelArik Attending Unavailable Gael, Arik Referring Unavailable Glover, Jesse Primary Care Unavailable Gael, Arik Attending Unavailable Arik Mayo Attending Unavailable Jesse Glover Primary Care Unavailable Jesse Glover Referring Unavailable Allergies Allergy Classification Reported Allergen(s) Allergy Type Date of Onset Reaction(s) Facility (20 sources) cortisone; Translations: [CORTISONE] Drug Allergy 9 Other: See Comments [facility] Repository (20 sources) lisinopril; Translations: [LISINOPRIL] Drug Allergy 9 Intolerance [facility] Repository (20 sources) Latex; Translations: [LATEX] Drug Allergy 5 Other: See Comments [facility] Medications Current Medications Medication Drug Class(es) Dates Sig (Normalized) Sig (Original) amoxicillin 875 mg / clavulanate 125 mg oral tablet (2 sources) Penicillin-class Antibacterial Start: 06-19-2023 End: 06-26-2023 take 1 tablet by mouth twice daily amoxicillin-clavul anate potassium (AUGMENTIN) 875-125 mg per tablet Indications: Bacterial sinusitis Take 1 tablet by mouth two times a day for 7 days. 14 tablet 0 06/19/2023 06/26/2023 Active Comment on above: Take 1 tablet by [facility] two times a day for 7 days. aspirin 81 mg delayed release oral tablet (20 sources) Platelet Aggregation Inhibitor, Nonsteroidal Anti-inflammatory Drug Start: 03-07-2009 aspirin(ECOTRIN LOW STRENGTH 81 MG TAB) Indications: Type II or unspecified type diabetes mellitus without mention of complication, uncontrolled Take by mouth. 0 03/07/2009 Active Comment on above: Take one(1) tablet d aily. Take by mouth. benoxinate hydrochloride 4 mg/ml / fluorescein sodium 3 mg/ml ophthalmic solution (5 sources) Diagnostic Dye Start: 09-06-2024 End: 09-06-2024 fluorescein-benoxi tomas 0.3-0.4 % 1 Drop (FLURESS) Start: 09-06-2024 End: 09-06-2024 1 Drop, BOTH EYES, DIRECT ED, Starting on Juanita 09/06/24 at 1000, Until Juanita 09/06/24 at 2159, Administer for applanation tonometry. In the event of a Fluress shortage, administer 1 drop of Kelly-Fluor into both eyes as directed for applanation tonometry., [facility] MED ORDERS Start: 05-05-2022 End: 05-05-2022 fluorescein-benoxinate 0.25- 0.4 % 1 Drop (FLURESS) Start: 04-21-2022 End: 04-21-2022 fluorescein-benoxinate 0.25- 0.4 % 1 Drop (FLURESS) Start: 02-23-2022 End: 02-23-2022 fluorescein-benoxinate 0.25- 0.4 % 1 Drop (FLURESS) Blood Pressure Monitor (BLOOD PRESSURE KIT) (20 sources) Start: 03-05-2024 Blood Pressure Monitor (BLOOD PRESSURE KIT) Indications: Primary hypertension 1 Each by VIA DEVICE route once daily. Please check your blood pressure once per day so we can see if we need to increase medications 1 Kit 03/05/2024 Active brimonidine tartrate 2 mg/ml ophthalmic solution (20 sources) alpha-Adrenergi c Agonist Start: 12-05-2024 End: 03-05-2025 take 1 drop(s) into the eye(s) three times daily brimonidine (ALPHAGAN) 0.2 % ophthalmic solution Use 1 drop in both eyes three times a day. 15 mL 3 12/05/2024 Active Start: 06-23-2023 End: 10-10-2023 take 1 drop(s) into the eye(s) twice daily brimonidine (ALPHAGAN) 0.2 % ophthalmic solution Use 1 Drop in both eyes two times a day. 5 mL 5 06/23/2023 10/10/2023 Discontinued (Course of therapy completed) Start: 01-21-2017 End: 04-26-2019 Brimonidine Discontinued 1 D RP EACH EYE TWICE A DAY January 20, 2017 11:00pm April 26, 2019 3:15pm Comment on above: Use 1 Drop in both e yes two times a day. cephalexin 500 mg oral capsule (14 sources) Cephalosporin Antibacterial Start: End: take 500 mg by mouth every six hours Cephalexin Active 500 MG PO EVERY 6 HOURS 40 April 16, 2022 11:00pm Comment on above: Take 500 mg by mouth every 6 hours. cholecalciferol 0.025 mg oral capsule (20 sources) Vitamin D Start: 019 take 1000 [IU] by mouth once daily Cholecalciferol (Vitamin D3) Active 1000 UNIT PO DAILY April 25, 2019 11:00pm Start: 07-31-2018 cholecalcifero l (VITAMIN D) 1,000 unit tab tablet Indications: Screening for genitourinary condition , CKD (chronic kidney disease) stage 3, GFR 30-59 ml/min ([facility]) , Type 2 DM with CKD stage 3 and hypertension ([facility]) , Hypertension goal BP (blood pressure) , Mixed hyperlipidemia , Type 2 diabetes, uncontrolled, with retinopathy , Vitreous hemorrhage, unspecified laterality ([facility]) , Other proteinuria , BPH with obstruction/lower urinary tract symptoms Take 1 tablet by mouth once daily. 30 tablet 3 07/31/2018 Active Comment on above: Take 1 tablet by once daily. cloNIDine hydrochloride 0.2 mg oral tablet (8 sources) Central alpha-2 Adrenergic Agonist Start: 09-13-2020 take 0.2 mg by mouth twice daily Clonidine Hcl Active 0.2 MG PO TWICE A DAY September 12, 2020 11:00pm Start: 01-21-2017 End: 08-23-2019 take 0.2 mg by mouth twice daily Clonidine Hcl Discontinued 0.2 MG PO TWICE A DAY January 20, 2017 11:00pm August 23, 2019 2:22pm diazePAM 5 mg oral tablet (4 sources) Benzodiazepine Start: 10-02-2020 take 5 mg by mouth three times daily Diazepam Active 5 MG PO DIRECTED 15 October 01, 2020 11:00pm 1/2-one three times a day for five days diclofenac sodium 0.01 mg/mg topical gel (4 sources) Nonsteroidal Anti-inflammatory Drug Start: 10-01-2020 Diclofenac Sodium Active 1 APPLIC TOPICAL 4 TIMES DAILY NEEDED September 30, 2020 11:00pm dorzolamide 20 mg/ml / timolol 5 mg/ml ophthalmic solution (20 sources) Carbonic Anhydrase Inhibitor, beta-Adrenergic Tiffany Start: 05-09-2024 End: 05-09-2024 take 1 drop(s) into the eye(s) twice daily dorzolamide-timol ol (COSOPT) 22.3-6.8 mg/mL ophthalmic solution Use 1 Drop in both eyes two times a day. 30 mL 11 05/09/2024 Active Start: 04-07-2021 End: 11-21-2022 dorzolamide-timolol (COSOPT) 22.3-6.8 mg/mL ophthalmic solution Use 1 Drop in both eyes twice daily. Use at 8 AM and 4 PM 30 mL 2 08/23/2022 11/21/2022 Active Comment on above: Use 1 Drop in both e yes twice daily. Use at 8 AM and 4 PM empagliflozin 25 mg oral tablet (20 sources) Sodium-Glucose Cotransporter 2 Inhibitor Start: 11-26-2024 End: 11-28-2024 empagliflozin (JARDIANCE) 25 mg tablet Indications: Other proteinuria , Type 2 diabetes mellitus with stage 4 chronic kidney disease, with long-term current use of insulin ([facility]) Take 1 tablet by mouth daily with breakfast. 90 tablet 1 11/28/2024 Active Start: 04-26-2023 End: 12-02-2024 empagliflozin (JARDIANCE) 10 mg tablet Indications: Other proteinuria , Type 2 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 disease, with long-term current use of insulin, unspecified whether stage 3a or 3b CKD (HCC) Take 1 tablet by mouth daily with breakfast. 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 30 tablet 11 02/09/2023 Active Start: 10-14-2021 End: 02-09-2023 take 1 tablet by mouth once daily at breakfast empagliflozin (JARDIANCE) 10 mg tablet Indications: Stage 3b chronic kidney disease (HCC) , Other proteinuria Take 1 tablet by mouth daily with breakfast. 90 tablet 3 10/27/2022 02/09/2023 Discontinued Comment on above: Take 1 tablet by laura th daily with breakfast. Take 1 tablet by laura th daily with breakfast for 7 days. famotidine 20 mg oral tablet (4 sources) Histamine-2 Receptor Antagonist Start: 10-02-2020 take 20 mg by mouth once daily Famotidine Active 20 MG PO DAILY October 01, 2020 11:00pm flash glucose scanning reader (FREESTYLE DAIJA 2 READER) (20 sources) Start: 10-11-2023 flash glucose scanning reader (FREESTYLE DAIJA 2 READER) Indications: Type 2 diabetes mellitus with diabetic polyneuropathy, with long-term current use of insulin ([facility]) Use continuously to monitor glucose. Dx: Type 2 DM - Uncontrolled E11.65 Insulin: Yes 1 Each 10/11/2023 Active Start: 10-11-2023 flash glucose scanning reader (FREESTYLE DAIJA 2 READER) Indications: Type 2 diabetes mellitus with diabetic polyneuropathy, with long-term current use of insulin ([facility]) Use continuously to monitor glucose. Dx: Type 2 DM - Uncontrolled E11.65 Insulin: Yes 1 Each 0 10/11/2023 Active Start: 08-27-2023 End: 10-11-2023 flash glucose scanning reade r (FREESTYLE DAIJA 2 READER) Indications: Type 2 diabetes mellitus with diabetic polyneuropathy, with long-term current use of insulin ([facility]) Use continuously to monitor glucose. Dx: Type 2 DM - Uncontrolled E11.65 Insulin: Yes 1 Each 0 08/27/2023 10/11/2023 Discontinued Start: 08-27-2023 flash glucose scanning reader (FREESTYLE DAIJA 2 READER) Indications: Type 2 diabetes mellitus with diabetic polyneuropathy, with long-term current use of insulin ([facility]) Use continuously to monitor glucose. Dx: Type 2 DM - Uncontrolled E11.65 Insulin: Yes 1 Each 0 08/27/2023 Active Start: 06-23-2023 End: 08-25-2023 flash glucose scanning reade r (FREESTYLE DAIJA 2 READER) Indications: Type 2 diabetes mellitus with diabetic polyneuropathy, with long-term current use of insulin (HCC) Use continuously to monitor glucose. 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, with long-term current use of insulin (HCC) , Type 2 diabetes mellitus with diabetic polyneuropathy, with long-term current use of insulin (HCC) , Type 2 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 disease, with long-term current use of insulin, unspecified whether stage 3a or 3b CKD (HCC) , Hypoglycemia due to type 2 diabetes mellitus (HCC) Use continuously to monitor glucose, IDDM, E 11.42 1 Each 0 02/09/2023 Active Start: 08-13-2022 End: 02-09-2023 flash glucose scanning reade r (FREESTYLE DAIJA 2 READER) Indications: 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, with long-term current use of insulin (HCC) , Type 2 diabetes mellitus with diabetic polyneuropathy, with long-term current use of insulin (HCC) , Type 2 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 disease, with long-term current use of insulin, unspecified whether stage 3a or 3b CKD (HCC) , Hypoglycemia due to type 2 diabetes mellitus (HCC) Use continuously to monitor glucose, IDDM, E 11.42 1 Each 0 08/13/2022 02/09/2023 Discontinued Start: 08-13-2022 flash glucose scanning reader (FREESTYLE DAIJA 2 READER) Indications: 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, with long-term current use of insulin (HCC) , Type 2 diabetes mellitus with diabetic polyneuropathy, with long-term current use of insulin (HCC) , Type 2 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 disease, with long-term current use of insulin, unspecified whether stage 3a or 3b CKD (HCC) , Hypoglycemia due to type 2 diabetes mellitus (HCC) Use one sensor every 14 days, IDDM, E11.42 6 Each 3 06/15/2024 Active Start: 08-13-2022 End: 06-14-2024 flash glucose sensor (FREEST YLE DAIJA 2 SENSOR) kit Indications: 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, with long-term current use of insulin (HCC) , Type 2 diabetes mellitus with diabetic polyneuropathy, with long-term current use of insulin (HCC) , Type 2 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 disease, with long-term current use of insulin, unspecified whether stage 3a or 3b CKD (HCC) , Hypoglycemia due to type 2 diabetes mellitus (HCC) Use one sensor every 14 days, IDDM, E11.42 6 Each 3 08/13/2022 06/14/2024 Discontinued Start: 08-13-2022 flash glucose sensor (FREESTYLE DAIJA 2 SENSOR) kit Indications: 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, with long-term current use of insulin (HCC) , Type 2 diabetes mellitus with diabetic polyneuropathy, with long-term current use of insulin (HCC) , Type 2 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 disease, with long-term current use of insulin, unspecified whether stage 3a or 3b CKD (HCC) , Hypoglycemia due to type 2 diabetes mellitus (HCC) Use one sensor every 14 days, IDDM, E11.42 6 Each 3 08/13/2022 Active Comment on above: Use one sensor every 14 days, IDDM, E11.42 gabapentin 300 mg oral capsule (20 sources) Anti-epileptic Agent Start: 06-05-2024 End: 07-06-2025 take 1 capsule by mouth three times daily gabapentin (NEURONTIN) 300 mg capsule Indications: Type 2 diabetes mellitus with diabetic polyneuropathy, with long-term current use of insulin (HCC) Take 1 capsule by mouth three times a day for 180 days. 270 capsule 1 01/07/2025 07/06/2025 Active Start: 02-14-2024 End: 09-23-2024 take 1 capsule by mouth twice daily gabapentin (NEURONTIN) 300 mg capsule Indications: Type 2 diabetes mellitus with diabetic polyneuropathy, with long-term current use of insulin (HCC) Take 1 capsule by mouth two times a day for 180 days. 180 capsule 1 03/27/2024 06/05/2024 Discontinued Start: 07-18-2023 End: 02-14-2024 take 1 capsule by mouth three times daily gabapentin (NEURONTIN) 300 mg capsule Indications: Type 2 diabetes mellitus with diabetic polyneuropathy, with long-term current use of insulin (HCC) Take 1 capsule by mouth three times a day for 180 days. 270 capsule 1 07/18/2023 02/14/2024 Discontinued Start: 09-14-2020 End: 04-25-2023 take 1 capsule by mouth three times daily gabapentin (NEURONTIN) 300 mg capsule Indications: Type 2 diabetes mellitus with diabetic polyneuropathy, with long-term current use of insulin (HCC) Take 1 capsule by mouth three times daily for 180 days. 270 capsule 1 10/27/2022 Active Start: 09-13-2020 End: 09-14-2020 take 100 mg by mouth twice daily Gabapentin Discontinued 100 MG PO TWICE A DAY September 12, 2020 11:00pm September 14, 2020 7:27am Start: 04-26-2019 End: 08-23-2019 take 200 mg by mouth at bedtime Gabapentin Discontinued 200 MG PO AT BEDTIME April 26, 2019 3:13pm August 23, 2019 2:23pm Start: 01-03-2018 End: 04-26-2019 take 100 mg by mouth at bedtime Gabapentin Discontinued 100 MG PO AT BEDTIME January 02, 2018 11:00pm April 26, 2019 3:15pm Comment on above: Take 1 capsule by mo [facility] three times daily for 180 days. Take 1 capsule by [facility] three times daily for 10 days. Take 1 capsule by [facility] three times a day for 180 days. 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, with long-term current use of insulin (HCC) , Type 2 diabetes mellitus with diabetic polyneuropathy, with long-term current use of insulin ([facility]) , Type 2 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 disease, with long-term current use of insulin, unspecified whether stage 3a or 3b CKD ([facility]) Inject subcutaneously 23 units daily in the AM 15 mL 5 10/31/2024 Active Start: 07-18-2023 End: 10-31-2024 insulin glargine (LANTUS LETI OSTAR U-100 INSULIN) 100 unit/mL (3 mL) Inject subcutaneously 23 units daily in the AM 15 mL 06/12/2024 10/31/2024 Discontinued Start: 10-27-2022 insulin glargi ne (LANTUS SOLOSTAR U-100 INSULIN) 100 unit/mL (3 mL) Indications: Type 2 diabetes mellitus with diabetic polyneuropathy, with long-term current use of insulin ([facility]) Inject subcutaneously 23 units daily in the AM 15 mL 10/27/2022 Active Start: 10-27-2022 insulin glargi ne (LANTUS SOLOSTAR U-100 INSULIN) 100 unit/mL (3 mL) Indications: Type 2 diabetes mellitus with diabetic polyneuropathy, with long-term current use of insulin ([facility]) Inject subcutaneously 23 units daily in the AM 15 mL 10/27/2022 Active Start: 08-13-2022 End: 10-27-2022 insulin glargine (LANTUS LETI OSTAR U-100 INSULIN) 100 unit/mL (3 mL) Indications: 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, with long-term current use of insulin ([facility]) , Type 2 diabetes mellitus with diabetic polyneuropathy, with long-term current use of insulin ([facility]) , Type 2 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 disease, with long-term current use of insulin, unspecified whether stage 3a or 3b CKD (HCC) Inject subcutaneously 23 units daily in the AM 15 mL 5 08/13/2022 10/27/2022 Discontinued Start: 04-27-2022 insulin glargi ne (LANTUS SOLOSTAR U-100 INSULIN) 100 unit/mL (3 mL) Indications: 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, with long-term current use of insulin (HCC) , Type 2 diabetes mellitus with diabetic polyneuropathy, with long-term current use of insulin (HCC) , Type 2 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 disease, with long-term current use of insulin, unspecified whether stage 3a or 3b CKD (HCC) Inject subcutaneously 25 units daily in the AM 15 mL 5 04/27/2022 Active Start: 01-01-2022 End: 04-27-2022 insulin glargine (LANTUS LETI OSTAR U-100 INSULIN) 100 unit/mL (3 mL) Indications: 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 15 mL 5 10/23/2021 01/01/2022 Discontinued (Adjust Sig - Block E-Cancel) Start: 09-14-2020 Insulin Glargi ne Active 20 UNITS SC TWICE A DAY September 13, 2020 11:00pm 1 box of Lantus pens. Start: 04-05-2018 End: 11-07-2019 Insulin Glargine (Lantus Leti ostar U-100 Insulin) 100 unit/mL (3 mL) insulin pen Discontinued 0 SC TWICE A DAY April 04, 2018 11:00pm November 07, 2019 2:17pm 10 U q am, 15 U q pm SC BID; Start: 01-21-2017 End: 04-05-2018 Insulin Glargine Discontinue d 26 UNITS SC AT BEDTIME January 20, 2017 11:00pm April 05, 2018 7:15am Comment on above: Inject subcutaneousl y 25 units daily in the evening. 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, with long-term current use of insulin ([facility]) , Type 2 diabetes mellitus with diabetic polyneuropathy, with long-term current use of insulin ([facility]) , Type 2 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 disease, with long-term current use of insulin, unspecified whether stage 3a or 3b CKD ([facility]) Inject subcutaneously 2 units breakfast, 3 units lunch, 3 units dinner plus SS up to 20 units daily 15 mL 5 10/31/2024 Active Start: 07-18-2023 End: 06-12-2024 insulin lispro (HUMALOG KWIK PEN INSULIN) 100 unit/mL Indications: 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, with long-term current use of insulin ([facility]) , Type 2 diabetes mellitus with diabetic polyneuropathy, with long-term current use of insulin ([facility]) , Type 2 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 disease, with long-term current use of insulin, unspecified whether stage 3a or 3b CKD ([facility]) Inject subcutaneously 2 units breakfast, 3 units lunch, 3 units dinner plus SS up to 20 units daily 15 mL 5 05/31/2024 06/12/2024 Discontinued Start: 10-27-2022 insulin lispro (HUMALOG KWIKPEN INSULIN) 100 unit/mL Indications: Type 2 diabetes mellitus with diabetic polyneuropathy, with long-term current use of insulin ([facility]) Inject subcutaneously TID meals per SS up to 15 units daily 15 mL 5 10/27/2022 Active Start: 01-01-2022 End: 10-27-2022 insulin lispro (HUMALOG KWIK PEN INSULIN) 100 unit/mL Indications: 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, with long-term current use of insulin ([facility]) , Type 2 diabetes mellitus with diabetic polyneuropathy, with long-term current use of insulin ([facility]) , Type 2 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 disease, with long-term current use of insulin, unspecified whether stage 3a or 3b CKD ([facility]) Inject subcutaneously TID meals per SS up to 15 units daily 15 mL 5 04/27/2022 10/27/2022 Discontinued Start: 03-16-2021 End: 01-01-2022 insulin lispro (HUMALOG KWIK PEN INSULIN) 100 unit/mL Inject 4 units breakfast, 6 units lunch, 6 units dinner. Take 1/2 the dose if the sugar is less then 120 15 mL 5 10/26/2021 01/01/2022 Discontinued Start: 10-01-2020 Insulin Lispro Active 6 UNITS SC 3 TIMES DAILY WITH MEALS September 30, 2020 11:00pm Comment on above: Inject 4 units break fast, 6 units lunch, 6 units dinner. Take 1/2 the dose if the sugar is less then 120 Inject subcutaneousl y TID meals per SS up to 15 units daily Inject subcutaneousl y 2 units TID meals plus SS up to 20 units daily latanoprost 0.05 mg/ml ophthalmic solution (20 sources) Prostaglandin Analog Start: 07-22-19 End: 05-09-20 take 1 drop(s) into the eye(s) once daily at bedtime latanoprost (XALATAN) 0.005 % ophthalmic solution INSTILL 1 DROP IN BOTH EYES DAILY AT BEDTIME 7.5 mL 05/09/2024 Active Start: 04-05-2018 Latanoprost Ac tive 1 DRP EACH EYE EVERY EVENING April 04, 2018 11:00pm Comment on above: INSTILL 1 DROP IN JEFFY TH EYES DAILY AT BEDTIME meclizine hydrochloride 25 mg oral tablet (20 sources) Antiemetic Start: 08-07-19 End: 10-16-19 take 1 tablet by mouth every eight hours as needed meclizine (ANTIVERT) 25 mg tab Take 1 tablet by mouth three times a day as needed. 90 tablet 3 10/15/2024 Active Comment on above: Take 1 tablet by laura th three times daily as needed. NIFEdipine 30 mg osmotic 24 hr extended release oral tablet (20 sources) Dihydropyridine Calcium Channel Tiffany Start: 12-07-19 End: 01-27-20 take 1 tablet by mouth once daily in the evening NIFEdipine ER (PROCARDIA XL) 30 mg 24 hr tablet Indications: Essential hypertension Take 1 tablet by mouth every evening. Please take in the pm in addition to the 90mg in the morning for a total of 120mg daily 90 tablet 1 01/07/2025 Active Start: 07-18-2023 End: 01-07-2025 take 1 tablet by mouth once daily NIFEdipine ER (PROCARDIA XL) 90 mg 24 hr tablet Indications: CKD (chronic kidney disease) stage 3, GFR 30-59 ml/min ([facility]) , Secondary hypertension due to renal disease , Mixed hyperlipidemia Take 1 tablet by mouth once daily. 90 tablet 3 06/12/2024 Active Start: 09-24-2020 End: 09-21-2022 NIFEdipine ER (PROCARDIA XL) 90 mg 24 hr tablet Indications: Screening for genitourinary condition , CKD (chronic kidney disease) stage 3, GFR 30-59 ml/min ([facility]) , Type 2 DM with CKD stage 3 and hypertension (HCC) , Secondary hypertension due to renal disease , Mixed hyperlipidemia Take 1 tablet by mouth once daily. 90 tablet 3 09/21/2022 Active Start: 04-05-2018 End: 09-14-2020 take 90 mg by mouth once in the evening Nifedipine Active 90 MG PO .q hs 0 September 14, 2020 7:27am Take this medicine in the evening. Start: 04-05-2018 End: 04-26-2019 take 30 mg by mouth once in the morning Nifedipine Discontinued 30 MG PO .q am April 04, 2018 11:00pm April 26, 2019 3:14pm Comment on above: Take 1 tablet by laura th once daily. patiromer 8400 mg powder for oral suspension (7 sources) Potassium Binder Start: 01-02-2025 End: 07-01-2025 patiromer calcium sorbitex (VELTASSA) 8.4 gram pwpk Indications: Hyperkalemia , 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) Take 1 packet by mouth every Tuesday, Tuesday, and Tuesday. 12 packet 1 01/04/2025 02/03/2025 Active patiromer calcium sorbitex (VELTASSA) 1 gram pwpk (3 sources) take 1 dose by mouth once patiromer calcium sorbitex (VELTASSA) 1 gram pwpk Take 8.4 g by mouth one time only. Take 1 packet daily every Tuesday, Tuesday, Tuesday. Active Pen Needle, Diabetic (4 sources) Start: 09-14-2020 Pen Needle, Diabetic Active 1 EACH MC TWICE A DAY September 14, 2020 8:22am Start: 09-14-2020 Pen Needle, Di abetic Active 1 EACH MC TWICE A DAY September 13, 2020 11:00pm Start: 09-14-2020 Pen Needle, Di abetic Active 1 EACH MC TWICE A DAY September 14, 2020 12:00am phenylephrine hydrochloride 25 mg/ml ophthalmic solution (7 sources) alpha-1 Adrenergic Agonist Start: 09-06-2024 End: 09-06-2024 PHENYLephrine 2.5 % 1 Drop (AK-DILATE, PATI-SYNEPHRINE) Start: 09-06-2024 End: 09-06-2024 1 Drop, BOTH EYES, DIRECT ED, Starting on Juanita 09/06/24 at 1000, Until Juanita 09/06/24 at 2159, Administer for dilation PROTECT FROM LIGHT, OPHT CLINIC MED ORDERS Start: 10-06-2023 End: 10-06-2023 PHENYLephrine 2.5 % 1 Drop ( AK-DILATE, PATI-SYNEPHRINE) Start: 10-06-2022 End: 10-06-2022 PHENYLephrine 2.5 % 1 Drop ( AK-DILATE, PATI-SYNEPHRINE) Start: 05-05-2022 End: 05-05-2022 PHENYLephrine 2.5 % 1 Drop ( AK-DILATE, PATI-SYNEPHRINE) Start: 04-21-2022 End: 04-21-2022 PHENYLephrine 2.5 % 1 Drop ( AK-DILATE, PATI-SYNEPHRINE) Start: 02-23-2022 End: 02-23-2022 PHENYLephrine 2.5 % 1 Drop ( AK-DILATE, PATI-SYNEPHRINE) polyethylene glycol 3350 86805 mg powder for oral solution (20 sources) Osmotic Laxative Start: 04-27-2022 polyethylene glycol 3350 (MIRALAX) 17 gram/dose powder Indications: Constipation, unspecified constipation type Take 17 g by mouth every other day. 04/27/2022 Active Comment on above: Take 17 g by mouth e very other day. proparacaine hydrochloride 5 mg/ml ophthalmic solution (6 sources) Local Anesthetic Start: 09-06-2024 End: 09-06-2024 proparacaine 0.5 % 1 Drop (ALCAINE) Start: 10-06-2023 End: 10-06-2023 proparacaine 0.5 % 1 Drop (A LCAINE) Start: 10-06-2022 End: 10-06-2022 proparacaine 0.5 % 1 Drop (A LCAINE) Start: 05-05-2022 End: 05-05-2022 proparacaine 0.5 % 1 Drop (A LCAINE) Start: 04-21-2022 End: 04-21-2022 proparacaine 0.5 % 1 Drop (A LCAINE) Start: 02-23-2022 End: 02-23-2022 proparacaine 0.5 % 1 Drop (A LCAINE) rosuvastatin calcium 40 mg oral tablet (20 sources) HMG-CoA Reductase Inhibitor Start: 03-20-2024 End: 01-07-2025 take 1 tablet by mouth once daily at bedtime rosuvastatin (CRESTOR) 40 mg tablet Indications: Hyperlipidemia, unspecified hyperlipidemia type Take 1 tablet by mouth daily at bedtime. 90 tablet 3 01/07/2025 Active sulfamethoxazole 800 mg / trimethoprim 160 mg oral tablet (20 sources) Dihydrofolate Reductase Inhibitor Antibacterial, Sulfonamide Antimicrobial Start: 04-17-2022 End: 10-27-2022 take 1 tablet by mouth twice daily Sulfamethoxazole-Tr imethoprim (Bactrim Ds) 800-160 mg tablet Active 1 TABLET PO TWICE A DAY April 16, 2022 11:00pm Comment on above: Take by mouth twice daily. Timolol Maleate (20 sources) beta-Adrenergic Tiffany Start: 10-01-2020 Timolol Maleate Active 1 DRP EACH EYE TWICE A DAY October 01, 2020 6:53pm Start: 10-01-2020 Timolol Maleat e Active 1 DRP EACH EYE TWICE A DAY September 30, 2020 11:00pm Start: 10-01-2020 Timolol Maleat e Active 1 DRP EACH EYE TWICE A DAY October 01, 2020 12:00am Start: 04-05-2018 End: 05-09-2024 timolol maleate (TIMOPTIC) 0 .5 % ophthalmic solution Use in eyes. BID OU 04/05/2018 05/09/2024 Discontinued Comment on above: Use in eyes. BID OU tropicamide 10 mg/ml ophthalmic solution (7 sources) Anticholinergic Start: 09-06-2024 End: 09-06-2024 tropicamide 1 % 1 Drop (MYDRIACYL) Start: 09-06-2024 End: 09-06-2024 1 Drop, BOTH EYES, DIRECT ED, Starting on Juanita 09/06/24 at 1000, Until Juanita 09/06/24 at 2159, Administer for dilation, OPHT CLINIC MED ORDERS Start: 10-06-2023 End: 10-06-2023 tropicamide 1 % 1 Drop (MYDR IACYL) Start: 10-06-2022 End: 10-06-2022 tropicamide 1 % 1 Drop (MYDR IACYL) Start: 05-05-2022 End: 05-05-2022 tropicamide 1 % 1 Drop (MYDR IACYL) Start: 04-21-2022 End: 04-21-2022 tropicamide 1 % 1 Drop (MYDR IACYL) Start: 02-23-2022 End: 02-23-2022 tropicamide 1 % 1 Drop (MYDR IACYL) vitamin b12 1 mg oral capsule (20 sources) Vitamin B12 Start: 09-13-2020 take 1000 ug by mouth once daily Cyanocobalamin (Vitamin B-12) Active 1000 MCG PO DAILY September 12, 2020 11:00pm Start: 04-05-2018 End: 08-23-2019 take 1000 ug by mouth once daily Cyanocobalamin (Vitamin B-12) Discontinued 1000 MCG PO DAILY April 04, 2018 11:00pm August 23, 2019 2:23pm Start: 01-06-2018 take 1 tablet by laura th once daily cyanocobalamin (VITAMIN B-12) 1,000 mcg tab Indications: Diabetic polyneuropathy associated with diabetes mellitus due to underlying condition (HCC) Take 1 tablet by mouth once daily. 01/06/2018 Active Comment on above: Take 1 tablet by laura th once daily. Completed/Discontinued Medications Medication Drug Class(es) Dates Sig (Normalized) Sig (Original) amLODIPine 10 mg oral tablet (4 sources) Dihydropyridine Calcium Channel Tiffany Start: 01-21-2017 End: 04-05-2018 take 20 mg by mouth once daily Amlodipine Discontinued 20 MG PO DAILY January 20, 2017 11:00pm April 05, 2018 7:16am Blood Sugar Diagnostic (4 sources) Start: 01-21-2017 End: 08-23-2019 Blood Sugar Diagnostic Discontinued 1 EACH MC THREE TIMES A DAY January 21, 2017 10:08am August 23, 2019 3:23pm Start: 01-21-2017 End: 08-23-2019 Blood Sugar Diagnostic Disco ntinued 1 EACH MC THREE TIMES A DAY January 20, 2017 11:00pm August 23, 2019 2:23pm Start: 01-21-2017 End: 08-23-2019 Blood Sugar Diagnostic Disco ntinued 1 EACH MC THREE TIMES A DAY January 21, 2017 12:00am August 23, 2019 3:23pm carvedilol 25 mg oral tablet (8 sources) alpha-Adrenergic Tiffany, beta-Adrenergic Tiffany Start: 01-21-2017 End: 08-23-2019 take 37.5 mg by mouth twice daily Carvedilol Discontinued 37.5 MG PO TWICE A DAY April 26, 2019 3:10pm August 23, 2019 2:23pm chlorthalidone 25 mg oral tablet (8 sources) Thiazide-like Diuretic Start: 04-05-2018 End: 10-02-2020 take 25 mg by mouth once daily in the morning Chlorthalidone Discontinued 25 MG PO DAILY 0 September 14, 2020 7:27am October 02, 2020 11:19am Take this medicine in the morning. cyclobenzaprine hydrochloride 10 mg oral tablet (20 sources) Muscle Relaxant Start: 01-14-2022 End: 02-09-2023 take 1 tablet by mouth twice daily as needed for muscle spasms cyclobenzaprine (FLEXERIL) 10 mg tablet Indications: Flank pain, acute Take 1 tablet by mouth twice daily as needed for muscle spasm. 20 tablet 0 01/14/2022 02/09/2023 Discontinued Comment on above: Take 1 tablet by laura th twice daily as needed for muscle spasm. flash glucose scanning reader (FREESTYLE DAIJA 14 DAY READER) (20 sources) Start: 09-17-2020 flash glucose scanning reader (FREESTYLE DAIJA 14 DAY READER) Diagnoses: ICD10: E11.22, N18.32, Z79.4; E11.42, Z79.4. Sig: Check glucose 4 or more times per day. Patient on multiple insulin doses. 1 Each 0 09/17/2020 Active Comment on above: Diagnoses: ICD10: E1 1.22, N18.32, Z79.4; E11.42, Z79.4. Sig: Check glucose 4 or more times per day. Patient on multiple insulin doses. 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 Diagnoses: ICD10: E11.22, N18.32, Z79.4; E11.42, Z79.4. Sig: Check glucose 4 or more times per day. Patient on multiple insulin doses. 6 Each 3 04/27/2022 Active Start: 01-26-2022 End: 04-27-2022 flash glucose sensor (FREEST YLE DAIJA 14 DAY SENSOR) kit 1 Each every 2 weeks. Diagnoses: ICD10: E11.22, N18.32, Z79.4; E11.42, Z79.4. Sig: Check glucose 4 or more times per day. Patient on multiple insulin doses. 6 Each 3 01/26/2022 04/27/2022 Discontinued Start: 01-26-2022 flash glucose sensor (FREESTYLE DAIJA 14 DAY SENSOR) kit 1 Each every 2 weeks. Diagnoses: ICD10: E11.22, N18.32, Z79.4; E11.42, Z79.4. Sig: Check glucose 4 or more times per day. Patient on multiple insulin doses. 6 Each 3 01/26/2022 Active Start: 12-17-2020 End: 01-26-2022 flash glucose sensor (FREEST YLE DAIJA 14 DAY SENSOR) kit 1 Each every 2 weeks. Diagnoses: ICD10: E11.22, N18.32, Z79.4; E11.42, Z79.4. Sig: Check glucose 4 or more times per day. Patient on multiple insulin doses. 6 Each 3 12/17/2020 01/26/2022 Discontinued Start: 12-17-2020 flash glucose sensor (FREESTYLE DAIJA 14 DAY SENSOR) kit 1 Each every 2 weeks. Diagnoses: ICD10: E11.22, N18.32, Z79.4; E11.42, Z79.4. Sig: Check glucose 4 or more times per day. Patient on multiple insulin doses. 6 Each 3 12/17/2020 Active Comment on above: 1 Each every 2 weeks . Diagnoses: ICD10: E11.22, N18.32, Z79.4; E11.42, Z79.4. Sig: Check glucose 4 or more times per day. Patient on multiple insulin doses. furosemide 40 mg oral tablet (20 sources) Loop Diuretic Start: End: take 1.5 tablets by mouth once daily furosemide (LASIX) 40 mg tablet Indications: Essential hypertension Take 1.5 tablets by mouth once daily. 90 tablet 03/07/2025 03/07/2025 Discontinued (Adjust Sig - Block E-Cancel) Start: 11-27-2024 End: 03-07-2025 furosemide (LASIX) 40 mg tab let Indications: Essential hypertension Take 1 tab every morning and 1/2 tab at lunch. 03/07/2025 Active Start: 10-10-2023 End: 05-25-2025 take 1 tablet by mouth every other day furosemide (LASIX) 40 mg tablet Indications: Essential hypertension Take 1 tablet by mouth every other day. 45 tablet 1 11/26/2024 11/27/2024 Discontinued (Adjust Sig - Block E-Cancel) Start: 07-18-2023 End: 10-10-2023 take 1 tablet by mouth once daily furosemide (LASIX) 40 mg tablet Take 1 tablet by mouth once daily. 90 tablet 3 07/18/2023 10/10/2023 Discontinued Start: 04-26-2019 End: 10-27-2022 take 40 mg by mouth once daily Furosemide Active 40 MG PO DAILY April 26, 2019 3:17pm Start: 04-26-2019 End: 04-26-2019 take 40 mg by mouth twice daily Furosemide Discontinue d 40 MG PO TWICE A DAY April 25, 2019 11:00pm April 26, 2019 3:18pm Start: 01-21-2017 End: 04-05-2018 take 20 mg by mouth once daily Furosemide Discontinued 20 MG PO DAILY January 20, 2017 11:00pm April 05, 2018 7:16am Comment on above: Take 1 tablet by laura th once daily. Take 1 tablet by laura th every other day. glimepiride 2 mg oral tablet (12 sources) Sulfonylurea Start: 04-05-20 End: 11-07-19 take 4 mg by mouth at breakfast Glimepiride Discontinued 4 MG PO WITH BREAKFAST 60 April 05, 2018 7:26am November 07, 2019 2:18pm Start: 01-21-2017 End: 04-05-2018 take 2 mg by mouth at breakfast Glimepiride Discontinu ed 2 MG PO WITH BREAKFAST January 20, 2017 11:00pm April 05, 2018 7:26am insulin lispro 25 unt/ml / insulin lispro protamine, human 75 unt/ml injectable suspension (4 sources) Insulin Analog Start: 11-07-2019 End: 09-14-2020 Insulin Lispro Protamin-Lispro (Humalog Mix 75-25(U-100)Insuln) 100 unit/mL (75-25) suspension Discontinued 15 UNIT SC TWICE A DAY November 06, 2019 11:00pm September 14, 2020 7:24am linagliptin 5 mg oral tablet (4 sources) Dipeptidyl Peptidase 4 Inhibitor Start: 04-05-2018 End: 11-07-2019 take 5 mg by mouth once daily in the morning Linagliptin Discontinued 5 MG PO EVERY MORNING April 04, 2018 11:00pm November 07, 2019 2:18pm losartan potassium 50 mg oral tablet (20 sources) Angiotensin 2 Receptor Tiffany Start: 11-27-2024 End: 12-06-2024 take 0.5 tablet by mouth once daily losartan (COZAAR) 50 mg tablet Take 0.5 tablets by mouth once daily. 90 tablet 3 11/27/2024 12/06/2024 Discontinued (Side Effects) Start: 07-18-2023 End: 11-27-2024 take 1 tablet by mouth once daily losartan (COZAAR) 50 mg tablet Take 1 tablet by mouth once daily. 90 tablet 3 06/12/2024 11/27/2024 Discontinued (Adjust Sig - Block E-Cancel) Start: 04-07-2021 End: 10-27-2022 take 1 tablet by mouth once daily losartan (COZAAR) 50 mg tablet Take 1 tablet by mouth once daily. 90 tablet 3 10/27/2022 Active Start: 04-26-2019 End: 09-14-2020 take 100 mg by mouth once daily Losartan Active 100 MG PO DAILY 0 September 14, 2020 7:27am Start: 01-21-2017 End: 04-26-2019 take 50 mg by mouth once daily Losartan Discontinued 5 0 MG PO DAILY January 20, 2017 11:00pm April 26, 2019 3:18pm Comment on above: Take 1 tablet by laura th once daily. metFORMIN hydrochloride 500 mg oral tablet (8 sources) Biguanide Start: 8 End: 9 take 500 mg by mouth once Metformin Discontinued 500 MG PO ONCE November 23, 2017 11:00pm April 26, 2019 3:15pm Start: 01-21-2017 End: 01-21-2017 take 1000 mg by mouth twice daily at mealtime Metformin Discontinued 1000 MG PO TWICE DAILY WITH MEALS January 20, 2017 11:00pm January 21, 2017 9:55am mupirocin 0.02 mg/mg topical ointment (20 sources) RNA Synthetase Inhibitor Antibacterial Start: 08-24-2021 End: 10-27-2022 mupirocin (BACTROBAN) 2 % ointment Apply 1 application to affected area three times daily. 30 g 0 08/24/2021 10/27/2022 Discontinued (Course of therapy completed) Comment on above: Apply 1 application to affected area three times daily. pioglitazone 30 mg oral tablet (4 sources) Peroxisome Proliferator Receptor alpha Agonist, Peroxisome Proliferator Receptor gamma Agonist, Thiazolidinedione Start: 02-10-2017 End: 04-05-2018 take 30 mg by mouth once daily Pioglitazone Discontinued 30 MG PO DAILY February 09, 2017 11:00pm April 05, 2018 7:16am pravastatin sodium 80 mg oral tablet (20 sources) HMG-CoA Reductase Inhibitor Start: 01-21-2017 End: 11-28-2024 take 1 tablet by mouth once daily for hyperlipidemia pravastatin (PRAVACHOL) 80 mg tablet Take 1 tablet by mouth once daily. For cholesterol. 90 tablet 3 07/18/2023 03/20/2024 Discontinued (Changing Therapy/Dosage Form) Comment on above: Take 1 tablet by [facility] once daily. For cholesterol. promethazine hydrochloride 25 mg oral tablet (20 sources) Phenothiazine Start: 02-13-2025 End: 02-20-2025 take 1 tablet by mouth every six hours as needed promethazine (PHENERGAN) 25 mg tablet Take 1 tablet by mouth every 6 hours as needed for nausea/vomiting for up to 7 days. 20 tablet 02/13/2025 02/20/2025 Start: 10-15-2024 End: 10-22-2024 take 1 tablet by mouth every six hours as needed promethazine (PHENERGAN) 25 mg tablet Take 1 tablet by mouth every 6 hours as needed for nausea/vomiting for up to 7 days. 20 tablet 10/15/2024 10/22/2024 Active Start: 08-04-2024 End: 08-11-2024 take 1 tablet by mouth every six hours as needed promethazine (PHENERGAN) 25 mg tablet Take 1 tablet by mouth every 6 hours as needed for nausea/vomiting for up to 7 days. 20 tablet 08/04/2024 08/11/2024 Active Start: 03-09-2024 End: 03-16-2024 take 1 tablet by mouth every six hours as needed promethazine (PHENERGAN) 25 mg tablet Take 1 tablet by mouth every 6 hours as needed for nausea/vomiting for up to 7 days. 20 tablet 03/09/2024 03/16/2024 Active Start: 08-27-2023 End: 09-03-2023 take 1 tablet by mouth every six hours as needed promethazine (PHENERGAN) 25 mg tablet Take 1 tablet by mouth every 6 hours as needed for nausea/vomiting for up to 7 days. 20 tablet 0 08/27/2023 09/03/2023 Active Start: 09-18-2021 End: 10-27-2022 take 1 tablet by mouth every six hours as needed promethazine (PHENERGAN) 25 mg tablet Take 1 tablet by mouth every 6 hours as needed. 30 tablet 2 09/18/2021 10/27/2022 Discontinued (Course of therapy completed) Start: 08-07-2021 take 25 mg by mouth three times daily Promethazine Active 25 MG PO THREE TIMES A DAY August 07, 2021 12:00am Comment on above: Take 1 tablet by laura th every 6 hours as needed. Take 1 tablet by laura th every 6 hours as needed for nausea/vomiting for up to 7 days. Problems Active Problems Problem Classification Problem Date Documented Date Episodic/Chronic Abdominal pain (1 source) Flank pain; Translations: [Unspecified abdominal pain] Episodic Acquired foot deformities (2 sources) Hammer toe; Translations: [Other hammer toe(s) (acquired), left foot] Onset: 5 12-18-2024 Chronic Aortic; peripheral; and visceral artery aneurysms (5 sources) Thoracic aortic aneurysm without rupture; Translations: [Thoracic aortic aneurysm, without rupture] Onset: 5 06-15-2019 Chronic Cataract (20 sources) Bilateral pseudophakia; Translations: [Presence of intraocular lens] Onset: 9 Resolved: 2 06-22-2019 Chronic Chronic kidney disease (20 sources) Chronic kidney disease stage 3; Translations: [Stage 3 chronic kidney disease] Onset: 7 Resolved: 4 Chronic Chronic kidney disease (3 sources) Chronic kidney disease; Translations: [Stage 3b chronic kidney disease (HCC)] Onset: 2 Conditions associated with dizziness or vertigo (20 sources) Benign paroxysmal positional vertigo; Translations: [Benign paroxysmal vertigo, unspecified ear] Onset: 2 Resolved: 2 Episodic Deficiency and other anemia (20 sources) Anemia; Translations: [Anemia in stage 3 chronic kidney disease] 04-18-2019 Chronic Deficiency and other anemia (2 sources) Anemia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 Facility: [facility] Address: [address] [place] [address] Performed By: #### 2 777-1, 2731-8, 175-7, 76447-4 ####[facility] [id number] [place] [address] [place] CO2 [Moles/Vol] 20 mmol/L Low 22-30 [facility] Comment on above: Order Comment: Speci men Type: BLOOD SPECIMENOrdering Facility: [facility] Address: [address] [place] [address] Performed By: #### 2 777-1, 2731-8, 175-7, 68364-0 ####[facility] [id number] [place] [address] [place] Creatinine [Mass/Vol] 2.32 mg/dL High 0.73-1.22 [facility] Comment on above: Order Comment: Speci men Type: BLOOD SPECIMENOrdering Facility: [facility] Address: [address] [place] [address] Performed By: #### 2 777-1, 2731-8, 1757, 67170-6 ####[facility] [id number] [place] [address] [place] eGFRcr SerPlBld CKD-EPI 2020 28 mL/min/1.73m??? Low >=60 [facility] Comment on above: Order Comment: Speci men Type: BLOOD SPECIMENOrdering Facility: [facility] Address: [address] [place] [address] Result Comment: Annie mated Glomerular Filtration Rate (eGFR) is calculated using the 2020 CKD-EPI creatinine equation. This equation utilizes serum creatinine, sex, and age as parameters. The creatinine assay has traceable calibration to isotope dilution-mass spectrometry. Refer to KDIGO guidelines for clinical interpretation. In patients with unstable renal function, e.g. those with acute kidney injury, the eGFR may not accurately reflect actual GFR. Performed By: #### 2 777-1, 2731-01, 1750-12, 06081-3 ####[facility] [id number] [facility] [address] [address] [place] Glucose [Mass/Vol] 179 mg/dL High 74-99 [facility] Comment on above: Order Comment: Shiva rivera Type: BLOOD SPECIMENOrdering Facility: [facility] Address: [address] [place] [address] Result Comment: The [place] [employer] (ADA) provides guidance for cutoff values for fasting glucose and random glucose. The ADA defines fasting as no caloric intake for at least 8 hours. Fasting plasma glucose results between 100 to 125 mg/dL indicate increased risk for diabetes (prediabetes).Fasting plasma glucose results greater than or equal to 126 mg/dL meet the criteria for diagnosis of diabetes. In the absence of unequivocal hyperglycemia, results should be confirmed by repeat testing. In a patient with classic symptoms of hyperglycemia or hyperglycemic crisis, random plasma glucose results greater than or equal to 200 mg/dL meet the criteria for diagnosis of diabetes.Reference: Standards of Medical Care in Diabetes 2016, [place] [employer]. Diabetes Care. 2016.39(Suppl 1). Performed By: #### 2 777-1, 2731-01, 1750-12, 29570-0 ####[facility] [id number] [facility] [address] [address] [place] Potassium [Moles/Vol] 5.4 mmol/L High 3.7-5.1 [facility] Comment on above: Order Comment: Shiva rivera Type: BLOOD SPECIMENOrdering Facility: [facility] Address: [address] [place] [address] Performed By: #### 2 777-1, 2731-01, 1750-12, 64436-9 ####[facility] [id number] [facility] [address] [address] [place] Sodium [Moles/Vol] 139 mmol/L Normal 136-144 [facility] Comment on above: Order Comment: Speci men Type: BLOOD SPECIMENOrdering Facility: [facility] Address: [address] [place] [address] Performed By: #### 2 777-1, 273-8, 175-7, 87734-4 ####[facility] [id number] [place] [address] [place] Urea nitrogen [Mass/Vol] 28 mg/dL High 9-24 [facility] Comment on above: Order Comment: Speci men Type: BLOOD SPECIMENOrdering Facility: [facility] Address: [address] [place] [address] Performed By: #### 2 777-1, 273-8, 7, 08763-2 ####[facility] [id number] [place] [address] [place] CBC W Auto Differential pane l (Bld)on 03-05-2025 Basophils (Bld) [#/Vol] 10*3/uL Normal <0.11 [facility] Comment on above: Order Comment: Speci men Type: BLOOD SPECIMENOrdering Facility: [facility] Address: [address] [place] [address] Performed By: #### 5 7021-8 ####[facility] [id number] [place] [address] [place] Basophils/100 WBC (Bld) 0.4 % Normal [facility] Comment on above: Order Comment: Speci men Type: BLOOD SPECIMENOrdering Facility: [facility] Address: [address] [place] [address] Performed By: #### 5 7021-8 ####[facility] [id number] [place] [id number] [place] Differential cell count method Nom (Bld) Auto Normal [facility] Comment on above: Order Comment: Speci men Type: BLOOD SPECIMENOrdering Facility: [facility] Address: [address] [place] [address] Performed By: #### 5 7021-8 ####[facility] [id number] [place] [id number] [place] Eosinophils (Bld) [#/Vol] 0.03 10*3/uL Normal <0.46 [facility] Comment on above: Order Comment: Speci men Type: BLOOD SPECIMENOrdering Facility: [facility] Address: [address] [place] [address] Performed By: #### 5 7021-8 ####[facility] [id number] [place] [address] [place] Eosinophils/100 WBC (Bld) 0.6 % Normal [facility] Comment on above: Order Comment: Speci men Type: BLOOD SPECIMENOrdering Facility: [facility] Address: [address] [place] [address] Performed By: #### 5 7021-8 ####[facility] [id number] [place] [address] [place] Erythrocyte distribution width (RBC) [Ratio] 12.7 % Normal 11.5-15.0 [facility] Comment on above: Order Comment: Speci men Type: BLOOD SPECIMENOrdering Facility: [facility] Address: [address] [place] [address] Performed By: #### 5 7021-8 ####[facility] [id number] [place] [address] [place] Hematocrit (Bld) [Volume fraction] 40.2 % Normal 39.0-51.0 [facility] Comment on above: Order Comment: Speci men Type: BLOOD SPECIMENOrdering Facility: [facility] Address: [address] [place] [address] Performed By: #### 5 7021-8 ####[facility] [id number] [address] [address] [place] Hemoglobin (Bld) [Mass/Vol] 12.2 g/dL Low 13.0-17.0 [facility] Comment on above: Order Comment: Speci men Type: BLOOD SPECIMENOrdering Facility: [facility] Address: [address] [place] [address] Performed By: #### 5 7021-8 ####[facility] [id number] [place] [address] [place] Immature granulocytes (Bld) [#/Vol] 10*3/uL Normal <0.10 [facility] Comment on above: Order Comment: Speci men Type: BLOOD SPECIMENOrdering Facility: [facility] Address: [address] [place] [address] Performed By: #### 5 7021-8 ####[facility] [id number] [place] [address] [place] Immature granulocytes/100 WBC (Bld) 0.2 % Normal [facility] Comment on above: Order Comment: Speci men Type: BLOOD SPECIMENOrdering Facility: [facility] Address: [address] [place] [address] Performed By: #### 5 7021-8 ####[facility] [id number] [place] [address] [place] Lymphocytes (Bld) [#/Vol] 1.37 10*3/uL Normal 1.00-4.00 [facility] Comment on above: Order Comment: Speci men Type: BLOOD SPECIMENOrdering Facility: [facility] Address: [address] [place] [address] Performed By: #### 5 7021-8 ####[facility] [id number] [place] [address] [place] Lymphocytes/100 WBC (Bld) 25.4 % Normal [facility] Comment on above: Order Comment: Speci men Type: BLOOD SPECIMENOrdering Facility: [facility] Address: [address] [place] [address] Performed By: #### 5 7021-8 ####[facility] [id number] [place] [address] [place] MCH (RBC) [Entitic mass] 28.6 pg Normal 26.0-34.0 [facility] Comment on above: Order Comment: Speci men Type: BLOOD SPECIMENOrdering Facility: [facility] Address: [address] [place] [address] Performed By: #### 5 7021-8 ####[facility] [id number] [place] [address] [place] MCHC (RBC) [Mass/Vol] 30.3 g/dL Low 30.5-36.0 [facility] Comment on above: Order Comment: Speci men Type: BLOOD SPECIMENOrdering Facility: [facility] Address: [address] [place] [address] Performed By: #### 5 7021-8 ####[facility] [id number] [place] [address] [place] MCV (RBC) [Entitic vol] 94.1 fL Normal 80.0-100.0 [facility] Comment on above: Order Comment: Speci men Type: BLOOD SPECIMENOrdering Facility: [facility] Address: [address] [place] [address] Performed By: #### 5 7021-8 ####[facility] [id number] [place] [address] [place] Monocytes (Bld) [#/Vol] 0.54 10*3/uL Normal <0.87 [facility] Comment on above: Order Comment: Speci men Type: BLOOD SPECIMENOrdering Facility: [facility] Address: [address] [place] [address] Performed By: #### 5 7021-8 ####[facility] [id number] [place] [address] [place] Monocytes/100 WBC (Bld) 10.0 % Normal [facility] Comment on above: Order Comment: Speci men Type: BLOOD SPECIMENOrdering Facility: [facility] Address: [address] [place] [address] Performed By: #### 5 7021-8 ####[facility] [id number] [place] [address] [place] Neutrophils (Bld) [#/Vol] 3.42 10*3/uL Normal 1.45-7.50 [facility] Comment on above: Order Comment: Speci men Type: BLOOD SPECIMENOrdering Facility: [facility] Address: [address] [place] [address] Performed By: #### 5 7021-8 ####[facility] [id number] [place] [address] [place] Neutrophils/100 WBC (Bld) 63.4 % Normal [facility] Comment on above: Order Comment: Speci men Type: BLOOD SPECIMENOrdering Facility: [facility] Address: [address] [place] [address] Performed By: #### 5 7021-8 ####[facility] [id number] [place] [address] [place] Nucleated RBC (Bld) [#/Vol] 10*3/uL Normal <0.01 [facility] Comment on above: Order Comment: Speci men Type: BLOOD SPECIMENOrdering Facility: [facility] Address: [address] [place] [address] Performed By: #### 5 7021-8 ####[facility] [id number] [place] [id number] [place] Nucleated RBC/100 WBC (Bld) [Ratio] 0.0 /100 WBC Normal [facility] Comment on above: Order Comment: Speci men Type: BLOOD SPECIMENOrdering Facility: [facility] Address: [address] [place] [address] Performed By: #### 5 7021-8 ####[facility] [id number] [address] [address] [place] Platelet mean volume (Bld) [Entitic vol] 10.8 fL Normal 9.0-12.7 [facility] Comment on above: Order Comment: Speci men Type: BLOOD SPECIMENOrdering Facility: [facility] Address: [address] [place] [address] Performed By: #### 5 7021-8 ####[facility] [id number] [place] [address] [place] Platelets (Bld) [#/Vol] 286 10*3/uL Normal 150-400 [facility] Comment on above: Order Comment: Speci men Type: BLOOD SPECIMENOrdering Facility: [facility] Address: [address] [place] [address] Performed By: #### 5 7021-8 ####[facility] [id number] [place] [address] [place] RBC (Bld) [#/Vol] 4.27 10*6/uL Normal 4.20-6.00 [facility] Comment on above: Order Comment: Speci men Type: BLOOD SPECIMENOrdering Facility: [facility] Address: [address] [place] [address] Performed By: #### 5 7021-8 ####[facility] [id number] [place] [address] [place] WBC (Bld) [#/Vol] 5.39 10*3/uL Normal 3.70-11.00 [facility] Comment on above: Order Comment: Speci men Type: BLOOD SPECIMENOrdering Facility: [facility] Address: [address] [place], [place] [address] Performed By: #### 5 7021-8 ####[facility] [id number] [place] [id number] [place] CNOVon 03-05-2025 CNOV Normal [facility] PTH-Intact SerPl-ncon 09-0 Parathyrin.intact [Mass/Vol] 57 pg/mL Normal 15-65 [facility] Comment on above: Order Comment: Speci men Type: BLOOD SPECIMENOrdering Facility: [facility] Address: [address] [place] [address] Performed By: #### 2 777-1, 273-8, 1750-12, 58163-2 ####[facility] [id number] [place] [id number] [place] Phosphate SerPl-ncon 03-05 Phosphate [Mass/Vol] 3.4 mg/dL Normal 2.7-4.8 [facility] Comment on above: Order Comment: Speci men Type: BLOOD SPECIMENOrdering Facility: [facility] Address: [address] [place] [address] Performed By: #### 2 777-1, 2738, 1750-12, 07067-7 ####[facility] [id number] [place] [id number] [place] Prot/Creat Uron 03-05-2025 Protein/Creatinin e (U) [Mass ratio] 0.29 mg/mg High <0.15 [facility] Comment on above: Order Comment: Speci men Type: URINE SPECIMENOrdering Facility: [facility] Address: [address] [place] [address] Result Comment: Adul t Proteinuria Categories:<0.15 mg/mg is considered normal to mildly increased0.15 - 0.50 mg/mg is considered moderately increased>0.50 mg/mg is considered severely increasedKDIGO. (2013). KDIGO 2012 Clinical Practice Guideline for the Evaluation and Management of Chronic Kidney Disease. Official Journal of the International Society of Nephrology, 3(1), 1-150. Performed By: #### 2 890-2 ####[facility] [id number] [address] [address] [place] Protein/Creatinine (U) [Mass ratio]on 03-05-2025 Creatinine (U) [Mass/Vol] 44.4 mg/dL Normal 20.0-300.0 [facility] Comment on above: Order Comment: Speci men Type: URINE SPECIMENOrdering Facility: [facility] Address: [address] [place] [address] Performed By: #### 2 890-2 ####[facility] [id number] [place] [address] [place] Protein (U) [Mass/Vol] 13 mg/dL Normal 0-20 [facility] Comment on above: Order Comment: Speci men Type: URINE SPECIMENOrdering Facility: [facility] Address: [address] [place] [address] Performed By: #### 2 890-2 ####[facility] [id number] [address], [facility]95 [place] Urinalysis complete panel (U )on 03-05-2025 Bacteria LM.HPF (Urine sed) [#/Area] Negative Normal Negative [facility] Comment on above: Order Comment: Speci men Type: URINE SPECIMENOrdering Facility: [facility] Address: [address] [place] [address] Performed By: #### 2 4356-8 ####[facility] [id number] [address] [address] [place] Bilirubin Ql (U) Negative Normal Negative [facility] Comment on above: Order Comment: Speci men Type: URINE SPECIMENOrdering Facility: [facility] Address: [address] [place] [address] Performed By: #### 2 4356-8 ####[facility] [id number] [facility] [address] [place] [address] [place] Clarity (Unsp spec) Clear Normal Clear [facility] Comment on above: Order Comment: Speci men Type: URINE SPECIMENOrdering Facility: [facility] Address: [address] [place] [address] Performed By: #### 2 4356-8 ####[facility] [id number] [facility] [address] [place] [address] [place] Color (U) Yellow Normal Yellow [facility] Comment on above: Order Comment: Speci men Type: URINE SPECIMENOrdering Facility: [facility] Address: [address] [place] [address] Performed By: #### 2 4356-8 ####[facility] [id number] [address], [facility]95 [place] Epithelial cells LM.HPF (Urine sed) [#/Area] None Seen Normal [facility] Comment on above: Order Comment: Speci men Type: URINE SPECIMENOrdering Facility: [facility] Address: [address] [place] [address] Performed By: #### 2 4356-8 ####[facility] [id number] [address] [place] [address] [place] Glucose Test strip (U) [Mass/Vol] 2+ Abnormal Negative [facility] Comment on above: Order Comment: Speci men Type: URINE SPECIMENOrdering Facility: [facility] Address: [address] [place], [place] [address] Performed By: #### 2 4356-8 ####[facility] [id number] [address] [place] [address] [place] Hemoglobin Ql (U) Negative Normal Negative [facility] Comment on above: Order Comment: Speci men Type: URINE SPECIMENOrdering Facility: [facility] Address: [address] [place] [address] Performed By: #### 2 4356-8 ####[facility] [id number] [address], [place] [address] [place] Hyaline casts (Urine sed) [#/Area] 0 /[LPF] Normal 0 /LPF [facility] Comment on above: Order Comment: Speci men Type: URINE SPECIMENOrdering Facility: [facility] Address: [address] [place] [address] Performed By: #### 2 4356-8 ####[facility] [id number] [address], [place] [address] [place] Ketones Ql (U) Negative Normal Negative [facility] Comment on above: Order Comment: Speci men Type: URINE SPECIMENOrdering Facility: [facility] Address: [address] [place] [address] Performed By: #### 2 4356-8 ####[facility] [id number] [address], [place] [address] [place] Leukocyte esterase Test strip Ql (U) Negative Normal Negative [facility] Comment on above: Order Comment: Speci men Type: URINE SPECIMENOrdering Facility: [facility] Address: [address] [place] [address] Performed By: #### 2 4356-8 ####[facility] [id number] [place] [id number] [place] Nitrite Ql (U) Negative Normal Negative [facility] Comment on above: Order Comment: Speci men Type: URINE SPECIMENOrdering Facility: [facility] Address: [address] [place] [address] Performed By: #### 2 4356-8 ####[facility] [id number] [address], [facility]95 [place] pH (U) 5.5 [pH] Normal 5.0-8.0 [facility] Comment on above: Order Comment: Speci men Type: URINE SPECIMENOrdering Facility: [facility] Address: [address] [place] [address] Performed By: #### 2 4356-8 ####[facility] [id number] [place] [address] [place] Protein (U) [Mass/Vol] Trace Abnormal Negative [facility] Comment on above: Order Comment: Speci men Type: URINE SPECIMENOrdering Facility: [facility] Address: [address] [place] [address] Performed By: #### 2 4356-8 ####[facility] [id number] [place] [address] [place] RBC LM.HPF (Urine sed) [#/Area] 0-2 /HPF Normal 0-2 /HPF [facility] Comment on above: Order Comment: Speci men Type: URINE SPECIMENOrdering Facility: [facility] Address: [address] [place] [address] Performed By: #### 2 4356-8 ####[facility] [id number] [place] [address] [place] Specific gravity (U) [Rel density] 1.011 Normal 1.005-1.030 [facility] Comment on above: Order Comment: Speci men Type: URINE SPECIMENOrdering Facility: [facility] Address: [address] [place] [address] Performed By: #### 2 4356-8 ####[facility] [id number] [place] [address] [place] Urobilinogen Ql (U) 0.2 EU/dL Normal 0.2-1.0 EU/dL [facility] Comment on above: Order Comment: Speci men Type: URINE SPECIMENOrdering Facility: [facility] Address: [address] [place] [address] Performed By: #### 2 4356-8 ####[facility] [id number] [address] [address] [place] WBC LM.HPF (Urine sed) [#/Area] 0-5 /HPF Normal 0-5 /HPF [facility] Comment on above: Order Comment: Speci men Type: URINE SPECIMENOrdering Facility: [facility] Address: [address] [place] [address] Performed By: #### 2 4356-8 ####[facility] [id number] [address] [address] [place] CNPNon 02-26-2025 CNPN Normal [facility] CNPNon 02-22-2025 CNPN Normal [facility] Basic metabolic 2000 panelon 02-19-2025 Anion gap [Moles/Vol] 10 mmol/L Normal 8-15 [facility] Comment on above: Order Comment: Speci men Type: BLOOD SPECIMENOrdering Facility: [facility] Address: [address] [place] [address] Performed By: #### 2 4321-2, 29979-5 ####[facility]ITALSTEPHANE [id number] [place] [address] [place] Calcium [Mass/Vol] 9.5 mg/dL Normal 8.5-10.2 [facility] Comment on above: Order Comment: Speci men Type: BLOOD SPECIMENOrdering Facility: [facility] Address: [address] [place] [address] Performed By: #### 2 4321-2, 58394-3 ####[facility]ITALL[facility] [id number] [place] [address] [place] Chloride [Moles/Vol] 106 mmol/L Normal 98-107 [facility] Comment on above: Order Comment: Speci men Type: BLOOD SPECIMENOrdering Facility: [facility] Address: [address] [place] [address] Performed By: #### 2 4321-2, ####[facility]ITALWNCL[facility] [id number] [place] [address] [place] CO2 [Moles/Vol] 21 mmol/L Low 22-30 [facility] Comment on above: Order Comment: Speci men Type: BLOOD SPECIMENOrdering Facility: [facility] Address: [address] [place] [address] Performed By: #### 2 432-2, ####[facility] [id number] [place] [address] [place] Creatinine [Mass/Vol] 2.23 mg/dL High 0.73-1.22 [facility] Comment on above: Order Comment: Speci men Type: BLOOD SPECIMENOrdering Facility: [facility] Address: [address] [place] [address] Performed By: #### 2 43206-28, ####[facility]CL[facility] [id number] [place] [address] [place] eGFRcr SerPlBld CKD-EPI 2020 29 mL/min/1.73m??? Low >=60 [facility] Comment on above: Order Comment: Speci men Type: BLOOD SPECIMENOrdering Facility: [facility] Address: [address] [place] [address] Result Comment: Annie mated Glomerular Filtration Rate (eGFR) is calculated using the 2020 CKD-EPI creatinine equation. This equation utilizes serum creatinine, sex, and age as parameters. The creatinine assay has traceable calibration to isotope dilution-mass spectrometry. Refer to KDIGO guidelines for clinical interpretation. In patients with unstable renal function, e.g. those with acute kidney injury, the eGFR may not accurately reflect actual GFR. Performed By: #### 2 4321-2, ####[facility]ITALWNCLIA [id number] [place] [address] [place] Glucose [Mass/Vol] 203 mg/dL High 74-99 [facility] Comment on above: Order Comment: Shiva rivera Type: BLOOD SPECIMENOrdering Facility: [facility] Address: [address] [place] [address] Result Comment: The [place] [employer] (ADA) provides guidance for cutoff values for fasting glucose and random glucose. The ADA defines fasting as no caloric intake for at least 8 hours. Fasting plasma glucose results between 100 to 125 mg/dL indicate increased risk for diabetes (prediabetes).Fasting plasma glucose results greater than or equal to 126 mg/dL meet the criteria for diagnosis of diabetes. In the absence of unequivocal hyperglycemia, results should be confirmed by repeat testing. In a patient with classic symptoms of hyperglycemia or hyperglycemic crisis, random plasma glucose results greater than or equal to 200 mg/dL meet the criteria for diagnosis of diabetes.Reference: Standards of Medical Care in Diabetes 2016, [place] [employer]. Diabetes Care. 2016.39(Suppl 1). Performed By: #### 2 432-, ####[facility] CENTERGraham [id number] [place] [address] [place] Potassium [Moles/Vol] 5.4 mmol/L High 3.7-5.1 [facility] Comment on above: Order Comment: Shiva rivera Type: BLOOD SPECIMENOrdering Facility: [facility] Address: [address] [place] [address] Performed By: #### 2 432-, ####[facility] CENTERGraham [id number] [place] [address] [place] Sodium [Moles/Vol] 137 mmol/L Normal 136-144 [facility] Comment on above: Order Comment: Shiva rivera Type: BLOOD SPECIMENOrdering Facility: [facility] Address: [address] [place] [address] Performed By: #### 2 432-, ####[facility] HOSPITALLI [id number] [place] [address] [place] Urea nitrogen [Mass/Vol] 34 mg/dL High 9-24 [facility] Comment on above: Order Comment: Speci men Type: BLOOD SPECIMENOrdering Facility: [facility] Address: [address] [place] [address] Performed By: #### 2 4321-2, ####[facility]ILL[facility] PASSNCLIA [id number] [place] [address] [place] CNPNon 02-19-2025 CNPN Normal [facility] CNTHERAPYon 02-19-2025 CNTHERAPY Normal [facility] Magnesium SerPl-mCncon 02-19 Magnesium [Mass/Vol] 2.4 mg/dL High 1.7-2.3 [facility] Comment on above: Order Comment: Speci men Type: BLOOD SPECIMENOrdering Facility: [facility] Address: [address] [place] [address] Performed By: #### 2 4321-2, ####[facility]ITALNCL[facility] [id number] [place] [address] [place] CNTHERAPYon 02-05-2025 CNTHERAPY Normal [facility] CNOVon 01-21-2025 CNOV Normal [facility] CNTHERAPYon 01-15-2025 CNTHERAPY Normal [facility] THERAPY NTon 01-15-2025 THERAPY NT Normal [facility] CNOVon 01-07-2025 CNOV Normal [facility] [id number] 01-02-2025 [id number] Normal [facility] Basic metabolic 2000 panelon 01-02-2025 Anion gap [Moles/Vol] 12 mmol/L Normal 8-15 [facility] Comment on above: Order Comment: Speci men Type: BLOOD SPECIMENOrdering Facility: [facility] Address: [address] [place] [address] Performed By: #### 2 4321-2 ####[facility]ITALNCL[facility] [id number] [place] [address] [place] Calcium [Mass/Vol] 9.5 mg/dL Normal 8.5-10.2 [facility] Comment on above: Order Comment: Speci men Type: BLOOD SPECIMENOrdering Facility: [facility] Address: [address] [place] [address] Performed By: #### 2 4321-2 ####[facility] HOSPITALLIA [id number] [place] [address] [place] Chloride [Moles/Vol] 106 mmol/L Normal 98-107 [facility] Comment on above: Order Comment: Speci men Type: BLOOD SPECIMENOrdering Facility: [facility] Address: [address] [place] [address] Performed By: #### 2 4321-2 ####[facility] CENTERA [id number] [place] [address] [place] CO2 [Moles/Vol] 19 mmol/L Low 22-30 [facility] Comment on above: Order Comment: Speci men Type: BLOOD SPECIMENOrdering Facility: [facility] Address: [address] [place] [address] Performed By: #### 2 4321-2 ####[facility] HOSPITALLIA [id number] [place] [address] [place] Creatinine [Mass/Vol] 2.86 mg/dL High 0.73-1.22 [facility] Comment on above: Order Comment: Speci men Type: BLOOD SPECIMENOrdering Facility: [facility] Address: [address] [place], [place] [address] Performed By: #### 2 4321-2 ####[facility]ITALNCL[facility] [id number] [place] [address] [place] Creatinine and Glomerular filtration rate.predicted panel (S/P/Bld) 22 mL/min/1.73m??? Low >=60 [facility] Comment on above: Order Comment: Shiva rivera Type: BLOOD SPECIMENOrdering Facility: [facility] Address: [address] [id number] Result Comment: Annie mated Glomerular Filtration Rate (eGFR) is calculated using the 202 CKD-EPI creatinine equation. This equation utilizes serum creatinine, sex, and age as parameters. The creatinine assay has traceable calibration to isotope dilution-mass spectrometry. Refer to KDIGO guidelines for clinical interpretation. In patients with unstable renal function, e.g. those with acute kidney injury, the eGFR may not accurately reflect actual GFR. Performed By: #### 2 4321-2 ####[facility] [id number] [place] [address] [place] Glucose [Mass/Vol] 202 mg/dL High 74-99 [facility] Comment on above: Order Comment: Shiva rivera Type: BLOOD SPECIMENOrdering Facility: [facility] Address: [address] [place] [address] Result Comment: The [place] Diabetes Association (ADA) provides guidance for cutoff values for fasting glucose and random glucose. The ADA defines fasting as no caloric intake for at least 8 hours. Fasting plasma glucose results between 100 to 125 mg/dL indicate increased risk for diabetes (prediabetes).Fasting plasma glucose results greater than or equal to 126 mg/dL meet the criteria for diagnosis of diabetes. In the absence of unequivocal hyperglycemia, results should be confirmed by repeat testing. In a patient with classic symptoms of hyperglycemia or hyperglycemic crisis, random plasma glucose results greater than or equal to 200 mg/dL meet the criteria for diagnosis of diabetes.Reference: Standards of Medical Care in Diabetes 2016, [place] [employer]. Diabetes Care. 2016.39(Suppl 1). Performed By: #### 2 4321-2 ####[facility] [id number] [place] [address] [place] Potassium [Moles/Vol] 5.4 mmol/L High 3.7-5.1 [facility] Comment on above: Order Comment: Shiva rviera Type: BLOOD SPECIMENOrdering Facility: [facility] Address: [address] [place] [address] Performed By: #### 2 4321-2 ####[facility]ITALNCL[facility] [id number] [place] [address] [place] Sodium [Moles/Vol] 137 mmol/L Normal 136-144 [facility] Comment on above: Order Comment: Speci men Type: BLOOD SPECIMENOrdering Facility: [facility] Address: [address] [place] [address] Performed By: #### 2 4321-2 ####[facility] HOSPITALLI [id number] [place] [address] [place] Urea nitrogen [Mass/Vol] 43 mg/dL High 9-24 [facility] Comment on above: Order Comment: Speci men Type: BLOOD SPECIMENOrdering Facility: [facility] Address: [address] [place] [address] Performed By: #### 2 4321-2 ####[facility] [id number] [place] [address] [place] CNTHERAPYon 01-02-2025 CNTHERAPY Normal [facility] CNPNon 12-31-2024 CNPN Normal [facility] CNOVon 12-18-2024 CNOV Normal [facility] POTASSIUMon 12-05-2024 Potassium [Moles/Vol] 5.4 mmol/L High 3.7-5.1 [facility] Comment on above: Order Comment: Speci men Type: BLOOD SPECIMENOrdering Facility: [facility] Address: [address] [place] [address] Performed By: #### K 1 ####[facility] LABCL[facility] [id number] [place] [address] [place] Coding Summaryon 11-30-2024 Coding Summary HTMLBase 64 JykmvcqsMLy4zXq+PGhlYWQ+PE1FV WNzW60stZGhnE6rS1QTSWdYVeplWC CEQOtDVsSmyeTmRU6tkCXlSISa IC8+BC0tPFOuOjbbbNYty1N7ePM7C 38xlk7qZDfseZS0EGIhGqMnmdqgc1 fgwVy0CNxlPbwrYnDc KSCshB08XHF3hN41Ze24fHSiyVMrp 5ilfXm0AyEgFXUaTZR6mGzhGOoke9 OmAEZiG51hnVLem1K2 ZUFsgUyveLEgJiSgwEK7pG9iSFwlo lhue8xdbjmtQiu3kj15jTDet4W4zJ H2N2KikmN5HLJzfPRx ArnkbVPWhL5xxdszg2qwchoxFbGfO PJwHPa9IKx5QGWtpKbfBeTzTG56KA E8UTAlllAcH5HjHPEz jNfjXnN3n1W4Mg5SO4HAMgciE0QBA UFSWTwvdGQ+NV81pa20W6BaBwzhZo m2PUTfYYB8eGQ5hU5c PYVzVQtqc1E5tUR3L8AvcaZzdi2kd 5khEDKvOWfyX49daOEsr7Q3WRVzaD A2TTUvaRloOkWtsR82 Oyc+IHXkcRkqh1NzMfmck1equ7pzi Vw1OlgpTYOrjlAleFiiPAC9j9SkCz 2oGMZzzMC9sZL4tX5q JjGxWbN4YWtoG849CmUuqEKlSpojB 85nD2GwuMG+JRRuPyh7RZDucNndCX 9zA7BtBYTufizsaGVz eZdaJK9hWHEqdeexJKTqbD5dHWSeB 1c3YcDhJfA6YDpyQ1AvTMAijbvxIg 82yN0vXqKsYhM0UTkj F4NglcQ6MNWjyHStADpmLZN1F31pg 4D4UOHgKPEhUVZ4eRS8aD4hnVfskp ogbGVmdDsgdmVydGlj PRhpQWltR965TQSyqCycYgWqSPecO yBEYXRlOiAgMDYvMDYvMjAyNTwvdG Q+YZLzQAS5fSpbDKCs jGDdEEyeBy4aeOsytZxiOE2wVWLqp bzyUSVitW9sVVMzaJUcrQrnHA8fVR Lwkzyjw672DwEmRWB2 PUSskJIaW5JqvC8zGqUeVRSuZYQnO 5ZkvEVnYRjuI972CPprVdQ7FUZdoj BzN6GxZDNtwBcnFoE5 e9W9Ks1Jl2VtlrqaJ9JycGGhYdDbN giiRXs4R9BfRomjaPA+EW46XCLsYB 74KLo3RMV8tJdmRBww CCOaM6TpnA2vEiDyPRVyKVJqRow+P HRhYmxlIHdpZHRoPScxMDAlJyBzdH lgSJ2wMj0jDMGkBEXy xQvydWIjNrOyc7ysXJJuKRyvOB5cd ZooA3UmwOC5UFQto1l3Sj74C31zS2 JvdXA+MKPdiLI2rLJ7 cI3rCrYjRjH7LAzdI625TmJfiOFrG djua4xqd0oheNb3RdV4SMSecuFedH wgFBY9y3IaLt10U61t UTryNOBgMDIoEJXwRDLbaHstry1yb G9wIi8+ZTEzbZS3gUD8pT6wEmDmAi N9QVuzZ329AoDeaNGy Nniex8kmi6nhbFa7TtDwQESdrhOxr QivFVU6q0IcXm92J1JohLlys3EqKp i4wx59fUUsu7N6eKO3 O2NxSGSiapslbVGxsLkjPM9cFCQfx ojxEAPcvY3iWTEgS8l3JrOsGmR7XY khF1AltiV5VZUjhEXt CLLnbMDMrE5gyqyye2hmbplrLzQfE JDqBAu7BFo5XOIrzXgvVvRvQKR9Mf F0OZR6cWMmcL8gvHqp stkweG3qFaj+SJT3vAQomWAHET7xY jwvdGQ+JTBaKEN0dAhgJEoaCDDpoR 6aPZAkD4e8YdZmSxM3 PDdlG9HnidS1ZVXvvDFxWKZtnXOHc I5noxrmc7lctyemKtVnZXZvHZc6YT w8ICHqyAhfCvFkOEZ3 QjF1SUS3aKQqxV3qyZvublxksM4kP yc+SfbzuEacUKP1GJx9K6ZhBfn3DC IdxZouBG3euRWkLHce Wr2zsEnfoXhrKA1oLRDuhzoqr183N zPet5uoUUFmcIPiAQicMMN4F41rj0 E6GJKkAABbLRD6dOL5 eN4ipKatmxbfwUMqaWepymHmbCxwV NicAZgyF721CXOinWylAiMfGIs7B1 MwUbm8UKZksQemNX8v rFDpIHgyIe8spYtwtLpiRE7bGAEvj ooug984OySgo7zxNIXkrACjLZczNR H4H60fl9M9PPMbWUOc JQI3mVR7kK6uuAbeqawvdTCjiHhrr qVvsRceUZtlYKsvO732MSVxzHocYy LheNw7H1OiRjv6IRRt wKauWZ5vaLQgHNmdUv7urOgtkTppR Q2wGEUepolza532XyKrm8mkMFPcqD NbWTsaWXZ7V48kp3E9 WDPcZHLeBCD5nJE8oI0kuLggupdav SAsmUyuspOjiLehTKfdTBhpV001QJ RvcDsnPlBhdGllbnQg LIxnKQu5Q7NaYvgdyLY+RE00GLRhP X62kLGbuIGhi8irvXi8GaSkCESmIZ M9uFdvBMxly0PpESEz B81svBSyh8H2HVJyxCaobVXxIjLjp NI4lF1xEVgzlcvwp0gpasgdQxbfk2 poze82aW94T82wMEmd XNQfMXTxFHXlEWCoaIrgrl8ppM6bS i8+NBCmoWN8tOS2tP8iLODdKvY7XE azZ948UeOltUCjFlow j6mue7skxYx5ShH8WRZlquRluFkfR BP9o0HcPy82Q80iLTdtKQZvNMFiDG UlXDHwlZffes9syT6u Ii8+RJGiaUB5pCI4nZ8cAdHrLwM8B KjnZ957SuFgrFRyEdseV60lW4DsgR A+DTAtVff7QAYupYpn MT4acQDdZWblUq4gYFJ5IoKhKwNpK XqkN1BoOSFhexgrebzsqHZ6AAMwNP FhjW80Qw4hkNlyAJPu gRKQzC9kpwtsw7qbxtnzZwRmMCNuH Fb9BSq7OARrlZmlGyMfNXG5AbT3ER D8tYBqxY9cfYgioozq cB9gJ3VuEIMwuxdeUt04zU4oJyAaI mL1UEkxJfd+E3EDJ2TcU4MpTPTRZu RJUzwvdGQ+PHRkIHN0 nPioZLbbPZVhgG0hTKPfD9p1FfTdQ aX9AKjmC0LbRZAsjzqvJf41vG1bBs KyFrH5BEehK3WkcgF5 IUJmjGCkEItuZNT7I77bx9Y8CVSeB XRuTNC4hMP5lD0upIutgbahmHTcnV sgdmVydGljYWwtYWxp F840XNRhkAszZpF3RkRnJmS8MFw5H 0XnIsq8KAOezKmyOC1xvJDkEMrqSs 7giVdpmFafNG7eCRIq jjziJEHmsV9kAYFlrIQmaBdoUF8oN XFufgnjv353KbLeXGI5XCDbqSPhY5 ColC2nZkVbGVOlJYYn K2LsvAKoRQreB790ZGrqHjM8CIRcd vRtG0StCEWkwTxaKsG5a9K4Hd16Lc BZZWFyczwvdGQ+PHRk GWT5aNsyEGjlNYCvxV9pTJWcA4f8Z wFaJxQ1JPiaX1AnRDUastyqNo03eX 8mAcAtToA2NKkiM4Qr flG0KWOxbUYiYLadAUU1S68zn9N9I BHyBWDuHGA2xPH8oI2grYgqngmtzN VmdDsgdmVydGljYWwt CShsY972NCWweWraAz2ARIK5I6QiZ vb4PATmdSmeDE5jgLBuAXdfGb6lsU xixBpcAR5aPXObnqcq NWZowF7wKKAokFItvFxoSD6vNFWrk aljn631MrDmMST7JVVhdVZdA6EanB 9kXjOmMXMiNLCiX2Ru nTNlEXggE624YYvdYwJ1RQQyibOzO 8TrBBOjsSobLfX1p8O0Kh6BrUGwQ8 TcR8h8B1GkTdyfjBT+ KA20FIGiJU98qIZwvIHov2eweFf3H fXgJKPaJTM4uJjxQObil0JnRLCgA3 1giCUeq7C0VGRhjZzo zMBxDoYxpRB0tC3hVIndqrilj1orp tyiItigp8pzjx43uZ54T27gRRguUV RoPSIzMCUiIHZhbGln xj8cvX3pFq8+TCAgrAA0nYZ2eT6fZ hOsJmY8YWkgC809DzAibKDkShziz0 xck8ogsFm1KyOmZAGk soFcjOujJGO4i1OrQu52V18fEXhrC SSjOUTfHSRsQKDyoBivkq6bdK1iVs 8+TC6ns1pweg51uI67 dHI+YKIiYGF3wUwuYBwdSONecR5iY EedMgZ0PYJxJhTmlP72zDPjWMwzXv 6isSuczHlrWX4bTQJt jkmzi894KzRid8opKPRhkWFrHMpmG DM4G30ue2A1DSMxJTKaRFR6vYO0bN 1hbGlnbjogbGVmdDsg saHynDsjTBwuFHmxK799MRNchDziB qJfqVYzK1surhOPXL6mIwkeaRT+PH YaHRE9vDgiRUyeGMVu sR6oHFHuP9z1RsMxCmX5RJhzM4Mfv aQ7ARIwcFZkFNGfgZLUvB3hsoqar2 xvcjogIzAwMDAwMDt0 MPi6QWNjkGcxOeYhPUT6TvO3OZT1b KPzaW3stGbnvwkouJ7kPfg+RklOOj wvdGQ+VPOyHQR9kXpg ITzxWLHsqC0bBPTrN4o3JfHjWzT4N HsiI1IiefA6EVWynYVsYDLgvVJTiP 2steyqk3mcdcsiKwDr ZNPbMJn8EGb2WLUzbCptIdSgHKS6C oC2OGR0pZCdiD7qqUxhrtxfmM8jZq c+TVJOOjwvdGQ+PHRk PMQ8gZxfNEesBHEnaE5cBAOrT9p7S xWsUrJ5LOveE5RuzgV6EKGhlCLtGT AfkWQDmP0dfaccw7ct tswyWcHqHJHjGFu6WHf2VWTnmBvgZ kFwQNO4XiY6CQN9rZWohU7xoZdxlq gubL6uStx+XRH0TQF5 OS20RF71R6NbZdhlaMNnqVG+PHRhY mxlIHdpZHRoPScxMDAlJyBzdHlsZT 4wJz0fXNYwMBCreWeu cHN (more content not included)... Normal [facility] CNOVon 11-26-2024 CNOV Normal [facility] POTASSIUMon 11-26-2024 Potassium [Moles/Vol] 5.5 mmol/L High 3.7-5.1 [facility] Comment on above: Order Comment: Speci men Type: BLOOD SPECIMENOrdering Facility: [facility] Address: [address] [place] [address] Performed By: #### K 1 ####[facility] [id number] [address] [place] CNPNon 11-23-2024 CNPN Normal [facility] 25(OH)D3 SerPl-mCncon 2024 25-hydroxyvitamin D3 [Mass/Vol] 44.7 ng/mL Normal 31.0-80.0 [facility] Comment on above: Order Comment: Speci men Type: BLOOD SPECIMENOrdering Facility: [facility] Address: [address] [place] [address] Result Comment: Clas sification of 25 [place] Vitamin D status:Deficiency/Insufficiency: < or = 30 ng/ml.Sufficiency/Optimal Levels: 31-80 ng/mLToxicity: > 100 ng/mL.Test performed by chemiluminescent immunoassay. Performed By: #### 1 989-3 ####[facility] [id number] [place] [address] [place] BMP Standardon 11-22-2024 eGFR AA 30 mL/min/1.73m2 Invalid Interpretation Code [facility] Comment on above: Performed By: #### 1 [id number] #### [facility] (DEFAULT) [address] [place] [address] eGFR Non AA 25 mL/min/1.73m2 Invalid Interpretation Code [facility] Comment on above: Performed By: #### 1 [id number] #### [facility] (DEFAULT) [address] [place] [address] Anion gap [Moles/Vol] 13.4 mmol/L Normal 5.0-19.0 [facility] Comment on above: Performed By: #### 1 [id number] #### [facility] (DEFAULT) [address] [place] [address] Calcium [Mass/Vol] 9.1 mg/dL Normal 8.9-10.3 [facility] Comment on above: Performed By: #### 1 [id number] #### [facility] (DEFAULT) [address] [place] [address] Chloride [Moles/Vol] 110 mmol/L Normal 101-111 [facility] Comment on above: Performed By: #### 1 [id number] #### [facility] (DEFAULT) [address] [place] [address]186 CO2 [Moles/Vol] 20 mmol/L Low 21-32 [facility] Comment on above: Performed By: #### 1 [id number] #### [facility] (DEFAULT) [address] [place] [address] 09252 Creatinine [Mass/Vol] 2.51 mg/dL High 0.90-1.30 [facility] Comment on above: Performed By: #### 1 [id number] #### [facility] (DEFAULT) [address] [place] [address] 46691 Glucose [Mass/Vol] 213.0 mg/dL High 74.0-118.0 [facility] Comment on above: Performed By: #### 1 [id number] #### [facility] (DEFAULT) [address] [place] [address] 62031 Osmolality 292 mOsm/L Invalid Interpretation Code [facility] Comment on above: Performed By: #### 1 [id number] #### [facility] (DEFAULT) [address] [place] [address] 33900 Potassium [Moles/Vol] 5.4 mmol/L High 3.6-5.1 [facility] Comment on above: Performed By: #### 1 [id number] #### [facility] (DEFAULT) [address] [place] [address] 05373 Sodium [Moles/Vol] 138.0 mmol/L Normal 136.0-144.0 [facility] Comment on above: Performed By: #### 1 [id number] #### [facility] (DEFAULT) [address] [place] [address] 32891 Urea nitrogen [Mass/Vol] 42 mg/dL High 8- [facility] Comment on above: Performed By: #### 1 [id number] #### [facility] (DEFAULT) [address] [place] [address] 16330 Urea nitrogen/Creatini ne [Mass ratio] 16.7 mg/mg High 4.6-16.2 [facility] Comment on above: Performed By: #### 1 [id number] #### [facility] (DEFAULT) [address] [place] [address] CBC W Auto Differential pane l (Bld)on 11-22-2024 Basophils (Bld) [#/Vol] 10*3/uL Normal <0.11 [facility] Comment on above: Order Comment: Speci men Type: BLOOD SPECIMENOrdering Facility: [facility] Address: [address] [place] [address] Performed By: #### 5 7021-8 ####OF[facility] LABCLIA [id number] [place] [address] [place] Basophils/100 WBC (Bld) 0.4 % Normal [facility] Comment on above: Order Comment: Speci men Type: BLOOD SPECIMENOrdering Facility: [facility] Address: [address] [place] [address] Performed By: #### 5 7021-8 ####[facility] LABCLIA [id number] [place] [id number] [place] Differential cell count method Nom (Bld) Auto Normal [facility] Comment on above: Order Comment: Speci men Type: BLOOD SPECIMENOrdering Facility: [facility] Address: [address] [place] [address] Performed By: #### 5 7021-8 ####[facility] LABCLIA [id number] [place] [address] [place] Eosinophils (Bld) [#/Vol] 10*3/uL Normal <0.46 [facility] Comment on above: Order Comment: Speci men Type: BLOOD SPECIMENOrdering Facility: [facility] Address: [address] [place] [address] Performed By: #### 5 7021-8 ####[facility] LABCLIA [id number] [place] [address] [place] Eosinophils/100 WBC (Bld) 0.4 % Normal [facility] Comment on above: Order Comment: Speci men Type: BLOOD SPECIMENOrdering Facility: [facility] Address: [address] [place] [address] Performed By: #### 5 7021-8 ####[facility] LABCLIA [id number] [address] [place] Erythrocyte distribution width (RBC) [Ratio] 12.9 % Normal 11.5-15.0 [facility] Comment on above: Order Comment: Speci men Type: BLOOD SPECIMENOrdering Facility: [facility] Address: [address] [place] [address] Performed By: #### 5 7021-8 ####[facility]CLIA [id number] [address] [place] Hematocrit (Bld) [Volume fraction] 39.8 % Normal 39.0-51.0 [facility] Comment on above: Order Comment: Speci men Type: BLOOD SPECIMENOrdering Facility: [facility] Address: [address] [place] [address] Performed By: #### 5 7021-8 ####RICARDOGOLDIE [facility] LABCLIA [id number] [address] [place] Hemoglobin (Bld) [Mass/Vol] 12.5 g/dL Low 13.0-17.0 [facility] Comment on above: Order Comment: Speci men Type: BLOOD SPECIMENOrdering Facility: [facility] Address: [address] [place] [address] Performed By: #### 5 7021-8 ####OFELIA [facility] LABCLIA [id number] [address] STATES [facility] Immature granulocytes (Bld) [#/Vol] 10*3/uL Normal <0.10 [facility] Comment on above: Order Comment: Speci men Type: BLOOD SPECIMENOrdering Facility: [facility] Address: [address] [place] [address] Performed By: #### 5 7021-8 ####OFELIA [facility] LABCLIA [id number] [address] Immature granulocytes/100 WBC (Bld) 0.2 % Normal [facility] Comment on above: Order Comment: Speci men Type: BLOOD SPECIMENOrdering Facility: [facility] Address: [address] [place] [address] Performed By: #### 5 7021-8 ####OFELIA [facility] LABCLIA [id number] [place] [address] [place] Lymphocytes (Bld) [#/Vol] 1.63 10*3/uL Normal 1.00-4.00 [facility] Comment on above: Order Comment: Speci men Type: BLOOD SPECIMENOrdering Facility: [facility] Address: [address] [place] [address] Performed By: #### 5 7021-8 ####OFELIA [facility] LABCLIA [id number] [address] [place] Lymphocytes/100 WBC (Bld) 32.0 % Normal [facility] Comment on above: Order Comment: Speci men Type: BLOOD SPECIMENOrdering Facility: [facility] Address: [address] [place] [address] Performed By: #### 5 7021-8 ####OFELIA [facility] LABCLIA [id number] [place] [address] [place] MCH (RBC) [Entitic mass] 29.3 pg Normal 26.0-34.0 [facility] Comment on above: Order Comment: Speci men Type: BLOOD SPECIMENOrdering Facility: [facility] Address: [address] [place] [address] Performed By: #### 5 7021-8 ####OFELIA [facility] LABCLIA [id number] [place] [address] [place] MCHC (RBC) [Mass/Vol] 31.4 g/dL Normal 30.5-36.0 [facility] Comment on above: Order Comment: Speci men Type: BLOOD SPECIMENOrdering Facility: [facility] Address: [address] [place] [address] Performed By: #### 5 7021-8 ####OFELIA [facility] LABCLIA [id number] [address] [place] MCV (RBC) [Entitic vol] 93.2 fL Normal 80.0-100.0 [facility] Comment on above: Order Comment: Speci men Type: BLOOD SPECIMENOrdering Facility: [facility] Address: [address] [place] [address] Performed By: #### 5 7021-8 ####OFELIA [facility] LABCLIA [id number] [place] [address] [place] Monocytes (Bld) [#/Vol] 0.47 10*3/uL Normal <0.87 [facility] Comment on above: Order Comment: Speci men Type: BLOOD SPECIMENOrdering Facility: [facility] Address: [address] [place] [address] Performed By: #### 5 7021-8 ####OFELIA [facility] LABCLIA [id number] [address] Monocytes/100 WBC (Bld) 9.2 % Normal [facility] Comment on above: Order Comment: Speci men Type: BLOOD SPECIMENOrdering Facility: [facility] Address: [address] [place] [address] Performed By: #### 5 7021-8 ####STRONGGOLDIE [facility] LABCLIA [id number] [place] [address] [place] Neutrophils (Bld) [#/Vol] 2.95 10*3/uL Normal 1.45-7.50 [facility] Comment on above: Order Comment: Speci men Type: BLOOD SPECIMENOrdering Facility: [facility] Address: [address] [place] [address] Performed By: #### 5 7021-8 ####OFELIA [facility] LABCLIA [id number] [place] [address] [place] Neutrophils/100 WBC (Bld) 57.8 % Normal [facility] Comment on above: Order Comment: Speci men Type: BLOOD SPECIMENOrdering Facility: [facility] Address: [address] [place] [address] Performed By: #### 5 7021-8 ####OFELIA [facility] LABCLIA [id number] [place] [address] [place] Nucleated RBC (Bld) [#/Vol] 10*3/uL Normal <0.01 [facility] Comment on above: Order Comment: Speci men Type: BLOOD SPECIMENOrdering Facility: [facility] Address: [address] [place] [address] Performed By: #### 5 7021-8 ####OFELIA [facility] LABCLIA [id number] [place] [address] [place] Nucleated RBC/100 WBC (Bld) [Ratio] 0.0 /100 WBC Normal [facility] Comment on above: Order Comment: Speci men Type: BLOOD SPECIMENOrdering Facility: [facility] Address: [address] [place] [address] Performed By: #### 5 7021-8 ####OFELIA [facility] LABCLIA [id number] [place] [address] [place] Platelet mean volume (Bld) [Entitic vol] 9.8 fL Normal 9.0-12.7 [facility] Comment on above: Order Comment: Speci men Type: BLOOD SPECIMENOrdering Facility: [facility] Address: [address] [place] [address] Performed By: #### 5 7021-8 ####STRONGGOLDIE [facility] LABCLIA [id number] [place] [address] [place] Platelets (Bld) [#/Vol] 300 10*3/uL Normal 150-400 [facility] Comment on above: Order Comment: Speci men Type: BLOOD SPECIMENOrdering Facility: [facility] Address: [address] [place] [address] Performed By: #### 5 7021-8 ####JACEGRISELDA [facility] LABIA [id number] [place] [address] [place] RBC (Bld) [#/Vol] 4.27 10*6/uL Normal 4.20-6.00 [facility] Comment on above: Order Comment: Speci men Type: BLOOD SPECIMENOrdering Facility: [facility] Address: [address] [place] [address] Performed By: #### 5 7021-8 ####OFELIA [facility] LABIA [id number] [place] [address] [place] [facility] WBC (Bld) [#/Vol] 5.10 10*3/uL Normal 3.70-11.00 [facility] Comment on above: Order Comment: Speci men Type: BLOOD SPECIMENOrdering Facility: [facility] Address: [address] [place] [address] Performed By: #### 5 7021-8 ####JACEGRISELDA [facility] LABIA [id number] [place] [address] [place] CNOVon 11-22-2024 CNOV Normal [facility] POCT Glucose Levelon 025 Glucose [Mass/Vol] 251 mg/dL High 74-118 [facility] Comment on above: Result Comment: OPR_ ID=[email or web address],TGC FLAG = False Performed By: #### 4 [id number] #### [facility] (DEFAULT) [address] [place] [address] P[facility]act [facility] Parathyrin.intact [Mass/Vol] 99 pg/mL High 1565 [facility] Comment on above: Order Comment: Speci men Type: BLOOD SPECIMENOrdering Facility: [facility] Address: [address] [place] [address] Performed By: #### 2 731-8 ####[facility] LABIA [id number] [place] [id number] [place] Prot/Creat Uron 11-22-2024 Protein/Creatinin e (U) [Mass ratio] 0.24 mg/mg High <0.15 [facility] Comment on above: Order Comment: Speci men Type: URINE SPECIMENOrdering Facility: [facility] Address: [address] [place] [address] Result Comment: Adul t Proteinuria Categories:<0.15 mg/mg is considered normal to mildly increased0.15 - 0.50 mg/mg is considered moderately increased>0.50 mg/mg is considered severely increasedKDIGO. (2013). KDIGO 2012 Clinical Practice Guideline for the Evaluation and Management of Chronic Kidney Disease. Official Journal of the International Society of Nephrology, 3(1), 1-150. Performed By: #### 2 890-2 ####[facility] [id number] [place] [id number] [place] Protein/Creatinine (U) [Mass ratio]on 11-22-2024 Creatinine (U) [Mass/Vol] 130.4 mg/dL Normal 20.0-300.0 [facility] Comment on above: Order Comment: Speci men Type: URINE SPECIMENOrdering Facility: [facility] Address: [address] [place], [place] [address] Performed By: #### 2 890-2 ####[facility] LABIA [id number] [place] [id number] [place] Protein (U) [Mass/Vol] 31 mg/dL High 0-20 [facility] Comment on above: Order Comment: Speci men Type: URINE SPECIMENOrdering Facility: [facility] Address: [address] [place] [address] Performed By: #### 2 890-2 ####[facility] LABCLIA [id number] [place] [address] [place] Renal function 2000 panelon 11-22-2024 Albumin [Mass/Vol] 4.4 g/dL Normal 3.9-4.9 [facility] Comment on above: Order Comment: Speci men Type: BLOOD SPECIMENOrdering Facility: [facility] Address: [address] [place] [address] Performed By: #### 2 4362-6 ####OFELIA [facility] LABCLIA [id number] [place] [address] [place] Anion gap [Moles/Vol] 10 mmol/L Normal 8-15 [facility] Comment on above: Order Comment: Speci men Type: BLOOD SPECIMENOrdering Facility: [facility] Address: [address] [place] [address] Performed By: #### 2 4362-6 ####OFELIA [facility] LABCLIA [id number] [place] [address] [place] Calcium [Mass/Vol] 9.4 mg/dL Normal 8.5-10.2 [facility] Comment on above: Order Comment: Speci men Type: BLOOD SPECIMENOrdering Facility: [facility] Address: [address] [place] [address] Performed By: #### 2 4362-6 ####OFELIA [facility] LABCLIA [id number] [place] [id number] [place] Chloride [Moles/Vol] 110 mmol/L High 98-107 [facility] Comment on above: Order Comment: Speci men Type: BLOOD SPECIMENOrdering Facility: [facility] Address: [address] [place] [address] Performed By: #### 2 4362-6 ####OFELIA [facility] LABCLIA [id number] [place] [id number] [place] CO2 [Moles/Vol] 20 mmol/L Low 22-30 [facility] Comment on above: Order Comment: Speci men Type: BLOOD SPECIMENOrdering Facility: [facility] Address: [address] [place] [address] Performed By: #### 2 4362-6 ####OFELIA [facility] LABCLIA [id number] [place] [address] [place] Creatinine [Mass/Vol] 2.48 mg/dL High 0.73-1.22 [facility] Comment on above: Order Comment: Speci men Type: BLOOD SPECIMENOrdering Facility: [facility] Address: [address] [place] [address] Performed By: #### 2 4362-6 ####OFELIA [facility] LABIA [id number] [address] [place] Creatinine and Glomerular filtration rate.predicted panel (S/P/Bld) 26 mL/min/1.73m??? Low >=60 [facility] Comment on above: Order Comment: Speci men Type: BLOOD SPECIMENOrdering Facility: [facility] Address: [address] [place] [address] Result Comment: Annie mated Glomerular Filtration Rate (eGFR) is calculated using the 2020 CKD-EPI creatinine equation. This equation utilizes serum creatinine, sex, and age as parameters. The creatinine assay has traceable calibration to isotope dilution-mass spectrometry. Refer to KDIGO guidelines for clinical interpretation. In patients with unstable renal function, e.g. those with acute kidney injury, the eGFR may not accurately reflect actual GFR. Performed By: #### 2 4362-6 ####OFELIA [facility] LABCLIA [id number] [place] [address] [place] Glucose [Mass/Vol] 181 mg/dL High 74-99 [facility] Comment on above: Order Comment: Speci men Type: BLOOD SPECIMENOrdering Facility: [facility] Address: [address] [place] [address] Result Comment: The [place] Diabetes Association (ADA) provides guidance for cutoff values for fasting glucose and random glucose. The ADA defines fasting as no caloric intake for at least 8 hours. Fasting plasma glucose results between 100 to 125 mg/dL indicate increased risk for diabetes (prediabetes).Fasting plasma glucose results greater than or equal to 126 mg/dL meet the criteria for diagnosis of diabetes. In the absence of unequivocal hyperglycemia, results should be confirmed by repeat testing. In a patient with classic symptoms of hyperglycemia or hyperglycemic crisis, random plasma glucose results greater than or equal to 200 mg/dL meet the criteria for diagnosis of diabetes.Reference: Standards of Medical Care in Diabetes 2016, [place] [employer]. Diabetes Care. 2016.39(Suppl 1). Performed By: #### 2 4362-6 ####OFELIA [facility] LABCLIA [id number] [place] [address] [place] Phosphate [Mass/Vol] 3.8 mg/dL Normal 2.7-4.8 [facility] Comment on above: Order Comment: Speci [facility] Type: BLOOD SPECIMENOrdering Facility: [facility] Address: [address] [place] [address] Performed By: #### 2 4362-6 ####OFELIA [facility] LABCLIA [id number] [place] [address] [place] Potassium [Moles/Vol] 6.3 mmol/L Critically high 3.7-5.1 [facility] Comment on above: Order Comment: Speci men Type: BLOOD SPECIMENOrdering Facility: [facility] Address: [address] [place] [address] Result Comment: Resu lt rechecked. Performed By: #### 2 4362-6 ####OFELIA [facility] LABCLIA [id number] [place] [address] [place] Sodium [Moles/Vol] 140 mmol/L Normal 136-144 [facility] Comment on above: Order Comment: Speci men Type: BLOOD SPECIMENOrdering Facility: [facility] Address: [address] [place] [address] Performed By: #### 2 4362-6 ####OFELIA [facility] LABCLIA [id number] [place] [id number] [place] Urea nitrogen [Mass/Vol] 39 mg/dL High 9-24 [facility] Comment on above: Order Comment: Speci men Type: BLOOD SPECIMENOrdering Facility: [facility] Address: [address] [place] [address] Performed By: #### 2 4362-6 ####OFELIA [facility] LABCLIA [id number] [place] [id number] [place] URINALYSIS, DIPSTICK ONLYon 11-22-2024 Bilirubin Ql (U) Negative Normal Negative [facility] Comment on above: Order Comment: Speci men Type: URINE SPECIMENOrdering Facility: [facility] Address: [address] [place] [address] Performed By: #### U A ####[facility] LABCLIA [id number] [place] [address] [place] Clarity (Unsp spec) Clear Normal Clear [facility] Comment on above: Order Comment: Speci men Type: URINE SPECIMENOrdering Facility: [facility] Address: [address] [place] [address] Performed By: #### U A ####[facility] LABCLIA [id number] [place] [address] [place] Color (U) Yellow Normal Yellow [facility] Comment on above: Order Comment: Speci men Type: URINE SPECIMENOrdering Facility: [facility] Address: [address] [place] [address] Performed By: #### U A ####[facility] LABCLIA [id number] [place] [id number] [place] Glucose Test strip (U) [Mass/Vol] 3+ Abnormal Negative [facility] Comment on above: Order Comment: Speci men Type: URINE SPECIMENOrdering Facility: [facility] Address: [address] [place] [address] Performed By: #### U A ####[facility] LABCLIA [id number] [address] [place] [address] [place] Hemoglobin Ql (U) Negative Normal Negative [facility] Comment on above: Order Comment: Speci men Type: URINE SPECIMENOrdering Facility: [facility] Address: [address] [place] [address] Performed By: #### U A ####[facility] LABCLIA [id number] [place] [address] [place] Ketones Ql (U) Negative Normal Negative [facility] Comment on above: Order Comment: Speci men Type: URINE SPECIMENOrdering Facility: [facility] Address: [address] [place] [address] Performed By: #### U A ####[facility] LABCLIA [id number] [place] [address] [place] Leukocyte esterase Test strip Ql (U) Negative Normal Negative [facility] Comment on above: Order Comment: Speci men Type: URINE SPECIMENOrdering Facility: [facility] Address: [address] [place] [address] Performed By: #### U A ####[facility] LABCLIA [id number] [place] [address] [place] Nitrite Ql (U) Negative Normal Negative [facility] Comment on above: Order Comment: Speci men Type: URINE SPECIMENOrdering Facility: [facility] Address: [address] [place] [address] Performed By: #### U A ####[facility] LABCLIA [id number] [place] [id number] [place] pH (U) 5.5 [pH] Normal <8.5 [facility] Comment on above: Order Comment: Speci men Type: URINE SPECIMENOrdering Facility: [facility] Address: [address] [place] [address] Performed By: #### U A ####[facility] LABIA [id number] [place] [id number] [place] Protein (U) [Mass/Vol] 1+ Abnormal Negative [facility] Comment on above: Order Comment: Speci men Type: URINE SPECIMENOrdering Facility: [facility] Address: [address] [place] [address] Performed By: #### U A ####[facility] [id number] [place] [address] [place] Specific gravity (U) [Rel density] 1.023 Normal 1.005-1.030 [facility] Comment on above: Order Comment: Speci men Type: URINE SPECIMENOrdering Facility: [facility] Address: [address] [place] [address] Performed By: #### U A ####[facility] [id number] [place] [address] [place] Urobilinogen Ql (U) 0.2 EU/dL Normal 0.2-1.0 EU/dL [facility] Comment on above: Order Comment: Speci men Type: URINE SPECIMENOrdering Facility: [facility] Address: [address] [place] [address] Performed By: #### U A ####[facility] [id number] [place] [id number] [place] CNOVon 11-20-2024 CNOV Normal [facility] CNOVon 10-31-2024 CNOV Normal [facility] HEMOGLOBIN A1C (POC)on 10-31 HbA1c (Bld) [Mass fraction] 6.4 % Abnormal 4.3 - 5.6 % [facility] Comment on above: Location:[address], [address] Point of care (POC) Hemoglobin A1c (HGBA1C) [...] specific diabetes management situations: The POC device barometers calibrator provides a normal range of 4.2% to 6.5% for the HGBA1C POC test. However, the [place] Diabetes [employer] guidelines indicate that patients with [...] anemia) that alter red blood cell lifespan. Interpretation and review of laboratory results Abnormal [facility] CNOVon 10-23-2024 CNOV Normal [facility] CNOVon 09-25-2024 CNOV Normal [facility] XR FOOT 3V AP/LAT/OBL RTon 0 09-25-2024 XR FOOT 3V AP/LAT/OBL RT Normal [facility] CNPNon 09-20-2024 CNPN Normal [facility] OCT MACULA CIRRUS OU (BOTH E YES)on 09-06-2024 [facility] Radiology Study observation (narrative) [facility] CNOVon 08-27-2024 CNOV Normal [facility] CNPNon 08-06-2024 CNPN Normal [facility] CNOVon 07-23-2024 CNOV Normal [facility] CNPNon 07-23-2024 CNPN Normal [facility] CBC W Auto Differential pane l (Bld)on 07-19-2024 Basophils (Bld) [#/Vol] 10*3/uL Normal <0.11 [facility] Comment on above: Order Comment: Speci men Type: BLOOD SPECIMENOrdering Facility: [facility] Address: [address] [place], [place] [address] [address] Performed By: #### 5 7021-8 ####[facility] ANSONWNCLIA [id number] [place] [address] [place] Basophils/100 WBC (Bld) 0.4 % Normal [facility] Comment on above: Order Comment: Speci men Type: BLOOD SPECIMENOrdering Facility: [facility] Address: [address] [place] [address] Performed By: #### 5 7021-8 ####[facility] GISELAGRANTS PASSLEANDERLIA [id number] [place] [address] [place] Differential cell count method Nom (Bld) Auto Normal [facility] Comment on above: Order Comment: Speci men Type: BLOOD SPECIMENOrdering Facility: [facility] Address: [address] [place] [address] Performed By: #### 5 7021-8 ####[facility] GISELAGRANTS PASSLEANDERSHILOHA [id number] [place] [address] [place] Eosinophils (Bld) [#/Vol] 0.05 10*3/uL Normal <0.46 [facility] Comment on above: Order Comment: Speci men Type: BLOOD SPECIMENOrdering Facility: [facility] Address: [address] [place] [address] Performed By: #### 5 7021-8 ####[facility] HOS[facility]ITALLEANDERLIA [id number] [place] [address] [place] Eosinophils/100 WBC (Bld) 1.1 % Normal [facility] Comment on above: Order Comment: Speci men Type: BLOOD SPECIMENOrdering Facility: [facility] Address: [address] [place] [address] Performed By: #### 5 7021-8 ####[facility]ITAL[facility]CL[facility] [id number] [place] [address] [place] Erythrocyte distribution width (RBC) [Ratio] 12.4 % Normal 11.5-15.0 [facility] Comment on above: Order Comment: Speci men Type: BLOOD SPECIMENOrdering Facility: [facility] Address: [address] [place] [address] Performed By: #### 5 7021-8 ####[facility] [id number] [place] [address] [place] Hematocrit (Bld) [Volume fraction] 39.1 % Normal 39.0-51.0 [facility] Comment on above: Order Comment: Speci men Type: BLOOD SPECIMENOrdering Facility: [facility] Address: [address] [place] [address] Performed By: #### 5 7021-8 ####[facility] [id number] [place] [address] [place] Hemoglobin (Bld) [Mass/Vol] 12.5 g/dL Low 13.0-17.0 [facility] Comment on above: Order Comment: Speci men Type: BLOOD SPECIMENOrdering Facility: [facility] Address: [address] [place] [address] Performed By: #### 5 7021-8 ####[facility]ITALNCLI [id number] [place] [address] [place] Immature granulocytes (Bld) [#/Vol] 10*3/uL Normal <0.10 [facility] Comment on above: Order Comment: Speci men Type: BLOOD SPECIMENOrdering Facility: [facility] Address: [address] [place] [address] Performed By: #### 5 7021-8 ####[facility] [id number] [place] [address] [place] Immature granulocytes/100 WBC (Bld) 0.2 % Normal [facility] Comment on above: Order Comment: Speci men Type: BLOOD SPECIMENOrdering Facility: [facility] Address: [address] [place] [address] Performed By: #### 5 7021-8 ####[facility] MILLWNCLIA [id number] [place] [address] [place] Lymphocytes (Bld) [#/Vol] 1.53 10*3/uL Normal 1.00-4.00 [facility] Comment on above: Order Comment: Speci men Type: BLOOD SPECIMENOrdering Facility: [facility] Address: [address] [place] [address] Performed By: #### 5 7021-8 ####[facility] MILLWNCLIA [id number] [place] [address] [place] Lymphocytes/100 WBC (Bld) 33.0 % Normal [facility] Comment on above: Order Comment: Speci men Type: BLOOD SPECIMENOrdering Facility: [facility] Address: [address] [place] [address] Performed By: #### 5 7021-8 ####[facility]CL[facility] [id number] [place] [address] [place] MCH (RBC) [Entitic mass] 28.7 pg Normal 26.0-34.0 [facility] Comment on above: Order Comment: Speci men Type: BLOOD SPECIMENOrdering Facility: [facility] Address: [address] [place] [address] Performed By: #### 5 7021-8 ####[facility] MILLWNCLIA [id number] [place] [address] [place] MCHC (RBC) [Mass/Vol] 32.0 g/dL Normal 30.5-36.0 [facility] Comment on above: Order Comment: Speci men Type: BLOOD SPECIMENOrdering Facility: [facility] Address: [address] [place] [address] Performed By: #### 5 7021-8 ####[facility] MILLGRANTS PASSNCLIA [id number] [place] [address] [place] MCV (RBC) [Entitic vol] 89.9 fL Normal 80.0-100.0 [facility] Comment on above: Order Comment: Speci men Type: BLOOD SPECIMENOrdering Facility: [facility] Address: [address] [place] [address] Performed By: #### 5 7021-8 ####[facility] [id number] [place] [address] [place] Monocytes (Bld) [#/Vol] 0.66 10*3/uL Normal <0.87 [facility] Comment on above: Order Comment: Speci men Type: BLOOD SPECIMENOrdering Facility: [facility] Address: [address] [place] [address] Performed By: #### 5 7021-8 ####[facility] [id number] [place] [address] [place] Monocytes/100 WBC (Bld) 14.2 % Normal [facility] Comment on above: Order Comment: Speci men Type: BLOOD SPECIMENOrdering Facility: [facility] Address: [address] [place] [address] Performed By: #### 5 7021-8 ####[facility] [id number] [place] [address] [place] Neutrophils (Bld) [#/Vol] 2.37 10*3/uL Normal 1.45-7.50 [facility] Comment on above: Order Comment: Speci men Type: BLOOD SPECIMENOrdering Facility: [facility] Address: [address] [place] [address] Performed By: #### 5 7021-8 ####[facility]ITALNCL[facility] [id number] [place] [address] [place] Neutrophils/100 WBC (Bld) 51.1 % Normal [facility] Comment on above: Order Comment: Speci men Type: BLOOD SPECIMENOrdering Facility: [facility] Address: [address] [place] [address] Performed By: #### 5 7021-8 ####[facility]OSPITALNCSHILOH [id number] [place] [address] [place] Nucleated RBC (Bld) [#/Vol] 10*3/uL Normal <0.01 [facility] Comment on above: Order Comment: Speci men Type: BLOOD SPECIMENOrdering Facility: [facility] Address: [address] [place] [address] Performed By: #### 5 7021-8 ####[facility]ITALNCUIN[facility] [id number] [place] [address] [place] Nucleated RBC/100 WBC (Bld) [Ratio] 0.0 /100 WBC Normal [facility] Comment on above: Order Comment: Speci men Type: BLOOD SPECIMENOrdering Facility: [facility] Address: [address] [place] [address] Performed By: #### 5 7021-8 ####[facility] [id number] [place] [address] [place] Platelet mean volume (Bld) [Entitic vol] 10.1 fL Normal 9.0-12.7 [facility] Comment on above: Order Comment: Speci men Type: BLOOD SPECIMENOrdering Facility: [facility] Address: [address] [place] [address] Performed By: #### 5 7021-8 ####[facility]ITALNCLI [id number] [place] [address] [place] Platelets (Bld) [#/Vol] 298 10*3/uL Normal 150-400 [facility] Comment on above: Order Comment: Speci men Type: BLOOD SPECIMENOrdering Facility: [facility] Address: [address] [place] [address] Performed By: #### 5 7021-8 ####[facility]ITALNCLIA [id number] [place] [address] [place] RBC (Bld) [#/Vol] 4.35 10*6/uL Normal 4.20-6.00 [facility] Comment on above: Order Comment: Speci men Type: BLOOD SPECIMENOrdering Facility: [facility] Address: [address] [place] [address] Performed By: #### 5 7021-8 ####[facility]ITALNCLIA [id number] [place] [address] [place] WBC (Bld) [#/Vol] 4.64 10*3/uL Normal 3.70-11.00 [facility] Comment on above: Order Comment: Speci men Type: BLOOD SPECIMENOrdering Facility: [facility] Address: [address] [place] [address] Performed By: #### 5 7021-8 ####[facility] [id number] [place] [address] [place] CNOVon 07-19-2024 CNOV Normal [facility] Prot/Creat Uron 07-19-2024 Protein/Creatinin e (U) [Mass ratio] 0.29 mg/mg High <0.15 [facility] Comment on above: Order Comment: Speci men Type: URINE SPECIMENOrdering Facility: [facility] Address: [address] [place] [address] Result Comment: Adul t Proteinuria Categories:<0.15 mg/mg is considered normal to mildly increased0.15 - 0.50 mg/mg is considered moderately increased>0.50 mg/mg is considered severely increasedKDIGO. (2013). KDIGO 2012 Clinical Practice Guideline for the Evaluation and Management of Chronic Kidney Disease. Official Journal of the International Society of Nephrology, 3(1), 1-150. Performed By: #### 2 890-2 ####[facility] LAB[facility] [id number] [address] [address] [place] Protein/Creatinine (U) [Mass ratio]on 07-19-2024 Creatinine (U) [Mass/Vol] 93.7 mg/dL Normal 20.0-300.0 [facility] Comment on above: Order Comment: Speci men Type: URINE SPECIMENOrdering Facility: [facility] Address: [address] [place] [address] Performed By: #### 2 890-2 ####[facility] [id number] [place] [id number] [place] Protein (U) [Mass/Vol] 27 mg/dL High 0-20 [facility] Comment on above: Order Comment: Speci men Type: URINE SPECIMENOrdering Facility: [facility] Address: [address] [place] [address] Performed By: #### 2 890-2 ####[facility] [id number] [place] [id number] [place] Renal function 2000 panelon 07-19-2024 Albumin [Mass/Vol] 4.5 g/dL Normal 3.9-4.9 [facility] Comment on above: Order Comment: Speci men Type: BLOOD SPECIMENOrdering Facility: [facility] Address: [address] [place] [address] Performed By: #### 2 4362-6 ####[facility] HOSPITALWLEANDERLIA [id number] [place] [address] [place] Anion gap [Moles/Vol] 8 mmol/L Normal 8-15 [facility] Comment on above: Order Comment: Speci men Type: BLOOD SPECIMENOrdering Facility: [facility] Address: [address] [place] [address] Performed By: #### 2 4362-6 ####[facility] HOSPITALWLEANDERLIA [id number] [place] [address] [place] Calcium [Mass/Vol] 9.3 mg/dL Normal 8.5-10.2 [facility] Comment on above: Order Comment: Speci men Type: BLOOD SPECIMENOrdering Facility: [facility] Address: [address] [place] [address] Performed By: #### 2 4362-6 ####[facility] HOSPITALLEANDERLIA [id number] [place] [address] [place] Chloride [Moles/Vol] 106 mmol/L Normal 98-107 [facility] Comment on above: Order Comment: Speci men Type: BLOOD SPECIMENOrdering Facility: [facility] Address: [address] [place] [address] Performed By: #### 2 4362-6 ####[facility] [id number] [place] [address] [place] CO2 [Moles/Vol] 24 mmol/L Normal 22-30 [facility] Comment on above: Order Comment: Speci men Type: BLOOD SPECIMENOrdering Facility: [facility] Address: [address] [place] [address] Performed By: #### 2 4362-6 ####[facility] BUCYRUS HOSPITALLIA [id number] [place] [address] [place] Creatinine [Mass/Vol] 2.54 mg/dL High 0.73-1.22 [facility] Comment on above: Order Comment: Speci men Type: BLOOD SPECIMENOrdering Facility: [facility] Address: [address] [place] [address] Performed By: #### 2 4362-6 ####[facility] HOSPITALNCLIA [id number] [place] [address] [place] Creatinine and Glomerular filtration rate.predicted panel (S/P/Bld) 25 mL/min/1.73m??? Low >=60 [facility] Comment on above: Order Comment: Shiva rivera Type: BLOOD SPECIMENOrdering Facility: [facility] Address: [address] [place] [address] Result Comment: Annie mated Glomerular Filtration Rate (eGFR) is calculated using the 2020 CKD-EPI creatinine equation. This equation utilizes serum creatinine, sex, and age as parameters. The creatinine assay has traceable calibration to isotope dilution-mass spectrometry. Refer to KDIGO guidelines for clinical interpretation. In patients with unstable renal function, e.g. those with acute kidney injury, the eGFR may not accurately reflect actual GFR. Performed By: #### 2 4362-6 ####[facility] [id number] [place] [address] [place] Glucose [Mass/Vol] 206 mg/dL High 74-99 [facility] Comment on above: Order Comment: Shiva rivera Type: BLOOD SPECIMENOrdering Facility: [facility] Address: [address] [place] [address] Result Comment: The [place] Diabetes Association (ADA) provides guidance for cutoff values for fasting glucose and random glucose. The ADA defines fasting as no caloric intake for at least 8 hours. Fasting plasma glucose results between 100 to 125 mg/dL indicate increased risk for diabetes (prediabetes).Fasting plasma glucose results greater than or equal to 126 mg/dL meet the criteria for diagnosis of diabetes. In the absence of unequivocal hyperglycemia, results should be confirmed by repeat testing. In a patient with classic symptoms of hyperglycemia or hyperglycemic crisis, random plasma glucose results greater than or equal to 200 mg/dL meet the criteria for diagnosis of diabetes.Reference: Standards of Medical Care in Diabetes 2016, [place] Diabetes Association. Diabetes Care. 2016.39(Suppl 1). Performed By: #### 2 4362-6 ####[facility] [id number] [place] [address] [place] Phosphate [Mass/Vol] 4.8 mg/dL Normal 2.7-4.8 [facility] Comment on above: Order Comment: Shiva rivera Type: BLOOD SPECIMENOrdering Facility: [facility] Address: [address] [place] [address] Performed By: #### 2 4362-6 ####[facility] MILLPRASHANTHWNCLIA [id number] [place] [address] [place] Potassium [Moles/Vol] 5.4 mmol/L High 3.7-5.1 [facility] Comment on above: Order Comment: Speci men Type: BLOOD SPECIMENOrdering Facility: [facility] Address: [address] [place] [address] Performed By: #### 2 4362-6 ####[facility]ITALNCLIA [id number] [place] [address] [place] Sodium [Moles/Vol] 138 mmol/L Normal 136-144 [facility] Comment on above: Order Comment: Speci men Type: BLOOD SPECIMENOrdering Facility: [facility] Address: [address] [place] [address] Performed By: #### 2 4362-6 ####[facility]ITALNCLIA [id number] [place] [address] [place] Urea nitrogen [Mass/Vol] 35 mg/dL High 9-24 [facility] Comment on above: Order Comment: Speci men Type: BLOOD SPECIMENOrdering Facility: [facility] Address: [address] [place] [address] Performed By: #### 2 4362-6 ####[facility]ITALNCLIA [id number] [place] [address] [place] PSA,Total - Annual Screenon 07-12-2024 PSA,TOT SCREEN 1.00 ng/mL Normal 0.00-4.00 [facility] Comment on above: Result Comment: This test was performed using the TPSA assay method for the [employer] chemistry system. Values obtained with different assay methods cannot be used interchangably. When changing PSA assays in the course of monitoring a patient, additional sequential testing should be carried out to confirm baseline values. Performed By: #### L 501.9910 #### [facility] [address] [place], [address] CNPNon 07-02-2024 CNPN Normal [facility] CNPNon 06-18-2024 CNPN Normal [facility] CNOVon 06-12-2024 CNOV Normal [facility] HEMOGLOBIN A1C (POC)on 06-12 HbA1c (Bld) [Mass fraction] 6.5 % Abnormal 4.3 - 5.6 % [facility] Comment on above: Location:[address], [place], [address] Point of care (POC) Hemoglobin A1c (HGBA1C) [...] specific diabetes management situations: The POC device barometers calibrator provides a normal range of 4.2% to 6.5% for the HGBA1C POC test. However, the [place] Diabetes Association guidelines indicate that patients with [...] anemia) that alter red blood cell lifespan. Interpretation and review of laboratory results Abnormal [facility] Lipid 1996 panelon 4 Cholesterol [Mass/Vol] 115 mg/dL Normal <200 [facility] Comment on above: Order Comment: Speci men Type: BLOOD SPECIMENOrdering Facility: [facility] Address: [address] [place] [address] Result Comment: <200 mg/dL, Desirable 200-239 mg/dL, Borderline high>239 mg/dL, High Performed By: #### 2 4331-1 ####[facility] LABCLIA [id number] [address] Cholesterol in HDL [Mass/Vol] 50 mg/dL Normal >39 [facility] Comment on above: Order Comment: Shiva rivera Type: BLOOD SPECIMENOrdering Facility: [facility] Address: [address] [place] [address] Result Comment: 40-5 9 mg/dL, Acceptable>59 mg/dL, High: Negative risk factor for coronary heart disease<40 mg/dL, Low: Positive risk factor for coronary heart disease Performed By: #### 2 4331-1 ####[facility] LABCLIA [id number] [address] Cholesterol in LDL [Mass/Vol] 49 mg/dL Normal <100 [facility] Comment on above: Order Comment: Shiva rivera Type: BLOOD SPECIMENOrdering Facility: [facility] Address: [address] [place] [address] Result Comment: <100 mg/dL, Optimal 100-129 mg/dL, Near optimal/above optimal 130-159 mg/dL, Borderline high 160-189 mg/dL, High>189 mg/dL, Very highSecondary prevention optimal LDL Cholesterol levels are recommended to be < 70 mg/dL Performed By: #### 2 4331-1 ####[facility] LABCLIA [id number] [address] Cholesterol in LDL/Cholesterol in HDL [Mass ratio] 0.98 {ratio} Normal <2.54 [facility] Comment on above: Order Comment: Shiva miguel Type: BLOOD SPECIMENOrdering Facility: [facility] Address: [address] [place] [address] Result Comment: Sparkle carrington:1. National Cholesterol Education Program ATP III Guideline At-A-Glance Quick Desk Reference: National Heart, Lung, and Blood Pinckard. National Institutes of Health. 2001: NIH Publication No. 01-3305.2. An International Atherosclerosis Society position paper: global recommendations for the management of dyslipidemia: executive summary, Atherosclerosis. 2014: 232(2):410-413. Performed By: #### 2 4331-1 ####[facility] LABCL[facility] [id number] [place] [id number] [place] Cholesterol in VLDL [Mass/Vol] 16 mg/dL Normal <30 [facility] Comment on above: Order Comment: Speci men Type: BLOOD SPECIMENOrdering Facility: [facility] Address: [address] [place] [address] Performed By: #### 2 4331-1 ####[facility] LABCL[facility] [id number] [place] [id number] [place] Cholesterol non HDL [Mass/Vol] 65 mg/dL Normal <130 [facility] Comment on above: Order Comment: Speci men Type: BLOOD SPECIMENOrdering Facility: [facility] Address: [address] [place] [address] Result Comment: <130 mg/dL, Optimal 130-159 mg/dL, Near optimal/above optimal 160-189 mg/dL, Borderline high 190-219 mg/dL, High>219 mg/dL, Very highSecondary prevention optimal non HDL Cholesterol levels are recommended to be <100 mg/dL Performed By: #### 2 4331-1 ####[facility] LABCLIA [id number] [place] [address] [place] Cholesterol.total /Cholesterol in HDL [Mass ratio] 2.30 {ratio} Normal <5.10 [facility] Comment on above: Order Comment: Speci men Type: BLOOD SPECIMENOrdering Facility: [facility] Address: [address] [place], [place] [address] Performed By: #### 2 4331-1 ####[facility] LABCL[facility] [id number] [place] [address] [place] FASTING TIME 11 hrs Normal [facility] Comment on above: Order Comment: Speci men Type: BLOOD SPECIMENOrdering Facility: [facility] Address: [address] [place], [place] [address] Performed By: #### 2 4331-1 ####[facility] LABCL[facility] [id number] [place] [address] [place] Triglyceride [Mass/Vol] 78 mg/dL Normal <150 [facility] Comment on above: Order Comment: Speci men Type: BLOOD SPECIMENOrdering Facility: [facility] Address: [address] [place] [address] Result Comment: <150 mg/dL, Normal 150-199 mg/dL, Borderline high 200-499 mg/dL, High>499 mg/dL, Very high Performed By: #### 2 4331-1 ####[facility] LABCL[facility] [id number] [place] [address] [place] CNOVon 06-07-2024 CNOV Normal [facility] CNPNon 06-05-2024 CNPN Normal [facility] CNOVon 05-31-2024 CNOV Normal [facility] CNPNon 05-31-2024 CNPN Normal [facility] OCT OPTIC NERVE CIRRUS OU (B OTH EYES)on 05-09-2024 [facility] Radiology Study observation (narrative) [facility] CNOVon 05-03-2024 CNOV Normal [facility] CBC W Auto Differential pane l (Bld)on 10-10-2023 Basophils (Bld) [#/Vol] <0.11 k/uL [facility] Basophils/100 WBC (Bld) 0.4 % [facility] Differential cell count method Nom (Bld) Auto [facility] Eosinophils (Bld) [#/Vol] 0.03 10*3/uL <0.46 k/uL [facility] Eosinophils/100 WBC (Bld) 0.7 % [facility] Erythrocyte distribution width (RBC) [Ratio] 12.3 % 11.5 - 15.0 % [facility] Hematocrit (Bld) [Volume fraction] 40.1 % 39.0 - 51.0 % [facility] Hemoglobin (Bld) [Mass/Vol] 12.8 g/dL Low 13.0 - 17.0 g/dL [facility] Immature granulocytes (Bld) [#/Vol] <0.10 k/uL [facility] Immature granulocytes/100 WBC (Bld) 0.2 % [facility] Lymphocytes (Bld) [#/Vol] 1.55 10*3/uL 1.00 - 4.00 k/uL [facility] Lymphocytes/100 WBC (Bld) 34.5 % [facility] MCH (RBC) [Entitic mass] 29.4 pg 26.0 - 34.0 pg [facility] MCHC (RBC) [Mass/Vol] 31.9 g/dL 30.5 - 36.0 g/dL [facility] MCV (RBC) [Entitic vol] 92.2 fL 80.0 - 100.0 fL [facility] Monocytes (Bld) [#/Vol] 0.49 10*3/uL <0.87 k/uL [facility] Monocytes/100 WBC (Bld) 10.9 % [facility] Neutrophils (Bld) [#/Vol] 2.39 10*3/uL 1.45 - 7.50 k/uL [facility] Neutrophils/100 WBC (Bld) 53.3 % [facility] Nucleated RBC (Bld) [#/Vol] <0.01 k/uL [facility] Nucleated RBC/100 WBC (Bld) [Ratio] 0.0 /100 WBC [facility] Platelet mean volume (Bld) [Entitic vol] 10.6 fL 9.0 - 12.7 fL [facility] Platelets (Bld) [#/Vol] 279 10*3/uL 150 - 400 k/uL [facility] RBC (Bld) [#/Vol] 4.35 10*6/uL 4.20 - 6.0 0 m/uL [facility] WBC (Bld) [#/Vol] 4.49 10*3/uL 3.70 - 11.00 k/uL [facility] HEMOGLOBIN A1C (POC)on 10-03 HbA1c (Bld) [Mass fraction] 6.3 % Abnormal 4.3 - 5.6 % [facility] Culture, urineOrdered By: Dotty Lucia on 06-23-2023 Bacteria identified Cx Nom (U) Marley albicans [facility] STREP A MOLECULAR (POC)on Procedural Control Valid [facility] Strep A (POCT) Negative Negative [facility] Culture, urineOrdered By: Chris Kelley on 05-05-2023 Bacteria identified Cx Nom (U) Escherichia coli [facility] HEMOGLOBIN A1C (POC)on 02-09 HbA1c (Bld) [Mass fraction] 5.9 % 4.2 - 5.6 % [facility] CNOVon 05-27-2022 CNOV Office Visit (PLWDMR ) ESVIN WEST SR. ([id number]) 1945 M Date Time Provider Department 05/27/22 4:00 PM [facility] PLWDMR During your visit today, we recorded the following information about you: Temperature Pulse Blood pressure 97.5 degrees 61/minute 139/71 Estefania Herrera RN 05/27/2022 4:32 PM Signed Nursing Documentation Pertinent Medical History: long hx of callous, CKD, HTN, DM Wound Etiology according to patient: Callous fell off - wound beneath Patient arrived via: ambulatory with Home Care Company/Nursing Facility: none Consent captured for debridement per Sulma until September 2022 Consent captured for debridement per Mae Ca until September 2022 Anticoagulant Therapy: ASA 81 ACTIVE CARE PER PROVIDER: Mae Campbell DPM WOUND ASSESSMENT: Refer to Provider's [...] with 2 Conform Other: Single layer of Tubi-it audit manager size D. COMPRESSION: N/A SPECIAL NEEDS: Coordination of care - N/A Emotional support N/A OR set-up N/A Dermatology Sales Representative N/A Incontinence needs N/A DISCHARGED in stable [...] the wound(s). Visual demonstration on how to apply the dressing with teach back method. Signs AND symptoms of infection were reviewed: Increased redness, swelling, pain, green/yellow drainage, fever and/or chills would all need to be evaluated by a Physician. Patient received typed home-going wound care instructions and has expressed intent to comply. OTHER EDUCATION: reviewed importance of regular podiatry care and reviewed importance of daily foot checks with rationale Education performed regarding lymphedema/edema: Elevation [...] Yes If Yes to ALL questions above, co (more content not included)... [facility] 05-13-2022 [facility] Office Visit (PLWDMR ) ESVIN WEST SR. ([id number]) 1945 M Date Time Provider Department 05/13/22 3:00 PM [facility] PLWDMR During your visit today, we recorded the following information about you: Temperature Pulse Respiration Blood pressure 97.6 degrees 86/minute 20/minute 149/76 Benson Ngo RN 05/13/2022 3:44 PM Signed Nursing Documentation Pertinent Medical History: long hx of callous, CKD, HTN, DM Wound Etiology according to patient: Ezraous fell off - wound beneath Patient arrived via: ambulatory with Home Care Company/Nursing Facility: none Consent captured for debridement per Sulma until September 2022 Consent captured for debridement per Mae Ca until September 2022 Anticoagulant Therapy: ASA 81 ACTIVE CARE PER PROVIDER: Mae Campbell DPM WOUND ASSESSMENT: Refer to Provider's [...] with 2 Conform Other: Single layer of Tubi-it audit manager size D. WOUND # 2 - LOCATION: Right Second Toe - Formed from burst blister DEBRIDEMENT: SubQ Post debridement measurements if applicable: L: 0.5 cm x W: 0.4 cm x D: 0.1 cm Cleansed with: Betadine Applied to krystyna-wound skin: Betadine Applied to wound bed: Promogran, Adaptic Covered and secured with: 2x2 gauze and wrap with 2 Conform Other: Single layer of Tubi-it audit manager size D. COMPRESSION: Single layer Tubi-it audit manager size D bilateral SPECIAL NEEDS: Coordination of care - [facility] for dressing supplies Emotional support N/A OR set-up N/A Dermatology Sales Representative N/A Incontinence needs N/A DISCHARGED in stable condition to: Home Ambulatory Global surgical period dates if applicable: N/A PLAN/ORDERS: Return to the wound center to see Dr. Campbell in 2 -3 weeks - or sooner if a problem. Please contact your PCP about your high blood pressure Continue aggressive nutritional support for optimal wound healing. [facility] for ordering supplies: Visit your access clerk every 10-12 weeks for callous control. EDUCATION: The patient/family was instructed how to cleanse the wound(s). Visual demonstration on how to apply the dressing with teach back method. Signs AND symptoms of infection were reviewed: Increased redness, [...] and The intended procedure Time Out Communication: 3849 Intended patient and procedure match the source documents. Consent documented and matches the intended procedure. No relevant labs, photos, and/or imaging studies were applicable for review. Sign Out: 5349 SIGN OUT (optional for EMERGENT procedures): No specimen collected. Current HBOT Status: Active or Complete - see screening below WOUND CENTER HYP (more content not included)... [facility] 04-26-2022 [facility] Office Visit (PLWDMR ) ESVIN WEST SR. ([id number]) 1945 M Date Time Provider Department 04/26/22 3:00 PM [facility] During your visit today, we recorded the following information about you: Temperature Pulse Respiration Blood pressure 97.8 degrees 60/minute 20/minute 124/67 Avinash Stratton RN 04/26/2022 3:11 PM Addendum WOUND CARE INSTRUCTIONS- Esvin West Sr. Wound location: Right Great Toe AND Right Second Toe 1. Wash your hands with soap and water before and after wound care. 2. Gather all supplies needed. 3. Wash wound with wound wash with dial soap and water. Pat dry. (Using it's own towel to dry the wound area) 4. Swisher wound and krystyna-wound with betadine. 5. Apply Promogran (foam like material) into wound bed. Please moisten the Promogran with 1-2 drops of Vashe to make it easier to apply. 6. Cover with Adaptic (mesh like material) 7. Cover with 4x4 gauze and wrap with 2 conform roll. Secure with tape. 8. Change your dressing: every other day or if needed to keep the dressing dry. Apply Tubi-it audit manager to both legs to help with swelling. Apply in the morning and remove at bedtime. COMPRESSION : Keep dressing dry and intact until next wound care appointment. Compression wrap must be removed if: It becomes wet or soiled [...] doctor Report any of the following changes [phone] or go to the Emergency Department: Fever [...] for optimal wound healing. Order faxed to [facility] for updated supplies. Please call them tomorrow to confirm your order: Visit your access clerk every 10-12 weeks for callous control. Mae Campbell DPM/sp/haylee Stratton RN 04/26/2022 3:18 PM Signed Nursing Documentation Pertinent Medical History: long hx of callous, CKD, HTN, DM Wound Etiology according to patient: Callous fell off - wound beneath Patient arrived via: ambulatory with Home Care Company/Nursing Facility: none Consent captured for debridement per Sulma until September 2022 Consent captured for debridement per Mae Ca until September 2022 Anticoagulant Therapy: ASA 81 ACTIVE CARE PER PROVIDER: Mae Campbell DPM WOUND ASSESSMENT: Refer to Provider's [...] with 2 Conform Other: Single layer of Tubi-it audit manager size D. WOUND # 2 - LOCATION: Right Second Toe - Formed from burst blister DEBRIDEMENT: SubQ Post debridement measurements if applicable: L: 0.7 cm (more content not included)... [facility] XR FOOT 3V AP/LAT/OBL RTon 1 XR FOOT 3V AP/LAT/OBL RT * * *Final Report* * * DATE OF EXAM: Apr 26 2022 3:50PM MDX 5337 - XR FOOT 3V AP/LAT/OBL RT / PROCEDURE REASON: multiple diagnoses * * * * Physician Interpretation * * * * HISTORY: 77 years old Clinical information: Skin ulcer of right great toe, limited to breakdown of skin (HCC) Skin ulcer of second toe of right foot, limited to breakdown of skin (HCC) RIGHT FOOT TECHNIQUE: Images: XR FOOT 3V AP/LAT/OBL RT Comparison: None. RESULT: Findings: Right foot radiographs osteophytes formation subjacent to the interphalangeal joint and first metatarsophalangeal joint. Pes planus. Osteophyte formation involving multiple dorsal midfoot bones. Plantar calcaneal spur. Deformity of the talus. No acute fracture identified. Soft tissue calcification versus foreign body in the plantar soft tissues of the heel. IMPRESSION: No radiographic evidence of osteomyelitis. Soft tissue calcification versus foreign body in the plantar soft tissues of the heel. Degenerative change. Lecturer In Marketing: DEANNA Transcribe Date/Time: Apr 27 2022 4:25P Dictated by : CHRISTINE SANDOVAL MD This examination was interpreted and the report reviewed and electronically signed by: CHRISTINE SANDOVAL MD on Apr 27 2022 4:26PM EST [id number] [facility] 04-22-2022 [facility] Telephone (PLWDMR) ESVIN WEST SR. ([id number]) 1945 M Date Time Provider Department 04/22/22 MAE CAMPBELL [facility] During your visit today, we recorded the following information about you: Ivett Scherer RN 04/22/2022 5:13 PM Signed This patient called the wound center to report new onset leg pain on the same leg that his wound is on. This RN returned the patient's call and left a message on his voice mail box. Will await returning call. Ivett Scherer RN Allergies As of Date: 04/22/2022 Noted Allergy Reaction CORTISONE 05/09/2009 14 - Other: See Comments Comments: [place] real hot, as if someone threw boiling water on him ZESTRIL (LISINOPRIL) 01/29/2009 5 - Intolerance Comments: ARF, hypokalemia Date Reviewed: 04/21/2022 Reviewed by: Radha Cohn MD - Fully Assessed Reason for Visit: Patient Update [1234] Prescriptions as of 04/22/2022 - sulfamethoxazole-trimethoprim (BACTRIM DS,SEPTRA DS) 800-160 mg per tablet Take by mouth twice daily. - cephALEXin (KEFLEX) 500 mg capsule Take 500 mg by mouth every 6 hours. - empagliflozin (JARDIANCE) 10 mg tablet Take 1 tablet by mouth daily with breakfast. - meclizine (ANTIVERT) 25 mg tab Take 1 tablet by mouth three times daily as needed. - flash glucose sensor (FREESTYLE DAIJA 14 DAY SENSOR) kit 1 Each every 2 weeks. Diagnoses: ICD10: E11.22, N18.32, Z79.4; E11.42, Z79.4. Sig: Check glucose 4 or more times per day. Patient on multiple insulin doses. - Insulin [place], Disposable, (1ST TIER UNIFINE PENTIPS) 31 gauge x 3/16 Use as directed 4 times a day. Dx: E11.65 - cyclobenzaprine (FLEXERIL) 10 mg tablet Take 1 tablet by mouth twice daily as needed for muscle spasm. - insulin glargine (LANTUS SOLOSTAR U-100 INSULIN) 100 unit/mL (3 mL) Inject subcutaneously 25 units daily in the AM - insulin lispro (HUMALOG KWIKPEN INSULIN) 100 unit/mL Inject subcutaneously TID meals per SS up to 15 units daily - NIFEdipine ER (PROCARDIA XL) 90 mg 24 hr tablet Take 1 tablet by mouth once daily. - losartan (COZAAR) 50 mg tablet Take 1 tablet by mouth once daily. - pravastatin (PRAVACHOL) 80 mg tablet Take 1 tablet by mouth once daily. For cholesterol. - furosemide (LASIX) 40 mg tablet Take 1 tablet by mouth once daily. - gabapentin (NEURONTIN) 300 mg capsule Take 1 capsule by mouth three times daily for 180 days. - gabapentin (NEURONTIN) 300 mg capsule Take 1 capsule by mouth three times daily for 10 days. - promethazine (PHENERGAN) 25 mg tablet Take 1 tablet by mouth every 6 hours as needed. - mupirocin (BACTROBAN) 2 % ointment Apply 1 application to affected area three times daily. - latanoprost (XALATAN) 0.005 % ophthalmic solution INSTILL 1 DROP IN BOTH EYES DAILY AT BEDTIME - Lancets lancets Test blood sugar(s) 3 times daily. Dx: Type 2 DM - Uncontrolled E11.65 Insulin: Yes - blood sugar diagnostic (BLOOD GLUCOSE TEST) test strip Test blood sugar(s) 3 times daily. Dx: Type 2 DM - Uncontrolled E11.65 Insulin: Yes - dorzolamide-timolol (COSOPT) 22.3-6.8 mg/mL ophthalmic solution Use 1 Drop in both eyes twice daily. Use at 8 AM and 4 PM - flash glucose scanning reader (SpreadShout DAIJA 14 DAY READER) Diagnoses: ICD10: E11.22, N18.32, Z79.4; E11.42, Z79.4. Sig: Check glucose 4 or more times per day. Patient on multiple insulin doses. - cholecalciferol (VITAMIN D) 1,000 unit tab tablet Take 1 tablet by mouth once daily. - cyanocobalamin (VITAMIN B-12) 1,000 mcg tab Take 1 tablet by mouth once daily. - aspirin(ECOTRIN LOW STRENGTH 81 MG TAB) Take by mouth. Problem List As Of Date 04/22/2022 Noted Resolved Asthma [J45.909] 07/07/2015 Anemia in stage 3 chronic kidney disease ([facility]) * Essential hypertension [I10] Hyperlipidemia [E78.5] Polyneuropathy in diabetes (HCC) [E11.42] 07/27/2005 DIABETES MELLITUS TYPE II UNCONTR UNCOMPL [IMO0*07/27/2005 08/09/2008 Erectile dysfunction associated with type 2 diaz*07/09/2008 Overweight [E66.3] 07/09/2008 Other specified gastritis without mention of he*09/18/2008 07/07/2015 BPH w/o urinary obs/LUTS [N40.0] 09/18/2008 09/08/2011 Background diabetic retinopathy(362.01) ([facility]) [*09/18/2008 06/30/2015 Acute pain of right shoulder [M25.511] 09/25/2008 BPH with obstruction/lower urinary tract sympto*02/12/2009 Dermatophytosis of nail [B35.1] 04/22/2009 03/09/2011 Ulcer of other part of foot [L97.509] 06/30/2009 03/09/2011 DM neuro manif type II, uncontrolled [E11.49] 07/23/2009 03/09/2011 CKD (chronic kidney disease) stage 3, GFR 30-59*05/26/2017 10/04/2019 Tubular adenoma of colon [D12.6] 08/10/2016 Type 2 DM with CKD stage 3 and hypertension (HC*04/18/2017 09/17/2020 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 [facility] 04-19-2022 [facility] Office Visit (PLWDMR ) ESVIN WEST SR. ([id number]) 1945 M Date Time Provider Department 04/19/22 4:00 PM [facility] During your visit today, we recorded the following information about you: Temperature Pulse Blood pressure 97.3 degrees 55/minute 153/77 Ivett Scherer RN 04/19/2022 4:35 PM Signed Nursing Documentation Pertinent Medical History: long hx of callous, CKD, HTN, DM Wound Etiology according to patient: Callous fell off - wound beneath Patient arrived via: ambulatory with Home Care Company/Nursing Facility: none Consent captured for debridement per Sulma until September 2022 Consent captured for debridement per Mae Ca until September 2022 Anticoagulant Therapy: ASA 81 ACTIVE CARE PER PROVIDER: Mae Campbell DPM WOUND ASSESSMENT: Refer to Provider's [...] with: 2 Conform Other: Single layer of Tubi-it audit manager size D. WOUND # 2 - LOCATION: Right Second Toe - Formed from burst blister DEBRIDEMENT: SubQ Post debridement measurements if applicable: L: 1.0 cm x W: 0.8 cm x D: 0.1 cm Cleansed with: Betadine Applied to krystyna-wound skin: Betadine Applied to wound bed: Silver Alginate Covered and secured with: 2 Conform Other: Single layer of Tubi-it audit manager size D. COMPRESSION: Single layer Tubi-it audit manager size D SPECIAL NEEDS: Coordination of care - [facility] for wound supplies Emotional support N/A OR set-up N/A Dermatology Sales Representative N/A Incontinence needs N/A DISCHARGED in stable condition to: Ambulatory Global surgical period dates if applicable: N/A PLAN/ORDERS: Return to the wound center to see Dr. Jordan/Dr. Campbell in 1 week - sooner if a problem. Continue aggressive nutritional support for optimal wound healing. PRISM: Visit your access clerk every 10-12 weeks for callous control. EDUCATION: The patient/family was instructed how to cleanse the wound(s). Visual demonstration on how to apply the dressing with teach back method. Signs AND symptoms of infection were reviewed: Increased redness, swelling, pain, green/yellow drainage, fever and/or chills would all need to be evaluated by a Physician. Patient received typed home-going wound care instructions and has expressed intent to comply. OTHER EDUCATION: Educated about tubi-it audit manager and changes to wound care. Education performed [...] there exposed/involved tendon or bone? No 4. H (more content not included)... Normal [facility] No Panel Informationon 04-10 Prostate Specific Antigen Screen 1.57 ng/mL 0.00-4.00 [facility] Work Phone: Comment on above: This test was perfor med using the TPSA assay method for the[employer] chemistry system. Values obtained with differentassay methods cannot be used interchangably.When changing PSA assays in the course of monitoring apatient, additional sequential testing should be carriedout to confirm baseline values. 25(OH)D3 [facility] 25-hydroxyvitamin D3 [Mass/Vol] 34.8 ng/mL Normal 31.0-80.0 [facility] Comment on above: Order Comment: Speci men Type: BLOOD SPECIMENOrdering Facility: [facility] Address: [address] [place] [address] Result Comment: Clas sification of 25 OH Vitamin D status: Deficiency/Insufficiency: < or = 30 ng/ml. Sufficiency/Optimal Levels: 31-80 ng/mL Toxicity: > 100 ng/mL. Test performed by chemiluminescent immunoassay. Performed By: #### 1 989-3 ####[facility] LAB[facility]IA [id number] [address] [place] CBC W Auto Differential pane l (Bld)on 04-09-2022 Basophils (Bld) [#/Vol] 10*3/uL Normal <0.11 [facility] Comment on above: Order Comment: Speci men Type: BLOOD SPECIMENOrdering Facility: [facility] Address: [address] [place] [address] Performed By: #### 5 7021-8 ####[facility]ORATORYCLIA [id number] [address] [place] OF [facility] Basophils/100 WBC (Bld) 0.3 % Normal [facility] Comment on above: Order Comment: Speci men Type: BLOOD SPECIMENOrdering Facility: [facility] Address: [address] [place] [address] Performed By: #### 5 7021-8 ####[facility]ORATORYCLIA [id number] [address] Differential cell count method Nom (Bld) Auto Normal [facility] Comment on above: Order Comment: Speci men Type: BLOOD SPECIMENOrdering Facility: [facility] Address: [address] [place] [address] Performed By: #### 5 7021-8 ####[facility]ORATORYCLIA [id number] [address] Eosinophils (Bld) [#/Vol] 0.09 10*3/uL Normal <0.46 [facility] Comment on above: Order Comment: Speci men Type: BLOOD SPECIMENOrdering Facility: [facility] Address: [address] [place] [address] Performed By: #### 5 7021-8 ####[facility]ORATORYCLIA [id number] [address] Eosinophils/100 WBC (Bld) 1.5 % Normal [facility] Comment on above: Order Comment: Speci men Type: BLOOD SPECIMENOrdering Facility: [facility] Address: [address] [place] [address] Performed By: #### 5 7021-8 ####[facility]ORATORYCLIA [id number] [address] [place] Erythrocyte distribution width (RBC) [Ratio] 12.3 % Normal 11.5-15.0 [facility] Comment on above: Order Comment: Speci men Type: BLOOD SPECIMENOrdering Facility: [facility] Address: [address] [place] [address] Performed By: #### 5 7021-8 ####[facility]ORATORYCLIA [id number] [address] Hematocrit (Bld) [Volume fraction] 38.7 % Low 39.0-51.0 [facility] Comment on above: Order Comment: Speci men Type: BLOOD SPECIMENOrdering Facility: [facility] Address: [address] [place] [address] Performed By: #### 5 7021-8 ####[facility] LABORATORYCLIA [id number] [address] Hemoglobin (Bld) [Mass/Vol] 12.2 g/dL Low 13.0-17.0 [facility] Comment on above: Order Comment: Speci men Type: BLOOD SPECIMENOrdering Facility: [facility] Address: [address] [place] [address] Performed By: #### 5 7021-8 ####[facility]ORATORYCLIA [id number] [address] IMMATURE GRAN % 0.2 % Normal [facility] Comment on above: Order Comment: Speci men Type: BLOOD SPECIMENOrdering Facility: [facility] Address: [address] [place] [address] Performed By: #### 5 7021-8 ####[facility] LABORATORYCLIA [id number] [address] IMMATURE GRAN ABS <0.03 Normal <0.10 [facility] Comment on above: Order Comment: Speci men Type: BLOOD SPECIMENOrdering Facility: [facility] Address: [address] [place] [address] Performed By: #### 5 7021-8 ####[facility] LABORATORYCLIA [id number] [address] [place] Lymphocytes (Bld) [#/Vol] 1.47 10*3/uL Normal 1.00-4.00 [facility] Comment on above: Order Comment: Speci men Type: BLOOD SPECIMENOrdering Facility: [facility] Address: [address] [place] [address] Performed By: #### 5 7021-8 ####[facility]ORATORYCLIA [id number] [address] Lymphocytes/100 WBC (Bld) 24.7 % Normal [facility] Comment on above: Order Comment: Speci men Type: BLOOD SPECIMENOrdering Facility: [facility] Address: [address] [place] [address] Performed By: #### 5 7021-8 ####[facility] LABORATORYCLIA [id number] [address] MCH (RBC) [Entitic mass] 29.5 pg Normal 26.0-34.0 [facility] Comment on above: Order Comment: Speci men Type: BLOOD SPECIMENOrdering Facility: [facility] Address: [address] [place] [address] Performed By: #### 5 7021-8 ####[facility] LABORATORYCLIA [id number] [address] MCHC (RBC) [Mass/Vol] 31.5 g/dL Normal 30.5-36.0 [facility] Comment on above: Order Comment: Speci men Type: BLOOD SPECIMENOrdering Facility: [facility] Address: [address] [place] [address] Performed By: #### 5 7021-8 ####[facility] LABORATORYCLIA [id number] [address] MCV (RBC) [Entitic vol] 93.7 fL Normal 80.0-100.0 [facility] Comment on above: Order Comment: Speci men Type: BLOOD SPECIMENOrdering Facility: [facility] Address: [address] [place] [address] Performed By: #### 5 7021-8 ####[facility] LABORATORYCLIA [id number] [address] Monocytes (Bld) [#/Vol] 0.62 10*3/uL Normal <0.87 [facility] Comment on above: Order Comment: Speci men Type: BLOOD SPECIMENOrdering Facility: [facility] Address: [address] [place] [address] Performed By: #### 5 7021-8 ####[facility] LABORATORYCLIA [id number] [address] Monocytes/100 WBC (Bld) 10.4 % Normal [facility] Comment on above: Order Comment: Speci men Type: BLOOD SPECIMENOrdering Facility: [facility] Address: [address] [address] Performed By: #### 5 7021-8 ####[facility] LABORATORYCLIA [id number] [place] [address] [place] Neutrophils (Bld) [#/Vol] 3.74 10*3/uL Normal 1.45-7.50 [facility] Comment on above: Order Comment: Speci men Type: BLOOD SPECIMENOrdering Facility: [facility] Address: [address] [place] [address] Performed By: #### 5 7021-8 ####[facility] LABORATORYCLIA [id number] [address] [place] Neutrophils/100 WBC (Bld) 62.9 % Normal [facility] Comment on above: Order Comment: Speci men Type: BLOOD SPECIMENOrdering Facility: [facility] Address: [address] [place] [address] Performed By: #### 5 7021-8 ####[facility] LABORATORYCLIA [id number] [place] [address] [place] Nucleated RBC (Bld) [#/Vol] 10*3/uL Normal <0.01 [facility] Comment on above: Order Comment: Speci men Type: BLOOD SPECIMENOrdering Facility: [facility] Address: [address] [place] [address] Performed By: #### 5 7021-8 ####[facility] LABORATORYCLIA [id number] [address] [place] Nucleated RBC/100 WBC (Bld) [Ratio] 0.0 /100 WBC Normal [facility] Comment on above: Order Comment: Speci men Type: BLOOD SPECIMENOrdering Facility: [facility] Address: [address] [place] [address] Performed By: #### 5 7021-8 ####[facility] LABORATORYCLIA [id number] [address] [place] Platelet mean volume (Bld) [Entitic vol] 11.1 fL Normal 9.0-12.7 [facility] Comment on above: Order Comment: Speci men Type: BLOOD SPECIMENOrdering Facility: [facility] Address: [facility] [place] [address] Performed By: #### 5 7021-8 ####[facility] LABORATORYCLIA [id number] [address] [place] Platelets (Bld) [#/Vol] 305 10*3/uL Normal 150-400 [facility] Comment on above: Order Comment: Speci men Type: BLOOD SPECIMENOrdering Facility: [facility] Address: [address] [place], [place] [address] [address] Performed By: #### 5 7021-8 ####[facility] LABORATORYCLIA [id number] [place] [address] [facility] [place] RBC (Bld) [#/Vol] 4.13 10*6/uL Low 4.20-6.00 [facility] Comment on above: Order Comment: Speci men Type: BLOOD SPECIMENOrdering Facility: [facility] Address: [address] [place], [place] [address] [address] Performed By: #### 5 7021-8 ####[facility] LABORATORYCLIA [id number] [address] [place] WBC (Bld) [#/Vol] 5.95 10*3/uL Normal 3.70-11.00 [facility] Comment on above: Order Comment: Speci men Type: BLOOD SPECIMENOrdering Facility: [facility] Address: [address] [place], [place] [address] [address] Performed By: #### 5 7021-8 ####[facility] LABORATORYCLIA [id number] [address] [place] [facility]OV[facility] 04-09-2022 [facility] Office Visit (PLWDMR ) ESVIN WEST SR. ([id number]) 1945 M Date Time Provider Department 04/09/22 9:00 AM [facility] During your visit today, we recorded the following information about you: Temperature Pulse Respiration Blood pressure 97.7 degrees 75/minute 20/minute 136/72 Catalina Schmid RN 04/09/2022 9:32 AM Signed Nursing Documentation Pertinent Medical History: long hx of callous, CKD, HTN, DM Wound Etiology according to patient: Jcak fell off - wound beneath Patient arrived [...] Supplies Emotional support N/A OR set-up N/A Dermatology Sales Representative N/A Incontinence needs N/A DISCHARGED in stable condition to: home with - ambulatory Global surgical period dates if applicable: N/A PLAN/ORDERS: Return to the wound center to see Dr. Julian ELIAS in 2 weeks - sooner if a problem PVR'S/Venous incompetency/pre-albumin/x-ra y if wound is older than 30 days Continue aggressive nutritional support for optimal wound healing [facility]: - Catalina will order supplies, please call in 24 hours if you've not heard from [facility] Visit your access clerk every 10-12 weeks for callous control EDUCATION: The patient/family was instructed how to cleanse the wound(s). Visual demonstration on how to apply the dressing with teach back method. Signs AND symptoms of infection were reviewed: Increased redness, [...] Use of medication to help control edema. - UNIVERSAL PROTOCOL / SAFETY CHECKLIST Procedure to be Performed: serial sharp debridement of the Right Great Toe Sign In: 0835 A Moment of CARE was completed. Personnel directly involved with the procedure wore the appropriate PPE (Personal Protective Equipment). Patient/Surrogate Stated/Verified: PATIENT VERIFIED(optional for EMERGENT procedures): Patient name, Date of , Relevant allergies, and The intended procedure Time Out Communication: 0850 Intended patient and procedure match the source documents. Consent documented and matches the intended procedure. No relevant labs, photos, and/or imaging studies were applicable for review. Sign Out: 0935 SIGN OUT (optional for EMERGENT procedures): No specimen collected. - Current HBOT Status: Active or Complete - [...] or been offered vascular intervention/evaluation? No 8. [place] (more content not included)... Normal [facility] PTH-Intact SerPl-ncon 10- Parathyrin.intact [Mass/Vol] 70 pg/mL High 15-65 [facility] Comment on above: Order Comment: Speci men Type: BLOOD SPECIMENOrdering Facility: [facility] Address: [address] [place], [place] [address] Performed By: #### 2 731-8 ####[facility] LAB[facility]IA [id number] [facility] ER [id number] [place] Prot/Creat Uron 04-09-2022 Protein/Creatinin e (U) [Mass ratio] 0.17 mg/mg High <0.15 [facility] Comment on above: Order Comment: Speci men Type: URINE SPECIMENOrdering Facility: [facility] Address: [address] [place], [place] [address] Result Comment: Adul t Proteinuria Categories: <0.15 mg/mg is considered normal to mildly increased 0.15 - 0.50 mg/mg is considered moderately increased >0.50 mg/mg is considered severely increased KDIGO. (2013). KDIGO 2012 Clinical Practice Guideline for the Evaluation and Management of Chronic Kidney Disease. Official Journal of the International Society of Nephrology, 3(1), 1-150. Performed By: #### 2 890-2 ####[facility] LABCLIA [id number] [address] [place] Protein/Creatinine (U) [Mass ratio]on 04-09-2022 Creatinine (U) [Mass/Vol] 124.1 mg/dL Normal 20.0-300.0 [facility] Comment on above: Order Comment: Speci men Type: URINE SPECIMENOrdering Facility: [facility] Address: [address] [place] [address] Performed By: #### 2 890-2 ####[facility] [id number] [address] [place] Protein (U) [Mass/Vol] 21 mg/dL High 0-20 [facility] Comment on above: Order Comment: Speci men Type: URINE SPECIMENOrdering Facility: [facility] Address: [address] [place], [place] [id number] Performed By: #### 2 890-2 ####[facility] LAB[facility]IA [id number] [address] [place] Renal function 2000 panelon 04-09-2022 Albumin [Mass/Vol] 4.1 g/dL Normal 3.9-4.9 [facility] Comment on above: Order Comment: Speci men Type: BLOOD SPECIMENOrdering Facility: [facility] Address: [address] [place], [place] [id number] Performed By: #### 2 4362-6 ####[facility]ATORYCLIA [id number] [address] [place] Anion gap [Moles/Vol] 7 mmol/L Low - [facility] Comment on above: Order Comment: Speci men Type: BLOOD SPECIMENOrdering Facility: [facility] Address: [address] [place], [place] [id number] Performed By: #### 2 4362-6 ####[facility]ORATORYCLIA [id number] [place] [address] [place] Calcium [Mass/Vol] 8.9 mg/dL Normal 8.5-10.2 [facility] Comment on above: Order Comment: Speci men Type: BLOOD SPECIMENOrdering Facility: [facility] Address: [address] [place] [address] Performed By: #### 2 4362-6 ####[facility]ORATORYCLIA [id number] [place] [address] [place] Chloride [Moles/Vol] 104 mmol/L Normal 97-105 [facility] Comment on above: Order Comment: Speci men Type: BLOOD SPECIMENOrdering Facility: [facility] Address: [address] [place] [address] Performed By: #### 2 4362-6 ####[facility]ORATORYCLIA [id number] [place] [address] [place] CO2 [Moles/Vol] 26 mmol/L Normal 22-30 [facility] Comment on above: Order Comment: Speci men Type: BLOOD SPECIMENOrdering Facility: [facility] Address: [address] [place] [address] Performed By: #### 2 4362-6 ####[facility]ORATORYCLIA [id number] [place] [address] [place] Creatinine [Mass/Vol] 2.25 mg/dL High 0.73-1.22 [facility] Comment on above: Order Comment: Speci men Type: BLOOD SPECIMENOrdering Facility: [facility] Address: [address] [place] [address] Performed By: #### 2 4362-6 ####[facility]ORATORYCLIA [id number] [place] [address] [place] ESTIMATED GLOMERULAR FILTRATION RATE 30 mL/min/1.73m??? Low >=60 [facility] Comment on above: Order Comment: Speci men Type: BLOOD SPECIMENOrdering Facility: [facility] Address: [address] [place] [address] Result Comment: Annie mated Glomerular Filtration Rate (eGFR) is calculated using the 2020 CKD-EPI creatinine equation. This equation utilizes serum creatinine, sex, and age as parameters. The creatinine assay has traceable calibration to isotope dilution-mass spectrometry. Refer to KDIGO guidelines for clinical interpretation. In patients with unstable renal function, e.g. those with acute kidney injury, the eGFR may not accurately reflect actual GFR. Performed By: #### 2 4362-6 ####[facility] LABORATORYCLIA [id number] [place] [address] [place] Glucose [Mass/Vol] 116 mg/dL High 74-99 [facility] Comment on above: Order Comment: Shiva rivera Type: BLOOD SPECIMENOrdering Facility: [facility] Address: [address] [place] [address] Result Comment: The [place] Diabetes Association (ADA) provides guidance for cutoff values for fasting glucose and random glucose. The ADA defines fasting as no caloric intake for at least 8 hours. Fasting plasma glucose results between 100 to 125 mg/dL indicate increased risk for diabetes (prediabetes). Fasting plasma glucose results greater than or equal to 126 mg/dL meet the criteria for diagnosis of diabetes. In the absence of unequivocal hyperglycemia, results should be confirmed by repeat testing. In a patient with classic symptoms of hyperglycemia or hyperglycemic crisis, random plasma glucose results greater than or equal to 200 mg/dL meet the criteria for diagnosis of diabetes. Reference: Standards of Medical Care in Diabetes 2016, [place] [employer]. Diabetes Care. 2016.39(Suppl 1). Performed By: #### 2 4362-6 ####[facility] LABORATORYCLIA [id number] [place] [address] [place] Phosphate [Mass/Vol] 3.6 mg/dL Normal 2.7-4.8 [facility] Comment on above: Order Comment: Shiva rivera Type: BLOOD SPECIMENOrdering Facility: [facility] Address: [address] [place] [address] Performed By: #### 2 4362-6 ####[facility] LABORATORYCLIA [id number] [place] [address] [place] Potassium [Moles/Vol] 5.3 mmol/L High 3.7-5.1 [facility] Comment on above: Order Comment: Speci men Type: BLOOD SPECIMENOrdering Facility: [facility] Address: [address] [place] [address] Performed By: #### 2 4362-6 ####[facility]ORATORYCLIA [id number] [address] Sodium [Moles/Vol] 137 mmol/L Normal 136-144 [facility] Comment on above: Order Comment: Speci men Type: BLOOD SPECIMENOrdering Facility: [facility] Address: [address] [place] [address] Performed By: #### 2 4362-6 ####[facility] LABORATORYCLIA [id number] [address] [place] Urea nitrogen [Mass/Vol] 31 mg/dL High 9-24 [facility] Comment on above: Order Comment: Speci men Type: BLOOD SPECIMENOrdering Facility: [facility] Address: [address] [place] [address] Performed By: #### 2 4362-6 ####[facility] LABORATORYCLIA [id number] [address] OF [facility] HEMOGLOBIN A1C (POC)on 01-01 HbA1c (Bld) [Mass fraction] 5.7 % 4.2 - 5.6 % [facility] ANES POSTPROC EVALon 022 ANES POSTPROC EVAL HNO ID: [id number] Author: Benson Downs MD Service: Anesthesiology Author Type: Anesthesiologist Type: Anesthesia Postprocedure Evaluation Filed: 11/04/2021 10:18 AM Note Text: POST ANESTHESIA EVALUATION NOTE : 1945 Procedure Summary Date: 11/04/21 Room / Location: [facility] Endoscopy Anesthesia Start: 721 Anesthesia Stop: 755 Procedure: COLONOSCOPY SCREENING Diagnosis: Personal history of colonic polyps (High risk colon cancer surveillance: Personal history of colonic polyps) Scheduled Providers: Ronal Xiong MD; SIDNEY Luu; Benson Downs MD Responsible Provider: Benson Downs MD Anesthesia Type: MAC ASA Status: 3 Anesthesia Type: MAC Last Vitals Vitals Value Taken Time BP 111/56 11/04/21 0839 Temp 36.2 ?C (97.2 ?F) 11/04/21 0758 Pulse 53 11/04/21 0839 Resp 16 11/04/21 0839 SpO2 100 % 11/04/21 0839 Vitals shown include unvalidated device data. Post Anesthesia Patient Status Patient Evaluation: PACU. PACU/ICU Patient Condition: stable. Anticipated Disposition: phase 2 then home. Neurological Status: aware and responsive. Pulmonary Status: breathing comfortably on room air Airway Control: returned to baseline unsupported. Cardiovascular Status: stable. Pain Management: clinically adequate - multimodal analgesia pain management approach Postoperative Hydration: acceptable. Intraoperative Events: no significant anesthesia events Post Operative Nausea/Vomiting Status: no significant post operative nausea or vomiting Anesthetic Observations: Recommendation: continue current plan of care. Anesthesia Observations No Documentation SIGNATURE: Benson Downs MD PATIENT NAME: Esvin West Sr. DATE: November 04, 2021 TIME: 10:18 AM CSN: [id number] Normal [facility] ANES PRE-OPon 11-04-2021 ANES PRE-OP HNO ID: [id number] Author: Benson Downs MD Service: Anesthesiology Author Type: Anesthesiologist Type: Anesthesia Preprocedure Evaluation Filed: 11/04/2021 7:11 AM Note Text: ANESTHESIOLOGY DAY OF SURGERY NOTE : 1945 Procedure Information Date/Time: 11/04/21729 Scheduled providers: Ronal Xiong MD; SIDNEY Luu; Benson Downs MD Procedure: COLONOSCOPY SCREENING Location: [facility] Endoscopy Estimated body mass index is 28.29 kg/m? as calculated from the following: Height as of 10/14/21: 179.1 cm (5' 10.5). Weight as of 10/14/21: 90.7 kg (200 lb). 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 Tracheostomy tube not present Mallampati: II. TM distance: >3 FB. Neck ROM: full ROM without neurological symptoms. Mouth opening: adequate. Short neck: no. Thick neck: no DENTAL Dental findings: teeth intact and missing tooth/teeth. Additional exam findings: yes. CARDIOVASCULAR Rhythm: regular PULMONARY Breath sounds clear to auscultation. II - ANESTHESIA PLAN ASA Score: 3 Anesthetic Plan: MAC The patient is not a current smoker. Monitoring plan: standard ASA. Postoperative analgesic plan: multimodal analgesia. Patient / Surrogate agrees to blood products: blood products not planned DNR status not reviewed with patient and/or family prior to surgery. Significant changes in the patient condition since the History and Physical, not otherwise documented in primary service progress note: no. Potential Anesthesia issues that may suggest increased risk of complications or contraindication to planned procedure: none. Vitals Value Taken Time BP 136/65 11/04/21651 Pulse 74 11/04/21651 Resp 16 11/04/21651 Temp 36.5 ?C (97.7 ?F) 11/04/21651 SpO2 100 % 11/04/21651 Outpatient Medications as of 11/04/2021 Medication Sig - NIFEdipine ER (PROCARDIA XL) 90 mg 24 hr tablet Take 1 tablet by mouth once daily. - insulin lispro (HUMALOG KWIKPEN INSULIN) 100 unit/mL Inject 4 units breakfast, 6 units lunch, 6 units dinner. Take 1/2 the dose if the sugar is less then 120 - losartan (COZAAR) 50 mg tablet Take 1 tablet by mouth once daily. - pravastatin (PRAVACHOL) 80 mg tablet Take 1 tablet by mouth once daily. For cholesterol. - furosemide (LASIX) 40 mg tablet Take 1 tablet by mouth once daily. - insulin glargine (LANTUS SOLOSTAR U-100 INSULIN) 100 unit/mL (3 mL) Inject subcutaneously 25 units daily in the evening. - gabapentin (NEURONTIN) 300 mg capsule Take 1 capsule by mouth three times daily for 180 days. - empagliflozin (JARDIANCE) 10 mg tablet Take 1 tablet by mouth daily with breakfast. - latanoprost (XALATAN) 0.005 % ophthalmic solution INSTILL 1 DROP IN BOTH EYES DAILY AT BEDTIME - dorzolamide-timolol (COSOPT) 22.3-6.8 mg/mL ophthalmic solution Use 1 Drop in both eyes twice daily. Use at 8 AM and 4 PM - cholecalciferol (VITAMIN D) 1,000 unit tab tablet Take 1 tablet by mouth once daily. - cyanocobalamin (VITAMIN B-12) 1,000 mcg tab Take 1 tablet by mouth once daily. - NIFEdipine ER (PROCARDIA XL) 90 mg 24 hr tablet Take 1 tablet by mouth once daily. - meclizine (ANTIVERT) 25 mg tab Take 1 tablet by mouth three times daily as needed. - gabapentin (NEURONTIN) 300 mg capsule Take 1 capsule by mouth three times daily for 10 days. - promethazine (PHENERGAN) 25 mg tablet Take 1 tablet by mouth every 6 hours as needed. - mupirocin (BACTROBAN) 2 % ointment Apply 1 application to affected area three times daily. - Lancets lancets Test blood sugar(s) 3 times daily. Dx: Type 2 DM - Uncontrolled E11.65 Insulin: Yes - blood sugar diagnostic (BLOOD GLUCOSE TEST) test strip Test blood sugar(s) 3 times daily. Dx: Type 2 DM - Uncontrolled E11.65 Insulin: Yes - Insulin [place], Disposable, (1ST TIER UNIFINE PENTIPS) 31 gauge x 3/16 Use as directed 4 times a day. Dx: E11.65 - flash glucose sensor (FREESTYLE DAIJA 14 DAY SENSOR) kit 1 Each every 2 weeks. Diagnoses: ICD10: E11.22, N18.32, Z79.4; E11.42, Z79.4. Sig: Check glucose 4 or more times per day. Patient on multiple insulin doses. - flash glucose scanning reader (FREESTYLE DAIJA 14 DAY READER) Diagnoses: ICD10: E11.22, N18.32, Z79.4; E11.42, Z79.4. Sig: Check glucose 4 or more times per day. Patient on multiple insulin doses. - aspirin(ECOTRIN LOW STRENGTH 81 MG TAB) Take (more content not included)... Normal [facility] GLUCOSE, BLOOD (POC)on 11-04 Glucose [Mass/Vol] 147 mg/dL Abnormal 74 - 99 mg/dL [facility] Glucose [Mass/Vol] 141 mg/dL Abnormal 74 - 99 mg/dL [facility] HISTORY PHYSICALon HISTORY PHYSICAL HNO ID: [id number] Author: Ronal Xiong MD Service: General Surgery Author Type: Physician Type: HANDP Filed: 11/04/2021 7:09 AM Note Text: CC: Patient presents with: ED Follow-up: [facility] - dehydration , increased heart rate , vertigo ? ? ? HPI Esvin West Sr. is a 76 year old male who presents today for above. follow-up. Facility: [facility] Date of visit: 09/17/21 Reason for visit: palpitations, heart racing Hospital course: EKG, labs including troponin normal except potassium was elevated. Treated with IV fluids, symptoms resolved Current symptoms: patient states heart started racing when he became extremely dizzy. Vertigo described as room spinning, better when he laid down with eyes closed. Triggered by position changes, for example one episode started while he was tearing down wall paper. He has a history of vertigo, imaging including MRI and carotid ultrasound were normal. He was also referred previously to ENT for tinnitus and vertigo. He takes Antivert as needed which helps a little. No new or worsening vertigo symptoms. No further episodes of palpitations, tachycardia, vertigo or nausea since then. ? ? ? REVIEW OF SYSTEMS See HPI ? ? PAST MEDICAL HISTORY PAST MEDICAL HISTORY Diagnosis Date - Anemia in stage 3 chronic kidney disease (HCC) ? - Background diabetic retinopathy(362.01) 09/18/2008 ? Rigth eye. - Cataract of left eye ? - Chronic kidney disease, unspecified ? - CKD (chronic kidney disease) stage 3, GFR 30-59 ml/min ([facility]) 05/26/2017 - Coloboma of iris ? ? OD - Depressive disorder, not elsewhere classified ? - Erectile dysfunction associated with type 2 diabetes mellitus (HCC) 07/09/2008 - Esophageal reflux ? - Essential hypertension, benign ? - Hyperplasia of prostate ? - Macular edema ? ? dme od - Other and unspecified hyperlipidemia ? - Other specified anemias ? - Other specified gastritis without mention of hemorrhage 09/18/2008 - Personal history of colonic polyps 08/04/2016 - Primary open angle glaucoma ? ? OU - Proliferative diabetic retinopathy(362.02) ? - Pseudophakia of right eye ? - Shoulder pain 09/25/2008 ? Right. - Tubular adenoma of colon 08/10/2016 - Type II or unspecified type diabetes mellitus with ophthalmic manifestations, uncontrolled(250.52) 09/18/2008 ? iddm - Unspecified asthma(493.90) ? - Vitreous hemorrhage of left eye (HCC) ? ? PAST SURGICAL HISTORY PAST SURGICAL HISTORY Procedure Laterality Date - AVASTIN (BEVACIZUMAB) 1.25MG INTRAVITREAL INJECTION OD (RIGHT EYE) Right 04/19/2018 ? LAST - COLONOSCOPY FLX DX W/COLLJ SPEC WHEN PFRMD ? 05/27/2003 ? Colonoscopy - COLONOSCOPY GEN ANES ? 08/04/2016 - COLONOSCOPY W/BIOPSY SINGLE/MULTIPLE ? 07/25/2013 ? Repeat due 2017 - COLSC FLX W/RMVL OF TUMOR POLYP LESION SNARE TQ ? 08/04/2016 ? Repeat 07/2019 - ESOPHAGOGASTRODUODENOSCOPY TRANSORAL DIAGNOSTIC ? 05/27/2003 ? EGD - EYE SURGERY HX Right 05/02/2018 ? Pars plana vitrectomy, membrane peel, endolaser, and air fluid exchange right eye. - LAPAROSCOPY SURG CHOLECYSTECTOMY ? 03/2003 ? Cholecystectomy, lap - OPEN REPAIR OF ROTATOR CUFF ACUTE ? 04/24/2009 ? Rotator cuff repair, Right - PANRETINAL PHOTOCOAGULATION (PRP) OD (RIGHT EYE) Right 08/29/2014 ? LAST ; PRP (Panretinal Photocoagulation) OD - PANRETINAL PHOTOCOAGULATION (PRP) OS (LEFT EYE) Left 07/12/2013 ? #2 ; PRP (Panretinal Photocoagulation) OS - PROSTATECTOMY SUPRAPUBIC SUBTOTAL ? 06/23/2011 ? for BPH - VITRECTOMY MECHANICAL PARS PLANA Left 11/16/2016 ? PPV/MP/EL/AFX OS - XCAPSL CTRC RMVL INSJ IO LENS PROSTH W/O ECP ? 02/07/2007 ? Cataract Removal right - XCAPSL CTRC RMVL INSJ IO LENS PROSTH W/O ECP Left 11/16/2016 ? Cataract Extraction with PC IOL OS ? ? ALLERGIES Cortisone and Zestril [Lisinopril] ? MEDICATIONS CURRENT MEDICATIONS promethazine (PHENERGAN) 25 mg [...] insulin glargine (LANTUS SOLOSTAR U-100 INSULIN) 100 uni (more content not included)... [facility] NURSING PROGon 11-04-2021 NURSING PROG HNO ID: [id number] Author: Melinda Dent RN Service: Nursing Author Type: Registered Nurse Type: Nursing Progress Note Filed: 11/04/2021 8:35 AM Note Text: Nursing Progress Note Patient Name: Esvin West Sr. Patient Location: Room/bed info not found at bedside talking with pt. VSS This note was completed by: Melinda Dent 0835 report to Anup GRIFFITH. Pt awake, alert, talking and asking questions. VSS [facility] No Panel Informationon 11-04 [facility] SURGICAL PATHOLOGYon 022 CASE REPORT [facility] Comment on above: Order Comment: Speci men Type: TISSUE SPECIMENOrdering Facility: [facility] Address: [address] [place] [address] Result Comment: [facility] Pathology Report Case: [id number] Authorizing Provider: Ronal Xiong MD Collected: 11/04/2021 07:49 AM Ordering Location: [facility] Endoscopy Received: 11/04/2021 12:03 PM Pathologist: Ronal Chambers MD Specimen: DESCENDING COLON POLYP, two polyps Performed By: #### S ####[facility] LAB[facility]IA [id number] [address] FINAL DIAGNOSIS Normal [facility] Comment on above: Order Comment: Speci men Type: TISSUE SPECIMENOrdering Facility: [facility] Address: [address] [place] [address] Result Comment: Desc ending colon, polypectomy: - Fragments of tubular adenoma. Performed By: #### S ####[facility] LABCLIA [id number] [address] FINAL PERFORMING LAB Normal [facility] Comment on above: Order Comment: Speci men Type: TISSUE SPECIMENOrdering Facility: [facility] Address: [address] [place] [address] Result Comment: Diag nostic interpretation performed at [facility], [address] [place] [address] CLIA# [id number] Beverage Server: Anoop Ramsay M.D. Performed By: #### S ####[facility] LABCLIA [id number] [address] GROSS DESCRIPTION Normal [facility] Comment on above: Order Comment: Speci men Type: TISSUE SPECIMENOrdering Facility: [facility] Address: [address] [place] [address] Result Comment: A. D ESCENDING COLON POLYP. Received in formalin are two pieces of de souza, soft tissue aggregating to 0.7 x 0.4 x 0.2 cm. Totally submitted in one cassette. JTS November 04, 2021 5:11 PM Gross examination performed at [facility], [address] [place] [address] Performed By: #### S ####[facility] LABCLIA [id number] [place] [address] [id number] [address] [place] CNTHERAPYon 10-15-2021 CNTHERAPY OT/PT/Speech Visit ( LDPT) ESVIN WEST SR. ([id number]) 1945 M Date Time Provider Department 10/15/21 1:45 PM PADMINI MCLEAN LDPT Date Time Provider Department Center 10/15/2021 1:45 PM [id number], CHRISTI LDPT [facility] Reason for Visit: Physical Therapy [503] PT Discharge [752] Visit Diagnoses:Benign paroxysmal positional vertigo, unspecified laterality [H81.10] Dizziness and giddiness [R42] Allergies As of Date: 10/15/2021 Noted Allergy Reaction CORTISONE 05/09/2009 14 - Other: See Comments Comments: [place] real hot, as if someone threw boiling water on him ZESTRIL (LISINOPRIL) 01/29/2009 5 - Intolerance Comments: ARF, hypokalemia Date Reviewed: 10/14/2021 Reviewed by: Victor Manuel Krishnan DO - Fully Assessed Prescriptions as of 02/03/2022 - meclizine (ANTIVERT) 25 mg tab Take 1 tablet by mouth three times daily as needed. - flash glucose sensor (FREESTYLE DAIJA 14 DAY SENSOR) kit 1 Each every 2 weeks. Diagnoses: ICD10: E11.22, N18.32, Z79.4; E11.42, Z79.4. Sig: Check glucose 4 or more times per day. Patient on multiple insulin doses. - Insulin [place], Disposable, (1ST TIER UNIFINE PENTIPS) 31 gauge x 3/16 Use as directed 4 times a day. Dx: E11.65 - cyclobenzaprine (FLEXERIL) 10 mg tablet Take 1 tablet by mouth twice daily as needed for muscle spasm. - insulin glargine (LANTUS SOLOSTAR U-100 INSULIN) 100 unit/mL (3 mL) Inject subcutaneously 25 units daily in the AM - insulin lispro (HUMALOG KWIKPEN INSULIN) 100 unit/mL Inject subcutaneously TID meals per SS up to 15 units daily - NIFEdipine ER (PROCARDIA XL) 90 mg 24 hr tablet Take 1 tablet by mouth once daily. - losartan (COZAAR) 50 mg tablet Take 1 tablet by mouth once daily. - pravastatin (PRAVACHOL) 80 mg tablet Take 1 tablet by mouth once daily. For cholesterol. - furosemide (LASIX) 40 mg tablet Take 1 tablet by mouth once daily. - gabapentin (NEURONTIN) 300 mg capsule Take 1 capsule by mouth three times daily for 180 days. - empagliflozin (JARDIANCE) 10 mg tablet Take 1 tablet by mouth daily with breakfast. - gabapentin (NEURONTIN) 300 mg capsule Take 1 capsule by mouth three times daily for 10 days. - promethazine (PHENERGAN) 25 mg tablet Take 1 tablet by mouth every 6 hours as needed. - mupirocin (BACTROBAN) 2 % ointment Apply 1 application to affected area three times daily. - latanoprost (XALATAN) 0.005 % ophthalmic solution INSTILL 1 DROP IN BOTH EYES DAILY AT BEDTIME - Lancets lancets Test blood sugar(s) 3 times daily. Dx: Type 2 DM - Uncontrolled Insulin: Yes - blood sugar diagnostic (BLOOD GLUCOSE TEST) test strip Test blood sugar(s) 3 times daily. Dx: Type 2 DM - Uncontrolled Insulin: Yes - dorzolamide-timolol (COSOPT) 22.3-6.8 mg/mL ophthalmic solution Use 1 Drop in both eyes twice daily. Use at 8 AM and 4 PM - flash glucose scanning reader (SpreadShout DAIJA 14 DAY READER) Diagnoses: ICD10: E11.22, N18.32, Z79.4; E11.42, Z79.4. Sig: Check glucose 4 or more times per day. Patient on multiple insulin doses. - cholecalciferol (VITAMIN D) 1,000 unit tab tablet Take 1 tablet by mouth once daily. - cyanocobalamin (VITAMIN B-12) 1,000 mcg tab Take 1 tablet by mouth once daily. - aspirin(ECOTRIN LOW STRENGTH 81 MG TAB) Take one(1) tablet daily. Normal [facility] Absolute lymphocyte counton 09-17-2021 Lymphocytes Auto (Unsp spec) [#/Vol] 1.58 10*3/uL 0.83-4.51 [facility] Work Phone: Basophil percentageon 2021 Basophils/100 WBC (Bld) 0.4 % 0-1 [facility] Work Phone: Chloride [Moles/Vol] 110 mmol/L 98-107 [facility] Work Phone: Eosinophils/100 WBC (Bld) 0.7 % 0-5 [facility] Work Phone: Glucose [Mass/Vol] 161 mg/dL 74-106 [facility] Work Phone: Comment on above: Fasting Glucose resu lt greater than or equal to 126 mg/dL suggests DIABETES MELLITUS per A.D.A. criteria. Neutrophils (Bld) [#/Vol] 3.3 10*3/uL 2.0-7.7 [facility] Work Phone: Neutrophils/100 WBC (Bld) 60.5 % 47-70 [facility] Work Phone: Potassium [Moles/Vol] 5.6 mmol/L 3.5-5.1 [facility] Work Phone: Comment on above: Moderate Hemolysis, Result may be falsely increased. Sodium [Moles/Vol] 138 mmol/L 136-145 [facility] Work Phone: WBC (Bld) [#/Vol] 5.5 10*3/uL 4.4-11.[address] [facility] Work Phone: Blood erythrocytes count (nu mber/volume)on 09-17-2021 RBC (Bld) [#/Vol] 4.08 10*6/uL 4.6-6.2 [facility]: Blood hemoglobin measurement (mass/volume)on 09-17-2021 Hemoglobin (Bld) [Mass/Vol] 12.0 g/dL 13.0-16.5 [facility] Work Phone: Blood lymphocytes/100 leukoc yteson 09-17-2021 Lymphocytes/100 WBC (Bld) 28.7 % 19-41 [facility] Work Phone: Blood monocytes/100 leukocyt eson 09-17-2021 Monocytes/100 WBC (Bld) 9.5 % 0-10 [facility] Work Phone: Blood platelet mean volumeon 09-17-2021 Platelet mean volume (Bld) [Entitic vol] 10.5 fL 6.2-12.0 [facility] Work Phone: Determination of erythrocyte mean corpuscular volume (MCV)on 09-17-2021 MCV (RBC) [Entitic vol] 89.2 fL 80-94 [facility] Work Phone: Hematocrit Auto (Bld) [Volum e fraction]on 09-17-2021 Hematocrit (Bld) [Volume fraction] 36.4 % 40-54 [facility] Work Phone: Laboratory - Chemistry and C hemistry - challengeon 09-17-2021 CO2 [Moles/Vol] 25.0 mmol/L 21.0-32.0 [facility] Work Phone: Urea nitrogen/Creatini ne [Mass ratio] 18.3 mg/mg 10-20 [facility] Work Phone: Laboratory - Hematology and Cell countson 09-17-2021 Erythrocyte distribution width (RBC) [Entitic vol] 39.6 fL 35.1-43.9 [facility] Work Phone: Erythrocyte distribution width (RBC) [Ratio] 12.1 % 11.6-14.6 [facility] Work Phone: Immature granulocytes/100 WBC (Bld) 0.200 % 0.0-0.9 [facility] Work Phone: Comment on above: IG% - Immature Granu locytes (promyelocytes, myelocytes and metamyelocytes) > 1% indicates that a LEFT SHIFT is Present. MCH (RBC) [Entitic mass] 29.4 pg 27.0-32.0 [facility] Work Phone: Nucleated RBC/100 WBC (Bld) [Ratio] 0 % 0-5 [facility] Work Phone: MCHC Auto (RBC) [Mass/Vol]on 09-17-2021 MCHC (RBC) [Mass/Vol] 33.0 g/dL 32-36 [facility] Work Phone: No Panel Informationon 09-17 Estimated Creatinine Clearance Calc 35.04 ml/min [facility] Work Phone: Estimated GFR (MDRD) Amer 43 mL/min >60 [facility] Work Phone: Comment on above: GFR Calc Estimated GFR (MDRD) Non-Af Amer 35 mL/min >60 [facility] Work Phone: Comment on above: Non- GFR Calc Troponin I High Sensitivity 6 pg/mL 3.0-78.0 [facility] Work Phone: Comment on above: Please Note: New Genny t Units and Gender Specific Reference Ranges. For more information see Policy Stat Procedure [place] High Sensitivity Troponin (TNIH) and attachments. Platelets bldon 09-17-2021 Platelets (Bld) [#/Vol] 315 10*3/uL 150-450 [facility] Work Phone: Serum or plasma calcium sarath urement (mass/volume)on 09-17-2021 Calcium [Mass/Vol] 9.2 mg/dL 8.5-10.1 [facility] Work Phone: Serum or plasma creatinine m easurement (mass/volume)on 09-17-2021 Creatinine [Mass/Vol] 1.97 mg/dL 0.70-1.30 [facility] Work Phone: Comment on above: The validity of the calculated GFR & GFRAA in patients over 70 years has not been determined. Clinical correlation is essential. Serum or plasma urea nitroge n measurement (mass/volume)on 09-17-2021 Urea nitrogen [Mass/Vol] 36 mg/dL 7-18 [facility] Work Phone: Thin prep Papanicolaou smear with manual screeningon 09-17-2021 Thin prep Papanicolaou smear with manual screening 3 5-15 [facility] Work Phone: Absolute lymphocyte counton 08-07-2021 Lymphocytes Auto (Unsp spec) [#/Vol] 4.23 10*3/uL 0.83-4.51 [facility] Work Phone: Basophil percentageon 2021 Basophils/100 WBC (Bld) 0.5 % 0-1 [facility] Work Phone: Chloride [Moles/Vol] 110 mmol/L 98-107 [facility] Work Phone: Eosinophils/100 WBC (Bld) 1.4 % 0-5 [facility] Work Phone: Glucose [Mass/Vol] 122 mg/dL 74-106 [facility] Work Phone: Comment on above: Fasting Glucose resu lt from 100 to 125 mg/dL suggests IMPAIRED HOMEOSTASIS per A.D.A. criteria. Neutrophils (Bld) [#/Vol] 2.6 10*3/uL 2.0-7.7 [facility] Work Phone: Neutrophils/100 WBC (Bld) 32.8 % 47-70 [facility] Work Phone: Potassium [Moles/Vol] 3.3 mmol/L 3.5-5.1 [facility] Work Phone: Sodium [Moles/Vol] 143 mmol/L 136-145 [facility] Work Phone: WBC (Bld) [#/Vol] 7.9 10*3/uL 4.4-11.0 [facility] Work Phone: Blood erythrocytes count (nu mber/volume)on 08-07-2021 RBC (Bld) [#/Vol] 4.04 10*6/uL 4.6-6.2 [facility] Work Phone: Blood hemoglobin measurement (mass/volume)on 08-07-2021 Hemoglobin (Bld) [Mass/Vol] 12.0 g/dL 13.0-16.5 [facility] Work Phone: Blood lymphocytes/100 leukoc yteson 08-07-2021 Lymphocytes/100 WBC (Bld) 53.6 % 19-41 [facility] Work Phone: Blood monocytes/100 leukocyt eson 08-07-2021 Monocytes/100 WBC (Bld) 11.4 % 0-10 [facility] Work Phone: Blood platelet mean volumeon 08-07-2021 Platelet mean volume (Bld) [Entitic vol] 10.8 fL 6.2-12.0 [facility] Work Phone: Determination of erythrocyte mean corpuscular volume (MCV)on 08-07-2021 MCV (RBC) [Entitic vol] 93.1 fL 80-94 [facility] Work Phone: Hematocrit Auto (Bld) [Volum e fraction]on 08-07-2021 Hematocrit (Bld) [Volume fraction] 37.6 % 40-54 [facility] Work Phone: Laboratory - Chemistry and C hemistry - challengeon 08-07-2021 CO2 [Moles/Vol] 24.0 mmol/L 21.0-32.0 [facility] Work Phone: Urea nitrogen/Creatini ne [Mass ratio] 15.7 mg/mg 10-20 [facility] Work Phone: Laboratory - Hematology and Cell countson 08-07-2021 Erythrocyte distribution width (RBC) [Entitic vol] 41.6 fL 35.1-43.9 [facility] Work Phone: Erythrocyte distribution width (RBC) [Ratio] 12.2 % 11.6-14.6 [facility] Work Phone: Immature granulocytes/100 WBC (Bld) 0.300 % 0.0-0.9 [facility] Work Phone: Comment on above: IG% - Immature Granu locytes (promyelocytes, myelocytes and metamyelocytes) > 1% indicates that a LEFT SHIFT is Present. MCH (RBC) [Entitic mass] 29.7 pg 27.0-32.0 [facility] Work Phone: Nucleated RBC/100 WBC (Bld) [Ratio] 0 % 0-5 [facility] Work Phone: MCHC Auto (RBC) [Mass/Vol]on 08-07-2021 MCHC (RBC) [Mass/Vol] 31.9 g/dL 32-36 [facility] Work Phone: No Panel Informationon 08-07 Estimated Creatinine Clearance Calc 30.84 ml/min [facility] Work Phone: Estimated GFR (MDRD) Amer 38 mL/min >60 [facility] Work Phone: Comment on above: GFR Calc Estimated GFR (MDRD) Non-Af Amer 32 mL/min >60 [facility] Work Phone: Comment on above: Non- GFR Calc Troponin I High Sensitivity 11 pg/mL 3.0-78.0 [facility] Work Phone: Comment on above: Please Note: New Genny t Units and Gender Specific Reference Ranges. For more information see Policy Stat Procedure [place] High Sensitivity Troponin (TNIH) and attachments. Platelets bldon 08-07-2021 Platelets (Bld) [#/Vol] 342 10*3/uL 150-450 [facility] Work Phone: Serum or plasma calcium sarath urement (mass/volume)on 08-07-2021 Calcium [Mass/Vol] 8.7 mg/dL 8.5-10.1 [facility] Work Phone: Serum or plasma creatinine m easurement (mass/volume)on 08-07-2021 Creatinine [Mass/Vol] 2.17 mg/dL 0.70-1.30 [facility] Work Phone: Comment on above: The validity of the calculated GFR & GFRAA in patients over 70 years has not been determined. Clinical correlation is essential. Serum or plasma urea nitroge n measurement (mass/volume)on 08-07-2021 Urea nitrogen [Mass/Vol] 34 mg/dL 7-18 [facility] Work Phone: Thin prep Papanicolaou smear with manual screeningon 08-07-2021 Thin prep Papanicolaou smear with manual screening 9 5-15 [facility] Work Phone: No Panel Information [facility] Vital Signs Date Time Vital Sign Value Performing Clinician Faci lity 03-05-2025 13:32-0400 Body mass index (BMI) [Ratio] 29.52 kg/m2 Sherwin Hayes APRN.RISK AND COMPLIANCE ANALYTICS DIRECTOR Work Phone: [facility] 03-05-2025 13:32-0400 Body weight 90 kg Sherwin Hayes APRN.[facility] Work Phone: [facility] 03-05-2025 13:32-0400 Diastolic blood pressure 61 mm[Hg] Sherwin Hayes APRN.RISK AND COMPLIANCE ANALYTICS DIRECTOR Work Phone: [facility] 03-05-2025 13:32-0400 Heart rate 76 /min Sherwin Hayes APRN.RISK AND COMPLIANCE ANALYTICS DIRECTOR Work Phone: [facility] 03-05-2025 13:32-0400 Systolic blood pressure 149 mm[Hg] Sherwin Hayes APRN.RISK AND COMPLIANCE ANALYTICS DIRECTOR Work Phone: [facility] 01-07-2025 13:31-0400 Diastolic blood pressure 66 mm[Hg] Jesse Glover MD Work Phone: [facility] 01-07-2025 13:31-0400 Heart rate 80 /min Jesse Glover MD Work Phone: [facility] 01-07-2025 13:31-0400 Systolic blood pressure 137 mm[Hg] Jesse Glover MD Work Phone: [facility] 01-07-2025 13:20-0400 Body mass index (BMI) [Ratio] 29.85 kg/m2 Jesse Glover MD Work Phone: [facility] 01-07-2025 13:20-0400 Body weight 91 kg Jesse Glover MD Work Phone: [facility] 01-07-2025 13:20-0400 Respiratory rate 16 /min Jesse Glover MD Work Phone: [facility] 11-26-2024 15:38-0400 Diastolic blood pressure 70 mm[Hg] Jesse Glover MD Work Phone: [facility] 11-26-2024 15:38-0400 Heart rate 76 /min Jesse Glover MD Work Phone: [facility] 11-26-2024 15:38-0400 Systolic blood pressure 155 mm[Hg] Jesse Glover MD Work Phone: [facility] 11-26-2024 15:29-0400 Body mass index (BMI) [Ratio] 29.52 kg/m2 Jesse Glover MD Work Phone: [facility] 11-26-2024 15:29-0400 Body weight 90 kg Jesse Glover MD Work Phone: [facility] 11-26-2024 15:29-0400 Respiratory rate 20 /min Jesse Glover MD Work Phone: [facility] 11-22-2024 12:43-0400 Body mass index (BMI) [Ratio] 29.31 kg/m2 Haydee Christina APRN.CNP Work Phone: [facility] 11-22-2024 12:43-0400 Body weight 89.36 kg Haydee Christina 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 Work Phone: [facility] 11-22-2024 12:43-0400 Diastolic blood pressure 66 mm[Hg] Haydee Christina 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 Work Phone: [facility] 11-22-2024 12:43-0400 Heart rate 64 /min Haydee Christina 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 Work Phone: [facility] 11-22-2024 12:43-0400 Systolic blood pressure 142 mm[Hg] Haydee Christina 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 Work Phone: [facility] 10-31-2024 10:51-0400 Body height 174.6 cm [facility] APPLICATIONS PACKAGER.[facility] Work Phone: [facility] 10-31-2024 10:51-0400 Body mass index (BMI) [Ratio] 30.31 kg/m2 [facility] 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 Work Phone: [facility] 10-31-2024 10:51-0400 Body weight 92.4 kg [facility] APPLICATIONS PACKAGER.[facility] Work Phone: [facility] 10-31-2024 10:51-0400 Diastolic blood pressure 78 mm[Hg] [facility] APPLICATIONS PACKAGER.[facility] Work Phone: [facility] 10-31-2024 10:51-0400 Heart rate 70 /min [facility] 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 Work Phone: [facility] 10-31-2024 10:51-0400 Respiratory rate 16 /min [facility] APPLICATIONS PACKAGER.[facility] Work Phone: [facility] 10-31-2024 10:51-0400 SaO2% (BldA) [Mass fraction] 99 % [facility] 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 Work Phone: [facility] 10-31-2024 10:51-0400 Systolic blood pressure 172 mm[Hg] [facility] 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 Work Phone: [facility] 07-23-2024 12:57-0500 Body mass index (BMI) [Ratio] 28.56 kg/m2 Haydee Christina APRN.RISK AND COMPLIANCE ANALYTICS DIRECTOR Work Phone: [facility] 07-23-2024 12:57-0500 Body weight 87.09 kg Haydee Christina APRN.RISK AND COMPLIANCE ANALYTICS DIRECTOR Work Phone: [facility] 07-23-2024 12:57-0500 Diastolic blood pressure 75 mm[Hg] Haydee Christina APRN.RISK AND COMPLIANCE ANALYTICS DIRECTOR Work Phone: [facility] 07-23-2024 12:57-0500 Heart rate 69 /min Haydee Christina APRN.RISK AND COMPLIANCE ANALYTICS DIRECTOR Work Phone: [facility] 07-23-2024 12:57-0500 Systolic blood pressure 152 mm[Hg] Haydee Christina APRN.RISK AND COMPLIANCE ANALYTICS DIRECTOR Work Phone: [facility] 06-12-2024 09:41-0500 Body height 174.6 cm America Johnston APRN.RISK AND COMPLIANCE ANALYTICS DIRECTOR Work Phone: [facility] 06-12-2024 09:41-0500 Body mass index (BMI) [Ratio] 29.61 kg/m2 America Johnston APRN.RISK AND COMPLIANCE ANALYTICS DIRECTOR Work Phone: [facility] 06-12-2024 09:41-0500 Body weight 90.3 kg America Johnston APRN.RISK AND COMPLIANCE ANALYTICS DIRECTOR Work Phone: [facility] 06-12-2024 09:41-0500 Diastolic blood pressure 48 mm[Hg] America Johnston APRN.RISK AND COMPLIANCE ANALYTICS DIRECTOR Work Phone: [facility] 06-12-2024 09:41-0500 Heart rate 77 /min America Johnston APRN.RISK AND COMPLIANCE ANALYTICS DIRECTOR Work Phone: [facility] 06-12-2024 09:41-0500 SaO2% (BldA) [Mass fraction] 98 % America Johnston APRN.RISK AND COMPLIANCE ANALYTICS DIRECTOR Work Phone: [facility] 06-12-2024 09:41-0500 Systolic blood pressure 120 mm[Hg] America Johnston APRN.RISK AND COMPLIANCE ANALYTICS DIRECTOR Work Phone: [facility] 03-05-2024 10:06-0400 Body mass index (BMI) [Ratio] 27.65 kg/m2 Haydee Christina APRN.RISK AND COMPLIANCE ANALYTICS DIRECTOR Work Phone: [facility] 03-05-2024 10:06-0400 Body weight 87.4 kg Haydee Christina APRN.RISK AND COMPLIANCE ANALYTICS DIRECTOR Work Phone: [facility] 03-05-2024 10:06-0400 Diastolic blood pressure 72 mm[Hg] Haydee Christina APRN.RISK AND COMPLIANCE ANALYTICS DIRECTOR Work Phone: [facility] 03-05-2024 10:06-0400 Heart rate 71 /min Haydee Christina APRN.RISK AND COMPLIANCE ANALYTICS DIRECTOR Work Phone: [facility] 03-05-2024 10:06-0400 Systolic blood pressure 172 mm[Hg] Haydee Christina APRN.RISK AND COMPLIANCE ANALYTICS DIRECTOR Work Phone: [facility] 02-14-2024 10:10-0400 Diastolic blood pressure 74 mm[Hg] Jesse Glover MD Work Phone: [facility] 02-14-2024 10:10-0400 Heart rate 69 /min Jesse Glover MD Work Phone: [facility] 02-14-2024 10:10-0400 Systolic blood pressure 172 mm[Hg] Jesse Glover MD Work Phone: [facility] 02-14-2024 10:00-0400 Body mass index (BMI) [Ratio] 28.12 kg/m2 Jesse Glover MD Work Phone: [facility] 02-14-2024 10:00-0400 Body temperature 97.59 [degF] Jesse Glover MD Work Phone: [facility] 02-14-2024 10:00-0400 Body weight 88.9 kg Jesse Glover MD Work Phone: [facility] 02-14-2024 10:00-0400 Respiratory rate 16 /min Jesse Glover MD Work Phone: [facility] 10-11-2023 10:08-0400 Diastolic blood pressure 60 mm[Hg] America Johnston 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 Work Phone: [facility] 10-11-2023 10:08-0400 Systolic blood pressure 122 mm[Hg] America Johnston 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 Work Phone: [facility] 10-11-2023 09:47-0400 Body weight 89.81 kg America Johnston 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 Work Phone: [facility] 10-11-2023 09:47-0400 Heart rate 67 /min America Johnston 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 Work Phone: [facility] 10-11-2023 09:47-0400 Respiratory rate 14 /min America Johnston 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 Work Phone: [facility] 10-11-2023 09:47-0400 SaO2% (BldA) [Mass fraction] 98 % America Johnston APRN.RISK AND COMPLIANCE ANALYTICS DIRECTOR Work Phone: [facility] 10-10-2023 11:12-0400 Diastolic blood pressure 76 mm[Hg] Haydee Christina 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 Work Phone: [facility] 10-10-2023 11:12-0400 Systolic blood pressure 136 mm[Hg] Haydee Christina 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 Work Phone: [facility] 10-10-2023 10:33-0400 Body weight 89 kg Haydee Christina 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 Work Phone: [facility] 10-10-2023 10:33-0400 Heart rate 70 /min Haydee Christina 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 Work Phone: [facility] 10-04-2023 11:53-0400 Body height 177.8 cm Chanda Phillips 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 Work Phone: [facility] 10-04-2023 11:53-0400 Body weight 91.4 kg Chanda Kupiec 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 Work Phone: [facility] 10-04-2023 11:53-0400 Diastolic blood pressure 65 mm[Hg] Chanda Kupiec 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 Work Phone: [facility] 10-04-2023 11:53-0400 Heart rate 57 /min Chanda Kupiec 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 Work Phone: [facility] 10-04-2023 11:53-0400 SaO2% (BldA) [Mass fraction] 99 % Chanda Kupiec 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 Work Phone: [facility] 10-04-2023 11:53-0400 Systolic blood pressure 110 mm[Hg] Chanda Kupiec 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 Work Phone: [facility] 06-19-2023 08:16-0500 Body temperature 98.49 [degF] Juana Praisler-Wood 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 Work Phone: [facility] 06-19-2023 08:16-0500 Body weight 88.45 kg Juana Praisler-Wood 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 Work Phone: [facility] 06-19-2023 08:16-0500 Diastolic blood pressure 78 mm[Hg] Juana Praisler-Wood 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 Work Phone: [facility] 06-19-2023 08:16-0500 Heart rate 90 /min Juana Praisler-Wood 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 Work Phone: [facility] 06-19-2023 08:16-0500 Respiratory rate 16 /min Juana Praisler-Wood 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 Work Phone: [facility] 06-19-2023 08:16-0500 SaO2% (BldA) [Mass fraction] 98 % Juana Praisler-Wood 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 Work Phone: [facility] 06-19-2023 08:16-0500 Systolic blood pressure 128 mm[Hg] Juana Vazquez 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 Work Phone: [facility] 06-09-2023 10:17-0500 Diastolic blood pressure 62 mm[Hg] America BianchiKe 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 Work Phone: [facility] 06-09-2023 10:17-0500 Systolic blood pressure 130 mm[Hg] America Johnston 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 Work Phone: [facility] 06-09-2023 09:50-0500 Body height 177.8 cm America Johnston 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 Work Phone: [facility] 06-09-2023 09:50-0500 Body weight 90.45 kg America Johnston 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 Work Phone: [facility] 06-09-2023 09:50-0500 Heart rate 80 /min Amreica Johnston 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 Work Phone: [facility] 06-09-2023 09:50-0500 SaO2% (BldA) [Mass fraction] 97 % America Johnston 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 Work Phone: [facility] 03-31-2023 15:13-0400 Body weight 88.91 kg Haydee Christina 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 Work Phone: [facility] 03-31-2023 15:13-0400 Diastolic blood pressure 70 mm[Hg] Haydee Christina 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 Work Phone: [facility] 03-31-2023 15:13-0400 Heart rate 64 /min Haydee Christina 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 Work Phone: [facility] 03-31-2023 15:13-0400 Systolic blood pressure 143 mm[Hg] Haydee Christina 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 Work Phone: [facility] 02-09-2023 09:41-0400 Body height 177.8 cm Chanda Phillips 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 Work Phone: [facility] 02-09-2023 09:41-0400 Body weight 88.22 kg [facility] 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 Work Phone: [facility] 02-09-2023 09:41-0400 Diastolic blood pressure 73 mm[Hg] [facility] 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 Work Phone: [facility] 02-09-2023 09:41-0400 Heart rate 67 /min [facility] 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 Work Phone: [facility] 02-09-2023 09:41-0400 Respiratory rate 16 /min [facility] 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 Work Phone: [facility] 02-09-2023 09:41-0400 SaO2% (BldA) [Mass fraction] 98 % [facility] 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 Work Phone: [facility] 02-09-2023 09:41-0400 Systolic blood pressure 146 mm[Hg] [facility] 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 Work Phone: [facility] 10-27-2022 08:46-0400 Body weight 89.81 kg America Older 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 Work Phone: [facility] 10-27-2022 08:46-0400 Diastolic blood pressure 64 mm[Hg] America Older 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 Work Phone: [facility] 10-27-2022 08:46-0400 Heart rate 71 /min America Older 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 Work Phone: [facility] 10-27-2022 08:46-0400 Respiratory rate 14 /min America Older 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 Work Phone: [facility] 10-27-2022 08:46-0400 Systolic blood pressure 104 mm[Hg] America Older 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 Work Phone: [facility] 10-18-2022 10:25-0400 Body weight 89.81 kg Victor Manuel Krishnan DO Work Phone: [facility] 10-18-2022 10:25-0400 Diastolic blood pressure 71 mm[Hg] Victor Manuel Maditz DO Work Phone: [facility] 10-18-2022 10:25-0400 Heart rate 68 /min Victor Manuel Maditz DO Work Phone: [facility] 10-18-2022 10:25-0400 Respiratory rate 16 /min Victor Manuel Madtex DO Work Phone: [facility] 10-18-2022 10:25-0400 Systolic blood pressure 121 mm[Hg] Victor Manuel Maditz DO Work Phone: [facility] 05-27-2022 16:09-0500 Body temperature 97.5 [degF] [facility] Work Phone: [facility] 05-27-2022 16:09-0500 Diastolic blood pressure 71 mm[Hg] [facility] Work Phone: [facility] 05-27-2022 16:09-0500 Heart rate 61 /min [facility] Work Phone: [facility] 05-27-2022 16:09-0500 SaO2% (BldA) [Mass fraction] 99 % [facility] Work Phone: [facility] 05-27-2022 16:09-0500 Systolic blood pressure 139 mm[Hg] [facility] Work Phone: [facility] 05-13-2022 15:09-0500 Diastolic blood pressure 76 mm[Hg] [facility] Work Phone: [facility] 05-13-2022 15:09-0500 Systolic blood pressure 149 mm[Hg] [facility] Work Phone: [facility] 05-13-2022 15:08-0500 Body temperature 97.59 [degF] [facility] Work Phone: [facility] 05-13-2022 15:08-0500 Heart rate 86 /min [facility] Work Phone: [facility] 05-13-2022 15:08-0500 Respiratory rate 20 /min [facility] Work Phone: [facility] 05-13-2022 15:08-0500 SaO2% (BldA) [Mass fraction] 98 % [facility] Work Phone: [facility] 04-27-2022 09:04-0400 Body temperature 96.8 [degF] Jesse Glover MD Work Phone: [facility] 04-27-2022 09:04-0400 Body weight 91.63 kg Jesse Glover MD Work Phone: [facility] 04-27-2022 09:04-0400 Diastolic blood pressure 68 mm[Hg] Jesse Glover MD Work Phone: [facility] 04-27-2022 09:04-0400 Heart rate 60 /min Jesse Glover MD Work Phone: [facility] 04-27-2022 09:04-0400 Respiratory rate 18 /min Jesse Glover MD Work Phone: [facility] 04-27-2022 09:04-0400 Systolic blood pressure 130 mm[Hg] Jesse Glover MD Work Phone: [facility] 04-26-2022 15:15-0400 Diastolic blood pressure 67 mm[Hg] [facility] Work Phone: [facility] 04-26-2022 15:15-0400 Systolic blood pressure 124 mm[Hg] [facility] Work Phone: [facility] 04-26-2022 14:43-0400 Body temperature 97.81 [degF] [facility] Work Phone: [facility] 04-26-2022 14:43-0400 Heart rate 60 /min [facility] Work Phone: [facility] 04-26-2022 14:43-0400 Respiratory rate 20 /min [facility] Work Phone: [facility] 04-26-2022 14:43-0400 SaO2% (BldA) [Mass fraction] 98 % [facility] Work Phone: [facility] 04-19-2022 15:57-0400 Body temperature 97.3 [degF] [facility] Work Phone: [facility] 04-19-2022 15:57-0400 Diastolic blood pressure 77 mm[Hg] [facility] Work Phone: [facility] 04-19-2022 15:57-0400 Heart rate 55 /min [facility] Work Phone: [facility] 04-19-2022 15:57-0400 SaO2% (BldA) [Mass fraction] 100 % [facility] Work Phone: [facility] 04-19-2022 15:57-0400 Systolic blood pressure 153 mm[Hg] [facility] Work Phone: [facility] 04-17-2022 17:01-0400 Body height 180.34 cm [facility] Work Phone: 04-17-2022 17:01-0400 Body mass index (BMI) [Ratio] 27 kg/m2 [facility] Work Phone: 04-17-2022 17:01-0400 Body temperature 97.7 [degF] [facility] Work Phone: 04-17-2022 17:01-0400 Body weight 87.99 kg [facility] Work Phone: 04-17-2022 17:01-0400 Diastolic blood pressure 7 mm[Hg] [facility] Work Phone: 04-17-2022 17:01-0400 Heart rate 62 /min [facility] Work Phone: 04-17-2022 17:01-0400 Respiratory rate 16 /min [facility] Work Phone: 04-17-2022 17:01-0400 SaO2% (BldA) [Mass fraction] 98 % [facility] Work Phone: 04-17-2022 17:01-0400 Systolic blood pressure 155 mm[Hg] [facility] Work Phone: 04-09-2022 08:38-0400 Body temperature 97.7 [degF] [facility] Work Phone: [facility] 04-09-2022 08:38-0400 Diastolic blood pressure 72 mm[Hg] [facility] Work Phone: [facility] 04-09-2022 08:38-0400 Heart rate 75 /min [facility] Work Phone: [facility] 04-09-2022 08:38-0400 Respiratory rate 20 /min [facility] Work Phone: [facility] 04-09-2022 08:38-0400 SaO2% (BldA) [Mass fraction] 100 % [facility] Work Phone: [facility] 04-09-2022 08:38-0400 Systolic blood pressure 136 mm[Hg] [facility] Work Phone: [facility] 04-08-2022 11:00-0400 Body weight 88 kg Haydee Christina APRN.RISK AND COMPLIANCE ANALYTICS DIRECTOR Work Phone: [facility] 04-08-2022 11:00-0400 Diastolic blood pressure 69 mm[Hg] Haydee Christina APRN.RISK AND COMPLIANCE ANALYTICS DIRECTOR Work Phone: [facility] 04-08-2022 11:00-0400 Heart rate 60 /min Haydee Christina APRN.RISK AND COMPLIANCE ANALYTICS DIRECTOR Work Phone: [facility] 04-08-2022 11:00-0400 Systolic blood pressure 121 mm[Hg] Haydee Christina APRN.RISK AND COMPLIANCE ANALYTICS DIRECTOR Work Phone: [facility] 04-07-2022 13:32-0400 Body temperature 97.7 [degF] Henrry Gonzalez MD Work Phone: [facility] 04-07-2022 13:32-0400 Body weight 88.36 kg Henrry Gonzalez MD Work Phone: [facility] 04-07-2022 13:32-0400 Diastolic blood pressure 82 mm[Hg] Henrry Gonzalez MD Work Phone: [facility] 04-07-2022 13:32-0400 Heart rate 66 /min Henrry Gonzalez MD Work Phone: [facility] 04-07-2022 13:32-0400 Respiratory rate 20 /min Henrry Gonzalez MD Work Phone: [facility] 04-07-2022 13:32-0400 SaO2% (BldA) [Mass fraction] 97 % Henrry Gonzalez MD Work Phone: [facility] 04-07-2022 13:32-0400 Systolic blood pressure 128 mm[Hg] Henrry Gonzalez MD Work Phone: [facility] 01-14-2022 17:28-0400 Body temperature 97 [degF] Jesse Glover MD Work Phone: [facility] 01-14-2022 17:28-0400 Body weight 88.91 kg Jesse Glover MD Work Phone: [facility] 01-14-2022 17:28-0400 Diastolic blood pressure 68 mm[Hg] Jesse Glover MD Work Phone: [facility] 01-14-2022 17:28-0400 Heart rate 62 /min Jesse Glover MD Work Phone: [facility] 01-14-2022 17:28-0400 Respiratory rate 16 /min Jesse Glover MD Work Phone: [facility] 01-14-2022 17:28-0400 SaO2% (BldA) [Mass fraction] 98 % Jesse Glover MD Work Phone: [facility] 01-14-2022 17:28-0400 Systolic blood pressure 140 mm[Hg] Jesse Glover MD Work Phone: [facility] 01-01-2022 16:08-0400 Diastolic blood pressure 80 mm[Hg] [facility] 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 Work Phone: [facility] 01-01-2022 16:08-0400 Systolic blood pressure 140 mm[Hg] [facility] 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 Work Phone: [facility] 01-01-2022 15:35-0400 Body weight 90.72 kg [facility] 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 Work Phone: [facility] 01-01-2022 15:35-0400 Heart rate 76 /min [facility] 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 Work Phone: [facility] 01-01-2022 15:35-0400 SaO2% (BldA) [Mass fraction] 100 % [facility] 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 Work Phone: [facility] 12-23-2021 08:16-0400 Body weight 88.91 kg [place] Older 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 Work Phone: [facility] 12-23-2021 08:16-0400 Diastolic blood pressure 66 mm[Hg] [place] Older 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 Work Phone: [facility] 12-23-2021 08:16-0400 Heart rate 74 /min [place] Older 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 Work Phone: [facility] 12-23-2021 08:16-0400 Respiratory rate 12 /min [place] Older 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 Work Phone: [facility] 12-23-2021 08:16-0400 Systolic blood pressure 128 mm[Hg] [place] Older 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 Work Phone: [facility] 11-18-2021 09:47-0400 Body height 180.3 cm Damien Anderson PA-C Work Phone: [facility] 11-18-2021 09:47-0400 Body temperature 97.3 [degF] Damien Ricef PA-C Work Phone: [facility] 11-18-2021 09:47-0400 Body weight 88.91 kg Damien Marmaduke PA-C Work Phone: [facility] 11-18-2021 09:47-0400 Heart rate 68 /min Damien Moraima PA-C Work Phone: [facility] 11-18-2021 09:47-0400 SaO2% (BldA) [Mass fraction] 99 % Damien Moraima PA-C Work Phone: [facility] 11-04-2021 08:38-0400 Diastolic blood pressure 56 mm[Hg] Ronal Xiong MD Work Phone: [facility] 11-04-2021 08:38-0400 Heart rate 52 /min Ronal Xiong MD Work Phone: [facility] 11-04-2021 08:38-0400 Respiratory rate 15 /min Ronal Xiong MD Work Phone: [facility] 11-04-2021 08:38-0400 SaO2% (BldA) [Mass fraction] 100 % Ronal Xiong MD Work Phone: [facility] 11-04-2021 08:38-0400 Systolic blood pressure 111 mm[Hg] Ronal Xiong MD Work Phone: [facility] 11-04-2021 07:58-0400 Body temperature 97.2 [degF] Ronal Xiong MD Work Phone: [facility] 10-14-2021 12:36-0400 Body height 179.1 cm Victor Manuel Maditz DO Work Phone: [facility] 10-14-2021 12:36-0400 Body weight 90.72 kg Victor Manuel Maditz DO Work Phone: [facility] 10-14-2021 12:36-0400 Diastolic blood pressure 66 mm[Hg] Victor Manuel Maditz DO Work Phone: [facility] 10-14-2021 12:36-0400 Heart rate 80 /min Victor Manuel Krishnan DO Work Phone: [facility] 10-14-2021 12:36-0400 Respiratory rate 12 /min Victor Manuel Krishnan DO Work Phone: [facility] 10-14-2021 12:36-0400 Systolic blood pressure 147 mm[Hg] Victor Manuel Krishnan DO Work Phone: [facility] 10-01-2021 09:39-0400 Body mass index (BMI) [Ratio] 26.7 kg/m2 Dr. Jesse Glover Work Phone: [facility] Work Phone: 10-01-2021 09:39-0400 Body temperature 96.3 [degF] Dr. Jesse Glover Work Phone: [facility] Work Phone: 10-01-2021 09:39-0400 Respiratory rate 16 /min Dr. Jesse Glover Work Phone: [facility] Work Phone: 09-25-2021 00:45-0400 Body weight 87.[address] Jesse Glover Work Phone: [facility] Work Phone: 09-25-2021 00:45-0400 Diastolic blood pressure 77 mm[Hg] Dr. Jesse Glover Work Phone: [facility] Work Phone: 09-25-2021 00:45-0400 Heart rate 81 /min Dr. Jesse Glover Work Phone: [facility] Work Phone: 09-25-2021 00:45-0400 Systolic blood pressure 150 mm[Hg] Dr. Jesse Glover Work Phone: [facility] Work Phone: 09-22-2021 09:33-0400 Diastolic blood pressure 76 mm[Hg] [place] Older 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 Work Phone: [facility] 09-22-2021 09:33-0400 Systolic blood pressure 134 mm[Hg] [place] Older 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 Work Phone: [facility] 09-22-2021 08:07-0400 Body weight 86.18 kg [place] Older 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 Work Phone: [facility] 09-22-2021 08:07-0400 Heart rate 98 /min [place] Older 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 Work Phone: [facility] 09-22-2021 08:07-0400 Respiratory rate 14 /min [place] Older 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 Work Phone: [facility] 09-22-2021 08:07-0400 SaO2% (BldA) [Mass fraction] 97 % [place] Older 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 Work Phone: [facility] 09-17-2021 12:32-0400 Heart rate 77 /min Dr. Jesse Glover Work Phone: [facility] Work Phone: 09-17-2021 10:53-0400 Diastolic blood pressure 94 mm[Hg] Dr. Jesse Glover Work Phone: [facility] Work Phone: 09-17-2021 10:53-0400 Respiratory rate 17 /min Dr. Jesse Glover Work Phone: [facility] Work Phone: 09-17-2021 10:53-0400 SaO2% (BldA) [Mass fraction] 100 % Dr. Jesse Glover Work Phone: [facility] Work Phone: 09-17-2021 10:53-0400 Systolic blood pressure 155 mm[Hg] Dr. Jesse Glover Work Phone: [facility] Work Phone: 09-17-2021 07:38-0400 Body height 180.[address] Jesse Glover Work Phone: [facility] Work Phone: 09-17-2021 07:38-0400 Body mass index (BMI) [Ratio] 27 kg/m2 Dr. Jesse Glover Work Phone: [facility] Work Phone: 09-17-2021 07:38-0400 Body temperature 97.6 [degF] Dr. Jesse Glover Work Phone: [facility] Work Phone: 09-17-2021 07:38-0400 Body weight 87.[address] Jesse Glover Work Phone: [facility] Work Phone: 09-10-2021 09:03-0400 Body mass index (BMI) [Ratio] 26.7 kg/m2 Dr. Jesse Glover Work Phone: [facility] Work Phone: 09-10-2021 09:03-0400 Body temperature 96.7 [degF] Dr. Jesse Glover Work Phone: [facility] Work Phone: 09-10-2021 09:03-0400 Diastolic blood pressure 77 mm[Hg] Dr. Jesse Glover Work Phone: [facility] Work Phone: 09-10-2021 09:03-0400 Heart rate 81 /min Dr. Jesse Glover Work Phone: [facility] Work Phone: 09-10-2021 09:03-0400 Respiratory rate 16 /min Dr. Jesse Glover Work Phone: [facility] Work Phone: 09-10-2021 09:03-0400 Systolic blood pressure 150 mm[Hg] Dr. Jesse Glover Work Phone: [facility] Work Phone: 09-03-2021 08:06-0500 Body weight 87.[address] Jesse Glover Work Phone: [facility] Work Phone: 08-07-2021 21:49-0500 Diastolic blood pressure 68 mm[Hg] Dr. Jesse Glover Work Phone: [facility] Work Phone: 08-07-2021 21:49-0500 Heart rate 89 /min Dr. Jesse Glover Work Phone: [facility] Work Phone: 08-07-2021 21:49-0500 Respiratory rate 16 /min Dr. Jesse Glover Work Phone: [facility] Work Phone: 08-07-2021 21:49-0500 SaO2% (BldA) [Mass fraction] 97 % Dr. Jesse Glover Work Phone: [facility] Work Phone: 08-07-2021 21:49-0500 Systolic blood pressure 156 mm[Hg] Dr. Jesse Glover Work Phone: [facility] Work Phone: 08-07-2021 18:20-0500 Body mass index (BMI) [Ratio] 29.2 kg/m2 Dr. Jesse Glover Work Phone: [facility] Work Phone: 08-07-2021 18:20-0500 Body temperature 97.8 [degF] Dr. Jesse Glover Work Phone: [facility] Work Phone: 08-07-2021 18:20-0500 Body weight 92.[address] Jesse Glover Work Phone: [facility] Work Phone: Encounters Encounter Date Encounter Type Care Provider Facility Start: 05-28-2025 ambulatory Arik Gael Facility:[facility] Start: 05-27-2025 ambulatory Arik Gael Facility:[facility] Start: 04-30-2025 End: 04-30-2025 ambulatory JESSE GLOVER Facility:[facility] Start: 04-29-2025 End: 04-29-2025 ambulatory [place] Gael [place] [place]: 04-23-2025 End: 04-23-2025 ambulatory MELINDA GALDINO Facility:[facility] Start: 04-10-2025 End: 04-10-2025 ambulatory HAYDEE CHRISTINA Facility:[facility] Start: 03-26-2025 End: 03-26-2025 ambulatory MARSHA ERIC Facility:[facility] Start: 03-25-2025 End: 03-25-2025 ambulatory HAYDEE CHRISTINA Facility:[facility] Start: 03-21-2025 End: 03-21-2025 ambulatory HAYDEE CHRISTINA Facility:[facility] Start: 03-06-2025 End: 03-08-2025 Follow-up encounter Haydee Christina APRN.CNP Work Phone: [facility] Start: 03-06-2025 End: 03-07-2025 Telephone encounter Sherwin Hayes APRN.CNP Work Phone: [facility] Comment on above: Results, Lab Start: 03-05-2025 End: 03-05-2025 Patient encounter procedure Sherwin Hayes APRN.RISK AND COMPLIANCE ANALYTICS DIRECTOR Work Phone: [facility] [place] Comment on above: Edema of both lower legs (Primary Dx) Start: 03-05-2025 End: 03-05-2025 ambulatory SHERWIN HAYES Facility:[facility] Start: 03-05-2025 End: 03-05-2025 ambulatory Nurse Intm[facility] Work Phone: Nurse Phone Triage Comment on above: bilateral feet swell ing Start: 02-26-2025 End: 02-26-2025 Telephone encounter Jesse Glover MD Work Phone: [facility] [place] Comment on above: Medication Problem Start: 02-22-2025 End: 02-22-2025 Follow-up encounter Jesse Glover MD Work Phone: [facility] [place] Start: 02-22-2025 End: 02-26-2025 Telephone encounter Jesse Glover MD Work Phone: [facility] [place] Comment on above: Results Start: 02-19-2025 End: 03-08-2025 Telephone encounter Jesse Glover MD Work Phone: [facility] [place] Comment on above: Orders Start: 02-19-2025 End: 02-19-2025 ambulatory Inocencio Reynolds PT [facility] Comment on above: Strain of muscle, fa scia and tendon of right hip, subsequent encounter (Primary Dx); Trochanteric bursitis of right hip; Unilateral primary osteoarthritis, right hip Start: 02-13-2025 End: 02-13-2025 Refill Jesse Glover MD Work Phone: [facility] [place] Comment on above: Refill Request Start: 2025 End: 2025 Patient encounter procedure Radha Cohn MD Work Phone: Ophthalmology Comment on above: 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, severe stage (Primary Dx); 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); Pseudophakia; 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, with long-term current use of insulin (HCC) Start: 2025 End: 2025 ambulatory RADHA COHN Facility:[facility] Start: 02-05-2025 End: 02-05-2025 ambulatory Charissa Campuzano PTA Work Phone: [facility] Comment on above: Strain of muscle, fa scia and tendon of right hip, subsequent encounter (Primary Dx); Trochanteric bursitis of right hip; Unilateral primary osteoarthritis, right hip Start: 01-21-2025 End: 01-21-2025 Patient encounter procedure Marsha Eric Work Phone: Podiatry Comment on above: Posterior tibial ten don dysfunction (Primary Dx); Callus of foot; Other diabetic neurological complication associated with type 2 diabetes mellitus (HCC) Start: 01-21-2025 End: 01-21-2025 ambulatory MARSHA ERIC Facility:[facility] Start: 01-15-2025 End: 01-15-2025 ambulatory Inocencio Reynolds PT [facility] Comment on above: Strain of muscle, fa scia and tendon of right hip, subsequent encounter (Primary Dx); Trochanteric bursitis of right hip; Unilateral primary osteoarthritis, right hip Start: 01-08-2025 End: 01-08-2025 Refill Chanda Phillips APRN.CNP Work Phone: Endocrinology Comment on above: Refill Request Start: 01-07-2025 End: 01-07-2025 Office outpatient visit 25 minutes Jesse Glover MD Work Phone: [facility] [place] Comment on above: Type 2 diabetes edson itus with stage 4 chronic kidney disease, with long-term current use of insulin (HCC) (Primary Dx); Essential hypertension; Type 2 diabetes mellitus with diabetic polyneuropathy, with long-term current use of insulin (HCC); Hyperlipidemia, unspecified hyperlipidemia type Start: 01-07-2025 End: 01-07-2025 ambulatory JESSE GLOVER Facility:[facility] Start: 01-03-2025 End: 01-03-2025 Orders Only Haydee Christina APRN.RISK AND COMPLIANCE ANALYTICS DIRECTOR Work Phone: [facility] Comment on above: Hyperkalemia; 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) Start: 01-02-2025 End: 01-02-2025 Follow-up encounter Haydee Christina APRN.RISK AND COMPLIANCE ANALYTICS DIRECTOR Work Phone: [facility] Start: 01-02-2025 End: 01-02-2025 ambulatory Inocencio Reynolds PT [facility] Comment on above: Strain of muscle, fa scia and tendon of right hip, subsequent encounter (Primary Dx); Trochanteric bursitis of right hip; Unilateral primary osteoarthritis, right hip Start: 12-31-2024 End: 12-31-2024 Telephone encounter Haydee Christina APRN.RISK AND COMPLIANCE ANALYTICS DIRECTOR Work Phone: [facility] Comment on above: Patient Update Start: 12-26-2024 End: 12-27-2024 Refill Jesse Glover MD Work Phone: [facility] [place] Comment on above: Refill Request (Shor t term only) Start: 12-18-2024 End: 12-18-2024 Patient encounter procedure Marsha Testedith Work Phone: Podiatry Comment on above: Posterior tibial ten don dysfunction (Primary Dx); Callus of foot; Pes planus of both feet; Other diabetic neurological complication associated with type 2 diabetes mellitus (HCC); Onychomycosis; Pain in toe of right foot; Pain in toe of left foot; Hammer toe of left foot Start: 12-18-2024 End: 12-18-2024 ambulatory MARSHA ERIC Facility:[facility] Start: 12-06-2024 End: 02-05-2025 Orders Only Haydee Christina APRN.RISK AND COMPLIANCE ANALYTICS DIRECTOR Work Phone: [facility] Comment on above: Essential hypertensi on (Primary Dx) Essential hypertensi on Start: 12-05-2024 End: 12-05-2024 ambulatory HAYDEE CHRISTINA Facility:[facility] Start: 12-05-2024 End: 12-05-2024 Patient encounter procedure Radha Cohn MD Work Phone: Ophthalmology Comment on above: 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, severe stage (Primary Dx); 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); Pseudophakia Start: 12-05-2024 End: 12-05-2024 ambulatory JESSE GLOVER Facility:[facility] Start: 11-28-2024 End: 11-28-2024 Refill Jesse Glover MD Work Phone: [facility] [place] Comment on above: Refill Request Start: 11-27-2024 End: 11-27-2024 Follow-up encounter Haydee Christina APRN.RISK AND COMPLIANCE ANALYTICS DIRECTOR Work Phone: [facility] Start: 11-26-2024 End: 11-26-2024 Office outpatient visit 25 minutes Jesse Glover MD Work Phone: [facility] [place] Comment on above: Hyperkalemia (Primar y Dx); Other proteinuria; Essential hypertension; Type 2 diabetes mellitus with stage 4 chronic kidney disease, with long-term current use of insulin (HCC); Localized, primary osteoarthritis Start: 11-26-2024 End: 11-26-2024 ambulatory JESSE GLOVER Facility:[facility] Start: 11-26-2024 End: 11-26-2024 ambulatory HAYDEE CHRISTINA Facility:[facility] Start: 11-23-2024 End: 11-26-2024 Orders Only Haydee Christina APRN.RISK AND COMPLIANCE ANALYTICS DIRECTOR Work Phone: [facility] Comment on above: Hyperkalemia (Primar y Dx) Patient Question Start: 11-22-2024 Emergency department patient visit None Provider Facility:[facility] Start: 11-22-2024 End: 11-22-2024 Follow-up encounter Tori Damian RN Kid[facility] Start: 11-22-2024 End: 11-22-2024 Patient encounter procedure Haydee Christina APRN.RISK AND COMPLIANCE ANALYTICS DIRECTOR Work Phone: [facility] Comment on above: Type 2 DM with CKD s tage 4 and hypertension (HCC) (Primary Dx); Other proteinuria; Hyperkalemia; Anemia of renal disease; Secondary renal hyperparathyroidism (HCC); Hyperlipidemia, unspecified hyperlipidemia type Start: 11-22-2024 End: 11-22-2024 ambulatory HAYDEE CHRISTINA Facility:[facility] Start: 11-20-2024 End: 11-20-2024 Patient encounter procedure Marsha Eric Work Phone: Podiatry Comment on above: Posterior tibial ten don dysfunction (Primary Dx); Callus of foot Start: 11-20-2024 End: 11-20-2024 ambulatory MARSHA ERIC Facility:[facility] Start: 10-31-2024 End: 10-31-2024 Patient encounter procedure Chanda Phillips 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 Work Phone: Endocrinology Comment on above: Type 2 diabetes edson itus with 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, with long-term current use of insulin (HCC) (Primary Dx); Type 2 diabetes mellitus with diabetic polyneuropathy, with long-term current use of insulin (HCC); Type 2 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 disease, with long-term current use of insulin, unspecified whether stage 3a or 3b CKD (HCC); Hypoglycemia due to type 2 diabetes mellitus (HCC); Hypertension goal BP (blood pressure) < 140/90; Hyperlipidemia, unspecified hyperlipidemia type Start: 10-31-2024 End: 10-31-2024 ambulatory CHANDA PHILLIPS Facility:[facility] Start: 10-23-2024 End: 10-23-2024 ambulatory MARSHA ERIC Facility:[facility] Start: 10-23-2024 End: 10-23-2024 Patient encounter procedure Marsha Eric Work Phone: Podiatry Comment on above: Posterior tibial ten don dysfunction (Primary Dx); Pes planus of both feet; Other diabetic neurological complication associated with type 2 diabetes mellitus (HCC); Callus of foot Start: 10-15-2024 End: 10-15-2024 Refill Jesse Glover MD Work Phone: Internal Medicine [place] Comment on above: Refill Request Start: 10-03-2024 End: 10-03-2024 Follow-up encounter Marsha Eric Work Phone: Podiatry Start: 09-25-2024 End: 09-25-2024 Subsequent hospital visit by physician [facility] [place] Posadas Work Phone: Radiology Comment on above: Posterior tibial ten don dysfunction [M76.829] Start: 09-25-2024 End: 09-25-2024 ambulatory MARSHA ERIC Facility:[facility] Start: 09-25-2024 End: 09-25-2024 Patient encounter procedure Marsha Eric Work Phone: Podiatry Comment on above: Posterior tibial ten don dysfunction (Primary Dx); Pes planus of both feet; Other diabetic neurological complication associated with type 2 diabetes mellitus (HCC); Callus of foot Start: 09-20-2024 End: 09-24-2024 Orders Only Haydee Christina APRN.RISK AND COMPLIANCE ANALYTICS DIRECTOR Work Phone: Kidney Medicine Comment on above: Other proteinuria; Type 2 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 disease, with long-term current use of insulin, unspecified whether stage 3a or 3b CKD (HCC) Medication Problem Refill Request Start: 09-06-2024 End: 09-06-2024 ambulatory ADIA FINNEGAN Facility:[facility] Start: 09-06-2024 End: 09-06-2024 Patient encounter procedure Adia Finnegan MD Work Phone: Ophthalmology Comment on above: 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 associated with type 2 diabetes mellitus (HCC); Retinal edema Start: 08-27-2024 End: 08-27-2024 ambulatory MARSHA ERIC Facility:[facility] Start: 08-27-2024 End: 08-27-2024 Patient encounter procedure Marsha Hernesto Work Phone: Podiatry Comment on above: Callus of foot (Prim sheryl Dx); Pes planus of both feet; Other diabetic neurological complication associated with type 2 diabetes mellitus (HCC) Start: 08-08-2024 End: 08-08-2024 Refill Jesse Glover MD Work Phone: Family Medicine [place] Comment on above: Refill Request Start: 08-06-2024 End: 08-06-2024 Telephone encounter Haydee Christina APRN.RISK AND COMPLIANCE ANALYTICS DIRECTOR Work Phone: Kidney Medicine Comment on above: Patient Update Start: 08-03-2024 End: 08-04-2024 Refill Jsese Glover MD Work Phone: Internal Medicine [place] Comment on above: Refill Request Start: 07-23-2024 End: 07-23-2024 Telephone encounter Haydee Christina APRN.RISK AND COMPLIANCE ANALYTICS DIRECTOR Work Phone: Kidney Medicine Comment on above: Medication Problem Start: 07-23-2024 End: 07-23-2024 ambulatory HAYDEE CHRISTINA Facility:[facility] Start: 07-23-2024 End: 07-23-2024 Patient encounter procedure Haydee Christina APRN.RISK AND COMPLIANCE ANALYTICS DIRECTOR Work Phone: Kidney Medicine Comment on above: Type 2 DM with CKD s tage 4 and hypertension (HCC) (Primary Dx); Other proteinuria; Hyperkalemia; Anemia of renal disease; Secondary renal hyperparathyroidism (HCC); Hyperlipidemia, unspecified hyperlipidemia type; Type 2 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 disease, with long-term current use of insulin, unspecified whether stage 3a or 3b CKD (HCC) Start: 07-19-2024 End: 07-19-2024 Patient encounter procedure Marsha Camejoedith Work Phone: Podiatry Comment on above: Callus of foot (Prim sheryl Dx); Other diabetic neurological complication associated with type 2 diabetes mellitus (HCC); Pes planus of both feet Start: 07-19-2024 End: 07-19-2024 ambulatory HAYDEE CHRISTINA Facility:[facility] Start: 07-12-2024 End: 07-12-2024 ambulatory Jesse Glover Facility:[facility] Start: 07-02-2024 End: 07-05-2024 Telephone encounter Haydee Christina APRN.RISK AND COMPLIANCE ANALYTICS DIRECTOR Work Phone: Kidney Medicine Comment on above: Insurance Authorizat ion Start: 06-18-2024 End: 06-18-2024 Refill Jesse Glover MD Work Phone: Family Medicine [place] Comment on above: Refill Request Medication Problem Start: 06-14-2024 End: 06-15-2024 Refill Jesse Glover MD Work Phone: Internal Medicine [place] Comment on above: Refill Request; Medi cation Problem ([employer] 2 Sent to pharmacy in error. Should be medical supply company) Start: 06-12-2024 End: 06-12-2024 ambulatory AMERICA JOHNSTON Facility:[facility] Start: 06-12-2024 End: 06-12-2024 Patient encounter procedure America M Ke ALVA Work Phone: Internal Medicine [place] Comment on above: Medicare annual well ness visit, subsequent (Primary Dx); Type 2 diabetes mellitus with diabetic polyneuropathy, with long-term current use of insulin (HCC); Venous insufficiency; CKD (chronic kidney disease) stage 3, GFR 30-59 ml/min (HCC); Secondary hypertension due to renal disease; Mixed hyperlipidemia; Screening for depression; Encounter for screening examination for other mental health and behavioral disorders; Stage 3b chronic kidney disease (HCC) Start: 06-11-2024 End: 06-11-2024 ambulatory HAYDEE CHRISTINA Facility:[facility] Start: 06-07-2024 End: 06-07-2024 ambulatory MARSHA ERIC Facility:[facility] Start: 06-07-2024 End: 06-07-2024 Patient encounter procedure Marsha Eric Work Phone: Podiatry Comment on above: Callus of foot (Prim sheryl Dx); Other diabetic neurological complication associated with type 2 diabetes mellitus (HCC); Onychomycosis; Pain in toe of right foot; Pain in toe of left foot Start: 06-05-2024 End: 06-12-2024 Refill Jesse Glover MD Work Phone: Internal Medicine [place] Comment on above: Refill Request Forms Start: 05-31-2024 End: 05-31-2024 Telephone encounter Chanda Phillips APRN.KAMILA Work Phone: Endocrinology Comment on above: Blood Sugar Reading (Daija 2 ) Start: 05-31-2024 End: 05-31-2024 ambulatory JESSE GLOVER Facility:[facility] Start: 05-31-2024 End: 05-31-2024 Patient encounter procedure Nurse Anil Mckeon Mc Work Phone: Endocrinology Comment on above: Type 2 diabetes edson itus with stage 3a chronic kidney disease, with long-term current use of insulin (HCC) (Primary Dx) Start: 05-09-2024 End: 08-08-2024 ambulatory RADHA COHN Facility:[facility] Start: 05-09-2024 End: 05-09-2024 Patient encounter procedure Radha Cohn MD Work Phone: Ophthalmology Comment on above: 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, severe stage (Primary Dx) Start: 05-03-2024 End: 05-03-2024 ambulatory MARSHA ERIC Facility:[facility] Start: 05-03-2024 End: 05-03-2024 Patient encounter procedure Marsha Eric Work Phone: Podiatry Comment on above: 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) (Primary Dx); Callus of foot Start: 03-27-2024 End: 03-27-2024 Refill Jesse Glover MD Work Phone: Internal Medicine [place] Comment on above: Refill Request Start: 03-26-2024 End: 03-26-2024 Patient encounter procedure Marsha Eric Work Phone: Podiatry Comment on above: 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) (Primary Dx); Callus of foot Start: 03-19-2024 End: 03-20-2024 Refill Jesse Glover MD Work Phone: Internal Medicine [place] Comment on above: Results Start: 03-12-2024 End: 03-13-2024 Refill Jesse Glover MD Work Phone: [facility] Comment on above: Refill Request ([place] [facility] of pharmacy due to cost) Start: 03-09-2024 End: 03-09-2024 Refill Jesse Glover MD Work Phone: Internal Medicine [place] Comment on above: Refill Request Start: 03-07-2024 End: 03-07-2024 Telephone encounter Haydee Christina APRN.RISK AND COMPLIANCE ANALYTICS DIRECTOR Work Phone: Kidney Medicine Start: 03-05-2024 End: 03-05-2024 Patient encounter procedure Haydee Christina APRN.RISK AND COMPLIANCE ANALYTICS DIRECTOR Work Phone: Kidney Medicine Comment on above: Type 2 DM with CKD s tage 3 and hypertension (HCC) (Primary Dx); Other proteinuria; Hyperkalemia; Anemia of renal disease; Secondary renal hyperparathyroidism (HCC); Hyperlipidemia, unspecified hyperlipidemia type; Primary hypertension Start: 02-23-2024 End: 02-23-2024 Telephone encounter Jesse Glover MD Work Phone: Internal Medicine [place] Comment on above: faxed document (CMN- [employer]) Start: 02-14-2024 End: 02-14-2024 Office outpatient visit 25 minutes Jesse Glover MD Work Phone: Internal Medicine [place] Comment on above: Hyperlipidemia, unsp ecified hyperlipidemia type (Primary Dx); Type 2 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 disease, with long-term current use of insulin, unspecified whether stage 3a or 3b CKD (HCC); Type 2 diabetes mellitus with diabetic polyneuropathy, with long-term current use of insulin (HCC); Essential hypertension Start: 01-23-2024 End: 01-23-2024 Patient encounter procedure Marsha Eric Work Phone: Podiatry Comment on above: Callus of foot (Prim sheryl Dx); Other diabetic neurological complication associated with type 2 diabetes mellitus (HCC) Start: 12-20-2023 End: 12-20-2023 Patient encounter procedure Marsha Eric Work Phone: Podiatry Comment on above: Pes planus of both f eet (Primary Dx); Other diabetic neurological complication associated with type 2 diabetes mellitus (HCC); Callus of foot Start: 12-19-2023 End: 02-23-2024 Refill Jesse Glover MD Work Phone: Internal Medicine [place] Comment on above: Refill Request Start: 11-23-2023 Refill Jesse mike MD Work Phone: Internal Medicine [place] Comment on above: Refill Request Start: 10-31-2023 Telephone encounter Jesse henderson MD Work Phone: Family Medicine [place] Comment on above: Need for updated inf ormation for Daija sensor continuation Start: 10-27-2023 End: 10-27-2023 Patient encounter procedure Marsha Eric Work Phone: Podiatry Comment on above: Patient left without being seen (Primary Dx) Start: 10-18-2023 Telephone encounter Haydee sabillon APRN.RISK AND COMPLIANCE ANALYTICS DIRECTOR Work Phone: Vascular Medicine Start: 10-11-2023 End: 10-11-2023 Patient encounter procedure America Johnston 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 Work Phone: Internal Medicine [place] Comment on above: Type 2 diabetes edson itus with diabetic polyneuropathy, with long-term current use of insulin (HCC) (Primary Dx); Hyperlipidemia, unspecified hyperlipidemia type; Essential hypertension; Stage 3b chronic kidney disease (HCC) Vitamin D deficiency (Primary Dx); Hyperkalemia; Type 2 DM with CKD stage 3 and hypertension (HCC); Type 2 diabetes mellitus with diabetic polyneuropathy, with long-term current use of insulin (HCC); CKD (chronic kidney disease) stage 4, 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); Other proteinuria; Anemia of renal disease; Secondary renal hyperparathyroidism (HCC) Start: 10-11-2023 Telephone encounter Haydee sabillon APRN.RISK AND COMPLIANCE ANALYTICS DIRECTOR Work Phone: Kidney Medicine Comment on above: Results Start: 10-10-2023 End: 10-10-2023 Patient encounter procedure Haydee Christina APRN.RISK AND COMPLIANCE ANALYTICS DIRECTOR Work Phone: Kidney Medicine Comment on above: Type 2 DM with CKD s tage 3 and hypertension (HCC) (Primary Dx); Other proteinuria; Anemia of renal disease; Hyperlipidemia, unspecified hyperlipidemia type Start: 10-06-2023 End: 10-06-2023 Patient encounter procedure Adia Finnegan MD Work Phone: Ophthalmology Comment on above: 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 associated with type 2 diabetes mellitus (HCC) (Primary Dx); Retinal edema Start: 10-05-2023 Telephone encounter Chanda blair APRN.RISK AND COMPLIANCE ANALYTICS DIRECTOR Work Phone: Endocrinology Comment on above: Patient Update Start: 10-04-2023 End: 10-04-2023 Patient encounter procedure Chanda Phillips APRN.RISK AND COMPLIANCE ANALYTICS DIRECTOR Work Phone: Endocrinology Comment on above: Type 2 diabetes edson itus with 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, with long-term current use of insulin (HCC) (Primary Dx); Type 2 diabetes mellitus with diabetic polyneuropathy, with long-term current use of insulin (HCC); Type 2 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 disease, with long-term current use of insulin, unspecified whether stage 3a or 3b CKD ([facility]); Hypoglycemia due to type 2 diabetes mellitus ([facility]); Hypertension goal BP (blood pressure) < 140/90 Start: 09-15-2023 Refill Jesse mike MD Work Phone: Internal Medicine [place] Comment on above: Refill Request Start: 08-25-2023 Refill Jesse mike MD Work Phone: Internal Medicine [place] Comment on above: Refill Request Start: 06-23-2023 End: 06-23-2023 ambulatory [facility] Work Phone: Start: 06-23-2023 End: 06-23-2023 [facility] Start: 06-20-2023 Telephone encounter Yolanda Russell APRN.[facility] Work Phone: [place] [facility] Comment on above: Results Start: 06-19-2023 End: 06-19-2023 Patient encounter procedure Juana Vazquez APPLICATIONS PACKAGER.[facility] Work Phone: [place] [facility] Comment on above: Bacterial sinusitis (Primary Dx); Acute upper respiratory infection, unspecified Start: 06-09-2023 End: 06-09-2023 Patient encounter procedure America Johnston APPLICATIONS PACKAGER.[facility] Work Phone: Internal Medicine [place] Comment on above: Medicare annual well ness visit, subsequent (Primary Dx) Start: 05-05-2023 End: 05-05-2023 [facility] Start: 05-02-2023 Refill Radha Cohn MD Work Phone: Ophthalmology Comment on above: Refill Request Start: 04-26-2023 Refill Haydee Keene i, APRN.RISK AND COMPLIANCE ANALYTICS DIRECTOR Work Phone: Kidney Medicine Comment on above: Refill Request Type 2 diabetes edson itus with 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, with long-term current use of insulin (HCC); Type 2 diabetes mellitus with diabetic polyneuropathy, with long-term current use of insulin (HCC); Type 2 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 disease, with long-term current use of insulin, unspecified whether stage 3a or 3b CKD (HCC) Start: 04-18-2023 End: 04-18-2023 Patient encounter procedure Opht Laser Set Up Operator [place] Work Phone: Ophthalmology Comment on above: 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, severe stage (Primary Dx) Start: 04-13-2023 Telephone encounter Haydee sabillon APRN.RISK AND COMPLIANCE ANALYTICS DIRECTOR Work Phone: Kidney Medicine Comment on above: Medication Problem Start: 04-13-2023 End: 04-13-2023 Patient encounter procedure Radha Cohn MD Work Phone: Ophthalmology Comment on above: 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, severe stage (Primary Dx); 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); Vitreous floaters of both eyes; Retinal edema; 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, with long-term current use of insulin ([facility]) Start: 03-31-2023 End: 03-31-2023 Patient encounter procedure Haydee Christina APRN.RISK AND COMPLIANCE ANALYTICS DIRECTOR Work Phone: Kidney Medicine Comment on above: Type 2 DM with CKD s tage 3 and hypertension (HCC) (Primary Dx); Other proteinuria; Secondary renal hyperparathyroidism (HCC); Anemia of renal disease; Hyperlipidemia, unspecified hyperlipidemia type; Stage 3b chronic kidney disease (HCC); CKD (chronic kidney disease) stage 4, GFR 15-29 ml/min ([facility]) Start: 03-04-2023 Telephone encounter Chanda blair APRN.RISK AND COMPLIANCE ANALYTICS DIRECTOR Work Phone: Endocrinology Comment on above: [facility] (REQUES T FOR MOST RECENT OFFICE NOTE) Start: 02-10-2023 End: 02-10-2023 Patient encounter procedure Marsha Camejoedith Work Phone: Podiatry Comment on above: Callus of foot (Prim sheryl Dx); Pes planus of both feet; Other diabetic neurological complication associated with type 2 diabetes mellitus (HCC) Start: 02-09-2023 End: 02-09-2023 Patient encounter procedure Chanda Phillips APRN.RISK AND COMPLIANCE ANALYTICS DIRECTOR Work Phone: Endocrinology Comment on above: Type 2 diabetes edson itus with 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, with long-term current use of insulin (HCC) (Primary Dx); Type 2 diabetes mellitus with diabetic polyneuropathy, with long-term current use of insulin (HCC); Type 2 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 disease, with long-term current use of insulin, unspecified whether stage 3a or 3b CKD (HCC); Hypoglycemia due to type 2 diabetes mellitus (HCC); Hypertension goal BP (blood pressure) < 140/90; Hyperlipidemia, unspecified hyperlipidemia type Start: 12-16-2022 End: 12-16-2022 Patient encounter procedure Marsha Camejoedith Work Phone: Podiatry Comment on above: Callus of foot (Prim sheryl Dx); Pes planus of both feet; Other diabetic neurological complication associated with type 2 diabetes mellitus (HCC) Start: 12-13-2022 Telephone encounter Pk Johnson MD Work Phone: Endocrinology Comment on above: [employer] ([employer]) Form ([employer]) Start: 12-10-2022 Refill Jesse mike MD Work Phone: Internal Medicine [place] Comment on above: Refill Request Start: 10-27-2022 End: 10-27-2022 Patient encounter procedure America Mcginnis APRN.RISK AND COMPLIANCE ANALYTICS DIRECTOR Work Phone: Internal Medicine [place] Comment on above: Type 2 diabetes edson itus with diabetic polyneuropathy, with long-term current use of insulin (HCC) (Primary Dx); Essential hypertension; Stage 3b chronic kidney disease (HCC); Other proteinuria; Anemia in stage 3 chronic kidney disease, unspecified whether stage 3a or 3b CKD (HCC); Hyperlipidemia, unspecified hyperlipidemia type Start: 10-18-2022 End: 10-18-2022 Patient encounter procedure Victor Manuel Krishnan DO Work Phone: Kidney Medicine Comment on above: Stage 3b chronic kid clemente disease (HCC) (Primary Dx); Anemia of renal disease; Secondary renal hyperparathyroidism (HCC); Primary hypertension; Diabetic nephropathy associated with type 2 diabetes mellitus (HCC) Start: 10-06-2022 End: 10-06-2022 Patient encounter procedure Radha Cohn MD Work Phone: Ophthalmology Comment on above: 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 associated with type 2 diabetes mellitus (HCC) (Primary Dx); Primary open angle glaucoma (POAG) of both eyes, severe stage; Glaucomatous optic atrophy of both eyes; Vitreous floaters of both eyes Start: 09-21-2022 Refill Jesse mike MD Work Phone: Internal Medicine [place] Comment on above: Refill Request Start: 09-14-2022 End: 09-14-2022 Patient encounter procedure Marsha Hernesto Work Phone: Podiatry Comment on above: 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) (Primary Dx); Onychomycosis; Pain in toe of right foot; Pain in toe of left foot Start: 08-24-2022 Telephone encounter Chanda blair 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 Work Phone: Endocrinology Comment on above: [employer] Start: 08-23-2022 Refill Radha Cohn MD Work Phone: [place] [facility] Comment on above: Refill Request (Dorz eriberto and [employer]ol[employer]) Start: 08-20-2022 Telephone encounter Radha pacheco MD Work Phone: Ophthalmology Comment on above: Medication Problem; Insurance Authorization Start: 08-02-2022 Telephone encounter Chanda blair 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 Work Phone: Endocrinology Comment on above: Blood Sugar Reading ([employer] 2 report) Start: 08-02-2022 End: 08-02-2022 Patient encounter procedure Nurse Endo [facility] Work Phone: Endocrinology Comment on above: Diabetic polyneuropa thy associated with type 2 diabetes mellitus (HCC) [E11.42 (ICD-10-CM)] (Primary Dx) Start: 07-16-2022 Refill Radha Cohn MD Work Phone: [place] [facility] Comment on above: Refill Request Start: 06-29-2022 Telephone encounter Radha pacheco MD Work Phone: Ophthalmology Comment on above: Medication Problem Start: 06-29-2022 End: 06-29-2022 Patient encounter procedure Radha Cohn MD Work Phone: Ophthalmology Comment on above: 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 associated with type 2 diabetes mellitus (HCC) (Primary Dx); Primary open angle glaucoma (POAG) of both eyes, severe stage; Glaucomatous optic atrophy of both eyes; Vitreous floaters of both eyes Start: 06-16-2022 End: 06-16-2022 Patient encounter procedure Marsha Eric Work Phone: Podiatry Comment on above: 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) (Primary Dx); Pes planus of both feet; Callus of foot; Onychomycosis; Pain in toe of right foot; Pain in toe of left foot; Diminished pulses in lower extremity Start: 06-11-2022 Refill Bebeto wilkinson MD Work Phone: Ophthalmology Comment on above: Refill Request Start: 06-01-2022 Refill Victor Manuel Frausto Work Phone: [facility] Medicine [place] Comment on above: Refill Request Start: 05-27-2022 End: 05-27-2022 ambulatory JESSE GLOVER Facility:[facility] Start: 05-27-2022 End: 05-27-2022 Patient encounter procedure [facility] Work Phone: Plastic Surgery Comment on above: Skin ulcer of right great toe, limited to breakdown of skin (HCC) (Primary Dx) Start: 05-13-2022 End: 05-13-2022 ambulatory JESSE GLOVER Facility:[facility] Start: 05-13-2022 End: 05-13-2022 Patient encounter procedure [facility] Work Phone: Plastic Surgery Comment on above: Skin ulcer of right great toe, limited to breakdown of skin (HCC) (Primary Dx) Start: 05-05-2022 End: 05-05-2022 Patient encounter procedure Adia Finnegan MD Work Phone: Ophthalmology Comment on above: Retinal edema; 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) Start: 04-28-2022 Telephone encounter Chanda blair APRN.RISK AND COMPLIANCE ANALYTICS DIRECTOR Work Phone: Endocrinology Comment on above: Blood Sugar Reading ([employer]) Patient Question Start: 04-28-2022 End: 04-28-2022 Patient encounter procedure Nurse Anil [facility] Work Phone: Endocrinology Comment on above: Controlled type 2 di abetes mellitus with diabetic polyneuropathy, with long-term current use of insulin (HCC) [E11.42, Z79.4 (ICD-10-CM)] (Primary Dx) Start: 04-27-2022 End: 04-27-2022 Patient encounter procedure Jesse Glover MD Work Phone: Internal Medicine [place] Comment on above: Type 2 diabetes edson itus with 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, with long-term current use of insulin (HCC) (Primary Dx); Type 2 diabetes mellitus with diabetic polyneuropathy, with long-term current use of insulin (HCC); Type 2 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 disease, with long-term current use of insulin, unspecified whether stage 3a or 3b CKD (HCC); Need for influenza vaccination; Constipation, unspecified constipation type Start: 04-26-2022 End: 04-26-2022 ambulatory MAE CAMPBELL Facility:[facility] Start: 04-26-2022 End: 04-26-2022 Subsequent hospital visit by physician Xr [facility] Radiology Comment on above: Skin ulcer of right great toe, limited to breakdown of skin (HCC) [L97.511] Start: 04-26-2022 End: 04-26-2022 Patient encounter procedure [facility] Work Phone: Plastic Surgery Comment on above: Skin ulcer of right great toe, limited to breakdown of skin (HCC) (Primary Dx); Skin ulcer of second toe of right foot, limited to breakdown of skin (HCC) Start: 04-22-2022 Telephone encounter Mae Campbell DPM Work Phone: Plastic Surgery Comment on above: Patient Update Start: 04-21-2022 End: 04-21-2022 Patient encounter procedure Radha Cohn MD Work Phone: Ophthalmology Comment on above: 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, severe stage (Primary Dx); Glaucomatous optic atrophy of both eyes; 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, with long-term current use of insulin (HCC) Start: 04-19-2022 End: 04-19-2022 ambulatory [facility] Facility:[facility] Start: 04-19-2022 End: 04-19-2022 Patient encounter procedure [facility] Work Phone: Plastic Surgery Comment on above: Right foot ulcer, li mited to breakdown of skin (HCC) (Primary Dx) Start: 04-17-2022 End: 04-17-2022 Emergency department patient visit [facility]Emergency Department Start: 04-12-2022 Telephone encounter Haydee sabillon APRN.RISK AND COMPLIANCE ANALYTICS DIRECTOR Work Phone: Kidney Medicine Comment on above: Results Start: 04-10-2022 End: 04-10-2022 Patient encounter procedure [facility] Start: 04-09-2022 End: 04-10-2022 ambulatory HAYDEE CHRISTINA Facility:[facility] Start: 04-09-2022 End: 04-09-2022 ambulatory [facility] Facility:[facility] Start: 04-09-2022 End: 04-09-2022 Patient encounter procedure [facility] Work Phone: Plastic Surgery Comment on above: Right foot ulcer, li mited to breakdown of skin (HCC) (Primary Dx) Start: 04-08-2022 End: 04-08-2022 Patient encounter procedure Haydee Christina APRN.RISK AND COMPLIANCE ANALYTICS DIRECTOR Work Phone: Kidney Medicine Comment on above: Stage 3b chronic kid clemente disease (HCC) (Primary Dx); Type 2 DM with CKD stage 3 and hypertension (HCC); Essential hypertension; Other proteinuria; Anemia of renal disease; Hyperlipidemia, unspecified hyperlipidemia type; Secondary renal hyperparathyroidism (HCC) Start: 04-07-2022 Telephone encounter Jesse henderson MD Work Phone: Internal Medicine [place] Comment on above: Faxed to wound cente r Start: 04-07-2022 End: 04-07-2022 Patient encounter procedure Henrry Gonzalez MD Work Phone: [facility] Comment on above: Diabetic ulcer of to e of right foot associated with type 2 diabetes mellitus, limited to breakdown of skin (HCC) (Primary Dx) Start: 04-06-2022 Telephone encounter Marsha Te kezia Work Phone: Family Medicine [place] Comment on above: Patient Question Start: 02-23-2022 End: 02-23-2022 Patient encounter procedure Radha Addison OD Work Phone: Ophthalmology Comment on above: Vitreous floaters of both eyes (Primary Dx); 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, with long-term current use of insulin (HCC); Primary open angle glaucoma (POAG) of both eyes, severe stage; Glaucomatous optic atrophy of both eyes Start: 02-22-2022 Telephone encounter Radha pacheco MD Work Phone: Ophthalmology Comment on above: Patient Question Start: 01-29-2022 Refill Jesse mike MD Work Phone: [facility] [place] Comment on above: Refill Request Start: 01-26-2022 Refill Jesse mike MD Work Phone: [facility] [place] Comment on above: Refill Request Medication Problem Start: 01-21-2022 Orders Only Haydee Keene i, APRN.RISK AND COMPLIANCE ANALYTICS DIRECTOR Work Phone: Kidney Medicine Start: 01-20-2022 Refill Jesse mike MD Work Phone: Internal Medicine [place] Comment on above: Refill Request Start: 01-19-2022 Telephone encounter Victor Manuel parish DO Work Phone: Kidney Medicine Comment on above: Patient Update Start: 01-18-2022 Telephone encounter Victor Manuel parish DO Work Phone: Kidney Medicine Comment on above: Medication Problem Start: 01-14-2022 End: 01-14-2022 Patient encounter procedure Jesse Glover MD Work Phone: Internal Medicine [place] Comment on above: Flank pain, acute (P rimary Dx); Essential hypertension Start: 01-08-2022 Refill Jesse mike MD Work Phone: Internal Medicine [place] Comment on above: Refill Request Start: 01-01-2022 End: 01-01-2022 Patient encounter procedure Chanda Phillips 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 Work Phone: Endocrinology Comment on above: Type 2 diabetes edson itus with 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, with long-term current use of insulin (HCC) (Primary Dx); Type 2 diabetes mellitus with diabetic polyneuropathy, with long-term current use of insulin (HCC); Type 2 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 disease, with long-term current use of insulin, unspecified whether stage 3a or 3b CKD (HCC); Hypertension goal BP (blood pressure) < 140/90; Hyperlipidemia, unspecified hyperlipidemia type; Hypoglycemia due to type 2 diabetes mellitus (HCC) Start: 12-23-2021 End: 12-23-2021 Patient encounter procedure America Mcginnis 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 Work Phone: Internal Medicine [place] Comment on above: Type 2 diabetes edson itus with diabetic polyneuropathy, with long-term current use of insulin (HCC) (Primary Dx); Benign paroxysmal positional vertigo, unspecified laterality; Stage 3b chronic kidney disease (HCC); Essential hypertension Start: 12-18-2021 Telephone encounter Marsha Casillas Work Phone: Podiatry Comment on above: Results Start: 12-15-2021 End: 12-15-2021 Patient encounter procedure Marsha Eric Work Phone: Podiatry Comment on above: 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) (Primary Dx); Pes planus of both feet; Callus of foot; Onychomycosis; Pain in toe of right foot; Pain in toe of left foot; Diminished pulses in lower extremity Start: 11-27-2021 Telephone encounter Marsha Casillas Work Phone: Podiatry Comment on above: Patient Update Start: 11-18-2021 End: 11-18-2021 Patient encounter procedure Damien Anderson PA-C Work Phone: General Surgery Comment on above: History of colonic p olyps (Primary Dx); Diverticulosis; Tubular adenoma of colon Start: 11-06-2021 Telephone encounter Ronal baxter MD Work Phone: General Surgery Comment on above: Procedure Follow Up (EGD completed on 11/04/2021) Start: 11-04-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 Start: 10-15-2021 End: 10-15-2021 ambulatory Padmini Mclean PT Work Phone: [facility] Comment on above: Benign paroxysmal po sitional vertigo, unspecified laterality; Dizziness and giddiness Start: 10-14-2021 End: 10-14-2021 Patient encounter procedure Victor Manuel Krishnan DO Work Phone: Kidney Medicine Comment on above: Stage 3b chronic kid clemente disease (HCC) (Primary Dx); Anemia of renal disease; Secondary renal hyperparathyroidism (HCC); Essential hypertension; Vertigo Start: 10-13-2021 Refill Jesse mike MD Work Phone: Internal Medicine [place] Comment on above: Prescription Refills Start: 10-12-2021 Telephone encounter America Older 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 Work Phone: Internal Medicine [place] Comment on above: Patient Question Start: 10-07-2021 Refill Jesse mike MD Work Phone: Internal Medicine [place] Comment on above: Refill Request; Refi ll Request Start: 10-06-2021 End: 10-06-2021 ambulatory Padmini Mclean PT Work Phone: [facility] Comment on above: Benign paroxysmal po sitional vertigo, unspecified laterality; Dizziness and giddiness Start: 10-02-2021 Refill Jesse mike MD Work Phone: Internal Medicine [place] Comment on above: Refill Request Start: 10-01-2021 Non-patient / Non-visit Dr. Marilee Glover Work Phone: [facility] Start: 10-01-2021 End: 10-01-[address] Jesse Glover Work Phone: [facility] Start: 09-29-2021 ambulatory Jesse mike MD Work Phone: Internal Medicine [facility] [place] Start: 09-24-2021 Telephone encounter Jesse henderson MD Work Phone: Internal Medicine [place] Comment on above: Insurance Authorizat ion Start: 09-23-2021 Telephone encounter America Older 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 Work Phone: Internal Medicine [place] Comment on above: Results Start: 09-22-2021 End: 09-22-2021 Patient encounter procedure America Older 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 Work Phone: Internal Medicine [place] Comment on above: Benign paroxysmal po sitional vertigo, unspecified laterality (Primary Dx); Hyperkalemia; Type 2 diabetes mellitus with diabetic polyneuropathy, with long-term current use of insulin (HCC); Hyperlipidemia, unspecified hyperlipidemia type Start: 09-17-2021 End: 09-17-2021 Emergency department patient visit Dr. Jesse Glover Work Phone: [facility] Start: 09-10-2021 Non-patient / Non-visit Dr. Marilee Glover Work Phone: [facility] Start: 09-10-2021 End: 09-24-[address] [facility]over [facility] Start: 09-03-2021 Non-patient / Non-visit Dr. Marilee Glover Work Phone: [facility] Start: 09-02-2021 Telephone encounter Damien morgan PA-C Work Phone: General Surgery Comment on above: 11-04-2021 Colon Med nancy Start: 08-07-2021 End: 08-07-2021 Emergency department patient visit Dr. Jesse Glover Work Phone: [facility] Start: 04-07-2018 [facility] Facility :[facility] Start: 08-08-2017 End: 08-08-2017 [facility] Facility:[facility] Procedures Date Procedure Procedure Detail Performing Clinician Start: 10-31-2024 Hemoglobin A1c/Hemoglobin.total in Blood Chanda Phillips 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 Work Phone: Start: 09-06-2024 Computerized ophthal bj imaging retina Adia Finnegan MD Work Phone: Start: 06-12-2024 Hemoglobin A1c/Hemoglobin.total in Blood America Johnston 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 Work Phone: Start: 06-12-2024 Adult depression scr eening assessment Jesse Glover MD Work Phone: Start: 05-09-2024 Computerized ophthal bj imaging optic nerve Radha Cohn MD Work Phone: Start: 10-06-2023 Computerized ophthal bj imaging retina Adia Finnegan MD Work Phone: Start: 10-04-2023 Hemoglobin A1c/Hemoglobin.total in Blood [facility] 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 Work Phone: Start: 06-23-2023 Urine culture Start: 06-19-2023 STREP A MOLECULAR (POC) [facility] Provider Start: 05-05-2023 Urine culture Start: 04-13-2023 Visual field xm uni/ bi w/interp extended exam Radha Cohn MD Work Phone: Start: 02-09-2023 Hemoglobin A1c/Hemoglobin.total in Blood [facility] 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 Work Phone: Start: 10-06-2022 Computerized ophthal bj imaging optic nerve Radha Cohn MD Work Phone: Start: 06-29-2022 Computerized ophthal bj imaging retina Radha Cohn MD Work Phone: Start: 04-27-2022 INFLUENZA SEASONAL QUADRIVALENT HIGH DOSE AGE 65+ Jesse Glover MD Work Phone: Start: 04-21-2022 End: 04-21-2022 Visual field xm uni/bi w/interp extended exam Radha Cohn MD Work Phone: Start: 01-01-2022 Hemoglobin A1c/Hemoglobin.total in Blood [facility] 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 Work Phone: Start: 12-23-2021 Adult depression scr eening assessment America Older 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 Work Phone: Start: 11-04-2021 Gluc bld gluc mntr d ev cleared fda spec home use Benson Downs MD Work Phone: Start: 11-04-2021 Colon ca scrn not hi rsk ind Damien Anderson PA-C Work Phone: Start: 11-04-2021 Gluc bld gluc mntr d ev cleared fda spec home use Benson Downs MD Work Phone: Start: 11-04-2021 Colonoscopy Damien morgan PA-C Work Phone: Start: 09-17-2021 Plain chest X-ray Dr. Lyn Glover Work Phone: Start: 08-07-2021 Plain chest X-ray Dr. Lyn Glover Work Phone: Start: 09-05-2020 Adult depression scr eening assessment America Older 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 Work Phone: Start: 08-04-2016 Colonoscopy America Older 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 Work Phone: Plan of Treatment Date Care Activity Detail Author Start: 01-13-2028 Urine microalbumin profile [facility] Start: 11-04-2026 Colonoscopy COLONOSCOPY [facility] Start: 11-04-2026 COLORECTAL CANCER SCREENING COLORECTAL CANCER SCREENING [facility] Start: 03-05-2026 Annual PCP Team Chronic Disease Visit Annual PCP Team Chronic Disease Visit [facility] Start: 03-05-2026 Complete blood count Hemoglobin/Hematocrit [facility] Start: 03-05-2026 Creatinine measurement Serum Creatinine [facility] Start: 02-19-2026 Creatinine measurement Serum Creatinine [facility] Start: 01-07-2026 Annual PCP Team Chronic Disease Visit Annual PCP Team Chronic Disease Visit [facility] Start: 01-06-2026 End: 01-06-2026 Patient encounter procedure 01/06/2026 12:40 PM EDT Office Visit [facility] [place] [address] [place], [place] [address] Jesse Glover MD [address] [place] [id number] 6 month follow-up [facility] [place] Comment on above: 6 month follow-up Start: 01-02-2026 Creatinine measurement Serum Creatinine [facility] Start: 12-18-2025 Diabetic foot examination Diabetic Foot Exam [facility] Start: 11-26-2025 Annual PCP Team Chronic Disease Visit Annual PCP Team Chronic Disease Visit [facility] Start: 11-22-2025 Complete blood count Hemoglobin/Hematocrit [facility] Start: 11-22-2025 Creatinine measurement Serum Creatinine [facility] Start: 09-21-2025 End: 02-28-2026 OCT MACULA CIRRUS OU (BOTH EYES) OCT MACULA CIRRUS OU (BOTH EYES) [facility] Imaging Routine 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 Start: 09-06-2025 Glaucoma screening Dilated Retinal Exam [facility] Start: 07-19-2025 Complete blood count Hemoglobin/Hematocrit [facility] Start: 07-19-2025 Creatinine measurement Serum Creatinine [facility] Start: 06-24-2025 End: 06-24-2025 Patient encounter procedure 06/24/2025 12:40 PM EST Office Visit [facility] [place] [address] [place] [address] America Johnston, 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 [address] [place] [address] Annual Medicare Wellness w/5 month follow-up [facility] [place] Comment on above: Annual Medicare Wellness w/5 month follo w-up Start: 06-12-2025 Annual PCP Team Chronic Disease Visit Annual PCP Team Chronic Disease Visit [facility] Start: 06-12-2025 Anxiety Screening Anxiety Screening [facility] Start: 06-12-2025 BP Controlled (<130/80) BP Controlled (<130/80) [facility] Start: 06-12-2025 Depression Screening Depression Screening [facility] Start: 06-12-2025 Medicare Annual Wellness Visit Medicare Annual Wellness Visit [facility] Start: 06-11-2025 Hepatitis B surface antibody level LDL Cholesterol [facility] Start: 05-08-2025 End: 05-08-2025 Patient encounter procedure 05/08/2025 1:00 PM EST Office Visit [facility] Ophthalmology [address] [place] [address] Radha Cohn MD [address] [place] [address] [facility] [address] [address] HVF 24-2 OCT NERVE Ophthalmology Comment on above: HVF 24-2 OCT NERVE Start: 05-03-2025 Hemoglobin A1c measurement HbA1C [facility] Start: 05-03-2025 End: 05-03-2025 Patient encounter procedure 05/03/2025 10:30 AM EST Office Visit Endocrinology [address] [address] Chanda Phillips, 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 [address] [address] follow up Endocrinology Comment on above: follow up Start: 03-28-2025 End: 03-28-2025 Patient encounter procedure 03/28/2025 1:30 PM EDT Office Visit Kidney Medicine [address] [place] [address] Haydee Christina, 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 [address] [place] [address] CKD follow up Kidney Medicine Comment on above: CKD follow up Start: 03-26-2025 End: 03-26-2025 Patient encounter procedure 03/26/2025 11:15 AM EDT Office Visit Podiatry [address] [place] [id number] Marsha Eric [address] [place] [address] 4 WEEK FOLLOW UP Podiatry Comment on above: 4 WEEK FOLLOW UP Start: 03-25-2025 End: 06-24-2025 25-hydroxyvitamin D3 [Mass/volume] in Serum or Plasma VITAMIN D 25 HYDROXY Lab Routine Secondary renal hyperparathyroidism (HCC) Expected: 03/25/2025 (Approximate), Expires: 06/24/2025 [facility] Comment on above: Expected: 03/25/2025 (Approximate), Expi res: 06/24/2025 Start: 03-25-2025 End: 11-22-2025 CBC W Auto Differential panel - Blood COMPLETE BLOOD COUNT AND DIFFERENTIAL Lab Routine Anemia of renal disease Expected: 03/25/2025 (Approximate), Expires: 11/22/2025 [facility] Comment on above: Expected: 03/25/2025 (Approximate), Expi res: 11/22/2025 Start: 03-25-2025 End: 06-24-2025 Parathyrin.intact [Mass/volume] in Serum or Plasma PTH INTACT Lab Routine 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) Expected: 03/25/2025 (Approximate), Expires: 06/24/2025 [facility] Comment on above: Expected: 03/25/2025 (Approximate), Expi res: 06/24/2025 Start: 03-25-2025 End: 11-22-2025 Protein/Creatinine [Mass Ratio] in Urine PROTEIN / CREATININE RATIO Lab Routine 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) Other proteinuria Expected: 03/25/2025 (Approximate), Expires: 11/22/2025 [facility] Comment on above: Expected: 03/25/2025 (Approximate), Expi res: 11/22/2025 Start: 03-25-2025 End: 11-22-2025 Renal function 2000 panel - Serum or Plasma RENAL FUNCTION PANEL Lab Routine 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) Other proteinuria Hyperkalemia Expected: 03/25/2025 (Approximate), Expires: 11/22/2025 [facility] Work Phone: Comment on above: Expected: 03/25/2025 (Approximate), Expi res: 11/22/2025 Start: 03-25-2025 End: 06-24-2025 Urinalysis complete panel - Urine URINALYSIS (WITH MICROSCOPIC) WITH CULTURE IF INDICATED Lab Routine 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) Other proteinuria Expected: 03/25/2025 (Approximate), Expires: 06/24/2025 [facility] Comment on above: Expected: 03/25/2025 (Approximate), Expi res: 06/24/2025 Start: 03-21-2025 End: 03-21-2025 Patient encounter procedure 03/21/2025 9:30 AM EDT Office Visit Kidney Medicine [id number] [place] [id number] Haydee Christina 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 [address] [place] [address] Follow up discuss medications/ swelling Kidney Medicine Comment on above: Follow up discuss medications/ swelling Start: 03-19-2025 End: 03-19-2025 OT/PT/Speech Visit 03/19/2025 9:45 AM EDT OT/PT/Speech Visit [facility] [address] [place] [address] Melinda Ahmadi, PT asked to schedule but still needs order [facility] Comment on above: asked to schedule but still needs order Start: 03-14-2025 End: 06-13-2025 Potassium [Moles/volume] in Serum or Plasma POTASSIUM Lab Routine Hyperkalemia Expected: 03/14/2025, Expires: 06/13/2025 [facility] Work Phone: Comment on above: Expected: 03/14/2025, Expires: Start: 03-11-2025 End: 03-11-2025 Patient encounter procedure 03/11/2025 2:00 PM EDT Office Visit [facility] [place] [address] [place], [place] [id number] Sherwin Hayes, MARIA TERESA.RISK AND COMPLIANCE ANALYTICS DIRECTOR [address] [place], [place] [address] Feet continue to be swollen; Asking about lab results [facility] [place] Comment on above: Feet continue to be swollen; Asking abou t lab results Start: 03-05-2025 End: 06-04-2025 Basic metabolic 2000 panel - Serum or Plasma [facility] Work Phone: Comment on above: Expected: 03/05/2025, Expires: Start: 03-05-2025 Complete blood count Hemoglobin/Hematocrit [facility] Start: 03-05-2025 Creatinine measurement Serum Creatinine [facility] Start: 03-05-2025 Hepatitis B surface antibody level LDL Cholesterol [facility] Start: 02-28-2025 End: 02-28-2025 Patient encounter procedure 02/28/2025 11:30 AM EDT Office Visit Podiatry [address] [place], [place] [phone] Marsha Eric [address] [place] [address] 4 WEEK FOLLOW UP Podiatry Comment on above: 4 WEEK FOLLOW UP Start: 02-25-2025 Influenza vaccination [facility] Start: 02-21-2025 End: 02-21-2025 ambulatory 02/21/2025 10:45 AM EDT OT/PT/Speech Visit [facility] [address] [place] [address] Inocencio Reynolds, PT R hip pain [facility] Comment on above: R hip pain Start: 02-19-2025 End: 02-19-2025 ambulatory 02/19/2025 1:15 PM EDT OT/PT/Speech Visit [facility] [address] [place] [address] Inocencio Reynolds, PT R hip pain [facility] Comment on above: R hip pain Start: 02-14-2025 End: 02-14-2025 ambulatory 02/14/2025 10:45 AM EDT OT/PT/Speech Visit [facility] [address] [place] [address] Inocencio Reynolds, PT R hip pain [facility] Comment on above: R hip pain Start: 02-13-2025 Annual PCP Team Chronic Disease Visit Annual PCP Team Chronic Disease Visit [facility] Start: 02-12-2025 End: 02-12-2025 ambulatory 02/12/2025 2:00 PM EDT OT/PT/Speech Visit [facility] [address] [place] [address] Charissa Campuzano, DATABASE DBA [address] [place] [address] R hip pain [facility] Comment on above: R hip pain Start: 02-07-2025 End: 02-07-2025 ambulatory 02/07/2025 10:45 AM EDT OT/PT/Speech Visit [facility] [address] [place] [address] Inocencio Reynolds PT R hip pain [facility] Comment on above: R hip pain Start: 2025 End: 2025 Patient encounter procedure 2025 10:45 AM EDT Office Visit [facility] Ophthalmology [address] [place] [address] Radha Cohn MD [address] [place] [address] Diagnostics, [facility] [address] [address] 2 mo follow up Ophthalmology Comment on above: 2 mo follow up Start: 02-05-2025 End: 02-05-2025 ambulatory 02/05/2025 2:00 PM EDT OT/PT/Speech Visit [facility] [address] [place] [address] Charissa Campuzano, DATABASE DBA [address] [place] [address] R hip pain [facility] Comment on above: R hip pain Start: 01-30-2025 End: 01-30-2025 ambulatory 01/30/2025 10:30 AM EDT OT/PT/Speech Visit [facility] [address] [place] [address] Inocencio Reynolds, PT R hip pain [facility] Comment on above: R hip pain Start: 01-21-2025 End: 04-22-2025 Basic metabolic 2000 panel - Serum or Plasma BASIC METABOLIC PANEL Lab Routine Type 2 diabetes mellitus with stage 4 chronic kidney disease, with long-term current use of insulin (HCC) Expected: 01/21/2025, Expires: 04/22/2025 [facility] Work Phone: Comment on above: Expected: 01/21/2025, Expires: Start: 01-21-2025 End: 04-22-2025 Magnesium [Mass/volume] in Serum or Plasma MAGNESIUM Lab Routine Type 2 diabetes mellitus with stage 4 chronic kidney disease, with long-term current use of insulin (HCC) Expected: 01/21/2025, Expires: 04/22/2025 [facility] Comment on above: Expected: 01/21/2025, Expires: Start: 01-21-2025 End: 01-21-2025 Patient encounter procedure 01/21/2025 11:15 AM EDT Office Visit Podiatry [address] [place], [place] [address] Marsha Eric [address] [place] [address] 1 moth follow up Podiatry Comment on above: 1 moth follow up Start: 01-15-2025 End: 01-15-2025 ambulatory 01/15/2025 12:30 PM EDT OT/PT/Speech Visit [facility] [address] [place], [place] [address] Inocencio Reynolds, PT rt hip [facility] Comment on above: rt hip Start: 01-07-2025 End: 01-07-2025 Patient encounter procedure 01/07/2025 1:20 PM EDT Office Visit Internal Medicine [facility] [address] [place] [address] Jesse Glover MD [address] [place] [address] Follow Up Internal Medicine [facility] Comment on above: Follow Up Start: 01-02-2025 End: 01-02-2025 ambulatory 01/02/2025 11:15 AM EDT OT/PT/Speech Visit [facility] [address] [place] [address] Inocencio Reynolds PT rt hip [facility] Comment on above: rt hip Start: 12-31-2024 End: 04-01-2025 Basic metabolic 2000 panel - Serum or Plasma BASIC METABOLIC PANEL Lab Routine Hyperkalemia Expected: 12/31/2024, Expires: 04/01/2025 [facility] Work Phone: Comment on above: Expected: 12/31/2024, Expires: Start: 12-24-2024 Influenza vaccination Influenza Vaccine (#1) [facility] Comment on above: Postponed from 02/26/2024 (Declined at t his time) Start: 12-19-2024 Diabetic foot examination Diabetic Foot Exam [facility] Start: 12-19-2024 End: 12-19-2024 ambulatory 12/19/2024 9:00 AM EDT OT/PT/Speech Visit [facility] [address] [place] [address] Inocencio Reynolds, PT R hip pain [facility] Comment on above: R hip pain Start: 12-18-2024 End: 12-18-2024 Patient encounter procedure 12/18/2024 11:30 AM EDT Office Visit Podiatry [address] [place] [address] Marsha Eric [address] [place] [address] 4 week follow up foot care Podiatry Comment on above: 4 week follow up foot care Start: 12-11-2024 Hemoglobin A1c measurement HbA1C [facility] Start: 12-06-2024 End: 12-06-2024 Patient encounter procedure 12/06/2024 10:40 AM EDT Office Visit Internal Medicine [place] [address] [place] [address] Jesse Glover MD [address] [place], [place] [address] >4 month follow-up (last seen 05/2024) [facility] Comment on above: >4 month follow-up (last seen 05/2024) Start: 12-05-2024 End: 12-05-2024 Patient encounter procedure Ophthalmology Comment on above: 6 month f/u- visual daniel Start: 12-04-2024 End: 03-05-2025 Potassium [Moles/volume] in Serum or Plasma POTASSIUM Lab Routine Hyperkalemia Expected: 12/04/2024 (Approximate), Expires: 03/05/2025 [facility] Work Phone: Comment on above: Expected: 12/04/2024 (Approximate), Expi res: 03/05/2025 Start: 11-30-2024 End: 03-01-2025 Potassium [Moles/volume] in Serum or Plasma POTASSIUM Lab Routine Hyperkalemia Expected: 11/30/2024 (Approximate), Expires: 03/01/2025 [facility] Work Phone: Comment on above: Expected: 11/30/2024 (Approximate), Expi res: 03/01/2025 Start: 11-26-2024 End: 11-26-2024 Patient encounter procedure 11/26/2024 3:40 PM EDT Office Visit Internal Medicine [place] [address] [place] [address] Jesse Glover MD [address] [place] [address] [facility] f/u 11/22 low potassium [facility] Comment on above: [facility] f/u 11/22 low potassium Start: 11-22-2024 End: 11-22-2024 Patient encounter procedure 11/22/2024 1:00 PM EDT Office Visit Kidney Medicine [address] [place] [address] Haydee Christina 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 [address] [place] [address] 4 month follow up Kidney Medicine Comment on above: 4 month follow up Start: 11-20-2024 End: 11-20-2024 Patient encounter procedure 11/20/2024 11:15 AM EDT Office Visit Podiatry [address] [place] [address] Marsha Eric [address] [place] [address] 4 week follow up foot care Podiatry Comment on above: 4 week follow up foot care Start: 11-07-2024 End: 11-07-2024 Patient encounter procedure 11/07/2024 10:15 AM EDT Office Visit [facility] Ophthalmology [address] [place] [address] Radha Cohn MD [address] [place] [address] visual daniel Ophthalmology Comment on above: visual daniel Start: 11-04-2024 Colonoscopy COLONOSCOPY [facility] Start: 11-04-2024 COLORECTAL CANCER SCREENING COLORECTAL CANCER SCREENING [facility] Start: 10-31-2024 End: 10-31-2024 Patient encounter procedure 10/31/2024 11:30 AM EDT Office Visit Endocrinology [address] [address] Chanda Phillips APRN.RISK AND COMPLIANCE ANALYTICS DIRECTOR [address] [address] Diabetes FU Endocrinology Comment on above: Diabetes FU Start: 10-23-2024 End: 10-23-2024 Patient encounter procedure 10/23/2024 1:00 PM EDT Office Visit Podiatry [address] [place] [address] Marsha Eric [address] [place] [address] 4 week follow up foot care Podiatry Comment on above: 4 week follow up foot care Start: 10-21-2024 End: 01-20-2025 25-hydroxyvitamin D3 [Mass/volume] in Serum or Plasma VITAMIN D 25 HYDROXY Lab Routine Secondary renal hyperparathyroidism (HCC) Expected: 10/21/2024 (Approximate), Expires: 01/20/2025 [facility] Comment on above: Expected: 10/21/2024 (Approximate), Expi res: 01/20/2025 Start: 10-21-2024 End: 07-23-2025 CBC W Auto Differential panel - Blood COMPLETE BLOOD COUNT AND DIFFERENTIAL Lab Routine Anemia of renal disease Expected: 10/21/2024 (Approximate), Expires: 07/23/2025 [facility] Comment on above: Expected: 10/21/2024 (Approximate), Expi res: 07/23/2025 Start: 10-21-2024 End: 01-20-2025 Parathyrin.intact [Mass/volume] in Serum or Plasma PTH INTACT Lab Routine Secondary renal hyperparathyroidism (HCC) Expected: 10/21/2024 (Approximate), Expires: 01/20/2025 [facility] Comment on above: Expected: 10/21/2024 (Approximate), Expi res: 01/20/2025 Start: 10-21-2024 End: 07-23-2025 Protein/Creatinine [Mass Ratio] in Urine PROTEIN / CREATININE RATIO Lab Routine 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) Other proteinuria Expected: 10/21/2024 (Approximate), Expires: 07/23/2025 [facility] Comment on above: Expected: 10/21/2024 (Approximate), Expi res: 07/23/2025 Start: 10-21-2024 End: 07-23-2025 Renal function 2000 panel - Serum or Plasma RENAL FUNCTION PANEL Lab Routine 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) Other proteinuria Hyperkalemia Expected: 10/21/2024 (Approximate), Expires: 07/23/2025 [facility] Work Phone: Comment on above: Expected: 10/21/2024 (Approximate), Expi res: 07/23/2025 Start: 10-21-2024 End: 07-23-2025 URINALYSIS, DIPSTICK ONLY URINALYSIS, DIPSTICK ONLY Lab Routine 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) Other proteinuria Expected: 10/21/2024 (Approximate), Expires: 07/23/2025 [facility] Comment on above: Expected: 10/21/2024 (Approximate), Expi res: 07/23/2025 Start: 10-20-2024 End: 03-29-2025 OCT MACULA CIRRUS OU (BOTH EYES) OCT MACULA CIRRUS OU (BOTH EYES) [facility] Imaging Routine 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) Retinal edema Expected: 10/20/2024, Expires: 03/29/2025 [facility] Work Phone: Comment on above: Expected: 10/20/2024, Expires: Start: 10-16-2024 End: 10-16-2024 Patient encounter procedure 10/16/2024 10:20 AM EDT Office Visit Internal [facility] [place] [address] [place] [address] Jesse Glover MD [address] [place] [address] 4 month follow-up [facility] Comment on above: 4 month follow-up Start: 10-10-2024 Annual PCP Team Chronic Disease Visit Annual PCP Team Chronic Disease Visit [facility] Start: 10-10-2024 BP Controlled (<130/80) BP Controlled (<130/80) [facility] in Start: 10-09-2024 Complete blood count Hemoglobin/Hematocrit [facility] Start: 10-09-2024 Creatinine measurement Serum Creatinine [facility] Start: 10-05-2024 Glaucoma screening Dilated Retinal Exam [facility] Start: 10-03-2024 BP Controlled (<130/80) BP Controlled (<130/80) [facility] in Start: 09-25-2024 End: 09-25-2024 Patient encounter procedure Podiatry Comment on above: 5 week follow up foot care Start: 09-06-2024 End: 09-06-2024 Patient encounter procedure Ophthalmology Comment on above: Diabetic retinopathy follow up Start: 08-23-2024 End: 08-23-2024 Patient encounter procedure 08/23/2024 1:00 PM EST Office Visit Podiatry [address] [place] [address] Marsha Eric [address] [address] 5 week follow up Podiatry Comment on above: 5 week follow up Start: 08-16-2024 End: 08-16-2024 Patient encounter procedure 08/16/2024 9:45 AM EST Office Visit [facility] Op[facility]mology [address] [address] Adia Finnegan MD [address] [place] [address] Diabetic retinopathy follow up Ophthalmology Comment on above: Diabetic retinopathy follow up Start: 08-10-2024 End: 08-10-2024 Patient encounter procedure 08/10/2024 3:15 PM EST Office Visit Endocrinology [address] [address] Chanda Phillips, 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 [address] [address] Diabetes follow up Endocrinology Comment on above: Diabetes follow up Start: 07-23-2024 End: 07-23-2024 Patient encounter procedure 07/23/2024 1:30 PM EST Office Visit Kidney Medicine [address] [place] [address] Haydee Christina, 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 [address] [place] [address] Patient confirmedCHANGE OF APPT TIME FROM 11:20AM TO 11:00AM. AD [facility]ney Medicine Comment on above: Patient confirmedCHANGE OF APPT TIME FRO M 11:20AM TO 11:00AM. AD Start: 07-19-2024 End: 07-19-2024 Patient encounter procedure 07/19/2024 2:15 PM EST Office Visit Podiatry [address] [place], [place] [address] Marsha Eric [address] [id number] 1 month follow up diabetic foot check Podiatry Comment on above: 1 month follow up diabetic foot check Start: 07-12-2024 End: 07-12-2024 Patient encounter procedure 07/12/2024 10:00 AM EST Office Visit [facility] Ophthalmology [address] [address] Adia Finnegan MD [address] [place] [address] Diabetic retinopathy follow up Ophthalmology Comment on above: Diabetic retinopathy follow up Start: 07-09-2024 End: 07-09-2024 Patient encounter procedure 07/09/2024 1:00 PM EST Office Visit Podiatry [address] [place] [address] Marsha Eric [address] [address] 1 month follow up diabetic foot check Podiatry Comment on above: 1 month follow up diabetic foot check Start: 07-05-2024 End: 03-05-2025 CBC W Auto Differential panel - Blood COMPLETE BLOOD COUNT AND DIFFERENTIAL Lab Routine Anemia of renal disease Expected: 07/05/2024 (Approximate), Expires: 03/05/2025 [facility] Comment on above: Expected: 07/05/2024 (Approximate), Expi res: 03/05/2025 Start: 07-05-2024 End: 03-05-2025 Protein/Creatinine [Mass Ratio] in Urine PROTEIN / CREATININE RATIO Lab Routine Type 2 DM with CKD stage 3 and hypertension (HCC) Other proteinuria Expected: 07/05/2024 (Approximate), Expires: 03/05/2025 [facility] Comment on above: Expected: 07/05/2024 (Approximate), Expi res: 03/05/2025 Start: 07-05-2024 End: 03-05-2025 Renal function 2000 panel - Serum or Plasma RENAL FUNCTION PANEL Lab Routine Type 2 DM with CKD stage 3 and hypertension (HCC) Other proteinuria Hyperkalemia Expected: 07/05/2024 (Approximate), Expires: 03/05/2025 [facility] Work Phone: Comment on above: Expected: 07/05/2024 (Approximate), Expi res: 03/05/2025 Start: 07-05-2024 End: 03-05-2025 URINALYSIS, DIPSTICK ONLY URINALYSIS, DIPSTICK ONLY Lab Routine Type 2 DM with CKD stage 3 and hypertension (HCC) Other proteinuria Expected: 07/05/2024 (Approximate), Expires: 03/05/2025 [facility] Comment on above: Expected: 07/05/2024 (Approximate), Expi res: 03/05/2025 Start: 06-27-2024 Advance Directive Discussion Advance Directive Discussion [facility] Start: 06-23-2024 Annual PCP Team Chronic Disease Visit Annual PCP Team Chronic Disease Visit [facility] Start: 06-19-2024 BP Controlled (<130/80) BP Controlled (<130/80) [facility] Start: 06-19-2024 End: 09-18-2024 Lipid 1996 panel - Serum or Plasma LIPID PANEL BASIC Lab Routine Hyperlipidemia, unspecified hyperlipidemia type Expected: 06/19/2024, Expires: 09/18/2024 [facility] Work Phone: Comment on above: Expected: 06/19/2024, Expires: Start: 06-12-2024 End: 06-12-2024 Patient encounter procedure 06/12/2024 10:00 AM EST Office Visit Internal Medicine [facility] [address] [place] [address] America Johnston 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 [address] [place] [address] Annual Medicare Wellness w/4 month follow-up [facility] Comment on above: Annual Medicare Wellness w/4 month follo w-up Start: 06-09-2024 Annual PCP Team Chronic Disease Visit Annual PCP Team Chronic Disease Visit [facility] Start: 06-09-2024 RSV Vaccine (1 - 1-dose 60+ series) RSV Vaccine (1 - 1-dose 60+ series) [facility] Comment on above: Postponed from 2007 (Declined at t his time) Start: 06-07-2024 End: 06-07-2024 Patient encounter procedure Podiatry Comment on above: 1 month follow up diabetic foot check Start: 05-17-2024 End: 05-17-2024 Patient encounter procedure 05/17/2024 2:15 PM EST Office Visit Endocrinology [address] [address] Chanda Phillips APRN.RISK AND COMPLIANCE ANALYTICS DIRECTOR [address] [address] Diabetes follow up Endocrinology Comment on above: Diabetes follow up Start: 05-09-2024 End: 05-09-2024 Patient encounter procedure 05/09/2024 10:15 AM EST Office Visit [facility] Ophthalmology [address] [place] [address] Radha Cohn MD [address] [place] [address] 4 month follow up Ophthalmology Comment on above: 4 month follow up Start: 04-30-2024 End: 04-30-2024 Patient encounter procedure 04/30/2024 10:15 AM EST Office Visit Podiatry [address] [place], [place] [id number] Marsha Eric [address] [place], [place] [id number] 1 MONTH FOLLOW UP Podiatry Comment on above: 1 MONTH FOLLOW UP Start: 04-11-2024 End: 04-11-2024 Patient encounter procedure 04/11/2024 10:00 AM EDT Office Visit Endocrinology [address] [address] Chanda Phillips APRN.RISK AND COMPLIANCE ANALYTICS DIRECTOR [address] [address] 6mo follow up Endocrinology Comment on above: 6mo follow up Start: 04-05-2024 Complete blood count Hemoglobin/Hematocrit [facility] Start: 04-05-2024 Creatinine measurement Serum Creatinine [facility] Start: 04-05-2024 Hemoglobin/Hematocrit Hemoglobin/Hematocrit [facility] Start: 04-05-2024 Serum Creatinine Serum Creatinine [facility] Start: 04-04-2024 Hemoglobin A1c measurement HbA1C [facility] Start: 03-26-2024 End: 03-26-2024 Patient encounter procedure 03/26/2024 11:00 AM EDT Office Visit Podiatry [address] [place] [address] Marsha Eric [address] [place] [address] 1 mo follow up Podiatry Comment on above: 1 mo follow up Start: 03-07-2024 End: 03-07-2024 Patient encounter procedure 03/07/2024 10:45 AM EDT Office Visit [facility] Ophthalmology [address] [place] [address] Radha Cohn MD [address] [place] [address] 4 month follow up Ophthalmology Comment on above: 4 month follow up Start: 03-05-2024 End: 06-04-2024 Lipid 1996 panel - Serum or Plasma LIPID PANEL BASIC Lab Routine Hyperlipidemia, unspecified hyperlipidemia type Expected: 03/05/2024, Expires: 06/04/2024 [facility] Work Phone: Comment on above: Expected: 03/05/2024, Expires: Start: 03-05-2024 End: 03-05-2024 Patient encounter procedure Kidney Medicine Comment on above: [address] up [address] Eulogio gannon And johana Patient confirmedCHA NGE OF APPT TIME FROM 11:20AM TO 11:00AM. AD Start: 02-26-2024 Influenza [facility] Start: 02-23-2024 End: 02-23-2024 Patient encounter procedure 02/23/2024 10:45 AM EDT Office Visit Podiatry [address] [place] [address] Marsha Eric [address] [place] [address] 1 mo follow up Podiatry Comment on above: 1 mo follow up Start: 02-14-2024 End: 02-14-2024 Patient encounter procedure 02/14/2024 10:00 AM EDT Office Visit Internal Medicine [place] [address] [place], [place] [address] Jesse Glover MD [address] [place] [address] 4 mos follow up Internal Medicine [facility] Comment on above: 4 mos follow up Start: 02-08-2024 End: 02-08-2024 Patient encounter procedure 02/08/2024 9:15 AM EDT Office Visit [facility] Ophthalmology [address] [place] [address] Radha Cohn MD [address] [place] [address] 4 month follow up Ophthalmology Comment on above: 4 month follow up Start: 01-23-2024 End: 01-23-2024 Patient encounter procedure 01/23/2024 9:15 AM EDT Office Visit Podiatry [address] [place], [place] [address] Marsha Eric [address] [place] [address] 4 week follow up diabetic foot check Podiatry Comment on above: 4 week follow up diabetic foot check Start: 01-10-2024 End: 04-10-2024 25-hydroxyvitamin D3 [Mass/volume] in Serum or Plasma VITAMIN D 25 HYDROXY Lab Routine Secondary renal hyperparathyroidism (HCC) Vitamin D deficiency Expected: 01/10/2024 (Approximate), Expires: 04/10/2024 [facility] Work Phone: Comment on above: Expected: 01/10/2024 (Approximate), Expi res: 04/10/2024 Start: 01-10-2024 End: 10-10-2024 CBC W Auto Differential panel - Blood COMPLETE BLOOD COUNT AND DIFFERENTIAL Lab Routine Anemia of renal disease Expected: 01/10/2024 (Approximate), Expires: 10/10/2024 [facility] Work Phone: Comment on above: Expected: 01/10/2024 (Approximate), Expi res: 10/10/2024 Start: 01-10-2024 End: 04-10-2024 Parathyrin.intact [Mass/volume] in Serum or Plasma PTH INTACT Lab Routine Secondary renal hyperparathyroidism (HCC) Expected: 01/10/2024 (Approximate), Expires: 04/10/2024 [facility] Work Phone: Comment on above: Expected: 01/10/2024 (Approximate), Expi res: 04/10/2024 Start: 01-10-2024 End: 10-10-2024 Protein/Creatinine [Mass Ratio] in Urine PROTEIN / CREATININE RATIO Lab Routine Type 2 diabetes mellitus with diabetic polyneuropathy, with long-term current use of insulin (HCC) CKD (chronic kidney disease) stage 4, 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) Other proteinuria Expected: 01/10/2024 (Approximate), Expires: 10/10/2024 [facility] Work Phone: Comment on above: Expected: 01/10/2024 (Approximate), Expi res: 10/10/2024 Start: 01-10-2024 End: 10-10-2024 Renal function 2000 panel - Serum or Plasma RENAL FUNCTION PANEL Lab Routine Hyperkalemia Type 2 diabetes mellitus with diabetic polyneuropathy, with long-term current use of insulin (HCC) CKD (chronic kidney disease) stage 4, 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) Expected: 01/10/2024 (Approximate), Expires: 10/10/2024 [facility] Work Phone: Comment on above: Expected: 01/10/2024 (Approximate), Expi res: 10/10/2024 Start: 01-10-2024 End: 10-10-2024 URINALYSIS, DIPSTICK ONLY URINALYSIS, DIPSTICK ONLY Lab Routine Type 2 diabetes mellitus with diabetic polyneuropathy, with long-term current use of insulin (HCC) CKD (chronic kidney disease) stage 4, 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) Other proteinuria Expected: 01/10/2024 (Approximate), Expires: 10/10/2024 [facility] Work Phone: Comment on above: Expected: 01/10/2024 (Approximate), Expi res: 10/10/2024 Start: 12-25-2023 [facility] on above: Postponed from 02/25/2023 (Declined at t his time) Start: 12-20-2023 End: 12-20-2023 Patient encounter procedure 12/20/2023 9:00 AM EDT Office Visit Podiatry [address] [place] [address] Marsha Eric [address] [place] [address] DIABETIC FOOT Podiatry Comment on above: DIABETIC FOOT Start: 12-17-2023 3 comp foot exam completed DIABETIC FOOT EXAM [facility] Start: 12-17-2023 Diabetic foot examination Diabetic Foot Exam [facility] Start: 11-22-2023 End: 11-22-2023 Patient encounter procedure 11/22/2023 8:15 AM EDT Office Visit Podiatry [address] [place] [address] Marsha Eric [address] [place] [address] DIABETIC FOOT Podiatry Comment on above: DIABETIC FOOT Start: 10-28-2023 ANNUAL PCP TEAM CHRONIC DISEASE VISIT ANNUAL PCP TEAM CHRONIC DISEASE VISIT [facility] Start: 10-28-2023 BP CONTROLLED (<130/80) BP CONTROLLED (<130/80) [facility] Start: 10-27-2023 End: 10-27-2023 Patient encounter procedure 10/27/2023 10:45 AM EDT Office Visit Podiatry [address] [place] [address] Marsha Eric [address] [place] [id number] follow up Podiatry Comment on above: follow up Start: 10-26-2023 HEMOGLOBIN/HEMATOCRIT HEMOGLOBIN/HEMATOCRIT [facility] Start: 10-26-2023 Hepatitis B screening URINE ALBUMIN:CREATININE RATIO [facility] Start: 10-26-2023 Hepatitis B surface antibody level LDL CHOLESTEROL [facility] Start: 10-26-2023 SERUM CREATININE SERUM CREATININE [facility] Start: 10-19-2023 BP CONTROLLED (<130/80) BP CONTROLLED (<130/80) [facility] Start: 10-18-2023 End: 01-17-2024 Potassium [Moles/volume] in Serum or Plasma POTASSIUM Lab Routine Hyperkalemia Expected: 10/18/2023 (Approximate), Expires: 01/17/2024 [facility] Work Phone: Comment on above: Expected: 10/18/2023 (Approximate), Expi res: 01/17/2024 Start: 10-11-2023 End: 01-10-2024 Lipid 1996 panel - Serum or Plasma LIPID PANEL BASIC Lab Routine Hyperlipidemia, unspecified hyperlipidemia type Expected: 10/11/2023, Expires: 01/10/2024 [facility] Work Phone: Comment on above: Expected: 10/11/2023, Expires: 4 Start: 08-12-2023 Hemoglobin A1c measurement HbA1C [facility] Start: 08-12-2023 Hemoglobin A1c/Hemoglobin.total in Blood HBA1C [facility] Start: 06-27-2023 Advance Directive Discussion Advance Directive Discussion [facility] Start: 06-27-2023 Behavioral Health Screening Behavioral Health Screening [facility] Start: 06-27-2023 Depression Assessment Depression Assessment [facility] Start: 05-20-2023 End: 10-27-2023 OCT MACULA CIRRUS OU (BOTH EYES) OCT MACULA CIRRUS OU (BOTH EYES) [facility] Imaging Routine Retinal edema 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) Expected: 05/20/2023, Expires: 10/27/2023 [facility] Work Phone: Comment on above: Expected: 05/20/2023, Expires: 4 Start: 05-05-2023 Glaucoma screening Dilated Retinal Exam [facility] Start: 05-05-2023 Hepatitis C antibody, confirmatory test DILATED RETINAL EXAM [facility] Start: 04-27-2023 ANNUAL PCP TEAM CHRONIC DISEASE VISIT ANNUAL PCP TEAM CHRONIC DISEASE VISIT [facility] Start: 04-27-2023 Hemoglobin A1c/Hemoglobin.total in Blood HBA1C [facility] Start: 04-26-2023 BP CONTROLLED (<130/80) BP CONTROLLED (<130/80) [facility] Start: 04-21-2023 Hepatitis C antibody, confirmatory test DILATED RETINAL EXAM [facility] Start: 04-09-2023 HEMOGLOBIN/HEMATOCRIT HEMOGLOBIN/HEMATOCRIT [facility] Start: 04-09-2023 SERUM CREATININE SERUM CREATININE [facility] Start: 04-08-2023 BP CONTROLLED (<130/80) BP CONTROLLED (<130/80) [facility] Start: 03-30-2023 End: 03-29-2024 URINALYSIS, DIPSTICK ONLY URINALYSIS, DIPSTICK ONLY Lab Routine Other proteinuria Type 2 DM with CKD stage 3 and hypertension (HCC) Expected: 03/30/2023 (Approximate), Expires: 03/29/2024 [facility] Work Phone: Comment on above: Expected: 03/30/2023 (Approximate), Expi res: 03/29/2024 Start: 03-29-2023 End: 03-29-2024 CBC W Auto Differential panel - Blood CBC + DIFF Lab Routine Anemia of renal disease Expected: 03/29/2023, Expires: 03/29/2024 [facility] Work Phone: Comment on above: Expected: 03/29/2023, Expires: 4 Start: 03-29-2023 End: 03-29-2024 Protein/Creatinine [Mass Ratio] in Urine PROTEIN CREATININE RATIO Lab Routine Other proteinuria Type 2 DM with CKD stage 3 and hypertension (HCC) Expected: 03/29/2023, Expires: 03/29/2024 [facility] Work Phone: Comment on above: Expected: 03/29/2023, Expires: Start: 03-29-2023 End: 03-29-2024 Renal function 2000 panel - Serum or Plasma RENAL FUNCTION PANEL Lab Routine Type 2 DM with CKD stage 3 and hypertension (HCC) Expected: 03/29/2023, Expires: 03/29/2024 [facility] Work Phone: Comment on above: Expected: 03/29/2023, Expires: Start: 02-25-2023 Influenza vaccination [facility] Start: 02-23-2023 Hepatitis C antibody, confirmatory test DILATED RETINAL EXAM [facility] Start: 02-10-2023 Hemoglobin A1c/Hemoglobin.total in Blood HBA1C [facility] Start: 01-14-2023 ANNUAL PCP TEAM CHRONIC DISEASE VISIT ANNUAL PCP TEAM CHRONIC DISEASE VISIT [facility] Start: 12-23-2022 Adult depression screening assessment DEPRESSION SCREENING [facility] Start: 12-23-2022 ANNUAL PCP TEAM CHRONIC DISEASE VISIT ANNUAL PCP TEAM CHRONIC DISEASE VISIT [facility] Start: 12-23-2022 BP CONTROLLED (<130/80) BP CONTROLLED (<130/80) [facility] Start: 12-15-2022 3 comp foot exam completed DIABETIC FOOT EXAM [facility] Start: 11-18-2022 BP CONTROLLED (<130/80) BP CONTROLLED (<130/80) [facility] Start: 10-25-2022 End: 12-25-2022 Comprehensive metabolic 2000 panel - Serum or Plasma COMP METABOLIC PANEL Lab Routine 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, with long-term current use of insulin (HCC) Type 2 diabetes mellitus with diabetic polyneuropathy, with long-term current use of insulin (HCC) Expected: 10/25/2022, Expires: 12/25/2022 [facility] Work Phone: Comment on above: Expected: 10/25/2022, Expires: 3 Start: 10-25-2022 End: 12-25-2022 Hemoglobin A1c in Blood HGB A1C Lab Routine 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, with long-term current use of insulin (HCC) Type 2 diabetes mellitus with diabetic polyneuropathy, with long-term current use of insulin (HCC) Expected: 10/25/2022, Expires: 12/25/2022 [facility] Work Phone: Comment on above: Expected: 10/25/2022, Expires: 3 Start: 10-25-2022 End: 12-25-2022 Lipid 1996 panel - Serum or Plasma LIPID PANEL BASIC Lab Routine 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, with long-term current use of insulin (HCC) Type 2 diabetes mellitus with diabetic polyneuropathy, with long-term current use of insulin (HCC) Expected: 10/25/2022, Expires: 12/25/2022 [facility] Work Phone: Comment on above: Expected: 10/25/2022, Expires: 3 Start: 10-21-2022 Hepatitis C antibody, confirmatory test DILATED RETINAL EXAM [facility] Start: 09-22-2022 ANNUAL PCP TEAM CHRONIC DISEASE VISIT ANNUAL PCP TEAM CHRONIC DISEASE VISIT [facility] Start: 09-22-2022 Hepatitis B screening URINE ALBUMIN:CREATININE RATIO [facility] Start: 09-22-2022 Hepatitis B surface antibody level LDL CHOLESTEROL [facility] Start: 09-22-2022 SERUM CREATININE SERUM CREATININE [facility] Start: 07-04-2022 Hemoglobin A1c/Hemoglobin.total in Blood HBA1C [facility] Start: 06-27-2022 ADVANCE DIRECTIVE DISCUSSION ADVANCE DIRECTIVE DISCUSSION [facility] Start: 06-27-2022 DEPRESSION ASSESSMENT DEPRESSION ASSESSMENT [facility] Start: 06-15-2022 SERUM CREATININE SERUM CREATININE [facility] Start: 04-27-2022 End: 06-27-2022 ALBUMIN/CREAT RATIO RND UR ALBUMIN/CREAT RATIO RND UR Lab Routine 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, with long-term current use of insulin (HCC) Type 2 diabetes mellitus with diabetic polyneuropathy, with long-term current use of insulin (HCC) Expected: 04/27/2022, Expires: 06/27/2022 [facility] Work Phone: Comment on above: Expected: 04/27/2022, Expires: 3 Start: 04-06-2022 End: 06-06-2022 25-hydroxyvitamin D3 [Mass/volume] in Serum or Plasma VITAMIN D 25 HYDROXY Lab Routine Secondary renal hyperparathyroidism (HCC) Expected: 04/06/2022, Expires: 06/06/2022 [facility] Work Phone: Comment on above: Expected: 04/06/2022, Expires: 2 Start: 04-06-2022 End: 04-06-2023 CBC W Auto Differential panel - Blood CBC + DIFF Lab Routine Anemia of renal disease Expected: 04/06/2022, Expires: 04/06/2023 [facility] Work Phone: Comment on above: Expected: 04/06/2022, Expires: 3 Start: 04-06-2022 End: 06-06-2022 Parathyrin.intact [Mass/volume] in Serum or Plasma PTH INTACT BLD Lab Routine Secondary renal hyperparathyroidism (HCC) Expected: 04/06/2022, Expires: 06/06/2022 [facility] Work Phone: Comment on above: Expected: 04/06/2022, Expires: 2 Start: 04-06-2022 End: 04-06-2023 Protein/Creatinine [Mass Ratio] in Urine PROTEIN CREATININE RATIO Lab Routine Stage 3b chronic kidney disease (HCC) Essential hypertension Other proteinuria Expected: 04/06/2022, Expires: 04/06/2023 [facility] Work Phone: Comment on above: Expected: 04/06/2022, Expires: 3 Start: 04-06-2022 End: 04-06-2023 Renal function 2000 panel - Serum or Plasma RENAL FUNCTION PANEL Lab Routine Stage 3b chronic kidney disease (HCC) Essential hypertension Expected: 04/06/2022, Expires: 04/06/2023 [facility] Work Phone: Comment on above: Expected: 04/06/2022, Expires: 3 Start: 04-06-2022 End: 04-06-2023 URINALYSIS, DIPSTICK ONLY URINALYSIS, DIPSTICK ONLY Lab Routine Stage 3b chronic kidney disease (HCC) Essential hypertension Other proteinuria Expected: 04/06/2022, Expires: 04/06/2023 [facility] Work Phone: Comment on above: Expected: 04/06/2022, Expires: 3 Start: 02-25-2022 Influenza vaccination [facility] Start: 01-05-2022 3 comp foot exam completed DIABETIC FOOT EXAM [facility] Start: 12-24-2021 Influenza vaccination INFLUENZA (#1) [facility] Comment on above: Postponed from 02/25/2021 (Declined at t his time) Start: 12-15-2021 Hemoglobin A1c/Hemoglobin.total in Blood HBA1C [facility] Start: 10-27-2021 HEMOGLOBIN/HEMATOCRIT HEMOGLOBIN/HEMATOCRIT [facility] Start: 10-16-2021 Hepatitis C antibody, confirmatory test DILATED RETINAL EXAM [facility] Start: 10-14-2021 End: 12-14-2021 PTH INTACT BLD PTH INTACT BLD Lab Routine Stage 3b chronic kidney disease (HCC) Expected: 10/14/2021, Expires: 12/14/2021 [facility] Work Phone: Comment on above: Expected: 10/14/2021, Expires: 2 Start: 10-14-2021 End: 12-14-2021 VITAMIN D 25 HYDROXY VITAMIN D 25 HYDROXY Lab Routine Stage 3b chronic kidney disease (HCC) Expected: 10/14/2021, Expires: 12/14/2021 [facility] Work Phone: Comment on above: Expected: 10/14/2021, Expires: 2 Start: 09-29-2021 End: 11-29-2021 CBC panel - Blood by Automated count CBC Lab Routine Type 2 diabetes mellitus with diabetic polyneuropathy, with long-term current use of insulin (HCC) Expected: 09/29/2021, Expires: 11/29/2021 [facility] Work Phone: Comment on above: Expected: 09/29/2021, Expires: 2 Start: 09-29-2021 End: 11-29-2021 SCHEDULE LAB TESTING SCHEDULE LAB TESTING Lab Routine Expected: 09/29/2021, Expires: 11/29/2021 [facility] Work Phone: Comment on above: Expected: 09/29/2021, Expires: 2 Start: 09-27-[address] COLONOGRAPHY [facility] Start: 09-22-2021 End: 11-22-2021 ALBUMIN/CREAT RATIO RND UR [facility] Work Phone: Comment on above: Expected: 09/22/2021, Expires: 2 Start: 09-22-2021 End: 11-22-2021 Basic metabolic 2000 panel - Serum or Plasma [facility] Work Phone: Comment on above: Expected: 09/22/2021, Expires: 2 Start: 09-22-2021 End: 11-22-2021 LIPID PANEL BASIC [facility] Work Phone: Comment on above: Expected: 09/22/2021, Expires: 2 Start: 09-05-2021 Adult depression screening assessment DEPRESSION SCREENING [facility] Start: 09-03-2021 Hepatitis B screening URINE ALBUMIN:CREATININE RATIO [facility] Start: 09-03-2021 Hepatitis B surface antibody level LDL CHOLESTEROL [facility] Start: 06-27-2021 ADVANCE DIRECTIVE DISCUSSION ADVANCE DIRECTIVE DISCUSSION [facility] Start: 06-27-2021 DEPRESSION ASSESSMENT DEPRESSION ASSESSMENT [facility] Start: 02-11-2021 COVID-19 VACCINE (3 - Booster) COVID-19 VACCINE (3 - Booster) [facility] Start: 06-04-2020 BP CONTROLLED (<130/80) BP CONTROLLED (<130/80) [facility] Start: 08-04-2019 Colonoscopy COLONOSCOPY [facility] Start: 08-04-2019 COLORECTAL CANCER SCREENING COLORECTAL CANCER SCREENING [facility] Start: 06-10-2014 SHINGRIX VACCINE (2 of 3) SHINGRIX VACCINE (2 of 3) [facility] Start: 2007 Hepatitis B Vaccine (1 of 3 - Risk 3-dose series) Hepatitis B Vaccine (1 of 3 - Risk 3-dose series) [facility] Start: 2007 RSV Vaccine (1 - 1-dose 60+ series) RSV Vaccine (1 - 1-dose 60+ series) [facility] Start: 02-07-1992 COLOGUARD (FIT-DNA) COLOGUARD (FIT-DNA) [facility] Start: 02-07-1992 FECAL OCCULT BLOOD FECAL OCCULT BLOOD [facility] Start: 02-07-1992 SIGMOIDOSCOPY SIGMOIDOSCOPY [facility] Start: 1965 Anxiety Screening Anxiety Screening [facility] Start: 1965 Depression Screening Depression Screening [facility] End: 10-14-2022 CBC panel - Blood by Automated count CBC Lab Routine Stage 3b chronic kidney disease (HCC) Every 6 months for 3 Occurrences starting 10/14/2021 until 10/14/2022 [facility] Work Phone: Comment on above: Every 6 months for 3 Occurrences startin g 10/14/2021 until 10/14/2022 End: 10-19-2023 CBC panel - Blood by Automated count CBC Lab Routine Stage 3b chronic kidney disease (HCC) Every 6 months for 3 Occurrences starting 10/18/2022 until 10/19/2023 [facility] Work Phone: Comment on above: Every 6 months for 3 Occurrences startin g 10/18/2022 until 10/19/2023 COVID & INFLUENZA A/ B & RSV NAAT, ROUTINE COVID & INFLUENZA A/B & RSV NAAT, ROUTINE Microbiology Routine Bacterial sinusitis Acute upper respiratory infection, unspecified Ordered: 06/19/2023 [facility] Work Phone: Comment on above: Ordered: 06/19/2023 Hemoglobin A1c/Hemoglobin.total in Blood HEMOGLOBIN A1C (POC) Lab Routine 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, with long-term current use of insulin (HCC) Type 2 diabetes mellitus with diabetic polyneuropathy, with long-term current use of insulin (HCC) Type 2 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 disease, with long-term current use of insulin, unspecified whether stage 3a or 3b CKD (HCC) Ordered: 10/31/2024 [facility] Work Phone: Comment on above: Ordered: 10/31/2024 Patient Education [facility] Work Phone: Patient referral [facility] Work Phone: End: 10-14-2022 Protein/Creatinine [Mass Ratio] in Urine PROTEIN CREATININE RATIO Lab Routine Stage 3b chronic kidney disease (HCC) Every 6 months for 3 Occurrences starting 10/14/2021 until 10/14/2022 [facility] Work Phone: Comment on above: Every 6 months for 3 Occurrences startin g 10/14/2021 until 10/14/2022 End: 10-19-2023 Protein/Creatinine [Mass Ratio] in Urine PROTEIN CREATININE RATIO Lab Routine Stage 3b chronic kidney disease (HCC) Every 6 months for 3 Occurrences starting 10/18/2022 until 10/19/2023 [facility] Work Phone: Comment on above: Every 6 months for 3 Occurrences startin g 10/18/2022 until 10/19/2023 End: 12-15-2022 PVR ANK PRESS VIV VAS LAB PVR ANK PRESS VIV VAS LAB Vascular Lab Routine Other diabetic neurological complication associated with type 2 diabetes mellitus (HCC) Diminished pulses in lower extremity 1 Occurrences starting 12/15/2021 until 12/15/2022 [facility] Work Phone: Comment on above: 1 Occurrences starting 12/15/2021 until 12/15/2022 End: 10-14-2022 Renal function 2000 panel - Serum or Plasma RENAL FUNCTION PANEL Lab Routine Stage 3b chronic kidney disease (HCC) Every 6 months for 3 Occurrences starting 10/14/2021 until 10/14/2022 [facility] Work Phone: Comment on above: Every 6 months for 3 Occurrences startin g 10/14/2021 until 10/14/2022 End: 10-19-2023 Renal function 2000 panel - Serum or Plasma RENAL FUNCTION PANEL Lab Routine Stage 3b chronic kidney disease (HCC) Every 6 months for 3 Occurrences starting 10/18/2022 until 10/19/2023 [facility] Work Phone: Comment on above: Every 6 months for 3 Occurrences startin g 10/18/2022 until 10/19/2023 SURGICAL PATHOLOGY [facility] Work Phone: Comment on above: Release Upon Ordering for 1 Occurrences starting 11/04/2021, 1 completed End: 10-14-2022 Urinalysis complete panel - Urine URINALYSIS, WITH MICROSCOPIC Lab Routine Stage 3b chronic kidney disease (HCC) Every 6 months for 3 Occurrences starting 10/14/2021 until 10/14/2022 [facility] Work Phone: Comment on above: Every 6 months for 3 Occurrences startin g 10/14/2021 until 10/14/2022 End: 10-19-2023 Urinalysis complete panel - Urine URINALYSIS, WITH MICROSCOPIC Lab Routine Stage 3b chronic kidney disease (HCC) Every 6 months for 3 Occurrences starting 10/18/2022 until 10/19/2023 [facility] Work Phone: Comment on above: Every 6 months for 3 Occurrences startin g 10/18/2022 until 10/19/2023 VISUAL FIELD 24-2 OU (BOTH EYES) VISUAL FIELD 24-2 OU (BOTH EYES) OPHT Imaging Routine Primary open angle glaucoma (POAG) of both eyes, severe stage 04/18/2023 3:55 PM EDT [facility] Work Phone: End: 10-25-2025 XR Foot - right AP and Lateral and oblique XR FOOT GENERAL 3V AP/LAT/OBL RIGHT Radiology Routine Posterior tibial tendon dysfunction Pes planus of both feet Other diabetic neurological complication associated with type 2 diabetes mellitus (HCC) Callus of foot 1 Occurrences starting 09/25/2024 until 10/25/2025 [facility] Work Phone: Comment on above: 1 Occurrences starting 09/25/2024 until 10/25/2025 XR Foot - right AP a nd Lateral and oblique XR FOOT GENERAL 3V AP/LAT/OBL RIGHT Radiology Routine Posterior tibial tendon dysfunction Pes planus of both feet Other diabetic neurological complication associated with type 2 diabetes mellitus (HCC) Callus of foot 09/25/2024 2:22 PM EDT [facility] End: 05-26-2023 XR FOOT GENERAL 3V AP/LAT/OBL RIGHT XR FOOT GENERAL 3V AP/LAT/OBL RIGHT Radiology Routine Skin ulcer of right great toe, limited to breakdown of skin (HCC) Skin ulcer of second toe of right foot, limited to breakdown of skin (HCC) 1 Occurrences starting 04/26/2022 until 05/26/2023 [facility] Work Phone: Comment on above: 1 Occurrences starting 04/26/2022 until 05/26/2023 End: 04-26-2022 XR FOOT GENERAL 3V AP/LAT/OBL RIGHT [facility] Work Phone: Comment on above: 1 Occurrences starting 04/26/2022 until 04/26/2022 [facility] Immunizations Immunization Date Immunization Notes Care Provider Jered de anda 06-18-2024 influenza virus vacc ine, unspecified formulation Jesse Glover MD Work Phone: [facility] 07-02-2023 influenza virus vacc ine, unspecified formulation Marsha Hernesto Work Phone: [facility] 04-27-2022 influenza, high-dose , quadrivalent vaccine (FLUZONE HIGH DOSE QUADRIVALENT) Jesse Glover MD Work Phone: [facility] 04-27-2022 influenza virus vacc ine, unspecified formulation Haydeegraham Christina 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 Work Phone: [facility] 09-11-2020 COVID-19 vaccine, fu ll dose (MODERNA) [employer] 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 Work Phone: [facility] Work Phone: 08-21-2020 COVID-19 vaccine, fu ll dose (MODERNA) [employer] 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 Work Phone: [facility] Work Phone: 06-04-2019 influenza, high dose seasonal, preservative-free [place] [employer] 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 Work Phone: [facility] 01-12-2018 tetanus toxoid, redu tamara diphtheria toxoid, and acellular pertussis vaccine, adsorbed [place] [employer] 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 Work Phone: [facility] Work Phone: 05-26-2017 influenza, high dose seasonal, preservative-free [place] [employer] 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 Work Phone: [facility] 03-16-2016 influenza, high dose seasonal, preservative-free [place] [employer] 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 Work Phone: [facility] 06-02-2015 influenza, seasonal, injectable [employer] 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 Work Phone: [facility] Work Phone: 03-10-2015 pneumococcal conjuga te vaccine, 13 valent [place] [employer] 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 Work Phone: [facility] 04-15-2014 influenza, high dose seasonal, preservative-free [place] [employer] 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 Work Phone: [facility] 04-15-2014 zoster vaccine, live [place] Old er 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 Work Phone: [facility] 03-20-2014 pneumococcal polysaccharide vaccine, 23 valent [place] [employer] 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 Work Phone: [facility] 07-14-2012 influenza virus vacc ine, unspecified formulation [employer] 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 Work Phone: [facility] Work Phone: 07-31-2007 pneumococcal polysaccharide vaccine, 23 valent [employer] 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 Work Phone: [facility] Work Phone: 07-31-2007 tetanus and diphther ia toxoids, adsorbed, preservative free, for adult use (2 Lf of tetanus toxoid and 2 Lf of diphtheria toxoid) [employer] 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 Work Phone: [facility] Work Phone: Payers Date Payer Category Payer Self-pay [id number] 2012 Private Health Insurance [id number] 2009 Unknown HOSPITAL/MEDICAL GENERIC MEDICAL GENERIC [id number] 2009-Present [phone] [address] [place] [address] Indemnity [id number] 2009 Unknown [id number] 2009 Unknown [id number] 2009 Medicare MEDICARE MEDICAR E A AND B [id number] 2009-Present [phone] [place] [address] Medicare [id number] 2009 Medicare [id number] 2009 Medicare [id number] 1945 Unknown [id number] Medicare [id number] Unknown [id number] Unknown [id number] Unknown [id number] Unknown [id number] Unknown [id number] Social History Date Type Detail Facility Start: 06-02-2017 End: 04-07-2022 Tobacco smoking status NHIS Ex-smoker [facility] History of tobacco use Cigar Smoker [facility] Start: 06-02-2017 End: 04-07-2022 Tobacco use and exposure Smokeless tobacco non-user [facility] Start: 09-22-2021 End: 2025 Alcohol intake Current drinker of alcohol (finding) [facility] Start: 08-04-2016 History SDOH Alcohol Comment rarely, 2-3 glasses red wine per month [facility] Start: 06-02-2017 End: 04-07-2022 Tobacco Comment quit 40 + years ago [facility] Start: 1945 Sex Assigned At Not on file [facility] Start: 09-12-2021 End: 05-27-2022 Exposure to SARS-CoV-2 (event) Not sure [facility] Start: 09-17-2021 End: 04-17-2022 Tobacco smoking status NHIS Unknown if ever smoked [facility] Start: 10-01-2020 Occasional [facility] Start: 10-01-2020 None [facility] Start: 10-01-2020 Spouse/ Signif icant Other [facility] Start: 10-01-2020 Non-smoker [facility] Start: 1945 Sex Assigned At Male [facility] Start: 09-20-2021 End: 09-30-2021 Exposure to SARS-CoV-2 (event) Unable to assess [facility] History of tobacco use Current smoker [facility] Start: 10-27-2022 End: 02-09-2023 History of Social function [facility] Work Phone: Start: 10-27-2022 End: 02-09-2023 Tobacco use panel [facility] Work Phone: Start: 05-28-2012 Adult Depression Screening Assessment 0 [facility] Work Phone: How often to you hav e a drink containing alcohol? Never [facility] Medical Equipment Procedure Code Equipment Code Equipment Original Text Equipment Identifier Dates Lens Iol Ultrasert 24 - [id number] Start: 11-16-2016 [id number] Start: 12-25-2020 End: 01-08-2025 Comment on above: Test blood sugar(s) 3 times daily. Dx: Type 2 DM - Uncontrolled E11.65 Insulin: Yes Use as directed 4 ti mes a day. Dx: E11.65 Pen Needle, Diabetic (1st Tier Unifine Pentips) 31 gauge x 3/16 needle Start: 04-05-2018 End: 08-23-2019 Pen Needle, Diabetic (1st Tier Unifine Pentips) 31 gauge x 3/16 needle Start: 04-05-2018 End: 08-23-2019 Pen Needle, Diabetic (1st Tier Unifine Pentips) 31 gauge x 3/16 needle Start: 04-05-2018 End: 08-23-2019 Pen Needle, Diabetic (1st Tier Unifine Pentips) 31 gauge x 3/16 needle Start: 04-05-2018 End: 08-23-2019 Functional Status Date Assessment Result Facility 09-30-2014 Are you deaf, or do you have serious difficulty hearing No 09/30/2014 9:25 AM EDT Carmen Chambers Ma [facility] 09-30-2014 Are you blind, or do you have serious difficulty seeing, even when wearing glasses No 09/30/2014 9:25 AM EDT Carmen Chambers Ma [facility] 09-30-2014 Do you have serious difficulty walking or climbing stairs No 09/30/2014 9:25 AM EDT Carmen Chambers Ma [facility] 09-30-2014 Do you have difficul ty dressing or bathing No 09/30/2014 9:25 AM EDT Carmen Chambers Ma [facility] 09-30-2014 Because of a physica l, mental, or emotional condition, do you have difficulty doing errands alone such as visiting a physician's office or shopping No 09/30/2014 9:25 AM EDT Carmen Chambers Ma [facility] Mental Status Date Assessment Result Facility 09-17-2021 Cognitive function Level Of Cons ciousness Awake;Alert;Appropriate [facility] Work Phone: 08-07-2021 Cognitive function Level Of Cons ciousness Awake;Alert;Appropriate [facility] Work Phone: 09-30-2014 Because of a physica l, mental, or emotional condition, do you have serious difficulty concentrating, remembering, or making decisions No 09/30/2014 9:25 AM EDT Carmen Chambers Ma [facility] Clinical Notes 05-26-2017 to 04-23-2025 Telephone Encounter - Tori Damian RN - 03/08/2025 2:10 PM EDTTelephone Encounter - Tori Damian RN - 03/08/2025 2:10 PM EDTTelephone Encounter - Tori Damian RN - 03/08/2025 9:28 AM EDT Note Date & Type Note Facility 04-23-2025 Note [facility] 04-23-2025 Note [facility] 04-23-2025 Note [facility] 03-26-2025 Note [facility] 03-26-2025 Note HNO ID: [id number] Author: HILLARY ARZATE MA Service: ? Author Type: [place] Type: Progress Notes Filed: 03/26/2025 16:43 Note Text: AMB ROOMING INTAKE FLOWSHEET DATA [facility] 03-21-2025 Note [facility] 03-08-2025 Telephone encounter Note patient scheduled with Haydee 03/21/25 [facility] 03-08-2025 Miscellaneous Notes patient scheduled with Haydee 03/21/25 patient has a follow up on 03/28/25 with Kidney med. message routed to Haydee to see if he needs a sooner appt please advise, thank you If patient feels it is related to medication he needs follow up with Nephrology not Primary Care as nephrology was prescribing the medication. ----- Message from Damien Hardy RN sent at 03/07/2025 6:20 PM EDT ----- Pt called and is notified of providers message and instructions. Pt voices understanding. He states he looked up the Veltassa and the SE were what he was experiencing the swelling in the feet and the malfunctioning walking. He states it started 3-4 months ago when he started taking that medication and his feet started getting more numb. Pt reports he would take that medication by itself, he would wait 4 hours from other medications aside from his insulin. Pt reports he would always feel bad after taking it, he would have no energy. Pt reports he stopped taking it about a week ago, and his foot is coming down and he is walking better. I didn't cancel Pt's appointment since he was having such troubles with this medication. Pt states he thinks it is still in trial phase and he isn't sure about staying on it. Damien Hardy RN Left message for patient to return call to office Adalgisa Moore MA Please let patient know that after discussing symptoms with Nephrology it was decided to increase his furosemide and repeat labs in 1 week to check potassium. Patient should take 40mg in am and 20mg at lunch. Also please verify patient is taking Veltassa and is taking it in the afternoon with no other medications. He should keep his appt with Nephrology in March. No follow up with Primary Care needed at this time, unless other concerns appt for 03/11 may be cancelled. Sherwin hayes needs to know what the veltessa is for please advise documented in this encounter [facility] 03-08-2025 Telephone encounter Note patient has a follow up on 03/28/25 with Kidney med. message routed to Haydee to see if he needs a sooner appt please advise, thank you [facility] 03-07-2025 Telephone encounter Note If patient feels it is related to medication he needs follow up with Nephrology not Primary Care as nephrology was prescribing the medication. [facility] 03-07-2025 Telephone encounter Note ----- Message from Damien Hardy RN sent at 03/07/2025 6:20 PM EDT ----- [facility] 03-07-2025 Telephone encounter Note Pt called and is notified of providers message and instructions. Pt voices understanding. He states he looked up the Veltassa and the SE were what he was experiencing the swelling in the feet and the malfunctioning walking. He states it started 3-4 months ago when he started taking that medication and his feet started getting more numb. Pt reports he would take that medication by itself, he would wait 4 hours from other medications aside from his insulin. Pt reports he would always feel bad after taking it, he would have no energy. Pt reports he stopped taking it about a week ago, and his foot is coming down and he is walking better. I didn't cancel Pt's appointment since he was having such troubles with this medication. Pt states he thinks it is still in trial phase and he isn't sure about staying on it. Damien Hardy RN [facility] 03-07-2025 Telephone encounter Note Left message for patient to return call to office Adalgisa Moore MA [facility] 03-07-2025 Telephone encounter Note Please let patient know that after discussing symptoms with Nephrology it was decided to increase his furosemide and repeat labs in 1 week to check potassium. Patient should take 40mg in am and 20mg at lunch. Also please verify patient is taking Veltassa and is taking it in the afternoon with no other medications. He should keep his appt with Nephrology in March. No follow up with Primary Care needed at this time, unless other concerns appt for 03/11 may be cancelled. [facility] 03-07-2025 Telephone encounter Note Sherwin hayes needs to know what the veltessa is for please advise [facility] 03-07-2025 Telephone encounter Note Called and spoke with patient regarding appointment today. Advised patient that Sherwin is waiting to hear back from nephrology regarding labs and medication side effect. Patient rescheduled his appointment with Sherwin for Tuesday to give time for nephology to get back to provider. Pham Scherer RN [facility] 03-07-2025 Miscellaneous Notes Called and spoke with patient regarding appointment today. Advised patient that Sherwin is waiting to hear back from nephrology regarding labs and medication side effect. Patient rescheduled his appointment with Sherwin for Tuesday to give time for nephology to get back to provider. Pham Scherer RN Patient calls and states that his feet as still swollen and that he needs to do something before it gets bad again. Patient is requesting another appointment tomorrow. Patient scheduled with Sherwin tomorrow 03/07/2025. Pham Scherer RN Patient calling asking for his lab results, if any changes? 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 Please advise Latest Ref Rng 03/05/2025 Glucose 74 - 99 mg/dL 179 (H) BUN 9 - 24 mg/dL 28 (H) Creatinine 0.73 - 1.22 mg/dL 2.32 (H) Sodium 136 - 144 mmol/L 139 Potassium 3.7 - 5.1 mmol/L 5.4 (H) Chloride 98 - 107 mmol/L 108 (H) CO2 22 - 30 mmol/L 20 (L) Anion Gap 8 - 15 mmol/L 11 Calcium 8.5 - 10.2 mg/dL 9.6 eGFR >=60 mL/min/1.73m 28 (L) Legend: (H) High (L) Low documented in this encounter [facility] 03-06-2025 Telephone encounter Note Patient calls and states that his feet as still swollen and that he needs to do something before it gets bad again. Patient is requesting another appointment tomorrow. Patient scheduled with Sherwin tomorrow 03/07/2025. Pham Scherer RN [facility] 03-06-2025 Telephone encounter Note Patient calling asking for his lab results, if any changes? 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 Please advise Latest Ref Rng 03/05/2025 Glucose 74 - 99 mg/dL 179 (H) BUN 9 - 24 mg/dL 28 (H) Creatinine 0.73 - 1.22 mg/dL 2.32 (H) Sodium 136 - 144 mmol/L 139 Potassium 3.7 - 5.1 mmol/L 5.4 (H) Chloride 98 - 107 mmol/L 108 (H) CO2 22 - 30 mmol/L 20 (L) Anion Gap 8 - 15 mmol/L 11 Calcium 8.5 - 10.2 mg/dL 9.6 eGFR >=60 mL/min/1.73m 28 (L) Legend: (H) High (L) Low [facility] 03-05-2025 Note [facility] 03-05-2025 History of Present illness Narrative Chief Complaint Patient presents with: Foot Swelling: X 1 week HPI Esvin West Sr. is a 80 year old male who presents here today for Above Complaints.. Patient presents for bilateral swelling in feet since Tuesday. Left is worse than right. Patient was started on veltassa 2 months ago for CKD. Past medical history, appointments, medications, allergies reviewed. Previous Medical History PAST MEDICAL HISTORY Diagnosis Date Anemia in stage 3 chronic kidney disease ([facility]) Background diabetic retinopathy(362.01) 09/18/2008 [facility] eye. 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 Tubular adenoma of colon 08/10/2016 Type 2 diabetes mellitus with stage 4 chronic kidney disease, with long-term current use of insulin ([facility]) 11/26/2024 Type II or unspecified type diabetes mellitus with ophthalmic manifestations, uncontrolled(250.52) 09/18/2008 [facility] Unspecified asthma(493.90) Vitreous hemorrhage ([facility]) 04/19/2018 Added automatically from request for surgery [id number] Vitreous hemorrhage of left eye ([facility]) Previous Surgical History PAST SURGICAL HISTORY Procedure Laterality Date AVASTIN [...] 11/16/2016 Cataract Extraction with PC IOL OS Family History FAMILY HISTORY Problem Relation Age of Onset Breast Cancer Mother at age 55 COPD Father Black lung Breast Cancer Sister at age 54 Diabetes Brother No Ocular Disease No Family History nothing known of Patient Allergies ALLERGIES Allergen Reactions Cortisone Other: See Comments [place] real hot, as if someone threw boiling water on him Latex Other: See Comments Zestril [Lisinopril] Intolerance ARF, hypokalemia Current Medications Current Outpatient Medications on File Prior to Visit Medication Sig Insulin [place], Disposable, (1ST TIER UNIFINE PENTIPS) 31 gauge x 3/16 Use as directed 4 per day. Dx: E11.65 NIFEdipine ER (PROCARDIA XL) 30 mg 24 hr tablet Take 1 tablet by mouth every evening. Please take in the pm in addition to the 90mg in the morning for a total of 120mg daily gabapentin (NEURONTIN) 300 mg capsule Take 1 capsule by mouth three times a day for 180 days. rosuvastatin (CRESTOR) 40 mg tablet Take 1 tablet by mouth daily at bedtime. brimonidine (ALPHAGAN) 0.2 % ophthalmic solution Use 1 drop in both eyes three times a day. empagliflozin (JARDIANCE) 25 mg tablet Take 1 tablet by mouth daily with breakfast. furosemide (LASIX) 40 mg tablet Take 1 tablet by mouth once daily. insulin glargine (LANTUS SOLOSTAR U-100 INSULIN) 100 unit/mL (3 mL) Inject subcutaneously 23 units daily in the AM insulin lispro (HUMALOG KWIKPEN INSULIN) 100 unit/mL Inject subcutaneously 2 units breakfast, 3 units lunch, 3 units dinner plus SS up to 20 units daily meclizine (ANTIVERT) 25 mg tab Take 1 tablet by mouth three times a day as needed. flash glucose sensor (FREESTYLE DAIJA 2 SENSOR) kit Use one sensor every 14 days, IDDM, E11.42 NIFEdipine ER (PROCARDIA XL) 90 mg 24 hr tablet Take 1 tablet by mouth once daily. dorzolamide-timolol (COSOPT) 22.3-6.8 mg/mL ophthalmic solution Use 1 Drop in both eyes two times a day. latanoprost (XALATAN) 0.005 % ophthalmic solution INSTILL 1 DROP IN BOTH EYES DAILY AT BEDTIME Blood Pressure Monitor (BLOOD PRESSURE KIT) 1 Each by VIA DEVICE route once daily. Please check your blood pressure once per day so we can see if we need to increase medications flash glucose scanning reader (FREESTYLE DAIJA 2 READER) Use continuously to monitor glucose. Dx: Type 2 DM - Uncontrolled E11.65 Insulin: Yes blood sugar diagnostic (BLOOD GLUCOSE TEST) test strip Test blood sugar(s) 3 times daily. Dx: Type 2 DM - Uncontrolled E11.65 Insulin: Yes Lancets lancets Test blood sugar(s) 3 times daily. Dx: Type 2 DM - Uncontrolled E11.65 Insulin: Yes polyethylene glycol 3350 (MIRALAX) 17 gram/dose powder Take 17 g by mouth every other day. cholecalciferol (VITAMIN D) 1,000 unit tab tablet Take 1 tablet by mouth once daily. cyanocobalamin (VITAMIN B-12) 1,000 mcg tab Take 1 tablet by mouth once daily. aspirin(ECOTRIN LOW STRENGTH 81 MG TAB) Take by mouth. No current facility-administered medications on file prior to visit. Social History SOCIAL HISTORY[1] Review of Symptoms REVIEW OF SYSTEMS SEE HPI EXAM: BP 149/61 Pulse 76 Wt 90 kg (198 lb 6.6 oz) BMI 29.52 kg/m General Appearance: Well appearing, alert, in no acute distress, well-hydrated, well nourished.. Lungs: Lungs clear to auscultation. No wheezing, rhonchi, rales.. Heart: RRR without murmur, gallop, or rubs. No ectopy. Extremities: Pulses: 2+, Edema: 1+ pitting to left foot, nonpitting to right. Health Maintenance List Advance Directive Discussion due on 06/27/2024 Influenza Vaccine(1) due on 02/25/2025 HbA1C due on 05/03/2025 LDL Cholesterol due on 06/11/2025 Depression Screening due on 06/12/2025 Anxiety Screening due on 06/12/2025 Medicare Annual Wellness Visit due on 06/12/2025 Dilated Retinal Exam due on 09/06/2025 Hemoglobin/Hematocrit due on 11/22/2025 Diabetic Foot Exam due on 12/18/2025 Annual PCP Team Chronic Disease Visit due on 01/07/2026 Serum Creatinine due on 02/19/2026 DTaP,Tdap,Td Vaccine(2 - Td or Tdap) due on 01/13/2028 RSV Vaccine Completed Hepatitis C Screening Completed Pneumococcal Vaccine: 50+ Completed Colorectal Cancer Screening Discontinued Shingrix Vaccine Discontinued ASSESSMENT/PLAN: 1. Edema of both lower legs - ICD9: 782.3, ICD10: R60.0 - BASIC METABOLIC PANEL Sherwin Hayes APRN.RISK AND COMPLIANCE ANALYTICS DIRECTOR [1] Social History Tobacco Use Smoking status: Former Types: Cigars Smokeless tobacco: Never Tobacco comments: quit 40 + years ago Vaping Use Vaping status: Never Used Substance Use Topics Alcohol use: Yes Comment: rarely, 2-3 glasses red wine per month Drug use: No documented in this encounter [facility] 03-05-2025 Telephone encounter Note Reason for Conversation bilateral feet swelling Background Patient calls and states that bilateral feet have been swollen since Tuesday. Patient denies redness and pain. Patient states that it feels like he is walking on a sponge. Disposition SEE PCP WITHIN 3 DAYS- Patient scheduled to see Sherwin Hayes today 03/05/2025 Reason for Disposition [1] MILD swelling of both ankles (i.e., pedal edema) AND [2] new-onset or getting worse 1. ONSET: Patient reports that he noticed it on Tuesday morning when he woke up. Patient states that he is walking on them if feels like he is walking on a sponge. Patient states that feet feel tight. 2. LOCATION: Bilateral Feet 3. SEVERITY: Mild Edema; States that feet are really tight. 4. REDNESS: Denies 5. PAIN: Denies Pain to touch 6. FEVER: Denies Fever 7. CAUSE: Unsure 8. MEDICAL HISTORY: Kidney disease 9. RECURRENT SYMPTOM: Yes, it has been awhile 10. OTHER SYMPTOMS: Denies other symptoms No Additional Information on file. Protocols Used Leg Swelling and [id number] [facility] 03-05-2025 Miscellaneous Notes Reason for Conversation bilateral feet swelling Background Patient calls and states that bilateral feet have been swollen since Tuesday. Patient denies redness and pain. Patient states that it feels like he is walking on a sponge. Disposition SEE PCP WITHIN 3 DAYS- Patient scheduled to see Sherwin Hayes today 03/05/2025 Reason for Disposition [1] MILD swelling of both ankles (i.e., pedal edema) AND [2] new-onset or getting worse 1. ONSET: Patient reports that he noticed it on Tuesday morning when he woke up. Patient states that he is walking on them if feels like he is walking on a sponge. Patient states that feet feel tight. 2. LOCATION: Bilateral Feet 3. SEVERITY: Mild Edema; States that feet are really tight. 4. REDNESS: Denies 5. PAIN: Denies Pain to touch 6. FEVER: Denies Fever 7. CAUSE: Unsure 8. MEDICAL HISTORY: Kidney disease 9. RECURRENT SYMPTOM: Yes, it has been awhile 10. OTHER SYMPTOMS: Denies other symptoms No Additional Information on file. Protocols Used Leg Swelling and [id number] documented in this encounter [facility] 02-26-2025 Telephone encounter Note Patient notified about medication questions. Patient verbalizes understanding. Pham Scherer RN [facility] 02-26-2025 Miscellaneous Notes Patient notified about medication questions. Patient verbalizes understanding. Pham Scherer RN Attempted to reach patient. No answer. VM left for pt to call back to discuss note below. Of review, it appears pt's pravastatin was discontinued and rosuvastatin was started on 03/05/[address] Glover due to his cholesterol not coming down. Pt should still be taking rosuvastatin. Pt's losartan was stopped on 12/06/24 by Nephrology and changed to Valtassa due to hyperkalemia. He sees Nephrology again on 03/28. Varsha Chester RN Triage Nurse to reach out to Patient. Roma Hawkins LPN Patient presented at [facility] [employer] needing to know why Losartan was stopped as well pravastatin and rosuvastatin. Patient is stating insurance also needs to know. He has concerns about costs of medications as he can get these medications for free until March. Please advise. Pham Juarez documented in this encounter [facility] 02-26-2025 Telephone encounter Note Patient notified of results and provider's instructions. Patient verbalizes understanding. Pham Scherer RN [facility] 02-26-2025 Miscellaneous Notes Patient notified of results and provider's instructions. Patient verbalizes understanding. Pham Scherer RN Left message for patient to call office back Janene Solorio MA - His potassium and magnesium are elevated without change. - He should contact his kidney specialist if increasing Veltassa 1 packet daily is recommended. The prescription is from nephrology. Patient calling and asking about lab results. Patient reports that he has been taking Veltassa and is asking if medication is working? Latest Ref Rng 02/19/2025 Glucose 74 - 99 mg/dL 203 (H) BUN 9 - 24 mg/dL 34 (H) Creatinine 0.73 - 1.22 mg/dL 2.23 (H) Sodium 136 - 144 mmol/L 137 Potassium 3.7 - 5.1 mmol/L 5.4 (H) Chloride 98 - 107 mmol/L 106 CO2 22 - 30 mmol/L 21 (L) Anion Gap 8 - 15 mmol/L 10 Calcium 8.5 - 10.2 mg/dL 9.5 eGFR >=60 mL/min/1.73m 29 (L) Latest Ref Rng 02/19/2025 Magnesium 1.7 - 2.3 mg/dL 2.4 (H) Please review and advise, Pham Scherer RN documented in this encounter [facility] 02-26-2025 Telephone encounter Note Attempted to reach patient. No answer. VM left for pt to call back to discuss note below. Of review, it appears pt's pravastatin was discontinued and rosuvastatin was started on 03/05/[address] Glover due to his cholesterol not coming down. Pt should still be taking rosuvastatin. Pt's losartan was stopped on 12/06/24 by Nephrology and changed to Valtassa due to hyperkalemia. He sees Nephrology again on 03/28. Varsha Chester RN [facility] 02-26-2025 Telephone encounter Note Triage Nurse to reach out to Patient. Roma Hawkins LPN [facility] 02-26-2025 Telephone encounter Note Patient presented at [facility] needing to know why Losartan was stopped as well pravastatin and rosuvastatin. Patient is stating insurance also needs to know. He has concerns about costs of medications as he can get these medications for free until March. Please advise. Pham Juarez [facility] 02-26-2025 Telephone encounter Note Left message for patient to call office back Janene Solorio MA [facility] 02-22-2025 Telephone encounter Note - His potassium and magnesium are elevated without change. - He should contact his kidney specialist if increasing Veltassa 1 packet daily is recommended. The prescription is from nephrology. [facility] 02-22-2025 Telephone encounter Note Patient calling and asking about lab results. Patient reports that he has been taking Veltassa and is asking if medication is working? Latest Ref Rng 02/19/2025 Glucose 74 - 99 mg/dL 203 (H) BUN 9 - 24 mg/dL 34 (H) Creatinine 0.73 - 1.22 mg/dL 2.23 (H) Sodium 136 - 144 mmol/L 137 Potassium 3.7 - 5.1 mmol/L 5.4 (H) Chloride 98 - 107 mmol/L 106 CO2 22 - 30 mmol/L 21 (L) Anion Gap 8 - 15 mmol/L 10 Calcium 8.5 - 10.2 mg/dL 9.5 eGFR >=60 mL/min/1.73m 29 (L) Latest Ref Rng 02/19/2025 Magnesium 1.7 - 2.3 mg/dL 2.4 (H) Please review and advise, Pham Scherer RN [facility] 02-19-2025 Telephone encounter Note ASSESSMENT/PLAN: 1. Benign paroxysmal positional vertigo, unspecified laterality - ICD9: 386.11, ICD10: H81.10 - CONSULT TO PHYSICAL THERAPY Jesse Glover MD [facility] 02-19-2025 Miscellaneous Notes ASSESSMENT/PLAN: 1. Benign paroxysmal positional vertigo, unspecified laterality - ICD9: 386.11, ICD10: H81.10 - CONSULT TO PHYSICAL THERAPY Jesse Glover MD Patient calling he was asking for an order for Physical Therapy to help with his vertigo. Patient said he has vertigo at times. He was talking to the person in PT earlier today. Was told to call his PC and ask for an order. Did not pend Vestibular PT order since gives several different things to choose from. Please advise documented in this encounter [facility] 02-19-2025 Telephone encounter Note Patient calling he was asking for an order for Physical Therapy to help with his vertigo. Patient said he has vertigo at times. He was talking to the person in PT earlier today. Was told to call his PC and ask for an order. Did not pend Vestibular PT order since gives several different things to choose from. Please advise [facility] 02-19-2025 Note [facility] 02-19-2025 History of Present illness Narrative Episode Visit Count: 4 Therapist That Will Accept/Oversee The Plan Of Care: Inocencio Reynolds Start of Care Date: 01/02/25 Onset Date: 12/03/24 Plan of Care Certification Date: 01/02/25 Next Certification Due Date: 03/05/25 [facility]TS THERAPY PHYSICAL THERAPY DISCONTINUANCE OF CARE PLAN OF CARE UPDATE: Assessment: Esvin West Sr. is discontinued from Physical Therapy services due to maximal benefit.. Patient was seen for 4 visits from Start of Care Date: 01/02/25 to 02/19/2025 and treatment included: Therapeutic exercise and Manual therapy. Goals updated on 02/19/2025. Goals for Episode of Care: established 01/02/25 Patient will demonstrate independence in HEP. Met Patient will improve core/trunk strength to 4+/5 to improve tolerance for standing ADLs and decrease pain. Met SUBJECTIVE: Patient notes that he does not have any of the pain he had since starting PT. He is compliant with his HEP and feels he can self manage at this point. He feels no restrictions due to the pain he came in for, but he is interested in getting his vertigo evaluated. Functional Limitations: nothing Pain: Pain Pain Level: 0 Pain Location: Hip - Right OBJECTIVE MEASURES WITH LEVEL OF FUNCTION: LE Strength Trunk Strength: 4+/5 TREATMENT: Therapeutic Exercise: 1: Objective measures obtained 2: Reviewed HEP and discussed importance of continued compliance, discussed what compliance meant Skilled Intervention: Patient was educated in proper exercise technique and purpose for exercises. Skilled judgment was used in selection of appropriate interventions. Provided written instruction for home exercise program to facilitate proper performance and compliance. Correct performance of therapeutic exercises was facilitated with verbal, visual, and tactile cuing. Billing Therapeutic Exercise Treatment Minutes: 26 Skilled Treatment Time Minutes (timed and untimed codes): 26 Total Session Time (minutes): 26 Session Start Time : 1312 Session Stop Time : 1338 Inocencio Reynolds PT documented in this encounter [facility] 02-13-2025 Telephone encounter Note Patient has been identified by name and date of : yes Patient phones for refill(s): Requested Prescriptions Pending Prescriptions Disp Refills promethazine (PHENERGAN) 25 mg tablet 20 tablet 0 Sig: Take 1 tablet by mouth every 6 hours as needed for nausea/vomiting for up to 7 days. Date of last office visit in primary care: 01/07/2025 Date of next office visit in primary care: 06/24/2025 Please advise. Thank you. Janene Solorio MA. [facility] 02-13-2025 Miscellaneous Notes Patient has been identified by name and date of : yes Patient phones for refill(s): Requested Prescriptions Pending Prescriptions Disp Refills promethazine (PHENERGAN) 25 mg tablet 20 tablet 0 Sig: Take 1 tablet by mouth every 6 hours as needed for nausea/vomiting for up to 7 days. Date of last office visit in primary care: 01/07/2025 Date of next office visit in primary care: 06/24/2025 Please advise. Thank you. Janene Solorio MA. Prescription Refill Information The patient has been identified by name and date of : Yes Caregiver verified no other encounters exist for this prescription request: Yes Caregiver confirmed with patient/requestor that no other refills are due, in the near future, with this provider at this time: Yes The last office visit in the department: 01-07-25 Does the patient have a future office visit with this provider/department: Yes promethazine (PHENERGAN) 25 mg tablet 20 tablet 0 10/15/2024 10/22/2024 Sig: Take 1 tablet by mouth every 6 hours as needed for nausea/vomiting for up to 7 days. Sent to pharmacy as: promethazine (PHENERGAN) 25 mg tablet Class: Normal Pharmacy has been updated in chart [facility] # [id number] Willa Patel [facility] February 13, 2025 11:16 AM documented in this encounter [facility] 02-13-2025 Telephone encounter Note Prescription Refill Information The patient has been identified by name and date of : Yes Caregiver verified no other encounters exist for this prescription request: Yes Caregiver confirmed with patient/requestor that no other refills are due, in the near future, with this provider at this time: Yes The last office visit in the department: 01-07-25 Does the patient have a future office visit with this provider/department: Yes promethazine (PHENERGAN) 25 mg tablet 20 tablet 0 10/15/2024 10/22/2024 Sig: Take 1 tablet by mouth every 6 hours as needed for nausea/vomiting for up to 7 days. Sent to pharmacy as: promethazine (PHENERGAN) 25 mg tablet Class: Normal Pharmacy has been updated in chart [facility] # [id number] Willa Peña [facility] February 13, 2025 11:16 AM [facility] Work Phone: 2025 Note [facility] 2025 History of Present illness Narrative Assessment and Plan 1. Primary open angle [...] possible if increased floaters, flashes, or shadows. -elevated intraocular pressure again today - good today -Cosopt twice daily both eyes -latanoprost at bedtime in both eyes -start brimonidine three times a day both eyes - using??? -continue follow-up Dr. Finnegan as scheduled for retina - has a significant floater which has been stable -reports doing orta visual field (HVF) elsewhere and not interested in doing it in [place] in 2-3 months OCT nerve both eyes / sooner as [...] all of its relevant components. Radha Cohn MD documented in this encounter [facility] 02-05-2025 Note [facility] 02-05-2025 History of Present illness Narrative Episode Visit Count: 3 Therapist That Will Accept/Oversee The Plan Of Care: Inocencio Rodolfo Start of Care Date: 01/02/25 Onset Date: 12/03/24 Plan of Care Certification Date: 01/02/25 Next Certification Due Date: 03/05/25 Patient Identified by Name and Date of : Yes REHABILITATION AND SPORTS THERAPY PHYSICAL THERAPY TREATMENT NOTE ASSESSMENT: Esvin West Sr. tolerated the session with fatigue and expected muscle soreness. He demonstrated difficulty with technique with PPT. The patient will continue to benefit from ongoing skilled physical therapy to progress toward set goals. PLAN FOR NEXT VISIT: Add in more core strengthening in neutral spine and give for HEP. SUBJECTIVE: Pt reports he is a little better. Pain comes and goes. Moving around feels better, prolonged sitting makes symptoms worse. Pt feels that traction helped last session. Pain: Pain Pain Level: 0 Pain Location: Hip - Right OBJECTIVE MEASURES WITH LEVEL OF FUNCTION: Limited LTR to the L compared to the R. TREATMENT: Therapeutic Exercise: 1: Seated lumbar flexion roll outs on 85 cm physioball 3x10 2: SKC 3x30 sec B 3: DKC 3x30 sec 4: Supine PPT 3x10, 3-5 sec holds 5: LTR 2x10 B Skilled Intervention: Patient was educated in proper exercise technique and purpose for exercises. Skilled judgment was used in selection of appropriate interventions. Correct performance of therapeutic exercises was facilitated with verbal and visual cuing. Manual Therapy: 1: Manual lumbar belt traction x15 min with feet elevated on stool with caudal pull to tolerance. PT's symptoms monitored throughout. Skilled Intervention: Manual skills to improve joint mobility, ROM, and decrease pain. Utilized anatomy knowledge of the clinician, and assessment of patient's response to intervention. Billing Therapeutic Exercise Treatment Minutes: 24 Manual TherapyTreatment Minutes: 15 Skilled Treatment Time Minutes (timed and untimed codes): 39 Total Session Time (minutes): 39 Session Start Time : 1346 Session Stop Time : 1425 YINKA Landa PT documented in this encounter [facility] 01-21-2025 Note [facility] 01-21-2025 History of Present illness Narrative FOLLOW UP PODIATRIC OFFICE VISIT Chief Complaint: This 79 year old who presents for follow up:callus of right foot, primarily to the right hallux Patient presents to clinic for follow-up callus of right hallux Has been using AFO and this has helped to reduce pressure on the great toe. Had to take his afo in to get modified because it was rubbing on the midfoot Overall, doing well PAIN EVALUATION No data found in the last 1 encounters. Hemoglobin A1C (POCT) Date Value Ref Range Status 10/31/2024 6.4 (A) 4.3 - 5.6 % Final Comment: Location:[facility], [address] [place], [address] Point of care (POC) Hemoglobin A1c (HGBA1C) [...] specific diabetes management situations: The POC device barometers calibrator provides a normal range of 4.2% to 6.5% for the HGBA1C POC test. However, the [place] [employer] guidelines indicate that patients with [...] kidney disease (HCC) Background diabetic retinopathy(362.01) 09/18/2008 [facility]. 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 Tubular adenoma of colon 08/10/2016 Type 2 diabetes mellitus with stage 4 chronic kidney disease, with long-term current use of insulin ([facility]) 11/26/2024 Type II or unspecified type diabetes mellitus with ophthalmic manifestations, uncontrolled(250.52) 09/18/2008 [facility] Unspecified asthma(493.90) Vitreous hemorrhage (HCC) 04/19/2018 Added automatically from request for surgery [id number] Vitreous hemorrhage of left eye (HCC) Current Outpatient Medications Medication Sig Insulin [place], Disposable, (1ST TIER UNIFINE PENTIPS) 31 gauge x 3/16 Use as directed 4 per day. Dx: E11.65 NIFEdipine ER (PROCARDIA XL) 30 mg 24 hr tablet Take 1 tablet by mouth every evening. Please take in the pm in addition to the 90mg in the morning for a total of 120mg daily gabapentin (NEURONTIN) 300 mg capsule Take 1 capsule by mouth three times a day for 180 days. rosuvastatin (CRESTOR) 40 mg tablet Take 1 tablet by mouth daily at bedtime. patiromer calcium sorbitex (VELTASSA) 8.4 gram pwpk Take 1 packet by mouth every Tuesday, Tuesday, and Tuesday. brimonidine (ALPHAGAN) 0.2 % ophthalmic solution Use 1 drop in both eyes three times a day. empagliflozin (JARDIANCE) 25 mg tablet Take 1 tablet by mouth daily with breakfast. furosemide (LASIX) 40 mg tablet Take 1 tablet by mouth once daily. insulin glargine (LANTUS SOLOSTAR U-100 INSULIN) 100 unit/mL (3 mL) Inject subcutaneously 23 units daily in the AM insulin lispro (HUMALOG KWIKPEN INSULIN) 100 unit/mL Inject subcutaneously 2 units breakfast, 3 units lunch, 3 units dinner plus SS up to 20 units daily meclizine (ANTIVERT) 25 mg tab Take 1 tablet by mouth three times a day as needed. flash glucose sensor (FREESTYLE DAIJA 2 SENSOR) kit Use one sensor every 14 days, IDDM, E11.42 NIFEdipine ER (PROCARDIA XL) 90 mg 24 hr tablet Take 1 tablet by mouth once daily. dorzolamide-timolol (COSOPT) 22.3-6.8 mg/mL ophthalmic solution Use 1 Drop in both eyes two times a day. latanoprost (XALATAN) 0.005 % ophthalmic solution INSTILL 1 DROP IN BOTH EYES DAILY AT BEDTIME Blood Pressure Monitor (BLOOD PRESSURE KIT) 1 Each by VIA DEVICE route once daily. Please check your blood pressure once per day so we can see if we need to increase medications flash glucose scanning reader (FREESTYLE DAIJA 2 READER) Use continuously to monitor glucose. Dx: Type 2 DM - Uncontrolled E11. Insulin: Yes blood sugar diagnostic (BLOOD GLUCOSE TEST) test strip Test blood sugar(s) 3 times daily. Dx: Type 2 DM - Uncontrolled E11.65 Insulin: Yes Lancets lancets Test blood sugar(s) 3 times daily. Dx: Type 2 DM - Uncontrolled E11.65 Insulin: Yes polyethylene glycol 3350 (MIRALAX) 17 gram/dose powder Take 17 g by mouth every other day. cholecalciferol (VITAMIN D) 1,000 unit tab tablet Take 1 tablet by mouth once daily. cyanocobalamin (VITAMIN B-12) 1,000 mcg tab Take 1 tablet by mouth once daily. aspirin(ECOTRIN LOW STRENGTH 81 MG TAB) Take by mouth. No current facility-administered medications for this visit. ALLERGIES Allergen Reactions Cortisone Other: See Comments [place] real hot, as if someone threw boiling water on him Latex Other: See Comments Zestril [Lisinopril] Intolerance ARF, hypokalemia PAST SURGICAL [...] OBJECTIVE: Constitutional: Pt is a well developed 79 year old male who is alert, oriented, cooperative and in no apparent distress. Eyes: Following during examination. No redness or drainage. Respiratory: RR normal and nonlabored. Even breathing. No evidence of distress. Psychology: Patient is engaged during conversation. Normal affect and mood. Does not appear depressed or anxious. NVSI unchanged from previous visit. Dermatological: Superficial, preulcerative callus to right hallux distal phalanx Hyperkeratotic appearance of right plantar midfoot, along TN joint No ulceration noted b/l Healed ulceration of left 3rd toe Musculoskeletal/Orthopaedic: Patient has no pain to palpation of b/l feet Flatfoot is noted b/l R>L ASSESSMENT: (M76.829) Posterior tibial tendon dysfunction (primary encounter diagnosis) (L84) Callus of foot (E11.49) Other diabetic neurological complication associated with type 2 diabetes mellitus (HCC) PLAN: Discussed flatfoot as etiology of increaed pressure on right hallux leading to callus Callus is minimal today, likely due to the use of afo. He will continue Callus was reduced to midfoot and hallux with dremmel Continue with inserts I will have him follow-up every 4-5 weeks for any callus debridement Emphasized the importance of avoiding barefoot walking, wearing good shoes and inspection of feet. Marsha Eric DPM AMB ROOMING INTAKE FLOWSHEET DATA Patient presents with: Left Foot - Established Patient, Follow Up, Callous Right Foot - Established Patient, Follow Up, Callous Ledy Campbell LPN documented in this encounter [facility] 01-21-2025 Note [facility] 01-15-2025 Note [facility] 01-15-2025 History of Present illness Narrative Episode Visit Count: 2 Therapist That Will Accept/Oversee The Plan Of Care: Inocencio Rodolfo Start of Care Date: 01/02/25 Onset Date: 12/03/24 Plan of Care Certification Date: 01/02/25 Next Certification Due Date: 03/05/25 REHABILITATION AND SPORTS THERAPY PHYSICAL THERAPY RE-EVALUATION PLAN OF CARE UPDATE: Assessment: Esvin West Sr. demonstrates difficulty with standing, walking, heavy exertion, lifting, and physical activities. Patient continues to present with impairments in ADL's, overall function, strength, and symptom management that interfere with nothing . Current prognosis is Fair due to: clinical presentation, limited compliance with previous therapy, limited tolerance to activity, poor understanding of deficits . The patient will benefit from continued skilled therapy services to meet the updated goals for this plan of care as noted below. Goals for Episode of Care: established 01/02/25 Patient will demonstrate independence in HEP. Patient will improve core/trunk strength to 4+/5 to improve tolerance for standing ADLs and decrease pain. Time Frame for Goals and Treatment : 03/05/25 Planned Interventions, Frequency, and Duration: 1x/week, 4 weeks Total Number of Visits Planned: 4 Patient to be seen for Therapeutic exercise (67329), Neuromuscular re-education (29555), Manual therapy (72231), Therapeutic activities (85674), Self-usp management (19952), Gait Training (23872), Patient/Family/Caregiver Education, Body Mechanics Training PLAN FOR NEXT VISIT: Flexion bias, neutral spine strengthening, traction for radicular symptoms SUBJECTIVE: Patient returns today to finish evaluation. Functional Limitations: nothing Pain: Pain Pain Level: 5 Pain Location: Hip - Right Description: Numbness Frequency: Intermittent OBJECTIVE MEASURES WITH LEVEL OF FUNCTION: LE Strength Trunk Strength: 3+/5 R LE Strength: 5/5 L LE Strength: 5/5 Special Tests - Hip and Spine Hip and Spine Special Tests: SLR Test, AARON Test, FADDIR Test, Scour Test SLR Test: Right Positive, Left Negative AARON Test: Right Negative FADDIR Test: Right Negative Scour Test: Right Negative TREATMENT: Re-evaluation: Performed due to return of patient to therapy for same diagnosis. Therapeutic Exercise: 1: *SKC 3x30 sec 2: *DKC 3x30 sec 3: *Supine PPT 3x10, 3-5 sec holds Skilled Intervention: Patient was educated in proper exercise technique and purpose for exercises. Skilled judgment was used in selection of appropriate interventions. Provided written instruction for home exercise program to facilitate proper performance and compliance. Correct performance of therapeutic exercises was facilitated with verbal, visual, and tactile cuing. Manual Therapy: 1: Manual lumbar belt traction x15 min with feet elevated Skilled Intervention: Manual skills to improve joint mobility, ROM, and decrease pain. Utilized anatomy knowledge of the clinician, and assessment of patient's response to intervention. Billing * Re-Evaluation Complexity: 1 Unit Therapeutic Exercise Treatment Minutes: 11 Manual TherapyTreatment Minutes: 15 Skilled Treatment Time Minutes (timed and untimed codes): 40 Total Session Time (minutes): 40 Session Start Time : 1225 Session Stop Time : 1305 Inocencio Reynolds PT Program_ID:[id number] Access Code: [email or web address] URL: [email or web address] Date: 01-15-2025 Prepared By: Inocencio Reynolds Program Notes Exercises - Hooklying Single Knee to Chest - 1 x daily - 7 x weekly - 3 sets - 3 reps - Supine Double Knee to Chest - 1 x daily - 7 x weekly - 3 sets - 3 reps - Supine Posterior Pelvic Tilt - 1 x daily - 7 x weekly - 3 sets - 10 reps documented in this encounter [facility] 01-08-2025 Telephone encounter Note Patient calls and is requesting refill. Previous prescription was sent to [facility]. Patient needs medication to be sent to [facility] The patient has been identified by name and date of : Yes Caregiver verified no other encounters exist for this prescription request: Yes Caregiver confirmed with patient/requestor that no other refills are due, in the near future, with this provider at this time: Yes The last office visit in the department: 10/31/2024 Does the patient have a future office visit with this provider/department: Yes 05/03/2025 Requested Prescriptions Pending Prescriptions Disp Refills Insulin [place], Disposable, (1ST TIER UNIFINE PENTIPS) 31 gauge x 3/16 400 each 3 Sig: Use as directed 4 times a day. Dx: E11.65 Pham Scherer RN January 08, 2025 11:12 AM [facility] 01-08-2025 Miscellaneous Notes Patient calls and is requesting refill. Previous prescription was sent to [facility]. Patient needs medication to be sent to [facility] The patient has been identified by name and date of : Yes Caregiver verified no other encounters exist for this prescription request: Yes Caregiver confirmed with patient/requestor that no other refills are due, in the near future, with this provider at this time: Yes The last office visit in the department: 10/31/2024 Does the patient have a future office visit with this provider/department: Yes 05/03/2025 Requested Prescriptions Pending Prescriptions Disp Refills Insulin [place], Disposable, (1ST TIER UNIFINE PENTIPS) 31 gauge x 3/16 400 each 3 Sig: Use as directed 4 times a day. Dx: E11.65 Pham Scherer RN January 08, 2025 11:12 AM documented in this encounter [facility] 01-07-2025 Note [facility] 01-07-2025 History of Present illness Narrative This note was created using [employer]. Subjective Esvin West Sr. is a 79 year old male. His hypertension was improving. Nephrology added an additional 30 mg of nifedipine in the evening. Veltassa was also just added for persistent hyperkalemia. He was watching his dietary potassium. Review of Systems Constitutional: Negative for appetite change and fatigue. Respiratory: Negative for shortness of breath. Cardiovascular: Negative for chest pain, palpitations and leg swelling. Gastrointestinal: Negative for abdominal pain, constipation, diarrhea, nausea and vomiting. Neurological: Negative for dizziness and headaches. 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, With Long-Term Current Use of Insulin (Hcc) Type 2 Diabetes Mellitus With Diabetic Polyneuropathy, With Long-Term Current Use of Insulin (Hcc) Type 2 Diabetes Mellitus With Stage 4 Chronic Kidney Disease, With Long-Term Current Use of Insulin ([facility]) Primary Open Angle Glaucoma (Poag) of Both Eyes, Severe Stage Hypoglycemia Due to Type 2 Diabetes Mellitus (Hcc) Localized, Primary Osteoarthritis Strain of Muscle, Fascia and Tendon of Right Hip, Subsequent Encounter Trochanteric Bursitis of Right Hip Unilateral Primary Osteoarthritis, Right Hip Social History Tobacco Use Smoking status: Former Types: Cigars Smokeless tobacco: Never Tobacco comments: quit 40 + years ago Vaping Use Vaping status: Never Used Substance Use Topics Alcohol use: Yes Comment: rarely, 2-3 glasses red wine per month Drug use: No Current Outpatient Medications Medication Sig patiromer calcium sorbitex (VELTASSA) 8.4 gram pwpk Take 1 packet by mouth every Tuesday, Tuesday, and Tuesday. NIFEdipine ER (PROCARDIA XL) 30 mg 24 hr tablet Take 1 tablet by mouth once daily. Please take in the pm in addition to the 90mg in the morning for a total of 120mg daily brimonidine (ALPHAGAN) 0.2 % ophthalmic solution Use 1 drop in both eyes three times a day. empagliflozin (JARDIANCE) 25 mg tablet Take 1 tablet by mouth daily with breakfast. furosemide (LASIX) 40 mg tablet Take 1 tablet by mouth once daily. insulin glargine (LANTUS SOLOSTAR U-100 INSULIN) 100 unit/mL (3 mL) Inject subcutaneously 23 units daily in the AM insulin lispro (HUMALOG KWIKPEN INSULIN) 100 unit/mL Inject subcutaneously 2 units breakfast, 3 units lunch, 3 units dinner plus SS up to 20 units daily Insulin [place], Disposable, (1ST TIER UNIFINE PENTIPS) 31 gauge x 3/16 Use as directed 4 times a day. Dx: E11.65 meclizine (ANTIVERT) 25 mg tab Take 1 tablet by mouth three times a day as needed. gabapentin (NEURONTIN) 300 mg capsule Take 1 capsule by mouth three times a day for 180 days. flash glucose sensor (FREESTYLE DAIJA 2 SENSOR) kit Use one sensor every 14 days, IDDM, E11.42 NIFEdipine ER (PROCARDIA XL) 90 mg 24 hr tablet Take 1 tablet by mouth once daily. dorzolamide-timolol (COSOPT) 22.3-6.8 mg/mL ophthalmic solution Use 1 Drop in both eyes two times a day. latanoprost (XALATAN) 0.005 % ophthalmic solution INSTILL 1 DROP IN BOTH EYES DAILY AT BEDTIME rosuvastatin (CRESTOR) 40 mg tablet Take 1 tablet by mouth daily at bedtime. Blood Pressure Monitor (BLOOD PRESSURE KIT) 1 Each by VIA DEVICE route once daily. Please check your blood pressure once per day so we can see if we need to increase medications flash glucose scanning reader (Spread[employer] DAIJA 2 READER) Use continuously to monitor glucose. Dx: Type 2 DM - Uncontrolled E11.65 Insulin: Yes blood sugar diagnostic (BLOOD GLUCOSE TEST) test strip Test blood sugar(s) 3 times daily. Dx: Type 2 DM - Uncontrolled E11.65 Insulin: Yes Lancets lancets Test blood sugar(s) 3 times daily. Dx: Type 2 DM - Uncontrolled E11.65 Insulin: Yes polyethylene glycol 3350 (MIRALAX) 17 gram/dose powder Take 17 g by mouth every other day. cholecalciferol (VITAMIN D) 1,000 unit tab tablet Take 1 tablet by mouth once daily. cyanocobalamin (VITAMIN B-12) 1,000 mcg tab Take 1 tablet by mouth once daily. aspirin(ECOTRIN LOW STRENGTH 81 MG TAB) Take by mouth. NIFEdipine ER (PROCARDIA XL) 30 mg 24 hr tablet Take 1 tablet by mouth once daily. Please take in the pm in addition to the 90mg in the morning for a total of 120mg daily NIFEdipine ER (PROCARDIA XL) 90 mg 24 hr tablet Take 1 tablet by mouth once daily. No current facility-administered medications for this visit. Objective BP 137/66 (BP Site: Left Arm, BP Position: Sitting, BP Cuff Size: Large Adult) Pulse 80 Resp 16 Wt 91 kg (200 lb 9.9 oz) BMI 29.85 kg/m Physical Exam Constitutional: General: He is not in acute distress. Appearance: He is not ill-appearing. Cardiovascular: Rate and Rhythm: Normal rate and regular rhythm. Heart sounds: No murmur heard. No gallop. Pulmonary: Breath sounds: Normal breath sounds. Musculoskeletal: Right lower leg: No edema. Left lower leg: No edema. Neurological: General: No focal deficit present. Mental Status: He is alert. Gait: Gait normal. Assessment and Plan 1. Type 2 diabetes mellitus with stage 4 chronic kidney disease, with long-term current use of insulin (HCC) - ICD9: 250.40, 585.4, V58.67, ICD10: E11.22, N18.4, Z79.4 (primary diagnosis) - Improving control - Continue current medications - Recheck labs in 2 weeks. - BASIC METABOLIC PANEL - MAGNESIUM 2. Essential hypertension - ICD9: 401.9, ICD10: I10 - Improving control - Continue current medications - NIFEDIPINE ER 30 MG TABLET,EXTENDED RELEASE 24 HR 3. Type 2 diabetes mellitus with diabetic polyneuropathy, with long-term current use of insulin (HCC) - ICD9: 250.60, 357.2, V58.67, ICD10: E11.42, Z79.4 Neuropathy stable. - GABAPENTIN 300 MG CAPSULE 4. Hyperlipidemia, unspecified hyperlipidemia type - ICD9: 272.4, ICD10: E78.5 - Controlled - Continue current medications - Counseled on healthy diet and regular exercise - ROSUVASTATIN 40 MG TABLET Jesse Glover MD documented in this encounter [facility] 01-02-2025 Telephone encounter Note Message left for patient to call back [facility] 01-02-2025 Miscellaneous Notes Message left for patient to call back Images from the original note were not included. Haydee Christina, MARIA TERESA.RISK AND COMPLIANCE ANALYTICS DIRECTOR P Reina Christina Life Care Planner Clinical Pool Please call him He likes to fish and I'm wondering if he's been outside without as much hydration because his kidney function has worsened. Please have him drink at least 48-60oz of water per day We have been chasing his hyperkalemia for some time and it's still high. I think it's time to start veltassa. He can take it on Tuesday, Tue and Tuesday. I will send in rx. It sometimes needs prior auth and he needs to read instructions as it cannot be taken within 2 hrs of other medications so I usually recommend taking it at lunch Follow up as planned Thanks documented in this encounter [facility] 01-02-2025 Telephone encounter Note Images from the original note were not included. Haydee Christina APRN.RISK AND COMPLIANCE ANALYTICS DIRECTOR P Stro Carri Life Care Planner Clinical Pool Please call him He likes to fish and I'm wondering if he's been outside without as much hydration because his kidney function has worsened. Please have him drink at least 48-60oz of water per day We have been chasing his hyperkalemia for some time and it's still high. I think it's time to start veltassa. He can take it on Tuesday, Tue and Tuesday. I will send in rx. It sometimes needs prior auth and he needs to read instructions as it cannot be taken within 2 hrs of other medications so I usually recommend taking it at lunch Follow up as planned Thanks [facility] 01-02-2025 Note [facility] 01-02-2025 History of Present illness Narrative Episode Visit Count: 1 Therapist That Will Accept/Oversee The Plan Of Care: Inocencio Reynolds Start of Care Date: 01/02/25 Onset Date: 12/03/24 Plan of Care Certification Date: 01/02/25 Next Certification Due Date: 03/05/25 Patient Identified by Name and Date of : Yes REHABILITATION AND SPORTS THERAPY PHYSICAL THERAPY EVALUATION PLAN OF CARE: Assessment: Esvin West Sr. presents with chief complaint of R hip pain that interferes with nothing (he pushes through symptoms to accomplish everything he needs to) . The patient presents with impairments in ADL's and overall function. Patient did not complete the PROMIS (Patient Reported Outcome Measures Information System) due to leaving appointment early. Prognosis for therapy is Poor due to: clinical presentation, history of poor adherence with medical recommendations . The patient will benefit from skilled therapy services to meet the goals established for this plan of care as noted below. Goals will need to be re-established upon next visit as no objective measures were taken today and I was left with more questions than answers based upon the subjective questioning that did take place before patient left early. Goals for Episode of Care: established 01/02/25 Goals will be established upon next visit due to patient choosing to leave early before objective measures could be obtained. Time Frame for Goals and Treatment : 03/05/25 Planned Interventions, Frequency, and Duration: Current Frequency: 1 visit Duration: 1 visit Total Number of Visits Planned: 1 Planned Treatment Interventions: Therapeutic exercise (20447), Neuromuscular re-education (53940), Manual therapy (29837), Therapeutic activities (74933), Self-usp management (79143), Gait Training (18732), Patient/Family/Caregiver Education, Body Mechanics Training PLAN FOR NEXT VISIT: Patient will need rescheduled and a re-evaluation performed due to leaving early before any physical/objective measures could be obtained today Patient demonstrates good understanding of plan of care and treatment. The above goals and plan of care were discussed and agreed upon by patient/family. SUBJECTIVE: R hip pain for a month when he was helping his in the garden. Notes that he felt a tweak and now the pain comes and goes, pain is from the hip to the lateral knee. Patient notes the sensation is mainly numbness. No PMH of lumbar issues. Push mowing and heavier exertion also tend to flare things up for him. It feels better when he pulls his knee to his chest. Patient interupts exam to state that #1 he is disappointed that it took him a couple of weeks to get in, and #2 he has an appointment in [place] that he would rather prioritize and he would like to reschedule and leave. Patient was educated that my next evaluation spot is 3 weeks out and he would risk waiting a long time to get back in. Functional Limitations: nothing (he pushes through symptoms to accomplish everything he needs to) Intake Information: Prescription present Pain: Pain Pain Level: (did not get to ask) Pain Location: Hip - Right Description: Numbness Frequency: Intermittent Post Treatment Pain Post Treatment Pain Level: No Change OBJECTIVE MEASURES WITH LEVEL OF FUNCTION: Education: Education Barriers: Other: See Comment (Patient's adherence to plan of care/expectations) Education Provided: No Reason Education Not Provided: (Patient left appointment early) TREATMENT: Evaluation Billing * Evaluation Low Complexity: 1 Unit Skilled Treatment Time Minutes (timed and untimed codes): 15 Total Session Time (minutes): 15 Session Start Time : 1114 Session Stop Time : 1129 Inocencio Reynolds PT documented in this encounter [facility] 12-31-2024 Telephone encounter Note spoke with the patient Dr Marrero'wilfred message reviewed with the patient patient's BP was checked prior to him taking his BP medication this morning. patient will get his blood work soon. [facility] 12-31-2024 Miscellaneous Notes spoke with the patient Dr Marrero'wilfred message reviewed with the patient patient's BP was checked prior to him taking his BP medication this morning. patient will get his blood work soon. Covering for Haydee will return tomorrow. Please let patient know that if that is the blood pressure before his a.m. dose of BP medications, then that is looking good. Blood work has been ordered to check the potassium. He does not need to fast for that. spoke with the patient patient checked his BP BP first thing in the morning 154/70 66 5 minutes later 144/70 66 5 minutes later 141/66 70 patient is also asking if he can have orders for blood work to check his Potassium message routed to Haydee please advise, thank you Patient called to update Haydee on his blood pressure. Please advice documented in this encounter [facility] 12-31-2024 Telephone encounter Note Covering for Haydee will return tomorrow. Please let patient know that if that is the blood pressure before his a.m. dose of BP medications, then that is looking good. Blood work has been ordered to check the potassium. He does not need to fast for that. [facility] 12-31-2024 Telephone encounter Note spoke with the patient patient checked his BP BP first thing in the morning 154/70 66 5 minutes later 144/70 66 5 minutes later 141/66 70 patient is also asking if he can have orders for blood work to check his Potassium message routed to Haydee please advise, thank you [facility] 12-31-2024 Telephone encounter Note Patient called to update Haydee on his blood pressure. Please advice [facility] 12-27-2024 Telephone encounter Note The following approved medication requests have been transmitted electronically. Requested Prescriptions Signed Prescriptions Disp Refills NIFEdipine ER (PROCARDIA XL) 30 mg 24 hr tablet 5 tablet 0 Sig: Take 1 tablet by mouth once daily. Please take in the pm in addition to the 90mg in the morning for a total of 120mg daily Authorizing Provider: JESSE GLOVER NIFEdipine ER (PROCARDIA XL) 90 mg 24 hr tablet 5 tablet 0 Sig: Take 1 tablet by mouth once daily. Authorizing Provider: JESSE GLOVER MA [facility] 12-27-2024 Miscellaneous Notes The following approved medication requests have been transmitted electronically. Requested Prescriptions Signed Prescriptions Disp Refills NIFEdipine ER (PROCARDIA XL) 30 mg 24 hr tablet 5 tablet 0 Sig: Take 1 tablet by mouth once daily. Please take in the pm in addition to the 90mg in the morning for a total of 120mg daily Authorizing Provider: JESSE GLOVER NIFEdipine ER (PROCARDIA XL) 90 mg 24 hr tablet 5 tablet 0 Sig: Take 1 tablet by mouth once daily. Authorizing Provider: JESSE GLOVER MA Patient calls and is upset that medication was not called into pharmacy yet. Pham Scherer RN Prescription Refill Information The patient has been identified by name and date of : Yes Caregiver verified no other encounters exist for this prescription request: Yes Caregiver confirmed with patient/requestor that no other refills are due, in the near future, with this provider at this time: Yes The last office visit in the department: 11/26/24 Does the patient have a future office visit with this provider/department: Yes Requested Prescriptions Pending Prescriptions Disp Refills NIFEdipine ER (PROCARDIA XL) 30 mg 24 hr tablet 5 tablet 0 Sig: Take 1 tablet by mouth once daily. Please take in the pm in addition to the 90mg in the morning for a total of 120mg daily NIFEdipine ER (PROCARDIA XL) 90 mg 24 hr tablet 5 tablet 0 Sig: Take 1 tablet by mouth once daily. Patient is out of town and forgot these medications. He is requesting ONLY 5 pills of each until he returns home. Made a copy of each prescription and attached to [facility] Nolan Thrasher. Patient requested send today, and call him once submitted. Ana Tapia December 26, 2024 2:55 PM documented in this encounter [facility] 12-27-2024 Telephone encounter Note Patient calls and is upset that medication was not called into pharmacy yet. Pham Scherer, RN [facility] 12-26-2024 Telephone encounter Note Prescription Refill Information The patient has been identified by name and date of : Yes Caregiver verified no other encounters exist for this prescription request: Yes Caregiver confirmed with patient/requestor that no other refills are due, in the near future, with this provider at this time: Yes The last office visit in the department: 11/26/24 Does the patient have a future office visit with this provider/department: Yes Requested Prescriptions Pending Prescriptions Disp Refills NIFEdipine ER (PROCARDIA XL) 30 mg 24 hr tablet 5 tablet 0 Sig: Take 1 tablet by mouth once daily. Please take in the pm in addition to the 90mg in the morning for a total of 120mg daily NIFEdipine ER (PROCARDIA XL) 90 mg 24 hr tablet 5 tablet 0 Sig: Take 1 tablet by mouth once daily. Patient is out of town and forgot these medications. He is requesting ONLY 5 pills of each until he returns home. Made a copy of each prescription and attached to [employer]. Patient requested send today, and call him once submitted. Ana Tapia December 26, 2024 2:55 PM [facility] 12-18-2024 Instructions Marsha Eric - 12/18/2024 11:57 AM EDT Diabetes Foot Care Instructions When [...] it. Apply a bandage and wear a different pair of shoes. Take Care of Your Toenails Cut toenails after bathing, when they are soft. Cut toenails straight across and smooth with a nail file. Avoid cutting into the corners of toes. Do not cut cuticles. If you have neuropathy (or decreased sensation in your feet) a access clerk should always cut your toenails. Be Careful [...] make sure there are no foreign objects or rough areas. Avoid tight socks. Wear natural-fiber socks [...] Go to your health care provider or access clerk to treat these conditions. documented in this encounter [facility] 12-18-2024 Note [facility] 12-18-2024 History of Present illness Narrative Last saw pcp: 11/26/24 FOLLOW UP PODIATRIC OFFICE VISIT Chief Complaint: This 79 year old who presents for follow up:painful callus of right foot Has yet to receive his custom inserts Plans to receive them in 2 weeks Complains of painful callus of right great toe Also has long dystrophic toenails of both feet. PAIN EVALUATION No data found in the last 1 encounters. Hemoglobin A1C (POCT) Date Value Ref Range Status 10/31/2024 6.4 (A) 4.3 - 5.6 % Final Comment: Location:[facility], [address] [place], [address] Point of care (POC) Hemoglobin A1c (HGBA1C) [...] specific diabetes management situations: The POC device barometers calibrator provides a normal range of 4.2% to 6.5% for the HGBA1C POC test. However, the [place] [employer] guidelines indicate that patients with [...] Anemia in stage 3 chronic kidney disease ([facility]) Background diabetic retinopathy(362.01) 09/18/2008 [facility]. 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 Tubular adenoma of colon 08/10/2016 Type 2 diabetes mellitus with stage 4 chronic kidney disease, with long-term current use of insulin ([facility]) 11/26/2024 Type II or unspecified type diabetes mellitus with ophthalmic manifestations, uncontrolled(250.52) 09/18/2008 [facility] Unspecified asthma(493.90) Vitreous hemorrhage ([facility]) 04/19/2018 Added automatically from request for surgery [id number] Vitreous hemorrhage of left eye ([facility]) Current Outpatient Medications Medication Sig NIFEdipine ER (PROCARDIA XL) 30 mg 24 hr tablet Take 1 tablet by mouth once daily. Please take in the pm in addition to the 90mg in the morning for a total of 120mg daily brimonidine (ALPHAGAN) 0.2 % ophthalmic solution Use 1 drop in both eyes three times a day. empagliflozin (JARDIANCE) 25 mg tablet Take 1 tablet by mouth daily with breakfast. furosemide (LASIX) 40 mg tablet Take 1 tablet by mouth once daily. insulin glargine (LANTUS SOLOSTAR U-100 INSULIN) 100 unit/mL (3 mL) Inject subcutaneously 23 units daily in the AM insulin lispro (HUMALOG KWIKPEN INSULIN) 100 unit/mL Inject subcutaneously 2 units breakfast, 3 units lunch, 3 units dinner plus SS up to 20 units daily Insulin [place], Disposable, (1ST TIER UNIFINE PENTIPS) 31 gauge x 3/16 Use as directed 4 times a day. Dx: E11.65 meclizine (ANTIVERT) 25 mg tab Take 1 tablet by mouth three times a day as needed. gabapentin (NEURONTIN) 300 mg capsule Take 1 capsule by mouth three times a day for 180 days. flash glucose sensor (FREESTYLE DAIJA 2 SENSOR) kit Use one sensor every 14 days, IDDM, E11.42 NIFEdipine ER (PROCARDIA XL) 90 mg 24 hr tablet Take 1 tablet by mouth once daily. dorzolamide-timolol (COSOPT) 22.3-6.8 mg/mL ophthalmic solution Use 1 Drop in both eyes two times a day. latanoprost (XALATAN) 0.005 % ophthalmic solution INSTILL 1 DROP IN BOTH EYES DAILY AT BEDTIME rosuvastatin (CRESTOR) 40 mg tablet Take 1 tablet by mouth daily at bedtime. Blood Pressure Monitor (BLOOD PRESSURE KIT) 1 Each by VIA DEVICE route once daily. Please check your blood pressure once per day so we can see if we need to increase medications flash glucose scanning reader (FREESTYLE DAIJA 2 READER) Use continuously to monitor glucose. Dx: Type 2 DM - Uncontrolled E11.65 Insulin: Yes blood sugar diagnostic (BLOOD GLUCOSE TEST) test strip Test blood sugar(s) 3 times daily. Dx: Type 2 DM - Uncontrolled E11.65 Insulin: Yes Lancets lancets Test blood sugar(s) 3 times daily. Dx: Type 2 DM - Uncontrolled E11.65 Insulin: Yes polyethylene glycol 3350 (MIRALAX) 17 gram/dose powder Take 17 g by mouth every other day. cholecalciferol (VITAMIN D) 1,000 unit tab tablet Take 1 tablet by mouth once daily. cyanocobalamin (VITAMIN B-12) 1,000 mcg tab Take 1 tablet by mouth once daily. aspirin(ECOTRIN LOW STRENGTH 81 MG TAB) Take by mouth. No current facility-administered medications for this visit. ALLERGIES Allergen Reactions Cortisone Other: See Comments [place] real hot, as if someone threw boiling water on him Latex Other: See Comments Zestril [Lisinopril] Intolerance ARF, hypokalemia PAST SURGICAL [...] OBJECTIVE: Constitutional: Pt is a well developed 79 year old male who is alert, oriented, cooperative and in no apparent distress. Eyes: Following during examination. No redness or drainage. Respiratory: RR normal and nonlabored. Even breathing. No evidence of distress. Psychology: Patient is engaged during conversation. Normal affect and mood. Does not appear depressed or anxious. NVSI unchanged from previous visit. Dermatological: Nails 1-5 b/l are elongated, discolored, dystrophic, painful. Webspaces clean and dry 1-4 b/l. Skin appears well hydrated and supple. good color, texture, turgor. No open lesions present. Pre-ulcerative callus is noted to right hallux. No ulceration is present. Musculoskeletal/Orthopaedic: Patient has no pain to palpation of b/l feet Pes planus is noted to b/l feet much more apparent to right lower extremity ASSESSMENT: (M76.829) Posterior tibial tendon dysfunction (primary encounter diagnosis) (L84) Callus of foot (M21.41, M21.42) Pes planus of both feet (E11.49) Other diabetic neurological complication associated with type 2 diabetes mellitus (HCC) (B35.1) Onychomycosis (M79.674) Pain in toe of right foot (M79.675) Pain in toe of left foot PLAN: Discussed pre-ulcerative callus of right hallux. This is caused by significant pronation of right hindfoot. Patient is awaiting the arrival of custom inserts. I do feel these will help to provide offloading of the right hallux. Stressed the importance of wearing good supportive shoes, avoiding barefoot walking and avoiding shoes that do not offer much support. Pre-ulcerative callus was reduced today with 15 blade, tissue nippers and dremmel Toenails 1-5 b/l debrided in length and thickness Patient will follow-up in 1 month or sooner if problems arise. Marsha Eric DPM AMB ROOMING INTAKE FLOWSHEET DATA Patient presents with: Left Foot - Established Patient, Follow Up, Callous Right Foot - Established Patient, Follow Up, Callous Ledy Campbell LPN documented in this encounter [facility] 12-18-2024 Note [facility] 12-06-2024 Telephone encounter Note spoke with the patient Haydee's message reviewed with the patient, patient wrote down the instructions and voiced an understanding patient is in [place] for the next 5 days, he would like the medication ( Nifedipine tablets) sent to [facility] in [facility] he would like to start taking the medication right away message routed to Haydee please advise, thank you [facility] 12-06-2024 Miscellaneous Notes spoke with the patient Haydee's message reviewed with the patient, patient wrote down the instructions and voiced an understanding patient is in [place] for the next 5 days, he would like the medication ( Nifedipine tablets) sent to [facility] in [place] [address] he would like to start taking the medication right away message routed to Haydee please advise, thank you Message left to return call Spoke with patient and advised. Mail potassium diet. Checking BP and around 141/70 LM, for patient to return call. ----- Message from Haydee Christina APRN.RISK AND COMPLIANCE ANALYTICS DIRECTOR sent at 12/06/2024 7:58 AM EDT ----- Can you give him a call. His K is still elevated. Not sure if he's watching his foods. Foods high in potassium are bananas, potatoes, oranges, citrus fruits, dried fruits, kiwi, court, brussel sprouts, mushrooms,beans, tomatoes, chocolate, spinach, prunes, avocados, salt substitutes and some protein shake supplements. We may need to either decrease his losartan or add veltassa. I hate to add the veltassa as it can be expensive and he already pays for his jardiance. Please see if he checks his BPs and we can go from there to decide on next steps thanks documented in this encounter [facility] 12-06-2024 Telephone encounter Note Message left to return call [facility] 12-06-2024 Telephone encounter Note Spoke with patient and advised. Mail potassium diet. Checking BP and around 141/70 [facility] 12-06-2024 Telephone encounter Note LM, for patient to return call. [facility] 12-06-2024 Telephone encounter Note ----- Message from Haydee Christina APRN.CNP sent at 12/06/2024 7:58 AM EDT ----- Can you give him a call. His K is still elevated. Not sure if he's watching his foods. Foods high in potassium are bananas, potatoes, oranges, citrus fruits, dried fruits, kiwi, court, brussel sprouts, mushrooms,beans, tomatoes, chocolate, spinach, prunes, avocados, salt substitutes and some protein shake supplements. We may need to either decrease his losartan or add veltassa. I hate to add the veltassa as it can be expensive and he already pays for his jardiance. Please see if he checks his BPs and we can go from there to decide on next steps thanks [facility] 12-05-2024 Instructions Radha Cohn MD - 12/05/2024 2:00 PM EDT Images from the original note were not included. -Cosopt twice daily both eyes -latanoprost at bedtime in both eyes -start brimonidine three times a day both eyes documented in this encounter [facility] 12-05-2024 Note [facility] 12-05-2024 History of Present illness Narrative Assessment and Plan 1. Primary open angle [...] possible if increased floaters, flashes, or shadows. -elevated intraocular pressure again today -Cosopt twice daily both eyes -latanoprost at bedtime in both eyes -start brimonidine three times a day both eyes -continue follow-up Dr. Finnegan as scheduled for retina - has a significant floater which has been stable -Me in 2 months with orta visual field (HVF) 24-2 [...] all of its relevant components. Radha Cohn MD documented in this encounter [facility] 11-28-2024 Telephone encounter Note The following approved medication requests have been transmitted electronically. Requested Prescriptions Signed Prescriptions Disp Refills empagliflozin (JARDIANCE) 25 mg tablet 90 tablet 1 Sig: Take 1 tablet by mouth daily with breakfast. Authorizing Provider: JESSE GLOVER MD [facility] 11-28-2024 Miscellaneous Notes The following approved medication requests have been transmitted electronically. Requested Prescriptions Signed Prescriptions Disp Refills empagliflozin (JARDIANCE) 25 mg tablet 90 tablet 1 Sig: Take 1 tablet by mouth daily with breakfast. Authorizing Provider: JESSE GLOVER MD Patient calls and states that insurance is wanting medication to be sent to [facility] for coverage. Patient requesting prescription to be sent there so insurance will cover. The patient has been identified by name and date of : Yes Caregiver verified no other encounters exist for this prescription request: Yes Caregiver confirmed with patient/requestor that no other refills are due, in the near future, with this provider at this time: Yes The last office visit in the department: 11/26/2024 Does the patient have a future office visit with this provider/department: Yes 12/06/2024 Requested Prescriptions Pending Prescriptions Disp Refills empagliflozin (JARDIANCE) 25 mg tablet 90 tablet 1 Sig: Take 1 tablet by mouth daily with breakfast. Pham Scherer RN November 28, 2024 10:51 AM documented in this encounter [facility] 11-28-2024 Telephone encounter Note Patient calls and states that insurance is wanting medication to be sent to [facility] for coverage. Patient requesting prescription to be sent there so insurance will cover. The patient has been identified by name and date of : Yes Caregiver verified no other encounters exist for this prescription request: Yes Caregiver confirmed with patient/requestor that no other refills are due, in the near future, with this provider at this time: Yes The last office visit in the department: 11/26/2024 Does the patient have a future office visit with this provider/department: Yes 12/06/2024 Requested Prescriptions Pending Prescriptions Disp Refills empagliflozin (JARDIANCE) 25 mg tablet 90 tablet 1 Sig: Take 1 tablet by mouth daily with breakfast. Pham Scherer RN November 28, 2024 10:51 AM [facility] 11-27-2024 Telephone encounter Note Patient given Haydee's message and verbalizes understanding. [facility] 11-27-2024 Miscellaneous Notes Patient given Haydee's message and verbalizes understanding. Patient given results and instructions below and verbalizes understanding. He states that his PCP increased his Jardiance to 25mg daily yesterday at his visit. He wanted you to be aware in case you wanted to touch base with his PCP at all regarding it. documented in this encounter [facility] 11-27-2024 Telephone encounter Note Patient given results and instructions below and verbalizes understanding. He states that his PCP increased his Jardiance to 25mg daily yesterday at his visit. He wanted you to be aware in case you wanted to touch base with his PCP at all regarding it. [facility] 11-26-2024 Note [facility] 11-26-2024 History of Present illness Narrative This note was created using NetScientificriter. Subjective Patient presents with: ER F/U Esvin West Sr. is a 79 year old male. He was referred to the ER 11/22/24 for potassium of 6.3. His repeat potassium was 5.4 and EKG showed no acute hyperkalemia. He was given IV insulin and bicarbonate. Nephrology redrew his potassium today and result was pending. He mentioned right hip pain with prolonged sitting, improving with sports rub and activity. Review of Systems Constitutional: Negative for fatigue. Respiratory: Negative for shortness of breath. Cardiovascular: Negative for chest pain. Gastrointestinal: Negative for diarrhea, nausea and vomiting. 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, With Long-Term Current Use of Insulin (Hcc) Type 2 Diabetes Mellitus With Diabetic Polyneuropathy, With Long-Term Current Use of Insulin (Hcc) Type 2 Diabetes Mellitus With Stage 4 Chronic Kidney Disease, With Long-Term Current Use of Insulin ([facility]) Primary Open Angle Glaucoma (Poag) of Both Eyes, Severe Stage Hypoglycemia Due to Type 2 Diabetes Mellitus (Hcc) Localized, Primary Osteoarthritis Social History Tobacco Use Smoking status: Former Types: Cigars Smokeless tobacco: Never Tobacco comments: quit 40 + years ago Vaping Use Vaping status: Never Used Substance Use Topics Alcohol use: Yes Comment: rarely, 2-3 glasses red wine per month Drug use: No Current Outpatient Medications Medication Sig insulin glargine (LANTUS SOLOSTAR U-100 INSULIN) 100 unit/mL (3 mL) Inject subcutaneously 23 units daily in the AM insulin lispro (HUMALOG KWIKPEN INSULIN) 100 unit/mL Inject subcutaneously 2 units breakfast, 3 units lunch, 3 units dinner plus SS up to 20 units daily Insulin [place], Disposable, (1ST TIER UNIFINE PENTIPS) 31 gauge x 3/16 Use as directed 4 times a day. Dx: E11.65 meclizine (ANTIVERT) 25 mg tab Take 1 tablet by mouth three times a day as needed. empagliflozin (JARDIANCE) 10 mg tablet Take 1 tablet by mouth daily with breakfast. pravastatin (PRAVACHOL) 80 mg tablet Take 1 tablet by mouth once daily. gabapentin (NEURONTIN) 300 mg capsule Take 1 capsule by mouth three times a day for 180 days. flash glucose sensor (FREESTYLE DAIJA 2 SENSOR) kit Use one sensor every 14 days, IDDM, E11.42 losartan (COZAAR) 50 mg tablet Take 1 tablet by mouth once daily. NIFEdipine ER (PROCARDIA XL) 90 mg 24 hr tablet Take 1 tablet by mouth once daily. dorzolamide-timolol (COSOPT) 22.3-6.8 mg/mL ophthalmic solution Use 1 Drop in both eyes two times a day. latanoprost (XALATAN) 0.005 % ophthalmic solution INSTILL 1 DROP IN BOTH EYES DAILY AT BEDTIME rosuvastatin (CRESTOR) 40 mg tablet Take 1 tablet by mouth daily at bedtime. Blood Pressure Monitor (BLOOD PRESSURE KIT) 1 Each by VIA DEVICE route once daily. Please check your blood pressure once per day so we can see if we need to increase medications furosemide (LASIX) 40 mg tablet Take 1 tablet by mouth every other day. flash glucose scanning reader (FREESTYLE DAIJA 2 READER) Use continuously to monitor glucose. Dx: Type 2 DM - Uncontrolled E11.65 Insulin: Yes blood sugar diagnostic (BLOOD GLUCOSE TEST) test strip Test blood sugar(s) 3 times daily. Dx: Type 2 DM - Uncontrolled E11.65 Insulin: Yes Lancets lancets Test blood sugar(s) 3 times daily. Dx: Type 2 DM - Uncontrolled E11.65 Insulin: Yes polyethylene glycol 3350 (MIRALAX) 17 gram/dose powder Take 17 g by mouth every other day. cholecalciferol (VITAMIN D) 1,000 unit tab tablet Take 1 tablet by mouth once daily. cyanocobalamin (VITAMIN B-12) 1,000 mcg tab Take 1 tablet by mouth once daily. aspirin(ECOTRIN LOW STRENGTH 81 MG TAB) Take by mouth. No current facility-administered medications for this visit. Objective BP 155/70 Pulse 76 Resp 20 Wt 90 kg (198 lb 6.6 oz) BMI 29.52 kg/m Physical Exam Cardiovascular: Rate and Rhythm: Normal rate and regular rhythm. Heart sounds: No murmur heard. No friction rub. No gallop. Pulmonary: Breath sounds: Normal breath sounds. No wheezing or rales. Musculoskeletal: Right hip: No deformity or tenderness. Normal range of motion. Normal strength. Right lower leg: No edema. Left lower leg: No edema. Neurological: Mental Status: He is alert. Assessment and Plan 1. Hyperkalemia - ICD9: 276.7, ICD10: E87.5 (primary diagnosis) - Low potassium diet reviewed. - CKD progressing. Follow up with nephrology. 2. Other proteinuria - ICD9: 791.0, ICD10: R80.8 Dose increased. - EMPAGLIFLOZIN 25 MG TABLET 3. Essential hypertension - ICD9: 401.9, ICD10: I10 - Worsening control - Continue current medications - FUROSEMIDE 40 MG TABLET. Take one(1) tablet every other day. Refilled. 4. Type 2 diabetes mellitus with stage 4 chronic kidney disease, with long-term current use of insulin (HCC) - ICD9: 250.40, 585.4, V58.67, ICD10: E11.22, N18.4, Z79.4 - Worsening control - Continue current medications - EMPAGLIFLOZIN 25 MG TABLET. Dose increased. Discussed medication dosage, usage, goals of therapy, and side effects. 5. Localized, primary osteoarthritis - ICD9: 715.10, ICD10: M19.91 - Continue TOPICALS. Do not use NSAID. Jesse Glover MD documented in this encounter [facility] 11-23-2024 Telephone encounter Note Patient returns call and provider message reviewed. Hospital is [facility] in [place]. Call placed to hospital and requested Medical Records. Medical Records to be faxed to [phone]. Karina Lopez RN [facility] 11-23-2024 Miscellaneous Notes Patient returns call and provider message reviewed. Hospital is [facility] in [place]. Call placed to hospital and requested Medical Records. Medical Records to be faxed to [phone]. Karina Lopez RN Left message for patient to call back speak to nurse. Please verify if ER is bozrah will need to request records. Potassium lab can be discussed on 11/26 for velia Solorio MA Pt is scheduled for ER f/u 6/2 for low potassium. Pt is requesting if he can get lab order for potassium prior to appt. Please advise. Thank you documented in this encounter [facility] 11-23-2024 Telephone encounter Note Left message for patient to call back speak to nurse. Please verify if ER is bozrah will need to request records. Potassium lab can be discussed on 11/26 for velia Solorio MA [facility] 11-23-2024 Telephone encounter Note Pt is scheduled for ER f/u 6/2 for low potassium. Pt is requesting if he can get lab order for potassium prior to appt. Please advise. Thank you [facility] 11-22-2024 Note [employer] Hematology Hyperkalemia Hyperkalemia occurs when the level of potassium in the blood is too high. Potassium is an important mineral (electrolyte) that helps the muscles and nerves function normally. It affects how the heart works, and it helps keep fluids and minerals balanced in the body. If there is too much potassium in your blood, it can affect your heart's ability to function normally. Potassium is normally removed (excreted) from the body by the kidneys. Hyperkalemia can result from various conditions. It can range from mild to severe. What are the causes? This condition may be caused by: ? Taking in too much potassium. This can happen if: ? You use salt substitutes. They contain large amounts of potassium. ? You take potassium supplements. ? You eat too many foods that are high in potassium if you have kidney disease. ? Excreting too little potassium. This can happen if: ? Your kidneys are not working properly. Kidney (renal) disease, including short-term or long-term renal failure, is a common cause of hyperkalemia. ? You are taking medicines that lower your excretion of potassium, such as CHANDANA inhibitors, angiotensin II receptor blockers (ARBs), or potassium-sparing diuretics, such as spironolactone. ? You have Derek's disease. ? You have a urinary tract blockage, such as kidney stones. ? You are on treatment to mechanically clean your blood (dialysis) and you skip a treatment. ? Your cells releasing a high amount of potassium into the blood. This can happen with: ? Injury to muscles (rhabdomyolysis) or other tissues. Most potassium is stored in your muscles. ? Severe black, injuries, or infections. ? Acidic blood plasma (acidosis). Acidosis can result from many diseases, such as uncontrolled diabetes. What increases the risk? You are more likely to develop this condition if you have alcoholism or if you use drugs heavily. What are the signs or symptoms? In many cases, there are no symptoms. However, when your potassium level becomes high enough, you may have symptoms such as: ? An irregular or very slow heartbeat. ? Nausea. ? Tiredness (fatigue). ? Confusion. ? Tingling of your skin or numbness of your hands or feet. ? Muscle cramps. ? Muscle weakness. ? Not being able to move (paralysis). How is this diagnosed? This condition may be diagnosed based on: ? Your symptoms and medical history. Your health care provider will ask about your use of wejk-ros-yffusnu and prescription medicines. ? A physical exam. ? Blood tests. ? An electrocardiogram (ECG). How is this treated? Treatment depends on the cause and severity of your condition. Treatment may need to be done in the hospital setting. Treatment may include: ? Receiving a sugar solution (glucose) through an IV along with insulin to shift potassium out of your blood and into your cells. ? Taking a medicine called albuterol to shift potassium out of your blood and into your cells. ? Taking medicines to remove the potassium from your body. ? Having dialysis to remove the potassium from your body. ? Taking calcium to protect your heart from the effects of high potassium, such as irregular rhythms (arrhythmias). Follow these instructions at home: ? Take ftlh-dms-ovvkoya and prescription medicines only as told by your health care provider. ? Do not take any supplements, natural food products, herbs, or vitamins without reviewing them with your health care provider. Certain supplements and natural food products contain high amounts of potassium. ? If you drink alcohol, limit how much you have as told by your health care provider. ? Do not use illegal drugs. If you need help quitting, ask your health care provider. ? If you have kidney disease, you may need to follow a low-potassium diet. A dietitian can help you learn which foods have high or low amounts of potassium. ? Keep all follow-up visits. This is important. Contact a health care provider if: ? You have an irregular or very slow heartbeat. ? You feel light-headed. ? You feel weak. ? You are nauseous. ? You have tingling or numbness in your hands or feet. Get help right away if: ? You have shortness of breath. ? You have chest pain or discomfort. ? You faint. ? You have muscle paralysis. These symptoms may be an emergency. Get help right away. Call 911. ? Do not wait to see if the symptoms will go away. ? Do not drive yourself to the hospital. Summary ? Hyperkalemia occurs when the level of potassium in your blood is too high. ? This condition may be caused by taking in too much potassium, excreting too little potassium, or releasing a high amount of potassium from your cells into your blood. ? Hyperkalemia can result from many underlying conditions, especially chronic kidney disease, or from taking certain medicines. ? Treatment of hyperkalemia may include medicine to shift potassium out of your blood (more content not included)... [facility] 11-22-2024 Telephone encounter Note Images from the original note were not included. spoke with the patient Haydee's message reviewed with the patient voiced an understanding and will proceed to the ED close to his home. Per Haydee Please call Mr Jeter potassium is way too high and he needs to go to ER to have it rechecked. In the meantime he should limit K foods [facility] 11-22-2024 Miscellaneous Notes Images from the original note were not included. spoke with the patient Haydee's message reviewed with the patient voiced an understanding and will proceed to the ED close to his home. Per Haydee Please call Mr Jeter potassium is way too high and he needs to go to ER to have it rechecked. In the meantime he should limit K foods documented in this encounter [facility] 11-22-2024 Instructions Haydee Christina, 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 - 11/22/2024 1:28 PM EDT We discussed your diabetes: - Your A1c is 6.4, which is well-controlled. Please continue your current diabetes management plan, including taking Jardiance as prescribed. - You mentioned obtaining Jardiance from [facility] due to cost. Please ensure it is from a legitimate pharmacy. Continue taking Jardiance as it has helped improve your kidney function and protein levels in your urine. - Your blood sugar this morning was 132, which is within a good range. Continue monitoring your blood sugar levels regularly. We discussed your blood pressure: - Your blood pressure at home is typically around 138/70, which is acceptable. At today s visit, it was slightly higher, likely due to the drive. - Continue taking your blood pressure medications as prescribed: furosemide every other day, losartan daily, and nifedipine 90 mg daily. - Please monitor your blood pressure at home and call me with a few readings before your next appointment with Dr. Saleem on the . If your readings remain in the 130s, no medication adjustments will be needed. We discussed your kidney health: - Your kidney function is stable. Protein levels in your urine have improved, likely due to Jardiance. - You have mild anemia (hemoglobin 12.5), which is consistent with your kidney condition. No further action is needed unless symptoms worsen. We discussed your vitamin levels: - Your vitamin D level was normal when last checked in February. Insurance only covers this test once a year, so it was not rechecked today. - Please avoid taking excessive vitamin D or other supplements, as high levels can be harmful. Let me know if Dr. Saleem recommends any changes to your vitamins. We discussed your general health: - You are feeling well overall, with no chest pain, shortness of breath, or urinary issues. Continue drinking about 60 ounces of fluids daily and maintaining your current diet. - Your recent flu has resolved, and you are recovering well. Follow-up instructions: - Call me next with your home blood pressure readings and an update on your appointment with Dr. Saleem. - I will call you with the remaining lab results once they are available. Please continue your current medications and care plan. Let me know if you experience any new or worsening symptoms. Please bring a complete list of your [...] improve our service to you by calling [phone] You may be receiving a survey regarding your care today. If you do, please take a few minutes to fill it out and send it back. It would be greatly appreciated. documented in this encounter [facility] 11-22-2024 History of Present illness Narrative Images from the original note were not included. [facility] DEPARTMENT OF KIDNEY MEDICINE CHIEF COMPLAINT: Follow up for CKD. Data copied from my previous encounters and was imported as a reference for the current encounter. All information in this note has been verified. Data or information that hasn't changed was retained from previous notes and the rest was revised or updated where relevant. Recording using [employer] software for draft documentation of the visit was discussed with the patient/authorized resources representative; all questions welcomed and answered. Patient/authorized resources representative agreed to proceed HPI: Pt is an 79 year old male being seen today in for CKD3b with proteinuria likely in the setting of diabetic nephropathy and hypertensive nephrosclerosis. PMH: anemia, BPH, hyperlipidemia, hyperkalemia and glaucoma. Esvin is a 79-year-old male with a history of DM, HTN, and CKD, presenting for follow-up. sEvin reports feeling generally well, with no current issues. He mentions a recent episode of flu-like symptoms 3 weeks ago, which he believes he contracted from his . Both have since recovered. He denies any current chest pain, dyspnea, or urinary issues. He reports good appetite and is eating well at home, sometimes cooking meals himself. He drinks approximately 60 ounces of fluids daily, mostly avoiding soda except for castro juju or 7-Up when feeling nauseated. He denies consuming estephania like Coke or Pepsi. He monitors his BP at home, with recent readings around 138/70 mmHg and a pulse of 70 bpm. He takes furosemide every other day, and losartan and nifedipine 90 mg daily, with all medications taken this morning around 8310-9301. He uses a portable BP machine with a cuff placed on the upper arm. He plans to provide additional BP readings after his upcoming appointment with Dr. Glover on the . He continues to use the Freestyle Daija 2 for glucose monitoring, with a planned upgrade to the Freestyle Daija 3. His blood glucose this morning was 132 mg/dL. His most recent HbA1c was 6.4%. He is under the care of a lead refiner for diabetes management and reports stable control over the past three years. He is currently taking Jardiance, which he obtains from [facility] due to cost considerations. He inquires about using the same prescription for future purchases. He is also taking vitamin D and B supplements, as recommended by his lead refiner and Dr. Glover. His last vitamin D level was normal in February, but his parathyroid hormone level was slightly elevated. He mentions a family history of kidney issues, with his son having one kidney and a history of dialysis, and his nephew recently receiving a kidney transplant after 9 years. He denies any current leg issues. 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 Went to [facility]. Family in [place] Son has one kidney congenitally- was on dialysis for RONIT Nephew had kidney transplant recently Problem List Reviewed PAST MEDICAL HISTORY Diagnosis Date Anemia in stage 3 chronic kidney disease ([facility]) Background diabetic retinopathy(362.01) 09/18/2008 [facility] eye. 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 Tubular adenoma of colon 08/10/2016 Type II or unspecified type diabetes mellitus with ophthalmic manifestations, uncontrolled(250.52) 09/18/2008 iddm Unspecified asthma(493.90) Vitreous hemorrhage ([facility]) 04/19/2018 Added automatically from request for surgery [id number] Vitreous hemorrhage of left eye ([facility]) Current Outpatient Medications on File Prior to Visit Medication Sig meclizine (ANTIVERT) 25 mg tab Take 1 tablet by mouth three times daily as needed. flash glucose sensor (Storm Tactical ProductsSTYLE DAIJA 14 DAY SENSOR) kit 1 Each every 2 weeks. Diagnoses: ICD10: E11.22, N18.32, Z79.4; E11.42, Z79.4. Sig: Check glucose 4 or more times per day. Patient on multiple insulin doses. Insulin [place], Disposable, (1ST TIER UNIFINE PENTIPS) 31 gauge [...] and 4 PM flash glucose scanning reader (SpreadShout DAIJA 14 DAY READER) Diagnoses: ICD10: E11.22, N18.32, [...] pain or pressure, palpitations, dizziness, lightheadedness. Denies COBIAN. Denies edema. Wears light compression stockings. Respiratory: denies cough Genitourinary: denies frequency, pink or bloody urine or dysuria. Has 1-2 episodes of nocturia per night Does not interfere with sleep. Does feel he empties his bladder fully. Follows with urology PHYSICAL EXAM BP: BP 142/66 Pulse 64 Wt 89.4 kg (197 lb) BMI 29.31 kg/m BP - standardized method Pulse 1 BP #1: 150/67 Pulse #1: 68 beats/min 2 BP #2 : 144/65 Pulse #2 : 63 beats/min 3 BP #3 : 133/65 Pulse #3 : 64 beats/min Average Average BP: 142/66 Average Pulse: 64 beats/min Orthostatic vitals Supine Sitting Standing BP cuff location BP cuff size Comments for BP values First BP (right) First BP (left) Constitutional: No acute distress, Responsive, Normal habitus, and Well-nourished Cardiovascular:No peripheral edema Regular rate and rhythm, normal S1 and S2, no murmurs Respiratory: Normal respiratory effort. Extremities: No peripheral edema Neurological: Alert and oriented x3. Psychiatric: Alert and oriented x self, place, time, and setting Normal mood/affect Very pleasant. Works hard to stay healthy Diagnostic tests reviewed for today's visit Labs: Labs are pending from today Latest Ref Rng & Units 10/10/2023 03/05/2024 07/19/2024 RENAL KIDNEY STONE FLOWSHEET EGFR, All Other >=60 mL/min/1.73m 28 33 25 Creatinine 0.73 - 1.22 mg/dL 2.32 2.03 2.54 BUN 9 - 24 mg/dL 33 29 35 Sodium 136 - 144 mmol/L 141 140 138 Potassium 3.7 - 5.1 mmol/L 5.4 5.0 5.4 Chloride 98 - 107 mmol/L 108 109 106 CO2 22 - 30 mmol/L 23 21 24 Glucose 74 - 99 mg/dL 155 157 206 Calcium 8.5 - 10.2 mg/dL 9.3 8.8 9.3 Phosphorus 2.7 - 4.8 mg/dL 3.9 3.4 4.8 Albumin 3.9 - 4.9 g/dL 4.5 4.3 4.5 WBC 3.70 - 11.00 k/uL 4.49 5.05 4.64 HGB 13.0 - 17.0 g/dL 12.8 13.1 12.5 HCT 39.0 - 51.0 % 40.1 41.2 39.1 PLT 150 - 400 k/uL 279 276 298 PTH Intact 15 - 65 pg/mL 101 Vitamin D25 Hydroxy 31.0 - 80.0 ng/mL 48.6 Urine protein creatinine ratio 0.29 on 07/19/2024 Albumin creatinine ratio 141 on 09/22/2021 HgbA1c 6.4 on 10/31/2024 Uric acid 8.1 on 09/14/2019 Kidney imagin03/28/17 kidney ultrasound. Per radiology report: IMPRESSION: No hydronephrosis. RESULT: The right kidney measures approximately 11.2 cm. The left kidney measures approximately 12 cm. There is no hydronephrosis or perinephric fluid collection. Prevoid urinary bladder volume is 3 cc. There is no postvoid residual. Ureteral jets were not assessed on this examination. 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 PMH: anemia, BPH, hyperlipidemia, hyperkalemia and glaucoma. CKD Stage 4 with proteinuria likely in the setting of diabetic nephropathy and hypertensive nephrosclerosis. Creatinine 2.54 on 07/19/2024 Above baseline -Her baseline serum creatinine around 1.9 mg/dL- trending up since Mar 2022- now 2.1- 2.3mg/dL -Abnormal creatinine since: progressively since 2008 Urine protein creatinine ratio 0.29 on 07/19/2024 Albumin creatinine ratio 141 on 09/22/2021 On ARB On Jardiance Compliment and serology negative in May 2019 HTN/Volume: - decent control on current regimen - better at home -Volume: euvolemic -Currently on LOSARTAN 50 MG TABLET Take 1 tablet by mouth once daily. NIFEDIPINE ER 90 MG TABLET,EXTENDED RELEASE 24 HR Take 1 tablet by mouth once daily. Metabolic/electrolytes: Hx hyperkalemia K+- 5.4 on 07/19/2024- waiting on update Co2- 24 on 07/19/2024 Na+- 138 on 07/19/2024 Anemia: -Hgb- 12.5 on 11/22/2024 -denies overt loss -continue to monitor along with iron stores to assess for need of ANALISA. Metabolic Bone: -Ca+ 9.3 on 07/19/2024 -Phos: 4.8 on 07/19/2024 -Vitamin D: 48.6 on 03/05/2024 -PTH: 101 on 03/05/2024- above goal- watch for now CV/Lipids: -hx of hyperlipidemia -on statin -recommend LDL goal of <100 to prevent progression of CKD. DM: HgbA1c 6.4 on 10/31/2024- controlled -follow up with PCP/endo PLAN: We discussed your diabetes: - Your A1c is 6.4, which is well-controlled. Please continue your current diabetes management plan, including taking Jardiance as prescribed. - You mentioned obtaining Jardiance from [facility] due to cost. Please ensure it is from a legitimate pharmacy. Continue taking Jardiance as it has helped improve your kidney function and protein levels in your urine. - Your blood sugar this morning was 132, which is within a good range. Continue monitoring your blood sugar levels regularly. We discussed your blood pressure: - Your blood pressure at home is typically around 138/70, which is acceptable. At today s visit, it was slightly higher, likely due to the drive. - Continue taking your blood pressure medications as prescribed: furosemide every other day, losartan daily, and nifedipine 90 mg daily. - Please monitor your blood pressure at home and call me with a few readings before your next appointment with Dr. Saleem on the . If your readings remain in the 130s, no medication adjustments will be needed. We discussed your kidney health: - Your kidney function is stable. Protein levels in your urine have improved, likely due to Jardiance. - You have mild anemia (hemoglobin 12.5), which is consistent with your kidney condition. No further action is needed unless symptoms worsen. We discussed your vitamin levels: - Your vitamin D level was normal when last checked in February. Insurance only covers this test once a year, so it was not rechecked today. - Please avoid taking excessive vitamin D or other supplements, as high levels can be harmful. Let me know if Dr. Saleem recommends any changes to your vitamins. We discussed your general health: - You are feeling well overall, with no chest pain, shortness of breath, or urinary issues. Continue drinking about 60 ounces of fluids daily and maintaining your current diet. - Your recent flu has resolved, and you are recovering well. Follow-up instructions: - Call me next with your home blood pressure readings and an update on your appointment with Dr. Saleem. - I will call you with the remaining lab results once they are available. Please continue your current medications and care plan. Let me know if you experience any new or worsening symptoms. - I will call you when the remaining labs are back -Discussed need for good diabetes, blood pressure and cholesterol control to prevent disease progression -Recommend BP goal of 130/80 or less. Please contact the office if your blood pressure is less than 110/70 or higher than 150/90. If you are consistently 140/70 or more please let us know and we can increase medications -Follow low salt diet. (1/2 tsp salt) [...] decreased kidney function. -Increase activity as tolerated. Return in 4 months with me and labs prior Haydee Christina CNP I spent a total of 38 minutes on the date of the service which included preparing to see the patient, [id number] patient care, completing clinical documentation, performing a medically appropriate examination, counseling and educating the patient/family/caregiver and ordering medications, tests, or procedures. Patient will require on going follow up appointments to manage chronic kidney disease documented in this encounter [facility] 11-22-2024 Note [facility] 11-20-2024 Note [facility] 11-20-2024 History of Present illness Narrative FOLLOW UP PODIATRIC OFFICE VISIT Chief Complaint: This 79 year old who presents for follow up:callus of right hallux Patient presents to clinic for follow-up callus of right hallux Scheduled to receive custom orthotics. Feels very well No other complaints. PAIN EVALUATION No data found in the last 1 encounters. Hemoglobin A1C (POCT) Date Value Ref Range Status 10/31/2024 6.4 (A) 4.3 - 5.6 % Final Comment: Location:[facility], [address] [place] [address], [facility] Point of care (POC) Hemoglobin A1c (HGBA1C) [...] specific diabetes management situations: The POC device barometers calibrator provides a normal range of 4.2% to 6.5% for the HGBA1C POC test. However, the [place] [employer] guidelines indicate that patients with [...] kidney disease (HCC) Background diabetic retinopathy(362.01) 09/18/2008 [facility]. 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 Tubular adenoma of colon 08/10/2016 Type II or unspecified type diabetes mellitus with ophthalmic manifestations, uncontrolled(250.52) 09/18/2008 iddm Unspecified asthma(493.90) Vitreous hemorrhage ([facility]) 04/19/2018 Added automatically from request for surgery [id number] Vitreous hemorrhage of left eye ([facility]) Current Outpatient Medications Medication Sig insulin glargine (LANTUS SOLOSTAR U-100 INSULIN) 100 unit/mL (3 mL) Inject subcutaneously 23 units daily in the AM insulin lispro (HUMALOG KWIKPEN INSULIN) 100 unit/mL Inject subcutaneously 2 units breakfast, 3 units lunch, 3 units dinner plus SS up to 20 units daily Insulin [place], Disposable, (1ST TIER UNIFINE PENTIPS) 31 gauge x 3/16 Use as directed 4 times a day. Dx: E11.65 meclizine (ANTIVERT) 25 mg tab Take 1 tablet by mouth three times a day as needed. empagliflozin (JARDIANCE) 10 mg tablet Take 1 tablet by mouth daily with breakfast. pravastatin (PRAVACHOL) 80 mg tablet Take 1 tablet by mouth once daily. gabapentin (NEURONTIN) 300 mg capsule Take 1 capsule by mouth three times a day for 180 days. flash glucose sensor (FREESTYLE DAIJA 2 SENSOR) kit Use one sensor every 14 days, IDDM, E11.42 losartan (COZAAR) 50 mg tablet Take 1 tablet by mouth once daily. NIFEdipine ER (PROCARDIA XL) 90 mg 24 hr tablet Take 1 tablet by mouth once daily. dorzolamide-timolol (COSOPT) 22.3-6.8 mg/mL ophthalmic solution Use 1 Drop in both eyes two times a day. latanoprost (XALATAN) 0.005 % ophthalmic solution INSTILL 1 DROP IN BOTH EYES DAILY AT BEDTIME rosuvastatin (CRESTOR) 40 mg tablet Take 1 tablet by mouth daily at bedtime. Blood Pressure Monitor (BLOOD PRESSURE KIT) 1 Each by VIA DEVICE route once daily. Please check your blood pressure once per day so we can see if we need to increase medications flash glucose scanning reader (SpreadShout DAIJA 2 READER) Use continuously to monitor glucose. Dx: Type 2 DM - Uncontrolled E11.65 Insulin: Yes blood sugar diagnostic (BLOOD GLUCOSE TEST) test strip Test blood sugar(s) 3 times daily. Dx: Type 2 DM - Uncontrolled E11.65 Insulin: Yes Lancets lancets Test blood sugar(s) 3 times daily. Dx: Type 2 DM - Uncontrolled E11.65 Insulin: Yes polyethylene glycol 3350 (MIRALAX) 17 gram/dose powder Take 17 g by mouth every other day. cholecalciferol (VITAMIN D) 1,000 unit tab tablet Take 1 tablet by mouth once daily. cyanocobalamin (VITAMIN B-12) 1,000 mcg tab Take 1 tablet by mouth once daily. aspirin(ECOTRIN LOW STRENGTH 81 MG TAB) Take by mouth. furosemide (LASIX) 40 mg tablet Take 1 tablet by mouth every other day. No current facility-administered medications for this visit. ALLERGIES Allergen Reactions Cortisone Other: See Comments [place] real hot, as if someone threw boiling water on him Latex Other: See Comments Zestril [Lisinopril] Intolerance ARF, hypokalemia PAST SURGICAL [...] OBJECTIVE: Constitutional: Pt is a well developed 79 year old male who is alert, oriented, [...] texture, turgor. No open lesions present. Callus is present to right hallux. No ulceration noted. Musculoskeletal/Orthopaedic: Patient has no pain to palpation of right foot [place] is noted to right foot. ASSESSMENT: (M76.829) Posterior tibial tendon dysfunction (primary encounter diagnosis) (L84) Callus of foot PLAN: Callus to right hallux reduced with dremmel and 15 blade. Continue with custom orthotic Follow-up in 1 month Call if any issues arise. Marsha Eric DPM Patient presents with: Left Foot - Established Patient, Follow Up, Callous Right Foot - Established Patient, Follow Up, Callous Patient presents for 4 week follow up for callus management of bilateral feet. ALEK 10/23/24 documented in this encounter [facility] 11-20-2024 Note [facility] 10-31-2024 History of Present illness Narrative Reason for Consultation: DM Type 2 Referring Physician: Jesse Glover MD [id number] [facility] [id number] HISTORY OF PRESENT ILLNESS Mr. West is a 79 year old male presenting here today for a follow up of DM Type 2. As I recall, he was initially diagnosed with diabetes 1989.He has been on insulin since 2008 LV 10/04/23 A1C today is 6.4 History of diabetes, hypertension, hyperlipidemia, retinopathy, peripheral neuropathy and CKD, BPH, ED, anemia, hyperparathyroidism, glaucoma Doing ok. Continues to have intermittent dizziness. Receives CGM supplies form [employer] Fhx of DM in mother, siblings, Maternal Aunt. Under the care of podiatry, nephrology Mild anemia, secondary hyperparathyroidism per nephrology Nephrology started SGLT2 Seeing cardiology in [place]. Denies hx of [place], CVA, stents, CABG/CAD Current diabetes regimen is as follows: lantus 23 units daily in AM jardiance 10 mg daily --per nephrology humalog 2 units breakfast, 3 units lunch, 3 units dinner plus SS --he adjusts the does and sometimes skips it If Blood Glucose (mg/dL) is < 150 Give 0 units 151-200 Give 2 unit 201-250 Give 3 units 251-300 Give 4 units >301 Give 5 units Previous DM medications: Glimepiride tradjenta--cost Metformin--renal disease humalog 75/25 he is checking his blood glucose continuously with Freestyle Daija 2 CGM he does bring a log book today for review. LDE Blood Sugar Frequency: Daija download (10/17/24 to 10/30/24) TIR 76% High 21% Very high 3% Low 0% Very low 0% Avg BG 160 GMI 7.1% BG is stable overnight. No low BG noted. More variable from 6 AM to 3 pm due to foods and outside activity (yard work). Hypoglycemia frequency: occasionally Hypoglycemia awareness: Yes Regarding [...] kidney disease) stage 3, GFR 30-59 ml/min ([facility]) 05/26/2017 [place] of [place] OD Depressive disorder, not elsewhere classified Erectile dysfunction associated with type 2 diabetes mellitus ([facility]) 07/09/2008 Esophageal reflux Essential hypertension, benign Hyperplasia [...] foot ulcer, limited to breakdown of skin ([facility]) 04/20/2022 Secondary hypertension due to renal disease 03/28/2018 Secondary renal hyperparathyroidism ([facility]) 04/18/2019 Shoulder pain 09/25/2008 Right. Tubular adenoma of colon 08/10/2016 Type II or unspecified type diabetes mellitus with ophthalmic manifestations, uncontrolled(250.52) 09/18/2008 iddm Unspecified asthma(493.90) Vitreous hemorrhage ([facility]) 04/19/2018 Added automatically from request for surgery [id number] Vitreous hemorrhage of left eye ([facility]) PAST SURGICAL HISTORY Procedure Laterality Date AVASTIN [...] 40 + years ago Vaping Use Vaping status: Never Used Substance Use Topics Alcohol use: Yes Comment: rarely, 2-3 glasses red wine per month Drug use: No Allergies As of Date: 10/31/2024 Allergen Noted Reaction CORTISONE 05/09/2009 Other: See Comments LATEX 08/10/2024 Other: See Comments ZESTRIL [LISINOPRIL] 01/29/2009 Intolerance Fully Assessed 10/31/2024 Current Outpatient Medications Medication Sig Dispense Refill meclizine (ANTIVERT) 25 mg tab Take 1 tablet by mouth three times a day as needed. 90 tablet 3 empagliflozin (JARDIANCE) 10 mg tablet Take 1 tablet by mouth daily with breakfast. 90 tablet 3 pravastatin (PRAVACHOL) 80 mg tablet Take 1 tablet by mouth once daily. gabapentin (NEURONTIN) 300 mg capsule Take 1 capsule by mouth three times a day for 180 days. 270 capsule 1 flash glucose sensor (FREESTYLE DAIJA 2 SENSOR) kit Use one sensor every 14 days, IDDM, E11.42 6 Each 3 insulin lispro (HUMALOG KWIKPEN INSULIN) 100 unit/mL Inject subcutaneously 2 units breakfast, 3 units lunch, 3 units dinner plus SS up to 20 units daily 15 mL 5 insulin glargine (LANTUS SOLOSTAR U-100 INSULIN) 100 unit/mL (3 mL) Inject subcutaneously 23 units daily in the AM 15 mL 5 losartan (COZAAR) 50 mg tablet Take 1 tablet by mouth once daily. 90 tablet 3 NIFEdipine ER (PROCARDIA XL) 90 mg 24 hr tablet Take 1 tablet by mouth once daily. 90 tablet 3 dorzolamide-timolol (COSOPT) 22.3-6.8 mg/mL ophthalmic solution Use 1 Drop in both eyes two times a day. 30 mL 11 latanoprost (XALATAN) 0.005 % ophthalmic solution INSTILL 1 DROP IN BOTH EYES DAILY AT BEDTIME 7.5 mL 11 rosuvastatin (CRESTOR) 40 mg tablet Take 1 tablet by mouth daily at bedtime. 90 tablet 3 Blood Pressure Monitor (BLOOD PRESSURE KIT) 1 Each by VIA DEVICE route once daily. Please check your blood pressure once per day so we can see if we need to increase medications 1 Kit 0 furosemide (LASIX) 40 mg tablet Take 1 tablet by mouth every other day. 45 tablet 1 flash glucose scanning reader (SpreadShout DAIJA 2 READER) Use continuously to monitor glucose. Dx: Type 2 DM - Uncontrolled E11.65 Insulin: Yes 1 Each 0 blood sugar diagnostic (BLOOD GLUCOSE TEST) test strip Test blood sugar(s) 3 times daily. Dx: Type 2 DM - Uncontrolled E11.65 Insulin: Yes 90 Strip 3 Insulin [place], Disposable, (1ST TIER UNIFINE PENTIPS) 31 gauge x 3/16 Use as directed 4 times a day. Dx: E11.65 400 Each 3 Lancets lancets Test blood sugar(s) 3 times daily. Dx: Type 2 DM - Uncontrolled E11.65 Insulin: Yes 100 Each 5 polyethylene glycol 3350 (MIRALAX) 17 gram/dose powder Take 17 g by mouth every other day. cholecalciferol (VITAMIN D) 1,000 unit tab tablet Take 1 tablet by mouth once daily. 30 tablet 3 cyanocobalamin (VITAMIN B-12) 1,000 mcg tab Take 1 tablet by mouth once daily. aspirin(ECOTRIN LOW STRENGTH 81 MG TAB) Take by mouth. 0 No current facility-administered medications for this visit. REVIEW OF SYSTEMS Review of Systems Respiratory: Negative for difficulty breathing. Cardiovascular: Negative for chest pain. Gastrointestinal: Negative for nausea, vomiting, diarrhea and constipation. PHYSICAL EXAMINATION BP 172/78 Pulse 70 Resp 16 Ht 174.6 cm (5' 8.74) Wt 92.4 kg (203 lb 11.3 oz) SpO2 99% BMI 30.31 kg/m2 Physical Exam Constitutional: Appearance: Normal appearance. Cardiovascular: Rate and Rhythm: Normal rate and regular rhythm. Pulmonary: Effort: Pulmonary effort is normal. Breath sounds: Normal breath sounds. Skin: General: Skin is warm and dry. Neurological: Mental Status: He is alert and oriented to person, place, and time. Psychiatric: Mood and Affect: Mood normal. Behavior: Behavior normal. Seeing podiatry DATA Creatinine Date Value Ref Range Status 07/19/2024 2.54 (H) 0.73 - 1.22 mg/dL Final Hemoglobin A1C (%) Date Value 09/03/2020 10.7 Hemoglobin A1C (POCT) (%) Date Value 06/12/2024 6.5 ) No components found for: URINEALBUMIN Cholesterol, Total (mg/dL) Date Value 06/11/2024 115 09/03/2020 175 HDL Cholesterol (mg/dL) Date Value 06/11/2024 50 09/03/2020 47 LDL Cholesterol, Calculated (mg/dL) Date Value 06/11/2024 49 09/03/2020 97 Triglyceride (mg/dL) Date Value 06/11/2024 78 09/03/2020 156 IMPRESSION: Mr. 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 Retinopathy monitored/managed per retinal specialist/freight rate specialist Plan: HEMOGLOBIN A1C (POC), insulin glargine (LANTUS SOLOSTAR U-100 INSULIN) 100 unit/mL (3 mL), insulin lispro (HUMALOG KWIKPEN INSULIN) 100 unit/mL, Insulin [place], Disposable, (1ST TIER UNIFINE PENTIPS) 31 gauge x 3/16 Call [facility] and advise them you want to upgrade to Freestyle daija 3 plus sensors *you will need receive and sensors Continue lantus 23 units in the AM. Continue jardiance per nephrology Continue humalog Follow up in 6 months (E11.42, Z79.4) Type 2 diabetes mellitus with diabetic polyneuropathy, with long-term current use of insulin (HCC) Comment: Glycemic control is overall stable. Neuropathy is monitored per podiatry Plan: HEMOGLOBIN A1C (POC), insulin glargine (LANTUS SOLOSTAR U-100 INSULIN) 100 unit/mL (3 mL), insulin lispro (HUMALOG KWIKPEN INSULIN) 100 unit/mL, Insulin [place], Disposable, (1ST TIER UNIFINE PENTIPS) 31 gauge x 3/16 Call [facility] and advise them you want to upgrade to Freestyle daija 3 plus sensors *you will need receive and sensors Continue lantus 23 units in the AM. Continue jardiance per nephrology Continue humalog Follow up in 6 months (E11.22, N18.30, Z79.4) Type 2 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 disease, with long-term current use of insulin, unspecified whether stage 3a or 3b CKD (HCC) Comment: Glycemic control is overall stable. CKD managed per nephrology. He is on SGLT2 and ARB Plan: HEMOGLOBIN A1C (POC), insulin glargine (LANTUS SOLOSTAR U-100 INSULIN) 100 unit/mL (3 mL), insulin lispro (HUMALOG KWIKPEN INSULIN) 100 unit/mL, Insulin [place], Disposable, (1ST TIER UNIFINE PENTIPS) 31 gauge x 3/16 Call [facility] and advise them you want to upgrade to Freestyle daija 3 plus sensors *you will need receive and sensors Continue lantus 23 units in the AM. Continue jardiance per nephrology Continue humalog Follow up in 6 months (E11.649) Hypoglycemia due to type 2 diabetes mellitus (HCC) Comment/Plan: continue CGM. Ok to adjust humalog per activity (I10) Hypertension goal BP (blood pressure) < 140/90 Comment/Plan: Managed per PCP/nephrology (E78.5) Hyperlipidemia, unspecified hyperlipidemia type Comment: taking pravastatin Plan:managed per PCP Medical Decision Making: Level: 4 - Moderate Chanda Phillips, MSN, APPLICATIONS PACKAGER, JAVA WEB USER INTERFACE DEVELOPER-C, CDCES Endocrinology [facility] [place] [address] Fax: documented in this encounter [facility] 10-31-2024 Note [facility] 10-31-2024 Instructions Chanda Phillips APRN.CNP - 10/31/2024 11:00 AM EDT Call [facility] and advise them you want to upgrade to [employer] daija 3 plus sensors *you will need receive and sensors Continue lantus 23 units in the AM. Continue jardiance per nephrology Continue humalog Follow up in 6 months Chanda Phillips, MSN, APPLICATIONS PACKAGER, JAVA WEB USER INTERFACE DEVELOPER-C, [facility] Endocrinology [facility]/[address] [place] [address] Fax: documented in this encounter [facility] 10-31-2024 Note HNO ID: [id number] Author: SONYA DOCKERY MA Service: ? Author Type: [place] Type: Procedures Filed: 10/31/2024 11:55 Note Text: [facility] 10-31-2024 Procedure note Procedure(s): EXTERNAL MASTIC FLOOR LAYER, CGM SYS Images from the original note were not included. [facility] 10-31-2024 Procedure note Procedure(s): EXTERNAL MASTIC FLOOR LAYER, CGM SYS Images from the original note were not included. documented in this encounter [facility] 10-23-2024 Note [facility] 10-23-2024 History of Present illness Narrative Billy Carpio is a 79-year-old male with a history of diabetes mellitus, presenting for follow-up of callus formation on the feet. Callus Formation: - Regular follow-up every 4 weeks for callus management. - Noted improvement in callus size compared to previous visits. - Previous orthotic device made in 2012 was lost; awaiting new orthotic device. - Wears tennis shoes with heavy arch support and hiking boots to protect feet. - Denies need for nail trimming today. Musculoskeletal: (+) foot callus (right foot) PAST MEDICAL HISTORY Diagnosis Date Anemia in stage 3 chronic kidney disease ([facility]) Background diabetic retinopathy(362.01) 09/18/2008 [facility] eye. 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 Tubular adenoma of colon 08/10/2016 Type II or unspecified type diabetes mellitus with ophthalmic manifestations, uncontrolled(250.52) 09/18/2008 iddm Unspecified asthma(493.90) Vitreous hemorrhage ([facility]) 04/19/2018 Added automatically from request for surgery [id number] Vitreous hemorrhage of left eye ([facility]) Current Outpatient Medications Medication Sig Dispense Refill meclizine (ANTIVERT) 25 mg tab Take 1 tablet by mouth three times a day as needed. 90 tablet 3 empagliflozin (JARDIANCE) 10 mg tablet Take 1 tablet by mouth daily with breakfast. 90 tablet 3 pravastatin (PRAVACHOL) 80 mg tablet Take 1 tablet by mouth once daily. gabapentin (NEURONTIN) 300 mg capsule Take 1 capsule by mouth three times a day for 180 days. 270 capsule 1 flash glucose sensor (FREESTYLE DAIJA 2 SENSOR) kit Use one sensor every 14 days, IDDM, E11.42 6 Each 3 insulin lispro (HUMALOG KWIKPEN INSULIN) 100 unit/mL Inject subcutaneously 2 units breakfast, 3 units lunch, 3 units dinner plus SS up to 20 units daily 15 mL 5 insulin glargine (LANTUS SOLOSTAR U-100 INSULIN) 100 unit/mL (3 mL) Inject subcutaneously 23 units daily in the AM 15 mL 5 losartan (COZAAR) 50 mg tablet Take 1 tablet by mouth once daily. 90 tablet 3 NIFEdipine ER (PROCARDIA XL) 90 mg 24 hr tablet Take 1 tablet by mouth once daily. 90 tablet 3 dorzolamide-timolol (COSOPT) 22.3-6.8 mg/mL ophthalmic solution Use 1 Drop in both eyes two times a day. 30 mL 11 latanoprost (XALATAN) 0.005 % ophthalmic solution INSTILL 1 DROP IN BOTH EYES DAILY AT BEDTIME 7.5 mL 11 rosuvastatin (CRESTOR) 40 mg tablet Take 1 tablet by mouth daily at bedtime. 90 tablet 3 Blood Pressure Monitor (BLOOD PRESSURE KIT) 1 Each by VIA DEVICE route once daily. Please check your blood pressure once per day so we can see if we need to increase medications 1 Kit 0 furosemide (LASIX) 40 mg tablet Take 1 tablet by mouth every other day. 45 tablet 1 flash glucose scanning reader (FREESTYLE DAIJA 2 READER) Use continuously to monitor glucose. Dx: Type 2 DM - Uncontrolled Insulin: Yes 1 Each 0 blood sugar diagnostic (BLOOD GLUCOSE TEST) test strip Test blood sugar(s) 3 times daily. Dx: Type 2 DM - Uncontrolled Insulin: Yes 90 Strip 3 Insulin [place], Disposable, (1ST TIER UNIFINE PENTIPS) 31 gauge x 3/16 Use as directed 4 times a day. Dx: E11. 400 Each 3 Lancets lancets Test blood sugar(s) 3 times daily. Dx: Type 2 DM - Uncontrolled Insulin: Yes 100 Each 5 polyethylene glycol 3350 (MIRALAX) 17 gram/dose powder Take 17 g by mouth every other day. cholecalciferol (VITAMIN D) 1,000 unit tab tablet Take 1 tablet by mouth once daily. 30 tablet 3 cyanocobalamin (VITAMIN B-12) 1,000 mcg tab Take 1 tablet by mouth once daily. aspirin(ECOTRIN LOW STRENGTH 81 MG TAB) Take by mouth. 0 No current facility-administered medications for this visit. ALLERGIES Allergen Reactions Cortisone Other: See Comments [place] real hot, as if someone threw boiling water on him Latex Other: See Comments Zestril [Lisinopril] Intolerance ARF, hypokalemia Objective There were no vitals taken for this visit. - Cardiovascular: DP and PT pulses palpable bilaterally; capillary refill <5 seconds. - Skin: Warm temperature, hair growth present; no open sores noted bilaterally. - Neurological: Protective sensation intact bilaterally. - Musculoskeletal: - Right Foot: Small degree of callus formation along the medial aspect of the talonavicular joint and plantar aspect of the hallux. - Left Foot: Small degree of callus formation along the plantar lateral aspect of the fifth metatarsal base. - Toenails 1-5 bilaterally of normal length. Imaging: (09/25/2024) X-rays: Significant flattening of the right foot with forefoot abduction and hindfoot valgus. Arthritis noted at the right talonavicular joint. Labs: (06/12/2024) Hemoglobin A1c: 6.5 1. Posterior tibial tendon dysfunction (M76.829) 2. Pes planus of both feet (M21.41) - X-rays from September 25, 2024, show significant flattening of the right foot with forefoot abduction and hindfoot valgus; arthritis noted at the right talonavicular joint. - Discussed surgical option of significant hindfoot reconstruction versus conservative management with a prosthetic device for support. - Patient prefers conservative management due to age. - Advised wearing shoes with good arch support to reduce stress on the feet. 3. Other diabetic neurological complication associated with type 2 diabetes mellitus (HCC) (E11.49) - Hemoglobin A1c on June 12, 2024, was 6.5%. - Continue regular monitoring of blood glucose levels. 4. Callus of foot (L84) - Small degree of callus formation noted along the plantar lateral aspect of the fifth metatarsal base of the left foot, the medial aspect of the right talonavicular joint, and the plantar aspect of the right hallux. - callus filed down with dremmel - Advised patient to continue using lotion to maintain skin hydration. - Scheduled follow-up in 4-5 weeks for callus management. Attestation Recording using [employer] software for draft documentation of the visit was discussed with the patient/authorized resources representative; all questions welcomed and answered. Patient/authorized resources representative agreed to proceed Marsha Eric DPM Patient presents with: Right Foot - Follow Up AMB ROOMING INTAKE FLOWSHEET DATA Patient states he is here for follow up callous right foot. Blood sugar this morning was 142. documented in this encounter [facility] 10-23-2024 Instructions Marsha Eric - 10/23/2024 1:21 PM EDT Diabetes Foot Care Instructions When you [...] it. Apply a bandage and wear a different pair of shoes. Take Care of Your Toenails Cut toenails after bathing, when they are soft. Cut toenails straight across and smooth with a nail file. Avoid cutting into the corners of toes. Do not cut cuticles. If you have neuropathy (or decreased sensation in your feet) a access clerk should always cut your toenails. Be Careful [...] make sure there are no foreign objects or rough areas. Avoid tight socks. Wear natural-fiber socks [...] Go to your health care provider or access clerk to treat these conditions. documented in this encounter [facility] 10-23-2024 Note [facility] 10-15-2024 Telephone encounter Note Prescription Refill Information The patient has been identified by name and date of : Yes Caregiver verified no other encounters exist for this prescription request: Yes Caregiver confirmed with patient/requestor that no other refills are due, in the near future, with this provider at this time: Yes The last office visit in the department: 06/12/24 Does the patient have a future office visit with this provider/department: No Requested Prescriptions Pending Prescriptions Disp Refills promethazine (PHENERGAN) 25 mg tablet 20 tablet 0 Sig: Take 1 tablet by mouth every 6 hours as needed for nausea/vomiting for up to 7 days. Mery Crane LPN October 15, 2024 11:53 AM [facility] 10-15-2024 Miscellaneous Notes Prescription Refill Information The patient has been identified by name and date of : Yes Caregiver verified no other encounters exist for this prescription request: Yes Caregiver confirmed with patient/requestor that no other refills are due, in the near future, with this provider at this time: Yes The last office visit in the department: 06/12/24 Does the patient have a future office visit with this provider/department: No Requested Prescriptions Pending Prescriptions Disp Refills promethazine (PHENERGAN) 25 mg tablet 20 tablet 0 Sig: Take 1 tablet by mouth every 6 hours as needed for nausea/vomiting for up to 7 days. Mery Crane LPN October 15, 2024 11:53 AM Patient requesting medication that is promethazine (PHENERGAN) 25 mg tablet () Patient last seen: 06-12-24 Future appt scheduled: no PHARMACY: No[facility]ier documented in this encounter [facility] 10-15-2024 Telephone encounter Note Prescription Refill Information The patient has been identified by name and date of : Yes Caregiver verified no other encounters exist for this prescription request: Yes Caregiver confirmed with patient/requestor that no other refills are due, in the near future, with this provider at this time: Yes The last office visit in the department: 06-12-24 Does the patient have a future office visit with this provider/department: Yes Requested Prescriptions Pending Prescriptions Disp Refills meclizine (ANTIVERT) 25 mg tab 90 tablet 3 Sig: Take 1 tablet by mouth three times a day as needed. Mariza Cardona October 15, 2024 11:21 AM [facility] 10-15-2024 Miscellaneous Notes Prescription Refill Information The patient has been identified by name and date of : Yes Caregiver verified no other encounters exist for this prescription request: Yes Caregiver confirmed with patient/requestor that no other refills are due, in the near future, with this provider at this time: Yes The last office visit in the department: 06-12-24 Does the patient have a future office visit with this provider/department: Yes Requested Prescriptions Pending Prescriptions Disp Refills meclizine (ANTIVERT) 25 mg tab 90 tablet 3 Sig: Take 1 tablet by mouth three times a day as needed. Mariza Cardona October 15, 2024 11:21 AM documented in this encounter [facility] 10-15-2024 Telephone encounter Note Patient requesting medication that is promethazine (PHENERGAN) 25 mg tablet () Patient last seen: 06-12-24 Future appt scheduled: no PHARMACY: Noé Lanier [facility] 10-03-2024 Telephone encounter Note Patient notified of results and provider's instructions. Patient verbalizes understanding. Ledy Campbell LPN [facility] 10-03-2024 Miscellaneous Notes Patient notified of results and provider's instructions. Patient verbalizes understanding. Ledy Campbell LPN documented in this encounter [facility] 09-25-2024 Note [facility] 09-25-2024 History of Present illness Narrative FOLLOW UP PODIATRIC OFFICE VISIT Chief Complaint: This 79 year old who presents for follow up:pre-ulcerative callus of right hallux Patient presents to clinic for follow-up evaluation of right hallux. He has pre-ulcerative callus to right hallux that causes him pain. He does feel that debridement of callus does help with his pain. He is here for subsequent debridement. He has no other complaints. PAIN EVALUATION No data found in the last 1 encounters. Hemoglobin A1C (POCT) Date Value Ref Range Status 06/12/2024 6.5 (A) 4.3 - 5.6 % Final Comment: Location:[address], [address] Point of care (POC) Hemoglobin A1c (HGBA1C) [...] specific diabetes management situations: The POC device barometers calibrator provides a normal range of 4.2% to 6.5% for the HGBA1C POC test. However, the [place] [employer] guidelines indicate that patients with [...] kidney disease (HCC) Background diabetic retinopathy(362.01) 09/18/2008 [facility]. 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 Tubular adenoma of colon 08/10/2016 Type II or unspecified type diabetes mellitus with ophthalmic manifestations, uncontrolled(250.52) 09/18/2008 iddm Unspecified asthma(493.90) Vitreous hemorrhage ([facility]) 04/19/2018 Added automatically from request for surgery [id number] Vitreous hemorrhage of left eye ([facility]) Current Outpatient Medications Medication Sig empagliflozin (JARDIANCE) 10 mg tablet Take 1 tablet by mouth daily with breakfast. pravastatin (PRAVACHOL) 80 mg tablet Take 1 tablet by mouth once daily. gabapentin (NEURONTIN) 300 mg capsule Take 1 capsule by mouth three times a day for 180 days. flash glucose sensor (FREESTYLE DAIJA 2 SENSOR) kit Use one sensor every 14 days, IDDM, E11.42 insulin lispro (HUMALOG KWIKPEN INSULIN) 100 unit/mL Inject subcutaneously 2 units breakfast, 3 units lunch, 3 units dinner plus SS up to 20 units daily insulin glargine (LANTUS SOLOSTAR U-100 INSULIN) 100 unit/mL (3 mL) Inject subcutaneously 23 units daily in the AM losartan (COZAAR) 50 mg tablet Take 1 tablet by mouth once daily. NIFEdipine ER (PROCARDIA XL) 90 mg 24 hr tablet Take 1 tablet by mouth once daily. dorzolamide-timolol (COSOPT) 22.3-6.8 mg/mL ophthalmic solution Use 1 Drop in both eyes two times a day. latanoprost (XALATAN) 0.005 % ophthalmic solution INSTILL 1 DROP IN BOTH EYES DAILY AT BEDTIME rosuvastatin (CRESTOR) 40 mg tablet Take 1 tablet by mouth daily at bedtime. Blood Pressure Monitor (BLOOD PRESSURE KIT) 1 Each by VIA DEVICE route once daily. Please check your blood pressure once per day so we can see if we need to increase medications furosemide (LASIX) 40 mg tablet Take 1 tablet by mouth every other day. meclizine (ANTIVERT) 25 mg tab Take 1 tablet by mouth three times a day as needed. flash glucose scanning reader ([employer] DAIJA 2 READER) Use continuously to monitor glucose. Dx: Type 2 DM - Uncontrolled E11.65 Insulin: Yes blood sugar diagnostic (BLOOD GLUCOSE TEST) test strip Test blood sugar(s) 3 times daily. Dx: Type 2 DM - Uncontrolled E11.65 Insulin: Yes Insulin [place], Disposable, (1ST TIER UNIFINE PENTIPS) 31 gauge x 3/16 Use as directed 4 times a day. Dx: E11. Lancets lancets Test blood sugar(s) 3 times daily. Dx: Type 2 DM - Uncontrolled E11.65 Insulin: Yes polyethylene glycol 3350 (MIRALAX) 17 gram/dose powder Take 17 g by mouth every other day. cholecalciferol (VITAMIN D) 1,000 unit tab tablet Take 1 tablet by mouth once daily. cyanocobalamin (VITAMIN B-12) 1,000 mcg tab Take 1 tablet by mouth once daily. aspirin(ECOTRIN LOW STRENGTH 81 MG TAB) Take by mouth. No current facility-administered medications for this visit. ALLERGIES Allergen Reactions Cortisone Other: See Comments [place] real hot, as if someone threw boiling water on him Latex Other: See Comments Zestril [Lisinopril] Intolerance ARF, hypokalemia PAST SURGICAL [...] OBJECTIVE: Constitutional: Pt is a well developed 79 year old male who is alert, oriented, [...] texture, turgor. No open lesions present. Callus is present to right hallux. No underlying ulceration is noted Musculoskeletal/Orthopaedic: Patient has pain to palpation of right hallux Patient has severe flatfoot to right lower extremity. ASSESSMENT: Posterior tibial tendon dysfunction (primary encounter diagnosis) Pes planus of both feet Other diabetic neurological complication associated with type 2 diabetes mellitus (hcc) Callus of foot PLAN: Discussed pre-ulcerative callus of right hallux. This was sharply debrided with 15 blade, tissue nipper and dremmel today. Fortunately, no ulceration on exam. I do have concerns that this will likely be at risk for recurrent callus/ulceration due to severe flattening of right foot. I feel his flatfoot places increased pressure on right hallux. Discussed options for the flatfoot not limited to continued use of diabetic shoes and periodic debridement of callus vs rx for AFO vs surgical intervention for flatfoot. Patient is not interested in surgery. I am going to order an afo for right foot. Afo, a custom orthotic with brace is necessary as this patient suffers from a chronic hindfoot deformity that is leading to increased pressure in hallux. The increased pressure on hallux is leading to callus. I feel the afo will help to reduce pressure to the forefoot thereby helping to offload hallux. Afo was ordered. Will order xray of right foot Patient will benefit from follow-up every 4 weeks for callus debridement Diabetic education performed. Stressed the importance of avoiding barefoot walking, wearing good shoes and inspection of feet. Marsha Eric DPM AMB ROOMING INTAKE FLOWSHEET DATA Patient presents with: Left Foot - Established Patient, Follow Up, Diabetic Foot Care, Callous Right Foot - Established Patient, Follow Up, Diabetic Foot Care, Callous Ledy Campbell LPN documented in this encounter [facility] 09-25-2024 History of Present illness Narrative Radiology Service Progress Note PATIENT NAME: Esvin West Sr. DATE OF SERVICE: September 25, 2024 TIME: 2:06 PM PATIENT IDENTITY VERIFICATION COMPLETED USING TWO (2) IDENTIFIERS: Name and Date of confirmed by patient verbally. FALL SCREENING: Has the patient had 2 falls in the last year or 1 fall with injury or currently using an Ambulatory Assistive Device (Walker, Cane, Wheelchair, Crutches, etc.)? No PATIENT GENDER DATA: Assigned male at PATIENT RELEVANT IMPLANT DATA REVIEWED: Yes PATIENT PRESENTS WITH AN IMPLANTABLE OR ATTACHED METROLOGY SPECIALIST: No RADIOLOGY DEPARTMENT: General X-ray: Exam(s) Completed: Lower Extremity X-Ray(s): Foot, Right PERIPHERAL IV DATA: Not applicable SIGNED BY: RT Burt(R) September 25, 2024 2:06 PM documented in this encounter [facility] 09-25-2024 Note [facility] 09-25-2024 Instructions Marsha Eric - 09/25/2024 1:59 PM EDT Diabetes Foot Care Instructions When you [...] it. Apply a bandage and wear a different pair of shoes. Take Care of Your Toenails Cut toenails after bathing, when they are soft. Cut toenails straight across and smooth with a nail file. Avoid cutting into the corners of toes. Do not cut cuticles. If you have neuropathy (or decreased sensation in your feet) a access clerk should always cut your toenails. Be Careful [...] make sure there are no foreign objects or rough areas. Avoid tight socks. Wear natural-fiber socks [...] Go to your health care provider or access clerk to treat these conditions. documented in this encounter [facility] 09-25-2024 Note [facility] 09-20-2024 Telephone encounter Note I called patient and left a detailed message regarding prescription being sent to pharmacy. Haydee Christina APRN.CNP You7 minutes ago (12:27 PM) Done- thanks [facility] 09-20-2024 Miscellaneous Notes I called patient and left a detailed message regarding prescription being sent to pharmacy. Haydee Christina APRN.CNP You7 minutes ago (12:27 PM) Done- thanks Routing to Haydee Christina CNP. I did see a previous note that his insurance changed. I did call and speak with Esvin as well. He states that he was told there are no more refills. ALEK 07/23/24 [facility] states [facility] needs a new script for the empagliflozin (JARDIANCE) 10 mg tablet Take 1 tablet by mouth daily with breakfast. 90 tablet 3 ordered 07/23/2024 -- -- -- -- ORAL Summary: Take 1 tablet by mouth daily with breakfast. Print RX, Disp-90 tablet, R-3, Long-term Dx: 1. Other proteinuria 2. Type 2 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 disease, with long-term current use of insulin, unspecified whether stage 3a or 3b CKD (HCC) ReportDx Associated: Long-term: Start Date & Time: 07/23/2024Dose, Route, Frequency: 10 mg, ORAL, DAILY WITH BREAKFASTOrd/Sold: 07/23/2024 (O)Ordered On: 07/23/2024 Ordering Department: [facility] Authorized By: Haydee Christina APRN.RISK AND COMPLIANCE ANALYTICS DIRECTOR Order Details: Take 1 tablet by mouth daily with breakfast. Dispense: 90 tablet, Refills: 3 ordered Even though it states it has refills on they said it was cancelled please assist. documented in this encounter [facility] 09-20-2024 Telephone encounter Note Routing to Haydee Christina CNP. I did see a previous note that his insurance changed. I did call and speak with Esvin as well. He states that he was told there are no more refills. ALEK 07/23/24 [facility] 09-20-2024 Telephone encounter Note [facility] needs a new script for the empagliflozin (JARDIANCE) 10 mg tablet Take 1 tablet by mouth daily with breakfast. 90 tablet 3 ordered 07/23/2024 -- -- -- -- ORAL Summary: Take 1 tablet by mouth daily with breakfast. Print RX, Disp-90 tablet, R-3, Long-term Dx: 1. Other proteinuria 2. Type 2 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 disease, with long-term current use of insulin, unspecified whether stage 3a or 3b CKD (HCC) ReportDx Associated: Long-term: Start Date & Time: 07/23/2024Dose, Route, Frequency: 10 mg, ORAL, DAILY WITH BREAKFASTOrd/Sold: 07/23/2024 (O)Ordered On: 07/23/2024 Ordering Department: [facility] Authorized By: Haydee Christina APRN.RISK AND COMPLIANCE ANALYTICS DIRECTOR Order Details: Take 1 tablet by mouth daily with breakfast. Dispense: 90 tablet, Refills: 3 ordered Even though it states it has refills on they said it was cancelled please assist. [facility] 09-20-2024 Telephone encounter Note Patient calls and states that he switched insurance plans and needs medications to be sent to mail away pharmacy. Patient is unsure of which mail away pharmacy. Advised patient to give insurance a call back to see which mail away pharmacy medications need to be sent to and then give office a call back. Patient voiced understanding. Pham Scherer RN [facility] 09-20-2024 Miscellaneous Notes Patient calls and states that he switched insurance plans and needs medications to be sent to mail away pharmacy. Patient is unsure of which mail away pharmacy. Advised patient to give insurance a call back to see which mail away pharmacy medications need to be sent to and then give office a call back. Patient voiced understanding. Pham Scherer RN documented in this encounter [facility] 09-20-2024 Evaluation note Diagnosis Other proteinuria Type 2 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 disease, with long-term current use of insulin, unspecified whether stage 3a or 3b CKD (HCC) documented in this encounter [facility]03-13-2025 NoteDate of Procedure 09/06/2024. OCT Macula Interpretation Right Eye Normal without fluid. Findings include Negative for Intraretinal fluid. Left Eye Normal without fluid. Findings include Negative for Intraretinal fluid. Interval Change Right Eye Stable. Left Eye Stable.[id number] [facility] History of Present illness Narrative* Adia Finnegan MD - 09/06/2024 11:40 AM EDT Last seen 05/18 Reviewed note from nephrology from 07/23/24. No hyronephrosis. CKD3b. On jardiance, sugars doing well 1. Type 2, Insulin dependent Diabetes Mellitus - Hba1c = Hemoglobin A1C (%) Date Value 09/03/2020 10.7 Hemoglobin A1C (POCT) (%) Date Value 06/12/2024 6.5 - Stressed blood pressure and blood sugar control and close follow-up with PCP/lithographic printing machinist 2. Q Proliferative diabetic retinopathy Both Eyes - RIGHT: - s/p Panretinal laser photocoagulation #5 (last 08/29/14, 08/08/14, 10/04/13, 07/05/13, 04/05/13) - s/p Avastin #3 (last 04/19/18, 03/23/18, 02/17/17) - s/p Pars plana vitrectomy/EL (05/02/18) - OCT callahan Both Eyes - Since VA stable and IRF not affecting central vision, will continue to observe - LEFT: - s/p Panretinal laser photocoagulation #2 (07/12/13, 03/29/13) - s/p Phaco/PCIOL/PPV/MP/EL/FAx (11/16/16) - OCT dry - Both eyes are stable - Plan = Observe 4. Pseudophakia Both eyes - s/p Phaco/PCIOL by Dr Ciaran Long right eye - Combined case as above 11/16/16 left 5. Iris Coloboma Right eye 6. Primary open angle glaucoma Both Eyes - IOP ok - Followed by Dr. Cohn - Continue timolol and latanoprost I have confirmed and [...] agree with all of its relevant components MD Giuliana Byrd [facility] Endowed Chair of Ophthalmology Research Professor of Ophthalmology, [facility] Vitreoretinal Staff, [facility] documented in this encounterT[facility]-2025 Note[facility]25 History of Present illness Narrative* Marsha Eric - 08/27/2024 2:17 PM EST FOLLOW UP PODIATRIC OFFICE VISIT Chief Complaint: This 79 year old who presents for follow up:callus of right hallux Patient presents to [facility] for follow-up callus of right hallux He denies any open sores He feels he is doing fairly well. PAIN EVALUATION No data found in the last 1 encounters. Hemoglobin A1C (POCT) Date Value Ref Range Status 06/12/2024 6.5 (A) 4.3 - 5.6 % Final Comment: Location:[facility], [address] [place] [address] Rd, [place], [address] Point of care (POC) Hemoglobin A1c (HGBA1C) [...] specific diabetes management situations: The POC device barometers calibrator provides a normal range of 4.2% to 6.5% for the HGBA1C POC test. However, the [place] [employer] guidelines indicate that patients with [...] in stage 3 chronic kidney disease (HCC) ([facility]) Background diabetic retinopathy(362.01) 09/18/2008 [facility] eye. 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 Tubular adenoma of colon 08/10/2016 Type II or unspecified type diabetes mellitus with ophthalmic manifestations, uncontrolled(250.52) 09/18/2008 iddm Unspecified asthma(493.90) Vitreous hemorrhage ([facility]) 04/19/2018 Added automatically from request for surgery [id number] Vitreous hemorrhage of left eye ([facility]) Current Outpatient Medications Medication Sig gabapentin (NEURONTIN) 300 mg capsule Take 1 capsule by mouth three times a day for 180 days. empagliflozin (JARDIANCE) 10 mg tablet Take 1 tablet by mouth daily with breakfast. flash glucose sensor (FREESTYLE DAIJA 2 SENSOR) kit Use one sensor every 14 days, IDDM, E11.42 insulin lispro (HUMALOG KWIKPEN INSULIN) 100 unit/mL Inject subcutaneously 2 units breakfast, 3 units lunch, 3 units dinner plus SS up to 20 units daily insulin glargine (LANTUS SOLOSTAR U-100 INSULIN) 100 unit/mL (3 mL) Inject subcutaneously 23 units daily in the AM losartan (COZAAR) 50 mg tablet Take 1 tablet by mouth once daily. NIFEdipine ER (PROCARDIA XL) 90 mg 24 hr tablet Take 1 tablet by mouth once daily. dorzolamide-timolol (COSOPT) 22.3-6.8 mg/mL ophthalmic solution Use 1 Drop in both eyes two times aday. latanoprost (XALATAN) 0.005 % ophthalmic solution INSTILL 1 DROP IN BOTH EYES DAILY AT BEDTIME rosuvastatin (CRESTOR) 40 mg tablet Take 1 tablet by mouth daily at bedtime. Blood Pressure Monitor (BLOOD PRESSURE KIT) 1 Each by VIA DEVICE route once daily. Please check your blood pressure once per day so we can see if we need to increase medications furosemide (LASIX) 40 mg tablet Take 1 tablet by mouth every other day. meclizine (ANTIVERT) 25 mg tab Take 1 tablet by mouth three times a day as needed. flash glucose scanning reader (FREESTYLE DAIJA 2 READER) Use continuously to monitor glucose. Dx: Type 2 DM - Uncontrolled E11.65 Insulin: Yes blood sugar diagnostic (BLOOD GLUCOSE TEST) test strip Test blood sugar(s) 3 times daily. Dx: Type 2 DM - Uncontrolled E11.65 Insulin: Yes Insulin [place], Disposable, (1ST TIER UNIFINE PENTIPS) 31 gauge x 3/16 Use as directed 4 times a day. Dx: E11. Lancets lancets Test blood sugar(s) 3 times daily. Dx: Type 2 DM - Uncontrolled E11 Insulin: Yes polyethylene glycol 3350 (MIRALAX) 17 gram/dose powder Take 17 g by mouth every other day. cholecalciferol (VITAMIN D) 1,000 unit tab tablet Take 1 tablet by mouth once daily. cyanocobalamin (VITAMIN B-12) 1,000 mcg tab Take 1 tablet by mouth once daily. aspirin(ECOTRIN LOW STRENGTH 81 MG TAB) Take by mouth. No current facility-administered medications for this visit. ALLERGIES Allergen Reactions Cortisone Other: See Comments [place] real hot, as if someone threw boiling [...] OBJECTIVE: Constitutional: Pt is a well developed 79 year old male who is alert, oriented, [...] present to right hallux. No underlying ulceration present. Musculoskeletal/Orthopaedic: Patient has no pain to palpation of right foot Flatfoot is noted to b/l feet R>L ASSESSMENT: (L84) Callus of foot (primary encounter diagnosis) (M21.41, M21.42) Pes planus of both feet (E11.49) Other diabetic neurological complication associated with type 2 diabetes mellitus (HCC) PLAN: Discussed callus of right hallux. The etiology of callus is caused by flattening of right foot. Would have him continue with orthotics and periodic debridement of callus. Callus debridement is necessary because if this callus is not debrided, he is at risk of underlying ulceration. Callus of right hallux was debrided today with 15 blade , tissue nippers and dremmel. Diabetic education performed. Marsha Eric DPM * Damien Butler RN - 08/27/2024 2:13 PM EST Patient presents with: Left Foot - Established Patient, Follow Up, Diabetic Foot Care, Callous Right Foot - Established Patient, Follow Up, Diabetic Foot Care, Callous Patient presents for follow up callus care. ALEK 07/19/24 documented in this encounterT[facility]03-03-2025 NoteC[facility]02-12-2025 Telephone encounter Note* Telephone Encounter - Kim Dior - 08/08/2024 5:07 PM EST Prescription Refill Information The patient has been identified by name and date of : Yes Caregiver verified no other encounters exist for this prescription request: Yes Caregiver confirmed with patient/requestor that no other refills are due, in the near future, with this provider at this time: Yes The last office visit in the department: 06/12/2024 Does the patient have a future office visit with this provider/department: Yes Requested Prescriptions Pending Prescriptions Disp Refills gabapentin (NEURONTIN) 300 mg capsule 270 capsule 1 Sig: Take 1 capsule by mouth three times a day for 180 days. Kim Dior August 08, 2024 5:08 PM [facility]02-12-2025 Miscellaneous Notes* Telephone Encounter - Kim Dior - 08/08/2024 5:07 PM EST Prescription Refill Information The patient has been identified by name and date of : Yes Caregiver verified no other encounters exist for this prescription request: Yes Caregiver confirmed with patient/requestor that no other refills are due, in the near future, with this provider at this time: Yes The last office visit in the department: 06/12/2024 Does the patient have a future office visit with this provider/department: Yes Requested Prescriptions Pending Prescriptions Disp Refills gabapentin (NEURONTIN) 300 mg capsule 270 capsule 1 Sig: Take 1 capsule by mouth three times a day for 180 days. Kim Dior August 08, 2024 5:08 PM documented in this encounterTogus [facility] Center02-10-2025 Telephone encounter Note * Telephone Encounter - Haydee Christina APRN.KAMILA - 08/06/2024 12:31 PM EST Great! [facility]02-10-2025 Miscellaneous Notes* Telephone Encounter - Haydee Christina APRN.CNP - 08/06/2024 12:31 PM EST Great! * Telephone Encounter - Jessica Wagner LPN - 08/06/2024 10:56 AM EST Message routed to Haydee Christina for review. * Telephone Encounter - Flavia Maguire - 08/06/2024 10:45 AM EST Patient calling to say that his insurance has approved Jardiance. documented in this encounterT[facility]02-10-2025 Telephone encounter Note * Telephone Encounter - Jessica Wagner LPN - 08/06/2024 10:56 AM EST Message routed to Haydee Christina for review. [facility]02-10-[facility] Telephone encounter Note* Telephone Encounter - Flavia Maguire - 08/06/2024 10:45 AM EST Patient calling to say that his insurance has approved Jardiance. [facility]02-07-2025 Telephone encounter Note* Telephone Encounter - Damien Hardy RN - 08/03/2024 12:02 PM EST The patient has been identified by name and date of : Yes Caregiver verified no other encounters exist for this prescription request: Yes Caregiver confirmed with patient/requestor that no other refills are due, in the near future, with this provider at this time: Yes The last office visit in the department: 06/12/2024 Does the patient have a future office visit with this provider/department: Yes 10/16/2024 Requested Prescriptions Pending Prescriptions Disp Refills promethazine (PHENERGAN) 25 mg tablet 20 tablet 0 Sig: Take 1 tablet by mouth every 6 hours as needed for nausea/vomiting for up to 7 days. Damien Hardy RN August 03, 2024 12:04 PM [facility]02-07-2025 Miscellaneous Notes* Telephone Encounter - Damien Hardy RN - 08/03/2024 12:02 PM EST The patient has been identified by name and date of : Yes Caregiver verified no other encounters exist for this prescription request: Yes Caregiver confirmed with patient/requestor that no other refills are due, in the near future, with this provider at this time: Yes The last office visit in the department: 06/12/2024 Does the patient have a future office visit with this provider/department: Yes 10/16/2024 Requested Prescriptions Pending Prescriptions Disp Refills promethazine (PHENERGAN) 25 mg tablet 20 tablet 0 Sig: Take 1 tablet by mouth every 6 hours as needed for nausea/vomiting for up to 7 days. Damien Hardy RN August 03, 2024 12:04 PM documented in this encounterTogus [facility] Center01-27-2025 Telephone encounter Note * Telephone Encounter - Tori Damian RN - 07/23/2024 3:18 PM EST spoke with the patient he will fax the copy of his insurance card to the office [facility]01-27-2025 Miscellaneous Notes* Telephone Encounter - Tori Damian RN - 07/23/2024 3:18 PM EST spoke with the patient he will fax the copy of his insurance card to the office * Telephone Encounter - Tori Damian RN - 07/23/2024 3:12 PM EST left a detailed message on patient's voicemail Haydee is filling out paperwork for [facility] for the patients Jardiance paperwork requires a copy of his current insurance card - FRONT and BACK ( cigna) included office fax and Address patient was instructed to call if he has any questions or concerns documented in this encounterTogus [facility] Center01-27-2025 Telephone encounter Note * Telephone Encounter - Tori Damian RN - 07/23/2024 3:12 PM EST left a detailed message on patient's voicemail Haydee is filling out paperwork for [facility] for the patients Jardiance paperwork requires a copy of his current insurance card - FRONT and BACK ( cigna) included office fax and Address patient was instructed to call if he has any questions or concerns [facility]01-27-2025 Instructions* Patient Instructions* Haydee Christina, 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 - 07/23/2024 1:40 PM EST PLAN: - Please try to limit potassium foods a bit. Foods high in potassium are bananas, potatoes, oranges, citrus fruits, dried fruits, brussel sprouts, mushrooms,beans, tomatoes, chocolate, spinach, prunes, avocados, salt substitutes and some protein shake supplements. -try to add another glass of water per day -Let me know if I can help with the Jardiance. I will reach out to the [facility] to see if I can assist in cost -Discussed need for good diabetes, blood pressure and cholesterol control to prevent disease progression -Recommend BP goal of 130/80 or less. Please contact the office if your blood pressure is less [id number]/70 or higher than 150/90. If you are consistently 140/70 or more please let us know and we can increase medications -Follow low salt diet. (1/2 tsp salt) [...] kidney function. -Increase activity as tolerated. RTC 3- 4 months with me and labs prior [facility] Please bring a complete list of your [...] improve our service to you by calling [phone] You may be receiving a survey regarding your care today. If you do, please take a few minutes to fill it out and send it back. It would be greatly appreciated. documented in this encounterTogus Va Medical Center01-27-2025 History of Present illness Narrative* Haydee Christina APRN.RISK AND COMPLIANCE ANALYTICS DIRECTOR - 07/23/2024 1:30 PM EST [facility] DEPARTMENT OF KIDNEY MEDICINE CHIEF COMPLAINT: Follow up for CKD. Data copied from my previous encounters and was imported as a reference for the current encounter. All information in this note has been verified. Data or information that hasn't changed was retainedfrom previous notes and the rest was revised or updated where relevant. 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 PMH: anemia, BPH, hyperlipidemia, hyperkalemia and glaucoma. Last seen by Dr Krishnan 10/18/22- no changes Myself 03/05/24 Since last visit no concerns- other than Jardiance not being covered. He paid over $600 despite appeal. In a few months it will be covered at just over $200. 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 Went to [facility]. Family in [place] Son has one kidney congenitally- was on dialysis for RONIT Problem List Reviewed PAST MEDICAL HISTORY Diagnosis Date Anemia in stage 3 chronic kidney disease (HCC) ([facility]) Background diabetic retinopathy(362.01) 09/18/2008 [facility] eye. 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 Tubular adenoma of colon 08/10/2016 Type II or unspecified type diabetes mellitus with ophthalmic manifestations, uncontrolled(250.52) 09/18/2008 iddm Unspecified asthma(493.90) Vitreous hemorrhage (HCC) 04/19/2018 Added automatically from request for surgery [id number] Vitreous hemorrhage of left eye (HCC) Current Outpatient Medications on File Prior to Visit Medication Sig meclizine (ANTIVERT) 25 mg tab Take 1 tablet by mouth three times daily as needed. flash glucose sensor (FREESTYLE DAIJA 14 DAY SENSOR) kit 1 Each every 2 weeks. Diagnoses: ICD10: E11.22, N18.32, Z79.4; E11.42, Z79.4. Sig: Check glucose 4 or more times per day. Patient on multiple insulin doses. Insulin [place], Disposable, (1ST TIER UNIFINE PENTIPS) 31 gauge [...] and 4 PM flash glucose scanning reader (SpreadShout DAIJA 14 DAY READER) Diagnoses: ICD10: E11.22, N18.32, [...] pain or pressure, palpitations, dizziness, lightheadedness. Denies COBIAN. Denies edema. Wears light compression stockings. Respiratory: denies cough Genitourinary: denies frequency, pink or bloody urine or dysuria. Has 1-2 episodes of nocturia per night Does not interfere with sleep. Does feel he empties his bladder fully. Follows with urology PHYSICAL EXAM BP: BP 152/75 (BP Site: Left Arm, BP Position: Sitting, BP Cuff Size: Regular Adult) Pulse 69 Wt 87.1 kg (192 lb) BMI 28.56 kg/m BP - standardized method Pulse 1 BP #1: 153/77 2 BP #2 : 151/75 3 BP #3 : 152/74 Average Average BP: 152/75 Average Pulse: 69 beats/min Orthostatic vitals Supine Sitting Standing BP cuff location BP cuff location: Left upper arm BP cuff size BP cuff size: regular adult Comments for BP values First BP (right) First BP (left) Constitutional: No acute distress, Responsive, Normal habitus, and Well-nourished Cardiovascular:No peripheral edema Regular rate and rhythm, normal S1 and S2, no murmurs Respiratory: Normal respiratory effort. Extremities: No peripheral edema Neurological: Alert and oriented x3. Psychiatric: Alert and oriented x self, place, time, and setting Normal mood/affect Very pleasant. Works hard to stay healthy Diagnostic tests reviewed for today's visit Labs: Latest Ref Rng 10/10/2023 03/05/2024 07/19/2024 RENAL KIDNEY STONE FLOWSHEET EGFR, All Other >=60 mL/min/1.73m 28 (L) 33 (L) 25 (L) Creatinine 0.73 - 1.22 mg/dL 2.32 (H) 2.03 (H) 2.54 (H) BUN 9 - 24 mg/dL 33 (H) 29 (H) 35 (H) Sodium 136 - 144 mmol/L 141 140 138 Potassium 3.7 - 5.1 mmol/L 5.4 (H) 5.0 5.4 (H) Chloride 98 - 107 mmol/L 108 (H) 109 (H) 106 CO2 22 - 30 mmol/L 23 21 (L) 24 Glucose 74 - 99 mg/dL 155 (H) 157 (H) 206 (H) Calcium 8.5 - 10.2 mg/dL 9.3 8.8 9.3 Phosphorus 2.7 - 4.8 mg/dL 3.9 3.4 4.8 Albumin 3.9 - 4.9 g/dL 4.5 4.3 4.5 WBC 3.70 - 11.00 k/uL 4.49 5.05 4.64 HGB 13.0 - 17.0 g/dL 12.8 (L) 13.1 12.5 (L) HCT 39.0 - 51.0 % 40.1 41.2 39.1 PLT 150 - 400 k/uL 279 276 298 PTH Intact 15 - 65 pg/mL 101 (H) Vitamin D25 Hydroxy 31.0 - 80.0 ng/mL 48.6 [facility]03/28/17 kidney ultrasound. Per radiology report: IMPRESSION: No hydronephrosis. RESULT: The right kidney measures approximately 11.2 cm. The left kidney measures approximately 12 cm. There is no hydronephrosis or perinephric fluid collection. Prevoid urinary bladder volume is 3 cc. There is no postvoid residual. Ureteral jets were not assessed on this examination. 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 PMH: anemia, BPH, hyperlipidemia, hyperkalemia and glaucoma. CKD Stage 4 with proteinuria likely in the setting of diabetic nephropathy and hypertensive nephrosclerosis. -Creatinine 2.54 mg/dL. Above new baseline -Her baseline serum creatinine around 1.9 mg/dL- trending up since Mar 2022- now 2.1- 2.3mg/dL -Abnormal creatinine since: progressively since 2008 Proteinuria: protein creatinine ratio 0.29 -Albuminuria: Albumin creatinine ratio 141 in August 2021 On ARB On Jardiance (but insurance has denied- he is paying out of pocket) Compliment and serology negative in May 2019 HTN/Volume: - controlled on current regimen - better at home -Volume: euvolemic -Currently on nifedipine 90mg daily, losartan 50mg daily and furosemide 40mg every other day Metabolic/electrolytes: Hx hyperkalemia K+- 5.4 above goal- intermittently high- limit diet for now Co2- 24 wnl Anemia: -Hgb 12.5 just below goal -denies overt loss -continue to monitor along with iron stores to assess for need of ANALISA. Metabolic Bone: -Ca+ 9.3 wnl -Phos: 4.8 wnl -Vitamin D: 34.8 wnl in Mar 2022 -PTH: 70 wnl in Mar 2022 CV/Lipids: -hx of hyperlipidemia -on statin -recommend LDL goal of <100 to prevent progression of CKD. DM: -Last HgbA1c 6.5 well controlled in May 2024 -follow up with PCP/endo PLAN: - Please try to limit potassium foods a bit. Foods high in potassium are bananas, potatoes, oranges, citrus fruits, dried fruits, brussel sprouts, mushrooms,beans, tomatoes, chocolate, spinach, prunes, avocados, salt substitutes and some protein shake supplements. -try to add another glass of water per day -Let me know if I can help with the Jardiance. I will reach out to the [facility] to see if I can assist in cost -Discussed need for good diabetes, blood pressure and cholesterol control to prevent disease progression -Recommend BP goal of 130/80 or less. Please contact the office if your blood pressure is less [id number]/70 or higher than 150/90. If you are consistently 140/70 or more please let us know and we can increase medications -Follow low salt diet. (1/2 tsp salt) [...] kidney function. -Increase activity as tolerated. RTC 3- 4 months with me and labs prior [facility] Haydee Christina CNP I spent a total of 39 minutes on the date of the service which included preparing to see the patient, [id number] patient care, completing clinical documentation, performing a medically appropriate examination, counseling and educating the patient/family/caregiver and ordering medications, tests, or procedures. Patient will require on going follow up appointments to manage chronic kidney disease documented in this encounterTogus [facility]01-27-2025 NoteC[facility]01-23-2025 NoteC[facility]01-23-2025 History of Present illness Narrative* Marsha Eric - 07/19/2024 2:33 PM EST Subjective: This 79 year old male presents to clinic for diabetic foot check. Patient has the following complaints: painful callus of right hallux. Patient admits to being diabetic. Patient -B/T/N infeet at this time. Patient -pain in legs when walking. No other pedal complaints at this time. No change in medications or medical history since last visit. PAIN EVALUATION No data found in the last 1 encounters. Hemoglobin A1C (%) Date Value 10/25/2022 6.0 09/03/2020 10.7 12/19/2019 7.0 10/09/2019 8.9 04/16/2019 8.5 11/13/2018 8.4 Hemoglobin A1C (POCT) (%) Date Value 06/12/2024 6.5 10/04/2023 6.3 02/09/2023 5.9 08/13/2022 6.3 01/01/2022 5.7 PCP: Jesse Glover MD PAST MEDICAL HISTORY Diagnosis Date Anemia in stage 3 chronic kidney disease ([facility]) ([facility]) Background diabetic retinopathy(362.01) 09/18/2008 [facility]. 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 Tubular adenoma of colon 08/10/2016 Type II or unspecified type diabetes mellitus with ophthalmic manifestations, uncontrolled(250.52) 09/18/2008 iddm Unspecified asthma(493.90) Vitreous hemorrhage ([facility]) 04/19/2018 Added automatically from request for surgery [id number] Vitreous hemorrhage of left eye ([facility]) Current Outpatient Medications Medication Sig empagliflozin (JARDIANCE) 10 mg tablet Take 1 tablet by mouth daily with breakfast. flash glucose sensor (FREESTYLE DAIJA 2 SENSOR) kit Use one sensor every 14 days, IDDM, E11.42 insulin lispro (HUMALOG KWIKPEN INSULIN) 100 unit/mL Inject subcutaneously 2 units breakfast, 3 units lunch, 3 units dinner plus SS up to 20 units daily insulin glargine (LANTUS SOLOSTAR U-100 INSULIN) 100 unit/mL (3 mL) Inject subcutaneously 23 units daily in the AM losartan (COZAAR) 50 mg tablet Take 1 tablet by mouth once daily. NIFEdipine ER (PROCARDIA XL) 90 mg 24 hr tablet Take 1 tablet by mouth once daily. gabapentin (NEURONTIN) 300 mg capsule Take 1 capsule by mouth three times a day for 180 days. dorzolamide-timolol (COSOPT) 22.3-6.8 mg/mL ophthalmic solution Use 1 Drop in both eyes two times aday. latanoprost (XALATAN) 0.005 % ophthalmic solution INSTILL 1 DROP IN BOTH EYES DAILY AT BEDTIME rosuvastatin (CRESTOR) 40 mg tablet Take 1 tablet by mouth daily at bedtime. Blood Pressure Monitor (BLOOD PRESSURE KIT) 1 Each by VIA DEVICE route once daily. Please check your blood pressure once per day so we can see if we need to increase medications furosemide (LASIX) 40 mg tablet Take 1 tablet by mouth every other day. meclizine (ANTIVERT) 25 mg tab Take 1 tablet by mouth three times a day as needed. flash glucose scanning reader (SpreadShout DAIJA 2 READER) Use continuously to monitor glucose. Dx: Type 2 DM - Uncontrolled E11.65 Insulin: Yes blood sugar diagnostic (BLOOD GLUCOSE TEST) test strip Test blood sugar(s) 3 times daily. Dx: Type 2 DM - Uncontrolled E11.65 Insulin: Yes Insulin [place], Disposable, (1ST TIER UNIFINE PENTIPS) 31 gauge x 3/16 Use as directed 4 times a day. Dx: E11.65 Lancets lancets Test blood sugar(s) 3 times daily. Dx: Type 2 DM - Uncontrolled E11.65 Insulin: Yes polyethylene glycol 3350 (MIRALAX) 17 gram/dose powder Take 17 g by mouth every other day. cholecalciferol (VITAMIN D) 1,000 unit tab tablet Take 1 tablet by mouth once daily. cyanocobalamin (VITAMIN B-12) 1,000 mcg tab Take 1 tablet by mouth once daily. aspirin(ECOTRIN LOW STRENGTH 81 MG TAB) Take by mouth. No current facility-administered medications for this visit. ALLERGIES Allergen Reactions Cortisone Other: See Comments [place] real hot, as if someone threw boiling [...] 40 + years ago Vaping Use Vaping status: Never Used Substance Use Topics Alcohol use: Yes Comment: [...] Objective: Patient presents to clinic ambulating in boots Constitutional: Pt is a well developed 79 year old male who is alert, oriented, cooperative and in no apparent distress. Eyes: Following during examination. No redness or drainage. Respiratory: RR normal and nonlabored. Even breathing. No evidence of distress. Psychology: Patient is engaged during conversation. Normal affect and mood. Does not appear depressed or anxious. Vasc: DP and PT pulses are palpable bilateral. CFT is less than 5 seconds bilateral. Skin temperature is warm to warm proximal to distal bilateral. There is no edema or varicosities noted. Hair growth present. Neuro: Protective sensation is intact to the foot and toes when tested with the 5.07 SWM bilateral.Vibratory sensation is decreased at the hallux bilateral. + Significant neurological defecits. Derm: Inspection and palpation performed. Nails 1-5 b/l are normal in length and thickness. Skin isof normal turgor and texture. Hyperkeratosis noted to right hallux. Healed blood blister of left hallux. NO ulcerations, scars, verruca or other lesions noted. Ortho: Ankle joint DF is full with the knee extended and full with knee flexed. No pain or crepitusnoted. STJ, MTJ ROM are full and free of pain or crepitus. Muscle strength is 5/5 for dorsiflexors,plantarflexors, inverters, everters. Flatfoot is noted b/l. Assessment: (L84) Callus of foot (primary encounter diagnosis) (E11.49) Other diabetic neurological complication associated with type 2 diabetes mellitus (HCC) (M21.41, M21.42) Pes planus of both feet Plan: 1. Patient was seen and evaluated. 2. Patient was instructed on the continued importance of diabetic foot care along with proper diet and keeping their blood sugar under control to prevent complications. Stressed the importance of avoiding barefoot walking, wearing good shoes and inspection of feet. Instructions given both oral and written. 3. Callus reduced to right hallux with dremmel and 15 blade. Continue with diabetic shoes. 4. Small blood blister to left hallux. No open wound following removal with forceps. 5. Follow-up in 1 month or sooner if problems arise Marsha Eric DPM * Damien Butler RN - 07/19/2024 2:15 PM EST Patient presents with: Left Foot - Established Patient, Follow Up, Diabetic Foot Care, Callous Right Foot - Established Patient, Follow Up, Diabetic Foot Care, Callous Patient presents for follow up diabetic foot/nail care and callus ALEK 06/07/24 [facility] Tele[facility] encounter Note* Telephone Encounter - Haydee Christina APRN.KAMILA - 07/05/2024 1:28 PM EST Supplied appeal documents completed and staff to fax. [facility]01-09-[facility]25 Miscellaneous Notes* Telephone Encounter - Haydee Christina APRN.KAMILA - 07/05/2024 1:28 PM EST Supplied appeal documents completed and staff to fax. * Telephone Encounter - Mae Larsen - 07/04/2024 3:34 PM EST Tier exception denied, scanned to chart * Telephone Encounter - Rachel Rodas RN - 07/02/2024 11:30 AM EST Will await paperwork. * Telephone Encounter - Flavia Maguire - 07/02/2024 11:21 AM EST Patient giving a heads up that his new insurance carrier, [employer], is faxing papers for Haydee Keeneito complete for the medication, empagliflozin (JARDIANCE) 10 mg tablet Paperwork will gely patient a significant discount on his medication. Patient has an office visit on 07/23/24. [facility] Telephone encounter Note * Telephone Encounter - Mae Larsen - 07/04/2024 3:34 PM EST Tier exception denied, scanned to chart [facility]01-06-[facility]25 Telephone encounter Note* Telephone Encounter - Rachel Rodas RN - 07/02/2024 11:30 AM EST Will await paperwork. [facility] Telephone encounter Note* Telephone Encounter - Flavia Maguire - 07/02/2024 11:21 AM EST Patient giving a heads up that his new insurance carrier, [employer], is faxing papers for Haydee Christianson complete for the medication, empagliflozin (JARDIANCE) 10 mg tablet Paperwork will gely patient a significant discount on his medication. Patient has an office visit on 07/23/24. [facility] Telephone encounter Note* Telephone Encounter - Jessica Wagner LPN - 06/18/2024 2:43 PM EST Medication was refilled by his PCP. [facility] Miscellaneous Notes* Telephone Encounter - Jessica Wagner LPN - 06/18/2024 2:43 PM EST Medication was refilled by his PCP. * Telephone Encounter - Jessica Wagner LPN - 06/18/2024 11:51 AM EST Called patient to discuss the prescription for Jardiance, left a voicemail advising him to contact his PCP as this medication was last refilled by Dr. Glover. Phone number left for any questions/concerns. * Telephone Encounter - Flavia Maguire - 06/18/2024 11:32 AM EST Pharmacy advising patient that the prescription for empagliflozin (JARDIANCE) 10 mg tablet has been canceled. Patient understood that Haydee Christina wanted him to continue taking it. Please call to advise. documented in this [facility]12-[facility]24 Telephone encounter Note * Telephone Encounter - Neyda Bo LPN - 06/18/2024 11:58 AM EST Pt calls to report [facility] advised that Jardiance was cancelled. Rx for 06/05 went to [facility] by mistake. Pt is asking for new rx to go to [facility]. Prescription Refill Information The patient has been identified by name and date of : Yes Caregiver verified no other encounters exist for this prescription request: Yes Caregiver confirmed with patient/requestor that no other refills are due, in the near future, with this provider at this time: Yes The last office visit in the department: 06/12/24 Does the patient have a future office visit with this provider/department: Yes 10/16/24 Requested Prescriptions Pending Prescriptions Disp Refills empagliflozin (JARDIANCE) 10 mg tablet 90 tablet 1 Sig: Take 1 tablet by mouth daily with breakfast. Neyda Bo LPN June 18, 2024 12:00 PM [facility]12-[facility] Miscellaneous Notes* Telephone Encounter - Neyda Bo LPN - 06/18/2024 11:58 AM EST Pt calls to report [facility] advised that Jardiance was cancelled. Rx for 06/05 went to [facility] by mistake. Pt is asking for new rx to go to [facility]. Prescription Refill Information The patient has been identified by name and date of : Yes Caregiver verified no other encounters exist for this prescription request: Yes Caregiver confirmed with patient/requestor that no other refills are due, in the near future, with this provider at this time: Yes The last office visit in the department: 06/12/24 Does the patient have a future office visit with this provider/department: Yes 10/16/24 Requested Prescriptions Pending Prescriptions Disp Refills empagliflozin (JARDIANCE) 10 mg tablet 90 tablet 1 Sig: Take 1 tablet by mouth daily with breakfast. Neyda Bo LPN June 18, 2024 12:00 PM documented in this encounterT[facility]12-[facility]-2024 Telephone encounter Note * Telephone Encounter - Jessica Wagner LPN - 06/18/2024 11:51 AM EST Called patient to discuss the prescription for Jardiance, left a voicemail advising him to contact his PCP as this medication was last refilled by Dr. Glover. Phone number left for any questions/concerns. [facility] Telephone encounter Note* Telephone Encounter - Flavia Maguire - 06/18/2024 11:32 AM EST Pharmacy advising patient that the prescription for empagliflozin (JARDIANCE) 10 mg tablet has been canceled. Patient understood that Haydee Christina wanted him to continue taking it. Please call to advise. [facility] note* Diagnosis Type 2 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 disease, with long-term current use of insulin, unspecified whether stage 3a or 3b CKD (HCC) documented in this encounter [facility]12[facility] Note* Addendum Note - Elsi Baer MA - 06/15/2024 1:10 PM ESTAddended by: ELSI BAER on: 06/15/2024 01:10 PM Modules accepted: Orders [facility]12-20-2024 Telephone encounter Note* Telephone Encounter - Elsi Baer MA - 06/15/2024 1:10 PM EST I have pended Rx to [facility] as requested from pt. Please send Rx today as requested, they are requesting this. Elsi Baer MA [facility]12-20-2024 Miscellaneous Notes* Addendum Note - Elsi Bare MA - 06/15/2024 1:10 PM ESTAddended by: ELSI BAER on: 06/15/2024 01:10 PM Modules accepted: Orders * Telephone Encounter - Elsi Baer MA - 06/15/2024 1:10 PM EST I have pended Rx to [facility] as requested from pt. Please send Rx today as requested, they are requesting this. Elsi Baer MA * Telephone Encounter - Mona Dorado - 06/15/2024 11:55 AM EST Esvin is calling regarding this being sent to the wrong company/pharmacy. He stated this should have been sent to [facility] . He is asking that this transfer be expedited today. TY * Telephone Encounter - Casey Palacios RN - 06/14/2024 1:42 PM EST The patient has been identified by name and date of : Yes Caregiver verified no other encounters exist for this prescription request: Yes Caregiver confirmed with patient/requestor that no other refills are due, in the near future, with this provider at this time: Yes The last office visit in the department: 06/12/2024 Does the patient have a future office visit with this provider/department: Yes 10/16/2024 Requested Prescriptions Pending Prescriptions Disp Refills flash glucose sensor (FREESTYLE DAIJA 2 SENSOR) kit 6 Each 3 Sig: Use one sensor every 14 days, IDDM, E11.42 Casey Palacios RN June 14, 2024 1:43 PM documented in this encounterT[facility]12-20-2024 Telephone encounter Note * Telephone Encounter - Mona Dorado - 06/15/2024 11:55 AM EST Esvin is calling regarding this being sent to the wrong company/pharmacy. He stated this should have been sent to [facility] . He is asking that this transfer be expedited today. TY [facility]12-19-[facility] Telephone encounter Note* Telephone Encounter - Casey Palacios RN - 06/14/2024 1:42 PM EST The patient has been identified by name and date of : Yes Caregiver verified no other encounters exist for this prescription request: Yes Caregiver confirmed with patient/requestor that no other refills are due, in the near future, with this provider at this time: Yes The last office visit in the department: 06/12/2024 Does the patient have a future office visit with this provider/department: Yes 10/16/2024 Requested Prescriptions Pending Prescriptions Disp Refills flash glucose sensor (FREESTYLE DAIJA 2 SENSOR) kit 6 Each 3 Sig: Use one sensor every 14 days, IDDM, E11.42 M Lux Palacios RN June 14, 2024 1:43 PM [facility]12-17-[facility] Telephone encounter Note* Telephone Encounter - Varsha Chester RN - 06/12/2024 2:01 PM EST Patient calling in and given update below. 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 Varsha Chester RN [facility]12-17-2024 Miscellaneous Notes* Telephone Encounter - Varsha Chester RN - 06/12/2024 2:01 PM EST Patient calling in and given update below. 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 Varsha Chester RN * Telephone Encounter - Roz Segovia LPN - 06/12/2024 1:27 PM EST PCP HAS SIGNED ALL AND ALL HAVE BEEN FAXED TO THE NUMBER PROVIDED ON THE FORM. * Telephone Encounter - Roz Segovia LPN - 06/12/2024 11:39 AM EST Pt had appt today with [employer] US[employer] INTERFACE DEVELOPER. [facility] has not contacted pt. Called [facility] They report the pcp has to complete the forms. There needs to be an office note stating pt would benefit from diabetic shoes. Then pcp needs to complete and sign the form pt brought in and pcp needs to sign and date the JAVA WEB USER INTERFACE DEVELOPER office note.(Pt was seen today). Then all back be faxed back to [facility]). * Telephone Encounter - Damien Butler RN - 06/07/2024 8:34 AM EST Normal portion of forms filled out and faxed back to [facility] * Telephone Encounter - Roz Segovia LPN - 06/05/2024 4:22 PM EST Pt brought in a form from [facility] to be completed. Dr. Glover reviewed this and was asking for podiatry to review this first. This was faxed to podiatry dept. Pt has appt with Dr. Eric 06/07/24. documented in this encounterT[facility]12-17-2024 Telephone encounter Note * Telephone Encounter - Roz Segovia LPN - 06/12/2024 1:27 PM EST PCP HAS SIGNED ALL AND ALL HAVE BEEN FAXED TO THE NUMBER PROVIDED ON THE FORM. [facility]12-17-[facility] Telephone encounter Note* Telephone Encounter - Roz Segovia LPN - 06/12/2024 11:39 AM EST Pt had appt today with JAVA WE[employer] USER INTERFACE DEVELOPER. [facility] has not contacted pt. Called [facility]) They report the pcp has to complete the forms. There needs to be an office note stating pt would benefit from diabetic shoes. Then pcp needs to complete and sign the form pt brought in and pcp needs to sign and date the JAVA WEB USER INTERFACE DEVELOPER office note.(Pt was seen today). Then all back be faxed back to [facility]). [facility]12-17-[facility] Instructions* Patient Instructions* America Johnston, 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 - 06/12/2024 10:07 AM EST Screening schedule The following prevention plan is recommended: Depression Screening Never done Anxiety Screening Never done Advance Directive Discussion due on 06/27/2023 Influenza Vaccine(1) due on 02/26/2024 HbA1C due on 04/04/2024 WHAT YOU CAN DO TO PREVENT FALLS [...] review all the medicines you take, even rdbr-clz-fvyzqar medicines. As you get older, the way medicines work in your body can change. Some medicines, or combinations of medicines, can make you sleepy or dizzy andcan cause you to fall. 3. Have your [...] have certain medical conditions. documented in this encounterT[facility]us [facility]12-17-2024 [facility]12-[facility] History of Present illness Narrative* America Johnston APRN.CNP - 06/12/2024 10:02 AM EST Images from the original note were not included. Esvin West Sr. is a 79 year old male here for a Medicare wellness visit. Medicare Health Risk Assessment General Health Very good Exercise: Minutes/Day 30 min Exercise: Days/Week 4 days Alcohol: Daily Use Never Alcohol: Drinks/Day Patient does not drink Alcohol: 6 or more drinks Never Feel off balance No Concerns: Teeth/Dentures No Concerns: Sexual function No Troubled by feelings None of the above Frequency: Eating healthy diet Nearly every day ADLs requiring help None of the above Safety precautions in home/vehicle Yes Smoke, vape, chews tobacco No Difficulty hearing No Difficulty seeing Yes Current Providers Specialists: I have reviewed specialist-related care of the patient in the medical record. Current care team: Patient Care Team: Jesse Glover MD as PCP - Fabian Long MD (Orthopedics) America Johnston APRN.CNP as Business Banking Representative (Internal Medicine) Chanda Phillips APRN- endocrinology Victor Manuel Swenson DO- nephrology Radha Cohn MD-ophthalmology Marsha Eric MD-podiatry Medical/Family history review Reviewed and updated problem list, medical/surgical/family/social history, medications, and allergies. Opioid use review Opioid Medications (last 90 days) No data to display Anxiety/Depression screening PHQ-2 Score: 0 (Lower risk for depression) ZENOBIA-2 Score: 0 (Lower risk for anxiety) Recommendation: no further intervention at this time Cognitive screening Patient declined Mini-Cog test. Functional Observation Was the patient's Timed Up & Go test unsteady or >= 12 seconds? No Advance Care Planning Patient was not able to provide a surrogate decision maker or written advance directives Measurements BP (!) 120/48 Pulse 77 Ht 174.6 cm (5' 8.75) Wt 90.3 kg (199 lb 1.2 oz) SpO2 98% BMI 29.61 kg/m Vision Screening: Follows with optometry/ophthalmology Assessment/Plan Medicare annual wellness visit, subsequent () - Counseled on healthy diet and regular exercise - Fall avoidance information provided - Personalized prevention plan provided - Discussed need for and benefit of weight loss. BMI 29.61 kg/(m^2) Additional Concerns The following concerns were also discussed with the patient: Patient reports bilateral ankle edema for the past few weeks. Denies pain, redness, SOB, chest pain, PND, orthopnea or rapid changes in weight. He does not wear compression socks. Staying well hydrated. Denies frequent use of NSAID's. Taking Lasix as prescribed. His home blood sugar readings have been well controlled. Does not check BP at home. Following up all specialists as instructed. BP (!) 120/48 Pulse 77 Ht 174.6 cm (5' 8.75) Wt 90.3 kg (199 lb 1.2 oz) SpO2 98% BMI 29.61 kg/m Physical Exam Vitals reviewed. Constitutional: Appearance: Normal appearance. Cardiovascular: Rate and Rhythm: Normal rate and regular rhythm. Heart sounds: Normal heart sounds. Comments: Trace bilateral ankle edema Pulmonary: Effort: Pulmonary effort is normal. Breath sounds: Normal breath sounds. No wheezing, rhonchi or rales. Neurological: Mental Status: He is alert. ASSESSMENT/PLAN: 1. Medicare annual wellness visit, subsequent - ICD9: V70.0, ICD10: Z00.00 (primary diagnosis) See medicare wellness plan 2. Type 2 diabetes mellitus with diabetic polyneuropathy, with long-term current use of insulin ([facility]) - ICD9: 250.60, 357.2, V58.67, ICD10: E11.42, Z79.4 - Controlled - Continue current medications - patient would benefit from diabetic shoes 3. Venous insufficiency - ICD9: 459.81, ICD10: I87.2 Ankle edema secondary to venous insufficiency. Patient would benefit from compression stockings - COMPRESSION STOCKINGS 4. CKD (chronic kidney disease) stage 3, GFR 30-59 ml/min ([facility]) - ICD9: 585.3, ICD10: N18.30 - eGFR: 33 Improving - Albuminuria: due for urine ACR - Counseled on avoiding NSAIDs, adequate hydration - Counseled on low sodium diet - Follow up with kidney medicine - NIFEDIPINE ER 90 MG TABLET,EXTENDED RELEASE 24 HR 5. Secondary hypertension due to renal disease - ICD9: 405.99, ICD10: I15.1 BP controlled - NIFEDIPINE ER 90 MG TABLET,EXTENDED RELEASE 24 HR 6. Mixed hyperlipidemia - ICD9: 272.2, ICD10: E78.2 - Controlled - Continue current medications - NIFEDIPINE ER 90 MG TABLET,EXTENDED RELEASE 24 HR - LIPID PANEL BASIC 7. Screening for depression - ICD9: V79.0, ICD10: Z13.31 - DEPRESSION SCREENING 8. Encounter for screening examination for other mental health and behavioral disorders - ICD9: V79.8, ICD10: Z13.39 - ANXIETY SCREENING America Johnston APRN.RISK AND COMPLIANCE ANALYTICS DIRECTOR documented in this encounterTogus [facility] Center12-13-2024 NoteC[facility]12-13-20[facility] History of Present illness Narrative* Marsha Eric - 06/08/2024 10:53 PM EST Last saw pcp: 02/14/24 Subjective: Patient presents to clinic c/o painful toenails. They state that the nails are especially painful with shoe gear and pressure. Patient states that nails 1-5 b/l are painful. Patient here for debridement of callus of right hallux. Patient admits to being diabetic. No other pedal complaints at this time. Patient states no change in medications or medical history since last visit. Objective: [facility] Vasc: DP and PT pulses are [...] noted. 1st MPJ ROM is decreased bilateral. Flatfoot is noted b/l. Assessment: (L84) Callus of foot (primary encounter diagnosis) (E11.49) Other diabetic neurological complication associated with type 2 diabetes mellitus (HCC) (B35.1) Onychomycosis (M79.674) Pain in toe of right foot (M79.675) Pain in toe of left foot Plan: Patient was seen and evaluated. Nails 1-5 bilateral were debrided in length and thickness. Callus to right hallux was debrided with 15 blade and dremmel. Continue with supportive shoes and use of lotion. Patient was instructed on the continued importance of diabetic foot care along with proper diet andkeeping their blood sugar under control to prevent complications. Stressed the importance of avoiding barefoot walking, wearing good shoes and inspection of feet. Patient is to RTC in 1 month for callus debridement. Marsha Eric DPM * Ledy Campbell LPN - 06/07/2024 12:13 PM EST AMB ROOMING INTAKE FLOWSHEET DATA Patient presents with: Left Foot - Established Patient, Follow Up, Diabetic Foot Care, Callous Right Foot - Established Patient, Follow Up, Diabetic Foot Care, Callous Ledy Campbell LPN documented in this encounterT[facility]12-12-2024 Telephone encounter Note * Telephone Encounter - Penny Scott LPN - 06/07/2024 3:29 PM EST Status of this. Penny Scott LPN [facility]12-12-2024 Miscellaneous Notes* Telephone Encounter - Penny Scott LPN - 06/07/2024 3:29 PM EST Status of this. Penny Scott LPN * Telephone Encounter - Jesse Glover MD - 06/05/2024 4:06 PM EST The following approved medication requests have been transmitted electronically. Requested Prescriptions Signed Prescriptions Disp Refills empagliflozin (JARDIANCE) 10 mg tablet 90 tablet 1 Sig: Take 1 tablet by mouth daily with breakfast. Authorizing Provider: JESSE GLOVER gabapentin (NEURONTIN) 300 mg capsule 270 capsule 1 Sig: Take 1 capsule by mouth three times a day for 180 days. Authorizing Provider: JESSE GLOVER Drug [place] form is new to me. I am sending this to Dr. Eric for the foot exam portion. I typically sign the CMN portion. * Telephone Encounter - Madiha Dhaliwal LPN - 06/05/2024 1:08 PM EST 1)Patient calling had left paperwork for PCP to complete so he can get his diabetic shoes, yesterday in the main lobby. He is trying to get the shoes done at [place] [employer], was told at [employer] that Dr Eric rx, can not get shoes until PCP completes form. He did not understand why that has to be done. 2)Patient is asking to have some of his medications to be sent to [facility] mail away pharmacy cheaper for him. Patient said he takes the Gabapentin rx sometimes three times daily depends on his pain. Computer shows was changed to twice daily in January per PCP. Pending rx to file. Please advise The patient has been identified by name and date of : Yes Caregiver verified no other encounters exist for this prescription request: Yes Caregiver confirmed with patient/requestor that no other refills are due, in the near future, with this provider at this time: Yes The last office visit in the department: 02/14/2024 Does the patient have a future office visit with this provider/department: Yes 06/12/2024 Requested Prescriptions Pending Prescriptions Disp Refills empagliflozin (JARDIANCE) 10 mg tablet 90 tablet 1 Sig: Take 1 tablet by mouth daily with breakfast. gabapentin (NEURONTIN) 300 mg capsule 180 capsule 1 Sig: Take 1 capsule by mouth two times a day for 180 days. Madiha Dhaliwal LPN June 05, 2024 1:24 PM [facility] Telephone encounter Note* Telephone Encounter - Damien Butler RN - 06/07/2024 8:34 AM EST Normal portion of forms filled out and faxed back to [facility]12-10-[facility]24 Telephone encounter Note* Telephone Encounter - Roz Segovia LPN - 06/05/2024 4:22 PM EST Pt brought in a form from [facility] to be completed. Dr. Glover reviewed this and was asking for podiatry to review this first. This was faxed to podiatry dept. Pt has appt with Dr. Eric 06/07/24. [facility]12-10-2024 Telephone encounter Note* Telephone Encounter - Jesse Glover MD - 06/05/2024 4:06 PM EST The following approved medication requests have been transmitted electronically. Requested Prescriptions Signed Prescriptions Disp Refills empagliflozin (JARDIANCE) 10 mg tablet 90 tablet 1 Sig: Take 1 tablet by mouth daily with breakfast. Authorizing Provider: JESSE GLOVER gabapentin (NEURONTIN) 300 mg capsule 270 capsule 1 Sig: Take 1 capsule by mouth three times a day for 180 days. Authorizing Provider: JESSE GLOVER [employer] form is new to me. I am sending this to Dr. Eric for the foot exam portion. I typically sign the CMN portion. [facility]12-10-2024 Telephone encounter Note* Telephone Encounter - Madiha Dhaliwal LPN - 06/05/2024 1:08 PM EST 1)Patient calling had left paperwork for PCP to complete so he can get his diabetic shoes, yesterday in the main lobby. He is trying to get the shoes done at [place] [employer], was told at [facility] [facility] that Dr Eric rx, can not get shoes until PCP completes form. He did not understand why that has to be done. 2)Patient is asking to have some of his medications to be sent to [facility] home delivery mail away pharmacy cheaper for him. Patient said he takes the Gabapentin rx sometimes three times daily depends on his pain. Computer shows was changed to twice daily in January per PCP. Pending rx to file. Please advise The patient has been identified by name and date of : Yes Caregiver verified no other encounters exist for this prescription request: Yes Caregiver confirmed with patient/requestor that no other refills are due, in the near future, with this provider at this time: Yes The last office visit in the department: 02/14/2024 Does the patient have a future office visit with this provider/department: Yes 06/12/2024 Requested Prescriptions Pending Prescriptions Disp Refills empagliflozin (JARDIANCE) 10 mg tablet 90 tablet 1 Sig: Take 1 tablet by mouth daily with breakfast. gabapentin (NEURONTIN) 300 mg capsule 180 capsule 1 Sig: Take 1 capsule by mouth two times a day for 180 days. Madiha Dhaliwal LPN June 05, 2024 1:24 PM [facility]12-05-2024 Telephone encounter Note* Telephone Encounter - Tianna Schneider MA - 05/31/2024 12:56 PM EST Spoke with Esvin West Sr. on May 31, 2024. Informed of results / instructions as stated above. Tianna Schneider MA [facility]12-05-2024 Miscellaneous Notes* Telephone Encounter - Tianna Schneider MA - 05/31/2024 12:56 PM EST Spoke with Esvin West Sr. on May 31, 2024. Informed of results / instructions as stated above. Tianna Schneider MA * Telephone Encounter - Chanda Phillips APRN.CNP - 05/31/2024 11:42 AM EST Reviewed. Continue jardiance Continue lantus 23 units daily Change humalog to: Breakfast 2 units Lunch 3 units Dinner 3 units Plus humalog sliding scale at meals if needed: If Blood Glucose (mg/dL) is < 150 Give 0 units 151-200 Give 1 unit 201-250 Give 2 units 251-300 Give 3 units 301-350 Give 4 units 351 Give 5 units Thank you * Telephone Encounter - Tianna Schneider MA - 05/31/2024 10:55 AM EST Patient came into the office and had us download his [employer] 2 Turbo Generator Oiler. Report printed and on your desk for review. documented in this encounterT[facility]12-05-2024 Telephone encounter Note * Telephone Encounter - Chanda Phillips APRN.CNP - 05/31/2024 11:42 AM EST Reviewed. Continue jardiance Continue lantus 23 units daily Change humalog to: Breakfast 2 units Lunch 3 units Dinner 3 units Plus humalog sliding scale at meals if needed: If Blood Glucose (mg/dL) is < 150 Give 0 units 151-200 Give 1 unit 201-250 Give 2 units 251-300 Give 3 units 301-350 Give 4 units 351 Give 5 units Thank you [facility]12-05-2024 Telephone encounter Note* Telephone Encounter - Tianna Schneider MA - 05/31/2024 10:55 AM EST Patient came into the office and had us download his [employer] 2 Turbo Generator Oiler. Report printed and on your desk for review. [facility]12-05-2024 [facility]12-[facility]24 History of Present illness Narrative* Tianna Schneider MA - 05/31/2024 10:51 AM EST Patient came into office to have his CGM data reviewed. We downloaded his [employer] Daija 2 Turbo Generator Oiler and it was successful. The report was given to the provider and will be reviewed. We will contact patient with any dose changes. He is aware. documented in this encounterT[facility]12-05-2024 Evaluation note* Diagnosis Type 2 diabetes mellitus with stage 3a chronic kidney disease, with long-term current use of insulin (HCC)- Primary documented in this encounter [facility]11-13-2024 NoteDate of Procedure 05/09/2024. Laser Set Up Operator Information Hand Binder Stripper: as. Start time: 11:35 AM. Stop time: 11:35 AM. Quality Right Eye Good. Left Eye Good. NFL Interpretation Right Eye Superior loss, Inferior loss. Left Eye Superior loss, Inferior loss. Ganglion Cell Layer Thickness Right Eye Other ocular pathology influencing GCL interpretation. Left Eye Other ocular pathology influencing GCL interpretation. Interval Change Right Eye Stable. Left Eye Worse. Notes Possible progression left eye?[id number] [facility] 05-09-2024 History of Present illness Narrative* Radha Cohn MD - 05/09/2024 11:20 AM EST Assessment and Plan 1. Primary [...] increased floaters, flashes, or shadows. -Continue Cosopt (has been using timolol) twice daily and latanoprost daily in both eyes -continue follow-up Dr. Finnegan as scheduled for retina - has a significant floater which has been stable -Me in 6 months with orta visual [...] components. Radha Cohn MD documented in this encounterTogus [facility]11-09-2024 [facility]11-09-2024 History of Present illness Narrative* Marsha Eric - 05/05/2024 6:56 AM EST Subjective: This 79 year old male presents to clinic for diabetic foot check. Patient has the following complaints: callus of right hallux. Patient admits to being diabetic for multiple years now. Patient -B/T/N in feet at this time. Patient -pain in legs when walking. No other pedal complaints at this time. No change in medications or medical history since last visit. PAIN EVALUATION No data found in the last 1 encounters. Hemoglobin A1C (%) Date Value 10/25/2022 6.0 09/03/2020 10.7 12/19/2019 7.0 10/09/2019 8.9 04/16/2019 8.5 11/13/2018 8.4 Hemoglobin A1C (POCT) (%) Date Value 10/04/2023 6.3 02/09/2023 5.9 08/13/2022 6.3 01/01/2022 5.7 06/16/2021 5.8 PCP: Jesse Glover MD PAST MEDICAL HISTORY Diagnosis Date Anemia in stage 3 chronic kidney disease ([facility]) ([facility]) Background diabetic retinopathy(362.01) 09/18/2008 [facility] eye. 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 Tubular adenoma of colon 08/10/2016 Type II or unspecified type diabetes mellitus with ophthalmic manifestations, uncontrolled(250.52) 09/18/2008 [facility] Unspecified asthma(493.90) Vitreous hemorrhage ([facility]) 04/19/2018 Added automatically from request for surgery [id number] Vitreous hemorrhage of left eye ([facility]) Current Outpatient Medications Medication Sig gabapentin (NEURONTIN) 300 mg capsule Take 1 capsule by mouth two times a day for 180 days. rosuvastatin (CRESTOR) 40 mg tablet Take 1 tablet by mouth daily at bedtime. empagliflozin (JARDIANCE) 10 mg tablet Take 1 tablet by mouth daily with breakfast. Blood Pressure Monitor (BLOOD PRESSURE KIT) 1 Each by VIA DEVICE route once daily. Please check your blood pressure once per day so we can see if we need to increase medications furosemide (LASIX) 40 mg tablet Take 1 tablet by mouth every other day. insulin glargine (LANTUS SOLOSTAR U-100 INSULIN) 100 unit/mL (3 mL) Inject subcutaneously 23 units daily in the AM meclizine (ANTIVERT) 25 mg tab Take 1 tablet by mouth three times a day as needed. flash glucose scanning reader (FREESTYLE DAIJA 2 READER) Use continuously to monitor glucose. Dx: Type 2 DM - Uncontrolled E11.65 Insulin: Yes timolol maleate (TIMOPTIC) 0.5 % ophthalmic solution Use in eyes. BID OU insulin lispro (HUMALOG KWIKPEN INSULIN) 100 unit/mL Inject subcutaneously 2 units TID meals plus SS up to 20 units daily NIFEdipine ER (PROCARDIA XL) 90 mg 24 hr tablet Take 1 tablet by mouth once daily. blood sugar diagnostic (BLOOD GLUCOSE TEST) test strip Test blood sugar(s) 3 times daily. Dx: Type 2 DM - Uncontrolled .65 Insulin: Yes Insulin [place], Disposable, (1ST TIER UNIFINE PENTIPS) 31 gauge x 3/16 Use as directed 4 times a day. Dx: E11. Lancets lancets Test blood sugar(s) 3 times daily. Dx: Type 2 DM - Uncontrolled E11.65 Insulin: Yes losartan (COZAAR) 50 mg tablet Take 1 tablet by mouth once daily. latanoprost (XALATAN) 0.005 % ophthalmic solution INSTILL 1 DROP IN BOTH EYES DAILY AT BEDTIME flash glucose sensor (FREESTYLE DAIJA 2 SENSOR) kit Use one sensor every 14 days, IDDM, E11.42 polyethylene glycol 3350 (MIRALAX) 17 gram/dose powder Take 17 g by mouth every other day. cholecalciferol (VITAMIN D) 1,000 unit tab tablet Take 1 tablet by mouth once daily. cyanocobalamin (VITAMIN B-12) 1,000 mcg tab Take 1 tablet by mouth once daily. aspirin(ECOTRIN LOW STRENGTH 81 MG TAB) Take by mouth. No current facility-administered medications for this visit. ALLERGIES Allergen Reactions Cortisone Other: See Comments [place] real hot, as if someone threw boiling [...] 40 + years ago Vaping Use Vaping status: Never Used Substance Use Topics Alcohol use: Yes Comment: [...] Objective: Patient presents to clinic ambulating in diabetic shoes Constitutional: Pt is a well developed 79 year old male who is alert, oriented, cooperative and in no apparent distress. Eyes: Following during examination. No redness or drainage. Respiratory: RR normal and nonlabored. Even breathing. No evidence of distress. Psychology: Patient is engaged during conversation. Normal affect and mood. Does not appear depressed or anxious. Vasc: DP and PT pulses are palpable bilateral. CFT is less than 5 seconds bilateral. Skin temperature is warm to warm proximal to distal bilateral. There is no edema or varicosities noted. Hair growth present. Neuro: Protective sensation is decreased to the foot and toes when tested with the 5.07 SWM bilateral. Vibratory sensation is absent at the hallux bilateral. + Significant neurological defecits. Derm: Inspection and palpation performed. Nails 1-5 b/l are normal in length and thickness . Skin is of normal turgor and texture. Hyperkeratosis noted to right hallux. NO ulcerations, scars, verruca or other lesions noted. Ortho: Ankle joint DF is decreased with the knee extended and decreased with knee flexed. No pain or crepitus noted. STJ, MTJ ROM are full and free of pain or crepitus. Muscle strength is 5/5 for dorsiflexors, plantarflexors, inverters, everters. Flatfoot is noted b/l Assessment: (E11.49) Other diabetic neurological complication associated with type 2 diabetes mellitus (HCC) (primary encounter diagnosis) (L84) Callus of foot Plan: 1. Patient was seen and evaluated. 2. Patient was instructed on the continued importance of diabetic foot care along with proper diet and keeping their blood sugar under control to prevent complications. Stressed the importance of wearing good shoes, use of lotion to feet, periodic filing of callus with pummice stone and daily foot inspection. Instructions given both oral and written. 3. Callus reduced to right hallux with 15 blade. 4. F/u in 4-5 weeks for callus. Callus reduction is necessary otherwise he is at risk of developingulceration Marsha Eric DPM * Damien Butler RN - 05/03/2024 2:28 PM EST Patient presents with: Left Foot - Established Patient, Follow Up, Diabetic Foot Care, Callous Right Foot - Established Patient, Follow Up, Diabetic Foot Care, Callous Patient presents for follow up diabetic foot/nail care. ALEK 03/26/24 documented in this encounterT[facility]11-07-2024 [facility]10-01-2024 Telephone encounter Note* Telephone Encounter - Roma Hawkins LPN - 03/27/2024 1:45 PM EDT Patient needing RX to go to different pharmacy. Patient has been identified by name and date of : Yes Patient phones for refill(s): Requested Prescriptions Pending Prescriptions Disp Refills gabapentin (NEURONTIN) 300 mg capsule 180 capsule 1 Sig: Take 1 capsule by mouth two times a day for 180 days. Date of last office visit in primary care: 02/14/2024 Date of next office visit in primary care: 06/12/2024 Please advise. Thank you. Roma Hawkins LPN. [facility]10-01-2024 Miscellaneous Notes* Telephone Encounter - Roma Hawkins LPN - 03/27/2024 1:45 PM EDT Patient needing RX to go to different pharmacy. Patient has been identified by name and date of : Yes Patient phones for refill(s): Requested Prescriptions Pending Prescriptions Disp Refills gabapentin (NEURONTIN) 300 mg capsule 180 capsule 1 Sig: Take 1 capsule by mouth two times a day for 180 days. Date of last office visit in primary care: 02/14/2024 Date of next office visit in primary care: 06/12/2024 Please advise. Thank you. Roma Hawkins LPN. * Telephone Encounter - Kristina Davis - 03/27/2024 1:26 PM EDT Prescription Refill Information The patient has been identified by name and date of : Yes Caregiver verified no other encounters exist for this prescription request: Yes Caregiver confirmed with patient/requestor that no other refills are due, in the near future, with this provider at this time: Yes The last office visit in the department: 02/14/24 Does the patient have a future office visit with this provider/department: Yes Requested Prescriptions Pending Prescriptions Disp Refills gabapentin (NEURONTIN) 300 mg capsule 180 capsule 1 Sig: Take 1 capsule by mouth two times a day for 180 days. Kristina Tapia March 27, 2024 1:27 PM documented in this encounterT[facility]10-01-2024 Telephone encounter Note * Telephone Encounter - Kristina Davis - 03/27/2024 1:26 PM EDT Prescription Refill Information The patient has been identified by name and date of : Yes Caregiver verified no other encounters exist for this prescription request: Yes Caregiver confirmed with patient/requestor that no other refills are due, in the near future, with this provider at this time: Yes The last office visit in the department: 02/14/24 Does the patient have a future office visit with this provider/department: Yes Requested Prescriptions Pending Prescriptions Disp Refills gabapentin (NEURONTIN) 300 mg capsule 180 capsule 1 Sig: Take 1 capsule by mouth two times a day for 180 days. Kristina Tapia March 27, 2024 1:27 PM [facility]09-30-[facility] History of Present illness Narrative* Marsha Eric - 03/26/2024 11:24 AM EDT Subjective: This 79 year old male presents to clinic for diabetic foot check. Patient has the following complaints: callus. Patient admits to being diabetic for multiple years now. Patient -B/T/N in feet at this time. Patient -pain in legs when walking. No other pedal complaints at this time. No change in medications or medical history since last visit. PAIN EVALUATION No data found in the last 1 encounters. Hemoglobin A1C (%) Date Value 10/25/2022 6.0 09/03/2020 10.7 12/19/2019 7.0 10/09/2019 8.9 04/16/2019 8.5 11/13/2018 8.4 Hemoglobin A1C (POCT) (%) Date Value 10/04/2023 6.3 02/09/2023 5.9 08/13/2022 6.3 01/01/2022 5.7 06/16/2021 5.8 PCP: Jesse Glover MD PAST MEDICAL HISTORY Diagnosis Date Anemia in stage 3 chronic kidney disease (HCC) ([facility]) Background diabetic retinopathy(362.01) 09/18/2008 [facility]. Benign paroxysmal positional vertigo 09/28/2021 Cataract of left eye Chronic kidney disease, unspecified CKD (chronic kidney disease) stage 3, GFR 30-59 ml/min ([facility]) 05/26/2017 [place] OD Depressive disorder, not elsewhere classified Erectile dysfunction associated with type 2 diabetes mellitus (HCC) ([facility]) 07/09/2008 Esophageal reflux Essential hypertension, benign Hyperplasia [...] foot ulcer, limited to breakdown of skin ([facility]) 04/20/2022 Secondary hypertension due to renal disease 03/28/2018 Secondary renal hyperparathyroidism ([facility]) 04/18/2019 Shoulder pain 09/25/2008 Right. Tubular adenoma of colon 08/10/2016 Type II or unspecified type diabetes mellitus with ophthalmic manifestations, uncontrolled(250.52) 09/18/2008 [facility] Unspecified asthma(493.90) Vitreous hemorrhage (HCC) 04/19/2018 Added automatically from request for surgery [id number] Vitreous hemorrhage of left eye (HCC) Current Outpatient Medications Medication Sig rosuvastatin (CRESTOR) 40 mg tablet Take 1 tablet by mouth daily at bedtime. empagliflozin (JARDIANCE) 10 mg tablet Take 1 tablet by mouth daily with breakfast. meclizine (ANTIVERT) 25 mg tab Take 1 tablet by mouth three times a day as needed for up to 20 days. Blood Pressure Monitor (BLOOD PRESSURE KIT) 1 Each by VIA DEVICE route once daily. Please check your blood pressure once per day so we can see if we need to increase medications furosemide (LASIX) 40 mg tablet Take 1 tablet by mouth every other day. gabapentin (NEURONTIN) 300 mg capsule Take 1 capsule by mouth two times a day for 180 days. insulin glargine (LANTUS SOLOSTAR U-100 INSULIN) 100 unit/mL (3 mL) Inject subcutaneously 23 units daily in the AM meclizine (ANTIVERT) 25 mg tab Take 1 tablet by mouth three times a day as needed. flash glucose scanning reader ([employer] DAIJA 2 READER) Use continuously to monitor glucose. Dx: Type 2 DM - Uncontrolled E11. Insulin: Yes timolol maleate (TIMOPTIC) 0.5 % ophthalmic solution Use in eyes. BID OU insulin lispro (HUMALOG KWIKPEN INSULIN) 100 unit/mL Inject subcutaneously 2 units TID meals plus SS up to 20 units daily NIFEdipine ER (PROCARDIA XL) 90 mg 24 hr tablet Take 1 tablet by mouth once daily. blood sugar diagnostic (BLOOD GLUCOSE TEST) test strip Test blood sugar(s) 3 times daily. Dx: Type 2 DM - Uncontrolled E11.65 Insulin: Yes Insulin [place], Disposable, (1ST TIER UNIFINE PENTIPS) 31 gauge x 3/16 Use as directed 4 times a day. Dx: E11. Lancets lancets Test blood sugar(s) 3 times daily. Dx: Type 2 DM - Uncontrolled E11.65 Insulin: Yes losartan (COZAAR) 50 mg tablet Take 1 tablet by mouth once daily. latanoprost (XALATAN) 0.005 % ophthalmic solution INSTILL 1 DROP IN BOTH EYES DAILY AT BEDTIME flash glucose sensor (FREESTYLE DAIJA 2 SENSOR) kit Use one sensor every 14 days, IDDM, E11.42 polyethylene glycol 3350 (MIRALAX) 17 gram/dose powder Take 17 g by mouth every other day. cholecalciferol (VITAMIN D) 1,000 unit tab tablet Take 1 tablet by mouth once daily. cyanocobalamin (VITAMIN B-12) 1,000 mcg tab Take 1 tablet by mouth once daily. aspirin(ECOTRIN LOW STRENGTH 81 MG TAB) Take by mouth. No current facility-administered medications for this visit. ALLERGIES Allergen Reactions Cortisone Other: See Comments [place] real hot, as if someone threw boiling [...] 40 + years ago Vaping Use Vaping status: Never Used Substance Use Topics Alcohol use: Yes Comment: [...] Objective: Patient presents to clinic ambulating in diabetic shoes Constitutional: Pt is a well developed 79 year old male who is alert, oriented, cooperative and in no apparent distress. Eyes: Following during examination. No redness or drainage. Respiratory: RR normal and nonlabored. Even breathing. No evidence of distress. Psychology: Patient is engaged during conversation. Normal affect and mood. Does not appear depressed or anxious. Vasc: DP and PT pulses are palpable bilateral. CFT is less than 5 seconds bilateral. Skin temperature is warm to warm proximal to distal bilateral. There is no edema or varicosities noted. Hair growth present. Neuro: Protective sensation is intact to the foot and toes when tested with the 5.07 SWM bilateral.Vibratory sensation is decreased at the hallux bilateral. + Significant neurological defecits. Derm: Inspection and palpation performed. Nails 1-5 b/l are normal in length and thickness. Skin isof =normal turgor and texture. Hyperkeratosis noted to right hallux. NO ulcerations, scars, verruca or other lesions noted. Ortho: Ankle joint DF is decreased with the knee extended and decreased with knee flexed. No pain or crepitus noted. STJ, MTJ ROM are full and free of pain or crepitus. Muscle strength is 5/5 for dorsiflexors, plantarflexors, inverters, everters. Digital deformities include hammertoes of lesser toes of b/l feet. . Assessment: (E11.49) Other diabetic neurological complication associated with type 2 diabetes mellitus (HCC) (primary encounter diagnosis) (L84) Callus of foot Plan: 1. Patient was seen and evaluated. 2. Patient was instructed on the continued importance of diabetic foot care along with proper diet and keeping their blood sugar under control to prevent complications. Stressed the importance of avoiding barefoot walking, wearing good shoes and inspection of feet Instructions given both oral and written. 3. Callus was reduced to right hallux today with dremmel. Minimal debridement was required with 15 blade. With history of neuropathy, will order diabetic shoe. 4. F/u in 1 month or sooner if problems arise Marsha Eric DPM * Damien Butler RN - 03/26/2024 11:00 AM EDT Patient presents with: Left Foot - Established Patient, Follow Up, Callous, Diabetic Foot Care Right Foot - Established Patient, Follow Up, Callous, Diabetic Foot Care Patient presents for follow up diabetic foot care and callus. ALEK 01/23/24 documented in this encounterT[facility]09-24-2024 Telephone encounter Note * Telephone Encounter - Karina Lopez RN - 03/20/2024 2:57 PM EDT Patient returns call and requests prescription to go to [facility] as previously pended. Notified of repeat lab orders. Karina Lopez RN [facility]09-24-2024 Miscellaneous Notes* Telephone Encounter - Karina Lopez RN - 03/20/2024 2:57 PM EDT Patient returns call and requests prescription to go to [facility] as previously pended. Notified of repeat lab orders. Karina Lopez RN * Telephone Encounter - Penny Scott LPN - 03/20/2024 2:13 PM EDT Left a message for pt to call the office. Crestor was sent to [facility]. When I spoke with pt I haddown he wanted this to go to [facility]. Recheck with pt when he wants this to go to and also give message below on repeat lab work. Penny Scott LPN * Telephone Encounter - Jesse Glover MD - 03/20/2024 12:57 AM EDT ASSESSMENT/PLAN: 1. Hyperlipidemia, unspecified hyperlipidemia type - ICD9: 272.4, ICD10: E78.5 - ROSUVASTATIN 40 MG TABLET - LIPID PANEL BASIC, fasting in 3 months. 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 Jesse Glover MD * Telephone Encounter - Penny Scott LPN - 03/19/2024 2:46 PM EDT Spoke with pt and information listed below given. Pt verbalizes understanding. Pt agrees to change to Crestor. Send to [facility]. Question: Pt asking when he repeats blood work to see if this is helping. Please advise pt. Penny Scott LPN * Telephone Encounter - Penny Scott LPN - 03/19/2024 2:39 PM EDT ----- Message from Jesse Glover MD sent at 03/17/2024 3:29 PM EDT ----- Cholesterol not coming down as before. I recommend changing pravastatin 80 mg to rosuvastatin (Crestor) 40 mg at bedtime. Similar class, side effects, cost but more effective for lowering cholesteroland reducing risk of heart attack and stroke. If he agrees, I will order. [facility] Telephone encounter Note * Telephone Encounter - Penny Scott LPN - 03/20/2024 2:13 PM EDT Left a message for pt to call the office. Crestor was sent to [facility]. When I spoke with pt I haddown he wanted this to go to [facility]. Recheck with pt when he wants this to go to and also give message below on repeat lab work. Penny Scott LPN [facility]09-24-2024 Telephone encounter Note* Telephone Encounter - Jesse Glover MD - 03/20/2024 12:57 AM EDT ASSESSMENT/PLAN: 1. Hyperlipidemia, unspecified hyperlipidemia type - ICD9: 272.4, ICD10: E78.5 - ROSUVASTATIN 40 MG TABLET - LIPID PANEL BASIC, fasting in 3 months. 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 Jesse Glover MD [facility]09-23-2024 Telephone encounter Note* Telephone Encounter - Penny Scott LPN - 03/19/2024 2:46 PM EDT Spoke with pt and information listed below given. Pt verbalizes understanding. Pt agrees to change to Crestor. Send to [facility]. Question: Pt asking when he repeats blood work to see if this is helping. Please advise pt. Penny Scott LPN [facility]09-23-2024 Telephone encounter Note* Telephone Encounter - Penny Scott LPN - 03/19/2024 2:39 PM EDT ----- Message from Jesse Glover MD sent at 03/17/2024 3:29 PM EDT ----- Cholesterol not coming down as before. I recommend changing pravastatin 80 mg to rosuvastatin (Crestor) 40 mg at bedtime. Similar class, side effects, cost but more effective for lowering cholesteroland reducing risk of heart attack and stroke. If he agrees, I will order. [facility]09-17-2024 Evaluation note* Diagnosis Type 2 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 disease, with long-term current use of insulin, unspecified whether stage 3a or 3b CKD (HCC) documented in this encounter [facility]09-16-2024 Telephone encounter Note* Telephone Encounter - Shivani Metz - 03/12/2024 4:17 PM EDT Prescription Refill Information The patient has been identified by name and date of : Yes Caregiver verified no other encounters exist for this prescription request: Yes Caregiver confirmed with patient/requestor that no other refills are due, in the near future, with this provider at this time: Yes NOTE: patient needs this RX to go to [facility] due to cost The last office visit in the department: 02/14/2024 Does the patient have a future office visit with this provider/department: Yes Requested Prescriptions Pending Prescriptions Disp Refills empagliflozin (JARDIANCE) 10 mg tablet 90 tablet 1 Sig: Take 1 tablet by mouth daily with breakfast. Shivani Abraham March 12, 2024 4:18 PM [facility]09-16-2024 Miscellaneous Notes* Telephone Encounter - Shivani Metz - 03/12/2024 4:17 PM EDT Prescription Refill Information The patient has been identified by name and date of : Yes Caregiver verified no other encounters exist for this prescription request: Yes Caregiver confirmed with patient/requestor that no other refills are due, in the near future, with this provider at this time: Yes NOTE: patient needs this RX to go to [facility] due to cost The last office visit in the department: 02/14/2024 Does the patient have a future office visit with this provider/department: Yes Requested Prescriptions Pending Prescriptions Disp Refills empagliflozin (JARDIANCE) 10 mg tablet 90 tablet 1 Sig: Take 1 tablet by mouth daily with breakfast. hSivani Abraham March 12, 2024 4:18 PM [facility] Telephone encounter Note * Telephone Encounter - Karina Lopez RN - 03/09/2024 4:54 PM EDT Patient leaving on vacation this weekend. Requests small supply of medications to go to [place] to have on hand for vacation in case he has nausea or vertigo. Pended per request. Last OV: 02/14/2024 Next OV: 06/12/2024 Karina Lopez RN [facility]09-13-2024 Miscellaneous Notes* Telephone Encounter - Karina Lopez RN - 03/09/2024 4:54 PM EDT Patient leaving on vacation this weekend. Requests small supply of medications to go to [place] to have on hand for vacation in case he has nausea or vertigo. Pended per request. Last OV: 02/14/2024 Next OV: 06/12/2024 Karina Lopez RN [facility] Miscellaneous Notes* Telephone Encounter - Krystal Fernando MA - 03/07/2024 4:02 PM EDT Patient notified * Telephone Encounter - Haydee Christina APRN.CNP - 03/07/2024 2:21 PM EDT These are acceptable. No need for medication changes * Telephone Encounter - Aminata Choudhary - 03/07/2024 1:54 PM EDT PT calling in to give BP reading taken 03/06 around 8:30am- 140/77-70 pulse. Next was 136-75 71 pulse, 131/72- pulse 72. Thank you * Telephone Encounter - Rachel Rodas RN - 03/07/2024 8:24 AM EDT Left VM requesting a return call to the office for message. * Telephone Encounter - Rachel Rodas RN - 03/07/2024 8:23 AM EDT ----- Message from Haydee Christina APRN.RISK AND COMPLIANCE ANALYTICS DIRECTOR sent at 03/06/2024 5:39 PM EDT ----- Please call him (it's his 's number but where he asked us to call) [phone] Renal function improved to 33 from 28%. No anemia Protein in his urine has improved a bit- would like to keep him on the Jardiance if possible K back to normal but still higher end- be cautious with diet. Foods high in potassium are bananas, potatoes, oranges, citrus fruits, dried fruits, brussel sprouts, mushrooms,beans, tomatoes, chocolate, spinach, prunes, avocados, salt substitutes and some protein shake supplements. I will look forward to seeing him again in 4 months [facility] Telephone encounter Note * Telephone Encounter - Krystal Fernando MA - 03/07/2024 4:02 PM EDT Patient notified [facility]09-11-2024 Telephone encounter Note* Telephone Encounter - Haydee Christina APRN.RISK AND COMPLIANCE ANALYTICS DIRECTOR - 03/07/2024 2:21 PM EDT These are acceptable. No need for medication changes [facility]09-11-2024 Telephone encounter Note* Telephone Encounter - Aminata Choudhary - 03/07/2024 1:54 PM EDT PT calling in to give BP reading taken 03/06 around 8:30am- 140/77-70 pulse. Next was 136-75 71 pulse, 131/72- pulse 72. Thank you [facility]09-11-2024 Telephone encounter Note* Telephone Encounter - Rachel Rodas RN - 03/07/2024 8:24 AM EDT Left VM requesting a return call to the office for message. [facility]09-11-2024 Telephone encounter Note* Telephone Encounter - Rachel Rodas RN - 03/07/2024 8:23 AM EDT ----- Message from Haydee Christina APRN.RISK AND COMPLIANCE ANALYTICS DIRECTOR sent at 03/06/2024 5:39 PM EDT ----- Please call him (it's his 's number but where he asked us to call) [phone] Renal function improved to 33 from 28%. No anemia Protein in his urine has improved a bit- would like to keep him on the Jardiance if possible K back to normal but still higher end- be cautious with diet. Foods high in potassium are bananas, potatoes, oranges, citrus fruits, dried fruits, brussel sprouts, mushrooms,beans, tomatoes, chocolate, spinach, prunes, avocados, salt substitutes and some protein shake supplements. I will look forward to seeing him again in 4 months [facility]09-09-2024 History of Present illness Narrative* Haydee Christina APRN.KAMILA - 03/05/2024 11:00 AM EDT [facility] DEPARTMENT OF KIDNEY MEDICINE CHIEF COMPLAINT: Follow up for CKD. Data copied from my previous encounters and was imported as a reference for the current encounter. All information in this note has been verified. Data or information that hasn't changed was retainedfrom previous notes and the rest was revised or updated where relevant. 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 PMH: anemia, BPH, hyperlipidemia, hyperkalemia and glaucoma. 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 Went to [facility] Son has one kidney congenitally Just came back from [place]- family there Problem List Reviewed PAST MEDICAL HISTORY No date: Anemia in stage 3 chronic kidney disease (HCC) ([facility]) 09/18/2008: Background diabetic retinopathy(362.01) Comment: Rigth eye. 09/28/2021: Benign paroxysmal positional vertigo No date: Cataract of left eye No date: Chronic kidney disease, unspecified 05/26/2017: CKD (chronic kidney disease) stage 3, GFR 30-59 ml/min ([facility]) No date: Coloboma of iris Comment: OD No date: Depressive disorder, not elsewhere classified 07/09/2008: Erectile dysfunction associated with type 2 diabetes mellitus ([facility]) ([facility]) No date: Esophageal reflux No date: Essential hypertension, benign No date: Hyperplasia of prostate No date: Macular edema Comment: dme od No date: Other and unspecified hyperlipidemia No date: Other specified anemias 09/18/2008: Other specified gastritis without mention of hemorrhage 08/04/2016: Personal history of colonic polyps No date: Primary open angle glaucoma Comment: OU 04/07/2021: Primary open angle glaucoma (POAG) of both eyes, severe stage No date: Proliferative diabetic retinopathy(362.02) No date: Pseudophakia of right eye 04/20/2022: Right foot ulcer, limited to breakdown of skin ([facility]) 03/28/2018: Secondary hypertension due to renal disease 04/18/2019: Secondary renal hyperparathyroidism ([facility]) 09/25/2008: Shoulder pain Comment: Right. 08/10/2016: Tubular adenoma of colon 09/18/2008: Type II or unspecified type diabetes mellitus with ophthalmic manifestations, uncontrolled(250.52) Comment: iddm No date: Unspecified asthma(493.90) 04/19/2018: Vitreous hemorrhage ([facility]) Comment: Added automatically from request for surgery [id number] No date: Vitreous hemorrhage of left eye ([facility]) Current Outpatient Medications on File Prior to Visit Medication Sig meclizine (ANTIVERT) 25 mg tab Take 1 tablet by mouth three times daily as needed. flash glucose sensor (FREESTYLE DAIJA 14 DAY SENSOR) kit 1 Each every 2 weeks. Diagnoses: ICD10: E11.22, N18.32, Z79.4; E11.42, Z79.4. Sig: Check glucose 4 or more times per day. Patient on multiple insulin doses. Insulin [place], Disposable, (1ST TIER UNIFINE PENTIPS) 31 gauge [...] and 4 PM flash glucose scanning reader (Spread[employer] DAIJA 14 DAY READER) Diagnoses: ICD10: E11.22, N18.32, [...] pain or pressure, palpitations, dizziness, lightheadedness. Denies COBIAN. Denies edema. Wears light compression stockings. Respiratory: denies cough Genitourinary: denies frequency, pink or bloody urine or dysuria. Has 1-2 episodes of nocturia per night Does not interfere with sleep. Does feel he empties his bladder fully. Follows with urology PHYSICAL EXAM BP: BP 172/72 (BP Site: Left Arm, BP Position: Sitting, BP Cuff Size: Regular Adult) Pulse 71 Wt 87.4 kg (192 lb 10.9 oz) BMI 27.65 kg/m BP - standardized method Pulse 1 BP #1: 174/64 2 BP #2 : 168/81 3 BP #3 : 173/72 Average Average BP: 172/72 Average Pulse: 71 beats/min Orthostatic vitals Supine Sitting Standing BP cuff location BP cuff location: Left upper arm BP cuff size BP cuff size: regular adult Comments for BP values First BP (right) First BP (left) Constitutional: No acute distress, Responsive, Normal habitus, and Well-nourished Cardiovascular:No peripheral edema Regular rate and rhythm, normal S1 and S2, no murmurs Respiratory: Normal respiratory effort. Extremities: No peripheral edema Neurological: Alert and oriented x3. Psychiatric: Alert and oriented x self, place, time, and setting Normal mood/affect Very pleasant. Works hard to stay healthy Diagnostic tests reviewed for today's visit Labs: Needs updated labs Latest Ref Rng 04/05/2023 10/10/2023 03/05/2024 RENAL KIDNEY STONE FLOWSHEET EGFR, All Other >=60 mL/min/1.73m 30 (L) 28 (L) Creatinine 0.73 - 1.22 mg/dL 2.22 (H) 2.32 (H) BUN 9 - 24 mg/dL 29 (H) 33 (H) Sodium 136 - 144 mmol/L 138 141 Potassium 3.7 - 5.1 mmol/L 4.2 5.4 (H) Chloride 97 - 105 mmol/L 105 108 (H) CO2 22 - 30 mmol/L 23 23 Glucose 74 - 99 mg/dL 165 (H) 155 (H) Calcium 8.5 - 10.2 mg/dL 9.1 9.3 Phosphorus 2.7 - 4.8 mg/dL 4.3 3.9 Albumin 3.9 - 4.9 g/dL 4.1 4.5 WBC 3.70 - 11.00 k/uL 4.35 4.49 5.05 HGB 13.0 - 17.0 g/dL 13.1 12.8 (L) 13.1 HCT 39.0 - 51.0 % 42.1 40.1 41.2 PLT 150 - 400 k/uL 321 279 276 Kidney imagin03/28/17 kidney ultrasound. Per radiology report: IMPRESSION: No hydronephrosis. RESULT: The right kidney measures approximately 11.2 cm. The left kidney measures approximately 12 cm. There is no hydronephrosis or perinephric fluid collection. Prevoid urinary bladder volume is 3 cc. There is no postvoid residual. Ureteral jets were not assessed on this examination. 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 PMH: anemia, BPH, hyperlipidemia, hyperkalemia and glaucoma. CKD Stage 3b with proteinuria likely in the setting of diabetic nephropathy and hypertensive nephrosclerosis. -Creatinine 2.32 mg/dL in September 2023- will update -Her baseline serum creatinine around 1.9 mg/dL -Abnormal creatinine since: progressively since 2008 Proteinuria: protein creatinine ratio 0.39 in September 2023 -Albuminuria: Albumin creatinine ratio 141 in August 2021 [facility] [address] (currently paying over $200 for 3 months- may try [facility] if medeiros increases) Compliment and serology negative in May 2019 HTN/Volume: - controlled on current regimen. -Volume: euvolemic -Currently on nifedipine 90mg daily, losartan 50mg daily and furosemide 40mg every other day Metabolic/electrolytes: K+- 5.4 above goal in September 2023 Co2- 23 wnl in September 2023 Anemia: -Hgb 12.8 just below goal in September 2023 -continue to monitor along with iron stores to assess for need of ANALISA. Metabolic Bone: -Ca+ 9.3 wnl in September 2023 -Phos: 3.9 wnl in September 2023 -Vitamin D: 34.8 wnl in Mar 2022 -PTH: 70 wnl in Mar 2022 CV/Lipids: -hx of hyperlipidemia -on statin -recommend LDL goal of <100 to prevent progression of CKD. DM: -Last HgbA1c 6.3 well controlled in September 2023 -follow up with PCP/endo PLAN: - I will contact you via phone at [phone] ('s number per your request) with results. I will let you know when to follow back up and place new lab orders -Discussed need for good diabetes, blood pressure and cholesterol control to prevent disease progression -Recommend BP goal of 130/80 or less. Please contact the office if your blood pressure is less [id number]/70 or higher than 150/90. If you are consistently 140/70 or more please let us know and we can increase medications -Follow low salt diet. (1/2 tsp salt) [...] kidney function. -Increase activity as tolerated. RTC 4 months with me and labs prior [facility] Haydee Christina CNP I spent a total of 34 minutes on the date of the service which included preparing to see the patient, [id number] patient care, completing clinical documentation, performing a medically appropriate examination, counseling and educating the patient/family/caregiver and ordering medications, tests, or procedures. Patient will require on going follow up appointments to manage chronic kidney disease [facility] Instructions* Patient Instructions* Haydee Christina APRN.CNP - 03/05/2024 10:43 AM EDT PLAN: - I will contact you via phone at [phone] with results. I will let you know when to follow back up and place new lab orders -Discussed need for good diabetes, blood pressure and cholesterol control to prevent disease progression -Recommend BP goal of 130/80 or less. Please contact the office if your blood pressure is less [id number]/70 or higher than 150/90. If you are consistently 140/70 or more please let us know and we can increase medications -Follow low salt diet. (1/2 tsp salt) [...] kidney function. -Increase activity as tolerated. RTC 4 months with me and labs prior [facility] Please bring a complete list of your [...] improve our service to you by calling [phone] You may be receiving a survey regarding your care today. If you do, please take a few minutes to fill it out and send it back. It would be greatly appreciated. documented in this encounterT[facility]08-29-2024 Telephone encounter Note * Telephone Encounter - Roz Segovia LPN - 02/23/2024 3:43 PM EDT Form was completed and faxed 02/10/24 and again today. Did also fax back to this number provided in this encounter. [facility]08-29-2024 Miscellaneous Notes* Telephone Encounter - Roz Segovia LPN - 02/23/2024 3:43 PM EDT Form was completed and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 something else. I spoke with the patient he saw his PCP his BP was 122/60, HR 67 and blood sugar was 132. Patient is feeling better he was given an medication for dizziness and nausea and told that the issue is related to vertigo. documented in this encounterTogus [facility] Medical Center04-16-2024 Miscellaneous Notes* Telephone Encounter - Damien Hdz MA - 10/11/2023 4:04 PM EDT Patient notified to the below message in it's entirety and he voiced understanding. * Telephone Encounter - Haydee Christina APRN.CNP - 10/11/2023 3:01 PM EDT No difference between the medications in regards to kidney protection so either is fine. Agree withcontinuing plan of BPs and blood sugars to determine cause of dizziness. * Telephone Encounter - Willa Correa RN - 10/11/2023 2:46 PM EDT Images from the original note were not included. I returned call to patient to relay response below from Haydee Christina. He states Dr. Krishnan startedhim on Jardiance so he thinks that he needs to decide which medication is best for him. I reinterated the original message regarding his results and feelings of dizziness and holding jardiance at this time to see if dizziness improves but patient states his dizzines isn't from jardiance. I said I would share again but to continue to follow up as ordered with repeat lab orders. Patient verbalized understanding. Haydee Christina APRN.KAMILA You; Reina Christina Cnp Clinical Pool 1 hour ago (1:14 PM) I'm ok with either as they are the same class of drug. He can see what endo wants to do. Might wantto just hold off and see how his dizziness is for now and go from there * Telephone Encounter - Willa Correa RN - 10/11/2023 12:41 PM EDT I called and spoke with patient and relayed the message below from Haydee. Patient verbalized understanding. I will also mail a list of high potassium food to avoid. He wanted me to let Haydee know that his insurance did agree to cover farxiga if that is another option. Will route to Haydee Christina to advise. * Telephone Encounter - Willa Correa RN - 10/11/2023 12:41 PM EDT ----- Message from Haydee Christina APRN.RISK AND COMPLIANCE ANALYTICS DIRECTOR sent at 10/11/2023 12:29 PM EDT ----- Please call him Protein in urine is the same Need to limit K foods and repeat in 1 wk. Labs in. Foods high in potassium are bananas, potatoes, oranges, citrus fruits, dried fruits, brussel sprouts, mushrooms,beans, tomatoes, chocolate, spinach,prunes, avocados, salt substitutes and some protein shake supplements. Renal function a bit worse at 28% but still considered stable I did speak with Chanda/anil. I am ok with him holding the jardiance to see if his dizziness improves since he is on losartan which also protective for kidneys and protein in the urine. The other option is to watch sugars and BPs especially when dizzy to see if there is another cause for the dizziness vs Jardiance Will need 3 month f/u and labs. I placed orders. Thanks documented in this encounterTogus Va Medical Center04-16-2024 History of Present illness Narrative* America Johnston, 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 - 10/11/2023 9:54 AM EDT CC: Patient presents with: 4 month follow up HPI Esvin West Sr. is a 78 year old male who presents today for above. He is feeling well overall and denies any concerns today. Taking all medications as prescribed without side effects. Monitors BP at home with average in the 120's/60's. He has a CGM, average glucose around 130. Denies hypoglycemia. He sees multiple specialists including nephrology, vascular, cardiology, and endocrinology. 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 Review of Systems Constitutional: Negative for chills, diaphoresis, fatigue, fever and unexpected weight change. Respiratory: Negative for cough, shortness of breath and wheezing. Cardiovascular: Negative for chest pain, palpitations and leg swelling. Neurological: Negative for dizziness, syncope, weakness, light-headedness and headaches. PAST MEDICAL HISTORY Diagnosis Date Anemia in stage 3 chronic kidney disease (HCC) ([facility]) Background diabetic retinopathy(362.01) 09/18/2008 [facility] eye. Benign paroxysmal positional vertigo 09/28/2021 Cataract of left eye Chronic kidney disease, unspecified CKD (chronic kidney disease) stage 3, GFR 30-59 ml/min ([facility]) 05/26/2017 Coloboma of iris OD Depressive disorder, not elsewhere classified Erectile dysfunction associated with type 2 diabetes mellitus (HCC) ([facility]) 07/09/2008 Esophageal reflux Essential hypertension, benign Hyperplasia [...] foot ulcer, limited to breakdown of skin ([facility]) 04/20/2022 Shoulder pain 09/25/2008 Right. Tubular adenoma of colon 08/10/2016 Type II or unspecified type diabetes mellitus with ophthalmic manifestations, uncontrolled(250.52) 09/18/2008 iddm Unspecified asthma(493.90) Vitreous hemorrhage (HCC) 04/19/2018 Added automatically from request for surgery [id number] Vitreous hemorrhage of left eye (HCC) PAST [...] OS ALLERGIES Cortisone and Zestril [Lisinopril] MEDICATIONS furosemide (LASIX) 40 mg tablet Take 1 tablet by mouth every other day. timolol maleate (TIMOPTIC) 0.5 % ophthalmic solution Use in eyes. BID OU insulin lispro (HUMALOG KWIKPEN INSULIN) 100 unit/mL Inject subcutaneously 2 units TID meals plus SS up to 20 units daily NIFEdipine ER (PROCARDIA XL) 90 mg 24 hr tablet Take 1 tablet by mouth once daily. flash glucose scanning reader (FREESTYLE DAIJA 2 READER) Use continuously to monitor glucose. Dx: Type 2 DM - Uncontrolled E11. Insulin: Yes blood sugar diagnostic (BLOOD GLUCOSE TEST) test strip Test blood sugar(s) 3 times daily. Dx: Type 2 DM - Uncontrolled Insulin: Yes empagliflozin (JARDIANCE) 10 mg tablet Take 1 tablet by mouth daily with breakfast. gabapentin (NEURONTIN) 300 mg capsule Take 1 capsule by mouth three times a day for 180 days. insulin glargine (LANTUS SOLOSTAR U-100 INSULIN) 100 unit/mL (3 mL) Inject subcutaneously 23 units daily in the AM Insulin [place], Disposable, (1ST TIER UNIFINE PENTIPS) 31 gauge x 3/16 Use as directed 4 times a day. Dx: . Lancets lancets Test blood sugar(s) 3 times daily. Dx: Type 2 DM - Uncontrolled Insulin: Yes losartan (COZAAR) 50 mg tablet Take 1 tablet by mouth once daily. pravastatin (PRAVACHOL) 80 mg tablet Take 1 tablet by mouth once daily. For cholesterol. latanoprost (XALATAN) 0.005 % ophthalmic solution INSTILL 1 DROP IN BOTH EYES DAILY AT BEDTIME flash glucose sensor (FREESTYLE DAIJA 2 SENSOR) kit Use one sensor every 14 days, IDDM, E11.42 polyethylene glycol 3350 (MIRALAX) 17 gram/dose powder Take 17 g by mouth every other day. meclizine (ANTIVERT) 25 mg tab Take 1 tablet by mouth three times daily as needed. cholecalciferol (VITAMIN D) 1,000 unit tab tablet [...] red wine per month Drug use: No BP 122/60 Pulse 67 Resp 14 Wt 89.8 kg (198 lb) SpO2 98% BMI 28.41 kg/m Physical Exam Vitals reviewed. Constitutional: Appearance: Normal appearance. Cardiovascular: Rate and Rhythm: Normal rate and regular rhythm. Pulses: Normal pulses. Heart sounds: Normal heart sounds. No murmur heard. Pulmonary: Effort: Pulmonary effort is normal. Breath sounds: Normal breath sounds. No wheezing, rhonchi or rales. Skin: General: Skin is warm and dry. Neurological: Mental Status: He is alert. Psychiatric: Mood and Affect: Mood and affect normal. Health maintenance reviewed with patient: BP Controlled (<130/80) due on 06/04/2020 Advance Directive Discussion due on 06/27/2023 Behavioral Health Screening Never done LDL Cholesterol due on 10/26/2023 Diabetic Foot Exam due on 12/17/2023 HbA1C due on 04/04/2024 Annual PCP Team Chronic Disease Visit due on 06/23/2024 Dilated Retinal Exam due on 10/05/2024 Serum Creatinine due on 10/09/2024 Hemoglobin/Hematocrit due on 10/09/2024 DTaP,Tdap,Td Vaccine(2 - Td or Tdap) due on 01/13/2028 Influenza Vaccine Completed RSV Vaccine Completed Hepatitis C Screening Completed Pneumococcal Vaccine: 65+ Completed Colorectal Cancer Screening Discontinued Shingrix Vaccine Discontinued Covid-19 Vaccine Discontinued DATA REVIEWED: Most recent labs ASSESSMENT/PLAN: 1. Type 2 diabetes mellitus with diabetic polyneuropathy, with long-term current use of insulin (HCC) - ICD9: 250.60, 357.2, V58.67, ICD10: E11.42, Z79.4 (primary diagnosis) - Controlled - Continue current medications - FREESTYLE DAIJA 2 READER 2. Hyperlipidemia, unspecified hyperlipidemia type - ICD9: 272.4, ICD10: E78.5 - Control undetermined, due for labs - Continue current medications - LIPID PANEL BASIC 3. Essential hypertension - ICD9: 401.9, ICD10: I10 - Controlled - Continue current medications - Recommend home blood pressure monitoring, to bring results to next visit - Encouraged sodium restriction, DASH or Mediterranean diet 4. Stage 3b chronic kidney disease (HCC) - ICD9: 585.3, ICD10: N18.32 - eGFR: 28 Worsening - Albuminuria: due for urine ACR - Counseled on avoiding NSAIDs, adequate hydration - Counseled on low sodium diet - Follow up with kidney medicine Prescription instructions reviewed with patient as applicable. Potential red flag symptoms discussed with the patient. Reviewed appropriate action plan to take if red flag symptoms occur. Patient agreeable to treatment plan. America Johnston APRN.KAMILA documented in this encounterT[facility]-15-[facility]24 Instructions* Patient Instructions* Haydee Christina APRN.KAMILA - 10/10/2023 11:17 AM EDT PLAN: -Please get labs done today or within the week. I will contact you via phone at [phone] with results. I will let you know when to follow back up and place new lab orders -Would prefer to stay on Jardiance (SLGT2) if possible due to protein in your urine. I will reach out to endocrinology to inform -Discussed need for good diabetes, blood pressure and cholesterol control to prevent disease progression -Recommend BP goal of 130/80 or less. Please contact the office if your blood pressure is less hwco102/70 or higher than 150/90 -Follow low salt [...] kidney function. -Increase activity as tolerated. RTC [address] Krishnan (pending labs) and labs prior Can try Farxiga instead of Jardiance if that is cheaper- check with insurance Please bring a complete list of your [...] improve our service to you by calling [phone] You may be receiving a survey regarding your care today. If you do, please take a few minutes to fill it out and send it back. It would be greatly appreciated. documented in this encounterT[facility]04-15-2024 History of Present illness Narrative* Haydee Christina APRN.RISK AND COMPLIANCE ANALYTICS DIRECTOR - 10/10/2023 10:40 AM EDT [facility] DEPARTMENT OF KIDNEY MEDICINE CHIEF COMPLAINT: [...] by Dr Krishnan 10/18/22- no changes Myself 03/31/23 Since last visit doing well. Just saw cosmetic counselor and had insulin decreased a bit. They discussed possibility of holding Jardiance. 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 Benign paroxysmal positional vertigo 09/28/2021 Cataract of left eye Chronic kidney disease, unspecified CKD (chronic kidney disease) stage 3, GFR 30-59 ml/min ([facility]) 05/26/2017 Coloboma of iris OD Depressive disorder, not elsewhere classified Erectile dysfunction associated with type 2 diabetes mellitus (HCC) ([facility]) 07/09/2008 Esophageal reflux Essential hypertension, benign Hyperplasia [...] 04/19/2018 Added automatically from request for surgery [id number] Vitreous hemorrhage of left eye ([facility]) Current Outpatient Medications on File Prior to Visit Medication Sig meclizine (ANTIVERT) 25 mg tab Take 1 tablet by mouth three times daily as needed. flash glucose sensor (Storm Tact[employer] ProductsSTYLE DAIJA 14 DAY SENSOR) kit 1 Each every 2 weeks. Diagnoses: ICD10: E11.22, N18.32, Z79.4; E11.42, Z79.4. Sig: Check glucose 4 or more times per day. Patient on multiple insulin doses. Insulin [place], Disposable, (1ST TIER UNIFINE PENTIPS) 31 gauge [...] and 4 PM flash glucose scanning reader (SpreadShout DAIJA 14 DAY READER) Diagnoses: ICD10: E11.22, N18.32, [...] pain or pressure, palpitations, dizziness, lightheadedness. Denies COBIAN. Admits to edema to intermittent lower leg [...] level is good PHYSICAL EXAM BP: BP 175/78 (BP Site: Right Arm, BP Position: Sitting, BP Cuff Size: Regular Adult) Pulse 70 Wt 89 kg (196 lb 3.4 oz) BMI 28.15 kg/m BP - standardized method Pulse 1 BP #1: 175/83 Pulse #1: 71 beats/min 2 BP #2 : 175/76 Pulse #2 : 69 beats/min 3 BP #3 : 173/76 Pulse #3 : 71 beats/min Average Average BP: 175/78 Average Pulse: 70 beats/min Orthostatic vitals Supine Sitting Standing BP cuff location BP cuff location: Right upper arm BP cuff size BP cuff size: regular adult Comments for BP values First BP (right) First BP (left) This practitioner took manual BP with reading of 136/76 to R arm, sitting. Last 2 Encounter Wt Readings: Date: Wt: [...] for today's visit Labs: Needs updated labs Latest Ref Rng 10/25/2022 04/05/2023 RENAL KIDNEY STONE FLOWSHEET EGFR, All Other >=60 mL/min/1.73m 34 (L) 30 (L) Creatinine 0.73 - 1.22 mg/dL 2.01 (H) 2.22 (H) BUN 9 - 24 mg/dL 29 (H) 29 (H) Sodium 136 - 144 mmol/L 141 138 Potassium 3.7 - 5.1 mmol/L 4.6 4.2 Chloride 97 - 105 mmol/L 109 (H) 105 CO2 22 - 30 mmol/L 22 23 Glucose 74 - 99 mg/dL 105 (H) 165 (H) Calcium 8.5 - 10.2 mg/dL 9.2 9.1 Phosphorus 2.7 - 4.8 mg/dL 3.3 4.3 Albumin 3.9 - 4.9 g/dL 4.0 4.1 WBC 3.70 - 11.00 k/uL 4.84 4.35 HGB 13.0 - 17.0 g/dL 12.8 (L) 13.1 HCT 39.0 - 51.0 % 41.4 42.1 PLT 150 - 400 k/uL 279 321 Kidney imagin03/28/17 kidney ultrasound. Per radiology report: [...] of diabetic nephropathy and hypertensive nephrosclerosis. -Creatinine 2.22 mg/dL in Mar 2023, above baseline- will update -Her baseline serum creatinine around 1.9 mg/dL -Abnormal creatinine since: progressively since 2008 -Albuminuria: Albumin creatinine ratio 141 in August 2021 On ARB On Jardiance Compliment and serology negative in May 2019 HTN/Volume: - controlled on current regimen. -Volume: euvolemic -Currently on nifedipine 90mg daily, losartan 50mg daily and furosemide 40mg daily Metabolic/electrolytes: K+- 4.2 wnl in Mar 2023 Co2- 23 wnl in Mar 2023 Anemia: -Hgb 13.1 wnl in Mar 2023 -continue to monitor along with iron stores to assess for need of ANALISA. Metabolic Bone: -Ca+ 9.1 wnl in Mar 2023 -Phos: 4.3 wnl in Mar 2023 -Vitamin D: 34.8 wnl in Mar 2022 -PTH: 70 wnl in Mar 2022 CV/Lipids: -hx of hyperlipidemia -on statin -recommend LDL goal of <100 to prevent progression of CKD. DM: -Last HgbA1c 6.3 well controlled -follow up with PCP/endo PLAN: -Please get labs done today or within the week. I will contact you via phone at [phone] with results. I will let you know when to follow back up and place new lab orders -Would prefer to stay on Jardiance (SLGT2) if possible due to protein in your urine. I will reach out to endocrinology to inform -Discussed need for good diabetes, blood pressure and cholesterol control to prevent disease progression -Recommend BP goal of 130/80 or less. Please contact the office if your blood pressure is less xrtm322/70 or higher than 150/90 -Follow low salt [...] kidney function. -Increase activity as tolerated. RTC [address] Krishnan (pending labs) and labs prior Can try Farxiga instead of Jardiance if that is cheaper- check with insurance Haydee Christina CNP Spent 36 minutes in the visit and reviewing the chart. Patient will require on going follow up appointments to manage chronic kidney disease documented in this encounterT[facility]04-11-2024 History of Present illness Narrative* Adia Finnegan MD - 10/06/2023 9:41 AM EDT Last seen 05/18 1. Type 2, Insulin dependent Diabetes Mellitus Lab Results Component Value Date HBA1C 6.3 10/04/2023 HBA1C 5.9 02/09/2023 HBA1C 6.0 10/25/2022 HBA1C 6.3 08/13/2022 HBA1C 10.7 09/03/2020 HBA1C 7.0 12/19/2019 HBA1C 8.9 10/09/2019 - Stressed blood pressure and blood sugar control and close follow-up with PCP/lithographic printing machinist 2. Q Proliferative diabetic retinopathy Both Eyes - RIGHT: - s/p Panretinal laser photocoagulation #5 (last 08/29/14, 08/08/14, 10/04/13, 07/05/13, 04/05/13) - s/p Avastin #3 (last 04/19/18, 03/23/18, 02/17/17) - s/p Pars plana vitrectomy/EL (05/02/18) - OCT shows trace improving non-central IRF - Since VA stable and IRF not affecting central vision, will continue to observe - LEFT: - s/p Panretinal laser photocoagulation #2 (07/12/13, 03/29/13) - s/p Phaco/PCIOL/PPV/MP/EL/FAx (11/16/16) - OCT shows trace worsening of non-central IRF, not affecting vision - Both eyes are stable - Plan = Observe, one year 4. Pseudophakia Both eyes - s/p Phaco/PCIOL [...] agree with all of its relevant components MD Giuliana Byrd [facility] Endowed Chair of Ophthalmology Research Professor of Ophthalmology, [facility] Vitreoretinal Staff, [facility] documented in this encounterTogus [facility]04-10-2024 Miscellaneous Notes* Telephone Encounter - Tianna Schneider MA - 10/05/2023 1:46 PM EDT Faxed office note to PCP, transmission ok CLOSED * Telephone Encounter - Chantell Trimble - 10/05/2023 11:47 AM EDT Patient called and said that he needs a copy of his appointment with Chanda 10/04/2023, And he needs it sent to, Jesse Glover MD [facility] documented in this encounterTogus [facility] Center04-09-2024 Instructions* Patient Instructions* Chanda Phillips APRN.CNP - 10/04/2023 12:14 PM EDT Continue lantus 23 units daily in AM. Humalog Breakfast 2 units Lunch 2 units Dinner 2 units Plus humalog sliding scale at meals if needed: If Blood Glucose (mg/dL) is < 150 Give 0 units 151-200 Give 1 unit 201-250 Give 2 units 251-300 Give 3 units 301-350 Give 4 units 351 Give [address] to trail holding jardiance to see if you fell better and discuss with nephrology at next appointment as well. Check blood pressure and blood sugar when you feel symptoms. Follow up in 6 months Chanda Phillips, MSN, APPLICATIONS PACKAGER, JAVA WEB USER INTERFACE DEVELOPER-C, CDE Endocrinology [facility] Medical [facility]/[address], [address] [place], [place] [address] Fax: documented in this encounterTogus [facility]04-09-2024 Procedure note* Jaimee Fang MA - 10/04/2023 12:06 PM EDTProcedure(s): EXTERNAL MASTIC FLOOR LAYER, CGM SYS Images from the original note were not included. documented in this encounterTogus [facility] Center04-09-2024 History of Present illness Narrative* Chanda Phillips APRN.RISK AND COMPLIANCE ANALYTICS DIRECTOR - 10/04/2023 12:00 PM EDT Reason for Consultation: DM Type 2 Referring Physician: Jesse Glover MD [id number] [facility] [id number] HISTORY OF PRESENT ILLNESS Mr. West is a 78 year old male presenting here today for a follow up of DM Type 2. As I recall, hewas initially diagnosed with diabetes 1989.He has been on insulin since 2008 LV 02/09/23 A1C today is 5.9 History of diabetes, hypertension, hyperlipidemia, retinopathy, peripheral neuropathy and CKD, BPH,ED, anemia, hyperparathyroidism, glaucoma Receives CGM supplies form [employer] Fhx of DM in mother, siblings, Maternal Aunt. Under the care of podiatry, nephrology Mild anemia, secondary hyperparathyroidism per nephrology Nephrology started SGLT2 Seeing cardiology in [place]. Denies hx of [place], CVA, stents, CABG/CAD Has been having dizziness and feels it may be due to jardiance. Denies low BG at the time. Did not check BP He is taking 6-7 units at a time with meals. Though he was to take the Sliding scale plus account more for carbs. Current diabetes regimen is as follows: lantus [...] checking his blood glucose continuously with Freestyle Daija 2 CGM he does bring a log book today for review. LDE Blood Sugar Frequency: Data from August Hypoglycemia frequency: occasionally Hypoglycemia awareness: Yes Regarding symptoms of hypoglycemia, he is not experiencing any symptoms such as polyuria, polydipsia, nocturia or rapid weight loss or blurry vision, Overall, the patient has no acute complaints at this time. PAST MEDICAL HISTORY Diagnosis Date Anemia in stage 3 chronic kidney disease (HCC) (HCC) Background diabetic retinopathy(362.01) 09/18/2008 [facility] eye. Benign paroxysmal positional vertigo 09/28/2021 Cataract of left eye Chronic kidney disease, unspecified CKD (chronic kidney disease) stage 3, GFR 30-59 ml/min ([facility]) 05/26/2017 Coloboma of iris OD Depressive disorder, not elsewhere classified Erectile dysfunction associated with type 2 diabetes mellitus ([facility]) ([facility]) 07/09/2008 Esophageal reflux Essential hypertension, benign Hyperplasia [...] foot ulcer, limited to breakdown of skin ([facility]) 04/20/2022 Shoulder pain 09/25/2008 Right. Tubular adenoma of colon 08/10/2016 Type II or unspecified type diabetes mellitus with ophthalmic manifestations, uncontrolled(250.52) 09/18/2008 iddm Unspecified asthma(493.90) Vitreous hemorrhage ([facility]) 04/19/2018 Added automatically from request for surgery [id number] Vitreous hemorrhage of left eye ([facility]) PAST SURGICAL HISTORY Procedure Laterality Date AVASTIN [...] Drug use: No Allergies As of Date: 10/04/2023 Allergen Noted Reaction CORTISONE 05/09/2009 Other: See Comments ZESTRIL [LISINOPRIL] 01/29/2009 Intolerance Fully Assessed 10/04/2023 Current Outpatient Medications Medication Sig Dispense Refill NIFEdipine ER (PROCARDIA XL) 90 mg 24 hr tablet Take 1 tablet by mouth once daily. 90 tablet 3 flash glucose scanning reader (SpreadShout DAIJA 2 READER) Use continuously to monitor glucose. Dx: Type 2 DM - Uncontrolled E11.65 Insulin: Yes 1 Each 0 blood sugar diagnostic (BLOOD GLUCOSE TEST) test strip Test blood sugar(s) 3 times daily. Dx: Type 2 DM - Uncontrolled E11.65 Insulin: Yes 90 Strip 3 empagliflozin (JARDIANCE) 10 mg tablet Take 1 tablet by mouth daily with breakfast. 90 tablet 1 furosemide (LASIX) 40 mg tablet Take 1 tablet by mouth once daily. 90 tablet 3 gabapentin (NEURONTIN) 300 mg capsule Take 1 capsule by mouth three times a day for 180 days. 270 capsule 1 insulin glargine (LANTUS SOLOSTAR U-100 INSULIN) 100 unit/mL (3 mL) Inject subcutaneously 23 units daily in the AM 15 mL 5 insulin lispro (HUMALOG KWIKPEN INSULIN) 100 unit/mL Inject subcutaneously TID meals per SS up to 15 units daily 15 mL 5 Insulin [place], Disposable, (1ST TIER UNIFINE PENTIPS) 31 gauge x 3/16 Use as directed 4 times a day. Dx: E11.65 400 Each 3 Lancets lancets Test blood sugar(s) 3 times daily. Dx: Type 2 DM - Uncontrolled E11.65 Insulin: [id number] Each 5 losartan (COZAAR) 50 mg tablet Take 1 tablet by mouth once daily. 90 tablet 3 pravastatin (PRAVACHOL) 80 mg tablet Take 1 tablet by mouth once daily. For cholesterol. 90 tablet 3 brimonidine (ALPHAGAN) 0.2 % ophthalmic solution Use 1 Drop in both eyes two times a day. 5 mL 5 latanoprost (XALATAN) 0.005 % ophthalmic solution INSTILL 1 DROP IN BOTH EYES DAILY AT BEDTIME 7.5 mL 2 flash glucose sensor (FREESTYLE DAIJA 2 SENSOR) kit Use one sensor every 14 days, IDDM, E11.42 6 Each 3 polyethylene glycol 3350 (MIRALAX) 17 gram/dose powder Take 17 g by mouth every other day. meclizine (ANTIVERT) 25 mg tab Take 1 tablet by mouth three times daily as needed. 90 tablet 3 cholecalciferol (VITAMIN D) 1,000 unit tab tablet Take 1 tablet by mouth once daily. 30 tablet 3 cyanocobalamin (VITAMIN B-12) 1,000 mcg tab Take 1 tablet by mouth once daily. aspirin(ECOTRIN LOW STRENGTH 81 MG TAB) Take by mouth. 0 No current facility-administered medications for this visit. REVIEW OF SYSTEMS Review of Systems Respiratory: Negative for difficulty breathing. Cardiovascular: Negative for chest pain. Gastrointestinal: Negative for nausea, vomiting, diarrhea and constipation. Neurological: Positive for dizziness. PHYSICAL EXAMINATION BP 110/65 Pulse 57 Ht 177.8 cm (5' 10) Wt 91.4 kg (201 lb 8 oz) SpO2 99% BMI 28.91 kg/m2 Physical Exam Constitutional: Appearance: Normal appearance. Cardiovascular: Rate and Rhythm: Normal rate and regular rhythm. Pulmonary: Effort: Pulmonary effort is normal. Breath sounds: Normal breath sounds. Skin: General: Skin is warm and dry. Neurological: Mental Status: He is alert and oriented to person, place, and time. Psychiatric: Mood and Affect: Mood normal. Behavior: Behavior normal. Seeing podiatry DATA Creatinine Date Value Ref Range Status 04/05/2023 2.22 (H) 0.73 - 1.22 mg/dL Final Hemoglobin [...] edema, with long-term current use of insulin ([facility]) (primary encounter diagnosis) Comment: Glycemic control is reasonable per A1C however he is taking more insulin then recommended.Will add base dose and SS plus suggest he hold jardiance for a couple weeks to see if his symptoms improve. Retinopathy monitored/managed per retinal specialist/freight rate specialist Plan: HEMOGLOBIN A1C (POC), insulin lispro (HUMALOG KWIKPEN INSULIN) 100 unit/mL Continue lantus 23 units daily in AM. Humalog Breakfast 2 units Lunch 2 units Dinner 2 units Plus humalog sliding scale at meals if needed: If Blood Glucose (mg/dL) is < 150 Give 0 units 151-200 Give 1 unit 201-250 Give 2 units 251-300 Give 3 units 301-350 Give 4 units 351 Give 5 units Ok to trail holding jardiance to see if you fell better and discuss with nephrology at next appointment as well. Check blood pressure and blood sugar when you feel symptoms. Follow up in 6 months (E11.42, Z79.4) Type 2 diabetes mellitus with diabetic polyneuropathy, with long-term current use of insulin ([facility]) Comment: Glycemic control is reasonable per A1C however he is taking more insulin then recommended.Will add base dose and SS plus suggest he hold jardiance for a couple weeks to see if his symptoms improve. Neuropathy is monitored per podiatry Plan: HEMOGLOBIN A1C (POC), insulin lispro (HUMALOG KWIKPEN INSULIN) 100 unit/mL Continue lantus 23 units daily in AM. Humalog Breakfast 2 units Lunch 2 units Dinner 2 units Plus humalog sliding scale at meals if needed: If Blood Glucose (mg/dL) is < 150 Give 0 units 151-200 Give 1 unit 201-250 Give 2 units 251-300 Give 3 units 301-350 Give 4 units 351 Give 5 units Ok to trail holding jardiance to see if you fell better and discuss with nephrology at next appointment as well. Check blood pressure and blood sugar when you feel symptoms. Follow up in 6 months (E11.22, N18.30, Z79.4) Type 2 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 disease, with long-term current use of insulin, unspecified whether stage 3a or 3b CKD ([facility]) Comment: Glycemic control is reasonable per A1C however he is taking more insulin then recommended.Will add base dose and SS plus suggest he hold jardiance for a couple weeks to see if his symptoms improve. CKD managed per nephrology. He is on SGLT2 and ARB Plan: HEMOGLOBIN A1C (POC), insulin lispro (HUMALOG KWIKPEN INSULIN) 100 unit/mL Continue lantus 23 units daily in AM. Humalog Breakfast 2 units Lunch 2 units Dinner 2 units Plus humalog sliding scale at meals if needed: If Blood Glucose (mg/dL) is < 150 Give 0 units 151-200 Give 1 unit 201-250 Give 2 units 251-300 Give 3 units 301-350 Give 4 units 351 Give 5 units Ok to trail holding jardiance to see if you fell better and discuss with nephrology at next appointment as well. Check blood pressure and blood sugar when you feel symptoms. Follow up in 6 months (E11.649) Hypoglycemia due to type 2 diabetes mellitus (HCC) Comment/Plan:Follow SS humalog Continue CGM (I10) Hypertension goal BP (blood pressure) < 140/90 Comment/Plan: Managed per PCP/nephrology (E78.5) Hyperlipidemia, unspecified hyperlipidemia type Comment: taking pravastatin Plan:managed per PCP Medical Decision Making: Level: 4 - Moderate Chanda Phillips, MSN, APPLICATIONS PACKAGER, JAVA WEB USER INTERFACE DEVELOPER-C, CDE Endocrinology [facility] Medical Office [facility]/[address] [place] [address] Fax: documented in this encounterTog[facility] Center03-21-2024 Miscellaneous Notes* Telephone Encounter - Roma Hawkins LPN - 09/15/2023 10:27 AM EDT Patient wanting RX to go to different pharmacy. Roma Hawkins LPN * Telephone Encounter - Willa Dempsey - 09/15/2023 10:24 AM EDT Pharmacy verified in Epic Patient has been identified by name and date of : Yes Patient aware RX will be sent to pharmacy. No need to notify patient. Patient phones for refill(s): Requested Prescriptions Pending Prescriptions Disp Refills NIFEdipine ER (PROCARDIA XL) 90 mg 24 hr tablet 90 tablet 3 Sig: Take 1 tablet by mouth once daily. Date of last office visit : 06/23/2023 Date of next office visit : 10/11/2023 Last 2 Encounter Wt Readings: Date: Wt: 06/23/2023 88 kg (194 lb) 06/19/2023 88.5 kg (195 lb) Patient requesting a pharmacy change. Please advise. Willa Tapia documented in this encounterTogus [facility] Center02-29-2024 Miscellaneous Notes* Telephone Encounter - Penny Scott LPN - 08/25/2023 1:39 PM EST Pt added he also needs a replacement reader Daija 2. The one he just got 2 months ago was damaged and he needs a replacement. Pt reports he spoke with his insurance and they will cover a new one. Spoke with [facility] and they just need a new Rx sent to them and they can sent out to pt. Penny Scott LPN * Telephone Encounter - Penny Scott LPN - 08/25/2023 11:12 AM EST Pt having nausea off and on and requesting medication below. Please advise pt when this has been sent. Patient has been identified by name and date of : Yes, Provider Dr. Glover Date 08/25/23 Time 11:15 am Patient phones for refill(s): Requested Prescriptions Pending Prescriptions Disp Refills promethazine (PHENERGAN) 25 mg tablet 30 tablet 2 Sig: Take 1 tablet by mouth every 6 hours as needed. Date of last office visit in primary care: 06/23/2023 Date of next office visit in primary care: 10/11/2023 Please advise. Thank you. Penny Scott LPN. documented in this encounterTogus [facility] Center12-25-2023 Miscellaneous Notes* Telephone Encounter - Yolanda Rusesll APRN.CNP - 06/20/2023 10:58 AM EST Your covid test is positive. Follow the [...] up with PCP or ER. Yolanda Russell APRN.KAMILA documented in this encounterTogus Va Medical Center12-24-2023 Instructions* Patient Instructions* Juana Vazquez APRN.CNP - 06/19/2023 8:35 AM EST ASSESSMENT/PLAN: 1. [...] Discussed expected course of illness Juana Vazquez APRN.RISK AND COMPLIANCE ANALYTICS DIRECTOR Treatment for Viral Upper Respiratory Tract Infections Your body will kill off the virus by itself. Additionally, you can prime your body's immune system.This may help you get better more quickly. Drink lots of fluids Make sure you are eating well Get plenty of rest We do not have any medications that kill off these viruses. Antibiotics are used to treat bacterialinfections; however, they are not active against viral infections. There are some things that mighthelp you feel better, though. Vaporizers, humidifiers, hot showers, and hot fluids help open respiratory and sinus passages [place] Nasal [place] may offer relief of nasal and head [...] worse rather than better documented in this encounterTogus Va Medical Center12-24-2023 History of Present illness Narrative* Juana Vazquez APRN.KAMILA - 06/19/2023 8:25 AM EST Subjective Sore Throat Associated symptoms include congestion. Pertinent negatives include no coughing, ear pain or shortness of breath. Esvin Cross Sr. is a 78 year old male [...] in stage 3 chronic kidney disease (HCC) ([facility]) Background diabetic retinopathy(362.01) 09/18/2008 [facility]. Benign paroxysmal positional vertigo 09/28/2021 Cataract of left eye Chronic kidney disease, unspecified CKD (chronic kidney disease) stage 3, GFR 30-59 ml/min ([facility]) 05/26/2017 Coloboma of iris OD Depressive disorder, not elsewhere classified Erectile dysfunction associated with type 2 diabetes mellitus ([facility]) ([facility]) 07/09/2008 Esophageal reflux Essential hypertension, benign Hyperplasia [...] foot ulcer, limited to breakdown of skin ([facility]) 04/20/2022 Shoulder pain 09/25/2008 Right. Tubular adenoma of colon 08/10/2016 Type II or unspecified type diabetes mellitus with ophthalmic manifestations, uncontrolled(250.52) 09/18/2008 iddm Unspecified asthma(493.90) Vitreous hemorrhage ([facility]) 04/19/2018 Added automatically from request for surgery [id number] Vitreous hemorrhage of left eye ([facility]) PAST SURGICAL HISTORY Procedure Laterality Date AVASTIN [...] with breakfast. flash glucose scanning reader (FREESTYLE DAIJA 2 READER) Use continuously to monitor glucose, IDDM,E 11.42 Insulin [place], Disposable, (1ST TIER UNIFINE PENTIPS) 31 gauge [...] mouth once daily. flash glucose sensor (FREESTYLE DAIJA 2 SENSOR) kit Use one sensor every [...] Discussed expected course of illness Juana Vazquez APRN.RISK AND COMPLIANCE ANALYTICS DIRECTOR documented in this encounterTogus Va Medical Center12-14-2023 Instructions* Patient Instructions* America Johnston APRN.RISK AND COMPLIANCE ANALYTICS DIRECTOR - 06/09/2023 10:01 AM EST Screening schedule [...] review all the medicines you take, even wcsi-nkx-vzazuhb medicines. As you get older, the way medicines work in your body can change. Some medicines, or combinations of medicines, can make you sleepy or dizzy andcan cause you to fall. 3. Have your [...] have certain medical conditions. documented in this encounterTogus Va Medical Center12-14-2023 History of Present illness Narrative* America Johnston APRN.CNP - 06/09/2023 9:59 AM EST Esvin West Sr. is a 78 year old male here [...] PCP - General Chanda Phillips APRN- endocrinology Victor Manuel Swenson DO- nephrology Radha Cohn MD-ophthalmology Marsha Eric MD-podiatry Medical/Family history review Reviewed and updated problem list, medical/surgical/family/social history, medications, and allergies. Opioid use review Opioid Medications (last 90 days) Some values may be hidden. Unless noted otherwise, only the newest values recorded on each date aredisplayed. Opioid Medications No data to display. Depression screening Depression Screening PHQ-2 Score 04/27/2022 0 Depression screening tool completed and reviewed. Based on score and interview, patient is not at risk for depression. Screening tool discussed with patient, and I recommended no further interventionat this time. Cognitive screening Mini Cog Score: [...] provided America Johnston APRN.CNP documented in this encounterTogus Va Medical Center10-31-2023 Miscellaneous Notes* Telephone Encounter - Ashley Oakley RN - 04/26/2023 12:52 PM EDT duplicate request * Telephone Encounter - Brina Montero - 04/26/2023 11:43 AM EDT PT needs the 7 day sent to [employer] and the 90 day supply sent to mail delivery he only has 2 left please assist. * Telephone Encounter - Brina Montero - 04/26/2023 11:40 AM EDT Patient has been identified by name and date of : Yes Requested Prescriptions Pending Prescriptions Disp Refills empagliflozin (JARDIANCE) 10 mg tablet 7 tablet 0 Sig: Take 1 tablet by mouth daily with breakfast for 7 days. RX INSTRUCTIONS: Patient aware RX will be sent to pharmacy. No need to notify patient. Brina Montero documented in this encounterTogus Va Medical Center10-31-2023 Evaluation note* Diagnosis Type 2 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 disease, with long-term current use of insulin, unspecified whether stage 3a or 3b CKD (HCC) Type 2 diabetes mellitus with diabetic polyneuropathy, with long-term current use of insulin (HCC) documented in this encounter [facility]10-23-2023 History of Present illness Narrative* Jovanna Milian OA - 04/18/2023 3:57 PM EDT Visual Field Testing documented in this encounterTogus Va Medical Center10-18-2023 Miscellaneous Notes* Telephone Encounter - Damien Hdz MA - 04/13/2023 10:41 AM EDT [...] Pleasecall patient when completed. documented in this encounterTogus Va Medical Center10-18-2023 Instructions* Patient Instructions* Radha Cohn MD - 04/13/2023 9:11 AM EDT Images from the original note were not included. documented in this encounterTogus Va Medical Center10-18-2023 History of Present illness Narrative* Radha Cohn [...] others. I have seen and examined Esvin Brett Olvera.. I have discussed the case and the management of this patient's care with the Resident/Fellow, if applicable. I also have reviewed and agree with the assessment and plan as stated above and agree withall of its relevant components. Radha Cohn MD documented in this encounterTogus Va Medical Center10-18-2023 Evaluation note* Diagnosis Type 2 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 disease, with long-term current use of insulin, unspecified whether stage 3a or 3b CKD (HCC) Type 2 diabetes mellitus with diabetic polyneuropathy, with long-term current use of insulin (HCC) documented in this encounter [facility]10-05-2023 Instructions* Patient Instructions* Haydee Christina APRN.RISK AND COMPLIANCE ANALYTICS DIRECTOR - 03/31/2023 3:56 PM EDT PLAN: -Please get labs drawn today or within the next week. I will contact you via phone [phone] with results. -Ok to take the Jardiance at lunch time to see if that helps with low sugar -Discussed need for good diabetes, blood pressure and cholesterol control to prevent disease progression -Recommend BP goal of 130/80 or less. Please contact the office if your blood pressure is less qktr374/70 or higher than 160/90 -Follow low salt [...] if indicated by lab results Ronal Corona [facility] Office: [phone] now seeing patients in [place]- can check at the front office representative Please bring a complete list of your [...] improve our service to you by calling [phone] You may be receiving a survey regarding your care today. If you do, please take a few minutes to fill it out and send it back. It would be greatly appreciated. 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 Benign paroxysmal positional vertigo 09/28/2021 Cataract of left eye Chronic kidney disease, unspecified CKD (chronic kidney disease) stage 3, GFR 30-59 ml/min ([facility]) 05/26/2017 Coloboma of iris OD Depressive disorder, not elsewhere classified Erectile dysfunction associated with type 2 diabetes mellitus ([facility]) 07/09/2008 Esophageal reflux Essential hypertension, benign Hyperplasia [...] foot ulcer, limited to breakdown of skin ([facility]) 04/20/2022 Shoulder pain 09/25/2008 Right. Tubular adenoma of colon 08/10/2016 Type II or unspecified type diabetes mellitus with ophthalmic manifestations, uncontrolled(250.52) 09/18/2008 iddm Unspecified asthma(493.90) Vitreous hemorrhage ([facility]) 04/19/2018 Added automatically from request for surgery [id number] Vitreous hemorrhage of left eye ([facility]) Current Outpatient Medications on File Prior to Visit Medication Sig meclizine (ANTIVERT) 25 mg tab Take 1 tablet by mouth three times daily as needed. flash glucose sensor (FREESTYLE DAIJA 14 DAY SENSOR) kit 1 Each every 2 weeks. Diagnoses: ICD10: E11.22, N18.32, Z79.4; E11.42, Z79.4. Sig: Check glucose 4 or more times per day. Patient on multiple insulin doses. Insulin [place], Disposable, (1ST TIER UNIFINE PENTIPS) 31 gauge [...] and 4 PM flash glucose scanning reader (SpreadShout DAIJA 14 DAY READER) Diagnoses: ICD10: E11.22, N18.32, [...] pain or pressure, palpitations, dizziness, lightheadedness. Denies COBIAN. Admits to edema to intermittent lower leg [...] week. I will contact you via phone [phone] with results. -Ok to take the Jardiance at lunch time to see if that helps with low sugar -Discussed need for good diabetes, blood pressure and cholesterol control to prevent disease progression -Recommend BP goal of 130/80 or less. Please contact the office if your blood pressure is less tsep520/70 or higher than 150/90 -Follow low salt [...] by lab results Ronal Corona CNP Office: [phone] now seeing patients in [place]- can check at the front office representative if this is easier for you due to distance Haydee Christina CNP Spent 34 minutes in the visit and reviewing the chart. documented in this encounterTogus Va Medical Center09-08-2023 Miscellaneous Notes* Telephone Encounter - Jaimee Fang MA - 03/04/2023 9:35 AM EDT [employer] SENT A FAX FOR MOST RECENT OFFICE NOTE- FAXED SUCCESSFULLY TO [employer]OUGH [employer] documented in this encounterTogus Va Medical Center08-17-2023 Instructions* Patient Instructions* Marsha Eric 02/10/2023 8:47 AM EDT Diabetes Foot Care [...] (or decreased sensation in your feet) a access clerk should always cut your toenails. Be Careful [...] Go to your health care provider or access clerk to treat these conditions. documented in this encounterTogus Va Medical Center08-17-2023 History of Present illness Narrative* Marsha Eric [...] 5.9 4.2 - 5.6 % Final Comment: Location:[facility], [address] [place], [address] Point of care (POC) Hemoglobin A1c (HGBA1C) [...] specific diabetes management situations: The POC device barometers calibrator provides a normal range of 4.2% to 6.5% for the HGBA1C POC test. However, the [place] [employer] guidelines indicate that patients with [...] kidney disease (HCC) Background diabetic retinopathy(362.01) 09/18/2008 [facility]. Benign paroxysmal positional vertigo 09/28/2021 Cataract of left eye Chronic kidney disease, unspecified CKD (chronic kidney disease) stage 3, GFR 30-59 ml/min ([facility]) 05/26/2017 Coloboma of iris OD Depressive disorder, [...] 04/19/2018 Added automatically from request for surgery [id number] Vitreous hemorrhage of left eye (HCC) Current Outpatient Medications Medication Sig flash glucose scanning reader (FREESTYLE DAIJA 2 READER) Use continuously to monitor glucose, IDDM,E 11.42 empagliflozin (JARDIANCE) 10 mg tablet Take 1 tablet by mouth daily with breakfast. Insulin [place], Disposable, (1ST TIER UNIFINE PENTIPS) 31 gauge [...] mouth once daily. flash glucose sensor (FREESTYLE DAIJA 2 SENSOR) kit Use one sensor every [...] ALLERGIES Allergen Reactions Cortisone Other: See Comments [place] real hot, as if someone threw boiling [...] Pain Ledy Campbell LPN documented in this encounterTogus Va Medical Center08-16-2023 Instructions* Patient Instructions* Chanda Phillips APRN.RISK AND COMPLIANCE ANALYTICS DIRECTOR - 02/09/2023 10:06 AM EDT Continue lantus Continue jardiance (per nephrology) Humalog per sliding scale at meals: If Blood Glucose (mg/dL) is < 150 Give 0 units 151-200 Give 2 unit 201-250 Give 3 units 251-300 Give 4 units >301 Give 5 units Follow up in 6 months Chanda Phillips, MSN, APPLICATIONS PACKAGER, JAVA WEB USER INTERFACE DEVELOPER-C, CDE Endocrinology [facility] Medical Office [facility]/[address] [place], [place] [address] Fax: documented in this encounterTogus Va Medical Center08-16-2023 History of Present illness Narrative* Chanda Phillips APRN.CNP - 02/09/2023 10:00 AM EDT Reason for Consultation: DM Type 2 Referring Physician: Jesse Glover MD [id number] [facility] [address] HISTORY OF PRESENT ILLNESS Mr. West is [...] States he is due for a new [employer] reader. Receives supplies form [employer] He varies his dose of humalog vs following SS below. Also may take insulin between meals if elevated. Fhx of DM in mother, siblings, Maternal Aunt. Under the care of podiatry, nephrology Mild anemia, secondary hyperparathyroidism per nephrology Nephrology started SGLT2 Seeing cardiology in [place]. Denies hx of [place], CVA, stents, CABG/CAD Current diabetes regimen is [...] checking his blood glucose continuously with Freestyle Daija 2 CGM he does bring a log book today for review. LDE Blood Sugar Frequency: *he is concerned about lower BG level in early AM. Freestyle Daija 14 day (01/26/23 to 02/09/23)--see procedure note [...] kidney disease) stage 3, GFR 30-59 ml/min ([facility]) 05/26/2017 Coloboma of iris OD Depressive disorder, not elsewhere classified Erectile dysfunction associated with type 2 diabetes mellitus ([facility]) 07/09/2008 Esophageal reflux Essential hypertension, benign Hyperplasia [...] foot ulcer, limited to breakdown of skin ([facility]) 04/20/2022 Shoulder pain 09/25/2008 Right. Tubular adenoma of colon 08/10/2016 Type II or unspecified type diabetes mellitus with ophthalmic manifestations, uncontrolled(250.52) 09/18/2008 iddm Unspecified asthma(493.90) Vitreous hemorrhage ([facility]) 04/19/2018 Added automatically from request for surgery [id number] Vitreous hemorrhage of left eye ([facility]) PAST SURGICAL HISTORY Procedure Laterality Date AVASTIN [...] Outpatient Medications Medication Sig Dispense Refill Insulin [place], Disposable, (1ST TIER UNIFINE PENTIPS) 31 gauge x 09/09 Use as directed 4 times a day. [...] 90 tablet 3 flash glucose sensor (FREESTYLE DAIJA 2 SENSOR) kit Use one sensor every 14 days, IDDM, E11.42 6 Each 3 flash glucose scanning reader (FREESTYLE DAIJA 2 READER) Use continuously to monitor glucose, [...] Type 2 DM - Uncontrolled E11.65 Insulin: [id number] Each 5 blood sugar diagnostic (BLOOD GLUCOSE TEST) test strip Test blood sugar(s) 3 times daily. Dx: Type 2 DM - Uncontrolled E11.65 Insulin: Yes 100 Strip 11 cholecalciferol (VITAMIN [...] 67 Resp 16 Ht 177.8 cm (5' 10) Wt 88.2 kg (194 lb 8 oz) [...] edema, with long-term current use of insulin ([facility]) (primary encounter diagnosis) (E11.42, Z79.4) Type 2 diabetes mellitus with diabetic polyneuropathy, with long-term current use of insulin ([facility]) (E11.22, N18.30, Z79.4) Type 2 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 disease, with long-term current use of insulin, unspecified whether stage 3a or 3b CKD ([facility]) Comment: Glycemic control is at goal per A1C. Reviewed the importance of taking humalog at the start of the meal and avoiding between meal doses. Plan: HEMOGLOBIN A1C (POC), flash glucose scanning reader (FREESTYLE DAIJA 2 READER), empagliflozin (JARDIANCE) 10 mg tablet [...] (HCC) Comment/Plan: flash glucose scanning reader (FREESTYLE DAIJA 2 READER) Continue daija Follow SS humalog Avoid taking humalog between meals (I10) Hypertension goal BP (blood pressure) < 140/90 Comment/Plan: Managed per PCP/nephrology (E78.5) Hyperlipidemia, unspecified hyperlipidemia type Comment: taking pravastatin Plan:managed per PCP I spent a total of 30 minutes on the date of the service which included preparing to see the patient, esqr-[id number] patient care, completing clinical documentation, obtaining and/or reviewing separately obtained history, performing a medically appropriate examination, counseling and educating the pat ient/family/caregiver, ordering medications, tests, or procedures, and communicating results to thepatient/family/caregiver. Chanda Phillips, MSN, APPLICATIONS PACKAGER, JAVA WEB USER INTERFACE DEVELOPER-C, CDE Endocrinology [facility] Office [facility]/[address] [place] [address] Fax: documented in this encounterTogus Va Medical Center08-16-2023 Procedure note* Jaimee Fang MA - 02/09/2023 9:46 AM EDTProcedure(s): EXTERNAL MASTIC FLOOR LAYER, CGM SYS Images from the original note were not included. documented in this encounterTogus Va Medical Center08-16-2023 Evaluation note* Diagnosis Type 2 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 disease, with long-term current use of insulin, unspecified whether stage 3a or 3b CKD (HCC) Type 2 diabetes mellitus with diabetic polyneuropathy, with long-term current use of insulin (HCC) Hypoglycemia due to type 2 diabetes mellitus (HCC) Hypertension goal BP (blood pressure) < 140/90 Unspecified essential hypertension Hyperlipidemia, unspecified hyperlipidemia type documented in this encounter [facility]06-22-2023 Instructions* Patient Instructions* Marsha Eric - 12/16/2022 8:18 AM EDT Would continue with lotion to feet daily Use pummice stone as needed for callus Continue with diabetic shoe If you need this filed down, call for followup documented in this encounterTogus Va Medical Center06-22-2023 History of Present illness Narrative* Marsha Eric [...] (H) 4.3 - 5.6 % Final Comment: [place] Diabetes [employer] guidelines indicate that patients with HgbA1c in the range 5.7-6.4% are at increased risk for development of diabetes, and intervention by lifestyle modification may be beneficial. HgbA1c greater or equal to 6.5% is considered diagnostic of diabetes. PCP: Jesse Glover MD PAST MEDICAL HISTORY Diagnosis Date Anemia in stage 3 chronic kidney disease (HCC) Background diabetic retinopathy(362.01) 09/18/2008 [facility]. Benign paroxysmal positional vertigo 09/28/2021 Cataract of left eye Chronic kidney disease, unspecified CKD (chronic kidney disease) stage 3, GFR 30-59 ml/min ([facility]) 05/26/2017 Coloboma of iris OD Depressive disorder, [...] foot ulcer, limited to breakdown of skin ([facility]) 04/20/2022 Shoulder pain 09/25/2008 Right. Tubular adenoma of colon 08/10/2016 Type II or unspecified type diabetes mellitus with ophthalmic manifestations, uncontrolled(250.52) 09/18/2008 iddm Unspecified asthma(493.90) Vitreous hemorrhage (HCC) 04/19/2018 Added automatically from request for surgery [id number] Vitreous hemorrhage of left eye (HCC) Current [...] mouth once daily. flash glucose sensor (FREESTYLE DAIJA 2 SENSOR) kit Use one sensor every 14 days, IDDM, E11.42 flash glucose scanning reader (FREESTYLE DAIJA 2 READER) Use continuously to monitor glucose, IDDM,E 11.42 latanoprost (XALATAN) 0.005 % ophthalmic solution INSTILL 1 DROP IN BOTH EYES DAILY AT BEDTIME polyethylene glycol 3350 (MIRALAX) 17 gram/dose powder Take 17 g by mouth every other day. meclizine (ANTIVERT) 25 mg tab Take 1 tablet by mouth three times daily as needed. Insulin [place], Disposable, (1ST TIER UNIFINE PENTIPS) 31 gauge [...] ALLERGIES Allergen Reactions Cortisone Other: See Comments [place] real hot, as if someone threw boiling [...] that comes and goes. documented in this encounterTogus Va Medical Center06-20-2023 Miscellaneous Notes* Telephone Encounter - Tianna Schneider Ma - 12/14/2022 8:14 AM EDT Form Faxed, Transmission ok CLOSED * Telephone Encounter - Chanda Phillips APRN.CNP - 12/14/2022 7:35 AM EDT Form signed. Thank you * Telephone Encounter - Tianna Schneider Ma - 12/13/2022 2:09 PM EDT Form on docs desk/basket for review from [employer]. Please review and sign. Needs to be faxed to [phone]. Attached last office note. documented in this encounterTogus [facility] Center06-16-2023 Miscellaneous Notes* Telephone Encounter - Sherley Vallejo [...] - 12/10/2022 2:21 PM EDT Please contact [employer] so they send us the order form for CGM supplies. Thank you * Telephone Encounter - Roz Segovia LPN - 12/10/2022 1:41 PM EDT No [employer] forms have been rec'd to pcp's office. Message left to endo office in [place]. It looks like they will be getting forms. * Telephone Encounter - America Mcginnis APRN.CNP - 12/10/2022 10:48 AM EDT We will order using [employer]'s form once we receive it instead of faxing a prescription to resolve this issue America Mcginnis APRN.CNP * Telephone Encounter - Damien Hardy RN - 12/10/2022 9:39 AM EDT [...] 08/24/22 I have two prescriptions for Freestyle Daija 2 bus analyst and sensor that we were waiting for a fax numberto send to [facility]. Called patient and he said he has to use [employer] (Phone ). Pt called and reports he called the barometers calibrator and they told him the Rx needs to go to [facility] andthe phone # is [phone]. I called [email or web address] and the order forms were going to his PCP. I updated information and they are goingto fax us new forms with Chanda's information. Patient has been identified by name and date of : Yes, Provider Dr Glover Date 12/10/22 [id number]. Patient phones for refill(s): Requested Prescriptions Pending Prescriptions Disp Refills flash glucose sensor (FREESTYLE DAIJA 2 SENSOR) kit 6 Each 3 Sig: [...] 6.3 01/01/2022 5.7 Please advise. Thank you. Damien Hardy RN documented in this encounterTogus [facility] Center06-16-2023 Evaluation note* Diagnosis Type 2 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 disease, with long-term current use of insulin, unspecified whether stage 3a or 3b CKD (HCC) Type 2 diabetes mellitus with diabetic polyneuropathy, with long-term current use of insulin (HCC) Hypoglycemia due to type 2 diabetes mellitus (HCC) documented in this encounter [facility] History of Present illness Narrative* America Older, 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 - 10/27/2022 8:48 AM EDT CC: Patient presents with: F/U 6 months HPI Esvin West Sr. is a 77 year old male who presents today for above. He is doing well overall, denies any concerns or issues today. Taking all medications as prescribed denies side effects. Blood sugars are well controlled, monitored with CGM. 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 He has CKD, monitored by [...] kidney disease (HCC) Background diabetic retinopathy(362.01) 09/18/2008 [facility] eye. Benign paroxysmal positional vertigo 09/28/2021 Cataract of left eye Chronic kidney disease, unspecified CKD (chronic kidney disease) stage 3, GFR 30-59 ml/min ([facility]) 05/26/2017 Coloboma of iris OD Depressive disorder, [...] 04/19/2018 Added automatically from request for surgery [id number] Vitreous hemorrhage of left eye ([facility]) PAST SURGICAL HISTORY Procedure Laterality Date AVASTIN [...] AM and 4 PM flash glucose sensor (HeetchYLE DAIJA 2 SENSOR) kit Use one sensor every 14 days, IDDM, E11.42 flash glucose scanning reader (FREESTYLE DAIJA 2 READER) Use continuously to monitor glucose, [...] mouth three times daily as needed. Insulin [place], Disposable, (1ST TIER UNIFINE PENTIPS) 31 gauge [...] Patient agreeable to treatment plan. America Mcginnis APRN.KAMILA documented in this encounterTogus [facility] Medical Center04-24-2023 Instructions* Patient Instructions* Victor Manuel Krishnan DO - 10/18/2022 10:47 AM EDT [...] will be greatly appreciated. documented in this encounterTogus Va Medical Center04-24-2023 History of Present illness Narrative* Victor Manuel Krishnan DO - 10/18/2022 10:40 AM EDT [facility] SERVICE DATE: 10/18/2022 SERVICE TIME: 10:56 AM CHIEF COMPLAINT: Mr. West is a 77 year old male with a PMHx of diabetes mellitus typi II and hypertension who presents with chronic kidney disease stage IIIb. Used to follow with Dr. Marrero and Madiha Hamm. Established care with nj 10/14/2021 Chronic kidney disease stage IIIb likely [...] Kidney Disease, With Long-Term Current Use of Insulin([facility]) Numbness and Tingling of Right Arm Primary Open Angle Glaucoma (Poag) of Both Eyes, Severe Stage Right Foot Ulcer, Limited to Breakdown of Skin ([facility]) Hypoglycemia Due to Type 2 Diabetes Mellitus ([facility]) MEDICATIONS: NIFEdipine ER (PROCARDIA XL) 90 mg 24 hr tablet Take 1 tablet by mouth once daily. dorzolamide-timolol (COSOPT) 22.3-6.8 mg/mL ophthalmic solution Use 1 Drop in both eyes twice daily. Use at 8 AM and 4 PM insulin glargine (LANTUS SOLOSTAR U-100 INSULIN) 100 unit/mL (3 mL) Inject subcutaneously 23 units daily in the AM flash glucose sensor (Storm Tactical ProductsSTYLE DAIJA 2 SENSOR) kit Use one sensor every 14 days, IDDM, E11.42 flash glucose scanning reader (Storm Tactical ProductsSTYLE DAIJA 2 READER) Use continuously to monitor glucose, [...] mouth three times daily as needed. Insulin [place], Disposable, (1ST TIER UNIFINE PENTIPS) 31 gauge [...] ALLERGIES Allergen Reactions Cortisone Other: See Comments [place] real hot, as if someone threw boiling [...] - Follow up in 6 months SIGNATURE: Victor Manuel Krishnan DO PATIENT NAME: Esvin West Sr. DATE: October 18, 2022 TIME: 10:57 AM OFFICE NUMBER: [phone] CC: PRIMARY CARE PHYSICIAN: Jesse Glover MD documented in this encounterCleveland [id number] Instructions* Patient Instructions* Radha Cohn MD - 10/06/2022 12:00 PM EDT Images from the original note were not included. documented in this encounterTogus Va Medical Center04-12-2023 History of Present illness Narrative* Radha Cohn [...] components. Radha Cohn MD documented in this encounterTogus Va Medical Center03-28-2023 Miscellaneous Notes* Telephone Encounter - Madiha Dhaliwal LPN - 09/21/2022 10:53 AM EDT Patient has [...] you. Madiha Dhaliwal LPN documented in this encounterTogus Va Medical Center03-21-2023 History of Present illness Narrative* Marsha Hernesto - 09/14/2022 8:48 AM EDT Last saw [...] Patient, Diabetic Foot Check documented in this encounterTogus Va Medical Center03-21-2023 Instructions* Patient Instructions* Marsha Eric - 09/14/2022 [...] (or decreased sensation in your feet) a access clerk should always cut your toenails. Be Careful [...] Go to your health care provider or access clerk to treat these conditions. documented in this encounterTogus Va Medical Center03-02-2023 Miscellaneous Notes* Telephone Encounter - Jovi Acharya RN - 08/26/2022 11:12 AM EST Prescription for Dorzolamide- Timolol sent to local pharmacy 08/23/2022. Receipt confirmed by pharmacy. No request for prior authorization received. Jovi Acharya RN August 26, 2022 11:14 AM * Telephone Encounter - Jovi Acharya RN - 08/20/2022 4:41 PM EST Patient having issues with obtaining. Cosopt (Dorzolamide- Timolol). Have submitted as both name brand and generic. Please advise. Jovi Acharya RN August 20, 2022 4:42 PM * Telephone Encounter - Cristal Alas - 08/20/2022 1:37 PM EST Patient calls to report that his insurance is not wanting to cover it. Please notify patient of another medication. documented in this encounterTogus Va Medical Center02-28-2023 Miscellaneous Notes* Telephone Encounter - Tianna Schneider Ma - 08/24/2022 1:12 PM EST I have two prescriptions for Freestyle Daija 2 bus analyst and sensor that we were waiting for a fax number to send to [employer]. Called patient and he said he has to use [employer] (Phone ) I called [email or web address] and the order forms were going to his PCP. I updated information and they are goingto fax us new forms with Chanda's information. documented in this encounterTogus Va Medical Center02-08-2023 Miscellaneous Notes* Telephone Encounter - Tianna Schneider Ma - 08/04/2022 10:43 AM EST Called and spoke with PT, expressed understanding Encounter closed * Telephone Encounter - Chanda Phillips APRN.CNP - 08/03/2022 4:12 PM EST Daija report reviewed He is in range 79 % Avg is 155. Continue as is for now. Thank you, Chanda * Telephone Encounter - Tianna Schneider Ma - 08/02/2022 11:15 AM EST Patient came into the office to have his Daija downloaded. Report is on your desk to review. documented in this encounterTogus Va Medical Center2023 History of Present illness Narrative* Tianna Schneider Ma - 08/02/2022 11:11 AM EST Patient came into office and brought his [employer] Daija 2 device. It was successfully downloaded and report was printed and given to provider. documented in this encounterTogus Va Medical Center01-20-2023 Miscellaneous Notes* Telephone Encounter - Jovi Acharya RN - 07/16/2022 1:39 PM EST After review of the submitted prescription, noted the prescription had CLARKE checked. Has note been in the past. Pended prescription in a refill encounter to Dr. Cohn to approve to see if taking the CLARKE off theprescription will allow it to be filled. Jovi Acharya RN July 16, 2022 1:41 PM * Telephone Encounter - Jovi Acharya RN - 07/16/2022 8:23 AM EST Images from the original note were not included. Dona Bergeron You 9 days ago MB If I [...] please advise the pharmacy documented in this encounterTogus Va Medical Center01-20-2023 Miscellaneous Notes* Telephone Encounter - Jovi Acharya RN - 07/16/2022 1:36 PM EST Noted that CLARKE was checked on original prescription sent. Patient has been on generic Cosopt in past and should not be having issues with the new prescription. Only change noted was the CLARKE. Pended with CLARKE taken out to Dr. Cohn to approve. Jovi Acharya RN July 16, 2022 1:39 PM documented in this encounterTogus Va Medical Center01-03-2023 History of Present illness Narrative* Radha Cohn [...] components. Radha Cohn MD documented in this encounterTogus Va Medical Center12-30-2022 Miscellaneous Notes* Telephone Encounter - Dona Moscoso - 06/25/2022 1:28 PM EST Patient has appointment with Dr. Cohn on 06/29/22 documented in this encounterTogus Va Medical Center12-21-2022 Instructions* Patient Instructions* Marsha Eric - 06/16/2022 [...] (or decreased sensation in your feet) a access clerk should always cut your toenails. Be Careful [...] Go to your health care provider or access clerk to treat these conditions. documented in this encounterTogus Va Medical Center12-21-2022 History of Present illness Narrative* Marsha Eric - 06/16/2022 8:57 AM EST Initial Office Visit Subjective: This 77 year old male presents to clinic for diabetic foot check. Patient has the following complaints: prior ulceration of right 1st and 2nd toe. Patient presents to clinic for follow-up right hallux and right 2nd toe ulceration. Had been seeingDr. Mae [place] in [place] and he is now healed. Patient is [...] kidney disease (HCC) Background diabetic retinopathy(362.01) 09/18/2008 [facility] eye. Benign paroxysmal positional vertigo 09/28/2021 Cataract of left eye Chronic kidney disease, unspecified CKD (chronic kidney disease) stage 3, GFR 30-59 ml/min ([facility]) 05/26/2017 Coloboma of iris OD Depressive disorder, not elsewhere classified Erectile dysfunction associated with type 2 diabetes mellitus ([facility]) 07/09/2008 Esophageal reflux Essential hypertension, benign Hyperplasia [...] foot ulcer, limited to breakdown of skin ([facility]) 04/20/2022 Shoulder pain 09/25/2008 Right. Tubular adenoma of colon 08/10/2016 Type II or unspecified type diabetes mellitus with ophthalmic manifestations, uncontrolled(250.52) 09/18/2008 [facility] Unspecified asthma(493.90) Vitreous hemorrhage ([facility]) 04/19/2018 Added automatically from request for surgery [id number] Vitreous hemorrhage of left eye ([facility]) Current Outpatient Medications Medication Sig empagliflozin (JARDIANCE) [...] mouth every other day. flash glucose sensor (Storm Tactical ProductsSTYLE DAIJA 14 DAY SENSOR) kit 1 Each every 2 weeks. Diagnoses: ICD10: E11.22, N18.32, Z79.4; E11.42, Z79.4. Sig: Check glucose 4 or more times per day. Patient on multiple insulin doses. meclizine (ANTIVERT) 25 mg tab Take 1 tablet by mouth three times daily as needed. Insulin [place], Disposable, (1ST TIER UNIFINE PENTIPS) 31 gauge [...] 4 PM flash glucose scanning reader (FREESTYLE DAIJA 14 DAY READER) Diagnoses: ICD10: E11.22, N18.32, [...] ALLERGIES Allergen Reactions Cortisone Other: See Comments [place] real hot, as if someone threw boiling [...] Objective: [facility]: Pt is a well developed [...] length and thickness Marsha Eric DPM * Damien Butler RN - 06/16/2022 8:49 AM EST Patient presents with: Right Foot - Established Patient, Ulcer Patient presents for Ulcer to Right Hallux and 2nd toe. Patient states that it began in the beginning of March and he has been following up with the wound center in [place] for it. Wound is healing,but they want him to follow up with New Vehicle Sales Consultant. documented in this encounterTogus Va Medical Center12-06-2022 Miscellaneous Notes* Telephone Encounter - Jovi Arreguin - 06/01/2022 3:57 PM EST New pharmacy Patient phones requesting refills as follows: Requested Prescriptions Pending Prescriptions Disp Refills empagliflozin (JARDIANCE) 10 mg tablet 30 tablet 5 Sig: Take 1 tablet by mouth daily with breakfast. Please review and advise. Jovi Arreguin documented in this encounterTogus Va Medical Center12-02-2022 NoteHNO ID: [id number] Author: Mae Campbell DPM Service: ? Author Type: Physician [...] kidney doctor who referred him to the [facility]. He had wound dressed at kidney doctor's [...] up with me in the office at [facility] and we will start routine dm foot [...] foot, limited to breakdown of skin 707.15 L97.511[facility] [id number] History of Present illness Narrative* Mae Campbell, NEHAM - 05/28/2022 9:53 AM EST Images from [...] kidney doctor who referred him to the [facility]. He had wound dressed at kidney doctor's [...] up with me in the office at [facility] and we will start routine dm foot [...] of skin 707.15 L97.511 documented in this encounterTogus Va Medical Center12-01-2022 Instructions* Patient Instructions* Estefania Herrera RN - [...] towel to dry the wound area) 4. Swisher wound and krystyna-wound with betadine. 5. Cover with 4x4 gauze [...] but never between the toes. See your access clerk every three months for foot and nail [...] doctor Report any of the following changes [phone] or go to the Emergency Department: Fever [...] and legs daily, avoiding between your toes Mae Campbell DPM/mikaela/alka documented in this encounterCleveland [id number] Nurse Note* Estefania Herrera RN - 05/27/2022 4:07 PM EST Nursing Documentation Pertinent Medical History: long hx of callous, CKD, HTN, DM Wound Etiology according to patient: Callous fell off - wound beneath Patient arrived via: ambulatory with Home Care Company/Nursing Facility: none Consent captured for debridement per Sulma until September 2022 Consent captured for debridement per Mae Ca until September 2022 Anticoagulant Therapy: ASA 81 ACTIVE CARE PER PROVIDER: Mae Campbell DPM WOUND ASSESSMENT: Refer to Provider's [...] with 2 Conform Other: Single layer of Tubi-it audit manager size D. COMPRESSION: N/A SPECIAL NEEDS: Coordination of care - N/A Emotional support N/A OR set-up N/A Dermatology Sales Representative N/A Incontinence needs N/A DISCHARGED in stable [...] of questions 5-9, consult the [facility] Estefania Herrera RN/alka documented in this encounterTogus Va Medical Center11-18-2022 NoteHNO ID: [id number] Author: Mae Campbell DPM Service: ? Author Type: Physician [...] kidney doctor who referred him to the [facility]. He had wound dressed at kidney doctor's [...] near healed CONT pro (more content not included)...[facility] [id number] History of Present illness Narrative* Mae Campbell DPM - 05/14/2022 9:22 AM EST [...] kidney doctor who referred him to the [facility]. He had wound dressed at kidney doctor's [...] of skin 707.15 L97.511 documented in this encounterTogus Va Medical Center11-17-2022 Instructions* Patient Instructions* Benson Ngo RN - [...] towel to dry the wound area) 4. Swisher wound and krystyna-wound with betadine. 5. Apply [...] needed to keep the dressing dry. Apply Tubi-it audit manager to both legs to help with swelling. [...] doctor Report any of the following changes [phone] or go to the Emergency Department: Fever [...] healing. [employer] for ordering supplies: Visit your access clerk every 10-12 weeks for callous control. Mae Campbell DPM/aristides/BB documented in this encounterTogus Va Medical Center11-17-2022 Nurse Note* Benson Ngo RN - 05/13/2022 3:05 PM EST Nursing Documentation Pertinent Medical History: long hx of callous, CKD, HTN, DM Wound Etiology according to patient: Callous fell off - wound beneath Patient arrived via: ambulatory with Home Care Company/Nursing Facility: none Consent captured for debridement per Sulma until September 2022 Consent captured for debridement per Mae Ca until September 2022 Anticoagulant Therapy: ASA 81 ACTIVE CARE PER PROVIDER: Mae Campbell DPM WOUND ASSESSMENT: Refer to Provider's [...] with 2 Conform Other: Single layer of Tubi-it audit manager size D. WOUND # 2 - LOCATION: Right Second Toe - Formed from burst blister DEBRIDEMENT: SubQ Post debridement measurements if applicable: L: 0.5 cm x W: 0.4 cm x D: 0.1 cm Cleansed with: Betadine Applied to krystyna-wound skin: Betadine Applied to wound bed: Promogran, Adaptic Covered and secured with: 2x2 gauze and wrap with 2 Conform Other: Single layer of Tubi-it audit manager size D. COMPRESSION: Single layer Tubi-it audit manager size D bilateral SPECIAL NEEDS: Coordination of care - [employer] for dressing supplies Emotional support N/A OR set-up N/A Dermatology Sales Representative N/A Incontinence needs N/A DISCHARGED in stable condition to: Home Ambulatory Global surgical period dates if applicable: N/A PLAN/ORDERS: Return to the wound center to see Dr. Campbell in 2 -3 weeks - or sooner if a problem. Please contact your PCP about your high blood pressure Continue aggressive nutritional support for optimal wound healing. [employer] for ordering supplies: Visit your access clerk every 10-12 weeks for callous control. EDUCATION: [...] and The intended procedure Time Out Communication: 1514 Intended patient and procedure match the source [...] Benson Ngo RN /BB documented in this encounterTogus Va Medical Center11-09-2022 History of Present illness Narrative* Adia Finnegan MD - 05/05/2022 11:35 AM EST 1. Type 2, Insulin dependent Diabetes Mellitus - Hba1c = Hemoglobin A1C (%) Date Value 09/03/2020 10.7 Hemoglobin A1C (POCT) (%) Date Value 01/01/2022 5.7 - Stressed blood pressure and blood sugar control and close follow-up with PCP/lithographic printing machinist 2. Q Proliferative diabetic retinopathy Both Eyes [...] all of its relevant components on 05/05/2022 Adia Finnegan MD [facility] Chair of Ophthalmology Research Professor of Ophthalmology, [facility] Vitreoretinal Staff, [facility] documented in this encounterTogus Va Medical Center11-03-2022 Miscellaneous Notes* Telephone Encounter - Pham Scherer [...] Please advise. Thank you. documented in this encounterTogus Va Medical Center11-02-2022 Miscellaneous Notes* Telephone Encounter - Tianna Schneider Ma - 04/28/2022 3:09 PM EDT Called and spoke with patient and he will call back to schedule.It is to far off for him. CLOSED * Telephone Encounter - Chanda Phillips APRN.CNP - 04/28/2022 12:31 PM EDT Daija reviewed. In range 82% High 19% Very [...] review. Please advise, thanks. documented in this encounterTogus Va Medical Center11-02-2022 History of Present illness Narrative* Tianna Schneider Ma - 04/28/2022 11:29 AM EDT Patient came in and had his Dexcom downloaded which was successful. documented in this encounterTogus Va Medical Center11-01-2022 History of Present illness Narrative* Roz Segovia LPN - 04/27/2022 9:56 AM EDT Printed rx for gabapentin was faxed to the pharmacy at [phone] as the rx printed when the provider signed. * Jesse Glover MD - 04/27/2022 9:18 AM EDT This note was created using NetScientificriter. Subjective Esvin West Sr. is a 77 [...] With Long-Term Current Use of Insulin (Hcc) Punctate Keratitis, Bilateral Pseudophakia of Both Eyes Type 2 Diabetes Mellitus With Diabetic Polyneuropathy, With Long-Term Current Use of Insulin (Hcc) Type 2 Diabetes Mellitus With Stage 3 Chronic Kidney Disease, With Long-Term Current Use of Insulin([facility]) Numbness and Tingling of Right Arm Primary Open Angle Glaucoma (Poag) of Both Eyes, Severe Stage Right Foot Ulcer, Limited to Breakdown of Skin (Hcc) Current Outpatient Medications Medication Sig sulfamethoxazole-trimethoprim (BACTRIM DS,SEPTRA DS) 800-160 mg per tablet Take by mouth twice daily. cephALEXin (KEFLEX) 500 mg capsule Take 500 mg by mouth every 6 hours. empagliflozin (JARDIANCE) 10 mg tablet Take 1 tablet by mouth daily with breakfast. meclizine (ANTIVERT) 25 mg tab Take 1 tablet by mouth three times daily as needed. flash glucose sensor (FREESTYLE DAIJA 14 DAY SENSOR) kit 1 Each every 2 weeks. Diagnoses: ICD10: E11.22, N18.32, Z79.4; E11.42, Z79.4. Sig: Check glucose 4 or more times per day. Patient on multiple insulin doses. Insulin [place], Disposable, (1ST TIER UNIFINE PENTIPS) 31 gauge [...] and 4 PM flash glucose scanning reader ([employer] DAIJA 14 DAY READER) Diagnoses: ICD10: E11.22, N18.32, [...] edema, with long-term current use of insulin ([facility]) - ICD9: 250.50, 362.02, V58.67, ICD10: E11.3593, Z79.4 (primary diagnosis) Continue medications. - INSULIN GLARGINE (U-100) 100 UNIT/ML (3 ML) SUBCUTANEOUS PEN - INSULIN LISPRO (U-100) 100 UNIT/ML SUBCUTANEOUS PEN - COMP METABOLIC PANEL - LIPID PANEL BASIC - HGB A1C - ALBUMIN/CREAT RATIO RND UR - FREESTYLE DAIJA 14 DAY SENSOR KIT 2. Type 2 diabetes mellitus with diabetic polyneuropathy, with long-term current use of insulin ([facility]) - ICD9: 250.60, 357.2, V58.67, ICD10: E11.42, Z79.4 Continue medications. - INSULIN GLARGINE (U-100) 100 UNIT/ML (3 ML) SUBCUTANEOUS PEN - INSULIN LISPRO (U-100) 100 UNIT/ML SUBCUTANEOUS PEN - GABAPENTIN 300 MG CAPSULE - COMP METABOLIC PANEL - LIPID PANEL BASIC - HGB A1C - ALBUMIN/CREAT RATIO RND UR - FREESTYLE DAIJA 14 DAY SENSOR KIT 3. Type 2 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 disease, with long-term current use of insulin, unspecified whether stage 3a or 3b CKD ([facility]) - ICD9: 250.40, 585.3, V58.67, ICD10: E11.22, N18.30, Z79.4 Continue medications. - INSULIN GLARGINE (U-100) 100 UNIT/ML (3 ML) SUBCUTANEOUS PEN - INSULIN LISPRO (U-100) 100 UNIT/ML SUBCUTANEOUS PEN - FREESTYLE DAIJA 14 DAY SENSOR KIT 4. Need for influenza vaccination - ICD9: V04.81, ICD10: Z23 - INFLUENZA SEASONAL QUADRIVALENT HIGH DOSE AGE 65+ 5. Constipation, unspecified constipation type - ICD9: 564.00, ICD10: K59.00 Take every other day. - POLYETHYLENE GLYCOL 3350 17 GRAM/DOSE ORAL POWDER Jesse Glover MD documented in this encounterTogus Va Medical Center11-01-2022 Evaluation note* Diagnosis Type 2 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 disease, with long-term current use of insulin, unspecified whether stage 3a or 3b CKD (HCC) Type 2 diabetes mellitus with diabetic polyneuropathy, with long-term current use of insulin (HCC) Need for influenza vaccination Need for prophylactic vaccination and inoculation against influenza Constipation, unspecified constipation type documented in this encounter [facility]10-31-2022 NoteHNO ID: [id number] Author: Mae Campbell DPM Service: ? Author Type: Physician [...] kidney doctor who referred him to the [facility]. He had wound dressed at kidney doctor's [...] Type 2 diabetes melli (more content not included)...[facility] 04-26-2022 NoteHNO ID: [id number] Author: BRADFORD Lo Service: Radiology Author Type: [...] BY: BRADFORD Lo April 26, 2022 3:52 PMTrinity Health [id number] History of Present illness Narrative* Mae Campbell DPM - 04/26/2022 4:11 PM EDT [...] kidney doctor who referred him to the [facility]. He had wound dressed at kidney doctor's [...] of skin 707.15 L97.511 documented in [facility] History of Present illness Narrative* BRADFORD Lo [...] 26, 2022 3:52 PM documented in this encounterT[facility]22 Instructions* Patient Instructions* Avinash Stratton RN - [...] towel to dry the wound area) 4. Swisher wound and krystyna-wound with betadine. 5. Apply [...] needed to keep the dressing dry. Apply Tubi-it audit manager to both legs to help with swelling. [...] doctor Report any of the following changes [phone] or go to the Emergency Department: Fever [...] for optimal wound healing. Order faxed to [facility] for updated supplies. Please call them tomorrow to confirm your order: Visit your access clerk every 10-12 weeks for callous control. Mae Campbell DPM/sp/tc documented in this encounterT[facility]22 Nurse Note* Avinash Stratton RN - 04/26/2022 2:44 PM EDT Nursing Documentation Pertinent Medical History: long hx of callous, CKD, HTN, DM Wound Etiology according to patient: Callous fell off - wound beneath Patient arrived via: ambulatory with Home Care Company/Nursing Facility: none Consent captured for debridement per Sulma until September 2022 Consent captured for debridement per Mae Ca until September 2022 Anticoagulant Therapy: ASA 81 ACTIVE CARE PER PROVIDER: Mae Campbell DPM WOUND ASSESSMENT: Refer to Provider's [...] with 2 Conform Other: Single layer of Tubi-it audit manager size D. WOUND # 2 - LOCATION: Right Second Toe - Formed from burst blister DEBRIDEMENT: SubQ Post debridement measurements if applicable: L: 0.7 cm x W: 0.7 cm x D: 0.2 cm Cleansed with: Betadine Applied to krystyna-wound skin: Betadine Applied to wound bed: Promogran, Adaptic Covered and secured with: 2x2 gauze and wrap with 2 Conform Other: Single layer of Tubi-it audit manager size D. COMPRESSION: Single layer Tubi-it audit manager size D bilateral SPECIAL NEEDS: Coordination of care - [facility] for dressing supplies Emotional support N/A OR set-up N/A Dermatology Sales Representative N/A Incontinence needs N/A DISCHARGED in stable condition to: Home Ambulatory Global surgical period dates if applicable: N/A PLAN/ORDERS: Return to the wound center to see Dr. Campbell in 2 weeks - or sooner if a problem. Obtain an xray of the right foot. Continue aggressive nutritional support for optimal wound healing. Order faxed to [facility] for updated supplies. Please call them tomorrow to confirm your order: Visit your access clerk every 10-12 weeks for callous control. EDUCATION: [...] and The intended procedure Time Out Communication: 1486 Intended patient and procedure match the source documents. Consent documented and matches the intended procedure. No relevant labs, photos, and/or imaging studies were applicable for review. Sign Out: 1517 SIGN OUT (optional for EMERGENT procedures): No [...] Yes to ALL questions above, [facility] 5. Has the patient been diagnosed [...] to ANY of questions 5-9, [facility] Avinash Stratton RN/haylee documented in this encounterT[facility]10[facility]22 Miscellaneous Notes* Telephone Encounter - Ivett Scherer RN - 04/22/2022 5:09 PM EDT This patient called the wound center to report new onset leg pain on the same leg that his wound dayron. This RN returned the patient's call and left a message on his voice mail box. Will await returning call. Ivett Scherer RN documented in this encounterT[facility]10-26-2022 Instructions* Patient Instructions* Radha Cohn MD - 04/21/2022 10:03 AM EDT Images from the original note were not included. documented in this encounterT[facility]10-[facility] History of Present illness Narrative* Radha Cohn [...] 21, 2022 9:53 AM documented in this encounterT[facility]10-25-2022 NoteHNO ID: [id number] Author: Mae Campbell DPM Service: ? Author Type: Physician [...] kidney doctor who referred him to the [facility]. He had wound dressed at kidney doctor's [...] with foot ulcer 2 (more content not included)...[facility] [id number] History of Present illness Narrative* Mae Campbell, DPM - 04/20/2022 5:01 PM EDT Images from [...] kidney doctor who referred him to the [facility]. He had wound dressed at kidney doctor's [...] skin PLAN AND TREATMENT: ASSESMENT & PLAN Foot and Ankle and Lower extremity Exam [...] of skin 707.15 L97.511 documented in this encounterT[facility]us [facility]10-25-2022 NoteHNO ID: [id number] Author: Natalya Jordan DPM Service: ? Author [...] kidney doctor who referred him to the [facility]. He had wound dressed at kidney doctor's [...] presents in slippers Keep appointment with Dr rEic next week. Discussed he should go more [...] M20.5X1 AND Hammertoe of right foot 735.4 M20.41[facility] [id number] History of Past illness Narrative* Problem Noted [...] Overview: Added automatically from request for surgery [id number] CKD (chronic kidney disease) stage 3, GFR [...] of this encounter (statuses as of 10/27/2022) [facility] of Past illness Narrative* Problem Noted [...] Overview: Added automatically from request for surgery [id number] CKD (chronic kidney disease) stage 3, GFR [...] of this encounter (statuses as of 12/10/2022) [facility] History of Past illness Narrative* Problem Noted [...] Overview: Added automatically from request for surgery [id number] CKD (chronic kidney disease) stage 3, GFR [...] of this encounter (statuses as of 12/14/2022) [facility] History of Past illness Narrative* Problem Noted [...] Overview: Added automatically from request for surgery [id number] CKD (chronic kidney disease) stage 3, GFR [...] of this encounter (statuses as of 12/16/2022) [facility] History of Past illness Narrative* Problem Noted [...] Overview: Added automatically from request for surgery [id number] CKD (chronic kidney disease) stage 3, GFR [...] of this encounter (statuses as of 02/09/2023) [facility] of Past illness Narrative* Problem Noted [...] Overview: Added automatically from request for surgery [id number] CKD (chronic kidney disease) stage 3, GFR [...] of complication, uncontrolled 07/27/2005 08/09/2008 Overview: Alb/Creat in 7-08 A1C 7.9% in 7-08, 11.8% in - Creat 1.4 in - Asthma 07/07/2015 documented as of this encounter (statuses as of 02/10/2023) [facility] of Past illness Narrative* Problem Noted [...] Overview: Added automatically from request for surgery [id number] CKD (chronic kidney disease) stage 3, GFR [...] 7-08, 11.8% in -09 Creat 1.4 in 1-09 Asthma 07/07/2015 documented as of this encounter (statuses as of 03/04/2023) [facility] of Past illness Narrative* Problem Noted [...] Overview: Added automatically from request for surgery [id number] CKD (chronic kidney disease) stage 3, GFR [...] 7-08 A1C 7.9% in -, 11.8% in 07-05 Creat 1.4 in 07-05 Asthma 07/07/2015 documented as of this encounter (statuses as of 04/02/2023) [facility] of Past illness Narrative* Problem Noted [...] Overview: Added automatically from request for surgery [id number] CKD (chronic kidney disease) stage 3, GFR [...] of this encounter (statuses as of 04/13/2023) [facility] of Past illness Narrative* Problem Noted [...] Overview: Added automatically from request for surgery [id number] CKD (chronic kidney disease) stage 3, GFR [...] of this encounter (statuses as of 04/13/2023) [facility] of [facility] illness Narrative* Problem Noted [...] Overview: Added automatically from request for surgery [id number] CKD (chronic kidney disease) stage 3, GFR [...] of this encounter (statuses as of 04/19/2023) [facility] of [facility] illness Narrative* Problem Noted [...] Overview: Added automatically from request for surgery [id number] CKD (chronic kidney disease) stage 3, GFR [...] of this encounter (statuses as of 04/26/2023) [facility] of Past illness Narrative* Problem Noted [...] Overview: Added automatically from request for surgery [id number] CKD (chronic kidney disease) stage 3, GFR [...] 01-01 A1C 7.9% in 01-01, 11.8% in 1-09 Creat 1.4 in 1-09 Asthma 07/07/2015 documented as of this encounter (statuses as of 04/27/2023) [facility] of Past illness Narrative* Problem Noted [...] Overview: Added automatically from request for surgery [id number] CKD (chronic kidney disease) stage 3, GFR [...] of this encounter (statuses as of 05/03/2023) [facility] of [facility] illness Narrative* Problem Noted [...] Overview: Added automatically from request for surgery [id number] CKD (chronic kidney disease) stage 3, GFR [...] of this encounter (statuses as of 06/09/2023) [facility] Narrative* Problem Noted [...] Overview: Added automatically from request for surgery [id number] CKD (chronic kidney disease) stage 3, GFR [...] of this encounter (statuses as of 06/19/2023) [facility] Narrative* Problem Noted [...] Overview: Added automatically from request for surgery [id number] CKD (chronic kidney disease) stage 3, GFR [...] of this encounter (statuses as of 06/20/2023) [facility] illness Narrative* Problem Noted [...] Overview: Added automatically from request for surgery [id number] CKD (chronic kidney disease) stage 3, GFR [...] as of this encounter (statuses as of 08/27/2023) [facility] Narrative* Problem Noted [...] Overview: Added automatically from request for surgery [id number] CKD (chronic kidney disease) stage 3, GFR [...] as of this encounter (statuses as of 09/15/2023) [facility] Narrative* Problem Noted Date Diagnosed Date Resolved Date Right foot ulcer, limited to breakdown of skin 04/20/2022 10/27/2022 Benign paroxysmal positional vertigo 09/28/2021 02/03/2022 Dizziness and giddiness 09/28/2021 08/1 Strain of tendon of right rotator cuff 09/29/2020 02/03/2022 Weakness 09/29/2020 02/03/2022 Punctate keratitis, bilateral 06/22/2019 04/27/2022 Pseudophakia of both eyes 06/22/2019 Primary open angle glaucoma (POAG) of left eye, mild stage 01/09/2019 04/27/2022 Primary open angle glaucoma (POAG) of right eye, severe stage 09/19/2018 04/27/2022 Vitreous hemorrhage 04/19/2018 04/27/20 22 Overview: Added automatically from request for surgery [id number] CKD (chronic kidney disease) stage 3, GFR [...] as of this encounter (statuses as of 10/05/2023) [facility] Narrative* Problem Noted Date Diagnosed Date Resolved Date Right foot ulcer, limited to breakdown of skin 04/20/2022 10/27/2022 Benign paroxysmal positional vertigo 09/28/2021 02/03/2022 Dizziness and giddiness 09/28/2021 08/1 Strain of tendon of right rotator cuff 09/29/2020 02/03/2022 Weakness 09/29/2020 02/03/2022 Punctate keratitis, bilateral 06/22/2019 04/27/2022 Pseudophakia of both eyes 06/22/2019 Primary open angle glaucoma (POAG) of left eye, mild stage 01/09/2019 04/27/2022 Primary open angle glaucoma (POAG) of right eye, severe stage 09/19/2018 04/27/2022 Vitreous hemorrhage 04/19/2018 04/27/20 22 Overview: Added automatically from request for surgery [id number] CKD (chronic kidney disease) stage 3, GFR [...] as of this encounter (statuses as of 10/06/2023) [facility] of Past illness Narrative* Problem Noted [...] Overview: Added automatically from request for surgery [id number] CKD (chronic kidney disease) stage 3, GFR [...] 7-08, 11.8% in -09 Creat 1.4 in 1-09 Asthma 07/07/2015 documented as of this encounter (statuses as of 10/06/2023) [facility] of [facility] illness Narrative* Problem Noted [...] Overview: Added automatically from request for surgery [id number] CKD (chronic kidney disease) stage 3, GFR [...] as of this encounter (statuses as of 10/11/2023) [facility] of Past illness Narrative* Problem Noted [...] Overview: Added automatically from request for surgery [id number] CKD (chronic kidney disease) stage 3, GFR [...] 7-08, 11.8% in -09 Creat 1.4 in 1-09 Asthma 07/07/2015 documented as of this encounter (statuses as of 10/12/2023) [facility] of [facility] illness Narrative* Problem Noted Date Diagnosed Date Resolved Date Right foot ulcer, limited to breakdown of skin 04/20/2022 10/27/2022 Benign paroxysmal positional vertigo 09/28/2021 02/03/2022 Dizziness and giddiness 09/28/2021 08/1 Strain of tendon of right rotator cuff 09/29/2020 02/03/2022 Weakness 09/29/2020 02/03/2022 Punctate keratitis, bilateral 06/22/2019 04/27/2022 Pseudophakia of both eyes 06/22/2019 Primary open angle glaucoma (POAG) of left eye, mild stage 01/09/2019 04/27/2022 Primary open angle glaucoma (POAG) of right eye, severe stage 09/19/2018 04/27/2022 Vitreous hemorrhage 04/19/2018 04/27/20 22 Overview: Added automatically from request for surgery [id number] CKD (chronic kidney disease) stage 3, GFR [...] as of this encounter (statuses as of 10/12/2023) [facility] of Present illness Narrative* Natalya Jordan [...] kidney doctor who referred him to the [facility]. He had wound dressed at kidney doctor's [...] right foot 735.4 M20.41 documented in this [facility] Instructions* Patient Instructions* Ivett Scherer RN - [...] towel to dry the wound area) 4. Swisher wound and krystyna-wound with betadine. 5. Apply Triple antibiotic to wound bed. 6. Apply to the wound base: calcium alginate ag 7. Cover with 4x4 gauze and wrap with 2 conform roll. Secure with tape. 8. Change your dressing: Daily or sooner if wet. Apply Tubi-it audit manager to right leg. Apply in the morning [...] doctor Report any of the following changes [phone] or go to the Emergency Department: Fever [...] for optimal wound healing. [facility]: Visit your access clerk every 10-12 weeks for callous control. Natalya Jordan DPCasey/ROME/SP documented in this encounterT[facility]10[facility] Nurse Note* Ivett Scherer RN - 04/19/2022 4:01 PM EDT Nursing Documentation Pertinent Medical History: long hx of callous, CKD, HTN, DM Wound Etiology according to patient: Callous fell off - wound beneath Patient arrived via: ambulatory with Home Care Company/Nursing Facility: none Consent captured for debridement per Sulma until September 2022 Consent captured for debridement per Mae Ca until September 2022 Anticoagulant Therapy: ASA 81 ACTIVE CARE PER PROVIDER: Mae Campbell DPM WOUND ASSESSMENT: Refer to Provider's [...] with: 2 Conform Other: Single layer of Tubi-it audit manager size D. WOUND # 2 - LOCATION: Right Second Toe - Formed from burst blister DEBRIDEMENT: SubQ Post debridement measurements if applicable: L: 1.0 cm x W: 0.8 cm x D: 0.1 cm Cleansed with: Betadine Applied to krystyna-wound skin: Betadine Applied to wound bed: Silver Alginate Covered and secured with: 2 Conform Other: Single layer of Tubi-it audit manager size D. COMPRESSION: Single layer Tubi-it audit manager size D SPECIAL NEEDS: Coordination of care - [facility] for wound supplies Emotional support N/A OR set-up N/A Dermatology Sales Representative N/A Incontinence needs N/A DISCHARGED in stable condition to: Ambulatory Global surgical period dates if applicable: N/A PLAN/ORDERS: Return to the wound center to see Dr. Jordan/Dr. Campbell in 1 week - sooner if a problem. Continue aggressive nutritional support for optimal wound healing. PRISM: Visit your access clerk every 10-12 weeks for callous control. EDUCATION: [...] intent to comply. OTHER EDUCATION: Educated about tubi-it audit manager and changes to wound care. Education performed [...] Center Ivett Scherer RN/SP documented in this [facility]10[facility]22 Miscellaneous Notes* Telephone Encounter - Haydee Christina APRN.CNP - 04/12/2022 1:29 PM EDT Called pt directly. Ok to take 500mg Vit C twice daily, but would not increase past that. Ok for protein drink- suggest Glucerna d/t diabetes and asked that he limit protein to no more [id number] per day. Jardiance has worked to decrease [...] AM EDT ----- Message from Haydee Christina APRN.RISK AND COMPLIANCE ANALYTICS DIRECTOR sent at 04/11/2022 8:27 AM EDT ----- [...] andavocados. Thanks so much! documented in this encounterTogus [facility] Center10-17-2022 Nurse Note* Catalina Schmid RN - 04/12/2022 11:16 AM EDT [facility]: Leticia has provided service for the patient [...] Supplies Emotional support N/A OR set-up N/A Dermatology Sales Representative N/A Incontinence needs N/A DISCHARGED in stable condition to: home with - ambulatory Global surgical period dates if applicable: N/A PLAN/ORDERS: Return to the wound center to see Dr. Julian ELIAS in 2 weeks - sooner if a problem PVR'S/Venous incompetency/pre-albumin/x-ray if wound is older than 30 days Continue aggressive nutritional support for optimal wound healing [facility]: Catalina will order supplies, please call in 24 hours if you've not heard from [facility] Visit your access clerk every 10-12 weeks for callous control EDUCATION: [...] and The intended procedure Time Out Communication: 1647 Intended patient and procedure match the source [...] to ANY of questions 5-9, [facility] documented in this encounterTogus [facility]10-17-2022 Miscellaneous Notes* Telephone Encounter - Yessica Méndez RN - 04/12/2022 9:07 AM EDT Images from the original note were not included. Marsha Eric You; [facility] Podiatry Pool 3 days ago It looks as though he has already seen the wound center. I would defer to their recommendations until I see the foot physically. Marsha Eric DPM Phone call to patient. Patient confirms that he is going to [facility] and will continue to do so for care of his wound. * Telephone Encounter - Komal Alvarez RN - 04/07/2022 12:44 PM EDT Esvin mckeon. He has an appointment with Dr. Eric on 04/21/2022 for the open area on his toe. Esvin would like to know how to care for the wound until he is seen. Komal Alvarez RN * Telephone Encounter - Ingrid Swain - 04/06/2022 10:29 AM EDT Patient recently had a callus removed, it has since then left an open wound with blood.Please advice and assist. Ingrid TAPIA documented in this encounterTogus [facility] Center10-14-2022 Instructions* Patient Instructions* Catalina Schmid RN - 04/09/2022 8:40 AM EDT WOUND CARE INSTRUCTIONS- Esvin West Sr. Wound location: Right Great Toe 1. Wash your hands with soap and water before and after wound care. 2. Gather all supplies needed. 3. Wash wound with wound wash with dial soap and water. Pat dry. (Using it's own towel to dry the wound area) 4. Swisher wound and krystyna-wound with betadine 5. Apply [...] instruction. Report any of the following changes [phone] or go to the Emergency Department: Fever [...] aggressive nutritional support for optimal wound healing [facility]: - Catalina will order supplies, please call in 24 hours if you've not heard from [facility] Visit your access clerk every 10-12 weeks for callous control Natalya Jordan DPM/johnson/rome documented in this encounterTogus [facility] Center10-13-2022 Instructions* Patient Instructions* Haydee Christina APRN.RISK AND COMPLIANCE ANALYTICS DIRECTOR - 04/08/2022 11:51 AM EDT PLAN: -Please get labs drawn today or within the next week. I will contact you via phone with results. -Keep doing what you are doing -Discussed need for good diabetes, blood pressure and cholesterol control to prevent disease progression -Recommend BP goal of 130/80 or less. Please contact the office if your blood pressure is less [id number]/70 or higher than 160/90 -Follow low salt [...] improve our service to you by calling [phone] You may be receiving a survey regarding your care today. If you do, please take a few minutes to fill it out and send it back. It would be greatly appreciated. documented in this encounterTogus [facility] Center10-13-2022 History of Present illness Narrative* Haydee Christina APRN.KAMILA - 04/08/2022 11:00 AM EDT [facility] DEPARTMENT OF KIDNEY MEDICINE CHIEF COMPLAINT: [...] on toe and sees wound center in [place] tomorrow Feels well today. Still has episodes [...] [employer]. 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 Benign paroxysmal positional vertigo 09/28/2021 Cataract [...] times daily as needed. flash glucose sensor (HeetchYLE DAIJA 14 DAY SENSOR) kit 1 Each every 2 weeks. Diagnoses: ICD10: E11.22, N18.32, Z79.4; E11.42, Z79.4. Sig: Check glucose 4 or more times per day. Patient on multiple insulin doses. Insulin [place], Disposable, (1ST TIER UNIFINE PENTIPS) 31 gauge [...] and 4 PM flash glucose scanning reader (SpreadShout DAIJA 14 DAY READER) Diagnoses: ICD10: E11.22, N18.32, [...] pain or pressure, palpitations, dizziness, lightheadedness. Denies COBIAN. Admits to edema to intermittent lower leg [...] -Hgb 12.0- below goal August 2021 at [facility] imported labs -denies overt losses denies [...] office if your blood pressure is less xius005/70 or higher than 160/90 -Follow low salt [...] and reviewing the chart. documented in this encounterTogus [facility] Center10-12-2022 Miscellaneous Notes* Telephone Encounter - Casey Palacios RN - 04/07/2022 2:11 PM EDT Faxed wound center referral and ov notes to [facility], per Ivett request. Reports patient was just there. documented in this encounterTogus Va Medical Center10-12-2022 History of Present illness Narrative* Henrry Gonzalez [...] daily as needed. flash glucose sensor (FREESTYLE DAIJA 14 DAY SENSOR) kit 1 Each every 2 weeks. Diagnoses: ICD10: E11.22, N18.32, Z79.4; E11.42, Z79.4. Sig: Check glucose 4 or more times per day. Patient on multiple insulin doses. Insulin [place], Disposable, (1ST TIER UNIFINE PENTIPS) 31 gauge [...] and 4 PM flash glucose scanning reader (SpreadShout DAIJA 14 DAY READER) Diagnoses: ICD10: E11.22, N18.32, [...] ALLERGIES Allergen Reactions Cortisone Other: See Comments [place] real hot, as if someone threw boiling [...] points. - CONSULT TO [facility] [place] - he is established with [facility] wound care and will go there. Keep appointment with podiatry in a couple weeks. Henrry Gonzalez MD documented in this encounterTogus Va Medical Center08-30-2022 History of Present illness Narrative* Radha Addison, [...] with long-term current use of insulin (HCC) Saw Dr. Finnegan in September Will continue to follow-up with him yearly 3. Primary open angle glaucoma (POAG) of both eyes, severe stage 4. Glaucomatous optic atrophy of both eyes Continue Cosopt twice daily and latanoprost daily in both eyes Follow-up as scheduled with Dr. Cohn in 1 month Radha Addison, OD February 23, 2022 9:31 AM documented in this encounterTogus [facility] Center08-29-2022 Miscellaneous Notes* Telephone Encounter - Catalina Diego [facility] - 02/22/2022 1:09 PM EDT Patient called back to check on status of call from nurse. Patient is anxious and is asking if he should make appointment or just speak with nurse. Please advise. * Telephone Encounter - Catalina Diego [facility] - 02/22/2022 8:12 AM EDT Patient called stating he has had floaters in his right eye since tue. Called to speak to clinical. Patient states if unable to reach at home number to please call cell. documented in this encounterTogus Va Medical Center08-10-2022 NoteHNO ID: [id number] Author: Padmini Mclean PT Service: ? Author Type: Physical Therapist Type: Progress Notes Filed: 02/03/2022 10:31 AM Note Text: 02/03/2022 [facility] PHYSICAL THERAPY [...] to therapy or scheduled additional follow-up appointments. Padmini Mclean, [facility]08-05-2022 Miscellaneous Notes* Telephone Encounter - Rehana Crain LPN - 01/29/2022 10:45 AM EDT alek--01/14/22 Next ---04/27/22 Last refill--10/26/21 30 with 1 refill Last labs-- 01/01/22 documented in this encounterTogus [facility] Center08-03-2022 Miscellaneous Notes* Telephone Encounter - Roma Hawkins [...] needed. Neyda Bo LPN documented in this encounterTogus Va Medical Center08-02-2022 Miscellaneous Notes* Telephone Encounter - Roz Segovia LPN - 01/26/2022 3:30 PM EDT He 01/14/22 appt was not for diabetes. The last office note 12/23/21 was faxed to Fredo at [phone]. * Telephone Encounter - Neyda Bo LPN - 01/26/2022 9:46 AM EDT Last appt: 01/14/22 - Next scheduled appt: 04/27/22 Pt is calling in to request RX to be faxed to [facility] @ [phone]. Patient has been identified by name and date of : Yes Pending Prescriptions Disp Refills FREESTYLE DAIJA 14 DAY SENSOR KIT 6 Each 3 Si Each every 2 weeks. Diagnoses: ICD10: E11.22, N18.32, Z79.4; E11.42, Z79.4. Sig: Check glucose 4 or more times per day. Patient on multiple insulin doses. CLARKE: No RX INSTRUCTIONS: Patient aware RX will be sent to pharmacy. No need to notify patient. Neyda Bo LPN documented in this encounterTogus [facility] Medical Center07-28-2022 History of Present illness Narrative* Haydee Christina APRN.KAMILA - 01/21/2022 8:03 AM EDT Images from the original note were not included. documented in this encounterTogus Va Medical Center07-27-2022 Miscellaneous Notes* Telephone Encounter - Karina Lopez [...] you. Karina Lopez RN documented in this encounterTogus Va Medical Center07-26-2022 Miscellaneous Notes* Telephone Encounter - Victor Manuel Krishnan DO - 01/19/2022 2:02 PM EDT [...] dosage of this medication documented in this encounterTogus Va Medical Center07-26-2022 Miscellaneous Notes* Telephone Encounter - Tori Damian [...] please advise, thank you documented in this encounterTogus Va Medical Center07-21-2022 History of Present illness Narrative* Jesse Glover MD - 01/14/2022 5:33 PM EDT This note was created using NetScientificriter. Subjective Patient presents with: Flank Pain: right x 2 weeks Esvin West Sr. is a 76 year old male. 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, Severe Stage Primary Open Angle Glaucoma (Poag) of Left Eye, Mild Stage Secondary Renal Hyperparathyroidism ([facility]) Hyperkalemia 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 Diagnoses: ICD10: E11.22, N18.32, Z79.4; E11.42, Z79.4. Sig: Check glucose 4 or more times per day. Patient on multiple insulin doses. flash glucose scanning reader (FREESTYLE DAIJA 14 DAY READER) Diagnoses: ICD10: E11.22, N18.32, [...] three times daily for 10 days. Insulin [place], Disposable, (1ST TIER UNIFINE PENTIPS) 31 gauge [...] control Jesse Glover MD documented in this encounterTogus Va Medical Center07-15-2022 Miscellaneous Notes* Telephone Encounter - Bala Penyn Ma - 01/08/2022 2:02 PM EDT Patient [...] Patient would like them sent the to [facility] in [place]. Please call patient at [phone]. documented in this encounterTogus Va Medical Center07-08-2022 Instructions* Patient Instructions* Chanda Phillips APRN.CNP - [...] 70. 5. Follow up in 6 months Chanda Phillips, MSN, APPLICATIONS PACKAGER, JAVA WEB USER INTERFACE DEVELOPER-C, CDE Endocrinology [facility] Medical Office Building/[address], [address] [place] [address] Fax: documented in this encounterTogus Va Medical Center07-08-2022 History of Present illness Narrative* Chanda Phillips APRN.CNP - 01/01/2022 3:45 PM EDT Reason for Consultation: DM Type 2 Referring Physician: Jesse Glover MD [address] [facility] [address] HISTORY OF PRESENT ILLNESS Mr. West is [...] secondary hyperparathyroidism per nephrology Seeing cardiology in [place]. Denies hx of [place], CVA, stents, CABG/CAD Nephrology recently started SGLT2 History in addition to include: hypertension, hyperlipidemia, retinopathy, peripheral neuropathy and CKD, BPH, ED Current diabetes regimen is as follows: lantus 25 units daily in AM jardiance 10 mg daily --per nephrology humalog 4/6/6 units TID meals.--take 1/2 the dose if BG is less then 120 Previous DM medications: Glimepiride tradjenta--cost Metformin--renal disease humalog 75/25 he is checking his blood glucose 4+ per day with Freestyle Daija he does bring a log book today for review. LDE Blood Sugar Frequency: Freestyle Daija 14 day download (12/19/21 to 01/01/22 ) [...] kidney disease (HCC) Background diabetic retinopathy(362.01) 09/18/2008 [facility] eye. Cataract of left eye Chronic kidney disease, unspecified CKD (chronic kidney disease) stage 3, GFR 30-59 ml/min ([facility]) 05/26/2017 [facility] [place] Depressive disorder, [...] Type 2 DM - Uncontrolled E11.65 Insulin: [id number] Each 5 blood sugar diagnostic (BLOOD GLUCOSE TEST) test strip Test blood sugar(s) 3 times daily. Dx: Type 2 DM - Uncontrolled E11.65 Insulin: Yes 100 Strip 11 dorzolamide-timolol (COSOPT) 22.3-6.8 mg/mL ophthalmic solution Use 1 Drop in both eyes twice daily. Use at 8 AM and 4 PM 10 mL 2 Insulin [place], Disposable, (1ST TIER UNIFINE PENTIPS) 31 gauge x 3/16 Use as directed 4 times a day. Dx: E11.65 400 Each 3 flash glucose sensor (FREESTYLE DAIJA 14 DAY SENSOR) kit 1 Each every 2 weeks. Diagnoses: ICD10: E11.22, N18.32, Z79.4; E11.42, Z79.4. Sig: Check glucose 4 or more times per day. Patient on multiple insulin doses. 6 Each 3 flash glucose scanning reader (FREESTYLE DAIJA 14 DAY READER) Diagnoses: ICD10: E11.22, N18.32, [...] edema, with long-term current use of insulin ([facility]) (primary encounter diagnosis) (E11.42, Z79.4) Type 2 diabetes mellitus with diabetic polyneuropathy, with long-term current use of insulin ([facility]) (E11.22, N18.30, Z79.4) Type 2 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 disease, with long-term current use of insulin, unspecified whether stage 3a or 3b CKD ([facility]) Comment: Glycemic control is overall stable per [...] Hypoglycemia due to type 2 diabetes mellitus ([facility]) Comment/Plan: continue daija; insulin adjusted. (I10) Hypertension goal BP (blood pressure) < 140/90 Comment: BP improved with repeat Plan: Managed per PCP/nephrology (E78.5) Hyperlipidemia, unspecified hyperlipidemia type Comment: taking pravastatin Plan:managed per PCP I spent a total of 25minutes on the date of the service which included preparing to see the patient, [id number] patient care, completing clinical documentation, obtaining and/or reviewing separately obtained history, performing a medically appropriate examination, counseling and educating the patient/family/caregiver, ordering medications, tests, or procedures and communicating results to the patient/family/caregiver. Chanda Phillips, CRISS, APPLICATIONS PACKAGER, JAVA WEB USER INTERFACE DEVELOPER-C, CDE Endocrinology [facility] Medical Office [facility]/[address] [place] [address] Fax: documented in this encounterTogus Va Medical Center07-08-2022 Evaluation note* Diagnosis Type 2 diabetes mellitus [...] diabetes mellitus (HCC) documented in this encounter [facility]06-29-2022 History of Present illness Narrative* America Mcginnis APRN.RISK AND COMPLIANCE ANALYTICS DIRECTOR - 12/23/2021 8:20 AM EDT CC: Patient [...] has resulted in resolution of vertigo. His fishing game warden started him on Jardiance in the hopes [...] kidney disease) stage 3, GFR 30-59 ml/min ([facility]) 05/26/2017 [place] [place] Depressive disorder, not elsewhere classified Erectile dysfunction associated with type 2 diabetes mellitus ([facility]) 07/09/2008 Esophageal reflux Essential hypertension, benign Hyperplasia [...] Unspecified asthma(493.90) Vitreous hemorrhage of left eye ([facility]) PAST SURGICAL HISTORY Procedure Laterality Date AVASTIN [...] at 8 AM and 4 PM Insulin [place], Disposable, (1ST TIER UNIFINE PENTIPS) 31 gauge x 3/16 Use as directed 4 times a day. Dx: E11.65 flash glucose sensor (FREESTYLE DAIJA 14 DAY SENSOR) kit 1 Each every 2 weeks. Diagnoses: ICD10: E11.22, N18.32, Z79.4; E11.42, Z79.4. Sig: Check glucose 4 or more times per day. Patient on multiple insulin doses. flash glucose scanning reader (FREESTYLE DAIJA 14 DAY READER) Diagnoses: ICD10: E11.22, N18.32, [...] symptoms occur. Patient agreeable to treatment plan. Ameirca Mcginnis APRN.CNP documented in this encounterTogus Va Medical Center06-24-2022 Miscellaneous Notes* Telephone Encounter - Yessica Méndez [...] normal Marsha Eric DPM documented in this encounterTogus Va Medical Center06-21-2022 Instructions* Patient Instructions* Marsha Eric - 12/15/2021 [...] (or decreased sensation in your feet) a access clerk should always cut your toenails. Be Careful [...] Go to your health care provider or access clerk to treat these conditions. documented in this encounterTogus Va Medical Center06-21-2022 History of Present illness Narrative* aMrsha Eric - 12/15/2021 8:57 AM EDT Subjective: [...] kidney disease (HCC) Background diabetic retinopathy(362.01) 09/18/2008 [facility]. Cataract of left eye Chronic kidney disease, unspecified CKD (chronic kidney disease) stage 3, GFR 30-59 ml/min ([facility]) 05/26/2017 [place] [facility] [place] OD Depressive disorder, not elsewhere classified Erectile dysfunction associated with type 2 diabetes mellitus ([facility]) 07/09/2008 Esophageal reflux Essential hypertension, benign Hyperplasia [...] Unspecified asthma(493.90) Vitreous hemorrhage of left eye ([facility]) Current Outpatient Medications Medication Sig NIFEdipine ER [...] at 8 AM and 4 PM Insulin [place], Disposable, (1ST TIER UNIFINE PENTIPS) 31 gauge x 3/16 Use as directed 4 times a day. Dx: E11.65 flash glucose sensor (FREESTYLE DAIJA 14 DAY SENSOR) kit 1 Each every 2 weeks. Diagnoses: ICD10: E11.22, N18.32, Z79.4; E11.42, Z79.4. Sig: Check glucose 4 or more times per day. Patient on multiple insulin doses. flash glucose scanning reader (FREESTYLE DAIJA 14 DAY READER) Diagnoses: ICD10: E11.22, N18.32, [...] ALLERGIES Allergen Reactions Cortisone Other: See Comments [place] real hot, as if someone threw boiling [...] Objective: [facility] Constitutional: Pt is a well developed [...] with inserts. He is going to call [employer] to have his shoes adjusted 4. Callus [...] Follow Up, Nail Check documented in this encounterTogus Va Medical Center06-03-2022 Miscellaneous Notes* Telephone Encounter - Penny Durant [...] else he can try? documented in this encounterTogus Va Medical Center05-25-2022 Instructions* Patient Instructions* Damien Anderson PA-C - 11/18/2021 10:12 AM EDT The following instructions are important for you related to your office visit today with the [facility] General Surgeons. INSTRUCTIONS FOLLOWING A POLYP FOUND [...] you should contact our office immediately @ [phone] and ask to be transferred to the General Surgery department. The following instructions are important for you related to your office visit today with the [facility] General Surgeons. INSTRUCTIONS FOR DIVERTICULA I recommend [...] you should contact our office immediately @ [phone] and ask to be transferred to the General Surgery department. documented in this encounterTogus Va Medical Center05-25-2022 History of Present illness Narrative* Damien Anderson PA-C - 11/18/2021 10:06 AM EDT FOLLOW UP VISIT - ENDOSCOPY NAME: Esvin West Ji CLINIC NO.: [id number] DATE OF SERVICE: 11/18/2021 : 1945 REFERRING [...] C (97.3 F), height 180.3 cm (5' 11), weight 88.9 kg (196 lb), SpO2 99 [...] which included preparing to see the patient, [id number] patient care, completing clinical documentation, obtaining and/or reviewing separately obtained history, counseling and educating the patient/family/caregiver, independently interpretin g results (not separately reported) and communicating results to the patient/family/caregiver. Damien Anderson PA-C documented in this encounterTogus Va Medical Center05-16-2022 Miscellaneous Notes* Telephone Encounter - Cristiane Caruso [...] you. Komal Alvarez RN documented in this encounterTogus Va Medical Center05-11-2022 Miscellaneous Notes* Telephone Encounter - Damien Hardy RN - 11/04/2021 9:42 AM EDT Pt called and is notified of providers message and instructions. Pt voices understanding. He said to let provider know that Dr Xiong said his Colonoscopy went fine today. Damien Hardy RN * Telephone Encounter - America cMginnis APRN.KAMILA - 11/04/2021 8:51 AM EDT Please [...] to review recent visit from PT in [place]. He states that there was mention of the visit being sent to provider to review for more imaging? * Telephone Encounter - America Mcginnis APRN.CNP - 10/13/2021 7:35 AM EDT Okay to reschedule in in November or December America Mcginnis APRN.CNP * Telephone Encounter - Madiha Dhaliwal LPN - 10/12/2021 3:22 PM EDT Patient calling he had appt end of August with JAVA WEB USER INTERFACE DEVELOPER. Patient asking why does he need to [...] Monday 10/16. Please advise documented in this encounterTogus Va Medical Center05-11-2022 Nurse Note* Melinda Dent RN - 11/04/2021 8:26 AM EDT Nursing Progress Note Patient Name: Esvin West Sr. Patient Location: Room/bed info not found at bedside talking with pt. VSS This note was completed by: Melinda Dent 0835 report to Anup GRIFFITH. Pt awake, alert, talking and asking questions. VSS documented in this encounterTogus Va Medical Center05-11-2022 History and physical note * Ronal Xiong MD - 11/04/2021 7:30 AM EDT CC: Patient presents with: ED Follow-up: [facility] - dehydration , increased heart rate , vertigo HPI Esvin West Sr. is a 76 year old male who presents today for above. follow-up. Facility: [facility] Date of visit: 09/17/21 Reason for visit: [...] kidney disease (HCC) Background diabetic retinopathy(362.01) 09/18/2008 [facility] eye. Cataract of left eye Chronic kidney disease, unspecified CKD (chronic kidney disease) stage 3, GFR 30-59 ml/min ([facility]) 05/26/2017 [place] [facility] [place] OD Depressive disorder, [...] Unspecified asthma(493.90) Vitreous hemorrhage of left eye ([facility]) PAST SURGICAL HISTORY PAST SURGICAL HISTORY Procedure [...] 2 DM - Uncontrolled . Insulin: Yes dorzolamide-timolol (COSOPT) 22.3-6.8 mg/mL ophthalmic [...] by mouth once daily. For cholesterol. Insulin [place], Disposable, (1ST TIER UNIFINE PENTIPS) 31 gauge x 3/16 Use as directed 4 times a day. Dx: E11.65 flash glucose sensor (FREESTYLE DAIJA 14 DAY SENSOR) kit 1 Each every [...] mouth once daily. flash glucose scanning reader ([employer] ProductsSTYLE DAIJA 14 DAY READER) Diagnoses: ICD10: E11.22, N18.32, [...] No ectopy DATA REVIEWED: Outside chart from [facility] ER reviewed. ASSESSMENT/PLAN: 1. Benign paroxysmal positional [...] Patient agreeable to treatment plan. America Mcginnis APRN.RISK AND COMPLIANCE ANALYTICS DIRECTOR UPDATED HISTORY AND PHYSICAL EXAMINATION SERVICE DATE: [...] 2021 TIME: 7:09 AM documented in this encounterTogus Va Medical Center05-02-2022 Miscellaneous Notes* Telephone Encounter - Pham Scherer [...] - 10/26/2021 11:14 AM EDT Last seen JAVA WEB USER INTERFACE DEVELOPER 09/22/21 Next is 12/22/21 * Telephone Encounter - Marixa Dwyer [facility] - 10/26/2021 9:07 AM EDT Patient has [...] order and 10 day supply to local [facility] Patient aware RX will be sent to pharmacy. No need to notify patient. Patient aware RX escripted to mail away pharmacy. No need to notify patient. Marixa Dwyer Pss documented in this encounterTogus Va Medical Center04-25-2022 Miscellaneous Notes* Telephone Encounter - Tianna Schneider [...] running low. Thank you documented in this encounterTogus Va Medical Center04-21-2022 History of Present illness Narrative* Padmini Mclean, PT - 10/15/2021 1:46 PM EDT Episode Visit Count: 3 Therapist That Will Oversee The Plan Of Care: Christina Mclean Start of Care Date: 09/28/21 Onset Date: [...] was able to inform patient that KAMILA bolden discuss with PCP tomorrow once he is [...] 30 Total Treatment Time Minutes (timed/untimed): 40 Padmini Mclean PT documented in this encounterTogus Va Medical Center04-20-2022 Instructions* Patient Instructions* Victor Manuel Krishnan DO - 10/14/2021 1:12 PM EDT [...] will be greatly appreciated. documented in this encounterTogus Va Medical Center04-20-2022 History of Present illness Narrative* Victor Manuel Krishnan DO - 10/14/2021 1:00 PM EDT [facility] SERVICE DATE: 10/14/2021 SERVICE TIME: 1:20 PM CHIEF COMPLAINT: CKD IIIb HPI: Mr. West is a 76 year old male with a PMHx of diabetes mellitus typi II and hypertension who presents with chronic kidney disease stage IIIb. Used to follow with Dr. Marrero and Madiha Hamm. Last appointment on 10/23/2020 [...] Edema, With Long-Term Current Use of Insulin ([facility]) Punctate Keratitis, Bilateral Pseudophakia of Both Eyes Type 2 Diabetes Mellitus With Diabetic Polyneuropathy, With Long-Term Current Use of Insulin ([facility]) Type 2 Diabetes Mellitus With Stage 3 Chronic Kidney Disease, With Long-Term Current Use of Insulin([facility]) Strain of Tendon of Right Rotator Cuff [...] by mouth once daily. For cholesterol. Insulin [place], Disposable, (1ST TIER UNIFINE PENTIPS) 31 gauge x 3/16 Use as directed 4 times a day. Dx: E11.65 flash glucose sensor (FREESTYLE DAIJA 14 DAY SENSOR) kit 1 Each every 2 weeks. Diagnoses: ICD10: E11.22, N18.32, Z79.4; E11.42, Z79.4. Sig: Check glucose 4 or more times per day. Patient on multiple insulin doses. flash glucose scanning reader (FREESTYLE DAIJA 14 DAY READER) Diagnoses: ICD10: E11.22, N18.32, [...] ALLERGIES Allergen Reactions Cortisone Other: See Comments [place] real hot, as if someone threw boiling water on him Zestril [Lisinopril] Intolerance ARF, hypokalemia REVIEW OF SYSTEMS: Constitutional: No complaints Cardiovascular: No complaints Genitourinary: No complaints PHYSICAL EXAM: BP 147/66 Pulse 80 Resp 12 Ht 179.1 cm (5' 10.5) Wt 90.7 kg (200 lb) BMI 28.29 [...] - Follow up in 6 months SIGNATURE: Victor Manuel Krishnan DO PATIENT NAME: Esvin West Sr. DATE: October 14, 2021 TIME: 1:20 PM OFFICE NUMBER: [id number] CC: PRIMARY CARE PHYSICIAN: Jesse Glover MD * Royce Hammer - 10/14/2021 12:42 PM EDT Patient declined medication review at this time. Pharmacy was asked and correct. Royce Hammer PATIENT FORGOT MEDICATION LIST. documented in this encounterTogus Va Medical Center04-20-2022 Miscellaneous Notes* Telephone Encounter - Bala Penny [...] Otherwise he'd [facility] [place] [facility] [place] * Telephone Encounter - Willa Patel Pss - 10/07/2021 4:44 PM EDT Pharmacy verified in [facility] Patient has been identified by name [...] advise. Willa Patel Pss documented in this encounterTogus Va Medical Center04-19-2022 Miscellaneous Notes* Telephone Encounter - Gladis Sonia Pss - 10/13/2021 10:37 AM EDT Short term pills needed sent to local pharmacy Gladis Sotelohl Pss documented in this encounterTogus Va Medical Center04-12-2022 History of Present illness Narrative* Padmini Mclean, PT - 10/06/2021 2:55 PM EDT Episode Visit Count: 2 Therapist That Will Oversee The Plan Of Care: Christina Mclean Start of Care Date: 09/28/21 Onset Date: [...] goals. PLAN FOR NEXT VISIT: continue with ballance ex, address C-spine restrictions SUBJECTIVE: Patient Reason for [...] stance - right (sec): 5 sec (moderate CRYSTAL CUTTER) Single leg stance - left (sec): 7 sec (light CRYSTAL CUTTER) TREATMENT: Manual Therapy: 1: supine sub occ [...] to fear of instability 7: SLS with CRYSTAL CUTTER 8: extensive patient education on importance of [...] 35 Total Treatment Time Minutes (timed/untimed): 55 Padmini Mclean PT documented in this encounterTogus Va Medical Center04-08-2022 Miscellaneous Notes* Telephone Encounter - Alia Garza Pss - 10/02/2021 1:30 PM EDT Patient has been identified by name and date of : Yes Pending Prescriptions Disp Refills NIFEDIPINE ER 90 MG TABLET,EXTENDED RELEASE 24 HR 90 tablet 3 Sig: Take 1 tablet by mouth once daily. CLARKE: No RX INSTRUCTIONS: Patient aware RX escripted to mail away pharmacy. No need to notify patient. Alia Tapia documented in this encounterTogus Va Medical Center04-04-2022 History of Past illness Narrative* Problem Noted [...] of this encounter (statuses as of 02/23/2022) [facility] of Past illness Narrative* Problem Noted [...] of this encounter (statuses as of 02/25/2022) [facility] of Past illness Narrative* Problem Noted [...] of this encounter (statuses as of 04/07/2022) [facility] of Past illness Narrative* Problem Noted [...] of this encounter (statuses as of 04/07/2022) [facility]04[facility] of Past illness Narrative* Problem Noted [...] of this encounter (statuses as of 04/08/2022) [facility] of Past illness Narrative* Problem Noted [...] of this encounter (statuses as of 04/12/2022) [facility] History of Past illness Narrative* Problem Noted [...] of this encounter (statuses as of 04/12/2022) [facility] History of Past illness Narrative* Problem Noted [...] of this encounter (statuses as of 04/20/2022) [facility] of Past illness Narrative* Problem Noted [...] of this encounter (statuses as of 04/20/2022) [facility] Past illness Narrative* Problem Noted [...] of this encounter (statuses as of 04/21/2022) [facility] of Past illness Narrative* Problem Noted [...] of this encounter (statuses as of 04/22/2022) [facility] Past illness Narrative* Problem Noted [...] of this encounter (statuses as of 04/26/2022) [facility] of Past illness Narrative* Problem Noted [...] of this encounter (statuses as of 04/27/2022) [facility] History of Past illness Narrative* Problem Noted [...] Overview: Added automatically from request for surgery [id number] CKD (chronic kidney disease) stage 3, GFR [...] of this encounter (statuses as of 04/27/2022) [facility] History of Past illness Narrative* Problem Noted [...] Overview: Added automatically from request for surgery [id number] CKD (chronic kidney disease) stage 3, GFR [...] -08 A1C 7.9% in -, 11.8% in 07-05 Creat 1.4 in - Asthma 07/07/2015 documented as of this encounter (statuses as of 04/28/2022) [facility] History of Past illness Narrative* Problem Noted [...] Overview: Added automatically from request for surgery [id number] CKD (chronic kidney disease) stage 3, GFR [...] of this encounter (statuses as of 04/29/2022) [facility] History of Past illness Narrative* Problem Noted [...] Overview: Added automatically from request for surgery [id number] CKD (chronic kidney disease) stage 3, GFR [...] of this encounter (statuses as of 05/05/2022) [facility] History of Past illness Narrative* Problem Noted [...] Overview: Added automatically from request for surgery [id number] CKD (chronic kidney disease) stage 3, GFR [...] of this encounter (statuses as of 05/14/2022) [facility] History of Past illness Narrative* Problem Noted [...] Overview: Added automatically from request for surgery [id number] CKD (chronic kidney disease) stage 3, GFR [...] of this encounter (statuses as of 05/28/2022) [facility] History of Past illness Narrative* Problem Noted [...] Overview: Added automatically from request for surgery [id number] CKD (chronic kidney disease) stage 3, GFR [...] of this encounter (statuses as of 06/01/2022) [place] [address]-04-2022 History of Past illness Narrative* Problem Noted [...] Overview: Added automatically from request for surgery [id number] CKD (chronic kidney disease) stage 3, GFR [...] of this encounter (statuses as of 06/16/2022) [facility] History of Past illness Narrative* Problem Noted [...] Overview: Added automatically from request for surgery [id number] CKD (chronic kidney disease) stage 3, GFR [...] of this encounter (statuses as of 06/30/2022) [facility] History of Past illness Narrative* Problem Noted [...] Overview: Added automatically from request for surgery [id number] CKD (chronic kidney disease) stage 3, GFR [...] 09/18/2008 09/08/2011 Background diabetic retinopathy(362.01) 09/19/19 06/30/2015 Erectile dysfunction associa violet with type 2 diabetes mellitus 07/09/2008 04/27/2022 Polyneuropathy in diabetes 07/27/200504/27 Type II or unspecified type diabetes mellitus without mention of complication, uncontrolled 07/27/2005 08/09/2008 Overview: Alb/Creat 10 in 7-08 A1C 7.9% in 7-08, 11.8% in -09 Creat 1.4 in 1-09 Asthma 07/07/2015 documented as of this encounter (statuses as of 07/01/2022) [facility] History of Past illness Narrative* Problem Noted [...] Overview: Added automatically from request for surgery [id number] CKD (chronic kidney disease) stage 3, GFR [...] of this encounter (statuses as of 07/22/2022) [facility] of Past illness Narrative* Problem Noted [...] Overview: Added automatically from request for surgery [id number] CKD (chronic kidney disease) stage 3, GFR [...] of this encounter (statuses as of 07/23/2022) [facility] History of Past illness Narrative* Problem Noted [...] Overview: Added automatically from request for surgery [id number] CKD (chronic kidney disease) stage 3, GFR [...] of this encounter (statuses as of 08/02/2022) [facility] History of Past illness Narrative* Problem Noted [...] Overview: Added automatically from request for surgery [id number] CKD (chronic kidney disease) stage 3, GFR [...] of this encounter (statuses as of 08/04/2022) [facility] History of Past illness Narrative* Problem Noted [...] Overview: Added automatically from request for surgery [id number] CKD (chronic kidney disease) stage 3, GFR [...] of this encounter (statuses as of 08/23/2022) [facility] History of Past illness Narrative* Problem Noted [...] Overview: Added automatically from request for surgery [id number] CKD (chronic kidney disease) stage 3, GFR [...] of this encounter (statuses as of 08/24/2022) [facility] History of Past illness Narrative* Problem Noted [...] Overview: Added automatically from request for surgery [id number] CKD (chronic kidney disease) stage 3, GFR [...] of this encounter (statuses as of 08/26/2022) [facility] History of Past illness Narrative* Problem Noted [...] Overview: Added automatically from request for surgery [id number] CKD (chronic kidney disease) stage 3, GFR [...] of this encounter (statuses as of 09/14/2022) [facility] History of Past illness Narrative* Problem Noted [...] Overview: Added automatically from request for surgery [id number] CKD (chronic kidney disease) stage 3, GFR [...] Alb/Creat 10 in 01-01 A1C 7.9% in 7-08, 11.8% in 1-09 Creat 1.4 in 1-09 Asthma 07/07/2015 documented as of this encounter (statuses as of 09/21/2022) [facility] History of Past illness Narrative* Problem Noted [...] Overview: Added automatically from request for surgery [id number] CKD (chronic kidney disease) stage 3, GFR [...] of this encounter (statuses as of 10/07/2022) [facility] History of Past illness Narrative* Problem Noted [...] Overview: Added automatically from request for surgery [id number] CKD (chronic kidney disease) stage 3, GFR [...] of this encounter (statuses as of 10/18/2022) [facility]20[facility] Miscellaneous Notes* Telephone Encounter - Roz Segovia LPN - 09/24/2021 2:52 PM EDT PA already completed and pharmacy notified. * Telephone Encounter - Alia Tapia - 09/24/2021 2:07 PM EDT Patient returned [...] cover this. Message left for pt to monchon call to a nurse. PA completed will wait for response. [facility] Miscellaneous Notes* Telephone Encounter - Raquel Sampson [...] lab results? Patient can be reached at [phone]. Thank you [facility] Miscellaneous Notes* Telephone Encounter - Bala Penny [...] optimal. America Mcginnis APRN.CNP [facility] History of Present illness Narrative* America Mcginnis APRN.CNP - 09/22/2021 8:20 AM EDT CC: Patient presents with: ED Follow-up: [facility] - dehydration , increased heart rate , vertigo HPI Esvin West Sr. is a 76 year old male who presents today for above. follow-up. Facility: [facility] Date of visit: 09/17/21 Reason for visit: [...] kidney disease (HCC) Background diabetic retinopathy(362.01) 09/18/2008 [facility] eye. Cataract of left eye Chronic kidney disease, unspecified CKD (chronic kidney disease) stage 3, GFR 30-59 ml/min ([facility]) 05/26/2017 [place] OD Depressive disorder, [...] by mouth once daily. For cholesterol. Insulin [place], Disposable, (1ST TIER [employer]) 31 gauge x 3/16 Use as directed 4 times a day. Dx: E11.65 flash glucose sensor (FREESTYLE DAIJA 14 DAY SENSOR) kit 1 Each every [...] once daily. flash glucose scanning reader (FREESTYLE DAIJA 14 DAY READER) Diagnoses: ICD10: E11.22, N18.32, [...] No ectopy DATA REVIEWED: Outside chart from [facility] ER reviewed. ASSESSMENT/PLAN: 1. Benign paroxysmal positional [...] plan. America Mcginnis APRN.CNP [facility] Miscellaneous Notes* Telephone Encounter - Abraham Giordano - 09/02/2021 9:32 AM EST 11-04-2021 Colon Mckeon [facility] History of Past illness Narrative* Problem Noted [...] of this encounter (statuses as of 09/22/2021) [facility] Narrative* Problem Noted [...] of this encounter (statuses as of 09/23/2021) [facility] Narrative* Problem Noted [...] of this encounter (statuses as of 09/24/2021) [facility] Narrative* Problem Noted [...] of this encounter (statuses as of 10/02/2021) [facility] Narrative* Problem Noted [...] 7- A1C 7.9% in 7-, 11.8% in 07-05 Creat 1.4 in - Asthma 07/07/2015 documented as of this encounter (statuses as of 10/03/2021) [facility] of [facility] illness Narrative* Problem Noted [...] of this encounter (statuses as of 10/06/2021) [facility] Narrative* Problem Noted [...] of this encounter (statuses as of 10/14/2021) [facility] Narrative* Problem Noted [...] of this encounter (statuses as of 10/14/2021) [facility] Narrative* Problem Noted [...] of this encounter (statuses as of 10/15/2021) [facility] Narrative* Problem Noted [...] of this encounter (statuses as of 10/19/2021) [facility] Narrative* Problem Noted [...] of this encounter (statuses as of 10/26/2021) [facility] Narrative* Problem Noted [...] of this encounter (statuses as of 11/04/2021) [facility] Narrative* Problem Noted [...] 7-08, 11.8% in 1- Creat 1.4 in -09 Asthma 07/07/2015 documented as of this encounter (statuses as of 11/04/2021) [facility] Narrative* Problem Noted [...] 7- A1C 7.9% in 7-, 11.8% in 07-05 Creat 1.4 in 07-05 Asthma 07/07/2015 documented as of this encounter (statuses as of 11/05/2021) [facility] Narrative* Problem Noted [...] of this encounter (statuses as of 11/09/2021) [facility] N[facility]ative* Problem Noted [...] of this encounter (statuses as of 11/18/2021) [facility] N[facility]ative* Problem Noted [...] 7-, 11.8% in 07-05 Creat 1.4 in -09 Asthma 07/07/2015 documented as of this encounter (statuses as of 11/27/2021) [facility] Narrative* Problem Noted [...] 7- A1C 7.9% in -, 11.8% in - Creat 1.4 in -09 Asthma 07/07/2015 documented as of this encounter (statuses as of 12/15/2021) [facility] Narrative* Problem Noted [...] of this encounter (statuses as of 12/18/2021) [facility] N[facility]ative* Problem Noted [...] of this encounter (statuses as of 12/23/2021) [facility] Narrative* Problem Noted [...] of this encounter (statuses as of 01/01/2022) [facility]* Problem Noted [...] of this encounter (statuses as of 01/08/2022) [facility] N[facility]* Problem Noted [...] of this encounter (statuses as of 01/14/2022) [facility] N[facility]* Problem Noted [...] of this encounter (statuses as of 01/19/2022) [facility] N[facility]* Problem Noted [...] of this encounter (statuses as of 01/20/2022) [facility] N[facility]ative* Problem Noted [...] 7-, 11.8% in 07-05 Creat 1.4 in 07-05 Asthma 07/07/2015 documented as of this encounter (statuses as of 01/21/2022) [facility] N[facility]ative* Problem Noted [...] of this encounter (statuses as of 01/26/2022) [facility]* Problem Noted [...] of this encounter (statuses as of 01/27/2022) [facility] N[facility]ative* Problem Noted [...] 7-, 11.8% in 07-05 Creat 1.4 in 07-05 Asthma 07/07/2015 documented as of this encounter (statuses as of 01/29/2022) [facility] Diagnosis Benign paroxysmal positional vertigo, unspecified laterality- Primary Hyperkalemia Hyperpotassemia Type 2 diabetes mellitus with diabetic polyneuropathy, with long-term current use of insulin (HCC) Hyperlipidemia, unspecified hyperlipidemia type [facility] Diagnosis Onset Date Resolution Status Wound of left lower extremity acute Wound of right lower extremity acute Type 2 diabetes mellitus chr [facility] Work Phone: Evaluation note* Diagnosis Onset Date Resolution Status Wound of left lower extremity acute Wound of right lower extremity acute Type 2 diabetes mellitus chr onic Wound of left lower extremity acute Wound of right lower extremity acute Type 2 diabetes mellitus [facility] Work Phone: Evaluation note* Diagnosis Type 2 diabetes mellitus with diabetic polyneuropathy, with long-term current use of insulin ([facility]) [facility]* Diagnosis Screening for genitourinary condition Screening for other and unspecified genitourinary condition CKD (chronic kidney disease) stage 3, GFR 30-59 ml/min (HCC) Chronic kidney disease, Stage III (moderate) 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 Other secondary hypertension, unspecified Mixed hyperlipidemia [facility]* Diagnosis Benign paroxysmal positional vertigo, unspecified laterality Dizziness and giddiness [facility] Diagnosis Screening for genitourinary condition Screening [...] of insulin (HCC) [facility]* Diagnosis Type 2 diabetes mellitus with diabetic polyneuropathy, with long-term current use of insulin (HCC)- Primary [facility] Stage 3b chronic kidney disease (HCC)- Primary Anemia of renal disease 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 hyperparathyroidism (of renal origin) Essential hypertension Unspecified essential hypertension Vertigo Dizziness and giddiness [facility] Diagnosis Benign paroxysmal positional vertigo, unspecified laterality Dizziness and giddiness [facility] Diagnosis Screening for genitourinary condition Screening for other and unspecified genitourinary condition CKD (chronic kidney disease) stage 3, GFR 30-59 ml/min (HCC) Chronic kidney disease, Stage III (moderate) 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 Other secondary hypertension, unspecified Mixed hyperlipidemia [facility]* Diagnosis Personal history of colonic polyps- Primary [facility]* Diagnosis Personal history of colonic polyps [facility]* Diagnosis History of colonic polyps- Primary Personal history of colonic polyps Diverticulosis Diverticulosis of colon (without mention of hemorrhage) Tubular adenoma of colon Benign neoplasm of colon [facility] Diagnosis Other diabetic neurological complication associated with type 2 diabetes mellitus (HCC)- Primary Pes planus of both feet Callus of foot Corns and callosities Onychomycosis Dermatophytosis of nail Pain in toe of right foot Pain in limb Pain in toe of left foot Pain in limb Diminished pulses in lower extremity Other symptoms involving cardiovascular system [facility]* Diagnosis Type 2 diabetes mellitus with diabetic polyneuropathy, with long-term current use of insulin (HCC)- Primary Benign paroxysmal positional vertigo, unspecified laterality Stage 3b chronic kidney disease (HCC) Essential hypertension Unspecified essential hypertension [facility]* Diagnosis Screening for genitourinary condition Screening for other and unspecified genitourinary condition CKD (chronic kidney disease) stage 3, GFR 30-59 ml/min (HCC) Chronic kidney disease, Stage III (moderate) 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 Other secondary hypertension, unspecified Mixed hyperlipidemia [facility]* Diagnosis Flank pain, acute- Primary Abdominal pain, unspecified site Essential hypertension Unspecified essential hypertension [facility] Diagnosis Vitreous floaters of both eyes- Primary 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, with long-term current use of insulin (HCC) Primary open angle glaucoma (POAG) of both eyes, 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 [facility] Diagnosis Diabetic ulcer of toe of right foot associated with type 2 diabetes mellitus, limited to breakdown of skin (HCC)- Primary Stage 3b chronic kidney disease (HCC)- Primary Anemia of renal disease Anemia in chronic kidney disease Essential hypertension Unspecified essential hypertension Other proteinuria Hyperlipidemia, unspecified hyperlipidemia type Secondary renal hyperparathyroidism (HCC) Secondary hyperparathyroidism (of renal origin) [facility] Diagnosis Stage 3b chronic kidney disease (HCC)- Primary Type 2 DM with CKD stage 3 and hypertension (HCC) Essential hypertension Unspecified essential hypertension Other proteinuria Anemia of renal disease Anemia in chronic kidney disease Hyperlipidemia, unspecified hyperlipidemia type Secondary renal hyperparathyroidism (HCC) Secondary hyperparathyroidism (of renal origin) [facility] noteNo assessment information availableWLakeHealth [facility] Work Phone: Evaluation note* Diagnosis Right foot ulcer, limited to breakdown of skin (HCC)- Primary [facility] Diagnosis Right foot ulcer, limited to breakdown of skin (HCC)- Primary [facility] Diagnosis Primary open angle glaucoma (POAG) of both eyes, severe stage- Primary 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, with long-term current use of insulin (HCC) [facility] Diagnosis Skin ulcer of right great toe, limited to breakdown of skin (HCC)- Primary Skin ulcer of second toe of right foot, limited to breakdown of skin (HCC) [facility] Diagnosis Skin ulcer of right great toe, limited to breakdown of skin (HCC) Skin ulcer of second toe of right foot, limited to breakdown of skin (HCC) [facility] Diagnosis Controlled type 2 diabetes [...] nephropathy associated with type 2 diabetes mellitus ([facility]) [facility] Diagnosis Type 2 diabetes mellitus with diabetic polyneuropathy, with long-term current use of insulin (HCC)- Primary Essential hypertension Unspecified essential hypertension Stage 3b chronic kidney disease (HCC) Other proteinuria Anemia in stage 3 chronic kidney disease, unspecified whether stage 3a or 3b CKD (HCC) Hyperlipidemia, unspecified hyperlipidemia type [facility] Diagnosis Callus of foot- Primary Corns and callosities Pes planus of both feet Other diabetic neurological complication associated with type 2 diabetes mellitus ([facility]) [facility] Diagnosis Callus of foot- Primary Corns and callosities Pes planus of both feet Other diabetic neurological complication associated with type 2 diabetes mellitus ([facility]) [facility]* Diagnosis Type 2 DM with CKD stage 3 and hypertension (HCC)- Primary Other proteinuria Secondary renal hyperparathyroidism (HCC) Secondary hyperparathyroidism (of renal origin) Anemia of renal disease Anemia in chronic kidney disease Hyperlipidemia, unspecified hyperlipidemia type Stage 3b chronic kidney disease (HCC) CKD (chronic kidney disease) stage 4, GFR 15-29 ml/min ([facility]) Chronic kidney disease, Stage IV (severe) [facility]* Diagnosis Primary open angle glaucoma (POAG) of both eyes, severe stage- Primary 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) Vitreous floaters of both eyes Retinal edema 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, with long-term current use of insulin ([facility]) [facility] Diagnosis Primary open angle glaucoma (POAG) of both eyes, severe stage- Primary [facility]* Diagnosis Type 2 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 disease, with long-term current use of insulin, unspecified whether stage 3a or 3b CKD (HCC) Type 2 diabetes mellitus with diabetic polyneuropathy, with long-term current use of insulin ([facility]) [facility]* Diagnosis Medicare annual wellness visit, subsequent- Primary Routine general medical examination at a [facility] care facility [facility] [facility] Diagnosis Bacterial sinusitis- Primary Unspecified sinusitis (chronic) Acute upper respiratory infection, unspecified [facility] Diagnosis Type 2 diabetes mellitus with diabetic polyneuropathy, with long-term current use of insulin ([facility]) [facility] Diagnosis Screening for genitourinary condition Screening for other and unspecified genitourinary condition CKD (chronic kidney disease) stage 3, GFR 30-59 ml/min (HCC) Chronic kidney disease, Stage III (moderate) Type 2 DM with CKD stage 3 and hypertension ([facility]) Secondary hypertension due to renal disease Other secondary hypertension, unspecified Mixed hyperlipidemia [facility] Diagnosis Type 2 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 disease, with long-term current use of insulin, unspecified whether stage 3a or 3b CKD (HCC) Type 2 diabetes mellitus with diabetic polyneuropathy, with long-term current use of insulin ([facility]) Hypoglycemia due to type 2 diabetes mellitus ([facility]) Hypertension goal BP (blood pressure) < 140/90 Unspecified essential hypertension [facility] Diagnosis 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)- Primary Retinal edema [facility] Diagnosis Type 2 DM with CKD stage 3 and hypertension (HCC)- Primary Other proteinuria Anemia of renal disease Anemia in chronic kidney disease Hyperlipidemia, unspecified hyperlipidemia type [facility] Diagnosis Type 2 diabetes mellitus with diabetic polyneuropathy, with long-term current use of insulin ([facility])- Primary Hyperlipidemia, unspecified hyperlipidemia type Essential hypertension Unspecified essential hypertension Stage 3b chronic kidney disease (HCC) [facility] Diagnosis Vitamin D deficiency- Primary Unspecified vitamin D deficiency Hyperkalemia Hyperpotassemia Type 2 DM with CKD stage 3 and hypertension (HCC) Type 2 diabetes mellitus with diabetic polyneuropathy, with long-term current use of insulin (HCC) CKD (chronic kidney disease) stage 4, 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) Chronic kidney disease, Stage IV (severe) Other proteinuria Anemia of renal disease 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 hyperparathyroidism (of renal origin) [facility] Patient left without being seen- Primary Surgical or other procedure not carried out because of patient's decision [facility] Diagnosis Pes planus of both feet- Primary Other diabetic neurological complication associated with type 2 diabetes mellitus (HCC) Callus of foot Corns and callosities [facility] Diagnosis Callus of foot- Primary Corns and callosities Other diabetic neurological complication associated with type 2 diabetes mellitus (HCC) [facility] Diagnosis Type 2 DM with CKD stage 3 and hypertension (HCC)- Primary Other proteinuria Hyperkalemia Hyperpotassemia Anemia of renal disease 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 hyperparathyroidism (of renal origin) Hyperlipidemia, unspecified hyperlipidemia type Primary hypertension Unspecified essential hypertension [facility] Diagnosis Hyperlipidemia, unspecified hyperlipidemia type- Primary [facility]* Diagnosis Other diabetic neurological complication associated with type 2 diabetes mellitus (HCC)- Primary Callus of foot Corns and callosities [facility]* Diagnosis Type 2 diabetes mellitus with diabetic polyneuropathy, with long-term current use of insulin (HCC) [facility] Diagnosis Other diabetic neurological complication associated with type 2 diabetes mellitus (HCC)- Primary Callus of foot Corns and callosities [facility]* Diagnosis Primary open angle glaucoma (POAG) of both eyes, severe stage- Primary [facility]* Diagnosis 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, with long-term current use of insulin (HCC) Type 2 diabetes mellitus with diabetic polyneuropathy, with long-term current use of insulin (HCC) Type 2 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 disease, with long-term current use of insulin, unspecified whether stage 3a or 3b CKD ([facility]) [facility] Diagnosis Callus of foot- Primary Corns and callosities Other diabetic neurological complication associated with type 2 diabetes mellitus (HCC) Onychomycosis Dermatophytosis of nail Pain in toe [...] of insulin (HCC) [facility] Diagnosis Medicare annual wellness visit, subsequent- Primary Routine general medical examination at a health care facility Type 2 diabetes mellitus with diabetic polyneuropathy, with long-term current use of insulin (HCC) Venous insufficiency Unspecified venous (peripheral) insufficiency CKD (chronic kidney disease) stage 3, GFR 30-59 ml/min (HCC) Chronic kidney disease, Stage III (moderate) Secondary hypertension due to renal disease Other secondary hypertension, unspecified Mixed hyperlipidemia Screening for depression Encounter for screening examination for other mental health and behavioral disorders Stage 3b chronic kidney disease (HCC) [facility] Diagnosis 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, with long-term current use of insulin (HCC) Type 2 diabetes mellitus with diabetic polyneuropathy, with long-term current use of insulin (HCC) Type 2 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 disease, with long-term current use of insulin, unspecified whether stage 3a or 3b CKD (HCC) Hypoglycemia due to type 2 diabetes mellitus (HCC) [facility] Diagnosis Callus of foot- Primary Corns and callosities Other diabetic neurological complication associated with type 2 diabetes mellitus (HCC) Pes planus of both feet [facility] Diagnosis 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)- Primary Other proteinuria Hyperkalemia Hyperpotassemia Anemia of renal disease 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 hyperparathyroidism (of renal origin) Hyperlipidemia, unspecified hyperlipidemia type Type 2 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 disease, with long-term current use of insulin, unspecified whether stage 3a or 3b CKD (HCC) [facility] Diagnosis Type 2 diabetes mellitus with diabetic polyneuropathy, with long-term current use of insulin (HCC) [facility] Diagnosis Callus of foot- Primary Corns and callosities Pes planus of both feet Other diabetic neurological complication associated with type 2 diabetes mellitus (HCC) [facility]* Diagnosis 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) Retinal edema [facility]* Diagnosis CKD (chronic kidney disease) stage 3, GFR 30-59 ml/min (HCC) Chronic kidney disease, Stage III (moderate) Secondary hypertension due to renal disease Other secondary hypertension, unspecified Mixed hyperlipidemia [facility]* Diagnosis Posterior tibial tendon dysfunction- Primary Other disorders of synovium, tendon, and bursa Pes planus of both feet Other diabetic neurological complication associated with type 2 diabetes mellitus (HCC) Callus of foot Corns and callosities [facility]* Diagnosis Posterior tibial tendon dysfunction Other disorders of synovium, tendon, and bursa Pes planus of both feet Other diabetic neurological complication associated with type 2 diabetes mellitus (HCC) Callus of foot Corns and callosities [facility] Diagnosis Posterior tibial tendon dysfunction- Primary Other disorders of synovium, tendon, and bursa Pes planus of both feet Other diabetic neurological complication associated with type 2 diabetes mellitus (HCC) Callus of foot Corns and callosities [facility]* Diagnosis 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, with long-term current use of insulin (HCC)- Primary Type 2 diabetes mellitus with diabetic polyneuropathy, with long-term current use of insulin (HCC) Type 2 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 disease, with long-term current use of insulin, unspecified whether stage 3a or 3b CKD (HCC) Hypoglycemia due to type 2 diabetes mellitus (HCC) Hypertension goal BP (blood pressure) < 140/90 Unspecified essential hypertension Hyperlipidemia, unspecified hyperlipidemia type [facility] Diagnosis Posterior tibial tendon dysfunction- Primary Other disorders of synovium, tendon, and bursa Callus of foot Corns and callosities 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)- Primary Other proteinuria Hyperkalemia Hyperpotassemia Anemia of renal disease 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 hyperparathyroidism (of renal origin) Hyperlipidemia, unspecified hyperlipidemia type [facility]* Diagnosis 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 hypertension ([facility])- Primary Other proteinuria Hyperkalemia Hyperpotassemia Anemia of renal disease 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 hyperparathyroidism (of renal origin) Hyperlipidemia, unspecified hyperlipidemia type [facility]* Diagnosis Hyperkalemia- Primary Hyperpotassemia [facility]* Diagnosis Hyperkalemia- Primary Hyperpotassemia Other proteinuria Essential hypertension Unspecified essential hypertension Type 2 diabetes mellitus with stage 4 chronic kidney disease, with long-term current use of insulin ([facility]) Localized, primary osteoarthritis Primary localized osteoarthrosis, unspecified site [facility]* Diagnosis Other proteinuria Type 2 diabetes mellitus with stage 4 chronic kidney disease, with long-term current use of insulin ([facility]) [facility]* Diagnosis Primary open angle glaucoma (POAG) of both eyes, severe stage- Primary 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) Pseudophakia Lens replaced by other means [facility]* Diagnosis Essential hypertension- Primary Unspecified essential hypertension [facility]* Diagnosis Essential hypertension Unspecified essential hypertension [facility]* Diagnosis Hyperkalemia- Primary Hyperpotassemia Essential hypertension Unspecified essential hypertension [facility] Diagnosis Posterior tibial tendon dysfunction- Primary Other disorders of synovium, tendon, and bursa Callus of foot Corns and callosities Pes planus of both feet Other diabetic neurological complication associated with type 2 diabetes mellitus (HCC) Onychomycosis Dermatophytosis of nail Pain in toe of right foot Pain in limb Pain in toe of left foot Pain in limb Hammer toe of left foot [facility]* Diagnosis Essential hypertension Unspecified essential hypertension CKD (chronic kidney disease) stage 3, GFR 30-59 ml/min (HCC) Chronic kidney disease, Stage III (moderate) Secondary hypertension due to renal disease Other secondary hypertension, unspecified Mixed hyperlipidemia [facility]* Diagnosis Hyperkalemia- Primary Hyperpotassemia [facility] Diagnosis Hyperkalemia- Primary Hyperpotassemia 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) [facility]* Diagnosis Strain of muscle, fascia and tendon of right hip, subsequent encounter- Primary Trochanteric bursitis of right hip Enthesopathy of hip region Unilateral primary osteoarthritis, right hip [facility] Diagnosis Hyperkalemia Hyperpotassemia 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 hypertension ([facility]) [facility] Diagnosis Type 2 diabetes mellitus with stage 4 chronic kidney disease, with long-term current use of insulin ([facility])- Primary Essential hypertension Unspecified essential hypertension Type 2 diabetes mellitus with diabetic polyneuropathy, with long-term current use of insulin ([facility]) Hyperlipidemia, unspecified hyperlipidemia type [facility] Diagnosis 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, with long-term current use of insulin ([facility]) Type 2 diabetes mellitus with diabetic polyneuropathy, with long-term current use of insulin ([facility]) Type 2 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 disease, with long-term current use of insulin, unspecified whether stage 3a or 3b CKD ([facility]) [facility] Diagnosis Strain of muscle, fascia and tendon of right hip, subsequent encounter- Primary Trochanteric bursitis of right hip Enthesopathy of hip region Unilateral primary osteoarthritis, right hip [facility] Diagnosis Posterior tibial tendon dysfunction- Primary Other disorders of synovium, tendon, and bursa Callus of foot Corns and callosities Other diabetic neurological complication associated with type 2 diabetes mellitus ([facility]) [facility] Diagnosis Strain of muscle, fascia and tendon of right hip, subsequent encounter- Primary Trochanteric bursitis of right hip Enthesopathy of hip region Unilateral primary osteoarthritis, right hip [facility] Diagnosis Primary open angle glaucoma (POAG) of both eyes, severe stage- Primary 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 diabetes mellitus ([facility]) Pseudophakia Lens replaced by other means 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, with long-term current use of insulin ([facility]) [facility] Diagnosis Edema of both lower legs- Primary [facility] Diagnosis Benign paroxysmal positional vertigo, unspecified laterality- Primary [facility] Diagnosis Hyperkalemia- Primary Hyperpotassemia Essential hypertension Unspecified essential hypertension [facility] Additional Instructions Call wound center on Tuesday morning for follow-up.[facility] Work Phone: [facility] for referral (narrative)* Outpatient Procedure (Routine) - Closed Specialty Diagnoses / Procedures Referred By Anup obrien Referred To Contact [facility] Diagnoses Personal history of colonic polyps Procedures COLONOSCOPY SCREENING COLONOSCOPY FLX DX W/COLLJ SPEC WHEN Damien Causey PA-C [address] [place] [id number] [facility] Disease [place] [id number] Referral ID Status Reason Start Date Expiration Date V isits Requested Visits Authorized [id number] Closed Auto-Generate d Referral 09/02/2021 09/02/2022 1 1 [facility] for referral (narrative)* Outpatient Procedure (Routine) - Closed Specialty Diagnoses / Procedures Referred By Anup obrien Referred To Contact [facility] Diagnoses Personal history of colonic polyps Procedures COLONOSCOPY SCREENING COLONOSCOPY FLX DX W/COLLJ SPEC WHEN Damien Causey PA-C [address] [place] [address] [facility] Disease [address] [address] Referral ID Status Reason Start Date Expiration Date V isits Requested Visits Authorized [id number] Closed Auto-Generate d Referral 09/02/2021 09/02/2022 1 1 [facility] for referral (narrative)* Outpatient Procedure (Routine) - Authorized Specialty Diagnoses / Procedures Referred By Contac t Referred [facility] Diagnoses Other diabetic neurological complication associated with type 2 diabetes mellitus (HCC) Diminished pulses in lower extremity Procedures PVR ANK PRESS VIV VAS LAB NON-INVAS PHYSIOLOGIC STD EXTREMITY ART 2 LEVEL Marsha Eric [address] [place] [address] [facility] [address] [place] [address] Referral ID Status Reason Start Date Expiration Date Visits Requested Visits Authorized [id number] Authorized Auto-Generat ed Referral 12/15/2021 12/15/2022 1 1 [facility] for referral (narrative)* Diagnostic Procedure Only (Routine) - Closed Specialty Diagnoses / Procedures Referred By Contac t Referred To Contact [facility] Diagnoses Skin ulcer of right great toe, limited to breakdown of skin (HCC) Skin ulcer of second toe of right foot, limited to breakdown of skin (HCC) Procedures XR FOOT GENERAL 3V AP/LAT/OBL RIGHT RADEX FOOT COMPLETE MINIMUM 3 VIEWS Mae Campbell DPM [address] , [address] [place] [id number] [facility] Referral ID Status Reason Start Date Expiration Date V isits Requested Visits Authorized [id number] Closed Auto-Generate d Referral 04/26/2022 05/26/2023 1 1 [facility] for referral (narrative)* Diagnostic Procedure Only (Routine) - Closed Specialty Diagnoses / Procedures Referred By Contac t Referred To Contact [facility] Diagnoses Skin ulcer of right great toe, limited to breakdown of skin (HCC) Skin ulcer of second toe of right foot, limited to breakdown of skin (HCC) Procedures XR FOOT GENERAL 3V AP/LAT/OBL RIGHT RADEX FOOT COMPLETE MINIMUM 3 VIEWS Mae Campbell DPM [address], [address] [place] [address] [facility] Referral ID Status Reason Start Date Expiration Date V isits Requested Visits Authorized [id number] Closed Auto-Generate d Referral 04/26/2022 05/26/2023 1 1 [facility] for referral (narrative)* Medication Prior Authorization - Authorized Specialty Diagnoses / Procedures Referred By Contac t Referred To Contact Jesse Glover MD [address] [place] [address] Phone: tel: fax: Referral ID Status Reason Start Date Expiration Date V isits Requested Visits Authorized [id number] Authorized 07/05/2024 08/04/2025 1 1 [facility] for visit Narrative* Outpatient Procedure (Routine) - Closed Specialty Diagnoses / Procedures Referred By Contac t Referred To Contact [facility] Diagnoses Personal history of colonic polyps Procedures COLONOSCOPY SCREENING COLONOSCOPY FLX DX W/COLLJ SPEC WHEN PFRMD Damien Anderson PA-C [address] [place] [address] [facility] [place] [address] [place] [address] Referral ID Status Reason Start Date Expiration Date V isits Requested Visits Authorized [id number] Closed Auto-Generate d Referral 09/02/2021 09/02/2022 1 1 [facility] for visit Narrative* Diagnostic Procedure Only (Routine) - Closed Specialty Diagnoses / Procedures Referred By Contac t Referred To Contact [facility] IMAG[facility] Diagnoses Skin ulcer of right great toe, limited to breakdown of skin (HCC) Skin ulcer of second toe of right foot, limited to breakdown of skin (HCC) Procedures XR FOOT GENERAL 3V AP/LAT/OBL RIGHT RADEX FOOT COMPLETE MINIMUM 3 VIEWS Mae Campbell, JADA [address], [address] [place] [address] Xr Imaging Referral ID Status Reason Start Date Expiration Date V isits Requested Visits Authorized [id number] Closed Auto-Generate d Referral 04/26/2022 05/26/2023 1 1 [facility] for visit Narrative* Diagnostic Procedure Only (Routine) - Closed Specialty Diagnoses / Procedures Referred By Contac t Referred To Contact [facility] IMAG[facility] Diagnoses Posterior tibial tendon dysfunction Pes planus of both feet Other diabetic neurological complication associated with type 2 diabetes mellitus (HCC) Callus of foot Procedures XR FOOT GENERAL 3V AP/LAT/OBL RIGHT RADEX FOOT COMPLETE MINIMUM 3 VIEWS Testrake, Marsha [address] [place] [address] Phone: tel: fax: [place] [address] Referral ID Status Reason Start Date Expiration Date V isits Requested Visits Authorized [id number] Closed Auto-Generate d Referral 09/25/2024 10/25/2025 1 1 [facility] Summary Purpose Family History No Family History Records Found Relationship Condition Age at Onset Recorded Date/T valerie mother Diabetes mellitus Unknown Endometriosis Unknown Hypertension Unknown Cardiac disease Unknown Kidney disorder Unknown Malignant neoplasm Unknown father [place] [employer] pneumoconiosis Unknown Advance Directives No Advanced Directives Records FoundDocuments on File Type Date Recorded 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 Advance Directive(s) 04/26/2018 9:58 AM Advance Directive(s) 08/04/2016 10:18 AM Advance Directive(s) 07/30/2016 10:37 AM Documents on File Type Date Recorded 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 Advance Directive(s) 04/26/2018 9:58 AM Advance Directive(s) 08/04/2016 10:18 AM Advance Directive(s) 07/30/2016 10:37 AM Advance Directive Response Recorded Date/ Time Name of Medical Power of Bladder Tier JOVI [place] FE August 07, 2021 8:24pm Living Will Yes September 17, 2021 7:45am Power of Bladder Tier Yes September 17 7:45am Documents on File Type Date Recorded 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 Advance Directive(s) 11/04/2021 1:35 PM Advance Directive(s) 04/26/2018 9:58 AM Advance Directive(s) 08/04/2016 10:18 AM Advance Directive(s) 07/30/2016 10:37 AM Documents on File Type Date Recorded 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 Advance Directive(s) 11/04/2021 1:35 PM Advance Directive(s) 04/26/2018 9:58 AM Advance Directive(s) 08/04/2016 10:18 AM Advance Directive(s) 07/30/2016 10:37 AM Advance Directive Response Recorded Date/ Time Name of Medical Power of Bladder Tier JOVI WEST April 17, 2022 5:15pm Living Will Yes April 17 5:15pm Power of Bladder Tier Yes April 17, 2022 5:15pm Advance Directive Response Recorded Date/ Time Living Will Yes April 17 4:15pm Power of Bladder Tier Yes April 17, 2022 4:15pm Reason for Referral Specialty Diagnoses / Procedures Referred By Contac t Referred To Contact [facility] Diagnoses Benign paroxysmal positional vertigo, unspecified laterality Procedures CONSULT TO PHYSICAL THERAPY PHYSICAL THERAPY EVALUATION HIGH 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 [employer] [facility] [address] [place] [address] [facility] [address] [place] [address] Referral ID Status Reason Start Date Expiration Date Visits Requested Visits Authorized [id number] Authorized PCP Requested Referral Auto-Generate d Referral 09/22/2021 09/22/2022 99 99 Specialty Diagnoses / Procedures Referred By Anup obrien Referred To Contact Diagnoses Flank pain, acute Jesse Glover MD [address] [place] [address] Referral ID Status Reason Start Date Expiration Date V isits Requested Visits Authorized [id number] Pending Review 1 1 Chief Complaint and Reason for Visit Chief Complaint DIZZINESS wound wound wound palpitations Reason for Visit Wound of left lower extremity Wound of right lower extremity Type 2 diabetes mellitus Chief Complaint DIZZINESS wound wound wound palpitations wound wound Reason for Visit Wound of left lower extremity Wound of right lower extremity Type 2 diabetes mellitus Wound of left lower extremity Wound of right lower extremity Type 2 diabetes mellitus Chief Complaint SCREENING WOUND CHECK Medications Administered Section Inactive Administered Medications - up to 3 most recent administrations Medication Order MAR Action Action Date Dose Rate Site lactated ringers iv infusion 30 mL/hr, INTRAVENOUS, CONTINUOUS, Starting on Tue11/04/21 at 0630, Until Tue11/04/21 at 0802, Preprocedure Restarted 11/04/2021 7:54 AM EDT Continued by Anesthesia 11/04/2021 7:22 AM EDT 30 mL/hr New Bag/Syringe/Bottle 11/04/2021 7:02 AM EDT 30 mL/hr 3 0 mL/hr Active Administered Medications - up to 3 most recent administrations Medication Order MAR Action Action Date Dose Rate Site fluorescein-benoxinate 0.25-0.4 % 1 Drop (FLURESS) 1 Drop, BOTH EYES, DIRECTED, Starting on Tue02/23/22 at 0900, Until Tue02/23/22 at 2058, Administer for applanation tonometry. In the event of a Fluress shortage, administer Keren-Fluor 1 drop into both eyes as directed [...] on Tue04/21/22 at 0930, Until Tue04/21/22 at 2129, Administer for dilation Given 04/21/2022 9:18 AM [...] a Fluress shortage, administer 1 drop of Kelly-Fluor into both eyes as directed for applanation [...] ized section and content) DATE CREATED AUTHOR 12/19/2017 [facility] DATE CREATED AUTHOR AUTHOR'S ORGANIZ ATION 02/04/2022 [facility] DATE CREATED AUTHOR AUTHOR'S ORGANIZ ATION 06/01/2022 [facility] DATE CREATED AUTHOR AUTHOR'S ORGANIZ ATION 12/02/2024 [facility] DATE CREATED AUTHOR AUTHOR'S ORGANIZ ATION 05/01/2025 [facility] DATE CREATED AUTHOR AUTHOR'S ORGANIZ ATION 05/07/2025 [facility] Source Comments (unrecognize d section and content) In the event this informatio n is protected by the Federal Confidentiality of Alcohol and Drug Abuse Patient Records regulations: The Federal rules restrict any use of the information to criminally investigate or prosecute any alcohol or drug abuse patient.[facility] the event this information is protected by the Federal Confidentiality of Alcohol and Drug Abuse Patient Records regulations: The Federal rules restrict any use of the information to criminally investigate or prosecute any alcohol or drug abuse patient.[facility] CenterIn the event this information is protected by the Federal Confidentiality of Alcohol and Drug Abuse Patient Records regulations: The Federal rules restrict any use of the information to criminally investigate or prosecute any alcohol or drug abuse patient.[facility] CenterIn the event this information is protected by the Federal Confidentiality of Alcohol and Drug Abuse Patient Records regulations: The Federal rules restrict any use of the information to criminally investigate or prosecute any alcohol or drug abuse patient.[facility] CenterIn the event this information is protected by the Federal Confidentiality of Alcohol and Drug Abuse Patient Records regulations: The Federal rules restrict any use of the information to criminally investigate or prosecute any alcohol or drug abuse patient.[facility] CenterIn the event this information is protected by the Federal Confidentiality of Alcohol and Drug Abuse Patient Records regulations: The Federal rules restrict any use of the information to criminally investigate or prosecute any alcohol or drug abuse patient.[facility] CenterIn the event this information is protected by the Federal Confidentiality of Alcohol and Drug Abuse Patient Records regulations: The Federal rules restrict any use of the information to criminally investigate or prosecute any alcohol or drug abuse patient.[facility] CenterIn the event this information is protected by the Federal Confidentiality of Alcohol and Drug Abuse Patient Records regulations: The Federal rules restrict any use of the information to criminally investigate or prosecute any alcohol or drug abuse patient.[facility] CenterIn the event this information is protected by the Federal Confidentiality of Alcohol and Drug Abuse Patient Records regulations: The Federal rules restrict any use of the information to criminally investigate or prosecute any alcohol or drug abuse patient.[facility] CenterIn the event this information is protected by the Federal Confidentiality of Alcohol and Drug Abuse Patient Records regulations: The Federal rules restrict any use of the information to criminally investigate or prosecute any alcohol or drug abuse patient.[facility] CenterIn the event this information is protected by the Federal Confidentiality of Alcohol and Drug Abuse Patient Records regulations: The Federal rules restrict any use of the information to criminally investigate or prosecute any alcohol or drug abuse patient.[facility] CenterIn the event this information is protected by the Federal Confidentiality of Alcohol and Drug Abuse Patient Records regulations: The Federal rules restrict any use of the information to criminally investigate or prosecute any alcohol or drug abuse patient.[facility] CenterIn the event this information is protected by the Federal Confidentiality of Alcohol and Drug Abuse Patient Records regulations: The Federal rules restrict any use of the information to criminally investigate or prosecute any alcohol or drug abuse patient.[facility] CenterIn the event this information is protected by the Federal Confidentiality of Alcohol and Drug Abuse Patient Records regulations: The Federal rules restrict any use of the information to criminally investigate or prosecute any alcohol or drug abuse patient.[facility] CenterIn the event this information is protected by the Federal Confidentiality of Alcohol and Drug Abuse Patient Records regulations: The Federal rules restrict any use of the information to criminally investigate or prosecute any alcohol or drug abuse patient.[facility] CenterIn the event this information is protected by the Federal Confidentiality of Alcohol and Drug Abuse Patient Records regulations: The Federal rules restrict any use of the information to criminally investigate or prosecute any alcohol or drug abuse patient.[facility] CenterIn the event this information is protected by the Federal Confidentiality of Alcohol and Drug Abuse Patient Records regulations: The Federal rules restrict any use of the information to criminally investigate or prosecute any alcohol or drug abuse patient.[facility] CenterIn the event this information is protected by the Federal Confidentiality of Alcohol and Drug Abuse Patient Records regulations: The Federal rules restrict any use of the information to criminally investigate or prosecute any alcohol or drug abuse patient.[facility] CenterIn the event this information is protected by the Federal Confidentiality of Alcohol and Drug Abuse Patient Records regulations: The Federal rules restrict any use of the information to criminally investigate or prosecute any alcohol or drug abuse patient.[facility] CenterIn the event this information is protected by the Federal Confidentiality of Alcohol and Drug Abuse Patient Records regulations: The Federal rules restrict any use of the information to criminally investigate or prosecute any alcohol or drug abuse patient.[facility] CenterIn the event this information is protected by the Federal Confidentiality of Alcohol and Drug Abuse Patient Records regulations: The Federal rules restrict any use of the information to criminally investigate or prosecute any alcohol or drug abuse patient.[facility] CenterIn the event this information is protected by the Federal Confidentiality of Alcohol and Drug Abuse Patient Records regulations: The Federal rules restrict any use of the information to criminally investigate or prosecute any alcohol or drug abuse patient.[facility] CenterIn the event this information is protected by the Federal Confidentiality of Alcohol and Drug Abuse Patient Records regulations: The Federal rules restrict any use of the information to criminally investigate or prosecute any alcohol or drug abuse patient.[facility] CenterIn the event this information is protected by the Federal Confidentiality of Alcohol and Drug Abuse Patient Records regulations: The Federal rules restrict any use of the information to criminally investigate or prosecute any alcohol or drug abuse patient.[facility] CenterIn the event this information is protected by the Federal Confidentiality of Alcohol and Drug Abuse Patient Records regulations: The Federal rules restrict any use of the information to criminally investigate or prosecute any alcohol or drug abuse patient.[facility] CenterIn the event this information is protected by the Federal Confidentiality of Alcohol and Drug Abuse Patient Records regulations: The Federal rules restrict any use of the information to criminally investigate or prosecute any alcohol or drug abuse patient.[facility] CenterIn the event this information is protected by the Federal Confidentiality of Alcohol and Drug Abuse Patient Records regulations: The Federal rules restrict any use of the information to criminally investigate or prosecute any alcohol or drug abuse patient.[facility] CenterIn the event this information is protected by the Federal Confidentiality of Alcohol and Drug Abuse Patient Records regulations: The Federal rules restrict any use of the information to criminally investigate or prosecute any alcohol or drug abuse patient.[facility] CenterIn the event this information is protected by the Federal Confidentiality of Alcohol and Drug Abuse Patient Records regulations: The Federal rules restrict any use of the information to criminally investigate or prosecute any alcohol or drug abuse patient.[facility] CenterIn the event this information is protected by the Federal Confidentiality of Alcohol and Drug Abuse Patient Records regulations: The Federal rules restrict any use of the information to criminally investigate or prosecute any alcohol or drug abuse patient.[facility] CenterIn the event this information is protected by the Federal Confidentiality of Alcohol and Drug Abuse Patient Records regulations: The Federal rules restrict any use of the information to criminally investigate or prosecute any alcohol or drug abuse patient.[facility] CenterIn the event this information is protected by the Federal Confidentiality of Alcohol and Drug Abuse Patient Records regulations: The Federal rules restrict any use of the information to criminally investigate or prosecute any alcohol or drug abuse patient.[facility] CenterIn the event this information is protected by the Federal Confidentiality of Alcohol and Drug Abuse Patient Records regulations: The Federal rules restrict any use of the information to criminally investigate or prosecute any alcohol or drug abuse patient.[facility] CenterIn the event this information is protected by the Federal Confidentiality of Alcohol and Drug Abuse Patient Records regulations: The Federal rules restrict any use of the information to criminally investigate or prosecute any alcohol or drug abuse patient.[facility] CenterIn the event this information is protected by the Federal Confidentiality of Alcohol and Drug Abuse Patient Records regulations: The Federal rules restrict any use of the information to criminally investigate or prosecute any alcohol or drug abuse patient.[facility] CenterIn the event this information is protected by the Federal Confidentiality of Alcohol and Drug Abuse Patient Records regulations: The Federal rules restrict any use of the information to criminally investigate or prosecute any alcohol or drug abuse patient.[facility] CenterIn the event this information is protected by the Federal Confidentiality of Alcohol and Drug Abuse Patient Records regulations: The Federal rules restrict any use of the information to criminally investigate or prosecute any alcohol or drug abuse patient.[facility] CenterIn the event this information is protected by the Federal Confidentiality of Alcohol and Drug Abuse Patient Records regulations: The Federal rules restrict any use of the information to criminally investigate or prosecute any alcohol or drug abuse patient.[facility] CenterIn the event this information is protected by the Federal Confidentiality of Alcohol and Drug Abuse Patient Records regulations: The Federal rules restrict any use of the information to criminally investigate or prosecute any alcohol or drug abuse patient.[facility] CenterIn the event this information is protected by the Federal Confidentiality of Alcohol and Drug Abuse Patient Records regulations: The Federal rules restrict any use of the information to criminally investigate or prosecute any alcohol or drug abuse patient.[facility] CenterIn the event this information is protected by the Federal Confidentiality of Alcohol and Drug Abuse Patient Records regulations: The Federal rules restrict any use of the information to criminally investigate or prosecute any alcohol or drug abuse patient.[facility] CenterIn the event this information is protected by the Federal Confidentiality of Alcohol and Drug Abuse Patient Records regulations: The Federal rules restrict any use of the information to criminally investigate or prosecute any alcohol or drug abuse patient.[facility] CenterIn the event this information is protected by the Federal Confidentiality of Alcohol and Drug Abuse Patient Records regulations: The Federal rules restrict any use of the information to criminally investigate or prosecute any alcohol or drug abuse patient.[facility] CenterIn the event this information is protected by the Federal Confidentiality of Alcohol and Drug Abuse Patient Records regulations: The Federal rules restrict any use of the information to criminally investigate or prosecute any alcohol or drug abuse patient.[facility] CenterIn the event this information is protected by the Federal Confidentiality of Alcohol and Drug Abuse Patient Records regulations: The Federal rules restrict any use of the information to criminally investigate or prosecute any alcohol or drug abuse patient.[facility] CenterIn the event this information is protected by the Federal Confidentiality of Alcohol and Drug Abuse Patient Records regulations: The Federal rules restrict any use of the information to criminally investigate or prosecute any alcohol or drug abuse patient.[facility] CenterIn the event this information is protected by the Federal Confidentiality of Alcohol and Drug Abuse Patient Records regulations: The Federal rules restrict any use of the information to criminally investigate or prosecute any alcohol or drug abuse patient.[facility] CenterIn the event this information is protected by the Federal Confidentiality of Alcohol and Drug Abuse Patient Records regulations: The Federal rules restrict any use of the information to criminally investigate or prosecute any alcohol or drug abuse patient.[facility] CenterIn the event this information is protected by the Federal Confidentiality of Alcohol and Drug Abuse Patient Records regulations: The Federal rules restrict any use of the information to criminally investigate or prosecute any alcohol or drug abuse patient.[facility] CenterIn the event this information is protected by the Federal Confidentiality of Alcohol and Drug Abuse Patient Records regulations: The Federal rules restrict any use of the information to criminally investigate or prosecute any alcohol or drug abuse patient.[facility] CenterIn the event this information is protected by the Federal Confidentiality of Alcohol and Drug Abuse Patient Records regulations: The Federal rules restrict any use of the information to criminally investigate or prosecute any alcohol or drug abuse patient.[facility] CenterIn the event this information is protected by the Federal Confidentiality of Alcohol and Drug Abuse Patient Records regulations: The Federal rules restrict any use of the information to criminally investigate or prosecute any alcohol or drug abuse patient.[facility] CenterIn the event this information is protected by the Federal Confidentiality of Alcohol and Drug Abuse Patient Records regulations: The Federal rules restrict any use of the information to criminally investigate or prosecute any alcohol or drug abuse patient.[facility] CenterIn the event this information is protected by the Federal Confidentiality of Alcohol and Drug Abuse Patient Records regulations: The Federal rules restrict any use of the information to criminally investigate or prosecute any alcohol or drug abuse patient.[facility] CenterIn the event this information is protected by the Federal Confidentiality of Alcohol and Drug Abuse Patient Records regulations: The Federal rules restrict any use of the information to criminally investigate or prosecute any alcohol or drug abuse patient.[facility] CenterIn the event this information is protected by the Federal Confidentiality of Alcohol and Drug Abuse Patient Records regulations: The Federal rules restrict any use of the information to criminally investigate or prosecute any alcohol or drug abuse patient.[facility] CenterIn the event this information is protected by the Federal Confidentiality of Alcohol and Drug Abuse Patient Records regulations: The Federal rules restrict any use of the information to criminally investigate or prosecute any alcohol or drug abuse patient.[facility] CenterIn the event this information is protected by the Federal Confidentiality of Alcohol and Drug Abuse Patient Records regulations: The Federal rules restrict any use of the information to criminally investigate or prosecute any alcohol or drug abuse patient.[facility] CenterIn the event this information is protected by the Federal Confidentiality of Alcohol and Drug Abuse Patient Records regulations: The Federal rules restrict any use of the information to criminally investigate or prosecute any alcohol or drug abuse patient.[facility] CenterIn the event this information is protected by the Federal Confidentiality of Alcohol and Drug Abuse Patient Records regulations: The Federal rules restrict any use of the information to criminally investigate or prosecute any alcohol or drug abuse patient.[facility] CenterIn the event this information is protected by the Federal Confidentiality of Alcohol and Drug Abuse Patient Records regulations: The Federal rules restrict any use of the information to criminally investigate or prosecute any alcohol or drug abuse patient.[facility] CenterIn the event this information is protected by the Federal Confidentiality of Alcohol and Drug Abuse Patient Records regulations: The Federal rules restrict any use of the information to criminally investigate or prosecute any alcohol or drug abuse patient.[facility] CenterIn the event this information is protected by the Federal Confidentiality of Alcohol and Drug Abuse Patient Records regulations: The Federal rules restrict any use of the information to criminally investigate or prosecute any alcohol or drug abuse patient.[facility] CenterIn the event this information is protected by the Federal Confidentiality of Alcohol and Drug Abuse Patient Records regulations: The Federal rules restrict any use of the information to criminally investigate or prosecute any alcohol or drug abuse patient.[facility] CenterIn the event this information is protected by the Federal Confidentiality of Alcohol and Drug Abuse Patient Records regulations: The Federal rules restrict any use of the information to criminally investigate or prosecute any alcohol or drug abuse patient.[facility] CenterIn the event this information is protected by the Federal Confidentiality of Alcohol and Drug Abuse Patient Records regulations: The Federal rules restrict any use of the information to criminally investigate or prosecute any alcohol or drug abuse patient.[facility] CenterIn the event this information is protected by the Federal Confidentiality of Alcohol and Drug Abuse Patient Records regulations: The Federal rules restrict any use of the information to criminally investigate or prosecute any alcohol or drug abuse patient.[facility] CenterIn the event this information is protected by the Federal Confidentiality of Alcohol and Drug Abuse Patient Records regulations: The Federal rules restrict any use of the information to criminally investigate or prosecute any alcohol or drug abuse patient.[facility] CenterIn the event this information is protected by the Federal Confidentiality of Alcohol and Drug Abuse Patient Records regulations: The Federal rules restrict any use of the information to criminally investigate or prosecute any alcohol or drug abuse patient.[facility] CenterIn the event this information is protected by the Federal Confidentiality of Alcohol and Drug Abuse Patient Records regulations: The Federal rules restrict any use of the information to criminally investigate or prosecute any alcohol or drug abuse patient.[facility] CenterIn the event this information is protected by the Federal Confidentiality of Alcohol and Drug Abuse Patient Records regulations: The Federal rules restrict any use of the information to criminally investigate or prosecute any alcohol or drug abuse patient.[facility] CenterIn the event this information is protected by the Federal Confidentiality of Alcohol and Drug Abuse Patient Records regulations: The Federal rules restrict any use of the information to criminally investigate or prosecute any alcohol or drug abuse patient.[facility] CenterIn the event this information is protected by the Federal Confidentiality of Alcohol and Drug Abuse Patient Records regulations: The Federal rules restrict any use of the information to criminally investigate or prosecute any alcohol or drug abuse patient.[facility] CenterIn the event this information is protected by the Federal Confidentiality of Alcohol and Drug Abuse Patient Records regulations: The Federal rules restrict any use of the information to criminally investigate or prosecute any alcohol or drug abuse patient.[facility] CenterIn the event this information is protected by the Federal Confidentiality of Alcohol and Drug Abuse Patient Records regulations: The Federal rules restrict any use of the information to criminally investigate or prosecute any alcohol or drug abuse patient.[facility] CenterIn the event this information is protected by the Federal Confidentiality of Alcohol and Drug Abuse Patient Records regulations: The Federal rules restrict any use of the information to criminally investigate or prosecute any alcohol or drug abuse patient.[facility] CenterIn the event this information is protected by the Federal Confidentiality of Alcohol and Drug Abuse Patient Records regulations: The Federal rules restrict any use of the information to criminally investigate or prosecute any alcohol or drug abuse patient.[facility] CenterIn the event this information is protected by the Federal Confidentiality of Alcohol and Drug Abuse Patient Records regulations: The Federal rules restrict any use of the information to criminally investigate or prosecute any alcohol or drug abuse patient.[facility] CenterIn the event this information is protected by the Federal Confidentiality of Alcohol and Drug Abuse Patient Records regulations: The Federal rules restrict any use of the information to criminally investigate or prosecute any alcohol or drug abuse patient.[facility] CenterIn the event this information is protected by the Federal Confidentiality of Alcohol and Drug Abuse Patient Records regulations: The Federal rules restrict any use of the information to criminally investigate or prosecute any alcohol or drug abuse patient.[facility] CenterIn the event this information is protected by the Federal Confidentiality of Alcohol and Drug Abuse Patient Records regulations: The Federal rules restrict any use of the information to criminally investigate or prosecute any alcohol or drug abuse patient.[facility] CenterIn the event this information is protected by the Federal Confidentiality of Alcohol and Drug Abuse Patient Records regulations: The Federal rules restrict any use of the information to criminally investigate or prosecute any alcohol or drug abuse patient.[facility] CenterIn the event this information is protected by the Federal Confidentiality of Alcohol and Drug Abuse Patient Records regulations: The Federal rules restrict any use of the information to criminally investigate or prosecute any alcohol or drug abuse patient.[facility] CenterIn the event this information is protected by the Federal Confidentiality of Alcohol and Drug Abuse Patient Records regulations: The Federal rules restrict any use of the information to criminally investigate or prosecute any alcohol or drug abuse patient.[facility] CenterIn the event this information is protected by the Federal Confidentiality of Alcohol and Drug Abuse Patient Records regulations: The Federal rules restrict any use of the information to criminally investigate or prosecute any alcohol or drug abuse patient.[facility] CenterIn the event this information is protected by the Federal Confidentiality of Alcohol and Drug Abuse Patient Records regulations: The Federal rules restrict any use of the information to criminally investigate or prosecute any alcohol or drug abuse patient.[facility] CenterIn the event this information is protected by the Federal Confidentiality of Alcohol and Drug Abuse Patient Records regulations: The Federal rules restrict any use of the information to criminally investigate or prosecute any alcohol or drug abuse patient.[facility] CenterIn the event this information is protected by the Federal Confidentiality of Alcohol and Drug Abuse Patient Records regulations: The Federal rules restrict any use of the information to criminally investigate or prosecute any alcohol or drug abuse patient.[facility] CenterIn the event this information is protected by the Federal Confidentiality of Alcohol and Drug Abuse Patient Records regulations: The Federal rules restrict any use of the information to criminally investigate or prosecute any alcohol or drug abuse patient.[facility] CenterIn the event this information is protected by the Federal Confidentiality of Alcohol and Drug Abuse Patient Records regulations: The Federal rules restrict any use of the information to criminally investigate or prosecute any alcohol or drug abuse patient.[facility] CenterIn the event this information is protected by the Federal Confidentiality of Alcohol and Drug Abuse Patient Records regulations: The Federal rules restrict any use of the information to criminally investigate or prosecute any alcohol or drug abuse patient.[facility] CenterIn the event this information is protected by the Federal Confidentiality of Alcohol and Drug Abuse Patient Records regulations: The Federal rules restrict any use of the information to criminally investigate or prosecute any alcohol or drug abuse patient.[facility] CenterIn the event this information is protected by the Federal Confidentiality of Alcohol and Drug Abuse Patient Records regulations: The Federal rules restrict any use of the information to criminally investigate or prosecute any alcohol or drug abuse patient.[facility] CenterIn the event this information is protected by the Federal Confidentiality of Alcohol and Drug Abuse Patient Records regulations: The Federal rules restrict any use of the information to criminally investigate or prosecute any alcohol or drug abuse patient.[facility] CenterIn the event this information is protected by the Federal Confidentiality of Alcohol and Drug Abuse Patient Records regulations: The Federal rules restrict any use of the information to criminally investigate or prosecute any alcohol or drug abuse patient.[facility] CenterIn the event this information is protected by the Federal Confidentiality of Alcohol and Drug Abuse Patient Records regulations: The Federal rules restrict any use of the information to criminally investigate or prosecute any alcohol or drug abuse patient.[facility] CenterIn the event this information is protected by the Federal Confidentiality of Alcohol and Drug Abuse Patient Records regulations: The Federal rules restrict any use of the information to criminally investigate or prosecute any alcohol or drug abuse patient.[facility] CenterIn the event this information is protected by the Federal Confidentiality of Alcohol and Drug Abuse Patient Records regulations: The Federal rules restrict any use of the information to criminally investigate or prosecute any alcohol or drug abuse patient.[facility] CenterIn the event this information is protected by the Federal Confidentiality of Alcohol and Drug Abuse Patient Records regulations: The Federal rules restrict any use of the information to criminally investigate or prosecute any alcohol or drug abuse patient.[facility] CenterIn the event this information is protected by the Federal Confidentiality of Alcohol and Drug Abuse Patient Records regulations: The Federal rules restrict any use of the information to criminally investigate or prosecute any alcohol or drug abuse patient.[facility] CenterIn the event this information is protected by the Federal Confidentiality of Alcohol and Drug Abuse Patient Records regulations: The Federal rules restrict any use of the information to criminally investigate or prosecute any alcohol or drug abuse patient.[facility] CenterIn the event this information is protected by the Federal Confidentiality of Alcohol and Drug Abuse Patient Records regulations: The Federal rules restrict any use of the information to criminally investigate or prosecute any alcohol or drug abuse patient.[facility] CenterIn the event this information is protected by the Federal Confidentiality of Alcohol and Drug Abuse Patient Records regulations: The Federal rules restrict any use of the information to criminally investigate or prosecute any alcohol or drug abuse patient.[facility] CenterIn the event this information is protected by the Federal Confidentiality of Alcohol and Drug Abuse Patient Records regulations: The Federal rules restrict any use of the information to criminally investigate or prosecute any alcohol or drug abuse patient.[facility] CenterIn the event this information is protected by the Federal Confidentiality of Alcohol and Drug Abuse Patient Records regulations: The Federal rules restrict any use of the information to criminally investigate or prosecute any alcohol or drug abuse patient.[facility] CenterIn the event this information is protected by the Federal Confidentiality of Alcohol and Drug Abuse Patient Records regulations: The Federal rules restrict any use of the information to criminally investigate or prosecute any alcohol or drug abuse patient.[facility] CenterIn the event this information is protected by the Federal Confidentiality of Alcohol and Drug Abuse Patient Records regulations: The Federal rules restrict any use of the information to criminally investigate or prosecute any alcohol or drug abuse patient.[facility] CenterIn the event this information is protected by the Federal Confidentiality of Alcohol and Drug Abuse Patient Records regulations: The Federal rules restrict any use of the information to criminally investigate or prosecute any alcohol or drug abuse patient.[facility] CenterIn the event this information is protected by the Federal Confidentiality of Alcohol and Drug Abuse Patient Records regulations: The Federal rules restrict any use of the information to criminally investigate or prosecute any alcohol or drug abuse patient.[facility] CenterIn the event this information is protected by the Federal Confidentiality of Alcohol and Drug Abuse Patient Records regulations: The Federal rules restrict any use of the information to criminally investigate or prosecute any alcohol or drug abuse patient.[facility] CenterIn the event this information is protected by the Federal Confidentiality of Alcohol and Drug Abuse Patient Records regulations: The Federal rules restrict any use of the information to criminally investigate or prosecute any alcohol or drug abuse patient.[facility] CenterIn the event this information is protected by the Federal Confidentiality of Alcohol and Drug Abuse Patient Records regulations: The Federal rules restrict any use of the information to criminally investigate or prosecute any alcohol or drug abuse patient.[facility] CenterIn the event this information is protected by the Federal Confidentiality of Alcohol and Drug Abuse Patient Records regulations: The Federal rules restrict any use of the information to criminally investigate or prosecute any alcohol or drug abuse patient.[facility] CenterIn the event this information is protected by the Federal Confidentiality of Alcohol and Drug Abuse Patient Records regulations: The Federal rules restrict any use of the information to criminally investigate or prosecute any alcohol or drug abuse patient.[facility] CenterIn the event this information is protected by the Federal Confidentiality of Alcohol and Drug Abuse Patient Records regulations: The Federal rules restrict any use of the information to criminally investigate or prosecute any alcohol or drug abuse patient.[facility] CenterIn the event this information is protected by the Federal Confidentiality of Alcohol and Drug Abuse Patient Records regulations: The Federal rules restrict any use of the information to criminally investigate or prosecute any alcohol or drug abuse patient.[facility] CenterIn the event this information is protected by the Federal Confidentiality of Alcohol and Drug Abuse Patient Records regulations: The Federal rules restrict any use of the information to criminally investigate or prosecute any alcohol or drug abuse patient.[facility] CenterIn the event this information is protected by the Federal Confidentiality of Alcohol and Drug Abuse Patient Records regulations: The Federal rules restrict any use of the information to criminally investigate or prosecute any alcohol or drug abuse patient.[facility] CenterIn the event this information is protected by the Federal Confidentiality of Alcohol and Drug Abuse Patient Records regulations: The Federal rules restrict any use of the information to criminally investigate or prosecute any alcohol or drug abuse patient.[facility] CenterIn the event this information is protected by the Federal Confidentiality of Alcohol and Drug Abuse Patient Records regulations: The Federal rules restrict any use of the information to criminally investigate or prosecute any alcohol or drug abuse patient.[facility] CenterIn the event this information is protected by the Federal Confidentiality of Alcohol and Drug Abuse Patient Records regulations: The Federal rules restrict any use of the information to criminally investigate or prosecute any alcohol or drug abuse patient.[facility] CenterIn the event this information is protected by the Federal Confidentiality of Alcohol and Drug Abuse Patient Records regulations: The Federal rules restrict any use of the information to criminally investigate or prosecute any alcohol or drug abuse patient.[facility] CenterIn the event this information is protected by the Federal Confidentiality of Alcohol and Drug Abuse Patient Records regulations: The Federal rules restrict any use of the information to criminally investigate or prosecute any alcohol or drug abuse patient.[facility] CenterIn the event this information is protected by the Federal Confidentiality of Alcohol and Drug Abuse Patient Records regulations: The Federal rules restrict any use of the information to criminally investigate or prosecute any alcohol or drug abuse patient.[facility] CenterIn the event this information is protected by the Federal Confidentiality of Alcohol and Drug Abuse Patient Records regulations: The Federal rules restrict any use of the information to criminally investigate or prosecute any alcohol or drug abuse patient.[facility] CenterIn the event this information is protected by the Federal Confidentiality of Alcohol and Drug Abuse Patient Records regulations: The Federal rules restrict any use of the information to criminally investigate or prosecute any alcohol or drug abuse patient.[facility] CenterIn the event this information is protected by the Federal Confidentiality of Alcohol and Drug Abuse Patient Records regulations: The Federal rules restrict any use of the information to criminally investigate or prosecute any alcohol or drug abuse patient.[facility] CenterIn the event this information is protected by the Federal Confidentiality of Alcohol and Drug Abuse Patient Records regulations: The Federal rules restrict any use of the information to criminally investigate or prosecute any alcohol or drug abuse patient.[facility] CenterIn the event this information is protected by the Federal Confidentiality of Alcohol and Drug Abuse Patient Records regulations: The Federal rules restrict any use of the information to criminally investigate or prosecute any alcohol or drug abuse patient.[facility] CenterIn the event this information is protected by the Federal Confidentiality of Alcohol and Drug Abuse Patient Records regulations: The Federal rules restrict any use of the information to criminally investigate or prosecute any alcohol or drug abuse patient.[facility] CenterIn the event this information is protected by the Federal Confidentiality of Alcohol and Drug Abuse Patient Records regulations: The Federal rules restrict any use of the information to criminally investigate or prosecute any alcohol or drug abuse patient.[facility]In the event this information is protected by the Federal Confidentiality of Alcohol and Drug Abuse Patient Records regulations: The Federal rules restrict any use of the information to criminally investigate or prosecute any alcohol or drug abuse patient.[facility]In the event this information is protected by the Federal Confidentiality of Alcohol and Drug Abuse Patient Records regulations: The Federal rules restrict any use of the information to criminally investigate or prosecute any alcohol or drug abuse patient.[facility] CenterIn the event this information is protected by the Federal Confidentiality of Alcohol and Drug Abuse Patient Records regulations: The Federal rules restrict any use of the information to criminally investigate or prosecute any alcohol or drug abuse patient.[facility] CenterIn the event this information is protected by the Federal Confidentiality of Alcohol and Drug Abuse Patient Records regulations: The Federal rules restrict any use of the information to criminally investigate or prosecute any alcohol or drug abuse patient.[facility] CenterIn the event this information is protected by the Federal Confidentiality of Alcohol and Drug Abuse Patient Records regulations: The Federal rules restrict any use of the information to criminally investigate or prosecute any alcohol or drug abuse patient.[facility] CenterIn the event this information is protected by the Federal Confidentiality of Alcohol and Drug Abuse Patient Records regulations: The Federal rules restrict any use of the information to criminally investigate or prosecute any alcohol or drug abuse patient.[facility] CenterIn the event this information is protected by the Federal Confidentiality of Alcohol and Drug Abuse Patient Records regulations: The Federal rules restrict any use of the information to criminally investigate or prosecute any alcohol or drug abuse patient.[facility] CenterIn the event this information is protected by the Federal Confidentiality of Alcohol and Drug Abuse Patient Records regulations: The Federal rules restrict any use of the information to criminally investigate or prosecute any alcohol or drug abuse patient.[facility] CenterIn the event this information is protected by the Federal Confidentiality of Alcohol and Drug Abuse Patient Records regulations: The Federal rules restrict any use of the information to criminally investigate or prosecute any alcohol or drug abuse patient.[facility] CenterIn the event this information is protected by the Federal Confidentiality of Alcohol and Drug Abuse Patient Records regulations: The Federal rules restrict any use of the information to criminally investigate or prosecute any alcohol or drug abuse patient.[facility]In the event this information is protected by the Federal Confidentiality of Alcohol and Drug Abuse Patient Records regulations: The Federal rules restrict any use of the information to criminally investigate or prosecute any alcohol or drug abuse patient.[facility]In the event this information is protected by the Federal Confidentiality of Alcohol and Drug Abuse Patient Records regulations: The Federal rules restrict any use of the information to criminally investigate or prosecute any alcohol or drug abuse patient.[facility]In the event this information is protected by the Federal Confidentiality of Alcohol and Drug Abuse Patient Records regulations: The Federal rules restrict any use of the information to criminally investigate or prosecute any alcohol or drug abuse patient.[facility]In the event this information is protected by the Federal Confidentiality of Alcohol and Drug Abuse Patient Records regulations: The Federal rules restrict any use of the information to criminally investigate or prosecute any alcohol or drug abuse patient.[facility]In the event this information is protected by the Federal Confidentiality of Alcohol and Drug Abuse Patient Records regulations: The Federal rules restrict any use of the information to criminally investigate or prosecute any alcohol or drug abuse patient.[facility]In the event this information is protected by the Federal Confidentiality of Alcohol and Drug Abuse Patient Records regulations: The Federal rules restrict any use of the information to criminally investigate or prosecute any alcohol or drug abuse patient.[facility]In the event this information is protected by the Federal Confidentiality of Alcohol and Drug Abuse Patient Records regulations: The Federal rules restrict any use of the information to criminally investigate or prosecute any alcohol or drug abuse patient.[facility]In the event this information is protected by the Federal Confidentiality of Alcohol and Drug Abuse Patient Records regulations: The Federal rules restrict any use of the information to criminally investigate or prosecute any alcohol or drug abuse patient.[facility]In the event this information is protected by the Federal Confidentiality of Alcohol and Drug Abuse Patient Records regulations: The Federal rules restrict any use of the information to criminally investigate or prosecute any alcohol or drug abuse patient.[facility]In the event this information is protected by the Federal Confidentiality of Alcohol and Drug Abuse Patient Records regulations: The Federal rules restrict any use of the information to criminally investigate or prosecute any alcohol or drug abuse patient.[facility]In the event this information is protected by the Federal Confidentiality of Alcohol and Drug Abuse Patient Records regulations: The Federal rules restrict any use of the information to criminally investigate or prosecute any alcohol or drug abuse patient.[facility] CenterIn the event this information is protected by the Federal Confidentiality of Alcohol and Drug Abuse Patient Records regulations: The Federal rules restrict any use of the information to criminally investigate or prosecute any alcohol or drug abuse patient.[facility]In the event this information is protected by the Federal Confidentiality of Alcohol and Drug Abuse Patient Records regulations: The Federal rules restrict any use of the information to criminally investigate or prosecute any alcohol or drug abuse patient.[facility]In the event this information is protected by the Federal Confidentiality of Alcohol and Drug Abuse Patient Records regulations: The Federal rules restrict any use of the information to criminally investigate or prosecute any alcohol or drug abuse patient.[facility] CenterIn the event this information is protected by the Federal Confidentiality of Alcohol and Drug Abuse Patient Records regulations: The Federal rules restrict any use of the information to criminally investigate or prosecute any alcohol or drug abuse patient.[facility] CenterIn the event this information is protected by the Federal Confidentiality of Alcohol and Drug Abuse Patient Records regulations: The Federal rules restrict any use of the information to criminally investigate or prosecute any alcohol or drug abuse patient.[facility] CenterIn the event this information is protected by the Federal Confidentiality of Alcohol and Drug Abuse Patient Records regulations: The Federal rules restrict any use of the information to criminally investigate or prosecute any alcohol or drug abuse patient.[facility] CenterIn the event this information is protected by the Federal Confidentiality of Alcohol and Drug Abuse Patient Records regulations: The Federal rules restrict any use of the information to criminally investigate or prosecute any alcohol or drug abuse patient.[facility] CenterIn the event this information is protected by the Federal Confidentiality of Alcohol and Drug Abuse Patient Records regulations: The Federal rules restrict any use of the information to criminally investigate or prosecute any alcohol or drug abuse patient.[facility] CenterIn the event this information is protected by the Federal Confidentiality of Alcohol and Drug Abuse Patient Records regulations: The Federal rules restrict any use of the information to criminally investigate or prosecute any alcohol or drug abuse patient.[facility] CenterIn the event this information is protected by the Federal Confidentiality of Alcohol and Drug Abuse Patient Records regulations: The Federal rules restrict any use of the information to criminally investigate or prosecute any alcohol or drug abuse patient.[facility] CenterIn the event this information is protected by the Federal Confidentiality of Alcohol and Drug Abuse Patient Records regulations: The Federal rules restrict any use of the information to criminally investigate or prosecute any alcohol or drug abuse patient.[facility] CenterIn the event this information is protected by the Federal Confidentiality of Alcohol and Drug Abuse Patient Records regulations: The Federal rules restrict any use of the information to criminally investigate or prosecute any alcohol or drug abuse patient.[facility] CenterIn the event this information is protected by the Federal Confidentiality of Alcohol and Drug Abuse Patient Records regulations: The Federal rules restrict any use of the information to criminally investigate or prosecute any alcohol or drug abuse patient.[facility] CenterIn the event this information is protected by the Federal Confidentiality of Alcohol and Drug Abuse Patient Records regulations: The Federal rules restrict any use of the information to criminally investigate or prosecute any alcohol or drug abuse patient.[facility] CenterIn the event this information is protected by the Federal Confidentiality of Alcohol and Drug Abuse Patient Records regulations: The Federal rules restrict any use of the information to criminally investigate or prosecute any alcohol or drug abuse patient.[facility] CenterIn the event this information is protected by the Federal Confidentiality of Alcohol and Drug Abuse Patient Records regulations: The Federal rules restrict any use of the information to criminally investigate or prosecute any alcohol or drug abuse patient.[facility] CenterIn the event this information is protected by the Federal Confidentiality of Alcohol and Drug Abuse Patient Records regulations: The Federal rules restrict any use of the information to criminally investigate or prosecute any alcohol or drug abuse patient.[facility] CenterIn the event this information is protected by the Federal Confidentiality of Alcohol and Drug Abuse Patient Records regulations: The Federal rules restrict any use of the information to criminally investigate or prosecute any alcohol or drug abuse patient.[facility] CenterIn the event this information is protected by the Federal Confidentiality of Alcohol and Drug Abuse Patient Records regulations: The Federal rules restrict any use of the information to criminally investigate or prosecute any alcohol or drug abuse patient.[facility] CenterIn the event this information is protected by the Federal Confidentiality of Alcohol and Drug Abuse Patient Records regulations: The Federal rules restrict any use of the information to criminally investigate or prosecute any alcohol or drug abuse patient.[facility] CenterIn the event this information is protected by the Federal Confidentiality of Alcohol and Drug Abuse Patient Records regulations: The Federal rules restrict any use of the information to criminally investigate or prosecute any alcohol or drug abuse patient.[facility] Reason for Visit (unrecogniz ed section and content) Reason Comments PT Discharge Specialty Diagnoses / Procedures Referred By Contac t Referred To Contact Physical Therapy / PHYSICAL THERAPY Diagnoses R hip pain Procedures PHYSICAL THERAPY EVALUATION HIGH COMPLEX 45 MINS THERAPEUTIC EXERCISES RE, EA 15 MIN. NEW RS PT ORTH K Gera Glez, RODERICK [address] [place] [address] Phone: tel: fax: Inocencio Reynolds PT Referral ID Status Reason Start Date Expiration Date V isits Requested Visits Authorized [id number] Authorized 06/27/2024 06/26/2025 99 99 Reason Comments Physical Therapy Reason Comments PT Re-eval Reason Comments Follow Up Reason Comments ED Follow-up [facility] - dehydration , increased heart rate , vertigo Reason Comments Results Reason Comments Insurance Authorization Reason Onset Date Comments Refill Request 10/02/2021 Specialty Diagnoses / Procedures Referred By Contac t Referred To Contact [facility] Diagnoses Benign paroxysmal positional vertigo, unspecified laterality Procedures CONSULT TO PHYSICAL THERAPY PHYSICAL THERAPY EVALUATION HIGH COMPLEX 45 MINS 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, [place], 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 [address] [id number] [facility] [place] [place] [address] Referral ID Status Reason Start Date Expiration Date Visits Requested Visits Authorized [id number] Authorized PCP Requested Referral Auto-Generate d Referral 09/22/2021 09/22/2022 99 99 Reason Comments Prescription Refills Reason Onset Date Comments Refill Request 10/07/2021 Refill Request 10/14/2021 Reason Comments Consult 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 Reason Onset Date Comments Refill Request 10/26/2021 Reason Comments 11-04-2021 Colon Mckeon Reason Comments Patient Question Reason Comments Procedure [...] 07/16/2022 Reason Comments Blood Sugar Reading Freestyle Daija 2 re port Reason Onset Date Comments [...] Date Comments Refill Request 12/10/2022 Reason Comments [facility] ([facility]) Form Freest yle Daija System and Supplies Reason Comments Established Patient Follow Up Pain Reason Comments [facility] REQUEST FOR MOST REC ENT OFFICE NOTE Reason Comments Primary Open Angle Glaucoma Follow Up Reason Comments Visual Field Testing Reason Onset Date Comments Refill Request 04/26/2023 Reason Comments Medicare Wellness Exam Reason Comments Sore Throat ST, runny nose and f ever x 4 days Reason Onset Date Comments Refill Request 08/25/2023 Reason Onset Date Comments Refill Request 09/15/2023 Reason Comments Established Patient CKD Reason Comments Need for updated information for Daija s ensor continuation Reason Comments Established Patient Follow Up Diabetic Foot Care Patient Left Without Being Seen Reason Onset Date Comments Refill Request 11/23/2023 Reason Comments Established Patient Diabetic Foot Care Reason Comments Established Patient Diabetic Foot Care Numbness Reason Comments 4 month follow-up Reason Onset Date Comments Refill Request 12/19/2023 Reason Comments faxed document CMN- Freestyle Daija Sensor Reason Onset Date Comments Refill Request 03/09/2024 Reason Comments Refill Request Change of pharmacy d ue to cost Reason Onset Date Comments Results 03/19/2024 Reason Comments Established Patient Follow Up Callous Diabetic Foot Care Reason Onset Date Comments Refill Request 03/27/2024 Reason Comments Established Patient Follow Up Diabetic Foot Care Callous Reason Comments Glaucoma Evaluation PATIENT DECLINES DIL ATION AND GLAUCOMA TESTING Reason Comments CGM Download Freestyle Daija Reason Comments Blood Sugar Reading Daija 2 Reason Onset Date Comments Refill Request 06/05/2024 Reason Comments Medicare Wellness Exam Recheck 4 month follow up Reason Comments Forms Reason Onset Date Comments Refill Request 06/14/2024 Medication Problem 06/14/2024 Freestyle Barndi re 2 Sent to pharmacy in error. 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 Reason Onset Date Comments Refill Request 09/20/2024 Reason Comments Established Patient Follow Up Diabetic Foot Care Callous Reason Onset Date Comments Refill Request 10/15/2024 Reason Comments Follow Up Established Patient Insulin Dependent Diabetes Mellitus Reason Comments Established Patient Follow Up Callous Reason Comments ER F/U Reason Onset Date Comments Refill Request 11/28/2024 Reason Comments Glaucoma Follow Up Reason Onset Date Comments Refill Request 12/26/2024 Short term only Reason Comments PT Eval Reason Onset Date Comments Refill Request 01/08/2025 Reason Comments Glaucoma Follow Up 24-2 HVF and NFL OCT Reason Onset Date Comments Refill Request 02/13/2025 Reason Comments bilateral feet swelling Reason Comments Foot Swelling X 1 week Reason Comments Orders Reason Comments Results, Lab Care Teams (unrecognized sec tion and content) Injection Press Operator Relationship Specialty Start Date End Date Jesse Glover MD [address] [place] [address] PCP - General 08/05/08 Fabian Espana MD [address] [place] [address] Orthopedics 09/29/20 Injection Press Operator Relationship Specialty Start Date End Date Jesse Glover MD [address] [place] [address] PCP - General 08/05/08 Fabian Espana MD [address] [address] [place] [address] Orthopedics 09/29/20 Injection Press Operator Relationship Specialty Start Date End Date Jesse Glover MD [address] [place] [address] PCP - General 08/05/08 Fabian Espana MD [address] [place] [address] Orthopedics 09/29/20 Injection Press Operator Relationship Specialty Start Date End Date Jesse Glover MD [address] [facility] [place] [address] PCP - General 08/05/08 Fabian Espana MD [address] [place] [address] Orthopedics 09/29/20 Injection Press Operator Relationship Specialty Start Date End Date Jesse Glover MD [address] [facility] [place] [address] PCP - General 08/05/08 Fabian Espana MD [address] [place] [address] Orthopedics 09/29/20 Injection Press Operator Relationship Specialty Start Date End Date Jesse Glover MD [address] [facility] [place] [address] PCP - General 08/05/08 Fabian Espana MD [address] [place] [address] Orthopedics 09/29/20 Injection Press Operator Relationship Specialty Start Date End Date Jesse Glover MD [address] [facility] [place] [address] PCP - General 08/05/08 Fabian Espana MD [address] [place] [address] Orthopedics 09/29/20 Injection Press Operator Relationship Specialty Start Date End Date Jesse Glover MD [address] [facility] [place] [address] PCP - General 08/05/08 Fabian Espana MD [address] [place] [address] Orthopedics 09/29/20 Injection Press Operator Relationship Specialty Start Date End Date Jesse Glover MD [address] [facility] [place] [address] PCP - General 08/05/08 Fabian Espana MD [address] [place] [address] Orthopedics 09/29/20 Injection Press Operator Relationship Specialty Start Date End Date Jesse Glover MD [address] [facility] [place] [address] PCP - General 08/05/08 Fabian Espana MD [address] [place] [address] Orthopedics 09/29/20 Injection Press Operator Relationship Specialty Start Date End Date Jesse Glover MD [address] [facility] [place] [address] PCP - General 08/05/08 Fabian Espana MD [address] [place] [address] Orthopedics 09/29/20 Injection Press Operator Relationship Specialty Start Date End Date Jesse Glover MD [address] [facility] [place] [address] PCP - General 08/05/08 Fabian Espana MD [address] [place] [address] Orthopedics 09/29/20 Injection Press Operator Relationship Specialty Start Date End Date Jesse Glover MD [address] [facility] [place] [address] PCP - General 08/05/08 Fabian Espana MD [address] [place] [address] Orthopedics 09/29/20 Injection Press Operator Relationship Specialty Start Date End Date Jesse Glover MD [address] [facility] [place] [address] PCP - General 08/05/08 Fabian Espana MD [address] [place] [address] Orthopedics 09/29/20 Injection Press Operator Relationship Specialty Start Date End Date Jesse Glover MD [address] [facility] [place] [address] PCP - General 08/05/08 Fabian Espana MD [address] [place] [address] Orthopedics 09/29/20 Injection Press Operator Relationship Specialty Start Date End Date Jesse Glover MD [address] [facility] [place] [address] PCP - General 08/05/08 Fabian Espana MD [address] [place] [address] Orthopedics 09/29/20 Injection Press Operator Relationship Specialty Start Date End Date Jesse Glover MD [address] [facility] [place] [address] PCP - General 08/05/08 Fabian Espana MD [address] [place] [address] Orthopedics 09/29/20 Injection Press Operator Relationship Specialty Start Date End Date Jesse Glover MD [address] [facility] [place] [address] PCP - General 08/05/08 Fabian Espana MD [address] [place] [address] Orthopedics 09/29/20 Injection Press Operator Relationship Specialty Start Date End Date Jesse Glover MD [address] [facility] [place] [address] PCP - General 08/05/08 Fabian Espana MD [address] [place] [address] Orthopedics 09/29/20 Injection Press Operator Relationship Specialty Start Date End Date Jesse Glover MD [address] [facility] [place] [address] PCP - General 08/05/08 Fabian Espana MD [address] [place] [address] Orthopedics 09/29/20 Injection Press Operator Relationship Specialty Start Date End Date Jesse Glover MD [address] [facility] [place] [address] PCP - General 08/05/08 Fabian Espana MD [address] [place] [address] Orthopedics 09/29/20 Injection Press Operator Relationship Specialty Start Date End Date Jesse Glover MD [address] [facility] [place] [address] PCP - General 08/05/08 Fabian Espana MD [address] [place] [address] Orthopedics 09/29/20 Injection Press Operator Relationship Specialty Start Date End Date Jesse Glover MD [address] [facility] [place] [address] PCP - General 08/05/08 Fabian Espana MD [address] [place] [address] Orthopedics 09/29/20 Injection Press Operator Relationship Specialty Start Date End Date Jesse Glover MD [address] [facility] [place] [address] PCP - General 08/05/08 Fabian Espana MD [address] [place] [address] Orthopedics 09/29/20 Injection Press Operator Relationship Specialty Start Date End Date Jesse Glover MD [address] [facility] [place] [address] PCP - General 08/05/08 Fabian Espana MD [address] [place] [address] Orthopedics 09/29/20 Injection Press Operator Relationship Specialty Start Date End Date Jesse Glover MD [address] [facility] [place] [address] PCP - General 08/05/08 Fabian Espana MD [address] [place] [address] Orthopedics 09/29/20 Injection Press Operator Relationship Specialty Start Date End Date Jesse Glover MD [address] [facility] [place] [address] PCP - General 08/05/08 Fabian Espana MD [address] [place] [address] Orthopedics 09/29/20 Injection Press Operator Relationship Specialty Start Date End Date Jesse Glover MD [address] [facility] [place] [address] PCP - General 08/05/08 Fabian Espana MD [address] [place] [address] Orthopedics 09/29/20 Injection Press Operator Relationship Specialty Start Date End Date Jesse Glover MD [address] [facility] [place] [address] PCP - General 08/05/08 Fabian Espana MD [address] [place] [address] Orthopedics 09/29/20 Injection Press Operator Relationship Specialty Start Date End Date Jesse Glover MD [address] [facility] [place] [address] PCP - General 08/05/08 Fabian Espana MD [address] [place] [address] Orthopedics 09/29/20 Injection Press Operator Relationship Specialty Start Date End Date Jesse Glover MD [address] [facility] [place] [address] PCP - General 08/05/08 Fabian Espana MD [address] [place] [address] Orthopedics 09/29/20 Injection Press Operator Relationship Specialty Start Date End Date Jesse Glover MD [address] [facility] [place] [address] PCP - General 08/05/08 Fabian Espana MD [address] [place] [address] Orthopedics 09/29/20 Injection Press Operator Relationship Specialty Start Date End Date Jesse Glover MD [address] [facility] [place] [address] PCP - General 08/05/08 Fabian Espana MD [address] [place] [address] Orthopedics 09/29/20 Injection Press Operator Relationship Specialty Start Date End Date Jesse Glover MD [address] [facility] [place] [address] PCP - General 08/05/08 Fabian Espana MD [address] [place] [address] Orthopedics 09/29/20 Injection Press Operator Relationship Specialty Start Date End Date Jesse Glover MD [address] [facility] [place] [address] PCP - General 08/05/08 Fabian Espana MD [address] [place] [address] Orthopedics 09/29/20 Injection Press Operator Relationship Specialty Start Date End Date Jesse Glover MD [address] [place] [address] PCP - General 08/05/08 Fabian Espana MD [address] [place] [address] Orthopedics 09/29/20 Injection Press Operator Relationship Specialty Start Date End Date Jesse Glover MD [address] [place] [address] PCP - General 08/05/08 Fabian Espana MD [address] [place] [address] Orthopedics 09/29/20 Injection Press Operator Relationship Specialty Start Date End Date Jesse Glover MD [address] [place] [address] PCP - General 08/05/08 Fabian Espana MD [address] [address] Orthopedics 09/29/20 Injection Press Operator Relationship Specialty Start Date End Date Jesse Glover MD [address] [place] [address] PCP - General 08/05/08 Fabian Espana MD [address] [address] Orthopedics 09/29/20 Injection Press Operator Relationship Specialty Start Date End Date Jesse Glover MD [address] [place] [address] PCP - General 08/05/08 Fabian Espana MD [address] [place] [address] Orthopedics 09/29/20 Injection Press Operator Relationship Specialty Start Date End Date Jesse Glover MD [address] [place] [address] PCP - General 08/05/08 Fabian Espana MD [address] [place] [address] Orthopedics 09/29/20 Injection Press Operator Relationship Specialty Start Date End Date Jesse Glover MD [address] [place] [address] PCP - General 08/05/08 Fabian Espana MD [address] [place] [address] Orthopedics 09/29/20 Team Status: Active Member Role Status Dates Dr. Jesse Glover MD Family Provider Active Dr. Jesse Glover MD Primary Care Provider Active Team Status: Inactive Member Role Status Dates Dr. Jesse Glover MD Primary Care Provider Active Beatriz Kelley Attending Provider, Referring Provide r Active Team Status: Inactive Member Role Status Dates Dr. Jesse Glover MD Primary Care Provider Active Dr. Marcellus Lucia MD Attending Provider, Referr ing Provider Active Injection Press Operator Relationship Specialty Start Date End Date Jesse Glover MD [address] [place], [place] [address]28411 PCP - General 08/05/08 Fabian Espana MD [address] [place] [address] Orthopedics 09/29/20 Injection Press Operator Relationship Specialty Start Date End Date Jesse Glover MD [address] [place], [place] 708831 PCP - General 08/05/08 Fabian Espana MD [address] [place] [address] Orthopedics 09/29/20 Injection Press Operator Relationship Specialty Start Date End Date Jesse Glover MD [address] [place] [address] PCP - General 08/05/08 Fabian Espana MD [address] [place] [address] Orthopedics 09/29/20 Injection Press Operator Relationship Specialty Start Date End Date Jesse Glover MD [address] [place], [place] 574591 PCP - General 08/05/08 Fabian Espana MD [address] [address] Orthopedics 09/29/20 Injection Press Operator Relationship Specialty Start Date End Date Jesse Glover MD [address] [place], [place] 121141 PCP - General 08/05/08 Fabian Espana MD [address] [place], [place] [address] Orthopedics 09/29/20 Injection Press Operator Relationship Specialty Start Date End Date Jesse Glover MD [address] [facility], [place] [address] PCP - General 08/05/08 Fabian Espana MD [address] [place] [address] Orthopedics 09/29/20 Injection Press Operator Relationship Specialty Start Date End Date Jesse Glover MD [address] [place], [place] 258871 PCP - General 08/05/08 Fabian Espana MD [address] [place] [address] [place] [address] Orthopedics 09/29/20 Injection Press Operator Relationship Specialty Start Date End Date Jesse Glover MD [address] [place], [place] 833631 PCP - General 08/05/08 Fabian Espana MD [address] [place] [address] Orthopedics 09/29/20 Injection Press Operator Relationship Specialty Start Date End Date Jesse Glover MD [address] [place], [place] 125511 PCP - General 08/05/08 Fabian Espana MD [address] [place] [address] Orthopedics 09/29/20 Injection Press Operator Relationship Specialty Start Date End Date Jesse Glover MD [address] [facility] [place] [address] PCP - General 08/05/08 Fabian Espana MD [address] [facility] [place] [address] Orthopedics 09/29/20 Injection Press Operator Relationship Specialty Start Date End Date Jesse Glover MD [address] [place] [address] PCP - General 08/05/08 Fabian Espana MD [address] [place] [address] Orthopedics 09/29/20 Injection Press Operator Relationship Specialty Start Date End Date Jesse Glover MD [address] [place] [address] PCP - General 08/05/08 Fabian Espana MD [address] [place] [address] Orthopedics 09/29/20 Injection Press Operator Relationship Specialty Start Date End Date Jesse Glover MD [address] [facility] [place] [address] PCP - General 08/05/08 Fabian Espana MD [address] [place] [address] Orthopedics 09/29/20 America Johnston, 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 [address] [place] [address] Business Banking Representative Internal Medicine 06/04/24 Injection Press Operator Relationship Specialty Start Date End Date Jesse Glover MD [address] [place] [address] PCP - General 08/05/08 Fabian Espana MD [address] [address] Orthopedics 09/29/20 America Johnston, 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 [address] [place] [address] Business Banking Representative Internal Medicine 06/04/24 Injection Press Operator Relationship Specialty Start Date End Date Jesse Glover MD [address] [place] [address] PCP - General 08/05/08 Fabian Espana MD [address] [address] Orthopedics 09/29/20 America Johnston, 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 [address] [place] [address] Business Banking Representative Internal Medicine 06/04/24 Injection Press Operator Relationship Specialty Start Date End Date Jesse Glover MD [address] [place] [address] PCP - General 08/05/08 Fabian Espana MD [address] [place] [address] Orthopedics 09/29/20 America Johnston, 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 [address] [facility] [place] [address] Business Banking Representative Internal Medicine 06/04/24 Injection Press Operator Relationship Specialty Start Date End Date Jesse Glover MD [address] [facility] [place] [address] PCP - General 08/05/08 Fabian Espana MD [address] [place] [address] Orthopedics 09/29/20 America Johnston, 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 [address] [facility] [place] [address] Business Banking Representative Internal Medicine 06/04/24 Injection Press Operator Relationship Specialty Start Date End Date Jesse Glover MD [address] [facility] [place] [address] PCP - General 08/05/08 Fabian Espana MD [address] [place] [address] Orthopedics 09/29/20 America Johnston, 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 [address] [facility] [place] [address] [facility] Internal Medicine 06/04/24 Injection Press Operator Relationship Specialty Start Date End Date Jesse Glover MD [address] [facility] [place] [address] PCP - General 08/05/08 Fabian Espana MD [address] [place] [address] [place] [address] Orthopedics 09/29/20 America Johnston, 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 [address] [place] [address] [facility] Internal Medicine 06/04/24 Injection Press Operator Relationship Specialty Start Date End Date Jesse Glover MD [address] [place] [address] PCP - General 08/05/08 Fabian Espana MD [address] [place] [address] [place] [address] Orthopedics 09/29/20 America Johnston, 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 [address] [place] [address] [facility] Internal Medicine 06/04/24 Injection Press Operator Relationship Specialty Start Date End Date Jesse Glover MD [address] [facility] [place] [address] PCP - General 08/05/08 Fabian Espana MD [address] [place] [address] Orthopedics 09/29/20 Ameirca Johnston, 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 [address] [facility] [place] [address] Business Banking Representative Internal Medicine 06/04/24 Injection Press Operator Relationship Specialty Start Date End Date Jesse Glover MD [address] [facility] [place] [address] PCP - General 08/05/08 Fabian Espana MD [address] [place] [address] Orthopedics 09/29/20 America Johnston, 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 [address] [facility] [place] [address] Business Banking Representative Internal Medicine 06/04/24 Injection Press Operator Relationship Specialty Start Date End Date Jesse Glover MD [address] [place] [address] PCP - General 08/05/08 Fabian Espana MD [address] [address] Orthopedics 09/29/20 America Johnston, 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 [address] [place] [address] [facility] Internal Medicine 06/04/24 Injection Press Operator Relationship Specialty Start Date End Date Jesse Glover MD [address] [facility] [place] [address] PCP - General 08/05/08 Fabain Espana MD [address] [place] [address] Orthopedics 09/29/20 America Johnston, 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 [address] [facility] [place] [address] Business Banking Representative Internal Medicine 06/04/24 Injection Press Operator Relationship Specialty Start Date End Date Jesse Glover MD [address] [facility] [place] [address] PCP - General 08/05/08 Fabian Espana MD [address] [place] [address] Orthopedics 09/29/20 America Johnston, 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 [address] [facility] [place] [address] Business Banking Representative Internal Medicine 06/04/24 Injection Press Operator Relationship Specialty Start Date End Date Jesse Glover MD [address] [place] [address] PCP - General 08/05/08 Fabian Espana MD [address] [place] [address] [facility] [place] [address] Orthopedics 09/29/20 America Johnston, 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 [address] [facility] [place] [address] Business Banking Representative Internal Medicine 06/04/24 Injection Press Operator Relationship Specialty Start Date End Date Jesse Glover MD [address] [place] [address] PCP - General 08/05/08 Fabian Espana MD [address] [address] Orthopedics 09/29/20 America Johnston, 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 [address] [place] [address] Business Banking Representative Internal Medicine 06/04/24 Injection Press Operator Relationship Specialty Start Date End Date Jesse Glover MD [address] [place] [address] PCP - General 08/05/08 Fabian Espana MD [address] [address] Orthopedics 09/29/20 America Johnston, 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 [address] [place] [address] Business Banking Representative Internal Medicine 06/04/24 Injection Press Operator Relationship Specialty Start Date End Date Jesse Glover MD [address] [place] [address] PCP - General 08/05/08 Fabian Espana MD [address] [address] Orthopedics 09/29/20 America Johnston, 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 [address] [place] [address] Business Banking Representative Internal Medicine 06/04/24 Injection Press Operator Relationship Specialty Start Date End Date Jesse Glover MD [address] [facility] [place] [address] PCP - General 08/05/08 Fabian Espana MD [address] [place] [address] Orthopedics 09/29/20 America Johnston, 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 [address] [facility] [place] [address] [facility] Internal Medicine 06/04/24 Injection Press Operator Relationship Specialty Start Date End Date Jesse Glover MD [address] [facility] [place] [address] PCP - General 08/05/08 Fabian Espana MD [address] [place] [address] Orthopedics 09/29/20 America Johnston, 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 [address] [facility] [place] [address] [facility] Internal Medicine 06/04/24 Injection Press Operator Relationship Specialty Start Date End Date Jesse Glover MD [address] [facility] [place] [address] PCP - General 08/05/08 Fabian Espana MD [address] [place] [address] Orthopedics 09/29/20 America Johnston, 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 [address] [facility] [place] [address] Business Banking Representative Internal Medicine 06/04/24 Injection Press Operator Relationship Specialty Start Date End Date Jesse Glover MD [address] [place] [address] PCP - General 08/05/08 Fabian Espana MD [address] [address] Orthopedics 09/29/20 America Johnston, 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 [address] [place] [address] [facility] Internal Medicine 06/04/24 Injection Press Operator Relationship Specialty Start Date End Date Jesse Glover MD [address] [facility] [place] [address] PCP - General 08/05/08 Fabian Espana MD [address] [address] Orthopedics 09/29/20 America Johnston, 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 [address] [place] [place] [address] [facility] Internal Medicine 06/04/24 Injection Press Operator Relationship Specialty Start Date End Date Jesse Glover MD [address] [facility] [place] [address] PCP - General 08/05/08 Fabian Espana MD [address] [place] [address] Orthopedics 09/29/20 America Johnston, 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 [address] [facility] [place] [address] Business Banking Representative Internal Medicine 06/04/24 Injection Press Operator Relationship Specialty Start Date End Date Jesse Glover MD [address] [facility] [place] [address] PCP - General 08/05/08 Fabian Espana MD [address] [place] [address] Orthopedics 09/29/20 America Johnston, 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 [address] [facility] [place] [address] Business Banking Representative Internal Medicine 06/04/24 Injection Press Operator Relationship Specialty Start Date End Date Jesse Glover MD [address] [facility] [place] [address] PCP - General 08/05/08 Fabian Espana MD [address] [facility] [address] [place] [address] Orthopedics 09/29/20 America Johnston, 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 [address] [facility] [place] [address] [facility] Internal Medicine 06/04/24 Injection Press Operator Relationship Specialty Start Date End Date Jesse Glover MD [address] [facility] [place] [address] PCP - General 08/05/08 Fabian Espana MD [address] [place] [address] Orthopedics 09/29/20 America Johnston, 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 [address] [facility] [place] [address] Business Banking Representative Internal Medicine 06/04/24 Injection Press Operator Relationship Specialty Start Date End Date Jesse Glover MD [address] [facility] [place] [address] PCP - General 08/05/08 Fabian Espana MD [address] [place] [address] Orthopedics 09/29/20 America Johnston, 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 [address] [facility] [place] [address] Business Banking Representative Internal Medicine 06/04/24 Injection Press Operator Relationship Specialty Start Date End Date Jesse Glover MD [address] [facility] [place] [address] PCP - General 08/05/08 Fabian Espana MD [address] [place] [address] Orthopedics 09/29/20 America Johnston, 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 [address] [place] [address] Business Banking Representative Internal Medicine 06/04/24 Injection Press Operator Relationship Specialty Start Date End Date Jesse Glover MD [address] [place] [address] PCP - General 08/05/08 Fabian Espana MD [address] [place] [address] Orthopedics 09/29/20 America Johnston, 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 [address] [place] [address] Business Banking Representative Internal Medicine 06/04/24 Injection Press Operator Relationship Specialty Start Date End Date Jesse Glover MD [address] [place] [address] PCP - General 08/05/08 Fabian Espana MD [address] [place] [address] [place] [address] Orthopedics 09/29/20 America Johnston, 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 [address] [place] [address] Business Banking Representative Internal Medicine 06/04/24 Injection Press Operator Relationship Specialty Start Date End Date Jesse Glover MD [address] [place] [address] PCP - General 08/05/08 Fabian Espana MD [address] [place] [address] Orthopedics 09/29/20 America Johnston, APPLICATIONS PACKAGER.[facility] [address] [facility] [place] [address] Business Banking Representative Internal Medicine 06/04/24 Goals (unrecognized section and content) Goals may be documented in a n alternate sectionGoals may be documented in an alternate sectionGoals may be documented in an alternate sectionGoals may be documented in an alternate section Active Administered Medications - up to 3 most recent administrations Administered Medications (un recognized section and content) Medication Order MAR Action Action Date Dose Rate Site PHENYLephrine 2.5 % 1 Drop (AK-DILATE, PATI-SYNEPHRINE) 1 Drop, BOTH EYES, DIRECTED, Starting on Juanita 10/06/23 at 0830, Until Juanita 10/06/23 at 2028, Administer for dilation PROTECT FROM LIGHT, OPHT CLINIC MED ORDERS Given 10/06/2023 8:30 AM EDT 1 Drop proparacaine 0.5 % 1 Drop (ALCAINE) 1 Drop, BOTH EYES, DIRECTED, Starting on Juanita 10/06/23 at 0830, Until Juanita 10/06/23 at 2028, Administer for pneumo tonometry, tonopen tonometry, or pachymetry. In the event of a proparacaine shortage, administer 1 drop of tetracaine 0.5% ophthalmic drops into both eyes as directed for pneumo tonometry, tonopen tonometry, or pachymetry, OPHT CLINIC MED ORDERS Given 10/06/2023 8:30 AM EDT 1 Drop tropicamide 1 % 1 Drop (MYDRIACYL) 1 Drop, BOTH EYES, DIRECTED, Starting on Juanita 10/06/23 at 0830, Until Juanita 10/06/23 at 2028, Administer for dilation, OPHT CLINIC MED ORDERS Given 10/06/2023 8:30 AM EDT 1 Drop FOR RECORDS PERTAINING TO PATIENTS WHO ARE [...] BE BASED ON THE PRIMARY CLINICAL RECORDS. [facility]. provides no warranty or guarantee of the accuracy or completeness of information in this document.
--- NOTE | 2025-06-17 11:40 | STRESSREP ---
Stress Test Report Date: 06/14/2025 Procedure: Pharmacologic stress nuclear imaging study Indications: Dyspnea on exertion Consent: Per the patient Procedure: The patient underwent pharmacologic (Regadenoson 0.4mg ) evaluation with a peak heart rate of 87 beats per minute (61%predicted maximal heart rate) and a peak blood pressure of 158/70 mmHg. The baseline ECG demonstrated sinus rhythm. The peak pharmacologic ECG did not show any ischemic changes. There were no cardiac dysrhythmias pretest, during pharmacologic infusion, or recovery. There was no complaint of chest discomfort during pharmacologic infusion or recovery. The patient was injected with 11.2 millicuries of technetium 99m Cardiolite and subsequently rest SPECT Cardiolite nuclear imaging was obtained in the horizontal long, vertical long, and short axis views. The patient underwent pharmacologic (Regadenoson) evaluation. The patient was injected with 33.9 millicuries of technetium 99m Cardiolite and subsequently stress SPECT Cardiolite nuclear imaging was obtained in the horizontal long, vertical long, and short axis views. A gated Cardiolite study at peak stress was obtained. The examination was stopped secondary to completion of protocol. Rest and stress SPECT Cardiolite nuclear imaging status post realignment, normalization, and attenuation correction demonstrate no fixed or reversible perfusion defects. There is end systolic thickening and brightening. The gated Cardiolite study demonstrates myocardial thickening and inward wall motion. The reported LVEF is 69%. Impression: 1. Pharmacologic (Regadenoson) evaluation 2. Peak pharmacologic ECG with no ischemic changes. 3. There were no cardiac dysrhythmias pretest, during pharmacologic infusion, or recovery. 5. Rest and stress SPECT Cardiolite nuclear imaging demonstrate relative uniform tracer uptake and myocardial perfusion appearing within normal limits. 6. The gated Cardiolite study reports an LVEF of 69%. This note was generated with [email or web address] software. It may contain incorrect words, spelling, and punctuation that were not noted in checking the note before signing.
== END | disposition home or self-care (01) ==
LOC: CVS 06:49
PROVIDERS: PCP Internal Medicine; Referring Provider Internal Medicine Cardiovascular Disease; Visit Provider Internal Medicine Cardiovascular Disease
DX: R06.09 Other forms of dyspnea (principal); E11.69 Type 2 diabetes mellitus with other specified complication; Z79.4 Long term (current) use of insulin; E11.22 Type 2 diabetes mellitus with diabetic chronic kidney disease; N18.30 Chronic kidney disease, stage 3 unspecified; I12.9 Hypertensive chronic kidney disease with stage 1 through stage 4 chronic kidney disease, or unspecified chronic kidney disease; I71.20 Thoracic aortic aneurysm, without rupture, unspecified; E78.5 Hyperlipidemia, unspecified
CPT/HCPCS: 78452; 93017; 93306; A9500; Q9957; A4216; C8929; J2785